=== PATIENT | male | born 1960 | race Caucasian/White ===

== ENCOUNTER → 2016-06-07 | Outpatient (CLI) | payer BC ==
--- NOTE | 2016-06-08 07:17 | XR ---
EXAMINATION TYPE: XR shoulder complete RT DATE OF EXAM: 06/07/2016 2:21 PM COMPARISON: NONE HISTORY: Pain The osseous structures are intact. There is no acute fracture or dislocation. The AC joint is mildl y narrowed with mild hypertrophic change. IMPRESSION: 1. Mild AC joint arthropathy.
--- NOTE | 2016-06-08 07:19 | XR ---
EXAMINATION TYPE: XR cervical spine limited DATE OF EXAM: 06/07/2016 2:21 PM COMPARISON: NONE HISTORY: Pain Odontoid, frontal, lateral, and bilateral oblique views of the cervical spine are submitted. The odontoid is intact. There are no compression deformities. The prevertebral soft tissue structur es are within normal limits. Diffuse osteopenia noted. Suggestive of interstitial lung disease invol ving the lung apices. There is severe degenerative disc disease C5-6 and C6-C7. Facet arthropathy noted. IMPRESSION: 1. Severe degenerative disc disease C5-C6 and C6-C7 with facet arthropathy. Recommend follow-up MRI..
== END | disposition home or self-care (01) ==
LOC: RADXRYALE 14:02
PROVIDERS: ATTEND Family Medicine
DX: Z68.27 Body mass index [BMI] 27.0-27.9, adult (principal); M12.811 Other specific arthropathies, not elsewhere classified, right shoulder; M50.322 Other cervical disc degeneration at C5-C6 level; M50.323 Other cervical disc degeneration at C6-C7 level; M12.88 Other specific arthropathies, not elsewhere classified, other specified site
CPT/HCPCS: 72040

== ENCOUNTER 2022-03-01 20:10 | Inpatient (IN) | payer BC, OTHER ==
[2022-03-01] MEDS ORDERED: SODIUM CHLORIDE 0.9% 1,000 ML IV STA (20:33)
[2022-03-01] MEDS ORDERED: ASPIRIN 81 MG PO STA (20:33)
[2022-03-01] MEDS ORDERED: HEPARIN SODIUM 1,000 UN/ML (10ML VL) IV ONE (20:33)
[2022-03-01 20:48] LABS: HCT 46.4 % (39.0-53.0); HGB 14.7 gm/dL (13.0-17.5); Hypochromasia Moderate; MCH 27.9 pg (25.0-35.0); MCHC 31.6 g/dL (31.0-37.0); MCV 88.4 fL (80.0-100.0); Mean Platelet Volume 8.9; Platelet Count 470 k/uL (150-450); RBC 5.25 m/uL (4.30-5.90); RDW 13.1 % (11.5-15.5); WBC 36.7 k/uL (3.8-10.6)
[2022-03-01] MEDS: DILTIAZEM 125 MG in SODIUM CHLORIDE 0.9% 100 ML IV SCH (20:51)
[2022-03-01 20:59] LABS: ALT 18 U/L (4-49); AST 18 U/L (17-59); African American GFR (CKD) >90 (>60 ml/min/1.73 sqM); Albumin 3.5 g/dL (3.5-5.0); Alkaline Phosphatase 154 U/L (38-126); Anion Gap 32 mmol/L; Blood Urea Nitrogen 25 mg/dL (9-20); Calcium 8.9 mg/dL (8.4-10.2); Chloride 87 mmol/L (98-107); Magnesium 2.5 mg/dL (1.6-2.3); Non-African American GFR(CKD) >90 (>60 ml/min/1.73 sqM); Sodium 128 mmol/L (137-145); Total Bilirubin 0.8 mg/dL (0.2-1.3); Total Protein 6.9 g/dL (6.3-8.2)
[2022-03-01 21:00] LABS: Amphetamine Screen,Urine Not Detected (NotDetected); Barbiturate Screen,Urine Not Detected (NotDetected); Benzodiazepines Screen,Urine Not Detected (NotDetected); Cocaine Screen,Urine Not Detected (NotDetected); Methadone Screen, Urine Not Detected (NotDetected); Opiate Screen,Urine Not Detected (NotDetected); Oxycodone Screen, Urine Not Detected (NotDetected); Phencyclidine Screen,Urine Not Detected (NotDetected); Tricyclic Antidepressant,Urine Not Detected (NotDetected); Urn Cannabinoid Scrn Not Detected (NotDetected)
[2022-03-01 21:02] LABS: Appearance,Urine Clear (Clear); Bacteria,Urine Occasional /hpf; Bilirubin,Urine Negative (Negative); Blood,Urine Moderate (Negative); Color,Urine Colorless; Glucose,Urine (UA) 4+ (Negative); Hyaline Casts,Urine 7 /lpf (0-2); Leukocyte Esterase,Urine Moderate (Negative); Mucus,Urine Rare /hpf; Nitrite,Urine Negative (Negative); Protein,Urine Trace (Negative); RBC,Urine 15 /hpf (0-5); Specific Gravity,Urine 1.017 (1.001-1.035); Urobilinogen,Urine <2.0 mg/dL (<2.0); WBC,Urine 56 /hpf (0-5)
[2022-03-01 21:03] LABS: Ketones,Urine 4+ (Negative)
[2022-03-01 21:14] LABS: INR 1.1 (<1.2); Partial Thromboplastin Time 23.2 sec (22.0-30.0); Prothrombin Time 11.4 sec (9.0-12.0)
[2022-03-01 21:22] LABS: Band Neutrophils % 6 %; Lymphocytes # (M) 0.73 k/uL (1.0-4.8); Monocytes # (M) 0.73 k/uL (0-1.0); Myelocytes # (M) 0.37 k/uL (0); Myelocytes % 1 %; Neutrophils % (M) 89 %; Nucleated Red Blood Cells 0 /100 WBC (0-0); Total Cells Counted 100
[2022-03-01 21:25] LABS: Carbon Dioxide 9 mmol/L (22-30); Glucose 564 mg/dL (74-99); Potassium 2.7 mmol/L (3.5-5.1)
[2022-03-01] MEDS: HEPARIN SOD,PORK IN 0.45% NACL 25,000 UNIT in 0.45% NACL 1 250ML.BAG IV SCH (21:44)
[2022-03-01] MEDS ORDERED: ADENOSINE 3 MG/ML 2 ML VIAL IVP STA ×3 (21:49→21:50)
--- NOTE | 2022-03-01 22:01 | XR ---
EXAMINATION TYPE: XR chest 1V portable DATE OF EXAM: 03/01/2022 9:45 PM COMPARISON: None TECHNIQUE: XR chest 1V portable Frontal view of the chest. CLINICAL INDICATION:Male, 62 years old with history of dysrhythmia; FINDINGS: Lungs/Pleura: There is no evidence of pleural effusion, focal consolidation, or pneumothorax. Eventr ation of the right diaphragm. Pulmonary vascularity: Unremarkable. Heart/mediastinum: Cardiomediastinal silhouette is unremarkable. Musculoskeletal: No acute osseous pathology. IMPRESSION: No acute cardiopulmonary disease/process.
[2022-03-01] MEDS: POTASSIUM CHLORIDE 10 MEQ in WATER FOR INJECTION 1 100ML.BAG IVPB SCH (22:24)
[2022-03-01] MEDS ORDERED: TEMAZEPAM 7.5 MG CAP PO PRN (23:14)
[2022-03-01] MEDS ORDERED: NALOXONE 0.4 MG/ML 1 ML VIAL IV PRN (23:14)
[2022-03-01] MEDS ORDERED: ALPRAZolam 0.25 MG TAB PO PRN (23:14)
[2022-03-01] MEDS ORDERED: ONDANSETRON 4 MG/2 ML VIAL IVP PRN (23:14)
--- NOTE | 2022-03-01 23:14 | ED ---
Arrhythmia/Palpitations HPI - General Chief Complaint: Arrhythmia/Palpitations Stated Complaint: Afib/RVR Time Seen by Provider: 03/01/22 20:12 Source: EMS Mode of arrival: EMS Limitations: no limitations - History of Present Illness Initial Comments: Patient presents with palpitations or shortness of breath. His symptoms have been present for couple hours. Nothing makes it better or worse. He wasn't doing anything in this began. He denies any sick contacts. He has no pain or swelling the arms or legs. He has no nausea or vomiting. He has no diaphoresis. He has no focal weakness. He has no headache. He has no neck pain or stiffness. - Related Data Home Medications Medication Instructions Recorded Confirmed Dextroamphetamine/Amphetamine 30 mg PO BID 03/01/22 03/01/22 [Dextroamphetamine/Amphetamine 30 mg Tab] Allergies Allergy/AdvReac Type Severity Reaction Status Date / Time No Known Allergies Allergy Verified 03/01/22 22:26 Review of Systems ROS Statement: Those systems with pertinent positive or pertinent negative responses have been documented in the HPI. ROS Other: All systems not noted in ROS Statement are negative. Past Medical History Past Medical History: Diabetes Mellitus History of Any Multi-Drug Resistant Organisms: None Reported Past Surgical History: Orthopedic Surgery Past Psychological History: No Psychological Hx Reported Smoking Status: Current every day smoker Past Alcohol Use History: Rare Past Drug Use History: None Reported General Exam Limitations: no limitations General appearance: alert, in no apparent distress Head exam: Present: atraumatic, normocephalic, normal inspection Eye exam: Present: normal appearance, PERRL, EOMI. Absent: scleral icterus, conjunctival injection, periorbital swelling ENT exam: Present: normal exam, mucous membranes moist Neck exam: Present: normal inspection. Absent: tenderness, meningismus, lymphadenopathy Respiratory exam: Present: normal lung sounds bilaterally. Absent: respiratory distress, wheezes, rales, rhonchi, stridor Cardiovascular Exam: Present: tachycardia, irregular rhythm, normal heart so unds. Absent: systolic murmur, diastolic murmur, rubs, gallop, clicks GI/Abdominal exam: Present: soft, normal bowel sounds. Absent: distended, tenderness, guarding, rebound, rigid Extremities exam: Present: normal inspection, full ROM, normal capillary refill. Absent: tenderness, pedal edema, joint swelling, calf tenderness Back exam: Present: normal inspection Neurological exam: Present: alert, oriented X3, CN II-XII intact Psychiatric exam: Present: normal affect, normal mood Skin exam: Present: warm, dry, intact, normal color. Absent: rash Course Vital Signs 03/01/22 03/01/22 03/01/22 20:11 20:37 20:40 Temperature 97.9 F Pulse Rate 170 H 105 H Respiratory 18 24 22 Rate Blood Pressure 146/89 197/107 188/95 O2 Sat by Pulse 98 99 Oximetry 03/01/22 03/01/22 03/01/22 21:00 21:20 21:40 Temperature Pulse Rate 107 H 126 H 113 H Respiratory 22 24 Rate Blood Pressure 184/103 178/68 150/92 O2 Sat by Pulse 100 Oximetry 03/01/22 21:57 Temperature Pulse Rate 113 H Respiratory Rate Blood Pressure O2 Sat by Pulse Oximetry EKG Findings - EKG Comments: EKG Findings:: Twelve-lead EKG shows ventricular 171 bpm, no P waves, QRS comp venita are wide, no ST elevation or depression, interpreted by me as SVT. Medical Decision Making - Medical Decision Making Patient presents with SVT. He is given subsequent doses of IV adenosine. Patient ultimately converted to atrial fibrillation with rapid ventricular response. Subsequently I started the patient on IV heparin and IV Cardizem. Patient will be admitted to the hospital. - Lab Data Result diagrams: 03/01/22 20:15 03/01/22 20:15 Lab Results 03/01/22 03/01/22 03/01/22 Range/Units 20:15 20:15 20:15 WBC 36.7 H (3.8-10.6) k/uL RBC 5.25 (4.30-5.90) m/uL Hgb 14.7 (13.0-17.5) gm/dL Hct 46.4 (39.0-53.0) % MCV 88.4 (80.0-100.0) fL MCH 27.9 (25.0-35.0) pg MCHC 31.6 (31.0-37.0) g/dL RDW 13.1 (11.5-15.5) % Plt Count 470 H (150-450) k/uL MPV 8.9 Neutrophils % Not Reportable Neutrophils % (Manual) 89 % Band Neuts % (Manual) 6 % Lymphocytes % Not Reportable Lymphocytes % (Manual) 2 % Monocytes % Not Reportable Monocytes % (Manual) 2 % Eosinophils % Not Reportable Basophils % Not Reportable Myelocytes % 1 % Neutrophils # Not Reportable Neutrophils # (Manual) 34.80 H (1.3-7.7) k/uL Lymphocytes # Not Reportable Lymphocytes # (Manual) 0.73 L (1.0-4.8) k/uL Monocytes # Not Reportable Monocytes # (Manual) 0.73 (0-1.0) k/uL Eosinophils # Not Reportable Basophils # Not Reportable Myelocytes # (Manual) 0.37 H (0) k/uL Nucleated RBCs 0 (0-0) /100 WBC Manual Slide Review Performed Hypochromasia Moderate PT 11.4 (9.0-12.0) sec INR 1.1 (<1.2) APTT 23.2 (22.0-30.0) sec Sodium 128 L (137-145) mmol/L Potassium 2.7 L* (3.5-5.1) mmol/L Chloride 87 L (98-107) mmol/L Carbon Dioxide 9 L* (22-30) mmol/L Anion Gap 32 mmol/L BUN 25 H (9-20) mg/dL Creatinine 0.89 (0.66-1.25) mg/dL Est GFR (CKD-EPI)AfAm >90 (>60 ml/min/1.73 sqM) Est GFR (CKD-EPI)NonAf >90 (>60 ml/min/1.73 sqM) Glucose 564 H* (74-99) mg/dL Calcium 8.9 (8.4-10.2) mg/dL Magnesium 2.5 H (1.6-2.3) mg/dL Total Bilirubin 0.8 (0.2-1.3) mg/dL AST 18 (17-59) U/L ALT 18 (4-49) U/L Alkaline Phosphatase 154 H (38-126) U/L Troponin I (0.000-0.034) ng/mL Total Protein 6.9 (6.3-8.2) g/dL Albumin 3.5 (3.5-5.0) g/dL Urine Color Urine Appearance (Clear) Urine pH (5.0-8.0) Ur Specific Dyer (1.001-1.035) Urine Protein (Negative) Urine Glucose (UA) (Negative) Urine Ketones (Negative) Urine Blood (Negative) Urine Nitrite (Negative) Urine Bilirubin (Negative) Urine Urobilinogen (<2.0) mg/dL Ur Leukocyte Esterase (Negative) Urine RBC (0-5) /hpf Urine WBC (0-5) /hpf Urine Bacteria (None) /hpf Hyaline Casts (0-2) /lpf Urine Mucus (None) /hpf Urine Opiates Screen (NotDetected) Ur Oxycodone Screen (NotDetected) Urine Methadone Screen (NotDetected) Ur Propoxyphene Screen (NotDetected) Ur Barbiturates Screen (NotDetected) U Tricyclic Antidepress (NotDetected) Ur Phencyclidine Scrn (NotDetected) Ur Amphetamines Screen (NotDetected) U Methamphetamines Scrn (NotDetected) U Benzodiazepines Scrn (NotDetected) Urine Cocaine Screen (NotDetected) U Marijuana (THC) Screen (NotDetected) 03/01/22 03/01/22 Range/Units 20:15 20:37 WBC (3.8-10.6) k/uL RBC (4.30-5.90) m/uL Hgb (13.0-17.5) gm/dL Hct (39.0-53.0) % MCV (80.0-100.0) fL MCH (25.0-35.0) pg MCHC (31.0-37.0) g/dL RDW (11.5-15.5) % Plt Count (150-450) k/uL MPV Neutrophils % Neutrophils % (Manual) % Band Neuts % (Manual) % Lymphocytes % Lymphocytes % (Manual) % Monocytes % Monocytes % (Manual) % Eosinophils % Basophils % Myelocytes % % Neutrophils # Neutrophils # (Manual) (1.3-7.7) k/uL Lymphocytes # Lymphocytes # (Manual) (1.0-4.8) k/uL Monocytes # Monocytes # (Manual) (0-1.0) k/uL Eosinophils # Basophils # Myelocytes # (Manual) (0) k/uL Nucleated RBCs (0-0) /100 WBC Manual Slide Review Hypochromasia PT (9.0-12.0) sec INR (<1.2) APTT (22.0-30.0) sec Sodium (137-145) mmol/L Potassium (3.5-5.1) mmol/L Chloride (98-107) mmol/L Carbon Dioxide (22-30) mmol/L Anion Gap mmol/L BUN (9-20) mg/dL Creatinine (0.66-1.25) mg/dL Est GFR (CKD-EPI)AfAm (>60 ml/min/1.73 sqM) Est GFR (CKD-EPI)NonAf (>60 ml/min/1.73 sqM) Glucose (74-99) mg/dL Calcium (8.4-10.2) mg/dL Magnesium (1.6-2.3) mg/dL Total Bilirubin (0.2-1.3) mg/dL AST (17-59) U/L ALT (4-49) U/L Alkaline Phosphatase (38-126) U/L Troponin I 0.028 (0.000-0.034) ng/mL Total Protein (6.3-8.2) g/dL Albumin (3.5-5.0) g/dL Urine Color Colorless Urine Appearance Clear (Clear) Urine pH 5.0 (5.0-8.0) Ur Specific Dyer 1.017 (1.001-1.035) Urine Protein Trace H (Negative) Urine Glucose (UA) 4+ H (Negative) Urine Ketones 4+ H (Negative) Urine Blood Moderate H (Negative) Urine Nitrite Negative (Negative) Urine Bilirubin Negative (Negative) Urine Urobilinogen <2.0 (<2.0) mg/dL Ur Leukocyte Esterase Moderate H (Negative) Urine RBC 15 H (0-5) /hpf Urine WBC 56 H (0-5) /hpf Urine Bacteria Occasional H (None) /hpf Hyaline Casts 7 H (0-2) /lpf Urine Mucus Rare H (None) /hpf Urine Opiates Screen Not Detected (NotDetected) Ur Oxycodone Screen Not Detected (NotDetected) Urine Methadone Screen Not Detected (NotDetected) Ur Propoxyphene Screen Not Detected (NotDetected) Ur Barbiturates Screen Not Detected (NotDetected) U Tricyclic Antidepress Not Detected (NotDetected) Ur Phencyclidine Scrn Not Detected (NotDetected) Ur Amphetamines Screen Not Detected (NotDetected) U Methamphetamines Scrn Not Detected (NotDetected) U Benzodiazepines Scrn Not Detected (NotDetected) Urine Cocaine Screen Not Detected (NotDetected) U Marijuana (THC) Screen Not Detected (NotDetected) Critical Care Time Critical Care Time: Yes (Initiation of IV heparin and Cardizem) Total Critical Care Time: 35 Disposition Clinical Impression: Atrial fibrillation Disposition: ADMITTED IP TO THIS [facility] Condition: Serious Is patient prescribed a controlled substance at d/c from ED?: No Referrals: Benjamin Mendez MD [Primary Care Provider] - 1-2 days
[2022-03-01 23:38] LABS: Glucose,Whole Blood 516 mg/dL (70-110)
[2022-03-02] MEDS: POTASSIUM CHLORIDE 10 MEQ in WATER FOR INJECTION 1 100ML.BAG IVPB SCH ×9 (00:10→14:10)
[2022-03-02] MEDS: SODIUM CHLORIDE 0.9% 1,000 ML IV SCH ×9 (00:25→22:19)
[2022-03-02] MEDS ORDERED: SODIUM CHLORIDE 0.9% 1,000 ML IV STA (01:27)
[2022-03-02 01:47] LABS: VBG PH 7.21 (7.31-7.41)
[2022-03-02 01:57] LABS: ALT 16 U/L (4-49); AST 14 U/L (17-59); African American GFR (CKD) >90 (>60 ml/min/1.73 sqM); Albumin 2.7 g/dL (3.5-5.0); Alkaline Phosphatase 118 U/L (38-126); Anion Gap 25 mmol/L; Blood Urea Nitrogen 31 mg/dL (9-20); Calcium 8.2 mg/dL (8.4-10.2); Chloride 95 mmol/L (98-107); Glucose 490 mg/dL (74-99); Magnesium 2.3 mg/dL (1.6-2.3); Non-African American GFR(CKD) >90 (>60 ml/min/1.73 sqM); Phosphorus 2.9 mg/dL (2.5-4.5); Potassium 3.3 mmol/L (3.5-5.1); Sodium 129 mmol/L (137-145); Total Bilirubin 0.5 mg/dL (0.2-1.3); Total Protein 5.7 g/dL (6.3-8.2)
[2022-03-02 02:00] LABS: Carbon Dioxide 9 mmol/L (22-30)
[2022-03-02] MEDS: INSULIN REGULAR 100 UNIT in SODIUM CHLORIDE 0.9% 100 ML IV SCH ×2 (03:04→17:30)
[2022-03-02 04:02] LABS: Glucose,Whole Blood 399 mg/dL (70-110)
[2022-03-02 04:29] LABS: African American GFR (CKD) >90 (>60 ml/min/1.73 sqM); Anion Gap 24 mmol/L; Blood Urea Nitrogen 33 mg/dL (9-20); Chloride 99 mmol/L (98-107); Glucose 394 mg/dL (74-99); Non-African American GFR(CKD) >90 (>60 ml/min/1.73 sqM); Sodium 131 mmol/L (137-145)
[2022-03-02 04:43] LABS: Carbon Dioxide 8 mmol/L (22-30); Potassium 2.5 mmol/L (3.5-5.1)
[2022-03-02] MEDS ORDERED: Potassium Replacement Protocol 1 EACH MISC MISCELLANE PRN (05:17)
[2022-03-02 05:23] LABS: Glucose,Whole Blood 422 mg/dL (70-110)
[2022-03-02 06:39] LABS: Glucose,Whole Blood 374 mg/dL (70-110)
[2022-03-02 06:47] LABS: Basophils # (A) 0.2 k/uL (0-0.2); Basophils % (A) 1 %; Eosinophils % (A) 0 %; HCT 33.9 % (39.0-53.0); Hypochromasia Moderate; Lymphocytes # (A) 0.8 k/uL (1.0-4.8); Lymphocytes % (A) 2 %; MCH 28.4 pg (25.0-35.0); MCHC 32.5 g/dL (31.0-37.0); MCV 87.3 fL (80.0-100.0); Mean Platelet Volume 7.8; Monocytes # (A) 0.9 k/uL (0-1.0); Monocytes % (A) 3 %; Neutrophils # (A) 30.1 k/uL (1.3-7.7); Neutrophils % (A) 94 %; Platelet Count 383 k/uL (150-450); RBC 3.89 m/uL (4.30-5.90); RDW 13.2 % (11.5-15.5); WBC 32.1 k/uL (3.8-10.6)
[2022-03-02 07:05] LABS: Glucose,Whole Blood 499 mg/dL (70-110)
[2022-03-02] MEDS: POTASSIUM BICARBONATE/CIT AC 20 MEQ TABLET.EFF PO SCH ×3 (07:28→12:19)
--- NOTE | 2022-03-02 07:39 | XR ---
EXAMINATION TYPE: XR chest 1V portable DATE OF EXAM: 03/02/2022 7:29 AM COMPARISON: Chest radiographs from 03/01/2022. TECHNIQUE: XR chest 1V portable Frontal view of the chest. CLINICAL INDICATION:Male, 62 years old with history of NG tube placement; FINDINGS: Lungs/Pleura: There is no evidence of pleural effusion, focal consolidation, or pneumothorax. Eventr ation of the right diaphragm. Pulmonary vascularity: Unremarkable. Heart/mediastinum: Cardiomediastinal silhouette is unremarkable. Musculoskeletal: No acute osseous pathology. Other findings: None Lines/Tubes: Nasogastric tube with its distal tip and side-port projecting under the diaphragm in appropriate posi tion. IMPRESSION: 1. No acute cardiopulmonary disease/process. 2. NG tube in appropriate position.
[2022-03-02] MEDS: HEPARIN SODIUM 1,000 UN/ML (10ML VL) IV PRN ×3 (07:48→19:01)
[2022-03-02] MEDS: PANTOPRAZOLE 40 MG/10 ML VIAL IV SCH (07:48)
[2022-03-02 07:55] LABS: Rouleaux Present
[2022-03-02 08:07] LABS: Glucose,Whole Blood 400 mg/dL (70-110)
[2022-03-02 08:51] LABS: African American GFR (CKD) >90 (>60 ml/min/1.73 sqM); Anion Gap 22 mmol/L; Blood Urea Nitrogen 40 mg/dL (9-20); Chloride 105 mmol/L (98-107); Glucose 352 mg/dL (74-99); Non-African American GFR(CKD) >90 (>60 ml/min/1.73 sqM); Phosphorus 2.2 mg/dL (2.5-4.5); Potassium 3.4 mmol/L (3.5-5.1); Sodium 135 mmol/L (137-145)
[2022-03-02 08:54] LABS: Appearance,Urine Cloudy (Clear); Bacteria,Urine Rare /hpf; Bilirubin,Urine Negative (Negative); Blood,Urine Trace (Negative); Color,Urine Light Yellow; Glucose,Urine (UA) 4+ (Negative); Leukocyte Esterase,Urine Large (Negative); Mucus,Urine Rare /hpf; Nitrite,Urine Negative (Negative); PH, Urine 5.5 (5.0-8.0); Protein,Urine Trace (Negative); RBC,Urine 5 /hpf (0-5); Specific Gravity,Urine 1.017 (1.001-1.035); Squamous Epithelial Cell,Urine <1 /hpf (0-4); Urobilinogen,Urine <2.0 mg/dL (<2.0); WBC,Urine 98 /hpf (0-5)
[2022-03-02 08:54] LABS: Carbon Dioxide 8 mmol/L (22-30)
[2022-03-02 08:57] LABS: Ketones,Urine 4+ (Negative)
[2022-03-02 09:05] LABS: Glucose,Whole Blood 288 mg/dL (70-110)
[2022-03-02] MEDS: METOPROLOL TARTRATE 50 MG TAB PO SCH ×2 (09:31→20:05)
[2022-03-02 09:54] LABS: Glucose,Whole Blood 267 mg/dL (70-110)
[2022-03-02 11:05] LABS: Glucose,Whole Blood 163 mg/dL (70-110)
--- NOTE | 2022-03-02 11:30 | P.CNPUL ---
History of Present Illness Consult date: 03/02/22 Requesting physician: Jerardo Guillen Reason for consult: dyspnea, other (Critical care management) Chief complaint: Palpitations, shortness of breath History of present illness: This is 62-year-old male patient who follows with Dr. Mendez as his primary care provider. He has history of diabetes mellitus, chronic and ongoing tobacco dependence, ADHD. He presented here to the emergency room yesterday with a 2 hour history of palpitations and shortness of breath. No precipitating factors. No relieving factors. No nausea vomiting. No chest pain. No dizziness or lightheadedness. He was felt to be in SVT and was treated with a R[place] with subsequent conversion to atrial fibrillation with a rapid ventricular response. The patient was also noted to be in diabetic ketoacidosis with initial glucose of 564. Positive acetone. Drug screen negative. White count 32. Hemoglobin 11.0. He was 383. Sodium 135. Potassium 3.4. Chloride 105. Bicarbonate8. Anion gap 22. BUN 40. Creatinine 0.67. Troponin negative 2. ProBNP 1270. Urinalysis with 4+ ketones, large leukocyte esterase, few WBCs. Chest x-ray reveals no acute pulmonary process. Nasogastric tube in place. The patient is seen today in the ICU. He is resting fairly comfortably in bed. He is maintaining good O2 saturations in the 90s on room air. Arousable. He is continued on Cardizem drip at 5 mg per hour. Insulin drip at 8 units per hour. Heparin drip per weight base protocol. 0.9% normal saline at 200 mL per hour. Remains in the DKA protocol. Currently on ceftriaxone. Pro-calcitonin pending. Review of Systems REVIEW OF SYSTEMS: CONSTITUTIONAL: Denies any recent significant weight loss or weight gain. EYES: Denies change in vision. EARS, NOSE, MOUTH, THROAT: Denies headaches, denies sore throat. CARDIOVASCULAR: Positive for palpitations or syncopal episodes. RESPIRATORY: Positive for shortness of breath, no cough, congestion or hemoptysis. GASTROINTESTINAL: Denies change in appetite, denies abdominal pain GENITOURINARY: Denies hematuria, denies infections. MUSKULOSKELETAL: Denies pain, denies swelling. INTEGUMENTARY: Denies rash, denies eczema. NEUROLOGICAL: Denies recent memory loss, no recent seizure activity. PSYCHIATRIC: Denies anxiety, denies depression. HEMATOLOGIC/LYMPHATIC: Denies anemia, denies enlarged lymph nodes. Past Medical History Past Medical History: Diabetes Mellitus History of Any Multi-Drug Resistant Organisms: None Reported Past Surgical History: Orthopedic Surgery Additional Past Surgical History / Comment(s): back pain son states pt recently "slipped a disc" taking gabapentin. Past Psychological History: No Psychological Hx Reported Smoking Status: Current every day smoker Past Alcohol Use History: Rare Past Drug Use History: None Reported Medications and Allergies Home Medications Medication Instructions Recorded Confirmed Type Dextroamphetamine/Amphetamine 30 mg PO BID 03/01/22 03/01/22 History [Dextroamphetamine/Amphetamine 30 mg Tab] sitaGLIPtin [Januvia] 100 mg PO DAILY 03/02/22 03/02/22 History Allergies Allergy/AdvReac Type Severity Reaction Status Date / Time No Known Allergies Allergy Verified 03/01/22 22:26 Physical Exam Vitals: Vital Signs Temp Pulse Resp BP Pulse Ox 03/02/22 11:00 101 H 45 H 108/72 98 03/02/22 10:40 105 H 46 H 112/69 98 03/02/22 10:20 102 H 43 H 118/71 98 03/02/22 10:00 101 H 45 H 119/71 98 03/02/22 09:40 116 H 34 H 130/71 98 03/02/22 09:20 108 H 47 H 118/72 97 03/02/22 09:00 113 H 45 H 122/62 98 03/02/22 08:40 112 H 41 H 112/73 98 03/02/22 08:20 113 H 45 H 130/86 98 03/02/22 08:00 97.8 F 114 H 44 H 140/79 97 03/02/22 07:40 112 H 45 H 116/79 97 03/02/22 07:20 114 H 42 H 124/71 98 03/02/22 07:13 97.9 F 112 H 42 H 110/91 98 03/02/22 06:40 143/74 03/02/22 06:00 113 H 46 H 153/72 03/02/22 05:40 106 H 45 H 152/81 03/02/22 05:20 106 H 40 H 146/72 100 03/02/22 05:00 105 H 44 H 154/74 100 03/02/22 04:40 105 H 43 H 149/78 03/02/22 04:20 98.3 F 104 H 46 H 148/83 03/02/22 04:00 105 H 45 H 158/81 03/02/22 03:40 105 H 44 H 172/87 03/02/22 03:20 109 H 43 H 138/85 03/02/22 03:00 106 H 45 H 173/80 03/02/22 02:40 112 H 36 H 158/84 99 03/02/22 02:20 110 H 40 H 152/81 100 03/02/22 02:00 105 H 43 H 160/85 98 03/02/22 01:40 106 H 42 H 158/88 99 03/02/22 01:20 112 H 36 H 99 03/02/22 01:00 108 H 36 H 134/90 98 03/02/22 00:40 112 H 40 H 158/83 99 03/02/22 00:20 108 H 40 H 130/76 99 03/02/22 00:00 110 H 32 H 153/109 03/01/22 23:40 113 H 26 H 174/82 03/01/22 23:20 110 H 26 H 164/106 03/01/22 23:00 107 H 24 157/100 03/01/22 22:40 109 H 22 147/91 03/01/22 22:20 113 H 24 145/90 03/01/22 22:00 109 H 24 144/93 03/01/22 21:57 113 H 03/01/22 21:40 113 H 150/92 03/01/22 21:20 126 H 24 178/68 03/01/22 21:00 107 H 22 184/103 100 03/01/22 20:40 105 H 22 188/95 99 03/01/22 20:37 24 197/107 03/01/22 20:11 97.9 F 170 H 18 146/89 98 Intake and Output 03/01/22 03/02/22 03/02/22 22:59 06:59 14:59 Intake Total 12.348 1101.750 Output Total 1560 Balance 12.348 -458.250 Intake: IV 1000 Sodium Chloride 0.9% 1, 1000 000 ml @ 200 mls/hr IV . Q5H [facility] Rx#:[id number] Intake, IV Titration 12.348 101.750 Amount Heparin Sod,Pork in 0.45% 83.893 NaCl 25,000 unit In 0.45 % NaCl 1 250ml.bag @ 12 UNITS/KG/HR 8.546 mls/hr IV .Q24H [facility] Rx#: [id number] Insulin Regular 100 unit 12.348 17.857 In Sodium Chloride 0.9% 100 ml @ 0.1 UNITS/KG/HR 7.193 mls/hr IV .Q14H3M [facility] Rx#:[id number] Output: Urine 1560 Other: Voiding Method Indwelling Catheter Weight 71.214 kg 71.214 kg GENERAL EXAM: Alert, disheveled, thin 62-year-old male, on room air, fairly comfortable in no apparent distress. HEAD: Normocephalic. EYES: Normal reaction of pupils, equal size. NOSE: Clear with pink turbinates. THROAT: No erythema or exudates. NECK: No masses, no JVD. CHEST: No chest wall deformity. LUNGS: Equal air entry with no crackles, wheeze, rhonchi or dullness. CVS: S1 and S2 normal with no audible murmur, irregular rhythm. ABDOMEN: No hepatosplenomegaly, normal bowel sounds, no guarding or rigidity. SPINE: No scoliosis or deformity SKIN: No rashes CENTRAL NERVOUS SYSTEM: No focal deficits, tone is normal in all 4 extremities. EXTREMITIES: There is no peripheral edema. No clubbing, no cyanosis. Peripheral pulses are intact. Results - Laboratory Findings CBC and BMP: 03/02/22 06:40 03/02/22 07:54 PT/INR, D-dimer PT 11.4 sec (9.0-12.0) 03/01/22 20:15 INR 1.1 (<1.2) 03/01/22 20:15 Abnormal lab findings: Abnormal Labs 03/01/22 03/01/22 03/01/22 20:15 20:15 20:37 WBC 36.7 H RBC Hgb Hct Plt Count 470 H Neutrophils # Neutrophils # (Manual) 34.80 H Lymphocytes # Lymphocytes # (Manual) 0.73 L Myelocytes # (Manual) 0.37 H VBG pH VBG pCO2 VBG HCO3 Sodium 128 L Potassium 2.7 L* Chloride 87 L Carbon Dioxide 9 L* BUN 25 H Glucose 564 H* POC Glucose (mg/dL) Calcium Phosphorus Magnesium 2.5 H AST Alkaline Phosphatase 154 H Total Protein Albumin Urine Protein Trace H Urine Glucose (UA) 4+ H Urine Ketones 4+ H Urine Blood Moderate H Ur Leukocyte Esterase Moderate H Urine RBC 15 H Urine WBC 56 H Urine WBC Clumps Urine Bacteria Occasional H Hyaline Casts 7 H Urine Mucus Rare H 03/01/22 03/02/22 03/02/22 23:36 01:18 01:24 WBC RBC Hgb Hct Plt Count Neutrophils # Neutrophils # (Manual) Lymphocytes # Lymphocytes # (Manual) Myelocytes # (Manual) VBG pH 7.21 L VBG pCO2 21 L VBG HCO3 8 L* Sodium 129 L Potassium 3.3 L Chloride 95 L Carbon Dioxide 9 L* BUN 31 H Glucose 490 H POC Glucose (mg/dL) 516 H Calcium 8.2 L Phosphorus Magnesium AST 14 L Alkaline Phosphatase Total Protein 5.7 L Albumin 2.7 L Urine Protein Urine Glucose (UA) Urine Ketones Urine Blood Ur Leukocyte Esterase Urine RBC Urine WBC Urine WBC Clumps Urine Bacteria Hyaline Casts Urine Mucus 03/02/22 03/02/22 03/02/22 03:59 03:59 04:01 WBC RBC Hgb Hct Plt Count Neutrophils # Neutrophils # (Manual) Lymphocytes # Lymphocytes # (Manual) Myelocytes # (Manual) VBG pH VBG pCO2 VBG HCO3 Sodium 131 L Potassium 2.5 L* Chloride Carbon Dioxide 8 L* BUN 33 H Glucose 394 H POC Glucose (mg/dL) 399 H Calcium Phosphorus 2.3 L Magnesium AST Alkaline Phosphatase Total Protein Albumin Urine Protein Urine Glucose (UA) Urine Ketones Urine Blood Ur Leukocyte Esterase Urine RBC Urine WBC Urine WBC Clumps Urine Bacteria Hyaline Casts Urine Mucus 03/02/22 03/02/22 03/02/22 05:22 06:37 06:40 WBC 32.1 H RBC 3.89 L Hgb 11.0 L D Hct 33.9 L Plt Count Neutrophils # 30.1 H Neutrophils # (Manual) Lymphocytes # 0.8 L Lymphocytes # (Manual) Myelocytes # (Manual) VBG pH VBG pCO2 VBG HCO3 Sodium Potassium Chloride Carbon Dioxide BUN Glucose POC Glucose (mg/dL) 422 H 374 H Calcium Phosphorus Magnesium AST Alkaline Phosphatase Total Protein Albumin Urine Protein Urine Glucose (UA) Urine Ketones Urine Blood Ur Leukocyte Esterase Urine RBC Urine WBC Urine WBC Clumps Urine Bacteria Hyaline Casts Urine Mucus 03/02/22 03/02/22 03/02/22 07:03 07:54 08:06 WBC RBC Hgb Hct Plt Count Neutrophils # Neutrophils # (Manual) Lymphocytes # Lymphocytes # (Manual) Myelocytes # (Manual) VBG pH VBG pCO2 VBG HCO3 Sodium 135 L Potassium 3.4 L Chloride Carbon Dioxide 8 L* BUN 40 H Glucose 352 H POC Glucose (mg/dL) 499 H 400 H Calcium Phosphorus 2.2 L Magnesium AST Alkaline Phosphatase Total Protein Albumin Urine Protein Urine Glucose (UA) Urine Ketones Urine Blood Ur Leukocyte Esterase Urine RBC Urine WBC Urine WBC Clumps Urine Bacteria Hyaline Casts Urine Mucus 03/02/22 03/02/22 03/02/22 08:12 09:05 09:52 WBC RBC Hgb Hct Plt Count Neutrophils # Neutrophils # (Manual) Lymphocytes # Lymphocytes # (Manual) Myelocytes # (Manual) VBG pH VBG pCO2 VBG HCO3 Sodium Potassium Chloride Carbon Dioxide BUN Glucose POC Glucose (mg/dL) 288 H 267 H Calcium Phosphorus Magnesium AST Alkaline Phosphatase Total Protein Albumin Urine Protein Trace H Urine Glucose (UA) 4+ H Urine Ketones 4+ H Urine Blood Trace H Ur Leukocyte Esterase Large H Urine RBC Urine WBC 98 H Urine WBC Clumps Few H Urine Bacteria Rare H Hyaline Casts Urine Mucus Rare H 03/02/22 11:04 WBC RBC Hgb Hct Plt Count Neutrophils # Neutrophils # (Manual) Lymphocytes # Lymphocytes # (Manual) Myelocytes # (Manual) VBG pH VBG pCO2 VBG HCO3 Sodium Potassium Chloride Carbon Dioxide BUN Glucose POC Glucose (mg/dL) 163 H Calcium Phosphorus Magnesium AST Alkaline Phosphatase Total Protein Albumin Urine Protein Urine Glucose (UA) Urine Ketones Urine Blood Ur Leukocyte Esterase Urine RBC Urine WBC Urine WBC Clumps Urine Bacteria Hyaline Casts Urine Mucus - Diagnostic Findings Chest x-ray: image reviewed Assessment and Plan Assessment: Acute diabetic ketoacidosis Leukocytosis Hypokalemia Anion gap metabolic acidosis secondary to above New onset atrial fibrillation with rapid ventricular response Urinary tract infection History of diabetes mellitus Chronic and ongoing tobacco dependence History of ADHD Plan: The patient was seen and evaluated Chest x-ray, EKG, labs and medications reviewed Stable from the pulmonary standpoint, on room air Continue Cardizem drip, heparin drip Continue insulin drip, DKA protocol Continue ceftriaxone, urine culture pending Pro calcitonin pending Replace electrolytes Continue to monitor here in the ICU We will continue to follow and make further recommendations based on his clinical status I have personally seen and examined the patient, performed the documentation and the assessment and plan as written. Number of minutes spent on the visit: 20.
[2022-03-02] MEDS: D5-0.45% NACL WITH KCL 20MEQ/L 1,000 ML IV SCH ×2 (11:49→18:37)
[2022-03-02 12:05] LABS: Glucose,Whole Blood 130 mg/dL (70-110)
--- NOTE | 2022-03-02 12:20 | CA ---
Transthoracic Echo Report Name: Misael Langley Age: 62 Gender: M : 1960 Exam Date: 03/02/2022 11:00 Exam Location: [facility] Echo Ht (in): 69 Wt (lb): 157 Ordering Physician: Shahid Maldonado MD ([id number]) Attending/Referring Phys: [employer] Product Manager Riya Oneil RDCS Procedure CPT: Indications: assess lv fuction dka, a flutter Cardiac Hx: Views obtained subcostal Technical Quality: Fair Contrast 1: Total Dose (mL): Contrast 2: Total Dose (mL): MEASUREMENTS (Male / Female) Normal Values 2D ECHO LV Diastolic Diameter PLAX 4.2 cm 4.2 - 5.9 / 3.9 - 5.3 cm LV Systolic Diameter PLAX 3.4 cm IVS Diastolic Thickness 1.4 cm 0.6 - 1.0 / 0.6 - 0.9 cm LVPW Diastolic Thickness 1.2 cm 0.6 - 1.0 / 0.6 - 0.9 cm LV Relative Wall Thickness 0.6 LA Systolic Diameter LX 4.4 cm 3.0 - 4.0 / 2.7 - 3.8 cm FINDINGS Left Ventricle Left ventricular ejection fraction is estimated at 55-60%. Right Ventricle Normal right ventricular size and function. Right Atrium Normal right atrial size. Left Atrium Left atrial size at the upper limits of normal. Mitral Valve Structurally normal mitral valve. Mild mitral regurgitation. Aortic Valve Trileaflet aortic valve. Tricuspid Valve Structurally normal tricuspid valve. Pulmonic Valve Pulmonic valve not well visualized. Pericardium Normal pericardium. Aorta Normal size aortic root and proximal ascending aorta. CONCLUSIONS Technically limited study. Normal left ventricle size and systolic function Previewed by: Dr. Bryon Taylor MD (Electronically Signed) Final Date: 02 March 2022 12:19
[2022-03-02 13:16] LABS: Glucose,Whole Blood 115 mg/dL (70-110)
[2022-03-02 13:57] LABS: Glucose,Whole Blood 148 mg/dL (70-110)
[2022-03-02] MEDS ORDERED: Phosphorus Replacement Protoco 1 EACH MISC MISCELLANE PRN (14:00)
[2022-03-02] MEDS: SODIUM PHOSPHATE 10 MMOL in SODIUM CHLORIDE 0.9% 250 ML IVPB SCH ×3 (14:59→17:29)
--- NOTE | 2022-03-02 15:06 | P.HPIM ---
History of Present Illness H&P Date: 03/02/22 Chief Complaint: Decreased responsiveness This is a 62-year-old patient, follows with Dr. Mendez. Chronic stable medical conditions include ADHD, herniated disc lower back, smoker. Patient's son at the bedside. Patient yesterday took his medication was going to the bathroom and the son noticed that he was feeling looking weak. He became less responsive. Never passed out. Shaky. No fever or chills reported. EMS was called out. Patient is found to be in atrial fibrillation with rapid ventricular rate. In the ER started on IV heparin, given adenosine, later put on IV Cardizem. Also found to be in DKA. Put on insulin drip. Potassium was very low NG tube had to be pacemaker placement. Tired. Most of the history of pain medicine at the bedside. Patient rather tired and lethargic. Review of systems cannot be done patient rather lethargic Past medical history to include: Diabetes, possible ADHD, chronic low back pain, herniated disc, Social history: Son lives with the patient. Worked at a [employer]. Smokes about a pack a day. Alcohol occasionally. Physical examination: VITAL SIGNS: 97.9, 170, 18, 146 and 89, 98% GENERAL: BMI 23.2, laying in bed tired and lethargic. EYES: Pupils equal. Conjunctiva normal. HEENT: External appearance of nose and ears normal, oral cavity dry mucous membranes, NG tube. NECK: JVD not raised; masses not palpable. HEART: Heart sounds irregular; no edema. LUNGS: Respiratory rate normal; decreased breath sounds. ABDOMEN: Soft, nontender, liver spleen not palpable, no masses palpable. PSYCH: Lethargic, tired. MUSCULOSKELETAL:No Clubbing/cyanosis;muscles-grossly intact NEUROLOGICAL: Cranial nerves grossly intact; no facial asymmetry, power and sensation grossly intact. LYMPHATICS: No lymph nodes palpable in the axilla and neck INVESTIGATIONS, reviewed in the clinical context: WBC 36.7 hemoglobin 14.7 platelets 470 potassium 2.7 sodium 128 bicarb 9 BUN 25 crit 0.89 blood glucose 564 UA positive for ketone 4+, leukoesterase negative for nitrite Urine drug screen: Negative Serum acetone positive EKG tracing personally reviewed by me-heart rate 171, ST segment depression Chest x-ray film personally reviewed by me-prominent pulmonary artery. Elevated right diaphragm. 2-D echocardiogram: EF 55-60%. Assessment and plan: -New onset of atrial fibrillation with a rapid ventricular rate IV Cardizem drip, IV heparin drip. Cardiology consulted -IV heparin drip monitoring Follow PTT -Diabetic ketoacidosis IV heparin per protocol -Acute metabolic encephalopathy, multifactorial -Severe hypokalemia Aggressive replacement of potassium. Follow-up magnesia. -COPD in a current smoker Bronchodilators as needed -Chronic nicotine dependence, cigarette smoker Nicotine patch ICU. Insulin drip. IV Cardizem drip. IV heparin drip. NG tube. Replace electrolytes. Bronchodilators. Consult cook room supervisor, and cardiology. Discussed with the son at the bedside. Past Medical History Past Medical History: Diabetes Mellitus History of Any Multi-Drug Resistant Organisms: None Reported Past Surgical History: Orthopedic Surgery Past Psychological History: No Psychological Hx Reported Smoking Status: Current every day smoker Past Alcohol Use History: Rare Past Drug Use History: None Reported Medications and Allergies Home Medications Medication Instructions Recorded Confirmed Type Dextroamphetamine/Amphetamine 30 mg PO BID 03/01/22 03/01/22 History [Dextroamphetamine/Amphetamine 30 mg Tab] sitaGLIPtin [Januvia] 100 mg PO DAILY 03/02/22 03/02/22 History Allergies Allergy/AdvReac Type Severity Reaction Status Date / Time No Known Allergies Allergy Verified 03/01/22 22:26 Physical Exam Vitals: Vital Signs Temp Pulse Resp BP Pulse Ox 03/02/22 09:00 113 H 45 H 122/62 98 03/02/22 08:40 112 H 41 H 112/73 98 03/02/22 08:20 113 H 45 H 130/86 98 03/02/22 08:00 97.8 F 114 H 44 H 140/79 97 03/02/22 07:40 112 H 45 H 116/79 97 03/02/22 07:20 114 H 42 H 124/71 98 03/02/22 07:13 97.9 F 112 H 42 H 110/91 98 03/02/22 06:40 143/74 03/02/22 06:00 113 H 46 H 153/72 03/02/22 05:40 106 H 45 H 152/81 03/02/22 05:20 106 H 40 H 146/72 100 03/02/22 05:00 105 H 44 H 154/74 100 03/02/22 04:40 105 H 43 H 149/78 03/02/22 04:20 98.3 F 104 H 46 H 148/83 03/02/22 04:00 105 H 45 H 158/81 03/02/22 03:40 105 H 44 H 172/87 03/02/22 03:20 109 H 43 H 138/85 03/02/22 03:00 106 H 45 H 173/80 03/02/22 02:40 112 H 36 H 158/84 99 03/02/22 02:20 110 H 40 H 152/81 100 03/02/22 02:00 105 H 43 H 160/85 98 03/02/22 01:40 106 H 42 H 158/88 99 03/02/22 01:20 112 H 36 H 99 03/02/22 01:00 108 H 36 H 134/90 98 03/02/22 00:40 112 H 40 H 158/83 99 03/02/22 00:20 108 H 40 H 130/76 99 03/02/22 00:00 110 H 32 H 153/109 03/01/22 23:40 113 H 26 H 174/82 03/01/22 23:20 110 H 26 H 164/106 03/01/22 23:00 107 H 24 157/100 03/01/22 22:40 109 H 22 147/91 03/01/22 22:20 113 H 24 145/90 03/01/22 22:00 109 H 24 144/93 03/01/22 21:57 113 H 03/01/22 21:40 113 H 150/92 03/01/22 21:20 126 H 24 178/68 03/01/22 21:00 107 H 22 184/103 100 03/01/22 20:40 105 H 22 188/95 99 03/01/22 20:37 24 197/107 03/01/22 20:11 97.9 F 170 H 18 146/89 98 Intake and Output 03/01/22 03/02/22 03/02/22 22:59 06:59 14:59 Intake Total 12.348 701.750 Output Total 1275 Balance 12.348 -573.250 Intake: IV 600 Sodium Chloride 0.9% 1, 600 000 ml @ 200 mls/hr IV . Q5H [facility] Rx#:[id number] Intake, IV Titration 12.348 101.750 Amount Heparin Sod,Pork in 0.45% 83.893 NaCl 25,000 unit In 0.45 % NaCl 1 250ml.bag @ 12 UNITS/KG/HR 8.546 mls/hr IV .Q24H [facility] Rx#: [id number] Insulin Regular 100 unit 12.348 17.857 In Sodium Chloride 0.9% 100 ml @ 0.1 UNITS/KG/HR 7.193 mls/hr IV .Q14H3M [facility] Rx#:[id number] Output: Urine 1275 Other: Weight 71.214 kg Results CBC & Chem 7: 03/02/22 06:40 03/02/22 07:54 Labs: Abnormal Lab Results - Last 24 Hours (Table) 03/01/22 03/01/22 03/01/22 Range/Units 20:15 20:15 20:37 WBC 36.7 H (3.8-10.6) k/uL RBC (4.30-5.90) m/uL Hgb (13.0-17.5) gm/dL Hct (39.0-53.0) % Plt Count 470 H (150-450) k/uL Neutrophils # (1.3-7.7) k/uL Neutrophils # (Manual) 34.80 H (1.3-7.7) k/uL Lymphocytes # (1.0-4.8) k/uL Lymphocytes # (Manual) 0.73 L (1.0-4.8) k/uL Myelocytes # (Manual) 0.37 H (0) k/uL VBG pH (7.31-7.41) VBG pCO2 (37-51) mmHg VBG HCO3 (24-28) mmol/L Sodium 128 L (137-145) mmol/L Potassium 2.7 L* (3.5-5.1) mmol/L Chloride 87 L (98-107) mmol/L Carbon Dioxide 9 L* (22-30) mmol/L BUN 25 H (9-20) mg/dL Glucose 564 H* (74-99) mg/dL POC Glucose (mg/dL) (70-110) mg/dL Calcium (8.4-10.2) mg/dL Phosphorus (2.5-4.5) mg/dL Magnesium 2.5 H (1.6-2.3) mg/dL AST (17-59) U/L Alkaline Phosphatase 154 H (38-126) U/L Total Protein (6.3-8.2) g/dL Albumin (3.5-5.0) g/dL Urine Protein Trace H (Negative) Urine Glucose (UA) 4+ H (Negative) Urine Ketones 4+ H (Negative) Urine Blood Moderate H (Negative) Ur Leukocyte Esterase Moderate H (Negative) Urine RBC 15 H (0-5) /hpf Urine WBC 56 H (0-5) /hpf Urine WBC Clumps (None) /hpf Urine Bacteria Occasional H (None) /hpf Hyaline Casts 7 H (0-2) /lpf Urine Mucus Rare H (None) /hpf 03/01/22 03/02/22 03/02/22 Range/Units 23:36 01:18 01:24 WBC (3.8-10.6) k/uL RBC (4.30-5.90) m/uL Hgb (13.0-17.5) gm/dL Hct (39.0-53.0) % Plt Count (150-450) k/uL Neutrophils # (1.3-7.7) k/uL Neutrophils # (Manual) (1.3-7.7) k/uL Lymphocytes # (1.0-4.8) k/uL Lymphocytes # (Manual) (1.0-4.8) k/uL Myelocytes # (Manual) (0) k/uL VBG pH 7.21 L (7.31-7.41) VBG pCO2 21 L (37-51) mmHg VBG HCO3 8 L* (24-28) mmol/L Sodium 129 L (137-145) mmol/L Potassium 3.3 L (3.5-5.1) mmol/L Chloride 95 L (98-107) mmol/L Carbon Dioxide 9 L* (22-30) mmol/L BUN 31 H (9-20) mg/dL Glucose 490 H (74-99) mg/dL POC Glucose (mg/dL) 516 H (70-110) mg/dL Calcium 8.2 L (8.4-10.2) mg/dL Phosphorus (2.5-4.5) mg/dL Magnesium (1.6-2.3) mg/dL AST 14 L (17-59) U/L Alkaline Phosphatase (38-126) U/L Total Protein 5.7 L (6.3-8.2) g/dL Albumin 2.7 L (3.5-5.0) g/dL Urine Protein (Negative) Urine Glucose (UA) (Negative) Urine Ketones (Negative) Urine Blood (Negative) Ur Leukocyte Esterase (Negative) Urine RBC (0-5) /hpf Urine WBC (0-5) /hpf Urine WBC Clumps (None) /hpf Urine Bacteria (None) /hpf Hyaline Casts (0-2) /lpf Urine Mucus (None) /hpf 03/02/22 03/02/22 03/02/22 Range/Units 03:59 03:59 04:01 WBC (3.8-10.6) k/uL RBC (4.30-5.90) m/uL Hgb (13.0-17.5) gm/dL Hct (39.0-53.0) % Plt Count (150-450) k/uL Neutrophils # (1.3-7.7) k/uL Neutrophils # (Manual) (1.3-7.7) k/uL Lymphocytes # (1.0-4.8) k/uL Lymphocytes # (Manual) (1.0-4.8) k/uL Myelocytes # (Manual) (0) k/uL VBG pH (7.31-7.41) VBG pCO2 (37-51) mmHg VBG HCO3 (24-28) mmol/L Sodium 131 L (137-145) mmol/L Potassium 2.5 L* (3.5-5.1) mmol/L Chloride (98-107) mmol/L Carbon Dioxide 8 L* (22-30) mmol/L BUN 33 H (9-20) mg/dL Glucose 394 H (74-99) mg/dL POC Glucose (mg/dL) 399 H (70-110) mg/dL Calcium (8.4-10.2) mg/dL Phosphorus 2.3 L (2.5-4.5) mg/dL Magnesium (1.6-2.3) mg/dL AST (17-59) U/L Alkaline Phosphatase (38-126) U/L Total Protein (6.3-8.2) g/dL Albumin (3.5-5.0) g/dL Urine Protein (Negative) Urine Glucose (UA) (Negative) Urine Ketones (Negative) Urine Blood (Negative) Ur Leukocyte Esterase (Negative) Urine RBC (0-5) /hpf Urine WBC (0-5) /hpf Urine WBC Clumps (None) /hpf Urine Bacteria (None) /hpf Hyaline Casts (0-2) /lpf Urine Mucus (None) /hpf 03/02/22 03/02/22 03/02/22 Range/Units 05:22 06:37 06:40 WBC 32.1 H (3.8-10.6) k/uL RBC 3.89 L (4.30-5.90) m/uL Hgb 11.0 L D (13.0-17.5) gm/dL Hct 33.9 L (39.0-53.0) % Plt Count (150-450) k/uL Neutrophils # 30.1 H (1.3-7.7) k/uL Neutrophils # (Manual) (1.3-7.7) k/uL Lymphocytes # 0.8 L (1.0-4.8) k/uL Lymphocytes # (Manual) (1.0-4.8) k/uL Myelocytes # (Manual) (0) k/uL VBG pH (7.31-7.41) VBG pCO2 (37-51) mmHg VBG HCO3 (24-28) mmol/L Sodium (137-145) mmol/L Potassium (3.5-5.1) mmol/L Chloride (98-107) mmol/L Carbon Dioxide (22-30) mmol/L BUN (9-20) mg/dL Glucose (74-99) mg/dL POC Glucose (mg/dL) 422 H 374 H (70-110) mg/dL Calcium (8.4-10.2) mg/dL Phosphorus (2.5-4.5) mg/dL Magnesium (1.6-2.3) mg/dL AST (17-59) U/L Alkaline Phosphatase (38-126) U/L Total Protein (6.3-8.2) g/dL Albumin (3.5-5.0) g/dL Urine Protein (Negative) Urine Glucose (UA) (Negative) Urine Ketones (Negative) Urine Blood (Negative) Ur Leukocyte Esterase (Negative) Urine RBC (0-5) /hpf Urine WBC (0-5) /hpf Urine WBC Clumps (None) /hpf Urine Bacteria (None) /hpf Hyaline Casts (0-2) /lpf Urine Mucus (None) /hpf 03/02/22 03/02/22 03/02/22 Range/Units 07:03 07:54 08:06 WBC (3.8-10.6) k/uL RBC (4.30-5.90) m/uL Hgb (13.0-17.5) gm/dL Hct (39.0-53.0) % Plt Count (150-450) k/uL Neutrophils # (1.3-7.7) k/uL Neutrophils # (Manual) (1.3-7.7) k/uL Lymphocytes # (1.0-4.8) k/uL Lymphocytes # (Manual) (1.0-4.8) k/uL Myelocytes # (Manual) (0) k/uL VBG pH (7.31-7.41) VBG pCO2 (37-51) mmHg VBG HCO3 (24-28) mmol/L Sodium 135 L (137-145) mmol/L Potassium 3.4 L (3.5-5.1) mmol/L Chloride (98-107) mmol/L Carbon Dioxide 8 L* (22-30) mmol/L BUN 40 H (9-20) mg/dL Glucose 352 H (74-99) mg/dL POC Glucose (mg/dL) 499 H 400 H (70-110) mg/dL Calcium (8.4-10.2) mg/dL Phosphorus 2.2 L (2.5-4.5) mg/dL Magnesium (1.6-2.3) mg/dL AST (17-59) U/L Alkaline Phosphatase (38-126) U/L Total Protein (6.3-8.2) g/dL Albumin (3.5-5.0) g/dL Urine Protein (Negative) Urine Glucose (UA) (Negative) Urine Ketones (Negative) Urine Blood (Negative) Ur Leukocyte Esterase (Negative) Urine RBC (0-5) /hpf Urine WBC (0-5) /hpf Urine WBC Clumps (None) /hpf Urine Bacteria (None) /hpf Hyaline Casts (0-2) /lpf Urine Mucus (None) /hpf 03/02/22 03/02/22 Range/Units 08:12 09:05 WBC (3.8-10.6) k/uL RBC (4.30-5.90) m/uL Hgb (13.0-17.5) gm/dL Hct (39.0-53.0) % Plt Count (150-450) k/uL Neutrophils # (1.3-7.7) k/uL Neutrophils # (Manual) (1.3-7.7) k/uL Lymphocytes # (1.0-4.8) k/uL Lymphocytes # (Manual) (1.0-4.8) k/uL Myelocytes # (Manual) (0) k/uL VBG pH (7.31-7.41) VBG pCO2 (37-51) mmHg VBG HCO3 (24-28) mmol/L Sodium (137-145) mmol/L Potassium (3.5-5.1) mmol/L Chloride (98-107) mmol/L Carbon Dioxide (22-30) mmol/L BUN (9-20) mg/dL Glucose (74-99) mg/dL POC Glucose (mg/dL) 288 H (70-110) mg/dL Calcium (8.4-10.2) mg/dL Phosphorus (2.5-4.5) mg/dL Magnesium (1.6-2.3) mg/dL AST (17-59) U/L Alkaline Phosphatase (38-126) U/L Total Protein (6.3-8.2) g/dL Albumin (3.5-5.0) g/dL Urine Protein Trace H (Negative) Urine Glucose (UA) 4+ H (Negative) Urine Ketones 4+ H (Negative) Urine Blood Trace H (Negative) Ur Leukocyte Esterase Large H (Negative) Urine RBC (0-5) /hpf Urine WBC 98 H (0-5) /hpf Urine WBC Clumps Few H (None) /hpf Urine Bacteria Rare H (None) /hpf Hyaline Casts (0-2) /lpf Urine Mucus Rare H (None) /hpf
[2022-03-02 15:14] LABS: Glucose,Whole Blood 158 mg/dL (70-110)
[2022-03-02 16:19] LABS: Glucose,Whole Blood 180 mg/dL (70-110)
[2022-03-02] MEDS: NICOTINE 21MG/24HR PATCH TRANSDERM SCH (16:28)
[2022-03-02 17:33] LABS: Glucose,Whole Blood 225 mg/dL (70-110)
[2022-03-02 18:01] LABS: Glucose,Whole Blood 207 mg/dL (70-110)
[2022-03-02] MEDS: DILTIAZEM 125 MG in SODIUM CHLORIDE 0.9% 100 ML IV SCH (18:04)
[2022-03-02] MEDS: HEPARIN SOD,PORK IN 0.45% NACL 25,000 UNIT in 0.45% NACL 1 250ML.BAG IV SCH (18:39)
[2022-03-02 18:49] LABS: African American GFR (CKD) >90 (>60 ml/min/1.73 sqM); Anion Gap 12 mmol/L; Blood Urea Nitrogen 36 mg/dL (9-20); Carbon Dioxide 16 mmol/L (22-30); Chloride 108 mmol/L (98-107); Glucose 214 mg/dL (74-99); Non-African American GFR(CKD) >90 (>60 ml/min/1.73 sqM); Potassium 3.7 mmol/L (3.5-5.1); Sodium 136 mmol/L (137-145)
[2022-03-02 19:01] LABS: Glucose,Whole Blood 286 mg/dL (70-110)
[2022-03-02] MEDS: ACETAMINOPHEN TAB 325 MG TAB PO PRN (19:49)
[2022-03-02 19:56] LABS: Glucose,Whole Blood 289 mg/dL (70-110)
[2022-03-02] MEDS ORDERED: POTASSIUM BICARBONATE/CIT AC 20 MEQ TABLET.EFF NG-TUBE SCH (20:00)
[2022-03-02 20:56] LABS: Glucose,Whole Blood 290 mg/dL (70-110)
[2022-03-02 21:52] LABS: Glucose,Whole Blood 201 mg/dL (70-110)
--- NOTE | 2022-03-02 23:03 | CONS ---
CONSULTATION HISTORY OF PRESENT ILLNESS: This is a 62-year-old gentleman with a known history of type 2 diabetes mellitus, who has been admitted to the hospital through the emergency room with diabetic ketoacidosis and also went into atrial flutter. He received some adenosine and subsequently demonstrated atrial fib and then has been placed on a Cardizem drip. He is lethargic, still has an NG tube in place. He comes in to the hospital basically through the ER last night complaining of palpitations and shortness of breath. He was found to be in DKA, is on an insulin drip. His blood sugars are coming down, but the CO2 content is still low. He is a smoker, has diabetes. No other significant history is available and I cannot communicate with the patient. EKG reveals a sinus tachycardia at about 104 beats per minute earlier. Earlier EKGs reveal what seems to be more like an atrial flutter rather than an SVT. He is hemodynamically stable at this time. PAST MEDICAL HISTORY: Diabetes, smoking, history of some orthopedic surgery. No documented evidence of CAD. PHYSICAL EXAMINATION: VITAL SIGNS: Blood pressure is 118/70, pulse rate is 104 per minute regular. HEENT: Unremarkable. Fundus was not examined by me. NECK: Supple. No JVD. No carotid bruit. HEART: Reveals S1, S2 with tachycardia. No significant murmurs. LUNGS: Reveal bilateral air entry, diminished. ABDOMEN: Soft, nontender. EXTREMITIES: Lower extremities reveal diminished pulses. CENTRAL NERVOUS SYSTEM: Assessment was not performed. EKG on arrival revealed what seems to be possible atrial flutter with a rapid ventricular rate, nonspecific ST changes and LVH by voltage criteria. LABORATORY DATA: Suggest unremarkable troponins. His renal function is normal. IMPRESSION: 1. Acute diabetic ketoacidosis. 2. Lethargy, probably secondary to ketoacidosis. 3. Rule out sepsis. 4. Paroxysmal atrial flutter, converted to sinus rhythm. RECOMMENDATIONS: I am recommending metoprolol tartrate 50 mg b.i.d. and we will obtain an echocardiogram and based on these findings, we will make further recommendations. Prognosis remains guarded. MMODL / IJN: [id number] /
[2022-03-02 23:11] LABS: Glucose,Whole Blood 268 mg/dL (70-110)
[2022-03-02] MEDS: HYDROcodone/APAP 5-325MG 1 EACH TAB PO PRN (23:20)
[2022-03-02 23:59] LABS: Glucose,Whole Blood 190 mg/dL (70-110)
[2022-03-03 00:58] LABS: Glucose,Whole Blood 196 mg/dL (70-110)
[2022-03-03] MEDS: D5-0.45% NACL WITH KCL 20MEQ/L 1,000 ML IV SCH ×3 (01:49→17:50)
[2022-03-03] MEDS: SODIUM CHLORIDE 0.9% 1,000 ML IV SCH ×4 (01:51→08:35)
[2022-03-03 01:57] LABS: Glucose,Whole Blood 116 mg/dL (70-110)
[2022-03-03 02:53] LABS: Glucose,Whole Blood 142 mg/dL (70-110)
[2022-03-03 03:52] LABS: Glucose,Whole Blood 158 mg/dL (70-110)
[2022-03-03 05:12] LABS: Glucose,Whole Blood 143 mg/dL (70-110)
[2022-03-03] MEDS: INSULIN REGULAR 100 UNIT in SODIUM CHLORIDE 0.9% 100 ML IV SCH (05:26)
[2022-03-03 05:44] LABS: Glucose,Whole Blood 195 mg/dL (70-110)
[2022-03-03 06:57] LABS: Glucose,Whole Blood 208 mg/dL (70-110)
[2022-03-03 07:28] LABS: Basophils % (A) 0 %; Eosinophils % (A) 0 %; HCT 33.5 % (39.0-53.0); HGB 10.8 gm/dL (13.0-17.5); Hypochromasia Slight; Lymphocytes # (A) 0.6 k/uL (1.0-4.8); Lymphocytes % (A) 3 %; MCH 27.2 pg (25.0-35.0); MCHC 32.3 g/dL (31.0-37.0); MCV 84.3 fL (80.0-100.0); Mean Platelet Volume 7.5; Monocytes # (A) 0.6 k/uL (0-1.0); Monocytes % (A) 3 %; Neutrophils # (A) 21.6 k/uL (1.3-7.7); Neutrophils % (A) 94 %; Platelet Count 332 k/uL (150-450); RBC 3.98 m/uL (4.30-5.90); RDW 13.4 % (11.5-15.5)
[2022-03-03 07:58] LABS: African American GFR (CKD) >90 (>60 ml/min/1.73 sqM); Anion Gap 8 mmol/L; Blood Urea Nitrogen 23 mg/dL (9-20); Calcium 7.6 mg/dL (8.4-10.2); Carbon Dioxide 22 mmol/L (22-30); Chloride 107 mmol/L (98-107); Glucose 213 mg/dL (74-99); Non-African American GFR(CKD) >90 (>60 ml/min/1.73 sqM); Phosphorus 1.3 mg/dL (2.5-4.5); Sodium 137 mmol/L (137-145)
[2022-03-03 08:04] LABS: Glucose,Whole Blood 263 mg/dL (70-110)
[2022-03-03] MEDS: PANTOPRAZOLE 40 MG/10 ML VIAL IV SCH (08:31)
[2022-03-03] MEDS: NICOTINE 21MG/24HR PATCH TRANSDERM SCH (08:31)
[2022-03-03] MEDS: HEPARIN SODIUM 1,000 UN/ML (10ML VL) IV PRN (08:31)
--- NOTE | 2022-03-03 08:57 | XR ---
EXAMINATION TYPE: XR chest 1V confirm line [facility] DATE OF EXAM: 03/03/2022 COMPARISON: NONE HISTORY: NG tube placement TECHNIQUE: Single frontal view of the chest is obtained. FINDINGS: There is no focal air space opacity, pleural effusion, or pneumothorax seen. The cardiac silhouette size is within normal limits. The osseous structures are intact. NG tube seen with tip a t the GE junction. Hyperinflation suggests COPD. IMPRESSION: NG tube seen with the tip at the GE junction and could be advanced a few centimeters.
[2022-03-03 08:58] LABS: Glucose,Whole Blood 292 mg/dL (70-110)
[2022-03-03] MEDS: POTASSIUM BICARBONATE/CIT AC 20 MEQ TABLET.EFF NG-TUBE SCH ×3 (09:04→11:05)
[2022-03-03] MEDS: METOPROLOL TARTRATE 50 MG TAB PO SCH ×2 (09:05→20:39)
[2022-03-03] MEDS: HYDROcodone/APAP 5-325MG 1 EACH TAB PO PRN (09:05)
[2022-03-03] MEDS ORDERED: DEXTROSE 5% IN WATER 100 ML with AMIODARONE 150 MG IV ONE (09:24)
[2022-03-03] MEDS ORDERED: AMIODARONE 360 MG in DEXTROSE 5% IN WATER 200 ML IV ONE ×2 (09:24)
[2022-03-03 10:24] LABS: Glucose,Whole Blood 321 mg/dL (70-110)
[2022-03-03 10:51] LABS: ALT 15 U/L (4-49); AST 15 U/L (17-59); African American GFR (CKD) >90 (>60 ml/min/1.73 sqM); Albumin 2.2 g/dL (3.5-5.0); Alkaline Phosphatase 93 U/L (38-126); Anion Gap 10 mmol/L; Blood Urea Nitrogen 22 mg/dL (9-20); Calcium 7.5 mg/dL (8.4-10.2); Carbon Dioxide 19 mmol/L (22-30); Chloride 107 mmol/L (98-107); Glucose 282 mg/dL (74-99); Non-African American GFR(CKD) >90 (>60 ml/min/1.73 sqM); Sodium 136 mmol/L (137-145); Total Bilirubin 0.4 mg/dL (0.2-1.3)
[2022-03-03 11:09] LABS: Glucose,Whole Blood 320 mg/dL (70-110)
[2022-03-03] MEDS: POTASSIUM PHOSPHATE 10 MMOL in SODIUM CHLORIDE 0.9% 250 ML IV SCH ×3 (11:29→17:49)
--- NOTE | 2022-03-03 11:41 | P.PN ---
Subjective Progress Note Date: 03/03/22 This is 62-year-old male patient who follows with Dr. Mendez as his primary care provider. He has history of diabetes mellitus, chronic and ongoing tobacco dependence, ADHD. He presented here to the emergency room yesterday with a 2 hour history of palpitations and shortness of breath. No precipitating factors. No relieving factors. No nausea vomiting. No chest pain. No dizziness or lightheadedness. He was felt to be in SVT and was treated with a Ashlie with subsequent conversion to atrial fibrillation with a rapid ventricular response. The patient was also noted to be in diabetic ketoacidosis with initial glucose of 564. Positive acetone. Drug screen negative. White count 32. Hemoglobin 11.0. He was 383. Sodium 135. Potassium 3.4. Chloride 105. Bicarbonate8. Anion gap 22. BUN 40. Creatinine 0.67. Troponin negative 2. ProBNP 1270. Urinalysis with 4+ ketones, large leukocyte esterase, few WBCs. Chest x-ray reveals no acute pulmonary process. Nasogastric tube in place. The patient is seen today in the ICU. He is resting fairly comfortably in bed. He is maintaining good O2 saturations in the 90s on room air. Arousable. He is continued on Cardizem drip at 5 mg per hour. Insulin drip at 8 units per hour. Heparin drip per weight base protocol. 0.9% normal saline at 200 mL per hour. Remains in the DKA protocol. Currently on ceftriaxone. Pro-calcitonin pending. The patient is seen today 03/03/2022 in follow-up in the intensive care unit. He is a bit more awake and alert. Still somewhat lethargic. He is maintaining O2 saturations in the 90s on room air. He is still febrile. Tachycardic. Currently on D5.45 with 20 of KCl at 150 ML's per hour. Insulin drip is on hold. He remains on Cardizem drip at 10 mg per hour. Heparin drain drip per we ight base protocol. He had an episode of A. fib with RVR this morning and the plan is for additional amiodarone drip. Urine culture pending. White count 23. Hemoglobin 10.8. Sodium 136. Potassium 3.0. Bicarb 19. BUN 22. Creatinine 0.50. Glucose 282. Urine culture pending. Pro-calcitonin 1.03. He is on antibiotics in the form of ceftriaxone. Nasogastric tube remains in place for electrolyte replacement. Objective - Vital Signs Vital signs: Vital Signs Temp 100.2 F H 03/03/22 08:00 Pulse 100 03/03/22 10:00 Resp 31 H 03/03/22 10:00 BP 118/84 03/03/22 10:00 Pulse Ox 96 03/03/22 10:00 FiO2 Intake & Output 03/02/22 03/03/22 03/03/22 18:59 06:59 18:59 Intake Total 2925.779 2154.899 689.261 Output Total 2560 1425 500 Balance 365.779 729.899 189.261 Weight 71.214 kg 72.3 kg Intake: IV 1000 1800 450 D5-0.45% NaCl with KCl 1800 450 20Meq/l 1,000 ml @ 150 mls/hr IV .Q6H40M [facility] Rx# :[id number] Sodium Chloride 0.9% 1, 1000 000 ml @ 200 mls/hr IV . Q5H [facility] Rx#:[id number] Intake, IV Titration 1925.779 184.899 239.261 Amount D5-0.45% NaCl with KCl 1050 150 20Meq/l 1,000 ml @ 150 mls/hr IV .Q6H40M [facility] Rx# :[id number] Diltiazem 125 mg In 106.083 Sodium Chloride 0.9% 100 ml @ 5 MG/HR 5 mls/hr IV .Q24H [facility] Rx#:[id number] Heparin Sod,Pork in 0.45% 216.174 187.533 NaCl 25,000 unit In 0.45 % NaCl 1 250ml.bag @ 12 UNITS/KG/HR 8.546 mls/hr IV .Q24H [facility] Rx#: [id number] Insulin Regular 100 unit 53.522 34.899 1.728 In Sodium Chloride 0.9% 100 ml @ 0.1 UNITS/KG/HR 7.193 mls/hr IV .Q14H3M [facility] Rx#:[id number] Potassium Chloride 10 meq 300 In Water For Injection 1 100ml.bag @ 100 mls/hr IVPB Q1HR [facility] Rx#: [id number] Sodium Phosphate 10 mmol 200 In Sodium Chloride 0.9% 250 ml @ 125 mls/hr IVPB Q2H [facility] Rx#:[id number] cefTRIAXone 1 gm In 50 Sodium Chloride 0.9% 50 ml @ 100 mls/hr IVPB Q12HR [facility] Rx#:[id number] Other 170 Output: Urine 2560 1425 500 Other: Voiding Method Indwelling Catheter Indwelling Catheter Indwelling Catheter - Exam GENERAL EXAM: Arousable, lethargic, thin 62-year-old male, on room air, fairly comfortable in no apparent distress. HEAD: Normocephalic. EYES: Normal reaction of pupils, equal size. NOSE: Nasogastric tube secured in place. Clear with pink turbinates. THROAT: No erythema or exudates. NECK: No masses, no JVD. CHEST: No chest wall deformity. LUNGS: Equal air entry with no crackles, wheeze, rhonchi or dullness. CVS: S1 and S2 normal with no audible murmur, irregular rhythm. ABDOMEN: No hepatosplenomegaly, normal bowel sounds, no guarding or rigidity. SPINE: No scoliosis or deformity SKIN: No rashes CENTRAL NERVOUS SYSTEM: No focal deficits, tone is normal in all 4 extremities. EXTREMITIES: There is no peripheral edema. No clubbing, no cyanosis. Peripheral pulses are intact. - Labs CBC & Chem 7: 03/03/22 06:51 03/03/22 09:56 Labs: Abnormal Lab Results - Last 24 Hours (Table) 03/02/22 03/02/22 03/02/22 Range/Units 11:46 11:46 12:03 WBC (3.8-10.6) k/uL RBC (4.30-5.90) m/uL Hgb (13.0-17.5) gm/dL Hct (39.0-53.0) % Neutrophils # (1.3-7.7) k/uL Lymphocytes # (1.0-4.8) k/uL APTT (22.0-30.0) sec Sodium (137-145) mmol/L Potassium (3.5-5.1) mmol/L Chloride (98-107) mmol/L Carbon Dioxide (22-30) mmol/L BUN (9-20) mg/dL Creatinine (0.66-1.25) mg/dL Glucose (74-99) mg/dL POC Glucose (mg/dL) 130 H (70-110) mg/dL Calcium (8.4-10.2) mg/dL Phosphorus 1.2 L (2.5-4.5) mg/dL AST (17-59) U/L Total Protein (6.3-8.2) g/dL Albumin (3.5-5.0) g/dL Procalcitonin 1.03 H (0.02-0.09) ng/mL 03/02/22 03/02/22 03/02/22 Range/Units 13:14 13:56 15:13 WBC (3.8-10.6) k/uL RBC (4.30-5.90) m/uL Hgb (13.0-17.5) gm/dL Hct (39.0-53.0) % Neutrophils # (1.3-7.7) k/uL Lymphocytes # (1.0-4.8) k/uL APTT (22.0-30.0) sec Sodium (137-145) mmol/L Potassium (3.5-5.1) mmol/L Chloride (98-107) mmol/L Carbon Dioxide (22-30) mmol/L BUN (9-20) mg/dL Creatinine (0.66-1.25) mg/dL Glucose (74-99) mg/dL POC Glucose (mg/dL) 115 H 148 H 158 H (70-110) mg/dL Calcium (8.4-10.2) mg/dL Phosphorus (2.5-4.5) mg/dL AST (17-59) U/L Total Protein (6.3-8.2) g/dL Albumin (3.5-5.0) g/dL Procalcitonin (0.02-0.09) ng/mL 03/02/22 03/02/22 03/02/22 Range/Units 16:18 17:33 17:59 WBC (3.8-10.6) k/uL RBC (4.30-5.90) m/uL Hgb (13.0-17.5) gm/dL Hct (39.0-53.0) % Neutrophils # (1.3-7.7) k/uL Lymphocytes # (1.0-4.8) k/uL APTT (22.0-30.0) sec Sodium (137-145) mmol/L Potassium (3.5-5.1) mmol/L Chloride (98-107) mmol/L Carbon Dioxide (22-30) mmol/L BUN (9-20) mg/dL Creatinine (0.66-1.25) mg/dL Glucose (74-99) mg/dL POC Glucose (mg/dL) 180 H 225 H 207 H (70-110) mg/dL Calcium (8.4-10.2) mg/dL Phosphorus (2.5-4.5) mg/dL AST (17-59) U/L Total Protein (6.3-8.2) g/dL Albumin (3.5-5.0) g/dL Procalcitonin (0.02-0.09) ng/mL 03/02/22 03/02/22 03/02/22 Range/Units 18:14 18:14 18:14 WBC (3.8-10.6) k/uL RBC (4.30-5.90) m/uL Hgb (13.0-17.5) gm/dL Hct (39.0-53.0) % Neutrophils # (1.3-7.7) k/uL Lymphocytes # (1.0-4.8) k/uL APTT 43.2 H (22.0-30.0) sec Sodium 136 L (137-145) mmol/L Potassium (3.5-5.1) mmol/L Chloride 108 H (98-107) mmol/L Carbon Dioxide 16 L (22-30) mmol/L BUN 36 H (9-20) mg/dL Creatinine 0.55 L (0.66-1.25) mg/dL Glucose 214 H (74-99) mg/dL POC Glucose (mg/dL) (70-110) mg/dL Calcium 8.0 L (8.4-10.2) mg/dL Phosphorus 1.4 L (2.5-4.5) mg/dL AST (17-59) U/L Total Protein (6.3-8.2) g/dL Albumin (3.5-5.0) g/dL Procalcitonin (0.02-0.09) ng/mL 03/02/22 03/02/22 03/02/22 Range/Units 18:59 19:55 20:54 WBC (3.8-10.6) k/uL RBC (4.30-5.90) m/uL Hgb (13.0-17.5) gm/dL Hct (39.0-53.0) % Neutrophils # (1.3-7.7) k/uL Lymphocytes # (1.0-4.8) k/uL APTT (22.0-30.0) sec Sodium (137-145) mmol/L Potassium (3.5-5.1) mmol/L Chloride (98-107) mmol/L Carbon Dioxide (22-30) mmol/L BUN (9-20) mg/dL Creatinine (0.66-1.25) mg/dL Glucose (74-99) mg/dL POC Glucose (mg/dL) 286 H 289 H 290 H (70-110) mg/dL Calcium (8.4-10.2) mg/dL Phosphorus (2.5-4.5) mg/dL AST (17-59) U/L Total Protein (6.3-8.2) g/dL Albumin (3.5-5.0) g/dL Procalcitonin (0.02-0.09) ng/mL 03/02/22 03/02/22 03/02/22 Range/Units 21:48 23:10 23:58 WBC (3.8-10.6) k/uL RBC (4.30-5.90) m/uL Hgb (13.0-17.5) gm/dL Hct (39.0-53.0) % Neutrophils # (1.3-7.7) k/uL Lymphocytes # (1.0-4.8) k/uL APTT (22.0-30.0) sec Sodium (137-145) mmol/L Potassium (3.5-5.1) mmol/L Chloride (98-107) mmol/L Carbon Dioxide (22-30) mmol/L BUN (9-20) mg/dL Creatinine (0.66-1.25) mg/dL Glucose (74-99) mg/dL POC Glucose (mg/dL) 201 H 268 H 190 H (70-110) mg/dL Calcium (8.4-10.2) mg/dL Phosphorus (2.5-4.5) mg/dL AST (17-59) U/L Total Protein (6.3-8.2) g/dL Albumin (3.5-5.0) g/dL Procalcitonin (0.02-0.09) ng/mL 03/03/22 03/03/22 03/03/22 Range/Units 00:33 00:56 01:55 WBC (3.8-10.6) k/uL RBC (4.30-5.90) m/uL Hgb (13.0-17.5) gm/dL Hct (39.0-53.0) % Neutrophils # (1.3-7.7) k/uL Lymphocytes # (1.0-4.8) k/uL APTT 56.1 H (22.0-30.0) sec Sodium (137-145) mmol/L Potassium (3.5-5.1) mmol/L Chloride (98-107) mmol/L Carbon Dioxide (22-30) mmol/L BUN (9-20) mg/dL Creatinine (0.66-1.25) mg/dL Glucose (74-99) mg/dL POC Glucose (mg/dL) 196 H 116 H (70-110) mg/dL Calcium (8.4-10.2) mg/dL Phosphorus (2.5-4.5) mg/dL AST (17-59) U/L Total Protein (6.3-8.2) g/dL Albumin (3.5-5.0) g/dL Procalcitonin (0.02-0.09) ng/mL 03/03/22 03/03/22 03/03/22 Range/Units 02:52 03:51 05:10 WBC (3.8-10.6) k/uL RBC (4.30-5.90) m/uL Hgb (13.0-17.5) gm/dL Hct (39.0-53.0) % Neutrophils # (1.3-7.7) k/uL Lymphocytes # (1.0-4.8) k/uL APTT (22.0-30.0) sec Sodium (137-145) mmol/L Potassium (3.5-5.1) mmol/L Chloride (98-107) mmol/L Carbon Dioxide (22-30) mmol/L BUN (9-20) mg/dL Creatinine (0.66-1.25) mg/dL Glucose (74-99) mg/dL POC Glucose (mg/dL) 142 H 158 H 143 H (70-110) mg/dL Calcium (8.4-10.2) mg/dL Phosphorus (2.5-4.5) mg/dL AST (17-59) U/L Total Protein (6.3-8.2) g/dL Albumin (3.5-5.0) g/dL Procalcitonin (0.02-0.09) ng/mL 03/03/22 03/03/22 03/03/22 Range/Units 05:43 06:51 06:51 WBC 23.0 H (3.8-10.6) k/uL RBC 3.98 L (4.30-5.90) m/uL Hgb 10.8 L (13.0-17.5) gm/dL Hct 33.5 L (39.0-53.0) % Neutrophils # 21.6 H (1.3-7.7) k/uL Lymphocytes # 0.6 L (1.0-4.8) k/uL APTT (22.0-30.0) sec Sodium (137-145) mmol/L Potassium 3.0 L (3.5-5.1) mmol/L Chloride (98-107) mmol/L Carbon Dioxide (22-30) mmol/L BUN 23 H (9-20) mg/dL Creatinine 0.50 L (0.66-1.25) mg/dL Glucose 213 H (74-99) mg/dL POC Glucose (mg/dL) 195 H (70-110) mg/dL Calcium 7.6 L (8.4-10.2) mg/dL Phosphorus 1.3 L (2.5-4.5) mg/dL AST (17-59) U/L Total Protein (6.3-8.2) g/dL Albumin (3.5-5.0) g/dL Procalcitonin (0.02-0.09) ng/mL 03/03/22 03/03/22 03/03/22 Range/Units 06:51 06:55 08:02 WBC (3.8-10.6) k/uL RBC (4.30-5.90) m/uL Hgb (13.0-17.5) gm/dL Hct (39.0-53.0) % Neutrophils # (1.3-7.7) k/uL Lymphocytes # (1.0-4.8) k/uL APTT 43.1 H (22.0-30.0) sec Sodium (137-145) mmol/L Potassium (3.5-5.1) mmol/L Chloride (98-107) mmol/L Carbon Dioxide (22-30) mmol/L BUN (9-20) mg/dL Creatinine (0.66-1.25) mg/dL Glucose (74-99) mg/dL POC Glucose (mg/dL) 208 H 263 H (70-110) mg/dL Calcium (8.4-10.2) mg/dL Phosphorus (2.5-4.5) mg/dL AST (17-59) U/L Total Protein (6.3-8.2) g/dL Albumin (3.5-5.0) g/dL Procalcitonin (0.02-0.09) ng/mL 03/03/22 03/03/22 03/03/22 Range/Units 08:57 09:56 10:12 WBC (3.8-10.6) k/uL RBC (4.30-5.90) m/uL Hgb (13.0-17.5) gm/dL Hct (39.0-53.0) % Neutrophils # (1.3-7.7) k/uL Lymphocytes # (1.0-4.8) k/uL APTT (22.0-30.0) sec Sodium 136 L (137-145) mmol/L Potassium 3.0 L (3.5-5.1) mmol/L Chloride (98-107) mmol/L Carbon Dioxide 19 L (22-30) mmol/L BUN 22 H (9-20) mg/dL Creatinine 0.50 L (0.66-1.25) mg/dL Glucose 282 H (74-99) mg/dL POC Glucose (mg/dL) 292 H 321 H (70-110) mg/dL Calcium 7.5 L (8.4-10.2) mg/dL Phosphorus (2.5-4.5) mg/dL AST 15 L (17-59) U/L Total Protein 5.0 L (6.3-8.2) g/dL Albumin 2.2 L (3.5-5.0) g/dL Procalcitonin (0.02-0.09) ng/mL 03/03/22 Range/Units 11:07 WBC (3.8-10.6) k/uL RBC (4.30-5.90) m/uL Hgb (13.0-17.5) gm/dL Hct (39.0-53.0) % Neutrophils # (1.3-7.7) k/uL Lymphocytes # (1.0-4.8) k/uL APTT (22.0-30.0) sec Sodium (137-145) mmol/L Potassium (3.5-5.1) mmol/L Chloride (98-107) mmol/L Carbon Dioxide (22-30) mmol/L BUN (9-20) mg/dL Creatinine (0.66-1.25) mg/dL Glucose (74-99) mg/dL POC Glucose (mg/dL) 320 H (70-110) mg/dL Calcium (8.4-10.2) mg/dL Phosphorus (2.5-4.5) mg/dL AST (17-59) U/L Total Protein (6.3-8.2) g/dL Albumin (3.5-5.0) g/dL Procalcitonin (0.02-0.09) ng/mL Microbiology - Last 24 Hours (Table) 03/02/22 08:12 Urine Culture - Preliminary Urine,Voided Assessment and Plan Assessment: Acute diabetic ketoacidosis Leukocytosis Hypokalemia Anion gap metabolic acidosis secondary to above New onset atrial fibrillation with rapid ventricular response Urinary tract infection, culture pending History of diabetes mellitus Chronic and ongoing tobacco dependence History of ADHD Plan: The patient was seen and evaluated Chest x-ray, labs and medications reviewed Continue amiodarone drip, Cardizem drip, heparin drip Continue DKA protocol Continue ceftriaxone, urine culture pending Replace electrolytes Continue to monitor here in the ICU We will continue to follow I have personally seen and examined the patient, performed the documentation and the assessment and plan as written. Number of minutes spent on the visit: 10.
[2022-03-03] MEDS ORDERED: ENOXAPARIN 30 MG/0.3 ML SYRINGE SQ SCH (12:00)
[2022-03-03 12:27] LABS: Glucose,Whole Blood 351 mg/dL (70-110)
[2022-03-03] MEDS: INSULIN DETEMIR (LEVEMIR) 100 UNIT/ML SYR SQ SCH (12:28)
[2022-03-03] MEDS ORDERED: DEXTROSE 50% SYRINGE 50 ML IVP PRN ×2 (12:29)
[2022-03-03] MEDS: INSULIN ASPART (NovoLOG) 100 UNIT/ML VIAL SQ SCH ×2 (12:30→17:04)
[2022-03-03] MEDS ORDERED: POTASSIUM BICARBONATE/CIT AC 20 MEQ TABLET.EFF PO ONE ×2 (13:15→14:00)
[2022-03-03] MEDS: ENOXAPARIN 80 MG/0.8 ML SYRINGE SQ SCH ×2 (13:20→20:38)
--- NOTE | 2022-03-03 13:54 | P.PN ---
Progress Note - Text Progress Note Date: 03/03/22 Chief Complaint: Decreased responsiveness This is a 62-year-old patient, follows with Dr. Mendez. Chronic stable medical conditions include ADHD, herniated disc lower back, smoker. Patient's son at the bedside. Patient yesterday took his medication was going to the bathroom and the son noticed that he was feeling looking weak. He became less responsive. Never passed out. Shaky. No fever or chills reported. EMS was called out. Patient is found to be in atrial fibrillation with rapid ventricular rate. In the ER started on IV heparin, given adenosine, later put on IV Cardizem. Also found to be in DKA. Put on insulin drip. Potassium was very low NG tube had to be pacemaker placement. Tired. Most of the history of pain medicine at the bedside. Patient rather tired and lethargic. Admitted with new onset of atrial fibrillation uncontrolled, diabetic k etoacidosis, acute metabolic encephalopathy, severe hypokalemia. Started on Cardizem drip, IV heparin, insulin drip. NG tube was placed for potassium replacement. March 03: ICU: Patient went back into sinus rhythm. Did have 3-4 minutes burst of A. fib with rapid ventricular rate and rhythm back in sinus rhythm. IV heparin is being changed over to subcu Lovenox 70 mg every 12. Insulin drip is discontinued. Put on Levemir 10 units. NG tube in place. Potassium being replaced. Still patient is rather lethargic. We'll get a computed tomography scan of the brain. And EEG. Active Medications Acetaminophen (Acetaminophen Tab 325 Mg Tab) 650 mg PO Q6HR PRN PRN Reason: Mild Pain or Fever > 100.5 Last Admin: 03/02/22 19:49 Dose: 650 mg Hydrocodone Bitart/Acetaminophen (Hydrocodone/Apap 5-325mg 1 Each Tab) 1 each PO Q4HR PRN PRN Reason: Moderate Pain (Scale 4 to 6) Last Admin: 03/03/22 09:05 Dose: 1 each Al Hydroxide/Mg Hydroxide (Mag Hydrox/Al Hydrox/Simeth 30 Ml Cup) 15 ml PO Q6HR PRN PRN Reason: Indigestion Alprazolam (Alprazolam 0.25 Mg Tab) 0.25 mg PO Q6HR PRN PRN Reason: Anxiety Dextrose/Water (Dextrose 50% Syringe 50 Ml) 25 ml IVP PER PROTOCOL PRN; Protocol PRN Reason: Hypoglycemia Dextrose/Water (Dextrose 50% Syringe 50 Ml) 50 ml IVP PER PROTOCOL PRN; Protocol PRN Reason: Hypoglycemia Enoxaparin Sodium (Enoxaparin 80 Mg/0.8 Ml Syringe) 70 mg SQ Q12HR [facility] Last Admin: 03/03/22 13:20 Dose: 70 mg Diltiazem HCl 125 mg/ Sodium (Chloride) 125 mls @ 5 mls/hr IV .Q24H [facility] Last Admin: 03/02/22 18:04 Dose: 5 mg/hr, 5 mls/hr Potassium Chloride/Dextrose/Sod Cl (D5%-1/2ns-Kcl 20 Meq/L Iv Solution) 1,000 mls @ 150 mls/hr IV .Q6H40M [facility] Last Admin: 03/03/22 08:32 Dose: 150 mls/hr Amiodarone HCl 360 mg/ (Dextrose/Water) 200 mls @ 33.333 mls/hr IV .Q6H [facility]; Protocol Stop: 03/03/22 15:23 Amiodarone HCl 450 mg/ (Dextrose/Water) 250 mls @ 16.667 mls/hr IV .Q15H [facility]; Protocol Stop: 03/04/22 09:29 Ceftriaxone Sodium 1 gm/ (Sodium Chloride) 50 mls @ 100 mls/hr IVPB Q12HR [facility]; Protocol Last Admin: 03/03/22 10:16 Dose: 100 mls/hr Potassium Phosphate 10 mmol/ (Sodium Chloride) 253.3333 mls @ 125 mls/hr IV Q2H [facility] Stop: 03/03/22 17:14 Last Admin: 03/03/22 11:29 Dose: 125 mls/hr Insulin Aspart (Insulin Aspart (Novolog) 100 Unit/Ml Vial) 0 unit SQ Q6HR [facility]; Protocol Last Admin: 03/03/22 12:30 Dose: 10 unit Insulin Detemir (Insulin Detemir (Levemir) 100 Unit/Ml Syr) 10 unit SQ DAILY@0700 [facility] Last Admin: 03/03/22 12:28 Dose: 10 unit Metoprolol Tartrate (Metoprolol Tartrate 50 Mg Tab) 50 mg PO BID [facility] Last Admin: 03/03/22 09:05 Dose: 50 mg Miscellaneous Information (Potassium Replacement Protocol 1 Each Misc) 1 each MISCELLANE DAILY PRN; Protocol PRN Reason: Per Protocol Miscellaneous Information (Phosphorus Replacement Protoco 1 Each Misc) 1 each MISCELLANE DAILY PRN; Protocol PRN Reason: Per Protocol Naloxone HCl (Naloxone 0.4 Mg/Ml 1 Ml Vial) 0.2 mg IV Q2M PRN PRN Reason: Opioid Reversal Nicotine (Nicotine 21mg/24hr Patch) 1 patch TRANSDERM DAILY [facility] Last Admin: 03/03/22 08:31 Dose: 1 patch Ondansetron HCl (Ondansetron 4 Mg/2 Ml Vial) 4 mg IVP Q8HR PRN PRN Reason: Nausea And Vomiting Pantoprazole Sodium (Pantoprazole 40 Mg/10 Ml Vial) 40 mg IV DAILY [facility] Last Admin: 03/03/22 08:31 Dose: 40 mg Potassium Bicarbonate (Potassium Bicarbonate/Cit Ac 20 Meq Tablet.Eff) 20 meq PO ONCE ONE Stop: 03/03/22 14:01 Sodium Bicarbonate (Sodium Bicarbonate Tab 650 Mg Tab) 650 mg PO TID [facility] Temazepam (Temazepam 7.5 Mg Cap) 15 mg PO HS PRN PRN Reason: Insomnia Past medical history to include: Diabetes, possible ADHD, chronic low back pain, herniated disc, Social history: Son lives with the patient. 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 Smokes about a pack a day. Alcohol occasionally. Physical examination: VITAL SIGNS: 101, 32, 1 24 x 70, 96% on room air GENERAL: BMI 23.2, laying in bed tired and lethargic. While breathing EYES: Pupils equal. Conjunctiva normal. HEENT: External appearance of nose and ears normal, oral cavity dry mucous membranes with poor hygiene, NG tube. NECK: JVD not raised; masses not palpable. HEART: Heart sounds normal; no edema. LUNGS: Respiratory rate increased; decreased breath sounds. ABDOMEN: Soft, nontender, liver spleen not palpable, no masses palpable. PSYCH: Lethargic, unable to assess MUSCULOSKELETAL:No Clubbing/cyanosis;muscles-grossly intact NEUROLOGICAL: Cranial nerves grossly intact; no facial asymmetry, INVESTIGATIONS, reviewed in the clinical context: March 03: Sodium 136 potassium 3 BUN 22 creatinine 0.50 albumin 2.2 WBC 36.7 hemoglobin 14.7 platelets 470 potassium 2.7 sodium 128 bicarb 9 BUN 25 crit 0.89 blood glucose 564 UA positive for ketone 4+, leukoesterase negative for nitrite Urine drug screen: Negative Serum acetone positive EKG tracing personally reviewed by me-heart rate 171, ST segment depression Chest x-ray film personally reviewed by me-prominent pulmonary artery. Elevated right diaphragm. 2-D echocardiogram: EF 55-60%. Assessment and plan: -Paroxysmal atrial fibrillation with a rapid ventricular rate, back in sinus rhythm IV Cardizem drip, IV heparin drip-changed to Lovenox. Cardiology consulted. Lopressor 50 mg twice a day -IV heparin drip monitoring-discontinued Follow PTT -Diabetic ketoacidosis: Better IV insulin per protocol, discontinue. Levemir 10 units daily. Accu-Cheks every 6 -Acute metabolic encephalopathy, multifactorial, not improving Computed tomography scan of brain without contrast. EEG. -Severe hypokalemia Aggressive replacement of potassium. Follow-up magnesia. -COPD in a current smoker Bronchodilators as needed -Chronic nicotine dependence, cigarette smoker Nicotine patch ICU. Stop insulin drip. On IV Cardizem drip. Stop IV heparin. Levemir 10 units daily. Subcu Lovenox 70 mg every 12. Computed tomography scan and EEG. Change IV fluids to D5 0.45. Follow labs closely.
[2022-03-03] MEDS: ACETAMINOPHEN TAB 325 MG TAB PO PRN ×2 (14:54→20:29)
[2022-03-03] MEDS: SODIUM BICARBONATE TAB 650 MG TAB PO SCH ×2 (14:56→21:31)
--- NOTE | 2022-03-03 15:04 | CT ---
EXAMINATION TYPE: CT brain wo con DATE OF EXAM: 03/03/2022 COMPARISON: None INDICATION: Lethargic, not improving DLP: 2005.3 mGycm, Automated exposure control for dose reduction was used. CONTRAST: None CT of the brain is performed utilizing 3 mm thick sections through the posterior fossa and 3 mm thick sections through the remaining calvarium. Study is not performed within 24 hours of arrival to the hospital. No abnormal hyperdensity is present to suggest an acute intracranial hemorrhage. No mass lesion is evident. No acute infarcts are evident. Ventricles and sulci are appropriate for the patient age. Some minimal fluid is within the posterior mastoid air cells greater on the right. Small air-fluid le vels within the sphenoid sinus. IMPRESSIONS: 1. No acute intracranial process radiographically evident. Follow-up MRI can be performed as clinic ally indicated. 2. Air-fluid levels within the sphenoid and mastoid air cells. Correlate for acute sinusitis. Finding s can however be related to intubation.
[2022-03-03 17:02] LABS: Glucose,Whole Blood 331 mg/dL (70-110)
[2022-03-03] MEDS: DEXTROSE 5%-0.45% NACL 1,000 ML IV SCH (17:53)
[2022-03-03] MEDS: AMIODARONE 450 MG in DEXTROSE 5% IN WATER 250 ML IV SCH ×2 (20:49)
[2022-03-03] MEDS: DILTIAZEM 125 MG in SODIUM CHLORIDE 0.9% 100 ML IV SCH (20:50)
[2022-03-03 23:01] LABS: Glucose,Whole Blood 105 mg/dL (70-110)
[2022-03-04] MEDS: INSULIN ASPART (NovoLOG) 100 UNIT/ML VIAL SQ SCH ×4 (00:22→17:58)
[2022-03-04] MEDS: HYDROcodone/APAP 5-325MG 1 EACH TAB PO PRN (01:17)
[2022-03-04] MEDS: DEXTROSE 5%-0.45% NACL 1,000 ML IV SCH ×2 (01:24→05:50)
[2022-03-04] MEDS: cloNIDine HCL 0.1 MG TAB PO SCH ×2 (04:24→08:32)
[2022-03-04] MEDS: ACETAMINOPHEN TAB 325 MG TAB PO PRN (05:03)
[2022-03-04 05:13] LABS: Glucose,Whole Blood 182 mg/dL (70-110)
[2022-03-04] MEDS: INSULIN DETEMIR (LEVEMIR) 100 UNIT/ML SYR SQ SCH (06:00)
[2022-03-04 06:32] LABS: Basophils % (A) 0 %; Eosinophils % (A) 0 %; HCT 29.6 % (39.0-53.0); HGB 9.8 gm/dL (13.0-17.5); Lymphocytes # (A) 0.8 k/uL (1.0-4.8); Lymphocytes % (A) 5 %; MCH 27.6 pg (25.0-35.0); MCHC 33.2 g/dL (31.0-37.0); MCV 82.9 fL (80.0-100.0); Mean Platelet Volume 7.5; Monocytes # (A) 0.4 k/uL (0-1.0); Monocytes % (A) 2 %; Neutrophils # (A) 15.3 k/uL (1.3-7.7); Neutrophils % (A) 92 %; Platelet Count 263 k/uL (150-450); RBC 3.57 m/uL (4.30-5.90); RDW 13.4 % (11.5-15.5); WBC 16.6 k/uL (3.8-10.6)
[2022-03-04 06:53] LABS: African American GFR (CKD) >90 (>60 ml/min/1.73 sqM); Anion Gap 6 mmol/L; Blood Urea Nitrogen 12 mg/dL (9-20); Carbon Dioxide 26 mmol/L (22-30); Chloride 104 mmol/L (98-107); Glucose 174 mg/dL (74-99); Non-African American GFR(CKD) >90 (>60 ml/min/1.73 sqM); Phosphorus 1.6 mg/dL (2.5-4.5); Sodium 136 mmol/L (137-145)
[2022-03-04 07:08] LABS: Potassium 2.7 mmol/L (3.5-5.1)
[2022-03-04] MEDS: POTASSIUM CHLORIDE ER 20 MEQ TAB.ER PO SCH ×3 (07:17→10:43)
[2022-03-04] MEDS: ENOXAPARIN 80 MG/0.8 ML SYRINGE SQ SCH ×2 (08:29→22:11)
[2022-03-04] MEDS: SODIUM BICARBONATE TAB 650 MG TAB PO SCH ×3 (08:29→21:56)
[2022-03-04] MEDS: AMIODARONE 200 MG TAB PO SCH ×2 (08:29→21:56)
[2022-03-04] MEDS: PANTOPRAZOLE 40 MG/10 ML VIAL IV SCH (08:29)
[2022-03-04] MEDS: METOPROLOL TARTRATE 50 MG TAB PO SCH ×2 (08:30→21:56)
[2022-03-04] MEDS: NICOTINE 21MG/24HR PATCH TRANSDERM SCH (08:30)
--- NOTE | 2022-03-04 08:30 | PN ---
PROGRESS NOTE SUBJECTIVE: This gentleman has diabetic ketoacidosis and this has resolved. He is doing well. He went into atrial fibrillation this morning with a very rapid rate. I recommended amiodarone, but converted to sinus rhythm. I am suggesting we will give IV amiodarone bolus and drip and then switch him to oral. Hemodynamically, he is more stable. His Levophed dose is reduced. OBJECTIVE: HEART: S1, S2 heard normally. Short systolic murmur noted. LUNGS: Revealing an improved air entry. ABDOMEN: Exam unchanged. LOWER EXTREMITIES: Exam unchanged. PLAN: The patient still has an NG tube in and his DKA has improved. Prognosis remains guarded. MMODL / IJN: [id number] /
--- NOTE | 2022-03-04 10:38 | P.PN ---
Subjective Progress Note Date: 03/04/22 This is 62-year-old male patient who follows with Dr. Mendez as his primary care provider. He has history of diabetes mellitus, chronic and ongoing tobacco dependence, ADHD. He presented here to the emergency room yesterday with a 2 hour history of palpitations and shortness of breath. No precipitating factors. No relieving factors. No nausea vomiting. No chest pain. No dizziness or lightheadedness. He was felt to be in SVT and was treated with a Ashlie with subsequent conversion to atrial fibrillation with a rapid ventricular response. The patient was also noted to be in diabetic ketoacidosis with initial glucose of 564. Positive acetone. Drug screen negative. White count 32. Hemoglobin 11.0. He was 383. Sodium 135. Potassium 3.4. Chloride 105. Bicarbonate8. Anion gap 22. BUN 40. Creatinine 0.67. Troponin negative 2. ProBNP 1270. Urinalysis with 4+ ketones, large leukocyte esterase, few WBCs. Chest x-ray reveals no acute pulmonary process. Nasogastric tube in place. The patient is seen today in the ICU. He is resting fairly comfortably in bed. He is maintaining good O2 saturations in the 90s on room air. Arousable. He is continued on Cardizem drip at 5 mg per hour. Insulin drip at 8 units per hour. Heparin drip per weight base protocol. 0.9% normal saline at 200 mL per hour. Remains in the DKA protocol. Currently on ceftriaxone. Pro-calcitonin pending. The patient is seen today 03/03/2022 in follow-up in the intensive care unit. He is a bit more awake and alert. Still somewhat lethargic. He is maintaining O2 saturations in the 90s on room air. He is still febrile. Tachycardic. Currently on D5.45 with 20 of KCl at 150 ML's per hour. Insulin drip is on hold. He remains on Cardizem drip at 10 mg per hour. Heparin drain drip per we ight base protocol. He had an episode of A. fib with RVR this morning and the plan is for additional amiodarone drip. Urine culture pending. White count 23. Hemoglobin 10.8. Sodium 136. Potassium 3.0. Bicarb 19. BUN 22. Creatinine 0.50. Glucose 282. Urine culture pending. Pro-calcitonin 1.03. He is on antibiotics in the form of ceftriaxone. Nasogastric tube remains in place for electrolyte replacement. The patient is seen today 03/04/2022 in follow-up in the intensive care unit. Lamont balderas remains somewhat lethargic. Arousable. Nasogastric tube remains in place. He is maintaining O2 saturations in the 90s on room air. IV is D5.45 at 50 MLS per hour. Remains on antibiotics in the form of ceftriaxone. Currently on amiodarone and metoprolol for rate control. Anticoagulated with Lovenox. NicoDerm patch in place. White count 16.6. Hemoglobin 9.8. Sodium 136. Potassium 2.7. Bicarb 26. BUN 12. Creatinine 0.42. Glucose 174. Objective - Vital Signs Vital signs: Vital Signs Temp 98.2 F 03/04/22 08:00 Pulse 96 03/04/22 09:00 Resp 23 03/04/22 09:00 BP 167/73 03/04/22 09:00 Pulse Ox 97 03/04/22 09:00 FiO2 21 03/04/22 07:22 Intake & Output 03/03/22 03/04/22 03/04/22 18:59 06:59 18:59 Intake Total 2197.455 1950 300 Output Total 1500 1400 300 Balance 697.455 550 0 Weight 76.3 kg Intake: IV 1650 1950 300 D5-0.45% NaCl with KCl 1500 20Meq/l 1,000 ml @ 150 mls/hr IV .Q6H40M [facility] Rx# :[id number] Dextrose 5%-0.45% NaCl 1, 150 1950 300 000 ml @ 150 mls/hr IV . Q6H40M [facility] Rx#:[id number] Intake, IV Titration 547.455 Amount Heparin Sod,Pork in 0.45% 245.727 NaCl 25,000 unit In 0.45 % NaCl 1 250ml.bag @ 12 UNITS/KG/HR 8.546 mls/hr IV .Q24H [facility] Rx#: [id number] Insulin Regular 100 unit 1.728 In Sodium Chloride 0.9% 100 ml @ 0.1 UNITS/KG/HR 7.193 mls/hr IV .Q14H3M [facility] Rx#:[id number] Potassium Phosphate 10 250 mmol In Sodium Chloride 0 .9% 250 ml @ 125 mls/hr IV Q2H [facility] Rx#:[id number] cefTRIAXone 1 gm In 50 Sodium Chloride 0.9% 50 ml @ 100 mls/hr IVPB Q12HR [facility] Rx#:[id number] Output: Urine 1500 1400 300 Other: Voiding Method Indwelling Catheter Indwelling Catheter Indwelling Catheter - Exam GENERAL EXAM: Arousable, lethargic, thin 62-year-old male, on room air, fairly comfortable in no apparent distress. HEAD: Normocephalic. EYES: Normal reaction of pupils, equal size. NOSE: Nasogastric tube secured in place. Clear with pink turbinates. THROAT: No erythema or exudates. NECK: No masses, no JVD. CHEST: No chest wall deformity. LUNGS: Equal air entry with no crackles, wheeze, rhonchi or dullness. CVS: S1 and S2 normal with no audible murmur, irregular rhythm. ABDOMEN: No hepatosplenomegaly, normal bowel sounds, no guarding or rigidity. SPINE: No scoliosis or deformity SKIN: No rashes CENTRAL NERVOUS SYSTEM: No focal deficits, tone is normal in all 4 extremities. EXTREMITIES: There is no peripheral edema. No clubbing, no cyanosis. Peripheral pulses are intact. - Labs CBC & Chem 7: 03/04/22 05:36 03/04/22 05:36 Labs: Abnormal Lab Results - Last 24 Hours (Table) 03/03/22 03/03/22 03/03/22 Range/Units 09:56 11:07 12:26 WBC (3.8-10.6) k/uL RBC (4.30-5.90) m/uL Hgb (13.0-17.5) gm/dL Hct (39.0-53.0) % Neutrophils # (1.3-7.7) k/uL Lymphocytes # (1.0-4.8) k/uL Sodium 136 L (137-145) mmol/L Potassium 3.0 L (3.5-5.1) mmol/L Carbon Dioxide 19 L (22-30) mmol/L BUN 22 H (9-20) mg/dL Creatinine 0.50 L (0.66-1.25) mg/dL Glucose 282 H (74-99) mg/dL POC Glucose (mg/dL) 320 H 351 H (70-110) mg/dL Calcium 7.5 L (8.4-10.2) mg/dL Phosphorus (2.5-4.5) mg/dL AST 15 L (17-59) U/L Total Protein 5.0 L (6.3-8.2) g/dL Albumin 2.2 L (3.5-5.0) g/dL 03/03/22 03/04/22 03/04/22 Range/Units 17:00 05:11 05:36 WBC 16.6 H (3.8-10.6) k/uL RBC 3.57 L (4.30-5.90) m/uL Hgb 9.8 L (13.0-17.5) gm/dL Hct 29.6 L (39.0-53.0) % Neutrophils # 15.3 H (1.3-7.7) k/uL Lymphocytes # 0.8 L (1.0-4.8) k/uL Sodium (137-145) mmol/L Potassium (3.5-5.1) mmol/L Carbon Dioxide (22-30) mmol/L BUN (9-20) mg/dL Creatinine (0.66-1.25) mg/dL Glucose (74-99) mg/dL POC Glucose (mg/dL) 331 H 182 H (70-110) mg/dL Calcium (8.4-10.2) mg/dL Phosphorus (2.5-4.5) mg/dL AST (17-59) U/L Total Protein (6.3-8.2) g/dL Albumin (3.5-5.0) g/dL 03/04/22 Range/Units 05:36 WBC (3.8-10.6) k/uL RBC (4.30-5.90) m/uL Hgb (13.0-17.5) gm/dL Hct (39.0-53.0) % Neutrophils # (1.3-7.7) k/uL Lymphocytes # (1.0-4.8) k/uL Sodium 136 L (137-145) mmol/L Potassium 2.7 L* (3.5-5.1) mmol/L Carbon Dioxide (22-30) mmol/L BUN (9-20) mg/dL Creatinine 0.42 L (0.66-1.25) mg/dL Glucose 174 H (74-99) mg/dL POC Glucose (mg/dL) (70-110) mg/dL Calcium 7.0 L (8.4-10.2) mg/dL Phosphorus 1.6 L (2.5-4.5) mg/dL AST (17-59) U/L Total Protein (6.3-8.2) g/dL Albumin (3.5-5.0) g/dL Microbiology - Last 24 Hours (Table) 03/02/22 08:12 Urine Culture - Preliminary Urine,Voided Gram Neg Bacilli Assessment and Plan Assessment: Acute diabetic ketoacidosis Altered mental status Leukocytosis Hypokalemia Anion gap metabolic acidosis secondary to above New onset atrial fibrillation with rapid ventricular response Urinary tract infection, culture pending History of diabetes mellitus Chronic and ongoing tobacco dependence History of ADHD Plan: The patient was seen and evaluated Labs and medications reviewed Continue amiodarone, metoprolol, Lovenox Continue DKA protocol Continue ceftriaxone, urine culture with gram-negative bacilli Replace electrolytes Transfer to the regular medical floor with telemetry We will continue to follow I have personally seen and examined the patient, performed the documentation and the assessment and plan as written. Number of minutes spent on the visit: 10.
--- NOTE | 2022-03-04 11:20 | P.PN ---
Progress Note - Text Progress Note Date: 03/04/22 Chief Complaint: Decreased responsiveness This is a 62-year-old patient, follows with Dr. Mendez. Chronic stable medical conditions include ADHD, herniated disc lower back, smoker. Patient's son at the bedside. Patient yesterday took his medication was going to the bathroom and the son noticed that he was feeling looking weak. He became less responsive. Never passed out. Shaky. No fever or chills reported. EMS was called out. Patient is found to be in atrial fibrillation with rapid ventricular rate. In the ER started on IV heparin, given adenosine, later put on IV Cardizem. Also found to be in DKA. Put on insulin drip. Potassium was very low NG tube had to be pacemaker placement. Tired. Most of the history of pain medicine at the bedside. Patient rather tired and lethargic. Admitted with new onset of atrial fibrillation uncontrolled, diabetic k etoacidosis, acute metabolic encephalopathy, severe hypokalemia. Started on Cardizem drip, IV heparin, insulin drip. NG tube was placed for potassium replacement. March 03: ICU: Patient went back into sinus rhythm. Did have 3-4 minutes burst of A. fib with rapid ventricular rate and rhythm back in sinus rhythm. IV heparin is being changed over to subcu Lovenox 70 mg every 12. Insulin drip is discontinued. Put on Levemir 10 units. NG tube in place. Potassium being replaced. Still patient is rather lethargic. We'll get a computed tomography scan of the brain. And EEG. March 04: ICU: Remains in sinus rhythm. Has been off Cardizem drip. Slightly more awake but still lethargic. Attempted to answer questions. Potassium down to 2.7. Potassium being replaced. At magnesium. By mouth amiodarone. On IV ceftriaxone for possible UTI. Sinus rhythm. Stop Catapres increase Lopressor to 100 mg twice a day. Check ammonia level. Phosphorus being replaced. Consult neurology. CT brain negative for stroke. EEG results pending. Active Medications Acetaminophen (Acetaminophen Tab 325 Mg Tab) 650 mg PO Q6HR PRN PRN Reason: Mild Pain or Fever > 100.5 Last Admin: 03/04/22 05:03 Dose: 650 mg Al Hydroxide/Mg Hydroxide (Mag Hydrox/Al Hydrox/Simeth 30 Ml Cup) 15 ml PO Q6HR PRN PRN Reason: Indigestion Amiodarone HCl (Amiodarone 200 Mg Tab) 200 mg PO BID [facility] Last Admin: 03/04/22 08:29 Dose: 200 mg Dextrose/Water (Dextrose 50% Syringe 50 Ml) 25 ml IVP PER PROTOCOL PRN; Protocol PRN Reason: Hypoglycemia Dextrose/Water (Dextrose 50% Syringe 50 Ml) 50 ml IVP PER PROTOCOL PRN; Protocol PRN Reason: Hypoglycemia Enoxaparin Sodium (Enoxaparin 80 Mg/0.8 Ml Syringe) 70 mg SQ Q12HR [facility] Last Admin: 03/04/22 08:29 Dose: 70 mg Ceftriaxone Sodium 1 gm/ (Sodium Chloride) 50 mls @ 100 mls/hr IVPB Q12HR [facility]; Protocol Last Admin: 03/04/22 08:29 Dose: 100 mls/hr Lactated Ringer's (Lactated Ringers) 1,000 mls @ 125 mls/hr IV .Q8H [facility] Insulin Aspart (Insulin Aspart (Novolog) 100 Unit/Ml Vial) 0 unit SQ Q6HR [facility]; Protocol Last Admin: 03/04/22 05:14 Dose: 2 unit Insulin Detemir (Insulin Detemir (Levemir) 100 Unit/Ml Syr) 10 unit SQ DAILY@0700 [facility] Last Admin: 03/04/22 06:00 Dose: 10 unit Magnesium Oxide (Magnesium Oxide 400 Mg Tab) 400 mg PO TID [facility] Metoprolol Tartrate (Metoprolol Tartrate 50 Mg Tab) 100 mg PO BID [facility] Miscellaneous Information (Potassium Replacement Protocol 1 Each Misc) 1 each MISCELLANE DAILY PRN; Protocol PRN Reason: Per Protocol Miscellaneous Information (Phosphorus Replacement Protoco 1 Each Misc) 1 each MISCELLANE DAILY PRN; Protocol PRN Reason: Per Protocol Naloxone HCl (Naloxone 0.4 Mg/Ml 1 Ml Vial) 0.2 mg IV Q2M PRN PRN Reason: Opioid Reversal Nicotine (Nicotine 21mg/24hr Patch) 1 patch TRANSDERM DAILY [facility] Last Admin: 03/04/22 08:30 Dose: 1 patch Ondansetron HCl (Ondansetron 4 Mg/2 Ml Vial) 4 mg IVP Q8HR PRN PRN Reason: Nausea And Vomiting Pantoprazole Sodium (Pantoprazole 40 Mg Tablet) 40 mg PO AC-BID [facility] Sodium Bicarbonate (Sodium Bicarbonate Tab 650 Mg Tab) 650 mg PO TID [facility] Last Admin: 03/04/22 08:29 Dose: 650 mg Tramadol HCl (Tramadol 50 Mg Tab) 50 mg PO QID PRN PRN Reason: Pain Past medical history to include: Diabetes, possible ADHD, chronic low back pain, herniated disc, Social history: Son lives with the patient. 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 Smokes about a pack a day. Alcohol occasionally. Physical examination: VITAL SIGNS: 98.2, 96, 24, 167 with 73, 97% room air GENERAL: Tired, laying in bed lethargic but slightly more awake. EYES: Pupils equal. Conjunctiva normal. HEENT: External appearance of nose and ears normal, oral cavity dry mucous membranes with poor hygiene, NG tube. NECK: JVD not raised; masses not palpable. HEART: Heart sounds normal; no edema. LUNGS: Respiratory rate increased; decreased breath sounds. ABDOMEN: Soft, nontender, liver spleen not palpable, no masses palpable. PSYCH: Attempted to answer questions. MUSCULOSKELETAL:No Clubbing/cyanosis;muscles-grossly intact NEUROLOGICAL: Cranial nerves grossly intact; no facial asymmetry, INVESTIGATIONS, reviewed in the clinical context: Computed tomography scan brain: No acute processes reported March 04: WBC 16.6 hemoglobin 9.8 potassium 2.7 creatinine 0.42 phosphorus 1.6 March 03: Sodium 136 potassium 3 BUN 22 creatinine 0.50 albumin 2.2 WBC 36.7 hemoglobin 14.7 platelets 470 potassium 2.7 sodium 128 bicarb 9 BUN 25 crit 0.89 blood glucose 564 UA positive for ketone 4+, leukoesterase negative for nitrite Urine drug screen: Negative Serum acetone positive EKG tracing personally reviewed by me-heart rate 171, ST segment depression Chest x-ray film personally reviewed by me-prominent pulmonary artery. Elevated right diaphragm. 2-D echocardiogram: EF 55-60%. Assessment and plan: -Paroxysmal atrial fibrillation with a rapid ventricular rate, back in sinus rhythm IV Cardizem drip-discontinued, IV heparin drip-changed to Lovenox. Cardiology consulted. Lopressor 50 mg twice a day. Oral amiodarone -IV heparin drip monitoring-discontinued Follow PTT -Diabetic ketoacidosis: Better IV insulin per protocol, discontinue. Levemir 10 units daily. Accu-Cheks every 6 -Acute metabolic encephalopathy, multifactorial, slow to respond Computed tomography scan of brain unremarkable.. Pending EEG. Neurology consulted. Change Catapres to Lopressor. For his central affect. -Severe hypokalemia: Slow to improve Aggressive replacement of potassium. Follow-up magnesia. -Hypophosphatemia: Uncontrolled Replace phosphorus -COPD in a current smoker Bronchodilators as needed -Chronic nicotine dependence, cigarette smoker Nicotine patch ICU. Patient is off Cardizem drip. Change clonidine to increased dose of Lopressor 100 mg twice a day. Replace potassium phosphorus. Add magnesium. Check ammonia level. Pending EEG results. Consult neurology. Do. expect patient to wake up more.
[2022-03-04 11:30] LABS: ALT 14 U/L (4-49); AST 17 U/L (17-59); African American GFR (CKD) >90 (>60 ml/min/1.73 sqM); Albumin 2.1 g/dL (3.5-5.0); Alkaline Phosphatase 75 U/L (38-126); Anion Gap 5 mmol/L; Blood Urea Nitrogen 10 mg/dL (9-20); Calcium 7.2 mg/dL (8.4-10.2); Carbon Dioxide 30 mmol/L (22-30); Chloride 101 mmol/L (98-107); Glucose 141 mg/dL (74-99); Non-African American GFR(CKD) >90 (>60 ml/min/1.73 sqM); Potassium 3.3 mmol/L (3.5-5.1); Sodium 136 mmol/L (137-145); Total Bilirubin 0.2 mg/dL (0.2-1.3)
[2022-03-04] MEDS: MAGNESIUM OXIDE 400 MG TAB PO SCH ×3 (12:16→22:01)
[2022-03-04] MEDS: LACTATED RINGERS 1,000 ML IV SCH ×2 (12:23→21:55)
[2022-03-04 12:37] LABS: Glucose,Whole Blood 161 mg/dL (70-110)
[2022-03-04] MEDS: AMIODARONE 450 MG in DEXTROSE 5% IN WATER 250 ML IV SCH ×2 (13:15)
[2022-03-04] MEDS: PANTOPRAZOLE 40 MG TABLET PO SCH (17:51)
[2022-03-04] MEDS: traMADol 50 MG TAB PO PRN (22:10)
--- NOTE | 2022-03-04 22:47 | P.CNNES ---
History of Present Illness Consult date: 03/04/22 Requesting physician: Jerardo Guillen Reason for Consult: Altered sensorium History of Present Illness: Patient is a 62-year-old male with history of diabetes, chronic tobacco use, ADHD came to the hospital by ambulance on 03/01/2022 at 8:10 PM for arrhythmia, palpitations and shortness of breath of 2 hours duration. He was also getting generalized weak and was about to fall, with his son caught him and lower to the ground. Patient was found to have atrial fibrillation. Patient started on IV heparin and Cardizem drip. Patient was also noted to be in diabetic ketoacidosis with initial glucose of 564 and positive acetone. Urine drug screen was negative. Patient was admitted to ICU. He was quite encephalopath ic. Patient was started on insulin drip. Patient was also diagnosed with UTI with gram-negative bacilli. Patient started on ceftriaxone. Patient was noted to be very lethargic, not responding fully, which prompted neurology consultation. CT scan of head and EEG were initiated. Patient's most recent blood test shows WBC 16.6 hemoglobin 9.8, platelets 263. Sodium 136 potassium 2.7, which improved to 3.3. Renal functions are normal. Rajesh panel is normal. Blood sugars is now 161. Patient's initial blood sugar was 564, sodium 128 and potassium 2.7. Acetone positive. UA showed moderate leukocyte esterase. Patient's urine cultures had grown Enterobacter clocae. 2-D echo revealed normal left ventricular size and systolic function with EF 55- 60%. Left atrial size appears at the upper limits of normal. CT head showed no acute intracranial process. He is referred levels within the sphenoid and mastoid air cells. Correlate for acute sinusitis. Findings can however be related to intubation. Chest x-ray revealed NG tube seen the tip and GE junction. Hyperinflation suggest COPD. Patient at present has much improved since around 4 PM. According to the nursing report, earlier this morning he was very lethargic, but now has perked up since 4 PM. He is following commands. He wants ice chips. Patient's [place] has been discontinued, and started on tramadol. Patient states that he has history of diabetes for "long time". He is following commands as per examination below. Review of Systems Constitutional: Denies chills, Denies fever Eyes: denies blurred vision, denies pain Ears, nose, mouth and throat: Reports dysphagia, Reports hoarseness, Reports nasal congestion, Reports sore throat Cardiovascular: Reports dyspnea on exertion, Reports edema, Reports irregular heart beat, Reports leg edema, Reports palpitations Respiratory: Reports wheezing Gastrointestinal: Denies abdominal pain, Denies diarrhea, Denies nausea, Denies vomiting Musculoskeletal: Reports low back pain Integumentary: Denies pruritus, Denies rash Neurological: Reports as per HPI Psychiatric: Denies anxiety, Denies depression Endocrine: Reports fatigue, Reports weight change Past Medical History Past Medical History: Diabetes Mellitus History of Any Multi-Drug Resistant Organisms: None Reported Past Surgical History: Orthopedic Surgery Additional Past Surgical History / Comment(s): back pain son states pt recently "slipped a disc" taking gabapentin. Past Psychological History: No Psychological Hx Reported Smoking Status: Current every day smoker Past Alcohol Use History: Rare Past Drug Use History: None Reported Medications and Allergies Home Medications Medication Instructions Recorded Confirmed Type Dextroamphetamine/Amphetamine 30 mg PO BID 03/01/22 03/01/22 History [Dextroamphetamine/Amphetamine 30 mg Tab] sitaGLIPtin [Januvia] 100 mg PO DAILY 03/02/22 03/02/22 History Allergies Allergy/AdvReac Type Severity Reaction Status Date / Time No Known Allergies Allergy Verified 03/01/22 22:26 Physical Examination - Vital Signs Vital Signs: Vital Signs Temp Pulse Pulse Resp BP BP Pulse Ox 03/04/22 14:00 99.2 F 99 20 153/85 03/04/22 09:00 96 23 167/73 97 03/04/22 08:00 98.2 F 96 24 132/80 95 03/04/22 07:22 99 03/04/22 07:00 90 23 132/80 98 03/04/22 06:00 106 H 19 107/85 90 L 03/04/22 05:00 104 H 18 166/85 97 03/04/22 04:00 98.5 F 96 21 163/94 97 03/04/22 03:10 89 19 163/94 97 03/04/22 02:00 93 19 150/73 96 03/04/22 01:00 100 20 170/93 96 03/04/22 00:00 99.1 F 96 17 160/91 96 03/03/22 23:00 89 20 157/101 96 03/03/22 22:00 75 15 154/80 96 03/03/22 21:00 90 18 143/87 97 03/03/22 20:00 100.1 F H 114 H 19 137/117 03/03/22 19:00 105 H 24 143/87 98 03/03/22 18:00 104 H 21 139/73 98 FiO2 03/04/22 14:00 03/04/22 09:00 03/04/22 08:00 03/04/22 07:22 21 03/04/22 07:00 03/04/22 06:00 03/04/22 05:00 03/04/22 04:00 03/04/22 03:10 03/04/22 02:00 03/04/22 01:00 03/04/22 00:00 03/03/22 23:00 03/03/22 22:00 03/03/22 21:00 03/03/22 20:00 03/03/22 19:00 03/03/22 18:00 Intake and Output 03/04/22 03/04/22 03/04/22 06:59 14:59 22:59 Intake Total 1350 300 Output Total 1000 300 Balance 350 0 Intake: IV 1350 300 Dextrose 5%-0.45% NaCl 1, 1350 300 000 ml @ 150 mls/hr IV . Q6H40M [facility] Rx#:[id number] Output: Urine 1000 300 Other: Voiding Method Indwelling Catheter Indwelling Catheter Weight 76.3 kg Patient is a late middle aged male, in no acute distress. Patient is slightly somnolent, but did wake up and was fairly well alert and awake. Patient knows it is February 2022 and that he is in [facility] in [place]. He could not tell name of the current president. Speech and language functions are normal. Patient can name and repeat very well. No aphasia or dysarthria. Attention, concentration and fund of knowledge is slightly limited. Patient is asking for ice chips. He has an NG tube in place. On cranial nerve examination, pupils are equal, round and reacting to light, visual aponte are full on confrontation, with no neglect on double simultaneous stimulation. Extraocular muscles are intact with no nystagmus. Face is symmetric, tongue protrudes to the midline. patient has white spots on the tong ue, which appears possible thrush. Palatal elevation and sensation normal, hearing and shoulder shrug normal, facial sensation normal. On muscle strength testing, the strength is diffusely 5- all over in the arms bilaterally. In the lower extremities, patient can only wiggle his feet and move slightly his hips with hip adduction. He is very weak in the lower limbs. Deep tendon reflexes are absent and plantars are flat. Sensory to touch is equal with no neglect on double simultaneous stimulation. Cerebellar function showed no ataxia for [id number] testing. Cannot perform in the lower limbs. Gait deferred.. On general examination, there is no carotid bruit or murmur, S1-S2 audible. Chest is clear on consultation. Abdomen is soft nontender. No organomegaly, bowel sounds present. Patient has moderate, 2+ pitting peripheral edema. Results - Laboratory Findings CBC and BMP: 03/04/22 05:36 03/04/22 10:56 Abnormal Lab Findings: Abnormal Labs 03/01/22 03/01/22 03/01/22 20:15 20:15 20:37 WBC 36.7 H RBC Hgb Hct Plt Count 470 H Neutrophils # Neutrophils # (Manual) 34.80 H Lymphocytes # Lymphocytes # (Manual) 0.73 L Myelocytes # (Manual) 0.37 H APTT VBG pH VBG pCO2 VBG HCO3 Sodium 128 L Potassium 2.7 L* Chloride 87 L Carbon Dioxide 9 L* BUN 25 H Creatinine Glucose 564 H* POC Glucose (mg/dL) Calcium Phosphorus Magnesium 2.5 H AST Alkaline Phosphatase 154 H Total Protein Albumin Procalcitonin Urine Protein Trace H Urine Glucose (UA) 4+ H Urine Ketones 4+ H Urine Blood Moderate H Ur Leukocyte Esterase Moderate H Urine RBC 15 H Urine WBC 56 H Urine WBC Clumps Urine Bacteria Occasional H Hyaline Casts 7 H Urine Mucus Rare H 03/01/22 03/02/22 03/02/22 23:36 01:18 01:24 WBC RBC Hgb Hct Plt Count Neutrophils # Neutrophils # (Manual) Lymphocytes # Lymphocytes # (Manual) Myelocytes # (Manual) APTT VBG pH 7.21 L VBG pCO2 21 L VBG HCO3 8 L* Sodium 129 L Potassium 3.3 L Chloride 95 L Carbon Dioxide 9 L* BUN 31 H Creatinine Glucose 490 H POC Glucose (mg/dL) 516 H Calcium 8.2 L Phosphorus Magnesium AST 14 L Alkaline Phosphatase Total Protein 5.7 L Albumin 2.7 L Procalcitonin Urine Protein Urine Glucose (UA) Urine Ketones Urine Blood Ur Leukocyte Esterase Urine RBC Urine WBC Urine WBC Clumps Urine Bacteria Hyaline Casts Urine Mucus 03/02/22 03/02/22 03/02/22 03:59 03:59 04:01 WBC RBC Hgb Hct Plt Count Neutrophils # Neutrophils # (Manual) Lymphocytes # Lymphocytes # (Manual) Myelocytes # (Manual) APTT VBG pH VBG pCO2 VBG HCO3 Sodium 131 L Potassium 2.5 L* Chloride Carbon Dioxide 8 L* BUN 33 H Creatinine Glucose 394 H POC Glucose (mg/dL) 399 H Calcium Phosphorus 2.3 L Magnesium AST Alkaline Phosphatase Total Protein Albumin Procalcitonin Urine Protein Urine Glucose (UA) Urine Ketones Urine Blood Ur Leukocyte Esterase Urine RBC Urine WBC Urine WBC Clumps Urine Bacteria Hyaline Casts Urine Mucus 03/02/22 03/02/22 03/02/22 05:22 06:37 06:40 WBC 32.1 H RBC 3.89 L Hgb 11.0 L D Hct 33.9 L Plt Count Neutrophils # 30.1 H Neutrophils # (Manual) Lymphocytes # 0.8 L Lymphocytes # (Manual) Myelocytes # (Manual) APTT VBG pH VBG pCO2 VBG HCO3 Sodium Potassium Chloride Carbon Dioxide BUN Creatinine Glucose POC Glucose (mg/dL) 422 H 374 H Calcium Phosphorus Magnesium AST Alkaline Phosphatase Total Protein Albumin Procalcitonin Urine Protein Urine Glucose (UA) Urine Ketones Urine Blood Ur Leukocyte Esterase Urine RBC Urine WBC Urine WBC Clumps Urine Bacteria Hyaline Casts Urine Mucus 03/02/22 03/02/22 03/02/22 07:03 07:54 08:06 WBC RBC Hgb Hct Plt Count Neutrophils # Neutrophils # (Manual) Lymphocytes # Lymphocytes # (Manual) Myelocytes # (Manual) APTT VBG pH VBG pCO2 VBG HCO3 Sodium 135 L Potassium 3.4 L Chloride Carbon Dioxide 8 L* BUN 40 H Creatinine Glucose 352 H POC Glucose (mg/dL) 499 H 400 H Calcium Phosphorus 2.2 L Magnesium AST Alkaline Phosphatase Total Protein Albumin Procalcitonin Urine Protein Urine Glucose (UA) Urine Ketones Urine Blood Ur Leukocyte Esterase Urine RBC Urine WBC Urine WBC Clumps Urine Bacteria Hyaline Casts Urine Mucus 03/02/22 03/02/22 03/02/22 08:12 09:05 09:52 WBC RBC Hgb Hct Plt Count Neutrophils # Neutrophils # (Manual) Lymphocytes # Lymphocytes # (Manual) Myelocytes # (Manual) APTT VBG pH VBG pCO2 VBG HCO3 Sodium Potassium Chloride Carbon Dioxide BUN Creatinine Glucose POC Glucose (mg/dL) 288 H 267 H Calcium Phosphorus Magnesium AST Alkaline Phosphatase Total Protein Albumin Procalcitonin Urine Protein Trace H Urine Glucose (UA) 4+ H Urine Ketones 4+ H Urine Blood Trace H Ur Leukocyte Esterase Large H Urine RBC Urine WBC 98 H Urine WBC Clumps Few H Urine Bacteria Rare H Hyaline Casts Urine Mucus Rare H 03/02/22 03/02/22 03/02/22 11:04 11:46 11:46 WBC RBC Hgb Hct Plt Count Neutrophils # Neutrophils # (Manual) Lymphocytes # Lymphocytes # (Manual) Myelocytes # (Manual) APTT VBG pH VBG pCO2 VBG HCO3 Sodium Potassium Chloride Carbon Dioxide BUN Creatinine Glucose POC Glucose (mg/dL) 163 H Calcium Phosphorus 1.2 L Magnesium AST Alkaline Phosphatase Total Protein Albumin Procalcitonin 1.03 H Urine Protein Urine Glucose (UA) Urine Ketones Urine Blood Ur Leukocyte Esterase Urine RBC Urine WBC Urine WBC Clumps Urine Bacteria Hyaline Casts Urine Mucus 03/02/22 03/02/22 03/02/22 12:03 13:14 13:56 WBC RBC Hgb Hct Plt Count Neutrophils # Neutrophils # (Manual) Lymphocytes # Lymphocytes # (Manual) Myelocytes # (Manual) APTT VBG pH VBG pCO2 VBG HCO3 Sodium Potassium Chloride Carbon Dioxide BUN Creatinine Glucose POC Glucose (mg/dL) 130 H 115 H 148 H Calcium Phosphorus Magnesium AST Alkaline Phosphatase Total Protein Albumin Procalcitonin Urine Protein Urine Glucose (UA) Urine Ketones Urine Blood Ur Leukocyte Esterase Urine RBC Urine WBC Urine WBC Clumps Urine Bacteria Hyaline Casts Urine Mucus 03/02/22 03/02/22 03/02/22 15:13 16:18 17:33 WBC RBC Hgb Hct Plt Count Neutrophils # Neutrophils # (Manual) Lymphocytes # Lymphocytes # (Manual) Myelocytes # (Manual) APTT VBG pH VBG pCO2 VBG HCO3 Sodium Potassium Chloride Carbon Dioxide BUN Creatinine Glucose POC Glucose (mg/dL) 158 H 180 H 225 H Calcium Phosphorus Magnesium AST Alkaline Phosphatase Total Protein Albumin Procalcitonin Urine Protein Urine Glucose (UA) Urine Ketones Urine Blood Ur Leukocyte Esterase Urine RBC Urine WBC Urine WBC Clumps Urine Bacteria Hyaline Casts Urine Mucus 03/02/22 03/02/22 03/02/22 17:59 18:14 18:14 WBC RBC Hgb Hct Plt Count Neutrophils # Neutrophils # (Manual) Lymphocytes # Lymphocytes # (Manual) Myelocytes # (Manual) APTT 43.2 H VBG pH VBG pCO2 VBG HCO3 Sodium Potassium Chloride Carbon Dioxide BUN Creatinine Glucose POC Glucose (mg/dL) 207 H Calcium Phosphorus 1.4 L Magnesium AST Alkaline Phosphatase Total Protein Albumin Procalcitonin Urine Protein Urine Glucose (UA) Urine Ketones Urine Blood Ur Leukocyte Esterase Urine RBC Urine WBC Urine WBC Clumps Urine Bacteria Hyaline Casts Urine Mucus 03/02/22 03/02/22 03/02/22 18:14 18:59 19:55 WBC RBC Hgb Hct Plt Count Neutrophils # Neutrophils # (Manual) Lymphocytes # Lymphocytes # (Manual) Myelocytes # (Manual) APTT VBG pH VBG pCO2 VBG HCO3 Sodium 136 L Potassium Chloride 108 H Carbon Dioxide 16 L BUN 36 H Creatinine 0.55 L Glucose 214 H POC Glucose (mg/dL) 286 H 289 H Calcium 8.0 L Phosphorus Magnesium AST Alkaline Phosphatase Total Protein Albumin Procalcitonin Urine Protein Urine Glucose (UA) Urine Ketones Urine Blood Ur Leukocyte Esterase Urine RBC Urine WBC Urine WBC Clumps Urine Bacteria Hyaline Casts Urine Mucus 03/02/22 03/02/22 03/02/22 20:54 21:48 23:10 WBC RBC Hgb Hct Plt Count Neutrophils # Neutrophils # (Manual) Lymphocytes # Lymphocytes # (Manual) Myelocytes # (Manual) APTT VBG pH VBG pCO2 VBG HCO3 Sodium Potassium Chloride Carbon Dioxide BUN Creatinine Glucose POC Glucose (mg/dL) 290 H 201 H 268 H Calcium Phosphorus Magnesium AST Alkaline Phosphatase Total Protein Albumin Procalcitonin Urine Protein Urine Glucose (UA) Urine Ketones Urine Blood Ur Leukocyte Esterase Urine RBC Urine WBC Urine WBC Clumps Urine Bacteria Hyaline Casts Urine Mucus 03/02/22 03/03/22 03/03/22 23:58 00:33 00:56 WBC RBC Hgb Hct Plt Count Neutrophils # Neutrophils # (Manual) Lymphocytes # Lymphocytes # (Manual) Myelocytes # (Manual) APTT 56.1 H VBG pH VBG pCO2 VBG HCO3 Sodium Potassium Chloride Carbon Dioxide BUN Creatinine Glucose POC Glucose (mg/dL) 190 H 196 H Calcium Phosphorus Magnesium AST Alkaline Phosphatase Total Protein Albumin Procalcitonin Urine Protein Urine Glucose (UA) Urine Ketones Urine Blood Ur Leukocyte Esterase Urine RBC Urine WBC Urine WBC Clumps Urine Bacteria Hyaline Casts Urine Mucus 03/03/22 03/03/22 03/03/22 01:55 02:52 03:51 WBC RBC Hgb Hct Plt Count Neutrophils # Neutrophils # (Manual) Lymphocytes # Lymphocytes # (Manual) Myelocytes # (Manual) APTT VBG pH VBG pCO2 VBG HCO3 Sodium Potassium Chloride Carbon Dioxide BUN Creatinine Glucose POC Glucose (mg/dL) 116 H 142 H 158 H Calcium Phosphorus Magnesium AST Alkaline Phosphatase Total Protein Albumin Procalcitonin Urine Protein Urine Glucose (UA) Urine Ketones Urine Blood Ur Leukocyte Esterase Urine RBC Urine WBC Urine WBC Clumps Urine Bacteria Hyaline Casts Urine Mucus 03/03/22 03/03/22 03/03/22 05:10 05:43 06:51 WBC 23.0 H RBC 3.98 L Hgb 10.8 L Hct 33.5 L Plt Count Neutrophils # 21.6 H Neutrophils # (Manual) Lymphocytes # 0.6 L Lymphocytes # (Manual) Myelocytes # (Manual) APTT VBG pH VBG pCO2 VBG HCO3 Sodium Potassium Chloride Carbon Dioxide BUN Creatinine Glucose POC Glucose (mg/dL) 143 H 195 H Calcium Phosphorus Magnesium AST Alkaline Phosphatase Total Protein Albumin Procalcitonin Urine Protein Urine Glucose (UA) Urine Ketones Urine Blood Ur Leukocyte Esterase Urine RBC Urine WBC Urine WBC Clumps Urine Bacteria Hyaline Casts Urine Mucus 03/03/22 03/03/22 03/03/22 06:51 06:51 06:55 WBC RBC Hgb Hct Plt Count Neutrophils # Neutrophils # (Manual) Lymphocytes # Lymphocytes # (Manual) Myelocytes # (Manual) APTT 43.1 H VBG pH VBG pCO2 VBG HCO3 Sodium Potassium 3.0 L Chloride Carbon Dioxide BUN 23 H Creatinine 0.50 L Glucose 213 H POC Glucose (mg/dL) 208 H Calcium 7.6 L Phosphorus 1.3 L Magnesium AST Alkaline Phosphatase Total Protein Albumin Procalcitonin Urine Protein Urine Glucose (UA) Urine Ketones Urine Blood Ur Leukocyte Esterase Urine RBC Urine WBC Urine WBC Clumps Urine Bacteria Hyaline Casts Urine Mucus 03/03/22 03/03/22 03/03/22 08:02 08:57 09:56 WBC RBC Hgb Hct Plt Count Neutrophils # Neutrophils # (Manual) Lymphocytes # Lymphocytes # (Manual) Myelocytes # (Manual) APTT VBG pH VBG pCO2 VBG HCO3 Sodium 136 L Potassium 3.0 L Chloride Carbon Dioxide 19 L BUN 22 H Creatinine 0.50 L Glucose 282 H POC Glucose (mg/dL) 263 H 292 H Calcium 7.5 L Phosphorus Magnesium AST 15 L Alkaline Phosphatase Total Protein 5.0 L Albumin 2.2 L Procalcitonin Urine Protein Urine Glucose (UA) Urine Ketones Urine Blood Ur Leukocyte Esterase Urine RBC Urine WBC Urine WBC Clumps Urine Bacteria Hyaline Casts Urine Mucus 03/03/22 03/03/22 03/03/22 10:12 11:07 12:26 WBC RBC Hgb Hct Plt Count Neutrophils # Neutrophils # (Manual) Lymphocytes # Lymphocytes # (Manual) Myelocytes # (Manual) APTT VBG pH VBG pCO2 VBG HCO3 Sodium Potassium Chloride Carbon Dioxide BUN Creatinine Glucose POC Glucose (mg/dL) 321 H 320 H 351 H Calcium Phosphorus Magnesium AST Alkaline Phosphatase Total Protein Albumin Procalcitonin Urine Protein Urine Glucose (UA) Urine Ketones Urine Blood Ur Leukocyte Esterase Urine RBC Urine WBC Urine WBC Clumps Urine Bacteria Hyaline Casts Urine Mucus 03/03/22 03/04/22 03/04/22 17:00 05:11 05:36 WBC 16.6 H RBC 3.57 L Hgb 9.8 L Hct 29.6 L Plt Count Neutrophils # 15.3 H Neutrophils # (Manual) Lymphocytes # 0.8 L Lymphocytes # (Manual) Myelocytes # (Manual) APTT VBG pH VBG pCO2 VBG HCO3 Sodium Potassium Chloride Carbon Dioxide BUN Creatinine Glucose POC Glucose (mg/dL) 331 H 182 H Calcium Phosphorus Magnesium AST Alkaline Phosphatase Total Protein Albumin Procalcitonin Urine Protein Urine Glucose (UA) Urine Ketones Urine Blood Ur Leukocyte Esterase Urine RBC Urine WBC Urine WBC Clumps Urine Bacteria Hyaline Casts Urine Mucus 03/04/22 03/04/22 03/04/22 05:36 10:56 12:35 WBC RBC Hgb Hct Plt Count Neutrophils # Neutrophils # (Manual) Lymphocytes # Lymphocytes # (Manual) Myelocytes # (Manual) APTT VBG pH VBG pCO2 VBG HCO3 Sodium 136 L 136 L Potassium 2.7 L* 3.3 L Chloride Carbon Dioxide BUN Creatinine 0.42 L 0.47 L Glucose 174 H 141 H POC Glucose (mg/dL) 161 H Calcium 7.0 L 7.2 L Phosphorus 1.6 L Magnesium AST Alkaline Phosphatase Total Protein 5.0 L Albumin 2.1 L Procalcitonin Urine Protein Urine Glucose (UA) Urine Ketones Urine Blood Ur Leukocyte Esterase Urine RBC Urine WBC Urine WBC Clumps Urine Bacteria Hyaline Casts Urine Mucus Assessment and Plan Assessment: * Altered mental status, likely due to toxic metabolic encephalopathy. * Acute diabetic ketoacidosis * Poorly controlled diabetes * Metabolic acidosis * New onset atrial fibrillation * Urinary tract infection with Enterobacter Clocae, on ceftriaxone. * Tobacco use * History of ADHD. Plan: * Patient's mentation has much improved. He is fairly well oriented. Examination is nonfocal. Patient does have weakness of the lower extremities, related to his diabetic peripheral neuropathy. * We will check B12, folate, TSH. Patient's last hemoglobin A1c on 06/07/2016 was 12.7. We will check A1c. Ammonia is normal. * Optimize control of diabetes. * Recommended tobacco cessation. * EEG was performed today. Preliminary report revealed background slowing of moderate degree, consistent with encephalopathy. No epileptiform activity was seen. * Patient has new onset atrial fibrillation. Currently on full dose anticoagulation with Lovenox. * Medical management as per IM, critical care and other specialties. * Recommend PT OT. * Neurology will follow. Thank you for the consult.
--- NOTE | 2022-03-05 00:12 | EEG ---
ELECTROENCEPHALOGRAM REPORT PREAMBLE: This is a 62-year-old male with altered mental status. This study is performed to evaluate for any epileptiform activity. EEG FINDINGS: This is a 21-channel digital EEG recording with video competent, utilizing 10/20 international system with referential and bipolar montages. Background consists of well developed, moderately well regulated, mixed frequencies of 5 to 6 Hz theta, intermixed with some delta activity and some occasional periods of suppression, lasting for 1 second. Background does not seem to be reactive to eye opening or closing. Different stages of sleep were not clearly seen. No clear-cut epileptiform activity was seen. IMPRESSION: This is an abnormal EEG due to background slowing of moderate degree. This is suggestive of generalized cerebral dysfunction as can be seen with toxic metabolic encephalopathy or due to diffuse structural brain abnormality. Clinical correlation is recommended. No definitive epileptiform activity was seen. MMODL / IJN: [id number] /
[2022-03-05] MEDS: INSULIN ASPART (NovoLOG) 100 UNIT/ML VIAL SQ SCH ×5 (00:54→23:26)
[2022-03-05 00:55] LABS: Glucose,Whole Blood 132 mg/dL (70-110)
--- NOTE | 2022-03-05 05:44 | PN ---
PROGRESS NOTE SUBJECTIVE: Mr. Langley is in sinus rhythm today. He is in DKA, but his mentation is worse. He is not able to take oral medications. He still has an NG tube in. However, prognosis remains guarded. OBJECTIVE: VITAL SIGNS: Stable. HEART: S1, S2 heard normally. Short systolic murmur. LUNGS: Reveal diminished air entry. ABDOMEN: Soft. LOWER EXTREMITIES: Reveal diminished pulses. CENTRAL NERVOUS SYSTEM: Assessment was not performed. Prognosis remains guarded. MMODL / IJN: [id number] /
[2022-03-05 06:18] LABS: Glucose,Whole Blood 193 mg/dL (70-110)
[2022-03-05] MEDS: LACTATED RINGERS 1,000 ML IV SCH ×3 (06:21→18:53)
[2022-03-05] MEDS: INSULIN DETEMIR (LEVEMIR) 100 UNIT/ML SYR SQ SCH (06:22)
[2022-03-05] MEDS: NICOTINE 21MG/24HR PATCH TRANSDERM SCH (09:39)
[2022-03-05] MEDS: SODIUM BICARBONATE TAB 650 MG TAB PO SCH ×3 (09:39→21:05)
[2022-03-05] MEDS: MAGNESIUM OXIDE 400 MG TAB PO SCH ×3 (09:39→21:04)
[2022-03-05] MEDS: METOPROLOL TARTRATE 50 MG TAB PO SCH ×2 (09:39→21:04)
[2022-03-05] MEDS: AMIODARONE 200 MG TAB PO SCH ×2 (09:39→21:04)
[2022-03-05] MEDS: PANTOPRAZOLE 40 MG TABLET PO SCH ×2 (09:39→16:41)
[2022-03-05] MEDS: ENOXAPARIN 80 MG/0.8 ML SYRINGE SQ SCH ×2 (09:39→21:05)
[2022-03-05] MEDS: traMADol 50 MG TAB PO PRN ×2 (09:39→16:41)
--- NOTE | 2022-03-05 11:13 | P.PN ---
Subjective Progress Note Date: 03/05/22 This is 62-year-old male patient who follows with Dr. Mendez as his primary care provider. He has history of diabetes mellitus, chronic and ongoing tobacco dependence, ADHD. He presented here to the emergency room yesterday with a 2 hour history of palpitations and shortness of breath. No precipitating factors. No relieving factors. No nausea vomiting. No chest pain. No dizziness or lightheadedness. He was felt to be in SVT and was treated with a Ashlie with subsequent conversion to atrial fibrillation with a rapid ventricular response. The patient was also noted to be in diabetic ketoacidosis with initial glucose of 564. Positive acetone. Drug screen negative. White count 32. Hemoglobin 11.0. He was 383. Sodium 135. Potassium 3.4. Chloride 105. Bicarbonate8. Anion gap 22. BUN 40. Creatinine 0.67. Troponin negative 2. ProBNP 1270. Urinalysis with 4+ ketones, large leukocyte esterase, few WBCs. Chest x-ray reveals no acute pulmonary process. Nasogastric tube in place. The patient is seen today in the ICU. He is resting fairly comfortably in bed. He is maintaining good O2 saturations in the 90s on room air. Arousable. He is continued on Cardizem drip at 5 mg per hour. Insulin drip at 8 units per hour. Heparin drip per weight base protocol. 0.9% normal saline at 200 mL per hour. Remains in the DKA protocol. Currently on ceftriaxone. Pro-calcitonin pending. The patient is seen today 03/03/2022 in follow-up in the intensive care unit. He is a bit more awake and alert. Still somewhat lethargic. He is maintaining O2 saturations in the 90s on room air. He is still febrile. Tachycardic. Currently on D5.45 with 20 of KCl at 150 ML's per hour. Insulin drip is on hold. He remains on Cardizem drip at 10 mg per hour. Heparin drain drip per we ight base protocol. He had an episode of A. fib with RVR this morning and the plan is for additional amiodarone drip. Urine culture pending. White count 23. Hemoglobin 10.8. Sodium 136. Potassium 3.0. Bicarb 19. BUN 22. Creatinine 0.50. Glucose 282. Urine culture pending. Pro-calcitonin 1.03. He is on antibiotics in the form of ceftriaxone. Nasogastric tube remains in place for electrolyte replacement. The patient is seen today 03/04/2022 in follow-up in the intensive care unit. H e remains somewhat lethargic. Arousable. Nasogastric tube remains in place. He is maintaining O2 saturations in the 90s on room air. IV is D5.45 at 50 MLS per hour. Remains on antibiotics in the form of ceftriaxone. Currently on amiodarone and metoprolol for rate control. Anticoagulated with Lovenox. NicoDerm patch in place. White count 16.6. Hemoglobin 9.8. Sodium 136. Potassium 2.7. Bicarb 26. BUN 12. Creatinine 0.42. Glucose 174. The patient is seen today 03/05/2022 in follow-up in the intensive care unit. He is a bit more awake and alert today. Answering questions appropriately. Asking for pain medications. He is maintaining O2 saturations in the 90s on room air. Nasogastric tube remains in place. He is lactated Ringer's at 150 MLS per hour. He is continued on Levemir and NovoLog. NicoDerm patch in place. Urine culture was positive for Enterobacter cloacae. He remains on ceftriaxone. Blood glucose 193. Objective - Vital Signs Vital signs: Vital Signs Temp 98.4 F 03/05/22 02:00 Pulse 85 03/05/22 02:00 Resp 22 03/05/22 02:00 BP 133/66 03/05/22 02:00 Pulse Ox 97 03/05/22 02:00 FiO2 21 03/04/22 07:22 Intake & Output 03/04/22 03/05/22 03/05/22 18:59 06:59 18:59 Intake Total 300 Output Total 1900 900 Balance -1600 -900 Intake: IV 300 Dextrose 5%-0.45% NaCl 1, 300 000 ml @ 150 mls/hr IV . Q6H40M [facility] Rx#:[id number] Output: Urine 1900 900 Other: Voiding Method Indwelling Catheter Indwelling Catheter - Exam GENERAL EXAM: Awake, alert, thin 62-year-old male, on room air, fairly comfortable in no apparent distress. HEAD: Normocephalic. EYES: Normal reaction of pupils, equal size. NOSE: Nasogastric tube secured in place. Clear with pink turbinates. THROAT: No erythema or exudates. NECK: No masses, no JVD. CHEST: No chest wall deformity. LUNGS: Equal air entry with no crackles, wheeze, rhonchi or dullness. CVS: S1 and S2 normal with no audible murmur, irregular rhythm. ABDOMEN: No hepatosplenomegaly, normal bowel sounds, no guarding or rigidity. SPINE: No scoliosis or deformity SKIN: No rashes CENTRAL NERVOUS SYSTEM: No focal deficits, tone is normal in all 4 extremities. EXTREMITIES: There is no peripheral edema. No clubbing, no cyanosis. P eripheral pulses are intact. - Labs CBC & Chem 7: 03/04/22 05:36 03/04/22 10:56 Labs: Abnormal Lab Results - Last 24 Hours (Table) 03/04/22 03/04/22 03/05/22 Range/Units 10:56 12:35 00:53 Sodium 136 L (137-145) mmol/L Potassium 3.3 L (3.5-5.1) mmol/L Creatinine 0.47 L (0.66-1.25) mg/dL Glucose 141 H (74-99) mg/dL POC Glucose (mg/dL) 161 H 132 H (70-110) mg/dL Hemoglobin A1c (0.0-6.0) % Calcium 7.2 L (8.4-10.2) mg/dL Total Protein 5.0 L (6.3-8.2) g/dL Albumin 2.1 L (3.5-5.0) g/dL 03/05/22 03/05/22 Range/Units 05:32 06:17 Sodium (137-145) mmol/L Potassium (3.5-5.1) mmol/L Creatinine (0.66-1.25) mg/dL Glucose (74-99) mg/dL POC Glucose (mg/dL) 193 H (70-110) mg/dL Hemoglobin A1c 12.9 H (0.0-6.0) % Calcium (8.4-10.2) mg/dL Total Protein (6.3-8.2) g/dL Albumin (3.5-5.0) g/dL Microbiology - Last 24 Hours (Table) 03/02/22 08:12 Urine Culture - Final Urine,Voided Enterobacter cloacae Assessment and Plan Assessment: Acute diabetic ketoacidosis number recovered Altered mental status improved Leukocytosis, improved Hypokalemia, improved Anion gap metabolic acidosis secondary to above New onset atrial fibrillation with rapid ventricular response and improvement Urinary tract infection secondary to Enterobacter cloacae History of diabetes mellitus Chronic and ongoing tobacco dependence History of ADHD Plan: The patient was seen and evaluated Labs and medications reviewed Remove nasogastric tube We will continue to follow I have personally seen and examined the patient, performed the documentation and the assessment and plan as written. Number of minutes spent on the visit: 10.
[2022-03-05 11:50] LABS: Glucose,Whole Blood 264 mg/dL (70-110)
--- NOTE | 2022-03-05 12:47 | P.PN ---
Progress Note - Text Progress Note Date: 03/05/22 Chief Complaint: Decreased responsiveness This is a 62-year-old patient, follows with Dr. Mendez. Chronic stable medical conditions include ADHD, herniated disc lower back, smoker. Patient's son at the bedside. Patient yesterday took his medication was going to the bathroom and the son noticed that he was feeling looking weak. He became less responsive. Never passed out. Shaky. No fever or chills reported. EMS was called out. Patient is found to be in atrial fibrillation with rapid ventricular rate. In the ER started on IV heparin, given adenosine, later put on IV Cardizem. Also found to be in DKA. Put on insulin drip. Potassium was very low NG tube had to be pacemaker placement. Tired. Most of the history of pain medicine at the bedside. Patient rather tired and lethargic. Admitted with new onset of atrial fibrillation uncontrolled, diabetic k etoacidosis, acute metabolic encephalopathy, severe hypokalemia. Started on Cardizem drip, IV heparin, insulin drip. NG tube was placed for potassium replacement. March 03: ICU: Patient went back into sinus rhythm. Did have 3-4 minutes burst of A. fib with rapid ventricular rate and rhythm back in sinus rhythm. IV heparin is being changed over to subcu Lovenox 70 mg every 12. Insulin drip is discontinued. Put on Levemir 10 units. NG tube in place. Potassium being replaced. Still patient is rather lethargic. We'll get a computed tomography scan of the brain. And EEG. March 04: ICU: Remains in sinus rhythm. Has been off Cardizem drip. Slightly more awake but still lethargic. Attempted to answer questions. Potassium down to 2.7. Potassium being replaced. At magnesium. By mouth amiodarone. On IV ceftriaxone for possible UTI. Sinus rhythm. Stop Catapres increase Lopressor to 100 mg twice a day. Check ammonia level. Phosphorus being replaced. Consult neurology. CT brain negative for stroke. EEG results pending. March 05: ICU. Laying in bed. Weak. EEG showed encephalopathy. Weakness in all the limbs. Just ordered able to lift his arms. Manor to be from electrolyte abnormalities. Able to answer questions slowly. Did tolerate some ice chips. Nurse will try to feed the patient. Lethargic but more awake. PTOT consulted. Unstageable bluish decolorization of the sacrum and heels. NG tube discontinued. IV fluids. Active Medications Acetaminophen (Acetaminophen Tab 325 Mg Tab) 650 mg PO Q6HR PRN PRN Reason: Mild Pain or Fever > 100.5 Last Admin: 03/04/22 05:03 Dose: 650 mg Al Hydroxide/Mg Hydroxide (Mag Hydrox/Al Hydrox/Simeth 30 Ml Cup) 15 ml PO Q6HR PRN PRN Reason: Indigestion Amiodarone HCl (Amiodarone 200 Mg Tab) 200 mg PO BID [facility] Last Admin: 03/05/22 09:39 Dose: 200 mg Dextrose/Water (Dextrose 50% Syringe 50 Ml) 25 ml IVP PER PROTOCOL PRN; Protocol PRN Reason: Hypoglycemia Dextrose/Water (Dextrose 50% Syringe 50 Ml) 50 ml IVP PER PROTOCOL PRN; Protocol PRN Reason: Hypoglycemia Enoxaparin Sodium (Enoxaparin 80 Mg/0.8 Ml Syringe) 70 mg SQ Q12HR [facility] Last Admin: 03/05/22 09:39 Dose: 70 mg Ceftriaxone Sodium 1 gm/ (Sodium Chloride) 50 mls @ 100 mls/hr IVPB Q12HR [facility]; Protocol Last Admin: 03/05/22 09:40 Dose: 100 mls/hr Lactated Ringer's (Lactated Ringers) 1,000 mls @ 125 mls/hr IV .Q8H [facility] Last Admin: 03/05/22 09:42 Dose: 125 mls/hr Insulin Aspart (Insulin Aspart (Novolog) 100 Unit/Ml Vial) 0 unit SQ Q6HR [facility]; Protocol Last Admin: 03/05/22 12:20 Dose: 6 unit Insulin Detemir (Insulin Detemir (Levemir) 100 Unit/Ml Syr) 10 unit SQ DAILY@0700 [facility] Last Admin: 03/05/22 06:22 Dose: 10 unit Magnesium Oxide (Magnesium Oxide 400 Mg Tab) 400 mg PO TID [facility] Last Admin: 03/05/22 09:39 Dose: 400 mg Metoprolol Tartrate (Metoprolol Tartrate 50 Mg Tab) 100 mg PO BID [facility] Last Admin: 03/05/22 09:39 Dose: 100 mg Miscellaneous Information (Potassium Replacement Protocol 1 Each Misc) 1 each MISCELLANE DAILY PRN; Protocol PRN Reason: Per Protocol Miscellaneous Information (Phosphorus Replacement Protoco 1 Each Misc) 1 each MISCELLANE DAILY PRN; Protocol PRN Reason: Per Protocol Naloxone HCl (Naloxone 0.4 Mg/Ml 1 Ml Vial) 0.2 mg IV Q2M PRN PRN Reason: Opioid Reversal Nicotine (Nicotine 21mg/24hr Patch) 1 patch TRANSDERM DAILY [facility] Last Admin: 03/05/22 09:39 Dose: 1 patch Ondansetron HCl (Ondansetron 4 Mg/2 Ml Vial) 4 mg IVP Q8HR PRN PRN Reason: Nausea And Vomiting Pantoprazole Sodium (Pantoprazole 40 Mg Tablet) 40 mg PO AC-BID [facility] Last Admin: 03/05/22 09:39 Dose: 40 mg Sodium Bicarbonate (Sodium Bicarbonate Tab 650 Mg Tab) 650 mg PO TID [facility] Last Admin: 03/05/22 09:39 Dose: 650 mg Tramadol HCl (Tramadol 50 Mg Tab) 50 mg PO QID PRN PRN Reason: Pain Last Admin: 03/05/22 09:39 Dose: 50 mg Past medical history to include: Diabetes, possible ADHD, chronic low back pain, herniated disc, Social history: Son lives with the patient. 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 Smokes about a pack a day. Alcohol occasionally. Physical examination: VITAL SIGNS: 97.6, 84, 24, 1:30/70, 98% on 2 L GENERAL: Lethargic but more awake. Answering questions monosyllables EYES: Pupils equal. Conjunctiva normal. HEENT: External appearance of nose and ears normal, oral cavity mucous membranes moist NECK: JVD not raised; masses not palpable. HEART: Heart sounds normal; no edema. LUNGS: Respiratory rate increased; decreased breath sounds. ABDOMEN: Soft, nontender, liver spleen not palpable, no masses palpable. PSYCH: Answering questions monosyllables MUSCULOSKELETAL:No Clubbing/cyanosis;muscles-grossly intact NEUROLOGICAL: Cranial nerves grossly intact; no facial asymmetry, INVESTIGATIONS, reviewed in the clinical context: HbA1c: 12.9 Computed tomography scan brain: No acute processes reported March 04: WBC 16.6 hemoglobin 9.8 potassium 2.7 creatinine 0.42 phosphorus 1.6 March 03: Sodium 136 potassium 3 BUN 22 creatinine 0.50 albumin 2.2 WBC 36.7 hemoglobin 14.7 platelets 470 potassium 2.7 sodium 128 bicarb 9 BUN 25 crit 0.89 blood glucose 564 UA positive for ketone 4+, leukoesterase negative for nitrite Urine drug screen: Negative Serum acetone positive EKG tracing personally reviewed by me-heart rate 171, ST segment depression Chest x-ray film personally reviewed by me-prominent pulmonary artery. Elevated right diaphragm. 2-D echocardiogram: EF 55-60%. Assessment and plan: -Paroxysmal atrial fibrillation with a rapid ventricular rate, back in sinus rhythm IV Cardizem drip-discontinued, IV heparin drip-changed to Lovenox. Cardiology consulted. Lopressor 100 mg twice a day. Oral amiodarone -IV heparin -discontinued Follow PTT -Diabetic ketoacidosis: Resolved IV insulin per protocol, discontinue. -Diabetes mellitus type 2, uncontrolled with hyperglycemia Levemir 14 units subcu daily. Follow Accu-Cheks -Acute metabolic encephalopathy, multifactorial, slow improvement Computed tomography scan of brain unremarkable.. EEG-encephalopathy. No seizure.. Follow with Neurology consulted. -Severe hypokalemia: Better Aggressive replacement of potassium. Follow-up magnesia. -Hypophosphatemia: Better Replace phosphorus -COPD in a current smoker Bronchodilators as needed -Chronic nicotine dependence, cigarette smoker Nicotine patch ICU. Discussed with nurse. Encourage oral intake. PTOT. Labs pending from today. Increase Levemir to 14 units.
[2022-03-05 12:54] LABS: African American GFR (CKD) >90 (>60 ml/min/1.73 sqM); Anion Gap 3 mmol/L; Blood Urea Nitrogen 14 mg/dL (9-20); Calcium 6.9 mg/dL (8.4-10.2); Carbon Dioxide 33 mmol/L (22-30); Chloride 96 mmol/L (98-107); Glucose 258 mg/dL (74-99); Non-African American GFR(CKD) >90 (>60 ml/min/1.73 sqM); Potassium 3.6 mmol/L (3.5-5.1); Sodium 132 mmol/L (137-145)
[2022-03-05 15:31] VITALS: BMI 24.8
[2022-03-05 17:05] LABS: Glucose,Whole Blood 302 mg/dL (70-110)
[2022-03-05] MEDS: ACETAMINOPHEN TAB 325 MG TAB PO PRN (19:44)
[2022-03-05 23:21] LABS: Glucose,Whole Blood 84 mg/dL (70-110)
[2022-03-06] MEDS: traMADol 50 MG TAB PO PRN ×4 (03:05→23:08)
[2022-03-06] MEDS: LACTATED RINGERS 1,000 ML IV SCH ×2 (03:39→12:29)
--- NOTE | 2022-03-06 04:27 | PN ---
PROGRESS NOTE This gentleman has history of DKA, which has resolved. He is much more alert, responding to questions. Has an NG tube. From a cardiac standpoint, he is stable. He is maintaining sinus rhythm. He does not have any atrial flutter or fibrillation. He is anticoagulated and we will continue the beta sandee for him. He is also on amiodarone 200 mg b.i.d. and enoxaparin 70 mg q.12 hours. He is also on metoprolol. We can switch him to Eliquis 5 mg b.i.d. when he is more awake and he is able to take oral medications. His renal function is good. MMODL / IJN: [id number] /
[2022-03-06 06:01] LABS: Glucose,Whole Blood 177 mg/dL (70-110)
[2022-03-06] MEDS: INSULIN ASPART (NovoLOG) 100 UNIT/ML VIAL SQ SCH ×3 (06:08→18:04)
[2022-03-06 06:28] LABS: Basophils % (A) 0 %; Eosinophils # (A) 0.2 k/uL (0-0.7); Eosinophils % (A) 1 %; HCT 28.1 % (39.0-53.0); HGB 9.3 gm/dL (13.0-17.5); Lymphocytes # (A) 1.4 k/uL (1.0-4.8); Lymphocytes % (A) 9 %; MCH 27.9 pg (25.0-35.0); MCHC 33.2 g/dL (31.0-37.0); MCV 83.8 fL (80.0-100.0); Mean Platelet Volume 9.1; Monocytes # (A) 0.7 k/uL (0-1.0); Monocytes % (A) 5 %; Neutrophils # (A) 12.5 k/uL (1.3-7.7); Neutrophils % (A) 84 %; Platelet Count 237 k/uL (150-450); RBC 3.35 m/uL (4.30-5.90); RDW 13.3 % (11.5-15.5); WBC 14.9 k/uL (3.8-10.6)
[2022-03-06] MEDS: INSULIN DETEMIR (LEVEMIR) 100 UNIT/ML SYR SQ SCH (06:31)
[2022-03-06] MEDS: PANTOPRAZOLE 40 MG TABLET PO SCH ×2 (06:31→17:21)
[2022-03-06 08:23] LABS: ALT 13 U/L (4-49); AST 18 U/L (17-59); African American GFR (CKD) >90 (>60 ml/min/1.73 sqM); Albumin 1.9 g/dL (3.5-5.0); Alkaline Phosphatase 58 U/L (38-126); Anion Gap 2 mmol/L; Blood Urea Nitrogen 13 mg/dL (9-20); Carbon Dioxide 31 mmol/L (22-30); Chloride 98 mmol/L (98-107); Glucose 127 mg/dL (74-99); Non-African American GFR(CKD) >90 (>60 ml/min/1.73 sqM); Potassium 3.4 mmol/L (3.5-5.1); Sodium 131 mmol/L (137-145); Total Bilirubin 0.4 mg/dL (0.2-1.3); Total Protein 4.6 g/dL (6.3-8.2)
--- NOTE | 2022-03-06 08:23 | P.PN ---
Subjective Progress Note Date: 03/06/22 Principal diagnosis: Paroxysmal atrial fibrillation The patient is a 62-year-old gentleman with diabetes who was admitted to the hospital with change in mental status and he was diagnosed with diabetes ketoacidosis. We involved in the care of the patient because he went into SVT and subsequently atrial fibrillation was converted to sinus mechanism on amiodarone. He underwent an echo which revealed normal left ventricle systolic function with no significant valvular abnormalities. The patient was seen this morning. He remains stable hemodynamically and he remains asymptomatic. He has been maintaining normal sinus mechanism. Currently is on amiodarone by mouth which need to be tapered down down the line and also he is on beta sandee. He is on anticoagulation was Lovenox which need to be switched to oral anticoagulation as well as. From the cardiac standpoint of view, the patient can be transferred to the selective floor Objective - Vital Signs Vital signs: Vital Signs Temp 99.7 F H 03/06/22 02:00 Pulse 80 03/06/22 02:00 Resp 20 03/06/22 02:00 BP 118/66 03/06/22 02:00 Pulse Ox 96 03/06/22 07:59 FiO2 21 03/04/22 07:22 Intake & Output 03/05/22 03/06/22 03/06/22 18:59 06:59 18:59 Intake Total 1650 1650 Output Total 900 1100 Balance 750 550 Weight 76.3 kg Intake: IV 1250 Lactated Ringers 1,000 ml 1250 @ 125 mls/hr IV .Q8H [facility] Rx#:[id number] Intake, IV Titration 1050 Amount Lactated Ringers 1,000 ml 1000 @ 125 mls/hr IV .Q8H [facility] Rx#:[id number] cefTRIAXone 1 gm In 50 Sodium Chloride 0.9% 50 ml @ 100 mls/hr IVPB Q12HR [facility] Rx#:[id number] Oral 600 400 Output: Urine 900 1100 Other: Voiding Method Indwelling Catheter Indwelling Catheter - Constitutional General appearance: Present: no acute distress - Respiratory Respiratory: bilateral: diminished - Cardiovascular Rhythm: regular - Labs CBC & Chem 7: 03/06/22 05:39 03/05/22 12:10 Labs: Abnormal Lab Results - Last 24 Hours (Table) 03/05/22 03/05/22 03/05/22 Range/Units 05:32 11:48 12:10 WBC (3.8-10.6) k/uL RBC (4.30-5.90) m/uL Hgb (13.0-17.5) gm/dL Hct (39.0-53.0) % Neutrophils # (1.3-7.7) k/uL Sodium 132 L (137-145) mmol/L Chloride 96 L (98-107) mmol/L Carbon Dioxide 33 H (22-30) mmol/L Creatinine 0.57 L (0.66-1.25) mg/dL Glucose 258 H (74-99) mg/dL POC Glucose (mg/dL) 264 H (70-110) mg/dL Hemoglobin A1c 12.9 H (0.0-6.0) % Calcium 6.9 L (8.4-10.2) mg/dL 03/05/22 03/06/22 03/06/22 Range/Units 17:04 05:39 06:00 WBC 14.9 H (3.8-10.6) k/uL RBC 3.35 L (4.30-5.90) m/uL Hgb 9.3 L (13.0-17.5) gm/dL Hct 28.1 L (39.0-53.0) % Neutrophils # 12.5 H (1.3-7.7) k/uL Sodium (137-145) mmol/L Chloride (98-107) mmol/L Carbon Dioxide (22-30) mmol/L Creatinine (0.66-1.25) mg/dL Glucose (74-99) mg/dL POC Glucose (mg/dL) 302 H 177 H (70-110) mg/dL Hemoglobin A1c (0.0-6.0) % Calcium (8.4-10.2) mg/dL Assessment and Plan Assessment: Assessment Change in mental status which has improved Diabetes ketoacidosis Paroxysmal atrial fibrillation SVT Plan Continue the current medical regimen Tapered down the dose of amiodarone Consider oral anticoagulation and stop Lovenox The patient can be transferred out of the intensive care
--- NOTE | 2022-03-06 08:33 | P.PN ---
Subjective Progress Note Date: 03/05/22 Patient was seen for a follow-up. Patient is laying comfortably in the bed. Sitter was also present. Patient continues to be weak particularly in the legs. Lower extremities are very painful. He cannot move his lower extremities. Patient claims that this lower exudative weakness started since the fall prior to arrival. Objective - Vital Signs Vital signs: Vital Signs Temp 99.7 F H 03/06/22 02:00 Pulse 80 03/06/22 02:00 Resp 20 03/06/22 02:00 BP 118/66 03/06/22 02:00 Pulse Ox 96 03/06/22 07:59 FiO2 21 03/04/22 07:22 Intake & Output 03/05/22 03/06/22 03/06/22 18:59 06:59 18:59 Intake Total 1650 1650 Output Total 900 1100 Balance 750 550 Weight 76.3 kg Intake: IV 1250 Lactated Ringers 1,000 ml 1250 @ 125 mls/hr IV .Q8H [facility] Rx#:[id number] Intake, IV Titration 1050 Amount Lactated Ringers 1,000 ml 1000 @ 125 mls/hr IV .Q8H [facility] Rx#:[id number] cefTRIAXone 1 gm In 50 Sodium Chloride 0.9% 50 ml @ 100 mls/hr IVPB Q12HR [facility] Rx#:[id number] Oral 600 400 Output: Urine 900 1100 Other: Voiding Method Indwelling Catheter Indwelling Catheter - Exam Patient appears slightly encephalopathic. But fairly well oriented. Speech and language functions are normal. Muscle strength is normal in both upper extremities distally and proximally. He has no movement in the lower extremities. Patient has significant peripheral edema. - Labs CBC & Chem 7: 03/06/22 05:39 03/06/22 07:22 Labs: Abnormal Lab Results - Last 24 Hours (Table) 03/05/22 03/05/22 03/05/22 Range/Units 05:32 11:48 12:10 WBC (3.8-10.6) k/uL RBC (4.30-5.90) m/uL Hgb (13.0-17.5) gm/dL Hct (39.0-53.0) % Neutrophils # (1.3-7.7) k/uL Sodium 132 L (137-145) mmol/L Potassium (3.5-5.1) mmol/L Chloride 96 L (98-107) mmol/L Carbon Dioxide 33 H (22-30) mmol/L Creatinine 0.57 L (0.66-1.25) mg/dL Glucose 258 H (74-99) mg/dL POC Glucose (mg/dL) 264 H (70-110) mg/dL Hemoglobin A1c 12.9 H (0.0-6.0) % Calcium 6.9 L (8.4-10.2) mg/dL Total Protein (6.3-8.2) g/dL Albumin (3.5-5.0) g/dL 03/05/22 03/06/22 03/06/22 Range/Units 17:04 05:39 06:00 WBC 14.9 H (3.8-10.6) k/uL RBC 3.35 L (4.30-5.90) m/uL Hgb 9.3 L (13.0-17.5) gm/dL Hct 28.1 L (39.0-53.0) % Neutrophils # 12.5 H (1.3-7.7) k/uL Sodium (137-145) mmol/L Potassium (3.5-5.1) mmol/L Chloride (98-107) mmol/L Carbon Dioxide (22-30) mmol/L Creatinine (0.66-1.25) mg/dL Glucose (74-99) mg/dL POC Glucose (mg/dL) 302 H 177 H (70-110) mg/dL Hemoglobin A1c (0.0-6.0) % Calcium (8.4-10.2) mg/dL Total Protein (6.3-8.2) g/dL Albumin (3.5-5.0) g/dL 03/06/22 Range/Units 07:22 WBC (3.8-10.6) k/uL RBC (4.30-5.90) m/uL Hgb (13.0-17.5) gm/dL Hct (39.0-53.0) % Neutrophils # (1.3-7.7) k/uL Sodium 131 L (137-145) mmol/L Potassium 3.4 L (3.5-5.1) mmol/L Chloride (98-107) mmol/L Carbon Dioxide 31 H (22-30) mmol/L Creatinine 0.41 L (0.66-1.25) mg/dL Glucose 127 H (74-99) mg/dL POC Glucose (mg/dL) (70-110) mg/dL Hemoglobin A1c (0.0-6.0) % Calcium 7.0 L (8.4-10.2) mg/dL Total Protein 4.6 L (6.3-8.2) g/dL Albumin 1.9 L (3.5-5.0) g/dL Assessment and Plan Assessment: * Altered mental status, likely due to toxic metabolic encephalopathy, improved. * Bilateral lower extremity weakness, unclear etiology. Rule out critical illness myopathy, rule out central cause. * Acute diabetic ketoacidosis * Poorly controlled diabetes * Metabolic acidosis * New onset atrial fibrillation * Urinary tract infection with Enterobacter Clocae, on ceftriaxone. * Tobacco use * History of ADHD. Plan: * Patient's mentation has much improved. He is fairly well oriented. Examination is nonfocal. Patient does have weakness of the lower extremities, related to his diabetic peripheral neuropathy. * B12 727, folate 7.6, TSH 1.7. Patient's last hemoglobin A1c on 06/07/2016 was 12.7. Repeat hemoglobin A1c 12.9 on 03/05/2022. Ammonia is normal. * MRI of thoracic and lumbar spine to rule out spinal stenosis. * EMG nerve conductions of lower extremity as an outpatient. * Optimize control of diabetes. * Recommended tobacco cessation. * EEG 03/04/2022 was abnormal due to background slowing of moderate degree. This is suggestive of generalized cerebral dysfunction as can be seen with toxic metabolic encephalopathy or due to diffuse structural brain abnormality. Clinical correlation recommended. No epileptiform activity was seen. * Patient has new onset atrial fibrillation. Currently on full dose anticoagulation with Lovenox. * Medical management as per IM, critical care and other specialties. * Recommend PT OT.
[2022-03-06] MEDS: NICOTINE 21MG/24HR PATCH TRANSDERM SCH (09:10)
[2022-03-06] MEDS: ENOXAPARIN 80 MG/0.8 ML SYRINGE SQ SCH (09:10)
[2022-03-06] MEDS: POTASSIUM BICARBONATE/CIT AC 20 MEQ TABLET.EFF NG-TUBE SCH ×2 (09:11→12:29)
[2022-03-06] MEDS: METOPROLOL TARTRATE 50 MG TAB PO SCH ×2 (09:11→23:07)
[2022-03-06] MEDS: MAGNESIUM OXIDE 400 MG TAB PO SCH ×3 (09:11→23:08)
[2022-03-06] MEDS: SODIUM BICARBONATE TAB 650 MG TAB PO SCH ×3 (09:11→23:11)
[2022-03-06] MEDS: AMIODARONE 200 MG TAB PO SCH ×2 (09:12→23:07)
--- NOTE | 2022-03-06 10:39 | P.PN ---
Subjective Progress Note Date: 03/06/22 This is 62-year-old male patient who follows with Dr. Mendez as his primary care provider. He has history of diabetes mellitus, chronic and ongoing tobacco dependence, ADHD. He presented here to the emergency room yesterday with a 2 hour history of palpitations and shortness of breath. No precipitating factors. No relieving factors. No nausea vomiting. No chest pain. No dizziness or lightheadedness. He was felt to be in SVT and was treated with a Ashlie with subsequent conversion to atrial fibrillation with a rapid ventricular response. The patient was also noted to be in diabetic ketoacidosis with initial glucose of 564. Positive acetone. Drug screen negative. White count 32. Hemoglobin 11.0. He was 383. Sodium 135. Potassium 3.4. Chloride 105. Bicarbonate8. Anion gap 22. BUN 40. Creatinine 0.67. Troponin negative 2. ProBNP 1270. Urinalysis with 4+ ketones, large leukocyte esterase, few WBCs. Chest x-ray reveals no acute pulmonary process. Nasogastric tube in place. The patient is seen today in the ICU. He is resting fairly comfortably in bed. He is maintaining good O2 saturations in the 90s on room air. Arousable. He is continued on Cardizem drip at 5 mg per hour. Insulin drip at 8 units per hour. Heparin drip per weight base protocol. 0.9% normal saline at 200 mL per hour. Remains in the DKA protocol. Currently on ceftriaxone. Pro-calcitonin pending. The patient is seen today 03/03/2022 in follow-up in the intensive care unit. He is a bit more awake and alert. Still somewhat lethargic. He is maintaining O2 saturations in the 90s on room air. He is still febrile. Tachycardic. Currently on D5.45 with 20 of KCl at 150 ML's per hour. Insulin drip is on hold. He remains on Cardizem drip at 10 mg per hour. Heparin drain drip per we ight base protocol. He had an episode of A. fib with RVR this morning and the plan is for additional amiodarone drip. Urine culture pending. White count 23. Hemoglobin 10.8. Sodium 136. Potassium 3.0. Bicarb 19. BUN 22. Creatinine 0.50. Glucose 282. Urine culture pending. Pro-calcitonin 1.03. He is on antibiotics in the form of ceftriaxone. Nasogastric tube remains in place for electrolyte replacement. The patient is seen today 03/04/2022 in follow-up in the intensive care unit. H e remains somewhat lethargic. Arousable. Nasogastric tube remains in place. He is maintaining O2 saturations in the 90s on room air. IV is D5.45 at 50 MLS per hour. Remains on antibiotics in the form of ceftriaxone. Currently on amiodarone and metoprolol for rate control. Anticoagulated with Lovenox. NicoDerm patch in place. White count 16.6. Hemoglobin 9.8. Sodium 136. Potassium 2.7. Bicarb 26. BUN 12. Creatinine 0.42. Glucose 174. The patient is seen today 03/05/2022 in follow-up in the intensive care unit. He is a bit more awake and alert today. Answering questions appropriately. Asking for pain medications. He is maintaining O2 saturations in the 90s on room air. Nasogastric tube remains in place. He is lactated Ringer's at 150 MLS per hour. He is continued on Levemir and NovoLog. NicoDerm patch in place. Urine culture was positive for Enterobacter cloacae. He remains on ceftriaxone. Blood glucose 193. The patient is seen today 03/06/2022 in follow-up in the intensive care unit. He is awake and alert in no acute distress. His nasogastric tube has been removed. He is maintaining good O2 saturations in the 90s on room air. He is lactated Ringer's at 125 an hour. Urine culture was positive for Enterobacter cloacae. White count 14.9. Hemoglobin 9.3. Sodium 131. Potassium 3.4. BUN 13. Creatinine 0.41. Glucose 127. He is continued on ceftriaxone. Lovenox for DVT prophylaxis. Remains on amiodarone. Continue Levemir and NovoLog. NicoDerm patch in place. Objective - Vital Signs Vital signs: Vital Signs Temp 97.5 F L 03/06/22 08:00 Pulse 79 03/06/22 08:00 Resp 14 03/06/22 08:00 BP 118/69 03/06/22 08:00 Pulse Ox 98 03/06/22 08:00 FiO2 21 03/04/22 07:22 Intake & Output 03/05/22 03/06/22 03/06/22 18:59 06:59 18:59 Intake Total 1650 1650 Output Total 900 1100 Balance 750 550 Weight 76.3 kg Intake: IV 1250 Lactated Ringers 1,000 ml 1250 @ 125 mls/hr IV .Q8H [facility] Rx#:[id number] Intake, IV Titration 1050 Amount Lactated Ringers 1,000 ml 1000 @ 125 mls/hr IV .Q8H [facility] Rx#:[id number] cefTRIAXone 1 gm In 50 Sodium Chloride 0.9% 50 ml @ 100 mls/hr IVPB Q12HR [facility] Rx#:[id number] Oral 600 400 Output: Urine 900 1100 Other: Voiding Method Indwelling Catheter Indwelling Catheter - Exam GENERAL EXAM: Awake, alert, thin 62-year-old male, on room air, fairly comfortable in no apparent distress. HEAD: Normocephalic. EYES: Normal reaction of pupils, equal size. NOSE: Nasogastric tube secured in place. Clear with pink turbinates. THROAT: No erythema or exudates. NECK: No masses, no JVD. CHEST: No chest wall deformity. LUNGS: Equal air entry with no crackles, wheeze, rhonchi or dullness. CVS: S1 and S2 normal with no audible murmur, irregular rhythm. ABDOMEN: No hepatosplenomegaly, normal bowel sounds, no guarding or rigidity. SPINE: No scoliosis or deformity SKIN: No rashes CENTRAL NERVOUS SYSTEM: No focal deficits, tone is normal in all 4 extremities. EXTREMITIES: There is no peripheral edema. No clubbing, no cyanosis. Peripheral pulses are intact. - Labs CBC & Chem 7: 03/06/22 05:39 03/06/22 07:22 Labs: Abnormal Lab Results - Last 24 Hours (Table) 03/05/22 03/05/22 03/05/22 Range/Units 11:48 12:10 17:04 WBC (3.8-10.6) k/uL RBC (4.30-5.90) m/uL Hgb (13.0-17.5) gm/dL Hct (39.0-53.0) % Neutrophils # (1.3-7.7) k/uL Sodium 132 L (137-145) mmol/L Potassium (3.5-5.1) mmol/L Chloride 96 L (98-107) mmol/L Carbon Dioxide 33 H (22-30) mmol/L Creatinine 0.57 L (0.66-1.25) mg/dL Glucose 258 H (74-99) mg/dL POC Glucose (mg/dL) 264 H 302 H (70-110) mg/dL Calcium 6.9 L (8.4-10.2) mg/dL Total Protein (6.3-8.2) g/dL Albumin (3.5-5.0) g/dL 03/06/22 03/06/22 03/06/22 Range/Units 05:39 06:00 07:22 WBC 14.9 H (3.8-10.6) k/uL RBC 3.35 L (4.30-5.90) m/uL Hgb 9.3 L (13.0-17.5) gm/dL Hct 28.1 L (39.0-53.0) % Neutrophils # 12.5 H (1.3-7.7) k/uL Sodium 131 L (137-145) mmol/L Potassium 3.4 L (3.5-5.1) mmol/L Chloride (98-107) mmol/L Carbon Dioxide 31 H (22-30) mmol/L Creatinine 0.41 L (0.66-1.25) mg/dL Glucose 127 H (74-99) mg/dL POC Glucose (mg/dL) 177 H (70-110) mg/dL Calcium 7.0 L (8.4-10.2) mg/dL Total Protein 4.6 L (6.3-8.2) g/dL Albumin 1.9 L (3.5-5.0) g/dL Assessment and Plan Assessment: Acute diabetic ketoacidosis, recovered Altered mental status, improved Leukocytosis, improved Hypokalemia, improved Anion gap metabolic acidosis secondary to above, closed New onset atrial fibrillation with rapid ventricular response On amiodarone, Lovenox Urinary tract infection secondary to Enterobacter cloacae, remains on ceftriaxone History of diabetes mellitus Chronic and ongoing tobacco dependence History of ADHD Plan: The patient was seen and evaluated Labs and medications reviewed Blood glucose numbers improved Stable and on room air Heart rate better controlled Transfer out to the regular medical floor We will continue to follow I have personally seen and examined the patient, performed the documentation and the assessment and plan as written. Number of minutes spent on the visit: 10.
[2022-03-06 12:24] LABS: Glucose,Whole Blood 179 mg/dL (70-110)
--- NOTE | 2022-03-06 14:11 | MR ---
EXAMINATION TYPE: MR jorge/lssteven wo con DATE OF EXAM: 03/06/2022 COMPARISON: None HISTORY: Weakness both legs since fall Multiplanar multiecho imaging of the thoracic and lumbar spine performed with no contrast. The thoracic vertebrae have normal alignment. No significant disc space narrowing. No compression fra cture. Thoracic spinal cord has normal signal pattern. No edema. No thoracic spinal stenosis. There a re some degenerative disc hypertrophic changes in the lower cervical spine at levels from C4 to C7 wi th posterior disc bulging and spur formation. Spinal canal measures 6 mm at C6-7 which is the [address] point. There is no thoracic paraspinal mass. No evidence of focal bone destruction. The thoracic vertebra have normal alignment. No significant disc space narrowing. There is 10% wedgin g of L1 and L2 vertebra. There is posterior disc bulging and spur formation from L2 to L5 with some e ncroachment on the spinal canal. The sacroiliac joints are intact. There is mild multilevel spinal st enosis from L2 to L5. No lumbar focal bone destruction. IMPRESSION: Multilevel lumbar spurring and disc bulging with multilevel mild spinal stenosis. Mild wedging of L1 and L2 appears old. No acute abnormality of the thoracic spine. No compression fracture. No thoracic spinal stenosis.
[2022-03-06 17:05] LABS: Glucose,Whole Blood 60 mg/dL (70-110)
[2022-03-06 17:32] LABS: Glucose,Whole Blood 110 mg/dL (70-110)
--- NOTE | 2022-03-06 19:49 | P.PN ---
Subjective This is a 62-year-old patient, follows with Dr. Mendez. Chronic stable medical conditions include ADHD, herniated disc lower back, smoker. Patient's son at the bedside. Patient yesterday took his medication was going to the bathroom and the son noticed that he was feeling looking weak. He became less responsive. Never passed out. Shaky. No fever or chills reported. EMS was called out. Patient is found to be in atrial fibrillation with rapid ventricular rate. In the ER started on IV heparin, given adenosine, later put on IV Cardizem. Also found to be in DKA. Put on insulin drip. Potassium was very low NG tube had to be pacemaker placement. Tired. Most of the history of pain medicine at the bedside. Patient rather tired and lethargic. Admitted with new onset of atrial fibrillation uncontrolled, diabetic ketoacidosis, acute metabolic encephalopathy, severe hypokalemia. Started on Cardizem drip, IV heparin, insulin drip. NG tube was placed for potassium replacement. March 03: ICU: Patient went back into sinus rhythm. Did have 3-4 minutes burst of A. fib with rapid ventricular rate and rhythm back in sinus rhythm. IV heparin is being changed over to subcu Lovenox 70 mg every 12. Insulin drip is discontinued. Put on Levemir 10 units. NG tube in place. Potassium being replaced. Still patient is rather lethargic. We'll get a computed tomography scan of the brain. And EEG. March 04: ICU: Remains in sinus rhythm. Has been off Cardizem drip. Slightly more awake but still lethargic. Attempted to answer questions. Potassium down to 2.7. Potassium being replaced. At magnesium. By mouth amiodarone. On IV ceftriaxone for possible UTI. Sinus rhythm. Stop Catapres increase Lopressor to 100 mg twice a day. Check ammonia level. Phosphorus being replaced. Consult neurology. CT brain negative for stroke. EEG results pending. March 05: ICU. Laying in bed. Weak. EEG showed encephalopathy. Weakness in all the limbs. Just ordered able to lift his arms. [place] to be from electrolyte abnormalities. Able to answer questions slowly. Did tolerate some ice chips. Nurse will try to feed the patient. Lethargic but more awake. PTOT consulted. Unstageable bluish decolorization of the sacrum and heels. NG tube discontinued. IV fluids. INVESTIGATIONS, reviewed in the clinical context: HbA1c: 12.9 Computed tomography scan brain: No acute processes reported March 04: WBC 16.6 hemoglobin 9.8 potassium 2.7 creatinine 0.42 phosphorus 1.6 March 03: Sodium 136 potassium 3 BUN 22 creatinine 0.50 albumin 2.2 WBC 36.7 hemoglobin 14.7 platelets 470 potassium 2.7 sodium 128 bicarb 9 BUN 25 crit 0.89 blood glucose 564 UA positive for ketone 4+, leukoesterase negative for nitrite Urine drug screen: Negative Serum acetone positive EKG tracing personally reviewed by me-heart rate 171, ST segment depression Chest x-ray film personally reviewed by me-prominent pulmonary artery. Elevated right diaphragm. 2-D echocardiogram: EF 55-60%. 03/06/2020: Patient remains in the ICU improving slowly and gradually. Still had fever yesterday of 100.7, no more fever today. Other vitals are stable. Patient remains on ceftriaxone and he is been treated for UTI with Enterobacter. He still has fever as of yesterday therefore we will check renal ultrasound. Corcalcitonin 1.03, His altered mentation most likely is secondary to metabolic/toxic encephalopathy and UTI, neurologist on the case and he ordered MRI of the thoracolumbar spine to rule out spinal stenosis, results showing multilevel lumbar spinal stenosis but is mild and there is no spinal stenosis of the thoracic spine. Cardiology the case for new-onset A. fib, currently on Lovenox and amiodarone and rate controlled. Distal on IV fluids under lactate 125 Ulcers on Protonix 40 mg oral twice a day and Lovenox 70 mg twice daily. Glucose controlled on Levemir 14 units. His hemoglobin A1c is 12.9% and his DKA on admission resolved Objective - Vital Signs Vital signs: Vital Signs Temp 97.5 F L 03/06/22 08:00 Pulse 79 03/06/22 08:00 Resp 14 03/06/22 08:00 BP 118/69 03/06/22 08:00 Pulse Ox 98 03/06/22 08:00 FiO2 21 03/04/22 07:22 Intake & Output 03/05/22 03/06/22 03/06/22 18:59 06:59 18:59 Intake Total 1650 1650 Output Total 900 1100 Balance 750 550 Weight 76.3 kg Intake: IV 1250 Lactated Ringers 1,000 ml 1250 @ 125 mls/hr IV .Q8H [facility] Rx#:[id number] Intake, IV Titration 1050 Amount Lactated Ringers 1,000 ml 1000 @ 125 mls/hr IV .Q8H [facility] Rx#:[id number] cefTRIAXone 1 gm In 50 Sodium Chloride 0.9% 50 ml @ 100 mls/hr IVPB Q12HR [facility] Rx#:[id number] Oral 600 400 Output: Urine 900 1100 Other: Voiding Method Indwelling Catheter Indwelling Catheter - Exam -GENERAL: The patient is alert and oriented x3, not in any acute distress. Well developed, well nourished. Generally weak HEENT: Pupils are round and equally reacting to light. EOMI. No scleral icterus. No conjunctival pallor. Normocephalic, atraumatic. No pharyngeal erythema. No thyromegaly. CARDIOVASCULAR: S1 and S2 present. No murmurs, rubs, or gallops. PULMONARY: Chest is clear to auscultation, no wheezing or crackles. ABDOMEN: Soft, nontender, nondistended, normoactive bowel sounds. No palpable organomegaly. MUSCULOSKELETAL: No joint swelling or deformity. EXTREMITIES: No cyanosis, clubbing, or pedal edema. NEUROLOGICAL: Gross neurological examination did not reveal any focal deficits. SKIN: No rashes. no petechiae. - Labs CBC & Chem 7: 03/06/22 05:39 03/06/22 07:22 Labs: Abnormal Lab Results - Last 24 Hours (Table) 03/05/22 03/05/22 03/05/22 Range/Units 11:48 12:10 17:04 WBC (3.8-10.6) k/uL RBC (4.30-5.90) m/uL Hgb (13.0-17.5) gm/dL Hct (39.0-53.0) % Neutrophils # (1.3-7.7) k/uL Sodium 132 L (137-145) mmol/L Potassium (3.5-5.1) mmol/L Chloride 96 L (98-107) mmol/L Carbon Dioxide 33 H (22-30) mmol/L Creatinine 0.57 L (0.66-1.25) mg/dL Glucose 258 H (74-99) mg/dL POC Glucose (mg/dL) 264 H 302 H (70-110) mg/dL Calcium 6.9 L (8.4-10.2) mg/dL Total Protein (6.3-8.2) g/dL Albumin (3.5-5.0) g/dL 03/06/22 03/06/22 03/06/22 Range/Units 05:39 06:00 07:22 WBC 14.9 H (3.8-10.6) k/uL RBC 3.35 L (4.30-5.90) m/uL Hgb 9.3 L (13.0-17.5) gm/dL Hct 28.1 L (39.0-53.0) % Neutrophils # 12.5 H (1.3-7.7) k/uL Sodium 131 L (137-145) mmol/L Potassium 3.4 L (3.5-5.1) mmol/L Chloride (98-107) mmol/L Carbon Dioxide 31 H (22-30) mmol/L Creatinine 0.41 L (0.66-1.25) mg/dL Glucose 127 H (74-99) mg/dL POC Glucose (mg/dL) 177 H (70-110) mg/dL Calcium 7.0 L (8.4-10.2) mg/dL Total Protein 4.6 L (6.3-8.2) g/dL Albumin 1.9 L (3.5-5.0) g/dL Assessment and Plan Assessment: Diabetic ketoacidosis present on admission resolved diabetes mellitus and hyperglycemia, Acute urinary tract infection secondary to Enterobacter Metabolic encephalopathy, improving New-onset A. fib with RVR on Lovenox Dehydration and hypovolemia improving Generalized weakness, lumbar spine showing only mild spinal stenosis Plan: Continue with Ringer lactate active hydration Continue with ceftriaxone and Check renal ultrasound Continue with oral Protonix Continue with therapeutic dose of Lovenox Continue with amiodarone Continue monitoring insulin with Levemir 14 units Pulmonary, cardiology and neurology service on the case Labs and medication were reviewed.. Continue same treatment. Continue with symptomatic treatment. Resume home medication. Monitor lytes and vitals. DVT and GI prophylaxis. Further recommendations as per clinical course of the patient DVT prophylaxis: Subcutaneous heparin GI Prophylaxis: Ppi PT/OT: Pending Prognosis is guarded
--- NOTE | 2022-03-06 22:22 | P.PN ---
Subjective Progress Note Date: 03/06/22 03/06/2022: Patient was seen for a follow-up. Patient was asleep. On waking up, patient was groggy, offers no complaints. 03/05/2022: Patient was seen for a follow-up. Patient is laying comfortably in the bed. Sitter was also present. Patient continues to be weak particularly in the legs. Lower extremities are very painful. He cannot move his lower extremities. Patient claims that this lower exudative weakness started since the fall prior to arrival. Objective - Vital Signs Vital signs: Vital Signs Temp 97.5 F L 03/06/22 08:00 Pulse 79 03/06/22 08:00 Resp 14 03/06/22 08:00 BP 118/69 03/06/22 08:00 Pulse Ox 98 03/06/22 08:00 FiO2 21 03/04/22 07:22 Intake & Output 03/05/22 03/06/22 03/06/22 18:59 06:59 18:59 Intake Total 1650 1650 1125 Output Total 900 1100 500 Balance 750 550 625 Weight 76.3 kg Intake: IV 1250 625 Lactated Ringers 1,000 ml 1250 625 @ 125 mls/hr IV .Q8H [facility] Rx#:[id number] Intake, IV Titration 1050 Amount Lactated Ringers 1,000 ml 1000 @ 125 mls/hr IV .Q8H [facility] Rx#:[id number] cefTRIAXone 1 gm In 50 Sodium Chloride 0.9% 50 ml @ 100 mls/hr IVPB Q12HR [facility] Rx#:[id number] Oral 600 400 500 Output: Urine 900 1100 500 Other: Voiding Method Indwelling Catheter Indwelling Catheter Indwelling Catheter - Exam Patient was somnolent. Detail examination deferred. Patient continues to have significant swelling of his extremities. - Labs CBC & Chem 7: 03/06/22 05:39 03/06/22 07:22 Labs: Abnormal Lab Results - Last 24 Hours (Table) 03/05/22 03/06/22 03/06/22 Range/Units 17:04 05:39 06:00 WBC 14.9 H (3.8-10.6) k/uL RBC 3.35 L (4.30-5.90) m/uL Hgb 9.3 L (13.0-17.5) gm/dL Hct 28.1 L (39.0-53.0) % Neutrophils # 12.5 H (1.3-7.7) k/uL Sodium (137-145) mmol/L Potassium (3.5-5.1) mmol/L Carbon Dioxide (22-30) mmol/L Creatinine (0.66-1.25) mg/dL Glucose (74-99) mg/dL POC Glucose (mg/dL) 302 H 177 H (70-110) mg/dL Calcium (8.4-10.2) mg/dL Total Protein (6.3-8.2) g/dL Albumin (3.5-5.0) g/dL 03/06/22 03/06/22 Range/Units 07:22 12:23 WBC (3.8-10.6) k/uL RBC (4.30-5.90) m/uL Hgb (13.0-17.5) gm/dL Hct (39.0-53.0) % Neutrophils # (1.3-7.7) k/uL Sodium 131 L (137-145) mmol/L Potassium 3.4 L (3.5-5.1) mmol/L Carbon Dioxide 31 H (22-30) mmol/L Creatinine 0.41 L (0.66-1.25) mg/dL Glucose 127 H (74-99) mg/dL POC Glucose (mg/dL) 179 H (70-110) mg/dL Calcium 7.0 L (8.4-10.2) mg/dL Total Protein 4.6 L (6.3-8.2) g/dL Albumin 1.9 L (3.5-5.0) g/dL Assessment and Plan Assessment: * Altered mental status, likely due to toxic metabolic encephalopathy, improved. * Bilateral lower extremity weakness, unclear etiology. MRI revealed multilevel spinal stenosis, at least moderate in degree. Rule out critical illness myopathy. * Acute diabetic ketoacidosis * Poorly controlled diabetes * Metabolic acidosis * New onset atrial fibrillation * Urinary tract infection with Enterobacter Clocae, on ceftriaxone. * Tobacco use * History of ADHD. Plan: * MRI of the lumbar and thoracic spine reported as multilevel lumbar spurring and disc bulging with multilevel mild spinal stenosis. Mild wedging of L1 and L2 appears old. No acute abnormality of the thoracic spine. No compression fracture. No thoracic spinal stenosis. I personally reviewed MRI of the lumbar and thoracic spine myself. There is multilevel spinal stenosis at L3- L4, L4-L5, and lesser degree at L2-L3 and L5-S1 levels. The most significant is at L4-L5 level, which appears moderate to severe on my review. We will consult orthopedics spine. * B12 727, folate 7.6, TSH 1.7. Patient's last hemoglobin A1c on 06/07/2016 was 12.7. Repeat hemoglobin A1c 12.9 on 03/05/2022. Ammonia is normal. * EMG nerve conductions of lower extremity as an outpatient. * Optimize control of diabetes. * Recommended tobacco cessation. * EEG 03/04/2022 was abnormal due to background slowing of moderate degree. This is suggestive of generalized cerebral dysfunction as can be seen with toxic metabolic encephalopathy or due to diffuse structural brain abnormality. Clinical correlation recommended. No epileptiform activity was seen. * Patient has new onset atrial fibrillation. Currently on full dose anticoagulation with Lovenox. * Medical management as per IM, critical care and other specialties. * Recommend PT OT.
[2022-03-07] MEDS: ENOXAPARIN 100 MG/ML SYRINGE SQ SCH ×2 (00:13→07:39)
[2022-03-07 01:37] LABS: Glucose,Whole Blood 196 mg/dL (70-110)
[2022-03-07] MEDS: INSULIN ASPART (NovoLOG) 100 UNIT/ML VIAL SQ SCH ×4 (01:47→19:07)
[2022-03-07] MEDS: LACTATED RINGERS 1,000 ML IV SCH ×3 (01:47→12:04)
[2022-03-07 05:32] LABS: Glucose,Whole Blood 170 mg/dL (70-110)
[2022-03-07] MEDS: traMADol 50 MG TAB PO PRN ×3 (05:34→17:43)
[2022-03-07] MEDS: METOPROLOL TARTRATE 50 MG TAB PO SCH ×2 (07:38→22:04)
[2022-03-07] MEDS: INSULIN DETEMIR (LEVEMIR) 100 UNIT/ML SYR SQ SCH (07:38)
[2022-03-07] MEDS: AMIODARONE 200 MG TAB PO SCH ×2 (07:38→22:04)
[2022-03-07] MEDS: FOLIC ACID 1 MG TAB PO SCH (07:38)
[2022-03-07] MEDS: NICOTINE 21MG/24HR PATCH TRANSDERM SCH (07:39)
[2022-03-07] MEDS: MAGNESIUM OXIDE 400 MG TAB PO SCH ×3 (07:39→22:04)
[2022-03-07] MEDS: SODIUM BICARBONATE TAB 650 MG TAB PO SCH ×3 (07:39→22:04)
[2022-03-07] MEDS: PANTOPRAZOLE 40 MG TABLET PO SCH ×2 (07:39→17:43)
[2022-03-07 07:53] LABS: Basophils % (A) 0 %; Eosinophils # (A) 0.2 k/uL (0-0.7); Eosinophils % (A) 2 %; HCT 25.6 % (39.0-53.0); HGB 8.3 gm/dL (13.0-17.5); Hypochromasia Slight; Lymphocytes # (A) 1.5 k/uL (1.0-4.8); Lymphocytes % (A) 14 %; MCH 27.9 pg (25.0-35.0); MCHC 32.4 g/dL (31.0-37.0); MCV 86.2 fL (80.0-100.0); Mean Platelet Volume 8.1; Monocytes # (A) 0.5 k/uL (0-1.0); Monocytes % (A) 5 %; Neutrophils # (A) 8.8 k/uL (1.3-7.7); Neutrophils % (A) 79 %; Platelet Count 341 k/uL (150-450); RBC 2.97 m/uL (4.30-5.90); RDW 13.6 % (11.5-15.5); WBC 11.3 k/uL (3.8-10.6)
[2022-03-07 08:19] LABS: African American GFR (CKD) >90 (>60 ml/min/1.73 sqM); Anion Gap 3 mmol/L; Blood Urea Nitrogen 10 mg/dL (9-20); Carbon Dioxide 32 mmol/L (22-30); Chloride 94 mmol/L (98-107); Glucose 174 mg/dL (74-99); Non-African American GFR(CKD) >90 (>60 ml/min/1.73 sqM); Potassium 3.6 mmol/L (3.5-5.1); Sodium 129 mmol/L (137-145)
--- NOTE | 2022-03-07 09:45 | P.PN ---
Subjective Progress Note Date: 03/07/22 Principal diagnosis: Paroxysmal atrial fibrillation The patient is a 62-year-old gentleman with diabetes who was admitted to the hospital with change in mental status and he was diagnosed with diabetes ketoacidosis. We involved in the care of the patient because he went into SVT and subsequently atrial fibrillation was converted to sinus mechanism on amiodarone. He underwent an echo which revealed normal left ventricle systolic function with no significant valvular abnormalities. The patient was seen this morning. He remains stable hemodynamically and he remains asymptomatic. He has been maintaining normal sinus mechanism. Currently is on amiodarone by mouth which need to be tapered down down the line and also he is on beta sandee. He is on anticoagulation was Lovenox which need to be switched to oral anticoagulation as well as. From the cardiac standpoint of view, the patient can be transferred to the selective floor 03/07/2022 The patient was seen and evaluated today. He has been maintaining sinus rhythm. He is asymptomatic and he is also hemodynamically stable. Currently he is on amiodarone by mouth. He is on Lovenox. His hemoglobin continues to be marginal. From a cardiac vascular standpoint of view, would continue the current medical regimen. Consider switch the patient to oral anticoagulation down the line. Objective - Vital Signs Vital signs: Vital Signs Temp 98.9 F 03/07/22 07:35 Pulse 85 03/07/22 07:38 Resp 17 03/07/22 07:38 BP 121/71 03/07/22 07:35 Pulse Ox 98 03/07/22 02:00 FiO2 21 03/04/22 07:22 Intake & Output 03/06/22 03/07/22 03/07/22 18:59 06:59 18:59 Intake Total 2750 750 Output Total 1300 1000 Balance 1450 -250 Intake: IV 1500 Lactated Ringers 1,000 ml 1500 @ 125 mls/hr IV .Q8H [facility] Rx#:[id number] Oral 500 750 Blood Product 750 Output: Urine 1300 1000 Other: Voiding Method Indwelling Catheter Indwelling Catheter - Constitutional General appearance: Present: no acute distress - Respiratory Respiratory: bilateral: CTA - Cardiovascular Rhythm: regular - Labs CBC & Chem 7: 03/07/22 07:07 03/07/22 07:07 Labs: Abnormal Lab Results - Last 24 Hours (Table) 03/06/22 03/06/2222 Range/Units 12:23 17:03 01:35 WBC (3.8-10.6) k/uL RBC (4.30-5.90) m/uL Hgb (13.0-17.5) gm/dL Hct (39.0-53.0) % Neutrophils # (1.3-7.7) k/uL Sodium (137-145) mmol/L Chloride (98-107) mmol/L Carbon Dioxide (22-30) mmol/L Creatinine (0.66-1.25) mg/dL Glucose (74-99) mg/dL POC Glucose (mg/dL) 179 H 60 L 196 H (70-110) mg/dL Calcium (8.4-10.2) mg/dL 03/07/22 03/07/22 03/07/22 Range/Units 05:29 07:07 07:07 WBC 11.3 H (3.8-10.6) k/uL RBC 2.97 L (4.30-5.90) m/uL Hgb 8.3 L (13.0-17.5) gm/dL Hct 25.6 L (39.0-53.0) % Neutrophils # 8.8 H (1.3-7.7) k/uL Sodium 129 L (137-145) mmol/L Chloride 94 L (98-107) mmol/L Carbon Dioxide 32 H (22-30) mmol/L Creatinine 0.49 L (0.66-1.25) mg/dL Glucose 174 H (74-99) mg/dL POC Glucose (mg/dL) 170 H (70-110) mg/dL Calcium 7.0 L (8.4-10.2) mg/dL Assessment and Plan Assessment: Assessment Change in mental status which has improved Diabetes ketoacidosis Paroxysmal atrial fibrillation SVT Plan Continue the current medical regimen Tapered down the dose of amiodarone Consider oral anticoagulation and stop Lovenox down the line
[2022-03-07 11:46] LABS: Glucose,Whole Blood 227 mg/dL (70-110)
--- NOTE | 2022-03-07 14:05 | P.PN ---
Subjective Progress Note Date: 03/07/22 Principal diagnosis: Diabetic ketoacidosis, mental status changes. The patient is seen today 03/04/2022 in follow-up in the intensive care unit. He remains somewhat lethargic. Arousable. Nasogastric tube remains in place. He is maintaining O2 saturations in the 90s on room air. IV is D5.45 at 50 MLS per hour. Remains on antibiotics in the form of ceftriaxone. Currently on amiodarone and metoprolol for rate control. Anticoagulated with Lovenox. NicoDerm patch in place. White count 16.6. Hemoglobin 9.8. Sodium 136. Potassium 2.7. Bicarb 26. BUN 12. Creatinine 0.42. Glucose 174. The patient is seen today 03/05/2022 in follow-up in the intensive care unit. H e is a bit more awake and alert today. Answering questions appropriately. Asking for pain medications. He is maintaining O2 saturations in the 90s on room air. Nasogastric tube remains in place. He is lactated Ringer's at 150 MLS per hour. He is continued on Levemir and NovoLog. NicoDerm patch in place. Urine culture was positive for Enterobacter cloacae. He remains on ceftriaxone. Blood glucose 193. The patient is seen today 03/06/2022 in follow-up in the intensive care unit. He is awake and alert in no acute distress. His nasogastric tube has been removed. He is maintaining good O2 saturations in the 90s on room air. He is lactated Ringer's at 125 an hour. Urine culture was positive for Enterobacter cloacae. White count 14.9. Hemoglobin 9.3. Sodium 131. Potassium 3.4. BUN 13. Creatinine 0.41. Glucose 127. He is continued on ceftriaxone. Lovenox for DVT prophylaxis. Remains on amiodarone. Continue Levemir and NovoLog. NicoDerm patch in place. Progress note dated 03/07/2022. The patient is seen today in room 479. Yesterday, he was in the intensive care unit. He is awake and alert, with improved mental status. His NG tube has been removed. Currently, he's on room air, with excellent saturations. He continues on lactated Ringer's. He has no specific complaints today. Laboratory data today includes a white count 11.8, hemoglobin 8.3, hematocrit 25.6, and a platelet count of 341,000. Sodium 129, potassium 3.6, chlorides 94, CO2 32, BUN 10, and creatinine 0.49. Pro-calcitonin level 0.15. Urine sampling from March 02 shows evidence of Enterobacter cloacae. He is currently on Rocephin. Objective - Vital Signs Vital signs: Vital Signs Temp 98.9 F 03/07/22 07:35 Pulse 85 03/07/22 07:38 Resp 17 03/07/22 07:38 BP 121/71 03/07/22 07:35 Pulse Ox 98 03/07/22 02:00 FiO2 21 03/04/22 07:22 Intake & Output 03/06/22 03/07/22 03/07/22 18:59 06:59 18:59 Intake Total 2750 750 Output Total 1300 1000 Balance 1450 -250 Intake: IV 1500 Lactated Ringers 1,000 ml 1500 @ 125 mls/hr IV .Q8H [facility] Rx#:[id number] Oral 500 750 Blood Product 750 Output: Urine 1300 1000 Other: Voiding Method Indwelling Catheter Indwelling Catheter - Exam No acute distress, oriented 3. Currently on room air. Mental status is much improved. HEENT examination is grossly unremarkable. Neck supple. Full range of motion. No adenopathy thyromegaly or neck vein distention. Cardiovascular examination reveals regular rhythm rate. S1-S2 normal. No S3 or S4. No discernible murmur noted. Heart rate 85 bpm. Heart sounds are distant. Lungs reveal mostly clear breath sounds. Minimal scattered rhonchi. No wheezes or crackles. Room air saturation is 98%. Breath sounds are equal bilaterally. Abdomen soft bowel sounds are heard. No masses or tenderness. Extremities are intact. No cyanosis clubbing or edema. Skin is without rash or lesion. Neurologic examination is brief but nonfocal. - Labs CBC & Chem 7: 03/07/22 07:07 03/07/22 07:07 Labs: Abnormal Lab Results - Last 24 Hours (Table) 03/06/22 03/07/22 03/07/22 Range/Units 17:03 01:35 05:29 WBC (3.8-10.6) k/uL RBC (4.30-5.90) m/uL Hgb (13.0-17.5) gm/dL Hct (39.0-53.0) % Neutrophils # (1.3-7.7) k/uL Sodium (137-145) mmol/L Chloride (98-107) mmol/L Carbon Dioxide (22-30) mmol/L Creatinine (0.66-1.25) mg/dL Glucose (74-99) mg/dL POC Glucose (mg/dL) 60 L 196 H 170 H (70-110) mg/dL Calcium (8.4-10.2) mg/dL Procalcitonin (0.02-0.09) ng/mL 03/07/22 03/07/22 03/07/22 Range/Units 07:07 07:07 07:07 WBC 11.3 H (3.8-10.6) k/uL RBC 2.97 L (4.30-5.90) m/uL Hgb 8.3 L (13.0-17.5) gm/dL Hct 25.6 L (39.0-53.0) % Neutrophils # 8.8 H (1.3-7.7) k/uL Sodium 129 L (137-145) mmol/L Chloride 94 L (98-107) mmol/L Carbon Dioxide 32 H (22-30) mmol/L Creatinine 0.49 L (0.66-1.25) mg/dL Glucose 174 H (74-99) mg/dL POC Glucose (mg/dL) (70-110) mg/dL Calcium 7.0 L (8.4-10.2) mg/dL Procalcitonin 0.15 H (0.02-0.09) ng/mL 03/07/22 Range/Units 11:44 WBC (3.8-10.6) k/uL RBC (4.30-5.90) m/uL Hgb (13.0-17.5) gm/dL Hct (39.0-53.0) % Neutrophils # (1.3-7.7) k/uL Sodium (137-145) mmol/L Chloride (98-107) mmol/L Carbon Dioxide (22-30) mmol/L Creatinine (0.66-1.25) mg/dL Glucose (74-99) mg/dL POC Glucose (mg/dL) 227 H (70-110) mg/dL Calcium (8.4-10.2) mg/dL Procalcitonin (0.02-0.09) ng/mL Assessment and Plan Assessment: Acute diabetic ketoacidosis, recovered. Altered mental status, improved. Enterobacter cloacae urinary tract infection. Leukocytosis, improved. Hypokalemia, improved. Anion gap metabolic acidosis secondary to above. New onset atrial fibrillation with rapid ventricular response. History of diabetes mellitus. Chronic and ongoing tobacco dependence. History of ADHD. Plan: Plan dated 03/07/2022. The enterobacter in the urine is resistant to ceftriaxone. The patient will be switched to oral Levaquin. Labs, x-rays, and medications are all reviewed. The patient was transferred out of the intensive care unit yesterday. He is greatly improved. The NG tube was removed. We will continue to follow the patient and make recommendations along the way. Time with Patient: Less than 30
[2022-03-07] MEDS ORDERED: LEVOFLOXACIN 500 MG TAB PO SCH (14:15)
--- NOTE | 2022-03-07 14:44 | P.PN ---
Subjective This is a 62-year-old patient, follows with Dr. Mendez. Chronic stable medical conditions include ADHD, herniated disc lower back, smoker. Patient's son at the bedside. Patient yesterday took his medication was going to the bathroom and the son noticed that he was feeling looking weak. He became less responsive. Never passed out. Shaky. No fever or chills reported. EMS was called out. Patient is found to be in atrial fibrillation with rapid ventricular rate. In the ER started on IV heparin, given adenosine, later put on IV Cardizem. Also found to be in DKA. Put on insulin drip. Potassium was very low NG tube had to be pacemaker placement. Tired. Most of the history of pain medicine at the bedside. Patient rather tired and lethargic. Admitted with new onset of atrial fibrillation uncontrolled, diabetic ketoacidosis, acute metabolic encephalopathy, severe hypokalemia. Started on Cardizem drip, IV heparin, insulin drip. NG tube was placed for potassium replacement. March 03: ICU: Patient went back into sinus rhythm. Did have 3-4 minutes burst of A. fib with rapid ventricular rate and rhythm back in sinus rhythm. IV heparin is being changed over to subcu Lovenox 70 mg every 12. Insulin drip is discontinued. Put on Levemir 10 units. NG tube in place. Potassium being replaced. Still patient is rather lethargic. We'll get a computed tomography scan of the brain. And EEG. March 04: ICU: Remains in sinus rhythm. Has been off Cardizem drip. Slightly more awake but still lethargic. Attempted to answer questions. Potassium down to 2.7. Potassium being replaced. At magnesium. By mouth amiodarone. On IV ceftriaxone for possible UTI. Sinus rhythm. Stop Catapres increase Lopressor to 100 mg twice a day. Check ammonia level. Phosphorus being replaced. Consult neurology. CT brain negative for stroke. EEG results pending. March 05: ICU. Laying in bed. Weak. EEG showed encephalopathy. Weakness in all the limbs. Just ordered able to lift his arms. [place] to be from electrolyte abnormalities. Able to answer questions slowly. Did tolerate some ice chips. Nurse will try to feed the patient. Lethargic but more awake. PTOT consulted. Unstageable bluish decolorization of the sacrum and heels. NG tube discontinued. IV fluids. INVESTIGATIONS, reviewed in the clinical context: HbA1c: 12.9 Computed tomography scan brain: No acute processes reported March 04: WBC 16.6 hemoglobin 9.8 potassium 2.7 creatinine 0.42 phosphorus 1.6 March 03: Sodium 136 potassium 3 BUN 22 creatinine 0.50 albumin 2.2 WBC 36.7 hemoglobin 14.7 platelets 470 potassium 2.7 sodium 128 bicarb 9 BUN 25 crit 0.89 blood glucose 564 UA positive for ketone 4+, leukoesterase negative for nitrite Urine drug screen: Negative Serum acetone positive EKG tracing personally reviewed by me-heart rate 171, ST segment depression Chest x-ray film personally reviewed by me-prominent pulmonary artery. Elevated right diaphragm. 2-D echocardiogram: EF 55-60%. 03/06/2020: Patient remains in the ICU improving slowly and gradually. Still had fever yesterday of 100.7, no more fever today. Other vitals are stable. Patient remains on ceftriaxone and he is been treated for UTI with Enterobacter. He still has fever as of yesterday therefore we will check renal ultrasound. Corcalcitonin 1.03, His altered mentation most likely is secondary to metabolic/toxic encephalopathy and UTI, neurologist on the case and he ordered MRI of the thoracolumbar spine to rule out spinal stenosis, results showing multilevel lumbar spinal stenosis but is mild and there is no spinal stenosis of the thoracic spine. Cardiology the case for new-onset A. fib, currently on Lovenox and amiodarone and rate controlled. Distal on IV fluids under lactate 125 Ulcers on Protonix 40 mg oral twice a day and Lovenox 70 mg twice daily. Glucose controlled on Levemir 14 units. His hemoglobin A1c is 12.9% and his DKA on admission resolved 03/07/2022 Patient still feels generally weak and lethargic. However he has good appetite. He denies chest pain or abdominal pain. No dyspnea. He looks comfortable in bed. He had 1 small bowel movement, no diarrhea. Zee catheter in place with yellow urine. Patient procalcitonin significantly improved down to 0.15, however his culture showed Enterobacter resistant to ceftriaxone. Patient currently on oral Levaquin. We going to consult infectious disease team. WBC is 11.3. Sodium 129. Patient fever on admission has subsided since then. Neurologist on the case and recommended EMG and nerve conduction study as an outpatient. Patient currently on Lovenox 70 mg twice a day, Levemir insulin 14 units and amiodarone. Also he is on oral Protonix twice daily and IV fluids under lactate at 125 Patient tolerates some diet, lower rate elected down to 75 mL/h renal ultrasound order, follow-up results Objective - Vital Signs Vital signs: Vital Signs Temp 98.9 F 03/07/22 07:35 Pulse 85 03/07/22 07:38 Resp 17 03/07/22 07:38 BP 121/71 03/07/22 07:35 Pulse Ox 98 03/07/22 02:00 FiO2 21 03/04/22 07:22 Intake & Output 03/06/22 03/07/22 03/07/22 18:59 06:59 18:59 Intake Total 2750 750 Output Total 1300 1000 Balance 1450 -250 Intake: IV 1500 Lactated Ringers 1,000 ml 1500 @ 125 mls/hr IV .Q8H [facility] Rx#:[id number] Oral 500 750 Blood Product 750 Output: Urine 1300 1000 Other: Voiding Method Indwelling Catheter Indwelling Catheter - Exam -GENERAL: The patient is alert and oriented x3, not in any acute distress. Well developed, well nourished. Generally weak HEENT: Pupils are round and equally reacting to light. EOMI. No scleral icterus. No conjunctival pallor. Normocephalic, atraumatic. No pharyngeal erythema. No thyromegaly. CARDIOVASCULAR: S1 and S2 present. No murmurs, rubs, or gallops. PULMONARY: Chest is clear to auscultation, no wheezing or crackles. ABDOMEN: Soft, nontender, nondistended, normoactive bowel sounds. No palpable organomegaly. MUSCULOSKELETAL: No joint swelling or deformity. EXTREMITIES: No cyanosis, clubbing, or pedal edema. NEUROLOGICAL: Gross neurological examination did not reveal any focal deficits. SKIN: No rashes. no petechiae. - Labs CBC & Chem 7: 03/07/22 07:07 03/07/22 07:07 Labs: Abnormal Lab Results - Last 24 Hours (Table) 03/06/22 03/07/22 03/07/22 Range/Units 17:03 01:35 05:29 WBC (3.8-10.6) k/uL RBC (4.30-5.90) m/uL Hgb (13.0-17.5) gm/dL Hct (39.0-53.0) % Neutrophils # (1.3-7.7) k/uL Sodium (137-145) mmol/L Chloride (98-107) mmol/L Carbon Dioxide (22-30) mmol/L Creatinine (0.66-1.25) mg/dL Glucose (74-99) mg/dL POC Glucose (mg/dL) 60 L 196 H 170 H (70-110) mg/dL Calcium (8.4-10.2) mg/dL Procalcitonin (0.02-0.09) ng/mL 03/07/22 03/07/22 03/07/22 Range/Units 07:07 07:07 07:07 WBC 11.3 H (3.8-10.6) k/uL RBC 2.97 L (4.30-5.90) m/uL Hgb 8.3 L (13.0-17.5) gm/dL Hct 25.6 L (39.0-53.0) % Neutrophils # 8.8 H (1.3-7.7) k/uL Sodium 129 L (137-145) mmol/L Chloride 94 L (98-107) mmol/L Carbon Dioxide 32 H (22-30) mmol/L Creatinine 0.49 L (0.66-1.25) mg/dL Glucose 174 H (74-99) mg/dL POC Glucose (mg/dL) (70-110) mg/dL Calcium 7.0 L (8.4-10.2) mg/dL Procalcitonin 0.15 H (0.02-0.09) ng/mL 03/07/22 Range/Units 11:44 WBC (3.8-10.6) k/uL RBC (4.30-5.90) m/uL Hgb (13.0-17.5) gm/dL Hct (39.0-53.0) % Neutrophils # (1.3-7.7) k/uL Sodium (137-145) mmol/L Chloride (98-107) mmol/L Carbon Dioxide (22-30) mmol/L Creatinine (0.66-1.25) mg/dL Glucose (74-99) mg/dL POC Glucose (mg/dL) 227 H (70-110) mg/dL Calcium (8.4-10.2) mg/dL Procalcitonin (0.02-0.09) ng/mL Assessment and Plan Assessment: Diabetic ketoacidosis present on admission resolved diabetes mellitus and hyperglycemia, Acute urinary tract infection secondary to Enterobacter Metabolic encephalopathy, improving New-onset A. fib with RVR on Lovenox Dehydration and hypovolemia improving Generalized weakness, lumbar spine showing only mild spinal stenosis Plan: Continue with Ringer lactate active hydration Patient currently on Levaquin, but patient also on amiodarone. Therefore we'll consult infectious disease team for further recommendation. Check renal ultrasound Continue with oral Protonix Continue with therapeutic dose of Lovenox Continue with amiodarone per Tank Driver Continue monitoring insulin with Levemir 14 units Pulmonary, cardiology and neurology service on the case Labs and medication were reviewed.. Continue same treatment. Continue with symptomatic treatment. Resume home medication. Monitor lytes and vitals. DVT and GI prophylaxis. Further recommendations as per clinical course of the p atient DVT prophylaxis: Subcutaneous heparin GI Prophylaxis: Ppi PT/OT: Pending, ordered Prognosis is guarded
--- NOTE | 2022-03-07 15:22 | US ---
EXAMINATION TYPE: US renals and bladder DATE OF EXAM: 03/07/2022 COMPARISON: NONE CLINICAL HISTORY: uti. EXAM MEASUREMENTS: Right Kidney: 10.9 x 5.8 x 5.6 cm Left Kidney: 11.1 x 6.2 x 4.9 cm Patient unable to move from supine position. Limited visualization of kidneys is not diagnostic. Right Kidney: minimal views due to patient position and cooperation Left Kidney: minimal views due to patient position and cooperation Bladder: Zee Incidental finding of sludge in gallbladder with pericholecystic fluid surrounding gallbladder. Incidental finding of hypoechoic mass measuring 2.5 x 2.9 x 2.3cm, it is difficult to ascertain whether this mass is in the liver or superior to kidney. IMPRESSION: There is echogenic bile. There is some pericholecystic fluid but no gallbladder wall thickening. No renal mass or obstruction. Urinary bladder was empty during the exam. There is a 3 x 2.5 cm hypoechoic area above the upper pole of the right kidney. This could be an adre nal mass.
[2022-03-07] MEDS: CEFEPIME 2 GM in SODIUM CHLORIDE 0.9% 100 ML IVPB SCH (15:24)
[2022-03-07 16:51] LABS: Appearance,Urine Turbid (Clear); Bacteria,Urine Rare /hpf; Bilirubin,Urine Negative (Negative); Blood,Urine Trace (Negative); Budding Yeast,Urine Many /hpf; Color,Urine Light Yellow; Glucose,Urine (UA) 4+ (Negative); Hyphae Yeast, Urine Few /hpf; Ketones,Urine Negative (Negative); Leukocyte Esterase,Urine Large (Negative); Mucus,Urine Rare /hpf; Nitrite,Urine Negative (Negative); Protein,Urine Negative (Negative); RBC,Urine 57 /hpf (0-5); Specific Gravity,Urine 1.012 (1.001-1.035); Squamous Epithelial Cell,Urine 1 /hpf (0-4); Urobilinogen,Urine <2.0 mg/dL (<2.0); WBC,Urine >182 /hpf (0-5)
--- NOTE | 2022-03-07 18:06 | P.CNOR ---
History of Present Illness - [facility] Consult date: 03/07/22 Requesting physician: Sixto Victoria Consult reason: other (BL LE weakness, lumbar spinal stenosis) History of present illness: Patient is a 60-year-old male with a past medical history of diabetes mellitus; ADHD who presented to the emergency department [facility] on 03/01/2022 with chief complaint of palpitations/shortness of breath. Orthopedics has been consult for bilateral lower extremity weakness. Patient was seen at bedside this afternoon lying in semirecumbent position with Ryder boots on and SCDs. Patient says he has had low back pain for many years, however, patient says when he fell about 4 weeks ago the back pain has increased. Patient says he normally ambulates independently or use a walker sometimes. However, patient says his legs have seemed to been getting progressively weaker over the past couple months. Patient does say he has a herniated disc in his lower back. Patient states some radiation of pain down the bilateral lower extremities. When patient fell a month ago patient denies losing consciousness/hitting his head. Patient denies any previous orthopedic surgical history. Patient denies chest pain, fever, shortness breath, nausea, vomiting, change in vision, loss of bowel/bladder control. Past Medical History Past Medical History: Diabetes Mellitus History of Any Multi-Drug Resistant Organisms: None Reported Past Surgical History: Orthopedic Surgery Additional Past Surgical History / Comment(s): back pain son states pt recently "slipped a disc" taking gabapentin. Past Psychological History: No Psychological Hx Reported Smoking Status: Current every day smoker Past Alcohol Use History: Rare Past Drug Use History: None Reported Medications and Allergies Home Medications Medication Instructions Recorded Confirmed Type Dextroamphetamine/Amphetamine 30 mg PO BID 03/01/22 03/01/22 History [Dextroamphetamine/Amphetamine 30 mg Tab] sitaGLIPtin [Januvia] 100 mg PO DAILY 03/02/22 03/02/22 History Allergies Allergy/AdvReac Type Severity Reaction Status Date / Time No Known Allergies Allergy Verified 03/01/22 22:26 Physical Examination Patient is somewhat lethargic during exam. Patient is alert and oriented 3 Inspection: Negative for any open fractures, significant ecchymosis/er ythema/ulcers. Right upper extremity and bilateral lower extremities are somewhat edematous Sensation: Sensation is equal, symmetric, bilaterally intact throughout the upper and lower extremities on exam Palpation: Patient does have some tenderness to palpation along the paraspinal region in the lumbar spine and in midline. NTTP throughout rest exam. Range of motion: Patient has full range of motion bilateral upper extremities on exam. Patient is unable to flex/extend hips, knees bilaterally on exam. Patient is able to wiggle toes and left lower extremity. Patient is unable to plantar/dorsiflex either ankle. Patient does have good range passive range of motion on exam and knee flexion/extension and hip flexion/extension. 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 4+/5 in resisted shoulder elevation, external/internal rotation, elbow flexion/extension and wrist flexion/extension. 2/5 in resisted plantar/dorsiflexion bilaterally. Patient unable to perform motor exam in bilateral knees and hips Neurovascular status: Radial pulse intact, 2+ bilaterally. Cap refill under 3 seconds in digits upper extremities. Special tests: Negative Pb's bilaterally. Negative clonus bilaterally. Negative Homans bilaterally. Results - Labs Labs: Abnormal Lab Results - Last 24 Hours (Table) 03/06/22 03/07/22 03/07/22 Range/Units 17:03 01:35 05:29 WBC (3.8-10.6) k/uL RBC (4.30-5.90) m/uL Hgb (13.0-17.5) gm/dL Hct (39.0-53.0) % Neutrophils # (1.3-7.7) k/uL Sodium (137-145) mmol/L Chloride (98-107) mmol/L Carbon Dioxide (22-30) mmol/L Creatinine (0.66-1.25) mg/dL Glucose (74-99) mg/dL POC Glucose (mg/dL) 60 L 196 H 170 H (70-110) mg/dL Calcium (8.4-10.2) mg/dL Procalcitonin (0.02-0.09) ng/mL 03/07/22 03/07/22 03/07/22 Range/Units 07:07 07:07 07:07 WBC 11.3 H (3.8-10.6) k/uL RBC 2.97 L (4.30-5.90) m/uL Hgb 8.3 L (13.0-17.5) gm/dL Hct 25.6 L (39.0-53.0) % Neutrophils # 8.8 H (1.3-7.7) k/uL Sodium 129 L (137-145) mmol/L Chloride 94 L (98-107) mmol/L Carbon Dioxide 32 H (22-30) mmol/L Creatinine 0.49 L (0.66-1.25) mg/dL Glucose 174 H (74-99) mg/dL POC Glucose (mg/dL) (70-110) mg/dL Calcium 7.0 L (8.4-10.2) mg/dL Procalcitonin 0.15 H (0.02-0.09) ng/mL 03/07/22 Range/Units 11:44 WBC (3.8-10.6) k/uL RBC (4.30-5.90) m/uL Hgb (13.0-17.5) gm/dL Hct (39.0-53.0) % Neutrophils # (1.3-7.7) k/uL Sodium (137-145) mmol/L Chloride (98-107) mmol/L Carbon Dioxide (22-30) mmol/L Creatinine (0.66-1.25) mg/dL Glucose (74-99) mg/dL POC Glucose (mg/dL) 227 H (70-110) mg/dL Calcium (8.4-10.2) mg/dL Procalcitonin (0.02-0.09) ng/mL H & H 03/01/22 03/02/22 03/03/22 Range/Units 20:15 06:40 06:51 Hgb 14.7 11.0 L D 10.8 L (13.0-17.5) gm/dL Hct 46.4 33.9 L 33.5 L (39.0-53.0) % 03/04/22 03/06/22 03/07/22 Range/Units 05:36 05:39 07:07 Hgb 9.8 L 9.3 L 8.3 L (13.0-17.5) gm/dL Hct 29.6 L 28.1 L 25.6 L (39.0-53.0) % Coagulation 03/01/22 Range/Units 20:15 INR 1.1 (<1.2) Result Diagrams: 03/07/22 07:07 10/09/22 07:07 Assessment and Plan Assessment: 1. 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 Bilateral lower extremity weakness Plan: 1. Degenerative disc disease; central spinal cord stenosis at L2-L5; Bilateral lower extremity weakness - patient seen at bedside this afternoon. MRI of thoracic is lumbar spine have been reviewed. There is degenerative disc disease throughout the spine as well as some moderate-severe spinal canal stenosis from L2 through L5 and degenerativ echanges in cervical spine. At this time we are not recommending any emergent orthopedic surgical intervention. Patient may benefit from decompression and fusion of lumbar spine. We'll continue to follow patient during his stay in hospital and discuss treatment options. 2. Appreciate medical, pulmonology, cardiology/vascular management 3. Pain management - Tylenol; tramadol 4. DVT prophylaxis - Lovenox 5. GI prophylaxis - Maalox; protonix 6. PT/OT - weightbearing as tolerated with walker 7. Appreciate consult Time with Patient: Less than 30
[2022-03-07 18:29] LABS: Glucose,Whole Blood 338 mg/dL (70-110)
--- NOTE | 2022-03-07 19:41 | CT ---
EXAMINATION TYPE: CT lumbar spine wo con DATE OF EXAM: 03/07/2022 COMPARISON: MR scan yesterday HISTORY: Back pain CT DLP: mGycm Automated exposure control for dose reduction was used. Images obtained from the level of T12-S1 vertebra without contrast. The lumbar vertebrae have normal alignment. There is some mild disc space narrowing and spur formatio n at L2-3 and L3-4. No significant compression fracture. There is Schmorl node at the L2-3 level. Th ere is no lumbar paraspinal mass. There is ligament thickening and posterior disc bulging at L4-5 wit h some mild spinal stenosis. There is a posterior concentric L4-5 disc bulging. There is moderately s saul stenosis at L2-3 due to posterior disc bulging and facet arthropathy and ligament thickening. T here is developmentally small spinal canal. IMPRESSION: Multilevel spinal stenosis and disc bulging. Multilevel mild facet arthropathy. No acute bony abnorma lity. No change compared to yesterday.
--- NOTE | 2022-03-07 22:02 | P.PN ---
Subjective Progress Note Date: 03/07/22 03/17/2022: Patient was seen for a follow-up. Patient is laying comfortably in the bed. Patient appears somewhat groggy. Continues to have weakness of the lower extremities. 03/06/2022: Patient was seen for a follow-up. Patient was asleep. On waking up, patient was groggy, offers no complaints. 03/05/2022: Patient was seen for a follow-up. Patient is laying comfortably in the bed. Sitter was also present. Patient continues to be weak particularly in the legs. Lower extremities are very painful. He cannot move his lower extremities. Patient claims that this lower exudative weakness started since the fall prior to arrival. Objective - Vital Signs Vital signs: Vital Signs Temp 98.9 F 03/07/22 07:35 Pulse 85 03/07/22 07:38 Resp 17 03/07/22 07:38 BP 121/71 03/07/22 07:35 Pulse Ox 98 03/07/22 02:00 FiO2 21 03/04/22 07:22 Intake & Output 03/06/22 03/07/22 03/07/22 18:59 06:59 18:59 Intake Total 2750 750 Output Total 1300 1000 Balance 1450 -250 Intake: IV 1500 Lactated Ringers 1,000 ml 1500 @ 125 mls/hr IV .Q8H [facility] Rx#:[id number] Oral 500 750 Blood Product 750 Output: Urine 1300 1000 Other: Voiding Method Indwelling Catheter Indwelling Catheter - Exam Patient was somnolent. Detail examination deferred. Patient continues to have significant swelling of his extremities. Lower extremities are severely weak, only able to internally rotate hip slightly and wiggle his ankles slightly. - Labs CBC & Chem 7: 03/07/22 07:07 03/07/22 07:07 Labs: Abnormal Lab Results - Last 24 Hours (Table) 03/06/22 03/07/22 03/07/22 Range/Units 17:03 01:35 05:29 WBC (3.8-10.6) k/uL RBC (4.30-5.90) m/uL Hgb (13.0-17.5) gm/dL Hct (39.0-53.0) % Neutrophils # (1.3-7.7) k/uL Sodium (137-145) mmol/L Chloride (98-107) mmol/L Carbon Dioxide (22-30) mmol/L Creatinine (0.66-1.25) mg/dL Glucose (74-99) mg/dL POC Glucose (mg/dL) 60 L 196 H 170 H (70-110) mg/dL Calcium (8.4-10.2) mg/dL Procalcitonin (0.02-0.09) ng/mL 03/07/22 03/07/22 03/07/22 Range/Units 07:07 07:07 07:07 WBC 11.3 H (3.8-10.6) k/uL RBC 2.97 L (4.30-5.90) m/uL Hgb 8.3 L (13.0-17.5) gm/dL Hct 25.6 L (39.0-53.0) % Neutrophils # 8.8 H (1.3-7.7) k/uL Sodium 129 L (137-145) mmol/L Chloride 94 L (98-107) mmol/L Carbon Dioxide 32 H (22-30) mmol/L Creatinine 0.49 L (0.66-1.25) mg/dL Glucose 174 H (74-99) mg/dL POC Glucose (mg/dL) (70-110) mg/dL Calcium 7.0 L (8.4-10.2) mg/dL Procalcitonin 0.15 H (0.02-0.09) ng/mL 03/07/22 Range/Units 11:44 WBC (3.8-10.6) k/uL RBC (4.30-5.90) m/uL Hgb (13.0-17.5) gm/dL Hct (39.0-53.0) % Neutrophils # (1.3-7.7) k/uL Sodium (137-145) mmol/L Chloride (98-107) mmol/L Carbon Dioxide (22-30) mmol/L Creatinine (0.66-1.25) mg/dL Glucose (74-99) mg/dL POC Glucose (mg/dL) 227 H (70-110) mg/dL Calcium (8.4-10.2) mg/dL Procalcitonin (0.02-0.09) ng/mL Assessment and Plan Assessment: * Altered mental status, likely due to toxic metabolic encephalopathy, improved. * Bilateral lower extremity weakness, unclear etiology. MRI revealed multilevel spinal stenosis, at least moderate to severe in degree. Rule out superimposed critical illness myopathy. * Acute diabetic ketoacidosis * Poorly controlled diabetes * Metabolic acidosis * New onset atrial fibrillation * Urinary tract infection with Enterobacter Clocae, on ceftriaxone. * Tobacco use * History of ADHD. Plan: * MRI of the lumbar and thoracic spine reported as multilevel lumbar spurring and disc bulging with multilevel mild spinal stenosis. Mild wedging of L1 and L2 appears old. No acute abnormality of the thoracic spine. No compression fracture. No thoracic spinal stenosis. I personally reviewed MRI of the lumbar and thoracic spine myself. There is multilevel spinal stenosis at L3- L4, L4-L5, and lesser degree at L2-L3 and L5-S1 levels. The most significant is at L4-L5 level, which appears moderate to severe on my review. * Orthopedic spine surgery input appreciated. No surgery planned in the near future. * B12 727, folate 7.6, TSH 1.7. Patient's last hemoglobin A1c on 06/07/2016 was 12.7. Repeat hemoglobin A1c 12.9 on 03/05/2022. Ammonia is normal. * EMG nerve conductions of lower extremity as an outpatient. * Optimize control of diabetes. * Recommended tobacco cessation. * EEG 03/04/2022 was abnormal due to background slowing of moderate degree. This is suggestive of generalized cerebral dysfunction as can be seen with toxic metabolic encephalopathy or due to diffuse structural brain abnormality. Clinical correlation recommended. No epileptiform activity was seen. * Patient has new onset atrial fibrillation. Currently on full dose anticoagu lation with Lovenox. * Medical management as per IM, critical care and other specialties. * Recommend PT OT. * Dr. Freddie Sheehan will assume neurology service in the morning.
[2022-03-08 00:30] LABS: Glucose,Whole Blood 272 mg/dL (70-110)
[2022-03-08] MEDS: CEFEPIME 2 GM in SODIUM CHLORIDE 0.9% 100 ML IVPB SCH ×3 (00:49→16:23)
[2022-03-08] MEDS: ENOXAPARIN 100 MG/ML SYRINGE SQ SCH ×2 (00:50→08:11)
[2022-03-08] MEDS: INSULIN ASPART (NovoLOG) 100 UNIT/ML VIAL SQ SCH ×4 (00:50→17:54)
[2022-03-08] MEDS: traMADol 50 MG TAB PO PRN ×3 (00:51→17:54)
[2022-03-08] MEDS: LACTATED RINGERS 1,000 ML IV SCH ×2 (01:03→17:55)
[2022-03-08 06:10] LABS: Glucose,Whole Blood 108 mg/dL (70-110)
[2022-03-08 06:18] LABS: Basophils # (A) 0.1 k/uL (0-0.2); Basophils % (A) 0 %; Eosinophils # (A) 0.2 k/uL (0-0.7); Eosinophils % (A) 2 %; HCT 28.5 % (39.0-53.0); HGB 9.7 gm/dL (13.0-17.5); Lymphocytes # (A) 1.5 k/uL (1.0-4.8); Lymphocytes % (A) 11 %; MCH 28.3 pg (25.0-35.0); MCHC 33.9 g/dL (31.0-37.0); MCV 83.5 fL (80.0-100.0); Mean Platelet Volume 8.7; Monocytes # (A) 0.7 k/uL (0-1.0); Monocytes % (A) 5 %; Neutrophils # (A) 11.6 k/uL (1.3-7.7); Neutrophils % (A) 82 %; Platelet Count 400 k/uL (150-450); RBC 3.41 m/uL (4.30-5.90); RDW 13.6 % (11.5-15.5); WBC 14.2 k/uL (3.8-10.6)
[2022-03-08 06:24] LABS: African American GFR (CKD) >90 (>60 ml/min/1.73 sqM); Anion Gap 5 mmol/L; Blood Urea Nitrogen 7 mg/dL (9-20); Calcium 7.1 mg/dL (8.4-10.2); Carbon Dioxide 30 mmol/L (22-30); Chloride 94 mmol/L (98-107); Glucose 94 mg/dL (74-99); Non-African American GFR(CKD) >90 (>60 ml/min/1.73 sqM); Potassium 3.7 mmol/L (3.5-5.1); Sodium 129 mmol/L (137-145)
[2022-03-08 06:47] LABS: Glucose,Whole Blood 134 mg/dL (70-110)
--- NOTE | 2022-03-08 07:15 | P.CONS ---
History of Present Illness - Reason for Consult Consult date: 03/07/22 UTI with resistant Enterobacter Requesting physician: Kayode E Sheet - Chief Complaint Shortness of breath x few days - History of Present Illness Patient is a 62-year-old male initially presenting to the hospital about a week ago on 03/01/2022 for evaluation of palpitations and shortness of breath symptom has been going on for few hours before presentation to the hospital no nausea no vomiting or any focal weakness patient on presentation to the hospital was afebrile subsequently he did spike a low-grade fever of 100.2 on 03/03/2022 and 100.7 on 03/05/2022 patient did have white count 32,000 admission that has came down to 11.3 as of this morning patient did have a normal creatinine during this admission patient did have a positive UA and did have some irritation requiring Zee catheter that has to be replaced last evening per the nursing staff urine testing was negative patient did have a chest x-ray no focal airspace opacity, did have MRI of the thoracolumbar spine multilevel lumbar spurring and disc bulging multilevels spinal stenosis mild wedging of L1 and L2 appears old the patient urine has been finalized with Enterobacter with resistant to ceftriaxone and the patient was on antibiotic was switched to oral Levaquin infectious disease was consulted for further management of antibiotic therapy, patient currently denies having any headache or URI symptoms no chest pain or shortness of breath or cough currently the patient is on room air patient denies having any nausea vomiting abdominal pain or diarrhea Review of Systems Positive point has been mentioned in the HPI rest of the systems are negative Past Medical History Past Medical History: Diabetes Mellitus History of Any Multi-Drug Resistant Organisms: None Reported Past Surgical History: Orthopedic Surgery Additional Past Surgical History / Comment(s): back pain son states pt recently "slipped a disc" taking gabapentin. Past Psychological History: No Psychological Hx Reported Smoking Status: Current every day smoker Past Alcohol Use History: Rare Past Drug Use History: None Reported Medications and Allergies Home Medications Medication Instructions Recorded Confirmed Type Dextroamphetamine/Amphetamine 30 mg PO BID 03/01/22 03/01/22 History [Dextroamphetamine/Amphetamine 30 mg Tab] sitaGLIPtin [Januvia] 100 mg PO DAILY 03/02/22 03/02/22 History Allergies Allergy/AdvReac Type Severity Reaction Status Date / Time No Known Allergies Allergy Verified 03/01/22 22:26 Physical Exam Vitals: Vital Signs Temp Pulse Pulse Resp BP Pulse Ox 03/07/22 07:38 85 81 17 03/07/22 07:35 98.9 F 81 17 121/71 03/07/22 02:00 99.8 F H 80 18 135/64 98 03/06/22 20:00 98.3 F 85 18 121/70 Intake and Output 03/07/22 03/07/22 03/07/22 06:59 14:59 22:59 Intake Total 750 Output Total 1000 Balance -250 Intake: Oral 750 Output: Urine 1000 Other: Voiding Method Indwelling Catheter GENERAL DESCRIPTION: Middle-aged male lying in bed, no distress. No tachypnea or accessory muscle of respiration use. HEENT: Shows Pallor , no scleral icterus. Oral mucous membrane is dry. No pharyngeal erythema or thrush NECK: Trachea central, no thyromegaly. LUNGS: Unlabored breathing. Coarse breath sounds bilaterally. HEART: S1, S2, regular rate and rhythm. No loud murmur ABDOMEN: Soft, no tenderness , guarding or rigidity, no organomegaly EXTREMITIES: No edema of feet. SKIN: No rash, no masses palpable. NEUROLOGICAL: The patient is awake, alert, oriented x3, mood and affect normal. Results CBC & Chem 7: 03/19/22 07:56 03/18/22 06:50 Labs: Abnormal Lab Results - Last 24 Hours (Table) 03/06/22 03/07/22 03/07/22 Range/Units 17:03 01:35 05:29 WBC (3.8-10.6) k/uL RBC (4.30-5.90) m/uL Hgb (13.0-17.5) gm/dL Hct (39.0-53.0) % Neutrophils # (1.3-7.7) k/uL Sodium (137-145) mmol/L Chloride (98-107) mmol/L Carbon Dioxide (22-30) mmol/L Creatinine (0.66-1.25) mg/dL Glucose (74-99) mg/dL POC Glucose (mg/dL) 60 L 196 H 170 H (70-110) mg/dL Calcium (8.4-10.2) mg/dL Procalcitonin (0.02-0.09) ng/mL 03/07/22 03/07/22 03/07/22 Range/Units 07:07 07:07 07:07 WBC 11.3 H (3.8-10.6) k/uL RBC 2.97 L (4.30-5.90) m/uL Hgb 8.3 L (13.0-17.5) gm/dL Hct 25.6 L (39.0-53.0) % Neutrophils # 8.8 H (1.3-7.7) k/uL Sodium 129 L (137-145) mmol/L Chloride 94 L (98-107) mmol/L Carbon Dioxide 32 H (22-30) mmol/L Creatinine 0.49 L (0.66-1.25) mg/dL Glucose 174 H (74-99) mg/dL POC Glucose (mg/dL) (70-110) mg/dL Calcium 7.0 L (8.4-10.2) mg/dL Procalcitonin 0.15 H (0.02-0.09) ng/mL 03/07/22 Range/Units 11:44 WBC (3.8-10.6) k/uL RBC (4.30-5.90) m/uL Hgb (13.0-17.5) gm/dL Hct (39.0-53.0) % Neutrophils # (1.3-7.7) k/uL Sodium (137-145) mmol/L Chloride (98-107) mmol/L Carbon Dioxide (22-30) mmol/L Creatinine (0.66-1.25) mg/dL Glucose (74-99) mg/dL POC Glucose (mg/dL) 227 H (70-110) mg/dL Calcium (8.4-10.2) mg/dL Procalcitonin (0.02-0.09) ng/mL Assessment and Plan (1) Catheter-associated urinary tract infection Current Visit: Yes Status: Acute Code(s): T83.511A - I/I REACT D/T INDWELLING URETHRAL CATHETER, INIT; N39.0 - URINARY TRACT INFECTION, SITE NOT SPECIFIED SNOMED Code(s): 095367092 Plan: 1patient with a low-grade fever positive UA and urinary symptoms retention requiring Zee catheter placement concerning for a symptomatic UTI urine has been finalized with Enterobacter and this patient is currently on amiodarone using quinolones can lead to QT prolongation hence we will discontinue Levaquin 2repeat a UA and a culture 3start the patient cefepime 2 g every 8 hours while waiting for repeat culture to finalize We will follow on clinical condition and cultures to further adjust medication if needed Thank you for this consultation will follow this patient along with you Time with Patient: Greater than 30
[2022-03-08] MEDS: NICOTINE 21MG/24HR PATCH TRANSDERM SCH (08:11)
[2022-03-08] MEDS: PANTOPRAZOLE 40 MG TABLET PO SCH (08:11)
[2022-03-08] MEDS: INSULIN DETEMIR (LEVEMIR) 100 UNIT/ML SYR SQ SCH (08:11)
[2022-03-08] MEDS: FOLIC ACID 1 MG TAB PO SCH (08:11)
[2022-03-08] MEDS: METOPROLOL TARTRATE 50 MG TAB PO SCH ×2 (08:12→22:03)
[2022-03-08] MEDS: SODIUM BICARBONATE TAB 650 MG TAB PO SCH ×3 (08:12→22:03)
[2022-03-08] MEDS: AMIODARONE 200 MG TAB PO SCH ×2 (08:12→22:03)
[2022-03-08] MEDS: MAGNESIUM OXIDE 400 MG TAB PO SCH ×3 (08:12→22:03)
--- NOTE | 2022-03-08 08:59 | P.PN ---
Subjective Progress Note Date: 03/08/22 Principal diagnosis: Bilateral lower extremity weakness Patient seen and examined at bedside. Patient is resting semi-recumbent in hospital bed with PRAFO boots present on bilateral feet. Patient has slight movement of bilateral lower extremities and reports numbness to left lower extremity. Patient states that his pain is managed on current regimen. Discussed surgical options with patient and he states he would like to proceed. Surgical intervention scheduled for Tuesday pending medical clearance. Encouraged use of incentive spirometer. Patient currently denies any fever/chills, shortness of breath, or chest pain. Objective - Vital Signs Vital signs: Vital Signs Temp 101.2 F H 03/08/22 01:29 Pulse 74 03/08/22 01:29 Resp 16 03/08/22 01:29 BP 146/79 03/08/22 01:29 Pulse Ox 98 03/08/22 01:29 FiO2 21 03/04/22 07:22 Intake & Output 03/07/22 03/08/22 03/08/22 18:59 06:59 18:59 Intake Total 100 650 Output Total 925 2300 Balance -825 -1650 Intake: Intake, IV Titration 100 Amount Cefepime 2 gm In Sodium 100 Chloride 0.9% 100 ml @ 25 mls/hr IVPB Q8HR [facility] Rx# :[id number] Oral 650 Output: Urine 925 2300 Other: Voiding Method Indwelling Catheter Indwelling Catheter - Exam Physical Examination General: The patient is awake and alert, in no acute distress Skin: Skin is warm and dry with no obvious rashes or lesions. Hairy patches absent, no dorsal skin dimples, no cafe au lait spots, and no surgical incisions. Eye: Pupils are equal, round and reactive to light, extra-ocular movements are intact; there is normal conjunctiva bilaterally. Neck: The neck is supple, there is no tenderness and ROM intact. Cardiovascular: There is a regular rate and rhythm. No murmur, rub or gallop is appreciated. Respiratory: Lungs are clear to auscultation, respirations are non-labored, breath sounds are equal. Gastrointestinal: Soft, non-distended, non-tender abdomen . Back: There is slight tenderness to palpation in the paralumbar region. There is no obvious deformity . Musculoskeletal: ROM limited secondary to pain. Shoulder abduction 5/5, elbow flexors 5/5, wrist dorsiflexors 5/5. 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 Neurological: CN 2-12 intact. There are no obvious motor or sensory deficits. Movement and coordination equal and intact. Sensory exam to light touch intact C5-T1 and intact from L2-S1. Reflexes 2/4 in bilateral upper and lower extremities. Negative Hoffmans, babinski, and clonus signs. Psychiatric: Cooperative, appropriate mood & affect, normal judgment. - Labs CBC & Chem 7: 03/08/22 05:31 03/08/22 05:31 Labs: Abnormal Lab Results - Last 24 Hours (Table) 03/07/22 03/07/22 03/07/22 Range/Units 07:07 07:07 07:07 WBC 11.3 H (3.8-10.6) k/uL RBC 2.97 L (4.30-5.90) m/uL Hgb 8.3 L (13.0-17.5) gm/dL Hct 25.6 L (39.0-53.0) % Neutrophils # 8.8 H (1.3-7.7) k/uL Sodium 129 L (137-145) mmol/L Chloride 94 L (98-107) mmol/L Carbon Dioxide 32 H (22-30) mmol/L BUN (9-20) mg/dL Creatinine 0.49 L (0.66-1.25) mg/dL Glucose 174 H (74-99) mg/dL POC Glucose (mg/dL) (70-110) mg/dL Calcium 7.0 L (8.4-10.2) mg/dL Procalcitonin 0.15 H (0.02-0.09) ng/mL Urine Glucose (UA) (Negative) Urine Blood (Negative) Ur Leukocyte Esterase (Negative) Urine RBC (0-5) /hpf Urine WBC (0-5) /hpf Urine Bacteria (None) /hpf Urine Mucus (None) /hpf Urine Yeast (Budding) (None) /hpf 03/07/22 03/07/22 03/07/22 Range/Units 11:44 16:30 18:28 WBC (3.8-10.6) k/uL RBC (4.30-5.90) m/uL Hgb (13.0-17.5) gm/dL Hct (39.0-53.0) % Neutrophils # (1.3-7.7) k/uL Sodium (137-145) mmol/L Chloride (98-107) mmol/L Carbon Dioxide (22-30) mmol/L BUN (9-20) mg/dL Creatinine (0.66-1.25) mg/dL Glucose (74-99) mg/dL POC Glucose (mg/dL) 227 H 338 H (70-110) mg/dL Calcium (8.4-10.2) mg/dL Procalcitonin (0.02-0.09) ng/mL Urine Glucose (UA) 4+ H (Negative) Urine Blood Trace H (Negative) Ur Leukocyte Esterase Large H (Negative) Urine RBC 57 H (0-5) /hpf Urine WBC >182 H (0-5) /hpf Urine Bacteria Rare H (None) /hpf Urine Mucus Rare H (None) /hpf Urine Yeast (Budding) Many H (None) /hpf 03/08/22 03/08/22 03/08/22 Range/Units 00:29 05:31 05:31 WBC 14.2 H (3.8-10.6) k/uL RBC 3.41 L (4.30-5.90) m/uL Hgb 9.7 L (13.0-17.5) gm/dL Hct 28.5 L (39.0-53.0) % Neutrophils # 11.6 H (1.3-7.7) k/uL Sodium 129 L (137-145) mmol/L Chloride 94 L (98-107) mmol/L Carbon Dioxide (22-30) mmol/L BUN 7 L (9-20) mg/dL Creatinine 0.42 L (0.66-1.25) mg/dL Glucose (74-99) mg/dL POC Glucose (mg/dL) 272 H (70-110) mg/dL Calcium 7.1 L (8.4-10.2) mg/dL Procalcitonin (0.02-0.09) ng/mL Urine Glucose (UA) (Negative) Urine Blood (Negative) Ur Leukocyte Esterase (Negative) Urine RBC (0-5) /hpf Urine WBC (0-5) /hpf Urine Bacteria (None) /hpf Urine Mucus (None) /hpf Urine Yeast (Budding) (None) /hpf 03/08/22 Range/Units 06:46 WBC (3.8-10.6) k/uL RBC (4.30-5.90) m/uL Hgb (13.0-17.5) gm/dL Hct (39.0-53.0) % Neutrophils # (1.3-7.7) k/uL Sodium (137-145) mmol/L Chloride (98-107) mmol/L Carbon Dioxide (22-30) mmol/L BUN (9-20) mg/dL Creatinine (0.66-1.25) mg/dL Glucose (74-99) mg/dL POC Glucose (mg/dL) 134 H (70-110) mg/dL Calcium (8.4-10.2) mg/dL Procalcitonin (0.02-0.09) ng/mL Urine Glucose (UA) (Negative) Urine Blood (Negative) Ur Leukocyte Esterase (Negative) Urine RBC (0-5) /hpf Urine WBC (0-5) /hpf Urine Bacteria (None) /hpf Urine Mucus (None) /hpf Urine Yeast (Budding) (None) /hpf Microbiology - Last 24 Hours (Table) 03/07/22 16:30 Urine Culture - Preliminary Urine,Voided Assessment and Plan Assessment: Degenerative disc disease Central spinal cord stenosis at L2-L5 Bilateral lower extremity weakness Plan: Plan: 1. Plan for surgical intervention on Tuesday03/10/22 for L2-S1 laminectomy with decompression and possible fusion 2. Appreciate medical, pulmonology, cardiology/vascular management 3. Pain management - Tylenol; tramadol 4. DVT prophylaxis - Lovenox 5. GI prophylaxis - Maalox; protonix 6. PT/OT - weightbearing as tolerated with walker, maintain PRAFO boots when in bed. 7. Appreciate consult *I reviewed and discussed this case with my attending Dr. Newton, whom has reviewed this chart and films and is in agreement with assessment and plan of care as outlined above. I have personally seen and examined the patient, performed the documentation and the assessment and plan as written. Number of minutes spent on the visit: 20m.
--- NOTE | 2022-03-08 10:20 | P.PN ---
Subjective Progress Note Date: 03/08/22 HISTORY OF PRESENT ILLNESS: The patient is a 62-year-old gentleman with diabetes who was admitted to the hospital with change in mental status and he was diagnosed with diabetes ket oacidosis. We involved in the care of the patient because he went into SVT and subsequently atrial fibrillation was converted to sinus mechanism on amiodarone. He underwent an echo which revealed normal left ventricle systolic function with no significant valvular abnormalities. The patient was seen this morning. He remains stable hemodynamically and he remains asymptomatic. He has been maintaining normal sinus mechanism. Currently is on amiodarone by mouth which need to be tapered down down the line and also he is on beta sandee. He is on anticoagulation was Lovenox which need to be switched to oral anticoagulation as well as. From the cardiac standpoint of view, the patient can be transferred to the selective floor 03/07/2022 The patient was seen and evaluated today. He has been maintaining sinus rhythm. He is asymptomatic and he is also hemodynamically stable. Currently he is on amiodarone by mouth. He is on Lovenox. His hemoglobin continues to be marginal. From a cardiac vascular standpoint of view, would continue the current medical regimen. Consider switch the patient to oral anticoagulation down the line. 03/08/2022 Patient examined this morning at the bedside. Patient denies chest pain or pressure. Denies SOB. He is currently not on telemetry but sounds regular upon auscultation. Vital signs are stable. He remains on lovenox. Echo reveals EF 55- 60%. PHYSICAL EXAM: VITAL SIGNS: Reviewed. GENERAL: Well-developed in no acute distress. NECK: Supple. No JVD or thyromegaly LUNGS: Respirations even and unlabored. Lungs essentially clear to auscultation bilaterally. HEART: Regular rate and rhythm. S1 and S2 heard. EXTREMITIES: Normal range of motion. No clubbing or cyanosis. Peripheral pulses intact. No lower extremity edema ASSESSMENT: Bilateral lower extremity weakness Degenerative disc disease Central spinal cord stenosis at L2-L5 Altered mental status New-onset paroxysmal atrial fibrillation SVT Diabetes PLAN: Continue current dose of Lovenox. Hold per orthopedics pending surgery date. Postoperatively, recommend Eliquis 5mg BID when okay with orthopedics Continue amio 200mg BID for 1 week, then decrease to 200mg daily Continue metoprolol No absolute contraindications from a cardiac standpoint to undergo surgery We will sign off. Please reconsult if needed. Nurse practitioner note has been reviewed by physician. Signing provider agrees with the documented findings, assessment, and plan of care. Objective - Vital Signs Vital signs: Vital Signs Temp 99.5 F 03/08/22 07:35 Pulse 88 03/08/22 07:35 Resp 17 03/08/22 07:35 BP 146/78 03/08/22 07:35 Pulse Ox 97 03/08/22 07:35 FiO2 21 03/04/22 07:22 Intake & Output 03/07/22 03/08/22 03/08/22 18:59 06:59 18:59 Intake Total 100 650 Output Total 925 2300 Balance -825 -1650 Intake: Intake, IV Titration 100 Amount Cefepime 2 gm In Sodium 100 Chloride 0.9% 100 ml @ 25 mls/hr IVPB Q8HR [facility] Rx# :[id number] Oral 650 Output: Urine 925 2300 Other: Voiding Method Indwelling Catheter Indwelling Catheter Indwelling Catheter # Bowel Movements 1 - Labs CBC & Chem 7: 03/08/22 05:31 03/08/22 05:31 Labs: Abnormal Lab Results - Last 24 Hours (Table) 03/07/22 03/07/22 03/07/22 Range/Units 07:07 11:44 16:30 WBC (3.8-10.6) k/uL RBC (4.30-5.90) m/uL Hgb (13.0-17.5) gm/dL Hct (39.0-53.0) % Neutrophils # (1.3-7.7) k/uL Sodium (137-145) mmol/L Chloride (98-107) mmol/L BUN (9-20) mg/dL Creatinine (0.66-1.25) mg/dL POC Glucose (mg/dL) 227 H (70-110) mg/dL Calcium (8.4-10.2) mg/dL Procalcitonin 0.15 H (0.02-0.09) ng/mL Urine Glucose (UA) 4+ H (Negative) Urine Blood Trace H (Negative) Ur Leukocyte Esterase Large H (Negative) Urine RBC 57 H (0-5) /hpf Urine WBC >182 H (0-5) /hpf Urine Bacteria Rare H (None) /hpf Urine Mucus Rare H (None) /hpf Urine Yeast (Budding) Many H (None) /hpf 03/07/22 03/08/22 03/08/22 Range/Units 18:28 00:29 05:31 WBC 14.2 H (3.8-10.6) k/uL RBC 3.41 L (4.30-5.90) m/uL Hgb 9.7 L (13.0-17.5) gm/dL Hct 28.5 L (39.0-53.0) % Neutrophils # 11.6 H (1.3-7.7) k/uL Sodium (137-145) mmol/L Chloride (98-107) mmol/L BUN (9-20) mg/dL Creatinine (0.66-1.25) mg/dL POC Glucose (mg/dL) 338 H 272 H (70-110) mg/dL Calcium (8.4-10.2) mg/dL Procalcitonin (0.02-0.09) ng/mL Urine Glucose (UA) (Negative) Urine Blood (Negative) Ur Leukocyte Esterase (Negative) Urine RBC (0-5) /hpf Urine WBC (0-5) /hpf Urine Bacteria (None) /hpf Urine Mucus (None) /hpf Urine Yeast (Budding) (None) /hpf 03/08/22 03/08/22 Range/Units 05:31 06:46 WBC (3.8-10.6) k/uL RBC (4.30-5.90) m/uL Hgb (13.0-17.5) gm/dL Hct (39.0-53.0) % Neutrophils # (1.3-7.7) k/uL Sodium 129 L (137-145) mmol/L Chloride 94 L (98-107) mmol/L BUN 7 L (9-20) mg/dL Creatinine 0.42 L (0.66-1.25) mg/dL POC Glucose (mg/dL) 134 H (70-110) mg/dL Calcium 7.1 L (8.4-10.2) mg/dL Procalcitonin (0.02-0.09) ng/mL Urine Glucose (UA) (Negative) Urine Blood (Negative) Ur Leukocyte Esterase (Negative) Urine RBC (0-5) /hpf Urine WBC (0-5) /hpf Urine Bacteria (None) /hpf Urine Mucus (None) /hpf Urine Yeast (Budding) (None) /hpf Microbiology - Last 24 Hours (Table) 03/07/22 16:30 Urine Culture - Preliminary Urine,Voided
[2022-03-08 11:41] LABS: Glucose,Whole Blood 331 mg/dL (70-110)
--- NOTE | 2022-03-08 13:09 | P.PN ---
Subjective Progress Note Date: 03/08/22 On today's evaluation of times in 2021, I'm seeing the patient for a follow-up. There is a case of nausea that fibrillation, DKA, in addition to a gram-negative UTI. The patient came initially to the intensive care unit because of palpitation and shortness of breath. The patient was found to be in DKA. Chest x-ray showed no acute process. The patient otherwise is being so they seen for a follow-up. This morning, was told that he had black bloody stools 2. He has not any further episodes of bleeding since. Hemoglobin currently is at 9.7 which is very much comparable to yesterday. His sodium levels of 129 with a chloride of 94 and MB of 7 and a creatinine of 0.4. His UA is still abnormal. The patient had Enterobacter cultured in his urine and the patient's is currently receiving IV cefepime. In terms of his DKA, he is on 14 units of Levemir insulin in addition to NovoLog sliding scale coverage. His most recent gap is down to 5 and the serum bicarb is up to 30. His cardiac rhythms sinus. He was placed on a monitor. He remains on amiodarone 200 mg by mouth twice a day. He is also on Lovenox for this continued to cause of the suspected GI bleeding. The patient also had an echocardiogram during this current admission indicating normal LV function without any significant structural or valvular abnormalities. He is currently on room air oxygen. The patient is incontinent so urine and stool. The patient has stage II was on his coccyx and he also had deep tissue injury on his heels and on his feet. Objective - Vital Signs Vital signs: Vital Signs Temp 99.5 F 03/08/22 07:35 Pulse 88 03/08/22 07:35 Resp 17 03/08/22 07:35 BP 146/78 03/08/22 07:35 Pulse Ox 97 03/08/22 07:35 FiO2 21 03/04/22 07:22 Intake & Output 03/07/22 03/08/22 03/08/22 18:59 06:59 18:59 Intake Total 100 650 Output Total 925 2300 Balance -825 1650 Intake: Intake, IV Titration 100 Amount Cefepime 2 gm In Sodium 100 Chloride 0.9% 100 ml @ 25 mls/hr IVPB Q8HR [facility] Rx# :[id number] Oral 650 Output: Urine 925 2300 Other: Voiding Method Indwelling Catheter Indwelling Catheter Indwelling Catheter # Bowel Movements 1 - Exam No acute distress, oriented 3. Currently on room air. Mental status is lethargic HEENT examination is grossly unremarkable. Neck supple. Full range of motion. No adenopathy thyromegaly or neck vein distention. Cardiovascular examination reveals regular rhythm rate. S1-S2 normal. No S3 or S4. No discernible murmur noted. Heart rate 85 bpm. Heart sounds are distant. Lungs reveal mostly clear breath sounds. Minimal scattered rhonchi. No wheezes or crackles. Room air saturation is 98%. Breath sounds are equal bilaterally. Abdomen soft bowel sounds are heard. No masses or tenderness. Extremities are intact. No cyanosis clubbing or edema. DTI to the heel on the right Skin is without rash or lesion. stage 2 wound on the coccyx Neurologic examination is brief but nonfocal. Profoundly weak - Labs CBC & Chem 7: 03/08/22 05:31 03/08/22 05:31 Labs: Abnormal Lab Results - Last 24 Hours (Table) 03/07/22 03/07/22 03/08/22 Range/Units 16:30 18:28 00:29 WBC (3.8-10.6) k/uL RBC (4.30-5.90) m/uL Hgb (13.0-17.5) gm/dL Hct (39.0-53.0) % Neutrophils # (1.3-7.7) k/uL Sodium (137-145) mmol/L Chloride (98-107) mmol/L BUN (9-20) mg/dL Creatinine (0.66-1.25) mg/dL POC Glucose (mg/dL) 338 H 272 H (70-110) mg/dL Calcium (8.4-10.2) mg/dL Urine Glucose (UA) 4+ H (Negative) Urine Blood Trace H (Negative) Ur Leukocyte Esterase Large H (Negative) Urine RBC 57 H (0-5) /hpf Urine WBC >182 H (0-5) /hpf Urine Bacteria Rare H (None) /hpf Urine Mucus Rare H (None) /hpf Urine Yeast (Budding) Many H (None) /hpf 03/08/22 03/08/22 03/08/22 Range/Units 05:31 05:31 06:46 WBC 14.2 H (3.8-10.6) k/uL RBC 3.41 L (4.30-5.90) m/uL Hgb 9.7 L (13.0-17.5) gm/dL Hct 28.5 L (39.0-53.0) % Neutrophils # 11.6 H (1.3-7.7) k/uL Sodium 129 L (137-145) mmol/L Chloride 94 L (98-107) mmol/L BUN 7 L (9-20) mg/dL Creatinine 0.42 L (0.66-1.25) mg/dL POC Glucose (mg/dL) 134 H (70-110) mg/dL Calcium 7.1 L (8.4-10.2) mg/dL Urine Glucose (UA) (Negative) Urine Blood (Negative) Ur Leukocyte Esterase (Negative) Urine RBC (0-5) /hpf Urine WBC (0-5) /hpf Urine Bacteria (None) /hpf Urine Mucus (None) /hpf Urine Yeast (Budding) (None) /hpf 03/08/22 Range/Units 11:39 WBC (3.8-10.6) k/uL RBC (4.30-5.90) m/uL Hgb (13.0-17.5) gm/dL Hct (39.0-53.0) % Neutrophils # (1.3-7.7) k/uL Sodium (137-145) mmol/L Chloride (98-107) mmol/L BUN (9-20) mg/dL Creatinine (0.66-1.25) mg/dL POC Glucose (mg/dL) 331 H (70-110) mg/dL Calcium (8.4-10.2) mg/dL Urine Glucose (UA) (Negative) Urine Blood (Negative) Ur Leukocyte Esterase (Negative) Urine RBC (0-5) /hpf Urine WBC (0-5) /hpf Urine Bacteria (None) /hpf Urine Mucus (None) /hpf Urine Yeast (Budding) (None) /hpf Microbiology - Last 24 Hours (Table) 03/07/22 16:30 Urine Culture - Preliminary Urine,Voided Assessment and Plan Plan: Acute diabetic ketoacidosis, recovered. Altered mental status, improved. Enterobacter cloacae urinary tract infection, on IV cefepime Leukocytosis, improved. Hypokalemia, improved. Anion gap metabolic acidosis secondary to above. New onset atrial fibrillation with rapid ventricular response, currently in s inus Poosible UGI , currently off anticoagulation History of diabetes mellitusl, on levemir Chronic and ongoing tobacco dependence. History of ADHD. Plan: This patient is extremely debilitated, lethargic and weak. He has developed stage II one on his coccyx for which a Opteform was applied The patient also has many boots to protect his heels as the patient has developed deep tissue injury to his feet bilaterally The patient is currently taking minimal amounts of oral intake Patient is on long-acting insulin DKA has a cupboards There is a concern for a GI bleed. The patient will be kept nothing by mouth for now and we will place on IV Protonix consult gastroenterology for possibilit y of upper GI bleed Monitor hemoglobin No anticoagulants for now Cardiac rhythm is sinus Continue IV cefepime We'll continue to follow
[2022-03-08] MEDS: ACETAMINOPHEN TAB 325 MG TAB PO PRN (14:52)
--- NOTE | 2022-03-08 15:31 | P.PN ---
Subjective Progress Note Date: 03/08/22 I am seeing the patient for the first time during this hospital visit. Patient is not great historian but he stated he was walking with a can about 3 months ago but now he cannot move his legs during this hospital visit. He states he had chronic lower back pain but nothing new. Denies any new numbness or tingling. Denies weakness in uppers, difficulty swallowing. Dr. Victoria evaluated the patient during this visit and he felt weakness was possibly related to multilevel spinal stenosis in lumbar region and rule out critical illness myopathy. Objective - Vital Signs Vital signs: Vital Signs Temp 100.4 F H 03/08/22 14:00 Pulse 75 03/08/22 14:00 Resp 16 03/08/22 14:00 BP 120/77 03/08/22 14:00 Pulse Ox 99 03/08/22 14:00 FiO2 21 03/04/22 07:22 Intake & Output 03/07/22 03/08/22 03/08/22 18:59 06:59 18:59 Intake Total 100 650 Output Total 925 2300 710 Balance -825 -2014 -518 Intake: Intake, IV Titration 100 Amount Cefepime 2 gm In Sodium 100 Chloride 0.9% 100 ml @ 25 mls/hr IVPB Q8HR [facility] Rx# :[id number] Oral 650 Output: Urine 925 2300 710 Uretheral (Zee) 710 Other: Voiding Method Indwelling Catheter Indwelling Catheter Indwelling Catheter # Bowel Movements 1 - Exam GENERAL: The patient is lying in bed and is not in acute distress. NEUROLOGICAL: Higher mental function: The patient is awake, alert, oriented to self, place and time. Mildly slow in responding. Patient is following simple commands. No aphasia and no neglect. Cranial nerves: The pupils are round, equal and reactive to light . Visual aponte are full to confrontation throughout. Extraocular movement is intact no nystagmus is noted. Facial sensation is normal to touch throughout. The facial strength is normal throughout. Tongue is midline and moved [id number] without any difficulty. No dysarthria is noted. Shoulder shrug is normal bilaterally. Motor: Gait is deferred because of weakness in lowers. The strength is 5 over 5 throughout uppers while lowers he was able to internally/externally rotate of left hip and wiggle his toes on the left. Has minimal movement of right lower proximally 1. Normal bulk. Slight decrease tone in lowers. Cerebellum: Normal finger to nose bilaterally. Sensation: Sensation is normal to touch throughout. Reflexes (right/left): 0 in lowers while uppers are 1+ SOME OF THE WORK-UP DURING THIS HOSPITAL VISIT CONSISTED OF: * B12 727, folate 7.6, TSH 1.7. Patient's last hemoglobin A1c on 06/07/2016 was 12.7. Repeat hemoglobin A1c 12.9 on 03/05/2022. Ammonia is normal. * EEG 03/04/2022 was abnormal due to background slowing of moderate degree. This is suggestive of generalized cerebral dysfunction as can be seen with toxic metabolic encephalopathy or due to diffuse structural brain abnormality. Clinical correlation recommended. No epileptiform activity was seen. - Labs CBC & Chem 7: 03/08/22 05:31 03/08/22 05:31 Labs: Abnormal Lab Results - Last 24 Hours (Table) 03/07/22 03/07/22 03/08/22 Range/Units 16:30 18:28 00:29 WBC (3.8-10.6) k/uL RBC (4.30-5.90) m/uL Hgb (13.0-17.5) gm/dL Hct (39.0-53.0) % Neutrophils # (1.3-7.7) k/uL Sodium (137-145) mmol/L Chloride (98-107) mmol/L BUN (9-20) mg/dL Creatinine (0.66-1.25) mg/dL POC Glucose (mg/dL) 338 H 272 H (70-110) mg/dL Calcium (8.4-10.2) mg/dL Urine Glucose (UA) 4+ H (Negative) Urine Blood Trace H (Negative) Ur Leukocyte Esterase Large H (Negative) Urine RBC 57 H (0-5) /hpf Urine WBC >182 H (0-5) /hpf Urine Bacteria Rare H (None) /hpf Urine Mucus Rare H (None) /hpf Urine Yeast (Budding) Many H (None) /hpf 03/08/22 03/08/22 03/08/22 Range/Units 05:31 05:31 06:46 WBC 14.2 H (3.8-10.6) k/uL RBC 3.41 L (4.30-5.90) m/uL Hgb 9.7 L (13.0-17.5) gm/dL Hct 28.5 L (39.0-53.0) % Neutrophils # 11.6 H (1.3-7.7) k/uL Sodium 129 L (137-145) mmol/L Chloride 94 L (98-107) mmol/L BUN 7 L (9-20) mg/dL Creatinine 0.42 L (0.66-1.25) mg/dL POC Glucose (mg/dL) 134 H (70-110) mg/dL Calcium 7.1 L (8.4-10.2) mg/dL Urine Glucose (UA) (Negative) Urine Blood (Negative) Ur Leukocyte Esterase (Negative) Urine RBC (0-5) /hpf Urine WBC (0-5) /hpf Urine Bacteria (None) /hpf Urine Mucus (None) /hpf Urine Yeast (Budding) (None) /hpf 03/08/22 Range/Units 11:39 WBC (3.8-10.6) k/uL RBC (4.30-5.90) m/uL Hgb (13.0-17.5) gm/dL Hct (39.0-53.0) % Neutrophils # (1.3-7.7) k/uL Sodium (137-145) mmol/L Chloride (98-107) mmol/L BUN (9-20) mg/dL Creatinine (0.66-1.25) mg/dL POC Glucose (mg/dL) 331 H (70-110) mg/dL Calcium (8.4-10.2) mg/dL Urine Glucose (UA) (Negative) Urine Blood (Negative) Ur Leukocyte Esterase (Negative) Urine RBC (0-5) /hpf Urine WBC (0-5) /hpf Urine Bacteria (None) /hpf Urine Mucus (None) /hpf Urine Yeast (Budding) (None) /hpf Microbiology - Last 24 Hours (Table) 03/07/22 16:30 Urine Culture - Preliminary Urine,Voided Assessment and Plan Assessment: * Altered mental status, likely due to toxic metabolic encephalopathy, improved. * Bilateral lower extremity weakness, unclear etiology. MRI revealed multilevel spinal stenosis, at least moderate to severe in degree. Rule out superimposed critical illness myopathy vs polyradiculopathy from his uncontrolled diabetes. * Acute diabetic ketoacidosis * Poorly controlled diabetes * Metabolic acidosis * New onset atrial fibrillation * Urinary tract infection with Enterobacter Clocae, on ceftriaxone. * Tobacco use * History of ADHD Plan: * MRI of the lumbar and thoracic spine reported as multilevel lumbar spurring and disc bulging with multilevel mild spinal stenosis. Mild wedging of L1 and L2 appears old. No acute abnormality of the thoracic spine. No compression fracture. No thoracic spinal stenosis. I personally reviewed MRI of the lumbar and thoracic spine myself. There is multilevel spinal stenosis at L3- L4, L4-L5, and lesser degree at L2-L3 and L5-S1 levels. The most significant is at L4-L5 level, which appears moderate to severe on my review. * Orthopedic spine surgery input appreciated. No surgery planned in the near future. * Ordered CK level and is normal (70). TSH is normal. * Recommend EMG nerve conductions of lower extremity as an outpatient. * Optimize control of diabetes. * Recommended tobacco cessation. * Will defer the rest of medical management to the primary team. * PT and OT are consulted. The plan is discussed with patient and his nurse. Will follow-up with patient sporadically. Time with Patient: Less than 30
[2022-03-08 16:51] LABS: Glucose,Whole Blood 231 mg/dL (70-110)
--- NOTE | 2022-03-08 17:07 | P.PN ---
Subjective Progress Note Date: 03/08/22 This is a 62-year-old patient, follows with Dr. Mendez. Chronic stable medical conditions include ADHD, herniated disc lower back, smoker. Patient's son at the bedside. Patient yesterday took his medication was going to the bathroom and the son noticed that he was feeling looking weak. He became less responsive. Never passed out. Shaky. No fever or chills reported. EMS was called out. Patient is found to be in atrial fibrillation with rapid ventricular rate. In the ER started on IV heparin, given adenosine, later put on IV Cardizem. Also found to be in DKA. Put on insulin drip. Potassium was very low NG tube had to be pacemaker placement. Tired. Most of the history of pain medicine at the bedside. Patient rather tired and lethargic. Admitted with new onset of atrial fibrillation uncontrolled, diabetic ketoacidosis, acute metabolic encephalopathy, severe hypokalemia. Started on Cardizem drip, IV heparin, insulin drip. NG tube was placed for potassium replacement. March 03: ICU: Patient went back into sinus rhythm. Did have 3-4 minutes burst of A. fib with rapid ventricular rate and rhythm back in sinus rhythm. IV heparin is being changed over to subcu Lovenox 70 mg every 12. Insulin drip is discontinued. Put on Levemir 10 units. NG tube in place. Potassium being replaced. Still patient is rather lethargic. We'll get a computed tomography scan of the brain. And EEG. March 04: ICU: Remains in sinus rhythm. Has been off Cardizem drip. Slightly more awake but still lethargic. Attempted to answer questions. Potassium down to 2.7. Potassium being replaced. At magnesium. By mouth amiodarone. On IV ceftriaxone for possible UTI. Sinus rhythm. Stop Catapres increase Lopressor to 100 mg twice a day. Check ammonia level. Phosphorus being replaced. Consult neurology. CT brain negative for stroke. EEG results pending. March 05: ICU. Laying in bed. Weak. EEG showed encephalopathy. Weakness in all the limbs. Just ordered able to lift his arms. [place] to be from electrolyte abnormalities. Able to answer questions slowly. Did tolerate some ice chips. Nurse will try to feed the patient. Lethargic but more awake. PTOT consulted. Unstageable bluish decolorization of the sacrum and heels. NG tube discontinued. IV fluids. INVESTIGATIONS, reviewed in the clinical context: HbA1c: 12.9 Computed tomography scan brain: No acute processes reported March 04: WBC 16.6 hemoglobin 9.8 potassium 2.7 creatinine 0.42 phosphorus 1.6 March 03: Sodium 136 potassium 3 BUN 22 creatinine 0.50 albumin 2.2 WBC 36.7 hemoglobin 14.7 platelets 470 potassium 2.7 sodium 128 bicarb 9 BUN 25 crit 0.89 blood glucose 564 UA positive for ketone 4+, leukoesterase negative for nitrite Urine drug screen: Negative Serum acetone positive EKG tracing personally reviewed by me-heart rate 171, ST segment depression Chest x-ray film personally reviewed by me-prominent pulmonary artery. Elevated right diaphragm. 2-D echocardiogram: EF 55-60%. 03/06/2020: Patient remains in the ICU improving slowly and gradually. Still had fever yesterday of 100.7, no more fever today. Other vitals are stable. Patient remains on ceftriaxone and he is been treated for UTI with Enterobacter. He still has fever as of yesterday therefore we will check renal ultrasound. Corcalcitonin 1.03, His altered mentation most likely is secondary to metabolic/toxic encephalopathy and UTI, neurologist on the case and he ordered MRI of the thoracolumbar spine to rule out spinal stenosis, results showing multilevel lumbar spinal stenosis but is mild and there is no spinal stenosis of the thoracic spine. Cardiology the case for new-onset A. fib, currently on Lovenox and amiodarone and rate controlled. Distal on IV fluids under lactate 125 Ulcers on Protonix 40 mg oral twice a day and Lovenox 70 mg twice daily. Glucose controlled on Levemir 14 units. His hemoglobin A1c is 12.9% and his DKA on admission resolved 03/07/2022 Patient still feels generally weak and lethargic. However he has good appetite. He denies chest pain or abdominal pain. No dyspnea. He looks comfortable in bed. He had 1 small bowel movement, no diarrhea. Zee catheter in place with yellow urine. Patient procalcitonin significantly improved down to 0.15, however his culture showed Enterobacter resistant to ceftriaxone. Patient currently on oral Levaquin. We going to consult infectious disease team. WBC is 11.3. Sodium 129. Patient fever on admission has subsided since then. Neurologist on the case and recommended EMG and nerve conduction study as an outpatient. Patient currently on Lovenox 70 mg twice a day, Levemir insulin 14 units and amiodarone. Also he is on oral Protonix twice daily and IV fluids under lactate at 125 Patient tolerates some diet, lower rate elected down to 75 mL/h renal ultrasound order, follow-up results 03/08/2022 Patient is seen and evaluated in follow-up this morning with multiple medical consultations including neurology, pulmonary, infectious disease, orthopedics following. Plan is for possible lumbar decompression sometime this week. Have consulted general surgery as per nursing report patient had a large dark tarry stool this morning. Hemoglobin is stable at 9.7. Patient's sodium is 129 with a potassium of 3.7 current creatinine is stable at 0.42. Blood sugars have been elevated and will continue current regimen. WBC remains elevated and patient is maintained on cefepime and will continue. Oral intake continues to be fair to poor and patient continues to report back pain. Patient has been febrile. Patient denies chest pain or shortness of breath. Patient is extremely lethargic with generalized edema noted throughout. Will consult nephrology for hyponatremia Physical exam: GENERAL: The patient is alert and oriented x2-3, lethargic although arousable. Well developed, well nourished. Generally weak HEENT: Pupils are round and equally reacting to light. EOMI. No scleral icterus. No conjunctival pallor. Normocephalic, atraumatic. No pharyngeal erythema. No thyromegaly. CARDIOVASCULAR: S1 and S2 present. No murmurs, rubs, or gallops. PULMONARY: Chest is clear to auscultation, no wheezing or crackles. ABDOMEN: Soft, nontender, nondistended, normoactive bowel sounds. No palpable organomegaly. MUSCULOSKELETAL: No joint swelling or deformity. EXTREMITIES: No cyanosis, clubbing, or pedal edema. NEUROLOGICAL: Gross neurological examination did not reveal any focal deficits. SKIN: No rashes. no petechiae. Assessment: Diabetic ketoacidosis present on admission resolved diabetes mellitus uncontrolled with hyperglycemia Hyponatremia secondary to poor oral intake Acute urinary tract infection secondary to Enterobacter Metabolic encephalopathy, improving New-onset A. fib with RVR Dehydration and hypovolemia improving Generalized weakness, lumbar spine showing only mild spinal stenosis GI prophylaxis DVT prophylaxis Full code Plan: Continue with Ringer lactate gentle hydration Patient currently on Levaquin, and infectious disease has been consulted Per nursing staff large dark tarry stool noted in will change Protonix to IV and twice daily, Gen. surgery consulted Lovenox has been placed on questionable lumbar decompression surgery with orthopedics following Continue with amiodarone per Vegetable Sorter Recommend continue monitoring Accu-Cheks before meals and at bedtime and treat accordingly with current regimen Pulmonary, orthopedics, infectious disease, cardiology and neurology service on the case Due to multiple convex medical issues, prognosis is guarded. Recommend repeat labs in a.m. and will await nephrology consultation The impression and plan of care has been dictated by Kaykay Polk, nurse practitioner as directed. Dr. Gila MD I have performed a history and examination and MDM of this patient, discussed the same with the dictator, and agree with the dictator's assessment and plan as written ,documented as a scribe. Based on total visit time, I have performed more than 50% of the visit. Any additional findings or plans will be noted. Objective - Vital Signs Vital signs: Vital Signs Temp 99.5 F 03/08/22 07:35 Pulse 88 03/08/22 07:35 Resp 17 03/08/22 07:35 BP 146/78 03/08/22 07:35 Pulse Ox 97 03/08/22 07:35 FiO2 21 03/04/22 07:22 Intake & Output 03/07/22 03/08/22 03/08/22 18:59 06:59 18:59 Intake Total 100 650 Output Total 925 2300 Balance -825 1650 Intake: Intake, IV Titration 100 Amount Cefepime 2 gm In Sodium 100 Chloride 0.9% 100 ml @ 25 mls/hr IVPB Q8HR [facility] Rx# :[id number] Oral 650 Output: Urine 925 2300 Other: Voiding Method Indwelling Catheter Indwelling Catheter Indwelling Catheter # Bowel Movements 1 - Labs CBC & Chem 7: 03/08/22 05:31 03/08/22 05:31 Labs: Abnormal Lab Results - Last 24 Hours (Table) 03/07/22 03/07/22 03/07/22 Range/Units 07:07 11:44 16:30 WBC (3.8-10.6) k/uL RBC (4.30-5.90) m/uL Hgb (13.0-17.5) gm/dL Hct (39.0-53.0) % Neutrophils # (1.3-7.7) k/uL Sodium (137-145) mmol/L Chloride (98-107) mmol/L BUN (9-20) mg/dL Creatinine (0.66-1.25) mg/dL POC Glucose (mg/dL) 227 H (70-110) mg/dL Calcium (8.4-10.2) mg/dL Procalcitonin 0.15 H (0.02-0.09) ng/mL Urine Glucose (UA) 4+ H (Negative) Urine Blood Trace H (Negative) Ur Leukocyte Esterase Large H (Negative) Urine RBC 57 H (0-5) /hpf Urine WBC >182 H (0-5) /hpf Urine Bacteria Rare H (None) /hpf Urine Mucus Rare H (None) /hpf Urine Yeast (Budding) Many H (None) /hpf 03/07/22 03/08/22 03/08/22 Range/Units 18:28 00:29 05:31 WBC 14.2 H (3.8-10.6) k/uL RBC 3.41 L (4.30-5.90) m/uL Hgb 9.7 L (13.0-17.5) gm/dL Hct 28.5 L (39.0-53.0) % Neutrophils # 11.6 H (1.3-7.7) k/uL Sodium (137-145) mmol/L Chloride (98-107) mmol/L BUN (9-20) mg/dL Creatinine (0.66-1.25) mg/dL POC Glucose (mg/dL) 338 H 272 H (70-110) mg/dL Calcium (8.4-10.2) mg/dL Procalcitonin (0.02-0.09) ng/mL Urine Glucose (UA) (Negative) Urine Blood (Negative) Ur Leukocyte Esterase (Negative) Urine RBC (0-5) /hpf Urine WBC (0-5) /hpf Urine Bacteria (None) /hpf Urine Mucus (None) /hpf Urine Yeast (Budding) (None) /hpf 03/08/22 03/08/22 Range/Units 05:31 06:46 WBC (3.8-10.6) k/uL RBC (4.30-5.90) m/uL Hgb (13.0-17.5) gm/dL Hct (39.0-53.0) % Neutrophils # (1.3-7.7) k/uL Sodium 129 L (137-145) mmol/L Chloride 94 L (98-107) mmol/L BUN 7 L (9-20) mg/dL Creatinine 0.42 L (0.66-1.25) mg/dL POC Glucose (mg/dL) 134 H (70-110) mg/dL Calcium 7.1 L (8.4-10.2) mg/dL Procalcitonin (0.02-0.09) ng/mL Urine Glucose (UA) (Negative) Urine Blood (Negative) Ur Leukocyte Esterase (Negative) Urine RBC (0-5) /hpf Urine WBC (0-5) /hpf Urine Bacteria (None) /hpf Urine Mucus (None) /hpf Urine Yeast (Budding) (None) /hpf Microbiology - Last 24 Hours (Table) 03/07/22 16:30 Urine Culture - Preliminary Urine,Voided
[2022-03-08] MEDS: PANTOPRAZOLE 40 MG/10 ML VIAL IVP SCH (22:32)
[2022-03-08 23:59] LABS: Glucose,Whole Blood 203 mg/dL (70-110)
[2022-03-09] MEDS: INSULIN ASPART (NovoLOG) 100 UNIT/ML VIAL SQ SCH ×5 (00:12→21:48)
[2022-03-09] MEDS: CEFEPIME 2 GM in SODIUM CHLORIDE 0.9% 100 ML IVPB SCH ×4 (00:12→23:48)
[2022-03-09] MEDS: traMADol 50 MG TAB PO PRN ×3 (01:25→21:57)
[2022-03-09 06:03] LABS: Glucose,Whole Blood 199 mg/dL (70-110)
[2022-03-09 06:10] LABS: African American GFR (CKD) >90 (>60 ml/min/1.73 sqM); Anion Gap 3 mmol/L; Blood Urea Nitrogen 10 mg/dL (9-20); Calcium 7.1 mg/dL (8.4-10.2); Carbon Dioxide 33 mmol/L (22-30); Chloride 93 mmol/L (98-107); Glucose 113 mg/dL (74-99); Non-African American GFR(CKD) >90 (>60 ml/min/1.73 sqM); Potassium 4.3 mmol/L (3.5-5.1); Sodium 129 mmol/L (137-145)
[2022-03-09] MEDS: INSULIN DETEMIR (LEVEMIR) 100 UNIT/ML SYR SQ SCH (06:21)
[2022-03-09] MEDS: LACTATED RINGERS 1,000 ML IV SCH (06:22)
--- NOTE | 2022-03-09 07:03 | P.PN ---
Progress Note - Text Progress Note Date: 03/09/22 Decompression planned for tomorrow 03/10/22. Severe stenosis L2-S1 worst at L3- 4 and L4-5. Will attempt just decompression and not fusion but if needed will fuse. NPO@MA Hold lovenox for OR tomorrow afternoon case around 2pm Cont with medical management and optimization Discuss risks with pt Cont abx
--- NOTE | 2022-03-09 08:31 | P.PN ---
Subjective Progress Note Date: 03/09/22 Principal diagnosis: Bilateral lower extremity weakness Patient seen and examined at bedside. Patient is resting semi-recumbent in hospital bed with PRAFO boots present on bilateral feet. Patient denies any changes to his bilateral lower extremities. Patient is currently NPO d/t possible GI bleed. Patient reports nausea at this time, denies vomiting. Patient states that his pain is managed on current regimen. Surgical intervention scheduled for Tuesday pending medical clearance. Encouraged use of incentive spirometer. Araujo Catheter present and patent. Patient currently denies any fever/chills, shortness of breath, or chest pain. Objective - Vital Signs Vital signs: Vital Signs Temp 98.2 F 03/09/22 01:01 Pulse 75 03/09/22 01:01 Resp 18 03/09/22 01:01 BP 134/79 03/09/22 01:01 Pulse Ox 99 03/09/22 01:01 FiO2 21 03/04/22 07:22 Intake & Output 03/08/22 03/09/22 03/09/22 18:59 06:59 18:59 Intake Total 900 Output Total 710 2640 Balance 190 -2640 Intake: IV 900 Lactated Ringers 1,000 ml 900 @ 75 mls/hr IV .[id number] [facility] Rx#:[id number] Output: Urine 710 2640 Uretheral (Araujo) 710 Other: Voiding Method Indwelling Catheter Indwelling Catheter # Bowel Movements 1 - Exam Physical Examination General: The patient is awake and alert, in no acute distress Skin: Skin is warm and dry with no obvious rashes or lesions. Hairy patches absent, no dorsal skin dimples, no cafe au lait spots, and no surgical incis ions. Prafo boots present bilaterally. Eye: Pupils are equal, round and reactive to light, extra-ocular movements are intact; there is normal conjunctiva bilaterally. Neck: The neck is supple, there is no tenderness and ROM intact. Cardiovascular: There is a regular rate and rhythm. No murmur, rub or gallop is appreciated. Respiratory: Lungs are clear to auscultation, respirations are non-labored, breath sounds are equal. Gastrointestinal: Soft, non-distended, non-tender abdomen . Back: There is slight tenderness to palpation in the paralumbar region. There is no obvious deformity . Musculoskeletal: ROM limited secondary to pain. Shoulder abduction 5/5, elbow flexors 5/5, wrist dorsiflexors 5/5. finger abductor 5/5, hospice rn 5/5, hip flexor 2/5, knee flexor 2/5, ankle dorsiflexor 2/5, ankle plantarflexion 2/5 and extensor hallucis 2/5. Neurological: CN 2-12 intact. There are no obvious motor or sensory deficits. Movement and coordination equal and intact. Sensory exam to light touch intact C5-T1 and intact from L2-S1. Reflexes 2/4 in bilateral upper and lower extremities. Negative Hoffmans, babinski, and clonus signs. Psychiatric: Cooperative, appropriate mood & affect, normal judgment. - Labs CBC & Chem 7: 03/08/22 05:31 03/09/22 05:45 Labs: Abnormal Lab Results - Last 24 Hours (Table) 03/08/22 03/08/22 03/08/22 Range/Units 11:39 16:50 23:58 Sodium (137-145) mmol/L Chloride (98-107) mmol/L Carbon Dioxide (22-30) mmol/L Creatinine (0.66-1.25) mg/dL Glucose (74-99) mg/dL POC Glucose (mg/dL) 331 H 231 H 203 H (70-110) mg/dL Calcium (8.4-10.2) mg/dL 03/09/22 03/09/22 Range/Units 05:45 06:01 Sodium 129 L (137-145) mmol/L Chloride 93 L (98-107) mmol/L Carbon Dioxide 33 H (22-30) mmol/L Creatinine 0.52 L (0.66-1.25) mg/dL Glucose 113 H (74-99) mg/dL POC Glucose (mg/dL) 199 H (70-110) mg/dL Calcium 7.1 L (8.4-10.2) mg/dL Microbiology - Last 24 Hours (Table) 03/07/22 16:30 Urine Culture - Final Urine,Voided Betty albicans Assessment and Plan Assessment: Degenerative disc disease Central spinal cord stenosis at L2-L5 Bilateral lower extremity weakness Plan: Plan: Keep patient NPO per GI. Plan for surgical intervention on Tuesday03/10/22 for L2-S1 laminectomy with decompression and possible fusion pending medical clearance. Appreciate medical, pulmonology, cardiology/vascular management Pain management - Tylenol; tramadol GI prophylaxis - Maalox; protonix - Maintain araujo catheter PT/OT - weightbearing as tolerated with walker, maintain PRAFO boots when in bed. *I reviewed and discussed this case with my attending Dr. Newton, whom has reviewed this chart and films and is in agreement with assessment and plan of care as outlined above. I have personally seen and examined the patient, performed the documentation and the assessment and plan as written. Number of minutes spent on the visit: 20m.
[2022-03-09] MEDS: AMIODARONE 200 MG TAB PO SCH ×2 (08:43→21:48)
[2022-03-09] MEDS: MAGNESIUM OXIDE 400 MG TAB PO SCH ×3 (08:43→21:48)
[2022-03-09] MEDS: FOLIC ACID 1 MG TAB PO SCH (08:43)
[2022-03-09] MEDS: SODIUM BICARBONATE TAB 650 MG TAB PO SCH (08:43)
[2022-03-09] MEDS: NICOTINE 21MG/24HR PATCH TRANSDERM SCH (08:44)
[2022-03-09] MEDS: PANTOPRAZOLE 40 MG/10 ML VIAL IVP SCH ×2 (08:44→22:32)
[2022-03-09] MEDS: METOPROLOL TARTRATE 50 MG TAB PO SCH ×2 (08:44→21:48)
[2022-03-09 08:51] LABS: HCT 29.4 % (39.0-53.0); HGB 9.3 gm/dL (13.0-17.5); Hypochromasia Slight; MCH 27.6 pg (25.0-35.0); MCHC 31.8 g/dL (31.0-37.0); MCV 86.9 fL (80.0-100.0); Mean Platelet Volume 8.9; Platelet Count 453 k/uL (150-450); RBC 3.38 m/uL (4.30-5.90); WBC 12.8 k/uL (3.8-10.6)
--- NOTE | 2022-03-09 10:17 | P.GSCN ---
History of Present Illness Consult date: 03/09/22 History of present illness: CHIEF COMPLAINT: Bilateral leg weakness Reason for consult: Large dark tarry stool HISTORY OF PRESENT ILLNESS: This is a 62-year-old male who presented with bilateral leg weakness and evidence of degenerative disc disease and central cord stenosis at L2 to L5. He scheduled for laminectomy with decompression and possible fusion with spinal surgery service tomorrow. Patient also had A. fib RVR, DKA, UTI and metabolic encephalopathy during his admission. Yesterday patient developed a large black tarry stool. His anticoagulation was di scontinued. Patient denies any vomiting. Denies any prior history of peptic ulcer disease. He does not remember having a black stool. On this as reported per nursing staff. He did have a hemoglobin of 8.3 yesterday was up to 9.7. He's never had EGD or colonoscopy in the past. He doesn't to some nausea and pain in the umbilicus area. Patient has been having intermittent fevers. PAST MEDICAL HISTORY: Diabetes mellitus PAST SURGICAL HISTORY: See list. MEDICATIONS: See list. ALLERGIES: See list. SOCIAL HISTORY: No illicit drug use. Nicotine dependence REVIEW OF SYSTEMS: CONSTITUTIONAL: Denies fever or chills. HEENT: Denies blurred vision, vision changes, or eye pain. Denies hemoptysis CARDIOVASCULAR: Denies chest pain or pressure. RESPIRATORY: No shortness of breath. GASTROINTESTINAL: See HPI for pertinent findings HEMATOLOGIC: Denies bleeding disorders. GENITOURINARY: Denies any blood in urine or increased urinary frequency. SKIN: Denies pruitis. Denies rash. PHYSICAL EXAM: VITAL SIGNS: Reviewed GENERAL: Well-developed in no acute distress. HEENT: No sclera icterus. Extraocular movements grossly intact. Moist buccal mucosa. Head is atraumatic, normocephalic. No nasal drainage. ABDOMEN: Soft. Nondistended. Tenderness to palpation of the umbilicus and lower abdomen NEUROLOGIC: Patient is awake. Slightly confused. He is able to answer some questions. LABORATORY DATA: WBC is 12.8 hemoglobin 8.3 up to 9.7. Today 9.3 platelets 453 Sodium 129 potassium is 4.3 BUN 10 creatinine 0.52 Glucose 113 Magnesium 2.2 IMAGING: ASSESSMENT: 1. Anemia with black tarry stool 2. Possible upper GI bleed PLAN: -Patient scheduled for EGD today with Dr. al -Keep patient nothing by mouth -Continue IV Protonix -Continue to hold anticoagulation -Continue monitor hemoglobin -Continue monitor for any signs or symptoms of bleeding -Continue supportive care Physician Building Mover note has been reviewed by physician. Signing provider agrees with the documented findings, assessment, and plan of care. Past Medical History Past Medical History: Diabetes Mellitus History of Any Multi-Drug Resistant Organisms: None Reported Past Surgical History: Orthopedic Surgery Additional Past Surgical History / Comment(s): back pain son states pt recently "slipped a disc" taking gabapentin. Past Psychological History: No Psychological Hx Reported Smoking Status: Current every day smoker Past Alcohol Use History: Rare Past Drug Use History: None Reported Medications and Allergies Home Medications Medication Instructions Recorded Confirmed Type Dextroamphetamine/Amphetamine 30 mg PO BID 03/01/22 03/01/22 History [Dextroamphetamine/Amphetamine 30 mg Tab] sitaGLIPtin [Januvia] 100 mg PO DAILY 03/02/22 03/02/22 History Allergies Allergy/AdvReac Type Severity Reaction Status Date / Time No Known Allergies Allergy Verified 03/01/22 22:26 Surgical - Exam Vital Signs Temp Pulse Resp BP Pulse Ox 97.9 F 170 H 18 146/89 98 03/01/22 20:11 03/01/22 20:11 03/01/22 20:11 03/01/22 20:11 03/01/22 20:11 Results - Labs 03/09/22 05:45 03/09/22 05:45 Abnormal Lab Results - Last 24 Hours (Table) 03/08/22 03/08/22 03/08/22 Range/Units 11:39 16:50 23:58 WBC (3.8-10.6) k/uL RBC (4.30-5.90) m/uL Hgb (13.0-17.5) gm/dL Hct (39.0-53.0) % Plt Count (150-450) k/uL Sodium (137-145) mmol/L Chloride (98-107) mmol/L Carbon Dioxide (22-30) mmol/L Creatinine (0.66-1.25) mg/dL Glucose (74-99) mg/dL POC Glucose (mg/dL) 331 H 231 H 203 H (70-110) mg/dL Calcium (8.4-10.2) mg/dL 03/09/22 03/09/2203/09/22 Range/Units 05:45 05:45 06:01 WBC 12.8 H (3.8-10.6) k/uL RBC 3.38 L (4.30-5.90) m/uL Hgb 9.3 L (13.0-17.5) gm/dL Hct 29.4 L (39.0-53.0) % Plt Count 453 H (150-450) k/uL Sodium 129 L (137-145) mmol/L Chloride 93 L (98-107) mmol/L Carbon Dioxide 33 H (22-30) mmol/L Creatinine 0.52 L (0.66-1.25) mg/dL Glucose 113 H (74-99) mg/dL POC Glucose (mg/dL) 199 H (70-110) mg/dL Calcium 7.1 L (8.4-10.2) mg/dL Microbiology - Last 24 Hours (Table) 03/07/22 16:30 Urine Culture - Final Urine,Voided Betty albicans Diabetes panel 03/09/22 Range/Units 05:45 Sodium 129 L (137-145) mmol/L Potassium 4.3 (3.5-5.1) mmol/L Chloride 93 L (98-107) mmol/L Carbon Dioxide 33 H (22-30) mmol/L BUN 10 (9-20) mg/dL Creatinine 0.52 L (0.66-1.25) mg/dL Glucose 113 H (74-99) mg/dL Calcium 7.1 L (8.4-10.2) mg/dL Calcium panel 03/09/22 Range/Units 05:45 Calcium 7.1 L (8.4-10.2) mg/dL Pituitary panel 03/09/22 Range/Units 05:45 Sodium 129 L (137-145) mmol/L Potassium 4.3 (3.5-5.1) mmol/L Chloride 93 L (98-107) mmol/L Carbon Dioxide 33 H (22-30) mmol/L BUN 10 (9-20) mg/dL Creatinine 0.52 L (0.66-1.25) mg/dL Glucose 113 H (74-99) mg/dL Calcium 7.1 L (8.4-10.2) mg/dL Adrenal panel 03/09/22 Range/Units 05:45 Sodium 129 L (137-145) mmol/L Potassium 4.3 (3.5-5.1) mmol/L Chloride 93 L (98-107) mmol/L Carbon Dioxide 33 H (22-30) mmol/L BUN 10 (9-20) mg/dL Creatinine 0.52 L (0.66-1.25) mg/dL Glucose 113 H (74-99) mg/dL Calcium 7.1 L (8.4-10.2) mg/dL
--- NOTE | 2022-03-09 10:30 | P.PN ---
Subjective Progress Note Date: 03/08/22 Principal diagnosis: Enterobacter catheter associated UTI Patient is a 62 year old male with initial presentation hospital 10 07/30/2003 palpitation and shortness of breath patient did have a low-grade fever and a positive urine culture with Enterobacter. On today's evaluation that is 03/08/2022, the beta spike a fever of 101.2F after midnight, the patient is afebrile since then the patient is breathing comfortably at home. Denies having any chest pain or shortness of breath or cough no abdominal pain no diarrhea Objective - Vital Signs Vital signs: Vital Signs Temp 99.5 F 03/08/22 07:35 Pulse 88 03/08/22 07:35 Resp 17 03/08/22 07:35 BP 146/78 03/08/22 07:35 Pulse Ox 97 03/08/22 07:35 FiO2 21 03/04/22 07:22 Intake & Output 03/07/22 03/08/22 03/08/22 18:59 06:59 18:59 Intake Total 100 650 Output Total 925 2300 Balance -825 1650 Intake: Intake, IV Titration 100 Amount Cefepime 2 gm In Sodium 100 Chloride 0.9% 100 ml @ 25 mls/hr IVPB Q8HR [facility] Rx# :[id number] Oral 650 Output: Urine 925 2300 Other: Voiding Method Indwelling Catheter Indwelling Catheter Indwelling Catheter # Bowel Movements 1 - Exam GENERAL DESCRIPTION: A middle-aged male lying in bed in no distress RESPIRATORY SYSTEM: Unlabored breathing , decreased breath sounds at bases HEART: S1 S2 regular rate and rhythm , ABDOMEN: Soft , no tenderness EXTREMITIES: No edema feet - Labs CBC & Chem 7: 03/09/22 05:45 03/09/22 05:45 Labs: Abnormal Lab Results - Last 24 Hours (Table) 03/07/22 03/07/22 03/08/22 Range/Units 16:30 18:28 00:29 WBC (3.8-10.6) k/uL RBC (4.30-5.90) m/uL Hgb (13.0-17.5) gm/dL Hct (39.0-53.0) % Neutrophils # (1.3-7.7) k/uL Sodium (137-145) mmol/L Chloride (98-107) mmol/L BUN (9-20) mg/dL Creatinine (0.66-1.25) mg/dL POC Glucose (mg/dL) 338 H 272 H (70-110) mg/dL Calcium (8.4-10.2) mg/dL Urine Glucose (UA) 4+ H (Negative) Urine Blood Trace H (Negative) Ur Leukocyte Esterase Large H (Negative) Urine RBC 57 H (0-5) /hpf Urine WBC >182 H (0-5) /hpf Urine Bacteria Rare H (None) /hpf Urine Mucus Rare H (None) /hpf Urine Yeast (Budding) Many H (None) /hpf 03/08/22 03/08/22 03/08/22 Range/Units 05:31 05:31 06:46 WBC 14.2 H (3.8-10.6) k/uL RBC 3.41 L (4.30-5.90) m/uL Hgb 9.7 L (13.0-17.5) gm/dL Hct 28.5 L (39.0-53.0) % Neutrophils # 11.6 H (1.3-7.7) k/uL Sodium 129 L (137-145) mmol/L Chloride 94 L (98-107) mmol/L BUN 7 L (9-20) mg/dL Creatinine 0.42 L (0.66-1.25) mg/dL POC Glucose (mg/dL) 134 H (70-110) mg/dL Calcium 7.1 L (8.4-10.2) mg/dL Urine Glucose (UA) (Negative) Urine Blood (Negative) Ur Leukocyte Esterase (Negative) Urine RBC (0-5) /hpf Urine WBC (0-5) /hpf Urine Bacteria (None) /hpf Urine Mucus (None) /hpf Urine Yeast (Budding) (None) /hpf 03/08/22 Range/Units 11:39 WBC (3.8-10.6) k/uL RBC (4.30-5.90) m/uL Hgb (13.0-17.5) gm/dL Hct (39.0-53.0) % Neutrophils # (1.3-7.7) k/uL Sodium (137-145) mmol/L Chloride (98-107) mmol/L BUN (9-20) mg/dL Creatinine (0.66-1.25) mg/dL POC Glucose (mg/dL) 331 H (70-110) mg/dL Calcium (8.4-10.2) mg/dL Urine Glucose (UA) (Negative) Urine Blood (Negative) Ur Leukocyte Esterase (Negative) Urine RBC (0-5) /hpf Urine WBC (0-5) /hpf Urine Bacteria (None) /hpf Urine Mucus (None) /hpf Urine Yeast (Budding) (None) /hpf Microbiology - Last 24 Hours (Table) 03/07/22 16:30 Urine Culture - Preliminary Urine,Voided Assessment and Plan (1) Catheter-associated urinary tract infection Current Visit: Yes Status: Acute Code(s): T83.511A - I/I REACT D/T INDWELLING URETHRAL CATHETER, INIT; N39.0 - URINARY TRACT INFECTION, SITE NOT SPECIFIED SNOMED Code(s): 402067929 Plan: 1patient with a low-grade fever positive UA and urinary symptoms retention requiring Zee catheter placement concerning for a symptomatic UTI urine has been finalized with Enterobacter and this patient is currently on amiodarone using quinolones can lead to QT prolongation 2patient to continue with cefepime 2 g every 8 hours while waiting for repeat culture to finalize Time with Patient: Less than 30
--- NOTE | 2022-03-09 11:09 | P.NPCON ---
History of Present Illness - Reason for Consult hyponatremia - History of Present Illness Reason for consultation: Hyponatremia History of present illness: Patient is a 62-year-old male seen in renal consultation for hyponatremia. Patient's sodium level on admission on 03/01/2022 was 128 and subsequently improved to 137 on 03/03/2022. It has been gradually decreasing in the last 3 days it has been stable at 129. Patient presented to the hospital on 03/01/2022 with shortness of breath and palpitations. He was noted to be in DKA. He went into SVT and subsequently A. fib and was converted to sinus rhythm on amiodarone. Echocardiogram showed preserved ejection fraction. He is being followed by cardiology. Patient is noted to have central spinal cord stenosis at L2 to L5 and is scheduled for surgery tomorrow. Patient had episode of black bowel movement yesterday and is scheduled for endoscopy today. Hemoglobin 9.3 today. Patient denies history of malignancy. He is not any thiazide diuretics. He has been receiving IV fluids and is currently on LR at 75 mL an hour. Patient is quite edematous. He has a Zee catheter and is nonoliguric. Renal ultrasound showed normal-sized kidneys without any hydronephrosis. There was a 3 x 2.5 cm hypoechoic area suggestive of possible adrenal mass. Patient denies history of hypertension. He does have history of diabetes. Patient states his father had stroke at an older age. Denies chest pain or shortness of breath. Vital signs are stable. General: Awake. No acute distress. HEENT: Head exam is unremarkable. LUNGS: Breath sounds decreased. HEART: Rate and Rhythm are regular. ABDOMEN: Soft, no distention. EXTREMITITES: 2+ edema. Past Medical History Past Medical History: Diabetes Mellitus History of Any Multi-Drug Resistant Organisms: None Reported Past Surgical History: Orthopedic Surgery Additional Past Surgical History / Comment(s): back pain son states pt recently "slipped a disc" taking gabapentin. Past Psychological History: No Psychological Hx Reported Smoking Status: Current every day smoker Past Alcohol Use History: Rare Past Drug Use History: None Reported Medications and Allergies Home Medications Medication Instructions Recorded Confirmed Type Dextroamphetamine/Amphetamine 30 mg PO BID 03/01/22 03/01/22 History [Dextroamphetamine/Amphetamine 30 mg Tab] sitaGLIPtin [Januvia] 100 mg PO DAILY 03/02/22 03/02/22 History Allergies Allergy/AdvReac Type Severity Reaction Status Date / Time No Known Allergies Allergy Verified 03/01/22 22:26 Physical Exam Vitals: Vital Signs Temp Pulse Resp BP Pulse Ox 03/09/22 10:31 99.0 F 81 16 134/78 97 03/09/22 08:00 99.0 F 81 16 134/78 97 03/09/22 01:01 98.2 F 75 18 134/79 99 03/08/22 20:00 99.2 F 75 16 134/76 99 03/08/22 17:02 98.4 F 03/08/22 14:00 100.4 F H 75 16 120/77 99 Intake and Output 03/08/22 03/09/22 03/09/22 22:59 06:59 14:59 Intake Total 900 Output Total 710 2640 Balance 190 -2640 Intake: IV 900 Lactated Ringers 1,000 ml 900 @ 75 mls/hr IV .[id number] [facility] Rx#:[id number] Output: Urine 710 2640 Uretheral (Zee) 710 Other: Voiding Method Indwelling Catheter Results - Lab Results Most recent lab results Calcium 7.1 mg/dL (8.4-10.2) L 03/09/22 05:45 Phosphorus 1.6 mg/dL (2.5-4.5) L 03/04/22 05:36 Magnesium 2.2 mg/dL (1.5-2.4) 03/09/22 05:45 03/09/22 05:45 03/09/22 05:45 Assessment and Plan Plan: Assessment: 1. Hyponatremia. Hypervolemic. 2. Possible adrenal mass. Doubt hyperaldosteronism state as patient has no history of hypertension and blood pressure is fairly stable this admission. P atient is not on any antihypertensives. 3. Metabolic alkalosis secondary to bicarb supplementation. 4. Central spinal cord stenosis. Scheduled for surgery tomorrow. 5. Anemia. Concern for GI bleed. Endoscopy today. Hemoglobin 9.3 today. 6. Diabetes mellitus. Plan: Hep-Lock IV fluids. Add IV Lasix 40 mg twice daily. 1200 mL fluid restriction. Check iron studies. Blood sugar control. Check CT of the abdomen and pelvis to further characterize the adrenal mass. Consult oncology. Check renin and aldosterone levels, plasma metanephrines and cortisol level. Thank you for the consultation. I will continue to follow the patient with you during his hospital stay.
[2022-03-09] MEDS: FUROSEMIDE 10 MG/ML 4 ML VIAL IV SCH ×2 (11:36→22:32)
[2022-03-09 11:37] LABS: Glucose,Whole Blood 72 mg/dL (70-110)
[2022-03-09] MEDS ORDERED: LIDOCAINE 2% INJ 20 MG/ML (2 ML VIAL) ONE (11:47)
[2022-03-09] MEDS ORDERED: IV FLUID CONTINUATION 900 ML IV ONE (11:47)
[2022-03-09] MEDS ORDERED: PROPOFOL 10 MG/ML 20 ML VIAL IV ONE (11:47)
--- NOTE | 2022-03-09 12:10 | P.OP ---
Date of Procedure: 03/09/22 Preoperative Diagnosis: GI bleed Postoperative Diagnosis: Mild antral gastritis Mild esophagitis No evidence of any upper GI bleed Procedure(s) Performed: EGD Anesthesia: MAC Surgeon: Neal Pabon Pathology: other Condition: stable Description of Procedure: Patient's placed on the endoscopy table in the lateral position. He received IV sedation. The gastroscope placed oropharynx passed in the esophagus into the. Scope was placed through the pylorus. The first and second portion duodenum appeared normal. There is no evidence of any blood in the duodenum. Scope was then brought back the antrum this. Mildly inflamed. A biopsies performed. Scope was then retroflexed and the remainder stomach appeared normal. The GE junction was at 47 is. The distal esophagus appeared minimally inflamed and another biopsy was performed. The proximal esophagus appeared normal. Scope withdrawn for patient. There is no evidence of any upper GI bleed to account for the patient's recent melanotic stool.
[2022-03-09] MEDS: IOPAMIDOL CONTRAST (ORAL USE) VIAL PO PRN ×2 (13:11→14:02)
--- NOTE | 2022-03-09 13:54 | P.PN ---
Subjective Progress Note Date: 03/09/22 On 03/09/2022, There is a case of new onset atrial fibrillation, DKA, in addition to a gram-negative UTI. The patient came initially to the intensive care unit because of palpitation and shortness of breath patient was stabilized. Furthermore, he was sent to the medical floor. He did have an episode of upper GI bleed and for that reason he was kept nothing by mouth overnight and the patient's was supposed to do today. In fact , the patient completed an EGD and he was found to have mild gastritis. Hemoglobin is stable and there is no other episode of GI bleeding. Hemoglobin is currently at 9.3. The patient has a that, 4.8 with a platelet count of 453. Sodium was at 129, bicarbonate of 33 with a BUN of 10 and a creatinine of 0.5. The patient has Enterobacter cultured in the urine and the patient is still receiving IV cefepime. His cardiac rhythm is sinus. He remains on amiodarone 200 mg orally and is on Lovenox was placed on hold suspecting GI bleeding. As such, the patient is not taking any form of anticoagulation for now. He does have preserved LV function and his ech ocardiogram showed no significant structural or valvular heart abnormalities. He remains on room air oxygen. He is tolerating his diet. No other significant events overnight. Still incontinent to urine and stool and the patient has a stage II coccyx ulcer and areas of deep tissue injury on his heels especially on the right foot. Objective - Vital Signs Vital signs: Vital Signs Temp 97.5 F L 03/09/22 12:30 Pulse 68 03/09/22 13:30 Resp 20 03/09/22 13:30 BP 97/60 03/09/22 12:30 Pulse Ox 97 03/09/22 12:30 FiO2 21 03/04/22 07:22 Intake & Output 03/08/22 03/09/22 03/09/22 18:59 06:59 18:59 Intake Total 900 Output Total 710 2640 1000 Balance 190 -2640 -1000 Intake: IV 900 Lactated Ringers 1,000 ml 900 @ 75 mls/hr IV .[id number] [facility] Rx#:[id number] Output: Urine 710 2640 1000 Uretheral (Zee) 710 Other: Voiding Method Indwelling Catheter Indwelling Catheter Indwelling Catheter # Bowel Movements 1 - Exam No acute distress, oriented 3. Currently on room air. Mental status is lethargic HEENT examination is grossly unremarkable. Neck supple. Full range of motion. No adenopathy thyromegaly or neck vein distention. Cardiovascular examination reveals regular rhythm rate. S1-S2 normal. No S3 or S4. No discernible murmur noted. Heart rate 85 bpm. Heart sounds are distant. Lungs reveal mostly clear breath sounds. Minimal scattered rhonchi. No wheezes or crackles. Room air saturation is 98%. Breath sounds are equal bilaterally. Abdomen soft bowel sounds are heard. No masses or tenderness. Extremities are intact. No cyanosis clubbing or edema. DTI to the heel on the right Skin is without rash or lesion. stage 2 wound on the coccyx Neurologic examination is brief but nonfocal. Profoundly weak - Labs CBC & Chem 7: 03/09/22 05:45 03/09/22 05:45 Labs: Abnormal Lab Results - Last 24 Hours (Table) 03/08/22 03/08/22 03/09/22 Range/Units 16:50 23:58 05:45 WBC (3.8-10.6) k/uL RBC (4.30-5.90) m/uL Hgb (13.0-17.5) gm/dL Hct (39.0-53.0) % Plt Count (150-450) k/uL Sodium 129 L (137-145) mmol/L Chloride 93 L (98-107) mmol/L Carbon Dioxide 33 H (22-30) mmol/L Creatinine 0.52 L (0.66-1.25) mg/dL Glucose 113 H (74-99) mg/dL POC Glucose (mg/dL) 231 H 203 H (70-110) mg/dL Calcium 7.1 L (8.4-10.2) mg/dL 03/09/22 03/09/22 Range/Units 05:45 06:01 WBC 12.8 H (3.8-10.6) k/uL RBC 3.38 L (4.30-5.90) m/uL Hgb 9.3 L (13.0-17.5) gm/dL Hct 29.4 L (39.0-53.0) % Plt Count 453 H (150-450) k/uL Sodium (137-145) mmol/L Chloride (98-107) mmol/L Carbon Dioxide (22-30) mmol/L Creatinine (0.66-1.25) mg/dL Glucose (74-99) mg/dL POC Glucose (mg/dL) 199 H (70-110) mg/dL Calcium (8.4-10.2) mg/dL Microbiology - Last 24 Hours (Table) 03/07/22 16:30 Urine Culture - Final Urine,Voided Betty albicans Assessment and Plan Plan: Acute diabetic ketoacidosis, recovered. Altered mental status, improved. Enterobacter cloacae urinary tract infection, on IV cefepime Leukocytosis, improved. Hypokalemia, improved. Anion gap metabolic acidosis secondary to above. New onset atrial fibrillation with rapid ventricular response, currently in sinus Poosible UGI , currently off anticoagulation, the patient was found to have some mild antral gastritis and esophagitis without evidence of any acute bleeding and EGD was completed today and hemoglobin remained stable. The patient will be restarted back on his diet. History of diabetes mellitus, on levemir Chronic and ongoing tobacco dependence. History of ADHD. Plan: This patient is extremely debilitated, lethargic and weak. He has developed stage II one on his coccyx for which a Opteform was applied The patient also has many boots to protect his heels as the patient has developed deep tissue injury to his feet bilaterally IV Lasix per nephrology Monitor hemoglobin No anticoagulants for now Cardiac rhythm is sinus Continue IV cefepime We'll continue to follow
[2022-03-09 14:52] LABS: % Iron Saturation 10.01 (15.00-50.00)
[2022-03-09 16:58] LABS: Glucose,Whole Blood 299 mg/dL (70-110)
--- NOTE | 2022-03-09 17:04 | CT ---
EXAMINATION TYPE: CT abdomen pelvis wo/w con DATE OF EXAM: 03/09/2022 COMPARISON: Lumbar spine CT 03/07/2022 HISTORY: 62-year-old male assess for adrenal mass. TECHNIQUE: Contiguous axial scanning of the abdomen and pelvis before and after administration of 100 ml Omnipaque 300 IV contrast. 1 minute postcontrast and 15 minute postcontrast scans are obtained f or characterization of adrenal lesions. Coronal and sagittal reconstructions performed. CT DLP: 1465.6 mGycm Automated exposure control for dose reduction was used. FINDINGS: Heart normal size without pericardial effusion. Tiny hiatal hernia. Some retained contrast within the distal esophagus. Small left and trace right effusions with some dependent atelectasis noted. Some underlying mild cent rilobular emphysema in the visualized lower lungs. Liver shows focal fat along the anterior falciform ligament. Portal venous system is patent. No bili edison ductal dilatation. There is trace perihepatic ascites. Mild ascites tracks down the paracolic gutters with moderate asci sarah collecting within the pelvis and presacral region. The gallbladder is hydropic and 5.5 cm wide. The underlying dependent gallstones, axial image 29. Left adrenal gland, left kidney, and pancreas show no gross abnormality. Few scattered calcified granulomas within the spleen. There is patchy hypoenhancement medial upper pole of the right kidney and anterior mid pole of the ri ght kidney, refer to series 301 image 33 and 38. Right adrenal mass measures 3.3 cm. Noncontrast attenuation of 12 HU. Portal venous enhancement of 6 0 Hounsfield units. Delayed enhancement of 19 Hounsfield units. Absolute washout 85%. Relative washout 68%. Generalized anasarca change. No dilated small bowel or free air. Oral contrast progressed to the hepatic flexure of the colon. Sca ttered mild to moderate stool. Prominent solid stool distends the rectum up to 6.7 cm wide. A Zee catheter is present. Bladder is incompletely collapsed. Moderate circumferential wall thicken ing is present. Generalized anasarca change greater in the lower abdomen and pelvis. No pelvic lympha denopathy seen. Bones: Scattered mild degenerative disc disease. Scattered facet arthropathy mid to lower lumbar spin e. IMPRESSION: 1. A 3.3 CM RIGHT ADRENAL MASS WITH WASHOUT CHARACTERISTICS COMPATIBLE WITH A BENIGN ADRENAL ADENOMA. 2. CORRELATE FOR FLUID OVERLOAD STATE. THERE IS A SMALL LEFT AND TRACE RIGHT EFFUSIONS, GENERALIZED A NASARCA CHANGE, AND [id number] ABDOMINOPELVIC ASCITES. 3. PATCHY HYPOENHANCEMENT UPPER AND MID POLE OF THE RIGHT KIDNEY. CORRELATE FOR POSSIBLE PYELONEPHRIT IS. 4. HYDROPIC GALLBLADDER WITH CHOLELITHIASIS. THE GALLBLADDER DISTENTION MAY RELATE TO FASTING STATE. IF CONCERN FOR EARLY ACUTE CHOLECYSTITIS, HIDA SCAN CAN BE CONSIDERED. 5. MODERATE CIRCUMFERENTIAL WALL THICKENING OF THE BLADDER. CORRELATE TO EXCLUDE CYSTITIS.
[2022-03-09 21:40] LABS: Glucose,Whole Blood 320 mg/dL (70-110)
[2022-03-10 07:09] LABS: Glucose,Whole Blood 230 mg/dL (70-110)
[2022-03-10] MEDS: CEFEPIME 2 GM in SODIUM CHLORIDE 0.9% 100 ML IVPB SCH ×3 (08:06→23:54)
[2022-03-10] MEDS: INSULIN DETEMIR (LEVEMIR) 100 UNIT/ML SYR SQ SCH (08:07)
[2022-03-10] MEDS: INSULIN ASPART (NovoLOG) 100 UNIT/ML VIAL SQ SCH ×4 (08:07→21:15)
[2022-03-10] MEDS: traMADol 50 MG TAB PO PRN ×2 (08:09→15:47)
--- NOTE | 2022-03-10 08:18 | P.PN ---
Subjective Progress Note Date: 03/10/22 Principal diagnosis: Bilateral lower extremity weakness Patient seen and examined at bedside. Patient is resting semi-recumbent in hospital bed with PRAFO boots present on bilateral feet. Patient was able to move his left lower extremity up in the bed, unable to move RLE. Patient is currently NPO for colonoscopy today. Patient states that his pain is managed on current regimen. Encouraged use of incentive spirometer. Araujo Catheter present and patent. Patient currently denies any fever/chills, shortness of breath, or chest pain. Objective - Vital Signs Vital signs: Vital Signs Temp 100.7 F H 03/10/22 01:19 Pulse 74 03/10/22 01:19 Resp 16 03/10/22 01:19 BP 100/60 03/10/22 01:19 Pulse Ox 98 03/10/22 01:19 FiO2 21 03/04/22 07:22 Intake & Output 03/09/22 03/10/22 03/10/22 18:59 06:59 18:59 Intake Total 1440 Output Total 2200 1700 Balance -760 -1700 Intake: IV 600 Lactated Ringers 1,000 ml 600 @ 75 mls/hr IV .[id number] [facility] Rx#:[id number] Oral 840 Output: Urine 2200 1700 Other: Voiding Method Indwelling Catheter Indwelling Catheter - Exam Physical Examination General: The patient is awake and alert, in no acute distress Skin: Skin is warm and dry with no obvious rashes or lesions. Hairy patches absent, no dorsal skin dimples, no cafe au lait spots, and no surgical incisions. Prafo boots present bilaterally. Eye: Pupils are equal, round and reactive to light, extra-ocular movements are intact; there is normal conjunctiva bilaterally. Neck: The neck is supple, there is no tenderness and ROM intact. Cardiovascular: There is a regular rate and rhythm. No murmur, rub or gallop is appreciated. Respiratory: Lungs are clear to auscultation, respirations are non-labored, breath sounds are equal. Gastrointestinal: Soft, non-distended, non-tender abdomen . Back: There is slight tenderness to palpation in the paralumbar region. There is no obvious deformity . Musculoskeletal: ROM limited secondary to pain. Shoulder abduction 5/5, elbow flexors 5/5, wrist dorsiflexors 5/5. finger abductor 5/5, certified meeting professional 5/5, hip flexor 2/5, knee flexor 2/5, ankle dorsiflexor 2/5, ankle plantarflexion 2/5 and extens or hallucis 2/5. Neurological: CN 2-12 intact. There are no obvious motor or sensory deficits. Movement and coordination equal and intact. Sensory exam to light touch intact C5-T1 and intact from L2-S1. Reflexes 2/4 in bilateral upper and lower extremities. Negative Hoffmans, babinski, and clonus signs. Psychiatric: Cooperative, appropriate mood & affect, normal judgment. - Labs CBC & Chem 7: 03/09/22 05:45 03/09/22 05:45 Labs: Abnormal Lab Results - Last 24 Hours (Table) 03/09/22 03/09/22 03/09/22 Range/Units 05:45 11:09 16:57 WBC 12.8 H (3.8-10.6) k/uL RBC 3.38 L (4.30-5.90) m/uL Hgb 9.3 L (13.0-17.5) gm/dL Hct 29.4 L (39.0-53.0) % Plt Count 453 H (150-450) k/uL POC Glucose (mg/dL) 299 H (70-110) mg/dL Iron 14 L (65-175) ug/dL TIBC 143 L (228-460) ug/dL % Saturation 10.01 L (15.00-50.00) Transferrin 102.0 L (204.0-354.0) mg/dL Ferritin 892.0 H (22.0-322.0) ng/mL 03/09/22 03/10/22 Range/Units 21:39 07:08 WBC (3.8-10.6) k/uL RBC (4.30-5.90) m/uL Hgb (13.0-17.5) gm/dL Hct (39.0-53.0) % Plt Count (150-450) k/uL POC Glucose (mg/dL) 320 H 230 H (70-110) mg/dL Iron (65-175) ug/dL TIBC (228-460) ug/dL % Saturation (15.00-50.00) Transferrin (204.0-354.0) mg/dL Ferritin (22.0-322.0) ng/mL Assessment and Plan Assessment: Degenerative disc disease Central spinal cord stenosis at L2-L5 Bilateral lower extremity weakness Plan: Plan: Keep patient NPO per GI. Plan for surgical intervention for L2-S1 laminectomy with decompression and possible fusion pending. Appreciate medical, pulmonology, cardiology/vascular management Pain management - Tylenol; tramadol GI prophylaxis - Maalox; protonix - Maintain araujo catheter PT/OT - weightbearing as tolerated with walker, maintain PRAFO boots when in bed. *I reviewed and discussed this case with my attending Dr. Newton, whom has reviewed this chart and films and is in agreement with assessment and plan of care as outlined above. I have personally seen and examined the patient, performed the documentation and the assessment and plan as written. Number of minutes spent on the visit: 20m.
[2022-03-10 08:23] LABS: African American GFR (CKD) >90 (>60 ml/min/1.73 sqM); Anion Gap 4 mmol/L; Blood Urea Nitrogen 6 mg/dL (9-20); Calcium 6.8 mg/dL (8.4-10.2); Carbon Dioxide 32 mmol/L (22-30); Chloride 91 mmol/L (98-107); Glucose 188 mg/dL (74-99); Non-African American GFR(CKD) >90 (>60 ml/min/1.73 sqM); Potassium 3.9 mmol/L (3.5-5.1); Sodium 127 mmol/L (137-145)
[2022-03-10 08:37] LABS: Magnesium 2.2 mg/dL (1.6-2.3)
[2022-03-10] MEDS ORDERED: PEG 3350 (236 GM/BTL) + LYTES 4,000 ML BOTTLE PO ONE (09:00)
[2022-03-10 09:01] LABS: Basophils % (A) 0 %; Eosinophils # (A) 0.2 k/uL (0-0.7); Eosinophils % (A) 1 %; HCT 28.3 % (39.0-53.0); HGB 9.1 gm/dL (13.0-17.5); Lymphocytes # (A) 1.5 k/uL (1.0-4.8); Lymphocytes % (A) 13 %; MCH 27.3 pg (25.0-35.0); MCHC 32.3 g/dL (31.0-37.0); MCV 84.5 fL (80.0-100.0); Mean Platelet Volume 7.6; Monocytes # (A) 0.5 k/uL (0-1.0); Monocytes % (A) 4 %; Neutrophils # (A) 9.4 k/uL (1.3-7.7); Neutrophils % (A) 80 %; Platelet Count 519 k/uL (150-450); RBC 3.35 m/uL (4.30-5.90); WBC 11.7 k/uL (3.8-10.6)
--- NOTE | 2022-03-10 09:53 | P.PN ---
Subjective Progress Note Date: 03/09/22 This is a 62-year-old patient, follows with Dr. Mendez. Chronic stable medical conditions include ADHD, herniated disc lower back, smoker. Patient's son at the bedside. Patient yesterday took his medication was going to the bathroom and the son noticed that he was feeling looking weak. He became less responsive. Never passed out. Shaky. No fever or chills reported. EMS was called out. Patient is found to be in atrial fibrillation with rapid ventricular rate. In the ER started on IV heparin, given adenosine, later put on IV Cardizem. Also found to be in DKA. Put on insulin drip. Potassium was very low NG tube had to be pacemaker placement. Tired. Most of the history of pain medicine at the bedside. Patient rather tired and lethargic. Admitted with new onset of atrial fibrillation uncontrolled, diabetic ketoacidosis, acute metabolic encephalopathy, severe hypokalemia. Started on Cardizem drip, IV heparin, insulin drip. NG tube was placed for potassium replacement. March 03: ICU: Patient went back into sinus rhythm. Did have 3-4 minutes burst of A. fib with rapid ventricular rate and rhythm back in sinus rhythm. IV heparin is being changed over to subcu Lovenox 70 mg every 12. Insulin drip is discontinued. Put on Levemir 10 units. NG tube in place. Potassium being replaced. Still patient is rather lethargic. We'll get a computed tomography scan of the brain. And EEG. March 04: ICU: Remains in sinus rhythm. Has been off Cardizem drip. Slightly more awake but still lethargic. Attempted to answer questions. Potassium down to 2.7. Potassium being replaced. At magnesium. By mouth amiodarone. On IV ceftriaxone for possible UTI. Sinus rhythm. Stop Catapres increase Lopressor to 100 mg twice a day. Check ammonia level. Phosphorus being replaced. Consult neurology. CT brain negative for stroke. EEG results pending. March 05: ICU. Laying in bed. Weak. EEG showed encephalopathy. Weakness in all the limbs. Just ordered able to lift his arms. [place] to be from electrolyte abnormalities. Able to answer questions slowly. Did tolerate some ice chips. Nurse will try to feed the patient. Lethargic but more awake. PTOT consulted. Unstageable bluish decolorization of the sacrum and heels. NG tube discontinued. IV fluids. INVESTIGATIONS, reviewed in the clinical context: HbA1c: 12.9 Computed tomography scan brain: No acute processes reported March 04: WBC 16.6 hemoglobin 9.8 potassium 2.7 creatinine 0.42 phosphorus 1.6 March 03: Sodium 136 potassium 3 BUN 22 creatinine 0.50 albumin 2.2 WBC 36.7 hemoglobin 14.7 platelets 470 potassium 2.7 sodium 128 bicarb 9 BUN 25 crit 0.89 blood glucose 564 UA positive for ketone 4+, leukoesterase negative for nitrite Urine drug screen: Negative Serum acetone positive EKG tracing personally reviewed by me-heart rate 171, ST segment depression Chest x-ray film personally reviewed by me-prominent pulmonary artery. Elevated right diaphragm. 2-D echocardiogram: EF 55-60%. 03/06/2020: Patient remains in the ICU improving slowly and gradually. Still had fever yesterday of 100.7, no more fever today. Other vitals are stable. Patient remains on ceftriaxone and he is been treated for UTI with Enterobacter. He still has fever as of yesterday therefore we will check renal ultrasound. Corcalcitonin 1.03, His altered mentation most likely is secondary to metabolic/toxic encephalopathy and UTI, neurologist on the case and he ordered MRI of the thoracolumbar spine to rule out spinal stenosis, results showing multilevel lumbar spinal stenosis but is mild and there is no spinal stenosis of the thoracic spine. Cardiology the case for new-onset A. fib, currently on Lovenox and amiodarone and rate controlled. Distal on IV fluids under lactate 125 Ulcers on Protonix 40 mg oral twice a day and Lovenox 70 mg twice daily. Glucose controlled on Levemir 14 units. His hemoglobin A1c is 12.9% and his DKA on admission resolved 03/07/2022 Patient still feels generally weak and lethargic. However he has good appetite. He denies chest pain or abdominal pain. No dyspnea. He looks comfortable in bed. He had 1 small bowel movement, no diarrhea. Zee catheter in place with yellow urine. Patient procalcitonin significantly improved down to 0.15, however his culture showed Enterobacter resistant to ceftriaxone. Patient currently on oral Levaquin. We going to consult infectious disease team. WBC is 11.3. Sodium 129. Patient fever on admission has subsided since then. Neurologist on the case and recommended EMG and nerve conduction study as an outpatient. Patient currently on Lovenox 70 mg twice a day, Levemir insulin 14 units and amiodarone. Also he is on oral Protonix twice daily and IV fluids under lactate at 125 Patient tolerates some diet, lower rate elected down to 75 mL/h renal ultrasound order, follow-up results 03/08/2022 Patient is seen and evaluated in follow-up this morning with multiple medical consultations including neurology, pulmonary, infectious disease, orthopedics following. Plan is for possible lumbar decompression sometime this week. Have consulted general surgery as per nursing report patient had a large dark tarry stool this morning. Hemoglobin is stable at 9.7. Patient's sodium is 129 with a potassium of 3.7 current creatinine is stable at 0.42. Blood sugars have been elevated and will continue current regimen. WBC remains elevated and patient is maintained on cefepime and will continue. Oral intake continues to be fair to poor and patient continues to report back pain. Patient has been febrile. Patient denies chest pain or shortness of breath. Patient is extremely lethargic with generalized edema noted throughout. Will consult nephrology for hyponatremia 03/09/2022 Patient is seen and evaluated in follow-up this morning. Multiple medical consultations following including orthopedics, general surgery, nephrology, pulmonary, and infectious disease. Plan was for tentative decompression surgery with orthopedics although sodium continues to be low and nursing reported dark tarry stools and is being evaluated with EGD/colonoscopy that is to be done on . Patient will start bowel prep tomorrow and will monitor closely of labs. Abdomen ultrasound was ordered as well and patient is continue with i ndwelling Zee catheter. Patient currently maintained on antibiotics and will continue. Patient is maintained on clear liquids and tolerating appears more awake and alert than yesterday. Patient continues to be weak and denies chest pain or shortness of breath. Patient labs currently pending and nephrology is following for hyponatremia and was started on Lasix. Review of systems: Constitutional: No reports of fatigue, fever, or chills Cardiovascular: No reports of chest pain or palpitations Respiratory: No reports of shortness of breath or cough GI: No reports of nausea, vomiting, or diarrhea : No reports of dysuria or retention Neurovascular: No reports of weakness or numbness All medications have been reviewed Active Medications Acetaminophen (Acetaminophen Tab 325 Mg Tab) 650 mg PO Q6HR PRN PRN Reason: Mild Pain or Fever > 100.5 Last Admin: 03/08/22 14:52 Dose: 650 mg Al Hydroxide/Mg Hydroxide (Mag Hydrox/Al Hydrox/Simeth 30 Ml Cup) 15 ml PO Q6HR PRN PRN Reason: Indigestion Amiodarone HCl (Amiodarone 200 Mg Tab) 200 mg PO BID [facility] Last Admin: 03/09/22 08:43 Dose: 200 mg Dextrose/Water (Dextrose 50% Syringe 50 Ml) 25 ml IVP PER PROTOCOL PRN; Protocol PRN Reason: Hypoglycemia Dextrose/Water (Dextrose 50% Syringe 50 Ml) 50 ml IVP PER PROTOCOL PRN; Protocol PRN Reason: Hypoglycemia Folic Acid (Folic Acid 1 Mg Tab) 1 mg PO DAILY [facility] Last Admin: 03/09/22 08:43 Dose: 1 mg Furosemide (Furosemide 10 Mg/Ml 4 Ml Vial) 40 mg IV Q12HR [facility] Last Admin: 03/09/22 11:36 Dose: 40 mg Cefepime HCl 2 gm/ Sodium (Chloride) 100 mls @ 25 mls/hr IVPB Q8HR [facility]; Protocol Last Admin: 03/09/22 15:25 Dose: 25 mls/hr Insulin Aspart (Insulin Aspart (Novolog) 100 Unit/Ml Vial) 0 unit SQ Q6HR [facility]; Protocol Last Admin: 03/09/22 11:41 Dose: Not Given Insulin Detemir (Insulin Detemir (Levemir) 100 Unit/Ml Syr) 14 unit SQ DAILY@0700 [facility] Last Admin: 03/09/22 06:21 Dose: 14 unit Magnesium Oxide (Magnesium Oxide 400 Mg Tab) 400 mg PO TID [facility] Last Admin: 03/09/22 15:31 Dose: 400 mg Metoprolol Tartrate (Metoprolol Tartrate 50 Mg Tab) 100 mg PO BID [facility] Last Admin: 03/09/22 08:44 Dose: 100 mg Miscellaneous Information (Potassium Replacement Protocol 1 Each Misc) 1 each MISCELLANE DAILY PRN; Protocol PRN Reason: Per Protocol Miscellaneous Information (Phosphorus Replacement Protoco 1 Each Misc) 1 each MISCELLANE DAILY PRN; Protocol PRN Reason: Per Protocol Naloxone HCl (Naloxone 0.4 Mg/Ml 1 Ml Vial) 0.2 mg IV Q2M PRN PRN Reason: Opioid Reversal Nicotine (Nicotine 21mg/24hr Patch) 1 patch TRANSDERM DAILY [facility] Last Admin: 03/09/22 08:44 Dose: 1 patch Ondansetron HCl (Ondansetron 4 Mg/2 Ml Vial) 4 mg IVP Q8HR PRN PRN Reason: Nausea And Vomiting Pantoprazole Sodium (Pantoprazole 40 Mg/10 Ml Vial) 40 mg IVP BID [facility] Last Admin: 03/09/22 08:44 Dose: 40 mg Polyethylene Glycol/Electrolytes (Peg 3350 (236 Gm/Btl) + Lytes 4,000 Ml Bottle) 4,000 ml PO ONCE ONE Stop: 03/10/22 09:01 Tramadol HCl (Tramadol 50 Mg Tab) 50 mg PO QID PRN PRN Reason: Pain Last Admin: 03/09/22 08:50 Dose: 50 mg Physical exam: GENERAL: The patient is alert and oriented x2-3, more awake today . Well developed, well nourished. Generally weak HEENT: Pupils are round and equally reacting to light. EOMI. No scleral icterus. No conjunctival pallor. Normocephalic, atraumatic. No pharyngeal erythema. No thyromegaly. CARDIOVASCULAR: S1 and S2 present. No murmurs, rubs, or gallops. PULMONARY: Chest is clear to auscultation, no wheezing or crackles. ABDOMEN: Soft, nontender, nondistended, normoactive bowel sounds. No palpable organomegaly. MUSCULOSKELETAL: No joint swelling or deformity. EXTREMITIES: No cyanosis, clubbing, or pedal edema. NEUROLOGICAL: Gross neurological examination did not reveal any focal deficits. SKIN: No rashes. no petechiae. Assessment: Diabetic ketoacidosis present on admission resolved diabetes mellitus uncontrolled with hyperglycemia Hyponatremia secondary to poor oral intake Acute urinary tract infection secondary to Enterobacter Metabolic encephalopathy, improving New-onset A. fib with RVR Dehydration and hypovolemia improving Generalized weakness, lumbar spine showing only mild spinal stenosis GI prophylaxis DVT prophylaxis Full code Plan: Nephrology consulted for hyponatremia along with general surgery for possible GI bleed patient did have large dark tarry stool and will undergo EGD and tentatively being scheduled for colonoscopy this coming with surgery Patient is being started on Lasix by nephrology and fluids have been discontinued. Patient currently on antibiotics with infectious disease following Orthopedics following discussing possible decompression surgery although not quite medically stable at this time with multiple other concerns including possible GI bleed recommend holding on decompression surgery until cleared by ge neral surgery from colonoscopy Lovenox has been placed on questionable lumbar decompression surgery with orthopedics following Continue with amiodarone per Sewing Machines Salesperson Recommend continue monitoring Accu-Cheks before meals and at bedtime and treat accordingly with current regimen Pulmonary, orthopedics, infectious disease, cardiology and neurology service on the case Due to multiple complex medical issues, prognosis is guarded. Recommend repeat labs in a.m. Continue with clear liquids per general surgery and initiate bowel prep for colonoscopy The impression and plan of care has been dictated by Kaykay Polk, nurse practitioner as directed. Dr. Gila MD I have performed a history and examination and MDM of this patient, discussed the same with the dictator, and agree with the dictator's assessment and plan as written ,documented as a scribe. Based on total visit time, I have performed more than 50% of the visit. Any additional findings or plans will be noted. Objective - Vital Signs Vital signs: Vital Signs Temp 97.5 F L 03/09/22 12:30 Pulse 68 03/09/22 13:30 Resp 20 03/09/22 13:30 BP 97/60 03/09/22 12:30 Pulse Ox 97 03/09/22 12:30 FiO2 21 03/04/22 07:22 Intake & Output 03/08/22 03/09/22 03/09/22 18:59 06:59 18:59 Intake Total 900 840 Output Total 710 2640 1000 Balance 190 -2640 -160 Intake: IV 900 Lactated Ringers 1,000 ml 900 @ 75 mls/hr IV .[id number] [facility] Rx#:[id number] Oral 840 Output: Urine 710 2640 1000 Uretheral (Eze) 710 Other: Voiding Method Indwelling Catheter Indwelling Catheter Indwelling Catheter # Bowel Movements 1 - Labs CBC & Chem 7: 03/10/22 07:14 03/10/22 07:14 Labs: Abnormal Lab Results - Last 24 Hours (Table) 03/08/22 03/08/22 03/09/22 Range/Units 16:50 23:58 05:45 WBC (3.8-10.6) k/uL RBC (4.30-5.90) m/uL Hgb (13.0-17.5) gm/dL Hct (39.0-53.0) % Plt Count (150-450) k/uL Sodium 129 L (137-145) mmol/L Chloride 93 L (98-107) mmol/L Carbon Dioxide 33 H (22-30) mmol/L Creatinine 0.52 L (0.66-1.25) mg/dL Glucose 113 H (74-99) mg/dL POC Glucose (mg/dL) 231 H 203 H (70-110) mg/dL Calcium 7.1 L (8.4-10.2) mg/dL Iron (65-175) ug/dL TIBC (228-460) ug/dL % Saturation (15.00-50.00) Transferrin (204.0-354.0) mg/dL Ferritin (22.0-322.0) ng/mL 03/09/22 03/09/22 03/09/22 Range/Units 05:45 06:01 11:09 WBC 12.8 H (3.8-10.6) k/uL RBC 3.38 L (4.30-5.90) m/uL Hgb 9.3 L (13.0-17.5) gm/dL Hct 29.4 L (39.0-53.0) % Plt Count 453 H (150-450) k/uL Sodium (137-145) mmol/L Chloride (98-107) mmol/L Carbon Dioxide (22-30) mmol/L Creatinine (0.66-1.25) mg/dL Glucose (74-99) mg/dL POC Glucose (mg/dL) 199 H (70-110) mg/dL Calcium (8.4-10.2) mg/dL Iron 14 L (65-175) ug/dL TIBC 143 L (228-460) ug/dL % Saturation 10.01 L (15.00-50.00) Transferrin 102.0 L (204.0-354.0) mg/dL Ferritin 892.0 H (22.0-322.0) ng/mL Microbiology - Last 24 Hours (Table) 03/07/22 16:30 Urine Culture - Final Urine,Voided Betty albicans
--- NOTE | 2022-03-10 10:55 | P.PN ---
Subjective Patient is seen in follow-up for hyponatremia. Sodium level 127 today. Receiving IV Lasix. Nonoliguric. Has a Zee catheter. Oral intake is poor. Blood pressure stable. Vital signs are stable. General: Awake. No acute distress. HEENT: Head exam is unremarkable. LUNGS: Breath sounds decreased. HEART: Rate and Rhythm are regular. ABDOMEN: Soft, no distention. EXTREMITITES: 1+ edema. Objective - Vital Signs Vital signs: Vital Signs Temp 98.4 F 03/10/22 07:46 Pulse 78 03/10/22 09:02 Resp 16 03/10/22 09:02 BP 115/68 03/10/22 07:46 Pulse Ox 96 03/10/22 07:46 FiO2 21 03/04/22 07:22 Intake & Output 03/09/22 03/10/22 03/10/22 18:59 06:59 18:59 Intake Total 1440 358 Output Total 2200 1700 400 Balance -760 -1700 -42 Intake: IV 600 Lactated Ringers 1,000 ml 600 @ 75 mls/hr IV .[id number] [facility] Rx#:[id number] Oral 840 358 Output: Urine 2200 1700 400 Other: Voiding Method Indwelling Catheter Indwelling Catheter Indwelling Catheter - Labs CBC & Chem 7: 03/10/22 07:14 03/10/22 07:14 Labs: Abnormal Lab Results - Last 24 Hours (Table) 03/09/22 03/09/22 03/09/22 Range/Units 11:09 16:57 21:39 WBC (3.8-10.6) k/uL RBC (4.30-5.90) m/uL Hgb (13.0-17.5) gm/dL Hct (39.0-53.0) % Plt Count (150-450) k/uL Neutrophils # (1.3-7.7) k/uL Sodium (137-145) mmol/L Chloride (98-107) mmol/L Carbon Dioxide (22-30) mmol/L BUN (9-20) mg/dL Creatinine (0.66-1.25) mg/dL Glucose (74-99) mg/dL POC Glucose (mg/dL) 299 H 320 H (70-110) mg/dL Calcium (8.4-10.2) mg/dL Iron 14 L (65-175) ug/dL TIBC 143 L (228-460) ug/dL % Saturation 10.01 L (15.00-50.00) Transferrin 102.0 L (204.0-354.0) mg/dL Ferritin 892.0 H (22.0-322.0) ng/mL 03/10/22 03/10/22 03/10/22 Range/Units 07:08 07:14 07:14 WBC 11.7 H (3.8-10.6) k/uL RBC 3.35 L (4.30-5.90) m/uL Hgb 9.1 L (13.0-17.5) gm/dL Hct 28.3 L (39.0-53.0) % Plt Count 519 H (150-450) k/uL Neutrophils # 9.4 H (1.3-7.7) k/uL Sodium 127 L (137-145) mmol/L Chloride 91 L (98-107) mmol/L Carbon Dioxide 32 H (22-30) mmol/L BUN 6 L (9-20) mg/dL Creatinine 0.51 L (0.66-1.25) mg/dL Glucose 188 H (74-99) mg/dL POC Glucose (mg/dL) 230 H (70-110) mg/dL Calcium 6.8 L (8.4-10.2) mg/dL Iron (65-175) ug/dL TIBC (228-460) ug/dL % Saturation (15.00-50.00) Transferrin (204.0-354.0) mg/dL Ferritin (22.0-322.0) ng/mL Assessment and Plan Plan: Assessment: 1. Hyponatremia. Hypervolemic. Sodium level 127 today. 2. Right adrenal mass suggestive of benign adrenal adenoma on CAT scan done 03/09/2022. Doubt hyperaldosteronism state as patient has no history of h ypertension and blood pressure is fairly well controlled without any antihypertensive meds. Cortisol level normal. 3. Metabolic alkalosis secondary to bicarb supplementation. Bicarb supplementation stopped 03/09/2022. 4. Central spinal cord stenosis. Surgery pending. 5. Anemia. Concern for GI bleed. EGD showed mild gastritis without any acute bleed. Colonoscopy tomorrow. Hemoglobin 9.1 today. Iron deficiency noted. 6. Diabetes mellitus. 7. Fluid overload. Plan: Maintain IV Lasix. 1200 mL fluid restriction. Add IV iron. Blood sugar control. Follow-up renin and aldosterone levels, plasma metanephrines. Check TSH. Samsca 15 mg once today. Check serum and urine osmolality and urine sodium level
[2022-03-10] MEDS ORDERED: TOLVAPTAN 15 MG 1/2 TABLET PO ONE (11:00)
[2022-03-10 11:06] LABS: Glucose,Whole Blood 343 mg/dL (70-110)
[2022-03-10] MEDS: METOPROLOL TARTRATE 50 MG TAB PO SCH ×2 (11:29→21:20)
[2022-03-10] MEDS: FOLIC ACID 1 MG TAB PO SCH (11:29)
[2022-03-10] MEDS: FUROSEMIDE 10 MG/ML 4 ML VIAL IV SCH ×2 (11:29→21:21)
[2022-03-10] MEDS: AMIODARONE 200 MG TAB PO SCH ×2 (11:29→21:20)
[2022-03-10] MEDS: PANTOPRAZOLE 40 MG/10 ML VIAL IVP SCH ×2 (11:30→21:21)
[2022-03-10] MEDS: NICOTINE 21MG/24HR PATCH TRANSDERM SCH (11:30)
[2022-03-10] MEDS: MAGNESIUM OXIDE 400 MG TAB PO SCH (11:57)
[2022-03-10] MEDS: SODIUM FERRIC GLUCONAT-SUCROSE 125 MG in SODIUM CHLORIDE 0.9% 100 ML IVPB SCH (12:25)
--- NOTE | 2022-03-10 12:37 | P.PN ---
Subjective Progress Note Date: 03/10/22 CHIEF COMPLAINT: Anemia and black stool HISTORY OF PRESENT ILLNESS: Patient had EGD completed yesterday showing mild antral gastritis, mild esophagitis and no evidence of any upper GI bleed. Patient reports she's had brown bowel movements. No further black stool. He complains of some diffuse abdominal pain. Patient is more awake and alert today. Tolerating clear liquids. Did have a low-grade temp of 100.7 early this morning. Computed tomography scan abdomen and pelvis ordered by nephrology ser vice showed a 3.3 centimeter right adrenal mass likely a benign adrenal adenoma. Correlate for fluid overload state there is a small left and trace right pleural effusion. Generalized anasarca change. Mild to moderate abdominal pelvic ascites. Hydropic gallbladder with cholelithiasis. Gallbladder distention may relate to fasting state. If concerns for cholecystitis HIDA scan be tender considered. Moderate circumferential wall thickening of the bladder. WBC is 11.7 hemoglobin is 9.1 platelets 519 sodium low at 127 creatinine 0.51 glucose 343 nephrology does have patient on IV Lasix. Patient seen and examined with Dr. al PHYSICAL EXAM: VITAL SIGNS: Reviewed. GENERAL: Well-developed in no acute distress. HEENT: No sclera icterus. Extraocular movements grossly intact. Moist buccal mucosa. Head is atraumatic, normocephalic. ABDOMEN: Soft. Nondistended. Diffuse tenderness NEUROLOGIC: Alert and oriented. Cranial nerves II through XII grossly intact. ASSESSMENT: 1. Anemia with black tarry stool 2. Incidental finding of hydropic gallbladder with cholelithiasis PLAN: -Patient scheduled for colonoscopy tomorrow 03/11/[address] al -Start GoLYTELY prep -Clear liquid diet today -Nothing by mouth after midnight -Continue to monitor hemoglobin -Continue to monitor for any signs or symptoms of bleeding -Hyponatremia management per nephrology -Orthopedic service is holding off on the laminectomy in ordered for patient to proceed with colonoscopy Physician Grid Casting Machine Operator Helper note has been reviewed by physician. Signing provider agrees with the documented findings, assessment, and plan of care. Objective - Vital Signs Vital signs: Vital Signs Temp 98.4 F 03/10/22 07:46 Pulse 76 03/10/22 11:07 Resp 16 03/10/22 09:02 BP 98/69 03/10/22 11:07 Pulse Ox 99 03/10/22 11:07 FiO2 21 03/04/22 07:22 Intake & Output 03/09/22 03/10/22 03/10/22 18:59 06:59 18:59 Intake Total 1440 358 Output Total 2200 1700 400 Balance -760 -1700 -42 Intake: IV 600 Lactated Ringers 1,000 ml 600 @ 75 mls/hr IV .[id number] [facility] Rx#:[id number] Oral 840 358 Output: Urine 2200 1700 400 Other: Voiding Method Indwelling Catheter Indwelling Catheter Indwelling Catheter # Bowel Movements 1 - Labs CBC & Chem 7: 03/10/22 07:14 03/10/22 07:14 Labs: Abnormal Lab Results - Last 24 Hours (Table) 03/09/22 03/09/22 03/09/22 Range/Units 11:09 16:57 21:39 WBC (3.8-10.6) k/uL RBC (4.30-5.90) m/uL Hgb (13.0-17.5) gm/dL Hct (39.0-53.0) % Plt Count (150-450) k/uL Neutrophils # (1.3-7.7) k/uL Sodium (137-145) mmol/L Chloride (98-107) mmol/L Carbon Dioxide (22-30) mmol/L BUN (9-20) mg/dL Creatinine (0.66-1.25) mg/dL Glucose (74-99) mg/dL POC Glucose (mg/dL) 299 H 320 H (70-110) mg/dL Osmolality (280-301) mosm/kg Calcium (8.4-10.2) mg/dL Iron 14 L (65-175) ug/dL TIBC 143 L (228-460) ug/dL % Saturation 10.01 L (15.00-50.00) Transferrin 102.0 L (204.0-354.0) mg/dL Ferritin 892.0 H (22.0-322.0) ng/mL 03/10/22 03/10/22 03/10/22 Range/Units 07:08 07:14 07:14 WBC 11.7 H (3.8-10.6) k/uL RBC 3.35 L (4.30-5.90) m/uL Hgb 9.1 L (13.0-17.5) gm/dL Hct 28.3 L (39.0-53.0) % Plt Count 519 H (150-450) k/uL Neutrophils # 9.4 H (1.3-7.7) k/uL Sodium 127 L (137-145) mmol/L Chloride 91 L (98-107) mmol/L Carbon Dioxide 32 H (22-30) mmol/L BUN 6 L (9-20) mg/dL Creatinine 0.51 L (0.66-1.25) mg/dL Glucose 188 H (74-99) mg/dL POC Glucose (mg/dL) 230 H (70-110) mg/dL Osmolality (280-301) mosm/kg Calcium 6.8 L (8.4-10.2) mg/dL Iron (65-175) ug/dL TIBC (228-460) ug/dL % Saturation (15.00-50.00) Transferrin (204.0-354.0) mg/dL Ferritin (22.0-322.0) ng/mL 03/10/22 03/10/22 Range/Units 07:14 11:05 WBC (3.8-10.6) k/uL RBC (4.30-5.90) m/uL Hgb (13.0-17.5) gm/dL Hct (39.0-53.0) % Plt Count (150-450) k/uL Neutrophils # (1.3-7.7) k/uL Sodium (137-145) mmol/L Chloride (98-107) mmol/L Carbon Dioxide (22-30) mmol/L BUN (9-20) mg/dL Creatinine (0.66-1.25) mg/dL Glucose (74-99) mg/dL POC Glucose (mg/dL) 343 H (70-110) mg/dL Osmolality 271 L (280-301) mosm/kg Calcium (8.4-10.2) mg/dL Iron (65-175) ug/dL TIBC (228-460) ug/dL % Saturation (15.00-50.00) Transferrin (204.0-354.0) mg/dL Ferritin (22.0-322.0) ng/mL
--- NOTE | 2022-03-10 13:02 | P.CONS ---
History of Present Illness - Reason for Consult Consult date: 03/10/22 Adrenal mass - Chief Complaint Back pain - History of Present Illness Mr. Langley is a 62-year-old gentleman with a past medical history significant for diabetes mellitus type 2 who initially presented on 03/01/2022 with DKA along with SVT, which transitioned into atrial fibrillation. He has since had improved blood sugar control along with rate control with amiodarone. His hospitalization has been complicated by GI bleeding, with EGD revealing no evidence for acute bleeding, but did note inflammation in the distal esophagus and antrum, which were biopsied. He's also had Enterobacter UTI for which he is currently being treated for. Renal ultrasound on 03/07/2022 noted incidental hypoechoic mass measuring 2.5 x 2.9 x 2.3 cm above the upper pole of the right kidney. CT of abdomen and pelvis on 03/09/2022 noted right adrenal adenoma with noncontrast attenuation measuring 12 Hounsfield units with portal vein enhancement of 60 Hounsfield units. Delayed enhancement was 19 Hounsfield units. This lesion measured 3.3 cm in size. Nephrology was consulted and ordered cortisol, renal, metanephrine, and aldosterone. Oncology was recommended for additional recommendations. Currently, he notes having significant back pain due to spinal stenosis. Prior to admission, he denied any significant weight loss, dyspnea, hemoptysis, anorexia, nausea, constipation, melena, hematochezia, or prior blood per rectum. Review of Systems 14 point review of systems was conducted with pertinent positives and negatives as noted per HPI Past Medical History Past Medical History: Diabetes Mellitus History of Any Multi-Drug Resistant Organisms: None Reported Past Surgical History: Orthopedic Surgery Additional Past Surgical History / Comment(s): back pain son states pt recently "slipped a disc" taking gabapentin. Past Psychological History: No Psychological Hx Reported Smoking Status: Current every day smoker Past Alcohol Use History: Rare Past Drug Use History: None Reported Medications and Allergies Home Medications Medication Instructions Recorded Confirmed Type Dextroamphetamine/Amphetamine 30 mg PO BID 03/01/22 03/01/22 History [Dextroamphetamine/Amphetamine 30 mg Tab] sitaGLIPtin [Januvia] 100 mg PO DAILY 03/02/22 03/02/22 History Allergies Allergy/AdvReac Type Severity Reaction Status Date / Time No Known Allergies Allergy Verified 03/01/22 22:26 Physical Exam Vitals: Vital Signs Temp Pulse Pulse Pulse Resp BP Pulse Ox 03/10/22 11:07 73 76 98/69 99 03/10/22 09:02 78 16 03/10/22 07:46 98.4 F 78 16 115/68 96 03/10/22 07:41 98.4 F 76 16 118/67 97 03/10/22 01:19 100.7 F H 74 16 100/60 98 03/09/22 20:30 87 17 03/09/22 19:19 99.7 F H 87 17 108/71 100 03/09/22 14:00 97.8 F 65 17 116/72 100 03/09/22 13:30 68 20 Intake and Output 03/09/22 03/10/22 03/10/22 22:59 06:59 14:59 Intake Total 600 358 Output Total 1200 1700 400 Balance -600 -1700 -42 Intake: IV 600 Lactated Ringers 1,000 ml 600 @ 75 mls/hr IV .[id number] [facility] Rx#:[id number] Oral 358 Output: Urine 1200 1700 400 Other: Voiding Method Indwelling Catheter Indwelling Catheter # Bowel Movements 1 - Constitutional Fatigued appearing General appearance: cooperative, no acute distress - EENT Eyes: EOMI - Respiratory Respiratory: bilateral: CTA - Cardiovascular Rhythm: regular ankle Peripheral Edema: right: 2+, left: Trace - Gastrointestinal General gastrointestinal: no distended, normal bowel sounds Localized gastrointestinal: tender: diffuse (No rebound or guarding noted) - Integumentary Venous stasis of lower extremity bilaterally - Neurologic Neurologic: CNII-XII intact Results CBC & Chem 7: 03/10/22 07:14 03/10/22 07:14 Labs: Abnormal Lab Results - Last 24 Hours (Table) 03/09/22 03/09/22 03/09/22 Range/Units 11:09 16:57 21:39 WBC (3.8-10.6) k/uL RBC (4.30-5.90) m/uL Hgb (13.0-17.5) gm/dL Hct (39.0-53.0) % Plt Count (150-450) k/uL Neutrophils # (1.3-7.7) k/uL Sodium (137-145) mmol/L Chloride (98-107) mmol/L Carbon Dioxide (22-30) mmol/L BUN (9-20) mg/dL Creatinine (0.66-1.25) mg/dL Glucose (74-99) mg/dL POC Glucose (mg/dL) 299 H 320 H (70-110) mg/dL Osmolality (280-301) mosm/kg Calcium (8.4-10.2) mg/dL Iron 14 L (65-175) ug/dL TIBC 143 L (228-460) ug/dL % Saturation 10.01 L (15.00-50.00) Transferrin 102.0 L (204.0-354.0) mg/dL Ferritin 892.0 H (22.0-322.0) ng/mL 03/10/22 03/10/22 03/10/22 Range/Units 07:08 07:14 07:14 WBC 11.7 H (3.8-10.6) k/uL RBC 3.35 L (4.30-5.90) m/uL Hgb 9.1 L (13.0-17.5) gm/dL Hct 28.3 L (39.0-53.0) % Plt Count 519 H (150-450) k/uL Neutrophils # 9.4 H (1.3-7.7) k/uL Sodium 127 L (137-145) mmol/L Chloride 91 L (98-107) mmol/L Carbon Dioxide 32 H (22-30) mmol/L BUN 6 L (9-20) mg/dL Creatinine 0.51 L (0.66-1.25) mg/dL Glucose 188 H (74-99) mg/dL POC Glucose (mg/dL) 230 H (70-110) mg/dL Osmolality (280-301) mosm/kg Calcium 6.8 L (8.4-10.2) mg/dL Iron (65-175) ug/dL TIBC (228-460) ug/dL % Saturation (15.00-50.00) Transferrin (204.0-354.0) mg/dL Ferritin (22.0-322.0) ng/mL 03/10/22 03/10/22 Range/Units 07:14 11:05 WBC (3.8-10.6) k/uL RBC (4.30-5.90) m/uL Hgb (13.0-17.5) gm/dL Hct (39.0-53.0) % Plt Count (150-450) k/uL Neutrophils # (1.3-7.7) k/uL Sodium (137-145) mmol/L Chloride (98-107) mmol/L Carbon Dioxide (22-30) mmol/L BUN (9-20) mg/dL Creatinine (0.66-1.25) mg/dL Glucose (74-99) mg/dL POC Glucose (mg/dL) 343 H (70-110) mg/dL Osmolality 271 L (280-301) mosm/kg Calcium (8.4-10.2) mg/dL Iron (65-175) ug/dL TIBC (228-460) ug/dL % Saturation (15.00-50.00) Transferrin (204.0-354.0) mg/dL Ferritin (22.0-322.0) ng/mL CT scan - abdomen: report reviewed US - abdomen: report reviewed Assessment and Plan Assessment: Mr. Langley is a 62-year-old gentleman with a past medical history significant for diabetes mellitus type 2 was initially hospitalized for DKA along with SVT/atrial fibrillation we had a prolonged hospitalization with multiple complications including Enterobacter UTI. Abdominal imaging noted incidental finding of right adrenal adenoma for which oncology has been consulted for additional management recommendations. (1) Adrenal cortical adenoma of right adrenal gland Current Visit: Yes Status: Acute Code(s): D35.01 - BENIGN NEOPLASM OF RIGHT ADRENAL GLAND SNOMED Code(s): 499225424 Plan: #Adrenal adenoma -Followed incidentally on imaging of the abdomen for workup of potential pyelonephritis -Is currently measuring 3.3 cm in size -CT abdomen and pelvis revealed noncontrast characteristics with washout that is more consistent with a adrenal adenoma versus adrenal carcinoma -He does not have any signs or symptoms or other radiographic findings consistent with malignancy. This lesion is not appear to be a metastatic lesion, as those 10 to have higher noncontrast Hounsfeld units (>20), and her usually bilateral and have irregular contours -Workup to see if this lesion is functional has been ordered by nephrology -I am concerned that it would be difficult to interpret these results in the setting of multiple medical issues for which Mr. Langley is currently hospitalized for -Given the size of the lesion, he should have follow-up imaging with CT abdomen and pelvis with contrast in about 6 months -In addition, he should have outpatient workup to see if this lesion is functional are not repeated with endocrinology in the outpatient setting -He should have follow-up with endocrinology arranged prior to discharge -Should the lesion grow to 4 cm or greater, he should be considered for surgical excision to rule out adrenal carcinoma
--- NOTE | 2022-03-10 13:32 | P.PN ---
Subjective Progress Note Date: 03/10/22 On 03/09/2022, There is a case of new onset atrial fibrillation, DKA, in addition to a gram-negative UTI. The patient came initially to the intensive care unit because of palpitation and shortness of breath patient was stabilized. Furthermore, he was sent to the medical floor. He did have an episode of upper GI bleed and for that reason he was kept nothing by mouth overnight and the patient's was supposed to do today. In fact , the patient completed an EGD and he was found to have mild gastritis. Hemoglobin is stable and there is no other episode of GI bleeding. Hemoglobin is currently at 9.3. The patient has a that, 4.8 with a platelet count of 453. Sodium was at 129, bicarbonate of 33 with a BUN of 10 and a creatinine of 0.5. The patient has Enterobacter cultured in the urine and the patient is still receiving IV cefepime. His cardiac rhythm is sinus. He remains on amiodarone 200 mg orally and is on Lovenox was placed on hold suspecting GI bleeding. As such, the patient is not taking any form of anticoagulation for now. He does have preserved LV function and his ech ocardiogram showed no significant structural or valvular heart abnormalities. He remains on room air oxygen. He is tolerating his diet. No other significant events overnight. Still incontinent to urine and stool and the patient has a stage II coccyx ulcer and areas of deep tissue injury on his heels especially on the right foot. 03/10/2022, the patient is resting comfortably in bed and he is currently on room air oxygen. 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 He has a gram-negative urinary tract infection with Enterobacter in his being treated accordingly with IV cefepime. He does have also a stage II coccyx ulcers and DTI to his heels. The patient has no other new complaints otherwise for now. The white cell count is 11.7 with a hemoglobin of 9.1. BUN is at 6 with a creatinine of 0.5 and a sodium level of 127. Noted that hemoglobin earlier was 9.3 and dropped down to 9.1. No evidence of an acute GI bleeding at this point in time. Sodium level is also running low at 127 earlier level was 129. The patient remains on Levemir insulin 14 units along with her that he is receiving sliding scale coverage. The patient continues to be on IV Lasix to optimize his volume status. He is in negative fluid balance of at least 2.4 is over the past 24 hours. This was initiated by nephrology. The patient is also getting ready for a colonoscopy and is undergoing a bowel prep. Objective - Vital Signs Vital signs: Vital Signs Temp 98.4 F 03/10/22 07:46 Pulse 76 03/10/22 11:07 Resp 16 03/10/22 09:02 BP 98/69 03/10/22 11:07 Pulse Ox 99 03/10/22 11:07 FiO2 21 03/04/22 07:22 Intake & Output 03/09/22 03/10/22 03/10/22 18:59 06:59 18:59 Intake Total 1440 358 Output Total 2200 1700 400 Balance -760 -1700 -42 Intake: IV 600 Lactated Ringers 1,000 ml 600 @ 75 mls/hr IV .[id number] [facility] Rx#:[id number] Oral 840 358 Output: Urine 2200 1700 400 Other: Voiding Method Indwelling Catheter Indwelling Catheter Indwelling Catheter # Bowel Movements 1 - Exam No acute distress, oriented 3. Currently on room air. Mental status is lethargic HEENT examination is grossly unremarkable. Neck supple. Full range of motion. No adenopathy thyromegaly or neck vein distention. Cardiovascular examination reveals regular rhythm rate. S1-S2 normal. No S3 or S4. No discernible murmur noted. Heart sounds are distant. Lungs reveal mostly clear breath sounds. Minimal scattered rhonchi. No wheezes or crackles. Room air saturation is 98%. Breath sounds are equal bilaterally. Abdomen soft bowel sounds are heard. No masses or tenderness. Extremities are intact. No cyanosis clubbing or edema. DTI to the heel on the right Skin is without rash or lesion. stage 2 wound on the coccyx Neurologic examination is brief but nonfocal. Profoundly weak - Labs CBC & Chem 7: 03/10/22 07:14 03/10/22 07:14 Labs: Abnormal Lab Results - Last 24 Hours (Table) 03/09/22 03/09/22 03/09/22 Range/Units 11:09 16:57 21:39 WBC (3.8-10.6) k/uL RBC (4.30-5.90) m/uL Hgb (13.0-17.5) gm/dL Hct (39.0-53.0) % Plt Count (150-450) k/uL Neutrophils # (1.3-7.7) k/uL Sodium (137-145) mmol/L Chloride (98-107) mmol/L Carbon Dioxide (22-30) mmol/L BUN (9-20) mg/dL Creatinine (0.66-1.25) mg/dL Glucose (74-99) mg/dL POC Glucose (mg/dL) 299 H 320 H (70-110) mg/dL Osmolality (280-301) mosm/kg Calcium (8.4-10.2) mg/dL Iron 14 L (65-175) ug/dL TIBC 143 L (228-460) ug/dL % Saturation 10.01 L (15.00-50.00) Transferrin 102.0 L (204.0-354.0) mg/dL Ferritin 892.0 H (22.0-322.0) ng/mL 03/10/22 03/10/22 03/10/22 Range/Units 07:08 07:14 07:14 WBC 11.7 H (3.8-10.6) k/uL RBC 3.35 L (4.30-5.90) m/uL Hgb 9.1 L (13.0-17.5) gm/dL Hct 28.3 L (39.0-53.0) % Plt Count 519 H (150-450) k/uL Neutrophils # 9.4 H (1.3-7.7) k/uL Sodium 127 L (137-145) mmol/L Chloride 91 L (98-107) mmol/L Carbon Dioxide 32 H (22-30) mmol/L BUN 6 L (9-20) mg/dL Creatinine 0.51 L (0.66-1.25) mg/dL Glucose 188 H (74-99) mg/dL POC Glucose (mg/dL) 230 H (70-110) mg/dL Osmolality (280-301) mosm/kg Calcium 6.8 L (8.4-10.2) mg/dL Iron (65-175) ug/dL TIBC (228-460) ug/dL % Saturation (15.00-50.00) Transferrin (204.0-354.0) mg/dL Ferritin (22.0-322.0) ng/mL 03/10/22 03/10/22 Range/Units 07:14 11:05 WBC (3.8-10.6) k/uL RBC (4.30-5.90) m/uL Hgb (13.0-17.5) gm/dL Hct (39.0-53.0) % Plt Count (150-450) k/uL Neutrophils # (1.3-7.7) k/uL Sodium (137-145) mmol/L Chloride (98-107) mmol/L Carbon Dioxide (22-30) mmol/L BUN (9-20) mg/dL Creatinine (0.66-1.25) mg/dL Glucose (74-99) mg/dL POC Glucose (mg/dL) 343 H (70-110) mg/dL Osmolality 271 L (280-301) mosm/kg Calcium (8.4-10.2) mg/dL Iron (65-175) ug/dL TIBC (228-460) ug/dL % Saturation (15.00-50.00) Transferrin (204.0-354.0) mg/dL Ferritin (22.0-322.0) ng/mL Assessment and Plan Plan: Acute diabetic ketoacidosis, recovered. Currently, the patient is on Levemir insulin and sliding scale coverage. The patient is stable. Altered mental status, improved. Enterobacter cloacae urinary tract infection, on IV cefepime Leukocytosis, improved. Hypokalemia, improved. Anion gap metabolic acidosis secondary to above. New onset atrial fibrillation with rapid ventricular response, currently in sinus Poosible UGI , currently off anticoagulation, the patient was found to have some mild antral gastritis and esophagitis without evidence of any acute bleeding and EGD was completed today and hemoglobin remained stable. The patient will be restarted back on his diet. History of diabetes mellitus, on levemir Chronic and ongoing tobacco dependence. History of ADHD. Plan: This patient is extremely debilitated, lethargic and weak. He has developed stage II one on his coccyx for which a Opteform was applied The patient also has many boots to protect his heels as the patient has developed deep tissue injury to his feet bilaterally The patient is being arranged for colonoscopy and for that reason the patient is going to receive GoLYTELY. Monitor hemoglobin No anticoagulants for now Continue IV Lasix to improve his volume status Cardiac rhythm is sinus Continue IV cefepime We'll continue to follow
[2022-03-10 16:42] LABS: Glucose,Whole Blood 77 mg/dL (70-110)
--- NOTE | 2022-03-10 17:38 | P.PN ---
Progress Note - Text Progress Note Date: 03/10/22 Chief Complaint: Decreased responsiveness This is a 62-year-old patient, follows with Dr. Mendez. Chronic stable medical conditions include ADHD, herniated disc lower back, smoker. Patient's son at the bedside. Patient yesterday took his medication was going to the bathroom and the son noticed that he was feeling looking weak. He became less responsive. Never passed out. Shaky. No fever or chills reported. EMS was called out. Patient is found to be in atrial fibrillation with rapid ventricular rate. In the ER started on IV heparin, given adenosine, later put on IV Cardizem. Also found to be in DKA. Put on insulin drip. Potassium was very low NG tube had to be pacemaker placement. Tired. Most of the history of pain medicine at the bedside. Patient rather tired and lethargic. Admitted with new onset of atrial fibrillation uncontrolled, diabetic k etoacidosis, acute metabolic encephalopathy, severe hypokalemia. Started on Cardizem drip, IV heparin, insulin drip. NG tube was placed for potassium replacement. March 03: ICU: Patient went back into sinus rhythm. Did have 3-4 minutes burst of A. fib with rapid ventricular rate and rhythm back in sinus rhythm. IV heparin is being changed over to subcu Lovenox 70 mg every 12. Insulin drip is discontinued. Put on Levemir 10 units. NG tube in place. Potassium being replaced. Still patient is rather lethargic. We'll get a computed tomography scan of the brain. And EEG. March 04: ICU: Remains in sinus rhythm. Has been off Cardizem drip. Slightly more awake but still lethargic. Attempted to answer questions. Potassium down to 2.7. Potassium being replaced. At magnesium. By mouth amiodarone. On IV ceftriaxone for possible UTI. Sinus rhythm. Stop Catapres increase Lopressor to 100 mg twice a day. Check ammonia level. Phosphorus being replaced. Consult neurology. CT brain negative for stroke. EEG results pending. March 05: ICU. Laying in bed. Weak. EEG showed encephalopathy. Weakness in all the limbs. Just ordered able to lift his arms. Tatum to be from electrolyte abnormalities. Able to answer questions slowly. Did tolerate some ice chips. Nurse will try to feed the patient. Lethargic but more awake. PTOT consulted. Unstageable bluish decolorization of the sacrum and heels. NG tube discontinued. IV fluids. 03/06/2020: Patient remains in the ICU improving slowly and gradually. Still had fever yesterday of 100.7, no more fever today. Other vitals are stable. Patient remains on ceftriaxone and he is been treated for UTI with Enterobacter. He still has fever as of yesterday therefore we will check renal ultrasound. Corcalcitonin 1.03, His altered mentation most likely is secondary to metabolic/toxic encephalopathy and UTI, neurologist on the case and he ordered MRI of the thoracolumbar spine to rule out spinal stenosis, results showing multilevel lumbar spinal stenosis but is mild and there is no spinal stenosis of the thoracic spine. Cardiology the case for new-onset A. fib, currently on Lovenox and amiodarone and rate controlled. Distal on IV fluids under lactate 125 Ulcers on Protonix 40 mg oral twice a day and Lovenox 70 mg twice daily. Glucose controlled on Levemir 14 units. His hemoglobin A1c is 12.9% and his DKA on admission resolved 03/07/2022 Patient still feels generally weak and lethargic. However he has good appetite. He denies chest pain or abdominal pain. No dyspnea. He looks comfortable in bed. He had 1 small bowel movement, no diarrhea. Zee catheter in place with yellow urine. Patient procalcitonin significantly improved down to 0.15, however his culture showed Enterobacter resistant to ceftriaxone. Patient currently on oral Levaquin. We going to consult infectious disease team. WBC is 11.3. Sodium 129. Patient fever on admission has subsided since then. Neurologist on the case and recommended EMG and nerve conduction study as an outpatient. Patient currently on Lovenox 70 mg twice a day, Levemir insulin 14 units and amiodarone. Also he is on oral Protonix twice daily and IV fluids under lactate at 125 Patient tolerates some diet, lower rate elected down to 75 mL/h renal ultrasound order, follow-up results 03/08/2022 Patient is seen and evaluated in follow-up this morning with multiple medical consultations including neurology, pulmonary, infectious disease, orthopedics following. Plan is for possible lumbar decompression sometime this week. Have consulted general surgery as per nursing report patient had a large dark tarry stool this morning. Hemoglobin is stable at 9.7. Patient's sodium is 129 with a potassium of 3.7 current creatinine is stable at 0.42. Blood sugars have been elevated and will continue current regimen. WBC remains elevated and patient is maintained on cefepime and will continue. Oral intake continues to be fair to poor and patient continues to report back pain. Patient has been febrile. Patient denies chest pain or shortness of breath. Patient is extremely lethargic with generalized edema noted throughout. Will consult nephrology for hyponatremia 03/09/2022 Patient is seen and evaluated in follow-up this morning. Multiple medical consultations following including orthopedics, general surgery, nephrology, pulmonary, and infectious disease. Plan was for tentative decompression surgery with orthopedics although sodium continues to be low and nursing reported dark tarry stools and is being evaluated with EGD/colonoscopy that is to be done on . Patient will start bowel prep tomorrow and will monitor closely of labs. Abdomen ultrasound was ordered as well and patient is continue with indwelling Zee catheter. Patient currently maintained on antibiotics and will continue. Patient is maintained on clear liquids and tolerating appears more awake and alert than yesterday. Patient continues to be weak and denies chest pain or shortness of breath. Patient labs currently pending and nephrology is following for hyponatremia and was started on Lasix. 03/10/2022: I resumed care of the patient today Tolerating clear liquids. Tired. Pending surgery-Dr. Newton . Back pain controlled. Patient's had black starry stools. For colonoscopy per Dr. Pabon. Active Medications Acetaminophen (Acetaminophen Tab 325 Mg Tab) 650 mg PO Q6HR PRN PRN Reason: Mild Pain or Fever > 100.5 Last Admin: 03/08/22 14:52 Dose: 650 mg Al Hydroxide/Mg Hydroxide (Mag Hydrox/Al Hydrox/Simeth 30 Ml Cup) 15 ml PO Q6HR PRN PRN Reason: Indigestion Amiodarone HCl (Amiodarone 200 Mg Tab) 200 mg PO BID [facility] Last Admin: 03/10/22 11:29 Dose: 200 mg Dextrose/Water (Dextrose 50% Syringe 50 Ml) 25 ml IVP PER PROTOCOL PRN; Protocol PRN Reason: Hypoglycemia Dextrose/Water (Dextrose 50% Syringe 50 Ml) 50 ml IVP PER PROTOCOL PRN; Protocol PRN Reason: Hypoglycemia Folic Acid (Folic Acid 1 Mg Tab) 1 mg PO DAILY [facility] Last Admin: 03/10/22 11:29 Dose: 1 mg Furosemide (Furosemide 10 Mg/Ml 4 Ml Vial) 40 mg IV Q12HR [facility] Last Admin: 03/10/22 11:29 Dose: 40 mg Cefepime HCl 2 gm/ Sodium (Chloride) 100 mls @ 25 mls/hr IVPB Q8HR [facility]; Protocol Last Admin: 03/10/22 15:37 Dose: 25 mls/hr Ferric Sodium Gluconate 125 mg (/ Sodium Chloride) 110 mls @ 100 mls/hr IVPB DAILY [facility] Stop: 03/13/22 12:01 Last Admin: 03/10/22 12:25 Dose: 100 mls/hr Insulin Aspart (Insulin Aspart (Novolog) 100 Unit/Ml Vial) 0 unit SQ ACHS [facility]; Protocol Last Admin: 03/10/22 17:11 Dose: Not Given Insulin Detemir (Insulin Detemir (Levemir) 100 Unit/Ml Syr) 14 unit SQ DAILY@0700 [facility] Last Admin: 03/10/22 08:07 Dose: 14 unit Metoprolol Tartrate (Metoprolol Tartrate 50 Mg Tab) 100 mg PO BID [facility] Last Admin: 03/10/22 11:29 Dose: 100 mg Miscellaneous Information (Potassium Replacement Protocol 1 Each Misc) 1 each MISCELLANE DAILY PRN; Protocol PRN Reason: Per Protocol Miscellaneous Information (Phosphorus Replacement Protoco 1 Each Misc) 1 each MISCELLANE DAILY PRN; Protocol PRN Reason: Per Protocol Naloxone HCl (Naloxone 0.4 Mg/Ml 1 Ml Vial) 0.2 mg IV Q2M PRN PRN Reason: Opioid Reversal Nicotine (Nicotine 21mg/24hr Patch) 1 patch TRANSDERM DAILY [facility] Last Admin: 03/10/22 11:30 Dose: 1 patch Ondansetron HCl (Ondansetron 4 Mg/2 Ml Vial) 4 mg IVP Q8HR PRN PRN Reason: Nausea And Vomiting Pantoprazole Sodium (Pantoprazole 40 Mg/10 Ml Vial) 40 mg IVP BID [facility] Last Admin: 03/10/22 11:30 Dose: 40 mg Tramadol HCl (Tramadol 50 Mg Tab) 50 mg PO QID PRN PRN Reason: Pain Last Admin: 03/10/22 15:47 Dose: 50 mg Past medical history to include: Diabetes, possible ADHD, chronic low back pain, herniated disc, Social history: Son lives with the patient. 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 Smokes about a pack a day. Alcohol occasionally. Physical examination: VITAL SIGNS: 97.9, 62, 14, 10 6 x 64, 98% room air GENERAL: Tired, answering questions EYES: Pupils equal. Conjunctiva normal. HEENT: External appearance of nose and ears normal, oral cavity mucous membranes moist NECK: JVD not raised; masses not palpable. HEART: Heart sounds normal; no edema. LUNGS: Respiratory rate increased; decreased breath sounds. ABDOMEN: Soft, nontender, liver spleen not palpable, no masses palpable. PSYCH: Answering questions appropriately INVESTIGATIONS, reviewed in the clinical context: March 10: WBC 11.7 hemoglobin 9.1 platelets 519 sodium 127 potassium 3.9 BUN 6 creatinine 0.51 serum osmolality 271 HbA1c: 12.9 Computed tomography scan brain: No acute processes reported March 04: WBC 16.6 hemoglobin 9.8 potassium 2.7 creatinine 0.42 phosphorus 1.6 March 03: Sodium 136 potassium 3 BUN 22 creatinine 0.50 albumin 2.2 WBC 36.7 hemoglobin 14.7 platelets 470 potassium 2.7 sodium 128 bicarb 9 BUN 25 crit 0.89 blood glucose 564 UA positive for ketone 4+, leukoesterase negative for nitrite Urine drug screen: Negative Serum acetone positive EKG tracing personally reviewed by me-heart rate 171, ST segment depression Chest x-ray film personally reviewed by me-prominent pulmonary artery. Elevated right diaphragm. 2-D echocardiogram: EF 55-60%. Assessment and plan: -Paroxysmal atrial fibrillation with a rapid ventricular rate, back in sinus rhythm Lopressor 100 mg twice a day. Oral amiodarone -IV heparin -discontinued Follow PTT -Diabetic ketoacidosis: Resolved IV insulin per protocol, discontinue. -Black starry stools. EGD showed mild gastritis and esophagitis. Pending colonoscopy per Dr. Pabon tomorrow. -Diabetes mellitus type 2, uncontrolled with hyperglycemia Levemir 14 units subcu daily. Follow Accu-Cheks -Acute metabolic encephalopathy, multifactorial, better Computed tomography scan of brain unremarkable.. EEG-encephalopathy. No seizure.. Follow with Neurology -Severe hypokalemia: Better Aggressive replacement of potassium. Follow-up magnesia. -Hypophosphatemia: Better Replace phosphorus -COPD in a current smoker Bronchodilators as needed -Chronic nicotine dependence, cigarette smoker Nicotine patch -Hypoosmolar, hyponatremia: New diagnosis Hold of free fluid intake. Add salt tablet -L2 S1 laminectomy and decompression, with lower extremity weakness for central spinal cord stenosis. Per Dr. Newton Restrict free fluids. Add sodium chloride tablets. Other medications to continue. [address] Newton . Pending colonoscopy tomorrow.
[2022-03-10] MEDS: SODIUM CHLORIDE TAB 1 GM TAB PO SCH ×2 (18:40→21:20)
[2022-03-10 20:51] LABS: Glucose,Whole Blood 107 mg/dL (70-110)
--- NOTE | 2022-03-10 23:40 | P.PN ---
Subjective Progress Note Date: 03/09/22 Principal diagnosis: Enterobacter catheter associated UTI Patient is a 62 year old male with initial presentation hospital 10 07/30/2003 palpitation and shortness of breath patient did have a low-grade fever and a positive urine culture with Enterobacter. On today's evaluation that is 03/09/2022, the Pt did have a low grade fever of 100.7, the patient is is breathing comfortably at home. Denies having any chest pain or shortness of breath or cough no abdominal pain no diarrhea Objective - Vital Signs Vital signs: Vital Signs Temp 98.2 F 03/09/22 01:01 Pulse 75 03/09/22 01:01 Resp 18 03/09/22 01:01 BP 134/79 03/09/22 01:01 Pulse Ox 99 03/09/22 01:01 FiO2 21 03/04/22 07:22 Intake & Output 03/08/22 03/09/22 03/09/22 18:59 06:59 18:59 Intake Total 900 Output Total 710 2640 Balance 190 -2640 Intake: IV 900 Lactated Ringers 1,000 ml 900 @ 75 mls/hr IV .[id number] [facility] Rx#:[id number] Output: Urine 710 2640 Uretheral (Zee) 710 Other: Voiding Method Indwelling Catheter Indwelling Catheter # Bowel Movements 1 - Exam GENERAL DESCRIPTION: A middle-aged male lying in bed in no distress RESPIRATORY SYSTEM: Unlabored breathing , decreased breath sounds at bases HEART: S1 S2 regular rate and rhythm , ABDOMEN: Soft , no tenderness EXTREMITIES: No edema feet - Labs CBC & Chem 7: 03/10/22 07:14 03/10/22 07:14 Labs: Abnormal Lab Results - Last 24 Hours (Table) 03/08/22 03/08/22 03/08/22 Range/Units 11:39 16:50 23:58 WBC (3.8-10.6) k/uL RBC (4.30-5.90) m/uL Hgb (13.0-17.5) gm/dL Hct (39.0-53.0) % Plt Count (150-450) k/uL Sodium (137-145) mmol/L Chloride (98-107) mmol/L Carbon Dioxide (22-30) mmol/L Creatinine (0.66-1.25) mg/dL Glucose (74-99) mg/dL POC Glucose (mg/dL) 331 H 231 H 203 H (70-110) mg/dL Calcium (8.4-10.2) mg/dL 03/09/22 03/09/22 03/09/22 Range/Units 05:45 05:45 06:01 WBC 12.8 H (3.8-10.6) k/uL RBC 3.38 L (4.30-5.90) m/uL Hgb 9.3 L (13.0-17.5) gm/dL Hct 29.4 L (39.0-53.0) % Plt Count 453 H (150-450) k/uL Sodium 129 L (137-145) mmol/L Chloride 93 L (98-107) mmol/L Carbon Dioxide 33 H (22-30) mmol/L Creatinine 0.52 L (0.66-1.25) mg/dL Glucose 113 H (74-99) mg/dL POC Glucose (mg/dL) 199 H (70-110) mg/dL Calcium 7.1 L (8.4-10.2) mg/dL Microbiology - Last 24 Hours (Table) 03/07/22 16:30 Urine Culture - Final Urine,Voided Betty albicans Assessment and Plan (1) Catheter-associated urinary tract infection Current Visit: Yes Status: Acute Code(s): T83.511A - I/I REACT D/T INDWELLING URETHRAL CATHETER, INIT; N39.0 - URINARY TRACT INFECTION, SITE NOT SPECIFIED SNOMED Code(s): 000484294 Plan: 1patient with a low-grade fever positive UA and urinary symptoms retention requiring Zee catheter placement concerning for a symptomatic UTI urine has been finalized with Enterobacter and this patient is currently on amiodarone using quinolones can lead to QT prolongation 2patient to continue with cefepime 2 g every 8 hours while waiting for repeat culture to finalize and monitor clinical course closely
--- NOTE | 2022-03-10 23:43 | P.PN ---
Subjective Progress Note Date: 03/10/22 Principal diagnosis: Enterobacter catheter associated UTI Patient is a 62 year old male with initial presentation hospital 10 07/30/2003 palpitation and shortness of breath patient did have a low-grade fever and a positive urine culture with Enterobacter. On today's evaluation that is 03/10/2022, the Pt did have a low grade fever but denies and rigors or chills, the patient is breathing comfortably at home. Denies having any chest pain or shortness of breath or cough no abdominal pain no diarrhea Objective - Vital Signs Vital signs: Vital Signs Temp 98.4 F 03/10/22 07:46 Pulse 76 03/10/22 11:07 Resp 16 03/10/22 09:02 BP 98/69 03/10/22 11:07 Pulse Ox 99 03/10/22 11:07 FiO2 21 03/04/22 07:22 Intake & Output 03/09/22 03/10/22 03/10/22 18:59 06:59 18:59 Intake Total 1440 358 Output Total 2200 1700 400 Balance -760 -1700 -42 Intake: IV 600 Lactated Ringers 1,000 ml 600 @ 75 mls/hr IV .[id number] [facility] Rx#:[id number] Oral 840 358 Output: Urine 2200 1700 400 Other: Voiding Method Indwelling Catheter Indwelling Catheter Indwelling Catheter # Bowel Movements 1 - Exam GENERAL DESCRIPTION: A middle-aged male lying in bed in no distress RESPIRATORY SYSTEM: Unlabored breathing , decreased breath sounds at bases HEART: S1 S2 regular rate and rhythm , ABDOMEN: Soft , no tenderness EXTREMITIES: No edema feet - Labs CBC & Chem 7: 03/10/22 07:14 03/10/22 07:14 Labs: Abnormal Lab Results - Last 24 Hours (Table) 03/09/22 03/09/22 03/09/22 Range/Units 11:09 16:57 21:39 WBC (3.8-10.6) k/uL RBC (4.30-5.90) m/uL Hgb (13.0-17.5) gm/dL Hct (39.0-53.0) % Plt Count (150-450) k/uL Neutrophils # (1.3-7.7) k/uL Sodium (137-145) mmol/L Chloride (98-107) mmol/L Carbon Dioxide (22-30) mmol/L BUN (9-20) mg/dL Creatinine (0.66-1.25) mg/dL Glucose (74-99) mg/dL POC Glucose (mg/dL) 299 H 320 H (70-110) mg/dL Osmolality (280-301) mosm/kg Calcium (8.4-10.2) mg/dL Iron 14 L (65-175) ug/dL TIBC 143 L (228-460) ug/dL % Saturation 10.01 L (15.00-50.00) Transferrin 102.0 L (204.0-354.0) mg/dL Ferritin 892.0 H (22.0-322.0) ng/mL 03/10/22 03/10/22 03/10/22 Range/Units 07:08 07:14 07:14 WBC 11.7 H (3.8-10.6) k/uL RBC 3.35 L (4.30-5.90) m/uL Hgb 9.1 L (13.0-17.5) gm/dL Hct 28.3 L (39.0-53.0) % Plt Count 519 H (150-450) k/uL Neutrophils # 9.4 H (1.3-7.7) k/uL Sodium 127 L (137-145) mmol/L Chloride 91 L (98-107) mmol/L Carbon Dioxide 32 H (22-30) mmol/L BUN 6 L (9-20) mg/dL Creatinine 0.51 L (0.66-1.25) mg/dL Glucose 188 H (74-99) mg/dL POC Glucose (mg/dL) 230 H (70-110) mg/dL Osmolality (280-301) mosm/kg Calcium 6.8 L (8.4-10.2) mg/dL Iron (65-175) ug/dL TIBC (228-460) ug/dL % Saturation (15.00-50.00) Transferrin (204.0-354.0) mg/dL Ferritin (22.0-322.0) ng/mL 03/10/22 03/10/22 Range/Units 07:14 11:05 WBC (3.8-10.6) k/uL RBC (4.30-5.90) m/uL Hgb (13.0-17.5) gm/dL Hct (39.0-53.0) % Plt Count (150-450) k/uL Neutrophils # (1.3-7.7) k/uL Sodium (137-145) mmol/L Chloride (98-107) mmol/L Carbon Dioxide (22-30) mmol/L BUN (9-20) mg/dL Creatinine (0.66-1.25) mg/dL Glucose (74-99) mg/dL POC Glucose (mg/dL) 343 H (70-110) mg/dL Osmolality 271 L (280-301) mosm/kg Calcium (8.4-10.2) mg/dL Iron (65-175) ug/dL TIBC (228-460) ug/dL % Saturation (15.00-50.00) Transferrin (204.0-354.0) mg/dL Ferritin (22.0-322.0) ng/mL Assessment and Plan (1) Catheter-associated urinary tract infection Current Visit: Yes Status: Acute Code(s): T83.511A - I/I REACT D/T INDWELLING URETHRAL CATHETER, INIT; N39.0 - URINARY TRACT INFECTION, SITE NOT SPECIFIED SNOMED Code(s): 395550496 Plan: 1patient with a low-grade fever positive UA and urinary symptoms retention requiring Zee catheter placement concerning for a symptomatic UTI urine has been finalized with Enterobacter and this patient is currently on amiodarone using quinolones can lead to QT prolongation 2patient to continue with cefepime 2 g every 8 hours , repeat culture with vashti and diflucan cannot be added because of amiodarone , will repeat his UA after change of catheter and check CRP and CBC with am labs Time with Patient: Less than 30
[2022-03-11 01:41] LABS: Appearance,Urine Cloudy (Clear); Bilirubin,Urine Negative (Negative); Blood,Urine Negative (Negative); Budding Yeast,Urine Many /hpf; Color,Urine Colorless; Glucose,Urine (UA) Negative (Negative); Hyphae Yeast, Urine Many /hpf; Ketones,Urine Negative (Negative); Leukocyte Esterase,Urine Large (Negative); Nitrite,Urine Negative (Negative); PH, Urine 7.5 (5.0-8.0); Protein,Urine Negative (Negative); Specific Gravity,Urine 1.005 (1.001-1.035); Squamous Epithelial Cell,Urine 1 /hpf (0-4); Urobilinogen,Urine <2.0 mg/dL (<2.0); WBC,Urine 36 /hpf (0-5)
[2022-03-11 07:13] LABS: Glucose,Whole Blood 160 mg/dL (70-110)
[2022-03-11] MEDS: CEFEPIME 2 GM in SODIUM CHLORIDE 0.9% 100 ML IVPB SCH ×3 (07:55→22:46)
[2022-03-11] MEDS: AMIODARONE 200 MG TAB PO SCH ×2 (07:57→19:45)
[2022-03-11] MEDS: METOPROLOL TARTRATE 50 MG TAB PO SCH ×2 (07:58→19:44)
[2022-03-11] MEDS: FOLIC ACID 1 MG TAB PO SCH (08:01)
[2022-03-11] MEDS: INSULIN ASPART (NovoLOG) 100 UNIT/ML VIAL SQ SCH ×4 (08:01→19:45)
[2022-03-11] MEDS: SODIUM CHLORIDE TAB 1 GM TAB PO SCH (08:02)
[2022-03-11] MEDS: PANTOPRAZOLE 40 MG/10 ML VIAL IVP SCH ×2 (08:02→19:45)
[2022-03-11] MEDS: FUROSEMIDE 10 MG/ML 4 ML VIAL IV SCH ×2 (08:02→19:44)
[2022-03-11] MEDS: NICOTINE 21MG/24HR PATCH TRANSDERM SCH (08:02)
[2022-03-11 08:47] LABS: Basophils % (A) 0 %; Eosinophils # (A) 0.1 k/uL (0-0.7); Eosinophils % (A) 1 %; HCT 28.7 % (39.0-53.0); HGB 9.4 gm/dL (13.0-17.5); Hypochromasia Slight; Lymphocytes # (A) 1.3 k/uL (1.0-4.8); Lymphocytes % (A) 16 %; MCH 27.8 pg (25.0-35.0); MCHC 32.7 g/dL (31.0-37.0); MCV 85.2 fL (80.0-100.0); Monocytes # (A) 0.4 k/uL (0-1.0); Monocytes % (A) 5 %; Neutrophils # (A) 6.5 k/uL (1.3-7.7); Neutrophils % (A) 77 %; Platelet Count 544 k/uL (150-450); RBC 3.37 m/uL (4.30-5.90); RDW 13.9 % (11.5-15.5); WBC 8.4 k/uL (3.8-10.6)
[2022-03-11] MEDS: INSULIN DETEMIR (LEVEMIR) 100 UNIT/ML SYR SQ SCH (09:52)
[2022-03-11 11:16] LABS: Glucose,Whole Blood 211 mg/dL (70-110)
[2022-03-11 11:18] LABS: ALT 9 U/L (10-49); AST 9 U/L (14-35); African American GFR (CKD) 133.1 (60.0-200.0); Albumin/Globulin Ratio 0.62 (1.60-3.17); Alkaline Phosphatase 44 U/L (41-126); BUN/Creat Ratio 11.19 Ratio (12.00-20.00); Blood Urea Nitrogen 5.8 mg/dL (9.0-27.0); Calcium 7.5 mg/dL (8.7-10.3); Carbon Dioxide 32.6 mmol/L (20.0-27.5); Chloride 103 mmol/L (96-109); Globulin 3.2 g/dL (1.6-3.3); Glucose 169 mg/dL (70-110); Magnesium 2.5 mg/dL (1.5-2.4); Non-African American GFR(CKD) 114.8 (60.0-200.0); Potassium 3.9 mmol/L (3.5-5.5); Sodium 143 mmol/L (135-145); Total Bilirubin <0.15 mg/dL (0.30-1.20); Total Protein 5.2 g/dL (6.2-8.2)
[2022-03-11] MEDS: SODIUM FERRIC GLUCONAT-SUCROSE 125 MG in SODIUM CHLORIDE 0.9% 100 ML IVPB SCH (12:15)
--- NOTE | 2022-03-11 13:09 | P.PN ---
Subjective Patient is seen for follow-up for hyponatremia., Hypervolemic and currently being diuresed. Serum sodium has increased to 144 today from 127 yesterday. Patient is maintained on sodium chloride tabs as well which will be discontinued. No significant complaints today Objective - Vital Signs Vital signs: Vital Signs Temp 98.4 F 03/11/22 12:30 Pulse 74 03/11/22 12:30 Resp 20 03/11/22 12:30 BP 110/66 03/11/22 12:30 Pulse Ox 99 03/11/22 12:30 FiO2 21 03/04/22 07:22 Intake & Output 03/10/22 03/11/22 03/11/22 18:59 06:59 18:59 Intake Total 558 Output Total 2550 6100 Balance -1991 Weight 76.3 kg Intake: Intake, IV Titration 200 Amount Cefepime 2 gm In Sodium 100 Chloride 0.9% 100 ml @ 25 mls/hr IVPB Q8HR [facility] Rx# :[id number] Sodium Ferric Gluconat- 100 Sucrose 125 mg In Sodium Chloride 0.9% 100 ml @ 100 mls/hr IVPB DAILY [facility] Rx#:[id number] Oral 358 Output: Urine 2550 6100 Other: Voiding Method Indwelling Catheter Indwelling Catheter Indwelling Catheter # Bowel Movements 1 2 - Exam Awake, comfortable, not in any acute distress Examination of the heart S1 and S2 Examination lungs bilateral breath sounds are heard Abdomen is soft nontender Examination of lower extremity shows edema 1+ bilaterally EYEGLASS LENS GRINDER exam grossly intact - Labs CBC & Chem 7: 03/11/22 08:25 03/11/22 08:25 Labs: Abnormal Lab Results - Last 24 Hours (Table) 03/09/22 03/10/22 03/11/22 Range/Units 11:09 18:28 00:43 RBC (4.30-5.90) m/uL Hgb (13.0-17.5) gm/dL Hct (39.0-53.0) % Plt Count (150-450) k/uL Carbon Dioxide (20.0-27.5) mmol/L Anion Gap (10.00-18.00) mmol/L BUN (9.0-27.0) mg/dL Creatinine (0.6-1.5) mg/dL BUN/Creatinine Ratio (12.00-20.00) Ratio Glucose (70-110) mg/dL POC Glucose (mg/dL) (70-110) mg/dL Calcium (8.7-10.3) mg/dL Magnesium (1.5-2.4) mg/dL Total Bilirubin (0.30-1.20) mg/dL AST (14-35) U/L ALT (10-49) U/L C-Reactive Protein (0.00-0.80) mg/dL Total Protein (6.2-8.2) g/dL Albumin (3.8-4.9) g/dL Albumin/Globulin Ratio (1.60-3.17) g/dL Renin Direct <2.1 L (3.1 - 57.1) pg/mL Ur Leukocyte Esterase Large H (Negative) Urine WBC 36 H (0-5) /hpf Urine Yeast (Budding) Many H (None) /hpf Ur Random Sodium 24 L (40-220) mmol/L 03/11/22 03/11/22 03/11/22 Range/Units 07:11 08:25 08:25 RBC 3.37 L (4.30-5.90) m/uL Hgb 9.4 L (13.0-17.5) gm/dL Hct 28.7 L (39.0-53.0) % Plt Count 544 H (150-450) k/uL Carbon Dioxide 32.6 H (20.0-27.5) mmol/L Anion Gap 7.60 L (10.00-18.00) mmol/L BUN 5.8 L (9.0-27.0) mg/dL Creatinine 0.5 L (0.6-1.5) mg/dL BUN/Creatinine Ratio 11.19 L (12.00-20.00) Ratio Glucose 169 H (70-110) mg/dL POC Glucose (mg/dL) 160 H (70-110) mg/dL Calcium 7.5 L (8.7-10.3) mg/dL Magnesium 2.5 H (1.5-2.4) mg/dL Total Bilirubin <0.15 L (0.30-1.20) mg/dL AST 9 L (14-35) U/L ALT 9 L (10-49) U/L C-Reactive Protein 5.60 H (0.00-0.80) mg/dL Total Protein 5.2 L (6.2-8.2) g/dL Albumin 2.0 L (3.8-4.9) g/dL Albumin/Globulin Ratio 0.62 L (1.60-3.17) g/dL Renin Direct (3.1 - 57.1) pg/mL Ur Leukocyte Esterase (Negative) Urine WBC (0-5) /hpf Urine Yeast (Budding) (None) /hpf Ur Random Sodium (40-220) mmol/L 03/11/22 Range/Units 11:14 RBC (4.30-5.90) m/uL Hgb (13.0-17.5) gm/dL Hct (39.0-53.0) % Plt Count (150-450) k/uL Carbon Dioxide (20.0-27.5) mmol/L Anion Gap (10.00-18.00) mmol/L BUN (9.0-27.0) mg/dL Creatinine (0.6-1.5) mg/dL BUN/Creatinine Ratio (12.00-20.00) Ratio Glucose (70-110) mg/dL POC Glucose (mg/dL) 211 H (70-110) mg/dL Calcium (8.7-10.3) mg/dL Magnesium (1.5-2.4) mg/dL Total Bilirubin (0.30-1.20) mg/dL AST (14-35) U/L ALT (10-49) U/L C-Reactive Protein (0.00-0.80) mg/dL Total Protein (6.2-8.2) g/dL Albumin (3.8-4.9) g/dL Albumin/Globulin Ratio (1.60-3.17) g/dL Renin Direct (3.1 - 57.1) pg/mL Ur Leukocyte Esterase (Negative) Urine WBC (0-5) /hpf Urine Yeast (Budding) (None) /hpf Ur Random Sodium (40-220) mmol/L Microbiology - Last 24 Hours (Table) 03/11/22 00:43 Urine Culture - Preliminary Urine,Voided Assessment and Plan Assessment: 1. Hyponatremia. Hypervolemic, maintained on diuretics. [place] [facility] [place] Sodium increased to 144 today from 127 yesterday. DC sodium chloride tabs. Repeat sodium this evening patient will need D5W if serum sodium continues to rise 2. Right adrenal mass suggestive of benign adrenal adenoma on CAT scan done 03/09/2022. Doubt hyperaldosteronism state as patient has no history of hypertension and blood pressure is fairly well controlled without any antihypertensive meds. Cortisol level normal. 3. Metabolic alkalosis secondary to bicarb supplementation. Bicarb supplementation stopped 03/09/2022. 4. Central spinal cord stenosis. Surgery pending. 5. Anemia. Concern for GI bleed. EGD showed mild gastritis without any acute bleed. Colonoscopy tomorrow. Hemoglobin 9.1 today. Iron deficiency noted. 6. Diabetes mellitus. 7. Fluid overload. Plan: DC sodium chloride tabs Repeat sodium this evening Add D5W if serum sodium continues to increase May continue with the Lasix
--- NOTE | 2022-03-11 13:23 | P.PN ---
Progress Note - Text Progress Note Date: 03/11/22 Chief Complaint: Decreased responsiveness This is a 62-year-old patient, follows with Dr. Mendez. Chronic stable medical conditions include ADHD, herniated disc lower back, smoker. Patient's son at the bedside. Patient yesterday took his medication was going to the bathroom and the son noticed that he was feeling looking weak. He became less responsive. Never passed out. Shaky. No fever or chills reported. EMS was called out. Patient is found to be in atrial fibrillation with rapid ventricular rate. In the ER started on IV heparin, given adenosine, later put on IV Cardizem. Also found to be in DKA. Put on insulin drip. Potassium was very low NG tube had to be pacemaker placement. Tired. Most of the history of pain medicine at the bedside. Patient rather tired and lethargic. Admitted with new onset of atrial fibrillation uncontrolled, diabetic k etoacidosis, acute metabolic encephalopathy, severe hypokalemia. Started on Cardizem drip, IV heparin, insulin drip. NG tube was placed for potassium replacement. March 03: ICU: Patient went back into sinus rhythm. Did have 3-4 minutes burst of A. fib with rapid ventricular rate and rhythm back in sinus rhythm. IV heparin is being changed over to subcu Lovenox 70 mg every 12. Insulin drip is discontinued. Put on Levemir 10 units. NG tube in place. Potassium being replaced. Still patient is rather lethargic. We'll get a computed tomography scan of the brain. And EEG. March 04: ICU: Remains in sinus rhythm. Has been off Cardizem drip. Slightly more awake but still lethargic. Attempted to answer questions. Potassium down to 2.7. Potassium being replaced. At magnesium. By mouth amiodarone. On IV ceftriaxone for possible UTI. Sinus rhythm. Stop Catapres increase Lopressor to 100 mg twice a day. Check ammonia level. Phosphorus being replaced. Consult neurology. CT brain negative for stroke. EEG results pending. March 05: ICU. Laying in bed. Weak. EEG showed encephalopathy. Weakness in all the limbs. Just ordered able to lift his arms. [place] to be from electrolyte abnormalities. Able to answer questions slowly. Did tolerate some ice chips. Nurse will try to feed the patient. Lethargic but more awake. PTOT consulted. Unstageable bluish decolorization of the sacrum and heels. NG tube discontinued. IV fluids. 03/06/2020: Patient remains in the ICU improving slowly and gradually. Still had fever yesterday of 100.7, no more fever today. Other vitals are stable. Patient remains on ceftriaxone and he is been treated for UTI with Enterobacter. He still has fever as of yesterday therefore we will check renal ultrasound. Corcalcitonin 1.03, His altered mentation most likely is secondary to metabolic/toxic encephalopathy and UTI, neurologist on the case and he ordered MRI of the thoracolumbar spine to rule out spinal stenosis, results showing multilevel lumbar spinal stenosis but is mild and there is no spinal stenosis of the thoracic spine. Cardiology the case for new-onset A. fib, currently on Lovenox and amiodarone and rate controlled. Distal on IV fluids under lactate 125 Ulcers on Protonix 40 mg oral twice a day and Lovenox 70 mg twice daily. Glucose controlled on Levemir 14 units. His hemoglobin A1c is 12.9% and his DKA on admission resolved 03/07/2022 Patient still feels generally weak and lethargic. However he has good appetite. He denies chest pain or abdominal pain. No dyspnea. He looks comfortable in bed. He had 1 small bowel movement, no diarrhea. Zee catheter in place with yellow urine. Patient procalcitonin significantly improved down to 0.15, however his culture showed Enterobacter resistant to ceftriaxone. Patient currently on oral Levaquin. We going to consult infectious disease team. WBC is 11.3. Sodium 129. Patient fever on admission has subsided since then. Neurologist on the case and recommended EMG and nerve conduction study as an outpatient. Patient currently on Lovenox 70 mg twice a day, Levemir insulin 14 units and amiodarone. Also he is on oral Protonix twice daily and IV fluids under lactate at 125 Patient tolerates some diet, lower rate elected down to 75 mL/h renal ultrasound order, follow-up results 03/08/2022 Patient is seen and evaluated in follow-up this morning with multiple medical consultations including neurology, pulmonary, infectious disease, orthopedics following. Plan is for possible lumbar decompression sometime this week. Have consulted general surgery as per nursing report patient had a large dark tarry stool this morning. Hemoglobin is stable at 9.7. Patient's sodium is 129 with a potassium of 3.7 current creatinine is stable at 0.42. Blood sugars have been elevated and will continue current regimen. WBC remains elevated and patient is maintained on cefepime and will continue. Oral intake continues to be fair to poor and patient continues to report back pain. Patient has been febrile. Patient denies chest pain or shortness of breath. Patient is extremely lethargic with generalized edema noted throughout. Will consult nephrology for hyponatremia 03/09/2022 Patient is seen and evaluated in follow-up this morning. Multiple medical consultations following including orthopedics, general surgery, nephrology, pulmonary, and infectious disease. Plan was for tentative decompression surgery with orthopedics although sodium continues to be low and nursing reported dark tarry stools and is being evaluated with EGD/colonoscopy that is to be done on . Patient will start bowel prep tomorrow and will monitor closely of labs. Abdomen ultrasound was ordered as well and patient is continue with indwelling Zee catheter. Patient currently maintained on antibiotics and will continue. Patient is maintained on clear liquids and tolerating appears more awake and alert than yesterday. Patient continues to be weak and denies chest pain or shortness of breath. Patient labs currently pending and nephrology is following for hyponatremia and was started on Lasix. 03/10/2022: I resumed care of the patient today Tolerating clear liquids. Tired. Pending surgery-Dr. Newton . Back pain controlled. Patient's had black starry stools. For colonoscopy per Dr. Pabon. 03/11/2022: Patient had soft brown stool today. Some abdominal discomfort. Pending colonoscopy today. Received bowel preparation. Patient received 1 dose of Samsca yesterday. Also IV Ferrlecit. Active Medications Acetaminophen (Acetaminophen Tab 325 Mg Tab) 650 mg PO Q6HR PRN PRN Reason: Mild Pain or Fever > 100.5 Last Admin: 03/08/22 14:52 Dose: 650 mg Al Hydroxide/Mg Hydroxide (Mag Hydrox/Al Hydrox/Simeth 30 Ml Cup) 15 ml PO Q6HR PRN PRN Reason: Indigestion Amiodarone HCl (Amiodarone 200 Mg Tab) 200 mg PO BID [facility] Last Admin: 03/11/22 07:57 Dose: 200 mg Dextrose/Water (Dextrose 50% Syringe 50 Ml) 25 ml IVP PER PROTOCOL PRN; Protocol PRN Reason: Hypoglycemia Dextrose/Water (Dextrose 50% Syringe 50 Ml) 50 ml IVP PER PROTOCOL PRN; Protocol PRN Reason: Hypoglycemia Folic Acid (Folic Acid 1 Mg Tab) 1 mg PO DAILY [facility] Last Admin: 03/11/22 08:01 Dose: Not Given Furosemide (Furosemide 10 Mg/Ml 4 Ml Vial) 40 mg IV Q12HR [facility] Last Admin: 03/11/22 08:02 Dose: 40 mg Cefepime HCl 2 gm/ Sodium (Chloride) 100 mls @ 25 mls/hr IVPB Q8HR [facility]; Protocol Last Admin: 03/11/22 07:55 Dose: 25 mls/hr Ferric Sodium Gluconate 125 mg (/ Sodium Chloride) 110 mls @ 100 mls/hr IVPB DAILY [facility] Stop: 03/13/22 12:01 Last Admin: 03/11/22 12:15 Dose: 100 mls/hr Insulin Aspart (Insulin Aspart (Novolog) 100 Unit/Ml Vial) 0 unit SQ ACHS [facility]; Protocol Last Admin: 03/11/22 12:15 Dose: 4 unit Insulin Detemir (Insulin Detemir (Levemir) 100 Unit/Ml Syr) 14 unit SQ DAILY@0700 [facility] Last Admin: 03/11/22 09:52 Dose: 14 unit Metoprolol Tartrate (Metoprolol Tartrate 50 Mg Tab) 100 mg PO BID [facility] Last Admin: 03/11/22 07:58 Dose: 100 mg Miscellaneous Information (Potassium Replacement Protocol 1 Each Misc) 1 each MISCELLANE DAILY PRN; Protocol PRN Reason: Per Protocol Miscellaneous Information (Phosphorus Replacement Protoco 1 Each Misc) 1 each MISCELLANE DAILY PRN; Protocol PRN Reason: Per Protocol Naloxone HCl (Naloxone 0.4 Mg/Ml 1 Ml Vial) 0.2 mg IV Q2M PRN PRN Reason: Opioid Reversal Nicotine (Nicotine 21mg/24hr Patch) 1 patch TRANSDERM DAILY [facility] Last Admin: 03/11/22 08:02 Dose: 1 patch Ondansetron HCl (Ondansetron 4 Mg/2 Ml Vial) 4 mg IVP Q8HR PRN PRN Reason: Nausea And Vomiting Pantoprazole Sodium (Pantoprazole 40 Mg/10 Ml Vial) 40 mg IVP BID [facility] Last Admin: 03/11/22 08:02 Dose: 40 mg Tramadol HCl (Tramadol 50 Mg Tab) 50 mg PO QID PRN PRN Reason: Pain Last Admin: 03/10/22 15:47 Dose: 50 mg Past medical history to include: Diabetes, possible ADHD, chronic low back pain, herniated disc, Social history: Son lives with the patient. 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 Smokes about a pack a day. Alcohol occasionally. Physical examination: VITAL SIGNS: 98.4, 74, 20, 110/66, 99% room air GENERAL: Tired, laying in bed EYES: Pupils equal. Conjunctiva normal. HEENT: External appearance of nose and ears normal, oral cavity mucous membranes moist NECK: JVD not raised; masses not palpable. HEART: Heart sounds normal; no edema. LUNGS: Respiratory rate increased; decreased breath sounds. ABDOMEN: Soft, nontender, liver spleen not palpable, no masses palpable. PSYCH: Answering questions appropriately INVESTIGATIONS, reviewed in the clinical context: March 11: WBC 8.4 hemoglobin 9.4 platelets 544 potassium 3.9 creatinine 0.5 March 10: WBC 11.7 hemoglobin 9.1 platelets 519 sodium 127 potassium 3.9 BUN 6 creatinine 0.51 serum osmolality 271 HbA1c: 12.9 Computed tomography scan brain: No acute processes reported March 04: WBC 16.6 hemoglobin 9.8 potassium 2.7 creatinine 0.42 phosphorus 1.6 March 03: Sodium 136 potassium 3 BUN 22 creatinine 0.50 albumin 2.2 WBC 36.7 hemoglobin 14.7 platelets 470 potassium 2.7 sodium 128 bicarb 9 BUN 25 crit 0.89 blood glucose 564 UA positive for ketone 4+, leukoesterase negative for nitrite Urine drug screen: Negative Serum acetone positive EKG tracing personally reviewed by me-heart rate 171, ST segment depression Chest x-ray film personally reviewed by me-prominent pulmonary artery. Elevated right diaphragm. 2-D echocardiogram: EF 55-60%. Assessment and plan: -Paroxysmal atrial fibrillation with a rapid ventricular rate, back in sinus rhythm Lopressor 100 mg twice a day. Oral amiodarone -IV heparin -discontinued Follow PTT -Diabetic ketoacidosis: Resolved -Black starry stools/acute GI bleed.. EGD showed mild gastritis and esophagitis. Pending colonoscopy per Dr. Pabon -Diabetes mellitus type 2, uncontrolled with hyperglycemia Levemir 14 units subcu daily. Follow Accu-Cheks -Acute metabolic encephalopathy, multifactorial, better Computed tomography scan of brain unremarkable.. EEG-encephalopathy. No seizure.. Follow with Neurology -Severe hypokalemia: Better Aggressive replacement of potassium. Follow-up magnesia. -Hypophosphatemia: Better Replace phosphorus -COPD in a current smoker Bronchodilators as needed -Chronic nicotine dependence, cigarette smoker Nicotine patch -Hypoosmolar, hyponatremia: Better Hold of free fluid intake. Received IV Samsca. -L2 S1 laminectomy and decompression, with lower extremity weakness for central spinal cord stenosis. Per Dr. Newton Sodium improved. Nothing by mouth for colonoscopy today. Other medications to continue.
--- NOTE | 2022-03-11 13:31 | P.PN ---
Subjective Progress Note Date: 03/11/22 Principal diagnosis: 1. 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 Bilateral lower extremity weakness Patient was seen at bedside this morning lying semirecumbent position. Patient appears somewhat groggy/fatigued during counter. Patient says he is awaiting colonoscopy later today. Patient mentions he is still unable to move his lower extremities on under his own power. Patient denies saddle anesthesia. Patient denies loss of bowel/bladder control. Patient denies chest pain, fever, shortness breath, nausea, vomiting, change in vision. Objective - Vital Signs Vital signs: Vital Signs Temp 98.4 F 03/11/22 12:30 Pulse 74 03/11/22 12:30 Resp 20 03/11/22 12:30 BP 110/66 03/11/22 12:30 Pulse Ox 99 03/11/22 12:30 FiO2 21 03/04/22 07:22 Intake & Output 03/10/22 03/11/22 03/11/22 18:59 06:59 18:59 Intake Total 558 Output Total 2550 6100 Balance -1991 Weight 76.3 kg Intake: Intake, IV Titration 200 Amount Cefepime 2 gm In Sodium 100 Chloride 0.9% 100 ml @ 25 mls/hr IVPB Q8HR [facility] Rx# :[id number] Sodium Ferric Gluconat- 100 Sucrose 125 mg In Sodium Chloride 0.9% 100 ml @ 100 mls/hr IVPB DAILY [facility] Rx#:[id number] Oral 358 Output: Urine 2550 6100 Other: Voiding Method Indwelling Catheter Indwelling Catheter Indwelling Catheter # Bowel Movements 1 2 - Exam Patient is somewhat lethargic during exam. Patient is alert and oriented 3 Inspection: Negative for any open fractures, significant ecchymosis/erythema/ulcers. Right upper extremity and bilateral lower extr emities are somewhat edematous Sensation: Sensation is equal, symmetric, bilaterally intact throughout the upper and lower extremities on exam Palpation: Patient does have some tenderness to palpation along the paraspinal region in the lumbar spine and in midline. NTTP throughout rest exam. Range of motion: Patient has full range of motion bilateral upper extremities on exam. Patient is unable to flex/extend hips, knees bilaterally on exam. Patient is able to wiggle toes and left lower extremity. Patient is unable to plantar/dorsiflex either ankle. Patient does have good range passive range of motion on exam and knee flexion/extension and hip flexion/extension. Motor: Bilateral upper extremities 4-/5 in curatorial specialist strength bilaterally. 4+/5 in resisted shoulder elevation, external/internal rotation, elbow flexion/extension and wrist flexion/extension. 2/5 in resisted plantar/dorsiflexion bilaterally. Patient unable to perform motor exam in bilateral knees and hips Neurovascular status: Radial pulse intact, 2+ bilaterally. Cap refill under 3 seconds in digits upper extremities. Special tests: Negative Pb's bilaterally. Negative clonus bilaterally. Negative Homans bilaterally. - Labs CBC & Chem 7: 03/11/22 08:25 03/11/22 08:25 Labs: Abnormal Lab Results - Last 24 Hours (Table) 03/09/22 03/10/22 03/11/22 Range/Units 11:09 18:28 00:43 RBC (4.30-5.90) m/uL Hgb (13.0-17.5) gm/dL Hct (39.0-53.0) % Plt Count (150-450) k/uL Carbon Dioxide (20.0-27.5) mmol/L Anion Gap (10.00-18.00) mmol/L BUN (9.0-27.0) mg/dL Creatinine (0.6-1.5) mg/dL BUN/Creatinine Ratio (12.00-20.00) Ratio Glucose (70-110) mg/dL POC Glucose (mg/dL) (70-110) mg/dL Calcium (8.7-10.3) mg/dL Magnesium (1.5-2.4) mg/dL Total Bilirubin (0.30-1.20) mg/dL AST (14-35) U/L ALT (10-49) U/L C-Reactive Protein (0.00-0.80) mg/dL Total Protein (6.2-8.2) g/dL Albumin (3.8-4.9) g/dL Albumin/Globulin Ratio (1.60-3.17) g/dL Renin Direct <2.1 L (3.1 - 57.1) pg/mL Ur Leukocyte Esterase Large H (Negative) Urine WBC 36 H (0-5) /hpf Urine Yeast (Budding) Many H (None) /hpf Ur Random Sodium 24 L (40-220) mmol/L 03/11/22 03/11/22 03/11/22 Range/Units 07:11 08:25 08:25 RBC 3.37 L (4.30-5.90) m/uL Hgb 9.4 L (13.0-17.5) gm/dL Hct 28.7 L (39.0-53.0) % Plt Count 544 H (150-450) k/uL Carbon Dioxide 32.6 H (20.0-27.5) mmol/L Anion Gap 7.60 L (10.00-18.00) mmol/L BUN 5.8 L (9.0-27.0) mg/dL Creatinine 0.5 L (0.6-1.5) mg/dL BUN/Creatinine Ratio 11.19 L (12.00-20.00) Ratio Glucose 169 H (70-110) mg/dL POC Glucose (mg/dL) 160 H (70-110) mg/dL Calcium 7.5 L (8.7-10.3) mg/dL Magnesium 2.5 H (1.5-2.4) mg/dL Total Bilirubin <0.15 L (0.30-1.20) mg/dL AST 9 L (14-35) U/L ALT 9 L (10-49) U/L C-Reactive Protein 5.60 H (0.00-0.80) mg/dL Total Protein 5.2 L (6.2-8.2) g/dL Albumin 2.0 L (3.8-4.9) g/dL Albumin/Globulin Ratio 0.62 L (1.60-3.17) g/dL Renin Direct (3.1 - 57.1) pg/mL Ur Leukocyte Esterase (Negative) Urine WBC (0-5) /hpf Urine Yeast (Budding) (None) /hpf Ur Random Sodium (40-220) mmol/L 03/11/22 Range/Units 11:14 RBC (4.30-5.90) m/uL Hgb (13.0-17.5) gm/dL Hct (39.0-53.0) % Plt Count (150-450) k/uL Carbon Dioxide (20.0-27.5) mmol/L Anion Gap (10.00-18.00) mmol/L BUN (9.0-27.0) mg/dL Creatinine (0.6-1.5) mg/dL BUN/Creatinine Ratio (12.00-20.00) Ratio Glucose (70-110) mg/dL POC Glucose (mg/dL) 211 H (70-110) mg/dL Calcium (8.7-10.3) mg/dL Magnesium (1.5-2.4) mg/dL Total Bilirubin (0.30-1.20) mg/dL AST (14-35) U/L ALT (10-49) U/L C-Reactive Protein (0.00-0.80) mg/dL Total Protein (6.2-8.2) g/dL Albumin (3.8-4.9) g/dL Albumin/Globulin Ratio (1.60-3.17) g/dL Renin Direct (3.1 - 57.1) pg/mL Ur Leukocyte Esterase (Negative) Urine WBC (0-5) /hpf Urine Yeast (Budding) (None) /hpf Ur Random Sodium (40-220) mmol/L Microbiology - Last 24 Hours (Table) 03/11/22 00:43 Urine Culture - Preliminary Urine,Voided Assessment and Plan Assessment: 1. 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 Bilateral lower extremity weakness Plan: 1. Degenerative disc disease; central spinal cord stenosis at L2-L5; Bilateral lower extremity weakness - patient seen at bedside this afternoon. MRI of thoracic is lumbar spine have been reviewed. There is degenerative disc disease throughout the spine as well as some moderate-severe spinal canal stenosis from L2 through L5 and degenerativ echanges in cervical spine. Patient going for colonoscopy today. We will continue to follow patient with plan for potential spine surgery in the near future - L2-pelvis decompression and fusion. We will continue to follow patient during his stay. 2. Appreciate medical, pulmonology, cardiology/vascular management, nephrology, gen surg management. 3. Pain management - Tylenol; tramadol 4. DVT prophylaxis - Lovenox 5. GI prophylaxis - Maalox; protonix 6. PT/OT - weightbearing as tolerated with walker 7. Appreciate consult Time with Patient: Less than 30
--- NOTE | 2022-03-11 14:56 | P.PN ---
Subjective Progress Note Date: 03/11/22 On 03/09/2022, There is a case of new onset atrial fibrillation, DKA, in addition to a gram-negative UTI. The patient came initially to the intensive care unit because of palpitation and shortness of breath patient was stabilized. Furthermore, he was sent to the medical floor. He did have an episode of upper GI bleed and for that reason he was kept nothing by mouth overnight and the patient's was supposed to do today. In fact , the patient completed an EGD and he was found to have mild gastritis. Hemoglobin is stable and there is no other episode of GI bleeding. Hemoglobin is currently at 9.3. The patient has a that, 4.8 with a platelet count of 453. Sodium was at 129, bicarbonate of 33 with a BUN of 10 and a creatinine of 0.5. The patient has Enterobacter cultured in the urine and the patient is still receiving IV cefepime. His cardiac rhythm is sinus. He remains on amiodarone 200 mg orally and is on Lovenox was placed on hold suspecting GI bleeding. As such, the patient is not taking any form of anticoagulation for now. He does have preserved LV function and his ech ocardiogram showed no significant structural or valvular heart abnormalities. He remains on room air oxygen. He is tolerating his diet. No other significant events overnight. Still incontinent to urine and stool and the patient has a stage II coccyx ulcer and areas of deep tissue injury on his heels especially on the right foot. 03/10/2022, the patient is resting comfortably in bed and he is currently on room air oxygen. 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 He has a gram-negative urinary tract infection with Enterobacter in his being treated accordingly with IV cefepime. He does have also a stage II coccyx ulcers and DTI to his heels. The patient has no other new complaints otherwise for now. The white cell count is 11.7 with a hemoglobin of 9.1. BUN is at 6 with a creatinine of 0.5 and a sodium level of 127. Noted that hemoglobin earlier was 9.3 and dropped down to 9.1. No evidence of an acute GI bleeding at this point in time. Sodium level is also running low at 127 earlier level was 129. The patient remains on Levemir insulin 14 units along with her that he is receiving sliding scale coverage. The patient continues to be on IV Lasix to optimize his volume status. He is in negative fluid balance of at least 2.4 is over the past 24 hours. This was initiated by nephrology. The patient is also getting ready for a colonoscopy and is undergoing a bowel prep. 03/11/2022, the patient is nothing by mouth and the patient is awaiting his colonoscopy. No new complaints. He is on room air oxygen. Lunesta or difficulties. No cough or sputum production or chest tightness or heaviness point in time. He remains on IV cefepime regarding Enterobacter urinary tract infection.He remains on diuretics. He is taking Lasix 40 mg IV every 12 hours. Rest of the medication remains unchanged. The white cell count of 8.4 with a hemoglobin of 9.4. Serum bicarbonate 32 with a BUN of 5.8 and a creatinine of 0.5. Potassium is at 3.5. Sodium is 143. Potassium levels at 3.9. Blood sugar is 211. Liver function tests are normal. Objective - Vital Signs Vital signs: Vital Signs Temp 98.1 F 03/11/22 14:00 Pulse 71 03/11/22 14:00 Resp 16 03/11/22 14:00 BP 103/64 03/11/22 14:00 Pulse Ox 98 03/11/22 14:00 FiO2 21 03/04/22 07:22 Intake & Output 03/10/22 03/11/22 03/11/22 18:59 06:59 18:59 Intake Total 558 Output Total 2550 6100 Balance -1991 Weight 76.3 kg Intake: Intake, IV Titration 200 Amount Cefepime 2 gm In Sodium 100 Chloride 0.9% 100 ml @ 25 mls/hr IVPB Q8HR [facility] Rx# :[id number] Sodium Ferric Gluconat- 100 Sucrose 125 mg In Sodium Chloride 0.9% 100 ml @ 100 mls/hr IVPB DAILY [facility] Rx#:[id number] Oral 358 Output: Urine 2550 6100 Other: Voiding Method Indwelling Catheter Indwelling Catheter Indwelling Catheter # Bowel Movements 1 2 - Exam No acute distress, oriented 3. Currently on room air. Mental status is lethargic HEENT examination is grossly unremarkable. Neck supple. Full range of motion. No adenopathy thyromegaly or neck vein distention. Cardiovascular examination reveals regular rhythm rate. S1-S2 normal. No S3 or S4. No discernible murmur noted. Heart sounds are distant. Lungs reveal mostly clear breath sounds. Minimal scattered rhonchi. No wheezes or crackles. Room air saturation is 98%. Breath sounds are equal bilaterally. Abdomen soft bowel sounds are heard. No masses or tenderness. Extremities are intact. No cyanosis clubbing or edema. DTI to the heel on the right Skin is without rash or lesion. stage 2 wound on the coccyx Neurologic examination is brief but nonfocal. Profoundly weak - Labs CBC & Chem 7: 03/11/22 08:25 03/11/22 08:25 Labs: Abnormal Lab Results - Last 24 Hours (Table) 03/09/22 03/10/22 03/11/22 Range/Units 11:09 18:28 00:43 RBC (4.30-5.90) m/uL Hgb (13.0-17.5) gm/dL Hct (39.0-53.0) % Plt Count (150-450) k/uL Carbon Dioxide (20.0-27.5) mmol/L Anion Gap (10.00-18.00) mmol/L BUN (9.0-27.0) mg/dL Creatinine (0.6-1.5) mg/dL BUN/Creatinine Ratio (12.00-20.00) Ratio Glucose (70-110) mg/dL POC Glucose (mg/dL) (70-110) mg/dL Calcium (8.7-10.3) mg/dL Magnesium (1.5-2.4) mg/dL Total Bilirubin (0.30-1.20) mg/dL AST (14-35) U/L ALT (10-49) U/L C-Reactive Protein (0.00-0.80) mg/dL Total Protein (6.2-8.2) g/dL Albumin (3.8-4.9) g/dL Albumin/Globulin Ratio (1.60-3.17) g/dL Renin Direct <2.1 L (3.1 - 57.1) pg/mL Ur Leukocyte Esterase Large H (Negative) Urine WBC 36 H (0-5) /hpf Urine Yeast (Budding) Many H (None) /hpf Ur Random Sodium 24 L (40-220) mmol/L 03/11/22 03/11/22 03/11/22 Range/Units 07:11 08:25 08:25 RBC 3.37 L (4.30-5.90) m/uL Hgb 9.4 L (13.0-17.5) gm/dL Hct 28.7 L (39.0-53.0) % Plt Count 544 H (150-450) k/uL Carbon Dioxide 32.6 H (20.0-27.5) mmol/L Anion Gap 7.60 L (10.00-18.00) mmol/L BUN 5.8 L (9.0-27.0) mg/dL Creatinine 0.5 L (0.6-1.5) mg/dL BUN/Creatinine Ratio 11.19 L (12.00-20.00) Ratio Glucose 169 H (70-110) mg/dL POC Glucose (mg/dL) 160 H (70-110) mg/dL Calcium 7.5 L (8.7-10.3) mg/dL Magnesium 2.5 H (1.5-2.4) mg/dL Total Bilirubin <0.15 L (0.30-1.20) mg/dL AST 9 L (14-35) U/L ALT 9 L (10-49) U/L C-Reactive Protein 5.60 H (0.00-0.80) mg/dL Total Protein 5.2 L (6.2-8.2) g/dL Albumin 2.0 L (3.8-4.9) g/dL Albumin/Globulin Ratio 0.62 L (1.60-3.17) g/dL Renin Direct (3.1 - 57.1) pg/mL Ur Leukocyte Esterase (Negative) Urine WBC (0-5) /hpf Urine Yeast (Budding) (None) /hpf Ur Random Sodium (40-220) mmol/L 03/11/22 Range/Units 11:14 RBC (4.30-5.90) m/uL Hgb (13.0-17.5) gm/dL Hct (39.0-53.0) % Plt Count (150-450) k/uL Carbon Dioxide (20.0-27.5) mmol/L Anion Gap (10.00-18.00) mmol/L BUN (9.0-27.0) mg/dL Creatinine (0.6-1.5) mg/dL BUN/Creatinine Ratio (12.00-20.00) Ratio Glucose (70-110) mg/dL POC Glucose (mg/dL) 211 H (70-110) mg/dL Calcium (8.7-10.3) mg/dL Magnesium (1.5-2.4) mg/dL Total Bilirubin (0.30-1.20) mg/dL AST (14-35) U/L ALT (10-49) U/L C-Reactive Protein (0.00-0.80) mg/dL Total Protein (6.2-8.2) g/dL Albumin (3.8-4.9) g/dL Albumin/Globulin Ratio (1.60-3.17) g/dL Renin Direct (3.1 - 57.1) pg/mL Ur Leukocyte Esterase (Negative) Urine WBC (0-5) /hpf Urine Yeast (Budding) (None) /hpf Ur Random Sodium (40-220) mmol/L Microbiology - Last 24 Hours (Table) 03/11/22 00:43 Urine Culture - Preliminary Urine,Voided Assessment and Plan Plan: Acute diabetic ketoacidosis, recovered. Currently, the patient is on Levemir insulin and sliding scale coverage. The patient is stable. Altered mental status, improved. Mental status is essentially within normal limits. Enterobacter cloacae urinary tract infection, on IV cefepime Leukocytosis, improved. Hypokalemia, improved. Anion gap metabolic acidosis secondary to above. New onset atrial fibrillation with rapid ventricular response, currently in sinus Poosible UGI , currently off anticoagulation, the patient was found to have some mild antral gastritis and esophagitis without evidence of any acute bleeding and EGD was completed today and hemoglobin remained stable. The patient will be restarted back on his diet. History of diabetes mellitus, on levemir Chronic and ongoing tobacco dependence. History of ADHD. Plan: No change in his overall condition This patient is extremely debilitated, lethargic and weak. He has developed stage II one on his coccyx for which a Opteform was applied The patient also has many boots to protect his heels as the patient has developed deep tissue injury to his feet bilaterally The patient is prepped for colonoscopy today and this will be completed Monitor hemoglobin No anticoagulants for now Continue IV Lasix to improve his volume status, switch the patient to Lasix until tomorrow Cardiac rhythm is sinus Continue IV cefepime We'll continue to follow
[2022-03-11 16:39] LABS: Glucose,Whole Blood 66 mg/dL (70-110)
[2022-03-11 17:47] LABS: Glucose,Whole Blood 90 mg/dL (70-110)
[2022-03-11] MEDS ORDERED: PROPOFOL 10 MG/ML 20 ML VIAL IV ONE (17:55)
[2022-03-11] MEDS ORDERED: IV FLUID CONTINUATION 200 ML IV ONE (17:56)
--- NOTE | 2022-03-11 18:09 | P.OP ---
Date of Procedure: 03/11/22 Preoperative Diagnosis: Anemia GI bleed Postoperative Diagnosis: Fecal impaction Procedure(s) Performed: Disimpaction Anesthesia: MAC Surgeon: Neal Pabon Pathology: none sent Condition: stable Disposition: PACU Description of Procedure: The patient was placed on the endoscopy table in the lateral position. He received IV sedation. The patient is developing a decubitus ulcer in his perianal area. Digital rectal exam was performed which revealed a large amount of melanotic dark stool in the rectum. It was obvious the patient did not have a bowel prep. A male disimpaction was performed some stool was removed. Patient was sent back to the floor. He will need to be reprepped in order to undergo colonoscopy.
[2022-03-11 19:41] LABS: Glucose,Whole Blood 186 mg/dL (70-110)
[2022-03-11 20:54] LABS: Glucose,Whole Blood 232 mg/dL (70-110)
[2022-03-12 07:42] LABS: Glucose,Whole Blood 155 mg/dL (70-110)
[2022-03-12 07:46] LABS: African American GFR (CKD) >90 (>60 ml/min/1.73 sqM); Anion Gap 4 mmol/L; Blood Urea Nitrogen 8 mg/dL (9-20); Calcium 7.3 mg/dL (8.4-10.2); Carbon Dioxide 33 mmol/L (22-30); Chloride 96 mmol/L (98-107); Glucose 141 mg/dL (74-99); Non-African American GFR(CKD) >90 (>60 ml/min/1.73 sqM); Potassium 3.6 mmol/L (3.5-5.1); Sodium 133 mmol/L (137-145)
[2022-03-12 07:57] LABS: Basophils % (A) 0 %; Eosinophils # (A) 0.2 k/uL (0-0.7); Eosinophils % (A) 2 %; HCT 26.9 % (39.0-53.0); HGB 8.8 gm/dL (13.0-17.5); Hypochromasia Slight; Lymphocytes # (A) 1.5 k/uL (1.0-4.8); Lymphocytes % (A) 14 %; MCH 28.1 pg (25.0-35.0); MCHC 32.6 g/dL (31.0-37.0); Mean Platelet Volume 7.3; Monocytes # (A) 0.4 k/uL (0-1.0); Monocytes % (A) 3 %; Neutrophils # (A) 8.7 k/uL (1.3-7.7); Neutrophils % (A) 80 %; Platelet Count 527 k/uL (150-450); RBC 3.12 m/uL (4.30-5.90); RDW 14.1 % (11.5-15.5); WBC 10.9 k/uL (3.8-10.6)
[2022-03-12] MEDS: CEFEPIME 2 GM in SODIUM CHLORIDE 0.9% 100 ML IVPB SCH ×2 (07:57→16:55)
[2022-03-12] MEDS: INSULIN ASPART (NovoLOG) 100 UNIT/ML VIAL SQ SCH ×4 (07:59→21:36)
[2022-03-12] MEDS: traMADol 50 MG TAB PO PRN (08:00)
[2022-03-12] MEDS: INSULIN DETEMIR (LEVEMIR) 100 UNIT/ML SYR SQ SCH (08:04)
--- NOTE | 2022-03-12 10:49 | P.PN ---
Subjective Progress Note Date: 03/12/22 Principal diagnosis: 1. 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 Bilateral lower extremity weakness Patient was seen at bedside this morning lying semirecumbent position. Patient appears somewhat fatigued during counter. Patient says he went for a colonoscopy yesterday, but said they were unable to do the procedure. Patient mentions he is still unable to move his RLE. Patient says he can move his left leg a bit. Patient denies saddle anesthesia. Patient denies loss of bowel/bladder control. Patient denies chest pain, fever, shortness breath, nausea, vomiting, change in vision. Objective - Vital Signs Vital signs: Vital Signs Temp 97.9 F 03/12/22 07:01 Pulse 74 03/12/22 07:01 Resp 24 03/12/22 07:01 BP 109/62 03/12/22 07:01 Pulse Ox 98 03/12/22 07:01 FiO2 21 03/04/22 07:22 Intake & Output 03/11/22 03/12/22 03/12/22 18:59 06:59 18:59 Intake Total 0 900 Output Total 1999 1651 300 Balance -1999 -751 -300 Intake: IV 0 Intake, IV Titration 100 Amount Cefepime 2 gm In Sodium 100 Chloride 0.9% 100 ml @ 25 mls/hr IVPB Q8HR [facility] Rx# :[id number] Oral 800 Output: Urine 1999 1650 300 Urine/Stool Mix 1 Other: Voiding Method Indwelling Catheter Indwelling Catheter Indwelling Catheter # Bowel Movements 2 - Exam Patient is somewhat lethargic during exam. Patient is alert and oriented 3 Inspection: Negative for any open fractures, significant ecchymosis/erythema/ulcers. Right upper extremity and bilateral lower extremities are somewhat edematous Sensation: Sensation is equal, symmetric, bilaterally intact throughout the upper and lower extremities on exam Palpation: Patient does have some tenderness to palpation along the paraspinal region in the lumbar spine and in midline. NTTP throughout rest exam. Range of motion: Patient has full range of motion bilateral upper extremities on exam. Patient is unable to flex/extend hips bilaterally on exam. Patient unable to flex/extend right knee. Patient is able to flex/extend left knee somewhat. Patient is able to wiggle toes in left lower extremity. Patient is unable to plantar/dorsiflex either ankle. Patient does have good range passive range of motion on exam and knee flexion/extension and hip flexion/extension. Motor: Bilateral upper extremities 4-/5 in tare worker strength bilaterally. 4+/5 in resisted shoulder elevation, external/internal rotation, elbow flexion/extension and wrist flexion/extension. Patient unable to perform motor exam in bilateral knees and hips and plantar/dorsiflexion bilaterally Neurovascular status: Radial pulse intact, 2+ bilaterally. Cap refill under 3 seconds in digits upper extremities. Special tests: Negative Pb's bilaterally. Negative clonus bilaterally. Negative Homans bilaterally. - Labs CBC & Chem 7: 03/12/22 07:09 03/12/22 07:09 Labs: Abnormal Lab Results - Last 24 Hours (Table) 03/11/22 03/11/22 03/11/22 Range/Units 08:25 11:14 16:37 WBC (3.8-10.6) k/uL RBC (4.30-5.90) m/uL Hgb (13.0-17.5) gm/dL Hct (39.0-53.0) % Plt Count (150-450) k/uL Neutrophils # (1.3-7.7) k/uL Sodium (137-145) mmol/L Chloride (98-107) mmol/L Carbon Dioxide 32.6 H (20.0-27.5) mmol/L Anion Gap 7.60 L (10.00-18.00) mmol/L BUN 5.8 L (9.0-27.0) mg/dL Creatinine 0.5 L (0.6-1.5) mg/dL BUN/Creatinine Ratio 11.19 L (12.00-20.00) Ratio Glucose 169 H (70-110) mg/dL POC Glucose (mg/dL) 211 H 66 L (70-110) mg/dL Calcium 7.5 L (8.7-10.3) mg/dL Magnesium 2.5 H (1.5-2.4) mg/dL Total Bilirubin <0.15 L (0.30-1.20) mg/dL AST 9 L (14-35) U/L ALT 9 L (10-49) U/L C-Reactive Protein 5.60 H (0.00-0.80) mg/dL Total Protein 5.2 L (6.2-8.2) g/dL Albumin 2.0 L (3.8-4.9) g/dL Albumin/Globulin Ratio 0.62 L (1.60-3.17) g/dL 03/11/22 03/11/22 03/12/22 Range/Units 19:39 20:53 07:09 WBC 10.9 H (3.8-10.6) k/uL RBC 3.12 L (4.30-5.90) m/uL Hgb 8.8 L (13.0-17.5) gm/dL Hct 26.9 L (39.0-53.0) % Plt Count 527 H (150-450) k/uL Neutrophils # 8.7 H (1.3-7.7) k/uL Sodium (137-145) mmol/L Chloride (98-107) mmol/L Carbon Dioxide (20.0-27.5) mmol/L Anion Gap (10.00-18.00) mmol/L BUN (9.0-27.0) mg/dL Creatinine (0.6-1.5) mg/dL BUN/Creatinine Ratio (12.00-20.00) Ratio Glucose (70-110) mg/dL POC Glucose (mg/dL) 186 H 232 H (70-110) mg/dL Calcium (8.7-10.3) mg/dL Magnesium (1.5-2.4) mg/dL Total Bilirubin (0.30-1.20) mg/dL AST (14-35) U/L ALT (10-49) U/L C-Reactive Protein (0.00-0.80) mg/dL Total Protein (6.2-8.2) g/dL Albumin (3.8-4.9) g/dL Albumin/Globulin Ratio (1.60-3.17) g/dL 03/12/22 03/12/22 Range/Units 07:09 07:40 WBC (3.8-10.6) k/uL RBC (4.30-5.90) m/uL Hgb (13.0-17.5) gm/dL Hct (39.0-53.0) % Plt Count (150-450) k/uL Neutrophils # (1.3-7.7) k/uL Sodium 133 L (137-145) mmol/L Chloride 96 L (98-107) mmol/L Carbon Dioxide 33 H (20.0-27.5) mmol/L Anion Gap (10.00-18.00) mmol/L BUN 8 L (9.0-27.0) mg/dL Creatinine 0.58 L (0.6-1.5) mg/dL BUN/Creatinine Ratio (12.00-20.00) Ratio Glucose 141 H (70-110) mg/dL POC Glucose (mg/dL) 155 H (70-110) mg/dL Calcium 7.3 L (8.7-10.3) mg/dL Magnesium (1.5-2.4) mg/dL Total Bilirubin (0.30-1.20) mg/dL AST (14-35) U/L ALT (10-49) U/L C-Reactive Protein (0.00-0.80) mg/dL Total Protein (6.2-8.2) g/dL Albumin (3.8-4.9) g/dL Albumin/Globulin Ratio (1.60-3.17) g/dL Microbiology - Last 24 Hours (Table) 03/11/22 08:25 Blood Culture - Preliminary Blood No Growth after 24 hours 03/11/22 00:43 Urine Culture - Preliminary Urine,Voided Yeast species Assessment and Plan Assessment: 1. 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 Bilateral lower extremity weakness Plan: 1. Degenerative disc disease; central spinal cord stenosis at L2-L5; Bilateral lower extremity weakness - patient seen at bedside this morning. MRI of thoracic is lumbar spine have been reviewed. There is degenerative disc disease throughout the spine as well as some moderate-severe spinal canal stenosis from L2 through L5 and degenerativ echanges in cervical spine. Colonoscopy was unable to be performed yesterday due to fecal impaction. We will await until gen surg is able to perform colonscopy before proceeding with any potential orthopedic intervention. We will continue to follow patient with plan for potential spine surgery in the near future - L2-pelvis decompression and fusion. We will continue to follow patient during his stay. 2. Appreciate medical, pulmonology, cardiology/vascular management, nephrology, gen surg management. 3. Pain management - Tylenol; tramadol 4. DVT prophylaxis - Lovenox 5. GI prophylaxis - Maalox; protonix 6. PT/OT - weightbearing as tolerated with walker Time with Patient: Less than 30
[2022-03-12] MEDS ORDERED: POTASSIUM CHLORIDE ER 20 MEQ TAB.ER PO STA (11:18)
--- NOTE | 2022-03-12 11:20 | P.PN ---
Subjective Patient is seen in follow-up for hyponatremia. Sodium level 133 today. Receiving IV Lasix. Nonoliguric. Has a Zee catheter. On full liquid diet. Blood pressure stable. Edema improved. Vital signs are stable. General: Awake. No acute distress. HEENT: Head exam is unremarkable. LUNGS: Breath sounds decreased. HEART: Rate and Rhythm are regular. ABDOMEN: Soft, no distention. EXTREMITITES: Trace edema. Objective - Vital Signs Vital signs: Vital Signs Temp 97.9 F 03/12/22 07:01 Pulse 74 03/12/22 07:01 Resp 24 03/12/22 07:01 BP 109/62 03/12/22 07:01 Pulse Ox 98 03/12/22 07:01 FiO2 21 03/04/22 07:22 Intake & Output 03/11/22 03/12/22 03/12/22 18:59 06:59 18:59 Intake Total 0 900 Output Total 2000 1651 300 Balance -1999 -751 -300 Intake: IV 0 Intake, IV Titration 100 Amount Cefepime 2 gm In Sodium 100 Chloride 0.9% 100 ml @ 25 mls/hr IVPB Q8HR [facility] Rx# :[id number] Oral 800 Output: Urine 1999 1650 300 Urine/Stool Mix 1 Other: Voiding Method Indwelling Catheter Indwelling Catheter Indwelling Catheter # Bowel Movements 2 - Labs CBC & Chem 7: 03/12/22 07:09 03/12/22 07:09 Labs: Abnormal Lab Results - Last 24 Hours (Table) 03/11/22 03/11/22 03/11/22 Range/Units 08:25 11:14 16:37 WBC (3.8-10.6) k/uL RBC (4.30-5.90) m/uL Hgb (13.0-17.5) gm/dL Hct (39.0-53.0) % Plt Count (150-450) k/uL Neutrophils # (1.3-7.7) k/uL Sodium (137-145) mmol/L Chloride (98-107) mmol/L Carbon Dioxide 32.6 H (20.0-27.5) mmol/L Anion Gap 7.60 L (10.00-18.00) mmol/L BUN 5.8 L (9.0-27.0) mg/dL Creatinine 0.5 L (0.6-1.5) mg/dL BUN/Creatinine Ratio 11.19 L (12.00-20.00) Ratio Glucose 169 H (70-110) mg/dL POC Glucose (mg/dL) 211 H 66 L (70-110) mg/dL Calcium 7.5 L (8.7-10.3) mg/dL Magnesium 2.5 H (1.5-2.4) mg/dL Total Bilirubin <0.15 L (0.30-1.20) mg/dL AST 9 L (14-35) U/L ALT 9 L (10-49) U/L C-Reactive Protein 5.60 H (0.00-0.80) mg/dL Total Protein 5.2 L (6.2-8.2) g/dL Albumin 2.0 L (3.8-4.9) g/dL Albumin/Globulin Ratio 0.62 L (1.60-3.17) g/dL 03/11/22 03/11/22 03/12/22 Range/Units 19:39 20:53 07:09 WBC 10.9 H (3.8-10.6) k/uL RBC 3.12 L (4.30-5.90) m/uL Hgb 8.8 L (13.0-17.5) gm/dL Hct 26.9 L (39.0-53.0) % Plt Count 527 H (150-450) k/uL Neutrophils # 8.7 H (1.3-7.7) k/uL Sodium (137-145) mmol/L Chloride (98-107) mmol/L Carbon Dioxide (20.0-27.5) mmol/L Anion Gap (10.00-18.00) mmol/L BUN (9.0-27.0) mg/dL Creatinine (0.6-1.5) mg/dL BUN/Creatinine Ratio (12.00-20.00) Ratio Glucose (70-110) mg/dL POC Glucose (mg/dL) 186 H 232 H (70-110) mg/dL Calcium (8.7-10.3) mg/dL Magnesium (1.5-2.4) mg/dL Total Bilirubin (0.30-1.20) mg/dL AST (14-35) U/L ALT (10-49) U/L C-Reactive Protein (0.00-0.80) mg/dL Total Protein (6.2-8.2) g/dL Albumin (3.8-4.9) g/dL Albumin/Globulin Ratio (1.60-3.17) g/dL 03/12/22 03/12/22 Range/Units 07:09 07:40 WBC (3.8-10.6) k/uL RBC (4.30-5.90) m/uL Hgb (13.0-17.5) gm/dL Hct (39.0-53.0) % Plt Count (150-450) k/uL Neutrophils # (1.3-7.7) k/uL Sodium 133 L (137-145) mmol/L Chloride 96 L (98-107) mmol/L Carbon Dioxide 33 H (20.0-27.5) mmol/L Anion Gap (10.00-18.00) mmol/L BUN 8 L (9.0-27.0) mg/dL Creatinine 0.58 L (0.6-1.5) mg/dL BUN/Creatinine Ratio (12.00-20.00) Ratio Glucose 141 H (70-110) mg/dL POC Glucose (mg/dL) 155 H (70-110) mg/dL Calcium 7.3 L (8.7-10.3) mg/dL Magnesium (1.5-2.4) mg/dL Total Bilirubin (0.30-1.20) mg/dL AST (14-35) U/L ALT (10-49) U/L C-Reactive Protein (0.00-0.80) mg/dL Total Protein (6.2-8.2) g/dL Albumin (3.8-4.9) g/dL Albumin/Globulin Ratio (1.60-3.17) g/dL Microbiology - Last 24 Hours (Table) 03/11/22 08:25 Blood Culture - Preliminary Blood No Growth after 24 hours 03/11/22 00:43 Urine Culture - Preliminary Urine,Voided Yeast species Assessment and Plan Plan: Assessment: 1. Hyponatremia. Hypervolemic. Sodium level 133 today. Also component of poor solute intake. Urine sodium low at 24 and urine osmolality low at 71. TSH normal. Cortisol level was not low. 2. Right adrenal mass suggestive of benign adrenal adenoma on CAT scan done 03/09/2022. Doubt hyperaldosteronism state as patient has no history of hypertension and blood pressure is fairly well controlled without any antihypertensive meds. Cortisol level normal. Serum aldosterone 5.1. Renin less than 2.1. 3. Metabolic alkalosis secondary to bicarb supplementation and diuresis. Bicarb supplementation stopped 03/09/2022. Stable. 4. Central spinal cord stenosis. Surgery pending. 5. Anemia. Concern for GI bleed. EGD showed mild gastritis without any acute bleed. Colonoscopy pending. Hemoglobin 8.8 today. Iron deficiency noted. receiving IV iron. 6. Diabetes mellitus. 7. Fluid overload. Improved with diuresis. 8. Hypokalemia from diuresis. 9. UTI. Urine culture positive for Enterobacter and Betty. On antibiotics. Plan: Maintain IV Lasix - decrease frequency to once daily. 1200 mL fluid restriction - change to 1500 mL per patient's request. Blood sugar control. Follow-up plasma metanephrines. Replace potassium. Diet advanced by surgery to full liquid.
[2022-03-12 11:36] LABS: Glucose,Whole Blood 121 mg/dL (70-110)
--- NOTE | 2022-03-12 11:50 | P.PN ---
Subjective Progress Note Date: 03/11/22 Principal diagnosis: Enterobacter catheter associated UTI Patient is a 62 year old male with initial presentation hospital 10 07/30/2003 palpitation and shortness of breath patient did have a low-grade fever and a positive urine culture with Enterobacter. On today's evaluation that is 03/11/2022, the patient is afebrile this morning the patient is breathing comfortably on room air, the patient denies chest pain or shortness of breath or cough no abdominal pain no diarrhea Objective - Vital Signs Vital signs: Vital Signs Temp 98.4 F 03/11/22 12:30 Pulse 74 03/11/22 12:30 Resp 20 03/11/22 12:30 BP 110/66 03/11/22 12:30 Pulse Ox 99 03/11/22 12:30 FiO2 21 03/04/22 07:22 Intake & Output 03/10/22 03/11/22 03/11/22 18:59 06:59 18:59 Intake Total 558 Output Total 2550 6100 Weight 76.3 kg Intake: Intake, IV Titration 200 Amount Cefepime 2 gm In Sodium 100 Chloride 0.9% 100 ml @ 25 mls/hr IVPB Q8HR [facility] Rx# :[id number] Sodium Ferric Gluconat- 100 Sucrose 125 mg In Sodium Chloride 0.9% 100 ml @ 100 mls/hr IVPB DAILY [facility] Rx#:[id number] Oral 358 Output: Urine 2550 6100 Other: Voiding Method Indwelling Catheter Indwelling Catheter Indwelling Catheter # Bowel Movements 1 2 - Exam GENERAL DESCRIPTION: A middle-aged male lying in bed in no distress RESPIRATORY SYSTEM: Unlabored breathing , decreased breath sounds at bases HEART: S1 S2 regular rate and rhythm , ABDOMEN: Soft , no tenderness EXTREMITIES: No edema feet - Labs CBC & Chem 7: 03/12/22 07:09 03/12/22 07:09 Labs: Abnormal Lab Results - Last 24 Hours (Table) 03/09/22 03/10/22 03/11/22 Range/Units 11:09 18:28 00:43 RBC (4.30-5.90) m/uL Hgb (13.0-17.5) gm/dL Hct (39.0-53.0) % Plt Count (150-450) k/uL Carbon Dioxide (20.0-27.5) mmol/L Anion Gap (10.00-18.00) mmol/L BUN (9.0-27.0) mg/dL Creatinine (0.6-1.5) mg/dL BUN/Creatinine Ratio (12.00-20.00) Ratio Glucose (70-110) mg/dL POC Glucose (mg/dL) (70-110) mg/dL Calcium (8.7-10.3) mg/dL Magnesium (1.5-2.4) mg/dL Total Bilirubin (0.30-1.20) mg/dL AST (14-35) U/L ALT (10-49) U/L C-Reactive Protein (0.00-0.80) mg/dL Total Protein (6.2-8.2) g/dL Albumin (3.8-4.9) g/dL Albumin/Globulin Ratio (1.60-3.17) g/dL Renin Direct <2.1 L (3.1 - 57.1) pg/mL Ur Leukocyte Esterase Large H (Negative) Urine WBC 36 H (0-5) /hpf Urine Yeast (Budding) Many H (None) /hpf Ur Random Sodium 24 L (40-220) mmol/L 03/11/22 03/11/22 03/11/22 Range/Units 07:11 08:25 08:25 RBC 3.37 L (4.30-5.90) m/uL Hgb 9.4 L (13.0-17.5) gm/dL Hct 28.7 L (39.0-53.0) % Plt Count 544 H (150-450) k/uL Carbon Dioxide 32.6 H (20.0-27.5) mmol/L Anion Gap 7.60 L (10.00-18.00) mmol/L BUN 5.8 L (9.0-27.0) mg/dL Creatinine 0.5 L (0.6-1.5) mg/dL BUN/Creatinine Ratio 11.19 L (12.00-20.00) Ratio Glucose 169 H (70-110) mg/dL POC Glucose (mg/dL) 160 H (70-110) mg/dL Calcium 7.5 L (8.7-10.3) mg/dL Magnesium 2.5 H (1.5-2.4) mg/dL Total Bilirubin <0.15 L (0.30-1.20) mg/dL AST 9 L (14-35) U/L ALT 9 L (10-49) U/L C-Reactive Protein 5.60 H (0.00-0.80) mg/dL Total Protein 5.2 L (6.2-8.2) g/dL Albumin 2.0 L (3.8-4.9) g/dL Albumin/Globulin Ratio 0.62 L (1.60-3.17) g/dL Renin Direct (3.1 - 57.1) pg/mL Ur Leukocyte Esterase (Negative) Urine WBC (0-5) /hpf Urine Yeast (Budding) (None) /hpf Ur Random Sodium (40-220) mmol/L 03/11/22 Range/Units 11:14 RBC (4.30-5.90) m/uL Hgb (13.0-17.5) gm/dL Hct (39.0-53.0) % Plt Count (150-450) k/uL Carbon Dioxide (20.0-27.5) mmol/L Anion Gap (10.00-18.00) mmol/L BUN (9.0-27.0) mg/dL Creatinine (0.6-1.5) mg/dL BUN/Creatinine Ratio (12.00-20.00) Ratio Glucose (70-110) mg/dL POC Glucose (mg/dL) 211 H (70-110) mg/dL Calcium (8.7-10.3) mg/dL Magnesium (1.5-2.4) mg/dL Total Bilirubin (0.30-1.20) mg/dL AST (14-35) U/L ALT (10-49) U/L C-Reactive Protein (0.00-0.80) mg/dL Total Protein (6.2-8.2) g/dL Albumin (3.8-4.9) g/dL Albumin/Globulin Ratio (1.60-3.17) g/dL Renin Direct (3.1 - 57.1) pg/mL Ur Leukocyte Esterase (Negative) Urine WBC (0-5) /hpf Urine Yeast (Budding) (None) /hpf Ur Random Sodium (40-220) mmol/L Microbiology - Last 24 Hours (Table) 03/11/22 00:43 Urine Culture - Preliminary Urine,Voided Assessment and Plan (1) Catheter-associated urinary tract infection Current Visit: Yes Status: Acute Code(s): T83.511A - I/I REACT D/T INDWEL LING URETHRAL CATHETER, INIT; N39.0 - URINARY TRACT INFECTION, SITE NOT SPECIFIED SNOMED Code(s): 004081546 Plan: 1patient with a low-grade fever positive UA and urinary symptoms retention requiring Zee catheter placement concerning for a symptomatic UTI urine has been finalized with Enterobacter and this patient is currently on amiodarone using quinolones can lead to QT prolongation 2patient to continue with cefepime 2 g every 8 hours , repeat culture with vashti and diflucan cannot be added because of amiodarone , the patient still have a positive UA however the patient is afebrile white count is normal we will monitor the patient closely Time with Patient: Less than 30
[2022-03-12] MEDS: PANTOPRAZOLE 40 MG/10 ML VIAL IVP SCH ×2 (13:17→21:35)
[2022-03-12] MEDS: NICOTINE 21MG/24HR PATCH TRANSDERM SCH (13:17)
[2022-03-12] MEDS: METOPROLOL TARTRATE 50 MG TAB PO SCH (13:17)
[2022-03-12] MEDS: AMIODARONE 200 MG TAB PO SCH ×2 (13:17→22:43)
[2022-03-12] MEDS: SODIUM FERRIC GLUCONAT-SUCROSE 125 MG in SODIUM CHLORIDE 0.9% 100 ML IVPB SCH (13:18)
[2022-03-12] MEDS: FOLIC ACID 1 MG TAB PO SCH (13:18)
--- NOTE | 2022-03-12 13:45 | P.PN ---
Subjective Progress Note Date: 03/12/22 CHIEF COMPLAINT: Anemia and black stool HISTORY OF PRESENT ILLNESS: Patient had EGD completed showing mild antral gastritis, mild esophagitis and no evidence of any upper GI bleed. Patient was scheduled to have colonoscopy yesterday. However he was found to have a fecal impaction. He underwent disimpaction by Dr. al with evidence of melanotic stools. Patient reports diffuse abdominal pain. Denies any nausea or vomiting. Currently on clear liquid diet. Afebrile. WBC 10.9 hemoglobin down from 9.4- 8.8 platelets 527 sodium was 133 creatinine 0.58 Patient seen and examined with Dr. al PHYSICAL EXAM: VITAL SIGNS: Reviewed. GENERAL: Well-developed in no acute distress. HEENT: No sclera icterus. Extraocular movements grossly intact. Moist buccal mucosa. Head is atraumatic, normocephalic. ABDOMEN: Soft. Nondistended. Diffuse tenderness NEUROLOGIC: Alert and oriented. Cranial nerves II through XII grossly intact. ASSESSMENT: 1. Anemia with black tarry stool 2. Fecal impaction status post disimpaction with evidence of melanotic stools 3. Incidental finding of hydropic gallbladder with cholelithiasis PLAN: -Patient will need repeat colonoscopy which will be scheduled for 03/15/2022 -Continue patient on a clear liquid diet in the meantime -Start GoLYTELY prep on Tuesday -Ensure clear added for protein drinks -Continue to monitor hemoglobin -Continue to monitor for any signs or symptoms of bleeding -Hyponatremia management per nephrology -Orthopedic service is holding off on the laminectomy in order for patient to proceed with colonoscopy Physician Hospital Technician note has been reviewed by physician. Signing provider agrees with the documented findings, assessment, and plan of care. Objective - Vital Signs Vital signs: Vital Signs Temp 98.4 F 03/12/22 13:31 Pulse 77 03/12/22 13:31 Resp 20 03/12/22 13:31 BP 100/62 03/12/22 13:31 Pulse Ox 99 03/12/22 13:31 FiO2 21 03/04/22 07:22 Intake & Output 03/11/22 03/12/22 03/12/22 18:59 06:59 18:59 Intake Total 0 900 Output Total 1999 9507 823 Balance -1999 -035 -844 Intake: IV 0 Intake, IV Titration 100 Amount Cefepime 2 gm In Sodium 100 Chloride 0.9% 100 ml @ 25 mls/hr IVPB Q8HR [facility] Rx# :[id number] Oral 800 Output: Urine 2000 1650 700 Urine/Stool Mix 1 Other: Voiding Method Indwelling Catheter Indwelling Catheter Indwelling Catheter # Bowel Movements 2 - Labs CBC & Chem 7: 03/12/22 07:09 03/12/22 07:09 Labs: Abnormal Lab Results - Last 24 Hours (Table) 03/11/22 03/11/22 03/11/22 Range/Units 16:37 19:39 20:53 WBC (3.8-10.6) k/uL RBC (4.30-5.90) m/uL Hgb (13.0-17.5) gm/dL Hct (39.0-53.0) % Plt Count (150-450) k/uL Neutrophils # (1.3-7.7) k/uL Sodium (137-145) mmol/L Chloride (98-107) mmol/L Carbon Dioxide (22-30) mmol/L BUN (9-20) mg/dL Creatinine (0.66-1.25) mg/dL Glucose (74-99) mg/dL POC Glucose (mg/dL) 66 L 186 H 232 H (70-110) mg/dL Calcium (8.4-10.2) mg/dL 03/12/22 03/12/22 03/12/22 Range/Units 07:09 07:09 07:40 WBC 10.9 H (3.8-10.6) k/uL RBC 3.12 L (4.30-5.90) m/uL Hgb 8.8 L (13.0-17.5) gm/dL Hct 26.9 L (39.0-53.0) % Plt Count 527 H (150-450) k/uL Neutrophils # 8.7 H (1.3-7.7) k/uL Sodium 133 L (137-145) mmol/L Chloride 96 L (98-107) mmol/L Carbon Dioxide 33 H (22-30) mmol/L BUN 8 L (9-20) mg/dL Creatinine 0.58 L (0.66-1.25) mg/dL Glucose 141 H (74-99) mg/dL POC Glucose (mg/dL) 155 H (70-110) mg/dL Calcium 7.3 L (8.4-10.2) mg/dL 03/12/22 Range/Units 11:35 WBC (3.8-10.6) k/uL RBC (4.30-5.90) m/uL Hgb (13.0-17.5) gm/dL Hct (39.0-53.0) % Plt Count (150-450) k/uL Neutrophils # (1.3-7.7) k/uL Sodium (137-145) mmol/L Chloride (98-107) mmol/L Carbon Dioxide (22-30) mmol/L BUN (9-20) mg/dL Creatinine (0.66-1.25) mg/dL Glucose (74-99) mg/dL POC Glucose (mg/dL) 121 H (70-110) mg/dL Calcium (8.4-10.2) mg/dL Microbiology - Last 24 Hours (Table) 03/11/22 00:43 Urine Culture - Final Urine,Voided Betty albicans 03/11/22 08:25 Blood Culture - Preliminary Blood No Growth after 24 hours
--- NOTE | 2022-03-12 14:16 | P.PN ---
Progress Note - Text Progress Note Date: 03/12/22 Chief Complaint: Decreased responsiveness This is a 62-year-old patient, follows with Dr. Mendez. Chronic stable medical conditions include ADHD, herniated disc lower back, smoker. Patient's son at the bedside. Patient yesterday took his medication was going to the bathroom and the son noticed that he was feeling looking weak. He became less responsive. Never passed out. Shaky. No fever or chills reported. EMS was called out. Patient is found to be in atrial fibrillation with rapid ventricular rate. In the ER started on IV heparin, given adenosine, later put on IV Cardizem. Also found to be in DKA. Put on insulin drip. Potassium was very low NG tube had to be pacemaker placement. Tired. Most of the history of pain medicine at the bedside. Patient rather tired and lethargic. Admitted with new onset of atrial fibrillation uncontrolled, diabetic k etoacidosis, acute metabolic encephalopathy, severe hypokalemia. Started on Cardizem drip, IV heparin, insulin drip. NG tube was placed for potassium replacement. March 03: ICU: Patient went back into sinus rhythm. Did have 3-4 minutes burst of A. fib with rapid ventricular rate and rhythm back in sinus rhythm. IV heparin is being changed over to subcu Lovenox 70 mg every 12. Insulin drip is discontinued. Put on Levemir 10 units. NG tube in place. Potassium being replaced. Still patient is rather lethargic. We'll get a computed tomography scan of the brain. And EEG. March 04: ICU: Remains in sinus rhythm. Has been off Cardizem drip. Slightly more awake but still lethargic. Attempted to answer questions. Potassium down to 2.7. Potassium being replaced. At magnesium. By mouth amiodarone. On IV ceftriaxone for possible UTI. Sinus rhythm. Stop Catapres increase Lopressor to 100 mg twice a day. Check ammonia level. Phosphorus being replaced. Consult neurology. CT brain negative for stroke. EEG results pending. March 05: ICU. Laying in bed. Weak. EEG showed encephalopathy. Weakness in all the limbs. Just ordered able to lift his arms. [place] to be from electrolyte abnormalities. Able to answer questions slowly. Did tolerate some ice chips. Nurse will try to feed the patient. Lethargic but more awake. PTOT consulted. Unstageable bluish decolorization of the sacrum and heels. NG tube discontinued. IV fluids. 03/06/2020: Patient remains in the ICU improving slowly and gradually. Still had fever yesterday of 100.7, no more fever today. Other vitals are stable. Patient remains on ceftriaxone and he is been treated for UTI with Enterobacter. He still has fever as of yesterday therefore we will check renal ultrasound. Corcalcitonin 1.03, His altered mentation most likely is secondary to metabolic/toxic encephalopathy and UTI, neurologist on the case and he ordered MRI of the thoracolumbar spine to rule out spinal stenosis, results showing multilevel lumbar spinal stenosis but is mild and there is no spinal stenosis of the thoracic spine. Cardiology the case for new-onset A. fib, currently on Lovenox and amiodarone and rate controlled. Distal on IV fluids under lactate 125 Ulcers on Protonix 40 mg oral twice a day and Lovenox 70 mg twice daily. Glucose controlled on Levemir 14 units. His hemoglobin A1c is 12.9% and his DKA on admission resolved 03/07/2022 Patient still feels generally weak and lethargic. However he has good appetite. He denies chest pain or abdominal pain. No dyspnea. He looks comfortable in bed. He had 1 small bowel movement, no diarrhea. Zee catheter in place with yellow urine. Patient procalcitonin significantly improved down to 0.15, however his culture showed Enterobacter resistant to ceftriaxone. Patient currently on oral Levaquin. We going to consult infectious disease team. WBC is 11.3. Sodium 129. Patient fever on admission has subsided since then. Neurologist on the case and recommended EMG and nerve conduction study as an outpatient. Patient currently on Lovenox 70 mg twice a day, Levemir insulin 14 units and amiodarone. Also he is on oral Protonix twice daily and IV fluids under lactate at 125 Patient tolerates some diet, lower rate elected down to 75 mL/h renal ultrasound order, follow-up results 03/08/2022 Patient is seen and evaluated in follow-up this morning with multiple medical consultations including neurology, pulmonary, infectious disease, orthopedics following. Plan is for possible lumbar decompression sometime this week. Have consulted general surgery as per nursing report patient had a large dark tarry stool this morning. Hemoglobin is stable at 9.7. Patient's sodium is 129 with a potassium of 3.7 current creatinine is stable at 0.42. Blood sugars have been elevated and will continue current regimen. WBC remains elevated and patient is maintained on cefepime and will continue. Oral intake continues to be fair to poor and patient continues to report back pain. Patient has been febrile. Patient denies chest pain or shortness of breath. Patient is extremely lethargic with generalized edema noted throughout. Will consult nephrology for hyponatremia 03/09/2022 Patient is seen and evaluated in follow-up this morning. Multiple medical consultations following including orthopedics, general surgery, nephrology, pulmonary, and infectious disease. Plan was for tentative decompression surgery with orthopedics although sodium continues to be low and nursing reported dark tarry stools and is being evaluated with EGD/colonoscopy that is to be done on . Patient will start bowel prep tomorrow and will monitor closely of labs. Abdomen ultrasound was ordered as well and patient is continue with indwelling Zee catheter. Patient currently maintained on antibiotics and will continue. Patient is maintained on clear liquids and tolerating appears more awake and alert than yesterday. Patient continues to be weak and denies chest pain or shortness of breath. Patient labs currently pending and nephrology is following for hyponatremia and was started on Lasix. 03/10/2022: I resumed care of the patient today Tolerating clear liquids. Tired. Pending surgery-Dr. Newton . Back pain controlled. Patient's had black starry stools. For colonoscopy per Dr. Pabon. 03/11/2022: Patient had soft brown stool today. Some abdominal discomfort. Pending colonoscopy today. Received bowel preparation. Patient received 1 dose of Samsca yesterday. Also IV Ferrlecit. 03/12/2022. Colonoscopic could not be done yesterday because of poor bowel preparation. Dark stool was encountered during start of colonoscopy. Patient back on clear liquids. Now rescheduled for Tuesday. Active Medications Acetaminophen (Acetaminophen Tab 325 Mg Tab) 650 mg PO Q6HR PRN PRN Reason: Mild Pain or Fever > 100.5 Last Admin: 03/08/22 14:52 Dose: 650 mg Al Hydroxide/Mg Hydroxide (Mag Hydrox/Al Hydrox/Simeth 30 Ml Cup) 15 ml PO Q6HR PRN PRN Reason: Indigestion Amiodarone HCl (Amiodarone 200 Mg Tab) 200 mg PO BID [facility] Last Admin: 03/12/22 13:17 Dose: 200 mg Dextrose/Water (Dextrose 50% Syringe 50 Ml) 25 ml IVP PER PROTOCOL PRN; Protocol PRN Reason: Hypoglycemia Last Admin: 03/11/22 16:43 Dose: 25 ml Dextrose/Water (Dextrose 50% Syringe 50 Ml) 50 ml IVP PER PROTOCOL PRN; Protoc ol PRN Reason: Hypoglycemia Folic Acid (Folic Acid 1 Mg Tab) 1 mg PO DAILY [facility] Last Admin: 03/12/22 13:18 Dose: 1 mg Furosemide (Furosemide 10 Mg/Ml 4 Ml Vial) 40 mg IV DAILY [facility] Cefepime HCl 2 gm/ Sodium (Chloride) 100 mls @ 25 mls/hr IVPB Q8HR [facility]; Protocol Last Admin: 03/12/22 07:57 Dose: 25 mls/hr Ferric Sodium Gluconate 125 mg (/ Sodium Chloride) 110 mls @ 100 mls/hr IVPB DAILY [facility] Stop: 03/13/22 12:01 Last Admin: 03/12/22 13:18 Dose: 100 mls/hr Insulin Aspart (Insulin Aspart (Novolog) 100 Unit/Ml Vial) 0 unit SQ ACHS [facility]; Protocol Last Admin: 03/12/22 11:50 Dose: Not Given Insulin Detemir (Insulin Detemir (Levemir) 100 Unit/Ml Syr) 14 unit SQ DAILY@0700 [facility] Last Admin: 03/12/22 08:04 Dose: 14 unit Metoprolol Tartrate (Metoprolol Tartrate 50 Mg Tab) 100 mg PO BID [facility] Last Admin: 03/12/22 13:17 Dose: 100 mg Miscellaneous Information (Potassium Replacement Protocol 1 Each Misc) 1 each MISCELLANE DAILY PRN; Protocol PRN Reason: Per Protocol Miscellaneous Information (Phosphorus Replacement Protoco 1 Each Misc) 1 each MISCELLANE DAILY PRN; Protocol PRN Reason: Per Protocol Naloxone HCl (Naloxone 0.4 Mg/Ml 1 Ml Vial) 0.2 mg IV Q2M PRN PRN Reason: Opioid Reversal Nicotine (Nicotine 21mg/24hr Patch) 1 patch TRANSDERM DAILY [facility] Last Admin: 03/12/22 13:17 Dose: 1 patch Ondansetron HCl (Ondansetron 4 Mg/2 Ml Vial) 4 mg IVP Q8HR PRN PRN Reason: Nausea And Vomiting Pantoprazole Sodium (Pantoprazole 40 Mg/10 Ml Vial) 40 mg IVP BID [facility] Last Admin: 03/12/22 13:17 Dose: 40 mg Polyethylene Glycol/Electrolytes (Peg 3350 (236 Gm/Btl) + Lytes 4,000 Ml Bottle) 4,000 ml PO ONCE ONE Stop: 03/14/22 09:01 Tramadol HCl (Tramadol 50 Mg Tab) 50 mg PO QID PRN PRN Reason: Pain Last Admin: 03/12/22 08:00 Dose: 50 mg Past medical history to include: Diabetes, possible ADHD, chronic low back pain, herniated disc, Social history: Son lives with the patient. 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 Smokes about a pack a day. Alcohol occasionally. Physical examination: VITAL SIGNS: 98.4, 77, 20, 100/62, 99% room air GENERAL: Tired, laying in bed EYES: Pupils equal. Conjunctiva normal. HEENT: External appearance of nose and ears normal, oral cavity mucous membranes moist NECK: JVD not raised; masses not palpable. HEART: Heart sounds normal; no edema. LUNGS: Respiratory rate normal; decreased breath sounds. ABDOMEN: Soft, nontender, liver spleen not palpable, no masses palpable. PSYCH: Answering questions appropriately INVESTIGATIONS, reviewed in the clinical context: March 12: WBC 10.9 hemoglobin 8.8 progression 3.6 BUN 8 creatinine 0.58 March 11: WBC 8.4 hemoglobin 9.4 platelets 544 potassium 3.9 creatinine 0.5 March 10: WBC 11.7 hemoglobin 9.1 platelets 519 sodium 127 potassium 3.9 BUN 6 creatinine 0.51 serum osmolality 271 HbA1c: 12.9 Computed tomography scan brain: No acute processes reported March 04: WBC 16.6 hemoglobin 9.8 potassium 2.7 creatinine 0.42 phosphorus 1.6 March 03: Sodium 136 potassium 3 BUN 22 creatinine 0.50 albumin 2.2 WBC 36.7 hemoglobin 14.7 platelets 470 potassium 2.7 sodium 128 bicarb 9 BUN 25 crit 0.89 blood glucose 564 UA positive for ketone 4+, leukoesterase negative for nitrite Urine drug screen: Negative Serum acetone positive EKG tracing personally reviewed by me-heart rate 171, ST segment depression Chest x-ray film personally reviewed by me-prominent pulmonary artery. Elevated right diaphragm. 2-D echocardiogram: EF 55-60%. Assessment and plan: -Paroxysmal atrial fibrillation with a rapid ventricular rate, back in sinus rhythm Lopressor 100 mg twice a day. Oral amiodarone -IV heparin -discontinued Follow PTT -Diabetic ketoacidosis: Resolved -Black starry stools/acute GI bleed.. EGD showed mild gastritis and esophagitis. Coloscopy rescheduled for Tuesday per Dr. Pabon -Diabetes mellitus type 2, uncontrolled with hyperglycemia Levemir 14 units subcu daily. Follow Accu-Cheks -Acute metabolic encephalopathy, multifactorial, better Computed tomography scan of brain unremarkable.. EEG-encephalopathy. No seizure.. Follow with Neurology -Severe hypokalemia: Better Aggressive replacement of potassium. Follow-up magnesia. -Hypophosphatemia: Better Replace phosphorus -COPD in a current smoker Bronchodilators as needed -Chronic nicotine dependence, cigarette smoker Nicotine patch -Hypoosmolar, hyponatremia: Better Hold of free fluid intake. Received IV Samsca. -L2 S1 laminectomy and decompression, with lower extremity weakness for central spinal cord stenosis. Per Dr. Newton Coloscopy rescheduled for Tuesday. Other medications to continue. K liquid diet.
--- NOTE | 2022-03-12 14:50 | P.PN ---
Subjective Progress Note Date: 03/12/22 On 03/09/2022, There is a case of new onset atrial fibrillation, DKA, in addition to a gram-negative UTI. The patient came initially to the intensive care unit because of palpitation and shortness of breath patient was stabilized. Furthermore, he was sent to the medical floor. He did have an episode of upper GI bleed and for that reason he was kept nothing by mouth overnight and the patient's was supposed to do today. In fact , the patient completed an EGD and he was found to have mild gastritis. Hemoglobin is stable and there is no other episode of GI bleeding. Hemoglobin is currently at 9.3. The patient has a that, 4.8 with a platelet count of 453. Sodium was at 129, bicarbonate of 33 with a BUN of 10 and a creatinine of 0.5. The patient has Enterobacter cultured in the urine and the patient is still receiving IV cefepime. His cardiac rhythm is sinus. He remains on amiodarone 200 mg orally and is on Lovenox was placed on hold suspecting GI bleeding. As such, the patient is not taking any form of anticoagulation for now. He does have preserved LV function and his ech ocardiogram showed no significant structural or valvular heart abnormalities. He remains on room air oxygen. He is tolerating his diet. No other significant events overnight. Still incontinent to urine and stool and the patient has a stage II coccyx ulcer and areas of deep tissue injury on his heels especially on the right foot. 03/10/2022, the patient is resting comfortably in bed and he is currently on room air oxygen. 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 He has a gram-negative urinary tract infection with Enterobacter in his being treated accordingly with IV cefepime. He does have also a stage II coccyx ulcers and DTI to his heels. The patient has no other new complaints otherwise for now. The white cell count is 11.7 with a hemoglobin of 9.1. BUN is at 6 with a creatinine of 0.5 and a sodium level of 127. Noted that hemoglobin earlier was 9.3 and dropped down to 9.1. No evidence of an acute GI bleeding at this point in time. Sodium level is also running low at 127 earlier level was 129. The patient remains on Levemir insulin 14 units along with her that he is receiving sliding scale coverage. The patient continues to be on IV Lasix to optimize his volume status. He is in negative fluid balance of at least 2.4 is over the past 24 hours. This was initiated by nephrology. The patient is also getting ready for a colonoscopy and is undergoing a bowel prep. 03/11/2022, the patient is nothing by mouth and the patient is awaiting his colonoscopy. No new complaints. He is on room air oxygen. Lunesta or difficulties. No cough or sputum production or chest tightness or heaviness point in time. He remains on IV cefepime regarding Enterobacter urinary tract infection.He remains on diuretics. He is taking Lasix 40 mg IV every 12 hours. Rest of the medication remains unchanged. The white cell count of 8.4 with a hemoglobin of 9.4. Serum bicarbonate 32 with a BUN of 5.8 and a creatinine of 0.5. Potassium is at 3.5. Sodium is 143. Potassium levels at 3.9. Blood sugar is 211. Liver function tests are normal. On today's evaluation, patient is resting comfortably in bed. The patient is being seen on follow-up on 03/12/2022. Colonoscopy was not done yesterday because of a poor bowel preparation. Dark stool was encountered during the colonoscopy. Patient is currently taking clear liquid diet. The procedure was scheduled for Tuesday. He is resting comfortably in bed. No respiratory insufficiency at this point in time. The white cell count is 10.9 with hemoglobin of 8.8. BUN is at 0.5. Objective - Vital Signs Vital signs: Vital Signs Temp 98.4 F 03/12/22 13:31 Pulse 77 03/12/22 13:31 Resp 20 03/12/22 13:31 BP 100/62 03/12/22 13:31 Pulse Ox 99 03/12/22 13:31 FiO2 21 03/04/22 07:22 Intake & Output 03/11/22 03/12/22 03/12/22 18:59 06:59 18:59 Intake Total 0 900 Output Total 1999 1651 700 Balance -19991 -700 Weight 76.3 kg Intake: IV 0 Intake, IV Titration 100 Amount Cefepime 2 gm In Sodium 100 Chloride 0.9% 100 ml @ 25 mls/hr IVPB Q8HR [facility] Rx# :[id number] Oral 800 Output: Urine 19990 700 Urine/Stool Mix 1 Other: Voiding Method Indwelling Catheter Indwelling Catheter Indwelling Catheter # Bowel Movements 2 - Exam No acute distress, oriented 3. Currently on room air. Mental status is lethargic HEENT examination is grossly unremarkable. Neck supple. Full range of motion. No adenopathy thyromegaly or neck vein distention. Cardiovascular examination reveals regular rhythm rate. S1-S2 normal. No S3 or S4. No discernible murmur noted. Heart sounds are distant. Lungs reveal mostly clear breath sounds. Minimal scattered rhonchi. No wheezes or crackles. Room air saturation is 98%. Breath sounds are equal bilaterally. Abdomen soft bowel sounds are heard. No masses or tenderness. Extremities are intact. No cyanosis clubbing or edema. DTI to the heel on the right Skin is without rash or lesion. stage 2 wound on the coccyx Neurologic examination is brief but nonfocal. Profoundly weak - Labs CBC & Chem 7: 03/12/22 07:09 03/12/22 07:09 Labs: Abnormal Lab Results - Last 24 Hours (Table) 03/11/22 03/11/22 03/11/22 Range/Units 16:37 19:39 20:53 WBC (3.8-10.6) k/uL RBC (4.30-5.90) m/uL Hgb (13.0-17.5) gm/dL Hct (39.0-53.0) % Plt Count (150-450) k/uL Neutrophils # (1.3-7.7) k/uL Sodium (137-145) mmol/L Chloride (98-107) mmol/L Carbon Dioxide (22-30) mmol/L BUN (9-20) mg/dL Creatinine (0.66-1.25) mg/dL Glucose (74-99) mg/dL POC Glucose (mg/dL) 66 L 186 H 232 H (70-110) mg/dL Calcium (8.4-10.2) mg/dL 03/12/22 03/12/22 03/12/22 Range/Units 07:09 07:09 07:40 WBC 10.9 H (3.8-10.6) k/uL RBC 3.12 L (4.30-5.90) m/uL Hgb 8.8 L (13.0-17.5) gm/dL Hct 26.9 L (39.0-53.0) % Plt Count 527 H (150-450) k/uL Neutrophils # 8.7 H (1.3-7.7) k/uL Sodium 133 L (137-145) mmol/L Chloride 96 L (98-107) mmol/L Carbon Dioxide 33 H (22-30) mmol/L BUN 8 L (9-20) mg/dL Creatinine 0.58 L (0.66-1.25) mg/dL Glucose 141 H (74-99) mg/dL POC Glucose (mg/dL) 155 H (70-110) mg/dL Calcium 7.3 L (8.4-10.2) mg/dL 03/12/22 Range/Units 11:35 WBC (3.8-10.6) k/uL RBC (4.30-5.90) m/uL Hgb (13.0-17.5) gm/dL Hct (39.0-53.0) % Plt Count (150-450) k/uL Neutrophils # (1.3-7.7) k/uL Sodium (137-145) mmol/L Chloride (98-107) mmol/L Carbon Dioxide (22-30) mmol/L BUN (9-20) mg/dL Creatinine (0.66-1.25) mg/dL Glucose (74-99) mg/dL POC Glucose (mg/dL) 121 H (70-110) mg/dL Calcium (8.4-10.2) mg/dL Microbiology - Last 24 Hours (Table) 03/11/22 00:43 Urine Culture - Final Urine,Voided Betty albicans 03/11/22 08:25 Blood Culture - Preliminary Blood No Growth after 24 hours Assessment and Plan Plan: Acute diabetic ketoacidosis, recovered. Currently, the patient is on Levemir insulin and sliding scale coverage. The patient is stable. Altered mental status, improved. Mental status is essentially within normal limits. Enterobacter cloacae urinary tract infection, on IV cefepime Leukocytosis, improved. Hypokalemia, improved. Anion gap metabolic acidosis secondary to above. New onset atrial fibrillation with rapid ventricular response, currently in sinus Poosible UGI , currently off anticoagulation, the patient was found to have some mild antral gastritis and esophagitis without evidence of any acute bleeding and EGD was completed today and hemoglobin remained stable. The patient will be restarted back on his diet. History of diabetes mellitus, on levemir Chronic and ongoing tobacco dependence. History of ADHD. Plan: Colonoscopy by Tuesday Stable hemoglobin No change in his overall condition This patient continues to be extremely debilitated, lethargic and weak. He has developed stage II one on his coccyx for which a Opteform was applied The patient also has many boots to protect his heels as the patient has developed deep tissue injury to his feet bilaterally The patient is prepped for colonoscopy today and this will be completed Monitor hemoglobin No anticoagulants for now Change Lasix to 40 mg once a day IV Cardiac rhythm is sinus Continue IV cefepime We'll continue to follow
[2022-03-12] MEDS: FUROSEMIDE 10 MG/ML 4 ML VIAL IV SCH (14:54)
--- NOTE | 2022-03-12 16:28 | P.PN ---
Subjective Progress Note Date: 03/12/22 Principal diagnosis: Enterobacter catheter associated UTI Patient is a 62 year old male with initial presentation hospital 10 07/30/2003 palpitation and shortness of breath patient did have a low-grade fever and a positive urine culture with Enterobacter. Patient has developed significant constipation and possible GI bleed status post disimpaction on 03/11/2022 On today's evaluation that is 03/12/2022, the patient remains to be afebrile , the patient is breathing comfortably on room air, the patient denies chest pain or shortness of breath or cough no abdominal pain no diarrhea Objective - Vital Signs Vital signs: Vital Signs Temp 97.9 F 03/12/22 07:01 Pulse 74 03/12/22 07:01 Resp 24 03/12/22 07:01 BP 109/62 03/12/22 07:01 Pulse Ox 98 03/12/22 07:01 FiO2 21 03/04/22 07:22 Intake & Output 03/11/22 03/12/22 03/12/22 18:59 06:59 18:59 Intake Total 0 900 Output Total 1999 1651 300 Balance -1999 -751 -300 Intake: IV 0 Intake, IV Titration 100 Amount Cefepime 2 gm In Sodium 100 Chloride 0.9% 100 ml @ 25 mls/hr IVPB Q8HR [facility] Rx# :[id number] Oral 800 Output: Urine 1999 1650 300 Urine/Stool Mix 1 Other: Voiding Method Indwelling Catheter Indwelling Catheter Indwelling Catheter # Bowel Movements 2 - Exam GENERAL DESCRIPTION: A middle-aged male lying in bed in no distress RESPIRATORY SYSTEM: Unlabored breathing , decreased breath sounds at bases HEART: S1 S2 regular rate and rhythm , ABDOMEN: Soft , no tenderness EXTREMITIES: No edema feet - Labs CBC & Chem 7: 03/12/22 07:09 03/12/22 07:09 Labs: Abnormal Lab Results - Last 24 Hours (Table) 03/11/22 03/11/22 03/11/22 Range/Units 16:37 19:39 20:53 WBC (3.8-10.6) k/uL RBC (4.30-5.90) m/uL Hgb (13.0-17.5) gm/dL Hct (39.0-53.0) % Plt Count (150-450) k/uL Neutrophils # (1.3-7.7) k/uL Sodium (137-145) mmol/L Chloride (98-107) mmol/L Carbon Dioxide (22-30) mmol/L BUN (9-20) mg/dL Creatinine (0.66-1.25) mg/dL Glucose (74-99) mg/dL POC Glucose (mg/dL) 66 L 186 H 232 H (70-110) mg/dL Calcium (8.4-10.2) mg/dL 03/12/22 03/12/22 03/12/22 Range/Units 07:09 07:09 07:40 WBC 10.9 H (3.8-10.6) k/uL RBC 3.12 L (4.30-5.90) m/uL Hgb 8.8 L (13.0-17.5) gm/dL Hct 26.9 L (39.0-53.0) % Plt Count 527 H (150-450) k/uL Neutrophils # 8.7 H (1.3-7.7) k/uL Sodium 133 L (137-145) mmol/L Chloride 96 L (98-107) mmol/L Carbon Dioxide 33 H (22-30) mmol/L BUN 8 L (9-20) mg/dL Creatinine 0.58 L (0.66-1.25) mg/dL Glucose 141 H (74-99) mg/dL POC Glucose (mg/dL) 155 H (70-110) mg/dL Calcium 7.3 L (8.4-10.2) mg/dL 03/12/22 Range/Units 11:35 WBC (3.8-10.6) k/uL RBC (4.30-5.90) m/uL Hgb (13.0-17.5) gm/dL Hct (39.0-53.0) % Plt Count (150-450) k/uL Neutrophils # (1.3-7.7) k/uL Sodium (137-145) mmol/L Chloride (98-107) mmol/L Carbon Dioxide (22-30) mmol/L BUN (9-20) mg/dL Creatinine (0.66-1.25) mg/dL Glucose (74-99) mg/dL POC Glucose (mg/dL) 121 H (70-110) mg/dL Calcium (8.4-10.2) mg/dL Microbiology - Last 24 Hours (Table) 03/11/22 08:25 Blood Culture - Preliminary Blood No Growth after 24 hours 03/11/22 00:43 Urine Culture - Preliminary Urine,Voided Yeast species Assessment and Plan (1) Catheter-associated urinary tract infection Current Visit: Yes Status: Acute Code(s): T83.511A - I/I REACT D/T INDWELLING URETHRAL CATHETER, INIT; N39.0 - URINARY TRACT INFECTION, SITE NOT SPECIFIED SNOMED Code(s): 749879593 Plan: 1patient with a low-grade fever positive UA and urinary symptoms retention requiring Zee catheter placement concerning for a symptomatic UTI urine has been finalized with Enterobacter and this patient is currently on amiodarone using quinolones can lead to QT prolongation patient to continue with cefepime 2 g every 8 hours 2 the patient repeat culture with betty and diflucan cannot be added because of amiodarone , the patient still have a positive UA however the patient is af ebrile white count is normal we will monitor the patient closely, will discuss with nursing staff in the Zee catheter can be discontinued that should be enough for this positive urine culture with Betty Time with Patient: Less than 30
[2022-03-12 16:35] LABS: Glucose,Whole Blood 205 mg/dL (70-110)
--- NOTE | 2022-03-12 16:43 | P.PN ---
Subjective Progress Note Date: 03/12/22 The patient is seen at bedside and feels about the same. He stated he continues to have lower extremity weakness. Orthopedic is considering lower back surgery. He had fecal impaction and could not have colonoscopy so was reschedule. Objective - Vital Signs Vital signs: Vital Signs Temp 97.7 F 03/12/22 15:28 Pulse 75 03/12/22 15:28 Resp 21 03/12/22 15:28 BP 99/56 03/12/22 15:28 Pulse Ox 100 03/12/22 15:28 FiO2 21 03/04/22 07:22 Intake & Output 03/11/22 03/12/22 03/12/22 18:59 06:59 18:59 Intake Total 0 900 Output Total 1999 1651 700 Balance -1999700 Weight 76.3 kg Intake: IV 0 Intake, IV Titration 100 Amount Cefepime 2 gm In Sodium 100 Chloride 0.9% 100 ml @ 25 mls/hr IVPB Q8HR [facility] Rx# :[id number] Oral 800 Output: Urine 1999 1649 700 Urine/Stool Mix 1 Other: Voiding Method Indwelling Catheter Indwelling Catheter Indwelling Catheter # Bowel Movements 2 - Exam GENERAL: The patient is lying in bed and is not in acute distress. NEUROLOGICAL: Higher mental function: The patient is awake, alert, oriented to self, place and time. Mildly slow in responding. Patient is following simple commands. No aphasia and no neglect. Cranial nerves: The pupils are round, equal and reactive to light . Visual aponte are full to confrontation throughout. Extraocular movement is intact no nystagmus is noted. Facial sensation is normal to touch throughout. The facial strength is normal throughout. Tongue is midline and moved [id number] without any difficulty. No dysarthria is noted. Shoulder shrug is normal bilaterally. Motor: Gait is deferred because of his significant weakness in lowers. The strength is 5 over 5 throughout uppers. While lowers he was able to internally/externally rotate of left hip and wiggle his toes on the left. No movement in the right lower. Normal bulk. Decrease tone in lowers. Cerebellum: Normal finger to nose bilaterally. Sensation: Sensation is normal to touch throughout. Reflexes (right/left): 0 in lowers while uppers are 1+ SOME OF THE WORK-UP DURING THIS HOSPITAL VISIT CONSISTED OF: * B12 727, folate 7.6, TSH 1.7. Patient's last hemoglobin A1c on 06/07/2016 was 12.7. Repeat hemoglobin A1c 12.9 on 03/05/2022. Ammonia is normal. * EEG 03/04/2022 was abnormal due to background slowing of moderate degree. This is suggestive of generalized cerebral dysfunction as can be seen with toxic metabolic encephalopathy or due to diffuse structural brain abnormality. Clinical correlation recommended. No epileptiform activity was seen. - Labs CBC & Chem 7: 03/12/22 07:09 03/12/22 07:09 Labs: Abnormal Lab Results - Last 24 Hours (Table) 03/11/22 03/11/22 03/11/22 Range/Units 16:37 19:39 20:53 WBC (3.8-10.6) k/uL RBC (4.30-5.90) m/uL Hgb (13.0-17.5) gm/dL Hct (39.0-53.0) % Plt Count (150-450) k/uL Neutrophils # (1.3-7.7) k/uL Sodium (137-145) mmol/L Chloride (98-107) mmol/L Carbon Dioxide (22-30) mmol/L BUN (9-20) mg/dL Creatinine (0.66-1.25) mg/dL Glucose (74-99) mg/dL POC Glucose (mg/dL) 66 L 186 H 232 H (70-110) mg/dL Calcium (8.4-10.2) mg/dL 03/12/22 03/12/22 03/12/22 Range/Units 07:09 07:09 07:40 WBC 10.9 H (3.8-10.6) k/uL RBC 3.12 L (4.30-5.90) m/uL Hgb 8.8 L (13.0-17.5) gm/dL Hct 26.9 L (39.0-53.0) % Plt Count 527 H (150-450) k/uL Neutrophils # 8.7 H (1.3-7.7) k/uL Sodium 133 L (137-145) mmol/L Chloride 96 L (98-107) mmol/L Carbon Dioxide 33 H (22-30) mmol/L BUN 8 L (9-20) mg/dL Creatinine 0.58 L (0.66-1.25) mg/dL Glucose 141 H (74-99) mg/dL POC Glucose (mg/dL) 155 H (70-110) mg/dL Calcium 7.3 L (8.4-10.2) mg/dL 03/12/22 03/12/22 Range/Units 11:35 16:34 WBC (3.8-10.6) k/uL RBC (4.30-5.90) m/uL Hgb (13.0-17.5) gm/dL Hct (39.0-53.0) % Plt Count (150-450) k/uL Neutrophils # (1.3-7.7) k/uL Sodium (137-145) mmol/L Chloride (98-107) mmol/L Carbon Dioxide (22-30) mmol/L BUN (9-20) mg/dL Creatinine (0.66-1.25) mg/dL Glucose (74-99) mg/dL POC Glucose (mg/dL) 121 H 205 H (70-110) mg/dL Calcium (8.4-10.2) mg/dL Microbiology - Last 24 Hours (Table) 03/11/22 00:43 Urine Culture - Final Urine,Voided Betty albicans 03/11/22 08:25 Blood Culture - Preliminary Blood No Growth after 24 hours Assessment and Plan Assessment: * Altered mental status, likely due to toxic metabolic encephalopathy, improved. * Bilateral lower extremity weakness, unclear etiology. MRI revealed multilevel spinal stenosis, at least moderate to severe in degree. Rule out superimposed critical illness myopathy vs polyradiculopathy from his uncontrolled diabetes. * Acute diabetic ketoacidosis * Poorly controlled diabetes * Metabolic acidosis * New onset atrial fibrillation * Urinary tract infection with Enterobacter Clocae, on ceftriaxone. * Tobacco use * History of ADHD Plan: * MRI of the lumbar and thoracic spine reported as multilevel lumbar spurring and disc bulging with multilevel mild spinal stenosis. Mild wedging of L1 and L2 appears old. No acute abnormality of the thoracic spine. No compression fracture. No thoracic spinal stenosis. I personally reviewed MRI of the lumbar and thoracic spine myself. There is multilevel spinal stenosis at L3- L4, L4-L5, and lesser degree at L2-L3 and L5-S1 levels. The most significant is at L4-L5 level, which appears moderate to severe on my review. * Orthopedic spine surgery input appreciated. They are considering L2-L5 decompression and fusion down the line but pending Colonoscopy by general surgery/clearance. * Ordered CK level and is normal (70). TSH is normal. * Recommend EMG nerve conductions of lower extremity as an outpatient. * Optimize control of diabetes. * Recommended tobacco cessation. * Will defer the rest of medical management to the primary team. * PT and OT are consulted. The plan is discussed with patient and his nurse. Will follow-up with patient sporadically. Dr. Farias is providing neurology coverage this then Dr. Victoria will start this Tuesday A.M. Time with Patient: Less than 30
[2022-03-12 20:44] LABS: Glucose,Whole Blood 169 mg/dL (70-110)
[2022-03-12] MEDS: ACETAMINOPHEN TAB 325 MG TAB PO PRN (23:11)
[2022-03-13] MEDS: METOPROLOL TARTRATE 50 MG TAB PO SCH ×3 (00:10→23:01)
[2022-03-13] MEDS: CEFEPIME 2 GM in SODIUM CHLORIDE 0.9% 100 ML IVPB SCH ×3 (00:11→17:10)
[2022-03-13] MEDS: traMADol 50 MG TAB PO PRN (01:15)
[2022-03-13 06:59] LABS: Glucose,Whole Blood 152 mg/dL (70-110)
[2022-03-13] MEDS: INSULIN ASPART (NovoLOG) 100 UNIT/ML VIAL SQ SCH ×4 (08:57→23:00)
[2022-03-13] MEDS: INSULIN DETEMIR (LEVEMIR) 100 UNIT/ML SYR SQ SCH (09:05)
[2022-03-13] MEDS: NICOTINE 21MG/24HR PATCH TRANSDERM SCH (09:07)
[2022-03-13] MEDS: FUROSEMIDE 10 MG/ML 4 ML VIAL IV SCH (09:08)
[2022-03-13] MEDS: PANTOPRAZOLE 40 MG/10 ML VIAL IVP SCH ×2 (09:08→23:01)
[2022-03-13] MEDS: FOLIC ACID 1 MG TAB PO SCH (09:08)
[2022-03-13] MEDS: AMIODARONE 200 MG TAB PO SCH ×2 (09:08→23:02)
--- NOTE | 2022-03-13 09:12 | P.PN ---
Subjective Progress Note Date: 03/13/22 Principal diagnosis: 1. 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 Bilateral lower extremity weakness Patient was seen at bedside this morning lying semirecumbent position. Patient appears somewhat fatigued during encounter. Patient says he went for a colonoscopy a couple days ago, but said they were unable to do the procedure. Patient mentions he is still unable to move his RLE. Patient says he can move his left leg a bit. Patient is complaining of low back pain that he says has been increasing over the past couple days. Patient is wondering if he can have some better medication to help control his pain. Patient denies saddle anesthesia. Patient denies loss of bowel/bladder control. Patient denies chest pain, fever, shortness breath, nausea, vomiting, change in vision. Objective - Vital Signs Vital signs: Vital Signs Temp 98.1 F 03/13/22 07:30 Pulse 71 03/13/22 07:30 Resp 20 03/13/22 07:30 BP 116/69 03/13/22 07:30 Pulse Ox 99 03/13/22 07:30 FiO2 21 03/04/22 07:22 Intake & Output 03/12/22 03/13/22 03/13/22 18:59 06:59 18:59 Output Total 700 300 Balance -700 -300 Weight 76.3 kg Output: Urine 700 300 Other: Voiding Method Indwelling Catheter - Exam Patient is somewhat lethargic during exam. Patient is alert and oriented 3 Inspection: Negative for any open fractures, significant ecchymosis/erythema/ulcers. Right upper extremity and bilateral lower extr emities are somewhat edematous Sensation: Sensation is equal, symmetric, bilaterally intact throughout the upper and lower extremities on exam Palpation: Patient does have some tenderness to palpation along the paraspinal region in the lumbar spine and in midline. NTTP throughout rest exam. Range of motion: Patient has full range of motion bilateral upper extremities on exam. Patient is unable to flex/extend hips bilaterally on exam. Patient unable to flex/extend right knee. Patient is able to flex/extend left knee somewhat. Patient is able to wiggle toes in left lower extremity. Patient is unable to plantar/dorsiflex either ankle. Patient does have good range passive range of motion on exam and knee flexion/extension and hip flexion/extension. Motor: Bilateral upper extremities 4-/5 in bias binding folder strength bilaterally. 4+/5 in resisted shoulder elevation, external/internal rotation, elbow flexion/extension and wrist flexion/extension. Patient unable to perform motor exam in bilateral knees and hips and plantar/dorsiflexion bilaterally Neurovascular status: Radial pulse intact, 2+ bilaterally. Cap refill under 3 seconds in digits upper extremities. Special tests: Negative Pb's bilaterally. Negative clonus bilaterally. Negative Homans bilaterally. - Labs CBC & Chem 7: 03/12/22 07:09 03/12/22 07:09 Labs: Abnormal Lab Results - Last 24 Hours (Table) 03/12/22 03/12/22 03/12/22 Range/Units 11:35 16:34 20:43 POC Glucose (mg/dL) 121 H 205 H 169 H (70-110) mg/dL 03/13/22 Range/Units 06:58 POC Glucose (mg/dL) 152 H (70-110) mg/dL Microbiology - Last 24 Hours (Table) 03/11/22 00:43 Urine Culture - Final Urine,Voided Betty albicans 03/11/22 08:25 Blood Culture - Preliminary Blood No Growth after 24 hours Assessment and Plan Assessment: 1. 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 Bilateral lower extremity weakness Plan: 1. Degenerative disc disease; central spinal cord stenosis at L2-L5; Bilateral lower extremity weakness - patient seen at bedside this morning. MRI of thoracic is lumbar spine have been reviewed. There is degenerative disc disease throughout the spine as well as some moderate-severe spinal canal stenosis from L2 through L5 and degenerativ echanges in cervical spine. Colonoscopy was unable to be performed due to fecal impaction. colonscopy rescheduled for 03/15/2022. We will await until gen surg is able to perform colonscopy before proceeding with any potential orthopedic intervention. We will continue to follow patient with plan for potential spine surgery in the near future - L2-pelvis decompression and fusion. We will continue to follow patient during his stay. 2. Appreciate medical, pulmonology, cardiology/vascular management, nephrology, gen surg management. 3. Pain management - Tylenol; tramadol; [place] 4. DVT prophylaxis - Lovenox 5. GI prophylaxis - Maalox; protonix 6. PT/OT - weightbearing as tolerated with walker Time with Patient: Less than 30
[2022-03-13] MEDS: SODIUM FERRIC GLUCONAT-SUCROSE 125 MG in SODIUM CHLORIDE 0.9% 100 ML IVPB SCH (09:17)
[2022-03-13] MEDS: HYDROcodone/APAP 7.5-325MG 1 EACH TAB PO PRN ×3 (09:28→23:02)
--- NOTE | 2022-03-13 09:32 | P.PN ---
Subjective Progress Note Date: 03/13/22 Principal diagnosis: This is a 60-year-old male seen in consultation because of hyponatremia, sodium was 128 on admission, improved to 137 on 03/03/2022 and and down again. Last s odium is currently 133 as of yesterday. The etiology of this He came into the hospital because of DKA shortness of breath SVT A. fib Additionally he has central spinal cord stenosis at L2 to 5 and is being 6 considered for surgery. Significant edema was noted He was diuresed and has responded very well with urine output of 3-8 L a day. No hydronephrosis was noted on ultrasound. There is some thickening of the bladder wall trace edema in the upper thighs. Urine cultures grew Betty on and previously Enterobacter cloacae on 03/02/2022 Objective - Vital Signs Vital signs: Vital Signs Temp 98.1 F 03/13/22 07:30 Pulse 71 03/13/22 07:30 Resp 20 03/13/22 07:30 BP 116/69 03/13/22 07:30 Pulse Ox 99 03/13/22 07:30 FiO2 21 03/04/22 07:22 Intake & Output 03/12/22 03/13/22 03/13/22 18:59 06:59 18:59 Output Total 700 300 Balance -700 -300 Weight 76.3 kg Output: Urine 700 300 Other: Voiding Method Indwelling Catheter On exam he is awake alert oriented comfortable Known JVP noted neck is supple no facial asymmetry Lungs clear to auscultation good air entry bilaterally Heart sounds unremarkable for any murmur rub gallop Abdomen soft nontender. Extremities examination reveals trace edema in the upper thighs Neurologically awake alert oriented - Labs CBC & Chem 7: 03/12/22 07:09 03/12/22 07:09 Labs: Abnormal Lab Results - Last 24 Hours (Table) 03/12/22 03/12/22 03/12/22 Range/Units 11:35 16:34 20:43 POC Glucose (mg/dL) 121 H 205 H 169 H (70-110) mg/dL 03/13/22 Range/Units 06:58 POC Glucose (mg/dL) 152 H (70-110) mg/dL Microbiology - Last 24 Hours (Table) 03/11/22 00:43 Urine Culture - Final Urine,Voided Betty albicans 03/11/22 08:25 Blood Culture - Preliminary Blood No Growth after 24 hours Assessment and Plan Assessment: Impression 1. Hyponatremia, associated with hypoalbuminemia and edema. No pulmonary edema noted on chest x-ray on admission. This is deemed to be from hypervolemic hyponatremia and responding to Lasix. Sodium is 133, creatinine 0.58 in BUN is 8 2. Polyuria secondary to diuretics and responding to examination of edema with low osmolarity appropriately. 3. Spinal cord stenosis possible surgeries contemplated 4. Mild degree of metabolic alkalosis bicarbs 33 secondary to diuretics 5. Iron deficiency saturation 10% on 03/09/2022 6. Anemia hemoglobin is 8.8 7. Diabetes mellitus Recommendation 1. Maintain Lasix 2. Continue to monitor electrolytes. 3. Discontinue phosphorus 4. Check phosphorus level
[2022-03-13 11:05] LABS: Magnesium 2.2 mg/dL (1.5-2.4)
[2022-03-13 11:07] LABS: African American GFR (CKD) 134.2 (60.0-200.0); Anion Gap 5.9 mmol/L (10.00-18.00); BUN/Creat Ratio 20.83 Ratio (12.00-20.00); Blood Urea Nitrogen 10.5 mg/dL (9.0-27.0); Calcium 7.5 mg/dL (8.7-10.3); Carbon Dioxide 27.8 mmol/L (20.0-27.5); Non-African American GFR(CKD) 115.8 (60.0-200.0); Potassium 4.4 mmol/L (3.5-5.5)
--- NOTE | 2022-03-13 11:17 | P.PN ---
Subjective Progress Note Date: 03/13/22 Principal diagnosis: Melanotic stools Patient doing well today. Complaining of mild abdominal discomfort. He says he had additional bowel movements. T-max 101.2. No rectal bleeding. Hemoglobin stable. Objective - Vital Signs Vital signs: Vital Signs Temp 98.1 F 03/13/22 07:30 Pulse 71 03/13/22 07:30 Resp 20 03/13/22 07:30 BP 116/69 03/13/22 07:30 Pulse Ox 99 03/13/22 07:30 FiO2 21 03/04/22 07:22 Intake & Output 03/12/22 03/13/22 03/13/22 18:59 06:59 18:59 Output Total 700 300 Balance -700 -300 Weight 76.3 kg Output: Urine 700 300 Other: Voiding Method Indwelling Catheter Indwelling Catheter - Exam Abdomen: Soft, nontender, nondistended - Labs CBC & Chem 7: 03/12/22 07:09 03/13/22 06:02 Labs: Abnormal Lab Results - Last 24 Hours (Table) 03/12/22 03/12/22 03/12/22 Range/Units 11:35 16:34 20:43 Sodium (135-145) mmol/L Carbon Dioxide (20.0-27.5) mmol/L Anion Gap (10.00-18.00) mmol/L Creatinine (0.6-1.5) mg/dL BUN/Creatinine Ratio (12.00-20.00) Ratio Glucose (70-110) mg/dL POC Glucose (mg/dL) 121 H 205 H 169 H (70-110) mg/dL Calcium (8.7-10.3) mg/dL 03/13/22 03/13/22 Range/Units 06:02 06:58 Sodium 134 L (135-145) mmol/L Carbon Dioxide 27.8 H (20.0-27.5) mmol/L Anion Gap 5.90 L (10.00-18.00) mmol/L Creatinine 0.5 L (0.6-1.5) mg/dL BUN/Creatinine Ratio 20.83 H (12.00-20.00) Ratio Glucose 150 H (70-110) mg/dL POC Glucose (mg/dL) 152 H (70-110) mg/dL Calcium 7.5 L (8.7-10.3) mg/dL Microbiology - Last 24 Hours (Table) 03/11/22 08:25 Blood Culture - Preliminary Blood No Growth after 48 hours 03/11/22 00:43 Urine Culture - Final Urine,Voided Betty albicans Assessment and Plan (1) Melanotic stools Narrative/Plan: 66-year-old male with GI bleed. Patient scheduled for colonoscopy on Tuesday. Continue liquid diet. Continue stool softeners. Current Visit: Yes Status: Acute Code(s): K92.1 - MELENA SNOMED Code(s): 4246422
[2022-03-13 11:58] LABS: Glucose,Whole Blood 350 mg/dL (70-110)
--- NOTE | 2022-03-13 13:18 | P.PN ---
Subjective Progress Note Date: 03/13/22 On 03/09/2022, There is a case of new onset atrial fibrillation, DKA, in addition to a gram-negative UTI. The patient came initially to the intensive care unit because of palpitation and shortness of breath patient was stabilized. Furthermore, he was sent to the medical floor. He did have an episode of upper GI bleed and for that reason he was kept nothing by mouth overnight and the patient's was supposed to do today. In fact , the patient completed an EGD and he was found to have mild gastritis. Hemoglobin is stable and there is no other episode of GI bleeding. Hemoglobin is currently at 9.3. The patient has a that, 4.8 with a platelet count of 453. Sodium was at 129, bicarbonate of 33 with a BUN of 10 and a creatinine of 0.5. The patient has Enterobacter cultured in the urine and the patient is still receiving IV cefepime. His cardiac rhythm is sinus. He remains on amiodarone 200 mg orally and is on Lovenox was placed on hold suspecting GI bleeding. As such, the patient is not taking any form of anticoagulation for now. He does have preserved LV function and his ech ocardiogram showed no significant structural or valvular heart abnormalities. He remains on room air oxygen. He is tolerating his diet. No other significant events overnight. Still incontinent to urine and stool and the patient has a stage II coccyx ulcer and areas of deep tissue injury on his heels especially on the right foot. 03/10/2022, the patient is resting comfortably in bed and he is currently on room air oxygen. 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 He has a gram-negative urinary tract infection with Enterobacter in his being treated accordingly with IV cefepime. He does have also a stage II coccyx ulcers and DTI to his heels. The patient has no other new complaints otherwise for now. The white cell count is 11.7 with a hemoglobin of 9.1. BUN is at 6 with a creatinine of 0.5 and a sodium level of 127. Noted that hemoglobin earlier was 9.3 and dropped down to 9.1. No evidence of an acute GI bleeding at this point in time. Sodium level is also running low at 127 earlier level was 129. The patient remains on Levemir insulin 14 units along with her that he is receiving sliding scale coverage. The patient continues to be on IV Lasix to optimize his volume status. He is in negative fluid balance of at least 2.4 is over the past 24 hours. This was initiated by nephrology. The patient is also getting ready for a colonoscopy and is undergoing a bowel prep. 03/11/2022, the patient is nothing by mouth and the patient is awaiting his colonoscopy. No new complaints. He is on room air oxygen. Lunesta or difficulties. No cough or sputum production or chest tightness or heaviness point in time. He remains on IV cefepime regarding Enterobacter urinary tract infection.He remains on diuretics. He is taking Lasix 40 mg IV every 12 hours. Rest of the medication remains unchanged. The white cell count of 8.4 with a hemoglobin of 9.4. Serum bicarbonate 32 with a BUN of 5.8 and a creatinine of 0.5. Potassium is at 3.5. Sodium is 143. Potassium levels at 3.9. Blood sugar is 211. Liver function tests are normal. On today's evaluation, patient is resting comfortably in bed. The patient is being seen on follow-up on 03/12/2022. Colonoscopy was not done yesterday because of a poor bowel preparation. Dark stool was encountered during the colonoscopy. Patient is currently taking clear liquid diet. The procedure was scheduled for Tuesday. He is resting comfortably in bed. No respiratory insufficiency at this point in time. The white cell count is 10.9 with hemoglobin of 8.8. BUN is at 0.5. 03/13/2022, clinically stable, no changes in his condition. He is on room air oxygen. Hemoglobin is stable. Remains on IV cefepime. Blood work shows a BUN of 5 and a creatinine of 0.5 and a sodium level 134 Objective - Vital Signs Vital signs: Vital Signs Temp 98.1 F 03/13/22 07:30 Pulse 71 03/13/22 07:30 Resp 20 03/13/22 07:30 BP 116/69 03/13/22 07:30 Pulse Ox 99 03/13/22 07:30 FiO2 21 03/04/22 07:22 Intake & Output 03/12/22 03/13/22 03/13/22 18:59 06:59 18:59 Output Total 700 300 Balance -700 -300 Weight 76.3 kg Output: Urine 700 300 Other: Voiding Method Indwelling Catheter Indwelling Catheter - Exam No acute distress, oriented 3. Currently on room air. Mental status is lethargic HEENT examination is grossly unremarkable. Neck supple. Full range of motion. No adenopathy thyromegaly or neck vein distention. Cardiovascular examination reveals regular rhythm rate. S1-S2 normal. No S3 or S4. No discernible murmur noted. Heart sounds are distant. Lungs reveal mostly clear breath sounds. Minimal scattered rhonchi. No wheezes or crackles. Room air saturation is 98%. Breath sounds are equal bilaterally. Abdomen soft bowel sounds are heard. No masses or tenderness. Extremities are intact. No cyanosis clubbing or edema. DTI to the heel on the right Skin is without rash or lesion. stage 2 wound on the coccyx Neurologic examination is brief but nonfocal. Profoundly weak - Labs CBC & Chem 7: 03/12/22 07:09 03/13/22 06:02 Labs: Abnormal Lab Results - Last 24 Hours (Table) 03/12/22 03/12/22 03/13/22 Range/Units 16:34 20:43 06:02 Sodium 134 L (135-145) mmol/L Carbon Dioxide 27.8 H (20.0-27.5) mmol/L Anion Gap 5.90 L (10.00-18.00) mmol/L Creatinine 0.5 L (0.6-1.5) mg/dL BUN/Creatinine Ratio 20.83 H (12.00-20.00) Ratio Glucose 150 H (70-110) mg/dL POC Glucose (mg/dL) 205 H 169 H (70-110) mg/dL Calcium 7.5 L (8.7-10.3) mg/dL 03/13/22 03/13/22 Range/Units 06:58 11:56 Sodium (135-145) mmol/L Carbon Dioxide (20.0-27.5) mmol/L Anion Gap (10.00-18.00) mmol/L Creatinine (0.6-1.5) mg/dL BUN/Creatinine Ratio (12.00-20.00) Ratio Glucose (70-110) mg/dL POC Glucose (mg/dL) 152 H 350 H (70-110) mg/dL Calcium (8.7-10.3) mg/dL Microbiology - Last 24 Hours (Table) 03/11/22 08:25 Blood Culture - Preliminary Blood No Growth after 48 hours 03/11/22 00:43 Urine Culture - Final Urine,Voided Ebtty albicans Assessment and Plan Plan: Acute diabetic ketoacidosis, recovered. Currently, the patient is on Levemir insulin and sliding scale coverage. The patient is stable. Altered mental status, improved. Mental status is essentially within normal limits. Enterobacter cloacae urinary tract infection, on IV cefepime Leukocytosis, improved. Hypokalemia, improved. Anion gap metabolic acidosis secondary to above. New onset atrial fibrillation with rapid ventricular response, currently in sinus Poosible UGI , currently off anticoagulation, the patient was found to have some mild antral gastritis and esophagitis without evidence of any acute bleeding and EGD was completed today and hemoglobin remained stable. The patient will be restarted back on his diet. History of diabetes mellitus, on levemir Chronic and ongoing tobacco dependence. History of ADHD. Plan: Clinically stable, no changes condition for now Normal oxygenation Colonoscopy by Tuesday Stable hemoglobin No change in his overall condition This patient continues to be extremely debilitated, lethargic and weak. He has developed stage II one on his coccyx for which a Opteform was applied The patient also has many boots to protect his heels as the patient has developed deep tissue injury to his feet bilaterally The patient is prepped for colonoscopy today and this will be completed Monitor hemoglobin No anticoagulants for now Lasix to 40 mg once a day IV Cardiac rhythm is sinus Continue IV cefepime We'll continue to follow
[2022-03-13 16:36] LABS: Glucose,Whole Blood 196 mg/dL (70-110)
--- NOTE | 2022-03-13 16:59 | P.PN ---
Progress Note - Text Progress Note Date: 03/13/22 Chief Complaint: Decreased responsiveness This is a 62-year-old patient, follows with Dr. Mendez. Chronic stable medical conditions include ADHD, herniated disc lower back, smoker. Patient's son at the bedside. Patient yesterday took his medication was going to the bathroom and the son noticed that he was feeling looking weak. He became less responsive. Never passed out. Shaky. No fever or chills reported. EMS was called out. Patient is found to be in atrial fibrillation with rapid ventricular rate. In the ER started on IV heparin, given adenosine, later put on IV Cardizem. Also found to be in DKA. Put on insulin drip. Potassium was very low NG tube had to be pacemaker placement. Tired. Most of the history of pain medicine at the bedside. Patient rather tired and lethargic. Admitted with new onset of atrial fibrillation uncontrolled, diabetic k etoacidosis, acute metabolic encephalopathy, severe hypokalemia. Started on Cardizem drip, IV heparin, insulin drip. NG tube was placed for potassium replacement. March 03: ICU: Patient went back into sinus rhythm. Did have 3-4 minutes burst of A. fib with rapid ventricular rate and rhythm back in sinus rhythm. IV heparin is being changed over to subcu Lovenox 70 mg every 12. Insulin drip is discontinued. Put on Levemir 10 units. NG tube in place. Potassium being replaced. Still patient is rather lethargic. We'll get a computed tomography scan of the brain. And EEG. March 04: ICU: Remains in sinus rhythm. Has been off Cardizem drip. Slightly more awake but still lethargic. Attempted to answer questions. Potassium down to 2.7. Potassium being replaced. At magnesium. By mouth amiodarone. On IV ceftriaxone for possible UTI. Sinus rhythm. Stop Catapres increase Lopressor to 100 mg twice a day. Check ammonia level. Phosphorus being replaced. Consult neurology. CT brain negative for stroke. EEG results pending. March 05: ICU. Laying in bed. Weak. EEG showed encephalopathy. Weakness in all the limbs. Just ordered able to lift his arms. [place] to be from electrolyte abnormalities. Able to answer questions slowly. Did tolerate some ice chips. Nurse will try to feed the patient. Lethargic but more awake. PTOT consulted. Unstageable bluish decolorization of the sacrum and heels. NG tube discontinued. IV fluids. 03/06/2020: Patient remains in the ICU improving slowly and gradually. Still had fever yesterday of 100.7, no more fever today. Other vitals are stable. Patient remains on ceftriaxone and he is been treated for UTI with Enterobacter. He still has fever as of yesterday therefore we will check renal ultrasound. Corcalcitonin 1.03, His altered mentation most likely is secondary to metabolic/toxic encephalopathy and UTI, neurologist on the case and he ordered MRI of the thoracolumbar spine to rule out spinal stenosis, results showing multilevel lumbar spinal stenosis but is mild and there is no spinal stenosis of the thoracic spine. Cardiology the case for new-onset A. fib, currently on Lovenox and amiodarone and rate controlled. Distal on IV fluids under lactate 125 Ulcers on Protonix 40 mg oral twice a day and Lovenox 70 mg twice daily. Glucose controlled on Levemir 14 units. His hemoglobin A1c is 12.9% and his DKA on admission resolved 03/07/2022 Patient still feels generally weak and lethargic. However he has good appetite. He denies chest pain or abdominal pain. No dyspnea. He looks comfortable in bed. He had 1 small bowel movement, no diarrhea. Zee catheter in place with yellow urine. Patient procalcitonin significantly improved down to 0.15, however his culture showed Enterobacter resistant to ceftriaxone. Patient currently on oral Levaquin. We going to consult infectious disease team. WBC is 11.3. Sodium 129. Patient fever on admission has subsided since then. Neurologist on the case and recommended EMG and nerve conduction study as an outpatient. Patient currently on Lovenox 70 mg twice a day, Levemir insulin 14 units and amiodarone. Also he is on oral Protonix twice daily and IV fluids under lactate at 125 Patient tolerates some diet, lower rate elected down to 75 mL/h renal ultrasound order, follow-up results 03/08/2022 Patient is seen and evaluated in follow-up this morning with multiple medical consultations including neurology, pulmonary, infectious disease, orthopedics following. Plan is for possible lumbar decompression sometime this week. Have consulted general surgery as per nursing report patient had a large dark tarry stool this morning. Hemoglobin is stable at 9.7. Patient's sodium is 129 with a potassium of 3.7 current creatinine is stable at 0.42. Blood sugars have been elevated and will continue current regimen. WBC remains elevated and patient is maintained on cefepime and will continue. Oral intake continues to be fair to poor and patient continues to report back pain. Patient has been febrile. Patient denies chest pain or shortness of breath. Patient is extremely lethargic with generalized edema noted throughout. Will consult nephrology for hyponatremia 03/09/2022 Patient is seen and evaluated in follow-up this morning. Multiple medical consultations following including orthopedics, general surgery, nephrology, pulmonary, and infectious disease. Plan was for tentative decompression surgery with orthopedics although sodium continues to be low and nursing reported dark tarry stools and is being evaluated with EGD/colonoscopy that is to be done on . Patient will start bowel prep tomorrow and will monitor closely of labs. Abdomen ultrasound was ordered as well and patient is continue with indwelling Zee catheter. Patient currently maintained on antibiotics and will continue. Patient is maintained on clear liquids and tolerating appears more awake and alert than yesterday. Patient continues to be weak and denies chest pain or shortness of breath. Patient labs currently pending and nephrology is following for hyponatremia and was started on Lasix. 03/10/2022: I resumed care of the patient today Tolerating clear liquids. Tired. Pending surgery-Dr. [place] . Back pain controlled. Patient's had black starry stools. For colonoscopy per Dr. Pabon. 03/11/2022: Patient had soft brown stool today. Some abdominal discomfort. Pending colonoscopy today. Received bowel preparation. Patient received 1 dose of Samsca yesterday. Also IV Ferrlecit. 03/12/2022. Colonoscopic could not be done yesterday because of poor bowel preparation. Dark stool was encountered during start of colonoscopy. Patient back on clear liquids. Now rescheduled for Tuesday. 03/13/2022: Patient had bowel preparation done tomorrow for colonoscopy Tuesday. Tolerating liquid diet. Active Medications Acetaminophen (Acetaminophen Tab 325 Mg Tab) 650 mg PO Q6HR PRN PRN Reason: Mild Pain or Fever > 100.5 Last Admin: 03/12/22 23:11 Dose: 650 mg Hydrocodone Bitart/Acetaminophen (Hydrocodone/Apap 7.5-325mg 1 Each Tab) 1 each PO Q6HR PRN PRN Reason: Pain Last Admin: 03/13/22 14:36 Dose: 1 each Al Hydroxide/Mg Hydroxide (Mag Hydrox/Al Hydrox/Simeth 30 Ml Cup) 15 ml PO Q6HR PRN PRN Reason: Indigestion Amiodarone HCl (Amiodarone 200 Mg Tab) 200 mg PO BID [facility] Last Admin: 03/13/22 09:08 Dose: 200 mg Dextrose/Water (Dextrose 50% Syringe 50 Ml) 25 ml IVP PER PROTOCOL PRN; Protocol PRN Reason: Hypoglycemia Last Admin: 03/11/22 16:43 Dose: 25 ml Dextrose/Water (Dextrose 50% Syringe 50 Ml) 50 ml IVP PER PROTOCOL PRN; Protocol PRN Reason: Hypoglycemia Folic Acid (Folic Acid 1 Mg Tab) 1 mg PO DAILY [facility] Last Admin: 03/13/22 09:08 Dose: 1 mg Furosemide (Furosemide 10 Mg/Ml 4 Ml Vial) 40 mg IV DAILY [facility] Last Admin: 03/13/22 09:08 Dose: 40 mg Cefepime HCl 2 gm/ Sodium (Chloride) 100 mls @ 25 mls/hr IVPB Q8HR [facility]; Protocol Last Admin: 03/13/22 10:39 Dose: 25 mls/hr Lactated Ringer's (Lactated Ringers) 1,000 mls @ 20 mls/hr IV .Q24H [facility] Insulin Aspart (Insulin Aspart (Novolog) 100 Unit/Ml Vial) 0 unit SQ ACHS [facility]; Protocol Last Admin: 03/13/22 13:08 Dose: 8 unit Insulin Detemir (Insulin Detemir (Levemir) 100 Unit/Ml Syr) 14 unit SQ DAILY@0700 [facility] Last Admin: 03/13/22 09:05 Dose: 14 unit Metoprolol Tartrate (Metoprolol Tartrate 50 Mg Tab) 100 mg PO BID [facility] Last Admin: 03/13/22 09:08 Dose: 100 mg Miscellaneous Information (Potassium Replacement Protocol 1 Each Misc) 1 each MISCELLANE DAILY PRN; Protocol PRN Reason: Per Protocol Naloxone HCl (Naloxone 0.4 Mg/Ml 1 Ml Vial) 0.2 mg IV Q2M PRN PRN Reason: Opioid Reversal Nicotine (Nicotine 21mg/24hr Patch) 1 patch TRANSDERM DAILY [facility] Last Admin: 03/13/22 09:07 Dose: 1 patch Ondansetron HCl (Ondansetron 4 Mg/2 Ml Vial) 4 mg IVP Q8HR PRN PRN Reason: Nausea And Vomiting Pantoprazole Sodium (Pantoprazole 40 Mg/10 Ml Vial) 40 mg IVP BID [facility] Last Admin: 03/13/22 09:08 Dose: 40 mg Polyethylene Glycol/Electrolytes (Peg 3350 (236 Gm/Btl) + Lytes 4,000 Ml Bottle) 4,000 ml PO ONCE ONE Stop: 03/14/22 09:01 Tramadol HCl (Tramadol 50 Mg Tab) 50 mg PO QID PRN PRN Reason: Pain Last Admin: 03/13/22 01:15 Dose: 50 mg Past medical history to include: Diabetes, possible ADHD, chronic low back pain, herniated disc, Social history: Son lives with the patient. 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 Smokes about a pack a day. Alcohol occasionally. Physical examination: VITAL SIGNS: 98.3, 65, 14, 99 x 64, 99% room air GENERAL: Tired, laying in bed EYES: Pupils equal. Conjunctiva normal. HEENT: External appearance of nose and ears normal, oral cavity mucous membranes moist NECK: JVD not raised; masses not palpable. HEART: Heart sounds normal; no edema. LUNGS: Respiratory rate normal; decreased breath sounds. ABDOMEN: Soft, nontender, liver spleen not palpable, no masses palpable. PSYCH: Answering questions appropriately INVESTIGATIONS, reviewed in the clinical context: March 13: Sodium 134 potassium 4.4 creatinine 0.5 March 12: WBC 10.9 hemoglobin 8.8 progression 3.6 BUN 8 creatinine 0.58 March 11: WBC 8.4 hemoglobin 9.4 platelets 544 potassium 3.9 creatinine 0.5 March 10: WBC 11.7 hemoglobin 9.1 platelets 519 sodium 127 potassium 3.9 BUN 6 creatinine 0.51 serum osmolality 271 HbA1c: 12.9 Computed tomography scan brain: No acute processes reported March 04: WBC 16.6 hemoglobin 9.8 potassium 2.7 creatinine 0.42 phosphorus 1.6 March 03: Sodium 136 potassium 3 BUN 22 creatinine 0.50 albumin 2.2 WBC 36.7 hemoglobin 14.7 platelets 470 potassium 2.7 sodium 128 bicarb 9 BUN 25 crit 0.89 blood glucose 564 UA positive for ketone 4+, leukoesterase negative for nitrite Urine drug screen: Negative Serum acetone positive EKG tracing personally reviewed by me-heart rate 171, ST segment depression Chest x-ray film personally reviewed by me-prominent pulmonary artery. Elevated right diaphragm. 2-D echocardiogram: EF 55-60%. Assessment and plan: -Paroxysmal atrial fibrillation with a rapid ventricular rate, back in sinus rhythm Lopressor 100 mg twice a day. Oral amiodarone -IV heparin -discontinued Follow PTT -Diabetic ketoacidosis: Resolved -Black starry stools/acute GI bleed.. EGD showed mild gastritis and esophagitis. Coloscopy rescheduled for Tuesday per Dr. Pabon -Diabetes mellitus type 2, uncontrolled with hyperglycemia Levemir 14 units subcu daily. Follow Accu-Cheks -Acute metabolic encephalopathy, multifactorial, better Computed tomography scan of brain unremarkable.. EEG-encephalopathy. No seiz ure.. Follow with Neurology -Severe hypokalemia: Better Aggressive replacement of potassium. Follow-up magnesia. -Hypophosphatemia: Better Replace phosphorus -COPD in a current smoker Bronchodilators as needed -Chronic nicotine dependence, cigarette smoker Nicotine patch -Hypoosmolar, hyponatremia: Better Hold of free fluid intake. Received IV Samsca. -L2 S1 laminectomy and decompression, with lower extremity weakness for central spinal cord stenosis. Per Dr. [place] Coloscopy rescheduled for Tuesday. Liquid diet. Bowel purplish tomorrow. Discussed with patient.
[2022-03-13] MEDS: LACTATED RINGERS 1,000 ML IV SCH (17:25)
[2022-03-13 19:51] LABS: Glucose,Whole Blood 195 mg/dL (70-110)
--- NOTE | 2022-03-13 22:01 | P.PN ---
Subjective Progress Note Date: 03/13/22 Principal diagnosis: Enterobacter catheter associated UTI Patient is a 62 year old male with initial presentation hospital 10 07/30/2003 palpitation and shortness of breath patient did have a low-grade fever and a positive urine culture with Enterobacter. Patient has developed significant constipation and possible GI bleed status post disimpaction on 03/11/2022 On today's evaluation that is 03/13/2022, the patient is afebrile , the patient is breathing comfortably on room air, the patient denies chest pain shortness of breath or cough no abdominal pain no diarrhea, no new symptoms Objective - Vital Signs Vital signs: Vital Signs Temp 98.3 F 03/13/22 14:00 Pulse 65 03/13/22 14:00 Resp 14 03/13/22 14:00 BP 99/64 03/13/22 14:00 Pulse Ox 99 03/13/22 14:00 FiO2 21 03/04/22 07:22 Intake & Output 03/12/22 03/13/22 03/13/22 18:59 06:59 18:59 Output Total 700 300 Balance -700 -300 Weight 76.3 kg Output: Urine 700 300 Other: Voiding Method Indwelling Catheter Indwelling Catheter - Exam GENERAL DESCRIPTION: A middle-aged male lying in bed in no distress RESPIRATORY SYSTEM: Unlabored breathing , decreased breath sounds at bases HEART: S1 S2 regular rate and rhythm , ABDOMEN: Soft , no tenderness EXTREMITIES: No edema feet - Labs CBC & Chem 7: 03/12/22 07:09 03/13/22 06:02 Labs: Abnormal Lab Results - Last 24 Hours (Table) 03/12/22 03/12/22 03/13/22 Range/Units 16:34 20:43 06:02 Sodium 134 L (135-145) mmol/L Carbon Dioxide 27.8 H (20.0-27.5) mmol/L Anion Gap 5.90 L (10.00-18.00) mmol/L Creatinine 0.5 L (0.6-1.5) mg/dL BUN/Creatinine Ratio 20.83 H (12.00-20.00) Ratio Glucose 150 H (70-110) mg/dL POC Glucose (mg/dL) 205 H 169 H (70-110) mg/dL Calcium 7.5 L (8.7-10.3) mg/dL 03/13/22 03/13/22 Range/Units 06:58 11:56 Sodium (135-145) mmol/L Carbon Dioxide (20.0-27.5) mmol/L Anion Gap (10.00-18.00) mmol/L Creatinine (0.6-1.5) mg/dL BUN/Creatinine Ratio (12.00-20.00) Ratio Glucose (70-110) mg/dL POC Glucose (mg/dL) 152 H 350 H (70-110) mg/dL Calcium (8.7-10.3) mg/dL Microbiology - Last 24 Hours (Table) 03/11/22 08:25 Blood Culture - Preliminary Blood No Growth after 48 hours 03/11/22 00:43 Urine Culture - Final Urine,Voided Betty albicans Assessment and Plan (1) Catheter-associated urinary tract infection Current Visit: Yes Status: Acute Code(s): T83.511A - I/I REACT D/T INDWELLING URETHRAL CATHETER, INIT; N39.0 - URINARY TRACT INFECTION, SITE NOT SPECIFIED SNOMED Code(s): 471268866 Plan: 1patient with a low-grade fever positive UA and urinary symptoms retention requiring Zee catheter placement concerning for a symptomatic UTI urine has been finalized with Enterobacter and this patient is currently on amiodarone using quinolones can lead to QT prolongation patient received adequate cefepime and can be discontinued 2 the patient repeat culture with betty and diflucan cannot be added because of amiodarone , the patient still have a positive UA however the patient is afebrile white count is normal we will monitor the patient closely
[2022-03-14 07:04] LABS: Glucose,Whole Blood 172 mg/dL (70-110)
--- NOTE | 2022-03-14 08:54 | P.PN ---
Subjective Progress Note Date: 03/14/22 Principal diagnosis: This is a 60-year-old male seen in consultation because of hyponatremia, sodium was 128 on admission, improved to 137 on 03/03/2022 and and down again. Last s odium is currently 133 as of yesterday. The etiology of this was deemed to be from prerenal from volume depletion initially but then subsequently has been diuresed. He is making 3 L to 8 L of urine a day. Last 24 hours he had 3.4 L out. No hydronephrosis noted on ultrasound or thickening of the bladder wall. Had edema. He is diuresing very well. He remains somewhat weak and tired but slowly improving appetite is fair. He is on room air He came into the hospital because of DKA shortness of breath SVT A. fib Additionally he has central spinal cord stenosis at L2 to 5 and is being 6 consi dered for surgery. He was diuresed and has responded very well with urine output of 3-8 L a day. No hydronephrosis was noted on ultrasound. There is some thickening of the bladder wall trace edema in the upper thighs. Urine cultures grew Betty on 03/07/2022 and previously Enterobacter cloacae on 03/02/2022 Objective - Vital Signs Vital signs: Vital Signs Temp 98.8 F 03/14/22 07:08 Pulse 68 03/14/22 07:08 Resp 16 03/14/22 07:08 BP 100/62 03/14/22 07:09 Pulse Ox 97 03/14/22 07:08 FiO2 21 03/04/22 07:22 Intake & Output 03/13/22 03/14/22 03/14/22 18:59 06:59 18:59 Intake Total 2160 Output Total 2300 1100 Balance -140 -1100 Intake: Oral 2160 Output: Urine 2300 1100 Other: Voiding Method Indwelling Catheter Indwelling Catheter On examination somewhat cachectic HEENT exam no JVP neck is supple no facial asymmetry Lungs are clear to auscultation fair air entry bilaterally Heart sounds unremarkable Abdomen soft nontender nondistended Extremity exam trace edema Neurologically awake alert oriented but generalized weakness - Labs CBC & Chem 7: 03/12/22 07:09 03/13/22 06:02 Labs: Abnormal Lab Results - Last 24 Hours (Table) 03/13/22 03/13/22 03/13/22 Range/Units 06:02 11:56 16:34 Sodium 134 L (135-145) mmol/L Carbon Dioxide 27.8 H (20.0-27.5) mmol/L Anion Gap 5.90 L (10.00-18.00) mmol/L Creatinine 0.5 L (0.6-1.5) mg/dL BUN/Creatinine Ratio 20.83 H (12.00-20.00) Ratio Glucose 150 H (70-110) mg/dL POC Glucose (mg/dL) 350 H 196 H (70-110) mg/dL Calcium 7.5 L (8.7-10.3) mg/dL 03/13/22 03/14/22 Range/Units 19:50 07:03 Sodium (135-145) mmol/L Carbon Dioxide (20.0-27.5) mmol/L Anion Gap (10.00-18.00) mmol/L Creatinine (0.6-1.5) mg/dL BUN/Creatinine Ratio (12.00-20.00) Ratio Glucose (70-110) mg/dL POC Glucose (mg/dL) 195 H 172 H (70-110) mg/dL Calcium (8.7-10.3) mg/dL Microbiology - Last 24 Hours (Table) 03/11/22 08:25 Blood Culture - Preliminary Blood No Growth after 48 hours Assessment and Plan Assessment: Impression 1. Hyponatremia, associated with hypoalbuminemia and edema. No pulmonary edema noted on chest x-ray on admission. This is deemed to be from hypervolemic hyponatremia and responding to Lasix. Sodium has improved to 134 creatinine is 0.5 and BUN is 10 2. Polyuria secondary to diuretics and responding to any immunizations of edema with low osmolarity appropriately. 3. Spinal cord stenosis possible surgeries contemplated 4. Mild degree of metabolic alkalosis bicarbs 33, improved to 27 yesterday, secondary to diuretics 5. Iron deficiency saturation 10% on 03/09/2022 6. Anemia hemoglobin is 8.8 7. Diabetes mellitus. 8. Hyperphosphatemia secondary to low intake, off of phosphorus supplements, pending phosphorus ordered. 9. Paroxysmal atrial fibrillation on medications controlled Recommendation 1. Maintain Lasix 40 mg daily 2. Continue to monitor electrolytes. 3. Discontinued phosphorus yesterday and pending labs 4. Check phosphorus level
[2022-03-14] MEDS ORDERED: PEG 3350 (236 GM/BTL) + LYTES 4,000 ML BOTTLE PO ONE (09:00)
[2022-03-14] MEDS: HYDROcodone/APAP 7.5-325MG 1 EACH TAB PO PRN ×3 (09:02→22:18)
[2022-03-14] MEDS: PANTOPRAZOLE 40 MG/10 ML VIAL IVP SCH ×2 (09:03→20:35)
--- NOTE | 2022-03-14 10:09 | P.PN ---
Subjective Progress Note Date: 03/14/22 Principal diagnosis: Melanotic stools Patient is doing about the same. No bowel function since yesterday he says. He is going to be starting his GoLYTELY in the near future. Denies pain. Objective - Vital Signs Vital signs: Vital Signs Temp 98.8 F 03/14/22 07:08 Pulse 68 03/14/22 07:08 Resp 16 03/14/22 07:08 BP 100/62 03/14/22 07:09 Pulse Ox 97 03/14/22 07:08 FiO2 21 03/04/22 07:22 Intake & Output 03/13/22 03/14/22 03/14/22 18:59 06:59 18:59 Intake Total 2160 Output Total 2300 1100 Balance -140 -1100 Intake: Oral 2160 Output: Urine 2300 1100 Other: Voiding Method Indwelling Catheter Indwelling Catheter - Exam Abdomen: Soft, nontender, nondistended - Labs CBC & Chem 7: 03/12/22 07:09 03/13/22 06:02 Labs: Abnormal Lab Results - Last 24 Hours (Table) 03/13/22 03/13/22 03/13/22 Range/Units 06:02 11:56 16:34 Sodium 134 L (135-145) mmol/L Carbon Dioxide 27.8 H (20.0-27.5) mmol/L Anion Gap 5.90 L (10.00-18.00) mmol/L Creatinine 0.5 L (0.6-1.5) mg/dL BUN/Creatinine Ratio 20.83 H (12.00-20.00) Ratio Glucose 150 H (70-110) mg/dL POC Glucose (mg/dL) 350 H 196 H (70-110) mg/dL Calcium 7.5 L (8.7-10.3) mg/dL 03/13/22 03/14/22 Range/Units 19:50 07:03 Sodium (135-145) mmol/L Carbon Dioxide (20.0-27.5) mmol/L Anion Gap (10.00-18.00) mmol/L Creatinine (0.6-1.5) mg/dL BUN/Creatinine Ratio (12.00-20.00) Ratio Glucose (70-110) mg/dL POC Glucose (mg/dL) 195 H 172 H (70-110) mg/dL Calcium (8.7-10.3) mg/dL Microbiology - Last 24 Hours (Table) 03/11/22 08:25 Blood Culture - Preliminary Blood No Growth after 48 hours Assessment and Plan (1) Melanotic stools Narrative/Plan: Patient doing well at this time. Continue plans for bowel prep today and colonoscopy tomorrow. Nothing by mouth after midnight. Current Visit: Yes Status: Acute Code(s): K92.1 - MELENA SNOMED Code(s): 3346897
[2022-03-14] MEDS: METOPROLOL TARTRATE 50 MG TAB PO SCH ×2 (10:30→20:57)
[2022-03-14] MEDS: NICOTINE 21MG/24HR PATCH TRANSDERM SCH (10:30)
[2022-03-14] MEDS: INSULIN DETEMIR (LEVEMIR) 100 UNIT/ML SYR SQ SCH (10:30)
[2022-03-14] MEDS: INSULIN ASPART (NovoLOG) 100 UNIT/ML VIAL SQ SCH ×4 (10:30→20:35)
[2022-03-14] MEDS: FOLIC ACID 1 MG TAB PO SCH (10:31)
[2022-03-14] MEDS: AMIODARONE 200 MG TAB PO SCH (10:31)
[2022-03-14] MEDS: FUROSEMIDE 10 MG/ML 4 ML VIAL IV SCH (10:57)
[2022-03-14 11:30] LABS: Glucose,Whole Blood 361 mg/dL (70-110)
--- NOTE | 2022-03-14 12:15 | P.PN ---
Subjective Progress Note Date: 03/14/22 On 03/09/2022, There is a case of new onset atrial fibrillation, DKA, in addition to a gram-negative UTI. The patient came initially to the intensive care unit because of palpitation and shortness of breath patient was stabilized. Furthermore, he was sent to the medical floor. He did have an episode of upper GI bleed and for that reason he was kept nothing by mouth overnight and the patient's was supposed to do today. In fact , the patient completed an EGD and he was found to have mild gastritis. Hemoglobin is stable and there is no other episode of GI bleeding. Hemoglobin is currently at 9.3. The patient has a that, 4.8 with a platelet count of 453. Sodium was at 129, bicarbonate of 33 with a BUN of 10 and a creatinine of 0.5. The patient has Enterobacter cultured in the urine and the patient is still receiving IV cefepime. His cardiac rhythm is sinus. He remains on amiodarone 200 mg orally and is on Lovenox was placed on hold suspecting GI bleeding. As such, the patient is not taking any form of anticoagulation for now. He does have preserved LV function and his ech ocardiogram showed no significant structural or valvular heart abnormalities. He remains on room air oxygen. He is tolerating his diet. No other significant events overnight. Still incontinent to urine and stool and the patient has a stage II coccyx ulcer and areas of deep tissue injury on his heels especially on the right foot. 03/10/2022, the patient is resting comfortably in bed and he is currently on room air oxygen. 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 He has a gram-negative urinary tract infection with Enterobacter in his being treated accordingly with IV cefepime. He does have also a stage II coccyx ulcers and DTI to his heels. The patient has no other new complaints otherwise for now. The white cell count is 11.7 with a hemoglobin of 9.1. BUN is at 6 with a creatinine of 0.5 and a sodium level of 127. Noted that hemoglobin earlier was 9.3 and dropped down to 9.1. No evidence of an acute GI bleeding at this point in time. Sodium level is also running low at 127 earlier level was 129. The patient remains on Levemir insulin 14 units along with her that he is receiving sliding scale coverage. The patient continues to be on IV Lasix to optimize his volume status. He is in negative fluid balance of at least 2.4 is over the past 24 hours. This was initiated by nephrology. The patient is also getting ready for a colonoscopy and is undergoing a bowel prep. 03/11/2022, the patient is nothing by mouth and the patient is awaiting his colonoscopy. No new complaints. He is on room air oxygen. Lunesta or difficulties. No cough or sputum production or chest tightness or heaviness point in time. He remains on IV cefepime regarding Enterobacter urinary tract infection.He remains on diuretics. He is taking Lasix 40 mg IV every 12 hours. Rest of the medication remains unchanged. The white cell count of 8.4 with a hemoglobin of 9.4. Serum bicarbonate 32 with a BUN of 5.8 and a creatinine of 0.5. Potassium is at 3.5. Sodium is 143. Potassium levels at 3.9. Blood sugar is 211. Liver function tests are normal. On today's evaluation, patient is resting comfortably in bed. The patient is being seen on follow-up on 03/12/2022. Colonoscopy was not done yesterday because of a poor bowel preparation. Dark stool was encountered during the colonoscopy. Patient is currently taking clear liquid diet. The procedure was scheduled for Tuesday. He is resting comfortably in bed. No respiratory insufficiency at this point in time. The white cell count is 10.9 with hemoglobin of 8.8. BUN is at 0.5. 03/13/2022, clinically stable, no changes in his condition. He is on room air oxygen. Hemoglobin is stable. Remains on IV cefepime. Blood work shows a BUN of 5 and a creatinine of 0.5 and a sodium level 134 03/14/2002, no new complaints and the patient is resting comfortable in bed. No signs of any GI bleeding. He was taking clear liquid diet. Colonoscopy on Tuesday. Objective - Vital Signs Vital signs: Vital Signs Temp 98.8 F 03/14/22 07:08 Pulse 64 03/14/22 10:56 Resp 16 03/14/22 07:08 BP 110/65 03/14/22 10:56 Pulse Ox 97 03/14/22 07:08 FiO2 21 03/04/22 07:22 Intake & Output 03/13/22 03/14/22 03/14/22 18:59 06:59 18:59 Intake Total 2160 Output Total 2300 1100 Balance -140 -1100 Intake: Oral 2160 Output: Urine 2300 1100 Other: Voiding Method Indwelling Catheter Indwelling Catheter Indwelling Catheter - Exam No acute distress, oriented 3. Currently on room air. Mental status is lethargic HEENT examination is grossly unremarkable. Neck supple. Full range of motion. No adenopathy thyromegaly or neck vein distention. Cardiovascular examination reveals regular rhythm rate. S1-S2 normal. No S3 or S4. No discernible murmur noted. Heart sounds are distant. Lungs reveal mostly clear breath sounds. Minimal scattered rhonchi. No wheezes or crackles. Room air saturation is 98%. Breath sounds are equal bilaterally. Abdomen soft bowel sounds are heard. No masses or tenderness. Extremities are intact. No cyanosis clubbing or edema. DTI to the heel on the right Skin is without rash or lesion. stage 2 wound on the coccyx Neurologic examination is brief but nonfocal. Profoundly weak - Labs CBC & Chem 7: 03/12/22 07:09 03/13/22 06:02 Labs: Abnormal Lab Results - Last 24 Hours (Table) 03/13/22 03/13/22 03/14/22 Range/Units 16:34 19:50 07:03 POC Glucose (mg/dL) 196 H 195 H 172 H (70-110) mg/dL 03/14/22 Range/Units 11:28 POC Glucose (mg/dL) 361 H (70-110) mg/dL Microbiology - Last 24 Hours (Table) 03/11/22 08:25 Blood Culture - Preliminary Blood No Growth after 72 hours Assessment and Plan Plan: Acute diabetic ketoacidosis, recovered. Currently, the patient is on Levemir insulin and sliding scale coverage. The patient is stable. Altered mental status, improved. Mental status is essentially within normal limits. Enterobacter cloacae urinary tract infection, on IV cefepime Leukocytosis, improved. Hypokalemia, improved. Anion gap metabolic acidosis secondary to above. New onset atrial fibrillation with rapid ventricular response, currently in sinus Poosible UGI , currently off anticoagulation, the patient was found to have some mild antral gastritis and esophagitis without evidence of any acute bleeding and EGD was completed today and hemoglobin remained stable. The patient will be restarted back on his diet. History of diabetes mellitus, on levemir Chronic and ongoing tobacco dependence. History of ADHD. Plan: No change in condition Clear liquid diet Clinically stable, no changes condition for now Normal oxygenation Colonoscopy by Tuesday Stable hemoglobin No change in his overall condition This patient continues to be extremely debilitated, lethargic and weak. He has developed stage II one on his coccyx for which a Opteform was applied The patient also has many boots to protect his heels as the patient has developed deep tissue injury to his feet bilaterally The patient is prepped for colonoscopy today and this will be completed Monitor hemoglobin No anticoagulants for now Cardiac rhythm is sinus Continue IV cefepime We'll sign off the case and leave the rest of the management to medicine
[2022-03-14] MEDS: LACTATED RINGERS 1,000 ML IV SCH (16:07)
[2022-03-14 17:09] LABS: Glucose,Whole Blood 138 mg/dL (70-110)
--- NOTE | 2022-03-14 17:55 | P.PN ---
Progress Note - Text Progress Note Date: 03/14/22 Chief Complaint: Decreased responsiveness This is a 62-year-old patient, follows with Dr. Mendez. Chronic stable medical conditions include ADHD, herniated disc lower back, smoker. Patient's son at the bedside. Patient yesterday took his medication was going to the bathroom and the son noticed that he was feeling looking weak. He became less responsive. Never passed out. Shaky. No fever or chills reported. EMS was called out. Patient is found to be in atrial fibrillation with rapid ventricular rate. In the ER started on IV heparin, given adenosine, later put on IV Cardizem. Also found to be in DKA. Put on insulin drip. Potassium was very low NG tube had to be pacemaker placement. Tired. Most of the history of pain medicine at the bedside. Patient rather tired and lethargic. Admitted with new onset of atrial fibrillation uncontrolled, diabetic k etoacidosis, acute metabolic encephalopathy, severe hypokalemia. Started on Cardizem drip, IV heparin, insulin drip. NG tube was placed for potassium replacement. March 03: ICU: Patient went back into sinus rhythm. Did have 3-4 minutes burst of A. fib with rapid ventricular rate and rhythm back in sinus rhythm. IV heparin is being changed over to subcu Lovenox 70 mg every 12. Insulin drip is discontinued. Put on Levemir 10 units. NG tube in place. Potassium being replaced. Still patient is rather lethargic. We'll get a computed tomography scan of the brain. And EEG. March 04: ICU: Remains in sinus rhythm. Has been off Cardizem drip. Slightly more awake but still lethargic. Attempted to answer questions. Potassium down to 2.7. Potassium being replaced. At magnesium. By mouth amiodarone. On IV ceftriaxone for possible UTI. Sinus rhythm. Stop Catapres increase Lopressor to 100 mg twice a day. Check ammonia level. Phosphorus being replaced. Consult neurology. CT brain negative for stroke. EEG results pending. March 05: ICU. Laying in bed. Weak. EEG showed encephalopathy. Weakness in all the limbs. Just ordered able to lift his arms. Gilbert to be from electrolyte abnormalities. Able to answer questions slowly. Did tolerate some ice chips. Nurse will try to feed the patient. Lethargic but more awake. PTOT consulted. Unstageable bluish decolorization of the sacrum and heels. NG tube discontinued. IV fluids. 03/06/2020: Patient remains in the ICU improving slowly and gradually. Still had fever yesterday of 100.7, no more fever today. Other vitals are stable. Patient remains on ceftriaxone and he is been treated for UTI with Enterobacter. He still has fever as of yesterday therefore we will check renal ultrasound. Corcalcitonin 1.03, His altered mentation most likely is secondary to metabolic/toxic encephalopathy and UTI, neurologist on the case and he ordered MRI of the thoracolumbar spine to rule out spinal stenosis, results showing multilevel lumbar spinal stenosis but is mild and there is no spinal stenosis of the thoracic spine. Cardiology the case for new-onset A. fib, currently on Lovenox and amiodarone and rate controlled. Distal on IV fluids under lactate 125 Ulcers on Protonix 40 mg oral twice a day and Lovenox 70 mg twice daily. Glucose controlled on Levemir 14 units. His hemoglobin A1c is 12.9% and his DKA on admission resolved 03/07/2022 Patient still feels generally weak and lethargic. However he has good appetite. He denies chest pain or abdominal pain. No dyspnea. He looks comfortable in bed. He had 1 small bowel movement, no diarrhea. Zee catheter in place with yellow urine. Patient procalcitonin significantly improved down to 0.15, however his culture showed Enterobacter resistant to ceftriaxone. Patient currently on oral Levaquin. We going to consult infectious disease team. WBC is 11.3. Sodium 129. Patient fever on admission has subsided since then. Neurologist on the case and recommended EMG and nerve conduction study as an outpatient. Patient currently on Lovenox 70 mg twice a day, Levemir insulin 14 units and amiodarone. Also he is on oral Protonix twice daily and IV fluids under lactate at 125 Patient tolerates some diet, lower rate elected down to 75 mL/h renal ultrasound order, follow-up results 03/08/2022 Patient is seen and evaluated in follow-up this morning with multiple medical consultations including neurology, pulmonary, infectious disease, orthopedics following. Plan is for possible lumbar decompression sometime this week. Have consulted general surgery as per nursing report patient had a large dark tarry stool this morning. Hemoglobin is stable at 9.7. Patient's sodium is 129 with a potassium of 3.7 current creatinine is stable at 0.42. Blood sugars have been elevated and will continue current regimen. WBC remains elevated and patient is maintained on cefepime and will continue. Oral intake continues to be fair to poor and patient continues to report back pain. Patient has been febrile. Patient denies chest pain or shortness of breath. Patient is extremely lethargic with generalized edema noted throughout. Will consult nephrology for hyponatremia 03/09/2022 Patient is seen and evaluated in follow-up this morning. Multiple medical consultations following including orthopedics, general surgery, nephrology, pulmonary, and infectious disease. Plan was for tentative decompression surgery with orthopedics although sodium continues to be low and nursing reported dark tarry stools and is being evaluated with EGD/colonoscopy that is to be done on . Patient will start bowel prep tomorrow and will monitor closely of labs. Abdomen ultrasound was ordered as well and patient is continue with indwelling Zee catheter. Patient currently maintained on antibiotics and will continue. Patient is maintained on clear liquids and tolerating appears more awake and alert than yesterday. Patient continues to be weak and denies chest pain or shortness of breath. Patient labs currently pending and nephrology is following for hyponatremia and was started on Lasix. 03/10/2022: I resumed care of the patient today Tolerating clear liquids. Tired. Pending surgery-Dr. Newton . Back pain controlled. Patient's had black starry stools. For colonoscopy per Dr. Pabon. 03/11/2022: Patient had soft brown stool today. Some abdominal discomfort. Pending colonoscopy today. Received bowel preparation. Patient received 1 dose of Samsca yesterday. Also IV Ferrlecit. 03/12/2022. Colonoscopic could not be done yesterday because of poor bowel preparation. Dark stool was encountered during start of colonoscopy. Patient back on clear liquids. Now rescheduled for Tuesday. 03/13/2022: Patient had bowel preparation done tomorrow for colonoscopy Tuesday. Tolerating liquid diet. 03/14/2022: On liquid diet. Getting bowel preparation for tomorrow. Otherwise stable. Discussed with patient. Active Medications Acetaminophen (Acetaminophen Tab 325 Mg Tab) 650 mg PO Q6HR PRN PRN Reason: Mild Pain or Fever > 100.5 Last Admin: 03/12/22 23:11 Dose: 650 mg Hydrocodone Bitart/Acetaminophen (Hydrocodone/Apap 7.5-325mg 1 Each Tab) 1 each PO Q6HR PRN PRN Reason: Pain Last Admin: 03/14/22 16:06 Dose: 1 each Al Hydroxide/Mg Hydroxide (Mag Hydrox/Al Hydrox/Simeth 30 Ml Cup) 15 ml PO Q6HR PRN PRN Reason: Indigestion Amiodarone HCl (Amiodarone 200 Mg Tab) 200 mg PO BID [facility] Last Admin: 03/14/22 10:31 Dose: 200 mg Dextrose/Water (Dextrose 50% Syringe 50 Ml) 25 ml IVP PER PROTOCOL PRN; Protocol PRN Reason: Hypoglycemia Last Admin: 03/11/22 16:43 Dose: 25 ml Dextrose/Water (Dextrose 50% Syringe 50 Ml) 50 ml IVP PER PROTOCOL PRN; Protocol PRN Reason: Hypoglycemia Folic Acid (Folic Acid 1 Mg Tab) 1 mg PO DAILY [facility] Last Admin: 03/14/22 10:31 Dose: 1 mg Furosemide (Furosemide 10 Mg/Ml 4 Ml Vial) 40 mg IV DAILY [facility] Last Admin: 03/14/22 10:57 Dose: 40 mg Lactated Ringer's (Lactated Ringers) 1,000 mls @ 20 mls/hr IV .Q24H [facility] Last Admin: 03/14/22 16:07 Dose: Not Given Insulin Aspart (Insulin Aspart (Novolog) 100 Unit/Ml Vial) 0 unit SQ ACHS [facility]; Protocol Last Admin: 03/14/22 17:13 Dose: Not Given Insulin Detemir (Insulin Detemir (Levemir) 100 Unit/Ml Syr) 14 unit SQ DAILY@0700 [facility] Last Admin: 03/14/22 10:30 Dose: 14 unit Metoprolol Tartrate (Metoprolol Tartrate 50 Mg Tab) 100 mg PO BID [facility] Last Admin: 03/14/22 10:30 Dose: 100 mg Miscellaneous Information (Potassium Replacement Protocol 1 Each Misc) 1 each MISCELLANE DAILY PRN; Protocol PRN Reason: Per Protocol Naloxone HCl (Naloxone 0.4 Mg/Ml 1 Ml Vial) 0.2 mg IV Q2M PRN PRN Reason: Opioid Reversal Nicotine (Nicotine 21mg/24hr Patch) 1 patch TRANSDERM DAILY [facility] Last Admin: 03/14/22 10:30 Dose: 1 patch Ondansetron HCl (Ondansetron 4 Mg/2 Ml Vial) 4 mg IVP Q8HR PRN PRN Reason: Nausea And Vomiting Pantoprazole Sodium (Pantoprazole 40 Mg/10 Ml Vial) 40 mg IVP BID [facility] Last Admin: 03/14/22 09:03 Dose: 40 mg Tramadol HCl (Tramadol 50 Mg Tab) 50 mg PO QID PRN PRN Reason: Pain Last Admin: 03/13/22 01:15 Dose: 50 mg Past medical history to include: Diabetes, possible ADHD, chronic low back pain, herniated disc, Social history: Son lives with the patient. 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 Smokes about a pack a day. Alcohol occasionally. Physical examination: VITAL SIGNS: 98.5, 76, 18, 100/62, 99% GENERAL: Tired, laying in bed EYES: Pupils equal. Conjunctiva normal. HEENT: External appearance of nose and ears normal, oral cavity mucous membranes moist NECK: JVD not raised; masses not palpable. HEART: Heart sounds normal; no edema. LUNGS: Respiratory rate normal; decreased breath sounds. ABDOMEN: Soft, nontender, liver spleen not palpable, no masses palpable. PSYCH: Answering questions appropriately INVESTIGATIONS, reviewed in the clinical context: March 13: Sodium 134 potassium 4.4 creatinine 0.5 March 12: WBC 10.9 hemoglobin 8.8 progression 3.6 BUN 8 creatinine 0.58 March 11: WBC 8.4 hemoglobin 9.4 platelets 544 potassium 3.9 creatinine 0.5 March 10: WBC 11.7 hemoglobin 9.1 platelets 519 sodium 127 potassium 3.9 BUN 6 creatinine 0.51 serum osmolality 271 HbA1c: 12.9 Computed tomography scan brain: No acute processes reported March 04: WBC 16.6 hemoglobin 9.8 potassium 2.7 creatinine 0.42 phosphorus 1.6 March 03: Sodium 136 potassium 3 BUN 22 creatinine 0.50 albumin 2.2 WBC 36.7 hemoglobin 14.7 platelets 470 potassium 2.7 sodium 128 bicarb 9 BUN 25 crit 0.89 blood glucose 564 UA positive for ketone 4+, leukoesterase negative for nitrite Urine drug screen: Negative Serum acetone positive EKG tracing personally reviewed by me-heart rate 171, ST segment depression Chest x-ray film personally reviewed by me-prominent pulmonary artery. Elevated right diaphragm. 2-D echocardiogram: EF 55-60%. Assessment and plan: -Paroxysmal atrial fibrillation with a rapid ventricular rate, back in sinus rhythm Lopressor 100 mg twice a day. Oral amiodarone -IV heparin -discontinued Follow PTT -Diabetic ketoacidosis: Resolved -Black starry stools/acute GI bleed.. EGD showed mild gastritis and esophagitis. Coloscopy rescheduled for Tuesday per Dr. Pabon -Diabetes mellitus type 2, uncontrolled with hyperglycemia Levemir 14 units subcu daily. Follow Accu-Cheks -Acute metabolic encephalopathy, multifactorial, better Computed tomography scan of brain unremarkable.. EEG-encephalopathy. No seizure.. Follow with Neurology -Severe hypokalemia: Better Aggressive replacement of potassium. Follow-up magnesia. -Hypophosphatemia: Better Replace phosphorus -COPD in a current smoker Bronchodilators as needed -Chronic nicotine dependence, cigarette smoker Nicotine patch -Hypoosmolar, hyponatremia: Better Hold of free fluid intake. Received IV Samsca. -L2 S1 laminectomy and decompression, with lower extremity weakness for central spinal cord stenosis. Per Dr. Newton Coloscopy rescheduled for Tuesday. Bowel prep today. Cutback amiodarone 200 mg daily. Discussed with patient.
[2022-03-14 20:25] LABS: Glucose,Whole Blood 181 mg/dL (70-110)
[2022-03-15] MEDS: HYDROmorphone 1 MG/ML 1 ML SYRINGE IVP PRN ×4 (01:22→20:14)
[2022-03-15] MEDS: HYDROcodone/APAP 7.5-325MG 1 EACH TAB PO PRN (05:57)
[2022-03-15 07:15] LABS: Glucose,Whole Blood 115 mg/dL (70-110)
[2022-03-15] MEDS: INSULIN ASPART (NovoLOG) 100 UNIT/ML VIAL SQ SCH ×4 (07:18→20:13)
[2022-03-15] MEDS: PANTOPRAZOLE 40 MG/10 ML VIAL IVP SCH ×2 (08:14→20:14)
[2022-03-15] MEDS: AMIODARONE 200 MG TAB PO SCH (08:14)
[2022-03-15] MEDS: FOLIC ACID 1 MG TAB PO SCH (08:14)
[2022-03-15] MEDS: FUROSEMIDE 10 MG/ML 4 ML VIAL IV SCH (08:15)
[2022-03-15] MEDS: METOPROLOL TARTRATE 50 MG TAB PO SCH ×2 (08:15→20:14)
[2022-03-15] MEDS: NICOTINE 21MG/24HR PATCH TRANSDERM SCH (08:15)
[2022-03-15] MEDS: INSULIN DETEMIR (LEVEMIR) 100 UNIT/ML SYR SQ SCH (08:16)
[2022-03-15 08:22] LABS: Basophils % (A) 0 %; Eosinophils # (A) 0.2 k/uL (0-0.7); Eosinophils % (A) 2 %; HCT 25.8 % (39.0-53.0); HGB 8.6 gm/dL (13.0-17.5); Hypochromasia Slight; Lymphocytes # (A) 1.3 k/uL (1.0-4.8); Lymphocytes % (A) 13 %; MCH 28.5 pg (25.0-35.0); MCHC 33.3 g/dL (31.0-37.0); MCV 85.6 fL (80.0-100.0); Monocytes # (A) 0.3 k/uL (0-1.0); Monocytes % (A) 3 %; Neutrophils # (A) 8.1 k/uL (1.3-7.7); Neutrophils % (A) 81 %; Platelet Count 391 k/uL (150-450); RBC 3.01 m/uL (4.30-5.90); RDW 14.2 % (11.5-15.5)
[2022-03-15 08:42] LABS: African American GFR (CKD) >90 (>60 ml/min/1.73 sqM); Anion Gap 4 mmol/L; Blood Urea Nitrogen 10 mg/dL (9-20); Calcium 7.4 mg/dL (8.4-10.2); Carbon Dioxide 31 mmol/L (22-30); Chloride 94 mmol/L (98-107); Glucose 109 mg/dL (74-99); Non-African American GFR(CKD) >90 (>60 ml/min/1.73 sqM); Potassium 4.2 mmol/L (3.5-5.1); Sodium 129 mmol/L (137-145)
--- NOTE | 2022-03-15 10:34 | P.PN ---
Progress Note - Text Progress Note Date: 03/15/22 Chief Complaint: Low back pain This is a 62-year-old patient, follows with Dr. Mendez. Chronic stable medical conditions include ADHD, herniated disc lower back, smoker. Patient's son at the bedside. Patient yesterday took his medication was going to the bathroom and the son noticed that he was feeling looking weak. He became less responsive. Never passed out. Shaky. No fever or chills reported. EMS was called out. Patient is found to be in atrial fibrillation with rapid ventricular rate. In the ER started on IV heparin, given adenosine, later put on IV Cardizem. Also found to be in DKA. Put on insulin drip. Potassium was very low NG tube had to be pacemaker placement. Tired. Most of the history of pain medicine at the bedside. Patient rather tired and lethargic. Admitted with new onset of atrial fibrillation uncontrolled, diabetic ketoacidosis, acute metabolic encephalopathy, severe hypokalemia. Started on Cardizem drip, IV heparin, insulin drip. NG tube was placed for potassium replacement. March 03: ICU: Patient went back into sinus rhythm. Did have 3-4 minutes burst of A. fib with rapid ventricular rate and rhythm back in sinus rhythm. IV heparin is being changed over to subcu Lovenox 70 mg every 12. Insulin drip is discontinued. Put on Levemir 10 units. NG tube in place. Potassium being replaced. Still patient is rather lethargic. We'll get a computed tomography scan of the brain. And EEG. March 04: ICU: Remains in sinus rhythm. Has been off Cardizem drip. Slightly more awake but still lethargic. Attempted to answer questions. Potassium down to 2.7. Potassium being replaced. At magnesium. By mouth amiodarone. On IV ceftriaxone for possible UTI. Sinus rhythm. Stop Catapres increase Lopressor to 100 mg twice a day. Check ammonia level. Phosphorus being replaced. Consult neurology. CT brain negative for stroke. EEG results pending. March 05: ICU. Laying in bed. Weak. EEG showed encephalopathy. Weakness in all the limbs. Just ordered able to lift his arms. [place] to be from electrolyte abnormalities. Able to answer questions slowly. Did tolerate some ice chips. Nurse will try to feed the patient. Lethargic but more awake. PTOT consulted. Unstageable bluish decolorization of the sacrum and heels. NG tube discontinued. IV fluids. 03/06/2020: Patient remains in the ICU improving slowly and gradually. Still had fever yesterday of 100.7, no more fever today. Other vitals are stable. Patient remains on ceftriaxone and he is been treated for UTI with Enterobacter. He still has fever as of yesterday therefore we will check renal ultrasound. Corcalcitonin 1.03, His altered mentation most likely is secondary to metabolic/toxic encephalopathy and UTI, neurologist on the case and he ordered MRI of the thoracolumbar spine to rule out spinal stenosis, results showing multilevel lumbar spinal stenosis but is mild and there is no spinal stenosis of the thoracic spine. Cardiology the case for new-onset A. fib, currently on Lovenox and amiodarone and rate controlled. Distal on IV fluids under lactate 125 Ulcers on Protonix 40 mg oral twice a day and Lovenox 70 mg twice daily. Glucose controlled on Levemir 14 units. His hemoglobin A1c is 12.9% and his DKA on admission resolved 03/07/2022 Patient still feels generally weak and lethargic. However he has good appetite. He denies chest pain or abdominal pain. No dyspnea. He looks comfortable in bed. He had 1 small bowel movement, no diarrhea. Zee catheter in place with yellow urine. Patient procalcitonin significantly improved down to 0.15, however his culture showed Enterobacter resistant to ceftriaxone. Patient currently on oral Levaquin. We going to consult infectious disease team. WBC is 11.3. Sodium 129. Patient fever on admission has subsided since then. Neurologist on the case and recommended EMG and nerve conduction study as an outpatient. Patient currently on Lovenox 70 mg twice a day, Levemir insulin 14 units and amiodarone. Also he is on oral Protonix twice daily and IV fluids under lactate at 125 Patient tolerates some diet, lower rate elected down to 75 mL/h renal ultrasound order, follow-up results 03/08/2022 Patient is seen and evaluated in follow-up this morning with multiple medical consultations including neurology, pulmonary, infectious disease, orthopedics following. Plan is for possible lumbar decompression sometime this week. Have consulted general surgery as per nursing report patient had a large dark tarry stool this morning. Hemoglobin is stable at 9.7. Patient's sodium is 129 with a potassium of 3.7 current creatinine is stable at 0.42. Blood sugars have been elevated and will continue current regimen. WBC remains elevated and patient is maintained on cefepime and will continue. Oral intake continues to be fair to poor and patient continues to report back pain. Patient has been febrile. Patient denies chest pain or shortness of breath. Patient is extremely lethargic with generalized edema noted throughout. Will consult nephrology for hyponatremia 03/09/2022 Patient is seen and evaluated in follow-up this morning. Multiple medical consultations following including orthopedics, general surgery, nephrology, pulmonary, and infectious disease. Plan was for tentative decompression surgery with orthopedics although sodium continues to be low and nursing reported dark tarry stools and is being evaluated with EGD/colonoscopy that is to be done on . Patient will start bowel prep tomorrow and will monitor closely of labs. Abdomen ultrasound was ordered as well and patient is continue with indwelling Zee catheter. Patient currently maintained on antibiotics and will continue. Patient is maintained on clear liquids and tolerating appears more awake and alert than yesterday. Patient continues to be weak and denies chest pain or shortness of breath. Patient labs currently pending and nephrology is following for hyponatremia and was started on Lasix. 03/10/2022: I resumed care of the patient today Tolerating clear liquids. Tired. Pending surgery-Dr. Newton . Back pain controlled. Patient's had black starry stools. For colonoscopy per Dr. Pabon. 03/11/2022: Patient had soft brown stool today. Some abdominal discomfort. Pending colonoscopy today. Received bowel preparation. Patient received 1 dose of Samsca yesterday. Also IV Ferrlecit. 03/12/2022. Colonoscopic could not be done yesterday because of poor bowel preparation. Dark stool was encountered during start of colonoscopy. Patient back on clear liquids. Now rescheduled for Tuesday. 03/13/2022: Patient had bowel preparation done tomorrow for colonoscopy Tuesday. Tolerating liquid diet. 03/14/2022: On liquid diet. Getting bowel preparation for tomorrow. Otherwise stable. Discussed with patient. 03/15/2022: Complaining of mid back pain. Received bowel prep yesterday. Had 2- 3 bowel movements. Possible endoscopy today. Awaiting decision from Dr. Newton for lumbar surgery either this admission nor following some rehab Active Medications Acetaminophen (Acetaminophen Tab 325 Mg Tab) 650 mg PO Q6HR PRN PRN Reason: Mild Pain or Fever > 100.5 Last Admin: 03/12/22 23:11 Dose: 650 mg Hydrocodone Bitart/Acetaminophen (Hydrocodone/Apap 7.5-325mg 1 Each Tab) 1 each PO Q6HR PRN PRN Reason: Pain Last Admin: 03/15/22 05:57 Dose: 1 each Al Hydroxide/Mg Hydroxide (Mag Hydrox/Al Hydrox/Simeth 30 Ml Cup) 15 ml PO Q6HR PRN PRN Reason: Indigestion Amiodarone HCl (Amiodarone 200 Mg Tab) 200 mg PO DAILY [facility] Last Admin: 03/15/22 08:14 Dose: 200 mg Dextrose/Water (Dextrose 50% Syringe 50 Ml) 25 ml IVP PER PROTOCOL PRN; Protocol PRN Reason: Hypoglycemia Last Admin: 03/11/22 16:43 Dose: 25 ml Dextrose/Water (Dextrose 50% Syringe 50 Ml) 50 ml IVP PER PROTOCOL PRN; Protocol PRN Reason: Hypoglycemia Folic Acid (Folic Acid 1 Mg Tab) 1 mg PO DAILY [facility] Last Admin: 03/15/22 08:14 Dose: 1 mg Furosemide (Furosemide 10 Mg/Ml 4 Ml Vial) 40 mg IV DAILY [facility] Last Admin: 03/15/22 08:15 Dose: 40 mg Hydromorphone HCl (Hydromorphone 1 Mg/Ml 1 Ml Syringe) 1 mg IVP Q3HR PRN PRN Reason: Pain Last Admin: 03/15/22 08:39 Dose: 1 mg Lactated Ringer's (Lactated Ringers) 1,000 mls @ 20 mls/hr IV .Q24H [facility] Last Admin: 03/14/22 16:07 Dose: Not Given Insulin Aspart (Insulin Aspart (Novolog) 100 Unit/Ml Vial) 0 unit SQ ACHS [facility]; Protocol Last Admin: 03/15/22 07:18 Dose: Not Given Insulin Detemir (Insulin Detemir (Levemir) 100 Unit/Ml Syr) 14 unit SQ DAILY@0700 [facility] Last Admin: 03/15/22 08:16 Dose: Not Given Metoprolol Tartrate (Metoprolol Tartrate 50 Mg Tab) 100 mg PO BID [facility] Last Admin: 03/15/22 08:15 Dose: 100 mg Miscellaneous Information (Potassium Replacement Protocol 1 Each Misc) 1 each MISCELLANE DAILY PRN; Protocol PRN Reason: Per Protocol Naloxone HCl (Naloxone 0.4 Mg/Ml 1 Ml Vial) 0.2 mg IV Q2M PRN PRN Reason: Opioid Reversal Nicotine (Nicotine 21mg/24hr Patch) 1 patch TRANSDERM DAILY [facility] Last Admin: 03/15/22 08:15 Dose: 1 patch Ondansetron HCl (Ondansetron 4 Mg/2 Ml Vial) 4 mg IVP Q8HR PRN PRN Reason: Nausea And Vomiting Pantoprazole Sodium (Pantoprazole 40 Mg/10 Ml Vial) 40 mg IVP BID [facility] Last Admin: 03/15/22 08:14 Dose: 40 mg Tramadol HCl (Tramadol 50 Mg Tab) 50 mg PO QID PRN PRN Reason: Pain Last Admin: 03/13/22 01:15 Dose: 50 mg Past medical history to include: Diabetes, possible ADHD, chronic low back pain, herniated disc, Social history: Son lives with the patient. Worked at a [employer]. Smokes about a pack a day. Alcohol occasionally. Physical examination: VITAL SIGNS: 98.2, 67, 16, 99/56, 96% room air GENERAL: Awake, laying in bed EYES: Pupils equal. Conjunctiva normal. HEENT: External appearance of nose and ears normal, oral cavity mucous membranes moist NECK: JVD not raised; masses not palpable. HEART: Heart sounds normal; no edema. LUNGS: Respiratory rate normal; decreased breath sounds. ABDOMEN: Soft, nontender, liver spleen not palpable, no masses palpable. PSYCH: Answering questions appropriately INVESTIGATIONS, reviewed in the clinical context: March 15: WBC 10 hemoglobin 8.6 sodium 129 potassium 4.2 creatinine 0.55 March 10: WBC 11.7 hemoglobin 9.1 platelets 519 sodium 127 potassium 3.9 BUN 6 creatinine 0.51 serum osmolality 271 HbA1c: 12.9 Computed tomography scan brain: No acute processes reported March 03: Sodium 136 potassium 3 BUN 22 creatinine 0.50 albumin 2.2 WBC 36.7 hemoglobin 14.7 platelets 470 potassium 2.7 sodium 128 bicarb 9 BUN 25 crit 0.89 blood glucose 564 UA positive for ketone 4+, leukoesterase negative for nitrite Urine drug screen: Negative Serum acetone positive EKG tracing personally reviewed by me-heart rate 171, ST segment depression Chest x-ray film personally reviewed by me-prominent pulmonary artery. Elevated right diaphragm. 2-D echocardiogram: EF 55-60%. Assessment and plan: -Paroxysmal atrial fibrillation with a rapid ventricular rate, back in sinus rhythm Lopressor 100 mg twice a day. Oral amiodarone -IV heparin -discontinued Follow PTT -Diabetic ketoacidosis: Resolved -Black starry stools/acute GI bleed.. EGD showed mild gastritis and esophagitis. Coloscopy pending a free today, per Dr. Pabon -Diabetes mellitus type 2, uncontrolled with hyperglycemia Levemir 14 units subcu daily. Follow Accu-Cheks -Acute metabolic encephalopathy, multifactorial, better Computed tomography scan of brain unremarkable.. EEG-encephalopathy. No seizure.. Follow with Neurology -Severe hypokalemia: Better Aggressive replacement of potassium. Follow-up magnesia. -Hypophosphatemia: Better Replace phosphorus -COPD in a current smoker Bronchodilators as needed -Chronic nicotine dependence, cigarette smoker Nicotine patch -Hypoosmolar, hyponatremia: Better Hold of free fluid intake. Received IV Samsca. -L2 S1 laminectomy and decompression, with lower extremity weakness for central spinal cord stenosis. Per Dr. Newton Possible coloscopy today. Medications to continue. Lumbar surgery per Dr. Newton will await his decision.
[2022-03-15 11:55] LABS: Glucose,Whole Blood 119 mg/dL (70-110)
--- NOTE | 2022-03-15 12:08 | P.PN ---
Subjective Progress Note Date: 03/15/22 Principal diagnosis: 1. 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 Bilateral lower extremity weakness Patient was seen at bedside this morning lying semirecumbent position. Patient appears somewhat fatigued during encounter. Patient says he is awaiting to go for colonoscopy procedure later today. Patient mentions he is still unable to move his RLE. Patient says he can move his left leg a bit. Patient is complaining of low back pain that he says has been increasing over the past couple days. Patient denies saddle anesthesia. Patient denies loss of bowel/bladder control. Patient denies chest pain, fever, shortness breath, nausea, vomiting, change in vision. Objective - Vital Signs Vital signs: Vital Signs Temp 98.2 F 03/15/22 08:00 Pulse 67 03/15/22 08:00 Resp 16 03/15/22 08:00 BP 99/56 03/15/22 08:00 Pulse Ox 96 03/15/22 08:00 FiO2 21 03/04/22 07:22 Intake & Output 03/14/22 03/15/22 03/15/22 18:59 06:59 18:59 Intake Total 240 Output Total 1400 2620 Balance -1160 -2620 Intake: IV 240 Lactated Ringers 1,000 ml 240 @ 20 mls/hr IV .Q24H [facility] Rx#:[id number] Output: Urine 1400 2620 Uretheral (Zee) 1400 1010 Other: Voiding Method Indwelling Catheter Indwelling Catheter # Bowel Movements 1 - Exam Patient is somewhat lethargic during exam. Patient is alert and oriented 3 Inspection: Negative for any open fractures, significant ecchymosis/erythema/ulcers. Right upper extremity and bilateral lower extremities are somewhat edematous Sensation: Sensation is equal, symmetric, bilaterally intact throughout the upp er and lower extremities on exam Palpation: Patient does have some tenderness to palpation along the paraspinal region in the lumbar spine and in midline. NTTP throughout rest exam. Range of motion: Patient has full range of motion bilateral upper extremities on exam. Patient is unable to flex/extend hips bilaterally on exam. Patient unable to flex/extend right knee. Patient is able to flex/extend left knee somewhat. Patient is able to wiggle toes in left lower extremity. Patient is unable to plantar/dorsiflex either ankle. Patient does have good range passive range of motion on exam and knee flexion/extension and hip flexion/extension. 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 4+/5 in resisted shoulder elevation, external/internal rotation, elbow flexion/extension and wrist flexion/extension. Patient unable to perform motor exam in bilateral knees and hips and plantar/dorsiflexion bilaterally Neurovascular status: Radial pulse intact, 2+ bilaterally. Cap refill under 3 seconds in digits upper extremities. Special tests: Negative Pb's bilaterally. Negative clonus bilaterally. Negative Homans bilaterally. - Labs CBC & Chem 7: 03/15/22 08:06 03/15/22 08:06 Labs: Abnormal Lab Results - Last 24 Hours (Table) 03/14/22 03/14/22 03/14/22 Range/Units 11:28 17:08 20:24 RBC (4.30-5.90) m/uL Hgb (13.0-17.5) gm/dL Hct (39.0-53.0) % Neutrophils # (1.3-7.7) k/uL Sodium (137-145) mmol/L Chloride (98-107) mmol/L Carbon Dioxide (22-30) mmol/L Creatinine (0.66-1.25) mg/dL Glucose (74-99) mg/dL POC Glucose (mg/dL) 361 H 138 H 181 H (70-110) mg/dL Calcium (8.4-10.2) mg/dL 03/15/22 03/15/22 03/15/22 Range/Units 07:14 08:06 08:06 RBC 3.01 L (4.30-5.90) m/uL Hgb 8.6 L (13.0-17.5) gm/dL Hct 25.8 L (39.0-53.0) % Neutrophils # 8.1 H (1.3-7.7) k/uL Sodium 129 L (137-145) mmol/L Chloride 94 L (98-107) mmol/L Carbon Dioxide 31 H (22-30) mmol/L Creatinine 0.55 L (0.66-1.25) mg/dL Glucose 109 H (74-99) mg/dL POC Glucose (mg/dL) 115 H (70-110) mg/dL Calcium 7.4 L (8.4-10.2) mg/dL Microbiology - Last 24 Hours (Table) 03/11/22 08:25 Blood Culture - Preliminary Blood No Growth after 72 hours Assessment and Plan Assessment: 1. 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 Bilateral lower extremity weakness Plan: 1. Degenerative disc disease; central spinal cord stenosis at L2-L5; Bilateral lower extremity weakness - patient seen at bedside this morning. MRI of thoracic is lumbar spine have been reviewed. There is degenerative disc disease throughout the spine as well as some moderate-severe spinal canal stenosis from L2 through L5 and degenerativ echanges in cervical spine. Patient awaiting colonscopy scheduled for later today, 03/15/2022. We will await until gen surg is able to perform colonscopy before proceeding with any potential orthopedic intervention. We will continue to follow patient with plan for potential spine surgery in the near future - L2-pelvis decompression and fusion. We will continue to follow patient during his stay. 2. Appreciate medical, pulmonology, cardiology/vascular management, nephrology, gen surg management. 3. Pain management - Tylenol; tramadol; [place] 4. DVT prophylaxis - Lovenox 5. GI prophylaxis - Maalox; protonix 6. PT/OT - weightbearing as tolerated with walker Time with Patient: Less than 30
[2022-03-15] MEDS: LACTATED RINGERS 1,000 ML IV SCH (12:16)
[2022-03-15] MEDS ORDERED: IV FLUID CONTINUATION 1,000 ML IV ONE ×2 (12:49)
[2022-03-15] MEDS ORDERED: PROPOFOL 10 MG/ML 20 ML VIAL IV ONE (12:59)
--- NOTE | 2022-03-15 13:07 | P.OP ---
Date of Procedure: 03/15/22 Preoperative Diagnosis: GI bleed Postoperative Diagnosis: Inadequate bowel prep Procedure(s) Performed: Attempted colonoscopy Anesthesia: MAC Surgeon: Neal Pabon Pathology: none sent Condition: stable Disposition: PACU Description of Procedure: Patient's placed on the endoscopy table in the lateral position. He received IV sedation. Digital rectal exam was performed revealed a large amount of solid stool the rectum. This point the patient's colonoscopy was canceled.
--- NOTE | 2022-03-15 13:20 | P.PN ---
Subjective Patient is seen for follow-up for hyponatremia., Hypervolemic and currently being diuresed. Serum sodium had improved to about 134 yesterday. Today it is at 129. No complaints today Maintained on Lasix 40 mg IV daily Objective - Vital Signs Vital signs: Vital Signs Temp 98.2 F 03/15/22 08:00 Pulse 67 03/15/22 08:00 Resp 16 03/15/22 08:00 BP 99/56 03/15/22 08:00 Pulse Ox 96 03/15/22 08:00 FiO2 21 03/04/22 07:22 Intake & Output 03/14/22 03/15/22 03/15/22 18:59 06:59 18:59 Intake Total 240 50 Output Total 1400 2620 1100 Balance -1160 -2620 -1050 Intake: IV 240 50 Lactated Ringers 1,000 ml 240 @ 20 mls/hr IV .Q24H [facility] Rx#:[id number] Output: Urine 1400 2620 1100 Uretheral (Zee) 1400 1010 Other: Voiding Method Indwelling Catheter Indwelling Catheter # Bowel Movements 1 1 - Exam Awake, comfortable, not in any acute distress Examination of the heart S1 and S2 Examination lungs bilateral breath sounds are heard Abdomen is soft nontender Examination of lower extremity shows edema 1+ bilaterally 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 exam grossly intact - Labs CBC & Chem 7: 03/15/22 08:06 03/15/22 08:06 Labs: Abnormal Lab Results - Last 24 Hours (Table) 03/14/22 03/14/22 03/15/22 Range/Units 17:08 20:24 07:14 RBC (4.30-5.90) m/uL Hgb (13.0-17.5) gm/dL Hct (39.0-53.0) % Neutrophils # (1.3-7.7) k/uL Sodium (137-145) mmol/L Chloride (98-107) mmol/L Carbon Dioxide (22-30) mmol/L Creatinine (0.66-1.25) mg/dL Glucose (74-99) mg/dL POC Glucose (mg/dL) 138 H 181 H 115 H (70-110) mg/dL Calcium (8.4-10.2) mg/dL 03/15/22 03/15/22 03/15/22 Range/Units 08:06 08:06 11:54 RBC 3.01 L (4.30-5.90) m/uL Hgb 8.6 L (13.0-17.5) gm/dL Hct 25.8 L (39.0-53.0) % Neutrophils # 8.1 H (1.3-7.7) k/uL Sodium 129 L (137-145) mmol/L Chloride 94 L (98-107) mmol/L Carbon Dioxide 31 H (22-30) mmol/L Creatinine 0.55 L (0.66-1.25) mg/dL Glucose 109 H (74-99) mg/dL POC Glucose (mg/dL) 119 H (70-110) mg/dL Calcium 7.4 L (8.4-10.2) mg/dL Microbiology - Last 24 Hours (Table) 03/11/22 08:25 Blood Culture - Preliminary Blood No Growth after 96 hours Assessment and Plan Assessment: 1. Hyponatremia. Hypervolemic, maintained on diuretics. 2. Right adrenal mass suggestive of benign adrenal adenoma on CAT scan done 03/09/2022. Doubt hyperaldosteronism state as patient has no history of hypertension and blood pressure is fairly well controlled without any antihypertensive meds. Cortisol level normal. 3. Metabolic alkalosis secondary to bicarb supplementation. Bicarb supplementation stopped 03/09/2022. 4. Central spinal cord stenosis. Surgery pending. 5. Anemia. Concern for GI bleed. EGD showed mild gastritis without any acute bleed. Colonoscopy tomorrow. Hemoglobin 9.1 today. Iron deficiency noted. 6. Diabetes mellitus. 7. Fluid overload improved, 8. UTI with urine culture growing enterococcus cloacae and Betty Plan: Continue with current dose of Lasix Repeat Samsca today. Repeat labs in a.m.
[2022-03-15 16:18] LABS: Glucose,Whole Blood 137 mg/dL (70-110)
[2022-03-15 20:06] LABS: Glucose,Whole Blood 271 mg/dL (70-110)
[2022-03-16] MEDS: HYDROmorphone 1 MG/ML 1 ML SYRINGE IVP PRN ×3 (00:22→09:52)
[2022-03-16 07:21] LABS: Glucose,Whole Blood 160 mg/dL (70-110)
[2022-03-16] MEDS: HYDROcodone/APAP 7.5-325MG 1 EACH TAB PO PRN ×2 (07:39→16:07)
[2022-03-16] MEDS: INSULIN DETEMIR (LEVEMIR) 100 UNIT/ML SYR SQ SCH (07:43)
[2022-03-16] MEDS: INSULIN ASPART (NovoLOG) 100 UNIT/ML VIAL SQ SCH ×4 (07:44→21:47)
[2022-03-16] MEDS: METOPROLOL TARTRATE 50 MG TAB PO SCH ×2 (09:46→21:15)
[2022-03-16] MEDS: FOLIC ACID 1 MG TAB PO SCH (09:47)
[2022-03-16] MEDS: AMIODARONE 200 MG TAB PO SCH (09:47)
[2022-03-16] MEDS: PANTOPRAZOLE 40 MG/10 ML VIAL IVP SCH ×2 (09:49→21:15)
[2022-03-16] MEDS: NICOTINE 21MG/24HR PATCH TRANSDERM SCH (09:52)
[2022-03-16] MEDS: FUROSEMIDE 10 MG/ML 4 ML VIAL IV SCH (09:52)
[2022-03-16] MEDS ORDERED: TOLVAPTAN 15 MG 1/2 TABLET PO ONE (10:00)
[2022-03-16 11:14] LABS: African American GFR (CKD) >90 (>60 ml/min/1.73 sqM); Anion Gap 6 mmol/L; Blood Urea Nitrogen 9 mg/dL (9-20); Calcium 7.3 mg/dL (8.4-10.2); Carbon Dioxide 27 mmol/L (22-30); Chloride 93 mmol/L (98-107); Glucose 211 mg/dL (74-99); Non-African American GFR(CKD) >90 (>60 ml/min/1.73 sqM); Potassium 4.2 mmol/L (3.5-5.1); Sodium 126 mmol/L (137-145)
[2022-03-16 11:26] LABS: Glucose,Whole Blood 293 mg/dL (70-110)
[2022-03-16] MEDS: LACTATED RINGERS 1,000 ML IV SCH (11:36)
--- NOTE | 2022-03-16 12:07 | P.PN ---
Progress Note - Text Progress Note Date: 03/16/22 Chief Complaint: Low back pain This is a 62-year-old patient, follows with Dr. Mendez. Chronic stable medical conditions include ADHD, herniated disc lower back, smoker. Patient's son at the bedside. Patient yesterday took his medication was going to the bathroom and the son noticed that he was feeling looking weak. He became less responsive. Never passed out. Shaky. No fever or chills reported. EMS was called out. Patient is found to be in atrial fibrillation with rapid ventricular rate. In the ER started on IV heparin, given adenosine, later put on IV Cardizem. Also found to be in DKA. Put on insulin drip. Potassium was very low NG tube had to be pacemaker placement. Tired. Most of the history of pain medicine at the bedside. Patient rather tired and lethargic. Admitted with new onset of atrial fibrillation uncontrolled, diabetic ketoacidosis, acute metabolic encephalopathy, severe hypokalemia. Started on Cardizem drip, IV heparin, insulin drip. NG tube was placed for potassium replacement. March 03: ICU: Patient went back into sinus rhythm. Did have 3-4 minutes burst of A. fib with rapid ventricular rate and rhythm back in sinus rhythm. IV heparin is being changed over to subcu Lovenox 70 mg every 12. Insulin drip is discontinued. Put on Levemir 10 units. NG tube in place. Potassium being replaced. Still patient is rather lethargic. We'll get a computed tomography scan of the brain. And EEG. March 04: ICU: Remains in sinus rhythm. Has been off Cardizem drip. Slightly more awake but still lethargic. Attempted to answer questions. Potassium down to 2.7. Potassium being replaced. At magnesium. By mouth amiodarone. On IV ceftriaxone for possible UTI. Sinus rhythm. Stop Catapres increase Lopressor to 100 mg twice a day. Check ammonia level. Phosphorus being replaced. Consult neurology. CT brain negative for stroke. EEG results pending. March 05: ICU. Laying in bed. Weak. EEG showed encephalopathy. Weakness in all the limbs. Just ordered able to lift his arms. Parrott to be from electrolyte abnormalities. Able to answer questions slowly. Did tolerate some ice chips. Nurse will try to feed the patient. Lethargic but more awake. PTOT consulted. Unstageable bluish decolorization of the sacrum and heels. NG tube discontinued. IV fluids. 03/06/2020: Patient remains in the ICU improving slowly and gradually. Still had fever yesterday of 100.7, no more fever today. Other vitals are stable. Patient remains on ceftriaxone and he is been treated for UTI with Enterobacter. He still has fever as of yesterday therefore we will check renal ultrasound. Corcalcitonin 1.03, His altered mentation most likely is secondary to metabolic/toxic encephalopathy and UTI, neurologist on the case and he ordered MRI of the thoracolumbar spine to rule out spinal stenosis, results showing multilevel lumbar spinal stenosis but is mild and there is no spinal stenosis of the thoracic spine. Cardiology the case for new-onset A. fib, currently on Lovenox and amiodarone and rate controlled. Distal on IV fluids under lactate 125 Ulcers on Protonix 40 mg oral twice a day and Lovenox 70 mg twice daily. Glucose controlled on Levemir 14 units. His hemoglobin A1c is 12.9% and his DKA on admission resolved 03/07/2022 Patient still feels generally weak and lethargic. However he has good appetite. He denies chest pain or abdominal pain. No dyspnea. He looks comfortable in bed. He had 1 small bowel movement, no diarrhea. Zee catheter in place with yellow urine. Patient procalcitonin significantly improved down to 0.15, however his culture showed Enterobacter resistant to ceftriaxone. Patient currently on oral Levaquin. We going to consult infectious disease team. WBC is 11.3. Sodium 129. Patient fever on admission has subsided since then. Neurologist on the case and recommended EMG and nerve conduction study as an outpatient. Patient currently on Lovenox 70 mg twice a day, Levemir insulin 14 units and amiodarone. Also he is on oral Protonix twice daily and IV fluids under lactate at 125 Patient tolerates some diet, lower rate elected down to 75 mL/h renal ultrasound order, follow-up results 03/08/2022 Patient is seen and evaluated in follow-up this morning with multiple medical consultations including neurology, pulmonary, infectious disease, orthopedics following. Plan is for possible lumbar decompression sometime this week. Have consulted general surgery as per nursing report patient had a large dark tarry stool this morning. Hemoglobin is stable at 9.7. Patient's sodium is 129 with a potassium of 3.7 current creatinine is stable at 0.42. Blood sugars have been elevated and will continue current regimen. WBC remains elevated and patient is maintained on cefepime and will continue. Oral intake continues to be fair to poor and patient continues to report back pain. Patient has been febrile. Patient denies chest pain or shortness of breath. Patient is extremely lethargic with generalized edema noted throughout. Will consult nephrology for hyponatremia 03/09/2022 Patient is seen and evaluated in follow-up this morning. Multiple medical consultations following including orthopedics, general surgery, nephrology, pulmonary, and infectious disease. Plan was for tentative decompression surgery with orthopedics although sodium continues to be low and nursing reported dark tarry stools and is being evaluated with EGD/colonoscopy that is to be done on . Patient will start bowel prep tomorrow and will monitor closely of labs. Abdomen ultrasound was ordered as well and patient is continue with indwelling Zee catheter. Patient currently maintained on antibiotics and will continue. Patient is maintained on clear liquids and tolerating appears more awake and alert than yesterday. Patient continues to be weak and denies chest pain or shortness of breath. Patient labs currently pending and nephrology is following for hyponatremia and was started on Lasix. 03/10/2022: I resumed care of the patient today Tolerating clear liquids. Tired. Pending surgery-Dr. Newton . Back pain controlled. Patient's had black starry stools. For colonoscopy per Dr. Pabon. 03/11/2022: Patient had soft brown stool today. Some abdominal discomfort. Pending colonoscopy today. Received bowel preparation. Patient received 1 dose of Samsca yesterday. Also IV Ferrlecit. 03/12/2022. Colonoscopic could not be done yesterday because of poor bowel preparation. Dark stool was encountered during start of colonoscopy. Patient back on clear liquids. Now rescheduled for Tuesday. 03/13/2022: Patient had bowel preparation done tomorrow for colonoscopy Tuesday. Tolerating liquid diet. 03/14/2022: On liquid diet. Getting bowel preparation for tomorrow. Otherwise stable. Discussed with patient. 03/15/2022: Complaining of mid back pain. Received bowel prep yesterday. Had 2- 3 bowel movements. Possible endoscopy today. Awaiting decision from Dr. Newton for lumbar surgery either this admission nor following some rehab 03/16/2022: wentdown for colonoscopy. Yesterday. Found to have large brown stool in the vault. Procedure canceled. Being rescheduled for . Active Medications Acetaminophen (Acetaminophen Tab 325 Mg Tab) 650 mg PO Q6HR PRN PRN Reason: Mild Pain or Fever > 100.5 Last Admin: 03/12/22 23:11 Dose: 650 mg Hydrocodone Bitart/Acetaminophen (Hydrocodone/Apap 7.5-325mg 1 Each Tab) 1 each PO Q6HR PRN PRN Reason: Pain Last Admin: 03/16/22 07:39 Dose: 1 each Al Hydroxide/Mg Hydroxide (Mag Hydrox/Al Hydrox/Simeth 30 Ml Cup) 15 ml PO Q6HR PRN PRN Reason: Indigestion Amiodarone HCl (Amiodarone 200 Mg Tab) 200 mg PO DAILY [facility] Last Admin: 03/16/22 09:47 Dose: 200 mg Dextrose/Water (Dextrose 50% Syringe 50 Ml) 25 ml IVP PER PROTOCOL PRN; Protocol PRN Reason: Hypoglycemia Last Admin: 03/11/22 16:43 Dose: 25 ml Dextrose/Water (Dextrose 50% Syringe 50 Ml) 50 ml IVP PER PROTOCOL PRN; Protocol PRN Reason: Hypoglycemia Folic Acid (Folic Acid 1 Mg Tab) 1 mg PO DAILY [facility] Last Admin: 03/16/22 09:47 Dose: 1 mg Furosemide (Furosemide 10 Mg/Ml 4 Ml Vial) 40 mg IV DAILY [facility] Last Admin: 03/16/22 09:52 Dose: 40 mg Lactated Ringer's (Lactated Ringers) 1,000 mls @ 20 mls/hr IV .Q24H [facility] Last Admin: 03/16/22 11:36 Dose: Not Given Insulin Aspart (Insulin Aspart (Novolog) 100 Unit/Ml Vial) 0 unit SQ ACHS [facility]; Protocol Last Admin: 03/16/22 11:40 Dose: 6 unit Insulin Detemir (Insulin Detemir (Levemir) 100 Unit/Ml Syr) 14 unit SQ DAILY@0700 [facility] Last Admin: 03/16/22 07:43 Dose: 14 unit Metoprolol Tartrate (Metoprolol Tartrate 50 Mg Tab) 100 mg PO BID [facility] Last Admin: 03/16/22 09:46 Dose: 100 mg Miscellaneous Information (Potassium Replacement Protocol 1 Each Misc) 1 each MISCELLANE DAILY PRN; Protocol PRN Reason: Per Protocol Naloxone HCl (Naloxone 0.4 Mg/Ml 1 Ml Vial) 0.2 mg IV Q2M PRN PRN Reason: Opioid Reversal Nicotine (Nicotine 21mg/24hr Patch) 1 patch TRANSDERM DAILY [facility] Last Admin: 03/16/22 09:52 Dose: 1 patch Ondansetron HCl (Ondansetron 4 Mg/2 Ml Vial) 4 mg IVP Q8HR PRN PRN Reason: Nausea And Vomiting Pantoprazole Sodium (Pantoprazole 40 Mg/10 Ml Vial) 40 mg IVP BID [facility] Last Admin: 03/16/22 09:49 Dose: 40 mg Tramadol HCl (Tramadol 50 Mg Tab) 50 mg PO QID PRN PRN Reason: Pain Last Admin: 03/13/22 01:15 Dose: 50 mg Past medical history to include: Diabetes, possible ADHD, chronic low back pain, herniated disc, Social history: Son lives with the patient. 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 Smokes about a pack a day. Alcohol occasionally. Physical examination: VITAL SIGNS: 98.9, 18, 16, 105/63, 98% room air GENERAL: Awake, laying in bed EYES: Pupils equal. Conjunctiva normal. HEENT: External appearance of nose and ears normal, oral cavity mucous membranes moist NECK: JVD not raised; masses not palpable. HEART: Heart sounds normal; no edema. LUNGS: Respiratory rate normal; decreased breath sounds. ABDOMEN: Soft, nontender, liver spleen not palpable, no masses palpable. PSYCH: Answering questions appropriately INVESTIGATIONS, reviewed in the clinical context: March 16: Sodium 126 creatinine 0.44 March 15: WBC 10 hemoglobin 8.6 sodium 129 potassium 4.2 creatinine 0.55 March 10: WBC 11.7 hemoglobin 9.1 platelets 519 sodium 127 potassium 3.9 BUN 6 creatinine 0.51 serum osmolality 271 HbA1c: 12.9 Computed tomography scan brain: No acute processes reported March 03: Sodium 136 potassium 3 BUN 22 creatinine 0.50 albumin 2.2 WBC 36.7 hemoglobin 14.7 platelets 470 potassium 2.7 sodium 128 bicarb 9 BUN 25 crit 0.89 blood glucose 564 UA positive for ketone 4+, leukoesterase negative for nitrite Urine drug screen: Negative Serum acetone positive EKG tracing personally reviewed by me-heart rate 171, ST segment depression Chest x-ray film personally reviewed by me-prominent pulmonary artery. Elevated right diaphragm. 2-D echocardiogram: EF 55-60%. Assessment and plan: -Paroxysmal atrial fibrillation with a rapid ventricular rate, back in sinus rhythm Lopressor 100 mg twice a day. Oral amiodarone -IV heparin -discontinued Follow PTT -Diabetic ketoacidosis: Resolved -Black starry stools/acute GI bleed.. EGD showed mild gastritis and esophagitis. Coloscopy rescheduled for because of poor bowel preparation per Dr. Pabon -Diabetes mellitus type 2, uncontrolled with hyperglycemia Levemir 14 units subcu daily. Follow Accu-Cheks -Acute metabolic encephalopathy, multifactorial, better Computed tomography scan of brain unremarkable.. EEG-encephalopathy. No seizure.. Follow with Neurology -Severe hypokalemia: Better -Hypophosphatemia: Better Replace phosphorus -COPD in a current smoker Bronchodilators as needed -Chronic nicotine dependence, cigarette smoker Nicotine patch -Hypoosmolar, hyponatremia: Worsening Hold of free fluid intake. Received IV Samsca. -L2 S1 laminectomy and decompression, with lower extremity weakness for central spinal cord stenosis. Surgery Per Dr. Newton Fluid being adjusted in view of low-sodium. Bowel preparation. Being rescheduled for coloscopy on . Possibly lumbar surgery following that. Patient did have brown stool yesterday at attempted colonoscopy.
[2022-03-16] MEDS ORDERED: LACTULOSE 20 GM/30 ML CUP PO ONE (12:11)
--- NOTE | 2022-03-16 12:50 | P.PN ---
Subjective Patient is seen for follow-up for hyponatremia., Hypervolemic and currently being diuresed. Serum sodium had improved to about 134 and was 129 yesterday. No complaints today Patient needs repeat colonoscopy and will have increased intake of fluid for prep. Objective - Vital Signs Vital signs: Vital Signs Temp 98.9 F 03/16/22 12:12 Pulse 84 03/16/22 12:13 Resp 16 03/16/22 12:13 BP 122/68 03/16/22 12:12 Pulse Ox 98 03/16/22 02:29 FiO2 21 03/04/22 07:22 Intake & Output 03/15/22 03/16/22 03/16/22 18:59 06:59 18:59 Intake Total 50 10 Output Total 1400 1950 Balance -1350 -1940 Weight 76.3 kg Intake: IV 50 10 Invasive Line 6 10 Output: Urine 1400 1950 Other: Voiding Method Indwelling Catheter Indwelling Catheter # Bowel Movements 1 1 - Exam Awake, comfortable, not in any acute distress Examination of the heart S1 and S2 Examination lungs bilateral breath sounds are heard Abdomen is soft nontender Examination of lower extremity shows edema 1+ bilaterally [employer] exam grossly intact - Labs CBC & Chem 7: 03/15/22 08:06 03/16/22 10:33 Labs: Abnormal Lab Results - Last 24 Hours (Table) 03/15/22 03/15/22 03/16/22 Range/Units 16:16 20:05 07:20 Sodium (137-145) mmol/L Chloride (98-107) mmol/L Creatinine (0.66-1.25) mg/dL Glucose (74-99) mg/dL POC Glucose (mg/dL) 137 H 271 H 160 H (70-110) mg/dL Calcium (8.4-10.2) mg/dL 03/16/22 03/16/22 Range/Units 10:33 11:20 Sodium 126 L (137-145) mmol/L Chloride 93 L (98-107) mmol/L Creatinine 0.44 L (0.66-1.25) mg/dL Glucose 211 H (74-99) mg/dL POC Glucose (mg/dL) 293 H (70-110) mg/dL Calcium 7.3 L (8.4-10.2) mg/dL Microbiology - Last 24 Hours (Table) 10/13/22 08:25 Blood Culture - Preliminary Blood No Growth after 120 hours Assessment and Plan Assessment: 1. Hyponatremia. Hypervolemic, maintained on diuretics. Underlying SIADH also a possibility. Status post [facility] 2. Right adrenal mass suggestive of benign adrenal adenoma on CAT scan done 03/09/2022. Doubt hyperaldosteronism state as patient has no history of hypertension and blood pressure is fairly well controlled without any antihypertensive meds. Cortisol level normal. 3. Metabolic alkalosis secondary to bicarb supplementation. Bicarb supplementation stopped 03/09/2022. 4. Central spinal cord stenosis. Surgery pending. 5. Anemia. Concern for GI bleed. EGD showed mild gastritis without any acute bleed. Colonoscopy tomorrow. Hemoglobin 9.1 today. Iron deficiency noted. 6. Diabetes mellitus. 7. Fluid overload improved, 8. UTI with urine culture growing enterococcus cloacae and Betty Plan: [facility] today. Patient did not get a dose yesterday Repeat sodium this evening
--- NOTE | 2022-03-16 12:59 | P.PN ---
Subjective Progress Note Date: 03/14/22 Principal diagnosis: Enterobacter catheter associated UTI Patient is a 62 year old male with initial presentation hospital 10 07/30/2003 palpitation and shortness of breath patient did have a low-grade fever and a positive urine culture with Enterobacter. Patient has developed significant constipation and possible GI bleed status post disimpaction on 03/11/2022 On today's evaluation that is 03/14/2022, the patient remains to be afebrile , the patient is breathing comfortably on room air, the patient denies chest pain shortness of breath or cough no abdominal pain no diarrhea, Objective - Vital Signs Vital signs: Vital Signs Temp 98.8 F 03/14/22 07:08 Pulse 68 03/14/22 07:08 Resp 16 03/14/22 07:08 BP 100/62 03/14/22 07:09 Pulse Ox 97 03/14/22 07:08 FiO2 21 03/04/22 07:22 Intake & Output 03/13/22 03/14/22 03/14/22 18:59 06:59 18:59 Intake Total 2160 Output Total 2300 1100 Balance -140 -1100 Intake: Oral 2160 Output: Urine 2300 1100 Other: Voiding Method Indwelling Catheter Indwelling Catheter - Exam GENERAL DESCRIPTION: A middle-aged male lying in bed in no distress RESPIRATORY SYSTEM: Unlabored breathing , decreased breath sounds at bases HEART: S1 S2 regular rate and rhythm , ABDOMEN: Soft , no tenderness EXTREMITIES: No edema feet - Labs CBC & Chem 7: 03/15/22 08:06 03/16/22 10:33 Labs: Abnormal Lab Results - Last 24 Hours (Table) 03/13/22 03/13/22 03/13/22 Range/Units 06:02 11:56 16:34 Sodium 134 L (135-145) mmol/L Carbon Dioxide 27.8 H (20.0-27.5) mmol/L Anion Gap 5.90 L (10.00-18.00) mmol/L Creatinine 0.5 L (0.6-1.5) mg/dL BUN/Creatinine Ratio 20.83 H (12.00-20.00) Ratio Glucose 150 H (70-110) mg/dL POC Glucose (mg/dL) 350 H 196 H (70-110) mg/dL Calcium 7.5 L (8.7-10.3) mg/dL 03/13/22 03/14/22 Range/Units 19:50 07:03 Sodium (135-145) mmol/L Carbon Dioxide (20.0-27.5) mmol/L Anion Gap (10.00-18.00) mmol/L Creatinine (0.6-1.5) mg/dL BUN/Creatinine Ratio (12.00-20.00) Ratio Glucose (70-110) mg/dL POC Glucose (mg/dL) 195 H 172 H (70-110) mg/dL Calcium (8.7-10.3) mg/dL Microbiology - Last 24 Hours (Table) 03/11/22 08:25 Blood Culture - Preliminary Blood No Growth after 48 hours Assessment and Plan (1) Catheter-associated urinary tract infection Current Visit: Yes Status: Acute Code(s): T83.511A - I/I REACT D/T INDWELLING URETHRAL CATHETER, INIT; N39.0 - URINARY TRACT INFECTION, SITE NOT SPECIFIED SNOMED Code(s): 446074260 Plan: 1patient with a low-grade fever positive UA and urinary symptoms retention requiring Zee catheter placement concerning for a symptomatic UTI urine has been finalized with Enterobacter and this patient is currently on amiodarone using quinolones can lead to QT prolongation patient received adequate antibiotic therapy will monitor the patient closely off antibiotics 2 the patient repeat culture with vashti and diflucan cannot be added because of amiodarone , the patient still have a positive UA however the patient is afebrile white count is normal we will monitor the patient closely without any antifungal treatment Time with Patient: Less than 30
--- NOTE | 2022-03-16 13:02 | P.PN ---
Subjective Progress Note Date: 03/15/22 Principal diagnosis: Enterobacter catheter associated UTI Patient is a 62 year old male with initial presentation hospital 10 07/30/2003 palpitation and shortness of breath patient did have a low-grade fever and a positive urine culture with Enterobacter. Patient has developed significant constipation and possible GI bleed status post disimpaction on 03/11/2022, patient has developed unstageable pressure ulcer to the sacral area apparently started last week as a deep tissue injury on 03/11/2022 per the nursing staff On today's evaluation that is 03/15/2022, the patient continues to be afebrile , the patient is breathing comfortably on room air, the patient denies chest pain shortness of breath or cough no abdominal pain no diarrhea, Patient has been complaining of some dull aching pain into the sacral wound area 3-4 out of 10 and no radiation Objective - Vital Signs Vital signs: Vital Signs Temp 98.2 F 03/15/22 14:00 Pulse 71 03/15/22 14:00 Resp 16 03/15/22 14:00 BP 105/66 03/15/22 14:00 Pulse Ox 100 03/15/22 14:00 FiO2 21 03/04/22 07:22 Intake & Output 03/14/22 03/15/22 03/15/22 18:59 06:59 18:59 Intake Total 240 50 Output Total 1400 2620 1100 Balance -1160 -2620 -1050 Weight 76.3 kg Intake: IV 240 50 Lactated Ringers 1,000 ml 240 @ 20 mls/hr IV .Q24H [facility] Rx#:[id number] Output: Urine 1400 2620 1100 Uretheral (Zee) 1400 1010 Other: Voiding Method Indwelling Catheter Indwelling Catheter # Bowel Movements 1 1 - Exam GENERAL DESCRIPTION: A middle-aged male lying in bed in no distress RESPIRATORY SYSTEM: Unlabored breathing , decreased breath sounds at bases HEART: S1 S2 regular rate and rhythm , ABDOMEN: Soft , no tenderness Patient with unstageable sacral pressure ulcer with necrotic tissue no surrounding redness or drainage EXTREMITIES: No edema feet - Labs CBC & Chem 7: 03/15/22 08:06 03/16/22 10:33 Labs: Abnormal Lab Results - Last 24 Hours (Table) 03/14/22 03/14/22 03/15/22 Range/Units 17:08 20:24 07:14 RBC (4.30-5.90) m/uL Hgb (13.0-17.5) gm/dL Hct (39.0-53.0) % Neutrophils # (1.3-7.7) k/uL Sodium (137-145) mmol/L Chloride (98-107) mmol/L Carbon Dioxide (22-30) mmol/L Creatinine (0.66-1.25) mg/dL Glucose (74-99) mg/dL POC Glucose (mg/dL) 138 H 181 H 115 H (70-110) mg/dL Calcium (8.4-10.2) mg/dL 03/15/22 03/15/22 03/15/22 Range/Units 08:06 08:06 11:54 RBC 3.01 L (4.30-5.90) m/uL Hgb 8.6 L (13.0-17.5) gm/dL Hct 25.8 L (39.0-53.0) % Neutrophils # 8.1 H (1.3-7.7) k/uL Sodium 129 L (137-145) mmol/L Chloride 94 L (98-107) mmol/L Carbon Dioxide 31 H (22-30) mmol/L Creatinine 0.55 L (0.66-1.25) mg/dL Glucose 109 H (74-99) mg/dL POC Glucose (mg/dL) 119 H (70-110) mg/dL Calcium 7.4 L (8.4-10.2) mg/dL 03/15/22 Range/Units 16:16 RBC (4.30-5.90) m/uL Hgb (13.0-17.5) gm/dL Hct (39.0-53.0) % Neutrophils # (1.3-7.7) k/uL Sodium (137-145) mmol/L Chloride (98-107) mmol/L Carbon Dioxide (22-30) mmol/L Creatinine (0.66-1.25) mg/dL Glucose (74-99) mg/dL POC Glucose (mg/dL) 137 H (70-110) mg/dL Calcium (8.4-10.2) mg/dL Microbiology - Last 24 Hours (Table) 03/11/22 08:25 Blood Culture - Preliminary Blood No Growth after 96 hours Assessment and Plan (1) Catheter-associated urinary tract infection Current Visit: Yes Status: Acute Code(s): T83.511A - I/I REACT D/T INDWELLING URETHRAL CATHETER, INIT; N39.0 - URINARY TRACT INFECTION, SITE NOT SPECIFIED SNOMED Code(s): 203007577 (2) Unstageable pressure ulcer of sacral region Current Visit: Yes Status: Acute Code(s): L89.150 - PRESSURE ULCER OF SACRAL REGION, UNSTAGEABLE SNOMED Code(s): 18238352684699897 Plan: 1patient with a low-grade fever positive UA and urinary symptoms retention requiring Zee catheter placement concerning for a symptomatic UTI urine has been finalized with Enterobacter and this patient is currently on amiodarone using quinolones can lead to QT prolongation patient received adequate antibiotic therapy will monitor the patient closely off antibiotics 2 the patient repeat culture with vashti and diflucan cannot be added because of amiodarone , the patient still have a positive UA however the patient is afebrile white count is normal we will monitor the patient closely without any antifungal treatment 3-Pt with unstageable sacral pressure ulcer will apply medihoney followed by moist dressing daily, keep the area off the pressure will benefit from surgical debridement RN to check with the surgical team Time with Patient: Less than 30
--- NOTE | 2022-03-16 13:03 | P.PN ---
Subjective Progress Note Date: 03/16/22 Principal diagnosis: Enterobacter catheter associated UTI Patient is a 62 year old male with initial presentation hospital 10 07/30/2003 palpitation and shortness of breath patient did have a low-grade fever and a positive urine culture with Enterobacter. Patient has developed significant constipation and possible GI bleed status post disimpaction on 03/11/2022, patient has developed unstageable pressure ulcer to the sacral area apparently started last week as a deep tissue injury on 03/11/2022 per the nursing staff, the patient colonoscopy was canceled yesterday because of poor bowel prep On today's evaluation that is 03/16/2022, the patient denies any fever or any chills , the patient is breathing comfortably on room air, the patient denies chest pain shortness of breath or cough no abdominal pain no diarrhea, , the patient denies any worsening pain to the sacral wound area Objective - Vital Signs Vital signs: Vital Signs Temp 98.9 F 03/16/22 12:12 Pulse 84 03/16/22 12:13 Resp 16 03/16/22 12:13 BP 122/68 03/16/22 12:12 Pulse Ox 98 03/16/22 02:29 FiO2 21 03/04/22 07:22 Intake & Output 03/15/22 03/16/22 03/16/22 18:59 06:59 18:59 Intake Total 50 10 Output Total 1400 1950 Balance -1350 -1940 Weight 76.3 kg Intake: IV 50 10 Invasive Line 6 10 Output: Urine 1400 1950 Other: Voiding Method Indwelling Catheter Indwelling Catheter # Bowel Movements 1 1 - Exam GENERAL DESCRIPTION: A middle-aged male lying in bed in no distress RESPIRATORY SYSTEM: Unlabored breathing , decreased breath sounds at bases HEART: S1 S2 regular rate and rhythm , ABDOMEN: Soft , no tenderness Patient with unstageable sacral pressure ulcer with necrotic tissue no surrounding redness or drainage EXTREMITIES: No edema feet - Labs CBC & Chem 7: 03/15/22 08:06 03/16/22 10:33 Labs: Abnormal Lab Results - Last 24 Hours (Table) 03/15/22 03/15/22 03/16/22 Range/Units 16:16 20:05 07:20 Sodium (137-145) mmol/L Chloride (98-107) mmol/L Creatinine (0.66-1.25) mg/dL Glucose (74-99) mg/dL POC Glucose (mg/dL) 137 H 271 H 160 H (70-110) mg/dL Calcium (8.4-10.2) mg/dL 03/16/22 03/16/22 Range/Units 10:33 11:20 Sodium 126 L (137-145) mmol/L Chloride 93 L (98-107) mmol/L Creatinine 0.44 L (0.66-1.25) mg/dL Glucose 211 H (74-99) mg/dL POC Glucose (mg/dL) 293 H (70-110) mg/dL Calcium 7.3 L (8.4-10.2) mg/dL Microbiology - Last 24 Hours (Table) 03/11/22 08:25 Blood Culture - Preliminary Blood No Growth after 120 hours Assessment and Plan (1) Catheter-associated urinary tract infection Current Visit: Yes Status: Acute Code(s): T83.511A - I/I REACT D/T INDWELLING URETHRAL CATHETER, INIT; N39.0 - URINARY TRACT INFECTION, SITE NOT SPECIFIED SNOMED Code(s): 417934843 Plan: 1patient with a low-grade fever positive UA and urinary symptoms retention requiring Zee catheter placement concerning for a symptomatic UTI urine has been finalized with Enterobacter and this patient is currently on amiodarone using quinolones can lead to QT prolongation patient received adequate antibiotic therapy will monitor the patient closely off antibiotics, so far doing well 2 the patient repeat culture with vashti and diflucan cannot be added because of amiodarone , the patient still have a positive UA however the patient is afebrile white count is normal we will monitor the patient closely without any antifungal treatment 3-Pt with unstageable sacral pressure ulcer, will benefit from surgical debridement for now continue with Positive point has been mentioned in the HPI rest of the systems are negative, keep the area off the pressure Time with Patient: Less than 30
--- NOTE | 2022-03-16 14:42 | P.PN ---
Subjective Progress Note Date: 03/16/22 CHIEF COMPLAINT: Anemia and black stool HISTORY OF PRESENT ILLNESS: Patient had second attempt at colonoscopy yesterday but there was still large amount of melanotic stool present and colonoscopy could not be performed. Patient had EGD completed showing mild antral gastritis, mild esophagitis and no evidence of any upper GI bleed. Afebrile. Sodium 126 potassium is 4.2 creatinine 0.44 Patient seen and examined with Dr. al PHYSICAL EXAM: VITAL SIGNS: Reviewed. GENERAL: Well-developed in no acute distress. HEENT: No sclera icterus. Extraocular movements grossly intact. Moist buccal mucosa. Head is atraumatic, normocephalic. ABDOMEN: Soft. Nondistended. NEUROLOGIC: Alert and oriented. Cranial nerves II through XII grossly intact. ASSESSMENT: 1. Anemia with black tarry stool 2. Fecal impaction status post disimpaction with evidence of melanotic stools 3. Incidental finding of hydropic gallbladder with cholelithiasis PLAN: -Patient will have repeat colonoscopy on , 03/18/2022 -Continue clear liquid diet. Did discuss with nephrology about fluid restriction. At this time it is okay to increase patient's fluid intake. They have added sodium tablets to help with the hyponatremia. -Discussed with nursing staff and patient to increase his water intake -Patient will be given soapsuds enemas and lactulose to help further clean him out for the colonoscopy -Plan to start GoLYTELY prep tomorrow -Continue to monitor hemoglobin -Continue to monitor for any signs or symptoms of bleeding -Hyponatremia management per nephrology -Orthopedic service is holding off on the laminectomy in order for patient to proceed with colonoscopy Physician [employer] Supervisor note has been reviewed by physician. Signing provider agrees with the documented findings, assessment, and plan of care. Objective - Vital Signs Vital signs: Vital Signs Temp 98.9 F 03/16/22 12:12 Pulse 84 03/16/22 12:13 Resp 16 03/16/22 12:13 BP 122/68 03/16/22 12:12 Pulse Ox 98 03/16/22 02:29 FiO2 21 03/04/22 07:22 Intake & Output 03/15/22 03/16/22 03/16/22 18:59 06:59 18:59 Intake Total 50 10 Output Total 1400 1950 2099 Balance -135 -2099 Weight 76.3 kg Intake: IV 50 10 Invasive Line 6 10 Output: Urine 1399 1949 2099 Other: Voiding Method Indwelling Catheter Indwelling Catheter # Bowel Movements 1 1 - Labs CBC & Chem 7: 03/15/22 08:06 03/16/22 10:33 Labs: Abnormal Lab Results - Last 24 Hours (Table) 03/15/22 03/15/22 03/16/22 Range/Units 16:16 20:05 07:20 Sodium (137-145) mmol/L Chloride (98-107) mmol/L Creatinine (0.66-1.25) mg/dL Glucose (74-99) mg/dL POC Glucose (mg/dL) 137 H 271 H 160 H (70-110) mg/dL Calcium (8.4-10.2) mg/dL 03/16/22 03/16/22 Range/Units 10:33 11:20 Sodium 126 L (137-145) mmol/L Chloride 93 L (98-107) mmol/L Creatinine 0.44 L (0.66-1.25) mg/dL Glucose 211 H (74-99) mg/dL POC Glucose (mg/dL) 293 H (70-110) mg/dL Calcium 7.3 L (8.4-10.2) mg/dL Microbiology - Last 24 Hours (Table) 03/11/22 08:25 Blood Culture - Preliminary Blood No Growth after 120 hours
[2022-03-16 16:26] LABS: Glucose,Whole Blood 141 mg/dL (70-110)
[2022-03-16 19:37] LABS: Metanephrine, Free <25 pg/mL (< OR = 57); Normetanephrine, Free 41 pg/mL (< OR = 148); Total, Free (MN + NMN) 41 pg/mL (< OR = 205)
[2022-03-16] MEDS: ACETAMINOPHEN TAB 325 MG TAB PO PRN (21:15)
[2022-03-16 21:19] LABS: Glucose,Whole Blood 304 mg/dL (70-110)
[2022-03-17] MEDS: HYDROcodone/APAP 7.5-325MG 1 EACH TAB PO PRN ×3 (01:23→20:06)
[2022-03-17] MEDS: LACTATED RINGERS 1,000 ML IV SCH ×2 (06:32→17:15)
[2022-03-17 07:07] LABS: Glucose,Whole Blood 166 mg/dL (70-110)
[2022-03-17] MEDS ORDERED: PEG 3350 (420 GM/BTL) + LYTES 4,000 ML BOTTLE PO ONE (08:00)
[2022-03-17 08:25] LABS: HCT 28.2 % (39.0-53.0); HGB 8.9 gm/dL (13.0-17.5); Hypochromasia Marked; MCH 28.1 pg (25.0-35.0); MCHC 31.8 g/dL (31.0-37.0); MCV 88.4 fL (80.0-100.0); Platelet Count 382 k/uL (150-450); RBC 3.18 m/uL (4.30-5.90); RDW 14.7 % (11.5-15.5); WBC 8.4 k/uL (3.8-10.6)
[2022-03-17] MEDS: FUROSEMIDE 10 MG/ML 4 ML VIAL IV SCH (08:33)
[2022-03-17] MEDS: METOPROLOL TARTRATE 50 MG TAB PO SCH ×2 (08:34→20:03)
[2022-03-17] MEDS: AMIODARONE 200 MG TAB PO SCH (08:34)
[2022-03-17] MEDS: FOLIC ACID 1 MG TAB PO SCH (08:34)
[2022-03-17] MEDS: INSULIN DETEMIR (LEVEMIR) 100 UNIT/ML SYR SQ SCH (08:34)
[2022-03-17] MEDS: INSULIN ASPART (NovoLOG) 100 UNIT/ML VIAL SQ SCH ×4 (08:35→20:03)
[2022-03-17] MEDS: NICOTINE 21MG/24HR PATCH TRANSDERM SCH (08:36)
[2022-03-17] MEDS: PANTOPRAZOLE 40 MG/10 ML VIAL IVP SCH ×2 (08:36→20:03)
[2022-03-17 08:40] LABS: African American GFR (CKD) >90 (>60 ml/min/1.73 sqM); Anion Gap 7 mmol/L; Blood Urea Nitrogen 3 mg/dL (9-20); Calcium 7.7 mg/dL (8.4-10.2); Carbon Dioxide 31 mmol/L (22-30); Chloride 97 mmol/L (98-107); Glucose 176 mg/dL (74-99); Non-African American GFR(CKD) >90 (>60 ml/min/1.73 sqM); Potassium 4.6 mmol/L (3.5-5.1); Sodium 135 mmol/L (137-145)
--- NOTE | 2022-03-17 09:07 | P.PN ---
Subjective Progress Note Date: 03/17/22 Principal diagnosis: Bilateral lower extremity weakness Patient seen and examined at bedside. Patient is resting semi-recumbent in hospital bed with PRAFO boots present on bilateral feet. Patient was able to move his left lower extremity up in the bed and wiggle his toes, unable to move RLE. Patient is currently on clear liquid diet and NPO at VT for attempt for colonoscopy on 03/18/22. Patient states that his pain is managed on current regimen. Encouraged use of incentive spirometer. Araujo Catheter present and patent. Patient currently denies any fever/chills, shortness of breath, or chest pain. Objective - Vital Signs Vital signs: Vital Signs Temp 98.3 F 03/17/22 08:00 Pulse 67 03/17/22 08:00 Resp 16 03/17/22 08:00 BP 115/75 03/17/22 08:00 Pulse Ox 100 03/17/22 08:00 FiO2 21 03/04/22 07:22 Intake & Output 03/16/22 03/17/22 03/17/22 18:59 06:59 18:59 Output Total 3000 3900 Balance -3000 -3900 Output: Urine 3000 3900 Other: Voiding Method Indwelling Catheter Indwelling Catheter # Voids 1 # Bowel Movements 2 1 - Exam Physical Examination General: The patient is awake and alert, in no acute distress Skin: Skin is warm and dry with no obvious rashes or lesions. Hairy patches absent, no dorsal skin dimples, no cafe au lait spots, and no surgical incisions. Prafo boots present bilaterally. Eye: Pupils are equal, round and reactive to light, extra-ocular movements are intact; there is normal conjunctiva bilaterally. Neck: The neck is supple, there is no tenderness and ROM intact. Cardiovascular: There is a regular rate and rhythm. No murmur, rub or gallop is appreciated. Respiratory: Lungs are clear to auscultation, respirations are non-labored, breath sounds are equal. Gastrointestinal: Soft, non-distended, non-tender abdomen . Back: There is slight tenderness to palpation in the paralumbar region. There is no obvious deformity . Musculoskeletal: ROM limited secondary to pain. Muscle strength is 5/5 in all major muscle groups in BUE, 3/5 in LLE, and absent in RLE Neurological: CN 2-12 intact. There are no obvious motor or sensory deficits. Movement and coordination equal and intact. Sensory exam to light touch intact C5-T1 and intact from L2-S1. Reflexes 2/4 in bilateral upper and lower extremi ties. Negative Hoffmans, babinski, and clonus signs. Psychiatric: Cooperative, appropriate mood & affect, normal judgment. - Labs CBC & Chem 7: 03/17/22 08:05 03/17/22 08:05 Labs: Abnormal Lab Results - Last 24 Hours (Table) 03/16/22 03/16/22 03/16/22 Range/Units 10:33 11:20 16:21 RBC (4.30-5.90) m/uL Hgb (13.0-17.5) gm/dL Hct (39.0-53.0) % Sodium 126 L (137-145) mmol/L Chloride 93 L (98-107) mmol/L Creatinine 0.44 L (0.66-1.25) mg/dL Glucose 211 H (74-99) mg/dL POC Glucose (mg/dL) 293 H 141 H (70-110) mg/dL Calcium 7.3 L (8.4-10.2) mg/dL 03/16/22 03/17/22 03/17/22 Range/Units 21:18 07:05 08:05 RBC 3.18 L (4.30-5.90) m/uL Hgb 8.9 L (13.0-17.5) gm/dL Hct 28.2 L (39.0-53.0) % Sodium (137-145) mmol/L Chloride (98-107) mmol/L Creatinine (0.66-1.25) mg/dL Glucose (74-99) mg/dL POC Glucose (mg/dL) 304 H 166 H (70-110) mg/dL Calcium (8.4-10.2) mg/dL Microbiology - Last 24 Hours (Table) 03/11/22 08:25 Blood Culture - Preliminary Blood No Growth after 120 hours Assessment and Plan Assessment: Degenerative disc disease Central spinal cord stenosis at L2-L5 Bilateral lower extremity weakness Plan: Plan: Plan for surgical intervention for L2-S1 laminectomy with decompression and possible fusion pending. Appreciate medical, pulmonology, cardiology/vascular management Pain management - Tylenol; tramadol GI prophylaxis - Maalox; protonix - Maintain araujo catheter PT/OT - weightbearing as tolerated with walker, maintain PRAFO boots when in bed. *I reviewed and discussed this case with my attending Dr. Newton, whom has reviewed this chart and films and is in agreement with assessment and plan of care as outlined above. I have personally seen and examined the patient, performed the documentation and the assessment and plan as written. Number of minutes spent on the visit: 20m.
[2022-03-17] MEDS ORDERED: LIDOCAINE 1% (10MG/ML) FOR IV START INTRADERMA PRN (11:08)
[2022-03-17 11:49] LABS: Glucose,Whole Blood 304 mg/dL (70-110)
--- NOTE | 2022-03-17 12:18 | P.PN ---
Progress Note - Text Progress Note Date: 03/17/22 Chief Complaint: Low back pain This is a 62-year-old patient, follows with Dr. Mendez. Chronic stable medical conditions include ADHD, herniated disc lower back, smoker. Patient's son at the bedside. Patient yesterday took his medication was going to the bathroom and the son noticed that he was feeling looking weak. He became less responsive. Never passed out. Shaky. No fever or chills reported. EMS was called out. Patient is found to be in atrial fibrillation with rapid ventricular rate. In the ER started on IV heparin, given adenosine, later put on IV Cardizem. Also found to be in DKA. Put on insulin drip. Potassium was very low NG tube had to be pacemaker placement. Tired. Most of the history of pain medicine at the bedside. Patient rather tired and lethargic. Admitted with new onset of atrial fibrillation uncontrolled, diabetic ketoacidosis, acute metabolic encephalopathy, severe hypokalemia. Started on Cardizem drip, IV heparin, insulin drip. NG tube was placed for potassium replacement. March 03: ICU: Patient went back into sinus rhythm. Did have 3-4 minutes burst of A. fib with rapid ventricular rate and rhythm back in sinus rhythm. IV heparin is being changed over to subcu Lovenox 70 mg every 12. Insulin drip is discontinued. Put on Levemir 10 units. NG tube in place. Potassium being replaced. Still patient is rather lethargic. We'll get a computed tomography scan of the brain. And EEG. March 04: ICU: Remains in sinus rhythm. Has been off Cardizem drip. Slightly more awake but still lethargic. Attempted to answer questions. Potassium down to 2.7. Potassium being replaced. At magnesium. By mouth amiodarone. On IV ceftriaxone for possible UTI. Sinus rhythm. Stop Catapres increase Lopressor to 100 mg twice a day. Check ammonia level. Phosphorus being replaced. Consult neurology. CT brain negative for stroke. EEG results pending. March 05: ICU. Laying in bed. Weak. EEG showed encephalopathy. Weakness in all the limbs. Just ordered able to lift his arms. Etlan to be from electrolyte abnormalities. Able to answer questions slowly. Did tolerate some ice chips. Nurse will try to feed the patient. Lethargic but more awake. PTOT consulted. Unstageable bluish decolorization of the sacrum and heels. NG tube discontinued. IV fluids. 03/06/2020: Patient remains in the ICU improving slowly and gradually. Still had fever yesterday of 100.7, no more fever today. Other vitals are stable. Patient remains on ceftriaxone and he is been treated for UTI with Enterobacter. He still has fever as of yesterday therefore we will check renal ultrasound. Corcalcitonin 1.03, His altered mentation most likely is secondary to metabolic/toxic encephalopathy and UTI, neurologist on the case and he ordered MRI of the thoracolumbar spine to rule out spinal stenosis, results showing multilevel lumbar spinal stenosis but is mild and there is no spinal stenosis of the thoracic spine. Cardiology the case for new-onset A. fib, currently on Lovenox and amiodarone and rate controlled. Distal on IV fluids under lactate 125 Ulcers on Protonix 40 mg oral twice a day and Lovenox 70 mg twice daily. Glucose controlled on Levemir 14 units. His hemoglobin A1c is 12.9% and his DKA on admission resolved 03/07/2022 Patient still feels generally weak and lethargic. However he has good appetite. He denies chest pain or abdominal pain. No dyspnea. He looks comfortable in bed. He had 1 small bowel movement, no diarrhea. Zee catheter in place with yellow urine. Patient procalcitonin significantly improved down to 0.15, however his culture showed Enterobacter resistant to ceftriaxone. Patient currently on oral Levaquin. We going to consult infectious disease team. WBC is 11.3. Sodium 129. Patient fever on admission has subsided since then. Neurologist on the case and recommended EMG and nerve conduction study as an outpatient. Patient currently on Lovenox 70 mg twice a day, Levemir insulin 14 units and amiodarone. Also he is on oral Protonix twice daily and IV fluids under lactate at 125 Patient tolerates some diet, lower rate elected down to 75 mL/h renal ultrasound order, follow-up results 03/08/2022 Patient is seen and evaluated in follow-up this morning with multiple medical consultations including neurology, pulmonary, infectious disease, orthopedics following. Plan is for possible lumbar decompression sometime this week. Have consulted general surgery as per nursing report patient had a large dark tarry stool this morning. Hemoglobin is stable at 9.7. Patient's sodium is 129 with a potassium of 3.7 current creatinine is stable at 0.42. Blood sugars have been elevated and will continue current regimen. WBC remains elevated and patient is maintained on cefepime and will continue. Oral intake continues to be fair to poor and patient continues to report back pain. Patient has been febrile. Patient denies chest pain or shortness of breath. Patient is extremely lethargic with generalized edema noted throughout. Will consult nephrology for hyponatremia 03/09/2022 Patient is seen and evaluated in follow-up this morning. Multiple medical consultations following including orthopedics, general surgery, nephrology, pulmonary, and infectious disease. Plan was for tentative decompression surgery with orthopedics although sodium continues to be low and nursing reported dark tarry stools and is being evaluated with EGD/colonoscopy that is to be done on . Patient will start bowel prep tomorrow and will monitor closely of labs. Abdomen ultrasound was ordered as well and patient is continue with indwelling Zee catheter. Patient currently maintained on antibiotics and will continue. Patient is maintained on clear liquids and tolerating appears more awake and alert than yesterday. Patient continues to be weak and denies chest pain or shortness of breath. Patient labs currently pending and nephrology is following for hyponatremia and was started on Lasix. 03/10/2022: I resumed care of the patient today Tolerating clear liquids. Tired. Pending surgery-Dr. Newton . Back pain controlled. Patient's had black starry stools. For colonoscopy per Dr. Pabon. 03/11/2022: Patient had soft brown stool today. Some abdominal discomfort. Pending colonoscopy today. Received bowel preparation. Patient received 1 dose of Samsca yesterday. Also IV Ferrlecit. 03/12/2022. Colonoscopic could not be done yesterday because of poor bowel preparation. Dark stool was encountered during start of colonoscopy. Patient back on clear liquids. Now rescheduled for Tuesday. 03/13/2022: Patient had bowel preparation done tomorrow for colonoscopy Tuesday. Tolerating liquid diet. 03/14/2022: On liquid diet. Getting bowel preparation for tomorrow. Otherwise stable. Discussed with patient. 03/15/2022: Complaining of mid back pain. Received bowel prep yesterday. Had 2- 3 bowel movements. Possible endoscopy today. Awaiting decision from Dr. Newton for lumbar surgery either this admission nor following some rehab 03/16/2022: wentdown for colonoscopy. Yesterday. Found to have large brown stool in the vault. Procedure canceled. Being rescheduled for . 03/17/2022: Liquid diet. Scheduled for colonoscopic . Intermittent back pain. Bowel prep for surgery. Active Medications Acetaminophen (Acetaminophen Tab 325 Mg Tab) 650 mg PO Q6HR PRN PRN Reason: Mild Pain or Fever > 100.5 Last Admin: 03/16/22 21:15 Dose: 650 mg Hydrocodone Bitart/Acetaminophen (Hydrocodone/Apap 7.5-325mg 1 Each Tab) 1 each PO Q6HR PRN PRN Reason: Pain Last Admin: 03/17/22 01:23 Dose: 1 each Al Hydroxide/Mg Hydroxide (Mag Hydrox/Al Hydrox/Simeth 30 Ml Cup) 15 ml PO Q6HR PRN PRN Reason: Indigestion Amiodarone HCl (Amiodarone 200 Mg Tab) 200 mg PO DAILY [facility] Last Admin: 03/17/22 08:34 Dose: 200 mg Dextrose/Water (Dextrose 50% Syringe 50 Ml) 25 ml IVP PER PROTOCOL PRN; Protocol PRN Reason: Hypoglycemia Last Admin: 03/11/22 16:43 Dose: 25 ml Dextrose/Water (Dextrose 50% Syringe 50 Ml) 50 ml IVP PER PROTOCOL PRN; Protocol PRN Reason: Hypoglycemia Folic Acid (Folic Acid 1 Mg Tab) 1 mg PO DAILY [facility] Last Admin: 03/17/22 08:34 Dose: 1 mg Furosemide (Furosemide 10 Mg/Ml 4 Ml Vial) 40 mg IV DAILY [facility] Last Admin: 03/17/22 08:33 Dose: 40 mg Lactated Ringer's (Lactated Ringers) 1,000 mls @ 20 mls/hr IV .Q24H [facility] Last Admin: 03/17/22 06:32 Dose: 20 mls/hr Lactated Ringer's (Lactated Ringers) 1,000 mls @ 20 mls/hr IV .Q24H [facility] Insulin Aspart (Insulin Aspart (Novolog) 100 Unit/Ml Vial) 0 unit SQ ACHS [facility]; Protocol Last Admin: 03/17/22 12:09 Dose: 8 unit Insulin Detemir (Insulin Detemir (Levemir) 100 Unit/Ml Syr) 14 unit SQ DAILY@0700 [facility] Last Admin: 03/17/22 08:34 Dose: 14 unit Lidocaine HCl (Lidocaine 1% (10mg/Ml) For Iv Start) 0.1 ml INTRADERMA PER PROTOCOL PRN PRN Reason: IV Start Metoprolol Tartrate (Metoprolol Tartrate 50 Mg Tab) 100 mg PO BID [facility] Last Admin: 03/17/22 08:34 Dose: 100 mg Miscellaneous Information (Potassium Replacement Protocol 1 Each Misc) 1 each MISCELLANE DAILY PRN; Protocol PRN Reason: Per Protocol Naloxone HCl (Naloxone 0.4 Mg/Ml 1 Ml Vial) 0.2 mg IV Q2M PRN PRN Reason: Opioid Reversal Nicotine (Nicotine 21mg/24hr Patch) 1 patch TRANSDERM DAILY [facility] Last Admin: 03/17/22 08:36 Dose: 1 patch Ondansetron HCl (Ondansetron 4 Mg/2 Ml Vial) 4 mg IVP Q8HR PRN PRN Reason: Nausea And Vomiting Pantoprazole Sodium (Pantoprazole 40 Mg/10 Ml Vial) 40 mg IVP BID [facility] Last Admin: 03/17/22 08:36 Dose: 40 mg Tramadol HCl (Tramadol 50 Mg Tab) 50 mg PO QID PRN PRN Reason: Pain Last Admin: 03/13/22 01:15 Dose: 50 mg Past medical history to include: Diabetes, possible ADHD, chronic low back pain, herniated disc, Social history: Son lives with the patient. 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 Smokes about a pack a day. Alcohol occasionally. Physical examination: VITAL SIGNS: 98.3, 67, 16, 150/75, 100% room air GENERAL: Awake, laying in bed EYES: Pupils equal. Conjunctiva normal. HEENT: External appearance of nose and ears normal, oral cavity mucous membranes moist NECK: JVD not raised; masses not palpable. HEART: Heart sounds normal; no edema. LUNGS: Respiratory rate normal; decreased breath sounds. ABDOMEN: Soft, nontender, liver spleen not palpable, no masses palpable. PSYCH: Answering questions appropriately INVESTIGATIONS, reviewed in the clinical context: March 17: CBC 8.4 hemoglobin 8.9 sodium 135 potassium 4.6 BUN 3 creatinine 0.5 March 10: WBC 11.7 hemoglobin 9.1 platelets 519 sodium 127 potassium 3.9 BUN 6 creatinine 0.51 serum osmolality 271 HbA1c: 12.9 Computed tomography scan brain: No acute processes reported March 03: Sodium 136 potassium 3 BUN 22 creatinine 0.50 albumin 2.2 WBC 36.7 hemoglobin 14.7 platelets 470 potassium 2.7 sodium 128 bicarb 9 BUN 25 crit 0.89 blood glucose 564 UA positive for ketone 4+, leukoesterase negative for nitrite Urine drug screen: Negative Serum acetone positive EKG tracing personally reviewed by me-heart rate 171, ST segment depression Chest x-ray film personally reviewed by me-prominent pulmonary artery. Elevated right diaphragm. 2-D echocardiogram: EF 55-60%. Assessment and plan: -Paroxysmal atrial fibrillation with a rapid ventricular rate, back in sinus rhythm Lopressor 100 mg twice a day. Oral amiodarone -IV heparin -discontinued Follow PTT -Diabetic ketoacidosis: Resolved -Black starry stools/acute GI bleed.. EGD showed mild gastritis and esophagitis. Coloscopy rescheduled for because of poor bowel preparation per Dr. Pabon -Diabetes mellitus type 2, uncontrolled with hyperglycemia Levemir 14 units subcu daily. Follow Accu-Cheks -Acute metabolic encephalopathy, multifactorial, better Computed tomography scan of brain unremarkable.. EEG-encephalopathy. No seizure.. Follow with Neurology -Severe hypokalemia: Better -Hypophosphatemia: Better Replace phosphorus -COPD in a current smoker Bronchodilators as needed -Chronic nicotine dependence, cigarette smoker Nicotine patch -Hypoosmolar, hyponatremia: Worsening Hold of free fluid intake. Received IV Samsca. -L2 S1 laminectomy and decompression, with lower extremity weakness for central spinal cord stenosis. Surgery Per Dr. Newton Continue current meds. Liquid diet. Bowel prep. For colonoscopy tomorrow. We will discuss with Dr. Newton about possible lumbar surgery on Tuesday.
--- NOTE | 2022-03-17 13:42 | P.PN ---
Subjective Progress Note Date: 03/17/22 CHIEF COMPLAINT: Anemia and black stool HISTORY OF PRESENT ILLNESS: Today patient is starting the bowel prep for his third attempt of a colonoscopy for tomorrow. Patient did have multiple bowel movements with soapsuds enema and lactulose yesterday. Patient denies any nausea or vomiting. He does report some abdominal discomfort. He is tolerating clear liquids. His sodium restrictions have been listed for today. Patient had EGD completed showing mild antral gastritis, mild esophagitis and no evidence of any upper GI bleed. Afebrile. WBC is 8.4 hemoglobin is 8.9 platelets 382 sodium is 135 potassium is 4.6 creatinine 0.54 glucose 304 Patient seen and examined with Dr. al PHYSICAL EXAM: VITAL SIGNS: Reviewed. GENERAL: Well-developed in no acute distress. HEENT: No sclera icterus. Extraocular movements grossly intact. Moist buccal mucosa. Head is atraumatic, normocephalic. ABDOMEN: Soft. Nondistended. NEUROLOGIC: Alert and oriented. Cranial nerves II through XII grossly intact. ASSESSMENT: 1. Anemia with black tarry stool 2. Fecal impaction status post disimpaction with evidence of melanotic stools 3. Incidental finding of hydropic gallbladder with cholelithiasis PLAN: -Patient will have repeat colonoscopy on , 03/18/2022 -Continue clear liquid diet today -Start bowel prep this morning -Nothing by mouth after midnight Physician Carpet Mechanic note has been reviewed by physician. Signing provider agrees with the documented findings, assessment, and plan of care. Objective - Vital Signs Vital signs: Vital Signs Temp 98.3 F 03/17/22 08:00 Pulse 67 03/17/22 08:00 Resp 16 03/17/22 08:00 BP 115/75 03/17/22 08:00 Pulse Ox 100 03/17/22 08:00 FiO2 21 03/04/22 07:22 Intake & Output 03/16/22 03/17/22 03/17/22 18:59 06:59 18:59 Output Total 3000 3900 2350 Balance -3000 -3900 -2350 Output: Urine 3000 3900 2350 Other: Voiding Method Indwelling Catheter Indwelling Catheter Indwelling Catheter # Voids 1 # Bowel Movements 2 1 - Labs CBC & Chem 7: 03/17/22 08:05 03/17/22 08:05 Labs: Abnormal Lab Results - Last 24 Hours (Table) 03/16/22 03/16/22 03/17/22 Range/Units 16:21 21:18 07:05 RBC (4.30-5.90) m/uL Hgb (13.0-17.5) gm/dL Hct (39.0-53.0) % Sodium (137-145) mmol/L Chloride (98-107) mmol/L Carbon Dioxide (22-30) mmol/L BUN (9-20) mg/dL Creatinine (0.66-1.25) mg/dL Glucose (74-99) mg/dL POC Glucose (mg/dL) 141 H 304 H 166 H (70-110) mg/dL Calcium (8.4-10.2) mg/dL 03/17/22 03/17/22 03/17/22 Range/Units 08:05 08:05 11:46 RBC 3.18 L (4.30-5.90) m/uL Hgb 8.9 L (13.0-17.5) gm/dL Hct 28.2 L (39.0-53.0) % Sodium 135 L (137-145) mmol/L Chloride 97 L (98-107) mmol/L Carbon Dioxide 31 H (22-30) mmol/L BUN 3 L (9-20) mg/dL Creatinine 0.54 L (0.66-1.25) mg/dL Glucose 176 H (74-99) mg/dL POC Glucose (mg/dL) 304 H (70-110) mg/dL Calcium 7.7 L (8.4-10.2) mg/dL Microbiology - Last 24 Hours (Table) 03/11/22 08:25 Blood Culture - Final Blood No Growth after 144 hours
[2022-03-17] MEDS ORDERED: bisacodyL 10 MG SUPP RECTAL STA (14:46)
--- NOTE | 2022-03-17 16:48 | P.PN ---
Subjective Patient is seen for follow-up for hyponatremia., Hypervolemic and currently being diuresed. Serum sodium had improved to about 134 and decreased to 126 yesterday. Patient received Samsca and sodium is improved to 135 again today. Patient did have increased fluid intake with prep for colonoscopy. Objective - Vital Signs Vital signs: Vital Signs Temp 98.4 F 03/17/22 14:00 Pulse 71 03/17/22 14:00 Resp 16 03/17/22 14:00 BP 93/62 03/17/22 14:00 Pulse Ox 100 03/17/22 14:00 FiO2 21 03/04/22 07:22 Intake & Output 03/16/22 03/17/22 03/17/22 18:59 06:59 18:59 Output Total 3000 3900 2350 Balance -3000 -3900 -2350 Weight 76.3 kg Output: Urine 3000 3900 2350 Other: Voiding Method Indwelling Catheter Indwelling Catheter Indwelling Catheter # Voids 1 # Bowel Movements 2 1 - Exam Awake, comfortable, not in any acute distress Examination of the heart S1 and S2 Examination lungs bilateral breath sounds are heard Abdomen is soft nontender Examination of lower extremity shows edema 1+ bilaterally WATCH CASER exam grossly intact - Labs CBC & Chem 7: 03/17/22 08:05 03/17/22 08:05 Labs: Abnormal Lab Results - Last 24 Hours (Table) 03/16/22 03/17/22 03/17/22 Range/Units 21:18 07:05 08:05 RBC 3.18 L (4.30-5.90) m/uL Hgb 8.9 L (13.0-17.5) gm/dL Hct 28.2 L (39.0-53.0) % Sodium (137-145) mmol/L Chloride (98-107) mmol/L Carbon Dioxide (22-30) mmol/L BUN (9-20) mg/dL Creatinine (0.66-1.25) mg/dL Glucose (74-99) mg/dL POC Glucose (mg/dL) 304 H 166 H (70-110) mg/dL Calcium (8.4-10.2) mg/dL 03/17/22 03/17/22 Range/Units 08:05 11:46 RBC (4.30-5.90) m/uL Hgb (13.0-17.5) gm/dL Hct (39.0-53.0) % Sodium 135 L (137-145) mmol/L Chloride 97 L (98-107) mmol/L Carbon Dioxide 31 H (22-30) mmol/L BUN 3 L (9-20) mg/dL Creatinine 0.54 L (0.66-1.25) mg/dL Glucose 176 H (74-99) mg/dL POC Glucose (mg/dL) 304 H (70-110) mg/dL Calcium 7.7 L (8.4-10.2) mg/dL Microbiology - Last 24 Hours (Table) 03/11/22 08:25 Blood Culture - Final Blood No Growth after 144 hours Assessment and Plan Assessment: 1. Hyponatremia. Hypervolemic, maintained on diuretics. Underlying SIADH also a possibility. Status post Samsca and improved. 2. Right adrenal mass suggestive of benign adrenal adenoma on CAT scan done 03/09/2022. Doubt hyperaldosteronism state as patient has no history of hypertension and blood pressure is fairly well controlled without any antihypertensive meds. Cortisol level normal. 3. Metabolic alkalosis secondary to bicarb supplementation. Bicarb supplementation stopped 03/09/2022. 4. Central spinal cord stenosis. Surgery pending. 5. Anemia. Concern for GI bleed. EGD showed mild gastritis without any acute bleed. Colonoscopy tomorrow. Hemoglobin 9.1 today. Iron deficiency noted. 6. Diabetes mellitus. 7. Fluid overload improved, 8. UTI with urine culture growing enterococcus cloacae and Betty Plan: Continue to monitor serum sodium Maintain fluid restriction Samsca as needed
[2022-03-17 17:01] LABS: Glucose,Whole Blood 286 mg/dL (70-110)
[2022-03-17 19:32] LABS: Glucose,Whole Blood 294 mg/dL (70-110)
[2022-03-18] MEDS: HYDROcodone/APAP 7.5-325MG 1 EACH TAB PO PRN ×3 (01:53→22:03)
[2022-03-18 07:03] LABS: Glucose,Whole Blood 138 mg/dL (70-110)
[2022-03-18] MEDS: INSULIN ASPART (NovoLOG) 100 UNIT/ML VIAL SQ SCH ×4 (08:09→22:03)
--- NOTE | 2022-03-18 08:35 | P.PN ---
Subjective Progress Note Date: 03/18/22 Principal diagnosis: Bilateral lower extremity weakness Patient seen and examined at bedside. Patient is resting semi-recumbent in hospital bed with PRAFO boots present on bilateral feet. Patient is currently NPO for colonoscopy today. Patient states that his pain is managed on current regimen. Encouraged use of incentive spirometer. Araujo Catheter present and patent. Patient currently denies any fever/chills, shortness of breath, or chest pain. Objective - Vital Signs Vital signs: Vital Signs Temp 98.0 F 03/18/22 08:00 Pulse 63 03/18/22 08:00 Resp 17 03/18/22 08:00 BP 95/60 03/18/22 08:00 Pulse Ox 100 03/18/22 08:00 FiO2 21 03/04/22 07:22 Intake & Output 03/17/22 03/18/22 03/18/22 18:59 06:59 18:59 Intake Total 600 Output Total 2350 650 Balance -1750 -650 Weight 76.3 kg Intake: Intake, IV Titration 600 Amount Lactated Ringers 1,000 ml 600 @ 20 mls/hr IV .Q24H [facility] Rx#:[id number] Output: Urine 2350 650 Other: Voiding Method Indwelling Catheter Indwelling Catheter Indwelling Catheter - Exam Physical Examination General: The patient is awake and alert, in no acute distress Skin: Skin is warm and dry with no obvious rashes or lesions. Hairy patches absent, no dorsal skin dimples, no cafe au lait spots, and no surgical incisions. Prafo boots present bilaterally. Eye: Pupils are equal, round and reactive to light, extra-ocular movements are intact; there is normal conjunctiva bilaterally. Neck: The neck is supple, there is no tenderness and ROM intact. Cardiovascular: There is a regular rate and rhythm. No murmur, rub or gallop is appreciated. Respiratory: Lungs are clear to auscultation, respirations are non-labored, breath sounds are equal. Gastrointestinal: Soft, non-distended, non-tender abdomen . Back: There is slight tenderness to palpation in the paralumbar region. There is no obvious deformity . Musculoskeletal: ROM limited secondary to pain. Muscle strength is 5/5 in all major muscle groups in BUE, 3/5 in LLE, and absent in RLE Neurological: CN 2-12 intact. There are no obvious motor or sensory deficits. Movement and coordination equal and intact. Sensory exam to light touch intact C5-T1 and intact from L2-S1. Reflexes 2/4 in bilateral upper and lower extremiti es. Negative Hoffmans, babinski, and clonus signs. Psychiatric: Cooperative, appropriate mood & affect, normal judgment. - Labs CBC & Chem 7: 03/17/22 08:05 03/17/22 08:05 Labs: Abnormal Lab Results - Last 24 Hours (Table) 03/17/22 03/17/22 03/17/22 Range/Units 08:05 08:05 11:46 RBC 3.18 L (4.30-5.90) m/uL Hgb 8.9 L (13.0-17.5) gm/dL Hct 28.2 L (39.0-53.0) % Sodium 135 L (137-145) mmol/L Chloride 97 L (98-107) mmol/L Carbon Dioxide 31 H (22-30) mmol/L BUN 3 L (9-20) mg/dL Creatinine 0.54 L (0.66-1.25) mg/dL Glucose 176 H (74-99) mg/dL POC Glucose (mg/dL) 304 H (70-110) mg/dL Calcium 7.7 L (8.4-10.2) mg/dL 03/17/22 03/17/22 03/18/22 Range/Units 17:00 19:30 07:02 RBC (4.30-5.90) m/uL Hgb (13.0-17.5) gm/dL Hct (39.0-53.0) % Sodium (137-145) mmol/L Chloride (98-107) mmol/L Carbon Dioxide (22-30) mmol/L BUN (9-20) mg/dL Creatinine (0.66-1.25) mg/dL Glucose (74-99) mg/dL POC Glucose (mg/dL) 286 H 294 H 138 H (70-110) mg/dL Calcium (8.4-10.2) mg/dL Microbiology - Last 24 Hours (Table) 03/11/22 08:25 Blood Culture - Final Blood No Growth after 144 hours Assessment and Plan Assessment: Degenerative disc disease Central spinal cord stenosis at L2-L5 Bilateral lower extremity weakness Plan: Plan: Plan for surgical intervention for L2-S1 laminectomy with decompression and possible fusion pending. Appreciate medical, pulmonology, cardiology/vascular management Pain management - Tylenol; tramadol GI prophylaxis - Maalox; protonix - Maintain araujo catheter PT/OT - weightbearing as tolerated with walker, maintain PRAFO boots when in bed. *I reviewed and discussed this case with my attending Dr. Newton, whom has reviewed this chart and films and is in agreement with assessment and plan of care as outlined above. I have personally seen and examined the patient, performed the documentation and the assessment and plan as written. Number of minutes spent on the visit: 20m.
[2022-03-18] MEDS: FUROSEMIDE 10 MG/ML 4 ML VIAL IV SCH (08:36)
[2022-03-18] MEDS: METOPROLOL TARTRATE 50 MG TAB PO SCH ×2 (08:36→22:04)
[2022-03-18] MEDS: FOLIC ACID 1 MG TAB PO SCH (08:41)
[2022-03-18] MEDS: NICOTINE 21MG/24HR PATCH TRANSDERM SCH (08:42)
[2022-03-18] MEDS: AMIODARONE 200 MG TAB PO SCH (08:42)
--- NOTE | 2022-03-18 08:48 | P.PN ---
Subjective Progress Note Date: 03/17/22 Principal diagnosis: Enterobacter catheter associated UTI Patient is a 62 year old male with initial presentation hospital 10 07/30/2003 palpitation and shortness of breath patient did have a low-grade fever and a positive urine culture with Enterobacter. Patient has developed significant constipation and possible GI bleed status post disimpaction on 03/11/2022, patient has developed unstageable pressure ulcer to the sacral area apparently started last week as a deep tissue injury on 03/11/2022 per the nursing staff, the patient colonoscopy was canceled because of poor bowel prep On today's evaluation that is 03/17/2022, the patient remains to be afebrile , t he patient is breathing comfortably on room air, the patient denies chest pain shortness of breath or cough no abdominal pain no diarrhea, no new symptoms Objective - Vital Signs Vital signs: Vital Signs Temp 98.3 F 03/17/22 08:00 Pulse 67 03/17/22 08:00 Resp 16 03/17/22 08:00 BP 115/75 03/17/22 08:00 Pulse Ox 100 03/17/22 08:00 FiO2 21 03/04/22 07:22 Intake & Output 03/16/22 03/17/22 03/17/22 18:59 06:59 18:59 Output Total 3000 3900 2350 Balance -3000 -3900 -2350 Output: Urine 3000 3900 2350 Other: Voiding Method Indwelling Catheter Indwelling Catheter Indwelling Catheter # Voids 1 # Bowel Movements 2 1 - Exam GENERAL DESCRIPTION: A middle-aged male lying in bed in no distress RESPIRATORY SYSTEM: Unlabored breathing , decreased breath sounds at bases HEART: S1 S2 regular rate and rhythm , ABDOMEN: Soft , no tenderness Patient with unstageable sacral pressure ulcer with necrotic tissue no surrounding redness or drainage EXTREMITIES: No edema feet - Labs CBC & Chem 7: 03/17/22 08:05 03/17/22 08:05 Labs: Abnormal Lab Results - Last 24 Hours (Table) 03/16/22 03/16/22 03/17/22 Range/Units 16:21 21:18 07:05 RBC (4.30-5.90) m/uL Hgb (13.0-17.5) gm/dL Hct (39.0-53.0) % Sodium (137-145) mmol/L Chloride (98-107) mmol/L Carbon Dioxide (22-30) mmol/L BUN (9-20) mg/dL Creatinine (0.66-1.25) mg/dL Glucose (74-99) mg/dL POC Glucose (mg/dL) 141 H 304 H 166 H (70-110) mg/dL Calcium (8.4-10.2) mg/dL 03/17/22 03/17/22 03/17/22 Range/Units 08:05 08:05 11:46 RBC 3.18 L (4.30-5.90) m/uL Hgb 8.9 L (13.0-17.5) gm/dL Hct 28.2 L (39.0-53.0) % Sodium 135 L (137-145) mmol/L Chloride 97 L (98-107) mmol/L Carbon Dioxide 31 H (22-30) mmol/L BUN 3 L (9-20) mg/dL Creatinine 0.54 L (0.66-1.25) mg/dL Glucose 176 H (74-99) mg/dL POC Glucose (mg/dL) 304 H (70-110) mg/dL Calcium 7.7 L (8.4-10.2) mg/dL Microbiology - Last 24 Hours (Table) 03/11/22 08:25 Blood Culture - Final Blood No Growth after 144 hours Assessment and Plan (1) Catheter-associated urinary tract infection Current Visit: Yes Status: Acute Code(s): T83.511A - I/I REACT D/T INDWELLING URETHRAL CATHETER, INIT; N39.0 - URINARY TRACT INFECTION, SITE NOT SPECIFIED SNOMED Code(s): 937166253 Plan: 1patient with a low-grade fever positive UA and urinary symptoms retention requiring Zee catheter placement concerning for a symptomatic UTI urine has been finalized with Enterobacter and this patient is currently on amiodarone using quinolones can lead to QT prolongation patient received adequate antibiotic therapy will monitor the patient closely off antibiotics, so far doing well 2 the patient repeat culture with vashti and diflucan cannot be added because of amiodarone , the patient still have a positive UA however the patient is afebrile white count is normal we will monitor the patient closely without any antifungal treatment 3-Pt with unstageable sacral pressure ulcer, the patient will benefit from surgical debridement for now local wound care with medihoney and keep the area off the pressure Time with Patient: Less than 30
[2022-03-18] MEDS: PANTOPRAZOLE 40 MG/10 ML VIAL IVP SCH ×2 (09:05→22:03)
[2022-03-18 10:11] LABS: HCT 23.5 % (39.6-50.0); HGB 7.7 g/dL (13.0-17.0); MCH 28.2 pg (27.0-32.0); MCHC 32.8 g/dL (32.0-37.0); MCV 86.1 fL (80.0-97.0); Mean Platelet Volume 8.5 fL (9.5-12.2); NRBC Per 100 WBC 0 /100 WBCS (0.0-0.0); Platelet Count 304 X 10*3/uL (140-440); RBC 2.73 X 10*6/uL (4.40-5.60); RDW 14.7 % (11.5-14.5)
[2022-03-18 10:24] LABS: African American GFR (CKD) 147.5 (60.0-200.0); BUN/Creat Ratio 7.25 Ratio (12.00-20.00); Blood Urea Nitrogen 2.9 mg/dL (9.0-27.0); Calcium 7.7 mg/dL (8.7-10.3); Non-African American GFR(CKD) 127.3 (60.0-200.0); Potassium 4.1 mmol/L (3.5-5.5)
[2022-03-18] MEDS ORDERED: PROPOFOL 10 MG/ML 20 ML VIAL IV ONE (10:42)
[2022-03-18] MEDS ORDERED: IV FLUID CONTINUATION 500 ML IV ONE (10:43)
--- NOTE | 2022-03-18 11:10 | P.OP ---
Date of Procedure: 03/18/22 Preoperative Diagnosis: GI bleed Postoperative Diagnosis: Mild diverticulosis Fecal impaction Procedure(s) Performed: Colonoscopy Digital disimpaction Anesthesia: MAC Surgeon: Neal Pabon Pathology: none sent Condition: stable Disposition: PACU Description of Procedure: The patient's placed on the endoscopy table in the lateral position. He received IV sedation. Digital rectal exam was performed which revealed fecal stool ball the rectum. This was disimpacted. The flexible colonoscope was then placed patient anus passed rotator entire colon. Ileocecal valve was visualized. The cecum, ascending and transverse colon appeared normal. The descending and sigmoid colon had mild diverticular changes. Scope was then brought back the rectum and this appeared normal. Scope withdrawn for patient.
[2022-03-18] MEDS: LACTATED RINGERS 1,000 ML IV SCH ×2 (11:27→12:32)
[2022-03-18 11:39] LABS: Glucose,Whole Blood 116 mg/dL (70-110)
[2022-03-18] MEDS: INSULIN DETEMIR (LEVEMIR) 100 UNIT/ML SYR SQ SCH (12:31)
--- NOTE | 2022-03-18 14:14 | P.PN ---
Progress Note - Text Progress Note Date: 03/18/22 Chief Complaint: Low back pain This is a 62-year-old patient, follows with Dr. Mendez. Chronic stable medical conditions include ADHD, herniated disc lower back, smoker. Patient's son at the bedside. Patient yesterday took his medication was going to the bathroom and the son noticed that he was feeling looking weak. He became less responsive. Never passed out. Shaky. No fever or chills reported. EMS was called out. Patient is found to be in atrial fibrillation with rapid ventricular rate. In the ER started on IV heparin, given adenosine, later put on IV Cardizem. Also found to be in DKA. Put on insulin drip. Potassium was very low NG tube had to be pacemaker placement. Tired. Most of the history of pain medicine at the bedside. Patient rather tired and lethargic. Admitted with new onset of atrial fibrillation uncontrolled, diabetic ketoacidosis, acute metabolic encephalopathy, severe hypokalemia. Started on Cardizem drip, IV heparin, insulin drip. NG tube was placed for potassium replacement. March 03: ICU: Patient went back into sinus rhythm. Did have 3-4 minutes burst of A. fib with rapid ventricular rate and rhythm back in sinus rhythm. IV heparin is being changed over to subcu Lovenox 70 mg every 12. Insulin drip is discontinued. Put on Levemir 10 units. NG tube in place. Potassium being replaced. Still patient is rather lethargic. We'll get a computed tomography scan of the brain. And EEG. March 04: ICU: Remains in sinus rhythm. Has been off Cardizem drip. Slightly more awake but still lethargic. Attempted to answer questions. Potassium down to 2.7. Potassium being replaced. At magnesium. By mouth amiodarone. On IV ceftriaxone for possible UTI. Sinus rhythm. Stop Catapres increase Lopressor to 100 mg twice a day. Check ammonia level. Phosphorus being replaced. Consult neurology. CT brain negative for stroke. EEG results pending. March 05: ICU. Laying in bed. Weak. EEG showed encephalopathy. Weakness in all the limbs. Just ordered able to lift his arms. [place] to be from electrolyte abnormalities. Able to answer questions slowly. Did tolerate some ice chips. Nurse will try to feed the patient. Lethargic but more awake. PTOT consulted. Unstageable bluish decolorization of the sacrum and heels. NG tube discontinued. IV fluids. 03/06/2020: Patient remains in the ICU improving slowly and gradually. Still had fever yesterday of 100.7, no more fever today. Other vitals are stable. Patient remains on ceftriaxone and he is been treated for UTI with Enterobacter. He still has fever as of yesterday therefore we will check renal ultrasound. Corcalcitonin 1.03, His altered mentation most likely is secondary to metabolic/toxic encephalopathy and UTI, neurologist on the case and he ordered MRI of the thoracolumbar spine to rule out spinal stenosis, results showing multilevel lumbar spinal stenosis but is mild and there is no spinal stenosis of the thoracic spine. Cardiology the case for new-onset A. fib, currently on Lovenox and amiodarone and rate controlled. Distal on IV fluids under lactate 125 Ulcers on Protonix 40 mg oral twice a day and Lovenox 70 mg twice daily. Glucose controlled on Levemir 14 units. His hemoglobin A1c is 12.9% and his DKA on admission resolved 03/07/2022 Patient still feels generally weak and lethargic. However he has good appetite. He denies chest pain or abdominal pain. No dyspnea. He looks comfortable in bed. He had 1 small bowel movement, no diarrhea. Zee catheter in place with yellow urine. Patient procalcitonin significantly improved down to 0.15, however his culture showed Enterobacter resistant to ceftriaxone. Patient currently on oral Levaquin. We going to consult infectious disease team. WBC is 11.3. Sodium 129. Patient fever on admission has subsided since then. Neurologist on the case and recommended EMG and nerve conduction study as an outpatient. Patient currently on Lovenox 70 mg twice a day, Levemir insulin 14 units and amiodarone. Also he is on oral Protonix twice daily and IV fluids under lactate at 125 Patient tolerates some diet, lower rate elected down to 75 mL/h renal ultrasound order, follow-up results 03/08/2022 Patient is seen and evaluated in follow-up this morning with multiple medical consultations including neurology, pulmonary, infectious disease, orthopedics following. Plan is for possible lumbar decompression sometime this week. Have consulted general surgery as per nursing report patient had a large dark tarry stool this morning. Hemoglobin is stable at 9.7. Patient's sodium is 129 with a potassium of 3.7 current creatinine is stable at 0.42. Blood sugars have been elevated and will continue current regimen. WBC remains elevated and patient is maintained on cefepime and will continue. Oral intake continues to be fair to poor and patient continues to report back pain. Patient has been febrile. Patient denies chest pain or shortness of breath. Patient is extremely lethargic with generalized edema noted throughout. Will consult nephrology for hyponatremia 03/09/2022 Patient is seen and evaluated in follow-up this morning. Multiple medical consultations following including orthopedics, general surgery, nephrology, pulmonary, and infectious disease. Plan was for tentative decompression surgery with orthopedics although sodium continues to be low and nursing reported dark tarry stools and is being evaluated with EGD/colonoscopy that is to be done on . Patient will start bowel prep tomorrow and will monitor closely of labs. Abdomen ultrasound was ordered as well and patient is continue with indwelling Zee catheter. Patient currently maintained on antibiotics and will continue. Patient is maintained on clear liquids and tolerating appears more awake and alert than yesterday. Patient continues to be weak and denies chest pain or shortness of breath. Patient labs currently pending and nephrology is following for hyponatremia and was started on Lasix. 03/10/2022: I resumed care of the patient today Tolerating clear liquids. Tired. Pending surgery-Dr. Newton . Back pain controlled. Patient's had black starry stools. For colonoscopy per Dr. Pabon. 03/11/2022: Patient had soft brown stool today. Some abdominal discomfort. Pending colonoscopy today. Received bowel preparation. Patient received 1 dose of Samsca yesterday. Also IV Ferrlecit. 03/12/2022. Colonoscopic could not be done yesterday because of poor bowel preparation. Dark stool was encountered during start of colonoscopy. Patient back on clear liquids. Now rescheduled for Tuesday. 03/13/2022: Patient had bowel preparation done tomorrow for colonoscopy Tuesday. Tolerating liquid diet. 03/14/2022: On liquid diet. Getting bowel preparation for tomorrow. Otherwise stable. Discussed with patient. 03/15/2022: Complaining of mid back pain. Received bowel prep yesterday. Had 2- 3 bowel movements. Possible endoscopy today. Awaiting decision from Dr. Newton for lumbar surgery either this admission nor following some rehab 03/16/2022: wentdown for colonoscopy. Yesterday. Found to have large brown stool in the vault. Procedure canceled. Being rescheduled for . 03/17/2022: Liquid diet. Scheduled for colonoscopic . Intermittent back pain. Bowel prep for surgery. 03/18/2022: Underwent colonoscopy today. Unremarkable. Discussed with Dr. Santana from ID. Has a sacral wound. Like Dr. Pabon to debrided the same. Given that not a good idea to patient have lumbar surgery at this point. This should be postponed for later. Active Medications Acetaminophen (Acetaminophen Tab 325 Mg Tab) 650 mg PO Q6HR PRN PRN Reason: Mild Pain or Fever > 100.5 Last Admin: 03/16/22 21:15 Dose: 650 mg Hydrocodone Bitart/Acetaminophen (Hydrocodone/Apap 7.5-325mg 1 Each Tab) 1 each PO Q6HR PRN PRN Reason: Pain Last Admin: 03/18/22 09:05 Dose: 1 each Al Hydroxide/Mg Hydroxide (Mag Hydrox/Al Hydrox/Simeth 30 Ml Cup) 15 ml PO Q6HR PRN PRN Reason: Indigestion Amiodarone HCl (Amiodarone 200 Mg Tab) 200 mg PO DAILY [facility] Last Admin: 03/18/22 08:42 Dose: 200 mg Dextrose/Water (Dextrose 50% Syringe 50 Ml) 25 ml IVP PER PROTOCOL PRN; Protocol PRN Reason: Hypoglycemia Last Admin: 03/11/22 16:43 Dose: 25 ml Dextrose/Water (Dextrose 50% Syringe 50 Ml) 50 ml IVP PER PROTOCOL PRN; Protocol PRN Reason: Hypoglycemia Folic Acid (Folic Acid 1 Mg Tab) 1 mg PO DAILY [facility] Last Admin: 03/18/22 08:41 Dose: 1 mg Furosemide (Furosemide 10 Mg/Ml 4 Ml Vial) 40 mg IV DAILY [facility] Last Admin: 03/18/22 08:36 Dose: Not Given Lactated Ringer's (Lactated Ringers) 1,000 mls @ 20 mls/hr IV .Q24H [facility] Last Admin: 03/18/22 12:32 Dose: Not Given Lactated Ringer's (Lactated Ringers) 1,000 mls @ 20 mls/hr IV .Q24H [facility] Last Admin: 03/18/22 11:27 Dose: Not Given Insulin Aspart (Insulin Aspart (Novolog) 100 Unit/Ml Vial) 0 unit SQ ACHS [facility]; Protocol Last Admin: 03/18/22 11:38 Dose: Not Given Insulin Detemir (Insulin Detemir (Levemir) 100 Unit/Ml Syr) 14 unit SQ DAILY@0700 [facility] Last Admin: 03/18/22 12:31 Dose: Not Given Lidocaine HCl (Lidocaine 1% (10mg/Ml) For Iv Start) 0.1 ml INTRADERMA PER PROTOCOL PRN PRN Reason: IV Start Metoprolol Tartrate (Metoprolol Tartrate 50 Mg Tab) 100 mg PO BID [facility] Last Admin: 03/18/22 08:36 Dose: Not Given Miscellaneous Information (Potassium Replacement Protocol 1 Each Misc) 1 each MISCELLANE DAILY PRN; Protocol PRN Reason: Per Protocol Naloxone HCl (Naloxone 0.4 Mg/Ml 1 Ml Vial) 0.2 mg IV Q2M PRN PRN Reason: Opioid Reversal Nicotine (Nicotine 21mg/24hr Patch) 1 patch TRANSDERM DAILY [facility] Last Admin: 03/18/22 08:42 Dose: 1 patch Ondansetron HCl (Ondansetron 4 Mg/2 Ml Vial) 4 mg IVP Q8HR PRN PRN Reason: Nausea And Vomiting Pantoprazole Sodium (Pantoprazole 40 Mg/10 Ml Vial) 40 mg IVP BID [facility] Last Admin: 03/18/22 09:05 Dose: 40 mg Tramadol HCl (Tramadol 50 Mg Tab) 50 mg PO QID PRN PRN Reason: Pain Last Admin: 03/13/22 01:15 Dose: 50 mg Past medical history to include: Diabetes, possible ADHD, chronic low back pain, herniated disc, Social history: Son lives with the patient. 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 Smokes about a pack a day. Alcohol occasionally. Physical examination: VITAL SIGNS: 98.2, 70, 18, 96/60, 100% room air GENERAL: Awake, laying in bed EYES: Pupils equal. Conjunctiva normal. HEENT: External appearance of nose and ears normal, oral cavity mucous membranes moist NECK: JVD not raised; masses not palpable. HEART: Heart sounds normal; no edema. LUNGS: Respiratory rate normal; decreased breath sounds. ABDOMEN: Soft, nontender, liver spleen not palpable, no masses palpable. Unstageble Sacral pressure ulcer, PSYCH: Answering questions appropriately INVESTIGATIONS, reviewed in the clinical context: March 18: WBC 7.9 hemoglobin 7.7 platelets 304 potassium 4.1 creatinine 0.4 Colonoscopy: Unremarkable March 17: CBC 8.4 hemoglobin 8.9 sodium 135 potassium 4.6 BUN 3 creatinine 0.5 March 10: WBC 11.7 hemoglobin 9.1 platelets 519 sodium 127 potassium 3.9 BUN 6 creatinine 0.51 serum osmolality 271 HbA1c: 12.9 Computed tomography scan brain: No acute processes reported March 03: Sodium 136 potassium 3 BUN 22 creatinine 0.50 albumin 2.2 WBC 36.7 hemoglobin 14.7 platelets 470 potassium 2.7 sodium 128 bicarb 9 BUN 25 crit 0.89 blood glucose 564 UA positive for ketone 4+, leukoesterase negative for nitrite Urine drug screen: Negative Serum acetone positive EKG tracing personally reviewed by me-heart rate 171, ST segment depression Chest x-ray film personally reviewed by me-prominent pulmonary artery. Elevated right diaphragm. 2-D echocardiogram: EF 55-60%. Assessment and plan: -Paroxysmal atrial fibrillation with a rapid ventricular rate, back in sinus rhythm Lopressor 100 mg twice a day. Oral amiodarone -IV heparin -discontinued Follow PTT -Diabetic ketoacidosis: Resolved -Black starry stools/acute GI bleed..: Resolved EGD showed mild gastritis and esophagitis. Coloscopy -unremarkable -Unstageable sacral, pressure ulcer, POA [address] Pabon -Diabetes mellitus type 2, uncontrolled with hyperglycemia Levemir 14 units subcu daily. Follow Accu-Cheks -Acute metabolic encephalopathy, multifactorial, better Computed tomography scan of brain unremarkable.. EEG-encephalopathy. No seizure.. Follow with Neurology -Severe hypokalemia: Better -Hypophosphatemia: Better Replace phosphorus -COPD in a current smoker Bronchodilators as needed -Chronic nicotine dependence, cigarette smoker Nicotine patch -Possibly SIADH . Received IV Samsca. -L2 S1 laminectomy and decompression, with lower extremity weakness for central spinal cord stenosis. Surgery Per Dr. Newton: To be postponed, likely outpatient given the sacral ulcer that has to be debrided. Discussed with ID. Dr. Pabon to debride sacral ulcer. Currently not unstageable. to postpone the lumbar surgery for outpatient.
--- NOTE | 2022-03-18 14:18 | P.PN ---
Subjective Patient is seen for follow-up for hyponatremia., Hypervolemic and currently being diuresed. Serum sodium had improved to about 134 and decreased to 126 yesterday. Patient received Samsca and sodium is improved to 135 again No complaints today Objective - Vital Signs Vital signs: Vital Signs Temp 98.2 F 03/18/22 11:13 Pulse 68 03/18/22 12:06 Resp 18 03/18/22 11:13 BP 96/60 03/18/22 12:06 Pulse Ox 100 03/18/22 12:06 FiO2 21 03/04/22 07:22 Intake & Output 03/17/22 03/18/22 03/18/22 18:59 06:59 18:59 Intake Total 600 100 Output Total 2350 650 Balance -1750 -650 100 Weight 76.3 kg Intake: IV 100 Intake, IV Titration 600 Amount Lactated Ringers 1,000 ml 600 @ 20 mls/hr IV .Q24H [facility] Rx#:[id number] Output: Urine 2350 650 Other: Voiding Method Indwelling Catheter Indwelling Catheter Indwelling Catheter - Exam Awake, comfortable, not in any acute distress Examination of the heart S1 and S2 Examination lungs bilateral breath sounds are heard Abdomen is soft nontender Examination of lower extremity shows edema 1+ bilaterally [employer] DEVELOPER exam grossly intact - Labs CBC & Chem 7: 03/18/22 06:50 03/18/22 06:50 Labs: Abnormal Lab Results - Last 24 Hours (Table) 03/17/22 03/17/22 03/18/22 Range/Units 17:00 19:30 06:50 RBC 2.73 L (4.40-5.60) X 10*6/uL Hgb 7.7 L (13.0-17.0) g/dL Hct 23.5 L (39.6-50.0) % RDW 14.7 H (11.5-14.5) % MPV 8.5 L (9.5-12.2) fL Carbon Dioxide (20.0-27.5) mmol/L Anion Gap (10.00-18.00) mmol/L BUN (9.0-27.0) mg/dL Creatinine (0.6-1.5) mg/dL BUN/Creatinine Ratio (12.00-20.00) Ratio POC Glucose (mg/dL) 286 H 294 H (70-110) mg/dL Calcium (8.7-10.3) mg/dL 03/18/22 03/18/22 03/18/22 Range/Units 06:50 07:02 11:38 RBC (4.40-5.60) X 10*6/uL Hgb (13.0-17.0) g/dL Hct (39.6-50.0) % RDW (11.5-14.5) % MPV (9.5-12.2) fL Carbon Dioxide 28.0 H (20.0-27.5) mmol/L Anion Gap 7.00 L (10.00-18.00) mmol/L BUN 2.9 L (9.0-27.0) mg/dL Creatinine 0.4 L (0.6-1.5) mg/dL BUN/Creatinine Ratio 7.25 L (12.00-20.00) Ratio POC Glucose (mg/dL) 138 H 116 H (70-110) mg/dL Calcium 7.7 L (8.7-10.3) mg/dL Microbiology - Last 24 Hours (Table) 03/11/22 08:25 Blood Culture - Final Blood No Growth after 144 hours Assessment and Plan Assessment: 1. Hyponatremia. Hypervolemic, maintained on diuretics. Underlying SIADH also a possibility. Status post Samsca and improved. 2. Right adrenal mass suggestive of benign adrenal adenoma on CAT scan done 03/09/2022. Doubt hyperaldosteronism state as patient has no history of hypertension and blood pressure is fairly well controlled without any antihyp ertensive meds. Cortisol level normal. 3. Metabolic alkalosis secondary to bicarb supplementation. Bicarb supplementation stopped 03/09/2022. 4. Central spinal cord stenosis. Surgery pending. 5. Anemia. Concern for GI bleed. EGD showed mild gastritis without any acute bleed. Colonoscopy tomorrow. Hemoglobin 9.1 today. Iron deficiency noted. 6. Diabetes mellitus. 7. Fluid overload improved, 8. UTI with urine culture growing enterococcus cloacae and Betty Plan: Continue to monitor serum sodium Maintain fluid restriction Samsca as needed
[2022-03-18 16:51] LABS: Glucose,Whole Blood 237 mg/dL (70-110)
[2022-03-18] MEDS: MAG HYDROX/AL HYDROX/SIMETH 30 ML CUP PO PRN (19:30)
[2022-03-18 20:44] LABS: Glucose,Whole Blood 254 mg/dL (70-110)
[2022-03-19] MEDS: HYDROcodone/APAP 7.5-325MG 1 EACH TAB PO PRN ×3 (06:04→22:02)
[2022-03-19 07:01] LABS: Glucose,Whole Blood 254 mg/dL (70-110)
[2022-03-19] MEDS: PANTOPRAZOLE 40 MG/10 ML VIAL IVP SCH ×2 (08:17→21:02)
[2022-03-19] MEDS: FUROSEMIDE 10 MG/ML 4 ML VIAL IV SCH ×2 (08:18→08:21)
[2022-03-19] MEDS: INSULIN ASPART (NovoLOG) 100 UNIT/ML VIAL SQ SCH ×4 (08:18→21:03)
[2022-03-19] MEDS: INSULIN DETEMIR (LEVEMIR) 100 UNIT/ML SYR SQ SCH (08:18)
[2022-03-19] MEDS: FOLIC ACID 1 MG TAB PO SCH (08:20)
[2022-03-19] MEDS: AMIODARONE 200 MG TAB PO SCH (08:20)
[2022-03-19] MEDS: METOPROLOL TARTRATE 50 MG TAB PO SCH ×2 (08:20→21:02)
[2022-03-19] MEDS: NICOTINE 21MG/24HR PATCH TRANSDERM SCH (08:20)
[2022-03-19 09:08] LABS: HCT 25.4 % (39.0-53.0); Hypochromasia Moderate; MCH 27.2 pg (25.0-35.0); MCHC 31.3 g/dL (31.0-37.0); MCV 86.8 fL (80.0-100.0); Mean Platelet Volume 7.4; Platelet Count 355 k/uL (150-450); RBC 2.93 m/uL (4.30-5.90); WBC 8.3 k/uL (3.8-10.6)
--- NOTE | 2022-03-19 10:26 | P.PN ---
Subjective Progress Note Date: 03/19/22 Principal diagnosis: Bilateral lower extremity weakness Patient seen and examined at bedside. Patient is resting semi-recumbent in hospital bed with PRAFO boots present on bilateral feet. Patient continues to demonstrate ankle and dorsal flexion and extension of LLE. Patient remains unable to move RLE. Dressing intact to Sacral Wound. Patient states that his pain is managed on current regimen. Encouraged use of incentive spirometer. Araujo Catheter present and patent. Patient currently denies any fever/chills, shortness of breath, or chest pain. Objective - Vital Signs Vital signs: Vital Signs Temp 98.1 F 03/19/22 07:34 Pulse 87 03/19/22 07:34 Resp 17 03/19/22 07:34 BP 104/65 03/19/22 07:34 Pulse Ox 100 03/19/22 07:34 FiO2 21 03/04/22 07:22 Intake & Output 03/18/22 03/19/22 03/19/22 18:59 06:59 18:59 Intake Total 100 450 Output Total 800 Balance -700 450 Intake: IV 100 Oral 450 Output: Urine 800 Other: Voiding Method Indwelling Catheter Indwelling Catheter Indwelling Catheter - Exam Physical Examination General: The patient is awake and alert, in no acute distress Skin: Skin is warm and dry with a sacral pressure wound. Hairy patches absent, no dorsal skin dimples, no cafe au lait spots, and no surgical incisions. Prafo boots present bilaterally. Eye: Pupils are equal, round and reactive to light, extra-ocular movements are intact; there is normal conjunctiva bilaterally. Neck: The neck is supple, there is no tenderness and ROM intact. Cardiovascular: There is a regular rate and rhythm. No murmur, rub or gallop is appreciated. Respiratory: Lungs are clear to auscultation, respirations are non-labored, breath sounds are equal. Gastrointestinal: Soft, non-distended, non-tender abdomen . Back: There is slight tenderness to palpation in the paralumbar region. There is no obvious deformity . Musculoskeletal: ROM limited secondary to pain. Muscle strength is 5/5 in all major muscle groups in BUE, 3/5 in LLE, and absent in RLE Neurological: CN 2-12 intact. There are no obvious motor or sensory deficits. Movement and coordination equal and intact. Sensory exam to light touch intact C5-T1 and intact from L2-S1. Reflexes 2/4 in bilateral upper and lower extremities. Negative Hoffmans, babinski, and clonus signs. Psychiatric: Cooperative, appropriate mood & affect, normal judgment. - Labs CBC & Chem 7: 03/19/22 07:56 03/18/22 06:50 Labs: Abnormal Lab Results - Last 24 Hours (Table) 03/18/22 03/18/22 03/18/22 Range/Units 06:50 06:50 11:38 RBC 2.73 L (4.40-5.60) X 10*6/uL Hgb 7.7 L (13.0-17.0) g/dL Hct 23.5 L (39.6-50.0) % RDW 14.7 H (11.5-14.5) % MPV 8.5 L (9.5-12.2) fL Carbon Dioxide 28.0 H (20.0-27.5) mmol/L Anion Gap 7.00 L (10.00-18.00) mmol/L BUN 2.9 L (9.0-27.0) mg/dL Creatinine 0.4 L (0.6-1.5) mg/dL BUN/Creatinine Ratio 7.25 L (12.00-20.00) Ratio POC Glucose (mg/dL) 116 H (70-110) mg/dL Calcium 7.7 L (8.7-10.3) mg/dL 03/18/22 03/18/22 03/19/22 Range/Units 16:49 20:42 06:59 RBC (4.40-5.60) X 10*6/uL Hgb (13.0-17.0) g/dL Hct (39.6-50.0) % RDW (11.5-14.5) % MPV (9.5-12.2) fL Carbon Dioxide (20.0-27.5) mmol/L Anion Gap (10.00-18.00) mmol/L BUN (9.0-27.0) mg/dL Creatinine (0.6-1.5) mg/dL BUN/Creatinine Ratio (12.00-20.00) Ratio POC Glucose (mg/dL) 237 H 254 H 254 H (70-110) mg/dL Calcium (8.7-10.3) mg/dL 03/19/22 Range/Units 07:56 RBC 2.93 L (4.40-5.60) X 10*6/uL Hgb 8.0 L (13.0-17.0) g/dL Hct 25.4 L (39.6-50.0) % RDW (11.5-14.5) % MPV (9.5-12.2) fL Carbon Dioxide (20.0-27.5) mmol/L Anion Gap (10.00-18.00) mmol/L BUN (9.0-27.0) mg/dL Creatinine (0.6-1.5) mg/dL BUN/Creatinine Ratio (12.00-20.00) Ratio POC Glucose (mg/dL) (70-110) mg/dL Calcium (8.7-10.3) mg/dL Assessment and Plan Assessment: Degenerative disc disease Central spinal cord stenosis at L2-L5 Bilateral lower extremity weakness Plan: Plan: Plan for surgical intervention for L2-S1 laminectomy with decompression and possible fusion pending. Appreciate medical, pulmonology, cardiology/vascular management Pain management - Tylenol; tramadol GI prophylaxis - Maalox; protonix - Maintain araujo catheter PT/OT - weightbearing as tolerated with walker, maintain PRAFO boots when in bed. *I reviewed and discussed this case with my attending Dr. Newton, whom has reviewed this chart and films and is in agreement with assessment and plan of care as outlined above. I have personally seen and examined the patient, performed the documentation and the assessment and plan as written. Number of minutes spent on the visit: 20m.
[2022-03-19 10:47] LABS: Glucose,Whole Blood 144 mg/dL (70-110)
--- NOTE | 2022-03-19 12:03 | P.PN ---
Subjective Patient is seen for follow-up for hyponatremia., Hypervolemic and currently being diuresed. Serum sodium staying at about 1:30 to 135. Patient received Samsca and sodium is improved to 135 again No complaints today. Working with physical therapy. Objective - Vital Signs Vital signs: Vital Signs Temp 98.1 F 03/19/22 07:34 Pulse 87 03/19/22 07:34 Resp 17 03/19/22 07:34 BP 104/65 03/19/22 07:34 Pulse Ox 100 03/19/22 07:34 FiO2 21 03/04/22 07:22 Intake & Output 03/18/22 03/19/22 03/19/22 18:59 06:59 18:59 Intake Total 100 450 Output Total 800 1250 Balance -700 450 -1250 Intake: IV 100 Oral 450 Output: Urine 800 1250 Other: Voiding Method Indwelling Catheter Indwelling Catheter Indwelling Catheter - Exam Awake, comfortable, not in any acute distress Examination of the heart S1 and S2 Examination lungs bilateral breath sounds are heard Abdomen is soft nontender Examination of lower extremity shows edema 1+ bilaterally [employer] exam grossly intact - Labs CBC & Chem 7: 03/19/22 07:56 03/18/22 06:50 Labs: Abnormal Lab Results - Last 24 Hours (Table) 03/18/22 03/18/22 03/19/22 Range/Units 16:49 20:42 06:59 RBC (4.30-5.90) m/uL Hgb (13.0-17.5) gm/dL Hct (39.0-53.0) % POC Glucose (mg/dL) 237 H 254 H 254 H (70-110) mg/dL 03/19/22 03/19/22 Range/Units 07:56 10:45 RBC 2.93 L (4.30-5.90) m/uL Hgb 8.0 L (13.0-17.5) gm/dL Hct 25.4 L (39.0-53.0) % POC Glucose (mg/dL) 144 H (70-110) mg/dL Assessment and Plan Assessment: 1. Hyponatremia. Hypervolemic, maintained on diuretics. Underlying SIADH also a possibility. Status post Samsca and improved. 2. Right adrenal mass suggestive of benign adrenal adenoma on CAT scan done 03/09/2022. Doubt hyperaldosteronism state as patient has no history of hypertension and blood pressure is fairly well controlled without any antihy pertensive meds. Cortisol level normal. 3. Metabolic alkalosis secondary to bicarb supplementation. Bicarb supplementation stopped 03/09/2022. 4. Central spinal cord stenosis. Surgery pending. 5. Anemia. Concern for GI bleed. EGD showed mild gastritis without any acute bleed. Colonoscopy tomorrow. Hemoglobin 9.1 today. Iron deficiency noted. 6. Diabetes mellitus. 7. Fluid overload improved, 8. UTI with urine culture growing enterococcus cloacae and Betty Plan: Continue to monitor serum sodium Maintain fluid restriction Samsca as needed Check labs in a.m.
[2022-03-19] MEDS: LACTATED RINGERS 1,000 ML IV SCH ×2 (12:46)
--- NOTE | 2022-03-19 14:42 | P.PN ---
Subjective Progress Note Date: 03/19/22 CHIEF COMPLAINT: Anemia and black stool HISTORY OF PRESENT ILLNESS: Patient status post colonoscopy with digital disimpaction. Results showed mild diverticulosis and fecal impaction. Sigmoid colon did reveal mild diverticular changes. Patient had EGD completed on 03/09/22 showing mild antral gastritis, mild esophagitis and no evidence of any upper GI bleed. Patient has no new complaints. He is tolerating diet. Patient does not ambulate. Afebrile. WBC is 8.3 hemoglobin stable 8.0 platelets 355 Patient seen and examined with Dr. al PHYSICAL EXAM: VITAL SIGNS: Reviewed. GENERAL: Well-developed in no acute distress. HEENT: No sclera icterus. Extraocular movements grossly intact. Moist buccal mucosa. Head is atraumatic, normocephalic. ABDOMEN: Soft. Nondistended. NEUROLOGIC: Alert and oriented. Cranial nerves II through XII grossly intact. ASSESSMENT: 1. Anemia with black tarry stool 2. Fecal impaction status post disimpaction with evidence of melanotic stools 3. Incidental finding of hydropic gallbladder with cholelithiasis 4. Central spinal cord stenosis at L4 to L5 with bilateral lower extremity weakness 5. Sacral decubitus ulcer PLAN: -Patient is stable for discharge from surgical standpoint when medically cleared -No plans for debridement for sacral decubitus ulcer -Continue offloading -Continue protective dressing to sacral decubitus ulcer -Antibiotics per infectious disease Physician Office Manager Receptionist note has been reviewed by physician. Signing provider agrees with the documented findings, assessment, and plan of care. Objective - Vital Signs Vital signs: Vital Signs Temp 99.2 F 03/19/22 13:35 Pulse 79 03/19/22 13:35 Resp 18 03/19/22 13:35 BP 127/90 03/19/22 13:35 Pulse Ox 100 03/19/22 13:35 FiO2 21 03/04/22 07:22 Intake & Output 03/18/22 03/19/22 03/19/22 18:59 06:59 18:59 Intake Total 100 450 Output Total 800 1900 Balance -700 450 -1900 Weight 76.3 kg Intake: IV 100 Oral 450 Output: Urine 800 1900 Other: Voiding Method Indwelling Catheter Indwelling Catheter Indwelling Catheter - Labs CBC & Chem 7: 03/19/22 07:56 03/18/22 06:50 Labs: Abnormal Lab Results - Last 24 Hours (Table) 03/18/22 03/18/22 03/19/22 Range/Units 16:49 20:42 06:59 RBC (4.30-5.90) m/uL Hgb (13.0-17.5) gm/dL Hct (39.0-53.0) % POC Glucose (mg/dL) 237 H 254 H 254 H (70-110) mg/dL 03/19/22 03/19/22 Range/Units 07:56 10:45 RBC 2.93 L (4.30-5.90) m/uL Hgb 8.0 L (13.0-17.5) gm/dL Hct 25.4 L (39.0-53.0) % POC Glucose (mg/dL) 144 H (70-110) mg/dL
--- NOTE | 2022-03-19 15:56 | P.PN ---
Subjective Progress Note Date: 03/18/22 Principal diagnosis: Enterobacter catheter associated UTI Patient is a 62 year old male with initial presentation hospital 10 07/30/2003 palpitation and shortness of breath patient did have a low-grade fever and a positive urine culture with Enterobacter. Patient has developed significant constipation and possible GI bleed status post disimpaction on 03/11/2022, patient has developed unstageable pressure ulcer to the sacral area apparently started last week as a deep tissue injury on 03/11/2022 per the nursing staff, the patient colonoscopy was canceled because of poor bowel prep, the patient did have a colonoscopy completed today on 03/18/2022 with evidence of mild aortic necrosis and fecal impaction On today's evaluation that is 03/18/2022, the patient continues to be afebrile , the patient is breathing comfortably on room air, the patient denies chest pain shortness of breath or cough, the patient denies nausea no vomiting, no abdominal pain no diarrhea, Objective - Vital Signs Vital signs: Vital Signs Temp 98.8 F 03/19/22 02:00 Pulse 75 03/19/22 02:00 Resp 16 03/19/22 02:00 BP 119/68 03/19/22 02:00 Pulse Ox 99 03/19/22 02:00 FiO2 21 03/04/22 07:22 Intake & Output 03/18/22 03/19/22 03/19/22 18:59 06:59 18:59 Intake Total 100 450 Output Total 800 Balance -700 450 Intake: IV 100 Oral 450 Output: Urine 800 Other: Voiding Method Indwelling Catheter Indwelling Catheter - Exam GENERAL DESCRIPTION: A middle-aged male lying in bed in no distress RESPIRATORY SYSTEM: Unlabored breathing , decreased breath sounds at bases HEART: S1 S2 regular rate and rhythm , ABDOMEN: Soft , no tenderness Patient with unstageable sacral pressure ulcer with necrotic tissue no surrounding redness or drainage EXTREMITIES: No edema feet - Labs CBC & Chem 7: 03/19/22 07:56 03/18/22 06:50 Labs: Abnormal Lab Results - Last 24 Hours (Table) 03/18/22 03/18/22 03/18/22 Range/Units 06:50 06:50 11:38 RBC 2.73 L (4.40-5.60) X 10*6/uL Hgb 7.7 L (13.0-17.0) g/dL Hct 23.5 L (39.6-50.0) % RDW 14.7 H (11.5-14.5) % MPV 8.5 L (9.5-12.2) fL Carbon Dioxide 28.0 H (20.0-27.5) mmol/L Anion Gap 7.00 L (10.00-18.00) mmol/L BUN 2.9 L (9.0-27.0) mg/dL Creatinine 0.4 L (0.6-1.5) mg/dL BUN/Creatinine Ratio 7.25 L (12.00-20.00) Ratio POC Glucose (mg/dL) 116 H (70-110) mg/dL Calcium 7.7 L (8.7-10.3) mg/dL 03/18/22 03/18/22 03/19/22 Range/Units 16:49 20:42 06:59 RBC (4.40-5.60) X 10*6/uL Hgb (13.0-17.0) g/dL Hct (39.6-50.0) % RDW (11.5-14.5) % MPV (9.5-12.2) fL Carbon Dioxide (20.0-27.5) mmol/L Anion Gap (10.00-18.00) mmol/L BUN (9.0-27.0) mg/dL Creatinine (0.6-1.5) mg/dL BUN/Creatinine Ratio (12.00-20.00) Ratio POC Glucose (mg/dL) 237 H 254 H 254 H (70-110) mg/dL Calcium (8.7-10.3) mg/dL Assessment and Plan (1) Catheter-associated urinary tract infection Current Visit: Yes Status: Acute Code(s): T83.511A - I/I REACT D/T INDWELLING URETHRAL CATHETER, INIT; N39.0 - URINARY TRACT INFECTION, SITE NOT SPECIFIED SNOMED Code(s): 524900769 Plan: 1patient with a low-grade fever positive UA and urinary symptoms retention requiring Zee catheter placement concerning for a symptomatic UTI urine has been finalized with Enterobacter and this patient is currently on amiodarone using quinolones can lead to QT prolongation patient received adequate antibiotic therapy will monitor the patient closely off antibiotics, so far doing well 2 the patient repeat culture with vashti and diflucan cannot be added because of amiodarone , the patient still have a positive UA however the patient is afebrile white count is normal we will monitor the patient closely without any antifungal treatment 3-Pt with unstageable sacral pressure ulcer, patient is currently being treated with medihoney and keep the area off the pressure, will benefit from surgical debridement Time with Patient: Less than 30
--- NOTE | 2022-03-19 15:58 | P.PN ---
Subjective Progress Note Date: 03/19/22 Principal diagnosis: Enterobacter catheter associated UTI Patient is a 62 year old male with initial presentation hospital 10 07/30/2003 palpitation and shortness of breath patient did have a low-grade fever and a positive urine culture with Enterobacter. Patient has developed significant constipation and possible GI bleed status post disimpaction on 03/11/2022, patient has developed unstageable pressure ulcer to the sacral area apparently started last week as a deep tissue injury on 03/11/2022 per the nursing staff, the patient colonoscopy was canceled because of poor bowel prep, the patient did have a colonoscopy completed today on 03/18/2022 with evidence of mild aortic necrosis and fecal impaction On today's evaluation that is 03/19/2022, the patient remains to be afebrile , the patient is breathing comfortably on room air, the patient denies chest pain shortness of breath or cough, the patient denies nausea no vomiting, no abdominal pain, no new symptoms Objective - Vital Signs Vital signs: Vital Signs Temp 98.1 F 03/19/22 07:34 Pulse 86 03/19/22 12:26 Resp 17 03/19/22 07:34 BP 104/65 03/19/22 07:34 Pulse Ox 100 03/19/22 07:34 FiO2 21 03/04/22 07:22 Intake & Output 03/18/22 03/19/22 03/19/22 18:59 06:59 18:59 Intake Total 100 450 Output Total 800 1900 Balance -700 450 -1900 Weight 76.3 kg Intake: IV 100 Oral 450 Output: Urine 800 1900 Other: Voiding Method Indwelling Catheter Indwelling Catheter Indwelling Catheter - Exam GENERAL DESCRIPTION: A middle-aged male lying in bed in no distress RESPIRATORY SYSTEM: Unlabored breathing , decreased breath sounds at bases HEART: S1 S2 regular rate and rhythm , ABDOMEN: Soft , no tenderness Patient with unstageable sacral pressure ulcer with necrotic tissue, with no significant surrounding redness or drainage EXTREMITIES: No edema feet - Labs CBC & Chem 7: 03/19/22 07:56 03/18/22 06:50 Labs: Abnormal Lab Results - Last 24 Hours (Table) 03/18/22 03/18/22 03/19/22 Range/Units 16:49 20:42 06:59 RBC (4.30-5.90) m/uL Hgb (13.0-17.5) gm/dL Hct (39.0-53.0) % POC Glucose (mg/dL) 237 H 254 H 254 H (70-110) mg/dL 03/19/22 03/19/22 Range/Units 07:56 10:45 RBC 2.93 L (4.30-5.90) m/uL Hgb 8.0 L (13.0-17.5) gm/dL Hct 25.4 L (39.0-53.0) % POC Glucose (mg/dL) 144 H (70-110) mg/dL Assessment and Plan (1) Catheter-associated urinary tract infection Current Visit: Yes Status: Acute Code(s): T83.511A - I/I REACT D/T INDWELLING URETHRAL CATHETER, INIT; N39.0 - URINARY TRACT INFECTION, SITE NOT SPECIFIED SNOMED Code(s): 420000488 Plan: 1patient with a low-grade fever positive UA and urinary symptoms retention requiring Zee catheter placement concerning for a symptomatic UTI urine has been finalized with Enterobacter and this patient is currently on amiodarone using quinolones can lead to QT prolongation patient received adequate antibiotic therapy will monitor the patient closely off antibiotics, so far doing well 2 the patient repeat culture with vashti and diflucan cannot be added because of amiodarone , the patient still have a positive UA however the patient is afebrile white count is normal we will monitor the patient closely without any antifungal treatment 3-Pt with unstageable sacral pressure ulcer, patient is currently being treated with medihoney, which associated with the surgeon for possible surgical debridement recommended to keep the wound dry and off the pressure and no debridement at this point Time with Patient: Less than 30
[2022-03-19 16:46] LABS: Glucose,Whole Blood 159 mg/dL (70-110)
--- NOTE | 2022-03-19 17:15 | P.PN ---
Progress Note - Text Progress Note Date: 03/19/22 Chief Complaint: Low back pain This is a 62-year-old patient, follows with Dr. Mendez. Chronic stable medical conditions include ADHD, herniated disc lower back, smoker. Patient's son at the bedside. Patient yesterday took his medication was going to the bathroom and the son noticed that he was feeling looking weak. He became less responsive. Never passed out. Shaky. No fever or chills reported. EMS was called out. Patient is found to be in atrial fibrillation with rapid ventricular rate. In the ER started on IV heparin, given adenosine, later put on IV Cardizem. Also found to be in DKA. Put on insulin drip. Potassium was very low NG tube had to be pacemaker placement. Tired. Most of the history of pain medicine at the bedside. Patient rather tired and lethargic. Admitted with new onset of atrial fibrillation uncontrolled, diabetic ketoacidosis, acute metabolic encephalopathy, severe hypokalemia. Started on Cardizem drip, IV heparin, insulin drip. NG tube was placed for potassium replacement. March 03: ICU: Patient went back into sinus rhythm. Did have 3-4 minutes burst of A. fib with rapid ventricular rate and rhythm back in sinus rhythm. IV heparin is being changed over to subcu Lovenox 70 mg every 12. Insulin drip is discontinued. Put on Levemir 10 units. NG tube in place. Potassium being replaced. Still patient is rather lethargic. We'll get a computed tomography scan of the brain. And EEG. March 04: ICU: Remains in sinus rhythm. Has been off Cardizem drip. Slightly more awake but still lethargic. Attempted to answer questions. Potassium down to 2.7. Potassium being replaced. At magnesium. By mouth amiodarone. On IV ceftriaxone for possible UTI. Sinus rhythm. Stop Catapres increase Lopressor to 100 mg twice a day. Check ammonia level. Phosphorus being replaced. Consult neurology. CT brain negative for stroke. EEG results pending. March 05: ICU. Laying in bed. Weak. EEG showed encephalopathy. Weakness in all the limbs. Just ordered able to lift his arms. [place] to be from electrolyte abnormalities. Able to answer questions slowly. Did tolerate some ice chips. Nurse will try to feed the patient. Lethargic but more awake. PTOT consulted. Unstageable bluish decolorization of the sacrum and heels. NG tube discontinued. IV fluids. 03/06/2020: Patient remains in the ICU improving slowly and gradually. Still had fever yesterday of 100.7, no more fever today. Other vitals are stable. Patient remains on ceftriaxone and he is been treated for UTI with Enterobacter. He still has fever as of yesterday therefore we will check renal ultrasound. Corcalcitonin 1.03, His altered mentation most likely is secondary to metabolic/toxic encephalopathy and UTI, neurologist on the case and he ordered MRI of the thoracolumbar spine to rule out spinal stenosis, results showing multilevel lumbar spinal stenosis but is mild and there is no spinal stenosis of the thoracic spine. Cardiology the case for new-onset A. fib, currently on Lovenox and amiodarone and rate controlled. Distal on IV fluids under lactate 125 Ulcers on Protonix 40 mg oral twice a day and Lovenox 70 mg twice daily. Glucose controlled on Levemir 14 units. His hemoglobin A1c is 12.9% and his DKA on admission resolved 03/07/2022 Patient still feels generally weak and lethargic. However he has good appetite. He denies chest pain or abdominal pain. No dyspnea. He looks comfortable in bed. He had 1 small bowel movement, no diarrhea. Zee catheter in place with yellow urine. Patient procalcitonin significantly improved down to 0.15, however his culture showed Enterobacter resistant to ceftriaxone. Patient currently on oral Levaquin. We going to consult infectious disease team. WBC is 11.3. Sodium 129. Patient fever on admission has subsided since then. Neurologist on the case and recommended EMG and nerve conduction study as an outpatient. Patient currently on Lovenox 70 mg twice a day, Levemir insulin 14 units and amiodarone. Also he is on oral Protonix twice daily and IV fluids under lactate at 125 Patient tolerates some diet, lower rate elected down to 75 mL/h renal ultrasound order, follow-up results 03/08/2022 Patient is seen and evaluated in follow-up this morning with multiple medical consultations including neurology, pulmonary, infectious disease, orthopedics following. Plan is for possible lumbar decompression sometime this week. Have consulted general surgery as per nursing report patient had a large dark tarry stool this morning. Hemoglobin is stable at 9.7. Patient's sodium is 129 with a potassium of 3.7 current creatinine is stable at 0.42. Blood sugars have been elevated and will continue current regimen. WBC remains elevated and patient is maintained on cefepime and will continue. Oral intake continues to be fair to poor and patient continues to report back pain. Patient has been febrile. Patient denies chest pain or shortness of breath. Patient is extremely lethargic with generalized edema noted throughout. Will consult nephrology for hyponatremia 03/09/2022 Patient is seen and evaluated in follow-up this morning. Multiple medical consultations following including orthopedics, general surgery, nephrology, pulmonary, and infectious disease. Plan was for tentative decompression surgery with orthopedics although sodium continues to be low and nursing reported dark tarry stools and is being evaluated with EGD/colonoscopy that is to be done on . Patient will start bowel prep tomorrow and will monitor closely of labs. Abdomen ultrasound was ordered as well and patient is continue with indwelling Zee catheter. Patient currently maintained on antibiotics and will continue. Patient is maintained on clear liquids and tolerating appears more awake and alert than yesterday. Patient continues to be weak and denies chest pain or shortness of breath. Patient labs currently pending and nephrology is following for hyponatremia and was started on Lasix. 03/10/2022: I resumed care of the patient today Tolerating clear liquids. Tired. Pending surgery-Dr. Newton . Back pain controlled. Patient's had black starry stools. For colonoscopy per Dr. Pabon. 03/11/2022: Patient had soft brown stool today. Some abdominal discomfort. Pending colonoscopy today. Received bowel preparation. Patient received 1 dose of Samsca yesterday. Also IV Ferrlecit. 03/12/2022. Colonoscopic could not be done yesterday because of poor bowel preparation. Dark stool was encountered during start of colonoscopy. Patient back on clear liquids. Now rescheduled for Tuesday. 03/13/2022: Patient had bowel preparation done tomorrow for colonoscopy Tuesday. Tolerating liquid diet. 03/14/2022: On liquid diet. Getting bowel preparation for tomorrow. Otherwise stable. Discussed with patient. 03/15/2022: Complaining of mid back pain. Received bowel prep yesterday. Had 2- 3 bowel movements. Possible endoscopy today. Awaiting decision from Dr. Newton for lumbar surgery either this admission nor following some rehab 03/16/2022: wentdown for colonoscopy. Yesterday. Found to have large brown stool in the vault. Procedure canceled. Being rescheduled for . 03/17/2022: Liquid diet. Scheduled for colonoscopic . Intermittent back pain. Bowel prep for surgery. 03/18/2022: Underwent colonoscopy today. Unremarkable. Discussed with Dr. Santana from ID. Has a sacral wound. Like Dr. Pabon to debrided the same. Given that not a good idea to patient have lumbar surgery at this point. This should be postponed for later. 03/19/2022: Oral intake fair. Discussed with ID. Feels patient needs debridement. Discussed with Dr. Pabon. He feels that this point would not help. ID and Dr. Pabon will further discuss. Discussed with Dr. Newton after discussing with ID that present time not a good idea to reduce lumbar surgery this would be postponed. Told patient Active Medications Acetaminophen (Acetaminophen Tab 325 Mg Tab) 650 mg PO Q6HR PRN PRN Reason: Mild Pain or Fever > 100.5 Last Admin: 03/16/22 21:15 Dose: 650 mg Hydrocodone Bitart/Acetaminophen (Hydrocodone/Apap 7.5-325mg 1 Each Tab) 1 each PO Q6HR PRN PRN Reason: Pain Last Admin: 03/19/22 15:21 Dose: 1 each Al Hydroxide/Mg Hydroxide (Mag Hydrox/Al Hydrox/Simeth 30 Ml Cup) 15 ml PO Q6HR PRN PRN Reason: Indigestion Last Admin: 03/18/22 19:30 Dose: 15 ml Amiodarone HCl (Amiodarone 200 Mg Tab) 200 mg PO DAILY [facility] Last Admin: 03/19/22 08:20 Dose: 200 mg Dextrose/Water (Dextrose 50% Syringe 50 Ml) 25 ml IVP PER PROTOCOL PRN; Protocol PRN Reason: Hypoglycemia Last Admin: 03/11/22 16:43 Dose: 25 ml Dextrose/Water (Dextrose 50% Syringe 50 Ml) 50 ml IVP PER PROTOCOL PRN; Protocol PRN Reason: Hypoglycemia Folic Acid (Folic Acid 1 Mg Tab) 1 mg PO DAILY [facility] Last Admin: 03/19/22 08:20 Dose: 1 mg Furosemide (Furosemide 10 Mg/Ml 4 Ml Vial) 40 mg IV DAILY [facility] Last Admin: 03/19/22 08:21 Dose: 40 mg Lactated Ringer's (Lactated Ringers) 1,000 mls @ 20 mls/hr IV .Q24H [facility] Last Admin: 03/19/22 12:46 Dose: Not Given Lactated Ringer's (Lactated Ringers) 1,000 mls @ 20 mls/hr IV .Q24H [facility] Last Admin: 03/19/22 12:46 Dose: Not Given Insulin Aspart (Insulin Aspart (Novolog) 100 Unit/Ml Vial) 0 unit SQ ACHS [facility]; Protocol Last Admin: 03/19/22 16:50 Dose: 2 unit Insulin Detemir (Insulin Detemir (Levemir) 100 Unit/Ml Syr) 14 unit SQ DAILY@ 0700 [facility] Last Admin: 03/19/22 08:18 Dose: 14 unit Lidocaine HCl (Lidocaine 1% (10mg/Ml) For Iv Start) 0.1 ml INTRADERMA PER PROTOCOL PRN PRN Reason: IV Start Metoprolol Tartrate (Metoprolol Tartrate 50 Mg Tab) 100 mg PO BID [facility] Last Admin: 03/19/22 08:20 Dose: 100 mg Miscellaneous Information (Potassium Replacement Protocol 1 Each Misc) 1 each MISCELLANE DAILY PRN; Protocol PRN Reason: Per Protocol Naloxone HCl (Naloxone 0.4 Mg/Ml 1 Ml Vial) 0.2 mg IV Q2M PRN PRN Reason: Opioid Reversal Nicotine (Nicotine 21mg/24hr Patch) 1 patch TRANSDERM DAILY [facility] Last Admin: 03/19/22 08:20 Dose: 1 patch Ondansetron HCl (Ondansetron 4 Mg/2 Ml Vial) 4 mg IVP Q8HR PRN PRN Reason: Nausea And Vomiting Pantoprazole Sodium (Pantoprazole 40 Mg/10 Ml Vial) 40 mg IVP BID [facility] Last Admin: 03/19/22 08:17 Dose: 40 mg Tramadol HCl (Tramadol 50 Mg Tab) 50 mg PO QID PRN PRN Reason: Pain Last Admin: 03/13/22 01:15 Dose: 50 mg Past medical history to include: Diabetes, possible ADHD, chronic low back pain, herniated disc, Social history: Son lives with the patient. 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 Smokes about a pack a day. Alcohol occasionally. Physical examination: VITAL SIGNS: 99.2, 79, 18, 127.90, 100% room air GENERAL: Awake, laying in bed EYES: Pupils equal. Conjunctiva normal. HEENT: External appearance of nose and ears normal, oral cavity mucous membranes moist NECK: JVD not raised; masses not palpable. HEART: Heart sounds normal; no edema. LUNGS: Respiratory rate normal; decreased breath sounds. ABDOMEN: Soft, nontender, liver spleen not palpable, no masses palpable. Unstageble Sacral pressure ulcer, PSYCH: Answering questions appropriately INVESTIGATIONS, reviewed in the clinical context: March 19: Hemoglobin 8 March 18: WBC 7.9 hemoglobin 7.7 platelets 304 potassium 4.1 creatinine 0.4 Colonoscopy: Unremarkable March 17: CBC 8.4 hemoglobin 8.9 sodium 135 potassium 4.6 BUN 3 creatinine 0.5 March 10: WBC 11.7 hemoglobin 9.1 platelets 519 sodium 127 potassium 3.9 BUN 6 creatinine 0.51 serum osmolality 271 HbA1c: 12.9 Computed tomography scan brain: No acute processes reported March 03: Sodium 136 potassium 3 BUN 22 creatinine 0.50 albumin 2.2 WBC 36.7 hemoglobin 14.7 platelets 470 potassium 2.7 sodium 128 bicarb 9 BUN 25 crit 0.89 blood glucose 564 UA positive for ketone 4+, leukoesterase negative for nitrite Urine drug screen: Negative Serum acetone positive EKG tracing personally reviewed by me-heart rate 171, ST segment depression Chest x-ray film personally reviewed by me-prominent pulmonary artery. Elevated right diaphragm. 2-D echocardiogram: EF 55-60%. Assessment and plan: -Paroxysmal atrial fibrillation with a rapid ventricular rate, back in sinus rhythm Lopressor 100 mg twice a day. Oral amiodarone -IV heparin -discontinued Follow PTT -Diabetic ketoacidosis: Resolved -Black starry stools/acute GI bleed..: Resolved EGD showed mild gastritis and esophagitis. Coloscopy -unremarkable -Unstageable sacral, pressure ulcer, POA [address] Pabon -Diabetes mellitus type 2, uncontrolled with hyperglycemia Levemir 14 units subcu daily. Follow Accu-Cheks -Acute metabolic encephalopathy, multifactorial, better Computed tomography scan of brain unremarkable.. EEG-encephalopathy. No seizure.. Follow with Neurology -Severe hypokalemia: Better -Hypophosphatemia: Better Replace phosphorus -COPD in a current smoker Bronchodilators as needed -Chronic nicotine dependence, cigarette smoker Nicotine patch -Possibly SIADH . Received IV Samsca. -L2 S1 laminectomy and decompression, with lower extremity weakness for central spinal cord stenosis. Surgery Per Dr. Newton: To be postponed, outpatient given the sacral ulcer that may be debrided. ID Dr. Gomez will decide whether sacral decubitus to be debrided. Lumbar surgery to be done as an outpatient. Other medications to continue. Total time spent today about 40 minutes including about 25 minutes of discussion.
[2022-03-19 20:42] LABS: Glucose,Whole Blood 215 mg/dL (70-110)
[2022-03-20] MEDS: HYDROcodone/APAP 7.5-325MG 1 EACH TAB PO PRN ×3 (03:35→16:33)
[2022-03-20 07:11] LABS: Glucose,Whole Blood 150 mg/dL (70-110)
[2022-03-20] MEDS: INSULIN ASPART (NovoLOG) 100 UNIT/ML VIAL SQ SCH ×4 (08:11→21:08)
[2022-03-20] MEDS: LACTATED RINGERS 1,000 ML IV SCH ×2 (08:11→08:29)
[2022-03-20] MEDS: METOPROLOL TARTRATE 50 MG TAB PO SCH ×2 (08:30→21:08)
[2022-03-20] MEDS: FOLIC ACID 1 MG TAB PO SCH (08:30)
[2022-03-20] MEDS: AMIODARONE 200 MG TAB PO SCH (08:30)
[2022-03-20] MEDS: PANTOPRAZOLE 40 MG/10 ML VIAL IVP SCH ×2 (08:30→21:08)
[2022-03-20] MEDS: NICOTINE 21MG/24HR PATCH TRANSDERM SCH (08:30)
[2022-03-20] MEDS: INSULIN DETEMIR (LEVEMIR) 100 UNIT/ML SYR SQ SCH (08:42)
[2022-03-20] MEDS: MAG HYDROX/AL HYDROX/SIMETH 30 ML CUP PO PRN (08:44)
[2022-03-20] MEDS: FUROSEMIDE 10 MG/ML 4 ML VIAL IV SCH (08:45)
--- NOTE | 2022-03-20 08:51 | P.PN ---
Subjective Progress Note Date: 03/20/22 Principal diagnosis: Degenerative disc disease Central spinal cord stenosis at L2-L5 Bilateral lower extremity weakness Patient evaluated today at bedside, he is resting in his hospital bed. Patient continues to have essentially no motion of the right lower extremity, he is able to activate his hip flexor slightly today at bedside. There is been discussion with the sacral wound with infectious disease and general surgery. Due to the area of concern with the wound, and his other medical comorbidities we have held off on orthopedic spine surgery at this time. Objective - Vital Signs Vital signs: Vital Signs Temp 99.5 F 03/20/22 08:00 Pulse 81 03/20/22 08:00 Resp 16 03/20/22 08:00 BP 109/65 03/20/22 08:00 Pulse Ox 100 03/20/22 08:00 FiO2 21 03/04/22 07:22 Intake & Output 03/19/22 03/20/22 03/20/22 18:59 06:59 18:59 Intake Total 480 Output Total 2450 1969 Balance -2450 -1490 Weight 76.3 kg Intake: Oral 480 Output: Urine 2450 1969 Uretheral (Zee) 1969 Other: Voiding Method Indwelling Catheter - Exam Gen: AOx3, NAD VSS stable at this time Integument: Bandages present over the sacral wound ROM: Full range of motion in all major muscle groups of bilateral upper extremities, range of motion is intact of the left lower extremity, absent range of motion in the right lower extremity Sensory Exam: Senory exam to light touch is intact C5-T1 Senosry exam to light touch is intact L2-S1 Motor: 55 strength appreciated in the bilateral upper extremities with shoulder josette vation, shoulder abduction, elbow extension, elbow flexion, wrist extension, wrist flexion 3+-5 strength appreciated in the left lower extremity with hip flexion, knee extension, knee flexion, plantar flexion, dorsiflexion, EHL, FHL Motor not appreciated in the right lower extremity Reflexes: 2/4 in all UE and LE Negative Pb's, Babinski, clonus bilaterally - Labs CBC & Chem 7: 03/19/22 07:56 03/18/22 06:50 Labs: Abnormal Lab Results - Last 24 Hours (Table) 03/19/22 03/19/22 03/19/22 Range/Units 07:56 10:45 16:45 RBC 2.93 L (4.30-5.90) m/uL Hgb 8.0 L (13.0-17.5) gm/dL Hct 25.4 L (39.0-53.0) % POC Glucose (mg/dL) 144 H 159 H (70-110) mg/dL 03/19/22 03/20/22 Range/Units 20:35 07:10 RBC (4.30-5.90) m/uL Hgb (13.0-17.5) gm/dL Hct (39.0-53.0) % POC Glucose (mg/dL) 215 H 150 H (70-110) mg/dL Assessment and Plan Assessment: Degenerative disc disease Central spinal cord stenosis at L2-L5 Bilateral lower extremity weakness Sacral wound Plan: Orthopedic spine intervention has been placed on hold due to patient's other medical comorbidities. Dr. Newton and has been in contact with the other providers regarding this We will continue to evaluate patient and monitor Contact our service with any questions Time with Patient: Less than 30
--- NOTE | 2022-03-20 10:11 | P.PN ---
Subjective Patient is seen in follow-up for hyponatremia. Sodium level 135 as of 03/18/2022. Receiving IV Lasix. Has also received Samsca this admission. N onoliguric. Has a Zee catheter. No active complaints. Vital signs are stable. General: Awake. No acute distress. HEENT: Head exam is unremarkable. LUNGS: Breath sounds decreased. HEART: Rate and Rhythm are regular. ABDOMEN: Soft, no distention. EXTREMITITES: Trace edema. Objective - Vital Signs Vital signs: Vital Signs Temp 99.5 F 03/20/22 08:00 Pulse 81 03/20/22 08:00 Resp 16 03/20/22 08:00 BP 109/65 03/20/22 08:00 Pulse Ox 100 03/20/22 08:00 FiO2 21 03/04/22 07:22 Intake & Output 03/19/22 03/20/22 03/20/22 18:59 06:59 18:59 Intake Total 480 Output Total 2450 1969 Balance -2450 -1490 Weight 76.3 kg Intake: Oral 480 Output: Urine 2450 1969 Uretheral (Zee) 1969 Other: Voiding Method Indwelling Catheter - Labs CBC & Chem 7: 03/19/22 07:56 03/18/22 06:50 Labs: Abnormal Lab Results - Last 24 Hours (Table) 03/19/22 03/19/22 03/19/22 Range/Units 10:45 16:45 20:35 POC Glucose (mg/dL) 144 H 159 H 215 H (70-110) mg/dL 03/20/22 Range/Units 07:10 POC Glucose (mg/dL) 150 H (70-110) mg/dL Assessment and Plan Plan: Assessment: 1. Hyponatremia. Hypervolemic. Sodium level 135 dated 03/18/2022. Also component of poor solute intake. Urine sodium low at 24 and urine osmolality low at 71. TSH normal. Cortisol level was not low. Currently on IV Lasix. Has also received Samsca this admission. 2. Right adrenal mass suggestive of benign adrenal adenoma on CAT scan done 03/2022. Doubt hyperaldosteronism state as patient has no history of hypertension and blood pressure is fairly well controlled without any antihypertensive meds. Cortisol level normal. Serum aldosterone 5.1. Renin less than 2.1. Plasma metanephrines negative. 3. Metabolic alkalosis secondary to bicarb supplementation and diuresis. Bicarb supplementation stopped 03/09/2022. Stable. 4. Central spinal cord stenosis. Surgery to be done outpatient. 5. Anemia. Concern for GI bleed. EGD showed mild gastritis without any acute bleed. Colonoscopy showed moderate diverticulosis. Hemoglobin 8.0 yesterday. Iron deficiency noted. Status post IV iron. 6. Diabetes mellitus. 7. Fluid overload. Improved with diuresis. 8. Hypokalemia from diuresis. Replace. Better. 9. UTI. Urine culture positive for Enterobacter and Betty. s/p antibiotics. Plan: Maintain IV Lasix. Blood sugar control. Will use Samsca as needed. Repeat labs in the morning.
[2022-03-20 11:49] LABS: Glucose,Whole Blood 398 mg/dL (70-110)
[2022-03-20] MEDS: DOCUSATE 100 MG CAP PO SCH ×2 (12:17→21:08)
--- NOTE | 2022-03-20 16:12 | P.PN ---
Subjective Progress Note Date: 03/20/22 CHIEF COMPLAINT: GI bleed HISTORY OF PRESENT ILLNESS: The patient is a 62-year-old male being followed due to GI bleed and anemia. He has fecal impaction with recent disimpaction. He is resting comfortably. No reports of moderate GI bleed. ROS: No reports of nausea and vomiting. No fevers or chills. No new chest pain. PHYSICAL EXAM: VITAL SIGNS: Reviewed CONSTITUTIONAL: Well developed and in no acute distress. EYES: Conjuctivae without sclera icterus. Extraocular movements grossly intact. HEAD, EARS, NOSE, THROAT: Moist buccal mucosa. Head is atraumatic, normocephalic. Hears conversational speech. No nasal drainage. RESPIRATORY: Non-labored respirations and equal bilateral excursions. CARDIOVASCULAR: Palpable 2+ radial pulses. ABDOMEN: No peritonitis MUSCULOSKELETAL: No gross deformity of the lower extremities noted. No clubbing. No cyanosis. SKIN: Good skin turgor. Well perfused. NEUROLOGIC: Cranial nerves II through XII grossly intact. No focal or lateralizing signs. PSYCH: Appropriate affect. Alert and oriented to person, place and time. CLINICAL LABS: Reviewed. Blood sugar glucose elevated 215 to 398. Hemoglobin 7.7-8.0. ASSESSMENT: 1. GI bleed 2. Anemia 3. Hyperglycemia with poorly controlled diabetes PLAN: 1. Monitor hemoglobin 2. Pending transfer to rehab facility Objective - Vital Signs Vital signs: Vital Signs Temp 99.5 F 03/20/22 08:00 Pulse 81 03/20/22 08:00 Resp 16 03/20/22 08:00 BP 109/65 03/20/22 08:00 Pulse Ox 100 03/20/22 08:00 FiO2 21 03/04/22 07:22 Intake & Output 03/19/22 03/20/22 03/20/22 18:59 06:59 18:59 Intake Total 480 Output Total 2450 1969 Balance -2450 -1490 Weight 76.3 kg Intake: Oral 480 Output: Urine 2450 1969 Uretheral (Zee) 1969 Other: Voiding Method Indwelling Catheter - Labs CBC & Chem 7: 03/19/22 07:56 03/18/22 06:50 Labs: Abnormal Lab Results - Last 24 Hours (Table) 03/19/22 03/19/22 03/20/22 Range/Units 16:45 20:35 07:10 POC Glucose (mg/dL) 159 H 215 H 150 H (70-110) mg/dL 03/20/22 Range/Units 11:47 POC Glucose (mg/dL) 398 H (70-110) mg/dL
[2022-03-20 16:40] LABS: Glucose,Whole Blood 251 mg/dL (70-110)
--- NOTE | 2022-03-20 17:55 | XR ---
EXAMINATION TYPE: XR chest 1V portable DATE OF EXAM: 03/20/2022 COMPARISON: 03/03/2022 HISTORY: Pneumonia TECHNIQUE: FINDINGS: Heart and mediastinum are normal. Lungs are clear. Diaphragm is normal. There are small abbey cified granuloma in the right mid lung. IMPRESSION: No active cardiopulmonary disease. Normal heart. No change..
[2022-03-20 19:24] LABS: Appearance,Urine Turbid (Clear); Bilirubin,Urine Negative (Negative); Blood,Urine Small (Negative); Budding Yeast,Urine Many /hpf; Color,Urine Yellow; Glucose,Urine (UA) 2+ (Negative); Ketones,Urine Negative (Negative); Leukocyte Esterase,Urine Large (Negative); Mucus,Urine Moderate /hpf; Nitrite,Urine Negative (Negative); PH, Urine 7.5 (5.0-8.0); Protein,Urine 2+ (Negative); RBC,Urine >182 /hpf (0-5); Specific Gravity,Urine 1.019 (1.001-1.035); Urobilinogen,Urine <2.0 mg/dL (<2.0); WBC,Urine >182 /hpf (0-5)
[2022-03-20 21:02] LABS: Glucose,Whole Blood 272 mg/dL (70-110)
[2022-03-20 21:23] LABS: Glucose,Whole Blood 280 mg/dL (70-110)
[2022-03-21] MEDS: HYDROcodone/APAP 7.5-325MG 1 EACH TAB PO PRN ×4 (00:07→22:19)
[2022-03-21 06:55] LABS: Glucose,Whole Blood 202 mg/dL (70-110)
[2022-03-21] MEDS: INSULIN DETEMIR (LEVEMIR) 100 UNIT/ML SYR SQ SCH (07:01)
[2022-03-21] MEDS: INSULIN ASPART (NovoLOG) 100 UNIT/ML VIAL SQ SCH ×4 (08:42→22:18)
[2022-03-21] MEDS: NICOTINE 21MG/24HR PATCH TRANSDERM SCH (08:44)
[2022-03-21] MEDS: SENNOSIDES 8.6 MG TAB PO SCH (08:45)
[2022-03-21] MEDS: AMIODARONE 200 MG TAB PO SCH (08:45)
[2022-03-21] MEDS: DOCUSATE 100 MG CAP PO SCH ×2 (08:45→22:18)
[2022-03-21] MEDS: FOLIC ACID 1 MG TAB PO SCH (08:45)
[2022-03-21] MEDS: PANTOPRAZOLE 40 MG/10 ML VIAL IVP SCH ×2 (08:46→22:18)
[2022-03-21] MEDS: METOPROLOL TARTRATE 50 MG TAB PO SCH ×2 (08:46→22:18)
[2022-03-21] MEDS: LACTATED RINGERS 1,000 ML IV SCH ×2 (08:46)
[2022-03-21] MEDS: FUROSEMIDE 40 MG TAB PO SCH (08:50)
--- NOTE | 2022-03-21 10:34 | P.PN ---
Subjective Patient is seen in follow-up for hyponatremia. Sodium level 135 as of 03/18/2022. Receiving IV Lasix. Has also received Samsca this admission. N onoliguric. Has a Zee catheter. No active complaints. Blood pressure in the lower side. Vital signs are stable. General: Awake. No acute distress. HEENT: Head exam is unremarkable. LUNGS: Breath sounds decreased. HEART: Rate and Rhythm are regular. ABDOMEN: Soft, no distention. EXTREMITITES: Trace edema. Objective - Vital Signs Vital signs: Vital Signs Temp 98.3 F 03/21/22 07:47 Pulse 71 03/21/22 07:47 Resp 20 03/21/22 07:47 BP 90/57 03/21/22 07:47 Pulse Ox 100 03/21/22 07:47 FiO2 21 03/04/22 07:22 Intake & Output 03/20/22 03/21/22 03/21/22 18:59 06:59 18:59 Intake Total 1230 300 Output Total 2200 1500 Balance -970 -1200 Intake: Oral 1230 300 Output: Urine 2200 1500 Uretheral (Zee) 2200 Other: Voiding Method Indwelling Catheter Indwelling Catheter # Bowel Movements 0 - Labs CBC & Chem 7: 03/19/22 07:56 03/18/22 06:50 Labs: Abnormal Lab Results - Last 24 Hours (Table) 03/20/22 03/20/22 03/20/22 Range/Units 11:47 16:38 17:30 POC Glucose (mg/dL) 398 H 251 H (70-110) mg/dL Urine Protein 2+ H (Negative) Urine Glucose (UA) 2+ H (Negative) Urine Blood Small H (Negative) Ur Leukocyte Esterase Large H (Negative) Urine RBC >182 H (0-5) /hpf Urine WBC >182 H (0-5) /hpf Urine WBC Clumps Many H (None) /hpf Urine Mucus Moderate H (None) /hpf Urine Yeast (Budding) Many H (None) /hpf 03/20/22 03/20/22 03/21/22 Range/Units 21:01 21:22 06:54 POC Glucose (mg/dL) 272 H 280 H 202 H (70-110) mg/dL Urine Protein (Negative) Urine Glucose (UA) (Negative) Urine Blood (Negative) Ur Leukocyte Esterase (Negative) Urine RBC (0-5) /hpf Urine WBC (0-5) /hpf Urine WBC Clumps (None) /hpf Urine Mucus (None) /hpf Urine Yeast (Budding) (None) /hpf Assessment and Plan Plan: Assessment: 1. Hyponatremia. Hypervolemic. Sodium level 135 dated 03/18/2022. Also component of poor solute intake. Urine sodium low at 24 and urine osmolality low at 71. TSH normal. Cortisol level was not low. Currently on IV Lasix. Has also received Samsca this admission. 2. Right adrenal mass suggestive of benign adrenal adenoma on CAT scan done 03/09/2022. Doubt hyperaldosteronism state as patient has no history of hypertension and blood pressure is fairly well controlled without any antihypertensive meds. Cortisol level normal. Serum aldosterone 5.1. Renin less than 2.1. Plasma metanephrines negative. 3. Metabolic alkalosis secondary to bicarb supplementation and diuresis. Bicarb supplementation stopped 03/09/2022. Stable. 4. Central spinal cord stenosis. Surgery to be done outpatient. 5. Anemia. Concern for GI bleed. EGD showed mild gastritis without any acute bleed. Colonoscopy showed moderate diverticulosis. Hemoglobin 8.0 yesterday. Iron deficiency noted. Status post IV iron. 6. Diabetes mellitus. 7. Fluid overload. Improved with diuresis. 8. Hypokalemia from diuresis. Replaced. Better. 9. UTI. Urine culture positive for Enterobacter and Betty. s/p antibiotics. Plan: Change Lasix to oral. DC Zee catheter and monitor bladder scans to make sure no retention. Blood sugar control. Will use Samsca as needed. Morning labs pending.
[2022-03-21 11:28] LABS: Basophils # (A) 0.08 X 10*3/uL (0.00-0.10); Basophils % (A) 0.8 %; Eosinophils # (A) 0.16 X 10*3/uL (0.04-0.35); Eosinophils % (A) 1.6 %; HCT 25.8 % (39.6-50.0); HGB 7.9 g/dL (13.0-17.0); Immature Grans, Automated 0.5 %; Lymphocytes # (A) 1.56 X 10*3/uL (0.90-5.00); Lymphocytes % (A) 15.4 %; MCHC 30.6 g/dL (32.0-37.0); MCV 88.1 fL (80.0-97.0); Mean Platelet Volume 8.8 fL (9.5-12.2); Monocytes # (A) 0.85 X 10*3/uL (0.20-1.00); Monocytes % (A) 8.4 %; NRBC Per 100 WBC 0 /100 WBCS (0.0-0.0); Neutrophils # (A) 7.42 X 10*3/uL (1.80-7.70); Neutrophils % (A) 73.3 %; Platelet Count 379 X 10*3/uL (140-440); RBC 2.93 X 10*6/uL (4.40-5.60); RDW 14.4 % (11.5-14.5); WBC 10.12 X 10*3/uL (4.50-10.00)
[2022-03-21 11:36] LABS: Glucose,Whole Blood 200 mg/dL (70-110)
[2022-03-21 11:54] LABS: Magnesium 1.9 mg/dL (1.5-2.4)
[2022-03-21 12:55] LABS: Albumin 2.3 g/dL (3.8-4.9); Albumin/Globulin Ratio 0.66 (1.60-3.17); Anion Gap 4.8 mmol/L (10.00-18.00); BUN/Creat Ratio 22.33 Ratio (12.00-20.00); Blood Urea Nitrogen 11.7 mg/dL (9.0-27.0); Calcium 7.9 mg/dL (8.7-10.3); Carbon Dioxide 31.7 mmol/L (20.0-27.5); Globulin 3.5 g/dL (1.6-3.3); Non-African American GFR(CKD) 113.9 (60.0-200.0); Potassium 4.6 mmol/L (3.5-5.5); Total Bilirubin 0.2 mg/dL (0.30-1.20); Total Protein 5.8 g/dL (6.2-8.2)
--- NOTE | 2022-03-21 13:28 | P.PN ---
Subjective Progress Note Date: 03/21/22 Principal diagnosis: Degenerative disc disease Central spinal cord stenosis at L2-L5 Bilateral lower extremity weakness Patient evaluated today at bedside, he is resting in his hospital bed. Patient continues to have essentially no motion of the right lower extremity. Dr. Dany rodríguez was available to talk to internal medicine regarding this case. Objective - Vital Signs Vital signs: Vital Signs Temp 98.3 F 03/21/22 07:47 Pulse 71 03/21/22 07:47 Resp 20 03/21/22 08:30 BP 90/57 03/21/22 07:47 Pulse Ox 100 03/21/22 07:47 FiO2 21 03/04/22 07:22 Intake & Output 03/20/22 03/21/22 03/21/22 18:59 06:59 18:59 Intake Total 1230 300 Output Total 2200 1800 Balance -970 -1500 Intake: Oral 1230 300 Output: Urine 2200 1800 Uretheral (Zee) 2200 Other: Voiding Method Indwelling Catheter Indwelling Catheter Indwelling Catheter # Bowel Movements 0 0 - Exam Gen: AOx3, NAD VSS stable at this time Integument: Bandages present over the sacral wound ROM: Full range of motion in all major muscle groups of bilateral upper extremities, range of motion is intact of the left lower extremity, absent range of motion in the right lower extremity Sensory Exam: Senory exam to light touch is intact C5-T1 Senosry exam to light touch is intact L2-S1 Motor: 55 strength appreciated in the bilateral upper extremities with shoulder elevation, shoulder abduction, elbow extension, elbow flexion, wrist extension, wrist flexion 3+-5 strength appreciated in the left lower extremity with hip flexion, knee extension, knee flexion, plantar flexion, dorsiflexion, EHL, FHL Motor not appreciated in the right lower extremity Reflexes: 2/4 in all UE and LE Negative Pb's, Babinski, clonus bilaterally - Labs CBC & Chem 7: 03/21/22 07:24 03/21/22 07:24 Labs: Abnormal Lab Results - Last 24 Hours (Table) 03/20/22 03/20/22 03/20/22 Range/Units 16:38 17:30 21:01 WBC (4.50-10.00) X 10*3/uL RBC (4.40-5.60) X 10*6/uL Hgb (13.0-17.0) g/dL Hct (39.6-50.0) % MCHC (32.0-37.0) g/dL MPV (9.5-12.2) fL Immature Gran # (0.00-0.04) X 10*3/uL Sodium (135-145) mmol/L Chloride (96-109) mmol/L Carbon Dioxide (20.0-27.5) mmol/L Anion Gap (10.00-18.00) mmol/L Creatinine (0.6-1.5) mg/dL BUN/Creatinine Ratio (12.00-20.00) Ratio Glucose (70-110) mg/dL POC Glucose (mg/dL) 251 H 272 H (70-110) mg/dL Calcium (8.7-10.3) mg/dL Total Bilirubin (0.30-1.20) mg/dL AST (14-35) U/L ALT (10-49) U/L Total Protein (6.2-8.2) g/dL Albumin (3.8-4.9) g/dL Globulin (1.6-3.3) g/dL Albumin/Globulin Ratio (1.60-3.17) g/dL Urine Protein 2+ H (Negative) Urine Glucose (UA) 2+ H (Negative) Urine Blood Small H (Negative) Ur Leukocyte Esterase Large H (Negative) Urine RBC >182 H (0-5) /hpf Urine WBC >182 H (0-5) /hpf Urine WBC Clumps Many H (None) /hpf Urine Mucus Moderate H (None) /hpf Urine Yeast (Budding) Many H (None) /hpf 03/20/22 03/21/22 03/21/22 Range/Units 21:22 06:54 07:24 WBC (4.50-10.00) X 10*3/uL RBC (4.40-5.60) X 10*6/uL Hgb (13.0-17.0) g/dL Hct (39.6-50.0) % MCHC (32.0-37.0) g/dL MPV (9.5-12.2) fL Immature Gran # (0.00-0.04) X 10*3/uL Sodium 131 L (135-145) mmol/L Chloride 94 L (96-109) mmol/L Carbon Dioxide 31.7 H (20.0-27.5) mmol/L Anion Gap 4.80 L (10.00-18.00) mmol/L Creatinine 0.5 L (0.6-1.5) mg/dL BUN/Creatinine Ratio 22.33 H (12.00-20.00) Ratio Glucose 178 H (70-110) mg/dL POC Glucose (mg/dL) 280 H 202 H (70-110) mg/dL Calcium 7.9 L (8.7-10.3) mg/dL Total Bilirubin 0.20 L (0.30-1.20) mg/dL AST 12 L (14-35) U/L ALT 9 L (10-49) U/L Total Protein 5.8 L (6.2-8.2) g/dL Albumin 2.3 L (3.8-4.9) g/dL Globulin 3.5 H (1.6-3.3) g/dL Albumin/Globulin Ratio 0.66 L (1.60-3.17) g/dL Urine Protein (Negative) Urine Glucose (UA) (Negative) Urine Blood (Negative) Ur Leukocyte Esterase (Negative) Urine RBC (0-5) /hpf Urine WBC (0-5) /hpf Urine WBC Clumps (None) /hpf Urine Mucus (None) /hpf Urine Yeast (Budding) (None) /hpf 03/21/22 03/21/22 Range/Units 07:24 11:35 WBC 10.12 H (4.50-10.00) X 10*3/uL RBC 2.93 L (4.40-5.60) X 10*6/uL Hgb 7.9 L (13.0-17.0) g/dL Hct 25.8 L (39.6-50.0) % MCHC 30.6 L (32.0-37.0) g/dL MPV 8.8 L (9.5-12.2) fL Immature Gran # 0.05 H (0.00-0.04) X 10*3/uL Sodium (135-145) mmol/L Chloride (96-109) mmol/L Carbon Dioxide (20.0-27.5) mmol/L Anion Gap (10.00-18.00) mmol/L Creatinine (0.6-1.5) mg/dL BUN/Creatinine Ratio (12.00-20.00) Ratio Glucose (70-110) mg/dL POC Glucose (mg/dL) 200 H (70-110) mg/dL Calcium (8.7-10.3) mg/dL Total Bilirubin (0.30-1.20) mg/dL AST (14-35) U/L ALT (10-49) U/L Total Protein (6.2-8.2) g/dL Albumin (3.8-4.9) g/dL Globulin (1.6-3.3) g/dL Albumin/Globulin Ratio (1.60-3.17) g/dL Urine Protein (Negative) Urine Glucose (UA) (Negative) Urine Blood (Negative) Ur Leukocyte Esterase (Negative) Urine RBC (0-5) /hpf Urine WBC (0-5) /hpf Urine WBC Clumps (None) /hpf Urine Mucus (None) /hpf Urine Yeast (Budding) (None) /hpf Assessment and Plan Assessment: Degenerative disc disease Central spinal cord stenosis at L2-L5 Bilateral lower extremity weakness Sacral wound Plan: Nor orthopedic spine surgical intervention is recommended at this time Follow-up information will be placed in chart for evaluation in the outpatient setting patient's overall medical status improves Please contact our service with any questions Time with Patient: Less than 30
--- NOTE | 2022-03-21 14:45 | P.PN ---
Subjective Progress Note Date: 03/21/22 CHIEF COMPLAINT: GI bleed HISTORY OF PRESENT ILLNESS: The patient is a 62-year-old male being followed due to GI bleed and anemia. Patient has history of fecal disimpaction. He is resting comfortably. No new complaints. ROS: No reports of nausea and vomiting. No fevers or chills. No new chest pain. PHYSICAL EXAM: VITAL SIGNS: Reviewed CONSTITUTIONAL: Well developed and in no acute distress. EYES: Conjuctivae without sclera icterus. Extraocular movements grossly intact. HEAD, EARS, NOSE, THROAT: Moist buccal mucosa. Head is atraumatic, normocephalic. Hears conversational speech. No nasal drainage. RESPIRATORY: Non-labored respirations and equal bilateral excursions. CARDIOVASCULAR: Palpable 2+ radial pulses. ABDOMEN: No peritonitis MUSCULOSKELETAL: No gross deformity of the lower extremities noted. No clubbing. No cyanosis. SKIN: Good skin turgor. Well perfused. NEUROLOGIC: Cranial nerves II through XII grossly intact. No focal or lateralizing signs. PSYCH: Appropriate affect. Alert and oriented to person, place and time. CLINICAL LABS: Reviewed. Hemoglobin stable 8.0-7.9. White blood cell count of 8.2-10.1. ASSESSMENT: 1. GI bleed 2. Anemia 3. Hyperglycemia with poorly controlled diabetes PLAN: 1. Hemoglobin stable at this time. May benefit from colonoscopy when adequately prepped Objective - Vital Signs Vital signs: Vital Signs Temp 98.3 F 03/21/22 07:47 Pulse 71 03/21/22 07:47 Resp 20 03/21/22 08:30 BP 90/57 03/21/22 07:47 Pulse Ox 100 03/21/22 07:47 FiO2 21 03/04/22 07:22 Intake & Output 03/20/22 03/21/22 03/21/22 18:59 06:59 18:59 Intake Total 1230 550 Output Total 2200 1800 Balance -970 -1250 Intake: Oral 1230 550 Output: Urine 2200 1800 Uretheral (Zee) 2200 Other: Voiding Method Indwelling Catheter Indwelling Catheter Indwelling Catheter # Bowel Movements 0 0 - Labs CBC & Chem 7: 03/21/22 07:24 03/21/22 07:24 Labs: Abnormal Lab Results - Last 24 Hours (Table) 03/20/22 03/20/2203/20/22 Range/Units 16:38 17:30 21:01 WBC (4.50-10.00) X 10*3/uL RBC (4.40-5.60) X 10*6/uL Hgb (13.0-17.0) g/dL Hct (39.6-50.0) % MCHC (32.0-37.0) g/dL MPV (9.5-12.2) fL Immature Gran # (0.00-0.04) X 10*3/uL Sodium (135-145) mmol/L Chloride (96-109) mmol/L Carbon Dioxide (20.0-27.5) mmol/L Anion Gap (10.00-18.00) mmol/L Creatinine (0.6-1.5) mg/dL BUN/Creatinine Ratio (12.00-20.00) Ratio Glucose (70-110) mg/dL POC Glucose (mg/dL) 251 H 272 H (70-110) mg/dL Calcium (8.7-10.3) mg/dL Total Bilirubin (0.30-1.20) mg/dL AST (14-35) U/L ALT (10-49) U/L Total Protein (6.2-8.2) g/dL Albumin (3.8-4.9) g/dL Globulin (1.6-3.3) g/dL Albumin/Globulin Ratio (1.60-3.17) g/dL Urine Protein 2+ H (Negative) Urine Glucose (UA) 2+ H (Negative) Urine Blood Small H (Negative) Ur Leukocyte Esterase Large H (Negative) Urine RBC >182 H (0-5) /hpf Urine WBC >182 H (0-5) /hpf Urine WBC Clumps Many H (None) /hpf Urine Mucus Moderate H (None) /hpf Urine Yeast (Budding) Many H (None) /hpf 03/20/22 03/21/22 03/21/22 Range/Units 21:22 06:54 07:24 WBC (4.50-10.00) X 10*3/uL RBC (4.40-5.60) X 10*6/uL Hgb (13.0-17.0) g/dL Hct (39.6-50.0) % MCHC (32.0-37.0) g/dL MPV (9.5-12.2) fL Immature Gran # (0.00-0.04) X 10*3/uL Sodium 131 L (135-145) mmol/L Chloride 94 L (96-109) mmol/L Carbon Dioxide 31.7 H (20.0-27.5) mmol/L Anion Gap 4.80 L (10.00-18.00) mmol/L Creatinine 0.5 L (0.6-1.5) mg/dL BUN/Creatinine Ratio 22.33 H (12.00-20.00) Ratio Glucose 178 H (70-110) mg/dL POC Glucose (mg/dL) 280 H 202 H (70-110) mg/dL Calcium 7.9 L (8.7-10.3) mg/dL Total Bilirubin 0.20 L (0.30-1.20) mg/dL AST 12 L (14-35) U/L ALT 9 L (10-49) U/L Total Protein 5.8 L (6.2-8.2) g/dL Albumin 2.3 L (3.8-4.9) g/dL Globulin 3.5 H (1.6-3.3) g/dL Albumin/Globulin Ratio 0.66 L (1.60-3.17) g/dL Urine Protein (Negative) Urine Glucose (UA) (Negative) Urine Blood (Negative) Ur Leukocyte Esterase (Negative) Urine RBC (0-5) /hpf Urine WBC (0-5) /hpf Urine WBC Clumps (None) /hpf Urine Mucus (None) /hpf Urine Yeast (Budding) (None) /hpf 03/21/22 03/21/22 Range/Units 07:24 11:35 WBC 10.12 H (4.50-10.00) X 10*3/uL RBC 2.93 L (4.40-5.60) X 10*6/uL Hgb 7.9 L (13.0-17.0) g/dL Hct 25.8 L (39.6-50.0) % MCHC 30.6 L (32.0-37.0) g/dL MPV 8.8 L (9.5-12.2) fL Immature Gran # 0.05 H (0.00-0.04) X 10*3/uL Sodium (135-145) mmol/L Chloride (96-109) mmol/L Carbon Dioxide (20.0-27.5) mmol/L Anion Gap (10.00-18.00) mmol/L Creatinine (0.6-1.5) mg/dL BUN/Creatinine Ratio (12.00-20.00) Ratio Glucose (70-110) mg/dL POC Glucose (mg/dL) 200 H (70-110) mg/dL Calcium (8.7-10.3) mg/dL Total Bilirubin (0.30-1.20) mg/dL AST (14-35) U/L ALT (10-49) U/L Total Protein (6.2-8.2) g/dL Albumin (3.8-4.9) g/dL Globulin (1.6-3.3) g/dL Albumin/Globulin Ratio (1.60-3.17) g/dL Urine Protein (Negative) Urine Glucose (UA) (Negative) Urine Blood (Negative) Ur Leukocyte Esterase (Negative) Urine RBC (0-5) /hpf Urine WBC (0-5) /hpf Urine WBC Clumps (None) /hpf Urine Mucus (None) /hpf Urine Yeast (Budding) (None) /hpf
[2022-03-21] MEDS: ACETAMINOPHEN TAB 325 MG TAB PO PRN (15:05)
[2022-03-21 16:42] LABS: Glucose,Whole Blood 232 mg/dL (70-110)
[2022-03-21 17:16] LABS: Appearance,Urine Cloudy (Clear); Bilirubin,Urine Negative (Negative); Blood,Urine Small (Negative); Color,Urine Light Yellow; Glucose,Urine (UA) Negative (Negative); Ketones,Urine Negative (Negative); Leukocyte Esterase,Urine Large (Negative); Mucus,Urine Rare /hpf; Nitrite,Urine Negative (Negative); Protein,Urine Negative (Negative); RBC,Urine 19 /hpf (0-5); Squamous Epithelial Cell,Urine <1 /hpf (0-4); Urobilinogen,Urine <2.0 mg/dL (<2.0); WBC,Urine 176 /hpf (0-5)
[2022-03-21 21:52] LABS: Glucose,Whole Blood 287 mg/dL (70-110)
--- NOTE | 2022-03-21 23:32 | P.PN ---
Subjective Progress Note Date: 03/20/22 Principal diagnosis: Enterobacter catheter associated UTI Patient is a 62 year old male with initial presentation hospital 10 07/30/2003 palpitation and shortness of breath patient did have a low-grade fever and a positive urine culture with Enterobacter. Patient has developed significant constipation and possible GI bleed status post disimpaction on 03/11/2022, patient has developed unstageable pressure ulcer to the sacral area apparently started last week as a deep tissue injury on 03/11/2022 per the nursing staff, the patient colonoscopy was canceled because of poor bowel prep, the patient did have a colonoscopy completed today on 03/18/2022 with evidence of mild aortic necrosis and fecal impaction On today's evaluation that is 03/20/2022, the patient denies any fever and chills , the patient is breathing comfortably on room air, the patient denies chest pain shortness of breath or cough, the patient denies nausea no vomiting and denies any abdominal pain no diarrhea Objective - Vital Signs Vital signs: Vital Signs Temp 100.6 F H 03/20/22 14:00 Pulse 71 03/20/22 14:00 Resp 15 03/20/22 14:00 BP 95/56 03/20/22 14:00 Pulse Ox 97 03/20/22 14:00 FiO2 21 03/04/22 07:22 Intake & Output 03/19/22 03/20/22 03/20/22 18:59 06:59 18:59 Intake Total 480 600 Output Total 2450 1969 Balance -2450 -1490 600 Weight 76.3 kg Intake: Oral 480 600 Output: Urine 2450 1969 Uretheral (Zee) 1969 Other: Voiding Method Indwelling Catheter Indwelling Catheter - Exam GENERAL DESCRIPTION: A middle-aged male lying in bed in no distress RESPIRATORY SYSTEM: Unlabored breathing , decreased breath sounds at bases HEART: S1 S2 regular rate and rhythm , ABDOMEN: Soft , no tenderness Patient with unstageable sacral pressure ulcer with necrotic tissue, with no significant surrounding redness or drainage EXTREMITIES: No edema feet - Labs CBC & Chem 7: 03/21/22 07:24 03/21/22 07:24 Labs: Abnormal Lab Results - Last 24 Hours (Table) 03/19/22 03/19/22 03/20/22 Range/Units 16:45 20:35 07:10 POC Glucose (mg/dL) 159 H 215 H 150 H (70-110) mg/dL 03/20/22 Range/Units 11:47 POC Glucose (mg/dL) 398 H (70-110) mg/dL Assessment and Plan (1) Catheter-associated urinary tract infection Current Visit: Yes Status: Acute Code(s): T83.511A - I/I REACT D/T INDWELLING URETHRAL CATHETER, INIT; N39.0 - URINARY TRACT INFECTION, SITE NOT SPECIFIED SNOMED Code(s): 728144085 Plan: 1patient with a low-grade fever positive UA and urinary symptoms retention requiring Zee catheter placement concerning for a symptomatic UTI urine has been finalized with Enterobacter and this patient is currently on amiodarone using quinolones can lead to QT prolongation patient received adequate antibiotic therapy will monitor the patient closely off antibiotics, so far doing well 2 the patient repeat culture with vashti and diflucan cannot be added because of amiodarone , the patient still have a positive UA however the patient is afebrile white count is normal we will monitor the patient closely without any antifungal treatment 3-Pt with unstageable sacral pressure ulcer, patient is currently being treated with medihoney, surgery recommended no surgical debridement, to keep the wound dry and off the pressure Time with Patient: Less than 30
--- NOTE | 2022-03-21 23:34 | P.PN ---
Subjective Progress Note Date: 03/21/22 Principal diagnosis: Enterobacter catheter associated UTI Patient is a 62 year old male with initial presentation hospital with palpitation and shortness of breath patient did have a low-grade fever and a positive urine culture with Enterobacter. Patient has developed significant constipation and possible GI bleed status post disimpaction on 03/11/2022, patient has developed unstageable pressure ulcer to the sacral area apparently started last week as a deep tissue injury on 03/11/2022 per the nursing staff, the patient colonoscopy was canceled because of poor bowel prep, the patient did have a colonoscopy completed today on 03/18/2022 with evidence of mild a ortic necrosis and fecal impaction On today's evaluation that is 03/21/2022, the patient did spike a fever of 101F, the patient is breathing comfortably on room he denies any chest pain shortness of cough no abdominal pain or diarrhea, the patient Zee catheter has been discontinued Objective - Vital Signs Vital signs: Vital Signs Temp 98.3 F 03/21/22 07:47 Pulse 71 03/21/22 07:47 Resp 20 03/21/22 08:30 BP 90/57 03/21/22 07:47 Pulse Ox 100 03/21/22 07:47 FiO2 21 03/04/22 07:22 Intake & Output 03/20/22 03/21/22 03/21/22 18:59 06:59 18:59 Intake Total 1230 550 Output Total 2200 1800 Balance -970 -1250 Intake: Oral 1230 550 Output: Urine 2200 1800 Uretheral (Zee) 2200 Other: Voiding Method Indwelling Catheter Indwelling Catheter Indwelling Catheter # Bowel Movements 0 0 - Exam GENERAL DESCRIPTION: A middle-aged male lying in bed in no distress RESPIRATORY SYSTEM: Unlabored breathing , decreased breath sounds at bases HEART: S1 S2 regular rate and rhythm , ABDOMEN: Soft , no tenderness Patient with unstageable sacral pressure ulcer with necrotic tissue, with no significant surrounding redness or drainage EXTREMITIES: No edema feet - Labs CBC & Chem 7: 03/21/22 07:24 03/21/22 07:24 Labs: Abnormal Lab Results - Last 24 Hours (Table) 03/20/22 03/20/22 03/20/22 Range/Units 16:38 17:30 21:01 WBC (4.50-10.00) X 10*3/uL RBC (4.40-5.60) X 10*6/uL Hgb (13.0-17.0) g/dL Hct (39.6-50.0) % MCHC (32.0-37.0) g/dL MPV (9.5-12.2) fL Immature Gran # (0.00-0.04) X 10*3/uL Sodium (135-145) mmol/L Chloride (96-109) mmol/L Carbon Dioxide (20.0-27.5) mmol/L Anion Gap (10.00-18.00) mmol/L Creatinine (0.6-1.5) mg/dL BUN/Creatinine Ratio (12.00-20.00) Ratio Glucose (70-110) mg/dL POC Glucose (mg/dL) 251 H 272 H (70-110) mg/dL Calcium (8.7-10.3) mg/dL Total Bilirubin (0.30-1.20) mg/dL AST (14-35) U/L ALT (10-49) U/L Total Protein (6.2-8.2) g/dL Albumin (3.8-4.9) g/dL Globulin (1.6-3.3) g/dL Albumin/Globulin Ratio (1.60-3.17) g/dL Urine Protein 2+ H (Negative) Urine Glucose (UA) 2+ H (Negative) Urine Blood Small H (Negative) Ur Leukocyte Esterase Large H (Negative) Urine RBC >182 H (0-5) /hpf Urine WBC >182 H (0-5) /hpf Urine WBC Clumps Many H (None) /hpf Urine Mucus Moderate H (None) /hpf Urine Yeast (Budding) Many H (None) /hpf 03/20/22 03/21/22 03/21/22 Range/Units 21:22 06:54 07:24 WBC (4.50-10.00) X 10*3/uL RBC (4.40-5.60) X 10*6/uL Hgb (13.0-17.0) g/dL Hct (39.6-50.0) % MCHC (32.0-37.0) g/dL MPV (9.5-12.2) fL Immature Gran # (0.00-0.04) X 10*3/uL Sodium 131 L (135-145) mmol/L Chloride 94 L (96-109) mmol/L Carbon Dioxide 31.7 H (20.0-27.5) mmol/L Anion Gap 4.80 L (10.00-18.00) mmol/L Creatinine 0.5 L (0.6-1.5) mg/dL BUN/Creatinine Ratio 22.33 H (12.00-20.00) Ratio Glucose 178 H (70-110) mg/dL POC Glucose (mg/dL) 280 H 202 H (70-110) mg/dL Calcium 7.9 L (8.7-10.3) mg/dL Total Bilirubin 0.20 L (0.30-1.20) mg/dL AST 12 L (14-35) U/L ALT 9 L (10-49) U/L Total Protein 5.8 L (6.2-8.2) g/dL Albumin 2.3 L (3.8-4.9) g/dL Globulin 3.5 H (1.6-3.3) g/dL Albumin/Globulin Ratio 0.66 L (1.60-3.17) g/dL Urine Protein (Negative) Urine Glucose (UA) (Negative) Urine Blood (Negative) Ur Leukocyte Esterase (Negative) Urine RBC (0-5) /hpf Urine WBC (0-5) /hpf Urine WBC Clumps (None) /hpf Urine Mucus (None) /hpf Urine Yeast (Budding) (None) /hpf 03/21/22 03/21/22 Range/Units 07:24 11:35 WBC 10.12 H (4.50-10.00) X 10*3/uL RBC 2.93 L (4.40-5.60) X 10*6/uL Hgb 7.9 L (13.0-17.0) g/dL Hct 25.8 L (39.6-50.0) % MCHC 30.6 L (32.0-37.0) g/dL MPV 8.8 L (9.5-12.2) fL Immature Gran # 0.05 H (0.00-0.04) X 10*3/uL Sodium (135-145) mmol/L Chloride (96-109) mmol/L Carbon Dioxide (20.0-27.5) mmol/L Anion Gap (10.00-18.00) mmol/L Creatinine (0.6-1.5) mg/dL BUN/Creatinine Ratio (12.00-20.00) Ratio Glucose (70-110) mg/dL POC Glucose (mg/dL) 200 H (70-110) mg/dL Calcium (8.7-10.3) mg/dL Total Bilirubin (0.30-1.20) mg/dL AST (14-35) U/L ALT (10-49) U/L Total Protein (6.2-8.2) g/dL Albumin (3.8-4.9) g/dL Globulin (1.6-3.3) g/dL Albumin/Globulin Ratio (1.60-3.17) g/dL Urine Protein (Negative) Urine Glucose (UA) (Negative) Urine Blood (Negative) Ur Leukocyte Esterase (Negative) Urine RBC (0-5) /hpf Urine WBC (0-5) /hpf Urine WBC Clumps (None) /hpf Urine Mucus (None) /hpf Urine Yeast (Budding) (None) /hpf Assessment and Plan (1) Catheter-associated urinary tract infection Current Visit: Yes Status: Acute Code(s): T83.511A - I/I REACT D/T INDWELLING URETHRAL CATHETER, INIT; N39.0 - URINARY TRACT INFECTION, SITE NOT SPECIFIED SNOMED Code(s): 956439364 Plan: 1 -Pt with unstageable sacral pressure ulcer, patient is currently being treated with medihoney, surgery recommended no surgical debridement, to keep the wound dry and off the pressure 2patient with a new fever on Tuesday for possible UTI, blood culture has been obtained we will obtain a UA and culture and empirically add cefepime while waiting for cultures to finalize Time with Patient: Less than 30
--- NOTE | 2022-03-21 23:55 | PN ---
PROGRESS NOTE DATE OF SERVICE: 03/20/2022 SUBJECTIVE: This 62-year-old gentleman, admitted with severe back pain, also had paroxysmal atrial fibrillation, and the patient will be closely monitored. No chest pain. No palpitations. No fever. OBJECTIVE: VITAL SIGNS: Pulse is 71, blood pressure 90/56, respirations 17. The patient is mildly febrile. HEENT: Conjunctivae normal. NECK: No JVD. CARDIOVASCULAR: S1, S2. RESPIRATION: Clear to auscultation. ABDOMEN: Soft, nontender. LEGS: No edema. NERVOUS SYSTEM: No focal deficits. MEDICATIONS: Reviewed and include Cordarone. REVIEW OF SYSTEMS: A 14-point review of systems is negative except as mentioned earlier. LABORATORY DATA: Glucose 251. Rest of the labs are noted. ASSESSMENT: 1. Paroxysmal atrial fibrillation. 2. Fever. 3. Acute diabetic ketoacidosis. 4. Black tarry stools. 5. Multiple medical issues. RECOMMENDATIONS: I recommend to continue current medications and symptomatic treatment. As far as fever is concerned, I would recommend a chest x-ray and also UA with micro, and blood cultures. Continue to monitor. Prognosis guarded because of multiple complex medical issues. Further recommendations to follow. MMODL / IJN: [id number] /
[2022-03-22] MEDS: CEFEPIME 2 GM in SODIUM CHLORIDE 0.9% 100 ML IVPB SCH ×3 (01:00→15:18)
--- NOTE | 2022-03-22 03:16 | P.PN ---
Subjective Progress Note Date: 03/16/22 03/16/2022: Patient was seen for a follow-up. Patient is laying comfortably in the bed. Patient is much more alert and awake. Patient continues to have lower extremity weakness. Patient's telemetry monitoring showing sinus rhythm, with some PVCs and PACs. 03/07/2022: Patient was seen for a follow-up. Patient is laying comfortably in the bed. Patient appears somewhat groggy. Continues to have weakness of the lower extremities. 03/06/2022: Patient was seen for a follow-up. Patient was asleep. On waking up, patient was groggy, offers no complaints. 03/05/2022: Patient was seen for a follow-up. Patient is laying comfortably in the bed. Sitter was also present. Patient continues to be weak particularly in the legs. Lower extremities are very painful. He cannot move his lower extremities. Patient claims that this lower exudative weakness started since the fall prior to arrival. Objective - Vital Signs Vital signs: Vital Signs Temp 98.9 F 03/16/22 12:12 Pulse 84 03/16/22 12:13 Resp 16 03/16/22 12:13 BP 122/68 03/16/22 12:12 Pulse Ox 98 03/16/22 02:29 FiO2 21 03/04/22 07:22 Intake & Output 03/15/22 03/16/22 03/16/22 18:59 06:59 18:59 Intake Total 50 10 Output Total 1400 1950 2100 Balance -1350 -1940 -2100 Weight 76.3 kg Intake: IV 50 10 Invasive Line 6 10 Output: Urine 1400 1949 2099 Other: Voiding Method Indwelling Catheter Indwelling Catheter # Bowel Movements 1 1 - Exam Patient was somnolent. Detail examination deferred. Patient continues to have significant swelling of his extremities. Patient's muscle strength is(right/left) upper extremities 5/5, distally and proximally. In the lower limbs hip flexion is 1/2+3-, patient can wiggle his leg, left > right. No movement of the feet or toes. Deep tendon reflexes are 1+ at the biceps, but absent at the wrist, triceps, knees and ankles. Plantars are flat. Sensations are equal. - Labs CBC & Chem 7: 03/21/22 07:24 03/21/22 07:24 Labs: Abnormal Lab Results - Last 24 Hours (Table) 03/15/22 03/16/22 03/16/22 Range/Units 20:05 07:20 10:33 Sodium 126 L (137-145) mmol/L Chloride 93 L (98-107) mmol/L Creatinine 0.44 L (0.66-1.25) mg/dL Glucose 211 H (74-99) mg/dL POC Glucose (mg/dL) 271 H 160 H (70-110) mg/dL Calcium 7.3 L (8.4-10.2) mg/dL 03/16/22 03/16/22 Range/Units 11:20 16:21 Sodium (137-145) mmol/L Chloride (98-107) mmol/L Creatinine (0.66-1.25) mg/dL Glucose (74-99) mg/dL POC Glucose (mg/dL) 293 H 141 H (70-110) mg/dL Calcium (8.4-10.2) mg/dL Microbiology - Last 24 Hours (Table) 03/11/22 08:25 Blood Culture - Preliminary Blood No Growth after 120 hours Assessment and Plan Assessment: * Altered mental status, likely due to toxic metabolic encephalopathy, improved. * Bilateral lower extremity weakness, unclear etiology. MRI revealed multilevel spinal stenosis, at least moderate to severe in degree. Rule out superimposed critical illness myopathy versus polyradiculopathy or polyneuropathy related to poorly controlled diabetes. * Acute diabetic ketoacidosis * Poorly controlled diabetes * Metabolic acidosis * New onset atrial fibrillation * Urinary tract infection with Enterobacter Clocae, on ceftriaxone. * Tobacco use * History of ADHD. Plan: * MRI of the lumbar and thoracic spine reported as multilevel lumbar spurring and disc bulging with multilevel mild spinal stenosis. Mild wedging of L1 and L2 appears old. No acute abnormality of the thoracic spine. No compression fracture. No thoracic spinal stenosis. I personally reviewed MRI of the lumbar and thoracic spine myself. There is multilevel spinal stenosis at L3- L4, L4-L5, and lesser degree at L2-L3 and L5-S1 levels. The most significant is at L4-L5 level, which appears moderate to severe on my review. * Orthopedic spine surgery input appreciated. No surgery planned in the near future. * B12 727, folate 7.6, TSH 1.7. Patient's last hemoglobin A1c on 06/07/2016 was 12.7. Repeat hemoglobin A1c 12.9 on 03/05/2022. Ammonia is normal. * EMG nerve conductions of lower extremity as an outpatient. * Optimize control of diabetes. * Recommended tobacco cessation. * EEG 03/04/2022 was abnormal due to background slowing of moderate degree. This is suggestive of generalized cerebral dysfunction as can be seen with toxic metabolic encephalopathy or due to diffuse structural brain abnormality. Clinical correlation recommended. No epileptiform activity was seen. * Patient has new onset atrial fibrillation. Patient was on full dose anticoagulation with Lovenox, currently on hold because of GI bleed. * Patient had GI bleed. Patient had EGD, which showed mild antral gastritis, mild esophagitis. Patient underwent coloscopy yesterday, but the preparation was poor. Patient to undergo colonoscopy on 03/18/2022. Suggest resuming anticoagulation, if and whenever cleared by IM/GI/surgery. * Medical management as per IM, critical care and other specialties. * Recommend PT OT. * Neurologically no other workup indicated. Patient needs rehab. Please reconsult neurology if any other concerns.
--- NOTE | 2022-03-22 03:58 | P.PN ---
Subjective Progress Note Date: 03/22/22 This is a 62-year-old patient, follows with Dr. Mendez. Chronic stable medical conditions include ADHD, herniated disc lower back, smoker. Patient's son at the bedside. Patient yesterday took his medication was going to the bathroom and the son noticed that he was feeling looking weak. He became less r esponsive. Never passed out. Shaky. No fever or chills reported. EMS was called out. Patient is found to be in atrial fibrillation with rapid ventricular rate. In the ER started on IV heparin, given adenosine, later put on IV Cardizem. Also found to be in DKA. Put on insulin drip. Potassium was very low NG tube had to be pacemaker placement. Tired. Most of the history of pain medicine at the bedside. Patient rather tired and lethargic. Admitted with new onset of atrial fibrillation uncontrolled, diabetic ketoacidosis, acute metabolic encephalopathy, severe hypokalemia. Started on Cardizem drip, IV heparin, insulin drip. NG tube was placed for potassium replacement. March 03: ICU: Patient went back into sinus rhythm. Did have 3-4 minutes burst of A. fib with rapid ventricular rate and rhythm back in sinus rhythm. IV heparin is being changed over to subcu Lovenox 70 mg every 12. Insulin drip is discontinued. Put on Levemir 10 units. NG tube in place. Potassium being replaced. Still patient is rather lethargic. We'll get a computed tomography scan of the brain. And EEG. March 04: ICU: Remains in sinus rhythm. Has been off Cardizem drip. Slightly more awake but still lethargic. Attempted to answer questions. Potassium down to 2.7. Potassium being replaced. At magnesium. By mouth amiodarone. On IV ceftriaxone for possible UTI. Sinus rhythm. Stop Catapres increase Lopressor to 100 mg twice a day. Check ammonia level. Phosphorus being replaced. Consult neurology. CT brain negative for stroke. EEG results pending. March 05: ICU. Laying in bed. Weak. EEG showed encephalopathy. Weakness in all the limbs. Just ordered able to lift his arms. [place] to be from electrolyte abnormalities. Able to answer questions slowly. Did tolerate some ice chips. Nurse will try to feed the patient. Lethargic but more awake. PTOT consulted. Unstageable bluish decolorization of the sacrum and heels. NG tube discontinued. IV fluids. 03/06/2020: Patient remains in the ICU improving slowly and gradually. Still had fever yesterday of 100.7, no more fever today. Other vitals are stable. Patient remains on ceftriaxone and he is been treated for UTI with Enterobacter. He still has fever as of yesterday therefore we will check renal ultrasound. Corcalcitonin 1.03, His altered mentation most likely is secondary to metabolic/toxic encephalopathy and UTI, neurologist on the case and he ordered MRI of the thoracolumbar spine to rule out spinal stenosis, results showing multilevel lumbar spinal stenosis but is mild and there is no spinal stenosis of the thoracic spine. Cardiology the case for new-onset A. fib, currently on Lovenox and amiodarone and rate controlled. Distal on IV fluids under lactate 125 Ulcers on Protonix 40 mg oral twice a day and Lovenox 70 mg twice daily. Glucose controlled on Levemir 14 units. His hemoglobin A1c is 12.9% and his DKA on admission resolved 03/07/2022 Patient still feels generally weak and lethargic. However he has good appetite. He denies chest pain or abdominal pain. No dyspnea. He looks comfortable in bed. He had 1 small bowel movement, no diarrhea. Zee catheter in place with yellow urine. Patient procalcitonin significantly improved down to 0.15, however his culture showed Enterobacter resistant to ceftriaxone. Patient currently on oral Levaquin. We going to consult infectious disease team. WBC is 11.3. Sodium 129. Patient fever on admission has subsided since then. Neurologist on the case and recommended EMG and nerve conduction study as an outpatient. Patient currently on Lovenox 70 mg twice a day, Levemir insulin 14 units and amiodarone. Also he is on oral Protonix twice daily and IV fluids under lactate at 125 Patient tolerates some diet, lower rate elected down to 75 mL/h renal ultrasound order, follow-up results 03/08/2022 Patient is seen and evaluated in follow-up this morning with multiple medical consultations including neurology, pulmonary, infectious disease, orthopedics following. Plan is for possible lumbar decompression sometime this week. Have consulted general surgery as per nursing report patient had a large dark tarry stool this morning. Hemoglobin is stable at 9.7. Patient's sodium is 129 with a potassium of 3.7 current creatinine is stable at 0.42. Blood sugars have been elevated and will continue current regimen. WBC remains elevated and patient is maintained on cefepime and will continue. Oral intake continues to be fair to poor and patient continues to report back pain. Patient has been febrile. Patient denies chest pain or shortness of breath. Patient is extremely lethargic with generalized edema noted throughout. Will consult nephrology for hyponatremia 03/09/2022 Patient is seen and evaluated in follow-up this morning. Multiple medical consultations following including orthopedics, general surgery, nephrology, pulmonary, and infectious disease. Plan was for tentative decompression surgery with orthopedics although sodium continues to be low and nursing reported dark tarry stools and is being evaluated with EGD/colonoscopy that is to be done on . Patient will start bowel prep tomorrow and will monitor closely of labs. Abdomen ultrasound was ordered as well and patient is continue with i ndwelling Zee catheter. Patient currently maintained on antibiotics and will continue. Patient is maintained on clear liquids and tolerating appears more awake and alert than yesterday. Patient continues to be weak and denies chest pain or shortness of breath. Patient labs currently pending and nephrology is following for hyponatremia and was started on Lasix. 03/10/2022: I resumed care of the patient today Tolerating clear liquids. Tired. Pending surgery-Dr. Newton . Back pain controlled. Patient's had black starry stools. For colonoscopy per Dr. Pabon. 03/11/2022: Patient had soft brown stool today. Some abdominal discomfort. Pending colonoscopy today. Received bowel preparation. Patient received 1 dose of Samsca yesterday. Also IV Ferrlecit. 03/12/2022. Colonoscopic could not be done yesterday because of poor bowel preparation. Dark stool was encountered during start of colonoscopy. Patient back on clear liquids. Now rescheduled for Tuesday. 03/13/2022: Patient had bowel preparation done tomorrow for colonoscopy Tuesday. Tolerating liquid diet. 03/14/2022: On liquid diet. Getting bowel preparation for tomorrow. Otherwise stable. Discussed with patient. 03/15/2022: Complaining of mid back pain. Received bowel prep yesterday. Had 2- 3 bowel movements. Possible endoscopy today. Awaiting decision from Dr. Newton for lumbar surgery either this admission nor following some rehab 03/16/2022: wentdown for colonoscopy. Yesterday. Found to have large brown stool in the vault. Procedure canceled. Being rescheduled for . 03/17/2022: Liquid diet. Scheduled for colonoscopic . Intermittent back pain. Bowel prep for surgery. 03/18/2022: Underwent colonoscopy today. Unremarkable. Discussed with Dr. Santana from ID. Has a sacral wound. Like Dr. Pabon to debrided the same. Given that not a good idea to patient have lumbar surgery at this point. This should be postponed for later. 03/19/2022: Oral intake fair. Discussed with ID. Feels patient needs debridement. Discussed with Dr. Pabon. He feels that this point would not help. ID and Dr. Pabon will further discuss. Discussed with Dr. Newton after discussing with ID that present time not a good idea to reduce lumbar surgery this would be postponed. Told patient 03/21/2022 Patient is seen today with multiple medical consultations following. Continued on local wound care with general surgery following. Also continues on IV cefepime with ID following closely. Follow up on labs and continue to monitor closely. Will need to discuss with consultations about treatment plan moving forward. Afebrile. Continue with current medications and encourage oral intake. PT/OT to follow. Active Medications Acetaminophen (Acetaminophen Tab 325 Mg Tab) 650 mg PO Q6HR PRN PRN Reason: Mild Pain or Fever > 100.5 Last Admin: 03/21/22 15:05 Dose: 650 mg Hydrocodone Bitart/Acetaminophen (Hydrocodone/Apap 7.5-325mg 1 Each Tab) 1 each PO Q6HR PRN PRN Reason: Pain Last Admin: 03/21/22 22:19 Dose: 1 each Al Hydroxide/Mg Hydroxide (Mag Hydrox/Al Hydrox/Simeth 30 Ml Cup) 15 ml PO Q6HR PRN PRN Reason: Indigestion Last Admin: 03/20/22 08:44 Dose: 15 ml Amiodarone HCl (Amiodarone 200 Mg Tab) 200 mg PO DAILY [facility] Last Admin: 03/21/22 08:45 Dose: 200 mg Dextrose/Water (Dextrose 50% Syringe 50 Ml) 25 ml IVP PER PROTOCOL PRN; Protocol PRN Reason: Hypoglycemia Last Admin: 03/11/22 16:43 Dose: 25 ml Dextrose/Water (Dextrose 50% Syringe 50 Ml) 50 ml IVP PER PROTOCOL PRN; Protocol PRN Reason: Hypoglycemia Docusate Sodium (Docusate 100 Mg Cap) 100 mg PO BID [facility] Last Admin: 03/21/22 22:18 Dose: 100 mg Folic Acid (Folic Acid 1 Mg Tab) 1 mg PO DAILY [facility] Last Admin: 03/21/22 08:45 Dose: 1 mg Furosemide (Furosemide 40 Mg Tab) 40 mg PO DAILY [facility] Last Admin: 03/21/22 08:50 Dose: 40 mg Lactated Ringer's (Lactated Ringers) 1,000 mls @ 20 mls/hr IV .Q24H [facility] Last Admin: 03/21/22 08:46 Dose: Not Given Lactated Ringer's (Lactated Ringers) 1,000 mls @ 20 mls/hr IV .Q24H [facility] Last Admin: 03/21/22 08:46 Dose: Not Given Cefepime HCl 2 gm/ Sodium (Chloride) 100 mls @ 25 mls/hr IVPB Q8HR [facility]; Protocol Last Admin: 03/22/22 01:00 Dose: 25 mls/hr Insulin Aspart (Insulin Aspart (Novolog) 100 Unit/Ml Vial) 0 unit SQ ACHS [facility]; Protocol Last Admin: 03/21/22 22:18 Dose: 6 unit Insulin Detemir (Insulin Detemir (Levemir) 100 Unit/Ml Syr) 14 unit SQ DAILY@0700 [facility] Last Admin: 03/21/22 07:01 Dose: 14 unit Lidocaine HCl (Lidocaine 1% (10mg/Ml) For Iv Start) 0.1 ml INTRADERMA PER PROTOCOL PRN PRN Reason: IV Start Metoprolol Tartrate (Metoprolol Tartrate 50 Mg Tab) 50 mg PO BID [facility] Last Admin: 03/21/22 22:18 Dose: 50 mg Miscellaneous Information (Potassium Replacement Protocol 1 Each Misc) 1 each MISCELLANE DAILY PRN; Protocol PRN Reason: Per Protocol Naloxone HCl (Naloxone 0.4 Mg/Ml 1 Ml Vial) 0.2 mg IV Q2M PRN PRN Reason: Opioid Reversal Nicotine (Nicotine 21mg/24hr Patch) 1 patch TRANSDERM DAILY [facility] Last Admin: 03/21/22 08:44 Dose: 1 patch Ondansetron HCl (Ondansetron 4 Mg/2 Ml Vial) 4 mg IVP Q8HR PRN PRN Reason: Nausea And Vomiting Pantoprazole Sodium (Pantoprazole 40 Mg/10 Ml Vial) 40 mg IVP BID [facility] Last Admin: 03/21/22 22:18 Dose: 40 mg Senna (Sennosides 8.6 Mg Tab) 8.6 mg PO DAILY [facility] Last Admin: 03/21/22 08:45 Dose: 8.6 mg Physical examination: GENERAL: Awake, laying in bed EYES: Pupils equal. Conjunctiva normal. HEENT: External appearance of nose and ears normal, oral cavity mucous membranes moist NECK: JVD not raised; masses not palpable. HEART: Heart sounds normal; no edema. LUNGS: Respiratory rate normal; decreased breath sounds. ABDOMEN: Soft, nontender, liver spleen not palpable, no masses palpable. Unstageble Sacral pressure ulcer, PSYCH: Answering questions appropriately Assessment and plan: -Paroxysmal atrial fibrillation with a rapid ventricular rate, back in sinus rhythm -Diabetic ketoacidosis: Resolved -Black starry stools/acute GI bleed..: Resolved -Unstageable sacral, pressure ulcer, POA -Diabetes mellitus type 2, uncontrolled with hyperglycemia -Acute metabolic encephalopathy, multifactorial, better Computed tomography scan of brain unremarkable.. EEG-encephalopathy. No s eizure.. Follow with Neurology -Severe hypokalemia: Better -Hypophosphatemia: Better -COPD in a current smoker -Chronic nicotine dependence, cigarette smoker -Possibly SIADH -L2 S1 laminectomy and decompression, with lower extremity weakness for central spinal cord stenosis. Surgery Per Dr. Newton: To be postponed, outpatient given the sacral ulcer that may be debrided. Plan: Multiple medical consultations following Continue local wound care ID following and continued on abx. Need to discuss further with other consultations about treatment plan moving forward Continue to monitor accuchecks achs and continue current regimen. PT/OT to evaluate for possible ECF Due to multiple complex medical issues, prognosis is guarded The impression and plan of care has been dictated as a scribe by Kaykay Polk, nurse practitioner as directed. Dr. Carlitos MD I have performed a history and examination and MDM of this patient, discussed the same with the dictator, and has been documented as a scribe. Based on total visit time, I have performed more than 50% of the visit. Any additional findings or plans will be noted. Objective - Vital Signs Vital signs: Vital Signs Temp 98.3 F 03/21/22 07:47 Pulse 71 03/21/22 07:47 Resp 20 03/21/22 08:30 BP 90/57 03/21/22 07:47 Pulse Ox 100 03/21/22 07:47 FiO2 21 03/04/22 07:22 Intake & Output 03/20/22 03/21/22 03/21/22 18:59 06:59 18:59 Intake Total 1230 300 Output Total 2200 1800 Balance -970 -1500 Intake: Oral 1230 300 Output: Urine 2200 1800 Uretheral (Zee) 2200 Other: Voiding Method Indwelling Catheter Indwelling Catheter Indwelling Catheter # Bowel Movements 0 0 - Labs CBC & Chem 7: 03/21/22 07:24 03/21/22 07:24 Labs: Abnormal Lab Results - Last 24 Hours (Table) 03/20/22 03/20/22 03/20/22 Range/Units 16:38 17:30 21:01 WBC (4.50-10.00) X 10*3/uL RBC (4.40-5.60) X 10*6/uL Hgb (13.0-17.0) g/dL Hct (39.6-50.0) % MCHC (32.0-37.0) g/dL MPV (9.5-12.2) fL Immature Gran # (0.00-0.04) X 10*3/uL Sodium (135-145) mmol/L Chloride (96-109) mmol/L Carbon Dioxide (20.0-27.5) mmol/L Anion Gap (10.00-18.00) mmol/L Creatinine (0.6-1.5) mg/dL BUN/Creatinine Ratio (12.00-20.00) Ratio Glucose (70-110) mg/dL POC Glucose (mg/dL) 251 H 272 H (70-110) mg/dL Calcium (8.7-10.3) mg/dL Total Bilirubin (0.30-1.20) mg/dL AST (14-35) U/L ALT (10-49) U/L Total Protein (6.2-8.2) g/dL Albumin (3.8-4.9) g/dL Globulin (1.6-3.3) g/dL Albumin/Globulin Ratio (1.60-3.17) g/dL Urine Protein 2+ H (Negative) Urine Glucose (UA) 2+ H (Negative) Urine Blood Small H (Negative) Ur Leukocyte Esterase Large H (Negative) Urine RBC >182 H (0-5) /hpf Urine WBC >182 H (0-5) /hpf Urine WBC Clumps Many H (None) /hpf Urine Mucus Moderate H (None) /hpf Urine Yeast (Budding) Many H (None) /hpf 03/20/22 03/21/22 03/21/22 Range/Units 21:22 06:54 07:24 WBC (4.50-10.00) X 10*3/uL RBC (4.40-5.60) X 10*6/uL Hgb (13.0-17.0) g/dL Hct (39.6-50.0) % MCHC (32.0-37.0) g/dL MPV (9.5-12.2) fL Immature Gran # (0.00-0.04) X 10*3/uL Sodium 131 L (135-145) mmol/L Chloride 94 L (96-109) mmol/L Carbon Dioxide 31.7 H (20.0-27.5) mmol/L Anion Gap 4.80 L (10.00-18.00) mmol/L Creatinine 0.5 L (0.6-1.5) mg/dL BUN/Creatinine Ratio 22.33 H (12.00-20.00) Ratio Glucose 178 H (70-110) mg/dL POC Glucose (mg/dL) 280 H 202 H (70-110) mg/dL Calcium 7.9 L (8.7-10.3) mg/dL Total Bilirubin 0.20 L (0.30-1.20) mg/dL AST 12 L (14-35) U/L ALT 9 L (10-49) U/L Total Protein 5.8 L (6.2-8.2) g/dL Albumin 2.3 L (3.8-4.9) g/dL Globulin 3.5 H (1.6-3.3) g/dL Albumin/Globulin Ratio 0.66 L (1.60-3.17) g/dL Urine Protein (Negative) Urine Glucose (UA) (Negative) Urine Blood (Negative) Ur Leukocyte Esterase (Negative) Urine RBC (0-5) /hpf Urine WBC (0-5) /hpf Urine WBC Clumps (None) /hpf Urine Mucus (None) /hpf Urine Yeast (Budding) (None) /hpf 03/21/22 03/21/22 Range/Units 07:24 11:35 WBC 10.12 H (4.50-10.00) X 10*3/uL RBC 2.93 L (4.40-5.60) X 10*6/uL Hgb 7.9 L (13.0-17.0) g/dL Hct 25.8 L (39.6-50.0) % MCHC 30.6 L (32.0-37.0) g/dL MPV 8.8 L (9.5-12.2) fL Immature Gran # 0.05 H (0.00-0.04) X 10*3/uL Sodium (135-145) mmol/L Chloride (96-109) mmol/L Carbon Dioxide (20.0-27.5) mmol/L Anion Gap (10.00-18.00) mmol/L Creatinine (0.6-1.5) mg/dL BUN/Creatinine Ratio (12.00-20.00) Ratio Glucose (70-110) mg/dL POC Glucose (mg/dL) 200 H (70-110) mg/dL Calcium (8.7-10.3) mg/dL Total Bilirubin (0.30-1.20) mg/dL AST (14-35) U/L ALT (10-49) U/L Total Protein (6.2-8.2) g/dL Albumin (3.8-4.9) g/dL Globulin (1.6-3.3) g/dL Albumin/Globulin Ratio (1.60-3.17) g/dL Urine Protein (Negative) Urine Glucose (UA) (Negative) Urine Blood (Negative) Ur Leukocyte Esterase (Negative) Urine RBC (0-5) /hpf Urine WBC (0-5) /hpf Urine WBC Clumps (None) /hpf Urine Mucus (None) /hpf Urine Yeast (Budding) (None) /hpf
[2022-03-22] MEDS: HYDROcodone/APAP 7.5-325MG 1 EACH TAB PO PRN ×2 (04:18→10:49)
[2022-03-22 06:38] LABS: Glucose,Whole Blood 193 mg/dL (70-110)
[2022-03-22] MEDS: INSULIN ASPART (NovoLOG) 100 UNIT/ML VIAL SQ SCH ×4 (06:46→21:19)
[2022-03-22] MEDS: FUROSEMIDE 40 MG TAB PO SCH (07:32)
[2022-03-22] MEDS: NICOTINE 21MG/24HR PATCH TRANSDERM SCH (07:32)
[2022-03-22] MEDS: SENNOSIDES 8.6 MG TAB PO SCH (07:32)
[2022-03-22] MEDS: INSULIN DETEMIR (LEVEMIR) 100 UNIT/ML SYR SQ SCH (07:32)
[2022-03-22] MEDS: DOCUSATE 100 MG CAP PO SCH ×2 (07:33→19:56)
[2022-03-22] MEDS: FOLIC ACID 1 MG TAB PO SCH (07:33)
[2022-03-22] MEDS: AMIODARONE 200 MG TAB PO SCH (07:33)
[2022-03-22] MEDS: METOPROLOL TARTRATE 50 MG TAB PO SCH ×3 (07:33→19:56)
--- NOTE | 2022-03-22 10:05 | P.PN ---
Subjective Patient is seen in follow-up for hyponatremia. Sodium level 131 yesterday with blood glucose of 287. On oral Lasix. Has also received Samsca this admission. Nonoliguric. Has a Zee catheter. No active complaints. Blood pressure stable at 107/67. Vital signs are stable. General: Awake. No acute distress. HEENT: Head exam is unremarkable. LUNGS: Breath sounds decreased. HEART: Rate and Rhythm are regular. ABDOMEN: Soft, no distention. EXTREMITITES: Trace edema. Objective - Vital Signs Vital signs: Vital Signs Temp 99.5 F 03/22/22 02:58 Pulse 78 03/22/22 07:25 Resp 16 03/22/22 07:25 BP 107/67 03/22/22 07:25 Pulse Ox 100 03/22/22 07:25 FiO2 21 03/04/22 07:22 Intake & Output 03/21/22 03/22/22 03/22/22 18:59 06:59 18:59 Intake Total 1200 700 Output Total 1800 Balance -600 700 Intake: Oral 1200 700 Output: Urine 1800 Other: Voiding Method Indwelling Catheter # Voids 450 # Bowel Movements 0 - Labs CBC & Chem 7: 03/21/22 07:24 03/21/22 07:24 Labs: Abnormal Lab Results - Last 24 Hours (Table) 03/21/22 03/21/22 03/21/22 Range/Units 07:24 07:24 11:35 WBC 10.12 H (4.50-10.00) X 10*3/uL RBC 2.93 L (4.40-5.60) X 10*6/uL Hgb 7.9 L (13.0-17.0) g/dL Hct 25.8 L (39.6-50.0) % MCHC 30.6 L (32.0-37.0) g/dL MPV 8.8 L (9.5-12.2) fL Immature Gran # 0.05 H (0.00-0.04) X 10*3/uL Sodium 131 L (135-145) mmol/L Chloride 94 L (96-109) mmol/L Carbon Dioxide 31.7 H (20.0-27.5) mmol/L Anion Gap 4.80 L (10.00-18.00) mmol/L Creatinine 0.5 L (0.6-1.5) mg/dL BUN/Creatinine Ratio 22.33 H (12.00-20.00) Ratio Glucose 178 H (70-110) mg/dL POC Glucose (mg/dL) 200 H (70-110) mg/dL Calcium 7.9 L (8.7-10.3) mg/dL Total Bilirubin 0.20 L (0.30-1.20) mg/dL AST 12 L (14-35) U/L ALT 9 L (10-49) U/L Total Protein 5.8 L (6.2-8.2) g/dL Albumin 2.3 L (3.8-4.9) g/dL Globulin 3.5 H (1.6-3.3) g/dL Albumin/Globulin Ratio 0.66 L (1.60-3.17) g/dL Urine Blood (Negative) Ur Leukocyte Esterase (Negative) Urine RBC (0-5) /hpf Urine WBC (0-5) /hpf Urine WBC Clumps (None) /hpf Urine Mucus (None) /hpf 03/21/22 03/21/22 03/21/22 Range/Units 15:00 16:41 21:49 WBC (4.50-10.00) X 10*3/uL RBC (4.40-5.60) X 10*6/uL Hgb (13.0-17.0) g/dL Hct (39.6-50.0) % MCHC (32.0-37.0) g/dL MPV (9.5-12.2) fL Immature Gran # (0.00-0.04) X 10*3/uL Sodium (135-145) mmol/L Chloride (96-109) mmol/L Carbon Dioxide (20.0-27.5) mmol/L Anion Gap (10.00-18.00) mmol/L Creatinine (0.6-1.5) mg/dL BUN/Creatinine Ratio (12.00-20.00) Ratio Glucose (70-110) mg/dL POC Glucose (mg/dL) 232 H 287 H (70-110) mg/dL Calcium (8.7-10.3) mg/dL Total Bilirubin (0.30-1.20) mg/dL AST (14-35) U/L ALT (10-49) U/L Total Protein (6.2-8.2) g/dL Albumin (3.8-4.9) g/dL Globulin (1.6-3.3) g/dL Albumin/Globulin Ratio (1.60-3.17) g/dL Urine Blood Small H (Negative) Ur Leukocyte Esterase Large H (Negative) Urine RBC 19 H (0-5) /hpf Urine WBC 176 H (0-5) /hpf Urine WBC Clumps Few H (None) /hpf Urine Mucus Rare H (None) /hpf 03/22/22 Range/Units 06:37 WBC (4.50-10.00) X 10*3/uL RBC (4.40-5.60) X 10*6/uL Hgb (13.0-17.0) g/dL Hct (39.6-50.0) % MCHC (32.0-37.0) g/dL MPV (9.5-12.2) fL Immature Gran # (0.00-0.04) X 10*3/uL Sodium (135-145) mmol/L Chloride (96-109) mmol/L Carbon Dioxide (20.0-27.5) mmol/L Anion Gap (10.00-18.00) mmol/L Creatinine (0.6-1.5) mg/dL BUN/Creatinine Ratio (12.00-20.00) Ratio Glucose (70-110) mg/dL POC Glucose (mg/dL) 193 H (70-110) mg/dL Calcium (8.7-10.3) mg/dL Total Bilirubin (0.30-1.20) mg/dL AST (14-35) U/L ALT (10-49) U/L Total Protein (6.2-8.2) g/dL Albumin (3.8-4.9) g/dL Globulin (1.6-3.3) g/dL Albumin/Globulin Ratio (1.60-3.17) g/dL Urine Blood (Negative) Ur Leukocyte Esterase (Negative) Urine RBC (0-5) /hpf Urine WBC (0-5) /hpf Urine WBC Clumps (None) /hpf Urine Mucus (None) /hpf Microbiology - Last 24 Hours (Table) 03/20/22 17:38 Blood Culture - Preliminary Blood No Growth after 24 hours Assessment and Plan Plan: Assessment: 1. Hyponatremia. Hypervolemic. Sodium level 131 yesterday. Also component of poor solute intake. Urine sodium low at 24 and urine osmolality low at 71. TSH normal. Cortisol level was not low. On oral Lasix. Has also received Samsca this admission. 2. Right adrenal mass suggestive of benign adrenal adenoma on CAT scan done 03/09/2022. Doubt hyperaldosteronism state as patient has no history of hypertension and blood pressure is fairly well controlled without any antihypertensive meds. Cortisol level normal. Serum aldosterone 5.1. Renin less than 2.1. Plasma metanephrines negative. 3. Metabolic alkalosis secondary to bicarb supplementation and diuresis. Bicarb supplementation stopped 03/09/2022. Stable. 4. Central spinal cord stenosis. Surgery to be done outpatient. 5. Anemia. Concern for GI bleed. EGD showed mild gastritis without any acute bleed. Colonoscopy showed moderate diverticulosis. Hemoglobin 8.0 yesterday. Iron deficiency noted. Status post IV iron. 6. Diabetes mellitus. 7. Fluid overload. Improved with diuresis. 8. Hypokalemia from diuresis. Replaced. Better. 9. UTI. Urine culture positive for Enterobacter and Betty. s/p antibiotics. Plan: Maintain oral Lasix. Okay to DC Zee catheter from nephrology standpoint. Blood sugar control. Will use Samsca as needed. Morning labs pending. Sodium level not improved, will give Samsca.
[2022-03-22] MEDS: PANTOPRAZOLE 40 MG/10 ML VIAL IVP SCH ×2 (10:39→19:57)
[2022-03-22] MEDS: polyethylene glycoL 3350 17 GM POWD.PACK PO SCH (10:39)
[2022-03-22 11:27] LABS: Basophils # (A) 0.06 X 10*3/uL (0.00-0.10); Basophils % (A) 0.6 %; Eosinophils # (A) 0.12 X 10*3/uL (0.04-0.35); Eosinophils % (A) 1.2 %; HCT 25.7 % (39.6-50.0); HGB 8.1 g/dL (13.0-17.0); Immature Grans, Automated 0.4 %; Lymphocytes # (A) 1.35 X 10*3/uL (0.90-5.00); Lymphocytes % (A) 13.3 %; MCH 27.1 pg (27.0-32.0); MCHC 31.5 g/dL (32.0-37.0); Mean Platelet Volume 8.7 fL (9.5-12.2); Monocytes # (A) 0.72 X 10*3/uL (0.20-1.00); Monocytes % (A) 7.1 %; NRBC Per 100 WBC 0 /100 WBCS (0.0-0.0); Neutrophils # (A) 7.83 X 10*3/uL (1.80-7.70); Neutrophils % (A) 77.4 %; Platelet Count 460 X 10*3/uL (140-440); RBC 2.99 X 10*6/uL (4.40-5.60); RDW 14.6 % (11.5-14.5); WBC 10.12 X 10*3/uL (4.50-10.00)
--- NOTE | 2022-03-22 11:31 | P.PN ---
Subjective Progress Note Date: 03/22/22 CHIEF COMPLAINT: Anemia and black stool HISTORY OF PRESENT ILLNESS: Patient status post colonoscopy with digital disimpaction. Results showed mild diverticulosis and fecal impaction. Sigmoid colon did reveal mild diverticular changes. Patient had EGD completed on 03/09/22 showing mild antral gastritis, mild esophagitis and no evidence of any upper GI bleed. Patient has no new complaints. He is tolerating diet. Patient does not ambulate. Patient reports no bowel movement since colonoscopy. Denies any abdominal pain. Denies any nausea or vomiting. He is having flatus. Afebrile. WBC 10.12 hemoglobin 8.1 and stable platelets 460 Patient seen and examined with Dr. al PHYSICAL EXAM: VITAL SIGNS: Reviewed. GENERAL: Well-developed in no acute distress. HEENT: No sclera icterus. Extraocular movements grossly intact. Moist buccal mucosa. Head is atraumatic, normocephalic. ABDOMEN: Soft. Nondistended. NEUROLOGIC: Alert and oriented. Cranial nerves II through XII grossly intact. ASSESSMENT: 1. Anemia with black tarry stool 2. Fecal impaction status post disimpaction 3. Incidental finding of hydropic gallbladder with cholelithiasis 4. Central spinal cord stenosis at L4 to L5 with bilateral lower extremity weakness 5. Sacral decubitus ulcer PLAN: -Patient is stable for discharge from surgical standpoint when medically cleared -No plans for debridement for sacral decubitus ulcer -Continue offloading -Continue protective dressing to sacral decubitus ulcer -Antibiotics per infectious disease -Continue stool softeners. MiraLAX added for constipation. Physician Radio Producer note has been reviewed by physician. Signing provider agrees with the documented findings, assessment, and plan of care. Objective - Vital Signs Vital signs: Vital Signs Temp 99.5 F 03/22/22 02:58 Pulse 78 03/22/22 07:25 Resp 16 03/22/22 07:25 BP 107/67 03/22/22 07:25 Pulse Ox 100 03/22/22 07:25 FiO2 21 03/04/22 07:22 Intake & Output 03/21/22 03/22/22 03/22/22 18:59 06:59 18:59 Intake Total 1200 700 Output Total 1800 Balance -600 700 Intake: Oral 1200 700 Output: Urine 1800 Other: Voiding Method Indwelling Catheter External Catheter # Voids 450 # Bowel Movements 0 - Labs CBC & Chem 7: 03/22/22 07:07 03/21/22 07:24 Labs: Abnormal Lab Results - Last 24 Hours (Table) 03/21/22 03/21/22 03/21/22 Range/Units 07:24 11:35 15:00 WBC (4.50-10.00) X 10*3/uL RBC (4.40-5.60) X 10*6/uL Hgb (13.0-17.0) g/dL Hct (39.6-50.0) % MCHC (32.0-37.0) g/dL RDW (11.5-14.5) % Plt Count (140-440) X 10*3/uL MPV (9.5-12.2) fL Neutrophils # (1.80-7.70) X 10*3/uL Sodium 131 L (135-145) mmol/L Chloride 94 L (96-109) mmol/L Carbon Dioxide 31.7 H (20.0-27.5) mmol/L Anion Gap 4.80 L (10.00-18.00) mmol/L Creatinine 0.5 L (0.6-1.5) mg/dL BUN/Creatinine Ratio 22.33 H (12.00-20.00) Ratio Glucose 178 H (70-110) mg/dL POC Glucose (mg/dL) 200 H (70-110) mg/dL Calcium 7.9 L (8.7-10.3) mg/dL Total Bilirubin 0.20 L (0.30-1.20) mg/dL AST 12 L (14-35) U/L ALT 9 L (10-49) U/L Total Protein 5.8 L (6.2-8.2) g/dL Albumin 2.3 L (3.8-4.9) g/dL Globulin 3.5 H (1.6-3.3) g/dL Albumin/Globulin Ratio 0.66 L (1.60-3.17) g/dL Urine Blood Small H (Negative) Ur Leukocyte Esterase Large H (Negative) Urine RBC 19 H (0-5) /hpf Urine WBC 176 H (0-5) /hpf Urine WBC Clumps Few H (None) /hpf Urine Mucus Rare H (None) /hpf 03/21/22 03/21/2203/22/22 Range/Units 16:41 21:49 06:37 WBC (4.50-10.00) X 10*3/uL RBC (4.40-5.60) X 10*6/uL Hgb (13.0-17.0) g/dL Hct (39.6-50.0) % MCHC (32.0-37.0) g/dL RDW (11.5-14.5) % Plt Count (140-440) X 10*3/uL MPV (9.5-12.2) fL Neutrophils # (1.80-7.70) X 10*3/uL Sodium (135-145) mmol/L Chloride (96-109) mmol/L Carbon Dioxide (20.0-27.5) mmol/L Anion Gap (10.00-18.00) mmol/L Creatinine (0.6-1.5) mg/dL BUN/Creatinine Ratio (12.00-20.00) Ratio Glucose (70-110) mg/dL POC Glucose (mg/dL) 232 H 287 H 193 H (70-110) mg/dL Calcium (8.7-10.3) mg/dL Total Bilirubin (0.30-1.20) mg/dL AST (14-35) U/L ALT (10-49) U/L Total Protein (6.2-8.2) g/dL Albumin (3.8-4.9) g/dL Globulin (1.6-3.3) g/dL Albumin/Globulin Ratio (1.60-3.17) g/dL Urine Blood (Negative) Ur Leukocyte Esterase (Negative) Urine RBC (0-5) /hpf Urine WBC (0-5) /hpf Urine WBC Clumps (None) /hpf Urine Mucus (None) /hpf 03/22/22 Range/Units 07:07 WBC 10.12 H (4.50-10.00) X 10*3/uL RBC 2.99 L (4.40-5.60) X 10*6/uL Hgb 8.1 L (13.0-17.0) g/dL Hct 25.7 L (39.6-50.0) % MCHC 31.5 L (32.0-37.0) g/dL RDW 14.6 H (11.5-14.5) % Plt Count 460 H (140-440) X 10*3/uL MPV 8.7 L (9.5-12.2) fL Neutrophils # 7.83 H (1.80-7.70) X 10*3/uL Sodium (135-145) mmol/L Chloride (96-109) mmol/L Carbon Dioxide (20.0-27.5) mmol/L Anion Gap (10.00-18.00) mmol/L Creatinine (0.6-1.5) mg/dL BUN/Creatinine Ratio (12.00-20.00) Ratio Glucose (70-110) mg/dL POC Glucose (mg/dL) (70-110) mg/dL Calcium (8.7-10.3) mg/dL Total Bilirubin (0.30-1.20) mg/dL AST (14-35) U/L ALT (10-49) U/L Total Protein (6.2-8.2) g/dL Albumin (3.8-4.9) g/dL Globulin (1.6-3.3) g/dL Albumin/Globulin Ratio (1.60-3.17) g/dL Urine Blood (Negative) Ur Leukocyte Esterase (Negative) Urine RBC (0-5) /hpf Urine WBC (0-5) /hpf Urine WBC Clumps (None) /hpf Urine Mucus (None) /hpf Microbiology - Last 24 Hours (Table) 03/21/22 15:00 Urine Culture - Preliminary Urine,Voided 03/20/22 17:38 Blood Culture - Preliminary Blood No Growth after 24 hours
[2022-03-22 11:42] LABS: African American GFR (CKD) 136.3 (60.0-200.0); Anion Gap 6.5 mmol/L (10.00-18.00); BUN/Creat Ratio 21.65 Ratio (12.00-20.00); Blood Urea Nitrogen 10.5 mg/dL (9.0-27.0); Carbon Dioxide 30.8 mmol/L (20.0-27.5); Non-African American GFR(CKD) 117.6 (60.0-200.0); Potassium 4.5 mmol/L (3.5-5.5)
[2022-03-22 11:43] LABS: Glucose,Whole Blood 281 mg/dL (70-110)
[2022-03-22] MEDS: LACTATED RINGERS 1,000 ML IV SCH ×2 (11:48)
[2022-03-22] MEDS ORDERED: TOLVAPTAN 15 MG 1/2 TABLET PO ONE (14:17)
[2022-03-22 16:43] LABS: Glucose,Whole Blood 219 mg/dL (70-110)
[2022-03-22] MEDS: ACETAMINOPHEN TAB 325 MG TAB PO PRN (19:56)
[2022-03-22 20:57] LABS: Glucose,Whole Blood 166 mg/dL (70-110)
[2022-03-23] MEDS: CEFEPIME 2 GM in SODIUM CHLORIDE 0.9% 100 ML IVPB SCH ×3 (00:47→15:57)
[2022-03-23 06:13] LABS: Glucose,Whole Blood 231 mg/dL (70-110)
--- NOTE | 2022-03-23 06:21 | P.PN ---
Subjective Progress Note Date: 03/22/22 This is a 62-year-old patient, follows with Dr. Mendez. Chronic stable medical conditions include ADHD, herniated disc lower back, smoker. Patient's son at the bedside. Patient yesterday took his medication was going to the bathroom and the son noticed that he was feeling looking weak. He became less r esponsive. Never passed out. Shaky. No fever or chills reported. EMS was called out. Patient is found to be in atrial fibrillation with rapid ventricular rate. In the ER started on IV heparin, given adenosine, later put on IV Cardizem. Also found to be in DKA. Put on insulin drip. Potassium was very low NG tube had to be pacemaker placement. Tired. Most of the history of pain medicine at the bedside. Patient rather tired and lethargic. Admitted with new onset of atrial fibrillation uncontrolled, diabetic ketoacidosis, acute metabolic encephalopathy, severe hypokalemia. Started on Cardizem drip, IV heparin, insulin drip. NG tube was placed for potassium replacement. March 03: ICU: Patient went back into sinus rhythm. Did have 3-4 minutes burst of A. fib with rapid ventricular rate and rhythm back in sinus rhythm. IV heparin is being changed over to subcu Lovenox 70 mg every 12. Insulin drip is discontinued. Put on Levemir 10 units. NG tube in place. Potassium being replaced. Still patient is rather lethargic. We'll get a computed tomography scan of the brain. And EEG. March 04: ICU: Remains in sinus rhythm. Has been off Cardizem drip. Slightly more awake but still lethargic. Attempted to answer questions. Potassium down to 2.7. Potassium being replaced. At magnesium. By mouth amiodarone. On IV ceftriaxone for possible UTI. Sinus rhythm. Stop Catapres increase Lopressor to 100 mg twice a day. Check ammonia level. Phosphorus being replaced. Consult neurology. CT brain negative for stroke. EEG results pending. March 05: ICU. Laying in bed. Weak. EEG showed encephalopathy. Weakness in all the limbs. Just ordered able to lift his arms. [place] to be from electrolyte abnormalities. Able to answer questions slowly. Did tolerate some ice chips. Nurse will try to feed the patient. Lethargic but more awake. PTOT consulted. Unstageable bluish decolorization of the sacrum and heels. NG tube discontinued. IV fluids. 03/06/2020: Patient remains in the ICU improving slowly and gradually. Still had fever yesterday of 100.7, no more fever today. Other vitals are stable. Patient remains on ceftriaxone and he is been treated for UTI with Enterobacter. He still has fever as of yesterday therefore we will check renal ultrasound. Corcalcitonin 1.03, His altered mentation most likely is secondary to metabolic/toxic encephalopathy and UTI, neurologist on the case and he ordered MRI of the thoracolumbar spine to rule out spinal stenosis, results showing multilevel lumbar spinal stenosis but is mild and there is no spinal stenosis of the thoracic spine. Cardiology the case for new-onset A. fib, currently on Lovenox and amiodarone and rate controlled. Distal on IV fluids under lactate 125 Ulcers on Protonix 40 mg oral twice a day and Lovenox 70 mg twice daily. Glucose controlled on Levemir 14 units. His hemoglobin A1c is 12.9% and his DKA on admission resolved 03/07/2022 Patient still feels generally weak and lethargic. However he has good appetite. He denies chest pain or abdominal pain. No dyspnea. He looks comfortable in bed. He had 1 small bowel movement, no diarrhea. Zee catheter in place with yellow urine. Patient procalcitonin significantly improved down to 0.15, however his culture showed Enterobacter resistant to ceftriaxone. Patient currently on oral Levaquin. We going to consult infectious disease team. WBC is 11.3. Sodium 129. Patient fever on admission has subsided since then. Neurologist on the case and recommended EMG and nerve conduction study as an outpatient. Patient currently on Lovenox 70 mg twice a day, Levemir insulin 14 units and amiodarone. Also he is on oral Protonix twice daily and IV fluids under lactate at 125 Patient tolerates some diet, lower rate elected down to 75 mL/h renal ultrasound order, follow-up results 03/08/2022 Patient is seen and evaluated in follow-up this morning with multiple medical consultations including neurology, pulmonary, infectious disease, orthopedics following. Plan is for possible lumbar decompression sometime this week. Have consulted general surgery as per nursing report patient had a large dark tarry stool this morning. Hemoglobin is stable at 9.7. Patient's sodium is 129 with a potassium of 3.7 current creatinine is stable at 0.42. Blood sugars have been elevated and will continue current regimen. WBC remains elevated and patient is maintained on cefepime and will continue. Oral intake continues to be fair to poor and patient continues to report back pain. Patient has been febrile. Patient denies chest pain or shortness of breath. Patient is extremely lethargic with generalized edema noted throughout. Will consult nephrology for hyponatremia 03/09/2022 Patient is seen and evaluated in follow-up this morning. Multiple medical consultations following including orthopedics, general surgery, nephrology, pulmonary, and infectious disease. Plan was for tentative decompression surgery with orthopedics although sodium continues to be low and nursing reported dark tarry stools and is being evaluated with EGD/colonoscopy that is to be done on . Patient will start bowel prep tomorrow and will monitor closely of labs. Abdomen ultrasound was ordered as well and patient is continue with i ndwelling Zee catheter. Patient currently maintained on antibiotics and will continue. Patient is maintained on clear liquids and tolerating appears more awake and alert than yesterday. Patient continues to be weak and denies chest pain or shortness of breath. Patient labs currently pending and nephrology is following for hyponatremia and was started on Lasix. 03/10/2022: I resumed care of the patient today Tolerating clear liquids. Tired. Pending surgery-Dr. Newton . Back pain controlled. Patient's had black starry stools. For colonoscopy per Dr. Pabon. 03/11/2022: Patient had soft brown stool today. Some abdominal discomfort. Pending colonoscopy today. Received bowel preparation. Patient received 1 dose of Samsca yesterday. Also IV Ferrlecit. 03/12/2022. Colonoscopic could not be done yesterday because of poor bowel preparation. Dark stool was encountered during start of colonoscopy. Patient back on clear liquids. Now rescheduled for Tuesday. 03/13/2022: Patient had bowel preparation done tomorrow for colonoscopy Tuesday. Tolerating liquid diet. 03/14/2022: On liquid diet. Getting bowel preparation for tomorrow. Otherwise stable. Discussed with patient. 03/15/2022: Complaining of mid back pain. Received bowel prep yesterday. Had 2- 3 bowel movements. Possible endoscopy today. Awaiting decision from Dr. Newton for lumbar surgery either this admission nor following some rehab 03/16/2022: wentdown for colonoscopy. Yesterday. Found to have large brown stool in the vault. Procedure canceled. Being rescheduled for . 03/17/2022: Liquid diet. Scheduled for colonoscopic . Intermittent back pain. Bowel prep for surgery. 03/18/2022: Underwent colonoscopy today. Unremarkable. Discussed with Dr. Santana from ID. Has a sacral wound. Like Dr. Pabon to debrided the same. Given that not a good idea to patient have lumbar surgery at this point. This should be postponed for later. 03/19/2022: Oral intake fair. Discussed with ID. Feels patient needs debridement. Discussed with Dr. Pabon. He feels that this point would not help. ID and Dr. Pabon will further discuss. Discussed with Dr. Newton after discussing with ID that present time not a good idea to reduce lumbar surgery this would be postponed. Told patient 03/21/2022 Patient is seen today with multiple medical consultations following. Continued on local wound care with general surgery following. Also continues on IV cefepime with ID following closely. Follow up on labs and continue to monitor closely. Will need to discuss with consultations about treatment plan moving forward. Afebrile. Continue with current medications and encourage oral intake. PT/OT to follow. 03/22/2022 Patient is seen in follow up this morning and continued on IV cefepime and awaiting urine culture. ID, nephrology, ortho, and general surgery following and continues with low grade temps. No plans for orthopedic surgical intervention at this time. Surgery reports no debridement of the wound. Continue with local wound care. Patient oral intake is fair and will continue to follow. Active Medications Acetaminophen (Acetaminophen Tab 325 Mg Tab) 650 mg PO Q6HR PRN PRN Reason: Mild Pain or Fever > 100.5 Last Admin: 03/22/22 19:56 Dose: 650 mg Hydrocodone Bitart/Acetaminophen (Hydrocodone/Apap 7.5-325mg 1 Each Tab) 1 each PO Q6HR PRN PRN Reason: Pain Last Admin: 03/22/22 10:49 Dose: 1 each Al Hydroxide/Mg Hydroxide (Mag Hydrox/Al Hydrox/Simeth 30 Ml Cup) 15 ml PO Q6HR PRN PRN Reason: Indigestion Last Admin: 03/20/22 08:44 Dose: 15 ml Amiodarone HCl (Amiodarone 200 Mg Tab) 200 mg PO DAILY [facility] Last Admin: 03/22/22 07:33 Dose: 200 mg Dextrose/Water (Dextrose 50% Syringe 50 Ml) 25 ml IVP PER PROTOCOL PRN; Protocol PRN Reason: Hypoglycemia Last Admin: 03/11/22 16:43 Dose: 25 ml Dextrose/Water (Dextrose 50% Syringe 50 Ml) 50 ml IVP PER PROTOCOL PRN; Protocol PRN Reason: Hypoglycemia Docusate Sodium (Docusate 100 Mg Cap) 100 mg PO BID [facility] Last Admin: 03/22/22 19:56 Dose: 100 mg Folic Acid (Folic Acid 1 Mg Tab) 1 mg PO DAILY [facility] Last Admin: 03/22/22 07:33 Dose: 1 mg Furosemide (Furosemide 40 Mg Tab) 40 mg PO DAILY [facility] Last Admin: 03/22/22 07:32 Dose: 40 mg Lactated Ringer's (Lactated Ringers) 1,000 mls @ 20 mls/hr IV .Q24H [facility] Last Admin: 03/22/22 11:48 Dose: Not Given Lactated Ringer's (Lactated Ringers) 1,000 mls @ 20 mls/hr IV .Q24H [facility] Last Admin: 03/22/22 11:48 Dose: Not Given Cefepime HCl 2 gm/ Sodium (Chloride) 100 mls @ 25 mls/hr IVPB Q8HR [facility]; Protocol Last Admin: 03/23/22 00:47 Dose: 25 mls/hr Insulin Aspart (Insulin Aspart (Novolog) 100 Unit/Ml Vial) 0 unit SQ ACHS [facility]; Protocol Last Admin: 03/22/22 21:19 Dose: 2 unit Insulin Detemir (Insulin Detemir (Levemir) 100 Unit/Ml Syr) 14 unit SQ DAILY@0700 [facility] Last Admin: 03/22/22 07:32 Dose: 14 unit Lidocaine HCl (Lidocaine 1% (10mg/Ml) For Iv Start) 0.1 ml INTRADERMA PER NV OTOCOL PRN PRN Reason: IV Start Metoprolol Tartrate (Metoprolol Tartrate 50 Mg Tab) 50 mg PO BID [facility] Last Admin: 03/22/22 19:56 Dose: 50 mg Miscellaneous Information (Potassium Replacement Protocol 1 Each Misc) 1 each MISCELLANE DAILY PRN; Protocol PRN Reason: Per Protocol Naloxone HCl (Naloxone 0.4 Mg/Ml 1 Ml Vial) 0.2 mg IV Q2M PRN PRN Reason: Opioid Reversal Nicotine (Nicotine 21mg/24hr Patch) 1 patch TRANSDERM DAILY [facility] Last Admin: 03/22/22 07:32 Dose: 1 patch Ondansetron HCl (Ondansetron 4 Mg/2 Ml Vial) 4 mg IVP Q8HR PRN PRN Reason: Nausea And Vomiting Pantoprazole Sodium (Pantoprazole 40 Mg/10 Ml Vial) 40 mg IVP BID [facility] Last Admin: 03/22/22 19:57 Dose: 40 mg Polyethylene Glycol (Polyethylene Glycol 3350 17 Gm Powd.Pack) 17 gm PO DAILY [facility] Last Admin: 03/22/22 10:39 Dose: 17 gm Senna (Sennosides 8.6 Mg Tab) 8.6 mg PO DAILY [facility] Last Admin: 03/22/22 07:32 Dose: 8.6 mg Physical examination: GENERAL: Awake, laying in bed, wrapped up in layers of blankets EYES: Pupils equal. Conjunctiva normal. HEENT: External appearance of nose and ears normal, oral cavity mucous membranes moist NECK: JVD not raised; masses not palpable. HEART: Heart sounds normal; no edema. LUNGS: Respiratory rate normal; decreased breath sounds. ABDOMEN: Soft, nontender, liver spleen not palpable, no masses palpable. Unstageble Sacral pressure ulcer PSYCH: Answering questions appropriately Assessment and plan: -Paroxysmal atrial fibrillation with a rapid ventricular rate, back in sinus rhythm -Diabetic ketoacidosis: Resolved -Black starry stools/acute GI bleed..: Resolved -Unstageable sacral, pressure ulcer, POA -Diabetes mellitus type 2, uncontrolled with hyperglycemia -Acute metabolic encephalopathy, multifactorial, better Computed tomography scan of brain unremarkable.. EEG-encephalopathy. No seizure.. Follow with Neurology -Severe hypokalemia: Better -Hypophosphatemia: Better -COPD in a current smoker -Chronic nicotine dependence, cigarette smoker -Possibly SIADH -L2 S1 laminectomy and decompression, with lower extremity weakness for central spinal cord stenosis. Surgery Per Dr. Newton: To be postponed, outpatient Plan: Multiple medical consultations following Continue local wound care ID following and continued on abx. Awaiting urine culture and patient continues with low grade temps. Need to discuss further with other consultations about treatment plan moving forward Continue to monitor accuchecks achs and continue current regimen. PT/OT to evaluate and planning on ECF Due to multiple complex medical issues, prognosis is guarded The impression and plan of care has been dictated as a scribe by Kaykay Polk, nurse practitioner as directed. Dr. Carlitos MD I have performed a history and examination and MDM of this patient, discussed the same with the dictator, and has been documented as a scribe. Based on total visit time, I have performed more than 50% of the visit. Any additional f indings or plans will be noted. Objective - Vital Signs Vital signs: Vital Signs Temp 99.5 F 03/22/22 02:58 Pulse 78 03/22/22 07:25 Resp 16 03/22/22 07:25 BP 107/67 03/22/22 07:25 Pulse Ox 100 03/22/22 07:25 FiO2 21 03/04/22 07:22 Intake & Output 03/21/22 03/22/22 03/22/22 18:59 06:59 18:59 Intake Total 1200 700 Output Total 1800 Balance -600 700 Intake: Oral 1200 700 Output: Urine 1800 Other: Voiding Method Indwelling Catheter # Voids 450 # Bowel Movements 0 - Labs CBC & Chem 7: 03/22/22 07:07 03/22/22 07:07 Labs: Abnormal Lab Results - Last 24 Hours (Table) 03/21/22 03/21/22 03/21/22 Range/Units 07:24 07:24 11:35 WBC 10.12 H (4.50-10.00) X 10*3/uL RBC 2.93 L (4.40-5.60) X 10*6/uL Hgb 7.9 L (13.0-17.0) g/dL Hct 25.8 L (39.6-50.0) % MCHC 30.6 L (32.0-37.0) g/dL MPV 8.8 L (9.5-12.2) fL Immature Gran # 0.05 H (0.00-0.04) X 10*3/uL Sodium 131 L (135-145) mmol/L Chloride 94 L (96-109) mmol/L Carbon Dioxide 31.7 H (20.0-27.5) mmol/L Anion Gap 4.80 L (10.00-18.00) mmol/L Creatinine 0.5 L (0.6-1.5) mg/dL BUN/Creatinine Ratio 22.33 H (12.00-20.00) Ratio Glucose 178 H (70-110) mg/dL POC Glucose (mg/dL) 200 H (70-110) mg/dL Calcium 7.9 L (8.7-10.3) mg/dL Total Bilirubin 0.20 L (0.30-1.20) mg/dL AST 12 L (14-35) U/L ALT 9 L (10-49) U/L Total Protein 5.8 L (6.2-8.2) g/dL Albumin 2.3 L (3.8-4.9) g/dL Globulin 3.5 H (1.6-3.3) g/dL Albumin/Globulin Ratio 0.66 L (1.60-3.17) g/dL Urine Blood (Negative) Ur Leukocyte Esterase (Negative) Urine RBC (0-5) /hpf Urine WBC (0-5) /hpf Urine WBC Clumps (None) /hpf Urine Mucus (None) /hpf 03/21/22 03/21/22 03/21/22 Range/Units 15:00 16:41 21:49 WBC (4.50-10.00) X 10*3/uL RBC (4.40-5.60) X 10*6/uL Hgb (13.0-17.0) g/dL Hct (39.6-50.0) % MCHC (32.0-37.0) g/dL MPV (9.5-12.2) fL Immature Gran # (0.00-0.04) X 10*3/uL Sodium (135-145) mmol/L Chloride (96-109) mmol/L Carbon Dioxide (20.0-27.5) mmol/L Anion Gap (10.00-18.00) mmol/L Creatinine (0.6-1.5) mg/dL BUN/Creatinine Ratio (12.00-20.00) Ratio Glucose (70-110) mg/dL POC Glucose (mg/dL) 232 H 287 H (70-110) mg/dL Calcium (8.7-10.3) mg/dL Total Bilirubin (0.30-1.20) mg/dL AST (14-35) U/L ALT (10-49) U/L Total Protein (6.2-8.2) g/dL Albumin (3.8-4.9) g/dL Globulin (1.6-3.3) g/dL Albumin/Globulin Ratio (1.60-3.17) g/dL Urine Blood Small H (Negative) Ur Leukocyte Esterase Large H (Negative) Urine RBC 19 H (0-5) /hpf Urine WBC 176 H (0-5) /hpf Urine WBC Clumps Few H (None) /hpf Urine Mucus Rare H (None) /hpf 03/22/22 Range/Units 06:37 WBC (4.50-10.00) X 10*3/uL RBC (4.40-5.60) X 10*6/uL Hgb (13.0-17.0) g/dL Hct (39.6-50.0) % MCHC (32.0-37.0) g/dL MPV (9.5-12.2) fL Immature Gran # (0.00-0.04) X 10*3/uL Sodium (135-145) mmol/L Chloride (96-109) mmol/L Carbon Dioxide (20.0-27.5) mmol/L Anion Gap (10.00-18.00) mmol/L Creatinine (0.6-1.5) mg/dL BUN/Creatinine Ratio (12.00-20.00) Ratio Glucose (70-110) mg/dL POC Glucose (mg/dL) 193 H (70-110) mg/dL Calcium (8.7-10.3) mg/dL Total Bilirubin (0.30-1.20) mg/dL AST (14-35) U/L ALT (10-49) U/L Total Protein (6.2-8.2) g/dL Albumin (3.8-4.9) g/dL Globulin (1.6-3.3) g/dL Albumin/Globulin Ratio (1.60-3.17) g/dL Urine Blood (Negative) Ur Leukocyte Esterase (Negative) Urine RBC (0-5) /hpf Urine WBC (0-5) /hpf Urine WBC Clumps (None) /hpf Urine Mucus (None) /hpf Microbiology - Last 24 Hours (Table) 03/21/22 15:00 Urine Culture - Preliminary Urine,Voided 03/20/22 17:38 Blood Culture - Preliminary Blood No Growth after 24 hours
[2022-03-23] MEDS: INSULIN ASPART (NovoLOG) 100 UNIT/ML VIAL SQ SCH ×4 (06:47→22:14)
[2022-03-23] MEDS: INSULIN DETEMIR (LEVEMIR) 100 UNIT/ML SYR SQ SCH (06:47)
[2022-03-23] MEDS: HYDROcodone/APAP 7.5-325MG 1 EACH TAB PO PRN ×3 (06:51→22:12)
[2022-03-23 07:41] LABS: Basophils # (A) 0.1 k/uL (0-0.2); Basophils % (A) 1 %; Eosinophils # (A) 0.2 k/uL (0-0.7); Eosinophils % (A) 2 %; HGB 8.7 gm/dL (13.0-17.5); Hypochromasia Moderate; Lymphocytes % (A) 10 %; MCHC 31.1 g/dL (31.0-37.0); MCV 86.8 fL (80.0-100.0); Mean Platelet Volume 7.3; Monocytes # (A) 0.5 k/uL (0-1.0); Monocytes % (A) 6 %; Neutrophils # (A) 7.5 k/uL (1.3-7.7); Neutrophils % (A) 80 %; Platelet Count 525 k/uL (150-450); RBC 3.22 m/uL (4.30-5.90); RDW 15.2 % (11.5-15.5); WBC 9.4 k/uL (3.8-10.6)
[2022-03-23] MEDS: FOLIC ACID 1 MG TAB PO SCH (07:47)
[2022-03-23] MEDS: DOCUSATE 100 MG CAP PO SCH ×2 (07:47→22:12)
[2022-03-23] MEDS: METOPROLOL TARTRATE 50 MG TAB PO SCH ×2 (07:47→22:12)
[2022-03-23] MEDS: FUROSEMIDE 40 MG TAB PO SCH (07:47)
[2022-03-23] MEDS: SENNOSIDES 8.6 MG TAB PO SCH (07:47)
[2022-03-23] MEDS: polyethylene glycoL 3350 17 GM POWD.PACK PO SCH (07:47)
[2022-03-23] MEDS: AMIODARONE 200 MG TAB PO SCH (07:47)
[2022-03-23] MEDS: NICOTINE 21MG/24HR PATCH TRANSDERM SCH (07:48)
[2022-03-23] MEDS: PANTOPRAZOLE 40 MG/10 ML VIAL IVP SCH ×2 (07:58→22:14)
[2022-03-23] MEDS: LACTATED RINGERS 1,000 ML IV SCH ×2 (10:25)
[2022-03-23 11:06] LABS: Glucose,Whole Blood 299 mg/dL (70-110)
[2022-03-23 11:32] LABS: African American GFR (CKD) 134.6 (60.0-200.0); Anion Gap 4.5 mmol/L (10.00-18.00); BUN/Creat Ratio 14.6 Ratio (12.00-20.00); Blood Urea Nitrogen 7.3 mg/dL (9.0-27.0); Calcium 8.2 mg/dL (8.7-10.3); Carbon Dioxide 30.5 mmol/L (20.0-27.5); Magnesium 2.1 mg/dL (1.5-2.4); Non-African American GFR(CKD) 116.1 (60.0-200.0); Potassium 4.5 mmol/L (3.5-5.5)
--- NOTE | 2022-03-23 12:03 | P.PN ---
Subjective Patient is seen in follow-up for hyponatremia. Sodium level 131 today. On oral Lasix. Receive Samsca yesterday. Nonoliguric. Has a Zee catheter. No active complaints. Blood pressure stable at 107/67. Vital signs are stable. General: Awake. No acute distress. HEENT: Head exam is unremarkable. LUNGS: Breath sounds decreased. HEART: Rate and Rhythm are regular. ABDOMEN: Soft, no distention. EXTREMITITES: Trace edema. Objective - Vital Signs Vital signs: Vital Signs Temp 98.6 F 03/23/22 08:00 Pulse 80 03/23/22 08:00 Resp 18 03/23/22 08:00 BP 136/75 03/23/22 08:00 Pulse Ox 99 03/23/22 08:00 FiO2 21 03/04/22 07:22 Intake & Output 03/22/22 03/23/22 03/23/22 18:59 06:59 18:59 Intake Total 1080 450 Output Total 1100 2800 1000 Balance -0 -1000 Weight 76.3 kg Intake: Oral 1080 450 Output: Urine 1100 2800 1000 Other: Voiding Method External Catheter External Catheter External Catheter # Bowel Movements 1 1 - Labs CBC & Chem 7: 03/23/22 07:11 03/23/22 07:11 Labs: Abnormal Lab Results - Last 24 Hours (Table) 03/22/22 03/22/22 03/23/22 Range/Units 16:41 20:56 06:11 RBC (4.30-5.90) m/uL Hgb (13.0-17.5) gm/dL Hct (39.0-53.0) % Plt Count (150-450) k/uL Sodium (135-145) mmol/L Carbon Dioxide (20.0-27.5) mmol/L Anion Gap (10.00-18.00) mmol/L BUN (9.0-27.0) mg/dL Creatinine (0.6-1.5) mg/dL Glucose (70-110) mg/dL POC Glucose (mg/dL) 219 H 166 H 231 H (70-110) mg/dL Calcium (8.7-10.3) mg/dL 03/23/22 03/23/22 03/23/22 Range/Units 07:11 07:11 11:04 RBC 3.22 L (4.30-5.90) m/uL Hgb 8.7 L (13.0-17.5) gm/dL Hct 28.0 L (39.0-53.0) % Plt Count 525 H (150-450) k/uL Sodium 131 L (135-145) mmol/L Carbon Dioxide 30.5 H (20.0-27.5) mmol/L Anion Gap 4.50 L (10.00-18.00) mmol/L BUN 7.3 L (9.0-27.0) mg/dL Creatinine 0.5 L (0.6-1.5) mg/dL Glucose 201 H (70-110) mg/dL POC Glucose (mg/dL) 299 H (70-110) mg/dL Calcium 8.2 L (8.7-10.3) mg/dL Microbiology - Last 24 Hours (Table) 03/21/22 15:00 Urine Culture - Final Urine,Voided 03/22/22 07:07 Blood Culture - Preliminary Blood No Growth after 24 hours 03/20/22 17:38 Blood Culture - Preliminary Blood No Growth after 48 hours Assessment and Plan Plan: Assessment: 1. Hyponatremia. Hypervolemic. Sodium level 131. Also component of poor solute intake. Urine sodium low at 24 and urine osmolality low at 71. TSH normal. Cortisol level was not low. On oral Lasix. Has also received Samsca this admission. 2. Right adrenal mass suggestive of benign adrenal adenoma on CAT scan done 03/09/2022. Doubt hyperaldosteronism state as patient has no history of hypertension and blood pressure is fairly well controlled without any antihypertensive meds. Cortisol level normal. Serum aldosterone 5.1. Renin less than 2.1. Plasma metanephrines negative. 3. Metabolic alkalosis secondary to bicarb supplementation and diuresis. Bicarb supplementation stopped 03/09/2022. Stable. 4. Central spinal cord stenosis. Surgery to be done outpatient. 5. Anemia. Concern for GI bleed. EGD showed mild gastritis without any acute bleed. Colonoscopy showed moderate diverticulosis. Hemoglobin 8.0 yesterday. Iron deficiency noted. Status post IV iron. 6. Diabetes mellitus. 7. Fluid overload. Improved with diuresis. 8. Hypokalemia from diuresis. Replaced. Stable. 9. UTI. Urine culture positive for Enterobacter and Betty. s/p antibiotics. Plan: Maintain oral Lasix. Zee catheter removed. Now has external catheter. Blood sugar control. Will use Samsca as needed. Add 1500 mL fluid restriction.
--- NOTE | 2022-03-23 13:30 | XR ---
EXAMINATION TYPE: XR chest 1V DATE OF EXAM: 03/23/2022 COMPARISON: Chest x-ray 03/20/2022 HISTORY: Fever TECHNIQUE: Single frontal view of the chest is obtained. FINDINGS: There is no focal air space opacity, pleural effusion, or pneumothorax seen. The cardiac silhouette size is within normal limits. There are overlying leads. Patient is rotated. The osseous structures are intact. IMPRESSION: No acute process.
--- NOTE | 2022-03-23 14:47 | P.PN ---
Subjective Progress Note Date: 03/23/22 CHIEF COMPLAINT: Anemia and black stool HISTORY OF PRESENT ILLNESS: Patient status post colonoscopy with digital disimpaction. Results showed mild diverticulosis and fecal impaction. Sigmoid colon did reveal mild diverticular changes. Patient had EGD completed on 03/09/22 showing mild antral gastritis, mild esophagitis and no evidence of any upper GI bleed. Patient has no new complaints. He is tolerating diet. Patient does not ambulate. Patient reports having bowel movements. He did have a temp of 101.5. Infectious disease is following they've ordered blood cultures. Chest x-ray shows no acute process. WBC 9.4 Patient seen and examined with Dr. al PHYSICAL EXAM: VITAL SIGNS: Reviewed. GENERAL: Well-developed in no acute distress. HEENT: No sclera icterus. Extraocular movements grossly intact. Moist buccal mucosa. Head is atraumatic, normocephalic. ABDOMEN: Soft. Nondistended. NEUROLOGIC: Alert and oriented. Cranial nerves II through XII grossly intact. Skin: Patient has a sacral decubitus ulcer with necrotic tissue. no drainage ASSESSMENT: 1. Anemia with black tarry stool 2. Fecal impaction status post disimpaction 3. Incidental finding of hydropic gallbladder with cholelithiasis 4. Central spinal cord stenosis at L4 to L5 with bilateral lower extremity weakness 5. Sacral decubitus ulcer 6. Constipation improved PLAN: -No plans for debridement for sacral decubitus ulcer -Continue offloading -Continue protective dressing to sacral decubitus ulcer -Antibiotics per infectious disease -Continue stool softeners and miralax Physician Room Service Attendant note has been reviewed by physician. Signing provider agrees with the documented findings, assessment, and plan of care. Objective - Vital Signs Vital signs: Vital Signs Temp 98.6 F 03/23/22 08:00 Pulse 80 03/23/22 08:00 Resp 18 03/23/22 08:00 BP 136/75 03/23/22 08:00 Pulse Ox 99 03/23/22 08:00 FiO2 21 03/04/22 07:22 Intake & Output 03/22/22 03/23/22 03/23/22 18:59 06:59 18:59 Intake Total 1080 450 Output Total 1100 2800 1000 Balance -2478 -1000 Weight 76.3 kg Intake: Oral 1080 450 Output: Urine 1100 2800 1000 Other: Voiding Method External Catheter External Catheter External Catheter # Bowel Movements 1 1 1 - Labs CBC & Chem 7: 03/23/22 07:11 03/23/22 07:11 Labs: Abnormal Lab Results - Last 24 Hours (Table) 03/22/22 03/22/22 03/23/22 Range/Units 16:41 20:56 06:11 RBC (4.30-5.90) m/uL Hgb (13.0-17.5) gm/dL Hct (39.0-53.0) % Plt Count (150-450) k/uL Sodium (135-145) mmol/L Carbon Dioxide (20.0-27.5) mmol/L Anion Gap (10.00-18.00) mmol/L BUN (9.0-27.0) mg/dL Creatinine (0.6-1.5) mg/dL Glucose (70-110) mg/dL POC Glucose (mg/dL) 219 H 166 H 231 H (70-110) mg/dL Calcium (8.7-10.3) mg/dL 03/23/22 03/23/22 03/23/22 Range/Units 07:11 07:11 11:04 RBC 3.22 L (4.30-5.90) m/uL Hgb 8.7 L (13.0-17.5) gm/dL Hct 28.0 L (39.0-53.0) % Plt Count 525 H (150-450) k/uL Sodium 131 L (135-145) mmol/L Carbon Dioxide 30.5 H (20.0-27.5) mmol/L Anion Gap 4.50 L (10.00-18.00) mmol/L BUN 7.3 L (9.0-27.0) mg/dL Creatinine 0.5 L (0.6-1.5) mg/dL Glucose 201 H (70-110) mg/dL POC Glucose (mg/dL) 299 H (70-110) mg/dL Calcium 8.2 L (8.7-10.3) mg/dL Microbiology - Last 24 Hours (Table) 03/21/22 15:00 Urine Culture - Final Urine,Voided 03/22/22 07:07 Blood Culture - Preliminary Blood No Growth after 24 hours 03/20/22 17:38 Blood Culture - Preliminary Blood No Growth after 48 hours
[2022-03-23 16:50] LABS: Glucose,Whole Blood 157 mg/dL (70-110)
[2022-03-23 21:55] LABS: Glucose,Whole Blood 290 mg/dL (70-110)
[2022-03-24] MEDS: CEFEPIME 2 GM in SODIUM CHLORIDE 0.9% 100 ML IVPB SCH ×4 (00:14→23:59)
--- NOTE | 2022-03-24 05:34 | P.PN ---
Subjective Progress Note Date: 03/23/22 This is a 62-year-old patient, follows with Dr. Mendez. Chronic stable medical conditions include ADHD, herniated disc lower back, smoker. Patient's son at the bedside. Patient yesterday took his medication was going to the bathroom and the son noticed that he was feeling looking weak. He became less r esponsive. Never passed out. Shaky. No fever or chills reported. EMS was called out. Patient is found to be in atrial fibrillation with rapid ventricular rate. In the ER started on IV heparin, given adenosine, later put on IV Cardizem. Also found to be in DKA. Put on insulin drip. Potassium was very low NG tube had to be pacemaker placement. Tired. Most of the history of pain medicine at the bedside. Patient rather tired and lethargic. Admitted with new onset of atrial fibrillation uncontrolled, diabetic ketoacidosis, acute metabolic encephalopathy, severe hypokalemia. Started on Cardizem drip, IV heparin, insulin drip. NG tube was placed for potassium replacement. March 03: ICU: Patient went back into sinus rhythm. Did have 3-4 minutes burst of A. fib with rapid ventricular rate and rhythm back in sinus rhythm. IV heparin is being changed over to subcu Lovenox 70 mg every 12. Insulin drip is discontinued. Put on Levemir 10 units. NG tube in place. Potassium being replaced. Still patient is rather lethargic. We'll get a computed tomography scan of the brain. And EEG. March 04: ICU: Remains in sinus rhythm. Has been off Cardizem drip. Slightly more awake but still lethargic. Attempted to answer questions. Potassium down to 2.7. Potassium being replaced. At magnesium. By mouth amiodarone. On IV ceftriaxone for possible UTI. Sinus rhythm. Stop Catapres increase Lopressor to 100 mg twice a day. Check ammonia level. Phosphorus being replaced. Consult neurology. CT brain negative for stroke. EEG results pending. March 05: ICU. Laying in bed. Weak. EEG showed encephalopathy. Weakness in all the limbs. Just ordered able to lift his arms. [place] to be from electrolyte abnormalities. Able to answer questions slowly. Did tolerate some ice chips. Nurse will try to feed the patient. Lethargic but more awake. PTOT consulted. Unstageable bluish decolorization of the sacrum and heels. NG tube discontinued. IV fluids. 03/06/2020: Patient remains in the ICU improving slowly and gradually. Still had fever yesterday of 100.7, no more fever today. Other vitals are stable. Patient remains on ceftriaxone and he is been treated for UTI with Enterobacter. He still has fever as of yesterday therefore we will check renal ultrasound. Corcalcitonin 1.03, His altered mentation most likely is secondary to metabolic/toxic encephalopathy and UTI, neurologist on the case and he ordered MRI of the thoracolumbar spine to rule out spinal stenosis, results showing multilevel lumbar spinal stenosis but is mild and there is no spinal stenosis of the thoracic spine. Cardiology the case for new-onset A. fib, currently on Lovenox and amiodarone and rate controlled. Distal on IV fluids under lactate 125 Ulcers on Protonix 40 mg oral twice a day and Lovenox 70 mg twice daily. Glucose controlled on Levemir 14 units. His hemoglobin A1c is 12.9% and his DKA on admission resolved 03/07/2022 Patient still feels generally weak and lethargic. However he has good appetite. He denies chest pain or abdominal pain. No dyspnea. He looks comfortable in bed. He had 1 small bowel movement, no diarrhea. Araujo catheter in place with yellow urine. Patient procalcitonin significantly improved down to 0.15, however his culture showed Enterobacter resistant to ceftriaxone. Patient currently on oral Levaquin. We going to consult infectious disease team. WBC is 11.3. Sodium 129. Patient fever on admission has subsided since then. Neurologist on the case and recommended EMG and nerve conduction study as an outpatient. Patient currently on Lovenox 70 mg twice a day, Levemir insulin 14 units and amiodarone. Also he is on oral Protonix twice daily and IV fluids under lactate at 125 Patient tolerates some diet, lower rate elected down to 75 mL/h renal ultrasound order, follow-up results 03/08/2022 Patient is seen and evaluated in follow-up this morning with multiple medical consultations including neurology, pulmonary, infectious disease, orthopedics following. Plan is for possible lumbar decompression sometime this week. Have consulted general surgery as per nursing report patient had a large dark tarry stool this morning. Hemoglobin is stable at 9.7. Patient's sodium is 129 with a potassium of 3.7 current creatinine is stable at 0.42. Blood sugars have been elevated and will continue current regimen. WBC remains elevated and patient is maintained on cefepime and will continue. Oral intake continues to be fair to poor and patient continues to report back pain. Patient has been febrile. Patient denies chest pain or shortness of breath. Patient is extremely lethargic with generalized edema noted throughout. Will consult nephrology for hyponatremia 03/09/2022 Patient is seen and evaluated in follow-up this morning. Multiple medical consultations following including orthopedics, general surgery, nephrology, pulmonary, and infectious disease. Plan was for tentative decompression surgery with orthopedics although sodium continues to be low and nursing reported dark tarry stools and is being evaluated with EGD/colonoscopy that is to be done on . Patient will start bowel prep tomorrow and will monitor closely of labs. Abdomen ultrasound was ordered as well and patient is continue with i ndwelling Araujo catheter. Patient currently maintained on antibiotics and will continue. Patient is maintained on clear liquids and tolerating appears more awake and alert than yesterday. Patient continues to be weak and denies chest pain or shortness of breath. Patient labs currently pending and nephrology is following for hyponatremia and was started on Lasix. 03/10/2022: I resumed care of the patient today Tolerating clear liquids. Tired. Pending surgery-Dr. Newton . Back pain controlled. Patient's had black starry stools. For colonoscopy per Dr. Pabon. 03/11/2022: Patient had soft brown stool today. Some abdominal discomfort. Pending colonoscopy today. Received bowel preparation. Patient received 1 dose of Samsca yesterday. Also IV Ferrlecit. 03/12/2022. Colonoscopic could not be done yesterday because of poor bowel preparation. Dark stool was encountered during start of colonoscopy. Patient back on clear liquids. Now rescheduled for Tuesday. 03/13/2022: Patient had bowel preparation done tomorrow for colonoscopy Tuesday. Tolerating liquid diet. 03/14/2022: On liquid diet. Getting bowel preparation for tomorrow. Otherwise stable. Discussed with patient. 03/15/2022: Complaining of mid back pain. Received bowel prep yesterday. Had 2- 3 bowel movements. Possible endoscopy today. Awaiting decision from Dr. Newton for lumbar surgery either this admission nor following some rehab 03/16/2022: wentdown for colonoscopy. Yesterday. Found to have large brown stool in the vault. Procedure canceled. Being rescheduled for . 03/17/2022: Liquid diet. Scheduled for colonoscopic . Intermittent back pain. Bowel prep for surgery. 03/18/2022: Underwent colonoscopy today. Unremarkable. Discussed with Dr. Santana from ID. Has a sacral wound. Like Dr. Pabon to debrided the same. Given that not a good idea to patient have lumbar surgery at this point. This should be postponed for later. 03/19/2022: Oral intake fair. Discussed with ID. Feels patient needs debridement. Discussed with Dr. Pabon. He feels that this point would not help. ID and Dr. Pabon will further discuss. Discussed with Dr. Newton after discussing with ID that present time not a good idea to reduce lumbar surgery this would be postponed. Told patient 03/21/2022 Patient is seen today with multiple medical consultations following. Continued on local wound care with general surgery following. Also continues on IV cefepime with ID following closely. Follow up on labs and continue to monitor closely. Will need to discuss with consultations about treatment plan moving forward. Afebrile. Continue with current medications and encourage oral intake. PT/OT to follow. 03/22/2022 Patient is seen in follow up this morning and continued on IV cefepime and awaiting urine culture. ID, nephrology, ortho, and general surgery following and continues with low grade temps. No plans for orthopedic surgical intervention at this time. Surgery reports no debridement of the wound. Continue with local wound care. Patient oral intake is fair and will continue to follow. 03/23/2022 Patient this morning is sleeping but arousable. Appears lethargic and not eating very much. Patient continues to have intermittent low grade temps and chest xray is ordered. Patient is significantly weak and will need ecf. Case management following. No plans for surgical intervention of the wounds and to continue local wound care. Ortho to see patient outpatient for possible surgical intervention once more stable. Awaiting am labs. Active Medications Acetaminophen (Acetaminophen Tab 325 Mg Tab) 650 mg PO Q6HR PRN PRN Reason: Mild Pain or Fever > 100.5 Last Admin: 03/22/22 19:56 Dose: 650 mg Hydrocodone Bitart/Acetaminophen (Hydrocodone/Apap 7.5-325mg 1 Each Tab) 1 each PO Q6HR PRN PRN Reason: Pain Last Admin: 03/23/22 22:12 Dose: 1 each Al Hydroxide/Mg Hydroxide (Mag Hydrox/Al Hydrox/Simeth 30 Ml Cup) 15 ml PO Q6HR PRN PRN Reason: Indigestion Last Admin: 03/20/22 08:44 Dose: 15 ml Amiodarone HCl (Amiodarone 200 Mg Tab) 200 mg PO DAILY [facility] Last Admin: 03/23/22 07:47 Dose: 200 mg Dextrose/Water (Dextrose 50% Syringe 50 Ml) 25 ml IVP PER PROTOCOL PRN; Protocol PRN Reason: Hypoglycemia Last Admin: 03/11/22 16:43 Dose: 25 ml Dextrose/Water (Dextrose 50% Syringe 50 Ml) 50 ml IVP PER PROTOCOL PRN; Protocol PRN Reason: Hypoglycemia Docusate Sodium (Docusate 100 Mg Cap) 100 mg PO BID [facility] Last Admin: 03/23/22 22:12 Dose: 100 mg Folic Acid (Folic Acid 1 Mg Tab) 1 mg PO DAILY [facility] Last Admin: 03/23/22 07:47 Dose: 1 mg Furosemide (Furosemide 40 Mg Tab) 40 mg PO DAILY [facility] Last Admin: 03/23/22 07:47 Dose: 40 mg Lactated Ringer's (Lactated Ringers) 1,000 mls @ 20 mls/hr IV .Q24H [facility] Last Admin: 03/23/22 10:25 Dose: Not Given Lactated Ringer's (Lactated Ringers) 1,000 mls @ 20 mls/hr IV .Q24H [facility] Last Admin: 03/23/22 10:25 Dose: Not Given Cefepime HCl 2 gm/ Sodium (Chloride) 100 mls @ 25 mls/hr IVPB Q8HR [facility]; Protocol Last Admin: 03/24/22 00:14 Dose: 25 mls/hr Insulin Aspart (Insulin Aspart (Novolog) 100 Unit/Ml Vial) 0 unit SQ ACHS [facility]; Protocol Last Admin: 03/23/22 22:14 Dose: 6 unit Insulin Detemir (Insulin Detemir (Levemir) 100 Unit/Ml Syr) 14 unit SQ DAILY@0700 [facility] Last Admin: 03/23/22 06:47 Dose: 14 unit Lidocaine HCl (Lidocaine 1% (10mg/Ml) For Iv Start) 0.1 ml INTRADERMA PER PROTOCOL PRN PRN Reason: IV Start Metoprolol Tartrate (Metoprolol Tartrate 50 Mg Tab) 50 mg PO BID [facility] Last Admin: 03/23/22 22:12 Dose: 50 mg Miscellaneous Information (Potassium Replacement Protocol 1 Each Misc) 1 each MISCELLANE DAILY PRN; Protocol PRN Reason: Per Protocol Naloxone HCl (Naloxone 0.4 Mg/Ml 1 Ml Vial) 0.2 mg IV Q2M PRN PRN Reason: Opioid Reversal Nicotine (Nicotine 21mg/24hr Patch) 1 patch TRANSDERM DAILY [facility] Last Admin: 03/23/22 07:48 Dose: 1 patch Ondansetron HCl (Ondansetron 4 Mg/2 Ml Vial) 4 mg IVP Q8HR PRN PRN Reason: Nausea And Vomiting Pantoprazole Sodium (Pantoprazole 40 Mg/10 Ml Vial) 40 mg IVP BID [facility] Last Admin: 03/23/22 22:14 Dose: 40 mg Polyethylene Glycol (Polyethylene Glycol 3350 17 Gm Powd.Pack) 17 gm PO DAILY [facility] Last Admin: 03/23/22 07:47 Dose: 17 gm Senna (Sennosides 8.6 Mg Tab) 8.6 mg PO DAILY [facility] Last Admin: 03/23/22 07:47 Dose: 8.6 mg Physical examination: GENERAL: Awake, laying in bed, sleeping but easily arousable EYES: Pupils equal. Conjunctiva normal. HEENT: External appearance of nose and ears normal, oral cavity mucous membranes moist NECK: JVD not raised; masses not palpable. HEART: Heart sounds normal; no edema. LUNGS: Respiratory rate normal; decreased breath sounds. ABDOMEN: Soft, nontender, liver spleen not palpable, no masses palpable. Unstageble Sacral pressure ulcer PSYCH: Answering questions appropriately Assessment and plan: -Paroxysmal atrial fibrillation with a rapid ventricular rate, back in sinus rhythm -possible acute urinary tract infection secondary to indwelling araujo catheter -Diabetic ketoacidosis: Resolved -Black starry stools/acute GI bleed..: Resolved -Unstageable sacral, pressure ulcer, POA, no plans for debridement per surgery -Diabetes mellitus type 2, uncontrolled with hyperglycemia -Acute metabolic encephalopathy, multifactorial, better Computed tomography scan of brain unremarkable.. EEG-encephalopathy. No seizure.. Follow with Neurology -Severe hypokalemia: Better -Hypophosphatemia: Better -COPD in a current smoker -Chronic nicotine dependence, cigarette smoker -Possibly SIADH -L2 S1 laminectomy and decompression, with lower extremity weakness for central spinal cord stenosis. Surgery Per Dr. Newton: To be postponed, outpatient Plan: Multiple medical consultations following Continue local wound care ID following and continued on abx. Awaiting urine culture and patient continues with low grade temps. chest xray ordered and pending Need to discuss further with other consultations about treatment plan moving forward Continue to monitor accuchecks achs and continue current regimen. PT/OT to evaluate and planning on ECF Due to multiple complex medical issues, prognosis is guarded The impression and plan of care has been dictated as a scribe by Kaykay Polk, nurse practitioner as directed. Dr. Gila MD I have performed a history and examination and MDM of this patient, discussed the same with the dictator, and has been documented as a scribe. Based on total visit time, I have performed more than 50% of the visit. Any additional f indings or plans will be noted. Objective - Vital Signs Vital signs: Vital Signs Temp 98.6 F 03/24/22 02:00 Pulse 66 03/24/22 02:00 Resp 17 03/24/22 02:00 BP 93/55 03/24/22 02:00 Pulse Ox 98 03/24/22 02:00 FiO2 21 03/04/22 07:22 Intake & Output 03/23/22 03/23/22 03/24/22 06:59 18:59 06:59 Intake Total 450 Output Total 2800 3100 650 Balance -2350 -3100 -650 Intake: Oral 450 Output: Urine 2800 3100 650 Other: Voiding Method External Catheter External Catheter External Catheter # Bowel Movements 1 1 - Labs CBC & Chem 7: 03/23/22 07:11 03/23/22 07:11 Labs: Abnormal Lab Results - Last 24 Hours (Table) 03/23/22 03/23/22 03/23/22 Range/Units 06:11 07:11 07:11 RBC 3.22 L (4.30-5.90) m/uL Hgb 8.7 L (13.0-17.5) gm/dL Hct 28.0 L (39.0-53.0) % Plt Count 525 H (150-450) k/uL Sodium 131 L (135-145) mmol/L Carbon Dioxide 30.5 H (20.0-27.5) mmol/L Anion Gap 4.50 L (10.00-18.00) mmol/L BUN 7.3 L (9.0-27.0) mg/dL Creatinine 0.5 L (0.6-1.5) mg/dL Glucose 201 H (70-110) mg/dL POC Glucose (mg/dL) 231 H (70-110) mg/dL Calcium 8.2 L (8.7-10.3) mg/dL 03/23/22 03/23/22 03/23/22 Range/Units 11:04 16:48 21:54 RBC (4.30-5.90) m/uL Hgb (13.0-17.5) gm/dL Hct (39.0-53.0) % Plt Count (150-450) k/uL Sodium (135-145) mmol/L Carbon Dioxide (20.0-27.5) mmol/L Anion Gap (10.00-18.00) mmol/L BUN (9.0-27.0) mg/dL Creatinine (0.6-1.5) mg/dL Glucose (70-110) mg/dL POC Glucose (mg/dL) 299 H 157 H 290 H (70-110) mg/dL Calcium (8.7-10.3) mg/dL Microbiology - Last 24 Hours (Table) 03/20/22 17:38 Blood Culture - Preliminary Blood No Growth after 72 hours 03/21/22 15:00 Urine Culture - Final Urine,Voided 03/22/22 07:07 Blood Culture - Preliminary Blood No Growth after 24 hours
[2022-03-24 06:48] LABS: Glucose,Whole Blood 194 mg/dL (70-110)
[2022-03-24] MEDS: INSULIN ASPART (NovoLOG) 100 UNIT/ML VIAL SQ SCH ×4 (06:53→21:08)
[2022-03-24] MEDS: INSULIN DETEMIR (LEVEMIR) 100 UNIT/ML SYR SQ SCH (06:58)
[2022-03-24 09:37] LABS: African American GFR (CKD) 135.5 (60.0-200.0); Anion Gap 7.6 mmol/L (10.00-18.00); BUN/Creat Ratio 29.47 Ratio (12.00-20.00); Blood Urea Nitrogen 14.5 mg/dL (9.0-27.0); Calcium 8.4 mg/dL (8.7-10.3); Carbon Dioxide 31.8 mmol/L (20.0-27.5); Non-African American GFR(CKD) 116.9 (60.0-200.0); Potassium 4.6 mmol/L (3.5-5.5)
[2022-03-24] MEDS: FOLIC ACID 1 MG TAB PO SCH (09:50)
[2022-03-24] MEDS: polyethylene glycoL 3350 17 GM POWD.PACK PO SCH (09:50)
[2022-03-24] MEDS: NICOTINE 21MG/24HR PATCH TRANSDERM SCH (09:50)
[2022-03-24] MEDS: PANTOPRAZOLE 40 MG/10 ML VIAL IVP SCH ×2 (09:50→21:08)
[2022-03-24] MEDS: SENNOSIDES 8.6 MG TAB PO SCH (09:51)
[2022-03-24] MEDS: FUROSEMIDE 40 MG TAB PO SCH (09:51)
[2022-03-24] MEDS: METOPROLOL TARTRATE 50 MG TAB PO SCH ×2 (09:51→21:08)
[2022-03-24] MEDS: HYDROcodone/APAP 7.5-325MG 1 EACH TAB PO PRN ×2 (09:51→21:08)
[2022-03-24] MEDS: AMIODARONE 200 MG TAB PO SCH (10:00)
[2022-03-24] MEDS: DOCUSATE 100 MG CAP PO SCH ×2 (10:01→21:08)
[2022-03-24 11:04] LABS: Glucose,Whole Blood 174 mg/dL (70-110)
--- NOTE | 2022-03-24 11:42 | P.PN ---
Subjective Patient is seen in follow-up for hyponatremia. Sodium level 133 today. On oral Lasix. Nonoliguric. Has external catheter. No active complaints. Blood pressure stable. Vital signs are stable. General: Awake. No acute distress. HEENT: Head exam is unremarkable. LUNGS: Breath sounds decreased. HEART: Rate and Rhythm are regular. ABDOMEN: Soft, no distention. EXTREMITITES: Trace edema. Objective - Vital Signs Vital signs: Vital Signs Temp 98.5 F 03/24/22 07:51 Pulse 79 03/24/22 09:24 Resp 18 03/24/22 09:24 BP 108/63 03/24/22 07:51 Pulse Ox 98 03/24/22 07:51 FiO2 21 03/04/22 07:22 Intake & Output 03/23/22 03/24/22 03/24/22 18:59 06:59 18:59 Output Total 3100 650 Balance -3100 -650 Output: Urine 3100 650 Other: Voiding Method External Catheter External Catheter External Catheter # Voids 1 # Bowel Movements 1 - Labs CBC & Chem 7: 03/23/22 07:11 03/24/22 05:49 Labs: Abnormal Lab Results - Last 24 Hours (Table) 03/23/22 03/23/22 03/24/22 Range/Units 16:48 21:54 05:49 Sodium 133 L (135-145) mmol/L Chloride 94 L (96-109) mmol/L Carbon Dioxide 31.8 H (20.0-27.5) mmol/L Anion Gap 7.60 L (10.00-18.00) mmol/L Creatinine 0.5 L (0.6-1.5) mg/dL BUN/Creatinine Ratio 29.47 H (12.00-20.00) Ratio Glucose 166 H (70-110) mg/dL POC Glucose (mg/dL) 157 H 290 H (70-110) mg/dL Calcium 8.4 L (8.7-10.3) mg/dL 03/24/22 03/24/22 Range/Units 06:46 11:02 Sodium (135-145) mmol/L Chloride (96-109) mmol/L Carbon Dioxide (20.0-27.5) mmol/L Anion Gap (10.00-18.00) mmol/L Creatinine (0.6-1.5) mg/dL BUN/Creatinine Ratio (12.00-20.00) Ratio Glucose (70-110) mg/dL POC Glucose (mg/dL) 194 H 174 H (70-110) mg/dL Calcium (8.7-10.3) mg/dL Microbiology - Last 24 Hours (Table) 03/22/22 07:07 Blood Culture - Preliminary Blood No Growth after 48 hours 03/20/22 17:38 Blood Culture - Preliminary Blood No Growth after 72 hours 03/21/22 15:00 Urine Culture - Final Urine,Voided Assessment and Plan Plan: Assessment: 1. Hyponatremia. Hypervolemic. Sodium level 133. Also component of poor solute intake. Urine sodium low at 24 and urine osmolality low at 71. TSH normal. Cortisol level was not low. On oral Lasix. Has also received Samsca this admission. 2. Right adrenal mass suggestive of benign adrenal adenoma on CAT scan done 03/09/2022. Doubt hyperaldosteronism state as patient has no history of h ypertension and blood pressure is fairly well controlled without any antihypertensive meds. Cortisol level normal. Serum aldosterone 5.1. Renin less than 2.1. Plasma metanephrines negative. 3. Metabolic alkalosis secondary to bicarb supplementation and diuresis. Bicarb supplementation stopped 03/09/2022. Stable. 4. Central spinal cord stenosis. Surgery to be done outpatient. 5. Anemia. Concern for GI bleed. EGD showed mild gastritis without any acute bleed. Colonoscopy showed moderate diverticulosis. Hemoglobin 8.0 yesterday. Iron deficiency noted. Status post IV iron. 6. Diabetes mellitus. 7. Fluid overload. Improved with diuresis. 8. Hypokalemia from diuresis. Replaced. Stable. 9. UTI. Urine culture positive for Enterobacter and Betty. on antibiotics. Plan: Maintain oral Lasix. Zee catheter removed. Now has external catheter. Blood sugar control. Will use Samsca as needed. Maintain 1500 mL fluid restriction. Repeat BMP and magnesium level 2-3 days postdischarge. Follow up outpatient in 1 week.
--- NOTE | 2022-03-24 13:33 | P.PN ---
Subjective Progress Note Date: 03/24/22 CHIEF COMPLAINT: Anemia and black stool HISTORY OF PRESENT ILLNESS: Patient status post colonoscopy with digital disimpaction. Results showed mild diverticulosis and fecal impaction. Sigmoid colon did reveal mild diverticular changes. Patient had EGD completed on 03/09/22 showing mild antral gastritis, mild esophagitis and no evidence of any upper GI bleed. Patient has no new complaints. He is tolerating diet. Patient does not ambulate. Patient reports having bowel movements. No further fevers. Blood culture remains negative. WBC 9.4 na 133 potassium 4.6 creatinine 0.5 Patient seen and examined with Dr. al PHYSICAL EXAM: VITAL SIGNS: Reviewed. GENERAL: Well-developed in no acute distress. HEENT: No sclera icterus. Extraocular movements grossly intact. Moist buccal mucosa. Head is atraumatic, normocephalic. ABDOMEN: Soft. Nondistended. Patient has tenderness in the right upper quadrant and epigastric area NEUROLOGIC: Alert and oriented. Cranial nerves II through XII grossly intact. Skin: Patient has a sacral decubitus ulcer with necrotic tissue. no drainage ASSESSMENT: 1. Anemia with black tarry stool status post EGD and colonoscopy 2. Fecal impaction status post disimpaction 3. Incidental finding of hydropic gallbladder with cholelithiasis 4. Central spinal cord stenosis at L4 to L5 with bilateral lower extremity weakness 5. Sacral decubitus ulcer 6. Constipation improved PLAN: -No plans for debridement for sacral decubitus ulcer -Continue offloading -Continue protective dressing to sacral decubitus ulcer -Antibiotics per infectious disease -Continue stool softeners and miralax Physician Survey Chief note has been reviewed by physician. Signing provider agrees with the documented findings, assessment, and plan of care. Objective - Vital Signs Vital signs: Vital Signs Temp 98.5 F 03/24/22 07:51 Pulse 79 03/24/22 09:24 Resp 18 03/24/22 09:24 BP 108/63 03/24/22 07:51 Pulse Ox 98 03/24/22 07:51 FiO2 21 03/04/22 07:22 Intake & Output 03/23/22 03/24/22 03/24/22 18:59 06:59 18:59 Output Total 3100 650 Balance -3100 -650 Output: Urine 3100 650 Other: Voiding Method External Catheter External Catheter External Catheter # Voids 1 # Bowel Movements 1 - Labs CBC & Chem 7: 03/23/22 07:11 03/24/22 05:49 Labs: Abnormal Lab Results - Last 24 Hours (Table) 03/23/22 03/23/22 03/24/22 Range/Units 16:48 21:54 05:49 Sodium 133 L (135-145) mmol/L Chloride 94 L (96-109) mmol/L Carbon Dioxide 31.8 H (20.0-27.5) mmol/L Anion Gap 7.60 L (10.00-18.00) mmol/L Creatinine 0.5 L (0.6-1.5) mg/dL BUN/Creatinine Ratio 29.47 H (12.00-20.00) Ratio Glucose 166 H (70-110) mg/dL POC Glucose (mg/dL) 157 H 290 H (70-110) mg/dL Calcium 8.4 L (8.7-10.3) mg/dL 03/24/22 03/24/22 Range/Units 06:46 11:02 Sodium (135-145) mmol/L Chloride (96-109) mmol/L Carbon Dioxide (20.0-27.5) mmol/L Anion Gap (10.00-18.00) mmol/L Creatinine (0.6-1.5) mg/dL BUN/Creatinine Ratio (12.00-20.00) Ratio Glucose (70-110) mg/dL POC Glucose (mg/dL) 194 H 174 H (70-110) mg/dL Calcium (8.7-10.3) mg/dL Microbiology - Last 24 Hours (Table) 03/22/22 07:07 Blood Culture - Preliminary Blood No Growth after 48 hours 03/20/22 17:38 Blood Culture - Preliminary Blood No Growth after 72 hours 03/21/22 15:00 Urine Culture - Final Urine,Voided
--- NOTE | 2022-03-24 14:42 | P.PN ---
Progress Note - Text Progress Note Date: 03/24/22 Chief Complaint: Low back pain This is a 62-year-old patient, follows with Dr. Mendez. Chronic stable medical conditions include ADHD, herniated disc lower back, smoker. Patient's son at the bedside. Patient yesterday took his medication was going to the bathroom and the son noticed that he was feeling looking weak. He became less responsive. Never passed out. Shaky. No fever or chills reported. EMS was called out. Patient is found to be in atrial fibrillation with rapid ventricular rate. In the ER started on IV heparin, given adenosine, later put on IV Cardizem. Also found to be in DKA. Put on insulin drip. Potassium was very low NG tube had to be pacemaker placement. Tired. Most of the history of pain medicine at the bedside. Patient rather tired and lethargic. Admitted with new onset of atrial fibrillation uncontrolled, diabetic ketoacidosis, acute metabolic encephalopathy, severe hypokalemia. Started on Cardizem drip, IV heparin, insulin drip. NG tube was placed for potassium replacement. March 03: ICU: Patient went back into sinus rhythm. Did have 3-4 minutes burst of A. fib with rapid ventricular rate and rhythm back in sinus rhythm. IV heparin is being changed over to subcu Lovenox 70 mg every 12. Insulin drip is discontinued. Put on Levemir 10 units. NG tube in place. Potassium being replaced. Still patient is rather lethargic. We'll get a computed tomography scan of the brain. And EEG. March 04: ICU: Remains in sinus rhythm. Has been off Cardizem drip. Slightly more awake but still lethargic. Attempted to answer questions. Potassium down to 2.7. Potassium being replaced. At magnesium. By mouth amiodarone. On IV ceftriaxone for possible UTI. Sinus rhythm. Stop Catapres increase Lopressor to 100 mg twice a day. Check ammonia level. Phosphorus being replaced. Consult neurology. CT brain negative for stroke. EEG results pending. March 05: ICU. Laying in bed. Weak. EEG showed encephalopathy. Weakness in all the limbs. Just ordered able to lift his arms. [place] to be from electrolyte abnormalities. Able to answer questions slowly. Did tolerate some ice chips. Nurse will try to feed the patient. Lethargic but more awake. PTOT consulted. Unstageable bluish decolorization of the sacrum and heels. NG tube discontinued. IV fluids. 03/06/2020: Patient remains in the ICU improving slowly and gradually. Still had fever yesterday of 100.7, no more fever today. Other vitals are stable. Patient remains on ceftriaxone and he is been treated for UTI with Enterobacter. He still has fever as of yesterday therefore we will check renal ultrasound. Corcalcitonin 1.03, His altered mentation most likely is secondary to metabolic/toxic encephalopathy and UTI, neurologist on the case and he ordered MRI of the thoracolumbar spine to rule out spinal stenosis, results showing multilevel lumbar spinal stenosis but is mild and there is no spinal stenosis of the thoracic spine. Cardiology the case for new-onset A. fib, currently on Lovenox and amiodarone and rate controlled. Distal on IV fluids under lactate 125 Ulcers on Protonix 40 mg oral twice a day and Lovenox 70 mg twice daily. Glucose controlled on Levemir 14 units. His hemoglobin A1c is 12.9% and his DKA on admission resolved 03/07/2022 Patient still feels generally weak and lethargic. However he has good appetite. He denies chest pain or abdominal pain. No dyspnea. He looks comfortable in bed. He had 1 small bowel movement, no diarrhea. Zee catheter in place with yellow urine. Patient procalcitonin significantly improved down to 0.15, however his culture showed Enterobacter resistant to ceftriaxone. Patient currently on oral Levaquin. We going to consult infectious disease team. WBC is 11.3. Sodium 129. Patient fever on admission has subsided since then. Neurologist on the case and recommended EMG and nerve conduction study as an outpatient. Patient currently on Lovenox 70 mg twice a day, Levemir insulin 14 units and amiodarone. Also he is on oral Protonix twice daily and IV fluids under lactate at 125 Patient tolerates some diet, lower rate elected down to 75 mL/h renal ultrasound order, follow-up results 03/08/2022 Patient is seen and evaluated in follow-up this morning with multiple medical consultations including neurology, pulmonary, infectious disease, orthopedics following. Plan is for possible lumbar decompression sometime this week. Have consulted general surgery as per nursing report patient had a large dark tarry stool this morning. Hemoglobin is stable at 9.7. Patient's sodium is 129 with a potassium of 3.7 current creatinine is stable at 0.42. Blood sugars have been elevated and will continue current regimen. WBC remains elevated and patient is maintained on cefepime and will continue. Oral intake continues to be fair to poor and patient continues to report back pain. Patient has been febrile. Patient denies chest pain or shortness of breath. Patient is extremely lethargic with generalized edema noted throughout. Will consult nephrology for hyponatremia 03/09/2022 Patient is seen and evaluated in follow-up this morning. Multiple medical consultations following including orthopedics, general surgery, nephrology, pulmonary, and infectious disease. Plan was for tentative decompression surgery with orthopedics although sodium continues to be low and nursing reported dark tarry stools and is being evaluated with EGD/colonoscopy that is to be done on . Patient will start bowel prep tomorrow and will monitor closely of labs. Abdomen ultrasound was ordered as well and patient is continue with indwelling Zee catheter. Patient currently maintained on antibiotics and will continue. Patient is maintained on clear liquids and tolerating appears more awake and alert than yesterday. Patient continues to be weak and denies chest pain or shortness of breath. Patient labs currently pending and nephrology is following for hyponatremia and was started on Lasix. 03/10/2022: I resumed care of the patient today Tolerating clear liquids. Tired. Pending surgery-Dr. Newton . Back pain controlled. Patient's had black starry stools. For colonoscopy per Dr. Pabon. 03/11/2022: Patient had soft brown stool today. Some abdominal discomfort. Pending colonoscopy today. Received bowel preparation. Patient received 1 dose of Samsca yesterday. Also IV Ferrlecit. 03/12/2022. Colonoscopic could not be done yesterday because of poor bowel preparation. Dark stool was encountered during start of colonoscopy. Patient back on clear liquids. Now rescheduled for Tuesday. 03/13/2022: Patient had bowel preparation done tomorrow for colonoscopy Tuesday. Tolerating liquid diet. 03/14/2022: On liquid diet. Getting bowel preparation for tomorrow. Otherwise stable. Discussed with patient. 03/15/2022: Complaining of mid back pain. Received bowel prep yesterday. Had 2- 3 bowel movements. Possible endoscopy today. Awaiting decision from Dr. Newton for lumbar surgery either this admission nor following some rehab 03/16/2022: wentdown for colonoscopy. Yesterday. Found to have large brown stool in the vault. Procedure canceled. Being rescheduled for . 03/17/2022: Liquid diet. Scheduled for colonoscopic . Intermittent back pain. Bowel prep for surgery. 03/18/2022: Underwent colonoscopy today. Unremarkable. Discussed with Dr. Santana from ID. Has a sacral wound. Like Dr. Pabon to debrided the same. Given that not a good idea to patient have lumbar surgery at this point. This should be postponed for later. 03/19/2022: Oral intake fair. Discussed with ID. Feels patient needs debridement. Discussed with Dr. Pabon. He feels that this point would not help. ID and Dr. Pabon will further discuss. Discussed with Dr. Newton after discussing with ID that present time not a good idea to reduce lumbar surgery this would be postponed. Told patient 03/21/2022 Patient is seen today with multiple medical consultations following. Continued on local wound care with general surgery following. Also continues on IV cefepime with ID following closely. Follow up on labs and continue to monitor closely. Will need to discuss with consultations about treatment plan moving forward. Afebrile. Continue with current medications and encourage oral intake. PT/OT to follow. 03/22/2022 Patient is seen in follow up this morning and continued on IV cefepime and awaiting urine culture. ID, nephrology, ortho, and general surgery following and continues with low grade temps. No plans for orthopedic surgical intervention at this time. Surgery reports no debridement of the wound. Continue with local wound care. Patient oral intake is fair and will continue to follow. 03/23/2022 Patient this morning is sleeping but arousable. Appears lethargic and not eating very much. Patient continues to have intermittent low grade temps and chest xray is ordered. Patient is significantly weak and will need ecf. Case management following. No plans for surgical intervention of the wounds and to continue local wound care. Ortho to see patient outpatient for possible surgical intervention once more stable. Awaiting am labs. 03/24/2022: Patient was being covered by [facility] from March 20 through March 23. I resumed care of the patient today. reclining in bed. Oral intake good. Not for any surgical debridement by Dr. Pabon. Or the weak and patient picked up a fever. Put on IV cefepime. Discussed with ID Dr. Santana today. He will review the cultures and antibiotics and taken decision. Pain control. Active Medications Acetaminophen (Acetaminophen Tab 325 Mg Tab) 650 mg PO Q6HR PRN PRN Reason: Mild Pain or Fever > 100.5 Last Admin: 03/22/22 19:56 Dose: 650 mg Hydrocodone Bitart/Acetaminophen (Hydrocodone/Apap 7.5-325mg 1 Each Tab) 1 each PO Q6HR PRN PRN Reason: Pain Last Admin: 03/24/22 09:51 Dose: 1 each Al Hydroxide/Mg Hydroxide (Mag Hydrox/Al Hydrox/Simeth 30 Ml Cup) 15 ml PO Q6HR PRN PRN Reason: Indigestion Last Admin: 03/20/22 08:44 Dose: 15 ml Amiodarone HCl (Amiodarone 200 Mg Tab) 200 mg PO DAILY [facility] Last Admin: 03/24/22 10:00 Dose: 200 mg Dextrose/Water (Dextrose 50% Syringe 50 Ml) 25 ml IVP PER PROTOCOL PRN; Protocol PRN Reason: Hypoglycemia Last Admin: 03/11/22 16:43 Dose: 25 ml Dextrose/Water (Dextrose 50% Syringe 50 Ml) 50 ml IVP PER PROTOCOL PRN; Protocol PRN Reason: Hypoglycemia Docusate Sodium (Docusate 100 Mg Cap) 100 mg PO BID [facility] Last Admin: 03/24/22 10:01 Dose: 100 mg Folic Acid (Folic Acid 1 Mg Tab) 1 mg PO DAILY [facility] Last Admin: 03/24/22 09:50 Dose: 1 mg Furosemide (Furosemide 40 Mg Tab) 40 mg PO DAILY [facility] Last Admin: 03/24/22 09:51 Dose: 40 mg Lactated Ringer's (Lactated Ringers) 1,000 mls @ 20 mls/hr IV .Q24H [facility] Last Admin: 03/23/22 10:25 Dose: Not Given Lactated Ringer's (Lactated Ringers) 1,000 mls @ 20 mls/hr IV .Q24H [facility] Last Admin: 03/23/22 10:25 Dose: Not Given Cefepime HCl 2 gm/ Sodium (Chloride) 100 mls @ 25 mls/hr IVPB Q8HR [facility]; Protocol Last Admin: 03/24/22 09:48 Dose: 25 mls/hr Insulin Aspart (Insulin Aspart (Novolog) 100 Unit/Ml Vial) 0 unit SQ ACHS [facility]; Protocol Last Admin: 03/24/22 11:51 Dose: 2 unit Insulin Detemir (Insulin Detemir (Levemir) 100 Unit/Ml Syr) 18 unit SQ DAILY@0700 [facility] Last Admin: 03/24/22 06:58 Dose: 18 unit Lidocaine HCl (Lidocaine 1% (10mg/Ml) For Iv Start) 0.1 ml INTRADERMA PER PROTOCOL PRN PRN Reason: IV Start Metoprolol Tartrate (Metoprolol Tartrate 50 Mg Tab) 50 mg PO BID [facility] Last Admin: 03/24/22 09:51 Dose: 50 mg Miscellaneous Information (Potassium Replacement Protocol 1 Each Misc) 1 each MISCELLANE DAILY PRN; Protocol PRN Reason: Per Protocol Naloxone HCl (Naloxone 0.4 Mg/Ml 1 Ml Vial) 0.2 mg IV Q2M PRN PRN Reason: Opioid Reversal Nicotine (Nicotine 21mg/24hr Patch) 1 patch TRANSDERM DAILY [facility] Last Admin: 03/24/22 09:50 Dose: 1 patch Ondansetron HCl (Ondansetron 4 Mg/2 Ml Vial) 4 mg IVP Q8HR PRN PRN Reason: Nausea And Vomiting Pantoprazole Sodium (Pantoprazole 40 Mg/10 Ml Vial) 40 mg IVP BID [facility] Last Admin: 03/24/22 09:50 Dose: 40 mg Polyethylene Glycol (Polyethylene Glycol 3350 17 Gm Powd.Pack) 17 gm PO DAILY [facility] Last Admin: 03/24/22 09:50 Dose: 17 gm Senna (Sennosides 8.6 Mg Tab) 8.6 mg PO DAILY [facility] Last Admin: 03/24/22 09:51 Dose: 8.6 mg Past medical history to include: Diabetes, possible ADHD, chronic low back pain, herniated disc, Social history: Son lives with the patient. 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 Smokes about a pack a day. Alcohol occasionally. Physical examination: VITAL SIGNS: 98.5, 79, 18, 10 8 x 63, 98% room air GENERAL: Awake, comfortable reclining in bed EYES: Pupils equal. Conjunctiva normal. HEENT: External appearance of nose and ears normal, oral cavity mucous membranes moist NECK: JVD not raised; masses not palpable. HEART: Heart sounds normal; no edema. LUNGS: Respiratory rate normal; decreased breath sounds. ABDOMEN: Soft, nontender, liver spleen not palpable, no masses palpable. Unstageble Sacral pressure ulcer, PSYCH: Answering questions appropriately INVESTIGATIONS, reviewed in the clinical context: 03/24/2022: Sodium 133 potassium 4.6 BUN 14.5 creatinine 0.5 Colonoscopy: Unremarkable March 10: WBC 11.7 hemoglobin 9.1 platelets 519 sodium 127 potassium 3.9 BUN 6 creatinine 0.51 serum osmolality 271 HbA1c: 12.9 Computed tomography scan brain: No acute processes reported March 03: Sodium 136 potassium 3 BUN 22 creatinine 0.50 albumin 2.2 WBC 36.7 hemoglobin 14.7 platelets 470 potassium 2.7 sodium 128 bicarb 9 BUN 25 crit 0.89 blood glucose 564 UA positive for ketone 4+, leukoesterase negative for nitrite Urine drug screen: Negative Serum acetone positive EKG tracing personally reviewed by me-heart rate 171, ST segment depression Chest x-ray film personally reviewed by me-prominent pulmonary artery. Elevated right diaphragm. 2-D echocardiogram: EF 55-60%. Assessment and plan: -Paroxysmal atrial fibrillation with a rapid ventricular rate, back in sinus rhythm Lopressor 100 mg twice a day. Oral amiodarone -IV heparin -discontinued Follow PTT -Diabetic ketoacidosis: Resolved -Black starry stools/acute GI bleed..: Resolved EGD showed mild gastritis and esophagitis. Coloscopy -unremarkable -Unstageable sacral, pressure ulcer, POA Seen by Dr. Pabon-not for debridement -Diabetes mellitus type 2, uncontrolled with hyperglycemia Levemir 18 units subcu daily. Follow Accu-Cheks. Starttrajenta, formulary replacement for Januvia -Acute metabolic encephalopathy, multifactorial, better Computed tomography scan of brain unremarkable.. EEG-encephalopathy. No seizure.. Follow with Neurology -Severe hypokalemia: Better -Hypophosphatemia: Better Replace phosphorus -COPD in a current smoker Bronchodilators as needed -Chronic nicotine dependence, cigarette smoker Nicotine patch -Possibly SIADH . Received IV Samsca. -L2 S1 laminectomy and decompression, with lower extremity weakness for central spinal cord stenosis. Surgery Per Dr. Newton: To be postponed, outpatient given the sacral ulcer that may be debrided. Patient over patient had a fever. Put back on IV cefepime. Discussed with ID. Will review. Discharge planning accordingly. Start trajenta
[2022-03-24 17:04] LABS: Glucose,Whole Blood 132 mg/dL (70-110)
[2022-03-24] MEDS: LINAGLIPTIN 5 MG TABLET PO SCH (17:13)
[2022-03-24] MEDS: LACTATED RINGERS 1,000 ML IV SCH ×2 (18:41)
[2022-03-24 20:48] LABS: Glucose,Whole Blood 249 mg/dL (70-110)
[2022-03-25] MEDS: MAG HYDROX/AL HYDROX/SIMETH 30 ML CUP PO PRN ×2 (00:06→06:04)
[2022-03-25 06:59] LABS: Glucose,Whole Blood 236 mg/dL (70-110)
[2022-03-25] MEDS: INSULIN DETEMIR (LEVEMIR) 100 UNIT/ML SYR SQ SCH (07:14)
[2022-03-25] MEDS: INSULIN ASPART (NovoLOG) 100 UNIT/ML VIAL SQ SCH ×2 (07:14→12:44)
--- NOTE | 2022-03-25 09:09 | P.PN ---
Subjective Progress Note Date: 03/22/22 Principal diagnosis: Enterobacter catheter associated UTI Patient is a 62 year old male with initial presentation hospital with palpitation and shortness of breath patient did have a low-grade fever and a positive urine culture with Enterobacter. Patient has developed significant constipation and possible GI bleed status post disimpaction on 03/11/2022, patient has developed unstageable pressure ulcer to the sacral area apparently started last week as a deep tissue injury on 03/11/2022 per the nursing staff, the patient colonoscopy was canceled because of poor bowel prep, the patient did have a colonoscopy completed today on 03/18/2022 with evidence of mild a ortic necrosis and fecal impaction On today's evaluation that is 03/22/2022 the patient is afebrile at this morning, the patient is breathing comfortably on room air the patient denies having any chest pain or shortness of breath occasional cough denies any abdominal pain no diarrhea and denies having any urinary symptoms at this point Objective - Vital Signs Vital signs: Vital Signs Temp 101.5 F H 03/22/22 20:00 Pulse 86 03/22/22 20:03 Resp 16 03/22/22 20:03 BP 119/72 03/22/22 20:00 Pulse Ox 100 03/22/22 20:00 FiO2 21 03/04/22 07:22 Intake & Output 03/22/22 03/22/22 03/23/22 06:59 18:59 06:59 Intake Total 700 1080 Output Total 1100 1000 Balance Weight 76.3 kg Intake: Oral 700 1080 Output: Urine 1100 1000 Other: Voiding Method External Catheter External Catheter # Bowel Movements 1 1 - Exam GENERAL DESCRIPTION: A middle-aged male lying in bed in no distress RESPIRATORY SYSTEM: Unlabored breathing , decreased breath sounds at bases HEART: S1 S2 regular rate and rhythm , ABDOMEN: Soft , no tenderness Patient with unstageable sacral pressure ulcer with necrotic tissue, with no significant surrounding redness or drainage EXTREMITIES: No edema feet - Labs CBC & Chem 7: 03/23/22 07:11 03/24/22 05:49 Labs: Abnormal Lab Results - Last 24 Hours (Table) 03/22/22 03/22/22 03/22/22 Range/Units 06:37 07:07 07:07 WBC 10.12 H (4.50-10.00) X 10*3/uL RBC 2.99 L (4.40-5.60) X 10*6/uL Hgb 8.1 L (13.0-17.0) g/dL Hct 25.7 L (39.6-50.0) % MCHC 31.5 L (32.0-37.0) g/dL RDW 14.6 H (11.5-14.5) % Plt Count 460 H (140-440) X 10*3/uL MPV 8.7 L (9.5-12.2) fL Neutrophils # 7.83 H (1.80-7.70) X 10*3/uL Sodium 129 L (135-145) mmol/L Chloride 92 L (96-109) mmol/L Carbon Dioxide 30.8 H (20.0-27.5) mmol/L Anion Gap 6.50 L (10.00-18.00) mmol/L Creatinine 0.5 L (0.6-1.5) mg/dL BUN/Creatinine Ratio 21.65 H (12.00-20.00) Ratio Glucose 177 H (70-110) mg/dL POC Glucose (mg/dL) 193 H (70-110) mg/dL Calcium 8.0 L (8.7-10.3) mg/dL 03/22/22 03/22/22 03/22/22 Range/Units 11:42 16:41 20:56 WBC (4.50-10.00) X 10*3/uL RBC (4.40-5.60) X 10*6/uL Hgb (13.0-17.0) g/dL Hct (39.6-50.0) % MCHC (32.0-37.0) g/dL RDW (11.5-14.5) % Plt Count (140-440) X 10*3/uL MPV (9.5-12.2) fL Neutrophils # (1.80-7.70) X 10*3/uL Sodium (135-145) mmol/L Chloride (96-109) mmol/L Carbon Dioxide (20.0-27.5) mmol/L Anion Gap (10.00-18.00) mmol/L Creatinine (0.6-1.5) mg/dL BUN/Creatinine Ratio (12.00-20.00) Ratio Glucose (70-110) mg/dL POC Glucose (mg/dL) 281 H 219 H 166 H (70-110) mg/dL Calcium (8.7-10.3) mg/dL Microbiology - Last 24 Hours (Table) 03/20/22 17:38 Blood Culture - Preliminary Blood No Growth after 48 hours 03/21/22 15:00 Urine Culture - Preliminary Urine,Voided Assessment and Plan (1) Catheter-associated urinary tract infection Current Visit: Yes Status: Acute Code(s): T83.511A - I/I REACT D/T INDWELLING URETHRAL CATHETER, INIT; N39.0 - URINARY TRACT INFECTION, SITE NOT SPECIFIED SNOMED Code(s): 753656370 Plan: 1 -Pt with unstageable sacral pressure ulcer, patient is currently being treated with medihoney, surgery recommended no surgical debridement, to keep the wound dry and off the pressure 2patient with a new fever concern for possible UTI, blood and urine culture has been obtained , continue with empiric cefepime while waiting for cultures to finalize Time with Patient: Less than 30
--- NOTE | 2022-03-25 09:11 | P.PN ---
Subjective Progress Note Date: 03/23/22 Principal diagnosis: Enterobacter catheter associated UTI Patient is a 62 year old male with initial presentation hospital with palpitation and shortness of breath patient did have a low-grade fever and a positive urine culture with Enterobacter. Patient has developed significant constipation and possible GI bleed status post disimpaction on 03/11/2022, patient has developed unstageable pressure ulcer to the sacral area apparently started last week as a deep tissue injury on 03/11/2022 per the nursing staff, the patient colonoscopy was canceled because of poor bowel prep, the patient did have a colonoscopy completed today on 03/18/2022 with evidence of mild a ortic necrosis and fecal impaction On today's evaluation that is 03/23/2022 the patient did spike a fever last night of 101.5 followed by a low-grade fever of 99.9 however the patient is afebrile this morning patient is breathing comfortably on room air patient denies having any chest pain shortness of breath or cough no abdominal pain and no diarrhea Objective - Vital Signs Vital signs: Vital Signs Temp 99.2 F 03/23/22 14:00 Pulse 82 03/23/22 14:00 Resp 16 03/23/22 14:00 BP 116/77 03/23/22 14:00 Pulse Ox 96 03/23/22 14:00 FiO2 21 03/04/22 07:22 Intake & Output 03/22/22 03/23/22 03/23/22 18:59 06:59 18:59 Intake Total 1080 450 Output Total 1100 2800 3100 Balance -20 -6870 -3101 Weight 76.3 kg Intake: Oral 1080 450 Output: Urine 1100 2800 3100 Other: Voiding Method External Catheter External Catheter External Catheter # Bowel Movements 1 1 1 - Exam GENERAL DESCRIPTION: A middle-aged male lying in bed in no distress RESPIRATORY SYSTEM: Unlabored breathing , decreased breath sounds at bases HEART: S1 S2 regular rate and rhythm , ABDOMEN: Soft , no tenderness Patient with unstageable sacral pressure ulcer with necrotic tissue, with no significant surrounding redness or drainage EXTREMITIES: No edema feet - Labs CBC & Chem 7: 03/23/22 07:11 03/24/22 05:49 Labs: Abnormal Lab Results - Last 24 Hours (Table) 03/22/22 03/23/22 03/23/22 Range/Units 20:56 06:11 07:11 RBC (4.30-5.90) m/uL Hgb (13.0-17.5) gm/dL Hct (39.0-53.0) % Plt Count (150-450) k/uL Sodium 131 L (135-145) mmol/L Carbon Dioxide 30.5 H (20.0-27.5) mmol/L Anion Gap 4.50 L (10.00-18.00) mmol/L BUN 7.3 L (9.0-27.0) mg/dL Creatinine 0.5 L (0.6-1.5) mg/dL Glucose 201 H (70-110) mg/dL POC Glucose (mg/dL) 166 H 231 H (70-110) mg/dL Calcium 8.2 L (8.7-10.3) mg/dL 03/23/22 03/23/22 03/23/22 Range/Units 07:11 11:04 16:48 RBC 3.22 L (4.30-5.90) m/uL Hgb 8.7 L (13.0-17.5) gm/dL Hct 28.0 L (39.0-53.0) % Plt Count 525 H (150-450) k/uL Sodium (135-145) mmol/L Carbon Dioxide (20.0-27.5) mmol/L Anion Gap (10.00-18.00) mmol/L BUN (9.0-27.0) mg/dL Creatinine (0.6-1.5) mg/dL Glucose (70-110) mg/dL POC Glucose (mg/dL) 299 H 157 H (70-110) mg/dL Calcium (8.7-10.3) mg/dL Microbiology - Last 24 Hours (Table) 03/21/22 15:00 Urine Culture - Final Urine,Voided 03/22/22 07:07 Blood Culture - Preliminary Blood No Growth after 24 hours 03/20/22 17:38 Blood Culture - Preliminary Blood No Growth after 48 hours Assessment and Plan (1) Catheter-associated urinary tract infection Current Visit: Yes Status: Acute Code(s): T83.511A - I/I REACT D/T INDWELLING URETHRAL CATHETER, INIT; N39.0 - URINARY TRACT INFECTION, SITE NOT SPECIFIED SNOMED Code(s): 267539339 Plan: 1 -Pt with unstageable sacral pressure ulcer, patient is currently being treated with medihoney, surgery recommended no surgical debridement, to keep the wound dry and off the pressure 2patient with a new fever concern for possible UTI, blood and urine culture has been obtained , , Which are negative so far patient white count has normalized we will continue patient on cefepime while waiting for the culture to finalize Time with Patient: Less than 30
--- NOTE | 2022-03-25 09:13 | P.PN ---
Subjective Progress Note Date: 03/24/22 Principal diagnosis: Enterobacter catheter associated UTI Patient is a 62 year old male with initial presentation hospital with palpitation and shortness of breath patient did have a low-grade fever and a positive urine culture with Enterobacter. Patient has developed significant constipation and possible GI bleed status post disimpaction on 03/11/2022, patient has developed unstageable pressure ulcer to the sacral area apparently started last week as a deep tissue injury on 03/11/2022 per the nursing staff, the patient colonoscopy was canceled because of poor bowel prep, the patient did have a colonoscopy completed today on 03/18/2022 with evidence of mild a ortic necrosis and fecal impaction On today's evaluation that is 03/24/2022 the patient is afebrile patient is breathing comfortably on room air currently satting 100% patient denies having any chest pain or shortness with occasional cough no nausea no vomiting no abdominal pain and no diarrhea Objective - Vital Signs Vital signs: Vital Signs Temp 99.3 F 03/24/22 20:00 Pulse 83 03/24/22 20:00 Resp 17 03/24/22 20:00 BP 119/66 03/24/22 20:00 Pulse Ox 99 03/24/22 20:00 FiO2 21 03/04/22 07:22 Intake & Output 03/24/22 03/24/22 03/25/22 06:59 18:59 06:59 Intake Total 100 Output Total 650 Balance -650 100 Intake: Intake, IV Titration 100 Amount Cefepime 2 gm In Sodium 100 Chloride 0.9% 100 ml @ 25 mls/hr IVPB Q8HR [facility] Rx# :[id number] Output: Urine 650 Other: Voiding Method External Catheter External Catheter External Catheter # Voids 1 - Exam GENERAL DESCRIPTION: A middle-aged male lying in bed in no distress RESPIRATORY SYSTEM: Unlabored breathing , decreased breath sounds at bases HEART: S1 S2 regular rate and rhythm , ABDOMEN: Soft , no tenderness Patient with unstageable sacral pressure ulcer with necrotic tissue, with no significant surrounding redness or drainage EXTREMITIES: No edema feet - Labs CBC & Chem 7: 03/23/22 07:11 03/24/22 05:49 Labs: Abnormal Lab Results - Last 24 Hours (Table) 03/24/22 03/24/22 03/24/22 Range/Units 05:49 06:46 11:02 Sodium 133 L (135-145) mmol/L Chloride 94 L (96-109) mmol/L Carbon Dioxide 31.8 H (20.0-27.5) mmol/L Anion Gap 7.60 L (10.00-18.00) mmol/L Creatinine 0.5 L (0.6-1.5) mg/dL BUN/Creatinine Ratio 29.47 H (12.00-20.00) Ratio Glucose 166 H (70-110) mg/dL POC Glucose (mg/dL) 194 H 174 H (70-110) mg/dL Calcium 8.4 L (8.7-10.3) mg/dL 03/24/22 03/24/22 Range/Units 17:02 20:46 Sodium (135-145) mmol/L Chloride (96-109) mmol/L Carbon Dioxide (20.0-27.5) mmol/L Anion Gap (10.00-18.00) mmol/L Creatinine (0.6-1.5) mg/dL BUN/Creatinine Ratio (12.00-20.00) Ratio Glucose (70-110) mg/dL POC Glucose (mg/dL) 132 H 249 H (70-110) mg/dL Calcium (8.7-10.3) mg/dL Microbiology - Last 24 Hours (Table) 03/20/22 17:38 Blood Culture - Preliminary Blood No Growth after 96 hours 03/22/22 07:07 Blood Culture - Preliminary Blood No Growth after 48 hours Assessment and Plan (1) Catheter-associated urinary tract infection Current Visit: Yes Status: Acute Code(s): T83.511A - I/I REACT D/T INDWELLING URETHRAL CATHETER, INIT; N39.0 - URINARY TRACT INFECTION, SITE NOT SPECIFIED SNOMED Code(s): 360628329 Plan: 1 -Pt with unstageable sacral pressure ulcer, patient is currently being treated with medihoney, surgery recommended no surgical debridement, to keep the wound dry and off the pressure 2patient with a new fever concern for possible UTI, , The patient blood and urine culture has been negative so far and the patient white count normalized as of yesterday, we will repeat his white count and a CRP with a.m. lab if remains to be normal and the patient remains to be afebrile may consider short course of oral Ceftin on discharge Time with Patient: Less than 30
[2022-03-25 10:06] LABS: Basophils # (A) 0.1 k/uL (0-0.2); Basophils % (A) 1 %; Eosinophils # (A) 0.4 k/uL (0-0.7); Eosinophils % (A) 3 %; HCT 28.8 % (39.0-53.0); HGB 8.9 gm/dL (13.0-17.5); Hypochromasia Moderate; Lymphocytes # (A) 0.9 k/uL (1.0-4.8); Lymphocytes % (A) 8 %; MCH 26.5 pg (25.0-35.0); MCHC 30.9 g/dL (31.0-37.0); Mean Platelet Volume 7.7; Monocytes # (A) 0.6 k/uL (0-1.0); Monocytes % (A) 6 %; Neutrophils # (A) 9.3 k/uL (1.3-7.7); Neutrophils % (A) 82 %; Platelet Count 640 k/uL (150-450); RBC 3.35 m/uL (4.30-5.90); WBC 11.3 k/uL (3.8-10.6)
--- NOTE | 2022-03-25 10:12 | P.PN ---
Subjective Progress Note Date: 03/25/22 CHIEF COMPLAINT: Anemia and black stool HISTORY OF PRESENT ILLNESS: Patient status post colonoscopy with digital disimpaction. Results showed mild diverticulosis and fecal impaction. Sigmoid colon did reveal mild diverticular changes. Patient had EGD completed on 03/09/22 showing mild antral gastritis, mild esophagitis and no evidence of any upper GI bleed. Patient complaining of gas pains into his chest. He reports improvement of pain with Maalox. He's also complaining of back pain and pain in the area of his sacral ulcer. He denies any abdominal pain. Denies any nausea or vomiting. He is having flatus. No bowel movement yesterday. Tolerating diet. Afebrile. WBC 11.3 Hgb 8.9 platelets 640 Patient seen and examined with Dr. al PHYSICAL EXAM: VITAL SIGNS: Reviewed. GENERAL: Well-developed in no acute distress. HEENT: No sclera icterus. Extraocular movements grossly intact. Moist buccal mucosa. Head is atraumatic, normocephalic. ABDOMEN: Soft. Nondistended. Patient has tenderness in the right upper quadrant and epigastric area NEUROLOGIC: Alert and oriented. Cranial nerves II through XII grossly intact. Skin: Patient has a sacral decubitus ulcer with necrotic tissue. no drainage ASSESSMENT: 1. Anemia with black tarry stool status post EGD and colonoscopy 2. Fecal impaction status post disimpaction 3. Incidental finding of hydropic gallbladder with cholelithiasis 4. Central spinal cord stenosis at L4 to L5 with bilateral lower extremity weakness 5. Sacral decubitus ulcer 6. Constipation improved PLAN: -No plans for debridement for sacral decubitus ulcer -Continue offloading -Continue protective dressing to sacral decubitus ulcer -Antibiotics per infectious disease -Continue stool softeners and miralax Physician Hand Engraver note has been reviewed by physician. Signing provider agrees with the documented findings, assessment, and plan of care. Objective - Vital Signs Vital signs: Vital Signs Temp 99.3 F 03/25/22 07:29 Pulse 71 03/25/22 08:41 Resp 17 03/25/22 08:41 BP 121/71 03/25/22 07:29 Pulse Ox 100 03/25/22 07:29 FiO2 21 03/04/22 07:22 Intake & Output 03/24/22 03/25/22 03/25/22 18:59 06:59 18:59 Intake Total 100 Output Total 1000 Balance 100 -1000 Intake: Intake, IV Titration 100 Amount Cefepime 2 gm In Sodium 100 Chloride 0.9% 100 ml @ 25 mls/hr IVPB Q8HR [facility] Rx# :[id number] Output: Urine 1000 Other: Voiding Method External Catheter External Catheter External Catheter - Labs CBC & Chem 7: 03/25/22 09:54 03/24/22 05:49 Labs: Abnormal Lab Results - Last 24 Hours (Table) 03/24/22 03/24/22 03/24/22 Range/Units 11:02 17:02 20:46 WBC (3.8-10.6) k/uL RBC (4.30-5.90) m/uL Hgb (13.0-17.5) gm/dL Hct (39.0-53.0) % MCHC (31.0-37.0) g/dL Plt Count (150-450) k/uL Neutrophils # (1.3-7.7) k/uL Lymphocytes # (1.0-4.8) k/uL POC Glucose (mg/dL) 174 H 132 H 249 H (70-110) mg/dL 03/25/22 03/25/22 Range/Units 06:58 09:54 WBC 11.3 H (3.8-10.6) k/uL RBC 3.35 L (4.30-5.90) m/uL Hgb 8.9 L (13.0-17.5) gm/dL Hct 28.8 L (39.0-53.0) % MCHC 30.9 L (31.0-37.0) g/dL Plt Count 640 H (150-450) k/uL Neutrophils # 9.3 H (1.3-7.7) k/uL Lymphocytes # 0.9 L (1.0-4.8) k/uL POC Glucose (mg/dL) 236 H (70-110) mg/dL Microbiology - Last 24 Hours (Table) 03/22/22 07:07 Blood Culture - Preliminary Blood No Growth after 72 hours 03/20/22 17:38 Blood Culture - Preliminary Blood No Growth after 96 hours
[2022-03-25] MEDS: HYDROcodone/APAP 7.5-325MG 1 EACH TAB PO PRN (10:19)
[2022-03-25] MEDS: FUROSEMIDE 40 MG TAB PO SCH (10:22)
[2022-03-25] MEDS: SENNOSIDES 8.6 MG TAB PO SCH (10:22)
[2022-03-25] MEDS: LINAGLIPTIN 5 MG TABLET PO SCH (10:22)
[2022-03-25] MEDS: METOPROLOL TARTRATE 50 MG TAB PO SCH (10:22)
[2022-03-25] MEDS: AMIODARONE 200 MG TAB PO SCH (10:23)
[2022-03-25] MEDS: DOCUSATE 100 MG CAP PO SCH (10:24)
[2022-03-25] MEDS: FOLIC ACID 1 MG TAB PO SCH (10:24)
[2022-03-25] MEDS: NICOTINE 21MG/24HR PATCH TRANSDERM SCH (10:25)
[2022-03-25] MEDS: polyethylene glycoL 3350 17 GM POWD.PACK PO SCH (10:26)
[2022-03-25] MEDS: CEFEPIME 2 GM in SODIUM CHLORIDE 0.9% 100 ML IVPB SCH (10:26)
[2022-03-25] MEDS: PANTOPRAZOLE 40 MG/10 ML VIAL IVP SCH (10:26)
--- NOTE | 2022-03-25 10:32 | P.PN ---
Subjective Patient is seen in follow-up for hyponatremia. Sodium level 133 yesterday. On oral Lasix. Nonoliguric. Has external catheter. No active complaints. Blood pressure stable. On room air. Vital signs are stable. General: Awake. No acute distress. HEENT: Head exam is unremarkable. LUNGS: Breath sounds decreased. HEART: Rate and Rhythm are regular. ABDOMEN: Soft, no distention. EXTREMITITES: Trace edema. Objective - Vital Signs Vital signs: Vital Signs Temp 99.3 F 03/25/22 07:29 Pulse 71 03/25/22 08:41 Resp 17 03/25/22 08:41 BP 121/71 03/25/22 07:29 Pulse Ox 100 03/25/22 07:29 FiO2 21 03/04/22 07:22 Intake & Output 03/24/22 03/25/22 03/25/22 18:59 06:59 18:59 Intake Total 100 Output Total 1000 Balance 100 -1000 Intake: Intake, IV Titration 100 Amount Cefepime 2 gm In Sodium 100 Chloride 0.9% 100 ml @ 25 mls/hr IVPB Q8HR [facility] Rx# :[id number] Output: Urine 1000 Other: Voiding Method External Catheter External Catheter External Catheter - Labs CBC & Chem 7: 03/25/22 09:54 03/24/22 05:49 Labs: Abnormal Lab Results - Last 24 Hours (Table) 03/24/22 03/24/22 03/24/22 Range/Units 11:02 17:02 20:46 WBC (3.8-10.6) k/uL RBC (4.30-5.90) m/uL Hgb (13.0-17.5) gm/dL Hct (39.0-53.0) % MCHC (31.0-37.0) g/dL Plt Count (150-450) k/uL Neutrophils # (1.3-7.7) k/uL Lymphocytes # (1.0-4.8) k/uL POC Glucose (mg/dL) 174 H 132 H 249 H (70-110) mg/dL 03/25/22 03/25/22 Range/Units 06:58 09:54 WBC 11.3 H (3.8-10.6) k/uL RBC 3.35 L (4.30-5.90) m/uL Hgb 8.9 L (13.0-17.5) gm/dL Hct 28.8 L (39.0-53.0) % MCHC 30.9 L (31.0-37.0) g/dL Plt Count 640 H (150-450) k/uL Neutrophils # 9.3 H (1.3-7.7) k/uL Lymphocytes # 0.9 L (1.0-4.8) k/uL POC Glucose (mg/dL) 236 H (70-110) mg/dL Microbiology - Last 24 Hours (Table) 03/22/22 07:07 Blood Culture - Preliminary Blood No Growth after 72 hours 03/20/22 17:38 Blood Culture - Preliminary Blood No Growth after 96 hours Assessment and Plan Plan: Assessment: 1. Hyponatremia. Hypervolemic. Sodium level 133 yesterday. Also component of poor solute intake. Urine sodium low at 24 and urine osmolality low at 71. TSH normal. Cortisol level was not low. On oral Lasix. Has also received Samsca this admission. 2. Right adrenal mass suggestive of benign adrenal adenoma on CAT scan done 03/09/2022. Doubt hyperaldosteronism state as patient has no history of hypertension and blood pressure is fairly well controlled without any antihypertensive meds. Cortisol level normal. Serum aldosterone 5.1. Renin less than 2.1. Plasma metanephrines negative. 3. Metabolic alkalosis secondary to bicarb supplementation and diuresis. Bicarb supplementation stopped 03/09/2022. Stable. 4. Central spinal cord stenosis. Surgery to be done outpatient. 5. Anemia. Concern for GI bleed. EGD showed mild gastritis without any acute bleed. Colonoscopy showed moderate diverticulosis. Hemoglobin 8.9. Iron deficiency noted - status post IV iron. 6. Diabetes mellitus. 7. Fluid overload. Improved with diuresis. 8. Hypokalemia from diuresis. Replaced. Stable. 9. UTI. Urine culture positive for Enterobacter and Betty. on antibiotics. Plan: Maintain oral Lasix. Blood sugar control. Will use Samsca as needed. Maintain 1500 mL fluid restriction. Repeat BMP and magnesium level 2-3 days postdischarge. Follow up outpatient in 1 week.
[2022-03-25 11:08] LABS: ALT 17 U/L (4-49); AST 16 U/L (17-59); African American GFR (CKD) >90 (>60 ml/min/1.73 sqM); Albumin 2.6 g/dL (3.5-5.0); Albumin/Globulin Ratio 0.7; Alkaline Phosphatase 80 U/L (38-126); Anion Gap 6 mmol/L; Blood Urea Nitrogen 16 mg/dL (9-20); Carbon Dioxide 33 mmol/L (22-30); Chloride 91 mmol/L (98-107); Globulin 3.6 g/dL; Glucose 202 mg/dL (74-99); Non-African American GFR(CKD) >90 (>60 ml/min/1.73 sqM); Potassium 4.5 mmol/L (3.5-5.1); Sodium 130 mmol/L (137-145); Total Bilirubin 0.2 mg/dL (0.2-1.3); Total Protein 6.2 g/dL (6.3-8.2)
[2022-03-25] MEDS ORDERED: SODIUM CHLORIDE TAB 1 GM TAB PO SCH (12:00)
[2022-03-25 12:15] LABS: Glucose,Whole Blood 245 mg/dL (70-110)
--- NOTE | 2022-03-25 13:53 | P.DS ---
Providers Date of admission: 03/01/22 23:17 Expected date of discharge: 03/25/22 Attending physician: Jerardo Guillen Consults: 03/02/22 06:05 Consult Physician Stat Consulting Provider: Ej Sheehan Consult Reason/Comments: ICU, Excellence Manager Do you want consulting provider notified?: Already Contacted 03/04/22 10:51 Consult Physician Routine Consulting Provider: Sixto Victoria Consult Reason/Comments: altered semsorium Do you want consulting provider notified?: Yes 03/06/22 15:01 Consult Physician Routine Consulting Provider: Mark Newton Consult Reason/Comments: BL LE weakness, lumbar spinal stenosis Do you want consulting provider notified?: Yes 03/07/22 14:38 Consult Physician Urgent Consulting Provider: Jim Eugene Consult Reason/Comments: UTI with resistant Enterobacter Do you want consulting provider notified?: Yes 03/08/22 15:24 Consult Physician Urgent Consulting Provider: Neal Pabon Consult Reason/Comments: large dark tarry stool Do you want consulting provider notified?: Yes 03/08/22 17:05 Consult Physician Urgent Consulting Provider: Zeus Comer Consult Reason/Comments: Hyponatremia, ? adrenal mass on ultrasound Do you want consulting provider notified?: Yes 03/09/22 11:06 Consult Physician Routine Consulting Provider: You Escobedo Consult Reason/Comments: ?adrenal mass Do you want consulting provider notified?: Yes Primary care physician: [facility] Course: Chief Complaint: Low back pain This is a 62-year-old patient, follows with Dr. Mendez. Chronic stable medical conditions include ADHD, herniated disc lower back, smoker. Patient's son at the bedside. Patient yesterday took his medication was going to the bathroom and the son noticed that he was feeling looking weak. He became less responsive. Never passed out. Shaky. No fever or chills reported. EMS was called out. Patient is found to be in atrial fibrillation with rapid ventricular rate. In the ER started on IV heparin, given adenosine, later put on IV Cardizem. Also found to be in DKA. Put on insulin drip. Potassium was very low NG tube had to be pacemaker placement. Tired. Most of the history of pain medicine at the bedside. Patient rather tired and lethargic. Admitted with new onset of atrial fibrillation uncontrolled, diabetic ketoacidosis, acute metabolic encephalopathy, severe hypokalemia. Started on Cardizem drip, IV heparin, insulin drip. NG tube was placed for potassium replacement. March 03: ICU: Patient went back into sinus rhythm. Did have 3-4 minutes burst of A. fib with rapid ventricular rate and rhythm back in sinus rhythm. IV heparin is being changed over to subcu Lovenox 70 mg every 12. Insulin drip is discontinued. Put on Levemir 10 units. NG tube in place. Potassium being replaced. Still patient is rather lethargic. We'll get a computed tomography scan of the brain. And EEG. March 04: ICU: Remains in sinus rhythm. Has been off Cardizem drip. Slightly more awake but still lethargic. Attempted to answer questions. Potassium down to 2.7. Potassium being replaced. At magnesium. By mouth amiodarone. On IV ceftriaxone for possible UTI. Sinus rhythm. Stop Catapres increase Lopressor to 100 mg twice a day. Check ammonia level. Phosphorus being replaced. Consult neurology. CT brain negative for stroke. EEG results pending. March 05: ICU. Laying in bed. Weak. EEG showed encephalopathy. Weakness in all the limbs. Just ordered able to lift his arms. [place] to be from electrolyte abnormalities. Able to answer questions slowly. Did tolerate some ice chips. Nurse will try to feed the patient. Lethargic but more awake. PTOT consulted. Unstageable bluish decolorization of the sacrum and heels. NG tube discontinued. IV fluids. 03/06/2020: Patient remains in the ICU improving slowly and gradually. Still had fever yesterday of 100.7, no more fever today. Other vitals are stable. Patient remains on ceftriaxone and he is been treated for UTI with Enterobacter. He still has fever as of yesterday therefore we will check renal ultrasound. Corcalcitonin 1.03, His altered mentation most likely is secondary to metabolic/toxic encephalopathy and UTI, neurologist on the case and he ordered MRI of the thoracolumbar spine to rule out spinal stenosis, results showing multilevel lumbar spinal stenosis but is mild and there is no spinal stenosis of the thoracic spine. Cardiology the case for new-onset A. fib, currently on Lovenox and amiodarone and rate controlled. Distal on IV fluids under lactate 125 Ulcers on Protonix 40 mg oral twice a day and Lovenox 70 mg twice daily. Glucose controlled on Levemir 14 units. His hemoglobin A1c is 12.9% and his DKA on admission resolved 03/07/2022 Patient still feels generally weak and lethargic. However he has good appetite. He denies chest pain or abdominal pain. No dyspnea. He looks comfortable in bed. He had 1 small bowel movement, no diarrhea. Zee catheter in place with yellow urine. Patient procalcitonin significantly improved down to 0.15, however his culture showed Enterobacter resistant to ceftriaxone. Patient currently on oral Levaquin. We going to consult infectious disease team. WBC is 11.3. Sodium 129. Patient fever on admission has subsided since then. Neurologist on the case and recommended EMG and nerve conduction study as an outpatient. Patient currently on Lovenox 70 mg twice a day, Levemir insulin 14 units and amiodarone. Also he is on oral Protonix twice daily and IV fluids under lactate at 125 Patient tolerates some diet, lower rate elected down to 75 mL/h renal ultrasound order, follow-up results 03/08/2022 Patient is seen and evaluated in follow-up this morning with multiple medical consultations including neurology, pulmonary, infectious disease, orthopedics following. Plan is for possible lumbar decompression sometime this week. Have consulted general surgery as per nursing report patient had a large dark tarry stool this morning. Hemoglobin is stable at 9.7. Patient's sodium is 129 with a potassium of 3.7 current creatinine is stable at 0.42. Blood sugars have been elevated and will continue current regimen. WBC remains elevated and patient is maintained on cefepime and will continue. Oral intake continues to be fair to poor and patient continues to report back pain. Patient has been febrile. Pat ient denies chest pain or shortness of breath. Patient is extremely lethargic with generalized edema noted throughout. Will consult nephrology for hyponatremia 03/09/2022 Patient is seen and evaluated in follow-up this morning. Multiple medical consultations following including orthopedics, general surgery, nephrology, pulmonary, and infectious disease. Plan was for tentative decompression surgery with orthopedics although sodium continues to be low and nursing reported dark tarry stools and is being evaluated with EGD/colonoscopy that is to be done on . Patient will start bowel prep tomorrow and will monitor closely of labs. Abdomen ultrasound was ordered as well and patient is continue with indwelling Zee catheter. Patient currently maintained on antibiotics and will continue. Patient is maintained on clear liquids and tolerating appears more awake and alert than yesterday. Patient continues to be weak and denies chest pain or shortness of breath. Patient labs currently pending and nephrology is following for hyponatremia and was started on Lasix. 03/10/2022: I resumed care of the patient today Tolerating clear liquids. Tired. Pending surgery-Dr. Newton . Back pain controlled. Patient's had black starry stools. For colonoscopy per Dr. Pabon. 03/11/2022: Patient had soft brown stool today. Some abdominal discomfort. Pending colonoscopy today. Received bowel preparation. Patient received 1 dose of Samsca yesterday. Also IV Ferrlecit. 03/12/2022. Colonoscopic could not be done yesterday because of poor bowel preparation. Dark stool was encountered during start of colonoscopy. Patient back on clear liquids. Now rescheduled for Tuesday. 03/13/2022: Patient had bowel preparation done tomorrow for colonoscopy Tuesday. Tolerating liquid diet. 03/14/2022: On liquid diet. Getting bowel preparation for tomorrow. Otherwise stable. Discussed with patient. 03/15/2022: Complaining of mid back pain. Received bowel prep yesterday. Had 2- 3 bowel movements. Possible endoscopy today. Awaiting decision from Dr. Newton for lumbar surgery either this admission nor following some rehab 03/16/2022: wentdown for colonoscopy. Yesterday. Found to have large brown stool in the vault. Procedure canceled. Being rescheduled for . 03/17/2022: Liquid diet. Scheduled for colonoscopic . Intermittent back pain. Bowel prep for surgery. 03/18/2022: Underwent colonoscopy today. Unremarkable. Discussed with Dr. Santana from ID. Has a sacral wound. Like Dr. Pabon to debrided the same. Given that not a good idea to patient have lumbar surgery at this point. This should be postponed for later. 03/19/2022: Oral intake fair. Discussed with ID. Feels patient needs debridement. Discussed with Dr. Pabon. He feels that this point would not help. ID and Dr. Pabon will further discuss. Discussed with Dr. Newton after discussing with ID that present time not a good idea to reduce lumbar surgery this would be postponed. Told patient 03/21/2022 Patient is seen today with multiple medical consultations following. Continued on local wound care with general surgery following. Also continues on IV cefepime with ID following closely. Follow up on labs and continue to monitor closely. Will need to discuss with consultations about treatment plan moving forward. Afebrile. Continue with current medications and encourage oral intake. PT/OT to follow. 03/22/2022 Patient is seen in follow up this morning and continued on IV cefepime and awaiting urine culture. ID, nephrology, ortho, and general surgery following and continues with low grade temps. No plans for orthopedic surgical intervention at this time. Surgery reports no debridement of the wound. Continue with local wound care. Patient oral intake is fair and will continue to follow. 03/23/2022 Patient this morning is sleeping but arousable. Appears lethargic and not eating very much. Patient continues to have intermittent low grade temps and chest xray is ordered. Patient is significantly weak and will need ecf. Case management following. No plans for surgical intervention of the wounds and to continue local wound care. Ortho to see patient outpatient for possible surgical intervention once more stable. Awaiting am labs. 03/24/2022: Patient was being covered by [facility] hospitalist from March 20 through March 23. I resumed care of the patient today. reclining in bed. Oral intake good. Not for any surgical debridement by Dr. Pabon. Or the weak and patient picked up a fever. Put on IV cefepime. Disc ussed with ID Dr. Santana today. He will review the cultures and antibiotics and taken decision. Pain control. 03/25/2022: Comfortable. No new issues. Going to rehab today. Discussed with ID. 7 days of Ceftin. We will discharge her [place]. Let's talk form filled out and side effects discussed with the patient. Questions answered. Continue 1500 mL a day fluid restriction. Discussion and discharge planning more than 35 minutes Past medical history to include: Diabetes, possible ADHD, chronic low back pain, herniated disc, Social history: Son lives with the patient. 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 Smokes about a pack a day. Alcohol occasionally. Physical examination: VITAL SIGNS: 99.3, 71, 17, 120/71, 100% room air GENERAL: Awake, comfortable reclining in bed EYES: Pupils equal. Conjunctiva normal. HEENT: External appearance of nose and ears normal, oral cavity mucous membranes moist NECK: JVD not raised; masses not palpable. HEART: Heart sounds normal; no edema. LUNGS: Respiratory rate normal; decreased breath sounds. ABDOMEN: Soft, nontender, liver spleen not palpable, no masses palpable. Unstageble Sacral pressure ulcer, PSYCH: Answering questions appropriately INVESTIGATIONS, reviewed in the clinical context: 03/25/2022: WBC 11.3 hemoglobin 8.9 platelets 640 potassium 4.5 sodium 1:30 creatinine 0.51 Colonoscopy: Unremarkable March 10: WBC 11.7 hemoglobin 9.1 platelets 519 sodium 127 potassium 3.9 BUN 6 creatinine 0.51 serum osmolality 271 HbA1c: 12.9 Computed tomography scan brain: No acute processes reported March 03: Sodium 136 potassium 3 BUN 22 creatinine 0.50 albumin 2.2 WBC 36.7 hemoglobin 14.7 platelets 470 potassium 2.7 sodium 128 bicarb 9 BUN 25 crit 0.89 blood glucose 564 UA positive for ketone 4+, leukoesterase negative for nitrite Urine drug screen: Negative Serum acetone positive EKG tracing personally reviewed by me-heart rate 171, ST segment depression Chest x-ray film personally reviewed by me-prominent pulmonary artery. Elevated right diaphragm. 2-D echocardiogram: EF 55-60%. Assessment and plan: -Paroxysmal atrial fibrillation with a rapid ventricular rate, back in sinus rhythm Lopressor 100 mg twice a day. Oral amiodarone -IV heparin -discontinued Follow PTT -Diabetic ketoacidosis: Resolved -Black starry stools/acute GI bleed..: Resolved EGD showed mild gastritis and esophagitis. Coloscopy -unremarkable -Unstageable sacral, pressure ulcer, POA Seen by Dr. Pabon-not for debridement. Complete 7 more days of Ceftin -Diabetes mellitus type 2, Follow Accu-Cheks. Januvia -Acute metabolic encephalopathy, multifactorial, improved Computed tomography scan of brain unremarkable.. EEG-encephalopathy. No seizure.. Follow with Neurology -Severe hypokalemia: Better -Hypophosphatemia: Better Replace phosphorus -COPD in a current smoker Bronchodilators as needed -Chronic nicotine dependence, cigarette smoker Nicotine patch -Possibly SIADH . Received IV Samsca. 1500 mL a day fluid restriction -L2 S1 laminectomy and decompression, with lower extremity weakness for central spinal cord stenosis. Surgery Per Dr. Newton: To be postponed, outpatient given the sacral ulcer that may be debrided. Disposition: [facility] Patient Condition at Discharge: Serious Plan - Discharge Summary New Discharge Prescriptions: New Folic Acid 1 mg PO DAILY tab Metoprolol Tartrate [Lopressor] 50 mg PO BID tab Psyllium Husk 100% [Metamucil Packet] 6 gm PO DAILY #30 packet Sennosides [Senokot] 8.6 mg PO DAILY tab Acetaminophen Tab [Tylenol] 650 mg PO Q6HR PRN tab PRN Reason: Mild Pain Or Fever > 100.5 cefUROXime axetiL [Ceftin] 500 mg PO BID #14 tab Amiodarone [Cordarone] 200 mg PO DAILY tab Nicotine 21Mg/24Hr Patch [Habitrol] 1 patch TRANSDERM DAILY patch Furosemide [Lasix] 40 mg PO DAILY tab HYDROcodone/APAP 7.5-325MG [[place] 7.5-325] 1 each PO Q6HR PRN #12 tab PRN Reason: Pain INSULIN ASPART (NovoLOG) [NovoLOG (formulary)] 0 unit SQ ACHS each Continue sitaGLIPtin [Januvia] 100 mg PO DAILY Discontinued Dextroamphetamine/Amphetamine [Dextroamphetamine/Amphetamine 30 mg Tab] 30 mg PO BID Discharge Medication List sitaGLIPtin [Januvia] 100 mg PO DAILY 03/02/22 [History] Acetaminophen Tab [Tylenol] 650 mg PO Q6HR PRN tab 03/25/22 [Rx] Amiodarone [Cordarone] 200 mg PO DAILY tab 03/25/22 [Rx] Folic Acid 1 mg PO DAILY tab 03/25/22 [Rx] Furosemide [Lasix] 40 mg PO DAILY tab 03/25/22 [Rx] HYDROcodone/APAP 7.5-325MG [[place] 7.5-325] 1 each PO Q6HR PRN #12 tab 03/25/22 [Rx] INSULIN ASPART (NovoLOG) [NovoLOG (formulary)] 0 unit SQ ACHS each 03/25/22 [Rx] Metoprolol Tartrate [Lopressor] 50 mg PO BID tab 03/25/22 [Rx] Nicotine 21Mg/24Hr Patch [Habitrol] 1 patch TRANSDERM DAILY patch 03/25/22 [Rx] Psyllium Husk 100% [Metamucil Packet] 6 gm PO DAILY #30 packet 03/25/22 [Rx] Sennosides [Senokot] 8.6 mg PO DAILY tab 03/25/22 [Rx] cefUROXime axetiL [Ceftin] 500 mg PO BID #14 tab 03/25/22 [Rx] Follow up Appointment(s)/Referral(s): Rosalina Berry MD [STAFF PHYSICIAN] - As Needed Benjamin Mendez MD [Primary Care Provider] - 1-2 days [facility] [place] [place], [NON-STAFF] - As Needed Mark Newton DO [Doctor of Osteopathic Medicine] - As Needed Jim Eugene MD [STAFF PHYSICIAN] - 2 Weeks Activity/Diet/Wound Care/Special Instructions: Hem/Onc recommends 4-[address] f/u of adrenal mass Fluid restriction 1500 mL a day
[2022-03-25 15:32] VITALS: BP 94/59; PULSE 73; RESP 16; TEMP 100.5
--- NOTE | 2022-03-29 22:12 | CDI ---
Documentation Clarification Form Date: 03/29/2022 08:58:54 PM From: Luli Toney RN CCDS Admit Date: 03/01/2022 11:17:00 PM Patient Name: Misael Langley Visit Number: [id number] Discharge Date: 03/25/2022 04:24:00 PM ATTENTION: The Clinical Documentation Specialists (CDI) and [facility] Coding Staff appreciate your assistance in clarifying documentation. Please respond to the clarification below the line at the bottom and electronically sign. The CDI & [facility] Coding staff will review the response and follow-up if needed. Please note: Queries are made part of the Legal Health Record. If you have any questions, please contact the author of this message via ITS. Dr. Jerardo Guillen Unstageable heels documented 03/05, Medicine note. For each diagnosis, documentation must be clear to determine if the condition was present at the time of the patients inpatient admission or developed during the hospital stay. Additional clarification regarding the unstageable heels is requested. History/Risk Factors: 62-year-ols male presents to the ED for feeling weak and becoming less responsive. Medical History: DM, SIADH and chronic nicotine dependence. 03/02, H&P Clinical Indicators: Admitting Diagnosis: New onset atrial fibrillation with a rapid ventricular rate; Diabetic ketoacidosis and Acute metabolic encephalopathy. 03/02, H&P. 03/05, Nursing physical assessment: Bilateral heels pressure sore 03/05, Medicine note: Unstageable bluish decolorization of the sacrum and heels. 03/09, Stock Mixer: Areas of deep tissue injury on his heels especially on the right foot. Treatment: Turn 2QHR; Float Heels with pillows; Absorbent under pad, Prevalon boot Definition of Present on Admission (POA): A diagnosis present at the time the order for admission to inpatient status was written. Please clarify if the Bilateral heel unstageable heel ulcers was POA [ ] Y = Yes, the condition was present at the time of the order for inpatient admission. [ ] N = No, the condition was not present at the time of the order for inpatient admission. [ ] W = Clinically undetermined if the condition was present at the time of the order for inpatient admission. (Template Last Revised: July 2020) Bilateral heel unstageable heel ulcers, POA MTDD
--- NOTE | 2022-03-29 22:13 | CDI ---
Documentation Clarification Form Date: 03/29/2022 08:15:19 PM From: Luli Toney RN CCDS Admit Date: 03/01/2022 11:17:00 PM Patient Name: Misael Langley Visit Number: [id number] Discharge Date: 03/25/2022 04:24:00 PM ATTENTION: The Clinical Documentation Specialists (CDI) and [facility] Coding Staff appreciate your assistance in clarifying documentation. Please respond to the clarification below the line at the bottom and electronically sign. The CDI & [facility] Coding staff will review the response and follow-up if needed. Please note: Queries are made part of the Legal Health Record. If you have any questions, please contact the author of this message via ITS. Dr. Jerardo Guillen Conflicting documentation has been found in the medical record. As attending physician, please provide clarification. Stage 2 pressure ulcer, coccyx, 03/08, Director Financial Planning note. Unstageable, 03/10, Wound assessment in Nursing notes. History/Risk Factors: 62-year-ols male presents to the ED for feeling weak and becoming less responsive. Medical History: DM, SIADH and chronic nicotine dependence. 03/02, H&P Clinical Indicators: Admitting Diagnosis: New onset atrial fibrillation with a rapid ventricular rate; Diabetic ketoacidosis and Acute metabolic encephalopathy. 03/02, H&P. 03/08, Director Financial Planning note: The patient has developed stage II one on his coccyx for which a Opti form was applied. 03/10, Nursing assessment: Pressure injury POA deep tissue Treatment: 03/08 Opti foam with boarder; Offloading; absorbent under pad; Honey sheet applied to cleaned wound base, then placed gauze and sacral pressure dressing Please clarify which diagnosis is most appropriate: [ ] Type 2 pressure ulcer coccyx developed to unstageable Y = Yes, the condition was present at the time of the order for inpatient admission. [ ] Type 2 pressure ulcer coccyx Y = Yes, the condition was present at the time of the order for inpatient admission. [ ] Type 2 pressure ulcer coccyx N = No, the condition was not present at the time of the order for inpatient admission. [ ] Type 2 pressure ulcer coccyx developed to unstageable N = No, the condition was not present at the time of the order for inpatient admission. [ ] Type 2 pressure ulcer coccyx W = Clinically undetermined if the condition was present at the time of the order for inpatient admission. [ ] Type 2 pressure ulcer coccyx developed to deep tissue injury W = Clinically undetermined if the condition was present at the time of the order for inpatient admission. [ ] Other (please specify) [ ] Unable to determine (Template Last Revised: July 2020)_ Unstageable ulcer sacral/coccygeal, POA MTDD
--- NOTE | 2022-03-29 22:16 | CDI ---
Documentation Clarification Form Date: 03/29/2022 07:27:53 PM From: Luli Toney RN CCDS Admit Date: 03/01/2022 11:17:00 PM Patient Name: Misael Langley Visit Number: [id number] Discharge Date: 03/25/2022 04:24:00 PM ATTENTION: The Clinical Documentation Specialists (CDI) and [facility] Coding Staff appreciate your assistance in clarifying documentation. Please respond to the clarification below the line at the bottom and electronically sign. The CDI & [facility] Coding staff will review the response and follow-up if needed. Please note: Queries are made part of the Legal Health Record. If you have any questions, please contact the author of this message via ITS. Dr. Jerardo Guillen Sacrum pressure ulcer is documented 03/05, . For each diagnosis, documentation must be clear to determine if the condition was present at the time of the patients inpatient admission or developed during the hospital stay. Additional clarification regarding the sacrum pressure ulcer is requested. History/Risk Factors: 62-year-ols male presents to the ED for feeling weak and becoming less responsive. Medical History: DM, SIADH and chronic nicotine dependence. 03/02, H&P Clinical Indicators: Admitting Diagnosis: New onset atrial fibrillation with a rapid ventricular rate; Diabetic ketoacidosis and Acute metabolic encephalopathy. 03/02, H&P. 03/05 Medicine note: Unstageable bluish decolorization of the sacrum 03/25, Discharge summary: Unstageable sacral pressure ulcer, POA Treatment: 03/05 Opti foam; 03/15 Medi honey, moist dressing; Offloading; absorbent under pad. Definition of Present on Admission (POA): A diagnosis present at the time the order for admission to inpatient status was written. Please clarify if the Sacrum pressure ulcer was POA [ ] Y = Yes, the condition was present at the time of the order for inpatient admission. [ ] N = No, the condition was not present at the time of the order for inpatient admission. [ ] W = Clinically undetermined if the condition was present at the time of the order for inpatient admission. (Template Last Revised: July 2020) Unstageable sacral pressure ulcer, POA MTDD
--- NOTE | 2022-03-29 22:17 | CDI ---
Documentation Clarification Form Date: 03/29/2022 09:44:40 PM From: Luli Toney RN CCDS Admit Date: 03/01/2022 11:17:00 PM Patient Name: Misael Langley Visit Number: [id number] Discharge Date: 03/25/2022 04:24:00 PM ATTENTION: The Clinical Documentation Specialists (CDI) and [facility] Coding Staff appreciate your assistance in clarifying documentation. Please respond to the clarification below the line at the bottom and electronically sign. The CDI & [facility] Coding staff will review the response and follow-up if needed. Please note: Queries are made part of the Legal Health Record. If you have any questions, please contact the author of this message via ITS. Dr. Jerardo Guillen Bilateral feet deep tissue ulcers is documented 03/08, Copy Writer note. For each diagnosis, documentation must be clear to determine if the condition was present at the time of the patients inpatient admission or developed during the hospital stay. Additional clarification regarding the Bilateral feet ulcer is requested. History/Risk Factors: 62-year-ols male presents to the ED for feeling weak and becoming less responsive. Medical History: DM, SIADH and chronic nicotine dependence. 03/02, H&P Clinical Indicators: Admitting Diagnosis: New onset atrial fibrillation with a rapid ventricular rate; Diabetic ketoacidosis and Acute metabolic encephalopathy. 03/02, H&P. 03/08, Copy Writer note: The patient also has many boots to protect his heels as the patient has developed deep tissue injury to his feet bilaterally. 03/05, Nursing assessment: Left ball foot Purple non blanchable area 03/08, Nursing Pressure assessment: Right foot POA Deep tissue injury. Treatment: Prevalon boot turn 2QHR: Optifoam gentle liquitrap bordered Definition of Present on Admission (POA): A diagnosis present at the time the order for admission to inpatient status was written. Please clarify if the Bilateral Feet ulcers was POA [ ] Y = Yes, the condition was present at the time of the order for inpatient admission. [ ] N = No, the condition was not present at the time of the order for inpatient admission. [ ] W = Clinically undetermined if the condition was present at the time of the order for inpatient admission. (Template Last Revised: July 2020) Unable to determine MTDD
== END 2022-03-25 16:24 | disposition home or self-care (01) | DRG 308 ==
LOC: EC 20:10 → 3SCARD 23:17 → 2SICU 03-02 00:35 → 4SSUR 03-06 22:48
PROVIDERS: ADMIT Hospitalist; ATTEND Hospitalist
PROC: 0D9670Z Drainage of Stomach with Drainage Device, Via Natural or Artificial Opening (ICD-10-PCS; 2022-03-02)
PROC: 0DB78ZZ Excision of Stomach, Pylorus, Via Natural or Artificial Opening Endoscopic (ICD-10-PCS; 2022-03-09)
PROC: 0DB38ZZ Excision of Lower Esophagus, Via Natural or Artificial Opening Endoscopic (ICD-10-PCS; principal; 2022-03-09 07:30)
PROC: 0DJDXZZ Inspection of Lower Intestinal Tract, External Approach (ICD-10-PCS; 2022-03-11)
PROC: 0DJDXZZ Inspection of Lower Intestinal Tract, External Approach (ICD-10-PCS; 2022-03-15)
PROC: 0DJD8ZZ Inspection of Lower Intestinal Tract, Via Natural or Artificial Opening Endoscopic (ICD-10-PCS; 2022-03-18)
DX: I48.0 Paroxysmal atrial fibrillation (principal); E11.10 Type 2 diabetes mellitus with ketoacidosis without coma; G92.8 Other toxic encephalopathy; K22.11 Ulcer of esophagus with bleeding; K29.51 Unspecified chronic gastritis with bleeding; E22.2 Syndrome of inappropriate secretion of antidiuretic hormone; K82.1 Hydrops of gallbladder; R18.8 Other ascites; E87.3 Alkalosis; B37.49 Other urogenital candidiasis; T83.518A Infection and inflammatory reaction due to other urinary catheter, initial encounter; K92.1 Melena; Z16.19 Resistance to other specified beta lactam antibiotics; I47.1 Supraventricular tachycardia; I48.92 Unspecified atrial flutter; D50.0 Iron deficiency anemia secondary to blood loss (chronic); J44.9 Chronic obstructive pulmonary disease, unspecified; I34.0 Nonrheumatic mitral (valve) insufficiency; L89.150 Pressure ulcer of sacral region, unstageable; E83.39 Other disorders of phosphorus metabolism; E88.09 Other disorders of plasma-protein metabolism, not elsewhere classified; L89.620 Pressure ulcer of left heel, unstageable; L89.610 Pressure ulcer of right heel, unstageable; K80.20 Calculus of gallbladder without cholecystitis without obstruction; F17.210 Nicotine dependence, cigarettes, uncomplicated; K56.41 Fecal impaction; Z53.8 Procedure and treatment not carried out for other reasons; K57.30 Diverticulosis of large intestine without perforation or abscess without bleeding; F90.9 Attention-deficit hyperactivity disorder, unspecified type; E87.6 Hypokalemia; M51.36 Other intervertebral disc degeneration, lumbar region; M51.26 Other intervertebral disc displacement, lumbar region; M48.061 Spinal stenosis, lumbar region without neurogenic claudication; R32 Unspecified urinary incontinence; R15.9 Full incontinence of feces; B95.2 Enterococcus as the cause of diseases classified elsewhere; E87.70 Fluid overload, unspecified; D35.01 Benign neoplasm of right adrenal gland; E86.0 Dehydration; E86.1 Hypovolemia; T50.2X5A Adverse effect of carbonic-anhydrase inhibitors, benzothiadiazides and other diuretics, initial encounter; G89.29 Other chronic pain; I49.3 Ventricular premature depolarization; I49.1 Atrial premature depolarization; Y84.6 Urinary catheterization as the cause of abnormal reaction of the patient, or of later complication, without mention of misadventure at the time of the procedure; Z28.310 Unvaccinated for COVID-19; Z89.519 Acquired absence of unspecified leg below knee; Z79.84 Long term (current) use of oral hypoglycemic drugs; Z79.899 Other long term (current) drug therapy; Z95.0 Presence of cardiac pacemaker; Z91.81 History of falling
CPT/HCPCS: 36410; 36415; 43239; 45330; 45378; 70450; 71045; 72131; 72146; 72148; 74178; 76770; 76937; 80048; 80051; 80053; 80306; 81001; 82009; 82088; 82140; 82533; 82550; 82565; 82607; 82728; 82746; 82803; 82947; 83036; 83540; 83550; 83735; 83835; 83880; 83930; 83935; 84100; 84132; 84145; 84244; 84295; 84300; 84443; 84484; 84520; 85025; 85027; 85610; 85730; 86140; 87040; 87077; 87086; 87186; 88305; 88312; 93005; 93306; 95816; 96361; 96365; 96366; 96375; 99291

== ENCOUNTER 2022-09-10 20:43 | Inpatient (IN) | payer OTHER ==
[2022-09-10] MEDS ORDERED: SODIUM CHLORIDE 0.9% 500 ML 500 ML IV STA (21:24)
[2022-09-10] MEDS ORDERED: SODIUM CHLORIDE 0.9% 1,000 ML IV ONE (21:25)
[2022-09-10 22:01] LABS: Basophils % (A) 0 %; Eosinophils % (A) 0 %; HCT 38.3 % (39.0-53.0); HGB 12.7 gm/dL (13.0-17.5); Lymphocytes # (A) 0.4 k/uL (1.0-4.8); Lymphocytes % (A) 3 %; MCH 27.5 pg (25.0-35.0); MCHC 33.1 g/dL (31.0-37.0); MCV 83.1 fL (80.0-100.0); Mean Platelet Volume 7.1; Monocytes # (A) 0.4 k/uL (0-1.0); Monocytes % (A) 3 %; Neutrophils % (A) 93 %; Platelet Count 252 k/uL (150-450); RBC 4.61 m/uL (4.30-5.90)
[2022-09-10] MEDS ORDERED: IBUPROFEN 600 MG TAB PO STA (22:01)
--- NOTE | 2022-09-10 22:03 | XR ---
EXAMINATION TYPE: XR chest 2V DATE OF EXAM: 09/10/2022 9:58 PM COMPARISON: Chest radiographs from 03/23/2022 TECHNIQUE: XR chest 2V Frontal and lateral views of the chest. CLINICAL INDICATION:Male, 62 years old with history of fever; FINDINGS: Lungs/Pleura: There is no evidence of pleural effusion, focal consolidation, or pneumothorax. Pulmonary vascularity: Unremarkable. Heart/mediastinum: Cardiomediastinal silhouette is unremarkable. Musculoskeletal: No acute osseous pathology. IMPRESSION: No acute cardiopulmonary disease/process. No significant change from prior.
--- NOTE | 2022-09-10 22:06 | CT ---
EXAMINATION TYPE: CT brain wo con CT DLP: 1094.4 mGycm, Automated exposure control for dose reduction was used. DATE OF EXAM: 09/10/2022 9:59 PM COMPARISON: 03/03/2022. CLINICAL INDICATION:Male, 62 years old with history of Altered mental status, AMS TECHNIQUE: Brain: Axial CT images of the brain were obtained with coronal and sagittal reformats created and rev iewed. Contrast used: None. Oral contrast used: None. FINDINGS: Brain: Extra-axial spaces: No abnormal extra-axial fluid collections. Ventricular system: Within normal limits Cerebral parenchyma: No acute intraparenchymal hemorrhage or mass effect. The talley-white junction is well differentiated. Cerebellum: Unremarkable. Mass effect: No evidence of midline shift. Intracranial vasculature: unremarkable Soft tissues: Normal. Calvarium/osseous structures: No depressed skull fracture. Paranasal sinuses and mastoid air cells: Mild scattered paranasal sinus disease. Bilateral mastoid ai r cell effusions. Visualized orbits: Orbital contents are intact. IMPRESSION: 1. No acute intracranial process. 2. Bilateral mastoid air cell effusions.
[2022-09-10 22:12] LABS: Partial Thromboplastin Time 26.6 sec (22.0-30.0); Prothrombin Time 10.7 sec (9.0-12.0)
[2022-09-10 22:24] LABS: ALT 15 U/L (4-49); AST 20 U/L (17-59); African American GFR (CKD) >90 (>60 ml/min/1.73 sqM); Albumin 3.7 g/dL (3.5-5.0); Alcohol <10 mg/dL; Alkaline Phosphatase 54 U/L (38-126); Anion Gap 10 mmol/L; Blood Urea Nitrogen 17 mg/dL (9-20); Calcium 8.7 mg/dL (8.4-10.2); Carbon Dioxide 24 mmol/L (22-30); Chloride 99 mmol/L (98-107); Glucose 112 mg/dL (74-99); Non-African American GFR(CKD) >90 (>60 ml/min/1.73 sqM); Potassium 4.4 mmol/L (3.5-5.1); Sodium 133 mmol/L (137-145); Total Bilirubin 0.4 mg/dL (0.2-1.3); Total Protein 7.5 g/dL (6.3-8.2)
--- NOTE | 2022-09-10 22:43 | ED ---
Fever HPI - General Chief Complaint: Fever Stated Complaint: AMS Time Seen by Provider: 09/10/22 20:51 Source: patient Mode of arrival: EMS - History of Present Illness Initial Comments: 62-year-old male presents to the emergency department from [facility]. Patient went to dinner with his family around 4 PM. It was reported that he smoked marijuana. Around 6:00 they stated that he became altered and felt warm. His temperature was 102.7. He was given Tylenol at 750 pm. Family states that smoking marijuana is not new for the patient. Patient arrives and is able to answer questions appropriately. Admits that he feels sweaty however he has no other complaints. No earache or sore throat. No headache or visual changes. No trauma. No neck or back pain. He denies shortness of breath or chest pain. No abdominal pain. No changes in his bowel or bladder habits. Denies any sick contacts. No other alleviating, precipitating or modifying factors - Related Data Home Medications Medication Instructions Recorded Confirmed sitaGLIPtin [Januvia] 100 mg PO HS@199903/02/22 09/11/22 Acetaminophen [Tylenol Arthritis] 650 mg PO Q6H PRN 09/11/22 09/11/22 Calcium Carbonate [Tums] 1,000 mg PO TID PRN 09/11/22 09/11/22 INSULIN ASPART (NovoLOG) [N[facility]LOG 5 unit [facility] 09/11/[facility] 09/11/22 (formulary)] INSULIN ASPART (NovoLOG) [NovoLOG See Protocol SQ [facility] 09/11/22 09/11/22 (formulary)] Insulin Detemir (Levemir) [Levemir] 10 unit SQ HS@199909/11/22 09/11/22 Loperamide [Imodium] 2 mg PO BID PRN 09/11/22 09/11/22 Melatonin 5 mg PO HS@199909/11/22 09/11/22 Metoprolol Tartrate [Lopressor] 25 mg PO BID 09/11/22 09/11/22 Multivitamins, Thera [Multivitamin 1 tab PO DAILY 09/11/22 09/11/22 (formulary)] polyethylene glycoL 3350 [Miralax] 17 gm PO DAILY 09/11/22 09/11/22 Previous Rx's Medication Instructions Recorded Amiodarone [Cordarone] 200 mg PO DAILY tab 03/25/22 Folic Acid 1 mg PO DAILY tab 03/25/22 Furosemide [Lasix] 40 mg PO DAILY tab 03/25/22 Sennosides [Senokot] 8.6 mg PO DAILY tab 03/25/22 Amoxic-Pot Clav 875-125Mg 1 tab PO Q12HR 10 Days #20 tab 09/15/22 [Augmentin 875-125] HYDROcodone/APAP 7.5-325MG [[place] 1 tab PO Q6HR PRN #4 tab 09/15/22 7.5-325] Tamsulosin [Flomax] 0.4 mg PO PC-BRKFST cap 09/15/22 Allergies Allergy/AdvReac Type Severity Reaction Status Date / Time No Known Allergies Allergy Verified 09/11/22 13:18 Review of Systems ROS Statement: Those systems with pertinent positive or pertinent negative responses have been documented in the HPI. ROS Other: All systems not noted in ROS Statement are negative. Past Medical History Past Medical History: Diabetes Mellitus History of Any Multi-Drug Resistant Organisms: None Reported Past Surgical History: Orthopedic Surgery Additional Past Surgical History / Comment(s): back pain son states pt recently "slipped a disc" taking gabapentin. Past Psychological History: No Psychological Hx Reported Smoking Status: Current every day smoker Past Alcohol Use History: Rare Past Drug Use History: None Reported General Exam General appearance: alert, in no apparent distress Head exam: Present: atraumatic, normocephalic, normal inspection Eye exam: Present: normal appearance, PERRL, EOMI. Absent: scleral icterus, conjunctival injection, periorbital swelling ENT exam: Present: normal exam, mucous membranes moist Neck exam: Present: normal inspection. Absent: tenderness, meningismus, lymphadenopathy Respiratory exam: Present: normal lung sounds bilaterally. Absent: respiratory distress, wheezes, rales, rhonchi, stridor Cardiovascular Exam: Present: regular rate, normal rhythm, normal heart sounds. Absent: systolic murmur, diastolic murmur, rubs, gallop, clicks GI/Abdominal exam: Present: soft, normal bowel sounds. Absent: distended, tenderness, guarding, rebound, rigid Extremities exam: Present: normal inspection, full ROM, normal capillary refill. Absent: tenderness, pedal edema, joint swelling, calf tenderness Back exam: Present: normal inspection Neurological exam: Present: alert, oriented X3, CN II-XII intact Psychiatric exam: Present: normal mood, flat affect Skin exam: Present: warm, dry, intact, normal color. Absent: rash Course Vital Signs 09/10/22 09/10/22 09/10/22 20:44 22:00 23:00 Temperature 103 F H 103.0 F H 102.9 F H Pulse Rate 93 92 90 Respiratory 18 18 16 Rate Blood Pressure 130/74 148/80 113/68 O2 Sat by Pulse 98 Oximetry Medical Decision Making - Medical Decision Making Was pt. sent in by a medical professional or institution (, SAMIR, ROAD ENGINEER, urgent care, hospital, or prison...) When possible be specific @ -ECF Did you speak to anyone other than the patient for history (EMS, parent, family, police, friend...)? What history was obtained from this source @ -EMS Did you review nursing and triage notes (agree or disagree)? Why? @ -I reviewed and agree with nursing and triage notes Were old charts reviewed (outside hosp., previous admission, EMS record, old EKG, old radiological studies, urgent care reports/EKG's, prison records)? Report findings @ -old charts were reviewed Differential Diagnosis (chest pain, altered mental status, abdominal pain women, abdominal pain men, vaginal bleeding, weakness, fever, dyspnea, syncope, headache, dizziness, GI bleed, back pain, seizure, CVA, palpatations, mental health, musculoskeletal)? @ -aecopd, aechf, pneumonia, pleural effusion, pe, uti EKG interpreted by me (3pts min.). @ -yes X-rays interpreted by me (1pt min.). @ -yes CT interpreted by me (1pt min.). @ -yes U/S interpreted by me (1pt. min.). @ -None done What testing was considered but not performed or refused? (CT, X-rays, U/S, labs)? Why? @ -None What meds were considered but not given or refused? Why? @ -None Did you discuss the management of the patient with other professionals (professionals i.e. SAMIR Lucero, ROAD ENGINEER, lab, RT, psych nurse, social science research assistant, manager student services, teacher, public service officer, guest experience manager)? Give summary @ -Dr. newsome who will admit the patient Was smoking cessation discussed for >3mins.? @ -No Was critical care preformed (if so, how long)? @ -No Were there social determinants of health that impacted care today? How? (Homelessness, low income, unemployed, alcoholism, drug addiction, transportation, low edu. Level, literacy, decrease access to med. care, [facility], rehab)? @ -No Was there de-escalation of care discussed even if they declined (Discuss DNR or withdrawal of care, Hospice)? DNR status @ -No What co-morbidities impacted this encounter? (DM, HTN, Smoking, COPD, CAD, Cancer, CVA, ARF, Chemo, Hep., AIDS, mental health diagnosis, sleep apnea, morbi d obesity)? @ -none Was patient admitted / discharged? Hospital course, mention meds given and route, prescriptions, significant lab abnormalities, going to OR and other pertinent info. @ -Upon arrival patient was placed into room 6. A thorough history and physical exam is performed. Patient does answer all questions appropriately. Denies any neck stiffness. He is agreeable to laboratory testing which is remarkable for white count of 14. Viral swabs are negative. Chest x-ray demonstrates no acute process. CT brain demonstrates bilateral mastoid air cell effusions. The patient has no clinical concern for mastoiditis. UA is pending at this time. Blood cultures obtained. Patient will be admitted for fever. Spoke with Dr. newsome who is agreeable to admit the patient Undiagnosed new problem with uncertain prognosis? @ -yes Drug Therapy requiring intensive monitoring for toxicity (Heparin, Nitro, Insulin, Cardizem)? @ -No Were any procedures done? @ -No Diagnosis/symptom? @ -acute pyrexia Acute, or Chronic, or Acute on Chronic? @ -acute on chronic Uncomplicated (without systemic symptoms) or Complicated (systemic symptoms)? @ -complicated Side effects of treatment? @ -No Exacerbation, Progression, or Severe Exacerbation? @ no Poses a threat to life or bodily function? How? (Chest pain, [place], [place], pneumonia, PE, COPD, DKA, ARF, appy, cholecystitis, CVA, Diverticulitis, Homicidal, Suicidal, threat to staff... and all critical care pts) @ -yes - Lab Data Result diagrams: 09/14/22 06:47 09/14/22 06:47 Lab Results 09/10/22 09/10/22 09/10/22 Range/Units 01:45 01:45 20:50 WBC 14.0 H (3.8-10.6) k/uL RBC 4.61 (4.30-5.90) m/uL Hgb 12.7 L (13.0-17.5) gm/dL Hct 38.3 L (39.0-53.0) % MCV 83.1 (80.0-100.0) fL MCH 27.5 (25.0-35.0) pg MCHC 33.1 (31.0-37.0) g/dL RDW 14.0 (11.5-15.5) % Plt Count 252 (150-450) k/uL MPV 7.1 Neutrophils % 93 % Lymphocytes % 3 % Monocytes % 3 % Eosinophils % 0 % Basophils % 0 % Neutrophils # 13.0 H (1.3-7.7) k/uL Lymphocytes # 0.4 L (1.0-4.8) k/uL Monocytes # 0.4 (0-1.0) k/uL Eosinophils # 0.0 (0-0.7) k/uL Basophils # 0.0 (0-0.2) k/uL PT (9.0-12.0) sec INR (<1.2) APTT (22.0-30.0) sec Sodium (137-145) mmol/L Potassium (3.5-5.1) mmol/L Chloride (98-107) mmol/L Carbon Dioxide (22-30) mmol/L Anion Gap mmol/L BUN (9-20) mg/dL Creatinine (0.66-1.25) mg/dL Est GFR (CKD-EPI)AfAm (>60 ml/min/1.73 sqM) Est GFR (CKD-EPI)NonAf (>60 ml/min/1.73 sqM) Glucose (74-99) mg/dL Plasma Lactic Acid Jermain (0.7-2.0) mmol/L Calcium (8.4-10.2) mg/dL Total Bilirubin (0.2-1.3) mg/dL AST (17-59) U/L ALT (4-49) U/L Alkaline Phosphatase (38-126) U/L Troponin I (0.000-0.034) ng/mL Total Protein (6.3-8.2) g/dL Albumin (3.5-5.0) g/dL Urine Color Yellow Urine Appearance Clear (Clear) Urine pH 5.5 (5.0-8.0) Ur Specific [place] 1.021 (1.001-1.035) Urine Protein Trace H (Negative) Urine Glucose (UA) Negative (Negative) Urine Ketones Trace H (Negative) Urine Blood Small H (Negative) Urine Nitrite Negative (Negative) Urine Bilirubin Negative (Negative) Urine Urobilinogen <2.0 (<2.0) mg/dL Ur Leukocyte Esterase Large H (Negative) Urine RBC 27 H (0-5) /hpf Urine WBC 31 H (0-5) /hpf Urine Bacteria Rare H (None) /hpf Urine Mucus Rare H (None) /hpf Ur Yeast w Hyphae Rare (None) /hpf Urine Yeast (Budding) Rare H (None) /hpf Urine Opiates Screen Detected H (NotDetected) Ur Oxycodone Screen Not Detected (NotDetected) Urine Methadone Screen Not Detected (NotDetected) Ur Propoxyphene Screen Not Detected (NotDetected) Ur Barbiturates Screen Not Detected (NotDetected) U Tricyclic Antidepress Not Detected (NotDetected) Ur Phencyclidine Scrn Not Detected (NotDetected) Ur Amphetamines Screen Detected H (NotDetected) U Methamphetamines Scrn Detected H (NotDetected) U Benzodiazepines Scrn Not Detected (NotDetected) Urine Cocaine Screen Not Detected (NotDetected) U Marijuana (THC) Screen Detected H (NotDetected) Serum Alcohol mg/dL Influenza Type A (PCR) (Not Detectd) Influenza Type B (PCR) (Not Detectd) RSV (PCR) (Not Detectd) SARS-CoV-2 (PCR) (Not Detectd) 09/10/22 09/10/22 09/10/22 Range/Units 20:50 20:50 20:50 WBC (3.8-10.6) k/uL RBC (4.30-5.90) m/uL Hgb (13.0-17.5) gm/dL Hct (39.0-53.0) % MCV (80.0-100.0) fL MCH (25.0-35.0) pg MCHC (31.0-37.0) g/dL RDW (11.5-15.5) % Plt Count (150-450) k/uL MPV Neutrophils % % Lymphocytes % % Monocytes % % Eosinophils % % Basophils % % Neutrophils # (1.3-7.7) k/uL Lymphocytes # (1.0-4.8) k/uL Monocytes # (0-1.0) k/uL Eosinophils # (0-0.7) k/uL Basophils # (0-0.2) k/uL PT 10.7 (9.0-12.0) sec INR 1.0 (<1.2) APTT 26.6 (22.0-30.0) sec Sodium 133 L (137-145) mmol/L Potassium 4.4 (3.5-5.1) mmol/L Chloride 99 (98-107) mmol/L Carbon Dioxide 24 (22-30) mmol/L Anion Gap 10 mmol/L BUN 17 (9-20) mg/dL Creatinine 0.65 L (0.66-1.25) mg/dL Est GFR (CKD-EPI)AfAm >90 (>60 ml/min/1.73 sqM) Est GFR (CKD-EPI)NonAf >90 (>60 ml/min/1.73 sqM) Glucose 112 H (74-99) mg/dL Plasma Lactic Acid Jermain 1.3 (0.7-2.0) mmol/L Calcium 8.7 (8.4-10.2) mg/dL Total Bilirubin 0.4 (0.2-1.3) mg/dL AST 20 (17-59) U/L ALT 15 (4-49) U/L Alkaline Phosphatase 54 (38-126) U/L Troponin I (0.000-0.034) ng/mL Total Protein 7.5 (6.3-8.2) g/dL Albumin 3.7 (3.5-5.0) g/dL Urine Color Urine Appearance (Clear) Urine pH (5.0-8.0) Ur Specific [place] (1.001-1.035) Urine Protein (Negative) Urine Glucose (UA) (Negative) Urine Ketones (Negative) Urine Blood (Negative) Urine Nitrite (Negative) Urine Bilirubin (Negative) Urine Urobilinogen (<2.0) mg/dL Ur Leukocyte Esterase (Negative) Urine RBC (0-5) /hpf Urine WBC (0-5) /hpf Urine Bacteria (None) /hpf Urine Mucus (None) /hpf Ur Yeast w Hyphae (None) /hpf Urine Yeast (Budding) (None) /hpf Urine Opiates Screen (NotDetected) Ur Oxycodone Screen (NotDetected) Urine Methadone Screen (NotDetected) Ur Propoxyphene Screen (NotDetected) Ur Barbiturates Screen (NotDetected) U Tricyclic Antidepress (NotDetected) Ur Phencyclidine Scrn (NotDetected) Ur Amphetamines Screen (NotDetected) U Methamphetamines Scrn (NotDetected) U Benzodiazepines Scrn (NotDetected) Urine Cocaine Screen (NotDetected) U Marijuana (THC) Screen (NotDetected) Serum Alcohol <10 mg/dL Influenza Type A (PCR) (Not Detectd) Influenza Type B (PCR) (Not Detectd) RSV (PCR) (Not Detectd) SARS-CoV-2 (PCR) (Not Detectd) 09/10/22 09/10/22 Range/Units 20:50 21:35 WBC (3.8-10.6) k/uL RBC (4.30-5.90) m/uL Hgb (13.0-17.5) gm/dL Hct (39.0-53.0) % MCV (80.0-100.0) fL MCH (25.0-35.0) pg MCHC (31.0-37.0) g/dL RDW (11.5-15.5) % Plt Count (150-450) k/uL MPV Neutrophils % % Lymphocytes % % Monocytes % % Eosinophils % % Basophils % % Neutrophils # (1.3-7.7) k/uL Lymphocytes # (1.0-4.8) k/uL Monocytes # (0-1.0) k/uL Eosinophils # (0-0.7) k/uL Basophils # (0-0.2) k/uL PT (9.0-12.0) sec INR (<1.2) APTT (22.0-30.0) sec Sodium (137-145) mmol/L Potassium (3.5-5.1) mmol/L Chloride (98-107) mmol/L Carbon Dioxide (22-30) mmol/L Anion Gap mmol/L BUN (9-20) mg/dL Creatinine (0.66-1.25) mg/dL Est GFR (CKD-EPI)AfAm (>60 ml/min/1.73 sqM) Est GFR (CKD-EPI)NonAf (>60 ml/min/1.73 sqM) Glucose (74-99) mg/dL Plasma Lactic Acid Jermain (0.7-2.0) mmol/L Calcium (8.4-10.2) mg/dL Total Bilirubin (0.2-1.3) mg/dL AST (17-59) U/L ALT (4-49) U/L Alkaline Phosphatase (38-126) U/L Troponin I <0.012 (0.000-0.034) ng/mL Total Protein (6.3-8.2) g/dL Albumin (3.5-5.0) g/dL Urine Color Urine Appearance (Clear) Urine pH (5.0-8.0) Ur Specific [place] (1.001-1.035) Urine Protein (Negative) Urine Glucose (UA) (Negative) Urine Ketones (Negative) Urine Blood (Negative) Urine Nitrite (Negative) Urine Bilirubin (Negative) Urine Urobilinogen (<2.0) mg/dL Ur Leukocyte Esterase (Negative) Urine RBC (0-5) /hpf Urine WBC (0-5) /hpf Urine Bacteria (None) /hpf Urine Mucus (None) /hpf Ur Yeast w Hyphae (None) /hpf Urine Yeast (Budding) (None) /hpf Urine Opiates Screen (NotDetected) Ur Oxycodone Screen (NotDetected) Urine Methadone Screen (NotDetected) Ur Propoxyphene Screen (NotDetected) Ur Barbiturates Screen (NotDetected) U Tricyclic Antidepress (NotDetected) Ur Phencyclidine Scrn (NotDetected) Ur Amphetamines Screen (NotDetected) U Methamphetamines Scrn (NotDetected) U Benzodiazepines Scrn (NotDetected) Urine Cocaine Screen (NotDetected) U Marijuana (THC) Screen (NotDetected) Serum Alcohol mg/dL Influenza Type A (PCR) Not Detected (Not Detectd) Influenza Type B (PCR) Not Detected (Not Detectd) RSV (PCR) Not Detected (Not Detectd) SARS-CoV-2 (PCR) Not Detected (Not Detectd) - EKG Data EKG Comments: EKG demonstrates sinus rhythm with a rate of 94. WA interval 145. QRS 105. QTC of 407. No acute ST segment elevations or depressions Disposition Clinical Impression: Fever Disposition: ADMITTED IP TO THIS HOSP Condition: Stable Is patient prescribed a controlled substance at d/c from ED?: No Time of Disposition: 00:00 Decision to Admit Reason: Admit from EC Decision Date: 09/11/22 Decision Time: 00:00
[2022-09-11] MEDS ORDERED: NALOXONE 0.4 MG/ML 1 ML VIAL IV PRN
[2022-09-11] MEDS: SODIUM CHLORIDE 0.9% 1,000 ML IV SCH ×4 (00:04→18:21)
[2022-09-11] MEDS: PIPERACILLIN-TAZOBACTAM 3.375 GM in SODIUM CHLORIDE 0.9% 100 ML IVPB SCH ×3 (02:02→18:21)
[2022-09-11 02:11] LABS: Appearance,Urine Clear (Clear); Bacteria,Urine Rare /hpf; Bilirubin,Urine Negative (Negative); Blood,Urine Small (Negative); Budding Yeast,Urine Rare /hpf; Color,Urine Yellow; Glucose,Urine (UA) Negative (Negative); Hyphae Yeast, Urine Rare /hpf; Ketones,Urine Trace (Negative); Leukocyte Esterase,Urine Large (Negative); Mucus,Urine Rare /hpf; Nitrite,Urine Negative (Negative); PH, Urine 5.5 (5.0-8.0); Protein,Urine Trace (Negative); RBC,Urine 27 /hpf (0-5); Specific Gravity,Urine 1.021 (1.001-1.035); Urobilinogen,Urine <2.0 mg/dL (<2.0); WBC,Urine 31 /hpf (0-5)
[2022-09-11 02:32] LABS: Amphetamine Screen,Urine Detected (NotDetected); Cocaine Screen,Urine Not Detected (NotDetected); Opiate Screen,Urine Detected (NotDetected); Phencyclidine Screen,Urine Not Detected (NotDetected)
[2022-09-11 02:33] LABS: Barbiturate Screen,Urine Not Detected (NotDetected); Benzodiazepines Screen,Urine Not Detected (NotDetected); Methadone Screen, Urine Not Detected (NotDetected); Oxycodone Screen, Urine Not Detected (NotDetected); Tricyclic Antidepressant,Urine Not Detected (NotDetected); Urn Cannabinoid Scrn Detected (NotDetected)
[2022-09-11] MEDS: ACETAMINOPHEN TAB 325 MG TAB PO PRN ×2 (09:01→18:30)
[2022-09-11] MEDS: IBUPROFEN 400 MG TAB PO PRN ×2 (09:01→18:30)
[2022-09-11] MEDS ORDERED: DEXTROSE 50% SYRINGE 50 ML IVP PRN ×2 (10:23)
[2022-09-11 12:16] LABS: Basophils % (A) 0 %; Eosinophils % (A) 0 %; HCT 36.7 % (39.0-53.0); HGB 11.9 gm/dL (13.0-17.5); Lymphocytes # (A) 0.6 k/uL (1.0-4.8); Lymphocytes % (A) 4 %; MCH 27.4 pg (25.0-35.0); MCHC 32.4 g/dL (31.0-37.0); MCV 84.5 fL (80.0-100.0); Mean Platelet Volume 7.3; Monocytes # (A) 0.4 k/uL (0-1.0); Monocytes % (A) 3 %; Neutrophils # (A) 13.5 k/uL (1.3-7.7); Neutrophils % (A) 92 %; Platelet Count 213 k/uL (150-450); RBC 4.34 m/uL (4.30-5.90); RDW 14.1 % (11.5-15.5); WBC 14.7 k/uL (3.8-10.6)
[2022-09-11 12:56] LABS: Glucose,Whole Blood 151 mg/dL (70-110)
[2022-09-11] MEDS: INSULIN ASPART (NovoLOG) 100 UNIT/ML VIAL SQ SCH ×2 (13:13→18:27)
[2022-09-11 16:25] VITALS: BMI 23.4
[2022-09-11 17:46] LABS: Glucose,Whole Blood 196 mg/dL (70-110)
[2022-09-11] MEDS ORDERED: VANCOMYCIN 1,250 MG in SODIUM CHLORIDE 0.9% 250 ML IVPB SCH (19:00)
[2022-09-11] MEDS ORDERED: CALCIUM CARBONATE 500 MG CHEWABLE PO PRN (19:35)
[2022-09-11] MEDS ORDERED: HYDROcodone/APAP 7.5-325MG 1 EACH TAB PO PRN (19:35)
[2022-09-11] MEDS ORDERED: LOPERAMIDE 2 MG CAP PO PRN (19:35)
[2022-09-11] MEDS ORDERED: ONDANSETRON 4 MG/2 ML VIAL IVP PRN (19:42)
[2022-09-11] MEDS ORDERED: VANCOMYCIN IV PER PHARMACY 1 EACH MISC MISCELLANE PRN (20:26)
[2022-09-11] MEDS: ACETAMINOPHEN TAB 500 MG TAB PO PRN (20:34)
--- NOTE | 2022-09-11 21:51 | P.CONS ---
History of Present Illness - Reason for Consult Consult date: 09/11/22 - History of Present Illness Patient is a 62-year-old male with a past medical history significant for diabetes mellitus patient is currently a resident of [facility] for the last few months patient has been sent to the ER for evaluation of mental status changes and this patient apparently did went out to the family and have a dinner and apparently smoked marijuana patient on presentation the hospital have a fever of 103 F patient was tachycardic and did have a white of 14,000 with a left shift kidney function has been normal liver enzymes are normal influenza RSV and COVID testing was negative patient did have a positive UA patient was started on Zosyn infectious disease was consulted for further management of antibiotic therapy patient did have a chest x-ray no acute cardiopulmonary disease patient also noticed to have a sacral pressure ulcer however the patient unable to tell me for how long he has this pressure ulcer or any symptoms associated with it most information has been obtained from review the chart talking with nursing staff the patient's not a very good historian Past Medical History Past Medical History: Diabetes Mellitus Additional Past Medical History / Comment(s): pressure ulcers[Buttock,simone heals ,rt lateral foot] History of Any Multi-Drug Resistant Organisms: None Reported Past Surgical History: Orthopedic Surgery Additional Past Surgical History / Comment(s): back pain son states pt recently "slipped a disc" taking gabapentin. Past Psychological History: No Psychological Hx Reported Smoking Status: Current every day smoker Past Alcohol Use History: Rare Past Drug Use History: None Reported Medications and Allergies Home Medications Medication Instructions Recorded Confirmed Type sitaGLIPtin [Januvia] 100 mg PO HS@199903/02/22 09/11/22 History Amiodarone [Cordarone] 200 mg PO DAILY tab 03/25/22 09/11/22 Rx Folic Acid 1 mg PO DAILY tab 03/25/22 09/11/22 Rx Furosemide [Lasix] 40 mg PO DAILY tab 03/25/22 09/11/22 Rx Sennosides [Senokot] 8.6 mg PO DAILY tab 03/25/22 09/11/22 Rx Acetaminophen [Tylenol Arthritis] 650 mg PO Q6H PRN 09/11/22 09/11/22 History Calcium Carbonate [Tums] 1,000 mg PO TID PRN 09/11/22 09/11/22 History HYDROcodone/APAP 7.5-325MG [[place] 1 tab PO Q6HR PRN 09/11/22 09/11/22 History 7.5-325] INSULIN ASPART (NovoLOG) [NovoLOG 5 unit SQ ACHS 09/11/22 09/11/22 History (formulary)] INSULIN ASPART (NovoLOG) [NovoLOG See Protocol SQ [facility] 09/11/22 09/11/22 History (formulary)] Insulin Detemir (Levemir) [Levemir] 10 unit SQ HS@199909/11/22 09/11/22 History Loperamide [Imodium] 2 mg PO BID PRN 09/11/22 09/11/22 History Melatonin 5 mg PO HS@199909/11/22 09/11/22 History Metoprolol Tartrate [Lopressor] 25 mg PO BID 09/11/22 09/11/22 History Multivitamins, Thera [Multivitamin 1 tab PO DAILY 09/11/22 09/11/22 History (formulary)] polyethylene glycoL 3350 [Miralax] 17 gm PO DAILY 09/11/22 09/11/22 History Allergies Allergy/AdvReac Type Severity Reaction Status Date / Time No Known Allergies Allergy Verified 09/11/22 13:18 Physical Exam Vitals: Vital Signs Temp Pulse Pulse Resp BP BP Pulse Ox 09/11/22 10:15 102 F H 09/11/22 07:36 103.0 F H 103 H 18 138/68 94 L 09/11/22 01:15 98.6 F 76 16 95/61 97 09/10/22 23:00 102.9 F H 90 16 113/68 09/10/22 22:00 103.0 F H 92 18 148/80 09/10/22 20:44 103 F H 93 18 130/74 98 Intake and Output 09/10/22 09/11/22 09/11/22 22:59 06:59 14:59 Intake Total 100 Balance 100 Intake: Intake, IV Titration 100 Amount Piperacillin-Tazobactam 3 100 .375 gm In Sodium Chloride 0.9% 100 ml @ 25 mls/hr IVPB Q8HR [facility] Rx# :[id number] Other: Weight 69.853 kg 69.853 kg Results CBC & Chem 7: 09/12/22 07:54 09/12/22 07:54 Labs: Abnormal Lab Results - Last 24 Hours (Table) 09/10/22 09/10/22 09/10/22 Range/Units 01:45 01:45 20:50 WBC 14.0 H (3.8-10.6) k/uL Hgb 12.7 L (13.0-17.5) gm/dL Hct 38.3 L (39.0-53.0) % Neutrophils # 13.0 H (1.3-7.7) k/uL Lymphocytes # 0.4 L (1.0-4.8) k/uL Sodium (137-145) mmol/L Creatinine (0.66-1.25) mg/dL Glucose (74-99) mg/dL Urine Protein Trace H (Negative) Urine Ketones Trace H (Negative) Urine Blood Small H (Negative) Ur Leukocyte Esterase Large H (Negative) Urine RBC 27 H (0-5) /hpf Urine WBC 31 H (0-5) /hpf Urine Bacteria Rare H (None) /hpf Urine Mucus Rare H (None) /hpf Urine Yeast (Budding) Rare H (None) /hpf Urine Opiates Screen Detected H (NotDetected) Ur Amphetamines Screen Detected H (NotDetected) U Methamphetamines Scrn Detected H (NotDetected) U Marijuana (THC) Screen Detected H (NotDetected) 09/10/22 09/11/22 Range/Units 20:50 11:39 WBC 14.7 H (3.8-10.6) k/uL Hgb 11.9 L (13.0-17.5) gm/dL Hct 36.7 L (39.0-53.0) % Neutrophils # 13.5 H (1.3-7.7) k/uL Lymphocytes # 0.6 L (1.0-4.8) k/uL Sodium 133 L (137-145) mmol/L Creatinine 0.65 L (0.66-1.25) mg/dL Glucose 112 H (74-99) mg/dL Urine Protein (Negative) Urine Ketones (Negative) Urine Blood (Negative) Ur Leukocyte Esterase (Negative) Urine RBC (0-5) /hpf Urine WBC (0-5) /hpf Urine Bacteria (None) /hpf Urine Mucus (None) /hpf Urine Yeast (Budding) (None) /hpf Urine Opiates Screen (NotDetected) Ur Amphetamines Screen (NotDetected) U Methamphetamines Scrn (NotDetected) U Marijuana (THC) Screen (NotDetected) Assessment and Plan Plan: 1patient presented to the hospital with sepsis in this patient who did have a fever elevated white count elevated lactic acid source is possible urinary has abated her positive UA patient chest x-ray was negative no significant abdominal tenderness was noticed patient did have a sacral wound overall wound base looks clean with no evidence of any cellulitis 2-patient to continue with the Zosyn while waiting for the culture to finalize 3-local wound care to the sacral wound with the Medihoney followed by moist dressing change daily discussed with the nursing staff We will follow on clinical condition and cultures to further adjust medication if needed Thank you for this consultation we will follow the patient along with you Time with Patient: Greater than 30
--- NOTE | 2022-09-11 22:22 | P.HPIM ---
History of Present Illness H&P Date: 09/11/22 Chief Complaint: Fever Patient is a 60-year-old male with a known history of diabetes type 2 insulin- dependent, currently bedbound and paralysis who is currently staying at [facility] sent to ER due to fever. Patient went to dinner with his family around 4 PM. It was reported that he smoked marijuana. At around 6 patient became altered and felt warm. Temperature was 102.7 and patient was given Tylenol at 7:50 PM. According to the family smoking marijuana is not new for the patient. When he came to ER he was unable to answer questions appropriately. Patient felt sweaty and no other complaints. No complaints of abdominal pain. No headache or dizziness. Denies any dysuria or hematuria. No abdominal pain. No bladder or bowel incontinence. No sick contacts. On admission patient was febrile with Tmax 103.0 pulse ox 98% on room air. Hemodynamically blood pressure was 130/74 and heart rate 93 and respiration 18. Chest x-ray showed no acute cardiopulmonary process. No significant change from prior. CT head showed no acute intracranial process. Bilateral mastoid air cell effusions. EKG showed sinus rhythm Laboratory pressure WBC 14.0 hemoglobin 12.7 platelets 252 Sodium 133 potassium 4.4 chloride 109 bicarb is 24 BUN 17 and creatinine 0.65 blood sugar is 112 [place] is not elevated. Bilirubin level is 0.4 troponin x1 negative and serum marker levels less than 10 influenza A B RSV and SARS COVID PCR not detected. Urinalysis showed a low with trace ketones and large leukocyte esterase with elevated RBCs and WBCs and UDS is positive for opiates, methamphetamines, benzodiazepines and marijuana. Review of Systems Constitutional: Patient does have fever. No chills. Patient does have generalized weakness. Abdomen: Patient denied any nausea or vomiting or abd. pain Cardiovascular: Patient denies any chest pain or short of breath no palpitations. Respiratory: patient denied any cough . no sputum production. No shortness of breath Neurologic: Patient denied any numbness or tingling headache. Musculoskeletal: Patient denies any complaints of joint swelling or deformity. Skin: Negative Psychiatric: Negative Endocrine: No heat or cold intolerance. No recent weight gain. Genitourinary: No dysuria or hematuria. All other 14 point ROS negative except the above Past Medical History Past Medical History: Diabetes Mellitus Additional Past Medical History / Comment(s): pressure ulcers[Buttock,simone heals ,rt lateral foot] History of Any Multi-Drug Resistant Organisms: None Reported Past Surgical History: Orthopedic Surgery Additional Past Surgical History / Comment(s): back pain son states pt recently "slipped a disc" taking gabapentin. Past Psychological History: No Psychological Hx Reported Smoking Status: Current every day smoker Past Alcohol Use History: Rare Past Drug Use History: None Reported Medications and Allergies Home Medications Medication Instructions Recorded Confirmed Type sitaGLIPtin [Januvia] 100 mg PO HS@199903/02/22 09/11/22 History Amiodarone [Cordarone] 200 mg PO DAILY tab 03/25/22 09/11/22 Rx Folic Acid 1 mg PO DAILY tab 03/25/22 09/11/22 Rx Furosemide [Lasix] 40 mg PO DAILY tab 03/25/22 09/11/22 Rx Sennosides [Senokot] 8.6 mg PO DAILY tab 03/25/22 09/11/22 Rx Acetaminophen [Tylenol Arthritis] 650 mg PO Q6H PRN 09/11/22 09/11/22 History Calcium Carbonate [Tums] 1,000 mg PO TID PRN 09/11/22 09/11/22 History HYDROcodone/APAP 7.5-325MG [[place] 1 tab PO Q6HR PRN 09/11/22 09/11/22 History 7.5-325] INSULIN ASPART (NovoLOG) [NovoLOG 5 unit SQ [facility] 09/11/22 09/11/22 History (formulary)] INSULIN ASPART (NovoLOG) [NovoLOG See Protocol SQ [facility] 09/11/22 09/11/22 History (formulary)] Insulin Detemir (Levemir) [Levemir] 10 unit SQ HS@199909/11/22 09/11/22 History Loperamide [Imodium] 2 mg PO BID PRN 09/11/22 09/11/22 History Melatonin 5 mg PO HS@199909/11/22 09/11/22 History Metoprolol Tartrate [Lopressor] 25 mg PO BID 09/11/22 09/11/22 History Multivitamins, Thera [Multivitamin 1 tab PO DAILY 09/11/22 09/11/22 History (formulary)] polyethylene glycoL 3350 [Miralax] 17 gm PO DAILY 09/11/22 09/11/22 History Allergies Allergy/AdvReac Type Severity Reaction Status Date / Time No Known Allergies Allergy Verified 09/11/22 13:18 Physical Exam Vitals: Vital Signs Temp Pulse Pulse Resp BP BP Pulse Ox 09/11/22 07:36 103.0 F H 103 H 18 138/68 94 L 09/11/22 01:15 98.6 F 76 16 95/61 97 09/10/22 23:00 102.9 F H 90 16 113/68 09/10/22 22:00 103.0 F H 92 18 148/80 09/10/22 20:44 103 F H 93 18 130/74 98 Intake and Output 09/10/22 09/11/22 09/11/22 22:59 06:59 14:59 Intake Total 100 Balance 100 Intake: Intake, IV Titration 100 Amount Piperacillin-Tazobactam 3 100 .375 gm In Sodium Chloride 0.9% 100 ml @ 25 mls/hr IVPB Q8HR [facility] Rx# :[id number] Other: Weight 69.853 kg 69.853 kg PHYSICAL EXAMINATION: Patient is lying in the bed comfortably, no acute distress, awake alert and orie nted.. HEENT: Normocephalic. Neck is supple. Pupils reactive. Nostrils clear. Oral cavity is moist. Neck reveals no JVD, carotid bruits, or thyromegaly. CHEST EXAMINATION: Trachea is central. Symmetrical expansion. Lung aponte clear to auscultation and percussion. CARDIAC: Normal S1, S2 with no gallops. No murmurs ABDOMEN: Soft. Bowel sounds present. Nontender. No organomegaly. No abdominal bruits. Extremities: reveal no edema. No clubbing or cyanosis Neurologically awake, alert, oriented x3. Bilateral lower extremity weakness. muscle strength 3 out of 5. Skin: No rash or skin lesions. Sacral ulcers. Psychiatric: Coperative. Nonsuicidal, Musculoskeletal: No joint swelling or deformity Results CBC & Chem 7: 09/11/22 11:39 09/10/22 20:50 Labs: Abnormal Lab Results - Last 24 Hours (Table) 09/10/22 09/10/22 09/10/22 Range/Units 01:45 01:45 20:50 WBC 14.0 H (3.8-10.6) k/uL Hgb 12.7 L (13.0-17.5) gm/dL Hct 38.3 L (39.0-53.0) % Neutrophils # 13.0 H (1.3-7.7) k/uL Lymphocytes # 0.4 L (1.0-4.8) k/uL Sodium (137-145) mmol/L Creatinine (0.66-1.25) mg/dL Glucose (74-99) mg/dL Urine Protein Trace H (Negative) Urine Ketones Trace H (Negative) Urine Blood Small H (Negative) Ur Leukocyte Esterase Large H (Negative) Urine RBC 27 H (0-5) /hpf Urine WBC 31 H (0-5) /hpf Urine Bacteria Rare H (None) /hpf Urine Mucus Rare H (None) /hpf Urine Yeast (Budding) Rare H (None) /hpf Urine Opiates Screen Detected H (NotDetected) Ur Amphetamines Screen Detected H (NotDetected) U Methamphetamines Scrn Detected H (NotDetected) U Marijuana (THC) Screen Detected H (NotDetected) 09/10/22 Range/Units 20:50 WBC (3.8-10.6) k/uL Hgb (13.0-17.5) gm/dL Hct (39.0-53.0) % Neutrophils # (1.3-7.7) k/uL Lymphocytes # (1.0-4.8) k/uL Sodium 133 L (137-145) mmol/L Creatinine 0.65 L (0.66-1.25) mg/dL Glucose 112 H (74-99) mg/dL Urine Protein (Negative) Urine Ketones (Negative) Urine Blood (Negative) Ur Leukocyte Esterase (Negative) Urine RBC (0-5) /hpf Urine WBC (0-5) /hpf Urine Bacteria (None) /hpf Urine Mucus (None) /hpf Urine Yeast (Budding) (None) /hpf Urine Opiates Screen (NotDetected) Ur Amphetamines Screen (NotDetected) U Methamphetamines Scrn (NotDetected) U Marijuana (THC) Screen (NotDetected) Thrombosis Risk Factor Assmnt - DVT/VTE Prophylaxis DVT/VTE Prophylaxis: Pharmacologic Prophylaxis ordered - Choose All That Apply Each Factor Represents 1 point: Abnormal pulmonary function (COPD) Each Risk Factor Represents 2 Points: Age 61-74 years Thrombosis Risk Factor Assessment Total Risk Factor Score: 3 Thrombosis Risk Factor Assessment Level: Moderate Risk Assessment and Plan Assessment: Acute febrile illness possible urinary tract infection is in the differential. Influenza A B RSV and COVID-19 not detected. Sepsis secondary to above Lactic acidosis on admission Diabetes type 2 insulin-dependent Paroxysmal atrial fibrillation currently Lopressor and amiodarone. Sacral pressure ulcers unstageable UDS positive for opiates, methamphetamines, benzodiazepines and marijuana. COPD not in exacerbation Currently everyday smoker History of L2 S1 laminectomy and decompression with lower extremity weakness and central spinal cord stenosis. DVT prophylaxis Plan: Patient will be continued on IV hydration with normal saline. Continue broad- spectrum antibiotics with Zosyn. Follow-up culture reports. Follow-up urine culture reports. Tylenol for fever and currently management and insulin regimen . Continue with insulin sliding scale. ID was consulted for evaluation. Follow-up closely. Prognosis is guarded at this time. Time with Patient: Greater than 30
[2022-09-11 23:45] LABS: Glucose,Whole Blood 210 mg/dL (70-110)
[2022-09-12] MEDS: HEPARIN SODIUM,PORCINE/PF 5,000 UNIT/0.5 ML SYRINGE SQ SCH ×3 (00:39→16:06)
[2022-09-12] MEDS: MELATONIN 5 MG TABLET PO SCH ×2 (00:39→20:22)
[2022-09-12] MEDS: INSULIN ASPART (NovoLOG) 100 UNIT/ML VIAL SQ SCH ×10 (00:41→20:31)
[2022-09-12] MEDS: SODIUM CHLORIDE 0.9% 1,000 ML IV SCH ×4 (00:43→20:32)
[2022-09-12] MEDS: METOPROLOL TARTRATE 25 MG TAB PO SCH ×3 (00:43→20:22)
[2022-09-12] MEDS: LINAGLIPTIN 5 MG TABLET PO SCH ×2 (00:44→20:22)
[2022-09-12] MEDS: INSULIN DETEMIR (LEVEMIR) 100 UNIT/ML SYR SQ SCH ×2 (03:04→20:24)
[2022-09-12] MEDS: PIPERACILLIN-TAZOBACTAM 3.375 GM in SODIUM CHLORIDE 0.9% 100 ML IVPB SCH ×3 (03:08→16:06)
[2022-09-12] MEDS: IBUPROFEN 400 MG TAB PO PRN ×2 (07:26→20:29)
[2022-09-12 07:59] LABS: Glucose,Whole Blood 167 mg/dL (70-110)
[2022-09-12] MEDS: MULTIVITAMINS, THERA 1 EACH TAB PO SCH (08:47)
[2022-09-12] MEDS: AMIODARONE 200 MG TAB PO SCH (08:47)
[2022-09-12] MEDS: FOLIC ACID 1 MG TAB PO SCH (08:47)
[2022-09-12] MEDS: SENNOSIDES 8.6 MG TAB PO SCH (08:47)
[2022-09-12] MEDS: polyethylene glycoL 3350 17 GM POWD.PACK PO SCH (08:47)
[2022-09-12 08:53] LABS: Basophils % (A) 0 %; Eosinophils % (A) 0 %; HCT 35.6 % (39.0-53.0); HGB 11.2 gm/dL (13.0-17.5); Lymphocytes # (A) 0.4 k/uL (1.0-4.8); Lymphocytes % (A) 4 %; MCH 27.2 pg (25.0-35.0); MCHC 31.6 g/dL (31.0-37.0); MCV 86.1 fL (80.0-100.0); Mean Platelet Volume 7.5; Monocytes # (A) 0.3 k/uL (0-1.0); Monocytes % (A) 4 %; Neutrophils # (A) 7.9 k/uL (1.3-7.7); Neutrophils % (A) 90 %; Platelet Count 189 k/uL (150-450); RBC 4.13 m/uL (4.30-5.90); RDW 14.3 % (11.5-15.5); WBC 8.8 k/uL (3.8-10.6)
[2022-09-12 09:03] LABS: African American GFR (CKD) >90 (>60 ml/min/1.73 sqM); Anion Gap 5 mmol/L; Blood Urea Nitrogen 15 mg/dL (9-20); Calcium 8.4 mg/dL (8.4-10.2); Carbon Dioxide 24 mmol/L (22-30); Chloride 108 mmol/L (98-107); Glucose 155 mg/dL (74-99); Non-African American GFR(CKD) >90 (>60 ml/min/1.73 sqM); Potassium 3.6 mmol/L (3.5-5.1); Sodium 137 mmol/L (137-145)
[2022-09-12] MEDS ORDERED: VANCOMYCIN 1,250 MG in SODIUM CHLORIDE 0.9% 250 ML IVPB SCH ×2 (10:00→19:00)
[2022-09-12] MEDS ORDERED: POTASSIUM CHLORIDE ER 20 MEQ TAB.ER PO STA (11:03)
[2022-09-12 11:56] LABS: Glucose,Whole Blood 207 mg/dL (70-110)
[2022-09-12] MEDS: ACETAMINOPHEN TAB 500 MG TAB PO PRN (16:06)
--- NOTE | 2022-09-12 17:07 | P.PN ---
Subjective Progress Note Date: 09/12/22 Principal diagnosis: Fever possible UTI Patient is a 62-year-old male with a past medical history significant for diabetes mellitus patient is currently a resident of [facility] for the last few months patient has been sent to the ER for evaluation of mental status changes, patient was noticed to be febrile did have a positive UA concerning for possible UTI. On today's evaluation that is 09/12/2022 patient fever pattern has improved he still have a low-grade fever 100.6F patient is any more awake alert no chest pain shortness of breath or cough has been complaining of some abdominal discomfort no vomiting or diarrhea has been reported Objective - Vital Signs Vital signs: Vital Signs Temp 99.4 F 09/12/22 07:55 Pulse 89 09/12/22 07:55 Resp 18 09/12/22 07:55 BP 138/71 09/12/22 07:55 Pulse Ox 98 09/12/22 07:55 FiO2 Intake & Output 09/11/22 09/12/22 09/12/22 18:59 06:59 18:59 Output Total 700 1300 Balance -700 -1300 Weight 69.853 kg Output: Urine 700 1300 Uretheral (Zee) 800 Other: Voiding Method Diaper Diaper Diaper Indwelling Catheter Indwelling Catheter External Catheter - Exam GENERAL DESCRIPTION: A middle-aged male lying in bed in no distress RESPIRATORY SYSTEM: Unlabored breathing , decreased breath sounds at bases HEART: S1 S2 regular rate and rhythm , ABDOMEN: Soft , mild tenderness EXTREMITIES: No edema feet - Labs CBC & Chem 7: 09/12/22 07:54 09/12/22 07:54 Labs: Abnormal Lab Results - Last 24 Hours (Table) 09/11/22 09/11/22 09/12/22 Range/Units 17:45 23:43 07:54 RBC 4.13 L (4.30-5.90) m/uL Hgb 11.2 L (13.0-17.5) gm/dL Hct 35.6 L (39.0-53.0) % Neutrophils # 7.9 H (1.3-7.7) k/uL Lymphocytes # 0.4 L (1.0-4.8) k/uL Chloride (98-107) mmol/L Creatinine (0.66-1.25) mg/dL Glucose (74-99) mg/dL POC Glucose (mg/dL) 196 H 210 H (70-110) mg/dL 09/12/22 09/12/22 09/12/22 Range/Units 07:54 07:58 11:54 RBC (4.30-5.90) m/uL Hgb (13.0-17.5) gm/dL Hct (39.0-53.0) % Neutrophils # (1.3-7.7) k/uL Lymphocytes # (1.0-4.8) k/uL Chloride 108 H (98-107) mmol/L Creatinine 0.64 L (0.66-1.25) mg/dL Glucose 155 H (74-99) mg/dL POC Glucose (mg/dL) 167 H 207 H (70-110) mg/dL Microbiology - Last 24 Hours (Table) 09/10/22 01:45 Urine Culture - Final Urine,Voided 09/10/22 21:35 Blood Culture - Preliminary Blood No Growth after 24 hours 09/10/22 20:50 Blood Culture - Preliminary Blood No Growth after 24 hours Assessment and Plan (1) UTI (urinary tract infection) Current Visit: Yes Status: Acute Code(s): N39.0 - URINARY TRACT INFECTION, SITE NOT SPECIFIED SNOMED Code(s): 25117088 (2) Stage III pressure ulcer of sacral region Current Visit: Yes Status: Acute Code(s): L89.153 - PRESSURE ULCER OF SACRAL REGION, STAGE 3 SNOMED Code(s): 73496997198569 (3) Fever Current Visit: Yes Status: Acute Code(s): R50.9 - FEVER, UNSPECIFIED SNOMED Code(s): 590432558 Plan: 1patient presented to the hospital with sepsis in this patient who did have a fever elevated white count elevated lactic acid source is possible urinary has abated her positive UA patient chest x-ray was negative no significant abdominal tenderness was noticed patient did have a sacral wound overall wound base looks clean with no evidence of any cellulitis 2--local wound care to the sacral wound with the Medihoney followed by moist dressing change daily discussed with the nursing staff 3-Patient was noticed to have abdominal tenderness on clinical examination we will obtain CT of abdominal pelvis continue with the idalia and monitor clinical course closely
[2022-09-12 17:13] LABS: Glucose,Whole Blood 198 mg/dL (70-110)
[2022-09-12] MEDS: IOPAMIDOL CONTRAST (ORAL USE) VIAL PO PRN ×2 (17:28→17:56)
--- NOTE | 2022-09-12 19:11 | CT ---
EXAMINATION TYPE: CT abdomen pelvis w con CT DLP: 937.50 mGycm, Automated exposure control for dose reduction was used. DATE OF EXAM: 09/12/2022 6:54 PM COMPARISON: CT abdomen pelvis most recent from 08/10/2022 CLINICAL INDICATION:Male, 62 years old with history of fever , abd tenderness; Abdominal tenderness a nd fever TECHNIQUE: Axial CT of the abdomen and pelvis. Sagittal and coronal reformats were created on a [employer] workstation. Contrast used:100 mL of Isovue 300 with IV Contrast, Oral contrast used: with Oral Contrast FINDINGS: LOWER CHEST: Right middle lobe calcified granuloma with partially calcified lymph nodes in the medias tinum. ABDOMEN LIVER: Unremarkable GALLBLADDER AND BILE DUCTS: Layering increased densities within the lumen consistent with gallstones are present. PANCREAS: Unremarkable. SPLEEN: Small splenule is present. ADRENAL GLANDS: Stable right adrenal adenoma measuring 3.1 cm. KIDNEYS AND URETERS: Right 5 mm nonobstructing calculus. No left renal calculus. No obstructive uropa thy. PELVIS BLADDER: Nondistended with Zee catheter in place. High density urine is seen within the bladder lum en. REPRODUCTIVE: Unremarkable. ABDOMEN & PELVIS STOMACH AND BOWEL: No evidence of bowel obstruction. Sequential wall thickening of the rectum measuri ng up to 9 mm. There is a redundant sigmoid colon. There is a short segment of decompressed colon briana suring 3.9 cm in length with gaston up to 6 8 mm. Not definitely seen on prior could be due to underdi stention. PERITONEUM/RETROPERITONEUM: No evidence of pneumoperitoneum or free fluid. VASCULATURE: No evidence of aortic aneurysm. Mild atherosclerosis of the arterial vasculature. MUSCULOSKELETAL: No acute osseous abnormalities, left gluteus more intramuscular lipoma. Multileve l Schmorl's nodes present throughout the spine worse at L4-L5. Similar appearance to the endplates of the lumbar spine with comparing to one month prior however it appears more progressed from 2. LYMPH NODES: No gross evidence for lymphadenopathy. SOFT TISSUE/ABDOMINAL WALL: Left fat-containing inguinal hernia. IMPRESSION: 1. High density bladder lumen with Zee catheter in place. Findings suggestive of traumatic Zee c atheter insertion with blood products in the urinary bladder. Correlate with urinalysis. 2. Circumferential wall thickening of the rectum correlate for proctitis. Additionally there is a s hort segment of decompression with circumferential wall thickening in the sigmoid colon new from diamondo r. If not recently performed recommend colonoscopy evaluation of the anus/rectum. 3. L4-L5 adjoining endplate degeneration changes which have progressed from 03/09/2022 however they appear grossly similar to immediate prior on 08/10/2022. If there is concern for osteomyelitis disciti s further evaluation with MRI may be warranted. 4. Right obstructing renal calculus measuring 5 mm. 5. Cholelithiasis. 6. Sequela of granulomatous disease. 7. Stable right adrenal adenoma. Left adrenal gland is unremarkable.
[2022-09-12 20:15] LABS: Glucose,Whole Blood 185 mg/dL (70-110)
[2022-09-13] MEDS: PIPERACILLIN-TAZOBACTAM 3.375 GM in SODIUM CHLORIDE 0.9% 100 ML IVPB SCH ×3 (00:19→15:51)
[2022-09-13] MEDS: HEPARIN SODIUM,PORCINE/PF 5,000 UNIT/0.5 ML SYRINGE SQ SCH ×3 (00:19→15:51)
--- NOTE | 2022-09-13 00:25 | P.PN ---
Subjective Progress Note Date: 09/12/22 Patient is a 60-year-old male with a known history of diabetes type 2 insulin- dependent, currently bedbound and paralysis who is currently staying at [facility] sent to ER due to fever. Patient went to dinner with his family around 4 PM. It was reported that he smoked marijuana. At around 6 patient became altered and felt warm. Temperature was 102.7 and patient was given Tylenol at 7:50 PM. According to the family smoking marijuana is not new for the patient. When he came to ER he was unable to answer questions appropriately. Patient felt sweaty and no other complaints. No complaints of a bdominal pain. No headache or dizziness. Denies any dysuria or hematuria. No abdominal pain. No bladder or bowel incontinence. No sick contacts. On admission patient was febrile with Tmax 103.0 pulse ox 98% on room air. Hemodynamically blood pressure was 130/74 and heart rate 93 and respiration 18. Chest x-ray showed no acute cardiopulmonary process. No significant change from prior. CT head showed no acute intracranial process. Bilateral mastoid air cell effusions. EKG showed sinus rhythm Laboratory pressure WBC 14.0 hemoglobin 12.7 platelets 252 Sodium 133 potassium 4.4 chloride 109 bicarb is 24 BUN 17 and creatinine 0.65 blood sugar is 112 [place] is not elevated. Bilirubin level is 0.4 troponin x1 negative and serum marker levels less than 10 influenza A B RSV and SARS COVID PCR not detected. Urinalysis showed a low with trace ketones and large leukocyte esterase with elevated RBCs and WBCs and UDS is positive for opiates, methamphetamines, benzodiazepines and marijuana. 09/12/2022 Patient is currently resting in bed. Feels better. No complaints of chest pain or shortness of breath. Was complaining of abdominal pain mainly in the left lower quadrant and tenderness noted on physical exam. Patient was febrile Tmax 100.6 overnight. Vancomycin was added. Patient is currently on vancomycin and Zosyn. Urine culture showed normal ceferino. ID is on board. CT of the abdomen pelvis was ordered. Laboratory showed WBC 8.8 hemoglobin 11.1 platelets 489 Sodium 137 potassium 3.6 chloride 108 bicarb is 24 BUN 59 creatinine 0.64 and blood sugar is 155. Current medications reviewed. Objective - Vital Signs Vital signs: Vital Signs Temp 99.4 F 09/12/22 07:55 Pulse 89 09/12/22 07:55 Resp 18 09/12/22 07:55 BP 138/71 09/12/22 07:55 Pulse Ox 98 09/12/22 07:55 FiO2 Intake & Output 09/11/22 09/12/22 09/12/22 18:59 06:59 18:59 Output Total 700 1300 Balance -700 -1300 Weight 69.853 kg Output: Urine 700 1300 Uretheral (Zee) 800 Other: Voiding Method Diaper Diaper Diaper Indwelling Catheter Indwelling Catheter External Catheter - Exam PHYSICAL EXAMINATION: Patient is lying in the bed comfortably, no acute distress, awake alert and oriented.. HEENT: Normocephalic. Neck is supple. Pupils reactive. Nostrils clear. Oral cavity is moist. Neck reveals no JVD, carotid bruits, or thyromegaly. CHEST EXAMINATION: Trachea is central. Symmetrical expansion. Lung aponte clear to auscultation and percussion. CARDIAC: Normal S1, S2 with no gallops. No murmurs ABDOMEN: Soft. Bowel sounds present. Left lower quadrant abdominal tenderness. No guarding.. No organomegaly. No abdominal bruits. Extremities: reveal no edema. No clubbing or cyanosis Neurologically awake, alert, oriented x3. Bilateral lower extremity weakness. muscle strength 3 out of 5. Skin: No rash or skin lesions. Sacral ulcers. Psychiatric: Coperative. Nonsuicidal, Musculoskeletal: No joint swelling or deformity - Labs CBC & Chem 7: 09/12/22 07:54 09/12/22 07:54 Labs: Abnormal Lab Results - Last 24 Hours (Table) 09/11/22 09/11/22 09/12/22 Range/Units 17:45 23:43 07:54 RBC 4.13 L (4.30-5.90) m/uL Hgb 11.2 L (13.0-17.5) gm/dL Hct 35.6 L (39.0-53.0) % Neutrophils # 7.9 H (1.3-7.7) k/uL Lymphocytes # 0.4 L (1.0-4.8) k/uL Chloride (98-107) mmol/L Creatinine (0.66-1.25) mg/dL Glucose (74-99) mg/dL POC Glucose (mg/dL) 196 H 210 H (70-110) mg/dL 09/12/22 09/12/22 09/12/22 Range/Units 07:54 07:58 11:54 RBC (4.30-5.90) m/uL Hgb (13.0-17.5) gm/dL Hct (39.0-53.0) % Neutrophils # (1.3-7.7) k/uL Lymphocytes # (1.0-4.8) k/uL Chloride 108 H (98-107) mmol/L Creatinine 0.64 L (0.66-1.25) mg/dL Glucose 155 H (74-99) mg/dL POC Glucose (mg/dL) 167 H 207 H (70-110) mg/dL Microbiology - Last 24 Hours (Table) 09/10/22 01:45 Urine Culture - Final Urine,Voided 09/10/22 21:35 Blood Culture - Preliminary Blood No Growth after 24 hours 09/10/22 20:50 Blood Culture - Preliminary Blood No Growth after 24 hours Assessment and Plan Assessment: Acute febrile illness possible urinary tract infection vs abdominbal etiology. Influenza A B RSV and COVID-19 not detected. Sepsis secondary to above Lactic acidosis on admission Diabetes type 2 insulin-dependent Paroxysmal atrial fibrillation currently Lopressor and amiodarone. Sacral pressure ulcers unstageable UDS positive for opiates, methamphetamines, benzodiazepines and marijuana. COPD not in exacerbation Currently everyday smoker History of L2 S1 laminectomy and decompression with lower extremity weakness and central spinal cord stenosis.Patient is wheelchair-bound. DVT prophylaxis Plan: Patient will be continued on IV hydration with normal saline. Continue broad- spectrum antibiotics with Zosyn. Urine culture showed normal ceferino. CT of the abdomen pelvis was ordered for further evaluation. Continue with broad-spectrum antibiotics. Tylenol for fever and currently management and insulin regimen. Continue with insulin sliding scale. ID was consulted for evaluation. Follow-up closely. Prognosis is guarded at this time. Time with Patient: Greater than 30
[2022-09-13 07:27] LABS: Glucose,Whole Blood 83 mg/dL (70-110)
[2022-09-13] MEDS: SODIUM CHLORIDE 0.9% 1,000 ML IV SCH ×2 (09:31→15:51)
[2022-09-13] MEDS: FOLIC ACID 1 MG TAB PO SCH (09:32)
[2022-09-13] MEDS: AMIODARONE 200 MG TAB PO SCH (09:32)
[2022-09-13] MEDS: MULTIVITAMINS, THERA 1 EACH TAB PO SCH (09:32)
[2022-09-13] MEDS: INSULIN ASPART (NovoLOG) 100 UNIT/ML VIAL SQ SCH ×8 (09:33→22:48)
[2022-09-13] MEDS: METOPROLOL TARTRATE 25 MG TAB PO SCH ×2 (09:33→22:50)
[2022-09-13] MEDS: polyethylene glycoL 3350 17 GM POWD.PACK PO SCH (09:37)
[2022-09-13] MEDS: SENNOSIDES 8.6 MG TAB PO SCH (09:37)
[2022-09-13] MEDS ORDERED: VANCOMYCIN TROUGH DUE 1 EACH MISC MISCELLANE ONE (10:00)
[2022-09-13 11:03] LABS: Basophils % (A) 0 %; Eosinophils % (A) 0 %; HCT 32.9 % (39.0-53.0); HGB 9.9 gm/dL (13.0-17.5); Lymphocytes # (A) 0.7 k/uL (1.0-4.8); Lymphocytes % (A) 9 %; MCH 25.5 pg (25.0-35.0); MCHC 30.1 g/dL (31.0-37.0); MCV 84.6 fL (80.0-100.0); Mean Platelet Volume 7.7; Monocytes # (A) 0.4 k/uL (0-1.0); Monocytes % (A) 5 %; Neutrophils # (A) 6.3 k/uL (1.3-7.7); Neutrophils % (A) 83 %; Platelet Count 192 k/uL (150-450); RBC 3.89 m/uL (4.30-5.90); RDW 14.6 % (11.5-15.5); WBC 7.6 k/uL (3.8-10.6)
[2022-09-13 11:24] LABS: African American GFR (CKD) >90 (>60 ml/min/1.73 sqM); Anion Gap 8 mmol/L; Blood Urea Nitrogen 12 mg/dL (9-20); Calcium 7.9 mg/dL (8.4-10.2); Carbon Dioxide 22 mmol/L (22-30); Chloride 107 mmol/L (98-107); Glucose 133 mg/dL (74-99); Non-African American GFR(CKD) >90 (>60 ml/min/1.73 sqM); Potassium 3.4 mmol/L (3.5-5.1); Sodium 137 mmol/L (137-145)
[2022-09-13 11:27] LABS: Glucose,Whole Blood 156 mg/dL (70-110)
--- NOTE | 2022-09-13 11:47 | P.GSCN ---
History of Present Illness Consult date: 09/13/22 Reason for Consult: Obstructing renal calculi Requesting physician: Tulio Uriostegui History of present illness: The patient is a 62-year-old male with a past medical history of diabetes mellitus. He presented to the emergency department on 09/10/22 for concerns of altered mental status and fever of 102.7F. He is currently a resident at [facility]. Chest x-ray showed no acute cardiopulmonary process. No sign ificant change from prior. CT head showed no acute intracranial process. WBC 14.0, hemoglobin 12.7. Urinalysis showed a low with trace ketones and large leukocyte esterase with elevated RBCs and WBCs and UDS is positive for opiates, methamphetamines, benzodiazepines and marijuana. He was started on Zosyn infectious disease was consulted. Urine culture showed normal ceferino. Patient was complaining of abdominal pain mainly in the left lower quadrant. CT of the abdomen pelvis was ordered and showed and there was concerns of an obstructing calculus and we were consulted for this reason. Review of Systems - Constitutional Reports chills, Reports fever - Cardiovascular Denies chest pain - Gastrointestinal Denies abdominal pain, Denies nausea, Denies vomiting - Genitourinary Reports incontinence, Denies dysuria, Denies hematuria, Denies urinary frequency Past Medical History Past Medical History: Diabetes Mellitus Additional Past Medical History / Comment(s): pressure ulcers[Buttock,simone heals ,rt lateral foot] History of Any Multi-Drug Resistant Organisms: None Reported Past Surgical History: Orthopedic Surgery Additional Past Surgical History / Comment(s): back pain son states pt recently "slipped a disc" taking gabapentin. Past Psychological History: No Psychological Hx Reported Smoking Status: Current every day smoker Past Alcohol Use History: Rare Past Drug Use History: None Reported Medications and Allergies Home Medications Medication Instructions Recorded Confirmed Type sitaGLIPtin [Januvia] 100 mg PO HS@199903/02/22 09/11/22 History Amiodarone [Cordarone] 200 mg PO DAILY tab 03/25/22 09/11/22 Rx Folic Acid 1 mg PO DAILY tab 03/25/22 09/11/22 Rx Furosemide [Lasix] 40 mg PO DAILY tab 03/25/22 09/11/22 Rx Sennosides [Senokot] 8.6 mg PO DAILY tab 03/25/22 09/11/22 Rx Acetaminophen [Tylenol Arthritis] 650 mg PO Q6H PRN 09/11/22 09/11/22 History Calcium Carbonate [Tums] 1,000 mg PO TID PRN 09/11/22 09/11/22 History HYDROcodone/APAP 7.5-325MG [[place] 1 tab PO Q6HR PRN 09/11/22 09/11/22 History 7.5-325] INSULIN ASPART (NovoLOG) [NovoLOG 5 unit SQ ACHS 09/11/22 09/11/22 History (formulary)] INSULIN ASPART (NovoLOG) [NovoLOG See Protocol SQ ACHS 09/11/22 09/11/22 History (formulary)] Insulin Detemir (Levemir) [Levemir] 10 unit SQ HS@199909/11/22 09/11/22 History Loperamide [Imodium] 2 mg PO BID PRN 09/11/22 09/11/22 History Melatonin 5 mg PO HS@199909/11/22 09/11/22 History Metoprolol Tartrate [Lopressor] 25 mg PO BID 09/11/22 09/11/22 History Multivitamins, Thera [Multivitamin 1 tab PO DAILY 09/11/22 09/11/22 History (formulary)] polyethylene glycoL 3350 [Miralax] 17 gm PO DAILY 09/11/22 09/11/22 History Allergies Allergy/AdvReac Type Severity Reaction Status Date / Time No Known Allergies Allergy Verified 09/11/22 13:18 Surgical - Exam Vital Signs Temp Pulse Resp BP Pulse Ox 103 F H 93 18 130/74 98 09/10/22 20:44 09/10/22 20:44 09/10/22 20:44 09/10/22 20:44 09/10/22 20:44 General: Well developed, well nourished. No acute distress. HEENT: Head is atraumatic, normocephalic. Lungs: Respirations even and nonlabored. On RA Abdomen/GI: Soft, non-distended. LLQ abdominal tenderness. : Zee catheter in place draining clear yellow urine Skin: Warm and dry Neurologic: Alert and oriented 3, CN II-XII grossly intact. No focal deficits. Psychiatric: Appropriate mood and affect. Results - Labs 09/13/22 10:20 09/13/22 10:20 Abnormal Lab Results - Last 24 Hours (Table) 09/12/22 09/12/22 09/12/22 Range/Units 11:54 17:11 20:14 RBC (4.30-5.90) m/uL Hgb (13.0-17.5) gm/dL Hct (39.0-53.0) % MCHC (31.0-37.0) g/dL Lymphocytes # (1.0-4.8) k/uL POC Glucose (mg/dL) 207 H 198 H 185 H (70-110) mg/dL 09/13/22 Range/Units 10:20 RBC 3.89 L (4.30-5.90) m/uL Hgb 9.9 L (13.0-17.5) gm/dL Hct 32.9 L (39.0-53.0) % MCHC 30.1 L (31.0-37.0) g/dL Lymphocytes # 0.7 L (1.0-4.8) k/uL POC Glucose (mg/dL) (70-110) mg/dL Microbiology - Last 24 Hours (Table) 09/10/22 21:35 Blood Culture - Preliminary Blood No Growth after 48 hours 09/10/22 20:50 Blood Culture - Preliminary Blood No Growth after 48 hours 09/11/22 20:57 Blood Culture - Preliminary Blood No Growth after 24 hours 09/10/22 01:45 Urine Culture - Final Urine,Voided - Imaging CT scan - abdomen: report reviewed CT scan - pelvis: report reviewed Assessment and Plan Assessment: The patient reports a remote history of kidney stones. No recurrent UTI's. No dysuria or hematuria. He also reports struggling with incontinence for approximately six monthe. He is unable to ambulate and can not feel the urge to urinate. There is a stage [address] ulcer present. Dr. Yan reviewed the abadomen/pelvis CT. The right 5mm calculus is non-obstructing. No obstructive uropathy present. The patient will start Flomax. Maintain his Zee catheter for 5-7 days, or until pressure ulcer improves. Then a voiding trial may be attempted. (1) Renal calculus, right Current Visit: Yes Status: Acute Code(s): N20.0 - CALCULUS OF KIDNEY SNOMED Code(s): 40976996 Plan: - Start Flomax - Maintain Zee catheter for 5-7 days, the may attempt voiding trial Thank you for this consultation Impression and plan of care have been directed as dictated by the signing physician. Yudy Cotton nurse practitioner acting as scribe for signing physician. Yudy Cotton [facility] Palliative Care/Urology Spectralink [phone] Email: [email or web address] I have examined and interviewed the patient. I concur with the above note. vasiliy yan MD
[2022-09-13] MEDS: TAMSULOSIN 0.4 MG CAP.ER.24H PO SCH (13:32)
--- NOTE | 2022-09-13 14:20 | P.GSCN ---
History of Present Illness Consult date: 09/13/22 History of present illness: CHIEF COMPLAINT: Fever and altered mental status HISTORY OF PRESENT ILLNESS: This is a 62-year-old male who is currently at [facility]. He presented to the hospital due to fever of 102.7 and evidence of altered mental status. Patient is currently being treated for UTI. Computed tomography scan of the abdomen and pelvis was completed showing wall thickening of the rectum and thickening of the sigmoid colon. There is concerns of proctitis. Patient did have elevated white count of 14 which has normalized down to 8. Patient reports having had a colonoscopy in February 2022. He reports at that time he had 3 colonoscopies during the hospitalization in February due to poor bowel prep. Patient is not interested in having any colonoscopy at this time. He denies any rectal pain. He does have suprapubic and left lower quadrant abdominal pain. Patient reports this pain has been chronic for about 7 months. Patient is alert and orientated at this time. Patient had been constipated. Patient reports he was given medication and did have diarrhea through the night. No blood in his stools. PAST MEDICAL HISTORY: See below PAST SURGICAL HISTORY: See below MEDICATIONS: See below ALLERGIES: See below SOCIAL HISTORY: No illicit drug use. REVIEW OF SYSTEMS: CONSTITUTIONAL: Denies fever or chills. HEENT: Denies blurred vision, vision changes, or eye pain. Denies hemoptysis CARDIOVASCULAR: Denies chest pain or pressure. RESPIRATORY: No shortness of breath. GASTROINTESTINAL: See HPI for pertinent findings HEMATOLOGIC: Denies bleeding disorders. GENITOURINARY: Denies any blood in urine or increased urinary frequency. SKIN: Denies pruitis. Denies rash. PHYSICAL EXAM: VITAL SIGNS: Reviewed GENERAL: Well-developed in no acute distress. HEENT: No sclera icterus. Extraocular movements grossly intact. Moist buccal mucosa. Head is atraumatic, normocephalic. No nasal drainage. ABDOMEN: Soft. Nondistended. Tenderness with palpation of the suprapubic area and left lower quadrant. NEUROLOGIC: Alert and oriented. Cranial nerves II through XII grossly intact. LABORATORY DATA: WBC 14.7 on 7.6 HCT be 9.9 platelets 192 Sodium is 137 potassium 3.4 creatinine 0.50 IMAGING: Computed tomography scan abdomen and pelvis high density bladder lumen with Zee catheter in place findings suggestive traumatic Zee catheter insertion with blood products and the urinary bladder. Circumferential wall thickening of the rectum correlate for proctitis. Additionally there is a short segment of decompression with circumferential wall thickening of the sigmoid colon new from prior. If not recently performed recommend colonoscopy evaluation of the anus and rectum. L4 to L5 adjoining endplate degeneration changes have progressed from 03/09/2022 however progresses similar to 08/10/2022. Right obstructing renal calculus measuring 5 mm. Cholelithiasis. Sequelae of granulomatous disease. Stable right adrenal adenoma. Left adrenal gland is unremarkable. ASSESSMENT: 1. 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 Wall thickening of the sigmoid colon noted on CT 3. Cholelithiasis, incidental finding on CT 4. Right obstructing renal calculus followed by urology 5. History of constipation requiring fecal disimpaction PLAN: -Continue medical management of proctitis -Recommend colonoscopy. At this time patient refusing colonoscopy -Continue supportive care -Continue regular diet -Antibiotics per infectious disease Thank you for this consultation Physician Recreation Instructor note has been reviewed by physician. Signing provider agrees with the documented findings, assessment, and plan of care. Past Medical History Past Medical History: Diabetes Mellitus Additional Past Medical History / Comment(s): pressure ulcers[Buttock,simone heals ,rt lateral foot] History of Any Multi-Drug Resistant Organisms: None Reported Past Surgical History: Orthopedic Surgery Additional Past Surgical History / Comment(s): back pain son states pt recently "slipped a disc" taking gabapentin. Past Psychological History: No Psychological Hx Reported Smoking Status: Current every day smoker Past Alcohol Use History: Rare Past Drug Use History: None Reported Medications and Allergies Home Medications Medication Instructions Recorded Confirmed Type sitaGLIPtin [Januvia] 100 mg PO HS@199903/02/22 09/11/22 History Amiodarone [Cordarone] 200 mg PO DAILY tab 03/25/22 09/11/22 Rx Folic Acid 1 mg PO DAILY tab 03/25/22 09/11/22 Rx Furosemide [Lasix] 40 mg PO DAILY tab 03/25/22 09/11/22 Rx Sennosides [Senokot] 8.6 mg PO DAILY tab 03/25/22 09/11/22 Rx Acetaminophen [Tylenol Arthritis] 650 mg PO Q6H PRN 09/11/22 09/11/22 History Calcium Carbonate [Tums] 1,000 mg PO TID PRN 09/11/22 09/11/22 History HYDROcodone/APAP 7.5-325MG [[place] 1 tab PO Q6HR PRN 09/11/22 09/11/22 History 7.5-325] INSULIN ASPART (NovoLOG) [NovoLOG 5 unit SQ [facility] 09/11/22 09/11/22 History (formulary)] INSULIN ASPART (NovoLOG) [NovoLOG See Protocol SQ [facility] 09/11/22 09/11/22 History (formulary)] Insulin Detemir (Levemir) [Levemir] 10 unit SQ HS@199909/11/22 09/11/22 History Loperamide [Imodium] 2 mg PO BID PRN 09/11/22 09/11/22 History Melatonin 5 mg PO HS@199909/11/22 09/11/22 History Metoprolol Tartrate [Lopressor] 25 mg PO BID 09/11/22 09/11/22 History Multivitamins, Thera [Multivitamin 1 tab PO DAILY 09/11/22 09/11/22 History (formulary)] polyethylene glycoL 3350 [Miralax] 17 gm PO DAILY 09/11/22 09/11/22 History Allergies Allergy/AdvReac Type Severity Reaction Status Date / Time No Known Allergies Allergy Verified 09/11/22 13:18 Surgical - Exam Vital Signs Temp Pulse Resp BP Pulse Ox 103 F H 93 18 130/74 98 09/10/22 20:44 09/10/22 20:44 09/10/22 20:44 09/10/22 20:44 09/10/22 20:44 Results - Labs 09/13/22 10:20 09/13/22 10:20 Abnormal Lab Results - Last 24 Hours (Table) 09/12/22 09/12/22 09/12/22 Range/Units 11:54 17:11 20:14 POC Glucose (mg/dL) 207 H 198 H 185 H (70-110) mg/dL Microbiology - Last 24 Hours (Table) 09/10/22 21:35 Blood Culture - Preliminary Blood No Growth after 48 hours 09/10/22 20:50 Blood Culture - Preliminary Blood No Growth after 48 hours 09/11/22 20:57 Blood Culture - Preliminary Blood No Growth after 24 hours 09/10/22 01:45 Urine Culture - Final Urine,Voided
[2022-09-13] MEDS: ACETAMINOPHEN TAB 500 MG TAB PO PRN (15:51)
[2022-09-13 17:24] LABS: Glucose,Whole Blood 143 mg/dL (70-110)
[2022-09-13 21:05] LABS: Glucose,Whole Blood 162 mg/dL (70-110)
[2022-09-13] MEDS: LINAGLIPTIN 5 MG TABLET PO SCH (22:47)
[2022-09-13] MEDS: MELATONIN 5 MG TABLET PO SCH (22:47)
[2022-09-13] MEDS: INSULIN DETEMIR (LEVEMIR) 100 UNIT/ML SYR SQ SCH (22:48)
[2022-09-14] MEDS: HEPARIN SODIUM,PORCINE/PF 5,000 UNIT/0.5 ML SYRINGE SQ SCH ×4 (01:28→23:47)
[2022-09-14] MEDS: PIPERACILLIN-TAZOBACTAM 3.375 GM in SODIUM CHLORIDE 0.9% 100 ML IVPB SCH ×4 (01:28→23:46)
--- NOTE | 2022-09-14 06:52 | P.PN ---
Subjective Progress Note Date: 09/13/22 Patient is a 60-year-old male with a known history of diabetes type 2 insulin- dependent, currently bedbound and paralysis who is currently staying at [facility] sent to ER due to fever. Patient went to dinner with his family around 4 PM. It was reported that he smoked marijuana. At around 6 patient became altered and felt warm. Temperature was 102.7 and patient was given Tylenol at 7:50 PM. According to the family smoking marijuana is not new for the patient. When he came to ER he was unable to answer questions appropriately. Patient felt sweaty and no other complaints. No complaints of abdominal pain. No headache or dizziness. Denies any dysuria or hematuria. No abdominal pain. No bladder or bowel incontinence. No sick contacts. On admission patient was febrile with Tmax 103.0 pulse ox 98% on room air. Hemodynamically blood pressure was 130/74 and heart rate 93 and respiration 18. Chest x-ray showed no acute cardiopulmonary process. No significant change from prior. CT head showed no acute intracranial process. Bilateral mastoid air cell effusions. EKG showed sinus rhythm Laboratory pressure WBC 14.0 hemoglobin 12.7 platelets 252 Sodium 133 potassium 4.4 chloride 109 bicarb is 24 BUN 17 and creatinine 0.65 blood sugar is 112 [place] is not elevated. Bilirubin level is 0.4 troponin x1 negative and serum marker levels less than 10 influenza A B RSV and SARS COVID PCR not detected. Urinalysis showed a low with trace ketones and large leukocyte esterase with josette vated RBCs and WBCs and UDS is positive for opiates, methamphetamines, benzodiazepines and marijuana. 09/12/2022 Patient is currently resting in bed. Feels better. No complaints of chest pain or shortness of breath. Was complaining of abdominal pain mainly in the left lower quadrant and tenderness noted on physical exam. Patient was febrile Tmax 100.6 overnight. Vancomycin was added. Patient is currently on vancomycin and Zosyn. Urine culture showed normal ceferino. ID is on board. CT of the abdomen pelvis was ordered. Laboratory showed WBC 8.8 hemoglobin 11.1 platelets 489 Sodium 137 potassium 3.6 chloride 108 bicarb is 24 BUN 59 creatinine 0.64 and blood sugar is 155. 09/13/2022 Patient is seen and evaluated in follow-up today continuing to have fevers maintained on IV antibiotics with anxiety following. Urology consulted as there is a right side 5 mm stone general surgery consulted as well if there is some abnormal CT findings recommending colonoscopy. Patient is maintained on gentle IV hydration and will follow-up with repeat labs. Patient is a resident at [facility] and will be returning there once stabilized and discharged. Patient denies chest pain or shortness of breath. No reported nausea or vomiting. Patient tolerating diet. Not much of an appetite needs encouragement. Review of systems: Constitutional: reports of fatigue, with fever, no chills Cardiovascular: No reports of chest pain or palpitations Respiratory: No reports of shortness of breath or cough GI: No reports of nausea, vomiting, or diarrhea : No reports of dysuria or retention Neurovascular: reports of generalized weakness All medications have been reviewed Active Medications Acetaminophen (Acetaminophen Tab 500 Mg Tab) 1,000 mg PO Q6HR PRN PRN Reason: Fever and/ or Pain Last Admin: 09/12/22 16:06 Dose: 1,000 mg Hydrocodone Bitart/Acetaminophen (Hydrocodone/Apap 7.5-325mg 1 Each Tab) 1 each PO Q6HR PRN PRN Reason: Pain Amiodarone HCl (Amiodarone 200 Mg Tab) 200 mg PO DAILY [facility] Last Admin: 09/13/22 09:32 Dose: 200 mg Calcium Carbonate/Glycine (Calcium Carbonate 500 Mg Chewable) 1,000 mg PO TID PRN PRN Reason: Indigestion Dextrose/Water (Dextrose 50% Syringe 50 Ml) 25 ml IVP PER PROTOCOL PRN; Protocol PRN Reason: Hypoglycemia Dextrose/Water (Dextrose 50% Syringe 50 Ml) 50 ml IVP PER PROTOCOL PRN; Protocol PRN Reason: Hypoglycemia Folic Acid (Folic Acid 1 Mg Tab) 1 mg PO DAILY [facility] Last Admin: 09/13/22 09:32 Dose: 1 mg Heparin Sodium (Porcine) (Heparin Sodium,Porcine/Pf 5,000 Unit/0.5 Ml Syringe) 5,000 unit SQ Q8HR [facility] Last Admin: 09/13/22 09:31 Dose: 5,000 unit Sodium Chloride (Saline 0.9%) 1,000 mls @ 130 mls/hr IV .Q7H42M [facility] Last Admin: 09/13/22 09:31 Dose: 130 mls/hr Piperacillin Sod/Tazobactam (Sod 3.375 gm/ Sodium Chloride) 100 mls @ 25 mls/hr IVPB Q8HR [facility]; Protocol Last Admin: 09/13/22 09:32 Dose: 25 mls/hr Ibuprofen (Ibuprofen 400 Mg Tab) 400 mg PO Q6HR PRN PRN Reason: Mild Pain or Fever > 100.5 Last Admin: 09/12/22 20:29 Dose: 400 mg Insulin Aspart (Insulin Aspart (Novolog) 100 Unit/Ml Vial) 0 unit SQ [facility]; Protocol Last Admin: 09/13/22 09:33 Dose: Not Given Insulin Aspart (Insulin Aspart (Novolog) 100 Unit/Ml Vial) 5 unit SQ [facility] Last Admin: 09/13/22 09:33 Dose: Not Given Insulin Detemir (Insulin Detemir (Levemir) 100 Unit/Ml Syr) 10 unit SQ HS@1999 [facility] Last Admin: 09/12/22 20:24 Dose: 10 unit Linagliptin (Linagliptin 5 Mg Tablet) 5 mg PO HS@1999 [facility] Last Admin: 09/12/22 20:22 Dose: 5 mg Loperamide HCl (Loperamide 2 Mg Cap) 2 mg PO BID PRN PRN Reason: Diarrhea Melatonin (Melatonin 5 Mg Tablet) 5 mg PO HS@1999 [facility] Last Admin: 09/12/22 20:22 Dose: 5 mg Metoprolol Tartrate (Metoprolol Tartrate 25 Mg Tab) 25 mg PO BID [facility] Last Admin: 09/13/22 09:33 Dose: 25 mg Multivitamins (Multivitamins, Thera 1 Each Tab) 1 each PO DAILY [facility] Last Admin: 09/13/22 09:32 Dose: 1 each Naloxone HCl (Naloxone 0.4 Mg/Ml 1 Ml Vial) 0.2 mg IV Q2M PRN PRN Reason: Opioid Reversal Ondansetron HCl (Ondansetron 4 Mg/2 Ml Vial) 4 mg IVP Q6HR PRN PRN Reason: Nausea And Vomiting Polyethylene Glycol (Polyethylene Glycol 3350 17 Gm Powd.Pack) 17 gm PO DAILY [facility] Last Admin: 09/13/22 09:37 Dose: Not Given Senna (Sennosides 8.6 Mg Tab) 8.6 mg PO DAILY [facility] Last Admin: 09/13/22 09:37 Dose: Not Given Tamsulosin HCl (Tamsulosin 0.4 Mg Cap.Er.24h) 0.4 mg PO -BRKFST [facility] Physical exam: Patient is lying in the bed asleep but arousable, febrile, alert and oriented.. HEENT: Normocephalic. Neck is supple. Pupils reactive. Nostrils clear. Oral cavity is moist. Neck reveals no JVD, carotid bruits, or thyromegaly. CHEST EXAMINATION: Trachea is central. Symmetrical expansion. Lung aponte clear to auscultation and percussion. CARDIAC: Normal S1, S2 with no gallops. No murmurs ABDOMEN: Soft. Bowel sounds present. Left lower quadrant abdominal tenderness. No guarding.. No organomegaly. No abdominal bruits. Extremities: reveal no edema. No clubbing or cyanosis Neurologically awake, alert, oriented x3. Bilateral lower extremity weakness. muscle strength 3 out of 5. Skin: No rash or skin lesions. Sacral ulcers noted, present on admission. Psychiatric: Cooperative. Non-suicidal Musculoskeletal: No joint swelling or deformity Assessment: Acute febrile illness possible urinary tract infection vs abdominal etiology. Influenza A B RSV and COVID-19 not detected. Sepsis secondary to above 5 mm right side obstructing calculus with cholelithiasis noted on CT Lactic acidosis on admission Diabetes type 2 insulin-dependent Paroxysmal atrial fibrillation currently Lopressor and amiodarone. Sacral pressure ulcers unstageable, present on admission UDS positive for opiates, methamphetamines, benzodiazepines and marijuana. COPD not in exacerbation Currently everyday smoker History of L2 S1 laminectomy and decompression with lower extremity weakness and central spinal cord stenosis. Patient is wheelchair-bound. DVT prophylaxis Full code Plan: Patient will be continued on IV hydration with normal saline. Continue broad- spectrum antibiotics with Zosyn. ID is following Urine culture showed normal ceferino. CT of the abdomen pelvis was ordered showing high density bladder lumen with Zee catheter in place findings suggestive traumatic Zee catheter insertion with blood products and the urinary bladder. Circumferential wall thickening of the rectum correlate for proctitis. Additionally there is a short segment of decompression with circumferential wall thickening of the sigmoid colon new from prior. If not recently performed recommend colonoscopy evaluation of the anus and rectum. L4 to L5 adjoining endplate degeneration changes have progressed from 03/09/2022 however progresses similar to 08/10/2022. Right obstructing renal calculus measuring 5 mm. Cholelithiasis. Sequelae of granulomatous disease. Stable right adrenal adenoma. Left adrenal gland is unremarkable. Gen. surgery recommending possible colonoscopy although patient is refusing Continue with broad-spectrum antibiotics. Recommend monitoring blood sugars before meals and at bedtime and will continue with sliding scale Awaiting urology evaluation and appreciate input recommendations The impression and plan of care has been dictated by Kaykay Polk, Nurse Practitioner as directed. Dr. Evelyn MD I have performed a history and examination and MDM of this patient, discussed the same with the dictator, and agree with the dictator's assessment and plan as written ,documented as a scribe. Based on total visit time, I have performed more than 50% of the visit. Objective - Vital Signs Vital signs: Vital Signs Temp 99.4 F 09/13/22 07:28 Pulse 80 09/13/22 07:28 Resp 16 09/13/22 07:28 BP 118/65 09/13/22 07:28 Pulse Ox 96 09/13/22 07:28 FiO2 Intake & Output 09/12/22 09/13/22 09/13/22 18:59 06:59 18:59 Output Total 1000 Balance -1000 Output: Urine 1000 Other: Voiding Method Diaper Diaper Indwelling Catheter Indwelling Catheter # Bowel Movements 5 3 1 - Labs CBC & Chem 7: 09/13/22 10:20 09/13/22 10:20 Labs: Abnormal Lab Results - Last 24 Hours (Table) 09/12/22 09/12/22 09/12/22 Range/Units 11:54 17:11 20:14 POC Glucose (mg/dL) 207 H 198 H 185 H (70-110) mg/dL Microbiology - Last 24 Hours (Table) 09/10/22 21:35 Blood Culture - Preliminary Blood No Growth after 48 hours 09/10/22 20:50 Blood Culture - Preliminary Blood No Growth after 48 hours 09/11/22 20:57 Blood Culture - Preliminary Blood No Growth after 24 hours 09/10/22 01:45 Urine Culture - Final Urine,Voided
[2022-09-14 07:12] LABS: Basophils % (A) 0 %; Eosinophils # (A) 0.1 k/uL (0-0.7); Eosinophils % (A) 1 %; HGB 9.4 gm/dL (13.0-17.5); Lymphocytes % (A) 13 %; MCH 27.3 pg (25.0-35.0); MCHC 32.4 g/dL (31.0-37.0); MCV 84.3 fL (80.0-100.0); Mean Platelet Volume 7.4; Monocytes # (A) 0.4 k/uL (0-1.0); Monocytes % (A) 5 %; Neutrophils # (A) 6.3 k/uL (1.3-7.7); Neutrophils % (A) 80 %; Platelet Count 210 k/uL (150-450); RBC 3.44 m/uL (4.30-5.90); RDW 14.3 % (11.5-15.5); WBC 7.9 k/uL (3.8-10.6)
[2022-09-14 07:29] LABS: Glucose,Whole Blood 90 mg/dL (70-110)
[2022-09-14] MEDS: INSULIN ASPART (NovoLOG) 100 UNIT/ML VIAL SQ SCH ×8 (07:34→20:36)
[2022-09-14] MEDS: polyethylene glycoL 3350 17 GM POWD.PACK PO SCH (07:35)
[2022-09-14 07:42] LABS: African American GFR (CKD) >90 (>60 ml/min/1.73 sqM); Anion Gap 4 mmol/L; Blood Urea Nitrogen 9 mg/dL (9-20); Calcium 7.9 mg/dL (8.4-10.2); Carbon Dioxide 26 mmol/L (22-30); Chloride 109 mmol/L (98-107); Glucose 75 mg/dL (74-99); Non-African American GFR(CKD) >90 (>60 ml/min/1.73 sqM); Potassium 3.2 mmol/L (3.5-5.1); Sodium 139 mmol/L (137-145)
[2022-09-14] MEDS: SENNOSIDES 8.6 MG TAB PO SCH (08:11)
[2022-09-14] MEDS: MULTIVITAMINS, THERA 1 EACH TAB PO SCH (08:11)
[2022-09-14] MEDS: AMIODARONE 200 MG TAB PO SCH (08:11)
[2022-09-14] MEDS: METOPROLOL TARTRATE 25 MG TAB PO SCH ×2 (08:11→20:43)
[2022-09-14] MEDS: TAMSULOSIN 0.4 MG CAP.ER.24H PO SCH (08:11)
[2022-09-14] MEDS: FOLIC ACID 1 MG TAB PO SCH (08:11)
[2022-09-14] MEDS ORDERED: Potassium Replacement Protocol 1 EACH MISC MISCELLANE PRN (09:45)
[2022-09-14] MEDS: POTASSIUM CHLORIDE ER 20 MEQ TAB.ER PO SCH ×2 (11:16→12:13)
[2022-09-14 11:31] LABS: Glucose,Whole Blood 89 mg/dL (70-110)
--- NOTE | 2022-09-14 13:49 | P.PN ---
Subjective Progress Note Date: 09/14/22 CHIEF COMPLAINT: Fever and altered mental status HISTORY OF PRESENT ILLNESS: Patient with evidence of fever and altered mental status and UTI on admission. Computed tomography scan of the abdomen and pelvis was completed showing wall thickening of the rectum and thickening of the sigmoid colon. There is concerns of proctitis. Patient continues to report his chronic abdominal pain in the suprapubic and left lower quadrant area. Denies any rectal pain. Pain has not worsened. He is afebrile. WBC 7.9. Patient seen and examined with Dr. al PHYSICAL EXAM: VITAL SIGNS: Reviewed. GENERAL: Well-developed in no acute distress. HEENT: No sclera icterus. Extraocular movements grossly intact. Moist buccal mucosa. Head is atraumatic, normocephalic. ABDOMEN: Soft. Nondistended. NEUROLOGIC: Alert and oriented. Cranial nerves II through XII grossly intact. ASSESSMENT: 1. 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 Wall thickening of the sigmoid colon noted on CT 3. Cholelithiasis, incidental finding on CT 4. Right obstructing renal calculus followed by urology 5. History of constipation requiring fecal disimpaction PLAN: -Colonoscopy is recommended. Patient refusing colonoscopy -Repeat computed tomography scan abdomen and pelvis with oral and IV contrast tomorrow for further follow-up on the thickening noted in the rectum and sigmoid colon -Continue antibiotics -Continue conservative management Physician Pulverizing And Sifting Operator note has been reviewed by physician. Signing provider agrees with the documented findings, assessment, and plan of care. Objective - Vital Signs Vital signs: Vital Signs Temp 99.5 F 09/14/22 13:29 Pulse 73 09/14/22 13:29 Resp 16 09/14/22 13:29 BP 127/69 09/14/22 13:29 Pulse Ox 98 09/14/22 13:29 FiO2 Intake & Output 09/13/22 09/14/22 09/14/22 18:59 06:59 18:59 Output Total 700 1300 Balance -700 -1300 Output: Urine 700 1300 Other: Voiding Method Diaper Diaper Indwelling Catheter Indwelling Catheter Indwelling Catheter # Bowel Movements 1 0 1 - Labs CBC & Chem 7: 09/14/22 06:47 09/14/22 06:47 Labs: Abnormal Lab Results - Last 24 Hours (Table) 09/13/22 09/13/22 09/14/22 Range/Units 17:23 21:03 06:47 RBC 3.44 L (4.30-5.90) m/uL Hgb 9.4 L (13.0-17.5) gm/dL Hct 29.0 L (39.0-53.0) % Potassium (3.5-5.1) mmol/L Chloride (98-107) mmol/L Creatinine (0.66-1.25) mg/dL POC Glucose (mg/dL) 143 H 162 H (70-110) mg/dL Calcium (8.4-10.2) mg/dL 09/14/22 Range/Units 06:47 RBC (4.30-5.90) m/uL Hgb (13.0-17.5) gm/dL Hct (39.0-53.0) % Potassium 3.2 L (3.5-5.1) mmol/L Chloride 109 H (98-107) mmol/L Creatinine 0.51 L (0.66-1.25) mg/dL POC Glucose (mg/dL) (70-110) mg/dL Calcium 7.9 L (8.4-10.2) mg/dL Microbiology - Last 24 Hours (Table) 09/10/22 21:35 Blood Culture - Preliminary Blood No Growth after 72 hours 09/10/22 20:50 Blood Culture - Preliminary Blood No Growth after 72 hours 09/11/22 20:57 Blood Culture - Preliminary Blood No Growth after 48 hours
[2022-09-14 15:49] LABS: Appearance,Urine Cloudy (Clear); Bacteria,Urine Occasional /hpf; Bilirubin,Urine Negative (Negative); Blood,Urine Small (Negative); Budding Yeast,Urine Moderate /hpf; Calcium Oxalate Crystals,Urine Occasional /hpf; Color,Urine Yellow; Glucose,Urine (UA) Negative (Negative); Ketones,Urine Negative (Negative); Leukocyte Esterase,Urine Large (Negative); Mucus,Urine Occasional /hpf; Nitrite,Urine Negative (Negative); PH, Urine 6.5 (5.0-8.0); Protein,Urine 1+ (Negative); RBC,Urine 43 /hpf (0-5); Specific Gravity,Urine 1.024 (1.001-1.035); Urobilinogen,Urine <2.0 mg/dL (<2.0); WBC,Urine >182 /hpf (0-5)
[2022-09-14 17:20] LABS: Glucose,Whole Blood 247 mg/dL (70-110)
--- NOTE | 2022-09-14 19:12 | P.PN ---
Subjective Progress Note Date: 09/13/22 Principal diagnosis: Fever possible UTI Patient is a 62-year-old male with a past medical history significant for diabetes mellitus patient is currently a resident of [facility] for the last few months patient has been sent to the ER for evaluation of mental status changes, patient was noticed to be febrile did have a positive UA concerning for possible UTI. On today's evaluation that is 09/13/2022 patient is afebrile today, patient is slightly more awake alert, the patient denies chest pain shortness of breath or cough has been complaining of some abdominal discomfort no vomiting or diarrhea has been reported Objective - Vital Signs Vital signs: Vital Signs Temp 99.4 F 09/13/22 07:28 Pulse 80 09/13/22 07:28 Resp 16 09/13/22 07:28 BP 118/65 09/13/22 07:28 Pulse Ox 96 09/13/22 07:28 FiO2 Intake & Output 09/12/22 09/13/22 09/13/22 18:59 06:59 18:59 Output Total 1000 400 Balance -1000 -400 Output: Urine 1000 400 Other: Voiding Method Diaper Diaper Diaper Indwelling Catheter Indwelling Catheter Indwelling Catheter # Bowel Movements 5 3 1 - Exam GENERAL DESCRIPTION: A middle-aged male lying in bed in no distress RESPIRATORY SYSTEM: Unlabored breathing , decreased breath sounds at bases HEART: S1 S2 regular rate and rhythm , ABDOMEN: Soft , mild tenderness EXTREMITIES: No edema feet - Labs CBC & Chem 7: 09/14/22 06:47 09/14/22 06:47 Labs: Abnormal Lab Results - Last 24 Hours (Table) 09/12/22 09/12/22 09/13/22 Range/Units 17:11 20:14 10:20 RBC 3.89 L (4.30-5.90) m/uL Hgb 9.9 L (13.0-17.5) gm/dL Hct 32.9 L (39.0-53.0) % MCHC 30.1 L (31.0-37.0) g/dL Lymphocytes # 0.7 L (1.0-4.8) k/uL Potassium (3.5-5.1) mmol/L Creatinine (0.66-1.25) mg/dL Glucose (74-99) mg/dL POC Glucose (mg/dL) 198 H 185 H (70-110) mg/dL Calcium (8.4-10.2) mg/dL 09/13/22 09/13/22 Range/Units 10:20 11:27 RBC (4.30-5.90) m/uL Hgb (13.0-17.5) gm/dL Hct (39.0-53.0) % MCHC (31.0-37.0) g/dL Lymphocytes # (1.0-4.8) k/uL Potassium 3.4 L (3.5-5.1) mmol/L Creatinine 0.50 L (0.66-1.25) mg/dL Glucose 133 H (74-99) mg/dL POC Glucose (mg/dL) 156 H (70-110) mg/dL Calcium 7.9 L (8.4-10.2) mg/dL Microbiology - Last 24 Hours (Table) 09/10/22 21:35 Blood Culture - Preliminary Blood No Growth after 48 hours 09/10/22 20:50 Blood Culture - Preliminary Blood No Growth after 48 hours 09/11/22 20:57 Blood Culture - Preliminary Blood No Growth after 24 hours 09/10/22 01:45 Urine Culture - Final Urine,Voided Assessment and Plan (1) UTI (urinary tract infection) Current Visit: Yes Status: Acute Code(s): N39.0 - URINARY TRACT INFECTION, SITE NOT SPECIFIED SNOMED Code(s): 14548542 (2) Stage III pressure ulcer of sacral region Current Visit: Yes Status: Acute Code(s): L89.153 - PRESSURE ULCER OF SACRAL REGION, STAGE 3 SNOMED Code(s): 29462714006895 (3) Fever Current Visit: Yes Status: Acute Code(s): R50.9 - FEVER, UNSPECIFIED SNOMED Code(s): 809293635 Plan: 1patient presented to the hospital with sepsis in this patient who did have a fever elevated white count elevated lactic acid source is possible urinary has abated her positive UA patient chest x-ray was negative no significant abdominal tenderness was noticed patient did have a sacral wound overall wound base looks clean with no evidence of any cellulitis 2--local wound care to the sacral wound with the Medihoney followed by moist dressing change daily discussed with the nursing staff 3-Patient did have CT of abdominal pelvis with concern for possible traumatic insertion of the Zee and evidence of cystitis also with evidence of proctitis patient has been evaluated by general surgery patient refusing colonoscopy as recommended by general surgery 4patient seemed to have Some Clinical Improvement to Continue with the Zosyn While Waiting for the Culture Finalized
--- NOTE | 2022-09-14 19:13 | P.PN ---
Subjective Progress Note Date: 09/14/22 Principal diagnosis: Fever possible UTI Patient is a 62-year-old male with a past medical history significant for diabetes mellitus patient is currently a resident of [facility] for the last few months patient has been sent to the ER for evaluation of mental status changes, patient was noticed to be febrile did have a positive UA concerning for possible UTI. On today's evaluation that is 09/14/2022 patient remains to be afebrile, the patient denies chest pain shortness of breath or cough , the patient denies having any nausea no vomiting abdominal pain has improved no diarrhea or problem with the catheter Objective - Vital Signs Vital signs: Vital Signs Temp 99.5 F 09/14/22 13:29 Pulse 73 09/14/22 13:29 Resp 16 09/14/22 13:29 BP 127/69 09/14/22 13:29 Pulse Ox 98 09/14/22 13:29 FiO2 Intake & Output 09/13/22 09/14/22 09/14/22 18:59 06:59 18:59 Output Total 700 1300 Balance -700 -1300 Output: Urine 700 1300 Other: Voiding Method Diaper Diaper Indwelling Catheter Indwelling Catheter Indwelling Catheter # Bowel Movements 1 0 1 - Exam GENERAL DESCRIPTION: A middle-aged male lying in bed in no distress RESPIRATORY SYSTEM: Unlabored breathing , decreased breath sounds at bases HEART: S1 S2 regular rate and rhythm , ABDOMEN: Soft , mild tenderness EXTREMITIES: No edema feet - Labs CBC & Chem 7: 09/14/22 06:47 09/14/22 06:47 Labs: Abnormal Lab Results - Last 24 Hours (Table) 09/13/22 09/13/22 09/14/22 Range/Units : 21:03 06:47 RBC 3.44 L (4.30-5.90) m/uL Hgb 9.4 L (13.0-17.5) gm/dL Hct 29.0 L (39.0-53.0) % Potassium (3.5-5.1) mmol/L Chloride (98-107) mmol/L Creatinine (0.66-1.25) mg/dL POC Glucose (mg/dL) 143 H 162 H (70-110) mg/dL Calcium (8.4-10.2) mg/dL 09/14/22 Range/Units 06:47 RBC (4.30-5.90) m/uL Hgb (13.0-17.5) gm/dL Hct (39.0-53.0) % Potassium 3.2 L (3.5-5.1) mmol/L Chloride 109 H (98-107) mmol/L Creatinine 0.51 L (0.66-1.25) mg/dL POC Glucose (mg/dL) (70-110) mg/dL Calcium 7.9 L (8.4-10.2) mg/dL Microbiology - Last 24 Hours (Table) 09/10/22 21:35 Blood Culture - Preliminary Blood No Growth after 72 hours 09/10/22 20:50 Blood Culture - Preliminary Blood No Growth after 72 hours 09/11/22 20:57 Blood Culture - Preliminary Blood No Growth after 48 hours Assessment and Plan (1) UTI (urinary tract infection) Current Visit: Yes Status: Acute Code(s): N39.0 - URINARY TRACT INFECTION, SITE NOT SPECIFIED SNOMED Code(s): 52282754 (2) Stage III pressure ulcer of sacral region Current Visit: Yes Status: Acute Code(s): L89.153 - PRESSURE ULCER OF SACRAL REGION, STAGE 3 SNOMED Code(s): 14385205616814 (3) Fever Current Visit: Yes Status: Acute Code(s): R50.9 - FEVER, UNSPECIFIED SNOMED Code(s): 704837449 Plan: 1patient presented to the hospital with sepsis in this patient who did have a fever elevated white count elevated lactic acid source is possible urinary has abated her positive UA patient chest x-ray was negative no significant abdominal tenderness was noticed patient did have a sacral wound overall wound base looks clean with no evidence of any cellulitis 2--local wound care to the sacral wound with the Medihoney followed by moist dressing change daily discussed with the nursing staff 3-Patient did have CT of abdominal pelvis with concern for possible traumatic insertion of the Zee and evidence of cystitis also with evidence of proctitis patient has been evaluated by general surgery patient refusing colonoscopy as recommended by general surgery 4patient seemed to have Some Clinical Improvement, However Cultures so Far Negative We Will Repeat His UA Continue with the Zosyn Possible Oral Augmentin on Discharge Discussed with the Admitting Team Time with Patient: Less than 30
[2022-09-14 20:01] LABS: Glucose,Whole Blood 137 mg/dL (70-110)
[2022-09-14] MEDS: LINAGLIPTIN 5 MG TABLET PO SCH (20:43)
[2022-09-14] MEDS: INSULIN DETEMIR (LEVEMIR) 100 UNIT/ML SYR SQ SCH (20:43)
[2022-09-14] MEDS: MELATONIN 5 MG TABLET PO SCH (20:43)
--- NOTE | 2022-09-15 06:53 | P.PN ---
Subjective Progress Note Date: 09/14/22 Patient is a 60-year-old male with a known history of diabetes type 2 insulin- dependent, currently bedbound and paralysis who is currently staying at [facility] sent to ER due to fever. Patient went to dinner with his family around 4 PM. It was reported that he smoked marijuana. At around 6 patient became altered and felt warm. Temperature was 102.7 and patient was given Tylenol at 7:50 PM. According to the family smoking marijuana is not new for the patient. When he came to ER he was unable to answer questions appropriately. Patient felt sweaty and no other complaints. No complaints of abdominal pain. No headache or dizziness. Denies any dysuria or hematuria. No abdominal pain. No bladder or bowel incontinence. No sick contacts. On admission patient was febrile with Tmax 103.0 pulse ox 98% on room air. Hemodynamically blood pressure was 130/74 and heart rate 93 and respiration 18. Chest x-ray showed no acute cardiopulmonary process. No significant change from prior. CT head showed no acute intracranial process. Bilateral mastoid air cell effusions. EKG showed sinus rhythm Laboratory pressure WBC 14.0 hemoglobin 12.7 platelets 252 Sodium 133 potassium 4.4 chloride 109 bicarb is 24 BUN 17 and creatinine 0.65 blood sugar is 112 Whitt is not elevated. Bilirubin level is 0.4 troponin x1 negative and serum marker levels less than 10 influenza A B RSV and SARS COVID PCR not detected. Urinalysis showed a low with trace ketones and large leukocyte esterase with josette vated RBCs and WBCs and UDS is positive for opiates, methamphetamines, benzodiazepines and marijuana. 09/12/2022 Patient is currently resting in bed. Feels better. No complaints of chest pain or shortness of breath. Was complaining of abdominal pain mainly in the left lower quadrant and tenderness noted on physical exam. Patient was febrile Tmax 100.6 overnight. Vancomycin was added. Patient is currently on vancomycin and Zosyn. Urine culture showed normal ceferino. ID is on board. CT of the abdomen pelvis was ordered. Laboratory showed WBC 8.8 hemoglobin 11.1 platelets 489 Sodium 137 potassium 3.6 chloride 108 bicarb is 24 BUN 59 creatinine 0.64 and blood sugar is 155. 09/13/2022 Patient is seen and evaluated in follow-up today continuing to have fevers maintained on IV antibiotics with anxiety following. Urology consulted as there is a right side 5 mm stone general surgery consulted as well if there is some abnormal CT findings recommending colonoscopy. Patient is maintained on gentle IV hydration and will follow-up with repeat labs. Patient is a resident at [facility] and will be returning there once stabilized and discharged. Patient denies chest pain or shortness of breath. No reported nausea or vomiting. Patient tolerating diet. Not much of an appetite needs encouragement. 09/14/2022 Patient is seen and evaluated in follow-up maintained on IV antibiotics in the form of Zosyn with anxiety following. Urology has been consulted as a 5 mm obstructing stone was found on the right. Has received a indwelling Zee catheter and will continue with outpatient follow-up. Cultures have been negative and infectious disease following recommending repeat urinalysis prior to discharge. General surgery following as well and patient continues to refuse colonoscopy and repeat CT abdomen is ordered and pending. Patient is currently afebrile with no reports of chest pain or shortness of breath. Patient denies any further abdominal pain and requesting to return to the [facility]. Patient is tolerating diet with no reports of nausea or vomiting noted. Review of systems: Constitutional: no reports of fatigue, no fever, no chills Cardiovascular: No reports of chest pain or palpitations Respiratory: No reports of shortness of breath or cough GI: No reports of nausea, vomiting, or diarrhea : No reports of dysuria or retention Neurovascular: reports of generalized weakness All medications have been reviewed Active Medications Acetaminophen (Acetaminophen Tab 500 Mg Tab) 1,000 mg PO Q6HR PRN PRN Reason: Fever and/ or Pain Last Admin: 09/13/22 15:51 Dose: 1,000 mg Hydrocodone Bitart/Acetaminophen (Hydrocodone/Apap 7.5-325mg 1 Each Tab) 1 each PO Q6HR PRN PRN Reason: Pain Amiodarone HCl (Amiodarone 200 Mg Tab) 200 mg PO DAILY [place] Last Admin: 09/14/22 08:11 Dose: 200 mg Calcium Carbonate/Glycine (Calcium Carbonate 500 Mg Chewable) 1,000 mg PO TID PRN PRN Reason: Indigestion Dextrose/Water (Dextrose 50% Syringe 50 Ml) 25 ml IVP PER PROTOCOL PRN; Protocol PRN Reason: Hypoglycemia Dextrose/Water (Dextrose 50% Syringe 50 Ml) 50 ml IVP PER PROTOCOL PRN; Protocol PRN Reason: Hypoglycemia Folic Acid (Folic Acid 1 Mg Tab) 1 mg PO DAILY [facility] Last Admin: 09/14/22 08:11 Dose: 1 mg Heparin Sodium (Porcine) (Heparin Sodium,Porcine/Pf 5,000 Unit/0.5 Ml Syringe) 5,000 unit SQ Q8HR [facility] Last Admin: 09/14/22 08:11 Dose: 5,000 unit Piperacillin Sod/Tazobactam (Sod 3.375 gm/ Sodium Chloride) 100 mls @ 25 mls/hr IVPB Q8HR [facility]; Protocol Last Admin: 09/14/22 08:10 Dose: 25 mls/hr Ibuprofen (Ibuprofen 400 Mg Tab) 400 mg PO Q6HR PRN PRN Reason: Mild Pain or Fever > 100.5 Last Admin: 09/12/22 20:29 Dose: 400 mg Insulin Aspart (Insulin Aspart (Novolog) 100 Unit/Ml Vial) 0 unit SQ [facility]; Protocol Last Admin: 09/14/22 07:34 Dose: Not Given Insulin Aspart (Insulin Aspart (Novolog) 100 Unit/Ml Vial) 5 unit SQ [facility] Last Admin: 09/14/22 08:10 Dose: 5 unit Insulin Detemir (Insulin Detemir (Levemir) 100 Unit/Ml Syr) 10 unit SQ HS@1999 [facility] Last Admin: 09/13/22 22:48 Dose: 10 unit Linagliptin (Linagliptin 5 Mg Tablet) 5 mg PO HS@1999 [facility] Last Admin: 09/13/22 22:47 Dose: 5 mg Loperamide HCl (Loperamide 2 Mg Cap) 2 mg PO BID PRN PRN Reason: Diarrhea Melatonin (Melatonin 5 Mg Tablet) 5 mg PO HS@1999 [facility] Last Admin: 09/13/22 22:47 Dose: 5 mg Metoprolol Tartrate (Metoprolol Tartrate 25 Mg Tab) 25 mg PO BID [facility] Last Admin: 09/14/22 08:11 Dose: 25 mg Miscellaneous Information (Potassium Replacement Protocol 1 Each Misc) 1 each MISCELLANE DAILY PRN; Protocol PRN Reason: Per Protocol Multivitamins (Multivitamins, Thera 1 Each Tab) 1 each PO DAILY [facility] Last Admin: 09/14/22 08:11 Dose: 1 each Naloxone HCl (Naloxone 0.4 Mg/Ml 1 Ml Vial) 0.2 mg IV Q2M PRN PRN Reason: Opioid Reversal Ondansetron HCl (Ondansetron 4 Mg/2 Ml Vial) 4 mg IVP Q6HR PRN PRN Reason: Nausea And Vomiting Polyethylene Glycol (Polyethylene Glycol 3350 17 Gm Powd.Pack) 17 gm PO DAILY [facility] Last Admin: 09/14/22 07:35 Dose: Not Given Potassium Chloride (Potassium Chloride Er 20 Meq Tab.Er) 20 meq PO Q1HR [facility]; Protocol Stop: 09/14/22 11:01 Senna (Sennosides 8.6 Mg Tab) 8.6 mg PO DAILY [facility] Last Admin: 09/14/22 08:11 Dose: 8.6 mg Tamsulosin HCl (Tamsulosin 0.4 Mg Cap.Er.24h) 0.4 mg PO PC-BRKFST [facility] Last Admin: 09/14/22 08:11 Dose: 0.4 mg Physical exam: Patient is lying in the bed awake, alert and oriented.. HEENT: Normocephalic. Neck is supple. Pupils reactive. Nostrils clear. Oral cavity is moist. Neck reveals no JVD, carotid bruits, or thyromegaly. CHEST EXAMINATION: Trachea is central. Symmetrical expansion. Lung aponte clear to auscultation and percussion. CARDIAC: Normal S1, S2 with no gallops. No murmurs ABDOMEN: Soft. Bowel sounds present. No tenderness noted. No guarding.. No organomegaly. No abdominal bruits. Extremities: reveal no edema. No clubbing or cyanosis Neurologically awake, alert, oriented x3. Bilateral lower extremity weakness. muscle strength 3 out of 5. Skin: No rash or skin lesions. Sacral ulcers noted, present on admission. Psychiatric: Cooperative. Non-suicidal Musculoskeletal: No joint swelling or deformity Assessment: Acute febrile illness possible urinary tract infection vs abdominal etiology. Influenza A B RSV and COVID-19 not detected. Sepsis secondary to above 5 mm right side obstructing calculus with cholelithiasis noted on CT, status post indwelling Zee catheter Lactic acidosis on admission, improved Diabetes type 2 insulin-dependent Paroxysmal atrial fibrillation currently Lopressor and amiodarone. Sacral pressure ulcers unstageable, present on admission UDS positive for opiates, methamphetamines, benzodiazepines and marijuana. COPD not in exacerbation Currently everyday smoker History of L2 S1 laminectomy and decompression with lower extremity weakness and central spinal cord stenosis. Patient is wheelchair-bound. DVT prophylaxis Full code Plan: Patient will be continued on IV hydration with normal saline. Continue broad- spectrum antibiotics with Zosyn. ID is following recommending repeat urinalysis with possible transition to oral antibiotics on discharge Urology following recommending continuing with indwelling Zee catheter and follow-up outpatient General surgery following an patient has refused colonoscopy and repeat CT abdomen is ordered and pending Recommend monitoring blood sugars before meals and at bedtime and will continue with sliding scale Will discuss further with ID about discharge planning and awaiting repeat urinalysis along with CT abdomen from surgery Patient is returning to [employer] work following once stabilized and cleared by consultations. Possible discharge in 24-48 hours The impression and plan of care has been dictated by Kaykay Polk, Nurse Practitioner as directed. Dr. Evelyn MD I have performed a history and examination and MDM of this patient, discussed the same with the dictator, and agree with the dictator's assessment and plan as written ,documented as a scribe. Based on total visit time, I have performed more than 50% of the visit. Objective - Vital Signs Vital signs: Vital Signs Temp 98.9 F 09/14/22 07:30 Pulse 75 09/14/22 07:30 Resp 16 09/14/22 07:30 BP 142/70 09/14/22 07:30 Pulse Ox 98 09/14/22 07:30 FiO2 Intake & Output 09/13/22 09/14/22 09/14/22 18:59 06:59 18:59 Output Total 700 1300 Balance -700 -1300 Output: Urine 700 1300 Other: Voiding Method Diaper Diaper Indwelling Catheter Indwelling Catheter # Bowel Movements 1 0 - Labs CBC & Chem 7: 09/14/22 06:47 09/14/22 06:47 Labs: Abnormal Lab Results - Last 24 Hours (Table) 09/13/22 09/13/22 09/13/22 Range/Units 10:20 10:20 11:27 RBC 3.89 L (4.30-5.90) m/uL Hgb 9.9 L (13.0-17.5) gm/dL Hct 32.9 L (39.0-53.0) % MCHC 30.1 L (31.0-37.0) g/dL Lymphocytes # 0.7 L (1.0-4.8) k/uL Potassium 3.4 L (3.5-5.1) mmol/L Chloride (98-107) mmol/L Creatinine 0.50 L (0.66-1.25) mg/dL Glucose 133 H (74-99) mg/dL POC Glucose (mg/dL) 156 H (70-110) mg/dL Calcium 7.9 L (8.4-10.2) mg/dL 09/13/22 09/13/22 09/14/22 Range/Units : 21:03 06:47 RBC 3.44 L (4.30-5.90) m/uL Hgb 9.4 L (13.0-17.5) gm/dL Hct 29.0 L (39.0-53.0) % MCHC (31.0-37.0) g/dL Lymphocytes # (1.0-4.8) k/uL Potassium (3.5-5.1) mmol/L Chloride (98-107) mmol/L Creatinine (0.66-1.25) mg/dL Glucose (74-99) mg/dL POC Glucose (mg/dL) 143 H 162 H (70-110) mg/dL Calcium (8.4-10.2) mg/dL 09/14/22 Range/Units 06:47 RBC (4.30-5.90) m/uL Hgb (13.0-17.5) gm/dL Hct (39.0-53.0) % MCHC (31.0-37.0) g/dL Lymphocytes # (1.0-4.8) k/uL Potassium 3.2 L (3.5-5.1) mmol/L Chloride 109 H (98-107) mmol/L Creatinine 0.51 L (0.66-1.25) mg/dL Glucose (74-99) mg/dL POC Glucose (mg/dL) (70-110) mg/dL Calcium 7.9 L (8.4-10.2) mg/dL Microbiology - Last 24 Hours (Table) 09/10/22 21:35 Blood Culture - Preliminary Blood No Growth after 72 hours 09/10/22 20:50 Blood Culture - Preliminary Blood No Growth after 72 hours 09/11/22 20:57 Blood Culture - Preliminary Blood No Growth after 48 hours
[2022-09-15 07:06] LABS: Glucose,Whole Blood 107 mg/dL (70-110)
[2022-09-15] MEDS: INSULIN ASPART (NovoLOG) 100 UNIT/ML VIAL SQ SCH ×4 (08:22→12:58)
[2022-09-15] MEDS: IOPAMIDOL CONTRAST (ORAL USE) VIAL PO PRN ×2 (08:23→09:33)
[2022-09-15] MEDS: HEPARIN SODIUM,PORCINE/PF 5,000 UNIT/0.5 ML SYRINGE SQ SCH ×2 (10:12→15:12)
[2022-09-15] MEDS: polyethylene glycoL 3350 17 GM POWD.PACK PO SCH (10:14)
[2022-09-15] MEDS: PIPERACILLIN-TAZOBACTAM 3.375 GM in SODIUM CHLORIDE 0.9% 100 ML IVPB SCH ×2 (10:14→15:12)
[2022-09-15] MEDS: FOLIC ACID 1 MG TAB PO SCH (10:15)
[2022-09-15] MEDS: METOPROLOL TARTRATE 25 MG TAB PO SCH (10:15)
[2022-09-15] MEDS: TAMSULOSIN 0.4 MG CAP.ER.24H PO SCH (10:15)
[2022-09-15] MEDS: SENNOSIDES 8.6 MG TAB PO SCH (10:15)
[2022-09-15] MEDS: AMIODARONE 200 MG TAB PO SCH (10:16)
[2022-09-15] MEDS: MULTIVITAMINS, THERA 1 EACH TAB PO SCH (10:16)
--- NOTE | 2022-09-15 10:32 | CT ---
EXAMINATION TYPE: CT abdomen pelvis w con CT DLP: 1721 mGycm, Automated exposure control for dose reduction was used. DATE OF EXAM: 09/15/2022 10:17 AM COMPARISON: CT abdomen pelvis most recent from 09/12/2022 . CLINICAL INDICATION:Male, 62 years old with history of Follow up on proctitis and thickening of sig c olon; TECHNIQUE: Standard CT of the abdomen and pelvis following the administration of 100 cc of Isovue 3 00 IV contrast material and oral contrast. Coronal and sagittal reformats were performed. FINDINGS: LOWER CHEST: Trace bilateral pleural effusions associated atelectasis. ABDOMEN LIVER: Focal fatty infiltration adjacent to the fossa ligament. Periportal edema identified. Few calc ified granulomas. GALLBLADDER AND BILE DUCTS: Mildly distended gallbladder with gallstones and pericholecystic fluid. PANCREAS: Unremarkable. SPLEEN: Scattered calcified granulomas. ADRENAL GLANDS: Stable right adrenal adenoma measuring up to 3.0 cm. The left adrenal gland is unrema rkable. KIDNEYS AND URETERS: No evidence of hydronephrosis. Stable right renal nonobstructive 6 mm calculus. The kidneys enhance symmetrically. Contrast is demonstrated within both collecting systems on the del ayed phase. PELVIS BLADDER: Nondistended with Zee catheter in place. There is circumferential wall thickening of the d ecompressed urinary bladder. There is trace high-density material again demonstrated within the urina ry bladder. REPRODUCTIVE: Unremarkable. ABDOMEN & PELVIS STOMACH AND BOWEL: Stomach and duodenum are unremarkable. Enteric contrast reaches the rectum. Simila r circumferential wall thickening of the rectum. Presacral edema identified. Improved wall thickening of the sigmoid colon. No evidence of bowel obstruction. PERITONEUM: No evidence of pneumoperitoneum or free fluid. VASCULATURE: Mild atherosclerotic calcifications are present throughout the abdominal aorta and its b ranches. No evidence of aortic aneurysm. MUSCULOSKELETAL: No acute osseous abnormalities. Multilevel Schmorl's nodes. Left gluteus more int ramuscular lipoma redemonstrated. LYMPH NODES: No gross evidence for lymphadenopathy. SOFT TISSUE/ABDOMINAL WALL: Left fat-containing inguinal hernia redemonstrated. IMPRESSION: 1. Similar cervical ventral wall thickening of the rectum with improved wall thickening of the sigmo id colon. Findings are concerning for proctitis. 2. Decompressed urinary bladder with Zee catheter in place. There is circumferential wall thickenin g with trace high density material within the urinary bladder. Findings may relate to cystitis with b lood products. Correlation with urinalysis is recommended. 3. Cholelithiasis with pericolic fluid and periportal edema. Findings may relate to aggressive hydrat ion however acute cholecystitis is not totally excluded. Clinical correlation and consideration for r ight upper quadrant ultrasound recommended. 4. Stable right adrenal adenoma. 5. Sequelae of granulomatous disease.
[2022-09-15 11:22] LABS: Glucose,Whole Blood 136 mg/dL (70-110)
--- NOTE | 2022-09-15 13:03 | P.PN ---
Subjective Progress Note Date: 09/15/22 CHIEF COMPLAINT: Fever and altered mental status HISTORY OF PRESENT ILLNESS: Patient with evidence of fever and altered mental status and UTI on admission. Patient had repeat computed tomography scan abdo men and pelvis with oral contrast showing similar cervical ventral wall thickening of the rectum with improvement wall thickening of the sigmoid colon. Findings are concerning for proctitis. Decompressed urinary bladder with Zee catheter in place. There is circumferential wall thickening with trace high density material within the year bladder. Findings may relate to cystitis with blood. Cholelithiasis with the pericolic fluid and periportal edema. Findings may relate to aggressive hydration however acute cholecystitis is not excluded. Stable right adrenal adenoma. Sequelae of granulomatous disease. Patient denies any right upper quadrant pain. He continues to have lower abdominal pain but abdomen is soft on exam. Patient seen and examined with Dr. al PHYSICAL EXAM: VITAL SIGNS: Reviewed. GENERAL: Well-developed in no acute distress. HEENT: No sclera icterus. Extraocular movements grossly intact. Moist buccal mucosa. Head is atraumatic, normocephalic. ABDOMEN: Soft. Nondistended. Nontender NEUROLOGIC: Alert and oriented. Cranial nerves II through XII grossly intact. ASSESSMENT: 1. 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 Wall thickening of the sigmoid colon improved on repeat CAT scan 3. Cholelithiasis PLAN: -Patient can be discharged from surgical standpoint with outpatient follow-up -Colonoscopy is recommended. Patient refusing colonoscopy -Antibiotics per ID service -Continue conservative management Physician Medical Massage Therapist note has been reviewed by physician. Signing provider agrees with the documented findings, assessment, and plan of care. Objective - Vital Signs Vital signs: Vital Signs Temp 98.9 F 09/15/22 07:07 Pulse 70 09/15/22 08:50 Resp 16 09/15/22 08:50 BP 124/69 09/15/22 07:07 Pulse Ox 96 09/15/22 07:07 FiO2 Intake & Output 09/14/22 09/15/22 09/15/22 18:59 06:59 18:59 Output Total 475 400 Balance -475 -400 Output: Urine 475 400 Other: Voiding Method Indwelling Catheter Indwelling Catheter Indwelling Catheter # Bowel Movements 1 1 - Labs CBC & Chem 7: 09/14/22 06:47 09/14/22 06:47 Labs: Abnormal Lab Results - Last 24 Hours (Table) 09/14/22 09/14/22 09/14/22 Range/Units 15:06 17:19 20:00 POC Glucose (mg/dL) 247 H 137 H (70-110) mg/dL Urine Protein 1+ H (Negative) Urine Blood Small H (Negative) Ur Leukocyte Esterase Large H (Negative) Urine RBC 43 H (0-5) /hpf Urine WBC >182 H (0-5) /hpf Urine WBC Clumps Few H (None) /hpf Calcium Oxalate Crystal Occasional H (None) /hpf Urine Bacteria Occasional H (None) /hpf Urine Mucus Occasional H (None) /hpf Urine Yeast (Budding) Moderate H (None) /hpf 09/15/22 Range/Units 11:20 POC Glucose (mg/dL) 136 H (70-110) mg/dL Urine Protein (Negative) Urine Blood (Negative) Ur Leukocyte Esterase (Negative) Urine RBC (0-5) /hpf Urine WBC (0-5) /hpf Urine WBC Clumps (None) /hpf Calcium Oxalate Crystal (None) /hpf Urine Bacteria (None) /hpf Urine Mucus (None) /hpf Urine Yeast (Budding) (None) /hpf Microbiology - Last 24 Hours (Table) 09/14/22 15:06 Urine Culture - Preliminary Urine,Voided 09/10/22 21:35 Blood Culture - Preliminary Blood No Growth after 96 hours 09/10/22 20:50 Blood Culture - Preliminary Blood No Growth after 96 hours 09/11/22 20:57 Blood Culture - Preliminary Blood No Growth after 72 hours
[2022-09-15 13:32] VITALS: BP 117/75; PULSE 63; RESP 18; TEMP 99.1
--- NOTE | 2022-09-15 14:02 | P.DS ---
Providers Date of admission: 09/11/22 00:02 Expected date of discharge: 09/15/22 Attending physician: Kayode Stewart MD Consults: 09/11/22 00:24 Consult Physician Urgent Consulting Provider: Jim Eugene Consult Reason/Comments: fever Do you want consulting provider notified?: Yes 09/13/22 00:19 Consult Physician Routine Consulting Provider: Lauro Zavala Consult Reason/Comments: obstructing renal calculi Do you want consulting provider notified?: Yes, Notify in am 09/13/22 00:20 Consult Physician Routine Consulting Provider: Neal Pabon Consult Reason/Comments: proctitis Do you want consulting provider notified?: Yes, Notify in am Primary care physician: Jacinda Tillman DO Hospital Course: Final diagnosis Acute febrile illness possible urinary tract infection vs abdominal etiology. Influenza A B RSV and COVID-19 not detected. Sepsis secondary to above 5 mm right side obstructing calculus with cholelithiasis noted on CT, status post indwelling Zee catheter Lactic acidosis on admission, improved Diabetes type 2 insulin-dependent Paroxysmal atrial fibrillation, currently rate controlled Sacral pressure ulcers unstageable, present on admission UDS positive for opiates, methamphetamines, benzodiazepines and marijuana. COPD not in exacerbation Currently everyday smoker History of L2 S1 laminectomy and decompression with lower extremity weakness and central spinal cord stenosis. Patient is wheelchair-bound. DVT prophylaxis Full code Discharge disposition Patient is being discharged in a stable condition with guarded prognosis to [facility]. Patient will follow-up with Dr. Tillman in the outpatient setting upon discharge. Patient is to continue with oral Augmentin twice daily for the next 10 days and follow-up with urology and Gen. surgery outpatient. Patient is to continue with indwelling Zee catheter for 5-7 days and trial void outpatient and if retaining then will need urology outpatient follow-up. Patient to continue with local wound care per ID recommendations. Total time taken is greater than 35 minutes. Hospital course This is a 62-year-old male who was recently admitted with fevers with concerns for possible UTI and there was a 5 mm right obstructing calculus noted on imaging and neurology evaluated the patient recommending Zee catheter in addition to aiding wound healing decubitus ulcers and may trial void in the outpatient setting per urology recommendations. Patient's most recent urine cultures have been negative and will continue with indwelling Zee catheter along with oral Augmentin for 10 days to complete the course. Patient was also seen by general surgery recommending colonoscopy for the thickening of the gaston of the colon and patient is refusing. Patient is to follow-up with general surgery outpatient 1-2 weeks. Patient has been cleared by consultations for discharge and will be going back to [facility] today. Patient reports to feeling well and extremely anxious about wanting to get back. Please refer to consultation notes for further HPI. Currently no reports of chest pain, shortness of breath, or palpitations. Patient is afebrile. No reports of nausea or vomiting and patient is tolerating diet. Patient will be going to [place] today. Physical exam: Gen: This is a 62-year-old male who is awake, alert and oriented 3, thin built, well-nourished HEENT: Head is atraumatic, normocephalic. Pupils equal, round. Sclerae is anicteric. NECK: Supple. No JVD. No lymphadenopathy. No thyromegaly. LUNGS: Clear to auscultation. No wheezes or rhonchi. No intercostal retractions. HEART: Regular rate and rhythm. No murmur. ABDOMEN: Soft. Bowel sounds are present. No masses. No tenderness. EXTREMITIES: No pedal edema. No calf tenderness. NEUROLOGICAL: Patient is awake, alert and oriented x3. Cranial nerves 2 through 12 are grossly intact. Please refer to medication reconciliation sheet for a list of medications. The impression and plan of care has been dictated by Kaykay Polk, Nurse Practitioner as directed. Dr. Evelyn MD I have performed a history and examination and MDM of this patient, discussed the same with the dictator, and agree with the dictator's assessment and plan as written ,documented as a scribe. Based on total visit time, I have performed more than 50% of the visit. Patient Condition at Discharge: Stable Plan - Discharge Summary Discharge Rx Participant: No New Discharge Prescriptions: New Amoxic-Pot Clav 875-125Mg [Augmentin 875-125] 1 tab PO Q12HR 10 Days #20 tab Tamsulosin [Flomax] 0.4 mg PO PC-BRKFST cap Continue Folic Acid 1 mg PO DAILY tab Sennosides [Senokot] 8.6 mg PO DAILY tab Loperamide [Imodium] 2 mg PO BID PRN PRN Reason: Diarrhea INSULIN ASPART (NovoLOG) [NovoLOG (formulary)] See Protocol SQ ACHS Melatonin 5 mg PO HS@1999 Acetaminophen [Tylenol Arthritis] 650 mg PO Q6H PRN PRN Reason: Pain sitaGLIPtin [Januvia] 100 mg PO HS@1999 Amiodarone [Cordarone] 200 mg PO DAILY tab Furosemide [Lasix] 40 mg PO DAILY tab Calcium Carbonate [Tums] 1,000 mg PO TID PRN PRN Reason: Indigestion INSULIN ASPART (NovoLOG) [NovoLOG (formulary)] 5 unit SQ ACHS polyethylene glycoL 3350 [Miralax] 17 gm PO DAILY Multivitamins, Thera [Multivitamin (formulary)] 1 tab PO DAILY Insulin Detemir (Levemir) [Levemir] 10 unit SQ HS@1999 Metoprolol Tartrate [Lopressor] 25 mg PO BID Changed HYDROcodone/APAP 7.5-325MG [[place] 7.5-325] 1 tab PO Q6HR PRN #4 tab PRN Reason: Pain Discharge Medication List sitaGLIPtin [Januvia] 100 mg PO HS@199903/02/22 [History] Amiodarone [Cordarone] 200 mg PO DAILY tab 03/25/22 [Rx] Folic Acid 1 mg PO DAILY tab 03/25/22 [Rx] Furosemide [Lasix] 40 mg PO DAILY tab 03/25/22 [Rx] Sennosides [Senokot] 8.6 mg PO DAILY tab 03/25/22 [Rx] Acetaminophen [Tylenol Arthritis] 650 mg PO Q6H PRN 09/11/22 [History] Calcium Carbonate [Tums] 1,000 mg PO TID PRN 09/11/22 [History] INSULIN ASPART (NovoLOG) [NovoLOG (formulary)] 5 unit SQ ACHS 09/11/22 [History] INSULIN ASPART (NovoLOG) [NovoLOG (formulary)] See Protocol SQ ACHS 09/11/22 [History] Insulin Detemir (Levemir) [Levemir] 10 unit SQ HS@199909/11/22 [History] Loperamide [Imodium] 2 mg PO BID PRN 09/11/22 [History] Melatonin 5 mg PO HS@199909/11/22 [History] Metoprolol Tartrate [Lopressor] 25 mg PO BID 09/11/22 [History] Multivitamins, Thera [Multivitamin (formulary)] 1 tab PO DAILY 09/11/22 [History] polyethylene glycoL 3350 [Miralax] 17 gm PO DAILY 09/11/22 [History] Amoxic-Pot Clav 875-125Mg [Augmentin 875-125] 1 tab PO Q12HR 10 Days #20 tab 09/15/22 [Rx] HYDROcodone/APAP 7.5-325MG [[place] 7.5-325] 1 tab PO Q6HR PRN #4 tab 09/15/22 [Rx] Tamsulosin [Flomax] 0.4 mg PO PC-BRKFST cap 09/15/22 [Rx] Follow up Appointment(s)/Referral(s): Jacinda Tillman DO [Primary Care Provider] - 1-2 days Neal Pabon MD [STAFF PHYSICIAN] - 1 Week Patient Instructions/Handouts: Fever in Adults (GEN) Discharge Disposition: TRANSFER TO SNF/ECF
== END 2022-09-15 17:17 | DRG 720 ==
LOC: EC 20:43 → 5NMEDONC 09-11 00:02
PROVIDERS: ADMIT Internal Medicine; ATTEND Internal Medicine
DX: A41.9 Sepsis, unspecified organism (principal); D35.01 Benign neoplasm of right adrenal gland; D71 Functional disorders of polymorphonuclear neutrophils; E11.9 Type 2 diabetes mellitus without complications; Z79.4 Long term (current) use of insulin; F17.210 Nicotine dependence, cigarettes, uncomplicated; F41.9 Anxiety disorder, unspecified; E87.20 Acidosis, unspecified; K59.00 Constipation, unspecified; K80.20 Calculus of gallbladder without cholecystitis without obstruction; R32 Unspecified urinary incontinence; G83.9 Paralytic syndrome, unspecified; Z74.01 Bed confinement status; G89.29 Other chronic pain; I48.0 Paroxysmal atrial fibrillation; L89.153 Pressure ulcer of sacral region, stage 3; N20.0 Calculus of kidney; N30.91 Cystitis, unspecified with hematuria; Z79.84 Long term (current) use of oral hypoglycemic drugs; Z79.899 Other long term (current) drug therapy; Z87.442 Personal history of urinary calculi; Z99.3 Dependence on wheelchair; Z20.822 Contact with and (suspected) exposure to COVID-19
CPT/HCPCS: 36415; 70450; 71046; 74177; 80048; 80053; 80306; 80320; 81001; 83605; 83735; 84484; 85025; 85610; 85730; 87040; 87086; 87636; 93005; 96360; 96361; 99285

== ENCOUNTER 2022-12-08 15:20 | Inpatient (IN) | payer OTHER ==
[2022-12-08] MEDS ORDERED: MORPHINE SULFATE 4 MG/ML SYRINGE IVP STA (19:20)
[2022-12-08] MEDS ORDERED: SODIUM CHLORIDE 0.9% 1,000 ML IV STA (19:20)
--- NOTE | 2022-12-08 19:22 | ED ---
General Adult HPI - General Chief complaint: Recheck/Abnormal Lab/Rx Stated complaint: right foot sores-sent by home health nurse Time Seen by Provider: 12/08/22 19:07 Source: patient Mode of arrival: ambulatory Limitations: no limitations - History of Present Illness Initial comments: Patient is a 62-year-old male presenting to the emergency room with his son at the direction of his home care nurse with concerns of worsening bilateral heel ulcers left worse than right with foul odor and purulent drainage. According to the patient and son the patient has had the heel ulcers for quite some time. The patient has been wheelchair bound since a hospitalization in February 2022 and which he had severe metabolic encephalopathy, atrial fibrillation and DKA. He reports generalized weakness but states that his right side is weaker than his left. He has no documented history of stroke. In addition to his bilateral heel ulcers he also has an ulcer to his sacrum. His son reports that his blood sugars at home have been overall well controlled with readings typically in the 120s. Patient and and son deny any other complaints or concerns including any chest pain, shortness of breath, abdominal pain, nausea, vomiting, altered mental status, fevers or chills. In addition to his neurological and diabetic history as stated above his past medical of ADHD. - Related Data Home Medications Medication Instructions Recorded Confirmed sitaGLIPtin [Januvia] 100 mg PO HS@199903/02/22 12/08/22 Acetaminophen [Tylenol Arthritis] 650 mg PO Q6H PRN 09/11/22 12/08/22 Calcium Carbonate [Tums] 1,000 mg PO TID PRN 09/11/22 12/08/22 INSULIN ASPART (NovoLOG) [NovoLOG 5 unit SQ [facility] 09/11/22 12/08/22 (formulary)] INSULIN ASPART (NovoLOG) [NovoLOG See Protocol SQ [facility] 09/11/22 12/08/22 (formulary)] Insulin Detemir (Levemir) [Levemir] 10 unit SQ HS@199909/11/22 12/08/22 Loperamide [Imodium] 2 mg PO BID PRN 09/11/22 12/08/22 Melatonin 5 mg PO HS@199909/11/22 12/08/22 Multivitamins, Thera [Multivitamin 1 tab PO DAILY 09/11/22 12/08/22 (formulary)] polyethylene glycoL 3350 [Miralax] 17 gm PO DAILY 09/11/22 12/08/22 Previous Rx's Medication Instructions Recorded Amiodarone [Cordarone] 200 mg PO DAILY tab 03/25/22 Folic Acid 1 mg PO DAILY tab 03/25/22 Furosemide [Lasix] 40 mg PO DAILY tab 03/25/22 Sennosides [Senokot] 8.6 mg PO DAILY tab 03/25/22 Amoxic-Pot Clav 875-125Mg 1 tab PO Q12HR 10 Days #20 tab 12/17/22 [Augmentin 875-125] Gabapentin [Neurontin] 300 mg PO TID #6 cap 12/17/22 HYDROcodone/APAP 5-325MG [Toyah 1 tab PO Q4HR PRN 3 Days #6 tab 12/17/22 5-325] Metoprolol Tartrate [Lopressor] 12.5 mg PO BID #30 tab 12/17/22 Allergies Allergy/AdvReac Type Severity Reaction Status Date / Time No Known Allergies Allergy Verified 12/09/22 16:33 Review of Systems ROS Statement: Those systems with pertinent positive or pertinent negative responses have been documented in the HPI. ROS Other: All systems not noted in ROS Statement are negative. Past Medical History Past Medical History: Diabetes Mellitus Additional Past Medical History / Comment(s): pressure ulcers[Buttock,simone heals ,rt lateral foot] History of Any Multi-Drug Resistant Organisms: None Reported Past Surgical History: Orthopedic Surgery Additional Past Surgical History / Comment(s): back pain son states pt recently "slipped a disc" taking gabapentin. Past Psychological History: No Psychological Hx Reported Smoking Status: Current every day smoker Past Alcohol Use History: Rare Past Drug Use History: None Reported General Exam Limitations: physical limitation (wheelchair bound) General appearance: alert, in no apparent distress, cachectic Head exam: Present: atraumatic, normocephalic, normal inspection Eye exam: Present: normal appearance, PERRL. Absent: scleral icterus, conjunc tival injection, periorbital swelling, periorbital tenderness ENT exam: Present: mucous membranes dry Neck exam: Present: normal inspection, full ROM Respiratory exam: Present: normal lung sounds bilaterally. Absent: respiratory distress, wheezes, rales, rhonchi, stridor Cardiovascular Exam: Present: normal rhythm, tachycardia, normal heart sounds. Absent: systolic murmur, diastolic murmur, rubs, gallop, clicks GI/Abdominal exam: Present: soft, normal bowel sounds. Absent: distended, tenderness, guarding, rebound, rigid Extremities exam: Present: pedal edema (bilateral L > R), other (bilateral heel wounds as below ). Absent: full ROM Back exam: Present: other (Sacral decubitus with dressing intact wound not asse ssed; left foot drop ). Absent: muscle spasm, paraspinal tenderness, vertebral tenderness Neurological exam: Present: alert, oriented X3, abnormal gait (wheelchair bound gait not assessed) Psychiatric exam: Present: flat affect Skin exam: Present: warm, other (Bilateral heel pressure ulcer unstagable due to eschar foul odor with purlent drainage. Left foot with apparent achiles and calcaneus erosion) Course Vital Signs 12/08/22 12/08/22 15:52 20:11 Temperature 98.7 F Pulse Rate 111 H 108 H Respiratory 20 18 Rate Blood Pressure 101/64 137/67 O2 Sat by Pulse 100 100 Oximetry Procedures - Sepsis Sepsis Focused Exam #1 Time Sepsis Criteria Met: 19:29 (Leukocytosis and elevated lactic) Sepsis Focused Exam Date: 12/08/22 Sepsis Focused Exam Time: 19:09 Sepsis Focused Exam Complete: Yes Vital Signs & RN Notes Reviewed: Yes Capillary Refill: > 2 Seconds: Toes (Nailbed severely discovered unable to identify good capillary refill) Peripheral Pulses: Normal: Radial (R) Skin Color: Flushed Respiratory Exam: normal lung sounds Cardiovascular Exam: tachycardia Medical Decision Making - Medical Decision Making Was pt. sent in by a medical professional or institution (, PA, PIG BREEDER, urgent care, hospital, or long-term...) When possible be specific @ -Yes. Visiting home health care nurse sent to hospital Did you speak to anyone other than the patient for history (EMS, parent, family, police, friend...)? What history was obtained from this source @ -Yes, son at bedside discussed presenting symptoms along with a past medical history with son.. Did you review nursing and triage notes (agree or disagree)? Why? @ -Yes, I agree with triage nurse and nursing assessment Were old charts reviewed (outside hosp., previous admission, EMS record, old EKG, old radiological studies, urgent care reports/EKG's, long-term records)? Report findings @ -No old charts were reviewed Differential Diagnosis (chest pain, altered mental status, abdominal pain women, abdominal pain men, vaginal bleeding, weakness, fever, dyspnea, syncope, headache, dizziness, GI bleed, back pain, seizure, CVA, palpatations, mental health, musculoskeletal)? @ -Differential heel wound with foul drainage Cellulitis osteomyelitis, cellulitis, diabetic ulcer with delayed healing, pressure ulcer with delayed healing/infection.... This is not meant to be in all inclusive list EKG interpreted by me (3pts min.). @ -None done X-rays interpreted by me (1pt min.). @ -X-ray bilateral feet: Subcutaneous gas throughout the left foot, diffuse soft tissue swelling, poor visualization of osseous structure especially of the heel concerning for underlying osteomyelitis. No fracture. Right foot with hardware intact to the distal tibia mild soft tissue swelling at the aspect of the heel, no osseous erosion or fracture. CT interpreted by me (1pt min.). @ -None done U/S interpreted by me (1pt. min.). @ -None done What testing was considered but not performed or refused? (CT, X-rays, U/S, labs)? Why? @ -None What meds were considered but not given or refused? Why? @ -None Did you discuss the management of the patient with other professionals (professionals i.e. , PA, PIG BREEDER, lab, RT, psych nurse, health care social worker, four corner former machine operator, teacher, special service officer, returned case inspector)? Give summary @ -Yes, I spoke with Dr. Guillen regarding patient presentation and workup advising recommendation of admission for treatment of bilateral heel ulcers and concerning of osteomyelitis to left heel; he is accepting of admission and recommends contacting infectious disease doctor regarding antibiotic therapy and to consult vascular. I spoke with Dr. Eugene regarding patient's presentation and workup and primary care teams recommendation of contacting him for antibiotic therapy; he advised to start Unasyn 3 g every 6 hours along with vancomycin 1 g now and pharmacy to dose; blood cultures and wound cultures pending. Was smoking cessation discussed for >3mins.? @ -No Was critical care preformed (if so, how long)? @ -No Were there social determinants of health that impacted care today? How? (Homeles sness, low income, unemployed, alcoholism, drug addiction, transportation, low edu. Level, literacy, decrease access to med. care, snf, rehab)? @ -No Was there de-escalation of care discussed even if they declined (Discuss DNR or withdrawal of care, Hospice)? DNR status @ -No What co-morbidities impacted this encounter? (DM, HTN, Smoking, COPD, CAD, Cancer, CVA, ARF, Chemo, Hep., AIDS, mental health diagnosis, sleep apnea, morbid obesity)? @ -Diabetes, previous stroke causing immobility and bilateral pressure ulcers Was patient admitted / discharged? Hospital course, mention meds given and route, prescriptions, significant lab abnormalities, going to OR and other pertinent info. @ -62-year-old male presenting to the emergency room with the son at the direction of his home health care provider with concerns of worsening ulcers to his bilateral heels left worse than right. He also sensitivities ulcer to his coccyx. His son reports he has been in multiple since his stroke approximately 10 months. High concern for osteomyelitis to left heel. Foul odor and purulent drainage noted to all pressure ulcers. Currently afebrile. Mild tachycardia no kay will start IV fluid boluses per sepsis protocol will initiate 1 L now with a plan of total of 3 L IV fluids. Will give morphine for pain. Will defer antibiotics at this time. Will obtain x-rays of bilateral along with laboratory studies of CBC, CMP, blood cultures, lactic acid, and wound culture of left heel. X-ray of bilateral feet demonstrate bilaterally soft tissue swelling poorly visualized osseous structure to left heel concerning for osteomyelitis. Laboratory studies reveal anemia with hemoglobin 9.8 leukocytosis WBC 28.4 and thrombocytosis with platelet count of 736. Neutrophil count elevated 24.99. Coags normal electrolytes demonstrate elevated random glucose of 349 sodium level CXXVIII, chloride low at 94 creatinine low 0.48 liver enzymes normal. Lactic acid elevated at 3.0 and will be refluxed per sepsis protocol. Patient incontinent of bowel and bladder with sacral decubitus ulcer containing sloughed tissue. Will place Zee catheter to dedicate contamination of sacral decubitus ulcer. Above findings discussed with patient and son at bedside advising recommendation of admission for osteomyelitis with sepsis; patient and son are agreeable to this plan. Dr. Guillen contacted regarding recommendation of admission detailed discussion of this conversation along with conversation of infectious disease as above. Will place admission orders vascular. Will initiate IV antibiotic therapy along with maintenance fluids continued pain control and ACHS blood sugars with glucose control. Will admit patient to medical surgical unit in stable condition under Dr. Guillen with consults to infectious disease and vascular for further evaluation and treatment of osteomyelitis and sepsis. Undiagnosed new problem with uncertain prognosis? @ -No Drug Therapy requiring intensive monitoring for toxicity (Heparin, Nitro, In sulin, Cardizem)? @ -No Were any procedures done? @ -No Diagnosis/symptom? @ -Osteomyelitis left foot Acute, or Chronic, or Acute on Chronic? @ -Acute Uncomplicated (without systemic symptoms) or Complicated (systemic symptoms)? @ -Complicated Side effects of treatment? @ -No Exacerbation, Progression, or Severe Exacerbation? @ -No Poses a threat to life or bodily function? How? (Chest pain, [place], [place], pneumonia, PE, COPD, DKA, ARF, appy, cholecystitis, CVA, Diverticulitis, Homicidal, Suicidal, threat to staff... and all critical care pts) @ -Yes, at risk for worsening infection and tissue necrosis Diagnosis/symptom? @ -Decubitus ulcer bilateral heels and buttocks Acute, or Chronic, or Acute on Chronic? @ -Chronic Uncomplicated (without systemic symptoms) or Complicated (systemic symptoms)? @ -Complicated Side effects of treatment? @ -none Exacerbation, Progression, or Severe Exacerbation] @ -no Poses a threat to life or bodily function? @ -Yes, left heel with osteomyelitis at risk for worsening infection and necrosis. Diagnosis/symptom? @ -Sepsis Acute, or Chronic, or Acute on Chronic? @ -Acute Uncomplicated (without systemic symptoms) or Complicated (systemic symptoms)? @ -Complicated Side effects of treatment? @ -none Exacerbation, Progression, or Severe Exacerbation] @ -no Poses a threat to life or bodily function? @ -Yes, at risk for worsening sepsis and septic shock Case discussed with Dr. Adams. - Lab Data Result diagrams: 12/16/22 06:12 12/16/22 06:12 Lab Results 12/08/22 12/08/22 12/08/22 Range/Units 19:27 19:27 19:27 WBC 28.4 H (3.8-10.6) k/uL RBC 3.88 L (4.30-5.90) m/uL Hgb 9.8 L (13.0-17.5) gm/dL Hct 31.7 L (39.0-53.0) % MCV 81.7 (80.0-100.0) fL MCH 25.3 (25.0-35.0) pg MCHC 30.9 L (31.0-37.0) g/dL RDW 14.6 (11.5-15.5) % Plt Count 736 H (150-450) k/uL MPV 6.9 Neutrophils % (Manual) 88 % Lymphocytes % (Manual) 8 % Monocytes % (Manual) 3 % Metamyelocytes % 1 % Myelocytes % 1 % Neutrophils # (Manual) 24.99 H (1.3-7.7) k/uL Lymphocytes # (Manual) 2.27 (1.0-4.8) k/uL Monocytes # (Manual) 0.85 (0-1.0) k/uL Metamyelocytes # (Man) 0.28 H (0) k/uL Myelocytes # (Manual) 0.28 H (0) k/uL Nucleated RBCs 0 (0-0) /100 WBC Manual Slide Review Performed Toxic Granulation Present Large Platelets Present Polychromasia Present Hypochromasia Marked PT (9.0-12.0) sec INR (<1.2) Sodium 128 L (137-145) mmol/L Potassium 4.5 (3.5-5.1) mmol/L Chloride 94 L (98-107) mmol/L Carbon Dioxide 26 (22-30) mmol/L Anion Gap 8 mmol/L BUN 14 (9-20) mg/dL Creatinine 0.48 L (0.66-1.25) mg/dL Est GFR (CKD-EPI)AfAm >90 (>60 ml/min/1.73 sqM) Est GFR (CKD-EPI)NonAf >90 (>60 ml/min/1.73 sqM) Glucose 349 H (74-99) mg/dL POC Glucose (mg/dL) (70-110) mg/dL POC Glu [employer] Worker ID Estimated Ave Glu mg/dL mg/dL Hemoglobin A1c (<=6.0) % Lactic Ac Sepsis Rflx Plasma Lactic Acid Jermain 3.0 H* (0.7-2.0) mmol/L Calcium 8.5 (8.4-10.2) mg/dL Total Bilirubin 0.5 (0.2-1.3) mg/dL AST 18 (17-59) U/L ALT 19 (4-49) U/L Alkaline Phosphatase 101 (38-126) U/L Total Protein 7.6 (6.3-8.2) g/dL Albumin 2.8 L (3.5-5.0) g/dL 12/08/22 12/08/22 12/08/22 Range/Units 19:27 20:13 22:53 WBC (3.8-10.6) k/uL RBC (4.30-5.90) m/uL Hgb (13.0-17.5) gm/dL Hct (39.0-53.0) % MCV (80.0-100.0) fL MCH (25.0-35.0) pg MCHC (31.0-37.0) g/dL RDW (11.5-15.5) % Plt Count (150-450) k/uL MPV Neutrophils % (Manual) % Lymphocytes % (Manual) % Monocytes % (Manual) % Metamyelocytes % % Myelocytes % % Neutrophils # (Manual) (1.3-7.7) k/uL Lymphocytes # (Manual) (1.0-4.8) k/uL Monocytes # (Manual) (0-1.0) k/uL Metamyelocytes # (Man) (0) k/uL Myelocytes # (Manual) (0) k/uL Nucleated RBCs (0-0) /100 WBC Manual Slide Review Toxic Granulation Large Platelets Polychromasia Hypochromasia PT 11.3 (9.0-12.0) sec INR 1.1 (<1.2) Sodium (137-145) mmol/L Potassium (3.5-5.1) mmol/L Chloride (98-107) mmol/L Carbon Dioxide (22-30) mmol/L Anion Gap mmol/L BUN (9-20) mg/dL Creatinine (0.66-1.25) mg/dL Est GFR (CKD-EPI)AfAm (>60 ml/min/1.73 sqM) Est GFR (CKD-EPI)NonAf (>60 ml/min/1.73 sqM) Glucose (74-99) mg/dL POC Glucose (mg/dL) (70-110) mg/dL POC Glu [employer] Worker ID Estimated [address] Glu mg/dL mg/dL Hemoglobin A1c (<=6.0) % Lactic Ac Sepsis Rflx Y Plasma Lactic Acid Jermain 2.1 H* (0.7-2.0) mmol/L Calcium (8.4-10.2) mg/dL Total Bilirubin (0.2-1.3) mg/dL AST (17-59) U/L ALT (4-49) U/L Alkaline Phosphatase (38-126) U/L Total Protein (6.3-8.2) g/dL Albumin (3.5-5.0) g/dL 12/08/22 12/08/22 12/09/22 Range/Units 23:40 23:42 04:20 WBC (3.8-10.6) k/uL RBC (4.30-5.90) m/uL Hgb (13.0-17.5) gm/dL Hct (39.0-53.0) % MCV (80.0-100.0) fL MCH (25.0-35.0) pg MCHC (31.0-37.0) g/dL RDW (11.5-15.5) % Plt Count (150-450) k/uL MPV Neutrophils % (Manual) % Lymphocytes % (Manual) % Monocytes % (Manual) % Metamyelocytes % % Myelocytes % % Neutrophils # (Manual) (1.3-7.7) k/uL Lymphocytes # (Manual) (1.0-4.8) k/uL Monocytes # (Manual) (0-1.0) k/uL Metamyelocytes # (Man) (0) k/uL Myelocytes # (Manual) (0) k/uL Nucleated RBCs (0-0) /100 WBC Manual Slide Review Toxic Granulation Large Platelets Polychromasia Hypochromasia PT (9.0-12.0) sec INR (<1.2) Sodium (137-145) mmol/L Potassium (3.5-5.1) mmol/L Chloride (98-107) mmol/L Carbon Dioxide (22-30) mmol/L Anion Gap mmol/L BUN (9-20) mg/dL Creatinine (0.66-1.25) mg/dL Est GFR (CKD-EPI)AfAm (>60 ml/min/1.73 sqM) Est GFR (CKD-EPI)NonAf (>60 ml/min/1.73 sqM) Glucose (74-99) mg/dL POC Glucose (mg/dL) 239 H (70-110) mg/dL POC Glu [employer] Worker ID Anthony Solis [address] Glu mg/dL 214 mg/dL Hemoglobin A1c 9.1 H (<=6.0) % Lactic Ac Sepsis Rflx Y Plasma Lactic Acid Jermain (0.7-2.0) mmol/L Calcium (8.4-10.2) mg/dL Total Bilirubin (0.2-1.3) mg/dL AST (17-59) U/L ALT (4-49) U/L Alkaline Phosphatase (38-126) U/L Total Protein (6.3-8.2) g/dL Albumin (3.5-5.0) g/dL 12/09/22 12/09/22 Range/Units 04:20 05:34 WBC (3.8-10.6) k/uL RBC (4.30-5.90) m/uL Hgb (13.0-17.5) gm/dL Hct (39.0-53.0) % MCV (80.0-100.0) fL MCH (25.0-35.0) pg MCHC (31.0-37.0) g/dL RDW (11.5-15.5) % Plt Count (150-450) k/uL MPV Neutrophils % (Manual) % Lymphocytes % (Manual) % Monocytes % (Manual) % Metamyelocytes % % Myelocytes % % Neutrophils # (Manual) (1.3-7.7) k/uL Lymphocytes # (Manual) (1.0-4.8) k/uL Monocytes # (Manual) (0-1.0) k/uL Metamyelocytes # (Man) (0) k/uL Myelocytes # (Manual) (0) k/uL Nucleated RBCs (0-0) /100 WBC Manual Slide Review Toxic Granulation Large Platelets Polychromasia Hypochromasia PT (9.0-12.0) sec INR (<1.2) Sodium (137-145) mmol/L Potassium (3.5-5.1) mmol/L Chloride (98-107) mmol/L Carbon Dioxide (22-30) mmol/L Anion Gap mmol/L BUN (9-20) mg/dL Creatinine (0.66-1.25) mg/dL Est GFR (CKD-EPI)AfAm (>60 ml/min/1.73 sqM) Est GFR (CKD-EPI)NonAf (>60 ml/min/1.73 sqM) Glucose (74-99) mg/dL POC Glucose (mg/dL) 250 H (70-110) mg/dL POC Glu [employer] Worker ID Anthony Solis [address] Glu mg/dL mg/dL Hemoglobin A1c (<=6.0) % Lactic Ac Sepsis Rflx Plasma Lactic Acid Jermain 1.2 (0.7-2.0) mmol/L Calcium (8.4-10.2) mg/dL Total Bilirubin (0.2-1.3) mg/dL AST (17-59) U/L ALT (4-49) U/L Alkaline Phosphatase (38-126) U/L Total Protein (6.3-8.2) g/dL Albumin (3.5-5.0) g/dL Disposition Clinical Impression: Acute osteomyelitis of ankle or foot Disposition: ADMITTED IP TO THIS [facility] Condition: Stable Time of Disposition: 20:48
[2022-12-08 19:51] LABS: HCT 31.7 % (39.0-53.0); HGB 9.8 gm/dL (13.0-17.5); Hypochromasia Marked; MCH 25.3 pg (25.0-35.0); MCHC 30.9 g/dL (31.0-37.0); MCV 81.7 fL (80.0-100.0); Mean Platelet Volume 6.9; Platelet Count 736 k/uL (150-450); RBC 3.88 m/uL (4.30-5.90); RDW 14.6 % (11.5-15.5)
[2022-12-08 20:03] LABS: INR 1.1 (<1.2); Prothrombin Time 11.3 sec (9.0-12.0)
[2022-12-08 20:04] LABS: WBC 28.4 k/uL (3.8-10.6)
[2022-12-08 20:06] LABS: ALT 19 U/L (4-49); AST 18 U/L (17-59); African American GFR (CKD) >90 (>60 ml/min/1.73 sqM); Albumin 2.8 g/dL (3.5-5.0); Alkaline Phosphatase 101 U/L (38-126); Anion Gap 8 mmol/L; Blood Urea Nitrogen 14 mg/dL (9-20); Calcium 8.5 mg/dL (8.4-10.2); Carbon Dioxide 26 mmol/L (22-30); Chloride 94 mmol/L (98-107); Glucose 349 mg/dL (74-99); Non-African American GFR(CKD) >90 (>60 ml/min/1.73 sqM); Potassium 4.5 mmol/L (3.5-5.1); Sodium 128 mmol/L (137-145); Total Bilirubin 0.5 mg/dL (0.2-1.3); Total Protein 7.6 g/dL (6.3-8.2)
[2022-12-08] MEDS ORDERED: SODIUM CHLORIDE 0.9% 2,000 ML IV STA (20:23)
--- NOTE | 2022-12-08 20:45 | XR ---
EXAMINATION TYPE: XR foot limited bilateral DATE OF EXAM: 12/08/2022 8:20 PM INDICATION: Patient age:Male; 62 years old; Reason for study: heel wounds; COMPARISON: Left TECHNIQUE: The left foot was evaluated in frontal and oblique in the right foot was evaluated in fron shea and lateral. FINDINGS/IMPRESSION: Left: There is subcutaneous gas throughout the left foot particularly the midfoot and hindfoot. There is swelling throughout the foot. Osseous structures are somewhat poorly evaluated given dressing out side the patient. Suspected underlying osteomyelitis is likely present. No definitive acute fracture visualized. Right: Post fixation changes to the distal right tibia, hardware appears intact. There is atheroscler osis of the arterial vasculature. No evidence of osseous erosion or acute fracture. Mild soft tissue swelling involving the heel.
[2022-12-08 20:57] LABS: Lymphocytes # (M) 2.27 k/uL (1.0-4.8); Metamyelocytes # (M) 0.28 k/uL (0); Metamyelocytes % 1 %; Monocytes # (M) 0.85 k/uL (0-1.0); Myelocytes # (M) 0.28 k/uL (0); Myelocytes % 1 %; Neutrophils # (M) 24.99 k/uL (1.3-7.7); Neutrophils % (M) 88 %; Nucleated Red Blood Cells 0 /100 WBC (0-0); Total Cells Counted 200; Toxic Granulation Present
[2022-12-08 20:58] LABS: Large Platelets Present; Polychromasia Present
[2022-12-08] MEDS ORDERED: VANCOMYCIN IV PER PHARMACY 1 EACH MISC MISCELLANE PRN (21:30)
[2022-12-08] MEDS ORDERED: ACETAMINOPHEN TAB 325 MG TAB PO PRN (21:31)
[2022-12-08] MEDS ORDERED: NALOXONE 0.4 MG/ML 1 ML VIAL IV PRN (21:31)
[2022-12-08] MEDS ORDERED: DEXTROSE 50% SYRINGE 50 ML IVP PRN ×2 (21:34)
[2022-12-08] MEDS ORDERED: VANCOMYCIN 1,250 MG in SODIUM CHLORIDE 0.9% 250 ML IVPB ONE (22:00)
[2022-12-08] MEDS: AMPICILLIN-SULBACTAM 3 GM in SODIUM CHLORIDE 0.9% 100 ML IVPB SCH (22:56)
[2022-12-08 23:42] LABS: Glucose,Whole Blood 239 mg/dL (70-110)
[2022-12-09] MEDS: INSULIN ASPART (NovoLOG) 100 UNIT/ML VIAL SQ SCH ×5 (00:13→20:34)
[2022-12-09] MEDS: MORPHINE SULFATE 4 MG/ML SYRINGE IV PRN (00:14)
[2022-12-09] MEDS: SODIUM CHLORIDE 0.9% 1,000 ML IV SCH ×2 (00:15→20:43)
--- NOTE | 2022-12-09 01:48 | XR ---
EXAM: XR Sacrum and Coccyx, 2 or more Views CLINICAL HISTORY: XR Reason: Decubitus ulcer TECHNIQUE: Frontal and lateral views of the sacrum and coccyx. COMPARISON: No relevant prior studies available. FINDINGS: Sacrum/coccyx: The sacral arcuate lines appear smooth. No sacral wing fracture is identified. Vertebrae: Visualized lumbar vertebrae are unremarkable. Soft tissues: There are appears to be a sacral decubitus ulcer measuring roughly 3 cm in diameter and 1 cm in depth extending down to the sacrococcygeal junction. Appears to be focal osteolysis at the sacrococcygeal junction suggesting osteomyelitis which could be either acute or chronic. Gastrointestinal tract: There is a large amount of stool in the rectum measuring 7.3 cm suggesting mild constipation. IMPRESSION: There are appears to be a sacral decubitus ulcer measuring roughly 3 cm in diameter and 1 cm in depth extending down to the sacrococcygeal junction. There appears to be focal osteolysis at the sacrococcygeal junction suggesting osteomyelitis which could be either acute or chronic.
[2022-12-09] MEDS: AMPICILLIN-SULBACTAM 3 GM in SODIUM CHLORIDE 0.9% 100 ML IVPB SCH ×4 (05:19→22:50)
[2022-12-09 05:35] LABS: Glucose,Whole Blood 250 mg/dL (70-110)
[2022-12-09] MEDS ORDERED: NON FORMULARY DRUG (Acetaminophen [Tylenol Arthritis] 650 MG Tablet) PO PRN (10:56)
[2022-12-09] MEDS ORDERED: CALCIUM CARBONATE 500 MG CHEWABLE PO PRN (10:56)
[2022-12-09] MEDS ORDERED: DEXTROSE 50% SYRINGE 50 ML IVP PRN ×2 (10:58)
[2022-12-09 11:28] LABS: Glucose,Whole Blood 377 mg/dL (70-110)
[2022-12-09] MEDS: polyethylene glycoL 3350 17 GM POWD.PACK PO SCH (11:34)
[2022-12-09] MEDS: MULTIVITAMINS, THERA 1 EACH TAB PO SCH (11:34)
[2022-12-09] MEDS: FOLIC ACID 1 MG TAB PO SCH (11:34)
[2022-12-09] MEDS: GABAPENTIN 300 MG CAP PO SCH ×3 (11:42→20:36)
[2022-12-09] MEDS: METOPROLOL TARTRATE 12.5 MG TAB PO SCH ×2 (11:42→20:42)
[2022-12-09] MEDS: AMIODARONE 200 MG TAB PO SCH (11:42)
[2022-12-09] MEDS: VANCOMYCIN 1,250 MG in SODIUM CHLORIDE 0.9% 250 ML IVPB SCH (11:43)
--- NOTE | 2022-12-09 11:45 | P.GSCN ---
History of Present Illness Consult date: 12/09/22 History of present illness: Patient is a 62-year-old male with a past medical history including diabetes, previous stroke, immobility, multiple pressure ulcerations, tobacco abuse who presents to the ER for evaluation of multiple wounds after being consented by home health care nursing. Patient states his nose worsening smell to his wounds has been discoloration of the wounds. The patient does not walk and has not done so for about the past year. He does stand transfer reportedly. He is seen in the room with his son Past Medical History Past Medical History: Diabetes Mellitus Additional Past Medical History / Comment(s): pressure ulcers[Buttock,simone heals ,rt lateral foot] History of Any Multi-Drug Resistant Organisms: None Reported Past Surgical History: Orthopedic Surgery Additional Past Surgical History / Comment(s): back pain son states pt recently "slipped a disc" taking gabapentin. Past Psychological History: No Psychological Hx Reported Smoking Status: Current every day smoker Past Alcohol Use History: Rare Past Drug Use History: None Reported Medications and Allergies Home Medications Medication Instructions Recorded Confirmed Type sitaGLIPtin [Januvia] 100 mg PO HS@199903/02/22 12/08/22 History Amiodarone [Cordarone] 200 mg PO DAILY tab 03/25/22 12/08/22 Rx Folic Acid 1 mg PO DAILY tab 03/25/22 12/08/22 Rx Furosemide [Lasix] 40 mg PO DAILY tab 03/25/22 12/08/22 Rx Sennosides [Senokot] 8.6 mg PO DAILY tab 03/25/22 12/08/22 Rx Acetaminophen [Tylenol Arthritis] 650 mg PO Q6H PRN 09/11/22 12/08/22 History Calcium Carbonate [Tums] 1,000 mg PO TID PRN 09/11/22 12/08/22 History INSULIN ASPART (NovoLOG) [NovoLOG 5 unit SQ ACHS 09/11/22 12/08/22 History (formulary)] INSULIN ASPART (NovoLOG) [NovoLOG See Protocol SQ [facility] 09/11/22 12/08/22 History (formulary)] Insulin Detemir (Levemir) [Levemir] 10 unit SQ HS@199909/11/22 12/08/22 History Loperamide [Imodium] 2 mg PO BID PRN 09/11/22 12/08/22 History Melatonin 5 mg PO HS@199909/11/22 12/08/22 History Metoprolol Tartrate [Lopressor] 25 mg PO BID 09/11/22 12/08/22 History Multivitamins, Thera [Multivitamin 1 tab PO DAILY 09/11/22 12/08/22 History (formulary)] polyethylene glycoL 3350 [Miralax] 17 gm PO DAILY 09/11/22 12/08/22 History Gabapentin 300 mg PO TID 12/08/22 12/08/22 History Allergies Allergy/AdvReac Type Severity Reaction Status Date / Time No Known Allergies Allergy Verified 12/08/22 22:00 Surgical - Exam Vital Signs Temp Pulse Resp BP Pulse Ox 98.7 F 111 H 20 101/64 100 12/08/22 15:52 12/08/22 15:52 12/08/22 15:52 12/08/22 15:52 12/08/22 15:52 Gen is a pleasant cooperative male, appearing older than stated age. Chronically ill-appearing. Muscle wasting. Tobacco stained fingers and viewed. Heart appears regular, tachycardic. Lungs are diminished but clear. Abdomen is scaphoid, soft. Extremity show no clubbing. There is a healed necrotic base on the right heel. There is a significant wound to the left heel and lateral foot with significant necrotic tissue,. Drainage, bogginess and crepitus of the bottom of the foot. Results Labs reviewed, elevated WBC. Mildly elevated lactic acid on admission, now improved. X-rays are reviewed. Significant edema and gas through the left foot. Evidence of osteomyelitis. - Labs 12/08/22 19:27 12/08/22 19:27 Abnormal Lab Results - Last 24 Hours (Table) 12/08/22 12/08/22 12/08/22 Range/Units 19:27 19:27 19:27 WBC 28.4 H (3.8-10.6) k/uL RBC 3.88 L (4.30-5.90) m/uL Hgb 9.8 L (13.0-17.5) gm/dL Hct 31.7 L (39.0-53.0) % MCHC 30.9 L (31.0-37.0) g/dL Plt Count 736 H (150-450) k/uL Neutrophils # (Manual) 24.99 H (1.3-7.7) k/uL Metamyelocytes # (Man) 0.28 H (0) k/uL Myelocytes # (Manual) 0.28 H (0) k/uL Sodium 128 L (137-145) mmol/L Chloride 94 L (98-107) mmol/L Creatinine 0.48 L (0.66-1.25) mg/dL Glucose 349 H (74-99) mg/dL POC Glucose (mg/dL) (70-110) mg/dL Hemoglobin A1c (<=6.0) % Plasma Lactic Acid Jermain 3.0 H* (0.7-2.0) mmol/L Albumin 2.8 L (3.5-5.0) g/dL 12/08/22 12/08/22 12/09/22 Range/Units 22:53 23:40 04:20 WBC (3.8-10.6) k/uL RBC (4.30-5.90) m/uL Hgb (13.0-17.5) gm/dL Hct (39.0-53.0) % MCHC (31.0-37.0) g/dL Plt Count (150-450) k/uL Neutrophils # (Manual) (1.3-7.7) k/uL Metamyelocytes # (Man) (0) k/uL Myelocytes # (Manual) (0) k/uL Sodium (137-145) mmol/L Chloride (98-107) mmol/L Creatinine (0.66-1.25) mg/dL Glucose (74-99) mg/dL POC Glucose (mg/dL) 239 H (70-110) mg/dL Hemoglobin A1c 9.1 H (<=6.0) % Plasma Lactic Acid Jermain 2.1 H* (0.7-2.0) mmol/L Albumin (3.5-5.0) g/dL 12/09/22 12/09/22 Range/Units 05:34 11:27 WBC (3.8-10.6) k/uL RBC (4.30-5.90) m/uL Hgb (13.0-17.5) gm/dL Hct (39.0-53.0) % MCHC (31.0-37.0) g/dL Plt Count (150-450) k/uL Neutrophils # (Manual) (1.3-7.7) k/uL Metamyelocytes # (Man) (0) k/uL Myelocytes # (Manual) (0) k/uL Sodium (137-145) mmol/L Chloride (98-107) mmol/L Creatinine (0.66-1.25) mg/dL Glucose (74-99) mg/dL POC Glucose (mg/dL) 250 H 377 H (70-110) mg/dL Hemoglobin A1c (<=6.0) % Plasma Lactic Acid Jermain (0.7-2.0) mmol/L Albumin (3.5-5.0) g/dL Microbiology - Last 24 Hours (Table) 12/08/22 19:27 Gram Stain - Preliminary Foot - Left Diabetes panel 12/08/22 12/09/22 Range/Units 19:27 04:20 Sodium 128 L (137-145) mmol/L Potassium 4.5 (3.5-5.1) mmol/L Chloride 94 L (98-107) mmol/L Carbon Dioxide 26 (22-30) mmol/L BUN 14 (9-20) mg/dL Creatinine 0.48 L (0.66-1.25) mg/dL Glucose 349 H (74-99) mg/dL Hemoglobin A1c 9.1 H (<=6.0) % Calcium 8.5 (8.4-10.2) mg/dL AST 18 (17-59) U/L ALT 19 (4-49) U/L Alkaline Phosphatase 101 (38-126) U/L Total Protein 7.6 (6.3-8.2) g/dL Albumin 2.8 L (3.5-5.0) g/dL Calcium panel 12/08/22 Range/Units 19:27 Calcium 8.5 (8.4-10.2) mg/dL Albumin 2.8 L (3.5-5.0) g/dL Pituitary panel 12/08/22 Range/Units 19:27 Sodium 128 L (137-145) mmol/L Potassium 4.5 (3.5-5.1) mmol/L Chloride 94 L (98-107) mmol/L Carbon Dioxide 26 (22-30) mmol/L BUN 14 (9-20) mg/dL Creatinine 0.48 L (0.66-1.25) mg/dL Glucose 349 H (74-99) mg/dL Calcium 8.5 (8.4-10.2) mg/dL Adrenal panel 12/08/22 Range/Units 19:27 Sodium 128 L (137-145) mmol/L Potassium 4.5 (3.5-5.1) mmol/L Chloride 94 L (98-107) mmol/L Carbon Dioxide 26 (22-30) mmol/L BUN 14 (9-20) mg/dL Creatinine 0.48 L (0.66-1.25) mg/dL Glucose 349 H (74-99) mg/dL Calcium 8.5 (8.4-10.2) mg/dL Total Bilirubin 0.5 (0.2-1.3) mg/dL AST 18 (17-59) U/L ALT 19 (4-49) U/L Alkaline Phosphatase 101 (38-126) U/L Total Protein 7.6 (6.3-8.2) g/dL Albumin 2.8 L (3.5-5.0) g/dL Assessment and Plan Assessment: Multiple pressure wounds, bilateral heel and sacral. Wet gangrene of left heel with gas found on imaging Bedbound History of stroke Tobacco abuse Diabetes Plan: Long discussion was had with the patient and his son. Given the severity of the infection, the amount of tissue that was debrided as well as the bone infect ion, first recommendation is for guillotine amputation at this time in order to control the source of infection. We discussed going forward he would need further completion amputation either below or above-knee pending his vascular workup as well as decisions regarding his possible mobilization in the future. We discussed with the patient is bedbound he likely would be best served with a above-knee amputation. He does bring up The question of possibly ambulating and we discussed it would be significantly difficult but not impossible, but is more dependent overall deconditioning. We also discussed other options including no intervention and palliative care. They are not interested in that route at this time and like to continue all chances for improvement. We discussed we will plan to go forward with this cutaneous amputation once cleared by anesthesia as the patient did eat breakfast as he was not made nothing by mouth nor was a consult called out. Would recommend general surgery evaluation for sacral wound and there discussion regarding possible operative debridement. There is some concern of stool contamination to the sacral wound but not reportedly routinely. Would defer to their expertise in this regard.
[2022-12-09] MEDS ORDERED: LACTULOSE 20 GM/30 ML CUP PO PRN (12:11)
[2022-12-09] MEDS ORDERED: ONDANSETRON 4 MG/2 ML VIAL IVP PRN (12:11)
[2022-12-09] MEDS ORDERED: TEMAZEPAM 15 MG CAP PO PRN (12:11)
[2022-12-09] MEDS ORDERED: LORazepam 0.5 MG TAB PO PRN (12:11)
[2022-12-09] MEDS: NICOTINE 7MG/24HR PATCH TRANSDERM SCH (14:06)
[2022-12-09 14:24] VITALS: BMI 19.8
[2022-12-09] MEDS ORDERED: LACTATED RINGERS 1,000 ML IV ONE ×2 (16:45→18:32)
[2022-12-09 16:52] LABS: Glucose,Whole Blood 194 mg/dL (70-110)
[2022-12-09] MEDS ORDERED: ONDANSETRON 4 MG/2 ML VIAL IVP ONE (16:54)
[2022-12-09] MEDS ORDERED: MIDAZOLAM 2 MG/2 ML VIAL ONE (17:08)
[2022-12-09] MEDS ORDERED: fentaNYL (PF) 50 MCG/ML 2 ML AMP ONE (17:08)
[2022-12-09] MEDS ORDERED: KETAMINE 10 MG/ML 20 ML VIAL ONE (17:08)
--- NOTE | 2022-12-09 18:01 | P.OP ---
Date of Procedure: 12/09/22 Description of Procedure: Preoperative diagnosis: Osteomyelitis with gas gangrene of left foot and heel wound Right heel wound Postoperative diagnosis: Same Procedure: Guillotine below knee amputation left lower extremity Sharp Excisional debridement right heel 7 x 6 x 0.2 cm to subcutaneous tissue Surgeon: Barbara Zee D.O. EBL: 10 mL IV fluids: See records Urine output: See records Drains: None Complications: None immediately apparent Condition: Stable Operative indication and findings: Patient is a 62-year-old male who is essentially bedbound bilateral heel wounds who has gas gangrene of his left heel osteomyelitis. Due to the severity of his infection discussion was had and recommendations for guillotine amputation as well as debridement of his right heel were discussed. They seemingly understood and went to proceed. Procedure in detail: Patient was taken the operative suite and placed in supine position. Spinal anesthesia was performed along with monitored sedation. The bilateral lower extremity prepped and draped in usual sterile fashion. Procedure timeout was performed, all parties were in agreement. A scalpel was utilized and the eschar of the right heel was debrided. It was excised down to the level of the subcutaneous tissue with measurements as above. There was some degree of poor appearing subcutaneous fat which was debrided. No purulent drainage. Attention was then turned towards the left lower extremity, circular incision was made at the level of the ankle through the skin and soft tissue. A Gigli saw was then utilized for guillotine amputation and the foot was removed. Hemostasis was controlled with electrocautery. The areas were irrigated. Dres sings including Adaptic, gauze and Kerlix rolls were placed. The patient was allowed awaken from anesthesia and transferred to recovery having tolerated procedure well
[2022-12-09 18:05] LABS: Glucose,Whole Blood 191 mg/dL (70-110)
[2022-12-09] MEDS ORDERED: IPRATROPIUM-ALBUTEROL 3 ML NEB INHALATION PRN (19:58)
--- NOTE | 2022-12-09 20:13 | P.HPIM ---
History of Present Illness H&P Date: 12/09/22 Chief Complaint: Multiple wounds This is a 62-year-old patient, follows with Dr. Mendez. Chronic stable medical conditions include ADHD, herniated disc lower back, smoker. Patient presents with worsening wound in the sacrum, both the heels. Some pain is present. Having fevers at home. Decreased appetite. Bowels are okay. Does smoke a few cigarettes a day. Has a home care nurse comes on every 3 days. Because of worsening wound patient is brought to the ER. Son at the bedside. Patient non-ambulatory. Review of systems: GEN.: Tired, decreased appetite EYES: None HEENT: None NECK: None RESPIRATORY: None CARDIOVASCULAR: None GASTROINTESTINAL: None GENITOURINARY: None MUSCULOSKELETAL: As above LYMPHATICS: None HEMATOLOGICAL: None PSYCHIATRY: None NEUROLOGICAL: Weakness of lower extremity. Past medical history to include: Diabetes, possible ADHD, chronic low back pain, herniated disc, atrial fibrillation. COPD. Social history: Son lives with the patient. 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 Smokes about a pack a day, now down to a few cigarettes a day. Alcohol occasionally. Physical examination: VITAL SIGNS: 100.3, 111, 20, 101/64, 100% room air GENERAL: BMI 19.8, laying in bed tired. Loss of muscle mass. She also subcutaneous fat. Prominent bones.. EYES: Pupils equal. Conjunctiva normal. HEENT: External appearance of nose and ears normal, oral cavity grossly normal. NECK: JVD not raised; masses not palpable. HEART: First and second heart sounds are normal; no edema. LUNGS: Respiratory rate normal; decreased breath sounds. ABDOMEN: Soft, nontender, liver spleen not palpable, no masses palpable. PSYCH: [Alert and oriented x3; mood and affect tired l. MUSCULOSKELETAL: Muscle muscle mass. Prominent bones. Wounds at both the heels and sacrum. NEUROLOGICAL: Cranial nerves grossly intact; no facial asymmetry, weakness lower extremity. With bilateral foot drop. LYMPHATICS: No lymph nodes palpable in the axilla and neck INVESTIGATIONS, reviewed in the clinical context: White count 28.4 hemoglobin 9.8 platelets 736 sodium 128 potassium 4.5 BUN 14 creatinine 0.48 Lactic acid 3 albumin 2.8 Sacral and coccyx x-ray: Significant degree was ulcer 3 cm x 1 cm in depth. Focal ostial lyses at the sacrococcygeal junction. Suggestive of osteomyelitis. Assessment and plan: -Extensive decubitus ulcers including the right heel, left heel, sacrum/coccyx. At possible acute osteomyelitis. Surrounding cellulitis. Vascular surgery and ID consulted -Gangrene of the left foot with acute osteomyelitis Vascular surgeon ID consulted. -Acute osteomyelitis left heel. IV Unasyn. IV vancomycin. -Paroxysmal atrial fibrillation: sinus rhythm Amiodarone. Lopressor. -Diabetes mellitus type 2, chronically on insulin Follow Accu-Cheks. Januvia -COPD in a current smoker Bronchodilators as needed -Chronic nicotine dependence, cigarette smoker Nicotine patch -Chronic medical debility. Non-ambulatory -Severe protein calorie malnutrition. At supplements -Full code Past Medical History Past Medical History: Diabetes Mellitus Additional Past Medical History / Comment(s): pressure ulcers[Buttock,simone heals ,rt lateral foot] History of Any Multi-Drug Resistant Organisms: None Reported Past Surgical History: Orthopedic Surgery Additional Past Surgical History / Comment(s): back pain son states pt recently "slipped a disc" taking gabapentin. Past Psychological History: No Psychological Hx Reported Smoking Status: Current every day smoker Past Alcohol Use History: Rare Past Drug Use History: None Reported Medications and Allergies Home Medications Medication Instructions Recorded Confirmed Type sitaGLIPtin [Januvia] 100 mg PO HS@199903/02/22 12/08/22 History Amiodarone [Cordarone] 200 mg PO DAILY tab 03/25/22 12/08/22 Rx Folic Acid 1 mg PO DAILY tab 03/25/22 12/08/22 Rx Furosemide [Lasix] 40 mg PO DAILY tab 03/25/22 12/08/22 Rx Sennosides [Senokot] 8.6 mg PO DAILY tab 03/25/22 12/08/22 Rx Acetaminophen [Tylenol Arthritis] 650 mg PO Q6H PRN 09/11/22 12/08/22 History Calcium Carbonate [Tums] 1,000 mg PO TID PRN 09/11/22 12/08/22 History INSULIN ASPART (NovoLOG) [NovoLOG 5 unit SQ ACHS 09/11/22 12/08/22 History (formulary)] INSULIN ASPART (NovoLOG) [NovoLOG See Protocol SQ ACHS 09/11/22 12/08/22 History (formulary)] Insulin Detemir (Levemir) [Levemir] 10 unit SQ HS@199909/11/22 12/08/22 History Loperamide [Imodium] 2 mg PO BID PRN 09/11/22 12/08/22 History Melatonin 5 mg PO HS@199909/11/22 12/08/22 History Metoprolol Tartrate [Lopressor] 25 mg PO BID 09/11/22 12/08/22 History Multivitamins, Thera [Multivitamin 1 tab PO DAILY 09/11/22 12/08/22 History (formulary)] polyethylene glycoL 3350 [Miralax] 17 gm PO DAILY 09/11/22 12/08/22 History Gabapentin 300 mg PO TID 12/08/22 12/08/22 History Allergies Allergy/AdvReac Type Severity Reaction Status Date / Time No Known Allergies Allergy Verified 12/09/22 16:33 Physical Exam Vitals: Vital Signs Temp Pulse Pulse Resp BP BP Pulse Ox 12/09/22 07:32 100.3 F H 97 17 98/60 98 12/08/22 23:51 99.3 F 99 20 114/71 100 12/08/22 20:11 108 H 18 137/67 100 12/08/22 15:52 98.7 F 111 H 20 101/64 100 Intake and Output 12/08/22 12/09/22 12/09/22 22:59 06:59 14:59 Output Total 500 Balance -500 Output: Urine 500 Uretheral (Zee) 100 Other: Weight 60.781 kg 60.781 kg Results CBC & Chem 7: 12/08/22 19:27 12/08/22 19:27 Labs: Abnormal Lab Results - Last 24 Hours (Table) 12/08/22 12/08/22 12/08/22 Range/Units 19:27 19:27 19:27 WBC 28.4 H (3.8-10.6) k/uL RBC 3.88 L (4.30-5.90) m/uL Hgb 9.8 L (13.0-17.5) gm/dL Hct 31.7 L (39.0-53.0) % MCHC 30.9 L (31.0-37.0) g/dL Plt Count 736 H (150-450) k/uL Neutrophils # (Manual) 24.99 H (1.3-7.7) k/uL Metamyelocytes # (Man) 0.28 H (0) k/uL Myelocytes # (Manual) 0.28 H (0) k/uL Sodium 128 L (137-145) mmol/L Chloride 94 L (98-107) mmol/L Creatinine 0.48 L (0.66-1.25) mg/dL Glucose 349 H (74-99) mg/dL POC Glucose (mg/dL) (70-110) mg/dL Hemoglobin A1c (<=6.0) % Plasma Lactic Acid Jermain 3.0 H* (0.7-2.0) mmol/L Albumin 2.8 L (3.5-5.0) g/dL 12/08/22 12/08/22 12/09/22 Range/Units 22:53 23:40 04:20 WBC (3.8-10.6) k/uL RBC (4.30-5.90) m/uL Hgb (13.0-17.5) gm/dL Hct (39.0-53.0) % MCHC (31.0-37.0) g/dL Plt Count (150-450) k/uL Neutrophils # (Manual) (1.3-7.7) k/uL Metamyelocytes # (Man) (0) k/uL Myelocytes # (Manual) (0) k/uL Sodium (137-145) mmol/L Chloride (98-107) mmol/L Creatinine (0.66-1.25) mg/dL Glucose (74-99) mg/dL POC Glucose (mg/dL) 239 H (70-110) mg/dL Hemoglobin A1c 9.1 H (<=6.0) % Plasma Lactic Acid Jermain 2.1 H* (0.7-2.0) mmol/L Albumin (3.5-5.0) g/dL 12/09/22 Range/Units 05:34 WBC (3.8-10.6) k/uL RBC (4.30-5.90) m/uL Hgb (13.0-17.5) gm/dL Hct (39.0-53.0) % MCHC (31.0-37.0) g/dL Plt Count (150-450) k/uL Neutrophils # (Manual) (1.3-7.7) k/uL Metamyelocytes # (Man) (0) k/uL Myelocytes # (Manual) (0) k/uL Sodium (137-145) mmol/L Chloride (98-107) mmol/L Creatinine (0.66-1.25) mg/dL Glucose (74-99) mg/dL POC Glucose (mg/dL) 250 H (70-110) mg/dL Hemoglobin A1c (<=6.0) % Plasma Lactic Acid Jermain (0.7-2.0) mmol/L Albumin (3.5-5.0) g/dL Microbiology - Last 24 Hours (Table) 12/08/22 19:27 Gram Stain - Preliminary Foot - Left Thrombosis Risk Factor Assmnt - Choose All That Apply Any of the Below Risk Factors Present?: Yes Each Factor Represents 1 point: Abnormal pulmonary function (COPD) Each Risk Factor Represents 2 Points: Age 61-74 years Other congenital or acquired thrombophilia - If yes, enter type in comment: No Thrombosis Risk Factor Assessment Total Risk Factor Score: 3 Thrombosis Risk Factor Assessment Level: Moderate Risk
[2022-12-09 20:18] LABS: Glucose,Whole Blood 244 mg/dL (70-110)
[2022-12-09] MEDS: MELATONIN 5 MG TABLET PO SCH (20:36)
[2022-12-09] MEDS: LINAGLIPTIN 5 MG TABLET PO SCH (20:37)
--- NOTE | 2022-12-09 21:53 | XR ---
EXAMINATION: XR chest 1V portable DATE AND TIME: 12/09/2022 9:15 PM CLINICAL INDICATION: PHH; Post OP TECHNIQUE: Portable AP upright COMPARISON: 09/10/2022 FINDINGS: The lungs are clear. The pleural spaces are negative. The cardiac silhouette is not enlarged. The remainder of the mediastinal silhouette is unremarkable. The skeletal structures and soft tissues are negative for acute findings. IMPRESSION: NO ACUTE PROCESS.
--- NOTE | 2022-12-09 22:46 | P.CONS ---
History of Present Illness - Reason for Consult Consult date: 12/09/22 Diabetic foot ulcer and ostial myelitis Requesting physician: Gema Reyna - Chief Complaint Worsening and foul-smelling wound to the left foot x days - History of Present Illness Patient is a 62-year-old male with a past medical history sniffing and for diabetes mellitus hypertension hyperlipidemia patient did have a bilateral heel pressure ulcer that has been taken care in the outpatient setting by the home care nurse and the patient's son patient was noticed to have any worsening of the wound especially to the left heel area with the patient's admission has been getting worse over the last few days becoming more discolored and did have foul-smelling drainage no clear history of any fever or chills at home patient himself is not a very good historian so most information has been obtained from review of the chart and talking to the son at the bedside patient on presentation to the hospital did have low-grade fever of 99.3 he did spike a fever 100.3 F this morning patient was mildly hypertensive and tachycardic not hypoxic no need for supplemental oxygen patient did have white count 28.4 with a left shift did have elevated lactic acid creatinine was normal given symptoms abnormal local cultures obtained which are currently pending patient did have a x-ray of the foot mild soft tissue swelling involving the heel x-ray of the sacral area shows a sacral ulcer measuring roughly 3 cm in diameter focal osteolysis at the sacrococcygeal extremity suggest osteomyelitis patient was started on vancomycin and Unasyn empirically infectious disease was consulted for further management of antibiotic therapy patient scheduled for possible debridement versus amputation this afternoon per the vascular surgeon Review of Systems Positive point and negatives has been mentioned in the HPI, complete review of systems was performed and all other systems are negative Past Medical History Past Medical History: Diabetes Mellitus Additional Past Medical History / Comment(s): pressure ulcers[Buttock,simone heals ,rt lateral foot] History of Any Multi-Drug Resistant Organisms: None Reported Past Surgical History: Orthopedic Surgery Additional Past Surgical History / Comment(s): back pain son states pt recently "slipped a disc" taking gabapentin. Past Psychological History: No Psychological Hx Reported Smoking Status: Current every day smoker Past Alcohol Use History: Rare Past Drug Use History: None Reported Medications and Allergies Home Medications Medication Instructions Recorded Confirmed Type sitaGLIPtin [Januvia] 100 mg PO HS@199903/02/22 12/08/22 History Amiodarone [Cordarone] 200 mg PO DAILY tab 03/25/22 12/08/22 Rx Folic Acid 1 mg PO DAILY tab 03/25/22 12/08/22 Rx Furosemide [Lasix] 40 mg PO DAILY tab 03/25/22 12/08/22 Rx Sennosides [Senokot] 8.6 mg PO DAILY tab 03/25/22 12/08/22 Rx Acetaminophen [Tylenol Arthritis] 650 mg PO Q6H PRN 09/11/22 12/08/22 History Calcium Carbonate [Tums] 1,000 mg PO TID PRN 09/11/22 12/08/22 History INSULIN ASPART (NovoLOG) [NovoLOG 5 unit SQ [facility] 09/11/22 12/08/22 History (formulary)] INSULIN ASPART (NovoLOG) [NovoLOG See Protocol SQ [facility] 09/11/22 12/08/22 History (formulary)] Insulin Detemir (Levemir) [Levemir] 10 unit SQ HS@199909/11/22 12/08/22 History Loperamide [Imodium] 2 mg PO BID PRN 09/11/22 12/08/22 History Melatonin 5 mg PO HS@199909/11/22 12/08/22 History Multivitamins, Thera [Multivitamin 1 tab PO DAILY 09/11/22 12/08/22 History (formulary)] polyethylene glycoL 3350 [Miralax] 17 gm PO DAILY 09/11/22 12/08/22 History Amoxic-Pot Clav 875-125Mg 1 tab PO Q12HR 10 Days #20 tab 12/17/22 Rx [Augmentin 875-125] Gabapentin [Neurontin] 300 mg PO TID #6 cap 12/17/22 Rx HYDROcodone/APAP 5-325MG [[place] 1 tab PO Q4HR PRN 3 Days #6 tab 12/17/22 Rx 5-325] Metoprolol Tartrate [Lopressor] 12.5 mg PO BID #30 tab 12/17/22 Rx Allergies Allergy/AdvReac Type Severity Reaction Status Date / Time No Known Allergies Allergy Verified 12/09/22 16:33 Physical Exam Vitals: Vital Signs Temp Pulse Pulse Resp BP BP Pulse Ox 12/09/22 07:32 100.3 F H 97 17 98/60 98 12/08/22 23:51 99.3 F 99 20 114/71 100 12/08/22 20:11 108 H 18 137/67 100 12/08/22 15:52 98.7 F 111 H 20 101/64 100 Intake and Output 12/08/22 12/09/22 12/09/22 22:59 06:59 14:59 Output Total 500 Balance -500 Output: Urine 500 Uretheral (Zee) 100 Other: Voiding Method Indwelling Catheter Weight 60.781 kg 60.781 kg GENERAL DESCRIPTION: Middle-aged male lying in bed, no distress. No tachypnea or accessory muscle of respiration use. HEENT: Shows Pallor , no scleral icterus. Oral mucous membrane is dry. No pharyngeal erythema or thrush NECK: Trachea central, no thyromegaly. LUNGS: Unlabored breathing. Clear to auscultation anteriorly. No wheeze or crackle. HEART: S1, S2, regular rate and rhythm. No loud murmur ABDOMEN: Soft, no tenderness , guarding or rigidity, no organomegaly EXTREMITIES: Left foot with foul-smelling necrotic wound right heel did have a necrotic wound SKIN: No rash, no masses palpable. Stage III sacral pressure ulcer with some slough tissue no surrounding redness NEUROLOGICAL: The patient is awake, alert, oriented x3, mood and affect normal. Results CBC & Chem 7: 12/16/22 06:12 12/16/22 06:12 Labs: Abnormal Lab Results - Last 24 Hours (Table) 12/08/22 12/08/22 12/08/22 Range/Units 19:27 19:27 19:27 WBC 28.4 H (3.8-10.6) k/uL RBC 3.88 L (4.30-5.90) m/uL Hgb 9.8 L (13.0-17.5) gm/dL Hct 31.7 L (39.0-53.0) % MCHC 30.9 L (31.0-37.0) g/dL Plt Count 736 H (150-450) k/uL Neutrophils # (Manual) 24.99 H (1.3-7.7) k/uL Metamyelocytes # (Man) 0.28 H (0) k/uL Myelocytes # (Manual) 0.28 H (0) k/uL Sodium 128 L (137-145) mmol/L Chloride 94 L (98-107) mmol/L Creatinine 0.48 L (0.66-1.25) mg/dL Glucose 349 H (74-99) mg/dL POC Glucose (mg/dL) (70-110) mg/dL Hemoglobin A1c (<=6.0) % Plasma Lactic Acid Jermain 3.0 H* (0.7-2.0) mmol/L Albumin 2.8 L (3.5-5.0) g/dL 12/08/22 12/08/22 12/09/22 Range/Units 22:53 23:40 04:20 WBC (3.8-10.6) k/uL RBC (4.30-5.90) m/uL Hgb (13.0-17.5) gm/dL Hct (39.0-53.0) % MCHC (31.0-37.0) g/dL Plt Count (150-450) k/uL Neutrophils # (Manual) (1.3-7.7) k/uL Metamyelocytes # (Man) (0) k/uL Myelocytes # (Manual) (0) k/uL Sodium (137-145) mmol/L Chloride (98-107) mmol/L Creatinine (0.66-1.25) mg/dL Glucose (74-99) mg/dL POC Glucose (mg/dL) 239 H (70-110) mg/dL Hemoglobin A1c 9.1 H (<=6.0) % Plasma Lactic Acid Jermain 2.1 H* (0.7-2.0) mmol/L Albumin (3.5-5.0) g/dL 12/09/22 12/09/22 Range/Units 05:34 11:27 WBC (3.8-10.6) k/uL RBC (4.30-5.90) m/uL Hgb (13.0-17.5) gm/dL Hct (39.0-53.0) % MCHC (31.0-37.0) g/dL Plt Count (150-450) k/uL Neutrophils # (Manual) (1.3-7.7) k/uL Metamyelocytes # (Man) (0) k/uL Myelocytes # (Manual) (0) k/uL Sodium (137-145) mmol/L Chloride (98-107) mmol/L Creatinine (0.66-1.25) mg/dL Glucose (74-99) mg/dL POC Glucose (mg/dL) 250 H 377 H (70-110) mg/dL Hemoglobin A1c (<=6.0) % Plasma Lactic Acid Jermain (0.7-2.0) mmol/L Albumin (3.5-5.0) g/dL Microbiology - Last 24 Hours (Table) 12/08/22 19:27 Gram Stain - Preliminary Foot - Left Assessment and Plan (1) Acute osteomyelitis of ankle or foot Current Visit: Yes Status: Acute Code(s): M86.179 - OTHER ACUTE OSTEOMYELITIS, UNSPECIFIED ANKLE AND FOOT SNOMED Code(s): 841195204 (2) Diabetic foot infection Current Visit: Yes Status: Acute Code(s): E11.628 - TYPE 2 DIABETES MELLITUS WITH OTHER SKIN COMPLICATIONS; L08.9 - LOCAL INFECTION OF THE SKIN AND SUBCUTANEOUS TISSUE, UNSP SNOMED Code(s): 769234690 (3) Gangrene of left foot Current Visit: Yes Status: Acute Code(s): I96 - GANGRENE, NOT ELSEWHERE CLASSIFIED SNOMED Code(s): 49766601513553371 (4) Stage III pressure ulcer of sacral region Current Visit: No Status: Acute Code(s): L89.153 - PRESSURE ULCER OF SACRAL REGION, STAGE 3 SNOMED Code(s): 59803751009682 Plan: 1patient [facility] hospital with sepsis in this patient who did have fever tachycardia elevated white count elevated lactic acidosis left diabetic foot infection in this patient with the unstageable pressure ulcer with significant wet gangrene and will need to cover for the polymicrobial ceferino usually associated with diabetic foot infection 2-sacral pressure ulcer but no cellulitis 3-await surgical debridement versus amputation and deep culture 4-we will continue with empiric vancomycin and Unasyn while waiting for the cultures to be completed We will follow on clinical condition and cultures to further adjust medication if needed Thank you for this consultation we will follow the patient along with you Time with Patient: Greater than 30
[2022-12-09] MEDS: HYDROcodone/APAP 5-325MG 1 EACH TAB PO PRN (22:50)
[2022-12-10] MEDS: VANCOMYCIN 1,250 MG in SODIUM CHLORIDE 0.9% 250 ML IVPB SCH ×3 (01:09→23:34)
[2022-12-10] MEDS: MORPHINE SULFATE 4 MG/ML SYRINGE IV PRN ×5 (01:49→20:05)
[2022-12-10] MEDS: HYDROcodone/APAP 5-325MG 1 EACH TAB PO PRN ×3 (04:51→23:05)
[2022-12-10] MEDS: AMPICILLIN-SULBACTAM 3 GM in SODIUM CHLORIDE 0.9% 100 ML IVPB SCH ×4 (05:19→22:25)
[2022-12-10] MEDS: SODIUM CHLORIDE 0.9% 1,000 ML IV SCH ×3 (05:29→22:26)
[2022-12-10 05:52] LABS: Glucose,Whole Blood 233 mg/dL (70-110)
[2022-12-10] MEDS: INSULIN ASPART (NovoLOG) 100 UNIT/ML VIAL SQ SCH ×4 (06:13→22:25)
[2022-12-10 06:26] LABS: African American GFR (CKD) >90 (>60 ml/min/1.73 sqM); Anion Gap 5 mmol/L; Blood Urea Nitrogen 7 mg/dL (9-20); Calcium 7.5 mg/dL (8.4-10.2); Carbon Dioxide 27 mmol/L (22-30); Chloride 104 mmol/L (98-107); Glucose 207 mg/dL (74-99); Non-African American GFR(CKD) >90 (>60 ml/min/1.73 sqM); Potassium 3.8 mmol/L (3.5-5.1); Sodium 136 mmol/L (137-145)
[2022-12-10 06:30] LABS: Basophils % (A) 0 %; Eosinophils # (A) 0.1 k/uL (0-0.7); Eosinophils % (A) 1 %; HGB 8.6 gm/dL (13.0-17.5); Hypochromasia Marked; Lymphocytes # (A) 1.7 k/uL (1.0-4.8); Lymphocytes % (A) 21 %; MCH 24.9 pg (25.0-35.0); MCHC 30.5 g/dL (31.0-37.0); MCV 81.6 fL (80.0-100.0); Mean Platelet Volume 7.3; Monocytes # (A) 0.3 k/uL (0-1.0); Monocytes % (A) 4 %; Neutrophils # (A) 5.6 k/uL (1.3-7.7); Neutrophils % (A) 71 %; Platelet Count 530 k/uL (150-450); RBC 3.44 m/uL (4.30-5.90); RDW 14.4 % (11.5-15.5); WBC 7.8 k/uL (3.8-10.6)
[2022-12-10] MEDS: FOLIC ACID 1 MG TAB PO SCH (09:04)
[2022-12-10] MEDS: MULTIVITAMINS, THERA 1 EACH TAB PO SCH (09:04)
[2022-12-10] MEDS: polyethylene glycoL 3350 17 GM POWD.PACK PO SCH (09:04)
[2022-12-10] MEDS: NICOTINE 7MG/24HR PATCH TRANSDERM SCH (09:04)
[2022-12-10] MEDS: METOPROLOL TARTRATE 12.5 MG TAB PO SCH ×2 (09:04→20:05)
[2022-12-10] MEDS: SENNOSIDES 8.6 MG TAB PO SCH (09:04)
[2022-12-10] MEDS: GABAPENTIN 300 MG CAP PO SCH ×3 (09:04→22:26)
[2022-12-10] MEDS: AMIODARONE 200 MG TAB PO SCH (09:05)
[2022-12-10] MEDS ORDERED: VANCOMYCIN TROUGH DUE 1 EACH MISC MISCELLANE ONE (11:00)
[2022-12-10 11:10] LABS: Glucose,Whole Blood 189 mg/dL (70-110)
--- NOTE | 2022-12-10 11:37 | P.PN ---
Subjective Progress Note Date: 12/10/22 Patient seen and examined. No complaints. Resting comfortably Objective - Vital Signs Vital signs: Vital Signs Temp 98.1 F 12/10/22 06:57 Pulse 73 12/10/22 06:57 Resp 16 12/10/22 06:57 BP 104/67 12/10/22 06:57 Pulse Ox 99 12/10/22 06:57 FiO2 Intake & Output 12/09/22 12/10/22 12/10/22 18:59 06:59 18:59 Intake Total 1200 905 Output Total 10 625 Balance 1190 280 Weight 60.781 kg Intake: IV 1200 Intake, IV Titration 425 Amount Ampicillin-Sulbactam 3 gm 100 In Sodium Chloride 0.9% 100 ml @ 200 mls/hr IVPB Q6H [facility] Rx#:[id number] Sodium Chloride 0.9% 1, 75 000 ml @ 75 mls/hr IV . [id number] [facility] Rx#:[id number] Vancomycin 1,250 mg In 250 Sodium Chloride 0.9% 250 ml @ 125 mls/hr IVPB Q12H [facility] Rx#:[id number] Oral 480 Output: Urine 625 Estimated Blood Loss 10 Other: Voiding Method Indwelling Catheter Indwelling Catheter Indwelling Catheter # Bowel Movements 1 - Exam Gen a pleasant cooperative elderly male appearing older than stated age. Tobacco staining on appeared and fingers. Left below-knee mutation guillotine site clean and dry. Right heel dressing in place, heel resting upon the bed - Labs CBC & Chem 7: 12/10/22 05:42 12/10/22 05:42 Labs: Abnormal Lab Results - Last 24 Hours (Table) 12/09/22 12/09/22 12/09/22 Range/Units 16:51 18:03 20:16 RBC (4.30-5.90) m/uL Hgb (13.0-17.5) gm/dL Hct (39.0-53.0) % MCH (25.0-35.0) pg MCHC (31.0-37.0) g/dL Plt Count (150-450) k/uL Sodium (137-145) mmol/L BUN (9-20) mg/dL Creatinine (0.66-1.25) mg/dL Glucose (74-99) mg/dL POC Glucose (mg/dL) 194 H 191 H 244 H (70-110) mg/dL Calcium (8.4-10.2) mg/dL 12/10/22 12/10/22 12/10/22 Range/Units 05:42 05:42 05:46 RBC 3.44 L (4.30-5.90) m/uL Hgb 8.6 L (13.0-17.5) gm/dL Hct 28.0 L (39.0-53.0) % MCH 24.9 L (25.0-35.0) pg MCHC 30.5 L (31.0-37.0) g/dL Plt Count 530 H (150-450) k/uL Sodium 136 L (137-145) mmol/L BUN 7 L (9-20) mg/dL Creatinine 0.29 L (0.66-1.25) mg/dL Glucose 207 H (74-99) mg/dL POC Glucose (mg/dL) 233 H (70-110) mg/dL Calcium 7.5 L (8.4-10.2) mg/dL 12/10/22 Range/Units 11:09 RBC (4.30-5.90) m/uL Hgb (13.0-17.5) gm/dL Hct (39.0-53.0) % MCH (25.0-35.0) pg MCHC (31.0-37.0) g/dL Plt Count (150-450) k/uL Sodium (137-145) mmol/L BUN (9-20) mg/dL Creatinine (0.66-1.25) mg/dL Glucose (74-99) mg/dL POC Glucose (mg/dL) 189 H (70-110) mg/dL Calcium (8.4-10.2) mg/dL Microbiology - Last 24 Hours (Table) 12/08/22 20:30 Blood Culture - Preliminary Blood 12/08/22 20:45 Blood Culture - Preliminary Blood Assessment and Plan Assessment: Postoperative day #1 from [facility] left below-knee amputation Multiple pressure wounds, bilateral heel and sacral. Wet gangrene of left heel with gas found on imaging Bedbound History of stroke Tobacco abuse Diabetes Plan: Had discussion with patient today that there is importance of offloading. We will order a metabolic for right heel. Continue supportive care, general surgery to see for sacral wound. Will need completion amputation once more medically optimized. Had a long discussion again with the patient, likely would be above-knee amputation due to nonambulatory status.
--- NOTE | 2022-12-10 13:52 | P.GSCN ---
History of Present Illness Consult date: 12/10/22 History of present illness: CHIEF COMPLAINT: Left foot sores HISTORY OF PRESENT ILLNESS: This is a 62-year-old male who presented to the hospital with evidence of osteomyelitis and gas gangrene of the left foot and right heel. He is status post below-knee amputation of left lower extremity and debridement of the right heel by vascular surgical service. Gen. surgery has been consulted in regards to patient's sacral wound and possible debridement. Patient reports that he has had the sacral wound since January 2022. Patient is a poor historian but appears that he has been receiving wound care at [facility]. He does report some soreness in the area. Denies any drainage. He is a diabetic. He did have a low-grade temp of 100.3 yesterday. His white count has normalized. PAST MEDICAL HISTORY: See below PAST SURGICAL HISTORY: See below MEDICATIONS: See below ALLERGIES: See below SOCIAL HISTORY: No illicit drug use. REVIEW OF SYSTEMS: CONSTITUTIONAL: Denies fever or chills. HEENT: Denies blurred vision, vision changes, or eye pain. Denies hemoptysis CARDIOVASCULAR: Denies chest pain or pressure. RESPIRATORY: No shortness of breath. GASTROINTESTINAL: See HPI for pertinent findings HEMATOLOGIC: Denies bleeding disorders. GENITOURINARY: Denies any blood in urine or increased urinary frequency. SKIN: Denies pruitis. Denies rash. PHYSICAL EXAM: VITAL SIGNS: Reviewed GENERAL: Well-developed in no acute distress. ABDOMEN: Soft. Nondistended. Nontender NEUROLOGIC: Alert and oriented. Cranial nerves II through XII grossly intact. SKIN: Sacral decubitus ulcer with with slough and pink bedding. small darkened area on the right side of the ulcer LABORATORY DATA: WBC 28.4 to 7.8 HGB 8.6 platelets 5:30 Sodium 136 potassium 3.8 creatinine 0.29 Lactic acid 2.1 to 1.2 IMAGING: x-ray of the sacrum and coccyx there appears to be a sacral decubitus ulcer measuring roughly 3 cm in diameter 1 cm in depth extending down to the sacrococcygeal junction. There appears to be focal ostial lysis at the sacrococcygeal junction suggesting osteomyelitis which could be either acute or chronic ASSESSMENT: 1. Sacral decubitus ulcer 2. Diabetes mellitus PLAN: -Patient is tentatively scheduled for debridement of sacral decubitus ulcer on Tuesday with Dr. al -Continue supportive care -Continue offloading Physician Professor [employer] note has been reviewed by physician. Signing provider agrees with the documented findings, assessment, and plan of care. Past Medical History Past Medical History: Diabetes Mellitus Additional Past Medical History / Comment(s): pressure ulcers[Buttock,simone heals ,rt lateral foot] History of Any Multi-Drug Resistant Organisms: None Reported Past Surgical History: Orthopedic Surgery Additional Past Surgical History / Comment(s): back pain son states pt recently "slipped a disc" taking gabapentin. Past Psychological History: No Psychological Hx Reported Smoking Status: Current every day smoker Past Alcohol Use History: Rare Past Drug Use History: None Reported Medications and Allergies Home Medications Medication Instructions Recorded Confirmed Type sitaGLIPtin [Januvia] 100 mg PO HS@199903/02/22 12/08/22 History Amiodarone [Cordarone] 200 mg PO DAILY tab 03/25/22 12/08/22 Rx Folic Acid 1 mg PO DAILY tab 03/25/22 12/08/22 Rx Furosemide [Lasix] 40 mg PO DAILY tab 03/25/22 12/08/22 Rx Sennosides [Senokot] 8.6 mg PO DAILY tab 03/25/22 12/08/22 Rx Acetaminophen [Tylenol Arthritis] 650 mg PO Q6H PRN 09/11/22 12/08/22 History Calcium Carbonate [Tums] 1,000 mg PO TID PRN 09/11/22 12/08/22 History INSULIN ASPART (NovoLOG) [NovoLOG 5 unit SQ [facility] 09/11/22 12/08/22 History (formulary)] INSULIN ASPART (NovoLOG) [NovoLOG See Protocol SQ [facility] 09/11/22 12/08/22 History (formulary)] Insulin Detemir (Levemir) [Levemir] 10 unit SQ HS@199909/11/22 12/08/22 History Loperamide [Imodium] 2 mg PO BID PRN 09/11/22 12/08/22 History Melatonin 5 mg PO HS@199909/11/22 12/08/22 History Metoprolol Tartrate [Lopressor] 25 mg PO BID 09/11/22 12/08/22 History Multivitamins, Thera [Multivitamin 1 tab PO DAILY 09/11/22 12/08/22 History (formulary)] polyethylene glycoL 3350 [Miralax] 17 gm PO DAILY 09/11/22 12/08/22 History Gabapentin 300 mg PO TID 12/08/22 12/08/22 History Allergies Allergy/AdvReac Type Severity Reaction Status Date / Time No Known Allergies Allergy Verified 12/09/22 16:33 Surgical - Exam Vital Signs Temp Pulse Resp BP Pulse Ox 98.7 F 111 H 20 101/64 100 12/08/22 15:52 12/08/22 15:52 12/08/22 15:52 12/08/22 15:52 12/08/22 15:52 Results - Labs 12/10/22 05:42 12/10/22 05:42 Abnormal Lab Results - Last 24 Hours (Table) 12/09/22 12/09/22 12/09/22 Range/Units 11:27 16:51 18:03 RBC (4.30-5.90) m/uL Hgb (13.0-17.5) gm/dL Hct (39.0-53.0) % MCH (25.0-35.0) pg MCHC (31.0-37.0) g/dL Plt Count (150-450) k/uL Sodium (137-145) mmol/L BUN (9-20) mg/dL Creatinine (0.66-1.25) mg/dL Glucose (74-99) mg/dL POC Glucose (mg/dL) 377 H 194 H 191 H (70-110) mg/dL Calcium (8.4-10.2) mg/dL 12/09/22 12/10/22 12/10/22 Range/Units 20:16 05:42 05:42 RBC 3.44 L (4.30-5.90) m/uL Hgb 8.6 L (13.0-17.5) gm/dL Hct 28.0 L (39.0-53.0) % MCH 24.9 L (25.0-35.0) pg MCHC 30.5 L (31.0-37.0) g/dL Plt Count 530 H (150-450) k/uL Sodium 136 L (137-145) mmol/L BUN 7 L (9-20) mg/dL Creatinine 0.29 L (0.66-1.25) mg/dL Glucose 207 H (74-99) mg/dL POC Glucose (mg/dL) 244 H (70-110) mg/dL Calcium 7.5 L (8.4-10.2) mg/dL 12/10/22 Range/Units 05:46 RBC (4.30-5.90) m/uL Hgb (13.0-17.5) gm/dL Hct (39.0-53.0) % MCH (25.0-35.0) pg MCHC (31.0-37.0) g/dL Plt Count (150-450) k/uL Sodium (137-145) mmol/L BUN (9-20) mg/dL Creatinine (0.66-1.25) mg/dL Glucose (74-99) mg/dL POC Glucose (mg/dL) 233 H (70-110) mg/dL Calcium (8.4-10.2) mg/dL Microbiology - Last 24 Hours (Table) 12/08/22 20:30 Blood Culture - Preliminary Blood 12/08/22 20:45 Blood Culture - Preliminary Blood 12/08/22 19:27 Gram Stain - Preliminary Foot - Left Diabetes panel 12/10/22 Range/Units 05:42 Sodium 136 L (137-145) mmol/L Potassium 3.8 (3.5-5.1) mmol/L Chloride 104 (98-107) mmol/L Carbon Dioxide 27 (22-30) mmol/L BUN 7 L (9-20) mg/dL Creatinine 0.29 L (0.66-1.25) mg/dL Glucose 207 H (74-99) mg/dL Calcium 7.5 L (8.4-10.2) mg/dL Calcium panel 12/10/22 Range/Units 05:42 Calcium 7.5 L (8.4-10.2) mg/dL Pituitary panel 12/10/22 Range/Units 05:42 Sodium 136 L (137-145) mmol/L Potassium 3.8 (3.5-5.1) mmol/L Chloride 104 (98-107) mmol/L Carbon Dioxide 27 (22-30) mmol/L BUN 7 L (9-20) mg/dL Creatinine 0.29 L (0.66-1.25) mg/dL Glucose 207 H (74-99) mg/dL Calcium 7.5 L (8.4-10.2) mg/dL Adrenal panel 12/10/22 Range/Units 05:42 Sodium 136 L (137-145) mmol/L Potassium 3.8 (3.5-5.1) mmol/L Chloride 104 (98-107) mmol/L Carbon Dioxide 27 (22-30) mmol/L BUN 7 L (9-20) mg/dL Creatinine 0.29 L (0.66-1.25) mg/dL Glucose 207 H (74-99) mg/dL Calcium 7.5 L (8.4-10.2) mg/dL
--- NOTE | 2022-12-10 15:27 | P.PN ---
Subjective Progress Note Date: 12/10/22 Principal diagnosis: Diabetic foot infection Patient is a 62-year-old male with a past medical history sniffing and for diabetes mellitus hypertension hyperlipidemia patient did have a bilateral heel pressure ulcer, patient has been diagnosed with a wet gangrene to the left foot in this patient who is status post left [id number] amputation completed on 12/09/2022 by vascular surgery On today's evaluation that is 12/10/2022, the patient denies having any fever or any chills is more awake and he is breathing comfortably no chest pain shortness of breath or cough no abdominal pain, the patient pain to the left BK stump is controlled Objective - Vital Signs Vital signs: Vital Signs Temp 98.1 F 12/10/22 06:57 Pulse 73 12/10/22 10:40 Resp 16 12/10/22 06:57 BP 104/67 12/10/22 06:57 Pulse Ox 99 12/10/22 06:57 FiO2 Intake & Output 12/09/22 12/10/22 12/10/22 18:59 06:59 18:59 Intake Total 1200 905 Output Total 10 625 Balance 1190 280 Weight 60.781 kg Intake: IV 1200 Intake, IV Titration 425 Amount Ampicillin-Sulbactam 3 gm 100 In Sodium Chloride 0.9% 100 ml @ 200 mls/hr IVPB Q6H [facility] Rx#:[id number] Sodium Chloride 0.9% 1, 75 000 ml @ 75 mls/hr IV . [id number] [facility] Rx#:[id number] Vancomycin 1,250 mg In 250 Sodium Chloride 0.9% 250 ml @ 125 mls/hr IVPB Q12H [facility] Rx#:[id number] Oral 480 Output: Urine 625 Estimated Blood Loss 10 Other: Voiding Method Indwelling Catheter Indwelling Catheter Indwelling Catheter # Bowel Movements 1 - Exam GENERAL DESCRIPTION: An elderly male lying in bed in no distress RESPIRATORY SYSTEM: Unlabored breathing , decreased breath sounds at bases HEART: S1 S2 regular rate and rhythm , ABDOMEN: Soft , no tenderness EXTREMITIES: Left BKA stump is currently dressed - Labs CBC & Chem 7: 12/10/22 05:42 12/10/22 05:42 Labs: Abnormal Lab Results - Last 24 Hours (Table) 12/09/22 12/09/22 12/09/22 Range/Units 16:51 18:03 20:16 RBC (4.30-5.90) m/uL Hgb (13.0-17.5) gm/dL Hct (39.0-53.0) % MCH (25.0-35.0) pg MCHC (31.0-37.0) g/dL Plt Count (150-450) k/uL Sodium (137-145) mmol/L BUN (9-20) mg/dL Creatinine (0.66-1.25) mg/dL Glucose (74-99) mg/dL POC Glucose (mg/dL) 194 H 191 H 244 H (70-110) mg/dL Calcium (8.4-10.2) mg/dL 12/10/22 12/10/22 12/10/22 Range/Units 05:42 05:42 05:46 RBC 3.44 L (4.30-5.90) m/uL Hgb 8.6 L (13.0-17.5) gm/dL Hct 28.0 L (39.0-53.0) % MCH 24.9 L (25.0-35.0) pg MCHC 30.5 L (31.0-37.0) g/dL Plt Count 530 H (150-450) k/uL Sodium 136 L (137-145) mmol/L BUN 7 L (9-20) mg/dL Creatinine 0.29 L (0.66-1.25) mg/dL Glucose 207 H (74-99) mg/dL POC Glucose (mg/dL) 233 H (70-110) mg/dL Calcium 7.5 L (8.4-10.2) mg/dL 12/10/22 Range/Units 11:09 RBC (4.30-5.90) m/uL Hgb (13.0-17.5) gm/dL Hct (39.0-53.0) % MCH (25.0-35.0) pg MCHC (31.0-37.0) g/dL Plt Count (150-450) k/uL Sodium (137-145) mmol/L BUN (9-20) mg/dL Creatinine (0.66-1.25) mg/dL Glucose (74-99) mg/dL POC Glucose (mg/dL) 189 H (70-110) mg/dL Calcium (8.4-10.2) mg/dL Microbiology - Last 24 Hours (Table) 12/08/22 19:27 Gram Stain - Preliminary Foot - Left Wound Culture - Preliminary Gram Neg Bacilli Gram Neg Bacilli#2 12/08/22 20:30 Blood Culture - Preliminary Blood 12/08/22 20:45 Blood Culture - Preliminary Blood Assessment and Plan (1) Gangrene of left foot Current Visit: Yes Status: Acute Code(s): I96 - GANGRENE, NOT ELSEWHERE CLASSIFIED SNOMED Code(s): 06118192666339614 (2) Diabetic foot infection Current Visit: Yes Status: Acute Code(s): E11.628 - TYPE 2 DIABETES MELLITUS WITH OTHER SKIN COMPLICATIONS; L08.9 - LOCAL INFECTION OF THE SKIN AND SUBCUTANEOUS TISSUE, UNSP SNOMED Code(s): 300085454 (3) Acute osteomyelitis of ankle or foot Current Visit: Yes Status: Acute Code(s): M86.179 - OTHER ACUTE OSTEOMYELITIS, UNSPECIFIED ANKLE AND FOOT SNOMED Code(s): 257573595 Plan: 1patient presented hospital with sepsis in this patient who did have fever tachycardia elevated white count elevated lactic acidosis left diabetic foot infection in this patient with the unstageable pressure ulcer with significant wet gangrene and will need to cover for the polymicrobial ceferino usually associated with diabetic foot infection 2-sacral pressure ulcer but no cellulitis 3Patient is status post left [id number] amputation completed by vascular s mandy 4-we will continue with empiric vancomycin and Unasyn while waiting for the cultures to be finalize and monitor clinical course closely Time with Patient: Less than 30
--- NOTE | 2022-12-10 16:07 | CDI ---
Documentation Clarification Form Date: 12/10/2022 03:23:11 PM From: Brionna Cabello RN, CCDS Admit Date: 12/09/2022 09:41:00 AM Patient Name: Misael Langley Visit Number: [id number] Discharge Date: ATTENTION: The Clinical Documentation Specialists (CDI) and [facility] Coding Staff appreciate your assistance in clarifying documentation. Please respond to the clarification below the line at the bottom and electronically sign. The CDI & [facility] Coding staff will review the response and follow-up if needed. Please note: Queries are made part of the Legal Health Record. If you have any questions, please contact the author of this message via ITS. Dr. Jerardo Guillen The patient has sepsis documentation in the ID consult on12/09/22. Based on this information and the findings below, is there an additional diagnosis that is clinically appropriate for this patient? 12/09 ID consult: Patient presented hospital with sepsis in this patient who did have fever tachycardia elevated white count elevated lactic acidosis left diabetic foot infection in this patient with the unstageable press ulcer with significant wet gangrene. History/Risk Factors: Diabetes Mellitus, Paroxysmal atrial fibrillation, COPD, Current smoker Clinical Indicators: 62-year-old male present with worsening of bilateral heel pressure ulcers. Left heel discolored, foul-smelling drainage. He has low-grade fever of 99.3 and did spike a fever 100.3. 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 [ + ] Sepsis, present on admission [ ] Sepsis ruled out [ ] Other, please specify [ ] Unable to determine SIRS Criteria: 2 or more of the following may indicate SIRS Temperature < 96.8F (36C) or > 101.0F (38.3C) Heart Rate > 90 bpm Respiratory Rate > 20 breaths/min or PaCO2 < 32 mmHg White Blood Cell Count > 12,000 or < 4,000 cells/mm3 or > 10% bands (Template Last Reviewed: May 2022) [facility]
[2022-12-10 16:22] LABS: Glucose,Whole Blood 207 mg/dL (70-110)
[2022-12-10] MEDS: MELATONIN 5 MG TABLET PO SCH (20:05)
[2022-12-10] MEDS: LINAGLIPTIN 5 MG TABLET PO SCH (20:05)
--- NOTE | 2022-12-10 20:09 | P.PN ---
Progress Note - Text Progress Note Date: 12/10/22 Chief Complaint: Multiple wounds This is a 62-year-old patient, follows with Dr. Mendez. Chronic stable medical conditions include ADHD, herniated disc lower back, smoker. Patient presents with worsening wound in the sacrum, both the heels. Some pain is present. Having fevers at home. Decreased appetite. Bowels are okay. Does smoke a few cigarettes a day. Has a home care nurse comes on every 3 days. Because of worsening wound patient is brought to the ER. Son at the bedside. Patient non-ambulatory. December 10: Patient underwent left foot amputation by Dr. Zee yesterday. She wanted surgery to at the sacral wound. Pain control. IV Unasyn. IV vancomycin . Active Medications Acetaminophen (Acetaminophen Tab 325 Mg Tab) 650 mg PO Q6HR PRN PRN Reason: Mild Pain or Fever > 100.5 Hydrocodone Bitart/Acetaminophen (Hydrocodone/Apap 5-325mg 1 Each Tab) 1 each PO Q4HR PRN PRN Reason: Moderate Pain (Scale 4 to 6) Last Admin: 12/10/22 14:15 Dose: 1 each Albuterol/Ipratropium (Ipratropium-Albuterol 3 Ml Neb) 3 ml INHALATION RT-QID PRN PRN Reason: Shortness Of Breath Or Wheezing Amiodarone HCl (Amiodarone 200 Mg Tab) 200 mg PO DAILY [facility] Last Admin: 12/10/22 09:05 Dose: 200 mg Calcium Carbonate/Glycine (Calcium Carbonate 500 Mg Chewable) 1,000 mg PO TID PRN PRN Reason: Indigestion Dextrose/Water (Dextrose 50% Syringe 50 Ml) 25 ml IVP PER PROTOCOL PRN; Protocol PRN Reason: Hypoglycemia Dextrose/Water (Dextrose 50% Syringe 50 Ml) 50 ml IVP PER PROTOCOL PRN; Protocol PRN Reason: Hypoglycemia Folic Acid (Folic Acid 1 Mg Tab) 1 mg PO DAILY [facility] Last Admin: 12/10/22 09:04 Dose: 1 mg Gabapentin (Gabapentin 300 Mg Cap) 300 mg PO TID [facility] Last Admin: 12/10/22 15:34 Dose: 300 mg Ampicillin Sodium/Sulbactam (Sodium 3 gm/ Sodium Chloride) 100 mls @ 200 mls/hr IVPB Q6H [facility]; Protocol Last Admin: 12/10/22 15:34 Dose: 200 mls/hr Sodium Chloride (Saline 0.9%) 1,000 mls @ 75 mls/hr IV .[id number] [facility] Last Admin: 12/10/22 17:02 Dose: 75 mls/hr Vancomycin HCl 1,250 mg/ (Sodium Chloride) 250 mls @ 125 mls/hr IVPB Q8H [facility]; Protocol Insulin Aspart (Insulin Aspart (Novolog) 100 Unit/Ml Vial) 0 unit SQ ACHS [facility]; Protocol Last Admin: 12/10/22 17:00 Dose: 6 unit Lactulose (Lactulose 20 Gm/30 Ml Cup) 20 gm PO DAILY PRN PRN Reason: Constipation Linagliptin (Linagliptin 5 Mg Tablet) 5 mg PO HS@1999 [facility] Last Admin: 12/09/22 20:37 Dose: 5 mg Lorazepam (Lorazepam 0.5 Mg Tab) 0.5 mg PO Q6HR PRN PRN Reason: Anxiety Melatonin (Melatonin 5 Mg Tablet) 5 mg PO HS@1999 [facility] Last Admin: 12/09/22 20:36 Dose: 5 mg Metoprolol Tartrate (Metoprolol Tartrate 12.5 Mg Tab) 12.5 mg PO BID [facility] Last Admin: 12/10/22 09:04 Dose: 12.5 mg Morphine Sulfate (Morphine Sulfate 4 Mg/Ml Syringe) 4 mg IV Q4HR PRN PRN Reason: Severe Pain (Scale 7 to 10) Last Admin: 12/10/22 15:34 Dose: 4 mg Multivitamins (Multivitamins, Thera 1 Each Tab) 1 each PO DAILY [facility] Last Admin: 12/10/22 09:04 Dose: 1 each Naloxone HCl (Naloxone 0.4 Mg/Ml 1 Ml Vial) 0.2 mg IV Q2M PRN PRN Reason: Opioid Reversal Nicotine (Nicotine 7mg/24hr Patch) 1 patch TRANSDERM DAILY [facility] Last Admin: 12/10/22 09:04 Dose: 1 patch Ondansetron HCl (Ondansetron 4 Mg/2 Ml Vial) 4 mg IVP Q8HR PRN PRN Reason: Nausea And Vomiting Polyethylene Glycol (Polyethylene Glycol 3350 17 Gm Powd.Pack) 17 gm PO DAILY [facility] Last Admin: 12/10/22 09:04 Dose: Not Given Senna (Sennosides 8.6 Mg Tab) 8.6 mg PO DAILY [facility] Last Admin: 12/10/22 09:04 Dose: 8.6 mg Temazepam (Temazepam 15 Mg Cap) 15 mg PO HS PRN PRN Reason: Insomnia Past medical history to include: Diabetes, possible ADHD, chronic low back pain, herniated disc, atrial fibrillation. COPD. Social history: Son lives with the patient. 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 Smokes about a pack a day, now down to a few cigarettes a day. Alcohol occasionally. Physical examination: VITAL SIGNS: 97.7, 69, 16, 93/58, 100% room air GENERAL: BMI 19.8, laying in bed tired. Loss of muscle mass. Loss of subcutaneous fat. Prominent bones.. EYES: Pupils equal. Conjunctiva normal. HEENT: External appearance of nose and ears normal, oral cavity grossly normal. NECK: JVD not raised; masses not palpable. HEART: First and second heart sounds are normal; no edema. LUNGS: Respiratory rate normal; decreased breath sounds. ABDOMEN: Soft, nontender, liver spleen not palpable, no masses palpable. PSYCH: [Alert and oriented x3; mood and affect tired l. MUSCULOSKELETAL: Reduced muscle mass. Prominent bones. Left foot amputation. NEUROLOGICAL: weakness lower extremity. With bilateral foot drop. Dermatological: Sacral decub INVESTIGATIONS, reviewed in the clinical context: December 10: White count 7.8 hemoglobin 8.6 platelets 5:30 sodium 136 potassium 3.8 BUN 7 creatinine 0.29 White count 28.4 hemoglobin 9.8 platelets 736 sodium 128 potassium 4.5 BUN 14 c reatinine 0.48 Lactic acid 3 albumin 2.8 Sacral and coccyx x-ray: Significant degree was ulcer 3 cm x 1 cm in depth. Focal ostial lyses at the sacrococcygeal junction. Suggestive of osteomyelitis. Assessment and plan: -Extensive decubitus ulcers including the right heel, left heel, sacrum/coccyx. At possible acute osteomyelitis. Surrounding cellulitis. Vascular surgery and ID consulted -Gangrene of the left foot with acute osteomyelitis: Left foot amputation on December [address] Zee Wound care. IV antibiotics -Sepsis from above, POA -Acute osteomyelitis left heel. IV Unasyn. IV vancomycin. -Paroxysmal atrial fibrillation: sinus rhythm Amiodarone. Lopressor. -Severe protein calorie malnutrition Supplementation added. -Diabetes mellitus type 2, chronically on insulin Follow Accu-Cheks. Januvia -COPD in a current smoker Bronchodilators as needed -Chronic nicotine dependence, cigarette smoker Nicotine patch -Chronic medical debility. Non-ambulatory -Severe protein calorie malnutrition. At supplements -Full code Continue IV Unasyn. Vancomycin. Was sacral wound Dr. Pabon consulted. Discussed. Follow
[2022-12-10 21:41] LABS: Glucose,Whole Blood 152 mg/dL (70-110)
[2022-12-11] MEDS: AMPICILLIN-SULBACTAM 3 GM in SODIUM CHLORIDE 0.9% 100 ML IVPB SCH ×2 (04:14→11:45)
[2022-12-11] MEDS: VANCOMYCIN 1,250 MG in SODIUM CHLORIDE 0.9% 250 ML IVPB SCH (05:57)
[2022-12-11 06:19] LABS: Glucose,Whole Blood 173 mg/dL (70-110)
[2022-12-11] MEDS: INSULIN ASPART (NovoLOG) 100 UNIT/ML VIAL SQ SCH ×4 (06:45→21:55)
[2022-12-11] MEDS: HYDROcodone/APAP 5-325MG 1 EACH TAB PO PRN ×3 (07:14→21:54)
[2022-12-11] MEDS: NICOTINE 7MG/24HR PATCH TRANSDERM SCH (09:16)
[2022-12-11] MEDS: METOPROLOL TARTRATE 12.5 MG TAB PO SCH ×2 (09:16→21:55)
[2022-12-11] MEDS: MULTIVITAMINS, THERA 1 EACH TAB PO SCH (09:16)
[2022-12-11] MEDS: SENNOSIDES 8.6 MG TAB PO SCH (09:16)
[2022-12-11] MEDS: AMIODARONE 200 MG TAB PO SCH (09:17)
[2022-12-11] MEDS: GABAPENTIN 300 MG CAP PO SCH ×3 (09:17→21:55)
[2022-12-11] MEDS: FOLIC ACID 1 MG TAB PO SCH (09:17)
[2022-12-11] MEDS: polyethylene glycoL 3350 17 GM POWD.PACK PO SCH (09:17)
[2022-12-11] MEDS: MORPHINE SULFATE 4 MG/ML SYRINGE IV PRN ×3 (09:58→19:49)
[2022-12-11 11:38] LABS: Glucose,Whole Blood 214 mg/dL (70-110)
[2022-12-11] MEDS ORDERED: VANCOMYCIN TROUGH DUE 1 EACH MISC MISCELLANE ONE (13:00)
[2022-12-11 13:15] LABS: African American GFR (CKD) >90 (>60 ml/min/1.73 sqM); Non-African American GFR(CKD) >90 (>60 ml/min/1.73 sqM)
--- NOTE | 2022-12-11 14:19 | P.PN ---
Subjective Progress Note Date: 12/11/22 Principal diagnosis: Left foot gangrene Patient seen and examined. Doing well after guillotine amputation. Denies any fevers, chills, chest pain or shortness of breath. Curious on plan for possible below-knee versus above-knee amputation. Objective - Vital Signs Vital signs: Vital Signs Temp 97.8 F 12/11/22 07:23 Pulse 74 12/11/22 07:23 Resp 18 12/11/22 09:17 BP 116/77 12/11/22 07:23 Pulse Ox 100 12/11/22 07:23 FiO2 Intake & Output 12/10/22 12/11/22 12/11/22 18:59 06:59 18:59 Output Total 900 700 Balance -900 -700 Weight 60.781 kg Output: Urine 900 700 Other: Voiding Method Indwelling Catheter Indwelling Catheter Indwelling Catheter - Exam Left guillotine amputation site is clean, dry. Tissues appeared to have no evidence of infection or purulent drainage. Minimal tenderness to palpation. Right heel dressing in place. - Constitutional General appearance: Present: cooperative, disheveled - EENT Eyes: Present: PERRLA - Respiratory Respiratory: bilateral: CTA - Cardiovascular Rhythm: regular - Psychiatric Psychiatric: Present: A&O x's 3, appropriate affect, intact judgment & insight - Labs CBC & Chem 7: 12/10/22 05:42 12/11/22 12:28 Labs: Abnormal Lab Results - Last 24 Hours (Table) 12/10/22 12/10/22 12/11/22 Range/Units 16:21 21:40 06:18 Creatinine (0.66-1.25) mg/dL POC Glucose (mg/dL) 207 H 152 H 173 H (70-110) mg/dL 12/11/22 12/11/22 Range/Units 11:37 12:28 Creatinine 0.33 L (0.66-1.25) mg/dL POC Glucose (mg/dL) 214 H (70-110) mg/dL Microbiology - Last 24 Hours (Table) 12/08/22 20:30 Blood Culture - Preliminary Blood 12/08/22 20:45 Blood Culture - Preliminary Blood 12/08/22 19:27 Gram Stain - Preliminary Foot - Left Wound Culture - Preliminary Gram Neg Bacilli Gram Neg Bacilli#2 Assessment and Plan Assessment: Postoperative day #2 from guillotine left below-knee amputation Multiple pressure wounds, bilateral heel and sacral. Wet gangrene of left heel with gas found on imaging Bedbound History of stroke Tobacco abuse Diabetes Plan: Discussed with Dr. Zee for future plan which would likely be above-knee amputation due to nonambulatory status. He will likely need further debridement of his right heel as well which can be done at the same time as his amputation. Amputation likely to be scheduled early next week.
[2022-12-11 16:35] LABS: Glucose,Whole Blood 129 mg/dL (70-110)
--- NOTE | 2022-12-11 16:39 | P.PN ---
Subjective Progress Note Date: 12/11/22 CHIEF COMPLAINT: Sacral decub HISTORY OF PRESENT ILLNESS: The patient is a 62-year-old male with peripheral vascular occlusive disease and sacral ulcer. He is resting comfortably. No complaints overnight. REVIEW OF ORGAN SYSTEMS: CONSTITUTIONAL: No reports of fevers or chills. GI: Denies any blood in stools or constipation. PHYSICAL EXAM: VITAL SIGNS: Stable GENERAL: Well-developed pleasant and in no acute distress. HEENT: No scleral icterus. Extraocular movements grossly intact. Moist buccal mucosa. NECK: Supple without lymphadenopathy. CHEST: Unlabored respirations. Equal bilateral excursions. CARDIOVASCULAR: Regular rate and rhythm. Distal 2+ pulses. ABDOMEN: No peritonitis. MUSCULOSKELETAL: No clubbing edema. ASSESSMENT: 1. Sacral decubitis. PLAN: 1. Debridement of sacral decub 2. Recommend wound care center for chronic wound management. Objective - Vital Signs Vital signs: Vital Signs Temp 98.1 F 12/11/22 14:01 Pulse 69 12/11/22 14:01 Resp 18 12/11/22 14:01 BP 107/67 12/11/22 14:01 Pulse Ox 99 12/11/22 14:01 FiO2 Intake & Output 12/10/22 12/11/22 12/11/22 18:59 06:59 18:59 Output Total 900 700 Balance -900 -700 Weight 60.781 kg Output: Urine 900 700 Other: Voiding Method Indwelling Catheter Indwelling Catheter Indwelling Catheter - Labs CBC & Chem 7: 12/10/22 05:42 12/11/22 12:28 Labs: Abnormal Lab Results - Last 24 Hours (Table) 12/10/22 12/11/22 12/11/22 Range/Units 21:40 06:18 11:37 Creatinine (0.66-1.25) mg/dL POC Glucose (mg/dL) 152 H 173 H 214 H (70-110) mg/dL 12/11/22 12/11/22 Range/Units 12:28 16:34 Creatinine 0.33 L (0.66-1.25) mg/dL POC Glucose (mg/dL) 129 H (70-110) mg/dL Microbiology - Last 24 Hours (Table) 12/08/22 19:27 Gram Stain - Preliminary Foot - Left Wound Culture - Preliminary Proteus mirabilis Gram Neg Bacilli 12/08/22 20:30 Blood Culture - Preliminary Blood 12/08/22 20:45 Blood Culture - Preliminary Blood
[2022-12-11] MEDS: PIPERACILLIN-TAZOBACTAM 3.375 GM in SODIUM CHLORIDE 0.9% 100 ML IVPB SCH (17:30)
--- NOTE | 2022-12-11 20:01 | P.PN ---
Progress Note - Text Progress Note Date: 12/11/22 Chief Complaint: Multiple wounds This is a 62-year-old patient, follows with Dr. Mendez. Chronic stable medical conditions include ADHD, herniated disc lower back, smoker. Patient presents with worsening wound in the sacrum, both the heels. Some pain is present. Having fevers at home. Decreased appetite. Bowels are okay. Does smoke a few cigarettes a day. Has a home care nurse comes on every 3 days. Because of worsening wound patient is brought to the ER. Son at the bedside. Patient non-ambulatory. December 10: Patient underwent left foot amputation by Dr. Zee yesterday. She wanted surgery to at the sacral wound. Pain control. IV Unasyn. IV vancomycin . December 11: Laying in bed. Some pain at the operative site. Eating about 25-50%. Pending sacral decubitus debridement by surgery. Per Dr. Allen planning to proceed with above knee Amputation early next week. Including debridement of the right heel. Active Medications Acetaminophen (Acetaminophen Tab 325 Mg Tab) 650 mg PO Q6HR PRN PRN Reason: Mild Pain or Fever > 100.5 Hydrocodone Bitart/Acetaminophen (Hydrocodone/Apap 5-325mg 1 Each Tab) 1 each PO Q4HR PRN PRN Reason: Moderate Pain (Scale 4 to 6) Last Admin: 12/11/22 11:44 Dose: 1 each Albuterol/Ipratropium (Ipratropium-Albuterol 3 Ml Neb) 3 ml INHALATION RT-QID PRN PRN Reason: Shortness Of Breath Or Wheezing Amiodarone HCl (Amiodarone 200 Mg Tab) 200 mg PO DAILY [facility] Last Admin: 12/11/22 09:17 Dose: 200 mg Calcium Carbonate/Glycine (Calcium Carbonate 500 Mg Chewable) 1,000 mg PO TID PRN PRN Reason: Indigestion Dextrose/Water (Dextrose 50% Syringe 50 Ml) 25 ml IVP PER PROTOCOL PRN; Prot ocol PRN Reason: Hypoglycemia Dextrose/Water (Dextrose 50% Syringe 50 Ml) 50 ml IVP PER PROTOCOL PRN; Protocol PRN Reason: Hypoglycemia Folic Acid (Folic Acid 1 Mg Tab) 1 mg PO DAILY [facility] Last Admin: 12/11/22 09:17 Dose: 1 mg Gabapentin (Gabapentin 300 Mg Cap) 300 mg PO TID [facility] Last Admin: 12/11/22 17:30 Dose: 300 mg Sodium Chloride (Saline 0.9%) 1,000 mls @ 75 mls/hr IV .[id number] [facility] Last Admin: 12/10/22 22:26 Dose: 75 mls/hr Piperacillin Sod/Tazobactam (Sod 3.375 gm/ Sodium Chloride) 100 mls @ 25 mls/hr IVPB Q8HR [facility]; Protocol Last Admin: 12/11/22 17:30 Dose: 25 mls/hr Insulin Aspart (Insulin Aspart (Novolog) 100 Unit/Ml Vial) 0 unit SQ ACHS [facility]; Protocol Last Admin: 12/11/22 16:40 Dose: Not Given Lactulose (Lactulose 20 Gm/30 Ml Cup) 20 gm PO DAILY PRN PRN Reason: Constipation Linagliptin (Linagliptin 5 Mg Tablet) 5 mg PO HS@1999 [facility] Last Admin: 12/10/22 20:05 Dose: 5 mg Lorazepam (Lorazepam 0.5 Mg Tab) 0.5 mg PO Q6HR PRN PRN Reason: Anxiety Melatonin (Melatonin 5 Mg Tablet) 5 mg PO HS@1999 [facility] Last Admin: 12/10/22 20:05 Dose: 5 mg Metoprolol Tartrate (Metoprolol Tartrate 12.5 Mg Tab) 12.5 mg PO BID [facility] Last Admin: 12/11/22 09:16 Dose: 12.5 mg Morphine Sulfate (Morphine Sulfate 4 Mg/Ml Syringe) 4 mg IV Q4HR PRN PRN Reason: Severe Pain (Scale 7 to 10) Last Admin: 12/11/22 19:49 Dose: 4 mg Multivitamins (Multivitamins, Thera 1 Each Tab) 1 each PO DAILY [facility] Last Admin: 12/11/22 09:16 Dose: 1 each Naloxone HCl (Naloxone 0.4 Mg/Ml 1 Ml Vial) 0.2 mg IV Q2M PRN PRN Reason: Opioid Reversal Nicotine (Nicotine 7mg/24hr Patch) 1 patch TRANSDERM DAILY [facility] Last Admin: 12/11/22 09:16 Dose: 1 patch Ondansetron HCl (Ondansetron 4 Mg/2 Ml Vial) 4 mg IVP Q8HR PRN PRN Reason: Nausea And Vomiting Polyethylene Glycol (Polyethylene Glycol 3350 17 Gm Powd.Pack) 17 gm PO DAILY [facility] Last Admin: 12/11/22 09:17 Dose: Not Given Senna (Sennosides 8.6 Mg Tab) 8.6 mg PO DAILY [facility] Last Admin: 12/11/22 09:16 Dose: 8.6 mg Temazepam (Temazepam 15 Mg Cap) 15 mg PO HS PRN PRN Reason: Insomnia Past medical history to include: Diabetes, possible ADHD, chronic low back pain, herniated disc, atrial fibrillation. COPD. Social history: Son lives with the patient. 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 Smokes about a pack a day, now down to a few cigarettes a day. Alcohol occasionally. Physical examination: VITAL SIGNS: 97.8, 74, 18, 116/77, 100% room air GENERAL: laying in bed tired. Loss of muscle mass. Loss of subcutaneous fat. Prominent bones.. EYES: Pupils equal. Conjunctiva normal. HEENT: External appearance of nose and ears normal, oral cavity grossly normal. NECK: JVD not raised; masses not palpable. HEART: First and second heart sounds are normal; no edema. LUNGS: Respiratory rate normal; decreased breath sounds. ABDOMEN: Soft, nontender, liver spleen not palpable, no masses palpable. PSYCH: [Alert and oriented x3; mood and affect tired l. MUSCULOSKELETAL: Reduced muscle mass. Prominent bones. Left foot amputation with stump. NEUROLOGICAL: weakness lower extremity. Right foot drop. Dermatological: Sacral decub INVESTIGATIONS, reviewed in the clinical context: Wound culture: Proteus mirabilis. December 10: White count 7.8 hemoglobin 8.6 platelets 5:30 sodium 136 potassium 3.8 BUN 7 creatinine 0.29 White count 28.4 hemoglobin 9.8 platelets 736 sodium 128 potassium 4.5 BUN 14 creatinine 0.48 Lactic acid 3 albumin 2.8 Sacral and coccyx x-ray: Significant degree was ulcer 3 cm x 1 cm in depth. Focal ostial lyses at the sacrococcygeal junction. Suggestive of osteomyelitis. Assessment and plan: -Extensive decubitus ulcers including the right heel, left heel, sacrum/coccyx. acute osteomyelitis. Surrounding cellulitis. Vascular surgery and ID following -Gangrene of the left foot with acute osteomyelitis: Left foot amputation on December [address] Zee Wound care. IV Zosyn. Plan for extension to left above-knee amputation early next week. -Sepsis from above, POA -Acute osteomyelitis left heel: Status post amputation. IV Unasyn. IV vancomycin. -Paroxysmal atrial fibrillation: sinus rhythm Amiodarone. Lopressor. -Severe protein calorie malnutrition Supplementation added. -Diabetes mellitus type 2, chronically on insulin Follow Accu-Cheks. Januvia -COPD in a current smoker Bronchodilators as needed -Chronic nicotine dependence, cigarette smoker Nicotine patch -Chronic medical debility. Non-ambulatory -Severe protein calorie malnutrition. ensure supplement -Full code On IV Zosyn. Pending sacral wound debridement by Dr. Pabon. Also pending right heel debridement. Other medications to continue.
[2022-12-11 21:01] LABS: Glucose,Whole Blood 154 mg/dL (70-110)
[2022-12-11] MEDS: MELATONIN 5 MG TABLET PO SCH (21:55)
[2022-12-11] MEDS: LINAGLIPTIN 5 MG TABLET PO SCH (21:55)
[2022-12-11] MEDS: SODIUM CHLORIDE 0.9% 1,000 ML IV SCH (21:56)
[2022-12-12] MEDS: PIPERACILLIN-TAZOBACTAM 3.375 GM in SODIUM CHLORIDE 0.9% 100 ML IVPB SCH ×3 (01:14→18:42)
[2022-12-12] MEDS: MORPHINE SULFATE 4 MG/ML SYRINGE IV PRN ×5 (01:18→18:42)
[2022-12-12 06:18] LABS: Glucose,Whole Blood 128 mg/dL (70-110)
[2022-12-12] MEDS: INSULIN ASPART (NovoLOG) 100 UNIT/ML VIAL SQ SCH ×4 (06:53→21:06)
[2022-12-12] MEDS: SODIUM CHLORIDE 0.9% 1,000 ML IV SCH ×2 (06:53→21:07)
[2022-12-12] MEDS: GABAPENTIN 300 MG CAP PO SCH ×3 (08:42→22:21)
[2022-12-12] MEDS: NICOTINE 7MG/24HR PATCH TRANSDERM SCH (08:42)
[2022-12-12] MEDS: AMIODARONE 200 MG TAB PO SCH (08:42)
[2022-12-12] MEDS: METOPROLOL TARTRATE 12.5 MG TAB PO SCH ×2 (08:42→21:06)
[2022-12-12] MEDS: FOLIC ACID 1 MG TAB PO SCH (08:42)
[2022-12-12] MEDS: polyethylene glycoL 3350 17 GM POWD.PACK PO SCH (08:42)
[2022-12-12] MEDS: SENNOSIDES 8.6 MG TAB PO SCH (08:42)
[2022-12-12] MEDS: MULTIVITAMINS, THERA 1 EACH TAB PO SCH (08:42)
[2022-12-12 11:51] LABS: Glucose,Whole Blood 162 mg/dL (70-110)
[2022-12-12] MEDS: HYDROcodone/APAP 5-325MG 1 EACH TAB PO PRN ×3 (12:43→21:06)
--- NOTE | 2022-12-12 15:30 | P.PN ---
Subjective Progress Note Date: 12/12/22 CHIEF COMPLAINT: Sacral decub HISTORY OF PRESENT ILLNESS: The patient is a 62-year-old male with peripheral vascular occlusive disease and sacral ulcer. He is resting comfortably. No complaints overnight. REVIEW OF ORGAN SYSTEMS: CONSTITUTIONAL: No reports of fevers or chills. GI: Denies any blood in stools or constipation. PHYSICAL EXAM: VITAL SIGNS: Stable GENERAL: Well-developed pleasant and in no acute distress. HEENT: No scleral icterus. Extraocular movements grossly intact. Moist buccal mucosa. NECK: Supple without lymphadenopathy. CHEST: Unlabored respirations. Equal bilateral excursions. CARDIOVASCULAR: Regular rate and rhythm. Distal 2+ pulses. ABDOMEN: No peritonitis. MUSCULOSKELETAL: No clubbing edema. SKIN: Sacral decubitus ulcer. ASSESSMENT: 1. Sacral decubitis. PLAN: 1. Recommend antibiotics 2. Debridement of scral ulcer tomorrow. 3. NPO after midnight. Objective - Vital Signs Vital signs: Vital Signs Temp 98.5 F 12/12/22 14:28 Pulse 66 12/12/22 14:28 Resp 18 12/12/22 14:28 BP 105/68 12/12/22 14:28 Pulse Ox 96 12/12/22 14:28 FiO2 Intake & Output 12/11/22 12/12/22 12/12/22 18:59 06:59 18:59 Output Total 1000 1000 Balance -1000 -1000 Output: Urine 1000 1000 Other: Voiding Method Indwelling Catheter Indwelling Catheter Indwelling Catheter - Labs CBC & Chem 7: 12/10/22 05:42 12/11/22 12:28 Labs: Abnormal Lab Results - Last 24 Hours (Table) 12/11/22 12/11/22 12/12/22 Range/Units 16:34 20:59 06:17 POC Glucose (mg/dL) 129 H 154 H 128 H (70-110) mg/dL 12/12/22 Range/Units 11:49 POC Glucose (mg/dL) 162 H (70-110) mg/dL Microbiology - Last 24 Hours (Table) 12/08/22 20:30 Blood Culture - Preliminary Blood 12/08/22 20:45 Blood Culture - Preliminary Blood 12/08/22 19:27 Gram Stain - Preliminary Foot - Left Wound Culture - Preliminary Proteus mirabilis Gram Neg Bacilli
[2022-12-12 16:44] LABS: Glucose,Whole Blood 154 mg/dL (70-110)
--- NOTE | 2022-12-12 16:48 | P.PN ---
Progress Note - Text Progress Note Date: 12/12/22 Chief Complaint: Multiple wounds This is a 62-year-old patient, follows with Dr. Mendez. Chronic stable medical conditions include ADHD, herniated disc lower back, smoker. Patient presents with worsening wound in the sacrum, both the heels. Some pain is present. Having fevers at home. Decreased appetite. Bowels are okay. Does smoke a few cigarettes a day. Has a home care nurse comes on every 3 days. Because of worsening wound patient is brought to the ER. Son at the bedside. Patient non-ambulatory. December 10: Patient underwent left foot amputation by Dr. Zee yesterday. She wanted surgery to at the sacral wound. Pain control. IV Unasyn. IV vancomycin . December 11: Laying in bed. Some pain at the operative site. Eating about 25-50%. Pending sacral decubitus debridement by surgery. Per Dr. Allen planning to proceed with above knee Amputation early next week. Including debridement of the right heel. December 12: Pain control. Discussed with patient. Pending sacral decubitus debridement by surgery. Per Dr. Allen planning to proceed with above knee Amputation early next week. Including debridement of the right heel. Eating some. Active Medications Acetaminophen (Acetaminophen Tab 325 Mg Tab) 650 mg PO Q6HR PRN PRN Reason: Mild Pain or Fever > 100.5 Hydrocodone Bitart/Acetaminophen (Hydrocodone/Apap 5-325mg 1 Each Tab) 1 each PO Q4HR PRN PRN Reason: Moderate Pain (Scale 4 to 6) Last Admin: 12/12/22 12:43 Dose: 1 each Albuterol/Ipratropium (Ipratropium-Albuterol 3 Ml Neb) 3 ml INHALATION RT-QID PRN PRN Reason: Shortness Of Breath Or Wheezing Amiodarone HCl (Amiodarone 200 Mg Tab) 200 mg PO DAILY [facility] Last Admin: 12/12/22 08:42 Dose: 200 mg Calcium Carbonate/Glycine (Calcium Carbonate 500 Mg Chewable) 1,000 mg PO TID PRN PRN Reason: Indigestion Dextrose/Water (Dextrose 50% Syringe 50 Ml) 25 ml IVP PER PROTOCOL PRN; Protocol PRN Reason: Hypoglycemia Dextrose/Water (Dextrose 50% Syringe 50 Ml) 50 ml IVP PER PROTOCOL PRN; Protocol PRN Reason: Hypoglycemia Folic Acid (Folic Acid 1 Mg Tab) 1 mg PO DAILY [facility] Last Admin: 12/12/22 08:42 Dose: 1 mg Gabapentin (Gabapentin 300 Mg Cap) 300 mg PO TID [facility] Last Admin: 12/12/22 16:37 Dose: 300 mg Sodium Chloride (Saline 0.9%) 1,000 mls @ 75 mls/hr IV .[id number] [facility] Last Admin: 12/12/22 06:53 Dose: 75 mls/hr Piperacillin Sod/Tazobactam (Sod 3.375 gm/ Sodium Chloride) 100 mls @ 25 mls/hr IVPB Q8HR [facility]; Protocol Last Admin: 12/12/22 08:42 Dose: 25 mls/hr Insulin Aspart (Insulin Aspart (Novolog) 100 Unit/Ml Vial) 0 unit SQ ACHS [facility]; Protocol Last Admin: 12/12/22 12:44 Dose: 3 unit Lactulose (Lactulose 20 Gm/30 Ml Cup) 20 gm PO DAILY PRN PRN Reason: Constipation Linagliptin (Linagliptin 5 Mg Tablet) 5 mg PO HS@1999 [facility] Last Admin: 12/11/22 21:55 Dose: 5 mg Lorazepam (Lorazepam 0.5 Mg Tab) 0.5 mg PO Q6HR PRN PRN Reason: Anxiety Melatonin (Melatonin 5 Mg Tablet) 5 mg PO HS@1999 [facility] Last Admin: 12/11/22 21:55 Dose: 5 mg Metoprolol Tartrate (Metoprolol Tartrate 12.5 Mg Tab) 12.5 mg PO BID [facility] Last Admin: 12/12/22 08:42 Dose: 12.5 mg Morphine Sulfate (Morphine Sulfate 4 Mg/Ml Syringe) 4 mg IV Q4HR PRN PRN Reason: Severe Pain (Scale 7 to 10) Last Admin: 12/12/22 14:06 Dose: 4 mg Multivitamins (Multivitamins, Thera 1 Each Tab) 1 each PO DAILY [facility] Last Admin: 12/12/22 08:42 Dose: 1 each Naloxone HCl (Naloxone 0.4 Mg/Ml 1 Ml Vial) 0.2 mg IV Q2M PRN PRN Reason: Opioid Reversal Nicotine (Nicotine 7mg/24hr Patch) 1 patch TRANSDERM DAILY [facility] Last Admin: 12/12/22 08:42 Dose: 1 patch Ondansetron HCl (Ondansetron 4 Mg/2 Ml Vial) 4 mg IVP Q8HR PRN PRN Reason: Nausea And Vomiting Polyethylene Glycol (Polyethylene Glycol 3350 17 Gm Powd.Pack) 17 gm PO DAILY [facility] Last Admin: 12/12/22 08:42 Dose: Not Given Senna (Sennosides 8.6 Mg Tab) 8.6 mg PO DAILY [facility] Last Admin: 12/12/22 08:42 Dose: 8.6 mg Temazepam (Temazepam 15 Mg Cap) 15 mg PO HS PRN PRN Reason: Insomnia Past medical history to include: Diabetes, possible ADHD, chronic low back pain, herniated disc, atrial fibrillation. COPD. Social history: Son lives with the patient. 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 Smokes about a pack a day, now down to a few cigarettes a day. Alcohol occasionally. Physical examination: VITAL SIGNS: 98.3, 70, 16, 113 with 71, 98% room air GENERAL: laying in bed tired. Loss of muscle mass. Loss of subcutaneous fat. Prominent bones.. EYES: Pupils equal. Conjunctiva normal. HEENT: External appearance of nose and ears normal, oral cavity grossly normal. NECK: JVD not raised; masses not palpable. HEART: First and second heart sounds are normal; no edema. LUNGS: Respiratory rate normal; decreased breath sounds. ABDOMEN: Soft, nontender, liver spleen not palpable, no masses palpable. PSYCH: [Alert and oriented x3; mood and affect tired l. MUSCULOSKELETAL: Reduced muscle mass. Prominent bones. Left foot amputation with stump. NEUROLOGICAL: weakness lower extremity. Right foot drop. Dermatological: Sacral decub INVESTIGATIONS, reviewed in the clinical context: Wound culture: Proteus mirabilis. December 10: White count 7.8 hemoglobin 8.6 platelets 5:30 sodium 136 potassium 3.8 BUN 7 creatinine 0.29 White count 28.4 hemoglobin 9.8 platelets 736 sodium 128 potassium 4.5 BUN 14 creatinine 0.48 Lactic acid 3 albumin 2.8 Sacral and coccyx x-ray: Significant degree was ulcer 3 cm x 1 cm in depth. Focal ostial lyses at the sacrococcygeal junction. Suggestive of osteomyelitis. Assessment and plan: -Extensive decubitus ulcers including the right heel, left heel, sacrum/coccyx. acute osteomyelitis. Surrounding cellulitis. Vascular surgery and ID following -Gangrene of the left foot with acute osteomyelitis: Left foot amputation on December [address] Zee Wound care. IV Zosyn. Plan for extension to left above-knee amputation early next week. -Sepsis from above, POA -Acute osteomyelitis left heel: Status post amputation. IV Unasyn. IV vancomycin. -Paroxysmal atrial fibrillation: sinus rhythm Amiodarone. Lopressor. -Severe protein calorie malnutrition Supplementation added. -Diabetes mellitus type 2, chronically on insulin Follow Accu-Cheks. Januvia -COPD in a current smoker Bronchodilators as needed -Chronic nicotine dependence, cigarette smoker Nicotine patch -Chronic medical debility. Non-ambulatory -Severe protein calorie malnutrition. ensure supplement -Full code On IV Zosyn. Pending sacral wound debridement by Dr. Pabon. Also pending right heel debridement and extension to left below-knee amputation by vascular surgery. Discussed with patient.
--- NOTE | 2022-12-12 20:09 | P.PN ---
Subjective Progress Note Date: 12/11/22 Principal diagnosis: Diabetic foot infection Patient is a 62-year-old male with a past medical history sniffing and for diabetes mellitus hypertension hyperlipidemia patient did have a bilateral heel pressure ulcer, patient has been diagnosed with a wet gangrene to the left foot in this patient who is status post left [id number] amputation completed on 12/09/2022 by vascular surgery On today's evaluation that is 12/11/2022, the patient remains to be afebrile dian ent is breathing comfortably on room air no chest pain shortness of breath or cough no abdominal pain or any worsening pain to the left ankle disarticulation site Objective - Vital Signs Vital signs: Vital Signs Temp 97.8 F 12/11/22 07:23 Pulse 74 12/11/22 07:23 Resp 18 12/11/22 09:17 BP 116/77 12/11/22 07:23 Pulse Ox 100 12/11/22 07:23 FiO2 Intake & Output 12/10/22 12/11/22 12/11/22 18:59 06:59 18:59 Output Total 900 700 Balance -900 -700 Weight 60.781 kg Output: Urine 900 700 Other: Voiding Method Indwelling Catheter Indwelling Catheter Indwelling Catheter - Exam GENERAL DESCRIPTION: An elderly male lying in bed in no distress RESPIRATORY SYSTEM: Unlabored breathing , decreased breath sounds at bases HEART: S1 S2 regular rate and rhythm , ABDOMEN: Soft , no tenderness EXTREMITIES: Left BKA stump is currently dressed - Labs CBC & Chem 7: 12/10/22 05:42 12/11/22 12:28 Labs: Abnormal Lab Results - Last 24 Hours (Table) 12/10/22 12/10/22 12/11/22 Range/Units 16:21 21:40 06:18 Creatinine (0.66-1.25) mg/dL POC Glucose (mg/dL) 207 H 152 H 173 H (70-110) mg/dL 12/11/22 12/11/22 Range/Units 11:37 12:28 Creatinine 0.33 L (0.66-1.25) mg/dL POC Glucose (mg/dL) 214 H (70-110) mg/dL Microbiology - Last 24 Hours (Table) 12/08/22 20:30 Blood Culture - Preliminary Blood 12/08/22 20:45 Blood Culture - Preliminary Blood 12/08/22 19:27 Gram Stain - Preliminary Foot - Left Wound Culture - Preliminary Gram Neg Bacilli Gram Neg Bacilli#2 Assessment and Plan (1) Gangrene of left foot Current Visit: Yes Status: Acute Code(s): I96 - GANGRENE, NOT ELSEWHERE CLASSIFIED SNOMED Code(s): 21687699542794608 (2) Diabetic foot infection Current Visit: Yes Status: Acute Code(s): E11.628 - TYPE 2 DIABETES MELLITUS WITH OTHER SKIN COMPLICATIONS; L08.9 - LOCAL INFECTION OF THE SKIN AND SUBCUTANEOUS TISSUE, UNSP SNOMED Code(s): 627240845 (3) Acute osteomyelitis of ankle or foot Current Visit: Yes Status: Acute Code(s): M86.179 - OTHER ACUTE OSTEOMYELITIS, UNSPECIFIED ANKLE AND FOOT SNOMED Code(s): 705716238 Plan: 1patient presented hospital with sepsis in this patient who did have fever tachycardia elevated white count elevated lactic acidosis left diabetic foot infection in this patient with the unstageable pressure ulcer with significant wet gangrene and will need to cover for the polymicrobial ceferino usually associated with diabetic foot infection 2-sacral pressure ulcer but no cellulitis 3Patient is status post left Ankle disarticulation and plan for the left below the knee amputation. 4local cultures are currently growing gram-negative we will discontinue vancomycin and Unasyn start the patient on Zosyn while waiting for the culture to be finalized
--- NOTE | 2022-12-12 20:11 | P.PN ---
Subjective Progress Note Date: 12/12/22 Principal diagnosis: Diabetic foot infection Patient is a 62-year-old male with a past medical history sniffing and for diabetes mellitus hypertension hyperlipidemia patient did have a bilateral heel pressure ulcer, patient has been diagnosed with a wet gangrene to the left foot in this patient who is status post left [id number] amputation completed on 12/09/2022 by vascular surgery On today's evaluation that is 12/12/2022 the patient remains to be afebrile patie nt is breathing comfortably on room air. Denies any chest pain or shortness of breath or cough no abdominal pain and no diarrhea Objective - Vital Signs Vital signs: Vital Signs Temp 98.5 F 12/12/22 14:28 Pulse 66 12/12/22 14:28 Resp 18 12/12/22 14:28 BP 105/68 12/12/22 14:28 Pulse Ox 96 12/12/22 14:28 FiO2 Intake & Output 12/12/22 12/12/22 12/13/22 06:59 18:59 06:59 Output Total 1000 1420 Balance -1000 -1420 Output: Urine 1000 1420 Other: Voiding Method Indwelling Catheter Indwelling Catheter - Exam GENERAL DESCRIPTION: An elderly male lying in bed in no distress RESPIRATORY SYSTEM: Unlabored breathing , decreased breath sounds at bases HEART: S1 S2 regular rate and rhythm , ABDOMEN: Soft , no tenderness EXTREMITIES: Left ankle disarticulation site is dressed Patient did have a stage III sacral pressure ulcer with minimal slough tissue no surrounding redness - Labs CBC & Chem 7: 12/10/22 05:42 12/11/22 12:28 Labs: Abnormal Lab Results - Last 24 Hours (Table) 12/11/22 12/12/22 12/12/22 Range/Units 20:59 06:17 11:49 POC Glucose (mg/dL) 154 H 128 H 162 H (70-110) mg/dL 12/12/22 Range/Units 16:42 POC Glucose (mg/dL) 154 H (70-110) mg/dL Microbiology - Last 24 Hours (Table) 12/08/22 20:30 Blood Culture - Preliminary Blood 12/08/22 20:45 Blood Culture - Preliminary Blood Assessment and Plan (1) Gangrene of left foot Current Visit: Yes Status: Acute Code(s): I96 - GANGRENE, NOT ELSEWHERE CLASSIFIED SNOMED Code(s): 75804041292182424 (2) Diabetic foot infection Current Visit: Yes Status: Acute Code(s): E11.628 - TYPE 2 DIABETES MELLITUS WITH OTHER SKIN COMPLICATIONS; L08.9 - LOCAL INFECTION OF THE SKIN AND SUBCUTANEOUS TISSUE, UNSP SNOMED Code(s): 811790762 (3) Acute osteomyelitis of ankle or foot Current Visit: Yes Status: Acute Code(s): M86.179 - OTHER ACUTE OSTEOMYELITIS, UNSPECIFIED ANKLE AND FOOT SNOMED Code(s): 955282142 (4) Stage III pressure ulcer of sacral region Current Visit: No Status: Acute Code(s): L89.153 - PRESSURE ULCER OF SACRAL REGION, STAGE 3 SNOMED Code(s): 43808715642699 Plan: 1patient presented hospital with sepsis in this patient who did have fever tachycardia elevated white count elevated lactic acidosis left diabetic foot infection in this patient with the unstageable pressure ulcer with significant wet gangrene and will need to cover for the polymicrobial ceferino usually associated with diabetic foot infection 2-sacral pressure ulcer but no cellulitis 3Patient is status post left Ankle disarticulation and plan for the left below the knee amputation. 4Local cultures currently growing Proteus which is a sensitive pathogen there is also gram-negative with ID sensitivities pending we will continue patient on Zosyn. 5-Patient with a stage III sacral pressure ulcer with slough tissue local care has been switched over to Medihoney followed by moist dressing and keep the area of the pressure discussed with the RN Time with Patient: Less than 30
[2022-12-12 20:43] LABS: Glucose,Whole Blood 163 mg/dL (70-110)
[2022-12-12] MEDS: MELATONIN 5 MG TABLET PO SCH (21:05)
[2022-12-12] MEDS: LINAGLIPTIN 5 MG TABLET PO SCH (21:05)
[2022-12-13] MEDS: PIPERACILLIN-TAZOBACTAM 3.375 GM in SODIUM CHLORIDE 0.9% 100 ML IVPB SCH ×4 (00:41→23:42)
[2022-12-13] MEDS: MORPHINE SULFATE 4 MG/ML SYRINGE IV PRN ×5 (00:41→19:42)
[2022-12-13 05:10] LABS: HCT 27.9 % (39.0-53.0); HGB 8.7 gm/dL (13.0-17.5); Hypochromasia Moderate; MCH 24.7 pg (25.0-35.0); MCHC 31.1 g/dL (31.0-37.0); MCV 79.6 fL (80.0-100.0); Platelet Count 451 k/uL (150-450); RBC 3.51 m/uL (4.30-5.90); RDW 15.3 % (11.5-15.5)
[2022-12-13 05:15] LABS: ALT 19 U/L (4-49); AST 29 U/L (17-59); African American GFR (CKD) >90 (>60 ml/min/1.73 sqM); Albumin 1.9 g/dL (3.5-5.0); Albumin/Globulin Ratio 0.5; Alkaline Phosphatase 82 U/L (38-126); Anion Gap 4 mmol/L; Blood Urea Nitrogen 7 mg/dL (9-20); Calcium 7.4 mg/dL (8.4-10.2); Carbon Dioxide 24 mmol/L (22-30); Chloride 108 mmol/L (98-107); Globulin 3.7 g/dL; Glucose 119 mg/dL (74-99); Non-African American GFR(CKD) >90 (>60 ml/min/1.73 sqM); Potassium 4.7 mmol/L (3.5-5.1); Sodium 136 mmol/L (137-145); Total Bilirubin 0.3 mg/dL (0.2-1.3); Total Protein 5.6 g/dL (6.3-8.2)
[2022-12-13 05:48] LABS: Lymphocytes # (M) 1.77 k/uL (1.0-4.8); Monocytes # (M) 0.27 k/uL (0-1.0); Neutrophils # (M) 4.56 k/uL (1.3-7.7); Neutrophils % (M) 67 %; Nucleated Red Blood Cells 1 /100 WBC (0-0); Total Cells Counted 100; WBC 6.8 k/uL (3.8-10.6)
[2022-12-13 05:55] LABS: Glucose,Whole Blood 111 mg/dL (70-110)
[2022-12-13] MEDS: INSULIN ASPART (NovoLOG) 100 UNIT/ML VIAL SQ SCH ×4 (06:04→20:27)
[2022-12-13] MEDS: SODIUM CHLORIDE 0.9% 1,000 ML IV SCH ×2 (08:28→23:41)
[2022-12-13] MEDS: FOLIC ACID 1 MG TAB PO SCH (08:32)
[2022-12-13] MEDS: polyethylene glycoL 3350 17 GM POWD.PACK PO SCH (08:32)
[2022-12-13] MEDS: MULTIVITAMINS, THERA 1 EACH TAB PO SCH (08:32)
[2022-12-13] MEDS: SENNOSIDES 8.6 MG TAB PO SCH (08:32)
[2022-12-13] MEDS: METOPROLOL TARTRATE 12.5 MG TAB PO SCH ×2 (09:45→20:26)
[2022-12-13] MEDS: AMIODARONE 200 MG TAB PO SCH (09:45)
[2022-12-13] MEDS: GABAPENTIN 300 MG CAP PO SCH ×3 (09:45→20:27)
--- NOTE | 2022-12-13 10:16 | P.PN ---
Subjective Progress Note Date: 12/13/22 Status post guillotine amputation left lower extremity at the distal tibial level. Objective - Vital Signs Vital signs: Vital Signs Temp 98.3 F 12/13/22 07:04 Pulse 68 12/13/22 07:04 Resp 12 12/13/22 07:04 BP 125/75 12/13/22 07:04 Pulse Ox 99 12/13/22 00:37 FiO2 Intake & Output 12/12/22 12/13/22 12/13/22 18:59 06:59 18:59 Output Total 1420 600 Balance -1420 -600 Output: Urine 1420 600 Other: Voiding Method Indwelling Catheter Indwelling Catheter # Voids 1 - Exam Patient is awake, alert and in no apparent distress. The patient's calf is soft and nontender to palpation. I discussed with the patient the possibility of below the knee versus above the amputation. It is certainly more desirable to maintain integrity of the knee and I would anticipate below the knee amputation would heal given the fact that his calf is nontender at this time. Timing of surgery is most likely Tuesday of this week. Patient was informed of same. All questions were answered to patient's satisfaction. - Labs CBC & Chem 7: 12/13/22 04:14 12/13/22 04:14 Labs: Abnormal Lab Results - Last 24 Hours (Table) 12/12/22 12/12/22 12/12/22 Range/Units 11:49 16:42 20:42 RBC (4.30-5.90) m/uL Hgb (13.0-17.5) gm/dL Hct (39.0-53.0) % MCV (80.0-100.0) fL MCH (25.0-35.0) pg Plt Count (150-450) k/uL Nucleated RBCs (0-0) /100 WBC Sodium (137-145) mmol/L Chloride (98-107) mmol/L BUN (9-20) mg/dL Creatinine (0.66-1.25) mg/dL Glucose (74-99) mg/dL POC Glucose (mg/dL) 162 H 154 H 163 H (70-110) mg/dL Calcium (8.4-10.2) mg/dL Total Protein (6.3-8.2) g/dL Albumin (3.5-5.0) g/dL 12/13/22 12/13/22 12/13/22 Range/Units 04:14 04:14 05:53 RBC 3.51 L (4.30-5.90) m/uL Hgb 8.7 L (13.0-17.5) gm/dL Hct 27.9 L (39.0-53.0) % MCV 79.6 L (80.0-100.0) fL MCH 24.7 L (25.0-35.0) pg Plt Count 451 H (150-450) k/uL Nucleated RBCs 1 H (0-0) /100 WBC Sodium 136 L (137-145) mmol/L Chloride 108 H (98-107) mmol/L BUN 7 L (9-20) mg/dL Creatinine 0.38 L (0.66-1.25) mg/dL Glucose 119 H (74-99) mg/dL POC Glucose (mg/dL) 111 H (70-110) mg/dL Calcium 7.4 L (8.4-10.2) mg/dL Total Protein 5.6 L (6.3-8.2) g/dL Albumin 1.9 L (3.5-5.0) g/dL Assessment and Plan Assessment: Status post left below the knee amputation (guillotine type). Need for conversion to formal below the knee versus above the knee amputation. Plan: We'll tentatively schedule surgery for December 15. Time with Patient: Less than 30
[2022-12-13] MEDS: NICOTINE 7MG/24HR PATCH TRANSDERM SCH (10:17)
--- NOTE | 2022-12-13 10:33 | P.PN ---
Subjective Progress Note Date: 12/13/22 Patient seen and examined 840AM CHIEF COMPLAINT: Sacral decub HISTORY OF PRESENT ILLNESS: Patient scheduled for debridement of sacral decub today. Patient also followed by vascular surgery for possible low versus above left knee amputation on December 15. Afebrile. WBC 6.8 Hgb 8.7 platelets 451 potassium 4.7 creatinine 0.38 sodium 136 PHYSICAL EXAM: VITAL SIGNS: Reviewed. GENERAL: Well-developed in no acute distress. ABDOMEN: Soft. Nondistended. Nontender. NEUROLOGIC: Alert and oriented. Cranial nerves II through XII grossly intact. ASSESSMENT: 1. Sacral decubitus ulcer PLAN: -Patient scheduled for debridement of sacral ulcer today -Keep patient nothing by mouth Physician [employer] Associate note has been reviewed by physician. Signing provider agrees with the documented findings, assessment, and plan of care. Objective - Vital Signs Vital signs: Vital Signs Temp 98.3 F 12/13/22 07:04 Pulse 68 12/13/22 07:04 Resp 16 12/13/22 10:05 BP 125/75 12/13/22 07:04 Pulse Ox 99 12/13/22 00:37 FiO2 Intake & Output 12/12/22 12/13/22 12/13/22 18:59 06:59 18:59 Output Total 1420 600 Balance -1420 -600 Output: Urine 1420 600 Other: Voiding Method Indwelling Catheter Indwelling Catheter Indwelling Catheter # Voids 1 # Bowel Movements 1 - Labs CBC & Chem 7: 12/13/22 04:14 12/13/22 04:14 Labs: Abnormal Lab Results - Last 24 Hours (Table) 12/12/22 12/12/22 12/12/22 Range/Units 11:49 16:42 20:42 RBC (4.30-5.90) m/uL Hgb (13.0-17.5) gm/dL Hct (39.0-53.0) % MCV (80.0-100.0) fL MCH (25.0-35.0) pg Plt Count (150-450) k/uL Nucleated RBCs (0-0) /100 WBC Sodium (137-145) mmol/L Chloride (98-107) mmol/L BUN (9-20) mg/dL Creatinine (0.66-1.25) mg/dL Glucose (74-99) mg/dL POC Glucose (mg/dL) 162 H 154 H 163 H (70-110) mg/dL Calcium (8.4-10.2) mg/dL Total Protein (6.3-8.2) g/dL Albumin (3.5-5.0) g/dL 12/13/22 12/13/22 12/13/22 Range/Units 04:14 04:14 05:53 RBC 3.51 L (4.30-5.90) m/uL Hgb 8.7 L (13.0-17.5) gm/dL Hct 27.9 L (39.0-53.0) % MCV 79.6 L (80.0-100.0) fL MCH 24.7 L (25.0-35.0) pg Plt Count 451 H (150-450) k/uL Nucleated RBCs 1 H (0-0) /100 WBC Sodium 136 L (137-145) mmol/L Chloride 108 H (98-107) mmol/L BUN 7 L (9-20) mg/dL Creatinine 0.38 L (0.66-1.25) mg/dL Glucose 119 H (74-99) mg/dL POC Glucose (mg/dL) 111 H (70-110) mg/dL Calcium 7.4 L (8.4-10.2) mg/dL Total Protein 5.6 L (6.3-8.2) g/dL Albumin 1.9 L (3.5-5.0) g/dL
[2022-12-13 11:27] LABS: Glucose,Whole Blood 131 mg/dL (70-110)
--- NOTE | 2022-12-13 14:06 | P.PN ---
Subjective Progress Note Date: 12/13/22 This is a 62-year-old patient, follows with Dr. Mendez. Chronic stable medical conditions include ADHD, herniated disc lower back, smoker. Patient presents with worsening wound in the sacrum, both the heels. Some pain is present. Having fevers at home. Decreased appetite. Bowels are okay. Does smoke a few cigarettes a day. Has a home care nurse comes on every 3 days. Because of worsening wound patient is brought to the ER. Son at the bedside. Patient non-ambulatory. December 10: Patient underwent left foot amputation by Dr. Zee yesterday. She wanted surgery to at the sacral wound. Pain control. IV Unasyn. IV vancomycin. December 11: Laying in bed. Some pain at the operative site. Eating about 25-50%. Pending sacral decubitus debridement by surgery. Per Dr. Allen planning to proceed with above knee Amputation early next week. Including debridement of the right heel. December 12: Pain control. Discussed with patient. Pending sacral decubitus debridement by surgery. Per Dr. Allen planning to proceed with above knee Amputation early next week. Including debridement of the right heel. Eating some. 12/13. Patient seen and examined. No acute issues overnight REVIEW OF SYSTEMS: CONSTITUTIONAL: No fever, no malaise,. CARDIOVASCULAR: No chest pain, no palpitations, no syncope. PULMONARY: No shortness of breath, no cough, GASTROINTESTINAL: No diarrhea, no nausea, no vomiting, no abdominal pain. NEUROLOGICAL: No headaches, no weakness, PHYSICAL EXAMINATION: GENERAL: The patient is alert and oriented x3, not in any acute distress. Well developed, well nourished. HEENT: Pupils are round and equally reacting to light. EOMI. No scleral icterus. No conjunctival pallor. Normocephalic, atraumatic. No pharyngeal erythema. No thyromegaly. CARDIOVASCULAR: S1 and S2 present. No murmurs, rubs, or gallops. PULMONARY: Chest is clear to auscultation, no wheezing or crackles. ABDOMEN: Soft, nontender, nondistended, normoactive bowel sounds. No palpable organomegaly. MUSCULOSKELETAL: Left leg bandaged EXTREMITIES: No cyanosis, clubbing, or pedal edema. NEUROLOGICAL: Gross neurological examination did not reveal any focal deficits. SKIN: No rashes. Assessment and plan -Extensive decubitus ulcers including the right heel, left heel, sacrum/coccyx. acute osteomyelitis. Surrounding cellulitis. Vascular surgery and ID following Pending sacral wound debridement by Dr. Pabon pending right heel debridement and extension to left below-knee amputation by vascular surgery -Gangrene of the left foot with acute osteomyelitis: Left foot amputation on December [address] Zee Wound care. IV Zosyn. Plan for extension to left above-knee amputation early next week. -Sepsis from above, POA -Acute osteomyelitis left heel: Status post amputation. Continue IV Zosyn -Paroxysmal atrial fibrillation: sinus rhythm Amiodarone. Lopressor. -Severe protein calorie malnutrition Supplementation added. -Diabetes mellitus type 2, chronically on insulin Follow Accu-Cheks. Januvia -COPD in a current smoker Bronchodilators as needed -Chronic nicotine dependence, cigarette smoker Nicotine patch -Chronic medical debility. Non-ambulatory -Severe protein calorie malnutrition. ensure supplement Labs and medication were reviewed.. Continue same treatment. Continue with symptomatic treatment. Resume home medication. Monitor labs and vitals. DVT and GI prophylaxis. Further recommendations as per clinical course of the patient Objective - Vital Signs Vital signs: Vital Signs Temp 98.3 F 12/13/22 07:04 Pulse 68 12/13/22 07:04 Resp 12 12/13/22 10:31 BP 125/75 12/13/22 07:04 Pulse Ox 99 12/13/22 00:37 FiO2 Intake & Output 12/12/22 12/13/22 12/13/22 18:59 06:59 18:59 Output Total 1420 600 Balance -1420 -600 Output: Urine 1420 600 Other: Voiding Method Indwelling Catheter Indwelling Catheter Incontinent Indwelling Catheter # Voids 1 # Bowel Movements 1 - Labs CBC & Chem 7: 12/13/22 04:14 12/13/22 04:14 Labs: Abnormal Lab Results - Last 24 Hours (Table) 12/12/22 12/12/22 12/12/22 Range/Units 11:49 16:42 20:42 RBC (4.30-5.90) m/uL Hgb (13.0-17.5) gm/dL Hct (39.0-53.0) % MCV (80.0-100.0) fL MCH (25.0-35.0) pg Plt Count (150-450) k/uL Nucleated RBCs (0-0) /100 WBC Sodium (137-145) mmol/L Chloride (98-107) mmol/L BUN (9-20) mg/dL Creatinine (0.66-1.25) mg/dL Glucose (74-99) mg/dL POC Glucose (mg/dL) 162 H 154 H 163 H (70-110) mg/dL Calcium (8.4-10.2) mg/dL Total Protein (6.3-8.2) g/dL Albumin (3.5-5.0) g/dL 12/13/22 12/13/22 12/13/22 Range/Units 04:14 04:14 05:53 RBC 3.51 L (4.30-5.90) m/uL Hgb 8.7 L (13.0-17.5) gm/dL Hct 27.9 L (39.0-53.0) % MCV 79.6 L (80.0-100.0) fL MCH 24.7 L (25.0-35.0) pg Plt Count 451 H (150-450) k/uL Nucleated RBCs 1 H (0-0) /100 WBC Sodium 136 L (137-145) mmol/L Chloride 108 H (98-107) mmol/L BUN 7 L (9-20) mg/dL Creatinine 0.38 L (0.66-1.25) mg/dL Glucose 119 H (74-99) mg/dL POC Glucose (mg/dL) 111 H (70-110) mg/dL Calcium 7.4 L (8.4-10.2) mg/dL Total Protein 5.6 L (6.3-8.2) g/dL Albumin 1.9 L (3.5-5.0) g/dL
[2022-12-13 17:01] LABS: Glucose,Whole Blood 199 mg/dL (70-110)
[2022-12-13] MEDS: MELATONIN 5 MG TABLET PO SCH (19:24)
[2022-12-13] MEDS: LINAGLIPTIN 5 MG TABLET PO SCH (19:24)
[2022-12-13 20:26] LABS: Glucose,Whole Blood 206 mg/dL (70-110)
[2022-12-13] MEDS: HYDROcodone/APAP 5-325MG 1 EACH TAB PO PRN (22:08)
[2022-12-14] MEDS: MORPHINE SULFATE 4 MG/ML SYRINGE IV PRN ×6 (02:42→22:38)
[2022-12-14] MEDS: HYDROcodone/APAP 5-325MG 1 EACH TAB PO PRN ×5 (05:16→20:49)
[2022-12-14 05:37] LABS: HGB 8.6 gm/dL (13.0-17.5); Hypochromasia Marked; MCH 24.3 pg (25.0-35.0); MCHC 29.7 g/dL (31.0-37.0); MCV 81.9 fL (80.0-100.0); Mean Platelet Volume 9.2; Platelet Count 465 k/uL (150-450); RBC 3.54 m/uL (4.30-5.90); RDW 15.7 % (11.5-15.5); WBC 6.8 k/uL (3.8-10.6)
[2022-12-14 05:50] LABS: Eosinophils # (M) 0.27 k/uL (0-0.7); Lymphocytes # (M) 2.18 k/uL (1.0-4.8); Metamyelocytes # (M) 0.07 k/uL (0); Metamyelocytes % 1 %; Monocytes # (M) 0.14 k/uL (0-1.0); Myelocytes # (M) 0.07 k/uL (0); Myelocytes % 1 %; Neutrophils # (M) 4.08 k/uL (1.3-7.7); Neutrophils % (M) 60 %; Nucleated Red Blood Cells 0 /100 WBC (0-0); RBC Morphology Normal; Total Cells Counted 100
[2022-12-14 06:09] LABS: Glucose,Whole Blood 247 mg/dL (70-110)
[2022-12-14 06:20] LABS: African American GFR (CKD) >90 (>60 ml/min/1.73 sqM); Anion Gap 5 mmol/L; Blood Urea Nitrogen 7 mg/dL (9-20); Calcium 7.7 mg/dL (8.4-10.2); Carbon Dioxide 21 mmol/L (22-30); Chloride 114 mmol/L (98-107); Glucose 198 mg/dL (74-99); Non-African American GFR(CKD) >90 (>60 ml/min/1.73 sqM); Sodium 140 mmol/L (137-145)
[2022-12-14 06:32] LABS: Potassium 5.9 mmol/L (3.5-5.1)
[2022-12-14] MEDS: INSULIN ASPART (NovoLOG) 100 UNIT/ML VIAL SQ SCH ×4 (06:38→20:50)
[2022-12-14] MEDS: SENNOSIDES 8.6 MG TAB PO SCH (08:40)
[2022-12-14] MEDS: polyethylene glycoL 3350 17 GM POWD.PACK PO SCH (08:40)
[2022-12-14] MEDS: NICOTINE 7MG/24HR PATCH TRANSDERM SCH (08:40)
[2022-12-14] MEDS: FOLIC ACID 1 MG TAB PO SCH (08:40)
[2022-12-14] MEDS: AMIODARONE 200 MG TAB PO SCH (08:40)
[2022-12-14] MEDS: METOPROLOL TARTRATE 12.5 MG TAB PO SCH ×2 (08:40→20:49)
[2022-12-14] MEDS: MULTIVITAMINS, THERA 1 EACH TAB PO SCH (08:40)
[2022-12-14] MEDS: GABAPENTIN 300 MG CAP PO SCH ×3 (08:40→20:49)
[2022-12-14] MEDS: PIPERACILLIN-TAZOBACTAM 3.375 GM in SODIUM CHLORIDE 0.9% 100 ML IVPB SCH ×2 (09:59→16:05)
[2022-12-14] MEDS ORDERED: SODIUM ZIRCONIUM CYCLOSILICATE 10 GM PACKET PO ONE (10:24)
[2022-12-14] MEDS ORDERED: INSULIN REGULAR 100 UNIT/ML VIAL (IV) IV ONE (10:24)
[2022-12-14] MEDS ORDERED: DEXTROSE 50% SYRINGE 50 ML IVP ONE (10:24)
[2022-12-14] MEDS: LACTATED RINGERS 1,000 ML IV SCH (11:09)
[2022-12-14] MEDS: SODIUM CHLORIDE 0.9% 1,000 ML IV SCH (11:09)
[2022-12-14 11:24] LABS: Glucose,Whole Blood 132 mg/dL (70-110)
--- NOTE | 2022-12-14 13:16 | P.PN ---
Subjective Progress Note Date: 12/14/22 A shunt seen and examined today as a follow-up. He is without any acute changes. He is scheduled tomorrow for a left cnfti-gtv-qryb amputation. Patient states that he wants to be able to walk again 1 day. However patient has been bedridden for greater than 1 year. Physical therapy had seen patient initially on the and patient was a max to assist with transfer. Objective - Vital Signs Vital signs: Vital Signs Temp 98.3 F 12/14/22 06:55 Pulse 64 12/14/22 06:55 Resp 16 12/14/22 06:55 BP 129/74 12/14/22 06:55 Pulse Ox 99 12/14/22 06:55 FiO2 Intake & Output 12/13/22 12/14/22 12/14/22 18:59 06:59 18:59 Intake Total 630 Output Total 1900 2700 Balance -1270 -2700 Weight 60.781 kg Intake: Oral 630 Output: Urine 1900 2700 Other: Voiding Method Incontinent Indwelling Catheter # Bowel Movements 1 - Exam General appearance: The patient is alert, oriented, appears in no acute distress. HET: Head is normocephalic and atraumatic. Pupils are equal and reactive. Neck: Supple. Heart: Regular. Lungs: Equal expansion, normal respiratory effort. Abdomen: Soft, nondistended. Extremities: Left guillotine amputation with dressing clean dry and intact. Left heel ulcer without any purulent drainage, noted areas of eschar. Neurological: No focal deficits. Strength and sensation are grossly intact. - Labs CBC & Chem 7: 12/14/22 04:51 12/14/22 04:51 Labs: Abnormal Lab Results - Last 24 Hours (Table) 12/13/22 12/13/22 12/13/22 Range/Units 11:26 17:00 20:19 RBC (4.30-5.90) m/uL Hgb (13.0-17.5) gm/dL Hct (39.0-53.0) % MCH (25.0-35.0) pg MCHC (31.0-37.0) g/dL RDW (11.5-15.5) % Plt Count (150-450) k/uL Metamyelocytes # (Man) (0) k/uL Myelocytes # (Manual) (0) k/uL Potassium (3.5-5.1) mmol/L Chloride (98-107) mmol/L Carbon Dioxide (22-30) mmol/L BUN (9-20) mg/dL Creatinine (0.66-1.25) mg/dL Glucose (74-99) mg/dL POC Glucose (mg/dL) 131 H 199 H 206 H (70-110) mg/dL Calcium (8.4-10.2) mg/dL 12/14/22 12/14/22 12/14/22 Range/Units 04:51 04:51 06:07 RBC 3.54 L (4.30-5.90) m/uL Hgb 8.6 L (13.0-17.5) gm/dL Hct 29.0 L (39.0-53.0) % MCH 24.3 L (25.0-35.0) pg MCHC 29.7 L (31.0-37.0) g/dL RDW 15.7 H (11.5-15.5) % Plt Count 465 H (150-450) k/uL Metamyelocytes # (Man) 0.07 H (0) k/uL Myelocytes # (Manual) 0.07 H (0) k/uL Potassium 5.9 H (3.5-5.1) mmol/L Chloride 114 H (98-107) mmol/L Carbon Dioxide 21 L (22-30) mmol/L BUN 7 L (9-20) mg/dL Creatinine 0.42 L (0.66-1.25) mg/dL Glucose 198 H (74-99) mg/dL POC Glucose (mg/dL) 247 H (70-110) mg/dL Calcium 7.7 L (8.4-10.2) mg/dL Microbiology - Last 24 Hours (Table) 12/08/22 20:30 Blood Culture - Final Blood 12/08/22 20:45 Blood Culture - Final Blood Assessment and Plan Assessment: Postoperative day #5 from guillotine left below-knee amputation Multiple pressure wounds, bilateral heel and sacral. Wet gangrene of left heel with gas found on imaging Bedbound History of stroke Tobacco abuse Diabetes Plan: 1. Nothing by mouth after midnight 2. Discuss with physical therapy to reassess and evaluate patient to see if he is able to put any pressure have strength in that right lower extremity 3. Plan for fnyqb-fim-vjku amputation tomorrow. Again it was discussed between patient and Dr. Allen risk for infection of a below the knee amputation and it not healing compared to [id number] amputation, as patient is bedridden and has been present the last 1-2 years. Patient seemingly understands, and is willing to proceed with fksvc-sit-owmr amputation. Thank you for this consultation. The impression and plan of care has been dictated as directed. I performed a history and examination of this patient, discussed the same with the dictator. I agree with the dictator's note ,documented as a scribe. Any additional findings or plans will be noted.
--- NOTE | 2022-12-14 13:19 | P.PN ---
Subjective Progress Note Date: 12/14/22 This is a 62-year-old patient, follows with Dr. Mendez. Chronic stable medical conditions include ADHD, herniated disc lower back, smoker. Patient presents with worsening wound in the sacrum, both the heels. Some pain is present. Having fevers at home. Decreased appetite. Bowels are okay. Does smoke a few cigarettes a day. Has a home care nurse comes on every 3 days. Because of worsening wound patient is brought to the ER. Son at the bedside. Patient non-ambulatory. December 10: Patient underwent left foot amputation by Dr. Zee yesterday. She wanted surgery to at the sacral wound. Pain control. IV Unasyn. IV vancomycin. December 11: Laying in bed. Some pain at the operative site. Eating about 25-50%. Pending sacral decubitus debridement by surgery. Per Dr. Allen planning to proceed with above knee Amputation early next week. Including debridement of the right heel. December 12: Pain control. Discussed with patient. Pending sacral decubitus debridement by surgery. Per Dr. Allen planning to proceed with above knee Amputation early next week. Including debridement of the right heel. Eating some. 12/13. Patient seen and examined. No acute issues overnight 12/14. Patient seen and examined. Potassium level this morning is 5.9, hyperkalemia protocol initiated REVIEW OF SYSTEMS: CONSTITUTIONAL: No fever, no malaise,. CARDIOVASCULAR: No chest pain, no palpitations, no syncope. PULMONARY: No shortness of breath, no cough, GASTROINTESTINAL: No diarrhea, no nausea, no vomiting, no abdominal pain. NEUROLOGICAL: No headaches, no weakness, PHYSICAL EXAMINATION: GENERAL: The patient is alert and oriented x3, not in any acute distress. Well developed, well nourished. HEENT: Pupils are round and equally reacting to light. EOMI. No scleral icterus. No conjunctival pallor. Normocephalic, atraumatic. No pharyngeal erythema. No thyromegaly. CARDIOVASCULAR: S1 and S2 present. No murmurs, rubs, or gallops. PULMONARY: Chest is clear to auscultation, no wheezing or crackles. ABDOMEN: Soft, nontender, nondistended, normoactive bowel sounds. No palpable organomegaly. MUSCULOSKELETAL: Left leg bandaged EXTREMITIES: No cyanosis, clubbing, or pedal edema. NEUROLOGICAL: Gross neurological examination did not reveal any focal deficits. SKIN: No rashes. Assessment and plan -Extensive decubitus ulcers including the right heel, left heel, sacrum/coccyx. acute osteomyelitis. Surrounding cellulitis. Vascular surgery and ID following Continue sacral wound care pending right heel debridement and extension to left above-knee amputation by vascular surgery, scheduled for tomorrow -Gangrene of the left foot with acute osteomyelitis: Left foot amputation on December [address] Zee Wound care. IV Zosyn. Plan for extension to left above-knee amputation early next week. -Sepsis from above, POA -Acute osteomyelitis left heel: Status post amputation. Continue IV Zosyn -Paroxysmal atrial fibrillation: sinus rhythm Amiodarone. Lopressor. -Severe protein calorie malnutrition Supplementation added. -Diabetes mellitus type 2, chronically on insulin Follow Accu-Cheks. Januvia -COPD in a current smoker Bronchodilators as needed -Chronic nicotine dependence, cigarette smoker Nicotine patch -Chronic medical debility. Non-ambulatory -Severe protein calorie malnutrition. ensure supplement Hyperkalemia Hyperkalemia protocol initiated [facility] ordered Labs and medication were reviewed.. Continue same treatment. Continue with symptomatic treatment. Resume home medication. Monitor labs and vitals. DVT and GI prophylaxis. Further recommendations as per clinical course of the patient Objective - Vital Signs Vital signs: Vital Signs Temp 98.3 F 12/14/22 06:55 Pulse 64 12/14/22 09:41 Resp 16 12/14/22 06:55 BP 129/74 12/14/22 06:55 Pulse Ox 99 12/14/22 06:55 FiO2 Intake & Output 12/13/22 12/14/22 12/14/22 18:59 06:59 18:59 Intake Total 630 Output Total 1900 2700 Balance -1270 -2700 Weight 60.781 kg Intake: Oral 630 Output: Urine 1900 2700 Other: Voiding Method Incontinent Indwelling Catheter Indwelling Catheter # Bowel Movements 1 - Labs CBC & Chem 7: 12/14/22 04:51 12/14/22 04:51 Labs: Abnormal Lab Results - Last 24 Hours (Table) 12/13/22 12/13/22 12/13/22 Range/Units 11:26 17:00 20:19 RBC (4.30-5.90) m/uL Hgb (13.0-17.5) gm/dL Hct (39.0-53.0) % MCH (25.0-35.0) pg MCHC (31.0-37.0) g/dL RDW (11.5-15.5) % Plt Count (150-450) k/uL Metamyelocytes # (Man) (0) k/uL Myelocytes # (Manual) (0) k/uL Potassium (3.5-5.1) mmol/L Chloride (98-107) mmol/L Carbon Dioxide (22-30) mmol/L BUN (9-20) mg/dL Creatinine (0.66-1.25) mg/dL Glucose (74-99) mg/dL POC Glucose (mg/dL) 131 H 199 H 206 H (70-110) mg/dL Calcium (8.4-10.2) mg/dL 12/14/22 12/14/22 12/14/22 Range/Units 04:51 04:51 06:07 RBC 3.54 L (4.30-5.90) m/uL Hgb 8.6 L (13.0-17.5) gm/dL Hct 29.0 L (39.0-53.0) % MCH 24.3 L (25.0-35.0) pg MCHC 29.7 L (31.0-37.0) g/dL RDW 15.7 H (11.5-15.5) % Plt Count 465 H (150-450) k/uL Metamyelocytes # (Man) 0.07 H (0) k/uL Myelocytes # (Manual) 0.07 H (0) k/uL Potassium 5.9 H (3.5-5.1) mmol/L Chloride 114 H (98-107) mmol/L Carbon Dioxide 21 L (22-30) mmol/L BUN 7 L (9-20) mg/dL Creatinine 0.42 L (0.66-1.25) mg/dL Glucose 198 H (74-99) mg/dL POC Glucose (mg/dL) 247 H (70-110) mg/dL Calcium 7.7 L (8.4-10.2) mg/dL Microbiology - Last 24 Hours (Table) 12/08/22 20:30 Blood Culture - Final Blood 12/08/22 20:45 Blood Culture - Final Blood
--- NOTE | 2022-12-14 16:03 | P.PN ---
Subjective Progress Note Date: 12/13/22 Principal diagnosis: Diabetic foot infection Patient is a 62-year-old male with a past medical history sniffing and for diabetes mellitus hypertension hyperlipidemia patient did have a bilateral heel pressure ulcer, patient has been diagnosed with a wet gangrene to the left foot in this patient who is status post left [id number] amputation completed on 12/09/2022 by vascular surgery On today's evaluation that is 12/13/2022 the patient continues to be afebrile pat ient is breathing comfortably on room air. , The patient any chest pain or shortness of breath or cough no abdominal pain and no diarrhea, patient complaining of feeling hungry wants to eat Objective - Vital Signs Vital signs: Vital Signs Temp 98.3 F 12/13/22 07:04 Pulse 68 12/13/22 07:04 Resp 12 12/13/22 10:31 BP 125/75 12/13/22 07:04 Pulse Ox 99 12/13/22 00:37 FiO2 Intake & Output 12/12/22 12/13/22 12/13/22 18:59 06:59 18:59 Output Total 1420 600 Balance -1420 -600 Weight 60.781 kg Output: Urine 1420 600 Other: Voiding Method Indwelling Catheter Indwelling Catheter Incontinent Indwelling Catheter # Voids 1 # Bowel Movements 1 - Exam GENERAL DESCRIPTION: An elderly male lying in bed in no distress RESPIRATORY SYSTEM: Unlabored breathing , decreased breath sounds at bases HEART: S1 S2 regular rate and rhythm , ABDOMEN: Soft , no tenderness EXTREMITIES: Left ankle disarticulation site is dressed Patient did have a stage III sacral pressure ulcer with minimal slough tissue no surrounding redness - Labs CBC & Chem 7: 12/14/22 04:51 12/14/22 14:04 Labs: Abnormal Lab Results - Last 24 Hours (Table) 12/12/22 12/12/22 12/13/22 Range/Units 16:42 20:42 04:14 RBC 3.51 L (4.30-5.90) m/uL Hgb 8.7 L (13.0-17.5) gm/dL Hct 27.9 L (39.0-53.0) % MCV 79.6 L (80.0-100.0) fL MCH 24.7 L (25.0-35.0) pg Plt Count 451 H (150-450) k/uL Nucleated RBCs 1 H (0-0) /100 WBC Sodium (137-145) mmol/L Chloride (98-107) mmol/L BUN (9-20) mg/dL Creatinine (0.66-1.25) mg/dL Glucose (74-99) mg/dL POC Glucose (mg/dL) 154 H 163 H (70-110) mg/dL Calcium (8.4-10.2) mg/dL Total Protein (6.3-8.2) g/dL Albumin (3.5-5.0) g/dL 12/13/22 12/13/22 12/13/22 Range/Units 04:14 05:53 11:26 RBC (4.30-5.90) m/uL Hgb (13.0-17.5) gm/dL Hct (39.0-53.0) % MCV (80.0-100.0) fL MCH (25.0-35.0) pg Plt Count (150-450) k/uL Nucleated RBCs (0-0) /100 WBC Sodium 136 L (137-145) mmol/L Chloride 108 H (98-107) mmol/L BUN 7 L (9-20) mg/dL Creatinine 0.38 L (0.66-1.25) mg/dL Glucose 119 H (74-99) mg/dL POC Glucose (mg/dL) 111 H 131 H (70-110) mg/dL Calcium 7.4 L (8.4-10.2) mg/dL Total Protein 5.6 L (6.3-8.2) g/dL Albumin 1.9 L (3.5-5.0) g/dL Assessment and Plan (1) Gangrene of left foot Current Visit: Yes Status: Acute Code(s): I96 - GANGRENE, NOT ELSEWHERE CLASSIFIED SNOMED Code(s): 91335753129524935 (2) Diabetic foot infection Current Visit: Yes Status: Acute Code(s): E11.628 - TYPE 2 DIABETES MELLITUS WITH OTHER SKIN COMPLICATIONS; L08.9 - LOCAL INFECTION OF THE SKIN AND SUBCUTANEOUS TISSUE, UNSP SNOMED Code(s): 007900754 (3) Acute osteomyelitis of ankle or foot Current Visit: Yes Status: Acute Code(s): M86.179 - OTHER ACUTE OSTEOMYELITIS, UNSPECIFIED ANKLE AND FOOT SNOMED Code(s): 319537898 (4) Stage III pressure ulcer of sacral region Current Visit: No Status: Acute Code(s): L89.153 - PRESSURE ULCER OF SACRAL REGION, STAGE 3 SNOMED Code(s): 25782953349929 Plan: 1patient presented hospital with sepsis in this patient who did have fever tachycardia elevated white count elevated lactic acidosis left diabetic foot infection in this patient with the unstageable pressure ulcer with significant wet gangrene and will need to cover for the polymicrobial ceferino usually ass ociated with diabetic foot infection 2-sacral pressure ulcer but no cellulitis, local care to continue with the medahoney followed by moist dressing 3Patient is status post left Ankle disarticulation and plan for the left about the knee amputation. 4Local cultures currently growing Proteus which is a sensitive pathogen there is also gram-negative with ID sensitivities pending we will continue patient on Zosyn. Time with Patient: Less than 30
--- NOTE | 2022-12-14 16:05 | P.PN ---
Subjective Progress Note Date: 12/14/22 Principal diagnosis: Diabetic foot infection Patient is a 62-year-old male with a past medical history sniffing and for diabetes mellitus hypertension hyperlipidemia patient did have a bilateral heel pressure ulcer, patient has been diagnosed with a wet gangrene to the left foot in this patient who is status post left [id number] amputation completed on 12/09/2022 by vascular surgery On today's evaluation that is 12/14/2022 the patient denies any fever or any chil ls patient is breathing comfortably on room air, The patient denies any chest pain or shortness of breath or cough , the patient denies any nausea no vomiting no abdominal pain and no diarrhea, patient pain to the left ankle disarticulated site is controlled Objective - Vital Signs Vital signs: Vital Signs Temp 98.3 F 12/14/22 06:55 Pulse 64 12/14/22 09:41 Resp 16 12/14/22 06:55 BP 129/74 12/14/22 06:55 Pulse Ox 99 12/14/22 06:55 FiO2 Intake & Output 12/13/22 12/14/22 12/14/22 18:59 06:59 18:59 Intake Total 630 Output Total 1900 2700 Balance -1270 -2700 Weight 60.781 kg Intake: Oral 630 Output: Urine 1900 2700 Other: Voiding Method Incontinent Indwelling Catheter Indwelling Catheter # Bowel Movements 1 - Exam GENERAL DESCRIPTION: An elderly male lying in bed in no distress RESPIRATORY SYSTEM: Unlabored breathing , decreased breath sounds at bases HEART: S1 S2 regular rate and rhythm , ABDOMEN: Soft , no tenderness EXTREMITIES: Left ankle disarticulation site is dressed Patient did have a stage III sacral pressure ulcer with minimal slough tissue no surrounding redness - Labs CBC & Chem 7: 12/14/22 04:51 12/14/22 14:04 Labs: Abnormal Lab Results - Last 24 Hours (Table) 12/13/22 12/13/22 12/14/22 Range/Units 17:00 20:19 04:51 RBC 3.54 L (4.30-5.90) m/uL Hgb 8.6 L (13.0-17.5) gm/dL Hct 29.0 L (39.0-53.0) % MCH 24.3 L (25.0-35.0) pg MCHC 29.7 L (31.0-37.0) g/dL RDW 15.7 H (11.5-15.5) % Plt Count 465 H (150-450) k/uL Metamyelocytes # (Man) 0.07 H (0) k/uL Myelocytes # (Manual) 0.07 H (0) k/uL Potassium (3.5-5.1) mmol/L Chloride (98-107) mmol/L Carbon Dioxide (22-30) mmol/L BUN (9-20) mg/dL Creatinine (0.66-1.25) mg/dL Glucose (74-99) mg/dL POC Glucose (mg/dL) 199 H 206 H (70-110) mg/dL Calcium (8.4-10.2) mg/dL 12/14/22 12/14/22 12/14/22 Range/Units 04:51 06:07 11:23 RBC (4.30-5.90) m/uL Hgb (13.0-17.5) gm/dL Hct (39.0-53.0) % MCH (25.0-35.0) pg MCHC (31.0-37.0) g/dL RDW (11.5-15.5) % Plt Count (150-450) k/uL Metamyelocytes # (Man) (0) k/uL Myelocytes # (Manual) (0) k/uL Potassium 5.9 H (3.5-5.1) mmol/L Chloride 114 H (98-107) mmol/L Carbon Dioxide 21 L (22-30) mmol/L BUN 7 L (9-20) mg/dL Creatinine 0.42 L (0.66-1.25) mg/dL Glucose 198 H (74-99) mg/dL POC Glucose (mg/dL) 247 H 132 H (70-110) mg/dL Calcium 7.7 L (8.4-10.2) mg/dL Microbiology - Last 24 Hours (Table) 12/08/22 20:30 Blood Culture - Final Blood 12/08/22 20:45 Blood Culture - Final Blood Assessment and Plan (1) Gangrene of left foot Current Visit: Yes Status: Acute Code(s): I96 - GANGRENE, NOT ELSEWHERE CLASSIFIED SNOMED Code(s): 16373911936485060 (2) Diabetic foot infection Current Visit: Yes Status: Acute Code(s): E11.628 - TYPE 2 DIABETES MELLITUS WITH OTHER SKIN COMPLICATIONS; L08.9 - LOCAL INFECTION OF THE SKIN AND SUBCUTANEOUS TISSUE, UNSP SNOMED Code(s): 797689927 (3) Acute osteomyelitis of ankle or foot Current Visit: Yes Status: Acute Code(s): M86.179 - OTHER ACUTE OSTEOMYELITIS, UNSPECIFIED ANKLE AND FOOT SNOMED Code(s): 203581479 (4) Stage III pressure ulcer of sacral region Current Visit: No Status: Acute Code(s): L89.153 - PRESSURE ULCER OF SACRAL REGION, STAGE 3 SNOMED Code(s): 08604706792794 Plan: 1patient presented hospital with sepsis in this patient who did have fever tachycardia elevated white count elevated lactic acidosis left diabetic foot infection in this patient with the unstageable pressure ulcer with significant wet gangrene and will need to cover for the polymicrobial ceferino usually associated with diabetic foot infection 2-sacral pressure ulcer but no cellulitis, local care to continue with the medahoney followed by moist dressing 3Patient is status post left Ankle disarticulation and plan for the left about the knee amputation that has been scheduled for 12/15/2022 4Local cultures currently growing Proteus which is a sensitive pathogen there is also gram-negative with ID sensitivities still pending as of 12/14/2022, we will continue patient on Zosyn while waiting for sensitivities to finalize. Time with Patient: Less than 30
[2022-12-14 16:40] LABS: Glucose,Whole Blood 179 mg/dL (70-110)
[2022-12-14 20:37] LABS: Glucose,Whole Blood 202 mg/dL (70-110)
[2022-12-14] MEDS: LINAGLIPTIN 5 MG TABLET PO SCH (20:49)
[2022-12-14] MEDS: MELATONIN 5 MG TABLET PO SCH (20:49)
[2022-12-15] MEDS: PIPERACILLIN-TAZOBACTAM 3.375 GM in SODIUM CHLORIDE 0.9% 100 ML IVPB SCH ×2 (00:21→10:13)
[2022-12-15] MEDS: HYDROcodone/APAP 5-325MG 1 EACH TAB PO PRN ×4 (00:21→22:11)
[2022-12-15] MEDS: SODIUM CHLORIDE 0.9% 1,000 ML IV SCH ×2 (01:37→15:14)
[2022-12-15] MEDS: MORPHINE SULFATE 4 MG/ML SYRINGE IV PRN ×6 (03:19→23:06)
[2022-12-15 05:50] LABS: Glucose,Whole Blood 172 mg/dL (70-110)
[2022-12-15] MEDS: INSULIN ASPART (NovoLOG) 100 UNIT/ML VIAL SQ SCH ×4 (06:42→22:12)
[2022-12-15] MEDS ORDERED: HYDROmorphone 0.5 MG/0.5 ML SYRINGE IVP PRN (07:00)
[2022-12-15 07:07] LABS: ALT 14 U/L (4-49); AST 24 U/L (17-59); African American GFR (CKD) >90 (>60 ml/min/1.73 sqM); Albumin/Globulin Ratio 0.5; Alkaline Phosphatase 77 U/L (38-126); Anion Gap -1 mmol/L; Blood Urea Nitrogen 8 mg/dL (9-20); Calcium 7.5 mg/dL (8.4-10.2); Carbon Dioxide 27 mmol/L (22-30); Chloride 112 mmol/L (98-107); Globulin 3.7 g/dL; Glucose 164 mg/dL (74-99); Non-African American GFR(CKD) >90 (>60 ml/min/1.73 sqM); Sodium 138 mmol/L (137-145); Total Bilirubin 0.3 mg/dL (0.2-1.3); Total Protein 5.7 g/dL (6.3-8.2)
[2022-12-15 07:20] LABS: Anisocytosis Slight; HCT 29.2 % (39.0-53.0); HGB 8.7 gm/dL (13.0-17.5); Hypochromasia Marked; MCH 24.4 pg (25.0-35.0); MCHC 29.8 g/dL (31.0-37.0); MCV 81.7 fL (80.0-100.0); Mean Platelet Volume 8.2; Platelet Count 493 k/uL (150-450); RBC 3.57 m/uL (4.30-5.90); RDW 16.1 % (11.5-15.5); WBC 7.2 k/uL (3.8-10.6)
[2022-12-15] MEDS: GABAPENTIN 300 MG CAP PO SCH ×3 (09:39→22:11)
[2022-12-15] MEDS: MULTIVITAMINS, THERA 1 EACH TAB PO SCH (09:39)
[2022-12-15] MEDS: NICOTINE 7MG/24HR PATCH TRANSDERM SCH (09:39)
[2022-12-15] MEDS: METOPROLOL TARTRATE 12.5 MG TAB PO SCH ×2 (09:39→20:48)
[2022-12-15] MEDS: polyethylene glycoL 3350 17 GM POWD.PACK PO SCH (09:39)
[2022-12-15] MEDS: FOLIC ACID 1 MG TAB PO SCH (09:39)
[2022-12-15] MEDS: SENNOSIDES 8.6 MG TAB PO SCH (09:39)
[2022-12-15] MEDS: AMIODARONE 200 MG TAB PO SCH (09:39)
[2022-12-15] MEDS: LACTATED RINGERS 1,000 ML IV SCH (10:42)
[2022-12-15 11:39] LABS: Glucose,Whole Blood 135 mg/dL (70-110)
[2022-12-15] MEDS ORDERED: LACTATED RINGERS 1,000 ML IV ONE (13:06)
--- NOTE | 2022-12-15 13:14 | P.PN ---
Subjective This is a 62-year-old patient, follows with Dr. Mendez. Chronic stable medical conditions include ADHD, herniated disc lower back, smoker. Patient presents with worsening wound in the sacrum, both the heels. Some pain is present. Having fevers at home. Decreased appetite. Bowels are okay. Does smoke a few cigarettes a day. Has a home care nurse comes on every 3 days. Because of worsening wound patient is brought to the ER. Son at the bedside. Patient non-ambulatory. December 10: Patient underwent left foot amputation by Dr. Zee yesterday. She wanted surgery to at the sacral wound. Pain control. IV Unasyn. IV vancomycin. December 11: Laying in bed. Some pain at the operative site. Eating about 25-50%. Pending sacral decubitus debridement by surgery. Per Dr. Allen planning to proceed with above knee Amputation early next week. Including debridement of the right heel. December 12: Pain control. Discussed with patient. Pending sacral decubitus debridement by surgery. Per Dr. Allen planning to proceed with above knee Amputation early next week. Including debridement of the right heel. Eating some. 12/13. Patient seen and examined. No acute issues overnight 12/14. Patient seen and examined. Potassium level this morning is 5.9, hyperkalemia protocol initiated 12/15. Patient seen and examined . Patient scheduled for surgery today. REVIEW OF SYSTEMS: CONSTITUTIONAL: No fever, no malaise,. CARDIOVASCULAR: No chest pain, no palpitations, no syncope. PULMONARY: No shortness of breath, no cough, GASTROINTESTINAL: No diarrhea, no nausea, no vomiting, no abdominal pain. NEUROLOGICAL: No headaches, no weakness, PHYSICAL EXAMINATION: GENERAL: The patient is alert and oriented x3, not in any acute distress. Well developed, well nourished. HEENT: Pupils are round and equally reacting to light. EOMI. No scleral icterus. No conjunctival pallor. Normocephalic, atraumatic. No pharyngeal erythema. No thyromegaly. CARDIOVASCULAR: S1 and S2 present. No murmurs, rubs, or gallops. PULMONARY: Chest is clear to auscultation, no wheezing or crackles. ABDOMEN: Soft, nontender, nondistended, normoactive bowel sounds. No palpable organomegaly. MUSCULOSKELETAL: Left leg bandaged EXTREMITIES: No cyanosis, clubbing, or pedal edema. NEUROLOGICAL: Gross neurological examination did not reveal any focal deficits. SKIN: No rashes. Assessment and plan -Extensive decubitus ulcers including the right heel, left heel, sacrum/coccyx. acute osteomyelitis. Surrounding cellulitis. Vascular surgery and ID following Continue sacral wound care pending right heel debridement and extension to left above-knee amputation by vascular surgery, scheduled for today -Gangrene of the left foot with acute osteomyelitis: Left foot amputation on December [address] Zee Wound care. IV Zosyn. Plan for extension to left above-knee amputation early next week. -Sepsis from above, POA -Acute osteomyelitis left heel: Status post amputation. Continue IV Zosyn -Paroxysmal atrial fibrillation: sinus rhythm Amiodarone. Lopressor. -Severe protein calorie malnutrition Supplementation added. -Diabetes mellitus type 2, chronically on insulin Follow Accu-Cheks. Januvia -COPD in a current smoker Bronchodilators as needed -Chronic nicotine dependence, cigarette smoker Nicotine patch -Chronic medical debility. Non-ambulatory -Severe protein calorie malnutrition. ensure supplement Hyperkalemia Resolved Labs and medication were reviewed.. Continue same treatment. Continue with symptomatic treatment. Resume home medication. Monitor labs and vitals. DVT and GI prophylaxis. Further recommendations as per clinical course of the patient Objective - Vital Signs Vital signs: Vital Signs Temp 98.8 F 12/15/22 07:43 Pulse 66 12/15/22 07:43 Resp 18 12/15/22 07:43 BP 115/71 12/15/22 07:43 Pulse Ox 99 12/15/22 07:43 FiO2 Intake & Output 12/14/22 12/15/22 12/15/22 18:59 06:59 18:59 Intake Total 1960 Output Total 4410 324 8420 Balance 710 -500 -1600 Intake: Intake, IV Titration 1000 Amount Piperacillin-Tazobactam 3 100 .375 gm In Sodium Chloride 0.9% 100 ml @ 25 mls/hr IVPB Q8HR [facility] Rx# :[id number] Sodium Chloride 0.9% 1, 900 000 ml @ 75 mls/hr IV . [id number] [facility] Rx#:[id number] Oral 960 Output: Urine 1352 352 0647 Other: Voiding Method Indwelling Catheter - Labs CBC & Chem 7: 12/15/22 06:30 12/15/22 06:30 Labs: Abnormal Lab Results - Last 24 Hours (Table) 12/14/22 12/14/22 12/14/22 Range/Units 11:23 14:04 16:39 RBC (4.30-5.90) m/uL Hgb (13.0-17.5) gm/dL Hct (39.0-53.0) % MCH (25.0-35.0) pg MCHC (31.0-37.0) g/dL RDW (11.5-15.5) % Plt Count (150-450) k/uL Potassium 5.2 H (3.5-5.1) mmol/L Chloride (98-107) mmol/L BUN (9-20) mg/dL Creatinine (0.66-1.25) mg/dL Glucose (74-99) mg/dL POC Glucose (mg/dL) 132 H 179 H (70-110) mg/dL Calcium (8.4-10.2) mg/dL Total Protein (6.3-8.2) g/dL Albumin (3.5-5.0) g/dL 12/14/22 12/15/22 12/15/22 Range/Units 20:34 05:49 06:30 RBC 3.57 L (4.30-5.90) m/uL Hgb 8.7 L (13.0-17.5) gm/dL Hct 29.2 L (39.0-53.0) % MCH 24.4 L (25.0-35.0) pg MCHC 29.8 L (31.0-37.0) g/dL RDW 16.1 H (11.5-15.5) % Plt Count 493 H (150-450) k/uL Potassium (3.5-5.1) mmol/L Chloride (98-107) mmol/L BUN (9-20) mg/dL Creatinine (0.66-1.25) mg/dL Glucose (74-99) mg/dL POC Glucose (mg/dL) 202 H 172 H (70-110) mg/dL Calcium (8.4-10.2) mg/dL Total Protein (6.3-8.2) g/dL Albumin (3.5-5.0) g/dL 12/15/22 Range/Units 06:30 RBC (4.30-5.90) m/uL Hgb (13.0-17.5) gm/dL Hct (39.0-53.0) % MCH (25.0-35.0) pg MCHC (31.0-37.0) g/dL RDW (11.5-15.5) % Plt Count (150-450) k/uL Potassium (3.5-5.1) mmol/L Chloride 112 H (98-107) mmol/L BUN 8 L (9-20) mg/dL Creatinine 0.44 L (0.66-1.25) mg/dL Glucose 164 H (74-99) mg/dL POC Glucose (mg/dL) (70-110) mg/dL Calcium 7.5 L (8.4-10.2) mg/dL Total Protein 5.7 L (6.3-8.2) g/dL Albumin 2.0 L (3.5-5.0) g/dL Microbiology - Last 24 Hours (Table) 12/08/22 19:27 Gram Stain - Preliminary Foot - Left Wound Culture - Preliminary Proteus mirabilis Gram Neg Bacilli
[2022-12-15] MEDS ORDERED: ONDANSETRON 4 MG/2 ML VIAL IVP ONE (13:22)
[2022-12-15] MEDS ORDERED: DEXAMETHASONE SOD PHOSPHATE 4 MG/ML 1 ML VIAL IVP ONE (13:22)
[2022-12-15] MEDS ORDERED: PROPOFOL 10 MG/ML 20 ML VIAL IV ONE (13:31)
[2022-12-15] MEDS ORDERED: MIDAZOLAM 2 MG/2 ML VIAL ONE (13:31)
[2022-12-15] MEDS ORDERED: fentaNYL (PF) 50 MCG/ML 2 ML AMP ONE (13:31)
[2022-12-15] MEDS ORDERED: ePHEDrine 50 MG/ML 1 ML VIAL ONE (13:31)
[2022-12-15] MEDS ORDERED: ceFAZolin 2 GM in SODIUM CHLORIDE 0.9% 500 ML 500 ML IRRIGATION ONE (14:27)
--- NOTE | 2022-12-15 15:03 | P.OP ---
Date of Procedure: 12/15/22 Description of Procedure: Preoperative diagnosis: Left lower extremity ischemia, previous guillotine a mputation due to wet gangrene of the heel and ankle, bedbound Postoperative diagnosis: Same Procedure: Left Above-knee amputation Surgeon: Barbara Zee D.O. 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 He underwent a guillotine amputation for that and has been improving medically since. He is here today for a completion above knee amputation due to non ambulation. Risks and benefits were discussed. He seemingly understands and is willing to proceed. Procedure in detail: The patient was taken to the operative suite and placed in supine position. After adequate anesthesia, the left lower extremity was prepped and draped in usual sterile fashion. A preprocedure timeout was performed, all parties were in agreement. Skin marker was utilized and the incision was marked approximately 5 cm proximal to the knee joint. Skin incision was performed and deepened through the subcutaneous tissues to the muscular fascia. The saphenous vein was identified and ligated with 2-0 silk and divided. The muscle groups of the anterior and medial thigh were divided with electrocautery at the same level of the skin incision. The neurovascular bundle was identified on the medial aspect of the thigh. The artery and veins were isolated and suture ligated using 2-0 silk ligature. The sciatic nerve was pulled on stretch and ligated with 2-0 silk tie and divided. The femur was then cleared of its periosteal tissue is elevated roughly 5 cm proximally and was divided with the oscillating saw. The posterior thigh muscles were then divided with electrocautery. The proximal end of the transected femur was smoothed with a rasp. The amputation site was then copiously irrigated. Hemostasis was controlled with electrocautery. The periosteum was reapproximated using interrupted sutures of 2-0 Vicryl. The fascia was reapproximated with interrupted [id number]-[id number] sutures of 2-0 Vicryl. The skin was reapproximated with rosetta. A dressing with gauze, Kerlix and a bandage were placed. The patient tolerated the procedure well and was transported to PACU in stable condition
[2022-12-15 16:48] LABS: Glucose,Whole Blood 194 mg/dL (70-110)
[2022-12-15] MEDS: AMPICILLIN-SULBACTAM 3 GM in SODIUM CHLORIDE 0.9% 100 ML IVPB SCH ×2 (17:02→23:05)
[2022-12-15 20:34] LABS: Glucose,Whole Blood 267 mg/dL (70-110)
[2022-12-15] MEDS: LINAGLIPTIN 5 MG TABLET PO SCH (20:48)
[2022-12-15] MEDS: MELATONIN 5 MG TABLET PO SCH (20:48)
[2022-12-16] MEDS: MORPHINE SULFATE 4 MG/ML SYRINGE IV PRN ×9 (01:46→23:44)
[2022-12-16] MEDS: SODIUM CHLORIDE 0.9% 1,000 ML IV SCH (02:59)
[2022-12-16] MEDS: AMPICILLIN-SULBACTAM 3 GM in SODIUM CHLORIDE 0.9% 100 ML IVPB SCH ×4 (06:07→23:43)
[2022-12-16 06:17] LABS: Glucose,Whole Blood 292 mg/dL (70-110)
[2022-12-16] MEDS: INSULIN ASPART (NovoLOG) 100 UNIT/ML VIAL SQ SCH ×4 (06:37→21:19)
[2022-12-16] MEDS: LACTATED RINGERS 1,000 ML IV SCH (08:00)
[2022-12-16] MEDS: HYDROcodone/APAP 5-325MG 1 EACH TAB PO PRN ×4 (08:01→20:19)
[2022-12-16] MEDS: GABAPENTIN 300 MG CAP PO SCH ×3 (09:51→21:17)
[2022-12-16] MEDS: AMIODARONE 200 MG TAB PO SCH (09:51)
[2022-12-16] MEDS: MULTIVITAMINS, THERA 1 EACH TAB PO SCH (09:51)
[2022-12-16] MEDS: SENNOSIDES 8.6 MG TAB PO SCH (09:51)
[2022-12-16] MEDS: FOLIC ACID 1 MG TAB PO SCH (09:51)
[2022-12-16] MEDS: METOPROLOL TARTRATE 12.5 MG TAB PO SCH ×2 (09:51→21:18)
[2022-12-16] MEDS: NICOTINE 7MG/24HR PATCH TRANSDERM SCH (09:51)
[2022-12-16] MEDS: polyethylene glycoL 3350 17 GM POWD.PACK PO SCH (09:51)
[2022-12-16 11:16] LABS: Glucose,Whole Blood 281 mg/dL (70-110)
[2022-12-16 13:28] LABS: Basophils # (A) 0.04 X 10*3/uL (0.00-0.10); Basophils % (A) 0.4 %; Eosinophils # (A) 0.01 X 10*3/uL (0.04-0.35); Eosinophils % (A) 0.1 %; HCT 27.2 % (39.6-50.0); HGB 7.9 d/dL (12.0-15.0); Lymphocytes # (A) 1.21 X 10*3/uL (0.90-5.00); Lymphocytes % (A) 12.3 %; MCH 24.5 pg (27.0-32.0); MCV 84.5 FL (80.0-97.0); Mean Platelet Volume 8.5 FL (9.5-12.2); Monocytes # (A) 0.51 X 10*3/uL (0.20-1.00); Monocytes % (A) 5.2 %; NRBC Per 100 WBC 0 X 10*3/uL (0.00-0.01); Neutrophils # (A) 8.02 X 10*3/uL (1.80-7.70); Neutrophils % (A) 81.3 %; Platelet Count 485 X 10*3/uL (140-440); RBC 3.22 X 10*6/uL (4.40-5.60); RDW 16.1 % (11.5-14.5); WBC 9.86 X 10*3/uL (4.50-10.00)
[2022-12-16 13:37] LABS: ALT 32 U/L (10-49); AST 26 U/L (14-35); Albumin 2.1 d/dL (3.8-4.9); Albumin/Globulin Ratio 0.58 Ratio (1.60-3.17); Alkaline Phosphatase 180 U/L (41-126); BUN/Creat Ratio 16.25 Ratio (12.00-20.00); Blood Urea Nitrogen 6.5 mg/dL (9.0-27.0); Calcium 7.9 mg/dL (8.7-10.3); Carbon Dioxide 22.3 mmol/L (21.6-31.8); Chloride 107 mmol/L (96-109); Globulin 3.6 d/dL (1.6-3.3); Glucose 283 mg/dL (70-110); Potassium 4.7 mmol/L (3.5-5.5); Sodium 137 mmol/L (135-145); Total Bilirubin <0.2 mg/dL (0.3-1.2); Total Protein 5.7 d/dL (6.2-8.2)
--- NOTE | 2022-12-16 13:38 | P.PN ---
Subjective Progress Note Date: 12/16/22 Patient is seen and examined as a follow-up. He is postop day #1 for left icxew-hqy-pxdo amputation. Patient states pain is well controlled with pain medication. He is currently working with physical therapy and they are transferring him into the recliner. No acute changes through the night. Patient is afebrile. Objective - Vital Signs Vital signs: Vital Signs Temp 98.4 F 12/16/22 06:50 Pulse 72 12/16/22 06:50 Resp 18 12/16/22 06:50 BP 119/73 12/16/22 06:50 Pulse Ox 98 12/16/22 06:50 FiO2 Intake & Output 12/15/22 12/16/22 12/16/22 18:59 06:59 18:59 Intake Total 1891 Output Total 2400 2800 Balance -509 -2800 Weight 60.781 kg Intake: IV 851 Intake, IV Titration 400 Amount Ampicillin-Sulbactam 3 gm 100 In Sodium Chloride 0.9% 100 ml @ 200 mls/hr IVPB Q6HR [facility] Rx#:[id number] Sodium Chloride 0.9% 1, 300 000 ml @ 75 mls/hr IV . [id number] [facility] Rx#:[id number] Oral 640 Output: Urine 2350 2800 Estimated Blood Loss 50 Other: Voiding Method Indwelling Catheter Indwelling Catheter Indwelling Catheter # Bowel Movements 1 - Exam General appearance: The patient is alert, oriented, appears in no acute distress. HET: Head is normocephalic and atraumatic. Pupils are equal and reactive. Neck: Supple. Heart: Regular. Lungs: Equal expansion, normal respiratory effort. Abdomen: Soft, nondistended. Extremities: Left gaukw-oyo-fmad amputation with dressing clean dry and intact with John wrap. Right foot with dressing clean dry and intact. Neurological: No focal deficits. Strength and sensation are grossly intact. - Labs CBC & Chem 7: 12/16/22 06:12 12/15/22 06:30 Labs: Abnormal Lab Results - Last 24 Hours (Table) 12/15/22 12/15/22 12/15/22 Range/Units 11:37 16:46 20:33 POC Glucose (mg/dL) 135 H 194 H 267 H (70-110) mg/dL 12/16/22 Range/Units 06:16 POC Glucose (mg/dL) 292 H (70-110) mg/dL Microbiology - Last 24 Hours (Table) 12/08/22 19:27 Gram Stain - Final Foot - Left Wound Culture - Final Proteus mirabilis Gram Neg Shaan Non-Respiratory Care Assistant Assessment and Plan Assessment: Postoperative day #1 left cykix-oev-ctih amputation Multiple pressure wounds, bilateral heel and sacral. Wet gangrene of left heel with gas found on imaging Bedbound History of stroke Tobacco abuse Diabetes Plan: 1. Diet as tolerated 2. Continue with recommendations from infectious disease 3. Continue with physical therapy 4. Discontinue Zee catheter 5. Continue local wound care to right heel Thank you for this consultation. The impression and plan of care has been dictated as directed. Dr. Schulz I performed a history and examination of this patient, discussed the same with the dictator. I agree with the dictator's note ,documented as a scribe. Any additional findings or plans will be noted.
--- NOTE | 2022-12-16 14:04 | P.PN ---
Subjective Progress Note Date: 12/16/22 This is a 62-year-old patient, follows with Dr. Mendez. Chronic stable medical conditions include ADHD, herniated disc lower back, smoker. Patient presents with worsening wound in the sacrum, both the heels. Some pain is present. Having fevers at home. Decreased appetite. Bowels are okay. Does smoke a few cigarettes a day. Has a home care nurse comes on every 3 days. Because of worsening wound patient is brought to the ER. Son at the bedside. Patient non-ambulatory. December 10: Patient underwent left foot amputation by Dr. Zee yesterday. She wanted surgery to at the sacral wound. Pain control. IV Unasyn. IV vancomycin. December 11: Laying in bed. Some pain at the operative site. Eating about 25-50%. Pending sacral decubitus debridement by surgery. Per Dr. Allen planning to proceed with above knee Amputation early next week. Including debridement of the right heel. December 12: Pain control. Discussed with patient. Pending sacral decubitus debridement by surgery. Per Dr. Allen planning to proceed with above knee Amputation early next week. Including debridement of the right heel. Eating some. 12/13. Patient seen and examined. No acute issues overnight 12/14. Patient seen and examined. Potassium level this morning is 5.9, hyperkalemia protocol initiated 12/15. Patient seen and examined . Patient scheduled for surgery today. 12/16. Patient seen and examined. Patient underwent left tvfkc-kkv-ivag amputation yesterday REVIEW OF SYSTEMS: CONSTITUTIONAL: No fever, no malaise,. CARDIOVASCULAR: No chest pain, no palpitations, no syncope. PULMONARY: No shortness of breath, no cough, GASTROINTESTINAL: No diarrhea, no nausea, no vomiting, no abdominal pain. NEUROLOGICAL: No headaches, no weakness, PHYSICAL EXAMINATION: GENERAL: The patient is alert and oriented x3, not in any acute distress. Well developed, well nourished. HEENT: Pupils are round and equally reacting to light. EOMI. No scleral icterus. No conjunctival pallor. Normocephalic, atraumatic. No pharyngeal erythema. No thyromegaly. CARDIOVASCULAR: S1 and S2 present. No murmurs, rubs, or gallops. PULMONARY: Chest is clear to auscultation, no wheezing or crackles. ABDOMEN: Soft, nontender, nondistended, normoactive bowel sounds. No palpable organomegaly. MUSCULOSKELETAL: Left AKA EXTREMITIES: No cyanosis, clubbing, or pedal edema. NEUROLOGICAL: Gross neurological examination did not reveal any focal deficits. SKIN: No rashes. Assessment and plan -Extensive decubitus ulcers including the right heel, left heel, sacrum/coccyx. acute osteomyelitis. Surrounding cellulitis. Vascular surgery and ID following Continue sacral wound care Status post left AKA on 12/15 Continue wound care -Gangrene of the left foot with acute osteomyelitis: Left foot amputation on December [address] Zee Wound care. IV Unasyn. Patient underwent extension to left above-knee amputation on 12/15 -Sepsis from above, POA -Acute osteomyelitis left heel: Status post left AKA Continue IV Unasyn -Paroxysmal atrial fibrillation: sinus rhythm Amiodarone. Lopressor. -Severe protein calorie malnutrition Supplementation added. -Diabetes mellitus type 2, chronically on insulin Follow Accu-Cheks. Januvia -COPD in a current smoker Bronchodilators as needed -Chronic nicotine dependence, cigarette smoker Nicotine patch -Chronic medical debility. Non-ambulatory -Severe protein calorie malnutrition. ensure supplement Hyperkalemia Resolved Labs and medication were reviewed.. Continue same treatment. Continue with symptomatic treatment. Resume home medication. Monitor labs and vitals. DVT and GI prophylaxis. Further recommendations as per clinical course of the patient Objective - Vital Signs Vital signs: Vital Signs Temp 98.4 F 12/16/22 06:50 Pulse 72 12/16/22 06:50 Resp 18 12/16/22 06:50 BP 119/73 12/16/22 06:50 Pulse Ox 98 12/16/22 06:50 FiO2 Intake & Output 12/15/22 12/16/22 12/16/22 18:59 06:59 18:59 Intake Total 1891 Output Total 2400 2800 Balance -509 -2800 Weight 60.781 kg Intake: IV 851 Intake, IV Titration 400 Amount Ampicillin-Sulbactam 3 gm 100 In Sodium Chloride 0.9% 100 ml @ 200 mls/hr IVPB Q6HR [facility] Rx#:[id number] Sodium Chloride 0.9% 1, 300 000 ml @ 75 mls/hr IV . [id number] [facility] Rx#:[id number] Oral 640 Output: Urine 2350 2800 Estimated Blood Loss 50 Other: Voiding Method Indwelling Catheter Indwelling Catheter Indwelling Catheter # Bowel Movements 1 - Labs CBC & Chem 7: 12/16/22 06:12 12/16/22 06:12 Labs: Abnormal Lab Results - Last 24 Hours (Table) 12/15/22 12/15/22 12/15/22 Range/Units 11:37 16:46 20:33 POC Glucose (mg/dL) 135 H 194 H 267 H (70-110) mg/dL 12/16/22 Range/Units 06:16 POC Glucose (mg/dL) 292 H (70-110) mg/dL Microbiology - Last 24 Hours (Table) 12/08/22 19:27 Gram Stain - Final Foot - Left Wound Culture - Final Proteus mirabilis Gram Neg Shaan Non-Appliance Repair Technician
[2022-12-16 16:30] LABS: Glucose,Whole Blood 195 mg/dL (70-110)
--- NOTE | 2022-12-16 20:48 | P.PN ---
Subjective Progress Note Date: 12/15/22 Principal diagnosis: Diabetic foot infection Patient is a 62-year-old male with a past medical history sniffing and for diabetes mellitus hypertension hyperlipidemia patient did have a bilateral heel pressure ulcer, patient has been diagnosed with a wet gangrene to the left foot in this patient who is status post left zzglj-olb-agge amputation completed on 12/09/2022 by vascular surgery On today's evaluation that is 12/15/2022 the patient remains to be afebrile the p atient is breathing comfortably on room air patient denies having any chest pain shortness of breath or cough no abdominal pain patient complaining of being hungry and is waiting for left dpoix-ltp-meey amputation Objective - Vital Signs Vital signs: Vital Signs Temp 98.2 F 12/15/22 13:06 Pulse 64 12/15/22 13:06 Resp 16 12/15/22 13:06 BP 146/68 12/15/22 13:06 Pulse Ox 100 12/15/22 13:06 FiO2 Intake & Output 12/14/22 12/15/22 12/15/22 18:59 06:59 18:59 Intake Total 1960 Output Total 1550 710 9398 Balance 710 -500 -1600 Intake: Intake, IV Titration 1000 Amount Piperacillin-Tazobactam 3 100 .375 gm In Sodium Chloride 0.9% 100 ml @ 25 mls/hr IVPB Q8HR [facility] Rx# :[id number] Sodium Chloride 0.9% 1, 900 000 ml @ 75 mls/hr IV . [id number] [facility] Rx#:[id number] Oral 960 Output: Urine 2037 832 3417 Other: Voiding Method Indwelling Catheter Indwelling Catheter - Exam GENERAL DESCRIPTION: An elderly male lying in bed in no distress RESPIRATORY SYSTEM: Unlabored breathing , decreased breath sounds at bases HEART: S1 S2 regular rate and rhythm , ABDOMEN: Soft , no tenderness EXTREMITIES: Left ankle disarticulation site is dressed Patient did have a stage III sacral pressure ulcer with minimal slough tissue no surrounding redness - Labs CBC & Chem 7: 12/16/22 06:12 12/16/22 06:12 Labs: Abnormal Lab Results - Last 24 Hours (Table) 12/14/22 12/14/22 12/14/22 Range/Units 14:04 16:39 20:34 RBC (4.30-5.90) m/uL Hgb (13.0-17.5) gm/dL Hct (39.0-53.0) % MCH (25.0-35.0) pg MCHC (31.0-37.0) g/dL RDW (11.5-15.5) % Plt Count (150-450) k/uL Potassium 5.2 H (3.5-5.1) mmol/L Chloride (98-107) mmol/L BUN (9-20) mg/dL Creatinine (0.66-1.25) mg/dL Glucose (74-99) mg/dL POC Glucose (mg/dL) 179 H 202 H (70-110) mg/dL Calcium (8.4-10.2) mg/dL Total Protein (6.3-8.2) g/dL Albumin (3.5-5.0) g/dL 12/15/22 12/15/22 12/15/22 Range/Units 05:49 06:30 06:30 RBC 3.57 L (4.30-5.90) m/uL Hgb 8.7 L (13.0-17.5) gm/dL Hct 29.2 L (39.0-53.0) % MCH 24.4 L (25.0-35.0) pg MCHC 29.8 L (31.0-37.0) g/dL RDW 16.1 H (11.5-15.5) % Plt Count 493 H (150-450) k/uL Potassium (3.5-5.1) mmol/L Chloride 112 H (98-107) mmol/L BUN 8 L (9-20) mg/dL Creatinine 0.44 L (0.66-1.25) mg/dL Glucose 164 H (74-99) mg/dL POC Glucose (mg/dL) 172 H (70-110) mg/dL Calcium 7.5 L (8.4-10.2) mg/dL Total Protein 5.7 L (6.3-8.2) g/dL Albumin 2.0 L (3.5-5.0) g/dL 12/15/22 Range/Units 11:37 RBC (4.30-5.90) m/uL Hgb (13.0-17.5) gm/dL Hct (39.0-53.0) % MCH (25.0-35.0) pg MCHC (31.0-37.0) g/dL RDW (11.5-15.5) % Plt Count (150-450) k/uL Potassium (3.5-5.1) mmol/L Chloride (98-107) mmol/L BUN (9-20) mg/dL Creatinine (0.66-1.25) mg/dL Glucose (74-99) mg/dL POC Glucose (mg/dL) 135 H (70-110) mg/dL Calcium (8.4-10.2) mg/dL Total Protein (6.3-8.2) g/dL Albumin (3.5-5.0) g/dL Microbiology - Last 24 Hours (Table) 12/08/22 19:27 Gram Stain - Preliminary Foot - Left Wound Culture - Preliminary Proteus mirabilis Gram Neg Bacilli Assessment and Plan (1) Gangrene of left foot Current Visit: Yes Status: Acute Code(s): I96 - GANGRENE, NOT ELSEWHERE CLASSIFIED SNOMED Code(s): 45105399039368636 (2) Diabetic foot infection Current Visit: Yes Status: Acute Code(s): E11.628 - TYPE 2 DIABETES MELLITUS WITH OTHER SKIN COMPLICATIONS; L08.9 - LOCAL INFECTION OF THE SKIN AND SUBCUTANEOUS TISSUE, UNSP SNOMED Code(s): 937912633 (3) Acute osteomyelitis of ankle or foot Current Visit: Yes Status: Acute Code(s): M86.179 - OTHER ACUTE OSTEOMYELITIS, UNSPECIFIED ANKLE AND FOOT SNOMED Code(s): 783176763 (4) Stage III pressure ulcer of sacral region Current Visit: No Status: Acute Code(s): L89.153 - PRESSURE ULCER OF SACRAL REGION, STAGE 3 SNOMED Code(s): 75918396441909 Plan: 1patient presented hospital with sepsis in this patient who did have fever tachycardia elevated white count elevated lactic acidosis left diabetic foot infection in this patient with the unstageable pressure ulcer with significant wet gangrene and will need to cover for the polymicrobial ceferino usually associated with diabetic foot infection 2-sacral pressure ulcer but no cellulitis, local care to continue with the medahoney followed by moist dressing 3Patient is scheduled for left cyosa-nth-qipq amputation this afternoon. 4-Local culture has been finalized with Proteus mirabilis and gram-negative both of them are sensitive antibiotic will be switched over to Unasyn 3 g every 6 hours
--- NOTE | 2022-12-16 20:49 | P.PN ---
Subjective Progress Note Date: 12/16/22 Principal diagnosis: Diabetic foot infection Patient is a 62-year-old male with a past medical history sniffing and for diabetes mellitus hypertension hyperlipidemia patient did have a bilateral heel pressure ulcer, patient has been diagnosed with a wet gangrene to the left foot in this patient who is status post left iukze-geb-ysxe amputation completed on 12/09/2022 by vascular surgery, Patient is status post left rtnpg-kns-iqvt amputation completed on 12/15/2022. On today's evaluation that is 12/16/2022 patient denies having any fever or any chills he is breathing comfortably on room air no chest pain shortness of the cough no abdominal pain pain to the left AKA stump is currently controlled Objective - Vital Signs Vital signs: Vital Signs Temp 98.4 F 12/16/22 13:04 Pulse 67 12/16/22 13:04 Resp 18 12/16/22 13:04 BP 112/67 12/16/22 13:04 Pulse Ox 100 12/16/22 13:04 FiO2 Intake & Output 12/16/22 12/16/22 12/17/22 06:59 18:59 06:59 Intake Total 1940 Output Total 2800 600 Balance -2800 1340 Weight 60.781 kg Intake: Intake, IV Titration 1100 Amount Ampicillin-Sulbactam 3 gm 200 In Sodium Chloride 0.9% 100 ml @ 200 mls/hr IVPB Q6HR [facility] Rx#:[id number] Sodium Chloride 0.9% 1, 900 000 ml @ 75 mls/hr IV . [id number] [facility] Rx#:[id number] Oral 840 Output: Urine 2800 600 Uretheral (Zee) 600 Other: Voiding Method Indwelling Catheter Indwelling Catheter # Bowel Movements 1 - Exam GENERAL DESCRIPTION: An elderly male lying in bed in no distress RESPIRATORY SYSTEM: Unlabored breathing , decreased breath sounds at bases HEART: S1 S2 regular rate and rhythm , ABDOMEN: Soft , no tenderness EXTREMITIES: Left AKA site is dressed - Labs CBC & Chem 7: 12/16/22 06:12 12/16/22 06:12 Labs: Abnormal Lab Results - Last 24 Hours (Table) 12/15/22 12/16/22 12/16/22 Range/Units 20:33 06:12 06:12 RBC 3.22 L (4.40-5.60) X 10*6/uL Hgb 7.9 L (12.0-15.0) d/dL Hct 27.2 L (39.6-50.0) % MCH 24.5 L (27.0-32.0) pg MCHC 29.0 L (32.0-37.0) d/dL RDW 16.1 H (11.5-14.5) % Plt Count 485 H (140-440) X 10*3/uL MPV 8.5 L (9.5-12.2) FL Neutrophils # 8.02 H (1.80-7.70) X 10*3/uL Eosinophils # 0.01 L (0.04-0.35) X 10*3/uL BUN 6.5 L (9.0-27.0) mg/dL Creatinine 0.4 L (0.6-1.5) mg/dL Glucose 283 H (70-110) mg/dL POC Glucose (mg/dL) 267 H (70-110) mg/dL Calcium 7.9 L (8.7-10.3) mg/dL Total Bilirubin <0.2 L (0.3-1.2) mg/dL Alkaline Phosphatase 180 H (41-126) U/L Total Protein 5.7 L (6.2-8.2) d/dL Albumin 2.1 L (3.8-4.9) d/dL Globulin 3.6 H (1.6-3.3) d/dL Albumin/Globulin Ratio 0.58 L (1.60-3.17) Ratio 12/16/22 12/16/22 12/16/22 Range/Units 06:16 11:14 16:28 RBC (4.40-5.60) X 10*6/uL Hgb (12.0-15.0) d/dL Hct (39.6-50.0) % MCH (27.0-32.0) pg MCHC (32.0-37.0) d/dL RDW (11.5-14.5) % Plt Count (140-440) X 10*3/uL MPV (9.5-12.2) FL Neutrophils # (1.80-7.70) X 10*3/uL Eosinophils # (0.04-0.35) X 10*3/uL BUN (9.0-27.0) mg/dL Creatinine (0.6-1.5) mg/dL Glucose (70-110) mg/dL POC Glucose (mg/dL) 292 H 281 H 195 H (70-110) mg/dL Calcium (8.7-10.3) mg/dL Total Bilirubin (0.3-1.2) mg/dL Alkaline Phosphatase (41-126) U/L Total Protein (6.2-8.2) d/dL Albumin (3.8-4.9) d/dL Globulin (1.6-3.3) d/dL Albumin/Globulin Ratio (1.60-3.17) Ratio Microbiology - Last 24 Hours (Table) 12/08/22 19:27 Gram Stain - Final Foot - Left Wound Culture - Final Proteus mirabilis Gram Neg Shaan Non-Edge Molder Assessment and Plan (1) Gangrene of left foot Current Visit: Yes Status: Acute Code(s): I96 - GANGRENE, NOT ELSEWHERE CLASSIFIED SNOMED Code(s): 78687310127225445 (2) Diabetic foot infection Current Visit: Yes Status: Acute Code(s): E11.628 - TYPE 2 DIABETES MELLITUS WITH OTHER SKIN COMPLICATIONS; L08.9 - LOCAL INFECTION OF THE SKIN AND SUBCUTANEOUS TISSUE, UNSP SNOMED Code(s): 821308434 (3) Acute osteomyelitis of ankle or foot Current Visit: Yes Status: Acute Code(s): M86.179 - OTHER ACUTE OSTEOMYELITIS, UNSPECIFIED ANKLE AND FOOT SNOMED Code(s): 993577139 (4) Stage III pressure ulcer of sacral region Current Visit: No Status: Acute Code(s): L89.153 - PRESSURE ULCER OF SACRAL REGION, STAGE 3 SNOMED Code(s): 43197021212405 Plan: 1patient presented hospital with sepsis in this patient who did have fever tachycardia elevated white count elevated lactic acidosis left diabetic foot infection in this patient with the unstageable pressure ulcer with significant wet gangrene and will need to cover for the polymicrobial ceferino usually associated with diabetic foot infection 2-sacral pressure ulcer but no cellulitis, local care to continue with the medahoney followed by moist dressing 3Patient is status post left soqrz-yoq-mtfw amputation completed on 12/15/2022. 4local cultures were positive for Proteus and gram-negative both sensitive to Unasyn patient is covered with Unasyn however as infected port was removed and the patient was not bacteremic plan will be to give him a short course of oral Augmentin on discharge questions Answered Time with Patient: Less than 30
[2022-12-16 21:01] LABS: Glucose,Whole Blood 174 mg/dL (70-110)
[2022-12-16] MEDS: LINAGLIPTIN 5 MG TABLET PO SCH (21:17)
[2022-12-16] MEDS: MELATONIN 5 MG TABLET PO SCH (21:17)
[2022-12-17] MEDS: HYDROcodone/APAP 5-325MG 1 EACH TAB PO PRN ×3 (01:02→15:31)
[2022-12-17] MEDS: MORPHINE SULFATE 4 MG/ML SYRINGE IV PRN ×4 (02:22→11:09)
[2022-12-17 05:53] LABS: Glucose,Whole Blood 189 mg/dL (70-110)
[2022-12-17] MEDS: AMPICILLIN-SULBACTAM 3 GM in SODIUM CHLORIDE 0.9% 100 ML IVPB SCH ×2 (06:27→11:56)
[2022-12-17] MEDS: INSULIN ASPART (NovoLOG) 100 UNIT/ML VIAL SQ SCH ×2 (06:28→11:56)
[2022-12-17] MEDS: NICOTINE 7MG/24HR PATCH TRANSDERM SCH (08:06)
[2022-12-17] MEDS: GABAPENTIN 300 MG CAP PO SCH (08:06)
[2022-12-17] MEDS: MULTIVITAMINS, THERA 1 EACH TAB PO SCH (08:07)
[2022-12-17] MEDS: SENNOSIDES 8.6 MG TAB PO SCH (08:07)
[2022-12-17] MEDS: AMIODARONE 200 MG TAB PO SCH (08:07)
[2022-12-17] MEDS: FOLIC ACID 1 MG TAB PO SCH (08:07)
[2022-12-17] MEDS: polyethylene glycoL 3350 17 GM POWD.PACK PO SCH (08:07)
[2022-12-17] MEDS: METOPROLOL TARTRATE 12.5 MG TAB PO SCH (08:07)
[2022-12-17 09:05] VITALS: RESP 18
[2022-12-17 11:49] LABS: Glucose,Whole Blood 177 mg/dL (70-110)
--- NOTE | 2022-12-17 11:56 | P.PN ---
Subjective Progress Note Date: 12/17/22 Patient is seen and examined as a follow-up. He is postop day #2 for left huzay-vur-rvuh amputation. Patient states pain is well controlled with pain medication. Patient has been working with physical therapy. Plan is for discharge today to subacute rehab. Patient is a febrile. Infectious disease [facility] s been following, recommending outpatient treatment with oral Augmentin. Objective - Vital Signs Vital signs: Vital Signs Temp 98.5 F 12/17/22 07:32 Pulse 67 12/17/22 07:32 Resp 18 12/17/22 07:32 BP 117/76 12/17/22 07:32 Pulse Ox 98 12/17/22 07:32 FiO2 Intake & Output 12/16/22 12/17/22 12/17/22 18:59 06:59 18:59 Intake Total 1940 Output Total 600 420 Balance 1340 -420 Weight 60.781 kg Intake: Intake, IV Titration 1100 Amount Ampicillin-Sulbactam 3 gm 200 In Sodium Chloride 0.9% 100 ml @ 200 mls/hr IVPB Q6HR [facility] Rx#:[id number] Sodium Chloride 0.9% 1, 900 000 ml @ 75 mls/hr IV . [id number] [facility] Rx#:[id number] Oral 840 Output: Urine 600 420 Uretheral (Zee) 600 Other: Voiding Method Indwelling Catheter Urinal Diaper Incontinent # Voids 2 2 # Bowel Movements 1 - Exam General appearance: The patient is alert, oriented, appears in no acute distress. HET: Head is normocephalic and atraumatic. Pupils are equal and reactive. Neck: Supple. Abdomen: Soft, nondistended. Extremities: Left nortw-auj-evqe amputation stump well approximated with rosetta, no bleeding or drainage. No surrounding erythema, skin is pink, warm and dry. Right foot with dressing clean dry and intact. Neurological: No focal deficits. Strength and sensation are grossly intact. - Labs CBC & Chem 7: 12/16/22 06:12 12/16/22 06:12 Labs: Abnormal Lab Results - Last 24 Hours (Table) 12/16/22 12/16/22 12/16/22 Range/Units 06:12 06:12 16:28 RBC 3.22 L (4.40-5.60) X 10*6/uL Hgb 7.9 L (12.0-15.0) d/dL Hct 27.2 L (39.6-50.0) % MCH 24.5 L (27.0-32.0) pg MCHC 29.0 L (32.0-37.0) d/dL RDW 16.1 H (11.5-14.5) % Plt Count 485 H (140-440) X 10*3/uL MPV 8.5 L (9.5-12.2) FL Neutrophils # 8.02 H (1.80-7.70) X 10*3/uL Eosinophils # 0.01 L (0.04-0.35) X 10*3/uL BUN 6.5 L (9.0-27.0) mg/dL Creatinine 0.4 L (0.6-1.5) mg/dL Glucose 283 H (70-110) mg/dL POC Glucose (mg/dL) 195 H (70-110) mg/dL Calcium 7.9 L (8.7-10.3) mg/dL Total Bilirubin <0.2 L (0.3-1.2) mg/dL Alkaline Phosphatase 180 H (41-126) U/L Total Protein 5.7 L (6.2-8.2) d/dL Albumin 2.1 L (3.8-4.9) d/dL Globulin 3.6 H (1.6-3.3) d/dL Albumin/Globulin Ratio 0.58 L (1.60-3.17) Ratio 12/16/22 12/17/22 Range/Units 20:59 05:51 RBC (4.40-5.60) X 10*6/uL Hgb (12.0-15.0) d/dL Hct (39.6-50.0) % MCH (27.0-32.0) pg MCHC (32.0-37.0) d/dL RDW (11.5-14.5) % Plt Count (140-440) X 10*3/uL MPV (9.5-12.2) FL Neutrophils # (1.80-7.70) X 10*3/uL Eosinophils # (0.04-0.35) X 10*3/uL BUN (9.0-27.0) mg/dL Creatinine (0.6-1.5) mg/dL Glucose (70-110) mg/dL POC Glucose (mg/dL) 174 H 189 H (70-110) mg/dL Calcium (8.7-10.3) mg/dL Total Bilirubin (0.3-1.2) mg/dL Alkaline Phosphatase (41-126) U/L Total Protein (6.2-8.2) d/dL Albumin (3.8-4.9) d/dL Globulin (1.6-3.3) d/dL Albumin/Globulin Ratio (1.60-3.17) Ratio Microbiology - Last 24 Hours (Table) 12/08/22 19:27 Gram Stain - Final Foot - Left Wound Culture - Final Proteus mirabilis Gram Neg Shaan Non-Administrative Support Manager Assessment and Plan Assessment: Postoperative day #2 left sxmjj-dft-riyl amputation Multiple pressure wounds, right heel and sacral. Wet gangrene of left heel with gas found on imaging Bedbound History of stroke Tobacco abuse Diabetes Plan: 1. Diet as tolerated 2. Continue with recommendations from infectious disease 3. Continue with physical therapy 4. Consider consultation to urology for urinary incontinence 5. Continue local wound care to right heel 6. Order for stump pelletising extruder operator and rigid dressing given to case management for comfort prosthetics 7. Discontinue IV pain medication 8. Patient is cleared for discharge from vascular surgery Thank you for this consultation. We will sign off at this time. The impression and plan of care has been dictated as directed. Dr. Schulz I performed a history and examination of this patient, discussed the same with the dictator. I agree with the dictator's note ,documented as a scribe. Any additional findings or plans will be noted.
--- NOTE | 2022-12-17 12:08 | P.DS ---
Providers Date of admission: 12/09/22 09:41 Expected date of discharge: 12/17/22 Attending physician: Jerardo Guillen Consults: 12/08/22 21:31 Consult Physician Routine Consulting Provider: Jim Eugene Consult Reason/Comments: Osteomyelitis and infected decubitus ulcer Do you want consulting provider notified?: Already Contacted Consult Physician Urgent Consulting Provider: Mateo Allen Consult Reason/Comments: Osteomyelitis with infected bilateral heel decubitus ulcers Do you want consulting provider notified?: Yes Primary care physician: Benjamin [facility] Course: Discharge diagnoses; Extensive decubitus ulcers including the right heel, left heel, sacrum/coccyx. acute osteomyelitis. Surrounding cellulitis. Vascular surgery and ID following Continue sacral wound care Status post left AKA on 12/15 Continue wound care Being discharged on oral Augmentin for 10 days -Gangrene of the left foot with acute osteomyelitis: Left foot amputation on December [address] Zee Patient underwent extension to left above-knee amputation on 12/15 Being discharged on oral Augmentin for 10 days -Sepsis from above, POA -Acute osteomyelitis left heel: Status post left AKA Being discharged on oral Augmentin for 10 days -Paroxysmal atrial fibrillation: sinus rhythm Amiodarone. Lopressor. -Severe protein calorie malnutrition Supplementation added. -Diabetes mellitus type 2, chronically on insulin Continue home regimen -COPD in a current smoker Bronchodilators as needed -Chronic nicotine dependence, cigarette smoker -Chronic medical debility. Non-ambulatory -Severe protein calorie malnutrition. ensure supplement Hyperkalemia Resolved Hospital course; This is a 62-year-old patient, follows with Dr. Mendez. Chronic stable medical conditions include ADHD, herniated disc lower back, smoker. Patient presents with worsening wound in the sacrum, both the heels. Some pain is present. Having fevers at home. Decreased appetite. Bowels are okay. Does smoke a few cigarettes a day. Has a home care nurse comes on every 3 days. Because of worsening wound patient is brought to the ER. Son at the bedside. Patient non-ambulatory. December 10: Patient underwent left foot amputation by Dr. Zee yesterday. She wanted surgery to at the sacral wound. Pain control. IV Unasyn. IV vancomycin. December 11: Laying in bed. Some pain at the operative site. Eating about 25-50%. Pending sacral decubitus debridement by surgery. Per Dr. Allen planning to proceed with above knee Amputation early next week. Including debridement of the right heel. December 12: Pain control. Discussed with patient. Pending sacral decubitus debridement by surgery. Per Dr. Allen planning to proceed with above knee A mputation early next week. Including debridement of the right heel. Eating some. 12/13. Patient seen and examined. No acute issues overnight 12/14. Patient seen and examined. Potassium level this morning is 5.9, hyperkalemia protocol initiated 12/15. Patient seen and examined . Patient scheduled for surgery today. 12/16. Patient seen and examined. Patient underwent left uxbue-gfz-dpju am putation yesterday 12/17. Patient seen and examined. ID recommended discharging patient on oral Augmentin for 10 days. Surgery also cleared the patient for discharge. Being discharged to rehab in stable condition PHYSICAL EXAMINATION: GENERAL: The patient is alert and oriented x3, not in any acute distress. Well developed, well nourished. HEENT: Pupils are round and equally reacting to light. EOMI. No scleral icterus. No conjunctival pallor. Normocephalic, atraumatic. No pharyngeal erythema. No thyromegaly. CARDIOVASCULAR: S1 and S2 present. No murmurs, rubs, or gallops. PULMONARY: Chest is clear to auscultation, no wheezing or crackles. ABDOMEN: Soft, nontender, nondistended, normoactive bowel sounds. No palpable organomegaly. MUSCULOSKELETAL: Left AKA EXTREMITIES: No cyanosis, clubbing, or pedal edema. NEUROLOGICAL: Gross neurological examination did not reveal any focal deficits. SKIN: No rashes. Dictation was produced using [email or web address] dictation software. please excuse any grammatical, word or spelling errors. Patient Condition at Discharge: Stable Plan - Discharge Summary Discharge Rx Participant: Yes New Discharge Prescriptions: New Amoxic-Pot Clav 875-125Mg [Augmentin 875-125] 1 tab PO Q12HR 10 Days #20 tab HYDROcodone/APAP 5-325MG [Teaneck 5-325] 1 each PO Q4HR PRN 3 Days #18 tab PRN Reason: Moderate Pain (Scale 4 To 6) Metoprolol Tartrate [Lopressor] 12.5 mg PO BID #30 tab Continue Folic Acid 1 mg PO DAILY tab Sennosides [Senokot] 8.6 mg PO DAILY tab Loperamide [Imodium] 2 mg PO BID PRN PRN Reason: Diarrhea INSULIN ASPART (NovoLOG) [NovoLOG (formulary)] See Protocol SQ ACHS Melatonin 5 mg PO HS@1999 Acetaminophen [Tylenol Arthritis] 650 mg PO Q6H PRN PRN Reason: Pain Gabapentin 300 mg PO TID 3 Days #9 cap sitaGLIPtin [Januvia] 100 mg PO HS@1999 Amiodarone [Cordarone] 200 mg PO DAILY tab Furosemide [Lasix] 40 mg PO DAILY tab Calcium Carbonate [Tums] 1,000 mg PO TID PRN PRN Reason: Indigestion INSULIN ASPART (NovoLOG) [NovoLOG (formulary)] 5 unit SQ ACHS polyethylene glycoL 3350 [Miralax] 17 gm PO DAILY Multivitamins, Thera [Multivitamin (formulary)] 1 tab PO DAILY Insulin Detemir (Levemir) [Levemir] 10 unit SQ HS@1999 Discontinued Metoprolol Tartrate [Lopressor] 25 mg PO BID Discharge Medication List sitaGLIPtin [Januvia] 100 mg PO HS@199903/02/22 [History] Amiodarone [Cordarone] 200 mg PO DAILY tab 03/25/22 [Rx] Folic Acid 1 mg PO DAILY tab 03/25/22 [Rx] Furosemide [Lasix] 40 mg PO DAILY tab 03/25/22 [Rx] Sennosides [Senokot] 8.6 mg PO DAILY tab 03/25/22 [Rx] Acetaminophen [Tylenol Arthritis] 650 mg PO Q6H PRN 09/11/22 [History] Calcium Carbonate [Tums] 1,000 mg PO TID PRN 09/11/22 [History] INSULIN ASPART (NovoLOG) [NovoLOG (formulary)] 5 unit SQ ACHS 09/11/22 [History] INSULIN ASPART (NovoLOG) [NovoLOG (formulary)] See Protocol SQ ACHS 09/11/22 [History] Insulin Detemir (Levemir) [Levemir] 10 unit SQ HS@199909/11/22 [History] Loperamide [Imodium] 2 mg PO BID PRN 09/11/22 [History] Melatonin 5 mg PO HS@199909/11/22 [History] Multivitamins, Thera [Multivitamin (formulary)] 1 tab PO DAILY 09/11/22 [ History] polyethylene glycoL 3350 [Miralax] 17 gm PO DAILY 09/11/22 [History] Amoxic-Pot Clav 875-125Mg [Augmentin 875-125] 1 tab PO Q12HR 10 Days #20 tab 12/17/22 [Rx] Gabapentin 300 mg PO TID 3 Days #9 cap 12/17/22 [Rx] HYDROcodone/APAP 5-325MG [Teaneck 5-325] 1 each PO Q4HR PRN 3 Days #18 tab 12/17/22 [Rx] Metoprolol Tartrate [Lopressor] 12.5 mg PO BID #30 tab 12/17/22 [Rx] Follow up Appointment(s)/Referral(s): Benjamin Mendez MD [Primary Care Provider] - 1-2 days Barbara Zee DO [STAFF PHYSICIAN] - 2 Weeks Jim Eugene MD [STAFF PHYSICIAN] - 1 Week Patient Instructions/Handouts: Osteomyelitis (DC), Below the Knee Amputation (DC) Activity/Diet/Wound Care/Special Instructions: Left qrejx-tre-ubcu amputation apply stump distribution center associate and rigid dressing once received by comfort prosthetic Right heel and sacral wounds, apply santyl wet to dry daily Discharge Disposition: TRANSFER TO SNF/ECF
[2022-12-17 15:51] VITALS: BP 100/62; PULSE 71; TEMP 98.4
--- NOTE | 2022-12-17 15:55 | P.PN ---
Subjective Progress Note Date: 12/17/22 Principal diagnosis: Diabetic foot infection Patient is a 62-year-old male with a past medical history sniffing and for diabetes mellitus hypertension hyperlipidemia patient did have a bilateral heel pressure ulcer, patient has been diagnosed with a wet gangrene to the left foot in this patient who is status post left sljea-vqb-pjga amputation completed on 12/09/2022 by vascular surgery, Patient is status post left gxoyo-qmy-rset amputation completed on 12/15/2022. On today's evaluation that is 12/17/2022 patient remains to be afebrile, the patient is breathing comfortably on room air , the patient denies chest pain shortness of the cough no abdominal pain pain to the left AKA stump is currently controlled Objective - Vital Signs Vital signs: Vital Signs Temp 98.5 F 12/17/22 07:32 Pulse 67 12/17/22 07:32 Resp 18 12/17/22 07:32 BP 117/76 12/17/22 07:32 Pulse Ox 98 12/17/22 07:32 FiO2 Intake & Output 12/16/22 12/17/22 12/17/22 18:59 06:59 18:59 Intake Total 1940 Output Total 600 420 Balance 1340 -420 Weight 60.781 kg Intake: Intake, IV Titration 1100 Amount Ampicillin-Sulbactam 3 gm 200 In Sodium Chloride 0.9% 100 ml @ 200 mls/hr IVPB Q6HR [facility] Rx#:[id number] Sodium Chloride 0.9% 1, 900 000 ml @ 75 mls/hr IV . [id number] [facility] Rx#:[id number] Oral 840 Output: Urine 600 420 Uretheral (Zee) 600 Other: Voiding Method Indwelling Catheter Urinal Diaper Incontinent # Voids 2 2 # Bowel Movements 1 - Exam GENERAL DESCRIPTION: An elderly male lying in bed in no distress RESPIRATORY SYSTEM: Unlabored breathing , decreased breath sounds at bases HEART: S1 S2 regular rate and rhythm , ABDOMEN: Soft , no tenderness EXTREMITIES: Left AKA site is dressed - Labs CBC & Chem 7: 12/16/22 06:12 12/16/22 06:12 Labs: Abnormal Lab Results - Last 24 Hours (Table) 12/16/22 12/16/22 12/16/22 Range/Units 06:12 06:12 16:28 RBC 3.22 L (4.40-5.60) X 10*6/uL Hgb 7.9 L (12.0-15.0) d/dL Hct 27.2 L (39.6-50.0) % MCH 24.5 L (27.0-32.0) pg MCHC 29.0 L (32.0-37.0) d/dL RDW 16.1 H (11.5-14.5) % Plt Count 485 H (140-440) X 10*3/uL MPV 8.5 L (9.5-12.2) FL Neutrophils # 8.02 H (1.80-7.70) X 10*3/uL Eosinophils # 0.01 L (0.04-0.35) X 10*3/uL BUN 6.5 L (9.0-27.0) mg/dL Creatinine 0.4 L (0.6-1.5) mg/dL Glucose 283 H (70-110) mg/dL POC Glucose (mg/dL) 195 H (70-110) mg/dL Calcium 7.9 L (8.7-10.3) mg/dL Total Bilirubin <0.2 L (0.3-1.2) mg/dL Alkaline Phosphatase 180 H (41-126) U/L Total Protein 5.7 L (6.2-8.2) d/dL Albumin 2.1 L (3.8-4.9) d/dL Globulin 3.6 H (1.6-3.3) d/dL Albumin/Globulin Ratio 0.58 L (1.60-3.17) Ratio 12/16/22 12/17/22 12/17/22 Range/Units 20:59 05:51 11:48 RBC (4.40-5.60) X 10*6/uL Hgb (12.0-15.0) d/dL Hct (39.6-50.0) % MCH (27.0-32.0) pg MCHC (32.0-37.0) d/dL RDW (11.5-14.5) % Plt Count (140-440) X 10*3/uL MPV (9.5-12.2) FL Neutrophils # (1.80-7.70) X 10*3/uL Eosinophils # (0.04-0.35) X 10*3/uL BUN (9.0-27.0) mg/dL Creatinine (0.6-1.5) mg/dL Glucose (70-110) mg/dL POC Glucose (mg/dL) 174 H 189 H 177 H (70-110) mg/dL Calcium (8.7-10.3) mg/dL Total Bilirubin (0.3-1.2) mg/dL Alkaline Phosphatase (41-126) U/L Total Protein (6.2-8.2) d/dL Albumin (3.8-4.9) d/dL Globulin (1.6-3.3) d/dL Albumin/Globulin Ratio (1.60-3.17) Ratio Microbiology - Last 24 Hours (Table) 12/08/22 19:27 Gram Stain - Final Foot - Left Wound Culture - Final Proteus mirabilis Gram Neg Shaan Non-Graphics Manager Assessment and Plan (1) Gangrene of left foot Current Visit: Yes Status: Acute Code(s): I96 - GANGRENE, NOT ELSEWHERE CLASSIFIED SNOMED Code(s): 61208285500713092 (2) Diabetic foot infection Current Visit: Yes Status: Acute Code(s): E11.628 - TYPE 2 DIABETES MELLITUS WITH OTHER SKIN COMPLICATIONS; L08.9 - LOCAL INFECTION OF THE SKIN AND SUBCUTANEOUS TISSUE, UNSP SNOMED Code(s): 189293490 (3) Acute osteomyelitis of ankle or foot Current Visit: Yes Status: Acute Code(s): M86.179 - OTHER ACUTE OSTEOMYELI TIS, UNSPECIFIED ANKLE AND FOOT SNOMED Code(s): 701796370 (4) Stage III pressure ulcer of sacral region Current Visit: No Status: Acute Code(s): L89.153 - PRESSURE ULCER OF SACRAL REGION, STAGE 3 SNOMED Code(s): 19161835901864 Plan: 1patient presented hospital with sepsis in this patient who did have fever tachycardia elevated white count elevated lactic acidosis left diabetic foot infection in this patient with the unstageable pressure ulcer with significant wet gangrene and will need to cover for the polymicrobial ceferino usually associated with diabetic foot infection 2-sacral pressure ulcer but no cellulitis, local care to continue with the medahoney followed by moist dressing 3Patient is status post left gbyxi-qkk-otlp amputation completed on 12/15/2022. 4local cultures were positive for Proteus and gram-negative both sensitive to Unasyn 5-the plan is to finish therapy with oral Augmentin 10 days with close outpatient follow-up discussed with the admitting team working on discharge
[2022-12-18] MEDS ORDERED: COLLAGENASE 250 UNIT/GM OINTMENT 30 GM TUBE TOPICAL SCH (09:00)
== END 2022-12-17 16:11 | DRG 710 ==
LOC: EC 15:20 → 4SSUR 20:49 → OBSVTOIN 12-09 09:41
PROVIDERS: ADMIT Hospitalist; ATTEND Hospitalist
PROC: 0JBQ0ZZ Excision of Right Foot Subcutaneous Tissue and Fascia, Open Approach (ICD-10-PCS; principal; 2022-12-09 09:10)
PROC: 0Y6N0Z0 Detachment at Left Foot, Complete, Open Approach (ICD-10-PCS; principal; 2022-12-09 09:10)
PROC: 0Y6D0Z1 Detachment at Left Upper Leg, High, Open Approach (ICD-10-PCS; 2022-12-15)
DX: A41.9 Sepsis, unspecified organism (principal); A48.0 Gas gangrene; E43 Unspecified severe protein-calorie malnutrition; L89.153 Pressure ulcer of sacral region, stage 3; E11.52 Type 2 diabetes mellitus with diabetic peripheral angiopathy with gangrene; E11.649 Type 2 diabetes mellitus with hypoglycemia without coma; M86.172 Other acute osteomyelitis, left ankle and foot; E11.621 Type 2 diabetes mellitus with foot ulcer; D75.839 Thrombocytosis, unspecified; I48.0 Paroxysmal atrial fibrillation; E11.628 Type 2 diabetes mellitus with other skin complications; E11.69 Type 2 diabetes mellitus with other specified complication; Z68.1 Body mass index [BMI] 19.9 or less, adult; E87.5 Hyperkalemia; E78.5 Hyperlipidemia, unspecified; F17.210 Nicotine dependence, cigarettes, uncomplicated; G47.00 Insomnia, unspecified; L89.629 Pressure ulcer of left heel, unspecified stage; I10 Essential (primary) hypertension; K59.00 Constipation, unspecified; L03.116 Cellulitis of left lower limb; L03.115 Cellulitis of right lower limb; L03.312 Cellulitis of back [any part except buttock and flank]; R32 Unspecified urinary incontinence; L89.619 Pressure ulcer of right heel, unspecified stage; Z74.01 Bed confinement status; F90.9 Attention-deficit hyperactivity disorder, unspecified type; F41.9 Anxiety disorder, unspecified; Z28.311 Partially vaccinated for COVID-19; Z79.4 Long term (current) use of insulin; Z79.84 Long term (current) use of oral hypoglycemic drugs; Z79.899 Other long term (current) drug therapy; Z86.73 Personal history of transient ischemic attack (TIA), and cerebral infarction without residual deficits; R15.9 Full incontinence of feces
CPT/HCPCS: 36415; 71045; 72220; 80048; 80053; 80202; 82565; 83036; 83605; 84132; 85025; 85027; 85610; 86850; 86900; 86901; 87040; 87070; 87077; 87186; 87205; 96361; 96374; 99284

== ENCOUNTER 2023-05-23 15:16 | Inpatient (IN) | payer OTHER ==
[2023-05-23] MEDS ORDERED: SODIUM CHLORIDE 0.9% 1,000 ML IV STA (15:41)
--- NOTE | 2023-05-23 15:45 | ED ---
General Adult HPI - General Chief complaint: Weakness Stated complaint: Weakness Time Seen by Provider: 05/23/23 15:18 Source: patient, RN notes reviewed Mode of arrival: EMS Limitations: no limitations - History of Present Illness Initial comments: Patient is a pleasant 63-year-old male presenting to the emergency department with general weakness. Symptoms have progressively the past few days. Patient feels weak all over. Patient has not checked his blood sugar a few days and has not taken his insulin. Patient has polydipsia and polyuria. Patient does have known ulcers of his sacrum and heel. - Related Data Home Medications Medication Instructions Recorded Confirmed sitaGLIPtin [Januvia] 100 mg PO HS@199903/02/22 12/08/22 Acetaminophen [Tylenol Arthritis] 650 mg PO Q6H PRN 09/11/22 12/08/22 Calcium Carbonate [Tums] 1,000 mg PO TID PRN 09/11/22 12/08/22 INSULIN ASPART (NovoLOG) [NovoLOG 5 unit SQ [facility] 09/11/22 12/08/22 (formulary)] INSULIN ASPART (NovoLOG) [NovoLOG See Protocol SQ [facility] 09/11/22 12/08/22 (formulary)] Insulin Detemir (Levemir) [Levemir] 10 unit SQ HS@199909/11/22 12/08/22 Loperamide [Imodium] 2 mg PO BID PRN 09/11/22 12/08/22 Melatonin 5 mg PO HS@199909/11/22 12/08/22 Multivitamins, Thera [Multivitamin 1 tab PO DAILY 09/11/22 12/08/22 (formulary)] polyethylene glycoL 3350 [Miralax] 17 gm PO DAILY 09/11/22 12/08/22 Previous Rx's Medication Instructions Recorded Amiodarone [Cordarone] 200 mg PO DAILY tab 03/25/22 Folic Acid 1 mg PO DAILY tab 03/25/22 Furosemide [Lasix] 40 mg PO DAILY tab 03/25/22 Sennosides [Senokot] 8.6 mg PO DAILY tab 03/25/22 Amoxic-Pot Clav 875-125Mg 1 tab PO Q12HR 10 Days #20 tab 12/17/22 [Augmentin 875-125] Gabapentin [Neurontin] 300 mg PO TID #6 cap 12/17/22 HYDROcodone/APAP 5-325MG [[place] 1 tab PO Q4HR PRN 3 Days #6 tab 12/17/22 5-325] Metoprolol Tartrate [Lopressor] 12.5 mg PO BID #30 tab 12/17/22 Allergies Allergy/AdvReac Type Severity Reaction Status Date / Time No Known Allergies Allergy Verified 05/23/23 15:30 Review of Systems ROS Statement: Those systems with pertinent positive or pertinent negative responses have been documented in the HPI. ROS Other: All systems not noted in ROS Statement are negative. Constitutional: Denies: fever Eyes: Denies: eye pain ENT: Denies: ear pain Respiratory: Denies: dyspnea Cardiovascular: Denies: chest pain Endocrine: Reports: fatigue, polydipsia, polyuria Gastrointestinal: Denies: abdominal pain Past Medical History Past Medical History: Diabetes Mellitus Additional Past Medical History / Comment(s): pressure ulcers[Buttock,simone heals ,rt lateral foot] History of Any Multi-Drug Resistant Organisms: None Reported Past Surgical History: Orthopedic Surgery Additional Past Surgical History / Comment(s): back pain son states pt recently "slipped a disc" taking gabapentin. Left leg above the knee amputation, Past Psychological History: No Psychological Hx Reported Smoking Status: Current every day smoker Past Alcohol Use History: Rare Past Drug Use History: None Reported General Exam Limitations: no limitations General appearance: alert, in no apparent distress Head exam: Present: normocephalic Eye exam: Present: normal appearance Respiratory exam: Present: normal lung sounds bilaterally Cardiovascular Exam: Present: regular rate, normal rhythm GI/Abdominal exam: Present: soft. Absent: tenderness Extremities exam: Present: other (left aka) Neurological exam: Present: alert Psychiatric exam: Present: normal affect, normal mood Skin exam: Present: other (Right heel ulcer approximate 3 x 3 cm with eschar formation. Large sacral ulcer approximately 5 x 8 cm, stage IV. Both with foul older and mild drainage.) Course Vital Signs 05/23/23 05/23/23 15:25 16:30 Temperature 98.6 F Pulse Rate 101 H 102 H Respiratory 16 20 Rate Blood Pressure 143/71 134/75 O2 Sat by Pulse 100 98 Oximetry EKG Findings - EKG Results: EKG: interpreted by ERMD, sinus rhythm, normal axis, normal QRS, normal ST/T Medical Decision Making - Medical Decision Making Was pt. sent in by a medical professional or institution (, PA, THERAPEUTIC RECREATION LEADER, urgent care, hospital, or [facility]...) When possible be specific @ -No Did you speak to anyone other than the patient for history (EMS, parent, family, police, friend...)? What history was obtained from this source @ -No Did you review nursing and triage notes (agree or disagree)? Why? @ -I reviewed and agree with nursing and triage notes Were old charts reviewed (outside hosp., previous admission, EMS record, old EKG, old radiological studies, urgent care reports/EKG's, [facility] records)? Report findings @ -Previous admission reviewed Differential Diagnosis (chest pain, altered mental status, abdominal pain women, abdominal pain men, vaginal bleeding, weakness, fever, dyspnea, syncope, headache, dizziness, GI bleed, back pain, seizure, CVA, palpatations, mental health, musculoskeletal)? @ -Differential Weakness: Hypoglycemia, shock, sepsis, hyponatremia, anemia, infection, AL, ETOH, adverse medicine reaction, overdose, stroke, this is not meant to be an all-inclusive list. EKG interpreted by me (3pts min.). @ -As above X-rays interpreted by me (1pt min.). @ -Chest x-ray without obvious abnormality. X-ray of right foot and sacrum with soft tissue changes. CT interpreted by me (1pt min.). @ -None done U/S interpreted by me (1pt. min.). @ -None done What testing was considered but not performed or refused? (CT, X-rays, U/S, labs)? Why? @ -None What meds were considered but not given or refused? Why? @ -None Did you discuss the management of the patient with other professionals (professionals i.e. , PA, THERAPEUTIC RECREATION LEADER, lab, RT, psych nurse, social contact worker, substation electrician, teacher, community cultural development officer, custodial operations manager)? Give summary @ -Case was discussed with Dr. Guillen, who will AL covering Dr. Mendez. He does request consults with vascular and infectious disease. Was smoking cessation discussed for >3mins.? @ -No Was critical care preformed (if so, how long)? @ -32 minutes of critical care time provided Were there social determinants of health that impacted care today? How? (Homelessness, low income, unemployed, alcoholism, drug addiction, transportation, low edu. Level, literacy, decrease access to med. care, penitentiary, rehab)? @ -No Was there de-escalation of care discussed even if they declined (Discuss DNR or withdrawal of care, Hospice)? DNR status @ -No What co-morbidities impacted this encounter? (DM, HTN, Smoking, COPD, CAD, Cancer, CVA, ARF, Chemo, Hep., AIDS, mental health diagnosis, sleep apnea, morbid obesity)? @ -None Was patient admitted / discharged? Hospital course, mention meds given and route, prescriptions, significant lab abnormalities, going to OR and other pert inent info. @ -Patient presents with concerns for weakness and hyperglycemia. Patient has history of ulcers untreated. Patient does have evidence of infected ulcers. Patient meet sepsis criteria diagnosed at 1650. Blood culture and lactic acid and IV antibiotics have already been ordered. Patient will be admitted with consults. Admission orders written. Undiagnosed new problem with uncertain prognosis? @ -No Drug Therapy requiring intensive monitoring for toxicity (Heparin, Nitro, Insulin, Cardizem)? @ -No Were any procedures done? @ -No Diagnosis/symptom? @ -Hyperglycemia, diabetic foot ulcer, sacral ulcer Acute, or Chronic, or Acute on Chronic? @ -Acute, acute on chronic, acute on chronic Uncomplicated (without systemic symptoms) or Complicated (systemic symptoms)? @ -Complicated with sepsis Side effects of treatment? @ -No Exacerbation, Progression, or Severe Exacerbation? @ -No Poses a threat to life or bodily function? How? (Chest pain, USA, AL, pneumonia, PE, COPD, DKA, ARF, appy, cholecystitis, CVA, Diverticulitis, Homicidal, Meri cidal, threat to staff... and all critical care pts) @ -No - Lab Data Result diagrams: 05/23/23 15:41 05/23/23 15:41 Lab Results 05/23/23 05/23/23 05/23/23 Range/Units 15:41 15:41 15:41 WBC 12.3 H (3.8-10.6) k/uL RBC 4.25 L (4.30-5.90) m/uL Hgb 11.0 L (13.0-17.5) gm/dL Hct 34.1 L (39.0-53.0) % MCV 80.2 (80.0-100.0) fL MCH 25.8 (25.0-35.0) pg MCHC 32.2 (31.0-37.0) g/dL RDW 14.8 (11.5-15.5) % Plt Count 339 (150-450) k/uL MPV 7.0 Neutrophils % 79 % Lymphocytes % 12 % Monocytes % 6 % Eosinophils % 2 % Basophils % 0 % Neutrophils # 9.8 H (1.3-7.7) k/uL Lymphocytes # 1.4 (1.0-4.8) k/uL Monocytes # 0.7 (0-1.0) k/uL Eosinophils # 0.2 (0-0.7) k/uL Basophils # 0.1 (0-0.2) k/uL Hypochromasia Slight Sodium 129 L (137-145) mmol/L Potassium 4.7 (3.5-5.1) mmol/L Chloride 92 L (98-107) mmol/L Carbon Dioxide 29 (22-30) mmol/L Anion Gap 8 mmol/L BUN 14 (9-20) mg/dL Creatinine 0.44 L (0.66-1.25) mg/dL Est GFR (CKD-EPI)AfAm >90 (>60 ml/min/1.73 sqM) Est GFR (CKD-EPI)NonAf >90 (>60 ml/min/1.73 sqM) Glucose 373 H (74-99) mg/dL POC Glucose (mg/dL) (70-110) mg/dL POC Glu Insurance Professional ID Plasma Lactic Acid Jermain 1.3 (0.7-2.0) mmol/L Calcium 8.4 (8.4-10.2) mg/dL Total Bilirubin 0.4 (0.2-1.3) mg/dL AST 17 (17-59) U/L ALT 13 (4-49) U/L Alkaline Phosphatase 91 (38-126) U/L Total Protein 6.9 (6.3-8.2) g/dL Albumin 2.8 L (3.5-5.0) g/dL Urine Color Urine Appearance (Clear) Urine pH (5.0-8.0) Ur Specific [place] (1.001-1.035) Urine Protein (Negative) Urine Glucose (UA) (Negative) Urine Ketones (Negative) Urine Blood (Negative) Urine Nitrite (Negative) Urine Bilirubin (Negative) Urine Urobilinogen (<2.0) mg/dL Ur Leukocyte Esterase (Negative) Urine RBC (0-5) /hpf Urine WBC (0-5) /hpf Urine Yeast (Budding) (None) /hpf 05/23/23 05/23/23 Range/Units 15:54 15:56 WBC (3.8-10.6) k/uL RBC (4.30-5.90) m/uL Hgb (13.0-17.5) gm/dL Hct (39.0-53.0) % MCV (80.0-100.0) fL MCH (25.0-35.0) pg MCHC (31.0-37.0) g/dL RDW (11.5-15.5) % Plt Count (150-450) k/uL MPV Neutrophils % % Lymphocytes % % Monocytes % % Eosinophils % % Basophils % % Neutrophils # (1.3-7.7) k/uL Lymphocytes # (1.0-4.8) k/uL Monocytes # (0-1.0) k/uL Eosinophils # (0-0.7) k/uL Basophils # (0-0.2) k/uL Hypochromasia Sodium (137-145) mmol/L Potassium (3.5-5.1) mmol/L Chloride (98-107) mmol/L Carbon Dioxide (22-30) mmol/L Anion Gap mmol/L BUN (9-20) mg/dL Creatinine (0.66-1.25) mg/dL Est GFR (CKD-EPI)AfAm (>60 ml/min/1.73 sqM) Est GFR (CKD-EPI)NonAf (>60 ml/min/1.73 sqM) Glucose (74-99) mg/dL POC Glucose (mg/dL) 463 H (70-110) mg/dL POC Glu Insurance Professional ID Minor Lockhart Plasma Lactic Acid Jermain (0.7-2.0) mmol/L Calcium (8.4-10.2) mg/dL Total Bilirubin (0.2-1.3) mg/dL AST (17-59) U/L ALT (4-49) U/L Alkaline Phosphatase (38-126) U/L Total Protein (6.3-8.2) g/dL Albumin (3.5-5.0) g/dL Urine Color Yellow Urine Appearance Cloudy (Clear) Urine pH 6.0 (5.0-8.0) Ur Specific [place] 1.032 (1.001-1.035) Urine Protein Trace H (Negative) Urine Glucose (UA) 4+ H (Negative) Urine Ketones Negative (Negative) Urine Blood Moderate H (Negative) Urine Nitrite Negative (Negative) Urine Bilirubin Negative (Negative) Urine Urobilinogen <2.0 (<2.0) mg/dL Ur Leukocyte Esterase Large H (Negative) Urine RBC 15 H (0-5) /hpf Urine WBC 136 H (0-5) /hpf Urine Yeast (Budding) Occasional H (None) /hpf Critical Care Time Critical Care Time: Yes Total Critical Care Time: 32 Disposition Clinical Impression: Diabetic foot infection, Sepsis Disposition: ADMITTED IP TO THIS HOSP Condition: Serious Is patient prescribed a controlled substance at d/c from ED?: No Referrals: Benjamin Mendez MD [Primary Care Provider] - 1-2 days Time of Disposition: 16:54
[2023-05-23 15:58] LABS: Glucose,Whole Blood 463 mg/dL (70-110)
[2023-05-23 16:06] LABS: Basophils # (A) 0.1 k/uL (0-0.2); Basophils % (A) 0 %; Eosinophils # (A) 0.2 k/uL (0-0.7); Eosinophils % (A) 2 %; HCT 34.1 % (39.0-53.0); Hypochromasia Slight; Lymphocytes # (A) 1.4 k/uL (1.0-4.8); Lymphocytes % (A) 12 %; MCH 25.8 pg (25.0-35.0); MCHC 32.2 g/dL (31.0-37.0); MCV 80.2 fL (80.0-100.0); Monocytes # (A) 0.7 k/uL (0-1.0); Monocytes % (A) 6 %; Neutrophils # (A) 9.8 k/uL (1.3-7.7); Neutrophils % (A) 79 %; Platelet Count 339 k/uL (150-450); RBC 4.25 m/uL (4.30-5.90); RDW 14.8 % (11.5-15.5); WBC 12.3 k/uL (3.8-10.6)
[2023-05-23 16:08] LABS: Appearance,Urine Cloudy (Clear); Bilirubin,Urine Negative (Negative); Blood,Urine Moderate (Negative); Budding Yeast,Urine Occasional /hpf; Color,Urine Yellow; Glucose,Urine (UA) 4+ (Negative); Ketones,Urine Negative (Negative); Leukocyte Esterase,Urine Large (Negative); Nitrite,Urine Negative (Negative); Protein,Urine Trace (Negative); RBC,Urine 15 /hpf (0-5); Specific Gravity,Urine 1.032 (1.001-1.035); Urobilinogen,Urine <2.0 mg/dL (<2.0); WBC,Urine 136 /hpf (0-5)
[2023-05-23] MEDS ORDERED: INSULIN REGULAR 100 UNIT/ML VIAL (IV) IV ONE (16:24)
[2023-05-23 16:25] LABS: ALT 13 U/L (4-49); AST 17 U/L (17-59); African American GFR (CKD) >90 (>60 ml/min/1.73 sqM); Albumin 2.8 g/dL (3.5-5.0); Alkaline Phosphatase 91 U/L (38-126); Anion Gap 8 mmol/L; Blood Urea Nitrogen 14 mg/dL (9-20); Calcium 8.4 mg/dL (8.4-10.2); Carbon Dioxide 29 mmol/L (22-30); Chloride 92 mmol/L (98-107); Glucose 373 mg/dL (74-99); Non-African American GFR(CKD) >90 (>60 ml/min/1.73 sqM); Potassium 4.7 mmol/L (3.5-5.1); Sodium 129 mmol/L (137-145); Total Bilirubin 0.4 mg/dL (0.2-1.3); Total Protein 6.9 g/dL (6.3-8.2)
[2023-05-23] MEDS ORDERED: VANCOMYCIN IV PER PHARMACY 1 EACH MISC MISCELLANE PRN (16:50)
[2023-05-23] MEDS ORDERED: VANCOMYCIN 1,250 MG in SODIUM CHLORIDE 0.9% 250 ML IVPB STA (16:54)
[2023-05-23] MEDS ORDERED: NALOXONE 0.4 MG/ML 1 ML VIAL IV PRN (16:55)
[2023-05-23] MEDS ORDERED: DEXTROSE 50% SYRINGE 50 ML IVP PRN ×2 (17:00)
--- NOTE | 2023-05-23 17:15 | XR ---
EXAMINATION TYPE: XR chest 2V, XR sacrum coccyx 3 views, XR foot complete 3 views RT DATE OF EXAM: 05/23/2023 COMPARISON: Chest 04/11/2023, sacrum and coccyx 12/09/2022. Right flank 12/08/2022 HISTORY: 63-year-old male with weakness. Also optic and right heel. FINDINGS: CHEST: The cardiomediastinal silhouette, aorta, and pulmonary vasculature are within normal limits. Mild inc reased retrosternal clear space. Otherwise, lungs and pleural spaces are clear. Sacrum and coccyx: Limited by diffuse osteopenia. There is a deep ulcer at the coccyx. As compared to 12/09/2022. There h as been osseous destruction of the residual low distal coccygeal segments. Right foot: Limited by the degree of severe osteopenia. Medial plate and screw fixation distal fibula. There is a subtle articular surface lucency at the first proximal phalangeal head at the level of the IP joint seen on both AP and oblique views. Posterior and plantar heel ulcers. There is subtle poor definition of the underlying calcaneal cortex in both of these locations. Marked diffuse soft tissue swelling i s increased from prior. IMPRESSION: 1. Chest: Hyperinflation may reflect underlying emphysema. Clinically correlate. No acute cardiopulmo nary process. 2. Sacrum and coccyx: Deep decubitus ulcer with interval osseous destruction of the distal coccygeal segments. Findings compatible with a contiguous osteomyelitis. 3. Right foot: Limited by the degree of severe osteopenia. Possible subtle nondisplaced intra-articul ar fracture at the first proximal phalangeal head. In addition, ulcers at the posterior and plantar h eel with new subtle indistinctness of the underlying calcaneal cortex in both locations. Findings hig hly suspicious for early changes related to osteomyelitis.
[2023-05-23] MEDS: SODIUM CHLORIDE 0.9% 1,000 ML IV SCH (17:30)
[2023-05-23] MEDS: INSULIN ASPART (NovoLOG) 100 UNIT/ML VIAL SQ SCH ×2 (17:31→21:44)
[2023-05-23 17:52] LABS: Glucose,Whole Blood 292 mg/dL (70-110)
[2023-05-23 18:26] LABS: Partial Thromboplastin Time 24.6 sec (22.0-30.0); Prothrombin Time 11.2 sec (10.0-12.5)
[2023-05-23] MEDS: AMPICILLIN-SULBACTAM 3 GM in SODIUM CHLORIDE 0.9% 100 ML IVPB SCH (18:43)
[2023-05-23 21:27] LABS: Glucose,Whole Blood 416 mg/dL (70-110)
[2023-05-24 00:57] LABS: Glucose,Whole Blood 398 mg/dL (70-110)
[2023-05-24] MEDS: AMPICILLIN-SULBACTAM 3 GM in SODIUM CHLORIDE 0.9% 100 ML IVPB SCH ×4 (00:58→17:42)
[2023-05-24] MEDS: VANCOMYCIN 1,250 MG in SODIUM CHLORIDE 0.9% 250 ML IVPB SCH ×5 (03:41→22:05)
[2023-05-24] MEDS: SODIUM CHLORIDE 0.9% 1,000 ML IV SCH ×2 (06:48→22:06)
[2023-05-24 07:25] LABS: Glucose,Whole Blood 263 mg/dL (70-110)
[2023-05-24] MEDS: INSULIN ASPART (NovoLOG) 100 UNIT/ML VIAL SQ SCH ×4 (07:33→22:06)
--- NOTE | 2023-05-24 10:12 | US ---
EXAMINATION TYPE: US arterial LE multi level DATE OF EXAM: 05/24/2023 9:37 AM CLINICAL INDICATION: Male, 63 years old with history of RLE non-healing wound; Non-healing wound righ t heel/ left leg amputated below knee History of: Diabetic: Yes Vascular Ulcers: Yes Gangrene: Yes Doppler Waveforms: Right: Monophasic Left: Surgically absent. Right Brachial Pressure: Deferred due to IV site Left Brachial Pressure: 108 Ankle-Brachial Indices: Right: 0.8 Left: Amputated (Vessel hardening > 1.4; Normal 0.9 - 1.4, Moderate 0.7 - 0.9, Severe 0.5-0.7) Toe Brachial Indices: Right: 0.4 Left: Amputated IMPRESSION: Moderate right peripheral vascular disease by ankle brachial indices.
--- NOTE | 2023-05-24 10:13 | P.GSCN ---
History of Present Illness Consult date: 05/24/23 Reason for Consult: Infected right heel wound Requesting physician: Hudson Yu History of present illness: This is a pleasant 63-year-old male with past medical history including diabetes mellitus, diabetic neuropathy, chronic wounds, bedridden, current smoker and known to vascular surgery for history of previous left [id number]-txg-[id number] amputation who had presented to the emergency department for generalized weakness. Patient was noted to have a sacral as well as a significant right heel and Achilles wound with bowel odor. Patient states his right heel wound has not ever healed, he has not been getting wound care other than his sons dressing the wound as he has recently lost his insurance for the last couple months, and is still trying to get it sorted out. It was also reported that he had not been taking his insulin and he didn't come in with a blood sugar in the 400s. He denies any fevers or chills. He has not followed up with vascular surgery quite some time. He did undergo a left xeytu-[id number]-[id number] amputation in November [address] Zee as well as an excisional debridement of the right heel in November 2022. X-ray of the right foot report severe osteopenia, possible subtle nondisplaced intra-articula r fracture at the first proximal phalangeal head. In addition, ulcers at the posterior and plantar healed with new subtle indistinctness of the underlying calcaneal cortex in both locations. Findings highly suspicious for early changes related to osteomyelitis. Patient also states he does have hardware in his right lower extremity from previous injury. Preliminary wound culture growing gram-positive cocci, gram-positive bacilli and gram-negative bacilli. Patient is currently afebrile. He does have some pain in the right lower extremity but has no feeling in his right foot. States that has had a foul odor for some time now. Denies fevers or chills at home, denies any abdominal pain, nausea, vomiting, chest pain or shortness of breath. Review of Systems A 14 point review systems was completed all pertinent positives and negatives as stated in the HPI. Past Medical History Past Medical History: Diabetes Mellitus Additional Past Medical History / Comment(s): pressure ulcers[Buttock,simone heals ,rt lateral foot] History of Any Multi-Drug Resistant Organisms: None Reported Past Surgical History: Orthopedic Surgery Additional Past Surgical History / Comment(s): back pain son states pt recently "slipped a disc" taking gabapentin. Left leg above the knee amputation, Past Psychological History: No Psychological Hx Reported Smoking Status: Current every day smoker Past Alcohol Use History: Rare Past Drug Use History: None Reported Medications and Allergies Home Medications Medication Instructions Recorded Confirmed Type sitaGLIPtin [Januvia] 100 mg PO HS 03/02/22 05/23/23 History Amiodarone [Cordarone] 200 mg PO DAILY tab 03/25/22 05/23/23 Rx Folic Acid 1 mg PO DAILY tab 03/25/22 05/23/23 Rx Furosemide [Lasix] 40 mg PO DAILY tab 03/25/22 05/23/23 Rx INSULIN ASPART (NovoLOG) [NovoLOG See Protocol SQ AC-TID 09/11/22 05/23/23 History (formulary)] Melatonin 5 mg PO HS 09/11/22 05/23/23 History Gabapentin [Neurontin] 300 mg PO TID #6 cap 12/17/22 05/23/23 Rx Ascorbic Acid [Vitamin C] 1,000 mg PO DAILY 05/23/23 05/23/23 History Ergocalciferol (Vitamin D2) 1,250 mcg PO MO 05/23/23 05/23/23 History [Drisdol (50,000 Iu)] HYDROcodone/APAP 10-325MG [[place] 1 tab PO QID PRN 05/23/23 05/23/23 History 10-325] Insulin Detemir [Levemir Flexpen] 10 units SQ HS 05/23/23 05/23/23 History Metoprolol Tartrate [Lopressor] 12.5 mg PO BID 05/23/23 05/23/23 History methocarbamoL [Robaxin] 500 mg PO QID PRN 05/23/23 05/23/23 History Allergies Allergy/AdvReac Type Severity Reaction Status Date / Time No Known Allergies Allergy Verified 05/23/23 17:39 Surgical - Exam Vital Signs Temp Pulse Resp BP Pulse Ox 98.6 F 101 H 16 143/71 100 05/23/23 15:25 05/23/23 15:25 05/23/23 15:25 05/23/23 15:25 05/23/23 15:25 General appearance: The patient is alert, oriented, appears in no acute distress. HET: Head is normocephalic and atraumatic. Neck: Supple. Heart: Regular. Lungs: Equal expansion, normal respiratory effort. Abdomen: Soft, nontender, nondistended. Extremities: Bilateral palpable femoral pulses. Left xbyit-arf-[id number] amputation stump well healed. Right foot swelling, infected diabetic pressure wound to right heel and Achilles with eschar, malodorous. Neurological: Patient is alert and oriented 3. Results - Labs 05/23/23 15:41 05/23/23 15:41 Abnormal Lab Results - Last 24 Hours (Table) 05/23/23 05/23/23 05/23/23 Range/Units 15:41 15:41 15:54 WBC 12.3 H (3.8-10.6) k/uL RBC 4.25 L (4.30-5.90) m/uL Hgb 11.0 L (13.0-17.5) gm/dL Hct 34.1 L (39.0-53.0) % Neutrophils # 9.8 H (1.3-7.7) k/uL Sodium 129 L (137-145) mmol/L Chloride 92 L (98-107) mmol/L Creatinine 0.44 L (0.66-1.25) mg/dL Glucose 373 H (74-99) mg/dL POC Glucose (mg/dL) 463 H (70-110) mg/dL Albumin 2.8 L (3.5-5.0) g/dL Urine Protein (Negative) Urine Glucose (UA) (Negative) Urine Blood (Negative) Ur Leukocyte Esterase (Negative) Urine RBC (0-5) /hpf Urine WBC (0-5) /hpf Urine Yeast (Budding) (None) /hpf 05/23/23 05/23/23 05/23/23 Range/Units 15:56 17:50 21:26 WBC (3.8-10.6) k/uL RBC (4.30-5.90) m/uL Hgb (13.0-17.5) gm/dL Hct (39.0-53.0) % Neutrophils # (1.3-7.7) k/uL Sodium (137-145) mmol/L Chloride (98-107) mmol/L Creatinine (0.66-1.25) mg/dL Glucose (74-99) mg/dL POC Glucose (mg/dL) 292 H 416 H (70-110) mg/dL Albumin (3.5-5.0) g/dL Urine Protein Trace H (Negative) Urine Glucose (UA) 4+ H (Negative) Urine Blood Moderate H (Negative) Ur Leukocyte Esterase Large H (Negative) Urine RBC 15 H (0-5) /hpf Urine WBC 136 H (0-5) /hpf Urine Yeast (Budding) Occasional H (None) /hpf 05/24/23 05/24/23 Range/Units 00:55 07:24 WBC (3.8-10.6) k/uL RBC (4.30-5.90) m/uL Hgb (13.0-17.5) gm/dL Hct (39.0-53.0) % Neutrophils # (1.3-7.7) k/uL Sodium (137-145) mmol/L Chloride (98-107) mmol/L Creatinine (0.66-1.25) mg/dL Glucose (74-99) mg/dL POC Glucose (mg/dL) 398 H 263 H (70-110) mg/dL Albumin (3.5-5.0) g/dL Urine Protein (Negative) Urine Glucose (UA) (Negative) Urine Blood (Negative) Ur Leukocyte Esterase (Negative) Urine RBC (0-5) /hpf Urine WBC (0-5) /hpf Urine Yeast (Budding) (None) /hpf Microbiology - Last 24 Hours (Table) 05/23/23 15:42 Gram Stain - Preliminary Foot - Right 05/23/23 15:42 Gram Stain - Preliminary Buttock Diabetes panel 05/23/23 Range/Units 15:41 Sodium 129 L (137-145) mmol/L Potassium 4.7 (3.5-5.1) mmol/L Chloride 92 L (98-107) mmol/L Carbon Dioxide 29 (22-30) mmol/L BUN 14 (9-20) mg/dL Creatinine 0.44 L (0.66-1.25) mg/dL Glucose 373 H (74-99) mg/dL Calcium 8.4 (8.4-10.2) mg/dL AST 17 (17-59) U/L ALT 13 (4-49) U/L Alkaline Phosphatase 91 (38-126) U/L Total Protein 6.9 (6.3-8.2) g/dL Albumin 2.8 L (3.5-5.0) g/dL Calcium panel 05/23/23 Range/Units 15:41 Calcium 8.4 (8.4-10.2) mg/dL Albumin 2.8 L (3.5-5.0) g/dL Pituitary panel 05/23/23 Range/Units 15:41 Sodium 129 L (137-145) mmol/L Potassium 4.7 (3.5-5.1) mmol/L Chloride 92 L (98-107) mmol/L Carbon Dioxide 29 (22-30) mmol/L BUN 14 (9-20) mg/dL Creatinine 0.44 L (0.66-1.25) mg/dL Glucose 373 H (74-99) mg/dL Calcium 8.4 (8.4-10.2) mg/dL Adrenal panel 05/23/23 Range/Units 15:41 Sodium 129 L (137-145) mmol/L Potassium 4.7 (3.5-5.1) mmol/L Chloride 92 L (98-107) mmol/L Carbon Dioxide 29 (22-30) mmol/L BUN 14 (9-20) mg/dL Creatinine 0.44 L (0.66-1.25) mg/dL Glucose 373 H (74-99) mg/dL Calcium 8.4 (8.4-10.2) mg/dL Total Bilirubin 0.4 (0.2-1.3) mg/dL AST 17 (17-59) U/L ALT 13 (4-49) U/L Alkaline Phosphatase 91 (38-126) U/L Total Protein 6.9 (6.3-8.2) g/dL Albumin 2.8 L (3.5-5.0) g/dL - Imaging Comments: X-ray of the right foot report severe osteopenia, possible subtle nondisplaced intra-articular fracture at the first proximal phalangeal head. In addition, ulcers at the posterior and plantar healed with new subtle indistinctness of the underlying calcaneal cortex in both locations. Findings highly suspicious for early changes related to osteomyelitis. Chest x-ray reports hyperinflation may reflect underlying emphysema. Clinically correlate. No acute cardiopulmonary process. Sacrum and coccyx x-ray report date decubitus ulcer with interval osseous destruction of the distal coccygeal segments. Findings compatible with continuous osteomyelitis. Assessment and Plan Assessment: 1. Infected right diabetic heel and Achilles wound 2. Diabetes mellitus 3. Current tobacco use 4. Sacral wound 5. Bedridden, nonambulatory 6. History of left lower extremity diabetic wound status post left skcer-kki-cufz amputation Plan: 1. Right lower extremity arterial ultrasound ordered 2. Antibiotics per recommendations from infectious disease and primary medical team 3. X-ray of right lower extremity evaluate for hardware 4. Plan for right jtkgm-row-ixck amputation, tentatively scheduled for , 05/26/2023 5. Defer sacral wound to infectious disease recommendations and primary medical recommendations, consider possible general surgery evaluation if needed Thank you for this consultation, we will continue to follow. The impression and plan of care has been dictated as directed. Dr. Allen I performed a history and examination of this patient, discussed the same with the dictator. I agree with the dictator's note ,documented as a scribe. Any additional findings or plans will be noted.
[2023-05-24] MEDS ORDERED: DEXTROSE 50% SYRINGE 50 ML IVP PRN ×2 (10:26)
[2023-05-24 10:44] LABS: HCT 27.9 % (39.6-50.0); HGB 8.7 g/dL (13.0-17.0); MCH 24.7 pg (27.0-32.0); MCHC 31.2 g/dL (32.0-37.0); MCV 79.3 FL (80.0-97.0); NRBC Per 100 WBC 0 X 10*3/uL (0.00-0.01); Platelet Count 306 X 10*3/uL (140-440); RBC 3.52 X 10*6/uL (4.40-5.60); RDW 14.9 % (11.5-14.5)
[2023-05-24 10:45] LABS: Basophils # (A) 0.06 X 10*3/uL (0.00-0.10); Basophils % (A) 0.6 %; Eosinophils # (A) 0.24 X 10*3/uL (0.04-0.35); Eosinophils % (A) 2.3 %; Lymphocytes # (A) 2.03 X 10*3/uL (0.90-5.00); Lymphocytes % (A) 19.5 %; Monocytes # (A) 0.82 X 10*3/uL (0.20-1.00); Monocytes % (A) 7.9 %; Neutrophils % (A) 69.2 %
[2023-05-24 11:00] LABS: ALT 7 U/L (10-49); AST 9 U/L (14-35); Albumin 2.1 g/dL (3.8-4.9); Albumin/Globulin Ratio 0.64 Ratio (1.60-3.17); Alkaline Phosphatase 48 U/L (41-126); Blood Urea Nitrogen 5.6 mg/dL (9.0-27.0); Calcium 7.7 mg/dL (8.7-10.3); Carbon Dioxide 25.9 mmol/L (21.6-31.8); Chloride 102 mmol/L (96-109); Globulin 3.3 g/dL (1.6-3.3); Glucose 241 mg/dL (70-110); Potassium 3.4 mmol/L (3.5-5.5); Sodium 135 mmol/L (135-145); Total Bilirubin 0.3 mg/dL (0.3-1.2); Total Protein 5.4 g/dL (6.2-8.2)
[2023-05-24] MEDS: ENOXAPARIN 40 MG/0.4 ML SYRINGE SQ SCH (11:16)
[2023-05-24] MEDS: GABAPENTIN 300 MG CAP PO SCH ×3 (11:16→22:03)
[2023-05-24] MEDS: ASCORBIC ACID 500 MG TAB PO SCH (11:16)
[2023-05-24] MEDS: AMIODARONE 200 MG TAB PO SCH (11:16)
[2023-05-24] MEDS: FOLIC ACID 1 MG TAB PO SCH (11:16)
[2023-05-24] MEDS: METOPROLOL TARTRATE 12.5 MG TAB PO SCH ×2 (11:16→22:03)
[2023-05-24] MEDS ORDERED: ONDANSETRON 4 MG/2 ML VIAL IVP PRN (12:49)
[2023-05-24] MEDS ORDERED: ACETAMINOPHEN TAB 325 MG TAB PO PRN (12:49)
[2023-05-24] MEDS ORDERED: LACTULOSE 20 GM/30 ML CUP PO PRN (12:49)
[2023-05-24] MEDS ORDERED: CALCIUM CARBONATE 500 MG CHEWABLE PO PRN (12:49)
[2023-05-24 13:20] LABS: Glucose,Whole Blood 335 mg/dL (70-110)
--- NOTE | 2023-05-24 14:43 | P.GSCN ---
History of Present Illness Consult date: 05/24/23 Reason for Consult: Sacral and right heel decubitus Requesting physician: Jerardo Guillen History of present illness: This is a severely debilitated 63-year-old gentleman with history of left AKA about 5 months ago. For several months he has had a severe sacral decubitus and has had ulceration on the posterior right heel. He is a diabetic. Has a history of cigarette smoking. He has a known history of severe occlusive disease. Review of Systems - Constitutional Reports chronic pain, Reports lethargy, Reports weakness - Musculoskeletal Musculoskeleta Comment(s): Status post left AKA. - Integumentary Integumentary Comment(s): Sacral decubitus for several months. Past Medical History Past Medical History: Diabetes Mellitus Additional Past Medical History / Comment(s): pressure ulcers[Buttock,simone heals ,rt lateral foot] History of Any Multi-Drug Resistant Organisms: None Reported Past Surgical History: Orthopedic Surgery Additional Past Surgical History / Comment(s): back pain son states pt recently "slipped a disc" taking gabapentin. Left leg above the knee amputation, Past Psychological History: No Psychological Hx Reported Smoking Status: Current every day smoker Past Alcohol Use History: Rare Past Drug Use History: None Reported Medications and Allergies Home Medications Medication Instructions Recorded Confirmed Type sitaGLIPtin [Januvia] 100 mg PO HS 03/02/22 05/23/23 History Amiodarone [Cordarone] 200 mg PO DAILY tab 03/25/22 05/23/23 Rx Folic Acid 1 mg PO DAILY tab 03/25/22 05/23/23 Rx Furosemide [Lasix] 40 mg PO DAILY tab 03/25/22 05/23/23 Rx INSULIN ASPART (NovoLOG) [NovoLOG See Protocol SQ AC-TID 09/11/22 05/23/23 History (formulary)] Melatonin 5 mg PO HS 09/11/22 05/23/23 History Gabapentin [Neurontin] 300 mg PO TID #6 cap 12/17/22 05/23/23 Rx Ascorbic Acid [Vitamin C] 1,000 mg PO DAILY 05/23/23 05/23/23 History Ergocalciferol (Vitamin D2) 1,250 mcg PO MO 05/23/23 05/23/23 History [Drisdol (50,000 Iu)] HYDROcodone/APAP 10-325MG [[place] 1 tab PO QID PRN 05/23/23 05/23/23 History 10-325] Insulin Detemir [Levemir Flexpen] 10 units SQ HS 05/23/23 05/23/23 History Metoprolol Tartrate [Lopressor] 12.5 mg PO BID 05/23/23 05/23/23 History methocarbamoL [Robaxin] 500 mg PO QID PRN 05/23/23 05/23/23 History Allergies Allergy/AdvReac Type Severity Reaction Status Date / Time No Known Allergies Allergy Verified 05/23/23 17:39 Surgical - Exam Osteopathic Statement: *. No significant issues noted on an osteopathic structural exam other than those noted in the History and Physical/Consult. Vital Signs Temp Pulse Resp BP Pulse Ox 98.6 F 101 H 16 143/71 100 05/23/23 15:25 05/23/23 15:25 05/23/23 15:25 05/23/23 15:25 05/23/23 15:25 - General well developed, well nourished, no distress - Eyes normal ocular movement, no icteric - ENT no hearing loss, no congestion - Neck no masses, trachea midline - Respiratory normal respiratory effort, clear to auscultation - Abdomen Abdomen: soft, non tender, no guarding, no rigid, no rebound - Integumentary no rash, no abnormal pigmentation - Neurologic no disoriented, no combative - Musculoskeletal Status post left AKA. - Psychiatric oriented to time, oriented to person, oriented to place, speech is normal, memory intact Large sacral decubitus with surrounding eroded edges and some small areas of palpable sacrum. Results - Labs 05/24/23 08:16 05/24/23 08:16 Abnormal Lab Results - Last 24 Hours (Table) 05/23/23 05/23/23 05/23/23 Range/Units 15:41 15:41 15:54 WBC 12.3 H (3.8-10.6) k/uL RBC 4.25 L (4.30-5.90) m/uL Hgb 11.0 L (13.0-17.5) gm/dL Hct 34.1 L (39.0-53.0) % MCV (80.0-97.0) FL MCH (27.0-32.0) pg MCHC (32.0-37.0) g/dL RDW (11.5-14.5) % MPV (9.5-12.2) FL Immature Gran # (0.00-0.04) X 10*3/uL Neutrophils # 9.8 H (1.3-7.7) k/uL Sodium 129 L (137-145) mmol/L Potassium (3.5-5.5) mmol/L Chloride 92 L (98-107) mmol/L BUN (9.0-27.0) mg/dL Creatinine 0.44 L (0.66-1.25) mg/dL Glucose 373 H (74-99) mg/dL POC Glucose (mg/dL) 463 H (70-110) mg/dL Hemoglobin A1c (<=6.0) % Calcium (8.7-10.3) mg/dL AST (14-35) U/L ALT (10-49) U/L Total Protein (6.2-8.2) g/dL Albumin 2.8 L (3.5-5.0) g/dL Albumin/Globulin Ratio (1.60-3.17) Ratio Urine Protein (Negative) Urine Glucose (UA) (Negative) Urine Blood (Negative) Ur Leukocyte Esterase (Negative) Urine RBC (0-5) /hpf Urine WBC (0-5) /hpf Urine Yeast (Budding) (None) /hpf 05/23/23 05/23/23 05/23/23 Range/Units 15:56 17:50 21:26 WBC (3.8-10.6) k/uL RBC (4.30-5.90) m/uL Hgb (13.0-17.5) gm/dL Hct (39.0-53.0) % MCV (80.0-97.0) FL MCH (27.0-32.0) pg MCHC (32.0-37.0) g/dL RDW (11.5-14.5) % MPV (9.5-12.2) FL Immature Gran # (0.00-0.04) X 10*3/uL Neutrophils # (1.3-7.7) k/uL Sodium (137-145) mmol/L Potassium (3.5-5.5) mmol/L Chloride (98-107) mmol/L BUN (9.0-27.0) mg/dL Creatinine (0.66-1.25) mg/dL Glucose (74-99) mg/dL POC Glucose (mg/dL) 292 H 416 H (70-110) mg/dL Hemoglobin A1c (<=6.0) % Calcium (8.7-10.3) mg/dL AST (14-35) U/L ALT (10-49) U/L Total Protein (6.2-8.2) g/dL Albumin (3.5-5.0) g/dL Albumin/Globulin Ratio (1.60-3.17) Ratio Urine Protein Trace H (Negative) Urine Glucose (UA) 4+ H (Negative) Urine Blood Moderate H (Negative) Ur Leukocyte Esterase Large H (Negative) Urine RBC 15 H (0-5) /hpf Urine WBC 136 H (0-5) /hpf Urine Yeast (Budding) Occasional H (None) /hpf 05/24/23 05/24/23 05/24/23 Range/Units 00:55 07:24 08:16 WBC (3.8-10.6) k/uL RBC (4.30-5.90) m/uL Hgb (13.0-17.5) gm/dL Hct (39.0-53.0) % MCV (80.0-97.0) FL MCH (27.0-32.0) pg MCHC (32.0-37.0) g/dL RDW (11.5-14.5) % MPV (9.5-12.2) FL Immature Gran # (0.00-0.04) X 10*3/uL Neutrophils # (1.3-7.7) k/uL Sodium (137-145) mmol/L Potassium (3.5-5.5) mmol/L Chloride (98-107) mmol/L BUN (9.0-27.0) mg/dL Creatinine (0.66-1.25) mg/dL Glucose (74-99) mg/dL POC Glucose (mg/dL) 398 H 263 H (70-110) mg/dL Hemoglobin A1c 11.5 H (<=6.0) % Calcium (8.7-10.3) mg/dL AST (14-35) U/L ALT (10-49) U/L Total Protein (6.2-8.2) g/dL Albumin (3.5-5.0) g/dL Albumin/Globulin Ratio (1.60-3.17) Ratio Urine Protein (Negative) Urine Glucose (UA) (Negative) Urine Blood (Negative) Ur Leukocyte Esterase (Negative) Urine RBC (0-5) /hpf Urine WBC (0-5) /hpf Urine Yeast (Budding) (None) /hpf 05/24/23 05/24/23 05/24/23 Range/Units 08:16 08:16 13:18 WBC 10.40 H (3.8-10.6) k/uL RBC 3.52 L (4.30-5.90) m/uL Hgb 8.7 L (13.0-17.5) gm/dL Hct 27.9 L (39.0-53.0) % MCV 79.3 L (80.0-97.0) FL MCH 24.7 L (27.0-32.0) pg MCHC 31.2 L (32.0-37.0) g/dL RDW 14.9 H (11.5-14.5) % MPV 9.0 L (9.5-12.2) FL Immature Gran # 0.05 H (0.00-0.04) X 10*3/uL Neutrophils # (1.3-7.7) k/uL Sodium (137-145) mmol/L Potassium 3.4 L (3.5-5.5) mmol/L Chloride (98-107) mmol/L BUN 5.6 L (9.0-27.0) mg/dL Creatinine 0.4 L (0.66-1.25) mg/dL Glucose 241 H (74-99) mg/dL POC Glucose (mg/dL) 335 H (70-110) mg/dL Hemoglobin A1c (<=6.0) % Calcium 7.7 L (8.7-10.3) mg/dL AST 9 L (14-35) U/L ALT 7 L (10-49) U/L Total Protein 5.4 L (6.2-8.2) g/dL Albumin 2.1 L (3.5-5.0) g/dL Albumin/Globulin Ratio 0.64 L (1.60-3.17) Ratio Urine Protein (Negative) Urine Glucose (UA) (Negative) Urine Blood (Negative) Ur Leukocyte Esterase (Negative) Urine RBC (0-5) /hpf Urine WBC (0-5) /hpf Urine Yeast (Budding) (None) /hpf Microbiology - Last 24 Hours (Table) 05/23/23 15:42 Gram Stain - Preliminary Foot - Right 05/23/23 15:42 Gram Stain - Preliminary Buttock Diabetes panel 05/23/23 05/24/23 05/24/23 Range/Units 15:41 08:16 08:16 Sodium 129 L 135 (137-145) mmol/L Potassium 4.7 3.4 L (3.5-5.1) mmol/L Chloride 92 L 102 (98-107) mmol/L Carbon Dioxide 29 25.9 (22-30) mmol/L BUN 14 5.6 L (9-20) mg/dL Creatinine 0.44 L 0.4 L (0.66-1.25) mg/dL Glucose 373 H 241 H (74-99) mg/dL Hemoglobin A1c 11.5 H (<=6.0) % Calcium 8.4 7.7 L (8.4-10.2) mg/dL AST 17 9 L (17-59) U/L ALT 13 7 L (4-49) U/L Alkaline Phosphatase 91 48 (38-126) U/L Total Protein 6.9 5.4 L (6.3-8.2) g/dL Albumin 2.8 L 2.1 L (3.5-5.0) g/dL Calcium panel 05/23/23 05/24/23 Range/Units 15:41 08:16 Calcium 8.4 7.7 L (8.4-10.2) mg/dL Albumin 2.8 L 2.1 L (3.5-5.0) g/dL Pituitary panel 05/23/23 05/24/23 Range/Units 15:41 08:16 Sodium 129 L 135 (137-145) mmol/L Potassium 4.7 3.4 L (3.5-5.1) mmol/L Chloride 92 L 102 (98-107) mmol/L Carbon Dioxide 29 25.9 (22-30) mmol/L BUN 14 5.6 L (9-20) mg/dL Creatinine 0.44 L 0.4 L (0.66-1.25) mg/dL Glucose 373 H 241 H (74-99) mg/dL Calcium 8.4 7.7 L (8.4-10.2) mg/dL Adrenal panel 05/23/23 05/24/23 Range/Units 15:41 08:16 Sodium 129 L 135 (137-145) mmol/L Potassium 4.7 3.4 L (3.5-5.1) mmol/L Chloride 92 L 102 (98-107) mmol/L Carbon Dioxide 29 25.9 (22-30) mmol/L BUN 14 5.6 L (9-20) mg/dL Creatinine 0.44 L 0.4 L (0.66-1.25) mg/dL Glucose 373 H 241 H (74-99) mg/dL Calcium 8.4 7.7 L (8.4-10.2) mg/dL Total Bilirubin 0.4 0.3 (0.2-1.3) mg/dL AST 17 9 L (17-59) U/L ALT 13 7 L (4-49) U/L Alkaline Phosphatase 91 48 (38-126) U/L Total Protein 6.9 5.4 L (6.3-8.2) g/dL Albumin 2.8 L 2.1 L (3.5-5.0) g/dL Assessment and Plan (1) Diabetic ulcer of right foot associated with diabetes mellitus due to underlying condition, with necrosis of bone Current Visit: Yes Status: Acute Code(s): E08.621 - DIABETES MELLITUS DUE TO UNDERLYING CONDITION W FOOT ULCER; L97.514 - NON-PRS CHRONIC ULCER OTH PRT RIGHT FOOT W NECROSIS OF BONE SNOMED Code(s): 260444321 (2) Stage III pressure ulcer of sacral region Current Visit: No Status: Acute Code(s): L89.153 - PRESSURE ULCER OF SACRAL REGION, STAGE 3 SNOMED Code(s): 58155562238372 Plan: On the short-term I would simply cover both areas of decubiti with Aquasol silver. Vascular surgery has seen him in regards to the right heel ulcer. Concur that right AKA is the most logical course of action at this time. Consider utilizing either Santyl or simple peroxide half-strength with packing to clean up the sacral wound. We would then proceed with wound VAC. Patient would benefit from further follow-up in the wound care center. Prognosis is poor in regards to long-term outcome.
--- NOTE | 2023-05-24 16:34 | XR ---
EXAMINATION TYPE: XR femur RT, XR tibia fibula RT DATE OF EXAM: 05/24/2023 4:06 PM CLINICAL INDICATION:Male, 63 years old with history of needs AKA, has reported hardware in RLE; [facility] COMPARISON: None TECHNIQUE: XR femur RT, XR tibia fibula RT examined in Frontal and lateral projections. FINDINGS: No evidence of acute osseous pathology, joint dislocation, or soft tissue swelling Degeneration changes of the right hip with osteophyte formation and joint space tearing. Osteophyte f ormation of the tibial plateau and patella also present. Fixation hardware involving the distal tibia appears intact. Multifocal degeneration changes of the joints of the foot. IMPRESSION: 1. No evidence of fracture. 2. Rivp-fu-xywmmoth right hip osteoarthrosis. 3. Right tibia fixation hardware appears intact.
[2023-05-24 17:25] LABS: Glucose,Whole Blood 354 mg/dL (70-110)
--- NOTE | 2023-05-24 18:57 | P.HPIM ---
History of Present Illness H&P Date: 05/24/23 Chief Complaint: Worsening wounds This is a 62-year-old patient, follows with Dr. Mendez. Chronic stable medical conditions include ADHD, herniated disc lower back, smoker. Sacral wounds. Left AKA Patient has lost his insurance for about 4-6 weeks. Was unable to follow for wound care. Had been following with [facility]. He has a sacral decubitus. Also wart on the right foot healed. Patient does continue to vaping and occasional cigarettes. Has increasing pain in the lower back in the sacral area and the right heel. Appetite is fair. No fever no chills. Review of systems: GEN.: Tired, EYES: None HEENT: None NECK: None RESPIRATORY: None CARDIOVASCULAR: None GASTROINTESTINAL: None GENITOURINARY: None MUSCULOSKELETAL: As above LYMPHATICS: None HEMATOLOGICAL: None PSYCHIATRY: None NEUROLOGICAL: Weakness of lower extremity. Past medical history to include: Diabetes, possible ADHD, chronic low back pain, herniated disc, atrial fibrillation. COPD. left above-knee amputation Social history: Son lives with the patient. 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 Smokes about a pack a day, now down to a few cigarettes a day. Alcohol occasionally. Physical examination: VITAL SIGNS: 87.6, 99, 17, [address] 6, 99% room air GENERAL: BMI any 0.7, laying in bed EYES: Pupils equal. Conjunctiva normal. HEENT: External appearance of nose and ears normal, oral cavity grossly normal. NECK: JVD not raised; masses not palpable. HEART: First and second heart sounds are normal; no edema. LUNGS: Respiratory rate normal; decreased breath sounds. ABDOMEN: Soft, nontender, liver spleen not palpable, no masses palpable. PSYCH: [Alert and oriented x3; mood and affect tired l. MUSCULOSKELETAL: Left AKA. Right heel wound. Sacral wound. NEUROLOGICAL: Cranial nerves grossly intact; no facial asymmetry, right foot drop. LYMPHATICS: No lymph nodes palpable in the axilla and neck INVESTIGATIONS, reviewed in the clinical context: 05/24/2023: White count 10.4 hemoglobin 8.7 weight 07/02/2005 sodium 135 potassium 3.4 BUN 5.6 creatinine 0.4 HbA1c 11.5 Ultrasound arterial lower extremity moderate right PAD with ankle brachial indices Sacral and coccygeal x-ray: Deep decubitus ulcer with interval osseous destruction of the distal coccygeal segments. Right foot x-ray severe osteopenia. Chest x-ray film personally reviewed by me-hyperinflation EKG tracing personally reviewed by me-normal sinus rhythm Assessment and plan: -Extensive decubitus ulcers including the right heel, ll, sacrum/coccyx. Associated with possible acute on osteomyelitis. Surrounding cellulitis. Vascular surgery and ID consulted Gen. surgery and wound care team consulted for sacral wound IV Unasyn and IV vancomycin Tentative plan for right [id number] amputation for May 26 -Left AKA -Paroxysmal atrial fibrillation: sinus rhythm Amiodarone. Lopressor. -Diabetes mellitus type 2, chronically on insulin Follow Accu-Cheks. -COPD in a current smoker Bronchodilators as needed -Chronic nicotine dependence, cigarette smoker Nicotine patch -Chronic medical debility. Non-ambulatory -Full code Discussed with patient. Questions answered. Past Medical History Past Medical History: Diabetes Mellitus Additional Past Medical History / Comment(s): pressure ulcers[Buttock,simone heals ,rt lateral foot] History of Any Multi-Drug Resistant Organisms: None Reported Past Surgical History: Orthopedic Surgery Additional Past Surgical History / Comment(s): back pain son states pt recently "slipped a disc" taking gabapentin. Left leg above the knee amputation, Past Psychological History: No Psychological Hx Reported Smoking Status: Current every day smoker Past Alcohol Use History: Rare Past Drug Use History: None Reported Medications and Allergies Home Medications Medication Instructions Recorded Confirmed Type sitaGLIPtin [Januvia] 100 mg PO HS 03/02/22 05/23/23 History Amiodarone [Cordarone] 200 mg PO DAILY tab 03/25/22 05/23/23 Rx Folic Acid 1 mg PO DAILY tab 03/25/22 05/23/23 Rx Furosemide [Lasix] 40 mg PO DAILY tab 03/25/22 05/23/23 Rx INSULIN ASPART (NovoLOG) [NovoLOG See Protocol SQ AC-TID 09/11/22 05/23/23 History (formulary)] Melatonin 5 mg PO HS 09/11/22 05/23/23 History Gabapentin [Neurontin] 300 mg PO TID #6 cap 12/17/22 05/23/23 Rx Ascorbic Acid [Vitamin C] 1,000 mg PO DAILY 05/23/23 05/23/23 History Ergocalciferol (Vitamin D2) 1,250 mcg PO MO 05/23/23 05/23/23 History [Drisdol (50,000 Iu)] HYDROcodone/APAP 10-325MG [[place] 1 tab PO QID PRN 05/23/23 05/23/23 History 10-325] Insulin Detemir [Levemir Flexpen] 10 units SQ HS 05/23/23 05/23/23 History Metoprolol Tartrate [Lopressor] 12.5 mg PO BID 05/23/23 05/23/23 History methocarbamoL [Robaxin] 500 mg PO QID PRN 05/23/23 05/23/23 History Allergies Allergy/AdvReac Type Severity Reaction Status Date / Time No Known Allergies Allergy Verified 05/23/23 17:39 Physical Exam Vitals: Vital Signs Temp Pulse Resp BP Pulse Ox 05/24/23 06:50 97.6 F 89 17 122/66 99 05/24/23 04:30 80 17 115/69 100 05/24/23 00:30 98 17 116/52 99 05/23/23 22:30 89 18 128/76 100 05/23/23 20:31 100 17 106/62 100 05/23/23 17:00 85 20 130/85 98 05/23/23 16:30 102 H 20 134/75 98 05/23/23 15:25 98.6 F 101 H 16 143/71 100 Intake and Output 05/23/23 05/24/23 05/24/23 22:59 06:59 14:59 Other: Weight 63.503 kg Results CBC & Chem 7: 05/24/23 08:16 05/24/23 08:16 Labs: Abnormal Lab Results - Last 24 Hours (Table) 05/23/23 05/23/23 05/23/23 Range/Units 15:41 15:41 15:54 WBC 12.3 H (3.8-10.6) k/uL RBC 4.25 L (4.30-5.90) m/uL Hgb 11.0 L (13.0-17.5) gm/dL Hct 34.1 L (39.0-53.0) % Neutrophils # 9.8 H (1.3-7.7) k/uL Sodium 129 L (137-145) mmol/L Chloride 92 L (98-107) mmol/L Creatinine 0.44 L (0.66-1.25) mg/dL Glucose 373 H (74-99) mg/dL POC Glucose (mg/dL) 463 H (70-110) mg/dL Albumin 2.8 L (3.5-5.0) g/dL Urine Protein (Negative) Urine Glucose (UA) (Negative) Urine Blood (Negative) Ur Leukocyte Esterase (Negative) Urine RBC (0-5) /hpf Urine WBC (0-5) /hpf Urine Yeast (Budding) (None) /hpf 05/23/23 05/23/23 05/23/23 Range/Units 15:56 17:50 21:26 WBC (3.8-10.6) k/uL RBC (4.30-5.90) m/uL Hgb (13.0-17.5) gm/dL Hct (39.0-53.0) % Neutrophils # (1.3-7.7) k/uL Sodium (137-145) mmol/L Chloride (98-107) mmol/L Creatinine (0.66-1.25) mg/dL Glucose (74-99) mg/dL POC Glucose (mg/dL) 292 H 416 H (70-110) mg/dL Albumin (3.5-5.0) g/dL Urine Protein Trace H (Negative) Urine Glucose (UA) 4+ H (Negative) Urine Blood Moderate H (Negative) Ur Leukocyte Esterase Large H (Negative) Urine RBC 15 H (0-5) /hpf Urine WBC 136 H (0-5) /hpf Urine Yeast (Budding) Occasional H (None) /hpf 05/24/23 05/24/23 Range/Units 00:55 07:24 WBC (3.8-10.6) k/uL RBC (4.30-5.90) m/uL Hgb (13.0-17.5) gm/dL Hct (39.0-53.0) % Neutrophils # (1.3-7.7) k/uL Sodium (137-145) mmol/L Chloride (98-107) mmol/L Creatinine (0.66-1.25) mg/dL Glucose (74-99) mg/dL POC Glucose (mg/dL) 398 H 263 H (70-110) mg/dL Albumin (3.5-5.0) g/dL Urine Protein (Negative) Urine Glucose (UA) (Negative) Urine Blood (Negative) Ur Leukocyte Esterase (Negative) Urine RBC (0-5) /hpf Urine WBC (0-5) /hpf Urine Yeast (Budding) (None) /hpf Microbiology - Last 24 Hours (Table) 05/23/23 15:42 Gram Stain - Preliminary Foot - Right 05/23/23 15:42 Gram Stain - Preliminary Buttock
[2023-05-24 20:41] LABS: Glucose,Whole Blood 351 mg/dL (70-110)
[2023-05-24] MEDS: HYDROcodone/APAP 10-325MG 1 EACH TAB PO PRN (22:02)
[2023-05-24] MEDS: MELATONIN 5 MG TABLET PO SCH (22:03)
[2023-05-24] MEDS: INSULIN DETEMIR (LEVEMIR) 100 UNIT/ML SYR SQ SCH (22:06)
[2023-05-25] MEDS: AMPICILLIN-SULBACTAM 3 GM in SODIUM CHLORIDE 0.9% 100 ML IVPB SCH ×5 (00:05→23:57)
[2023-05-25] MEDS: TEMAZEPAM 15 MG CAP PO PRN (00:14)
[2023-05-25] MEDS ORDERED: VANCOMYCIN TROUGH DUE 1 EACH MISC MISCELLANE ONE (03:00)
[2023-05-25 03:23] LABS: African American GFR (CKD) >90 (>60 ml/min/1.73 sqM); Non-African American GFR(CKD) >90 (>60 ml/min/1.73 sqM)
[2023-05-25] MEDS: VANCOMYCIN 1,250 MG in SODIUM CHLORIDE 0.9% 250 ML IVPB SCH ×3 (04:37→20:28)
[2023-05-25] MEDS: SODIUM CHLORIDE 0.9% 1,000 ML IV SCH ×2 (04:37→23:57)
[2023-05-25] MEDS: HYDROcodone/APAP 10-325MG 1 EACH TAB PO PRN ×2 (06:09→15:59)
[2023-05-25 07:51] LABS: Glucose,Whole Blood 187 mg/dL (70-110)
[2023-05-25] MEDS: METOPROLOL TARTRATE 12.5 MG TAB PO SCH ×2 (08:19→20:29)
[2023-05-25] MEDS: FOLIC ACID 1 MG TAB PO SCH (08:19)
[2023-05-25] MEDS: ENOXAPARIN 40 MG/0.4 ML SYRINGE SQ SCH (08:19)
[2023-05-25] MEDS: INSULIN ASPART (NovoLOG) 100 UNIT/ML VIAL SQ SCH ×4 (08:19→20:39)
[2023-05-25] MEDS: AMIODARONE 200 MG TAB PO SCH (08:19)
[2023-05-25] MEDS: ASCORBIC ACID 500 MG TAB PO SCH (08:19)
[2023-05-25] MEDS: GABAPENTIN 300 MG CAP PO SCH ×3 (08:19→20:29)
[2023-05-25 10:15] LABS: Basophils % (A) 1 %; Eosinophils # (A) 0.2 k/uL (0-0.7); Eosinophils % (A) 3 %; HGB 9.8 gm/dL (13.0-17.5); Hypochromasia Slight; Lymphocytes # (A) 1.6 k/uL (1.0-4.8); Lymphocytes % (A) 19 %; MCH 25.8 pg (25.0-35.0); MCHC 32.7 g/dL (31.0-37.0); MCV 78.9 fL (80.0-100.0); Monocytes # (A) 0.3 k/uL (0-1.0); Monocytes % (A) 4 %; Neutrophils # (A) 6.3 k/uL (1.3-7.7); Neutrophils % (A) 73 %; RDW 14.8 % (11.5-15.5); WBC 8.6 k/uL (3.8-10.6)
[2023-05-25 10:30] LABS: African American GFR (CKD) >90 (>60 ml/min/1.73 sqM); Anion Gap 8 mmol/L; Blood Urea Nitrogen 7 mg/dL (9-20); Calcium 7.9 mg/dL (8.4-10.2); Carbon Dioxide 28 mmol/L (22-30); Chloride 100 mmol/L (98-107); Glucose 123 mg/dL (74-99); Non-African American GFR(CKD) >90 (>60 ml/min/1.73 sqM); Potassium 3.3 mmol/L (3.5-5.1); Sodium 136 mmol/L (137-145)
[2023-05-25 10:32] LABS: Platelet Count 250 k/uL (150-450)
[2023-05-25 10:34] LABS: Rouleaux Present
--- NOTE | 2023-05-25 11:12 | P.GSCN ---
History of Present Illness Consult date: 05/25/23 Reason for Consult: Sacral decubitus ulcer History of present illness: We were consulted regarding a sacral decubitus ulcer. Patient with history of previous left-sided amputation. Patient is mostly sedentary. History of diabetes and chronic wounds. He has a sacral decubitus ulcer that has some necrotic skin and slough. We were consulted for that reason. Review of Systems The patient denies any acute changes in vision or hearing, no dysphagia or odynophagia, no chest pain or shortness of breath, no dysuria or hematuria, no headache, no runny nose, no rectal bleeding or melena, no unexplained weight loss Past Medical History Past Medical History: Diabetes Mellitus, Hypertension Additional Past Medical History / Comment(s): pressure ulcers[Buttock,simone heals ,rt lateral foot] History of Any Multi-Drug Resistant Organisms: None Reported Past Surgical History: Orthopedic Surgery Additional Past Surgical History / Comment(s): back pain son states pt recently "slipped a disc" taking gabapentin. Left leg above the knee amputation, Past Anesthesia/Blood Transfusion Reactions: No Reported Reaction Past Psychological History: No Psychological Hx Reported Smoking Status: Current every day smoker Past Alcohol Use History: Rare Past Drug Use History: None Reported Medications and Allergies Home Medications Medication Instructions Recorded Confirmed Type sitaGLIPtin [Januvia] 100 mg PO HS 03/02/22 05/23/23 History Amiodarone [Cordarone] 200 mg PO DAILY tab 03/25/22 05/23/23 Rx Folic Acid 1 mg PO DAILY tab 03/25/22 05/23/23 Rx Furosemide [Lasix] 40 mg PO DAILY tab 03/25/22 05/23/23 Rx INSULIN ASPART (NovoLOG) [NovoLOG See Protocol SQ AC-TID 09/11/22 05/23/23 History (formulary)] Melatonin 5 mg PO HS 09/11/22 05/23/23 History Gabapentin [Neurontin] 300 mg PO TID #6 cap 12/17/22 05/23/23 Rx Ascorbic Acid [Vitamin C] 1,000 mg PO DAILY 05/23/23 05/23/23 History Ergocalciferol (Vitamin D2) 1,250 mcg PO MO 05/23/23 05/23/23 History [Drisdol (50,000 Iu)] HYDROcodone/APAP 10-325MG [[place] 1 tab PO QID PRN 05/23/23 05/23/23 History 10-325] Insulin Detemir [Levemir Flexpen] 10 units SQ HS 05/23/23 05/23/23 History Metoprolol Tartrate [Lopressor] 12.5 mg PO BID 05/23/23 05/23/23 History methocarbamoL [Robaxin] 500 mg PO QID PRN 05/23/23 05/23/23 History Allergies Allergy/AdvReac Type Severity Reaction Status Date / Time No Known Allergies Allergy Verified 05/23/23 17:39 Surgical - Exam Vital Signs Temp Pulse Resp BP Pulse Ox 98.6 F 101 H 16 143/71 100 05/23/23 15:25 05/23/23 15:25 05/23/23 15:25 05/23/23 15:25 05/23/23 15:25 Physical exam: General: Well-developed, well-nourished HEENT: Normocephalic, sclerae nonicteric Abdomen: Nontender, nondistended Extremities: Left above-knee amputation, right heel dressing in place, large sacral decubitus ulcer with ischemic skin and subcutaneous fat laterally to the left, some undermining, mild tenderness, mild erythema Neuro: Alert and oriented - ENT mucosal exudate Results - Labs 05/25/23 09:38 05/25/23 09:38 Abnormal Lab Results - Last 24 Hours (Table) 05/24/23 05/24/23 05/24/23 Range/Units 13:18 17:23 20:36 RBC (4.30-5.90) m/uL Hgb (13.0-17.5) gm/dL Hct (39.0-53.0) % MCV (80.0-100.0) fL Sodium (137-145) mmol/L Potassium (3.5-5.1) mmol/L BUN (9-20) mg/dL Creatinine (0.66-1.25) mg/dL Glucose (74-99) mg/dL POC Glucose (mg/dL) 335 H 354 H 351 H (70-110) mg/dL Calcium (8.4-10.2) mg/dL 05/25/23 05/25/23 05/25/23 Range/Units 02:59 07:25 09:38 RBC 3.80 L (4.30-5.90) m/uL Hgb 9.8 L (13.0-17.5) gm/dL Hct 30.0 L (39.0-53.0) % MCV 78.9 L (80.0-100.0) fL Sodium (137-145) mmol/L Potassium (3.5-5.1) mmol/L BUN (9-20) mg/dL Creatinine 0.42 L (0.66-1.25) mg/dL Glucose (74-99) mg/dL POC Glucose (mg/dL) 187 H (70-110) mg/dL Calcium (8.4-10.2) mg/dL 05/25/23 Range/Units 09:38 RBC (4.30-5.90) m/uL Hgb (13.0-17.5) gm/dL Hct (39.0-53.0) % MCV (80.0-100.0) fL Sodium 136 L (137-145) mmol/L Potassium 3.3 L (3.5-5.1) mmol/L BUN 7 L (9-20) mg/dL Creatinine 0.33 L (0.66-1.25) mg/dL Glucose 123 H (74-99) mg/dL POC Glucose (mg/dL) (70-110) mg/dL Calcium 7.9 L (8.4-10.2) mg/dL Microbiology - Last 24 Hours (Table) 05/23/23 15:41 Blood Culture Gram Stain - Preliminary Blood Blood Culture - Preliminary Coagulase Negative Staph 05/23/23 15:48 Blood Culture Gram Stain - Preliminary Blood Blood Culture - Preliminary Coagulase Negative Staph 05/23/23 15:42 Gram Stain - Preliminary Foot - Right 05/23/23 15:42 Gram Stain - Preliminary Buttock Diabetes panel 05/25/23 05/25/23 Range/Units 02:59 09:38 Sodium 136 L (137-145) mmol/L Potassium 3.3 L (3.5-5.1) mmol/L Chloride 100 (98-107) mmol/L Carbon Dioxide 28 (22-30) mmol/L BUN 7 L (9-20) mg/dL Creatinine 0.42 L 0.33 L (0.66-1.25) mg/dL Glucose 123 H (74-99) mg/dL Calcium 7.9 L (8.4-10.2) mg/dL Calcium panel 05/25/23 Range/Units 09:38 Calcium 7.9 L (8.4-10.2) mg/dL Pituitary panel 05/25/23 05/25/23 Range/Units 02:59 09:38 Sodium 136 L (137-145) mmol/L Potassium 3.3 L (3.5-5.1) mmol/L Chloride 100 (98-107) mmol/L Carbon Dioxide 28 (22-30) mmol/L BUN 7 L (9-20) mg/dL Creatinine 0.42 L 0.33 L (0.66-1.25) mg/dL Glucose 123 H (74-99) mg/dL Calcium 7.9 L (8.4-10.2) mg/dL Adrenal panel 05/25/23 05/25/23 Range/Units 02:59 09:38 Sodium 136 L (137-145) mmol/L Potassium 3.3 L (3.5-5.1) mmol/L Chloride 100 (98-107) mmol/L Carbon Dioxide 28 (22-30) mmol/L BUN 7 L (9-20) mg/dL Creatinine 0.42 L 0.33 L (0.66-1.25) mg/dL Glucose 123 H (74-99) mg/dL Calcium 7.9 L (8.4-10.2) mg/dL Assessment and Plan (1) Unstageable pressure ulcer of sacral region Narrative/Plan: 63-year-old male with large stage IV sacral decubitus ulcer with necrotic skin and subcutaneous fat. We'll proceed with debridement. We'll try to arrange to have this performed at the time of the surgery tomorrow. Current Visit: No Status: Acute Code(s): L89.150 - PRESSURE ULCER OF SACRAL REGION, UNSTAGEABLE SNOMED Code(s): [id number]
--- NOTE | 2023-05-25 11:39 | P.PN ---
Subjective Progress Note Date: 05/25/23 Principal diagnosis: Infected right lower extremity diabetic wound Patient seen and examined today as a follow-up for right lower extremity infected diabetic wound. No acute changes. Patient does have positive blood cultures with coagulase negative staph. He is afebrile. Plan is for right rdsbl-ezz-mxfr amputation tomorrow. He had x-ray of the right lower extremity that shows right tibia hardware. Arterial ultrasound with reported right ASA 0.8, bright TBI 0.4. Moderate right peripheral arterial disease by ASA indices. Objective - Vital Signs Vital signs: Vital Signs Temp 97.4 F L 05/25/23 08:00 Pulse 73 05/25/23 08:00 Resp 17 05/25/23 08:00 BP 93/55 05/25/23 08:18 Pulse Ox 100 05/25/23 08:00 FiO2 Intake & Output 05/24/23 05/25/23 05/25/23 18:59 06:59 18:59 Output Total 450 Balance -450 Weight 63.503 kg Output: Urine 450 Other: Voiding Method Incontinent External Catheter - Exam General appearance: The patient is alert, oriented, appears in no acute distress. HET: Head is normocephalic and atraumatic. Neck: Supple. Heart: Regular. Lungs: Equal expansion, normal respiratory effort. Abdomen: Soft, nondistended. Extremities: Previous Left ytnxw-voe-gmsr amputation. Right foot with dressing clean dry and intact, malodorous. Neurological: No focal deficits. - Labs CBC & Chem 7: 05/25/23 09:38 05/25/23 09:38 Labs: Abnormal Lab Results - Last 24 Hours (Table) 05/24/23 05/24/23 05/24/23 Range/Units 08:16 08:16 08:16 WBC 10.40 H (4.50-10.00) X 10*3/uL RBC 3.52 L (4.40-5.60) X 10*6/uL Hgb 8.7 L (13.0-17.0) g/dL Hct 27.9 L (39.6-50.0) % MCV 79.3 L (80.0-97.0) FL MCH 24.7 L (27.0-32.0) pg MCHC 31.2 L (32.0-37.0) g/dL RDW 14.9 H (11.5-14.5) % MPV 9.0 L (9.5-12.2) FL Immature Gran # 0.05 H (0.00-0.04) X 10*3/uL Potassium 3.4 L (3.5-5.5) mmol/L BUN 5.6 L (9.0-27.0) mg/dL Creatinine 0.4 L (0.6-1.5) mg/dL Glucose 241 H (70-110) mg/dL POC Glucose (mg/dL) (70-110) mg/dL Hemoglobin A1c 11.5 H (<=6.0) % Calcium 7.7 L (8.7-10.3) mg/dL AST 9 L (14-35) U/L ALT 7 L (10-49) U/L Total Protein 5.4 L (6.2-8.2) g/dL Albumin 2.1 L (3.8-4.9) g/dL Albumin/Globulin Ratio 0.64 L (1.60-3.17) Ratio 05/24/23 05/24/23 05/24/23 Range/Units 13:18 17:23 20:36 WBC (4.50-10.00) X 10*3/uL RBC (4.40-5.60) X 10*6/uL Hgb (13.0-17.0) g/dL Hct (39.6-50.0) % MCV (80.0-97.0) FL MCH (27.0-32.0) pg MCHC (32.0-37.0) g/dL RDW (11.5-14.5) % MPV (9.5-12.2) FL Immature Gran # (0.00-0.04) X 10*3/uL Potassium (3.5-5.5) mmol/L BUN (9.0-27.0) mg/dL Creatinine (0.6-1.5) mg/dL Glucose (70-110) mg/dL POC Glucose (mg/dL) 335 H 354 H 351 H (70-110) mg/dL Hemoglobin A1c (<=6.0) % Calcium (8.7-10.3) mg/dL AST (14-35) U/L ALT (10-49) U/L Total Protein (6.2-8.2) g/dL Albumin (3.8-4.9) g/dL Albumin/Globulin Ratio (1.60-3.17) Ratio 05/25/23 05/25/23 Range/Units 02:59 07:25 WBC (4.50-10.00) X 10*3/uL RBC (4.40-5.60) X 10*6/uL Hgb (13.0-17.0) g/dL Hct (39.6-50.0) % MCV (80.0-97.0) FL MCH (27.0-32.0) pg MCHC (32.0-37.0) g/dL RDW (11.5-14.5) % MPV (9.5-12.2) FL Immature Gran # (0.00-0.04) X 10*3/uL Potassium (3.5-5.5) mmol/L BUN (9.0-27.0) mg/dL Creatinine 0.42 L (0.6-1.5) mg/dL Glucose (70-110) mg/dL POC Glucose (mg/dL) 187 H (70-110) mg/dL Hemoglobin A1c (<=6.0) % Calcium (8.7-10.3) mg/dL AST (14-35) U/L ALT (10-49) U/L Total Protein (6.2-8.2) g/dL Albumin (3.8-4.9) g/dL Albumin/Globulin Ratio (1.60-3.17) Ratio Microbiology - Last 24 Hours (Table) 05/23/23 15:41 Blood Culture Gram Stain - Preliminary Blood 05/23/23 15:48 Blood Culture Gram Stain - Preliminary Blood 05/23/23 15:42 Gram Stain - Preliminary Foot - Right 05/23/23 15:42 Gram Stain - Preliminary Buttock Assessment and Plan Assessment: 1. Infected right diabetic heel and Achilles wound 2. Peripheral arterial disease 3. Diabetes mellitus 4. Current tobacco use 5. Sacral wound 6. Bedridden, nonambulatory 7. History of left lower extremity diabetic wound status post left jhzvr-qjm-pcto amputation Plan: 1. Right lower extremity arterial ultrasound ordered and reviewed 2. Antibiotics per recommendations from infectious disease and primary medical team 3. Nothing by mouth after midnight 4. Plan for right udthv-wdu-kxwl amputation,scheduled for , 05/26/2023 5. Hold Lovenox 05/26/2023 6. Defer sacral wound to infectious disease recommendations and primary medical recommendations, consider possible general surgery evaluation if needed Thank you for this consultation, we will continue to follow. The impression and plan of care has been dictated as directed. Dr. Zee I performed a history and examination of this patient, discussed the same with the dictator. I agree with the dictator's note ,documented as a scribe. Any a dditional findings or plans will be noted.
[2023-05-25 11:59] LABS: Glucose,Whole Blood 181 mg/dL (70-110)
[2023-05-25] MEDS: NICOTINE 21MG/24HR PATCH TRANSDERM SCH (13:00)
[2023-05-25] MEDS: COLLAGENASE 250 UNIT/GM OINTMENT 30 GM TUBE TOPICAL SCH (13:00)
[2023-05-25 13:05] VITALS: BMI 20.7
[2023-05-25 17:00] LABS: Glucose,Whole Blood 316 mg/dL (70-110)
--- NOTE | 2023-05-25 17:52 | P.CONS ---
History of Present Illness - Reason for Consult Consult date: 05/24/23 - History of Present Illness Patient is a 63-year-old male with a past medical history significant for diabetes mellitus current everyday smoker patient did have a previous history of left zkjes-nxz-hreu amputation presenting to the ER for evaluation generalized weakness patient noticed to have a extensive wound to the sacral area as well as to the right heel and Achilles wound with necrotic changes and foul-smelling order patient apparently mention his wound has been getting worse over the last few days to weeks patient denies high-grade fever or any chills and no fever was noticed on presentation to the hospital patient was not hypoxic tachycardic or hypotensive patient denies having any headache chest pain shortness of breath or cough no nausea vomiting abdominal pain or diarrhea has been complaining of pain to the sacral wound to be sharp moderate intensity with a foul-smelling drainage and also having extensive pain and foul-smelling drainage from the right heel and posterior leg wound area. On presentation to the hospital patient was afebrile and no fever has been recorded subsequently patient did have a white count of 12.3 with a left shift creatinine was normal liver enzymes are normal urine is positive patient did have a chest x-ray no acute cardiopulmonary process patient did have x-ray of the sacrum and coccyx area which shows interval bony destruction of the distal coccygeal segment findings compatible with contagious osteomyelitis right foot severe osteopenia and nondisplaced intra-articular fracture finding suggestive of early osteomyelitis patient was started on vancomycin and Unasyn infectious disease was consulted for further management further management of antibiotic therapy patient has been evaluated vascular surgery pending for right ayiqq-tot-apol amputation this admission Past Medical History Past Medical History: Diabetes Mellitus Additional Past Medical History / Comment(s): pressure ulcers[Buttock,simone heals ,rt lateral foot] History of Any Multi-Drug Resistant Organisms: None Reported Past Surgical History: Orthopedic Surgery Additional Past Surgical History / Comment(s): back pain son states pt recently "slipped a disc" taking gabapentin. Left leg above the knee amputation, Past Psychological History: No Psychological Hx Reported Smoking Status: Current every day smoker Past Alcohol Use History: Rare Past Drug Use History: None Reported Medications and Allergies Home Medications Medication Instructions Recorded Confirmed Type sitaGLIPtin [Januvia] 100 mg PO HS 03/02/22 05/23/23 History Amiodarone [Cordarone] 200 mg PO DAILY tab 03/25/22 05/23/23 Rx Folic Acid 1 mg PO DAILY tab 03/25/22 05/23/23 Rx Furosemide [Lasix] 40 mg PO DAILY tab 03/25/22 05/23/23 Rx INSULIN ASPART (NovoLOG) [NovoLOG See Protocol SQ AC-TID 09/11/22 05/23/23 Hist ory (formulary)] Melatonin 5 mg PO HS 09/11/22 05/23/23 History Gabapentin [Neurontin] 300 mg PO TID #6 cap 12/17/22 05/23/23 Rx Ascorbic Acid [Vitamin C] 1,000 mg PO DAILY 05/23/23 05/23/23 History Ergocalciferol (Vitamin D2) 1,250 mcg PO MO 05/23/23 05/23/23 History [Drisdol (50,000 Iu)] HYDROcodone/APAP 10-325MG [[place] 1 tab PO QID PRN 05/23/23 05/23/23 History 10-325] Insulin Detemir [Levemir Flexpen] 10 units SQ HS 05/23/23 05/23/23 History Metoprolol Tartrate [Lopressor] 12.5 mg PO BID 05/23/23 05/23/23 History methocarbamoL [Robaxin] 500 mg PO QID PRN 05/23/23 05/23/23 History Allergies Allergy/AdvReac Type Severity Reaction Status Date / Time No Known Allergies Allergy Verified 05/23/23 17:39 Physical Exam Vitals: Vital Signs Temp Pulse Resp BP Pulse Ox 05/24/23 06:50 97.6 F 89 17 122/66 99 05/24/23 04:30 80 17 115/69 100 05/24/23 00:30 98 17 116/52 99 05/23/23 22:30 89 18 128/76 100 05/23/23 20:31 100 17 106/62 100 05/23/23 17:00 85 20 130/85 98 05/23/23 16:30 102 H 20 134/75 98 05/23/23 15:25 98.6 F 101 H 16 143/71 100 Intake and Output 05/23/23 05/24/23 05/24/23 22:59 06:59 14:59 Other: Weight 63.503 kg Results CBC & Chem 7: 05/25/23 09:38 05/25/23 09:38 Labs: Abnormal Lab Results - Last 24 Hours (Table) 05/23/23 05/23/23 05/23/23 Range/Units 15:41 15:41 15:54 WBC 12.3 H (3.8-10.6) k/uL RBC 4.25 L (4.30-5.90) m/uL Hgb 11.0 L (13.0-17.5) gm/dL Hct 34.1 L (39.0-53.0) % Neutrophils # 9.8 H (1.3-7.7) k/uL Sodium 129 L (137-145) mmol/L Chloride 92 L (98-107) mmol/L Creatinine 0.44 L (0.66-1.25) mg/dL Glucose 373 H (74-99) mg/dL POC Glucose (mg/dL) 463 H (70-110) mg/dL Albumin 2.8 L (3.5-5.0) g/dL Urine Protein (Negative) Urine Glucose (UA) (Negative) Urine Blood (Negative) Ur Leukocyte Esterase (Negative) Urine RBC (0-5) /hpf Urine WBC (0-5) /hpf Urine Yeast (Budding) (None) /hpf 05/23/23 05/23/23 05/23/23 Range/Units 15:56 17:50 21:26 WBC (3.8-10.6) k/uL RBC (4.30-5.90) m/uL Hgb (13.0-17.5) gm/dL Hct (39.0-53.0) % Neutrophils # (1.3-7.7) k/uL Sodium (137-145) mmol/L Chloride (98-107) mmol/L Creatinine (0.66-1.25) mg/dL Glucose (74-99) mg/dL POC Glucose (mg/dL) 292 H 416 H (70-110) mg/dL Albumin (3.5-5.0) g/dL Urine Protein Trace H (Negative) Urine Glucose (UA) 4+ H (Negative) Urine Blood Moderate H (Negative) Ur Leukocyte Esterase Large H (Negative) Urine RBC 15 H (0-5) /hpf Urine WBC 136 H (0-5) /hpf Urine Yeast (Budding) Occasional H (None) /hpf 05/24/23 05/24/23 Range/Units 00:55 07:24 WBC (3.8-10.6) k/uL RBC (4.30-5.90) m/uL Hgb (13.0-17.5) gm/dL Hct (39.0-53.0) % Neutrophils # (1.3-7.7) k/uL Sodium (137-145) mmol/L Chloride (98-107) mmol/L Creatinine (0.66-1.25) mg/dL Glucose (74-99) mg/dL POC Glucose (mg/dL) 398 H 263 H (70-110) mg/dL Albumin (3.5-5.0) g/dL Urine Protein (Negative) Urine Glucose (UA) (Negative) Urine Blood (Negative) Ur Leukocyte Esterase (Negative) Urine RBC (0-5) /hpf Urine WBC (0-5) /hpf Urine Yeast (Budding) (None) /hpf Microbiology - Last 24 Hours (Table) 05/23/23 15:42 Gram Stain - Preliminary Foot - Right 05/23/23 15:42 Gram Stain - Preliminary Buttock Assessment and Plan Plan: 1patient presented to hospital with extensive right heel diabetic foot infection concern for underlying osteomyelitis and has significant foul-smelling drainage we will need to cover for the polymicrobial ceferino usually associated diabetic foot infection 2patient also evidence of stage IV sacral pressure ulcer concerning for underlying osteomyelitis on the basis of plain x-rays, await surgical evaluation debridement and deep culture 3patient to continue with Unasyn and vancomycin watching his kidney function closely while waiting for the culture to finalize 4check inflammatory markers We will follow on clinical condition and cultures to further adjust medication if needed Thank you for this consultation we will follow the patient along with you Dictation was produced using [employer] dictation software. please excuse any grammatical, word or spelling errors. Time with Patient: Greater than 30
--- NOTE | 2023-05-25 17:54 | P.PN ---
Subjective Progress Note Date: 05/25/23 Principal diagnosis: Reason for follow-up is infected sacral pressure ulcer right diabetic foot infection osteomyelitis and bacteremia Patient is a 63-year-old male with a past medical history significant for diabetes mellitus current everyday smoker patient did have a previous history of left ybqsj-fsd-jgqi amputation presenting to the ER for evaluation generalized weakness patient noticed to have a extensive wound to the sacral area as well as to the right heel and Achilles wound with necrotic changes and foul-smelling order, patient was admitted to hospital for further management. On today's evaluation that is 05/25/2023 patient denies having any fever or any chills, patient is currently breathing comfortably on room air denies any chest pain shortness without cough has been complaining of pain mostly to the sacral wound area no nausea vomiting or diarrhea has been reported. The patient white count of 8.6, creatinine 0.33 blood culture with coagulase-ne gative staph Objective - Vital Signs Vital signs: Vital Signs Temp 98.9 F 05/25/23 14:00 Pulse 105 H 05/25/23 14:00 Resp 19 05/25/23 14:00 BP 110/88 05/25/23 14:00 Pulse Ox 92 L 05/25/23 14:00 FiO2 Intake & Output 05/24/23 05/25/23 05/25/23 18:59 06:59 18:59 Output Total 450 Balance -450 Weight 63.503 kg 63.503 kg Output: Urine 450 Other: Voiding Method Incontinent Incontinent External Catheter External Catheter - Exam GENERAL DESCRIPTION: Middle-age male lying in bed in no distress RESPIRATORY SYSTEM: Unlabored breathing , decreased breath sounds at bases HEART: S1 S2 regular rate and rhythm , ABDOMEN: Soft , no tenderness EXTREMITIES: Right heel wounds are currently dressed with some foul-smelling drainage, patient did have a stage IV sacral pressure ulcer with slough tissue and foul-smelling drainage - Labs CBC & Chem 7: 05/25/23 09:38 05/25/23 09:38 Labs: Abnormal Lab Results - Last 24 Hours (Table) 05/24/23 05/24/23 05/25/23 Range/Units 17:23 20:36 02:59 RBC (4.30-5.90) m/uL Hgb (13.0-17.5) gm/dL Hct (39.0-53.0) % MCV (80.0-100.0) fL Sodium (137-145) mmol/L Potassium (3.5-5.1) mmol/L BUN (9-20) mg/dL Creatinine 0.42 L (0.66-1.25) mg/dL Glucose (74-99) mg/dL POC Glucose (mg/dL) 354 H 351 H (70-110) mg/dL Calcium (8.4-10.2) mg/dL 05/25/23 05/25/23 05/25/23 Range/Units 07:25 09:38 09:38 RBC 3.80 L (4.30-5.90) m/uL Hgb 9.8 L (13.0-17.5) gm/dL Hct 30.0 L (39.0-53.0) % MCV 78.9 L (80.0-100.0) fL Sodium 136 L (137-145) mmol/L Potassium 3.3 L (3.5-5.1) mmol/L BUN 7 L (9-20) mg/dL Creatinine 0.33 L (0.66-1.25) mg/dL Glucose 123 H (74-99) mg/dL POC Glucose (mg/dL) 187 H (70-110) mg/dL Calcium 7.9 L (8.4-10.2) mg/dL 05/25/23 05/25/23 Range/Units 11:57 16:58 RBC (4.30-5.90) m/uL Hgb (13.0-17.5) gm/dL Hct (39.0-53.0) % MCV (80.0-100.0) fL Sodium (137-145) mmol/L Potassium (3.5-5.1) mmol/L BUN (9-20) mg/dL Creatinine (0.66-1.25) mg/dL Glucose (74-99) mg/dL POC Glucose (mg/dL) 181 H 316 H (70-110) mg/dL Calcium (8.4-10.2) mg/dL Microbiology - Last 24 Hours (Table) 05/23/23 15:41 Blood Culture Gram Stain - Preliminary Blood Blood Culture - Preliminary Coagulase Negative Staph 05/23/23 15:48 Blood Culture Gram Stain - Preliminary Blood Blood Culture - Preliminary Coagulase Negative Staph Assessment and Plan (1) Ulcer of sacral region, stage 4 Current Visit: Yes Status: Acute Code(s): L98.429 - NON-PRESSURE CHRONIC ULCER OF BACK WITH UNSPECIFIED SEVERITY SNOMED Code(s): 63158064 (2) Sacral osteomyelitis Current Visit: Yes Status: Acute Code(s): M46.28 - OSTEOMYELITIS OF VERTEBRA, SACRAL AND SACROCOCCYGEAL REGION SNOMED Code(s): 838482128 (3) Bacteremia Current Visit: Yes Status: Acute Code(s): R78.81 - BACTEREMIA SNOMED Code(s): 9591557 (4) Diabetic foot infection Current Visit: Yes Status: Acute Code(s): E11.628 - TYPE 2 DIABETES MELLITUS WITH OTHER SKIN COMPLICATIONS; L08.9 - LOCAL INFECTION OF THE SKIN AND SUBCUTANEOUS TISSUE, UNSP SNOMED Code(s): 525866110 (5) Diabetic ulcer of right foot associated with diabetes mellitus due to underlying condition, with necrosis of bone Current Visit: Yes Status: Acute Code(s): E08.621 - DIABETES MELLITUS DUE TO UNDERLYING CONDITION W FOOT ULCER; L97.514 - NON-PRS CHRONIC ULCER OTH PRT RIGHT FOOT W NECROSIS OF BONE SNOMED Code(s): 798034617 Plan: 1patient presented to hospital with extensive right heel diabetic foot infection concern for underlying osteomyelitis and has significant foul-smelling drainage we will need to cover for the polymicrobial ceferino usually associated diabetic foot infection 2patient also evidence of stage IV sacral pressure ulcer concerning for underlying osteomyelitis on the basis of plain x-rays, Patient has been evaluated by vascular surgery planning for surgical debridement and deep culture. 3positive blood culture with coagulase-negative staph possible skin contam ination versus real pathogen we will repeat blood culture 4patient to continue the vancomycin pharmacy to dose and Unasyn while waiting for the workup to be completed Prognosis remains to be guarded Dictation was produced using [employer] dictation software. please excuse any grammatical, word or spelling errors. Time with Patient: Greater than 30
[2023-05-25] MEDS ORDERED: POTASSIUM CHLORIDE ER 20 MEQ TAB.ER PO STA (20:23)
--- NOTE | 2023-05-25 20:25 | P.PN ---
Progress Note - Text Progress Note Date: 05/25/23 Chief Complaint: Worsening wounds This is a 62-year-old patient, follows with Dr. Mendez. Chronic stable medical conditions include ADHD, herniated disc lower back, smoker. Sacral wounds. Left AKA Patient has lost his insurance for about 4-6 weeks. Was unable to follow for wound care. Had been following with [facility]. He has a sacral decubitus. Also wart on the right foot healed. Patient does continue to vaping and occasional cigarettes. Has increasing pain in the lower back in the sacral area and the right heel. Appetite is fair. No fever no chills. 05/25/2023: Laying in bed. Pain as before. Scheduled for surgery tomorrow. IV Unasyn and IV vancomycin. Active Medications Acetaminophen (Acetaminophen Tab 325 Mg Tab) 650 mg PO Q6HR PRN PRN Reason: Mild Pain or Fever > 100.5 Hydrocodone Bitart/Acetaminophen (Hydrocodone/Apap 10-325mg 1 Each Tab) 1 each PO QID PRN PRN Reason: Pain Last Admin: 05/25/23 15:59 Dose: 1 each Alprazolam (Alprazolam 0.25 Mg Tab) 0.25 mg PO Q6HR PRN PRN Reason: Anxiety Amiodarone HCl (Amiodarone 200 Mg Tab) 200 mg PO DAILY [facility] Last Admin: 05/25/23 08:19 Dose: 200 mg Ascorbic Acid (Ascorbic Acid 500 Mg Tab) 1,000 mg PO DAILY [facility] Last Admin: 05/25/23 08:19 Dose: 1,000 mg Calcium Carbonate/Glycine (Calcium Carbonate 500 Mg Chewable) 1,000 mg PO Q4HR PRN PRN Reason: Dyspepsia Collagenase (Collagenase 250 Unit/Gm Ointment 30 Gm Tube) 1 applic TOPICAL DAILY [facility]; Protocol Last Admin: 05/25/23 13:00 Dose: 1 applic Dextrose/Water (Dextrose 50% Syringe 50 Ml) 25 ml IVP PER PROTOCOL PRN; Protocol PRN Reason: Hypoglycemia Dextrose/Water (Dextrose 50% Syringe 50 Ml) 50 ml IVP PER PROTOCOL PRN; Protocol PRN Reason: Hypoglycemia Dextrose/Water (Dextrose 50% Syringe 50 Ml) 25 ml IVP PER PROTOCOL PRN; Protocol PRN Reason: Hypoglycemia Dextrose/Water (Dextrose 50% Syringe 50 Ml) 50 ml IVP PER PROTOCOL PRN; Protocol PRN Reason: Hypoglycemia Enoxaparin Sodium (Enoxaparin 40 Mg/0.4 Ml Syringe) 40 mg SQ DAILY [facility] Last Admin: 05/25/23 08:19 Dose: 40 mg Ergocalciferol (Ergocalciferol 1,250 Mcg (50,000 Iu) Capsule) 1,250 mcg PO MO [facility] Folic Acid (Folic Acid 1 Mg Tab) 1 mg PO DAILY [facility] Last Admin: 05/25/23 08:19 Dose: 1 mg Gabapentin (Gabapentin 300 Mg Cap) 300 mg PO TID [facility] Last Admin: 05/25/23 15:59 Dose: 300 mg Ampicillin Sodium/Sulbactam (Sodium 3 gm/ Sodium Chloride) 100 mls @ 200 mls/hr IVPB Q6HR [facility]; Protocol Last Admin: 05/25/23 17:51 Dose: 200 mls/hr Sodium Chloride (Saline 0.9%) 1,000 mls @ 75 mls/hr IV .[id number] [facility] Last Admin: 05/25/23 04:37 Dose: 75 mls/hr Vancomycin HCl 1,250 mg/ (Sodium Chloride) 250 mls @ 125 mls/hr IVPB Q8H [facility] Last Admin: 05/25/23 12:19 Dose: 125 mls/hr Insulin Aspart (Insulin Aspart (Novolog) 100 Unit/Ml Vial) 0 unit SQ ACHS [facility]; Protocol Last Admin: 05/25/23 17:51 Dose: 4 unit Insulin Detemir (Insulin Detemir (Levemir) 100 Unit/Ml Syr) 10 unit SQ HS [facility] Last Admin: 05/24/23 22:06 Dose: 10 unit Lactulose (Lactulose 20 Gm/30 Ml Cup) 20 gm PO DAILY PRN PRN Reason: Constipation Melatonin (Melatonin 5 Mg Tablet) 5 mg PO HS [facility] Last Admin: 05/24/23 22:03 Dose: 5 mg Methocarbamol (Methocarbamol 500 Mg Tab) 500 mg PO QID PRN PRN Reason: Pain Metoprolol Tartrate (Metoprolol Tartrate 12.5 Mg Tab) 12.5 mg PO BID [facility] Last Admin: 05/25/23 08:19 Dose: 12.5 mg Miscellaneous Information (Vancomycin Trough Due 1 Each Misc) 1 each MISCELLANE ONCE ONE Stop: 05/26/23 11:01 Naloxone HCl (Naloxone 0.4 Mg/Ml 1 Ml Vial) 0.2 mg IV Q2M PRN PRN Reason: Opioid Reversal Nicotine (Nicotine 21mg/24hr Patch) 1 patch TRANSDERM DAILY [facility] Last Admin: 05/25/23 13:00 Dose: 1 patch Ondansetron HCl (Ondansetron 4 Mg/2 Ml Vial) 4 mg IVP Q8HR PRN PRN Reason: Nausea And Vomiting Temazepam (Temazepam 15 Mg Cap) 15 mg PO HS PRN PRN Reason: Insomnia Last Admin: 05/25/23 00:14 Dose: 15 mg Past medical history to include: Diabetes, possible ADHD, chronic low back pain, herniated disc, atrial fibrillation. COPD. left above-knee amputation Social history: Son lives with the patient. 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 Smokes about a pack a day, now down to a few cigarettes a day. Alcohol occasionally. Physical examination: VITAL SIGNS: He 7.4, 73, 17, 110/88, 92% room air GENERAL: Laying in bed EYES: Pupils equal. Conjunctiva normal. HEENT: External appearance of nose and ears normal, oral cavity grossly normal. NECK: JVD not raised; masses not palpable. HEART: First and second heart sounds are normal; no edema. LUNGS: Respiratory rate normal; decreased breath sounds. ABDOMEN: Soft, nontender, liver spleen not palpable, no masses palpable. PSYCH: [Alert and oriented x3; mood and affect tired l. MUSCULOSKELETAL: Left AKA. Right heel wound. Sacral wound. INVESTIGATIONS, reviewed in the clinical context: 05/25/2023: White count 8.6 and Lopid 9.8 platelets 250 potassium 3.3 creatinine 0.33 05/24/2023: White count 10.4 hemoglobin 8.7 weight 07/02/2005 sodium 135 potassium 3.4 BUN 5.6 creatinine 0.4 HbA1c 11.5 Ultrasound arterial lower extremity moderate right PAD with ankle brachial indices Sacral and coccygeal x-ray: Deep decubitus ulcer with interval osseous destruction of the distal coccygeal segments. Right foot x-ray severe osteopenia. Chest x-ray film personally reviewed by me-hyperinflation EKG tracing personally reviewed by me-normal sinus rhythm Assessment and plan: -Extensive decubitus ulcers including the right heel, ll, sacrum/coccyx. Associated with possible acute on osteomyelitis. Surrounding cellulitis. Vascular surgery and ID consulted Gen. surgery and wound care team - sacral wound. IV Unasyn and IV vancomycin Tentative plan for right agibk-jhm-dzds amputation for May 26 -Left AKA -Paroxysmal atrial fibrillation: sinus rhythm Amiodarone. Lopressor. -Diabetes mellitus type 2, chronically on insulin Follow Accu-Cheks. -COPD in a current smoker Bronchodilators as needed -Chronic nicotine dependence, cigarette smoker Nicotine patch -Chronic medical debility. Non-ambulatory -Full code Pending Debridement and amputation surgery Past Medical History Past Medical History: Diabetes Mellitus Additional Past Medical History / Comment(s): pressure ulcers[Buttock,simone heals ,rt lateral foot] History of Any Multi-Drug Resistant Organisms: None Reported Past Surgical History: Orthopedic Surgery Additional Past Surgical History / Comment(s): back pain son states pt recently "slipped a disc" taking gabapentin. Left leg above the knee amputation, Past Psychological History: No Psychological Hx Reported Smoking Status: Current every day smoker Past Alcohol Use History: Rare Past Drug Use History: None Reported
[2023-05-25] MEDS: MELATONIN 5 MG TABLET PO SCH (20:29)
[2023-05-25] MEDS: INSULIN DETEMIR (LEVEMIR) 100 UNIT/ML SYR SQ SCH (20:29)
[2023-05-25 20:33] LABS: Glucose,Whole Blood 330 mg/dL (70-110)
[2023-05-26] MEDS: HYDROcodone/APAP 10-325MG 1 EACH TAB PO PRN ×2 (01:59→17:31)
[2023-05-26] MEDS: TEMAZEPAM 15 MG CAP PO PRN (02:01)
[2023-05-26] MEDS: VANCOMYCIN 1,250 MG in SODIUM CHLORIDE 0.9% 250 ML IVPB SCH ×3 (03:45→20:07)
[2023-05-26] MEDS: AMPICILLIN-SULBACTAM 3 GM in SODIUM CHLORIDE 0.9% 100 ML IVPB SCH ×4 (06:06→23:45)
[2023-05-26 07:04] LABS: Glucose,Whole Blood 201 mg/dL (70-110)
[2023-05-26] MEDS: ENOXAPARIN 40 MG/0.4 ML SYRINGE SQ SCH (07:13)
[2023-05-26] MEDS: ASCORBIC ACID 500 MG TAB PO SCH (07:58)
[2023-05-26] MEDS: FOLIC ACID 1 MG TAB PO SCH (07:58)
[2023-05-26] MEDS: GABAPENTIN 300 MG CAP PO SCH ×3 (07:58→21:20)
[2023-05-26] MEDS: COLLAGENASE 250 UNIT/GM OINTMENT 30 GM TUBE TOPICAL SCH (08:00)
[2023-05-26] MEDS: NICOTINE 21MG/24HR PATCH TRANSDERM SCH (08:05)
[2023-05-26] MEDS: INSULIN ASPART (NovoLOG) 100 UNIT/ML VIAL SQ SCH ×4 (08:05→21:16)
[2023-05-26] MEDS: AMIODARONE 200 MG TAB PO SCH (08:05)
[2023-05-26] MEDS: METOPROLOL TARTRATE 12.5 MG TAB PO SCH ×2 (08:05→21:18)
[2023-05-26 08:23] LABS: Basophils # (A) 0.1 k/uL (0-0.2); Basophils % (A) 1 %; Eosinophils # (A) 0.3 k/uL (0-0.7); Eosinophils % (A) 3 %; HCT 29.5 % (39.0-53.0); HGB 9.2 gm/dL (13.0-17.5); Hypochromasia Marked; Lymphocytes # (A) 1.7 k/uL (1.0-4.8); Lymphocytes % (A) 19 %; MCH 25.8 pg (25.0-35.0); MCV 83.1 fL (80.0-100.0); Mean Platelet Volume 9.8; Monocytes # (A) 0.4 k/uL (0-1.0); Monocytes % (A) 4 %; Neutrophils # (A) 6.5 k/uL (1.3-7.7); Neutrophils % (A) 72 %; Platelet Count 254 k/uL (150-450); RBC 3.55 m/uL (4.30-5.90); RDW 14.8 % (11.5-15.5); WBC 9.1 k/uL (3.8-10.6)
[2023-05-26 08:24] LABS: African American GFR (CKD) >90 (>60 ml/min/1.73 sqM); Anion Gap 4 mmol/L; Blood Urea Nitrogen 6 mg/dL (9-20); Calcium 7.7 mg/dL (8.4-10.2); Carbon Dioxide 26 mmol/L (22-30); Chloride 104 mmol/L (98-107); Glucose 167 mg/dL (74-99); Non-African American GFR(CKD) >90 (>60 ml/min/1.73 sqM); Sodium 134 mmol/L (137-145)
[2023-05-26] MEDS ORDERED: VANCOMYCIN TROUGH DUE 1 EACH MISC MISCELLANE ONE (11:00)
[2023-05-26] MEDS ORDERED: LIDOCAINE 1% (10MG/ML) FOR IV START INTRADERMA PRN (11:08)
[2023-05-26] MEDS ORDERED: ONDANSETRON 4 MG/2 ML VIAL IVP ONE (11:08)
[2023-05-26] MEDS ORDERED: MIDAZOLAM 2 MG/2 ML VIAL IV PRN (11:08)
[2023-05-26] MEDS ORDERED: DEXAMETHASONE SOD PHOSPHATE 4 MG/ML 1 ML VIAL IV ONE (11:08)
[2023-05-26] MEDS ORDERED: LACTATED RINGERS 1,000 ML IV SCH (11:08)
[2023-05-26 11:19] LABS: Glucose,Whole Blood 110 mg/dL (70-110)
[2023-05-26] MEDS ORDERED: IV FLUID CONTINUATION 1,000 ML IV ONE (11:29)
[2023-05-26] MEDS ORDERED: KETAMINE HCL IN 0.9 % NACL 50 MG/5 ML SYRINGE ONE (11:54)
[2023-05-26] MEDS ORDERED: NEOSTIGMINE 1 MG/ML 10 ML VIAL ONE (11:54)
[2023-05-26] MEDS ORDERED: PROPOFOL 10 MG/ML 20 ML VIAL IV ONE (11:54)
[2023-05-26] MEDS ORDERED: fentaNYL (PF) 50 MCG/ML 2 ML AMP ONE (11:54)
[2023-05-26] MEDS ORDERED: PHENYLEPHRINE-0.9% NACL SYG 1,000 MCG/10 ML SYRINGE ONE (11:54)
[2023-05-26] MEDS ORDERED: GLYCOPYRROLATE 0.2 MG/ML 2 ML VIAL ONE (11:54)
[2023-05-26] MEDS ORDERED: ePHEDrine 50 MG/ML 1 ML VIAL ONE (11:54)
[2023-05-26] MEDS ORDERED: LIDOCAINE 1% INJ 10MG/ML (20 ML MDV) ONE (11:54)
[2023-05-26] MEDS ORDERED: MIDAZOLAM 2 MG/2 ML VIAL ONE (11:54)
[2023-05-26] MEDS ORDERED: ROCURONIUM 10 MG/ML (5 ML VIAL) IV ONE (11:54)
[2023-05-26] MEDS ORDERED: WATER FOR INJECTION, STERILE 10 ML VIAL IV ONE (11:54)
[2023-05-26] MEDS ORDERED: ceFAZolin 2,000 MG in SODIUM CHLORIDE 0.9% 1,000 ML IRRIGATION ONE (12:30)
--- NOTE | 2023-05-26 13:26 | P.OP ---
Date of Procedure: 05/26/23 Description of Procedure: Preoperative diagnosis: Right lower extremity nonhealing wound, infection, sepsis, nonambulatory Postoperative diagnosis: Same Procedure: Right Above-knee amputation Surgeon: Barbara Zee D.O. Anesthesia: Gen. endotracheal EBL: 50 mL IV fluids: See records Urine output: See records, specimen sent for culture due to cloudy appearance Drains: None Complications: None immediately apparent Condition: Stable to recovery Operative indication and findings: Patient is a 63-year-old male in today for right above-knee amputation. He has a nonhealing wound that has continued to have issues and concerns and now patient is having issues with sepsis. He is nonambulatory and due to this along with the issue at hand is recommended he undergo an above-knee amputation. He understands the plan and is willing to proceed. Procedure in detail: The patient was taken to the operative suite and placed in supine position. After adequate anesthesia, the right lower extremity was prepped and draped in usual sterile fashion. A preprocedure timeout was performed, all parties were in agreement. Skin marker was utilized and the incision was marked approximately 5 cm proximal to the knee joint. Skin incision was performed and deepened through the subcutaneous tissues to the muscular fascia. The saphenous vein was identified and ligated with 2-0 silk and divided. The muscle groups of the anterior and medial thigh were divided with electrocautery at the same level of the skin incision. The neurovascular bundle was identified on the medial aspect of the thigh. The artery and veins were isolated and suture ligated using 2-0 silk ligature. The sciatic nerve was pulled on stretch and ligated with 2-0 silk tie and divided. The femur was then cleared of its periosteal tissue is elevated roughly 5 cm proximally and was divided with the oscillating saw. The posterior thigh muscles were then divided with electrocautery. The proximal end of the transected femur was smoothed with a rasp. The amputation site was then copiously irrigated. Hemostasis was controlled with electrocautery. The periosteum was reapproximated using interrupted sutures of 2-0 Vicryl. The fascia was reapproximated with interrupted [id number] sutures of 2-0 Vicryl. The skin was reapproximated with rosetta. A dressing with gauze, Kerlix and a bandage were placed. The patient tolerated the procedure well and was transported to PACU in stable condition
[2023-05-26] MEDS ORDERED: SODIUM CHLORIDE 0.9% 1,000 ML IV ONE (13:48)
[2023-05-26 14:11] LABS: Glucose,Whole Blood 145 mg/dL (70-110)
[2023-05-26] MEDS: HYDROmorphone 0.5 MG/0.5 ML SYRINGE IVP PRN ×4 (14:23→21:17)
--- NOTE | 2023-05-26 14:46 | P.OP ---
Date of Procedure: 05/26/23 Procedure(s) Performed: PREOPERATIVE DIAGNOSIS: Sacral decubitus ulcer POSTOPERATIVE DIAGNOSIS: Same PROCEDURE: Excisional debridement sacral decubitus ulcer SURGEON: Joanna EBL: 25 mL ANESTHESIA: Gen. COMPLICATIONS: None OPERATIVE PROCEDURE: Patient placed in the left decubitus position after his amputation was performed by vascular surgery. The sacral decubitus ulcer measured 12 x 8 cm. Excisional debridement took place using both curet and scalpel sharply. Necrotic tissue excised. Depth of debridement took place to the level of the muscle. There was some friable bone centrally consistent with probable chronic osteomyelitis. Small areas of bleeding were controlled using electrocautery. Wound was packed with Kerlix roll. DISPOSITION: Stable to recovery room
[2023-05-26] MEDS: SODIUM CHLORIDE 0.9% 1,000 ML IV SCH ×2 (15:16→23:46)
[2023-05-26 17:01] LABS: Glucose,Whole Blood 175 mg/dL (70-110)
--- NOTE | 2023-05-26 19:51 | P.PN ---
Progress Note - Text Progress Note Date: 05/26/23 Chief Complaint: Worsening wounds This is a 62-year-old patient, follows with Dr. Mnedez. Chronic stable medical conditions include ADHD, herniated disc lower back, smoker. Sacral wounds. Left AKA Patient has lost his insurance for about 4-6 weeks. Was unable to follow for wound care. Had been following with [facility]. He has a sacral decubitus. Also wart on the right foot healed. Patient does continue to vaping and occasional cigarettes. Has increasing pain in the lower back in the sacral area and the right heel. Appetite is fair. No fever no chills. 05/25/2023: Laying in bed. Pain as before. Scheduled for surgery tomorrow. IV Unasyn and IV vancomycin. 05/26/2023: Patient today underwent wound excision of the sacrum by Dr. Marshall and right above-knee amputation by Dr. Zee. Some pain is present. In bed. Active Medications Acetaminophen (Acetaminophen Tab 325 Mg Tab) 650 mg PO Q6HR PRN PRN Reason: Mild Pain or Fever > 100.5 Hydrocodone Bitart/Acetaminophen (Hydrocodone/Apap 10-325mg 1 Each Tab) 1 each PO QID PRN PRN Reason: Pain Last Admin: 05/26/23 17:31 Dose: 1 each Alprazolam (Alprazolam 0.25 Mg Tab) 0.25 mg PO Q6HR PRN PRN Reason: Anxiety Amiodarone HCl (Amiodarone 200 Mg Tab) 200 mg PO DAILY [facility] Last Admin: 05/26/23 08:05 Dose: 200 mg Ascorbic Acid (Ascorbic Acid 500 Mg Tab) 1,000 mg PO DAILY [facility] Last Admin: 05/26/23 07:58 Dose: Not Given Calcium Carbonate/Glycine (Calcium Carbonate 500 Mg Chewable) 1,000 mg PO Q4HR PRN PRN Reason: Dyspepsia Collagenase (Collagenase 250 Unit/Gm Ointment 30 Gm Tube) 1 applic TOPICAL DAILY [facility]; Protocol Last Admin: 05/26/23 08:00 Dose: Not Given Dextrose/Water (Dextrose 50% Syringe 50 Ml) 25 ml IVP PER PROTOCOL PRN; Protocol PRN Reason: Hypoglycemia Dextrose/Water (Dextrose 50% Syringe 50 Ml) 50 ml IVP PER PROTOCOL PRN; Protocol PRN Reason: Hypoglycemia Dextrose/Water (Dextrose 50% Syringe 50 Ml) 25 ml IVP PER PROTOCOL PRN; Protocol PRN Reason: Hypoglycemia Dextrose/Water (Dextrose 50% Syringe 50 Ml) 50 ml IVP PER PROTOCOL PRN; Protocol PRN Reason: Hypoglycemia Enoxaparin Sodium (Enoxaparin 40 Mg/0.4 Ml Syringe) 40 mg SQ DAILY [facility] Last Admin: 05/26/23 07:13 Dose: Not Given Ergocalciferol (Ergocalciferol 1,250 Mcg (50,000 Iu) Capsule) 1,250 mcg PO MO [facility] Folic Acid (Folic Acid 1 Mg Tab) 1 mg PO DAILY [facility] Last Admin: 05/26/23 07:58 Dose: Not Given Gabapentin (Gabapentin 300 Mg Cap) 300 mg PO TID [facility] Last Admin: 05/26/23 16:06 Dose: 300 mg Hydromorphone HCl (Hydromorphone 0.5 Mg/0.5 Ml Syringe) 0.5 mg IVP Q2HR PRN PRN Reason: Breakthrough Pain Last Admin: 05/26/23 18:31 Dose: 0.5 mg Ampicillin Sodium/Sulbactam (Sodium 3 gm/ Sodium Chloride) 100 mls @ 200 mls/hr IVPB Q6HR [facility]; Protocol Last Admin: 05/26/23 17:30 Dose: 200 mls/hr Sodium Chloride (Saline 0.9%) 1,000 mls @ 75 mls/hr IV .[id number] [facility] Last Admin: 05/26/23 15:16 Dose: 75 mls/hr Vancomycin HCl 1,250 mg/ (Sodium Chloride) 250 mls @ 125 mls/hr IVPB Q8H [facility] Last Admin: 05/26/23 12:33 Dose: 250 mls Insulin Aspart (Insulin Aspart (Novolog) 100 Unit/Ml Vial) 0 unit SQ [facility]; Protocol Last Admin: 05/26/23 17:30 Dose: 1 unit Insulin Detemir (Insulin Detemir (Levemir) 100 Unit/Ml Syr) 10 unit SQ [facility] Last Admin: 05/25/23 20:29 Dose: 10 unit Lactulose (Lactulose 20 Gm/30 Ml Cup) 20 gm PO DAILY PRN PRN Reason: Constipation Melatonin (Melatonin 5 Mg Tablet) 5 mg PO [facility] Last Admin: 05/25/23 20:29 Dose: 5 mg Methocarbamol (Methocarbamol 500 Mg Tab) 500 mg PO QID PRN PRN Reason: Pain Metoprolol Tartrate (Metoprolol Tartrate 12.5 Mg Tab) 12.5 mg PO BID [facility] Last Admin: 05/26/23 08:05 Dose: 12.5 mg Miscellaneous Information (Vancomycin Trough Due 1 Each Misc) 1 each MISCELLANE ONCE ONE Stop: 05/28/23 11:01 Naloxone HCl (Naloxone 0.4 Mg/Ml 1 Ml Vial) 0.2 mg IV Q2M PRN PRN Reason: Opioid Reversal Nicotine (Nicotine 21mg/24hr Patch) 1 patch TRANSDERM DAILY [facility] Last Admin: 05/26/23 08:05 Dose: 1 patch Ondansetron HCl (Ondansetron 4 Mg/2 Ml Vial) 4 mg IVP Q8HR PRN PRN Reason: Nausea And Vomiting Temazepam (Temazepam 15 Mg Cap) 15 mg PO HS PRN PRN Reason: Insomnia Last Admin: 05/26/23 02:01 Dose: 15 mg Past medical history to include: Diabetes, possible ADHD, chronic low back pain, herniated disc, atrial fibrillation. COPD. left above-knee amputation Social history: Son lives with the patient. 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 Smokes about a pack a day, now down to a few cigarettes a day. Alcohol occasionally. Physical examination: VITAL SIGNS: 98.6, 85, 17, 99/57 139% room air GENERAL: Laying in bed EYES: Pupils equal. Conjunctiva normal. HEENT: External appearance of nose and ears normal, oral cavity grossly normal. NECK: JVD not raised; masses not palpable. HEART: First and second heart sounds are normal; no edema. LUNGS: Respiratory rate normal; decreased breath sounds. ABDOMEN: Soft, nontender, liver spleen not palpable, no masses palpable. PSYCH: [Alert and oriented x3; mood and affect tired l. MUSCULOSKELETAL: Left AKA. Right above-knee amputation with a dressing in place. Sacral wound. INVESTIGATIONS, reviewed in the clinical context: 05/26/2023: White count 9.1 hemoglobin 9.2 potassium 4 creatinine 0.27 05/25/2023: White count 8.6 and Lopid 9.8 platelets 250 potassium 3.3 creatinine 0.33 05/24/2023: White count 10.4 hemoglobin 8.7 weight 07/02/2005 sodium 135 potassium 3.4 BUN 5.6 creatinine 0.4 HbA1c 11.5 Ultrasound arterial lower extremity moderate right PAD with ankle brachial indices Sacral and coccygeal x-ray: Deep decubitus ulcer with interval osseous destruction of the distal coccygeal segments. Right foot x-ray severe osteopenia. Chest x-ray film personally reviewed by me-hyperinflation EKG tracing personally reviewed by me-normal sinus rhythm Assessment and plan: -Extensive decubitus ulcers including the right heel, ll, sacrum/coccyx. Associated with possible acute on osteomyelitis. Surrounding cellulitis. Sacral wound debrided by Dr. Marshall on May 26 IV Unasyn and IV vancomycin Right above-knee amputation by Dr. Zee on May 26 -Left AKA -Paroxysmal atrial fibrillation: sinus rhythm Amiodarone. Lopressor. -Diabetes mellitus type 2, chronically on insulin Follow Accu-Cheks. -COPD in a current smoker Bronchodilators as needed -Chronic nicotine dependence, cigarette smoker Nicotine patch -Chronic medical debility. Non-ambulatory -Full code Disposition surgery today. Other medications including antibiotics to continue. Past Medical History Past Medical History: Diabetes Mellitus Additional Past Medical History / Comment(s): pressure ulcers[Buttock,simone heals ,rt lateral foot] History of Any Multi-Drug Resistant Organisms: None Reported Past Surgical History: Orthopedic Surgery Additional Past Surgical History / Comment(s): back pain son states pt recently "slipped a disc" taking gabapentin. Left leg above the knee amputation, Past Psychological History: No Psychological Hx Reported Smoking Status: Current every day smoker Past Alcohol Use History: Rare Past Drug Use History: None Reported
[2023-05-26 20:09] LABS: Glucose,Whole Blood 246 mg/dL (70-110)
[2023-05-26] MEDS: INSULIN DETEMIR (LEVEMIR) 100 UNIT/ML SYR SQ SCH (21:16)
[2023-05-26] MEDS: MELATONIN 5 MG TABLET PO SCH (21:20)
[2023-05-27] MEDS: HYDROcodone/APAP 10-325MG 1 EACH TAB PO PRN ×2 (01:50→13:14)
[2023-05-27] MEDS: VANCOMYCIN 1,250 MG in SODIUM CHLORIDE 0.9% 250 ML IVPB SCH ×3 (04:44→19:50)
[2023-05-27] MEDS: HYDROmorphone 0.5 MG/0.5 ML SYRINGE IVP PRN ×5 (05:10→19:41)
[2023-05-27] MEDS: AMPICILLIN-SULBACTAM 3 GM in SODIUM CHLORIDE 0.9% 100 ML IVPB SCH ×4 (06:47→23:13)
[2023-05-27 07:02] LABS: Glucose,Whole Blood 123 mg/dL (70-110)
[2023-05-27] MEDS: INSULIN ASPART (NovoLOG) 100 UNIT/ML VIAL SQ SCH ×4 (07:14→21:02)
[2023-05-27] MEDS: COLLAGENASE 250 UNIT/GM OINTMENT 30 GM TUBE TOPICAL SCH (08:07)
[2023-05-27] MEDS: NICOTINE 21MG/24HR PATCH TRANSDERM SCH (08:10)
[2023-05-27] MEDS: ENOXAPARIN 40 MG/0.4 ML SYRINGE SQ SCH (08:10)
[2023-05-27] MEDS: ASCORBIC ACID 500 MG TAB PO SCH (08:11)
[2023-05-27] MEDS: FOLIC ACID 1 MG TAB PO SCH (08:11)
[2023-05-27] MEDS: METOPROLOL TARTRATE 12.5 MG TAB PO SCH ×2 (08:11→21:02)
[2023-05-27] MEDS: GABAPENTIN 300 MG CAP PO SCH ×3 (08:11→21:02)
[2023-05-27] MEDS: AMIODARONE 200 MG TAB PO SCH (08:11)
[2023-05-27 12:02] LABS: Glucose,Whole Blood 179 mg/dL (70-110)
--- NOTE | 2023-05-27 12:41 | P.PN ---
Subjective Progress Note Date: 05/27/23 Principal diagnosis: Sacral decubitus ulcer Patient resting comfortably. Complaining of mild pain at the amputation site. No bleeding overnight from the sacral wound. He is afebrile. Objective - Vital Signs Vital signs: Vital Signs Temp 98.2 F 05/27/23 07:33 Pulse 82 05/27/23 07:33 Resp 16 05/27/23 07:33 BP 105/64 05/27/23 07:33 Pulse Ox 97 05/27/23 07:33 FiO2 Intake & Output 05/26/23 05/27/23 05/27/23 18:59 06:59 18:59 Intake Total 2201 Output Total 1275 950 600 Balance 926 -950 -600 Intake: IV 1151 Intake, IV Titration 1050 Amount Ampicillin-Sulbactam 3 gm 200 In Sodium Chloride 0.9% 100 ml @ 200 mls/hr IVPB Q6HR [facility] Rx#:[id number] Sodium Chloride 0.9% 1, 600 000 ml @ 75 mls/hr IV . [id number] [facility] Rx#:[id number] Vancomycin 1,250 mg In 250 Sodium Chloride 0.9% 250 ml @ 125 mls/hr IVPB Q8H [facility] Rx#:[id number] Output: Urine 1200 950 600 Estimated Blood Loss 75 Other: Voiding Method Incontinent Indwelling Catheter Indwelling Catheter External Catheter - Exam Sacral wound dressing with mild serosanguineous drainage, mild tenderness, no active bleeding - Labs CBC & Chem 7: 05/26/23 07:44 05/26/23 07:44 Labs: Abnormal Lab Results - Last 24 Hours (Table) 05/26/23 05/26/23 05/26/23 Range/Units 14:09 17:00 20:08 POC Glucose (mg/dL) 145 H 175 H 246 H (70-110) mg/dL 05/27/23 05/27/23 Range/Units 07:00 12:01 POC Glucose (mg/dL) 123 H 179 H (70-110) mg/dL Microbiology - Last 24 Hours (Table) 05/23/23 15:48 Blood Culture Gram Stain - Final Blood Blood Culture - Final Staphylococcus epidermidis 05/23/23 15:41 Blood Culture Gram Stain - Final Blood Blood Culture - Final Staphylococcus epidermidis 05/23/23 15:42 Gram Stain - Final Foot - Right Wound Culture - Final Escherichia coli Providencia stuartii Proteus mirabilis 05/25/23 06:40 Blood Culture - Preliminary Blood Assessment and Plan (1) Unstageable pressure ulcer of sacral region Narrative/Plan: 63-year-old male with sacral decubitus ulcer. Continue plans for wound care per wound care service. They ordered a wound VAC and I think that is reasonable at this point. Continue offloading and nutritional optimization. No further debridement needed at this time. We'll sign off. Please reconsult if needed. Current Visit: No Status: Acute Code(s): L89.150 - PRESSURE ULCER OF SACRAL REGION, UNSTAGEABLE SNOMED Code(s): [id number]
--- NOTE | 2023-05-27 13:05 | P.PN ---
Subjective Progress Note Date: 05/27/23 Patient seen and examined. No complaints or concerns. Pain is better controlled but still with pain Objective - Vital Signs Vital signs: Vital Signs Temp 98.2 F 05/27/23 07:33 Pulse 82 05/27/23 07:33 Resp 16 05/27/23 07:33 BP 105/64 05/27/23 07:33 Pulse Ox 97 05/27/23 07:33 FiO2 Intake & Output 05/26/23 05/27/23 05/27/23 18:59 06:59 18:59 Intake Total 2201 Output Total 1275 950 600 Balance 926 -950 -600 Intake: IV 1151 Intake, IV Titration 1050 Amount Ampicillin-Sulbactam 3 gm 200 In Sodium Chloride 0.9% 100 ml @ 200 mls/hr IVPB Q6HR [facility] Rx#:[id number] Sodium Chloride 0.9% 1, 600 000 ml @ 75 mls/hr IV . [id number] [facility] Rx#:[id number] Vancomycin 1,250 mg In 250 Sodium Chloride 0.9% 250 ml @ 125 mls/hr IVPB Q8H [facility] Rx#:[id number] Output: Urine 1200 950 600 Estimated Blood Loss 75 Other: Voiding Method Incontinent Indwelling Catheter Indwelling Catheter External Catheter - Exam No acute distress in bed. Dressing is clean and dry. - Labs CBC & Chem 7: 05/26/23 07:44 05/26/23 07:44 Labs: Abnormal Lab Results - Last 24 Hours (Table) 05/26/23 05/26/23 05/26/23 Range/Units 14:09 17:00 20:08 POC Glucose (mg/dL) 145 H 175 H 246 H (70-110) mg/dL 05/27/23 05/27/23 Range/Units 07:00 12:01 POC Glucose (mg/dL) 123 H 179 H (70-110) mg/dL Microbiology - Last 24 Hours (Table) 05/25/23 06:40 Blood Culture - Preliminary Blood 05/23/23 15:48 Blood Culture Gram Stain - Final Blood Blood Culture - Final Staphylococcus epidermidis 05/23/23 15:41 Blood Culture Gram Stain - Final Blood Blood Culture - Final Staphylococcus epidermidis 05/23/23 15:42 Gram Stain - Final Foot - Right Wound Culture - Final Escherichia coli Providencia stuartii Proteus mirabilis Assessment and Plan Assessment: Postoperative from right above-knee amputation for nonhealing wound and infection Plan: Plan to change dressing tomorrow. Contact comfort prosthetics for stump pattern puncher. Doing well from a surgical standpoint. Check a.m. CBC
[2023-05-27 17:16] LABS: Glucose,Whole Blood 185 mg/dL (70-110)
[2023-05-27] MEDS: SODIUM CHLORIDE 0.9% 1,000 ML IV SCH (17:32)
[2023-05-27] MEDS: ALPRAZolam 0.25 MG TAB PO PRN (19:42)
[2023-05-27 19:50] LABS: Glucose,Whole Blood 223 mg/dL (70-110)
[2023-05-27 19:55] LABS: Glucose,Whole Blood 233 mg/dL (70-110)
--- NOTE | 2023-05-27 20:32 | P.PN ---
Progress Note - Text Progress Note Date: 05/27/23 Chief Complaint: Worsening wounds This is a 62-year-old patient, follows with Dr. Mendez. Chronic stable medical conditions include ADHD, herniated disc lower back, smoker. Sacral wounds. Left AKA Patient has lost his insurance for about 4-6 weeks. Was unable to follow for wound care. Had been following with [facility]. He has a sacral decubitus. Also wart on the right foot healed. Patient does continue to vaping and occasional cigarettes. Has increasing pain in the lower back in the sacral area and the right heel. Appetite is fair. No fever no chills. 05/25/2023: Laying in bed. Pain as before. Scheduled for surgery tomorrow. IV Unasyn and IV vancomycin. 05/26/2023: Patient today underwent wound excision of the sacrum by Dr. Marshall and right above-knee amputation by Dr. Zee. Some pain is present. In bed. 05/27/2023: Overall feels a bit better. Some pain in the amputation stump. Tolerating diet. On IV Unasyn. IV vancomycin. Active Medications Acetaminophen (Acetaminophen Tab 325 Mg Tab) 650 mg PO Q6HR PRN PRN Reason: Mild Pain or Fever > 100.5 Hydrocodone Bitart/Acetaminophen (Hydrocodone/Apap 10-325mg 1 Each Tab) 1 each PO QID PRN PRN Reason: Pain Last Admin: 05/27/23 13:14 Dose: 1 each Alprazolam (Alprazolam 0.25 Mg Tab) 0.25 mg PO Q6HR PRN PRN Reason: Anxiety Last Admin: 05/27/23 19:42 Dose: 0.25 mg Amiodarone HCl (Amiodarone 200 Mg Tab) 200 mg PO DAILY [facility] Last Admin: 05/27/23 08:11 Dose: 200 mg Ascorbic Acid (Ascorbic Acid 500 Mg Tab) 1,000 mg PO DAILY [facility] Last Admin: 05/27/23 08:11 Dose: 1,000 mg Calcium Carbonate/Glycine (Calcium Carbonate 500 Mg Chewable) 1,000 mg PO Q4HR PRN PRN Reason: Dyspepsia Dextrose/Water (Dextrose 50% Syringe 50 Ml) 25 ml IVP PER PROTOCOL PRN; Protocol PRN Reason: Hypoglycemia Dextrose/Water (Dextrose 50% Syringe 50 Ml) 50 ml IVP PER PROTOCOL PRN; Protocol PRN Reason: Hypoglycemia Dextrose/Water (Dextrose 50% Syringe 50 Ml) 25 ml IVP PER PROTOCOL PRN; Protocol PRN Reason: Hypoglycemia Dextrose/Water (Dextrose 50% Syringe 50 Ml) 50 ml IVP PER PROTOCOL PRN; Protocol PRN Reason: Hypoglycemia Enoxaparin Sodium (Enoxaparin 40 Mg/0.4 Ml Syringe) 40 mg SQ DAILY [facility] Last Admin: 05/27/23 08:10 Dose: 40 mg Ergocalciferol (Ergocalciferol 1,250 Mcg (50,000 Iu) Capsule) 1,250 mcg PO MO [facility] Folic Acid (Folic Acid 1 Mg Tab) 1 mg PO DAILY [facility] Last Admin: 05/27/23 08:11 Dose: 1 mg Gabapentin (Gabapentin 300 Mg Cap) 300 mg PO TID [facility] Last Admin: 05/27/23 16:04 Dose: 300 mg Hydromorphone HCl (Hydromorphone 0.5 Mg/0.5 Ml Syringe) 0.5 mg IVP Q2HR PRN PRN Reason: Breakthrough Pain Last Admin: 05/27/23 19:41 Dose: 0.5 mg Ampicillin Sodium/Sulbactam (Sodium 3 gm/ Sodium Chloride) 100 mls @ 200 mls/hr IVPB Q6HR [facility]; Protocol Last Admin: 05/27/23 17:45 Dose: 200 mls/hr Sodium Chloride (Saline 0.9%) 1,000 mls @ 75 mls/hr IV .[id number] [facility] Last Admin: 05/27/23 17:32 Dose: Not Given Vancomycin HCl 1,250 mg/ (Sodium Chloride) 250 mls @ 125 mls/hr IVPB Q8H [facility] Last Admin: 05/27/23 19:50 Dose: 125 mls/hr Insulin Aspart (Insulin Aspart (Novolog) 100 Unit/Ml Vial) 0 unit SQ ACHS [facility]; Protocol Last Admin: 05/27/23 17:45 Dose: 1 unit Insulin Detemir (Insulin Detemir (Levemir) 100 Unit/Ml Syr) 10 unit SQ HS [facility] Last Admin: 05/26/23 21:16 Dose: 10 unit Lactulose (Lactulose 20 Gm/30 Ml Cup) 20 gm PO DAILY PRN PRN Reason: Constipation Melatonin (Melatonin 5 Mg Tablet) 5 mg PO HS [facility] Last Admin: 05/26/23 21:20 Dose: 5 mg Methocarbamol (Methocarbamol 500 Mg Tab) 500 mg PO QID PRN PRN Reason: Pain Metoprolol Tartrate (Metoprolol Tartrate 12.5 Mg Tab) 12.5 mg PO BID [facility] Last Admin: 05/27/23 08:11 Dose: 12.5 mg Miscellaneous Information (Vancomycin Trough Due 1 Each Misc) 1 each MISCELLANE ONCE ONE Stop: 05/28/23 11:01 Naloxone HCl (Naloxone 0.4 Mg/Ml 1 Ml Vial) 0.2 mg IV Q2M PRN PRN Reason: Opioid Reversal Nicotine (Nicotine 21mg/24hr Patch) 1 patch TRANSDERM DAILY [facility] Last Admin: 05/27/23 08:10 Dose: 1 patch Ondansetron HCl (Ondansetron 4 Mg/2 Ml Vial) 4 mg IVP Q8HR PRN PRN Reason: Nausea And Vomiting Temazepam (Temazepam 15 Mg Cap) 15 mg PO HS PRN PRN Reason: Insomnia Last Admin: 05/26/23 02:01 Dose: 15 mg Past medical history to include: Diabetes, possible ADHD, chronic low back pain, herniated disc, atrial fibrillation. COPD. left above-knee amputation Social history: Son lives with the patient. 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 Smokes about a pack a day, now down to a few cigarettes a day. Alcohol occasionally. Physical examination: VITAL SIGNS: 99.1, 95, 16, 112.76, 95% room air GENERAL: Laying in bed EYES: Pupils equal. Conjunctiva normal. HEENT: External appearance of nose and ears normal, oral cavity grossly normal. NECK: JVD not raised; masses not palpable. HEART: First and second heart sounds are normal; no edema. LUNGS: Respiratory rate normal; decreased breath sounds. ABDOMEN: Soft, nontender, liver spleen not palpable, no masses palpable. PSYCH: [Alert and oriented x3; mood and affect tired l. MUSCULOSKELETAL: Left AKA. Right above-knee amputation with a dressing in place. Sacral wound. INVESTIGATIONS, reviewed in the clinical context: 05/26/2023: White count 9.1 hemoglobin 9.2 potassium 4 creatinine 0.27 05/25/2023: White count 8.6 and Lopid 9.8 platelets 250 potassium 3.3 creatinine 0.33 05/24/2023: White count 10.4 hemoglobin 8.7 weight 07/02/2005 sodium 135 potassium 3.4 BUN 5.6 creatinine 0.4 HbA1c 11.5 Ultrasound arterial lower extremity moderate right PAD with ankle brachial indices Sacral and coccygeal x-ray: Deep decubitus ulcer with interval osseous destruction of the distal coccygeal segments. Right foot x-ray severe osteopenia. Chest x-ray film personally reviewed by me-hyperinflation EKG tracing personally reviewed by me-normal sinus rhythm Assessment and plan: -Extensive decubitus ulcers including the right heel, ll, sacrum/coccyx. Associated with possible acute on osteomyelitis. Surrounding cellulitis. Sacral wound debrided by Dr. Marshall on May 26 IV Unasyn and IV vancomycin Right above-knee amputation by Dr. Zee on May 26 -Left AKA -Paroxysmal atrial fibrillation: sinus rhythm Amiodarone. Lopressor. -Diabetes mellitus type 2, chronically on insulin Follow Accu-Cheks. -COPD in a current smoker Bronchodilators as needed -Chronic nicotine dependence, cigarette smoker Nicotine patch -Chronic medical debility. Non-ambulatory -Full code Continue current medication treatment plan including antibiotics. Wound care. Past Medical History Past Medical History: Diabetes Mellitus Additional Past Medical History / Comment(s): pressure ulcers[Buttock,simone heals ,rt lateral foot] History of Any Multi-Drug Resistant Organisms: None Reported Past Surgical History: Orthopedic Surgery Additional Past Surgical History / Comment(s): back pain son states pt recently "slipped a disc" taking gabapentin. Left leg above the knee amputation, Past Psychological History: No Psychological Hx Reported Smoking Status: Current every day smoker Past Alcohol Use History: Rare Past Drug Use History: None Reported
[2023-05-27] MEDS: TEMAZEPAM 15 MG CAP PO PRN (21:02)
[2023-05-27] MEDS: MELATONIN 5 MG TABLET PO SCH (21:02)
[2023-05-27] MEDS: INSULIN DETEMIR (LEVEMIR) 100 UNIT/ML SYR SQ SCH (21:02)
[2023-05-28] MEDS: HYDROmorphone 0.5 MG/0.5 ML SYRINGE IVP PRN ×7 (01:40→23:05)
[2023-05-28] MEDS: VANCOMYCIN 1,250 MG in SODIUM CHLORIDE 0.9% 250 ML IVPB SCH ×3 (03:56→21:18)
[2023-05-28] MEDS: ALPRAZolam 0.25 MG TAB PO PRN (04:06)
[2023-05-28 05:26] LABS: Basophils % (A) 0 %; Eosinophils # (A) 0.3 k/uL (0-0.7); Eosinophils % (A) 4 %; HCT 26.6 % (39.0-53.0); HGB 8.2 gm/dL (13.0-17.5); Hypochromasia Moderate; Lymphocytes # (A) 1.7 k/uL (1.0-4.8); Lymphocytes % (A) 19 %; MCH 25.1 pg (25.0-35.0); MCHC 30.6 g/dL (31.0-37.0); MCV 81.9 fL (80.0-100.0); Mean Platelet Volume 6.8; Monocytes # (A) 0.5 k/uL (0-1.0); Monocytes % (A) 5 %; Neutrophils # (A) 6.4 k/uL (1.3-7.7); Neutrophils % (A) 71 %; Platelet Count 375 k/uL (150-450); RBC 3.25 m/uL (4.30-5.90); RDW 15.4 % (11.5-15.5)
[2023-05-28 05:40] LABS: African American GFR (CKD) >90 (>60 ml/min/1.73 sqM); Anion Gap 5 mmol/L; Blood Urea Nitrogen 4 mg/dL (9-20); Calcium 7.4 mg/dL (8.4-10.2); Carbon Dioxide 29 mmol/L (22-30); Chloride 103 mmol/L (98-107); Glucose 85 mg/dL (74-99); Non-African American GFR(CKD) >90 (>60 ml/min/1.73 sqM); Potassium 3.5 mmol/L (3.5-5.1); Sodium 137 mmol/L (137-145)
[2023-05-28] MEDS: AMPICILLIN-SULBACTAM 3 GM in SODIUM CHLORIDE 0.9% 100 ML IVPB SCH ×4 (05:54→23:04)
[2023-05-28] MEDS: SODIUM CHLORIDE 0.9% 1,000 ML IV SCH ×2 (05:54→16:58)
[2023-05-28 07:32] LABS: Glucose,Whole Blood 68 mg/dL (70-110)
[2023-05-28 08:01] LABS: Glucose,Whole Blood 97 mg/dL (70-110)
[2023-05-28] MEDS: INSULIN ASPART (NovoLOG) 100 UNIT/ML VIAL SQ SCH ×4 (08:23→21:07)
[2023-05-28] MEDS: ASCORBIC ACID 500 MG TAB PO SCH (09:32)
[2023-05-28] MEDS: FOLIC ACID 1 MG TAB PO SCH (09:32)
[2023-05-28] MEDS: ENOXAPARIN 40 MG/0.4 ML SYRINGE SQ SCH (09:32)
[2023-05-28] MEDS: AMIODARONE 200 MG TAB PO SCH (09:32)
[2023-05-28] MEDS: GABAPENTIN 300 MG CAP PO SCH ×3 (09:32→21:07)
[2023-05-28] MEDS: HYDROcodone/APAP 10-325MG 1 EACH TAB PO PRN ×3 (09:32→23:11)
[2023-05-28] MEDS: NICOTINE 21MG/24HR PATCH TRANSDERM SCH (09:38)
[2023-05-28] MEDS: METOPROLOL TARTRATE 12.5 MG TAB PO SCH ×2 (09:38→21:07)
[2023-05-28] MEDS ORDERED: VANCOMYCIN TROUGH DUE 1 EACH MISC MISCELLANE ONE (11:00)
[2023-05-28 11:13] LABS: African American GFR (CKD) >90 (>60 ml/min/1.73 sqM); Non-African American GFR(CKD) >90 (>60 ml/min/1.73 sqM)
[2023-05-28 12:29] LABS: Glucose,Whole Blood 211 mg/dL (70-110)
--- NOTE | 2023-05-28 13:02 | P.PN ---
Subjective Progress Note Date: 05/26/23 Principal diagnosis: Reason for follow-up is infected sacral pressure ulcer right diabetic foot infection osteomyelitis and bacteremia Patient is a 63-year-old male with a past medical history significant for diabetes mellitus current everyday smoker patient did have a previous history of left cwtyi-grr-ohib amputation presenting to the ER for evaluation generalized weakness patient noticed to have a extensive wound to the sacral area as well as to the right heel and Achilles wound with necrotic changes and foul-smelling order, patient was admitted to hospital for further management.Patient is status post right jaczf-cpw-pxga amputation as well as excisional debridement of the sacral pressure ulcer down to the wound completed on 05/26/2023 unfortunately no cultures were done. On today's evaluation that is 05/26/2023 patient remains to be afebrile patient is breathing comfortably on 6 L nasal cannula oxygen denies any chest pain shortness of breath occasional cough no nausea no vomiting has been complaining of pain to the lower back area. Patient white count of 9.1 creatinine is 0.27 sed rate is 102 CRP is 8.0 Objective - Vital Signs Vital signs: Vital Signs Temp 98.5 F 05/26/23 07:28 Pulse 73 05/26/23 11:10 Resp 16 05/26/23 11:10 BP 117/63 05/26/23 11:10 Pulse Ox 100 05/26/23 11:10 FiO2 Intake & Output 05/25/23 05/26/23 05/26/23 18:59 06:59 18:59 Intake Total 1200 651 Output Total 150 600 Balance 1050 -600 651 Weight 63.503 kg Intake: IV 651 Intake, IV Titration 1200 Amount Ampicillin-Sulbactam 3 gm 200 In Sodium Chloride 0.9% 100 ml @ 200 mls/hr IVPB Q6HR [facility] Rx#:[id number] Sodium Chloride 0.9% 1, 750 000 ml @ 75 mls/hr IV . [id number] [facility] Rx#:[id number] Vancomycin 1,250 mg In 250 Sodium Chloride 0.9% 250 ml @ 125 mls/hr IVPB Q8H [facility] Rx#:[id number] Output: Urine 150 600 Other: Voiding Method Incontinent Incontinent Incontinent External Catheter External Catheter External Catheter - Exam GENERAL DESCRIPTION: Middle-age male lying in bed in no distress RESPIRATORY SYSTEM: Unlabored breathing , decreased breath sounds at bases HEART: S1 S2 regular rate and rhythm , ABDOMEN: Soft , no tenderness EXTREMITIES: Right AKA stump is currently covered in the OR dressing - Labs CBC & Chem 7: 05/28/23 04:52 05/28/23 10:47 Labs: Abnormal Lab Results - Last 24 Hours (Table) 05/25/23 05/25/23 05/26/23 Range/Units 16:58 20:30 07:02 RBC (4.30-5.90) m/uL Hgb (13.0-17.5) gm/dL Hct (39.0-53.0) % ESR (0-20) mm/Hr Sodium (137-145) mmol/L BUN (9-20) mg/dL Creatinine (0.66-1.25) mg/dL Glucose (74-99) mg/dL POC Glucose (mg/dL) 316 H 330 H 201 H (70-110) mg/dL Calcium (8.4-10.2) mg/dL C-Reactive Protein (<1.0) mg/dL 05/26/23 05/26/23 05/26/23 Range/Units 07:44 07:44 07:44 RBC 3.55 L (4.30-5.90) m/uL Hgb 9.2 L (13.0-17.5) gm/dL Hct 29.5 L (39.0-53.0) % ESR 102 H (0-20) mm/Hr Sodium (137-145) mmol/L BUN (9-20) mg/dL Creatinine (0.66-1.25) mg/dL Glucose (74-99) mg/dL POC Glucose (mg/dL) (70-110) mg/dL Calcium (8.4-10.2) mg/dL C-Reactive Protein 8.0 H (<1.0) mg/dL 05/26/23 Range/Units 07:44 RBC (4.30-5.90) m/uL Hgb (13.0-17.5) gm/dL Hct (39.0-53.0) % ESR (0-20) mm/Hr Sodium 134 L (137-145) mmol/L BUN 6 L (9-20) mg/dL Creatinine 0.27 L (0.66-1.25) mg/dL Glucose 167 H (74-99) mg/dL POC Glucose (mg/dL) (70-110) mg/dL Calcium 7.7 L (8.4-10.2) mg/dL C-Reactive Protein (<1.0) mg/dL Microbiology - Last 24 Hours (Table) 05/25/23 06:40 Blood Culture - Preliminary Blood 05/23/23 15:42 Gram Stain - Final Buttock Wound Culture - Final 05/23/23 15:42 Gram Stain - Preliminary Foot - Right Wound Culture - Preliminary Gram Neg Bacilli 05/23/23 15:41 Blood Culture Gram Stain - Preliminary Blood Blood Culture - Preliminary Coagulase Negative Staph 05/23/23 15:48 Blood Culture Gram Stain - Preliminary Blood Blood Culture - Preliminary Coagulase Negative Staph Assessment and Plan (1) Ulcer of sacral region, stage 4 Current Visit: Yes Status: Acute Code(s): L98.429 - NON-PRESSURE CHRONIC ULCER OF BACK WITH UNSPECIFIED SEVERITY SNOMED Code(s): 28190048 (2) Sacral osteomyelitis Current Visit: Yes Status: Acute Code(s): M46.28 - OSTEOMYELITIS OF VERTEB RA, SACRAL AND SACROCOCCYGEAL REGION SNOMED Code(s): 099855550 (3) Bacteremia Current Visit: Yes Status: Acute Code(s): R78.81 - BACTEREMIA SNOMED Code(s): 8894468 (4) Diabetic foot infection Current Visit: Yes Status: Acute Code(s): E11.628 - TYPE 2 DIABETES MELLITUS WITH OTHER SKIN COMPLICATIONS; L08.9 - LOCAL INFECTION OF THE SKIN AND SUBCUTANEOUS TISSUE, UNSP SNOMED Code(s): 947851789 (5) Diabetic ulcer of right foot associated with diabetes mellitus due to underlying condition, with necrosis of bone Current Visit: Yes Status: Acute Code(s): E08.621 - DIABETES MELLITUS DUE TO UNDERLYING CONDITION W FOOT ULCER; L97.514 - NON-PRS CHRONIC ULCER OTH PRT RIGHT FOOT W NECROSIS OF BONE SNOMED Code(s): 457417897 Plan: 1patient presented to hospital with extensive right heel diabetic foot infection concern for underlying osteomyelitis and has significant foul-smelling drainage we will need to cover for the polymicrobial ceferino usually associated diabetic foot infection 2patient also evidence of stage IV sacral pressure ulcer concerning for underlying osteomyelitis on the basis of plain x-rays, Patient has been evaluated by vascular surgery planning for surgical debridement and deep culture. 3positive blood culture with coagulase-negative staph possible skin contamination versus real pathogen we will repeat blood culture 4we will try to obtain deep sacral wound culture at the time of dressing changes tomorrow for now continue with Unasyn and vancomycin and monitor clinical course closely Dictation was produced using [employer] dictation software. please excuse any grammatical, word or spelling errors. Time with Patient: Less than 30
--- NOTE | 2023-05-28 13:04 | P.PN ---
Subjective Progress Note Date: 05/27/23 Principal diagnosis: Reason for follow-up is infected sacral pressure ulcer right diabetic foot infection osteomyelitis and bacteremia Patient is a 63-year-old male with a past medical history significant for diabetes mellitus current everyday smoker patient did have a previous history of left bibeg-tqc-cxej amputation presenting to the ER for evaluation generalized weakness patient noticed to have a extensive wound to the sacral area as well as to the right heel and Achilles wound with necrotic changes and foul-smelling order, patient was admitted to hospital for further management.Patient is status post right bsvik-mmb-gckj amputation as well as excisional debridement of the sacral pressure ulcer down to the wound completed on 05/26/2023 unfortunately no cultures were done. On today's evaluation that is 05/27/2023 patient did have a low-grade fever of 99.7 F this morning patient is breathing comfortably on room air no chest pain shortness of breath or cough no abdominal pain has been complaining of pain to the sacral wound area Patient white count of 9.1 creatinine is 0.27 as of 05/26/2023 sed rate is 102 CRP is 8.0 Objective - Vital Signs Vital signs: Vital Signs Temp 98.2 F 05/27/23 07:33 Pulse 82 05/27/23 07:33 Resp 16 05/27/23 07:33 BP 105/64 05/27/23 07:33 Pulse Ox 97 05/27/23 07:33 FiO2 Intake & Output 05/26/23 05/27/23 05/27/23 18:59 06:59 18:59 Intake Total 2201 Output Total 1275 950 600 Balance 926 -950 -600 Intake: IV 1151 Intake, IV Titration 1050 Amount Ampicillin-Sulbactam 3 gm 200 In Sodium Chloride 0.9% 100 ml @ 200 mls/hr IVPB Q6HR [facility] Rx#:[id number] Sodium Chloride 0.9% 1, 600 000 ml @ 75 mls/hr IV . [id number] [facility] Rx#:[id number] Vancomycin 1,250 mg In 250 Sodium Chloride 0.9% 250 ml @ 125 mls/hr IVPB Q8H [facility] Rx#:[id number] Output: Urine 1200 950 600 Estimated Blood Loss 75 Other: Voiding Method Incontinent Indwelling Catheter Indwelling Catheter External Catheter - Exam GENERAL DESCRIPTION: Middle-age male lying in bed in no distress RESPIRATORY SYSTEM: Unlabored breathing , decreased breath sounds at bases HEART: S1 S2 regular rate and rhythm , ABDOMEN: Soft , no tenderness EXTREMITIES: Right AKA stump is currently covered in the OR dressing Patient did have a stage IV sacral pressure ulcer with a wound palpable no foul-smelling drainage deep cultures were obtained - Labs CBC & Chem 7: 05/28/23 04:52 05/28/23 10:47 Labs: Abnormal Lab Results - Last 24 Hours (Table) 05/26/23 05/26/23 05/26/23 Range/Units 14:09 17:00 20:08 POC Glucose (mg/dL) 145 H 175 H 246 H (70-110) mg/dL 05/27/23 05/27/23 Range/Units 07:00 12:01 POC Glucose (mg/dL) 123 H 179 H (70-110) mg/dL Microbiology - Last 24 Hours (Table) 05/23/23 15:48 Blood Culture Gram Stain - Final Blood Blood Culture - Final Staphylococcus epidermidis 05/23/23 15:41 Blood Culture Gram Stain - Final Blood Blood Culture - Final Staphylococcus epidermidis 05/23/23 15:42 Gram Stain - Final Foot - Right Wound Culture - Final Escherichia coli Providencia stuartii Proteus mirabilis 05/25/23 06:40 Blood Culture - Preliminary Blood Assessment and Plan (1) Ulcer of sacral region, stage 4 Current Visit: Yes Status: Acute Code(s): L98.429 - NON-PRESSURE CHRONIC ULCER OF BACK WITH UNSPECIFIED SEVERITY SNOMED Code(s): 40728157 (2) Sacral osteomyelitis Current Visit: Yes Status: Acute Code(s): M46.28 - OSTEOMYELITIS OF VERTEBRA, SACRAL AND SACROCOCCYGEAL REGION SNOMED Code(s): 233559580 (3) Bacteremia Current Visit: Yes Status: Acute Code(s): R78.81 - BACTEREMIA SNOMED Code(s): 8347152 (4) Diabetic foot infection Current Visit: Yes Status: Acute Code(s): E11.628 - TYPE 2 DIABETES MELLITUS WITH OTHER SKIN COMPLICATIONS; L08.9 - LOCAL INFECTION OF THE SKIN AND SUBCUTANEOUS TISSUE, UNSP SNOMED Code(s): 372752151 (5) Diabetic ulcer of right foot associated with diabetes mellitus due to underlying condition, with necrosis of bone Current Visit: Yes Status: Acute Code(s): E08.621 - DIABETES MELLITUS DUE TO UNDERLYING CONDITION W FOOT ULCER; L97.514 - NON-PRS CHRONIC ULCER OTH PRT RIGHT FOOT W NECROSIS OF BONE SNOMED Code(s): 909137557 Plan: 1patient presented to hospital with extensive right heel diabetic foot infect ion concern for underlying osteomyelitis and has significant foul-smelling drainage we will need to cover for the polymicrobial ceferino usually associated diabetic foot infection 2patient also evidence of stage IV sacral pressure ulcer concerning for underlying osteomyelitis on the basis of plain x-rays, Patient has been evaluated by vascular surgery planning for surgical debridement and deep cultu re. 3positive blood culture with coagulase-negative staph possible skin contamination versus real pathogen we will repeat blood culture 4deep sacral wound culture has been obtained on 05/27/2023 with results will be followed continue with vancomycin and Unasyn with the discharge antibiotics on the basis of those culture y Dictation was produced using [employer] dictation software. please excuse any grammatical, word or spelling errors. Time with Patient: Less than 30
--- NOTE | 2023-05-28 13:07 | P.PN ---
Subjective Progress Note Date: 05/28/23 Principal diagnosis: Reason for follow-up is infected sacral pressure ulcer right diabetic foot infection osteomyelitis and bacteremia Patient is a 63-year-old male with a past medical history significant for diabetes mellitus current everyday smoker patient did have a previous history of left xavwq-uon-iijv amputation presenting to the ER for evaluation generalized weakness patient noticed to have a extensive wound to the sacral area as well as to the right heel and Achilles wound with necrotic changes and foul-smelling order, patient was admitted to hospital for further management.Patient is status post right yeqge-eto-zqwf amputation as well as excisional debridement of the sacral pressure ulcer down to the wound completed on 05/26/2023 unfortunately no cultures were done. On today's evaluation that is 05/28/2023 patient did have a low-grade fever of 99.8 F this morning patient is breathing comfortably on room air without need for supplemental oxygen, patient denies chest pain shortness of breath or cough no abdominal pain has been complaining of pain to the sacral wound area Patient white count of 9.0 creatinine is 0.37 as of 05/26/2023 sed rate is 102 CRP is 8.0, repeat blood culture on 05/25/2023 so far negative sacral wound cultures currently pending Objective - Vital Signs Vital signs: Vital Signs Temp 98.0 F 05/28/23 07:30 Pulse 76 05/28/23 07:30 Resp 16 05/28/23 07:30 BP 115/67 05/28/23 07:30 Pulse Ox 94 L 05/28/23 07:30 FiO2 Intake & Output 05/27/23 05/28/23 05/28/23 18:59 06:59 18:59 Intake Total 1200 Output Total 1600 1700 Balance -400 -1700 Intake: Intake, IV Titration 1200 Amount Ampicillin-Sulbactam 3 gm 200 In Sodium Chloride 0.9% 100 ml @ 200 mls/hr IVPB Q6HR [facility] Rx#:[id number] Sodium Chloride 0.9% 1, 750 000 ml @ 75 mls/hr IV . [id number] [facility] Rx#:[id number] Vancomycin 1,250 mg In 250 Sodium Chloride 0.9% 250 ml @ 125 mls/hr IVPB Q8H [facility] Rx#:[id number] Output: Urine 1600 1700 Other: Voiding Method Indwelling Catheter Indwelling Catheter Indwelling Catheter - Exam GENERAL DESCRIPTION: Middle-age male lying in bed in no distress RESPIRATORY SYSTEM: Unlabored breathing , decreased breath sounds at bases HEART: S1 S2 regular rate and rhythm , ABDOMEN: Soft , no tenderness EXTREMITIES: Patient right AKA stump is covered no drainage on the dressing - Labs CBC & Chem 7: 05/28/23 04:52 05/28/23 10:47 Labs: Abnormal Lab Results - Last 24 Hours (Table) 05/27/23 05/27/23 05/27/23 Range/Units 17:14 19:48 19:53 RBC (4.30-5.90) m/uL Hgb (13.0-17.5) gm/dL Hct (39.0-53.0) % MCHC (31.0-37.0) g/dL BUN (9-20) mg/dL Creatinine (0.66-1.25) mg/dL POC Glucose (mg/dL) 185 H 223 H 233 H (70-110) mg/dL Calcium (8.4-10.2) mg/dL 05/28/23 05/28/23 05/28/23 Range/Units 04:52 04:52 07:31 RBC 3.25 L (4.30-5.90) m/uL Hgb 8.2 L (13.0-17.5) gm/dL Hct 26.6 L (39.0-53.0) % MCHC 30.6 L (31.0-37.0) g/dL BUN 4 L (9-20) mg/dL Creatinine 0.36 L (0.66-1.25) mg/dL POC Glucose (mg/dL) 68 L (70-110) mg/dL Calcium 7.4 L (8.4-10.2) mg/dL 05/28/23 05/28/23 Range/Units 10:47 12:25 RBC (4.30-5.90) m/uL Hgb (13.0-17.5) gm/dL Hct (39.0-53.0) % MCHC (31.0-37.0) g/dL BUN (9-20) mg/dL Creatinine 0.37 L (0.66-1.25) mg/dL POC Glucose (mg/dL) 211 H (70-110) mg/dL Calcium (8.4-10.2) mg/dL Microbiology - Last 24 Hours (Table) 05/25/23 06:40 Blood Culture - Preliminary Blood 05/27/23 12:45 Gram Stain - Preliminary Other - Other Wound Culture - Preliminary 05/23/23 15:48 Blood Culture Gram Stain - Final Blood Blood Culture - Final Staphylococcus epidermidis 05/23/23 15:41 Blood Culture Gram Stain - Final Blood Blood Culture - Final Staphylococcus epidermidis Assessment and Plan (1) Ulcer of sacral region, stage 4 Current Visit: Yes Status: Acute Code(s): L98.429 - NON-PRESSURE CHRONIC ULCER OF BACK WITH UNSPECIFIED SEVERITY SNOMED Code(s): 36020529 (2) Sacral osteomyelitis Current Visit: Yes Status: Acute Code(s): M46.28 - OSTEOMYELITIS OF VERTEBRA, SACRAL AND SACROCOCCYGEAL REGION SNOMED Code(s): 156964220 (3) Bacteremia Current Visit: Yes Status: Acute Code(s): R78.81 - BACTEREMIA SNOMED Code(s): 6118644 (4) Diabetic foot infection Current Visit: Yes Status: Acute Code(s): E11.628 - TYPE 2 DIABETES MELLITUS WITH OTHER SKIN COMPLICATIONS; L08.9 - LOCAL INFECTION OF THE SKIN AND SUBCUTANEOUS TISSUE, UNSP SNOMED Code(s): 722030631 (5) Diabetic ulcer of right foot associated with diabetes mellitus due to underlying condition, with necrosis of bone Current Visit: Yes Status: Acute Code(s): E08.621 - DIABETES MELLITUS DUE TO UNDERLYING CONDITION W FOOT ULCER; L97.514 - NON-PRS CHRONIC ULCER OTH PRT RIGHT FOOT W NECROSIS OF BONE SNOMED Code(s): 461560016 Plan: 1patient presented to hospital with extensive right heel diabetic foot infection concern for underlying osteomyelitis and has significant foul-smelling drainage we will need to cover for the polymicrobial ceferino usually associated diabetic foot infection 2patient also evidence of stage IV sacral pressure ulcer concerning for underlying osteomyelitis on the basis of plain x-rays, Patient has been evaluated by vascular surgery planning for surgical debridement and deep culture. 3positive blood culture with coagulase-negative staph possible skin contamination versus real pathogen , Repeat blood culture on 05/25/2023 currently negative 4deep sacral wound culture has been obtained on 05/27/2023, cultures are currently pending patient to continue the vancomycin and Unasyn with a discharge antibiotic on the basis of final culture Dictation was produced using [employer] dictation software. please excuse any g rammatical, word or spelling errors. Time with Patient: Less than 30
[2023-05-28 17:03] LABS: Glucose,Whole Blood 287 mg/dL (70-110)
[2023-05-28 19:32] LABS: Glucose,Whole Blood 304 mg/dL (70-110)
[2023-05-28] MEDS: INSULIN DETEMIR (LEVEMIR) 100 UNIT/ML SYR SQ SCH (21:07)
[2023-05-28] MEDS: MELATONIN 5 MG TABLET PO SCH (21:07)
[2023-05-28] MEDS: TEMAZEPAM 15 MG CAP PO PRN (21:07)
--- NOTE | 2023-05-28 22:40 | P.PN ---
Progress Note - Text Progress Note Date: 05/28/23 Chief Complaint: Worsening wounds This is a 62-year-old patient, follows with Dr. Mendez. Chronic stable medical conditions include ADHD, herniated disc lower back, smoker. Sacral wounds. Left AKA Patient has lost his insurance for about 4-6 weeks. Was unable to follow for wound care. Had been following with [facility]. He has a sacral decubitus. Also wart on the right foot healed. Patient does continue to vaping and occasional cigarettes. Has increasing pain in the lower back in the sacral area and the right heel. Appetite is fair. No fever no chills. 05/25/2023: Laying in bed. Pain as before. Scheduled for surgery tomorrow. IV Unasyn and IV vancomycin. 05/26/2023: Patient today underwent wound excision of the sacrum by Dr. Marshall and right above-knee amputation by Dr. Zee. Some pain is present. In bed. 05/27/2023: Overall feels a bit better. Some pain in the amputation stump. Tolerating diet. On IV Unasyn. IV vancomycin. 05/28/2023: Fairly good. Some pain present. No new other symptoms. On IV antibiotics. Active Medications Acetaminophen (Acetaminophen Tab 325 Mg Tab) 650 mg PO Q6HR PRN PRN Reason: Mild Pain or Fever > 100.5 Hydrocodone Bitart/Acetaminophen (Hydrocodone/Apap 10-325mg 1 Each Tab) 1 each PO QID PRN PRN Reason: Pain Last Admin: 05/28/23 16:54 Dose: 1 each Alprazolam (Alprazolam 0.25 Mg Tab) 0.25 mg PO Q6HR PRN PRN Reason: Anxiety Last Admin: 05/28/23 04:06 Dose: 0.25 mg Amiodarone HCl (Amiodarone 200 Mg Tab) 200 mg PO DAILY [facility] Last Admin: 05/28/23 09:32 Dose: 200 mg Ascorbic Acid (Ascorbic Acid 500 Mg Tab) 1,000 mg PO DAILY [facility] Last Admin: 05/28/23 09:32 Dose: 1,000 mg Calcium Carbonate/Glycine (Calcium Carbonate 500 Mg Chewable) 1,000 mg PO Q4HR PRN PRN Reason: Dyspepsia Dextrose/Water (Dextrose 50% Syringe 50 Ml) 25 ml IVP PER PROTOCOL PRN; Protoco l PRN Reason: Hypoglycemia Dextrose/Water (Dextrose 50% Syringe 50 Ml) 50 ml IVP PER PROTOCOL PRN; Protocol PRN Reason: Hypoglycemia Dextrose/Water (Dextrose 50% Syringe 50 Ml) 25 ml IVP PER PROTOCOL PRN; Protocol PRN Reason: Hypoglycemia Dextrose/Water (Dextrose 50% Syringe 50 Ml) 50 ml IVP PER PROTOCOL PRN; Protocol PRN Reason: Hypoglycemia Enoxaparin Sodium (Enoxaparin 40 Mg/0.4 Ml Syringe) 40 mg SQ DAILY [facility] Last Admin: 05/28/23 09:32 Dose: 40 mg Ergocalciferol (Ergocalciferol 1,250 Mcg (50,000 Iu) Capsule) 1,250 mcg PO MO [facility] Folic Acid (Folic Acid 1 Mg Tab) 1 mg PO DAILY [facility] Last Admin: 05/28/23 09:32 Dose: 1 mg Gabapentin (Gabapentin 300 Mg Cap) 300 mg PO TID [facility] Last Admin: 05/28/23 21:07 Dose: 300 mg Hydromorphone HCl (Hydromorphone 0.5 Mg/0.5 Ml Syringe) 0.5 mg IVP Q2HR PRN PRN Reason: Breakthrough Pain Last Admin: 05/28/23 21:11 Dose: 0.5 mg Ampicillin Sodium/Sulbactam (Sodium 3 gm/ Sodium Chloride) 100 mls @ 200 mls/hr IVPB Q6HR [facility]; Protocol Last Admin: 05/28/23 18:05 Dose: 200 mls/hr Sodium Chloride (Saline 0.9%) 1,000 mls @ 75 mls/hr IV .[id number] [facility] Last Admin: 05/28/23 16:58 Dose: 75 mls/hr Vancomycin HCl 1,250 mg/ (Sodium Chloride) 250 mls @ 125 mls/hr IVPB Q8H [facility] Last Admin: 05/28/23 21:18 Dose: 125 mls/hr Insulin Aspart (Insulin Aspart (Novolog) 100 Unit/Ml Vial) 0 unit SQ ACHS [facility]; Protocol Last Admin: 05/28/23 21:07 Dose: 4 unit Insulin Detemir (Insulin Detemir (Levemir) 100 Unit/Ml Syr) 10 unit SQ HS [facility] Last Admin: 05/28/23 21:07 Dose: 10 unit Lactulose (Lactulose 20 Gm/30 Ml Cup) 20 gm PO DAILY PRN PRN Reason: Constipation Melatonin (Melatonin 5 Mg Tablet) 5 mg PO HS [facility] Last Admin: 05/28/23 21:07 Dose: 5 mg Methocarbamol (Methocarbamol 500 Mg Tab) 500 mg PO QID PRN PRN Reason: Pain Metoprolol Tartrate (Metoprolol Tartrate 12.5 Mg Tab) 12.5 mg PO BID [facility] Last Admin: 05/28/23 21:07 Dose: 12.5 mg Naloxone HCl (Naloxone 0.4 Mg/Ml 1 Ml Vial) 0.2 mg IV Q2M PRN PRN Reason: Opioid Reversal Nicotine (Nicotine 21mg/24hr Patch) 1 patch TRANSDERM DAILY [facility] Last Admin: 05/28/23 09:38 Dose: 1 patch Ondansetron HCl (Ondansetron 4 Mg/2 Ml Vial) 4 mg IVP Q8HR PRN PRN Reason: Nausea And Vomiting Temazepam (Temazepam 15 Mg Cap) 15 mg PO HS PRN PRN Reason: Insomnia Last Admin: 05/28/23 21:07 Dose: 15 mg Past medical history to include: Diabetes, possible ADHD, chronic low back pain, herniated disc, atrial fibrillation. COPD. left above-knee amputation Social history: Son lives with the patient. 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 Smokes about a pack a day, now down to a few cigarettes a day. Alcohol occasionally. Physical examination: VITAL SIGNS: 98.4, 68, 18, 108/69, 97% room air GENERAL: Laying in bed EYES: Pupils equal. Conjunctiva normal. HEENT: External appearance of nose and ears normal, oral cavity grossly normal. NECK: JVD not raised; masses not palpable. HEART: First and second heart sounds are normal; no edema. LUNGS: Respiratory rate normal; decreased breath sounds. ABDOMEN: Soft, nontender, liver spleen not palpable, no masses palpable. PSYCH: [Alert and oriented x3; mood and affect tired l. MUSCULOSKELETAL: Left AKA. Right above-knee amputation with a dressing in place. Sacral wound. INVESTIGATIONS, reviewed in the clinical context: 05/28/2023: White count 19 hemoglobin 8.2 potassium 3.5 05/26/2023: White count 9.1 hemoglobin 9.2 potassium 4 creatinine 0.27 05/25/2023: White count 8.6 and Lopid 9.8 platelets 250 potassium 3.3 creatinine 0.33 05/24/2023: White count 10.4 hemoglobin 8.7 weight 07/02/2005 sodium 135 po tassium 3.4 BUN 5.6 creatinine 0.4 HbA1c 11.5 Ultrasound arterial lower extremity moderate right PAD with ankle brachial indices Sacral and coccygeal x-ray: Deep decubitus ulcer with interval osseous destruction of the distal coccygeal segments. Right foot x-ray severe osteopenia. Chest x-ray film personally reviewed by me-hyperinflation EKG tracing personally reviewed by me-normal sinus rhythm Assessment and plan: -Extensive decubitus ulcers including the right heel, ll, sacrum/coccyx. Associated with possible acute on osteomyelitis. Surrounding cellulitis. Sacral wound debrided by Dr. Marshall on May 26 IV Unasyn and IV vancomycin Right above-knee amputation by Dr. Zee on May 26 -Left AKA -Paroxysmal atrial fibrillation: sinus rhythm Amiodarone. Lopressor. -Acute postprocedure blood loss anemia expected from surgery IV Ferrlecit-2 doses -Diabetes mellitus type 2, chronically on insulin Follow Accu-Cheks. -COPD in a current smoker Bronchodilators as needed -Chronic nicotine dependence, cigarette smoker Nicotine patch -Chronic medical debility. Non-ambulatory -Full code Continue current medication treatment plan including antibiotics. Wound care. Past Medical History Past Medical History: Diabetes Mellitus Additional Past Medical History / Comment(s): pressure ulcers[Buttock,simone heals ,rt lateral foot] History of Any Multi-Drug Resistant Organisms: None Reported Past Surgical History: Orthopedic Surgery Additional Past Surgical History / Comment(s): back pain son states pt recently "slipped a disc" taking gabapentin. Left leg above the knee amputation, Past Psychological History: No Psychological Hx Reported Smoking Status: Current every day smoker Past Alcohol Use History: Rare Past Drug Use History: None Reported
[2023-05-29] MEDS: HYDROmorphone 0.5 MG/0.5 ML SYRINGE IVP PRN ×8 (01:06→22:36)
[2023-05-29] MEDS: ALPRAZolam 0.25 MG TAB PO PRN ×2 (01:10→20:35)
[2023-05-29] MEDS: VANCOMYCIN 1,250 MG in SODIUM CHLORIDE 0.9% 250 ML IVPB SCH ×2 (04:21→12:55)
[2023-05-29] MEDS: AMPICILLIN-SULBACTAM 3 GM in SODIUM CHLORIDE 0.9% 100 ML IVPB SCH ×2 (06:40→11:43)
[2023-05-29] MEDS: SODIUM CHLORIDE 0.9% 1,000 ML IV SCH ×2 (06:41→20:48)
[2023-05-29 07:07] LABS: Glucose,Whole Blood 158 mg/dL (70-110)
[2023-05-29 08:17] LABS: African American GFR (CKD) >90 (>60 ml/min/1.73 sqM); Non-African American GFR(CKD) >90 (>60 ml/min/1.73 sqM)
[2023-05-29] MEDS: ENOXAPARIN 40 MG/0.4 ML SYRINGE SQ SCH (08:22)
[2023-05-29] MEDS: METOPROLOL TARTRATE 12.5 MG TAB PO SCH ×2 (08:22→20:47)
[2023-05-29] MEDS: INSULIN ASPART (NovoLOG) 100 UNIT/ML VIAL SQ SCH ×4 (08:22→20:47)
[2023-05-29] MEDS: ASCORBIC ACID 500 MG TAB PO SCH (08:22)
[2023-05-29] MEDS: AMIODARONE 200 MG TAB PO SCH (08:22)
[2023-05-29] MEDS: FOLIC ACID 1 MG TAB PO SCH (08:22)
[2023-05-29] MEDS: GABAPENTIN 300 MG CAP PO SCH ×3 (08:22→20:47)
[2023-05-29] MEDS: NICOTINE 21MG/24HR PATCH TRANSDERM SCH (08:23)
[2023-05-29] MEDS: SODIUM FERRIC GLUCONAT-SUCROSE 125 MG in SODIUM CHLORIDE 0.9% 100 ML IVPB SCH (08:53)
[2023-05-29 12:00] LABS: Glucose,Whole Blood 102 mg/dL (70-110)
[2023-05-29] MEDS: HYDROcodone/APAP 10-325MG 1 EACH TAB PO PRN (13:05)
--- NOTE | 2023-05-29 14:21 | P.PN ---
Subjective Progress Note Date: 05/29/23 Principal diagnosis: Reason for follow-up is infected sacral pressure ulcer right diabetic foot infection osteomyelitis and bacteremia Patient is a 63-year-old male with a past medical history significant for diabetes mellitus current everyday smoker patient did have a previous history of left tmjxm-[id number]-tvnv amputation presenting to the ER for evaluation generalized weakness patient noticed to have a extensive wound to the sacral area as well as to the right heel and Achilles wound with necrotic changes and foul-smelling order, patient was admitted to hospital for further management.Patient is status post right mwqlm-hck-ibsx amputation as well as excisional debridement of the sacral pressure ulcer down to the wound completed on 05/26/2023 unfortunately no cultures were done. On today's evaluation that is 05/19/2023, the patient is afebrile this morning the patient is breathing comfortably on room air denies any chest pain shortness of breath or cough no nausea vomiting no abdominal pain or any worsening pain to the sacral wound area. Patient did have white count of 9.0 creatinine 0.40 the sacral culture growing gram-negative bacilli blood culture repeated 05/25/2023 negative Objective - Vital Signs Vital signs: Vital Signs Temp 98.3 F 05/29/23 08:00 Pulse 75 05/29/23 08:00 Resp 16 05/29/23 08:00 BP 111/72 05/29/23 08:00 Pulse Ox 95 05/29/23 08:00 FiO2 Intake & Output 05/28/23 05/29/23 05/29/23 18:59 06:59 18:59 Intake Total 120 Output Total 1300 2800 Balance -1300 -2800 120 Intake: Oral 120 Output: Urine 1300 2800 Other: Voiding Method Indwelling Catheter Indwelling Catheter Indwelling Catheter - Exam GENERAL DESCRIPTION: Middle-age male lying in bed in no distress RESPIRATORY SYSTEM: Unlabored breathing , decreased breath sounds at bases HEART: S1 S2 regular rate and rhythm , ABDOMEN: Soft , no tenderness EXTREMITIES: Patient right AKA stump is covered no drainage on the dressing - Labs CBC & Chem 7: 05/28/23 04:52 05/29/23 07:23 Labs: Abnormal Lab Results - Last 24 Hours (Table) 05/28/23 05/28/23 05/28/23 Range/Units 12:25 17:02 19:26 Creatinine (0.66-1.25) mg/dL POC Glucose (mg/dL) 211 H 287 H 304 H (70-110) mg/dL 05/29/23 05/29/23 Range/Units 06:57 07:23 Creatinine 0.40 L (0.66-1.25) mg/dL POC Glucose (mg/dL) 158 H (70-110) mg/dL Microbiology - Last 24 Hours (Table) 05/26/23 12:50 Urine Culture - Final Urine,Catheterized 05/27/23 12:45 Gram Stain - Preliminary Other - Other Wound Culture - Preliminary Gram Neg Bacilli 05/25/23 06:40 Blood Culture - Preliminary Blood Assessment and Plan (1) Ulcer of sacral region, stage 4 Current Visit: Yes Status: Acute Code(s): L98.429 - NON-PRESSURE CHRONIC ULCER OF BACK WITH UNSPECIFIED SEVERITY SNOMED Code(s): 02881644 (2) Sacral osteomyelitis Current Visit: Yes Status: Acute Code(s): M46.28 - OSTEOMYELITIS OF VERTEBRA, SACRAL AND SACROCOCCYGEAL REGION SNOMED Code(s): 659745248 (3) Bacteremia Current Visit: Yes Status: Acute Code(s): R78.81 - BACTEREMIA SNOMED Code(s): 1754464 (4) Diabetic foot infection Current Visit: Yes Status: Acute Code(s): E11.628 - TYPE 2 DIABETES MELLITUS WITH OTHER SKIN COMPLICATIONS; L08.9 - LOCAL INFECTION OF THE SKIN AND SUBCUTANEOUS TISSUE, UNSP SNOMED Code(s): 529108230 (5) Diabetic ulcer of right foot associated with diabetes mellitus due to underlying condition, with necrosis of bone Current Visit: Yes Status: Acute Code(s): E08.621 - DIABETES MELLITUS DUE TO UNDERLYING CONDITION W FOOT ULCER; L97.514 - NON-PRS CHRONIC ULCER OTH PRT RIGHT FOOT W NECROSIS OF BONE SNOMED Code(s): 786108783 Plan: 1patient presented to hospital with extensive right heel diabetic foot infection concern for underlying osteomyelitis and has significant foul-smelling drainage we will need to cover for the polymicrobial ceferino usually associated diabetic foot infection 2patient also evidence of stage IV sacral pressure ulcer concerning for underlying osteomyelitis on the basis of plain x-rays, Patient Is status post surgical debridement with a wound extending down to the bone no OR culture, cultures done on the floor currently growing gram-negative bacilli. 3patient with positive blood culture with coagulase-negative staph likely skin contamination repeat blood culture 05/25/2023 has been negative we will discontinue vancomycin 3with the sacral wound culture growing gram-negative bacilli vancomycin Unasyn will be discontinued patient was started on Zosyn discharged to biotic on the basis of final culture Dictation was produced using [id number] dictation software. please excuse any grammatical, word or spelling errors. Time with Patient: Less than 30
[2023-05-29] MEDS: PIPERACILLIN-TAZOBACTAM 3.375 GM in SODIUM CHLORIDE 0.9% 100 ML IVPB SCH ×2 (16:18→23:55)
[2023-05-29 17:11] LABS: Glucose,Whole Blood 163 mg/dL (70-110)
--- NOTE | 2023-05-29 17:51 | P.PN ---
Progress Note - Text Progress Note Date: 05/29/23 Chief Complaint: Worsening wounds This is a 62-year-old patient, follows with Dr. Mendez. Chronic stable medical conditions include ADHD, herniated disc lower back, smoker. Sacral wounds. Left AKA Patient has lost his insurance for about 4-6 weeks. Was unable to follow for wound care. Had been following with [facility]. He has a sacral decubitus. Also wart on the right foot healed. Patient does continue to vaping and occasional cigarettes. Has increasing pain in the lower back in the sacral area and the right heel. Appetite is fair. No fever no chills. 05/25/2023: Laying in bed. Pain as before. Scheduled for surgery tomorrow. IV Unasyn and IV vancomycin. 05/26/2023: Patient today underwent wound excision of the sacrum by Dr. Marshall and right above-knee amputation by Dr. Zee. Some pain is present. In bed. 05/27/2023: Overall feels a bit better. Some pain in the amputation stump. Tolerating diet. On IV Unasyn. IV vancomycin. 05/28/2023: Fairly good. Some pain present. No new other symptoms. On IV antibiotics. 05/29/2023: Some pain present. Tolerating diet. Continued IV antibodies. Wound dressing per vascular. Active Medications Acetaminophen (Acetaminophen Tab 325 Mg Tab) 650 mg PO Q6HR PRN PRN Reason: Mild Pain or Fever > 100.5 Hydrocodone Bitart/Acetaminophen (Hydrocodone/Apap 10-325mg 1 Each Tab) 1 each PO QID PRN PRN Reason: Pain Last Admin: 05/29/23 13:05 Dose: 1 each Alprazolam (Alprazolam 0.25 Mg Tab) 0.25 mg PO Q6HR PRN PRN Reason: Anxiety Last Admin: 05/29/23 01:10 Dose: 0.25 mg Amiodarone HCl (Amiodarone 200 Mg Tab) 200 mg PO DAILY [facility] Last Admin: 05/29/23 08:22 Dose: 200 mg Ascorbic Acid (Ascorbic Acid 500 Mg Tab) 1,000 mg PO DAILY [facility] Last Admin: 05/29/23 08:22 Dose: 1,000 mg Calcium Carbonate/Glycine (Calcium Carbonate 500 Mg Chewable) 1,000 mg PO Q4HR PRN PRN Reason: Dyspepsia Dextrose/Water (Dextrose 50% Syringe 50 Ml) 25 ml IVP PER PROTOCOL PRN; Protocol PRN Reason: Hypoglycemia Dextrose/Water (Dextrose 50% Syringe 50 Ml) 50 ml IVP PER PROTOCOL PRN; Protocol PRN Reason: Hypoglycemia Dextrose/Water (Dextrose 50% Syringe 50 Ml) 25 ml IVP PER PROTOCOL PRN; Protocol PRN Reason: Hypoglycemia Dextrose/Water (Dextrose 50% Syringe 50 Ml) 50 ml IVP PER PROTOCOL PRN; Protocol PRN Reason: Hypoglycemia Enoxaparin Sodium (Enoxaparin 40 Mg/0.4 Ml Syringe) 40 mg SQ DAILY [facility] Last Admin: 05/29/23 08:22 Dose: 40 mg Ergocalciferol (Ergocalciferol 1,250 Mcg (50,000 Iu) Capsule) 1,250 mcg PO MO [facility] Folic Acid (Folic Acid 1 Mg Tab) 1 mg PO DAILY [facility] Last Admin: 05/29/23 08:22 Dose: 1 mg Gabapentin (Gabapentin 300 Mg Cap) 300 mg PO TID [facility] Last Admin: 05/29/23 16:18 Dose: 300 mg Hydromorphone HCl (Hydromorphone 0.5 Mg/0.5 Ml Syringe) 0.5 mg IVP Q2HR PRN PRN Reason: Breakthrough Pain Last Admin: 05/29/23 17:36 Dose: 0.5 mg Sodium Chloride (Saline 0.9%) 1,000 mls @ 75 mls/hr IV .[id number] [facility] Last Admin: 05/29/23 06:41 Dose: 75 mls/hr Ferric Sodium Gluconate 125 mg (/ Sodium Chloride) 110 mls @ 100 mls/hr IVPB DAILY [facility] Stop: 05/30/23 10:05 Last Admin: 05/29/23 08:53 Dose: 100 mls/hr Piperacillin Sod/Tazobactam (Sod 3.375 gm/ Sodium Chloride) 100 mls @ 25 mls/hr IVPB Q8HR [facility]; Protocol Last Admin: 05/29/23 16:18 Dose: 25 mls/hr Insulin Aspart (Insulin Aspart (Novolog) 100 Unit/Ml Vial) 0 unit SQ ACHS [facility]; Protocol Last Admin: 05/29/23 17:36 Dose: 1 unit Insulin Detemir (Insulin Detemir (Levemir) 100 Unit/Ml Syr) 10 unit SQ HS [facility] Last Admin: 05/28/23 21:07 Dose: 10 unit Lactulose (Lactulose 20 Gm/30 Ml Cup) 20 gm PO DAILY PRN PRN Reason: Constipation Melatonin (Melatonin 5 Mg Tablet) 5 mg PO [facility] Last Admin: 05/28/23 21:07 Dose: 5 mg Methocarbamol (Methocarbamol 500 Mg Tab) 500 mg PO QID PRN PRN Reason: Pain Metoprolol Tartrate (Metoprolol Tartrate 12.5 Mg Tab) 12.5 mg PO BID [facility] Last Admin: 05/29/23 08:22 Dose: 12.5 mg Naloxone HCl (Naloxone 0.4 Mg/Ml 1 Ml Vial) 0.2 mg IV Q2M PRN PRN Reason: Opioid Reversal Nicotine (Nicotine 21mg/24hr Patch) 1 patch TRANSDERM DAILY [facility] Last Admin: 05/29/23 08:23 Dose: 1 patch Ondansetron HCl (Ondansetron 4 Mg/2 Ml Vial) 4 mg IVP Q8HR PRN PRN Reason: Nausea And Vomiting Temazepam (Temazepam 15 Mg Cap) 15 mg PO HS PRN PRN Reason: Insomnia Last Admin: 05/28/23 21:07 Dose: 15 mg Past medical history to include: Diabetes, possible ADHD, chronic low back pain, herniated disc, atrial fibrillation. COPD. left above-knee amputation Social history: Son lives with the patient. 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 Smokes about a pack a day, now down to a few cigarettes a day. Alcohol occasionally. Physical examination: VITAL SIGNS: 98.6, 66, 17, 106/66, 94% room air GENERAL: Laying in bed EYES: Pupils equal. Conjunctiva normal. HEENT: External appearance of nose and ears normal, oral cavity grossly normal. NECK: JVD not raised; masses not palpable. HEART: First and second heart sounds are normal; no edema. LUNGS: Respiratory rate normal; decreased breath sounds. ABDOMEN: Soft, nontender, liver spleen not palpable, no masses palpable. PSYCH: [Alert and oriented x3; mood and affect tired l. MUSCULOSKELETAL: Left AKA. Right above-knee amputation with a dressing in place. Sacral wound. INVESTIGATIONS, reviewed in the clinical context: 05/28/2023: White count 19 hemoglobin 8.2 potassium 3.5 05/26/2023: White count 9.1 hemoglobin 9.2 potassium 4 creatinine 0.27 05/25/2023: White count 8.6 and Lopid 9.8 platelets 250 potassium 3.3 creatinine 0.33 05/24/2023: White count 10.4 hemoglobin 8.7 weight 07/02/2005 sodium 135 potassium 3.4 BUN 5.6 creatinine 0.4 HbA1c 11.5 Ultrasound arterial lower extremity moderate right PAD with ankle brachial indices Sacral and coccygeal x-ray: Deep decubitus ulcer with interval osseous destruction of the distal coccygeal segments. Right foot x-ray severe osteopenia. Chest x-ray film personally reviewed by me-hyperinflation EKG tracing personally reviewed by me-normal sinus rhythm Assessment and plan: -Extensive decubitus ulcers including the right heel, ll, sacrum/coccyx. Associated with possible acute on osteomyelitis. Surrounding cellulitis. Sacral wound debrided by Dr. Marshall on May 26 IV Unasyn and IV vancomycin Right above-knee amputation by Dr. Zee on May 26 -Left AKA -Paroxysmal atrial fibrillation: sinus rhythm Amiodarone. Lopressor. -Acute postprocedure blood loss anemia expected from surgery IV Ferrlecit-2 doses -Diabetes mellitus type 2, chronically on insulin Follow Accu-Cheks. -COPD in a current smoker Bronchodilators as needed -Chronic nicotine dependence, cigarette smoker Nicotine patch -Chronic medical debility. Non-ambulatory -Full code Discussed patient Past Medical History Past Medical History: Diabetes Mellitus Additional Past Medical History / Comment(s): pressure ulcers[Buttock,simone heals ,rt lateral foot] History of Any Multi-Drug Resistant Organisms: None Reported Past Surgical History: Orthopedic Surgery Additional Past Surgical History / Comment(s): back pain son states pt recently "slipped a disc" taking gabapentin. Left leg above the knee amputation, Past Psychological History: No Psychological Hx Reported Smoking Status: Current every day smoker Past Alcohol Use History: Rare Past Drug Use History: None Reported
[2023-05-29 20:10] LABS: Glucose,Whole Blood 159 mg/dL (70-110)
[2023-05-29] MEDS: INSULIN DETEMIR (LEVEMIR) 100 UNIT/ML SYR SQ SCH (20:47)
[2023-05-29] MEDS: MELATONIN 5 MG TABLET PO SCH (20:48)
[2023-05-30] MEDS: HYDROcodone/APAP 10-325MG 1 EACH TAB PO PRN ×4 (00:11→21:30)
[2023-05-30] MEDS: HYDROmorphone 0.5 MG/0.5 ML SYRINGE IVP PRN ×7 (02:26→23:04)
[2023-05-30] MEDS: SODIUM CHLORIDE 0.9% 1,000 ML IV SCH ×2 (06:17→20:16)
[2023-05-30 07:30] LABS: Glucose,Whole Blood 115 mg/dL (70-110)
[2023-05-30] MEDS: INSULIN ASPART (NovoLOG) 100 UNIT/ML VIAL SQ SCH ×4 (07:38→20:49)
[2023-05-30] MEDS: FOLIC ACID 1 MG TAB PO SCH (08:47)
[2023-05-30] MEDS: METOPROLOL TARTRATE 12.5 MG TAB PO SCH ×2 (08:47→20:15)
[2023-05-30] MEDS: AMIODARONE 200 MG TAB PO SCH (08:47)
[2023-05-30] MEDS: GABAPENTIN 300 MG CAP PO SCH ×3 (08:47→21:30)
[2023-05-30] MEDS: NICOTINE 21MG/24HR PATCH TRANSDERM SCH (08:47)
[2023-05-30] MEDS: ASCORBIC ACID 500 MG TAB PO SCH (08:48)
[2023-05-30] MEDS: ENOXAPARIN 40 MG/0.4 ML SYRINGE SQ SCH (08:48)
[2023-05-30] MEDS ORDERED: ERGOCALCIFEROL 1,250 MCG (50,000 IU) CAPSULE PO SCH (09:00)
[2023-05-30] MEDS: SODIUM FERRIC GLUCONAT-SUCROSE 125 MG in SODIUM CHLORIDE 0.9% 100 ML IVPB SCH (09:09)
[2023-05-30] MEDS: PIPERACILLIN-TAZOBACTAM 3.375 GM in SODIUM CHLORIDE 0.9% 100 ML IVPB SCH ×2 (10:16→16:24)
[2023-05-30 10:35] LABS: Basophils # (A) 0.04 X 10*3/uL (0.00-0.10); Basophils % (A) 0.5 %; Eosinophils # (A) 0.37 X 10*3/uL (0.04-0.35); HCT 27.5 % (39.6-50.0); Lymphocytes % (A) 28.3 %; MCH 24.2 pg (27.0-32.0); MCHC 29.1 g/dL (32.0-37.0); MCV 83.3 FL (80.0-97.0); Mean Platelet Volume 8.9 FL (9.5-12.2); Monocytes # (A) 0.63 X 10*3/uL (0.20-1.00); Monocytes % (A) 8.5 %; NRBC Per 100 WBC 0 X 10*3/uL (0.00-0.01); Neutrophils # (A) 4.23 X 10*3/uL (1.80-7.70); Neutrophils % (A) 57.2 %; Platelet Count 396 X 10*3/uL (140-440); RDW 15.5 % (11.5-14.5); WBC 7.41 X 10*3/uL (4.50-10.00)
[2023-05-30 10:48] LABS: BUN/Creat Ratio 11.25 Ratio (12.00-20.00); Blood Urea Nitrogen 4.5 mg/dL (9.0-27.0); Calcium 7.9 mg/dL (8.7-10.3); Carbon Dioxide 29.6 mmol/L (21.6-31.8); Chloride 104 mmol/L (96-109); Glucose 122 mg/dL (70-110); Potassium 4.1 mmol/L (3.5-5.5); Sodium 141 mmol/L (135-145)
[2023-05-30 12:10] LABS: Glucose,Whole Blood 108 mg/dL (70-110)
--- NOTE | 2023-05-30 16:06 | P.PN ---
Subjective Progress Note Date: 05/30/23 Principal diagnosis: Reason for follow-up is infected sacral pressure ulcer right diabetic foot infection osteomyelitis and bacteremia Patient is a 63-year-old male with a past medical history significant for diabetes mellitus current everyday smoker patient did have a previous history of left dptwh-kix-zago amputation presenting to the ER for evaluation generalized weakness patient noticed to have a extensive wound to the sacral area as well as to the right heel and Achilles wound with necrotic changes and foul-smelling order, patient was admitted to hospital for further management.Patient is status post right emgee-msb-brha amputation as well as excisional debridement of the sacral pressure ulcer down to the wound completed on 05/26/2023 unfortunately no cultures were done. On today's evaluation that is 05/30/2023, the patient remains to be afebrile, the patient is breathing comfortably on room air without need for supplemental oxygen patient denies having any chest pain shortness of breath or cough, the patient denies any nausea no vomiting has been complaining of pain in his lower half of the body and wants the pain medication to be adjusted up Patient did have white count 7.41 creatinine 0.4 culture did grow Proteus that is a sensitive pathogen Objective - Vital Signs Vital signs: Vital Signs Temp 98.6 F 05/30/23 13:20 Pulse 69 05/30/23 13:20 Resp 17 05/30/23 13:20 BP 122/70 05/30/23 13:20 Pulse Ox 95 05/30/23 13:20 FiO2 Intake & Output 05/29/23 05/30/23 05/30/23 18:59 06:59 18:59 Intake Total 570 240 Output Total 1700 2325 Balance -1130 -2325 240 Intake: Oral 570 240 Output: Urine 1700 2325 Uretheral (Zee) 1200 Other: Voiding Method Indwelling Catheter Indwelling Catheter Indwelling Catheter - Exam GENERAL DESCRIPTION: Middle-age male lying in bed in no distress RESPIRATORY SYSTEM: Unlabored breathing , decreased breath sounds at bases HEART: S1 S2 regular rate and rhythm , ABDOMEN: Soft , no tenderness EXTREMITIES: Patient right AKA stump is covered no drainage on the dressing - Labs CBC & Chem 7: 05/30/23 06:08 05/30/23 06:08 Labs: Abnormal Lab Results - Last 24 Hours (Table) 05/29/23 05/29/23 05/30/23 Range/Units 17:10 20:06 06:08 RBC 3.30 L (4.40-5.60) X 10*6/uL Hgb 8.0 L (13.0-17.0) g/dL Hct 27.5 L (39.6-50.0) % MCH 24.2 L (27.0-32.0) pg MCHC 29.1 L (32.0-37.0) g/dL RDW 15.5 H (11.5-14.5) % MPV 8.9 L (9.5-12.2) FL Eosinophils # 0.37 H (0.04-0.35) X 10*3/uL BUN (9.0-27.0) mg/dL Creatinine (0.6-1.5) mg/dL BUN/Creatinine Ratio (12.00-20.00) Ratio Glucose (70-110) mg/dL POC Glucose (mg/dL) 163 H 159 H (70-110) mg/dL Calcium (8.7-10.3) mg/dL C-Reactive Protein (0.00-0.80) mg/dL 05/30/23 05/30/23 Range/Units 06:08 07:06 RBC (4.40-5.60) X 10*6/uL Hgb (13.0-17.0) g/dL Hct (39.6-50.0) % MCH (27.0-32.0) pg MCHC (32.0-37.0) g/dL RDW (11.5-14.5) % MPV (9.5-12.2) FL Eosinophils # (0.04-0.35) X 10*3/uL BUN 4.5 L (9.0-27.0) mg/dL Creatinine 0.4 L (0.6-1.5) mg/dL BUN/Creatinine Ratio 11.25 L (12.00-20.00) Ratio Glucose 122 H (70-110) mg/dL POC Glucose (mg/dL) 115 H (70-110) mg/dL Calcium 7.9 L (8.7-10.3) mg/dL C-Reactive Protein 5.70 H (0.00-0.80) mg/dL Microbiology - Last 24 Hours (Table) 12/29/23 12:45 Anaerobic Culture - Preliminary Other - Other 05/25/23 06:40 Blood Culture - Final Blood 05/27/23 12:45 Gram Stain - Final Other - Other Wound Culture - Final Proteus mirabilis Assessment and Plan (1) Ulcer of sacral region, stage 4 Current Visit: Yes Status: Acute Code(s): L98.429 - NON-PRESSURE CHRONIC ULCER OF BACK WITH UNSPECIFIED SEVERITY SNOMED Code(s): 66452608 (2) Sacral osteomyelitis Current Visit: Yes Status: Acute Code(s): M46.28 - OSTEOMYELITIS OF VERTEBRA, SACRAL AND SACROCOCCYGEAL REGION SNOMED Code(s): 777382736 (3) Bacteremia Current Visit: Yes Status: Acute Code(s): R78.81 - BACTEREMIA SNOMED Code(s): 1260900 (4) Diabetic foot infection Current Visit: Yes Status: Acute Code(s): E11.628 - TYPE 2 DIABETES MELLITUS WITH OTHER SKIN COMPLICATIONS; L08.9 - LOCAL INFECTION OF THE SKIN AND SUBCUTANEOUS TISSUE, UNSP SNOMED Code(s): 999191629 (5) Diabetic ulcer of right foot associated with diabetes mellitus due to underlying condition, with necrosis of bone Current Visit: Yes Status: Acute Code(s): E08.621 - DIABETES MELLITUS DUE TO UNDERLYING CONDITION W FOOT ULCER; L97.514 - NON-PRS CHRONIC ULCER OTH PRT RIGHT FOOT W NECROSIS OF BONE SNOMED Code(s): 277655628 Plan: 1patient presented to hospital with extensive right heel diabetic foot infection concern for underlying osteomyelitis and has significant foul-smelling drainage we will need to cover for the polymicrobial ceferino usually associated diabetic foot infection 2patient also evidence of stage IV sacral pressure ulcer concerning for underlying osteomyelitis on the basis of plain x-rays, Patient Is status post surgical debridement with a wound extending down to the bone no OR culture, cultures done on the floor currently growing gram-negative bacilli. 3patient with positive blood culture with coagulase-negative staph likely skin contamination repeat blood culture 05/25/2023 has been negative we will discontinue vancomycin 3sacral wound culture growing Proteus Mirabella that is a sensitive pathogen we will discontinue Zosyn and start the patient on Unasyn he will need a PICC line and 6-week course of IV Unasyn on discharge Dictation was produced using [employer] software. please excuse any grammatical, word or spelling errors.
[2023-05-30 17:12] LABS: Glucose,Whole Blood 234 mg/dL (70-110)
[2023-05-30] MEDS: AMPICILLIN-SULBACTAM 3 GM in SODIUM CHLORIDE 0.9% 100 ML IVPB SCH ×2 (17:33→23:44)
--- NOTE | 2023-05-30 18:53 | P.PN ---
Progress Note - Text Progress Note Date: 05/30/23 Chief Complaint: Worsening wounds This is a 62-year-old patient, follows with Dr. Mendez. Chronic stable medical conditions include ADHD, herniated disc lower back, smoker. Sacral wounds. Left AKA Patient has lost his insurance for about 4-6 weeks. Was unable to follow for wound care. Had been following with [facility]. He has a sacral decubitus. Also wart on the right foot healed. Patient does continue to vaping and occasional cigarettes. Has increasing pain in the lower back in the sacral area and the right heel. Appetite is fair. No fever no chills. 05/25/2023: Laying in bed. Pain as before. Scheduled for surgery tomorrow. IV Unasyn and IV vancomycin. 05/26/2023: Patient today underwent wound excision of the sacrum by Dr. Marshall and right above-knee amputation by Dr. Zee. Some pain is present. In bed. 05/27/2023: Overall feels a bit better. Some pain in the amputation stump. Tolerating diet. On IV Unasyn. IV vancomycin. 05/28/2023: Fairly good. Some pain present. No new other symptoms. On IV antibiotics. 05/29/2023: Some pain present. Tolerating diet. Continued IV antibodies. Wound dressing per vascular. 05/30/2023: Eating well. In bed. Looking for probable discharge to rehab tomorrow. Discussed with patient. For a sacral wound but ID patient related a PICC line in 6 weeks of IV Unasyn. For sacral osteomyelitis. Active Medications Acetaminophen (Acetaminophen Tab 325 Mg Tab) 650 mg PO Q6HR PRN PRN Reason: Mild Pain or Fever > 100.5 Hydrocodone Bitart/Acetaminophen (Hydrocodone/Apap 10-325mg 1 Each Tab) 1 each PO QID PRN PRN Reason: Pain Last Admin: 05/30/23 15:14 Dose: 1 each Alprazolam (Alprazolam 0.25 Mg Tab) 0.25 mg PO Q6HR PRN PRN Reason: Anxiety Last Admin: 05/29/23 01:10 Dose: 0.25 mg Amiodarone HCl (Amiodarone 200 Mg Tab) 200 mg PO DAILY [facility] Last Admin: 05/30/23 08:47 Dose: 200 mg Ascorbic Acid (Ascorbic Acid 500 Mg Tab) 1,000 mg PO DAILY [facility] Last Admin: 05/30/23 08:48 Dose: 1,000 mg Calcium Carbonate/Glycine (Calcium Carbonate 500 Mg Chewable) 1,000 mg PO Q4HR PRN PRN Reason: Dyspepsia Dextrose/Water (Dextrose 50% Syringe 50 Ml) 25 ml IVP PER PROTOCOL PRN; Protocol PRN Reason: Hypoglycemia Dextrose/Water (Dextrose 50% Syringe 50 Ml) 50 ml IVP PER PROTOCOL PRN; Protocol PRN Reason: Hypoglycemia Dextrose/Water (Dextrose 50% Syringe 50 Ml) 25 ml IVP PER PROTOCOL PRN; Protocol PRN Reason: Hypoglycemia Dextrose/Water (Dextrose 50% Syringe 50 Ml) 50 ml IVP PER PROTOCOL PRN; Protocol PRN Reason: Hypoglycemia Enoxaparin Sodium (Enoxaparin 40 Mg/0.4 Ml Syringe) 40 mg SQ DAILY [facility] Last Admin: 05/30/23 08:48 Dose: 40 mg Ergocalciferol (Ergocalciferol 1,250 Mcg (50,000 Iu) Capsule) 1,250 mcg PO MO [facility] Last Admin: 05/30/23 08:47 Dose: 1,250 mcg Folic Acid (Folic Acid 1 Mg Tab) 1 mg PO DAILY [facility] Last Admin: 05/30/23 08:47 Dose: 1 mg Gabapentin (Gabapentin 300 Mg Cap) 300 mg PO TID [facility] Last Admin: 05/30/23 15:14 Dose: 300 mg Hydromorphone HCl (Hydromorphone 0.5 Mg/0.5 Ml Syringe) 0.5 mg IVP Q2HR PRN PRN Reason: Breakthrough Pain Last Admin: 05/30/23 17:34 Dose: 0.5 mg Sodium Chloride (Saline 0.9%) 1,000 mls @ 75 mls/hr IV .[id number] [facility] Last Admin: 05/30/23 06:17 Dose: 75 mls/hr Ampicillin Sodium/Sulbactam (Sodium 3 gm/ Sodium Chloride) 100 mls @ 200 mls/hr IVPB Q6HR [facility]; Protocol Last Admin: 05/30/23 17:33 Dose: 200 mls/hr Insulin Aspart (Insulin Aspart (Novolog) 100 Unit/Ml Vial) 0 unit SQ ACHS [facility]; Protocol Last Admin: 05/30/23 17:33 Dose: 2 unit Insulin Detemir (Insulin Detemir (Levemir) 100 Unit/Ml Syr) 10 unit SQ HS [facility] Last Admin: 05/29/23 20:47 Dose: 10 unit Lactulose (Lactulose 20 Gm/30 Ml Cup) 20 gm PO DAILY PRN PRN Reason: Constipation Melatonin (Melatonin 5 Mg Tablet) 5 mg PO HS [facility] Last Admin: 05/29/23 20:48 Dose: Not Given Methocarbamol (Methocarbamol 500 Mg Tab) 500 mg PO QID PRN PRN Reason: Pain Metoprolol Tartrate (Metoprolol Tartrate 12.5 Mg Tab) 12.5 mg PO BID [facility] Last Admin: 05/30/23 08:47 Dose: 12.5 mg Naloxone HCl (Naloxone 0.4 Mg/Ml 1 Ml Vial) 0.2 mg IV Q2M PRN PRN Reason: Opioid Reversal Nicotine (Nicotine 21mg/24hr Patch) 1 patch TRANSDERM DAILY [facility] Last Admin: 05/30/23 08:47 Dose: 1 patch Ondansetron HCl (Ondansetron 4 Mg/2 Ml Vial) 4 mg IVP Q8HR PRN PRN Reason: Nausea And Vomiting Temazepam (Temazepam 15 Mg Cap) 15 mg PO HS PRN PRN Reason: Insomnia Last Admin: 05/28/23 21:07 Dose: 15 mg Past medical history to include: Diabetes, possible ADHD, chronic low back pain, herniated disc, atrial fibrillation. COPD. left above-knee amputation Social history: Son lives with the patient. 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 Smokes about a pack a day, now down to a few cigarettes a day. Alcohol occasionally. Physical examination: VITAL SIGNS: 98.6, 69, 17, 1 22 x 70, 95% room air GENERAL: Laying in bed EYES: Pupils equal. Conjunctiva normal. HEENT: External appearance of nose and ears normal, oral cavity grossly normal. NECK: JVD not raised; masses not palpable. HEART: First and second heart sounds are normal; no edema. LUNGS: Respiratory rate normal; decreased breath sounds. ABDOMEN: Soft, nontender, liver spleen not palpable, no masses palpable. PSYCH: [Alert and oriented x3; mood and affect tired l. MUSCULOSKELETAL: Left AKA. Right above-knee amputation with a dressing in place. Sacral wound. INVESTIGATIONS, reviewed in the clinical context: 05/30/2023: White count 7.4 hemoglobin 8 potassium 4.1 creatinine 0.4 05/28/2023: White count 19 hemoglobin 8.2 potassium 3.5 05/26/2023: White count 9.1 hemoglobin 9.2 potassium 4 creatinine 0.27 05/25/2023: White count 8.6 and Lopid 9.8 platelets 250 potassium 3.3 creatinine 0.33 05/24/2023: White count 10.4 hemoglobin 8.7 weight 07/02/2005 sodium 135 potassium 3.4 BUN 5.6 creatinine 0.4 HbA1c 11.5 Ultrasound arterial lower extremity moderate right PAD with ankle brachial indices Sacral and coccygeal x-ray: Deep decubitus ulcer with interval osseous destruction of the distal coccygeal segments. Right foot x-ray severe osteopenia. Chest x-ray film personally reviewed by me-hyperinflation EKG tracing personally reviewed by me-normal sinus rhythm Assessment and plan: -Right lower extremity nonhealing wound infection sepsis, POA Right above-knee amputation by Dr. Zee on May 26. Cultures grew multiple organisms. Pain control. Wound dressings -Sacral decubitus ulcer. With acute osteomyelitis. Debrided by Dr. Marshall on May 26. Cultures positive for Proteus mirabilis. 4 IV Unasyn for 6 weeks upon discharge per ID. -Left AKA -Paroxysmal atrial fibrillation: sinus rhythm Amiodarone. Lopressor. -Acute postprocedure blood loss anemia expected from surgery IV Ferrlecit-2 doses -Diabetes mellitus type 2, chronically on insulin Follow Accu-Cheks. -COPD in a current smoker Bronchodilators as needed -Chronic nicotine dependence, cigarette smoker Nicotine patch -Chronic medical debility. Non-ambulatory -Full code For PICC line placement for IV Unasyn on discharge. Past Medical History Past Medical History: Diabetes Mellitus Additional Past Medical History / Comment(s): pressure ulcers[Buttock,simone heals ,rt lateral foot] History of Any Multi-Drug Resistant Organisms: None Reported Past Surgical History: Orthopedic Surgery Additional Past Surgical History / Comment(s): back pain son states pt recently "slipped a disc" taking gabapentin. Left leg above the knee amputation, Past Psychological History: No Psychological Hx Reported Smoking Status: Current every day smoker Past Alcohol Use History: Rare Past Drug Use History: None Reported
[2023-05-30] MEDS: MELATONIN 5 MG TABLET PO SCH (20:15)
[2023-05-30 20:21] LABS: Glucose,Whole Blood 214 mg/dL (70-110)
[2023-05-30] MEDS: glipiZIDE 5 MG TAB PO SCH (21:27)
[2023-05-31] MEDS: HYDROmorphone 0.5 MG/0.5 ML SYRINGE IVP PRN ×8 (01:06→23:44)
[2023-05-31] MEDS: methocarbamoL 500 MG TAB PO PRN ×3 (01:06→21:07)
[2023-05-31] MEDS: ALPRAZolam 0.25 MG TAB PO PRN ×3 (01:09→23:44)
[2023-05-31 01:56] LABS: Glucose,Whole Blood 223 mg/dL (70-110)
[2023-05-31] MEDS: AMPICILLIN-SULBACTAM 3 GM in SODIUM CHLORIDE 0.9% 100 ML IVPB SCH ×4 (05:13→23:44)
[2023-05-31 07:10] LABS: Glucose,Whole Blood 187 mg/dL (70-110)
[2023-05-31] MEDS: INSULIN ASPART (NovoLOG) 100 UNIT/ML VIAL SQ SCH ×4 (08:44→21:07)
[2023-05-31] MEDS: ENOXAPARIN 40 MG/0.4 ML SYRINGE SQ SCH (08:44)
[2023-05-31] MEDS: FOLIC ACID 1 MG TAB PO SCH (08:45)
[2023-05-31] MEDS: glipiZIDE 5 MG TAB PO SCH (08:45)
[2023-05-31] MEDS: ASCORBIC ACID 500 MG TAB PO SCH (08:45)
[2023-05-31] MEDS: GABAPENTIN 300 MG CAP PO SCH ×3 (08:45→21:07)
[2023-05-31] MEDS: HYDROcodone/APAP 10-325MG 1 EACH TAB PO PRN ×3 (08:45→21:07)
[2023-05-31] MEDS: NICOTINE 21MG/24HR PATCH TRANSDERM SCH (08:45)
[2023-05-31] MEDS: AMIODARONE 200 MG TAB PO SCH (08:45)
[2023-05-31] MEDS: METOPROLOL TARTRATE 12.5 MG TAB PO SCH ×2 (08:45→21:08)
[2023-05-31 11:33] LABS: Glucose,Whole Blood 123 mg/dL (70-110)
[2023-05-31] MEDS: SODIUM CHLORIDE 0.9% 1,000 ML IV SCH ×2 (13:56→23:45)
--- NOTE | 2023-05-31 14:30 | P.PN ---
Subjective Progress Note Date: 05/31/23 Principal diagnosis: Reason for follow-up is infected sacral pressure ulcer right diabetic foot infection osteomyelitis and bacteremia Patient is a 63-year-old male with a past medical history significant for diabetes mellitus current everyday smoker patient did have a previous history of left [id number] amputation presenting to the ER for evaluation generalized weakness patient noticed to have a extensive wound to the sacral area as well as to the right heel and Achilles wound with necrotic changes and foul-smelling order, patient was admitted to hospital for further management.Patient is status post right [id number] amputation as well as excisional debridement of the sacral pressure ulcer down to the wound completed on 05/26/2023 unfortunately no cultures were done. On today's evaluation that is 05/31/2023, the patient remains to be afebrile the patient is breathing comfortably on room air, the patient denies any chest pain shortness of breath denies any cough or sputum production, but denies having any nausea no vomiting no abdominal pain still complaining of lower body pain and wants more pain medication Patient white count is 7.41, creatinine 0.4 Objective - Vital Signs Vital signs: Vital Signs Temp 98.2 F 05/31/23 11:28 Pulse 69 05/31/23 11:28 Resp 16 05/31/23 11:28 BP 123/72 05/31/23 11:28 Pulse Ox 97 05/31/23 11:28 FiO2 Intake & Output 05/30/23 05/31/23 05/31/23 18:59 06:59 18:59 Intake Total 1320 240 Output Total 2100 1200 1600 Balance -780 -960 -1600 Intake: Oral 1320 240 Output: Urine 2100 1200 1600 Uretheral (Zee) 2100 Other: Voiding Method Indwelling Catheter Indwelling Catheter # Bowel Movements 1 - Exam GENERAL DESCRIPTION: Middle-age male lying in bed in no distress RESPIRATORY SYSTEM: Unlabored breathing , decreased breath sounds at bases HEART: S1 S2 regular rate and rhythm , ABDOMEN: Soft , no tenderness EXTREMITIES: Patient right AKA stump is covered no drainage on the dressing - Labs CBC & Chem 7: 05/30/23 06:08 05/30/23 06:08 Labs: Abnormal Lab Results - Last 24 Hours (Table) 05/30/23 05/30/23 05/31/23 Range/Units 17:08 20:20 01:54 POC Glucose (mg/dL) 234 H 214 H 223 H (70-110) mg/dL 05/31/23 05/31/23 Range/Units 07:09 11:32 POC Glucose (mg/dL) 187 H 123 H (70-110) mg/dL Microbiology - Last 24 Hours (Table) 05/27/23 12:45 Anaerobic Culture - Preliminary Other - Other 05/25/23 06:40 Blood Culture - Final Blood 05/27/23 12:45 Gram Stain - Final Other - Other Wound Culture - Final Proteus mirabilis Assessment and Plan (1) Ulcer of sacral region, stage 4 Current Visit: Yes Status: Acute Code(s): L98.429 - NON-PRESSURE CHRONIC ULCER OF BACK WITH UNSPECIFIED SEVERITY SNOMED Code(s): 56373144 (2) Sacral osteomyelitis Current Visit: Yes Status: Acute Code(s): M46.28 - OSTEOMYELITIS OF VERTEBRA, SACRAL AND SACROCOCCYGEAL REGION SNOMED Code(s): 029072396 (3) Bacteremia Current Visit: Yes Status: Acute Code(s): R78.81 - BACTEREMIA SNOMED Code(s): 0338377 (4) Diabetic foot infection Current Visit: Yes Status: Acute Code(s): E11.628 - TYPE 2 DIABETES MELLITUS WITH OTHER SKIN COMPLICATIONS; L08.9 - LOCAL INFECTION OF THE SKIN AND SUBCUTANEOUS TISSUE, UNSP SNOMED Code(s): 401040672 (5) Diabetic ulcer of right foot associated with diabetes mellitus due to underlying condition, with necrosis of bone Current Visit: Yes Status: Acute Code(s): E08.621 - DIABETES MELLITUS DUE TO UNDERLYING CONDITION W FOOT ULCER; L97.514 - NON-PRS CHRONIC ULCER OTH PRT RIGHT FOOT W NECROSIS OF BONE SNOMED Code(s): 074552793 Plan: 1patient presented to hospital with extensive right heel diabetic foot infection concern for underlying osteomyelitis and has significant foul-smelling drainage we will need to cover for the polymicrobial ceferino usually associated diabetic foot infection 2patient also evidence of stage IV sacral pressure ulcer concerning for underlying osteomyelitis on the basis of plain x-rays, Patient Is status post surgical debridement with a wound extending down to the bone no OR culture, cultures done on the floor currently growing gram-negative bacilli. 3patient with positive blood culture with coagulase-negative staph likely skin contamination repeat blood culture 05/25/2023 has been negative we will discontinue vancomycin 3sacral wound culture growing Proteus Mirabella that is a sensitive pathogen 4patient is currently waiting for PICC line placement we will continue with Unasyn 3 g every 6 hours for 6 weeks with weekly monitoring of CRP and sed rate and close outpatient follow-up local wound care with wet-to-dry dressing changes to the patient follow-up in the wound care center Dictation was produced using [employer] dictation software. please excuse any gra mmatical, word or spelling errors. Time with Patient: Less than 30
[2023-05-31] MEDS ORDERED: ZINC OXIDE PASTE (Z-GUARD) 1 APPLIC TOPICAL PRN (16:45)
[2023-05-31 17:18] LABS: Glucose,Whole Blood 135 mg/dL (70-110)
[2023-05-31] MEDS ORDERED: LIDOCAINE 1% INJ 10MG/ML (20 ML MDV) SQ ONE (17:40)
--- NOTE | 2023-05-31 17:57 | P.PCN ---
Date of Procedure: 05/31/23 Preoperative Diagnosis: Osteomyelitis Postoperative Diagnosis: Osteomyelitis Procedure(s) Performed: Left upper extremity ultrasound-guided basilic vein PICC line placement Anesthesia: local Surgeon: Mateo Allen Estimated Blood Loss (ml): 2 Pathology: none sent Condition: stable Disposition: floor Indications for Procedure: 63-year-old gentleman with history of sacral osteomyelitis as well as lower extremity infection presents to the [facility] for placement of a PICC line for continued antibiotics per ID. Description of Procedure: After written and informed consent was obtained the patient and all risks, benefits and competitions were described the patient was brought to the [facility] and laid in a supine position with his left arm outstretched on an armboard. The area of the left arm was prepped and draped in usual sterile fashion. Timeout was performed in normal fashion. Utilizing ultrasound the basilic vein was visualized and shown to be compressible without any visible thrombus. Under ultrasound guidance the basilic vein was then cannulated with a micropuncture needle and wire was placed under direct visualization of fluoroscopy. Introducer sheath was then placed. The catheter was measured and cut to the a ppropriate length which was 43 cm. The catheter was then guided through the breakaway sheath and the sheath was removed with good positioning was visualized under fluoroscopy. The catheter was pulled and flushed easily. It was then secured in place in normal fashion. Patient tolerated the procedure well was sent back to his room for recovery.
--- NOTE | 2023-05-31 19:42 | P.PN ---
Progress Note - Text Progress Note Date: 05/31/23 Chief Complaint: Worsening wounds This is a 62-year-old patient, follows with Dr. Mendez. Chronic stable medical conditions include ADHD, herniated disc lower back, smoker. Sacral wounds. Left AKA Patient has lost his insurance for about 4-6 weeks. Was unable to follow for wound care. Had been following with [facility]. He has a sacral decubitus. Also wart on the right foot healed. Patient does continue to vaping and occasional cigarettes. Has increasing pain in the lower back in the sacral area and the right heel. Appetite is fair. No fever no chills. 05/25/2023: Laying in bed. Pain as before. Scheduled for surgery tomorrow. IV Unasyn and IV vancomycin. 05/26/2023: Patient today underwent wound excision of the sacrum by Dr. Marshall and right above-knee amputation by Dr. Zee. Some pain is present. In bed. 05/27/2023: Overall feels a bit better. Some pain in the amputation stump. Tolerating diet. On IV Unasyn. IV vancomycin. 05/28/2023: Fairly good. Some pain present. No new other symptoms. On IV antibiotics. 05/29/2023: Some pain present. Tolerating diet. Continued IV antibodies. Wound dressing per vascular. 05/30/2023: Eating well. In bed. Looking for probable discharge to rehab tomorrow. Discussed with patient. For a sacral wound but ID patient related a PICC line in 6 weeks of IV Unasyn. For sacral osteomyelitis. 05/31/2023: Oral intake fair. Interventional radiology not available in the hospital. Requested Dr. Zee. Later this afternoon PICC line was placed by Dr. Allen. Spoke to casework manager-insurance is being sorted out. Hopefully discharge liquid tomorrow. Also communicated with the nurse and the patient. Total time spent today over 50 minutes with over 40 minutes of discussion. Active Medications Acetaminophen (Acetaminophen Tab 325 Mg Tab) 650 mg PO Q6HR PRN PRN Reason: Mild Pain or Fever > 100.5 Hydrocodone Bitart/Acetaminophen (Hydrocodone/Apap 10-325mg 1 Each Tab) 1 each PO QID PRN PRN Reason: Pain Last Admin: 05/31/23 15:01 Dose: 1 each Alprazolam (Alprazolam 0.25 Mg Tab) 0.25 mg PO Q6HR PRN PRN Reason: Anxiety Last Admin: 05/31/23 18:14 Dose: 0.25 mg Amiodarone HCl (Amiodarone 200 Mg Tab) 200 mg PO DAILY [facility] Last Admin: 05/31/23 08:45 Dose: 200 mg Ascorbic Acid (Ascorbic Acid 500 Mg Tab) 1,000 mg PO DAILY [facility] Last Admin: 05/31/23 08:45 Dose: 1,000 mg Calcium Carbonate/Glycine (Calcium Carbonate 500 Mg Chewable) 1,000 mg PO Q4HR PRN PRN Reason: Dyspepsia Dextrose/Water (Dextrose 50% Syringe 50 Ml) 25 ml IVP PER PROTOCOL PRN; Protocol PRN Reason: Hypoglycemia Dextrose/Water (Dextrose 50% Syringe 50 Ml) 50 ml IVP PER PROTOCOL PRN; Protocol PRN Reason: Hypoglycemia Dextrose/Water (Dextrose 50% Syringe 50 Ml) 25 ml IVP PER PROTOCOL PRN; Protocol PRN Reason: Hypoglycemia Dextrose/Water (Dextrose 50% Syringe 50 Ml) 50 ml IVP PER PROTOCOL PRN; Protocol PRN Reason: Hypoglycemia Enoxaparin Sodium (Enoxaparin 40 Mg/0.4 Ml Syringe) 40 mg SQ DAILY [facility] Last Admin: 05/31/23 08:44 Dose: 40 mg Ergocalciferol (Ergocalciferol 1,250 Mcg (50,000 Iu) Capsule) 1,250 mcg PO MO [facility] Last Admin: 05/30/23 08:47 Dose: 1,250 mcg Folic Acid (Folic Acid 1 Mg Tab) 1 mg PO DAILY [facility] Last Admin: 05/31/23 08:45 Dose: 1 mg Gabapentin (Gabapentin 300 Mg Cap) 300 mg PO TID [facility] Last Admin: 05/31/23 15:33 Dose: 300 mg Glipizide (Glipizide 5 Mg Tab) 5 mg PO AC-BRKFST [facility] Last Admin: 05/31/23 08:45 Dose: 5 mg Hydromorphone HCl (Hydromorphone 0.5 Mg/0.5 Ml Syringe) 0.5 mg IVP Q2HR PRN PRN Reason: Breakthrough Pain Last Admin: 05/31/23 18:22 Dose: 0.5 mg Sodium Chloride (Saline 0.9%) 1,000 mls @ 75 mls/hr IV .[id number] [facility] Last Admin: 05/31/23 13:56 Dose: Not Given Ampicillin Sodium/Sulbactam (Sodium 3 gm/ Sodium Chloride) 100 mls @ 200 mls/hr IVPB Q6HR [facility]; Protocol Last Admin: 05/31/23 18:14 Dose: 200 mls/hr Insulin Aspart (Insulin Aspart (Novolog) 100 Unit/Ml Vial) 0 unit SQ ACHS [facility]; Protocol Last Admin: 05/31/23 17:26 Dose: Not Given Lactulose (Lactulose 20 Gm/30 Ml Cup) 20 gm PO DAILY PRN PRN Reason: Constipation Melatonin (Melatonin 5 Mg Tablet) 5 mg PO HS [facility] Last Admin: 05/30/23 20:15 Dose: 5 mg Methocarbamol (Methocarbamol 500 Mg Tab) 500 mg PO QID PRN PRN Reason: Pain Last Admin: 05/31/23 15:00 Dose: 500 mg Metoprolol Tartrate (Metoprolol Tartrate 12.5 Mg Tab) 12.5 mg PO BID [facility] Last Admin: 05/31/23 08:45 Dose: 12.5 mg Naloxone HCl (Naloxone 0.4 Mg/Ml 1 Ml Vial) 0.2 mg IV Q2M PRN PRN Reason: Opioid Reversal Nicotine (Nicotine 21mg/24hr Patch) 1 patch TRANSDERM DAILY [facility] Last Admin: 05/31/23 08:45 Dose: 1 patch Ondansetron HCl (Ondansetron 4 Mg/2 Ml Vial) 4 mg IVP Q8HR PRN PRN Reason: Nausea And Vomiting Petrolatum (Zinc Oxide Paste (Z-Guard) 1 Applic Applic) 1 applic TOPICAL BID PRN PRN Reason: Wound Healing Temazepam (Temazepam 15 Mg Cap) 15 mg PO HS PRN PRN Reason: Insomnia Last Admin: 05/28/23 21:07 Dose: 15 mg Past medical history to include: Diabetes, possible ADHD, chronic low back pain, herniated disc, atrial f ibrillation. COPD. left above-knee amputation Social history: Son lives with the patient. 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 Smokes about a pack a day, now down to a few cigarettes a day. Alcohol occasionally. Physical examination: VITAL SIGNS: 98.2, 69, 16, 123.72, 97% room air GENERAL: Laying in bed EYES: Pupils equal. Conjunctiva normal. HEENT: External appearance of nose and ears normal, oral cavity grossly normal. NECK: JVD not raised; masses not palpable. HEART: First and second heart sounds are normal; no edema. LUNGS: Respiratory rate normal; decreased breath sounds. ABDOMEN: Soft, nontender, liver spleen not palpable, no masses palpable. PSYCH: [Alert and oriented x3; mood and affect tired l. MUSCULOSKELETAL: Left AKA. Right above-knee amputation with a dressing in roni ce. Sacral wound. INVESTIGATIONS, reviewed in the clinical context: 05/30/2023: White count 7.4 hemoglobin 8 potassium 4.1 creatinine 0.4 05/28/2023: White count 19 hemoglobin 8.2 potassium 3.5 05/26/2023: White count 9.1 hemoglobin 9.2 potassium 4 creatinine 0.27 05/25/2023: White count 8.6 and Lopid 9.8 platelets 250 potassium 3.3 creatinine 0.33 05/24/2023: White count 10.4 hemoglobin 8.7 weight 07/02/2005 sodium 135 potassium 3.4 BUN 5.6 creatinine 0.4 HbA1c 11.5 Ultrasound arterial lower extremity moderate right PAD with ankle brachial indices Sacral and coccygeal x-ray: Deep decubitus ulcer with interval osseous destruction of the distal coccygeal segments. Right foot x-ray severe osteopenia. Chest x-ray film personally reviewed by me-hyperinflation EKG tracing personally reviewed by me-normal sinus rhythm Assessment and plan: -Right lower extremity nonhealing wound infection sepsis, POA Right above-knee amputation by Dr. Zee on May 26. Cultures grew multiple organisms. Pain control. Wound dressings -Sacral decubitus ulcer. With acute osteomyelitis. Debrided by Dr. Marshall on May 26. Cultures positive for Proteus mirabilis. 4 IV Unasyn for 6 weeks upon discharge per ID. -Left AKA -Paroxysmal atrial fibrillation: sinus rhythm Amiodarone. Lopressor. -Acute postprocedure blood loss anemia expected from surgery IV Ferrlecit-2 doses -Diabetes mellitus type 2, chronically on insulin Follow Accu-Cheks. -COPD in a current smoker Bronchodilators as needed -Chronic nicotine dependence, cigarette smoker Nicotine patch -Chronic medical debility. Non-ambulatory -Full code PICC line was placed later today. Insurance is being sorted out. Looking at discharge tomorrow. Past Medical History Past Medical History: Diabetes Mellitus Additional Past Medical History / Comment(s): pressure ulcers[Buttock,simone heals ,rt lateral foot] History of Any Multi-Drug Resistant Organisms: None Reported Past Surgical History: Orthopedic Surgery Additional Past Surgical History / Comment(s): back pain son states pt recently "slipped a disc" taking gabapentin. Left leg above the knee amputation, Past Psychological History: No Psychological Hx Reported Smoking Status: Current every day smoker Past Alcohol Use History: Rare Past Drug Use History: None Reported
[2023-05-31 20:30] LABS: Glucose,Whole Blood 168 mg/dL (70-110)
[2023-05-31] MEDS: MELATONIN 5 MG TABLET PO SCH (21:07)
[2023-05-31] MEDS: TEMAZEPAM 15 MG CAP PO PRN (21:08)
[2023-06-01] MEDS: HYDROmorphone 0.5 MG/0.5 ML SYRINGE IVP PRN ×5 (02:34→20:35)
[2023-06-01] MEDS: HYDROcodone/APAP 10-325MG 1 EACH TAB PO PRN ×4 (02:34→23:29)
[2023-06-01] MEDS: AMPICILLIN-SULBACTAM 3 GM in SODIUM CHLORIDE 0.9% 100 ML IVPB SCH ×4 (05:18→23:29)
[2023-06-01 07:45] LABS: Glucose,Whole Blood 170 mg/dL (70-110)
[2023-06-01] MEDS: AMIODARONE 200 MG TAB PO SCH (08:34)
[2023-06-01] MEDS: METOPROLOL TARTRATE 12.5 MG TAB PO SCH ×2 (08:34→21:26)
[2023-06-01] MEDS: GABAPENTIN 300 MG CAP PO SCH ×3 (08:34→21:26)
[2023-06-01] MEDS: glipiZIDE 5 MG TAB PO SCH (08:34)
[2023-06-01] MEDS: FOLIC ACID 1 MG TAB PO SCH (08:34)
[2023-06-01] MEDS: ASCORBIC ACID 500 MG TAB PO SCH (08:34)
[2023-06-01] MEDS: NICOTINE 21MG/24HR PATCH TRANSDERM SCH (08:34)
[2023-06-01] MEDS: ENOXAPARIN 40 MG/0.4 ML SYRINGE SQ SCH (08:35)
[2023-06-01] MEDS: INSULIN ASPART (NovoLOG) 100 UNIT/ML VIAL SQ SCH ×4 (08:35→21:27)
--- NOTE | 2023-06-01 09:37 | P.PN ---
Subjective Progress Note Date: 06/01/23 Principal diagnosis: Infected right lower extremity diabetic wound Seen and examined today as a follow-up. He is postop day #6 for right ejqxh-nbu-snkx amputation. Yesterday he had a PICC line placed. Patient currently rates his pain 8 out of 10 states he has pain everywhere. Dressing was removed this morning. Surgical site well approximated. No bleeding or drainage. Patient's been afebrile. Objective - Vital Signs Vital signs: Vital Signs Temp 98 F 06/01/23 07:59 Pulse 75 06/01/23 07:59 Resp 17 06/01/23 07:59 BP 139/76 06/01/23 07:59 Pulse Ox 97 06/01/23 07:59 FiO2 Intake & Output 05/31/23 06/01/23 06/01/23 18:59 06:59 18:59 Intake Total 950 Output Total 2150 900 Balance -2150 50 Intake: Oral 950 Output: Urine 2150 900 Other: Voiding Method Indwelling Catheter Indwelling Catheter # Bowel Movements 1 1 - Exam General appearance: The patient is alert, oriented, appears in no acute distress. HET: Head is normocephalic and atraumatic. Neck: Supple. Abdomen: Soft, nondistended. Extremities: Previous Left nukbm-hij-liql amputation. Right ldvmw-nbl-ohcc amputation stump and surgical site well approximated with rosetta, surrounding tissue pink, dry. Neurological: No focal deficits. - Labs CBC & Chem 7: 05/30/23 06:08 05/30/23 06:08 Labs: Abnormal Lab Results - Last 24 Hours (Table) 05/31/23 05/31/23 05/31/23 Range/Units 11:32 17:16 20:28 POC Glucose (mg/dL) 123 H 135 H 168 H (70-110) mg/dL 06/01/23 Range/Units 07:21 POC Glucose (mg/dL) 170 H (70-110) mg/dL Assessment and Plan Assessment: 1. Infected right diabetic heel and Achilles wound status post right fyvyw-ugd-iwsf amputation 2. Peripheral arterial disease 3. Diabetes mellitus 4. Current tobacco use 5. Sacral wound 6. Bedridden, nonambulatory 7. History of left lower extremity diabetic wound status post left mqfvd-aeh-arbp amputation Plan: 1. Patient is post PICC line placement 2. Dressing changed with ABD and wrapped with John wrap 3. Prescription for stump cellophane wrapping examiner and rigid dressing given to case management 4. Consult comfort prosthetics or janessa for stump cellophane wrapping examiner and rigid dressing 5. Patient is cleared for discharge from vascular surgery Thank you for this consultation, we will sign off at this time. The impression and plan of care has been dictated as directed. Dr. Zee I performed a history and examination of this patient, discussed the same with the dictator. I agree with the dictator's note ,documented as a scribe. Any additional findings or plans will be noted.
[2023-06-01] MEDS: ALPRAZolam 0.25 MG TAB PO PRN ×2 (10:13→17:49)
--- NOTE | 2023-06-01 11:52 | P.PN ---
Subjective Progress Note Date: 06/01/23 Principal diagnosis: Reason for follow-up is infected sacral pressure ulcer right diabetic foot infection osteomyelitis and bacteremia Patient is a 63-year-old male with a past medical history significant for diabetes mellitus current everyday smoker patient did have a previous history of left ljcca-ofx-syso amputation presenting to the ER for evaluation generalized weakness patient noticed to have a extensive wound to the sacral area as well as to the right heel and Achilles wound with necrotic changes and foul-smelling order, patient was admitted to hospital for further management.Patient is status post right bmiar-drq-linj amputation as well as excisional debridement of the sacral pressure ulcer down to the wound completed on 05/26/2023 unfortunately no cultures were done. On today's evaluation that is 06/01/2022, the patient continues to be afebrile, the patient is breathing comfortably on room air, the patient denies any chest pain shortness of breath or cough no abdominal pain or any diarrhea, has been complaining of some pain to the sacral wound but denies any worsening No lab draw today, sacral wound culture finalized with Proteus that is sensitive to Unasyn Objective - Vital Signs Vital signs: Vital Signs Temp 98 F 06/01/23 07:59 Pulse 75 06/01/23 07:59 Resp 17 06/01/23 07:59 BP 139/76 06/01/23 07:59 Pulse Ox 97 06/01/23 07:59 FiO2 Intake & Output 05/31/23 06/01/23 06/01/23 18:59 06:59 18:59 Intake Total 950 Output Total 2150 900 Balance -2150 50 Intake: Oral 950 Output: Urine 2150 900 Other: Voiding Method Indwelling Catheter Indwelling Catheter Indwelling Catheter # Bowel Movements 1 1 - Exam GENERAL DESCRIPTION: Middle-age male lying in bed in no distress RESPIRATORY SYSTEM: Unlabored breathing , decreased breath sounds at bases HEART: S1 S2 regular rate and rhythm , ABDOMEN: Soft , no tenderness EXTREMITIES: Patient right AKA stump is covered no drainage on the dressing - Labs CBC & Chem 7: 05/30/23 06:08 05/30/23 06:08 Labs: Abnormal Lab Results - Last 24 Hours (Table) 05/31/23 05/31/23 06/01/23 Range/Units 17:16 20:28 07:21 POC Glucose (mg/dL) 135 H 168 H 170 H (70-110) mg/dL Microbiology - Last 24 Hours (Table) 05/27/23 12:45 Anaerobic Culture - Final Other - Other Assessment and Plan (1) Ulcer of sacral region, stage 4 Current Visit: Yes Status: Acute Code(s): L98.429 - NON-PRESSURE CHRONIC ULCER OF BACK WITH UNSPECIFIED SEVERITY SNOMED Code(s): 74540479 (2) Sacral osteomyelitis Current Visit: Yes Status: Acute Code(s): M46.28 - OSTEOMYELITIS OF VERTEBRA, SACRAL AND SACROCOCCYGEAL REGION SNOMED Code(s): 763132430 (3) Bacteremia Current Visit: Yes Status: Acute Code(s): R78.81 - BACTEREMIA SNOMED Code(s): 3018540 (4) Diabetic foot infection Current Visit: Yes Status: Acute Code(s): E11.628 - TYPE 2 DIABETES MELLITUS WITH OTHER SKIN COMPLICATIONS; L08.9 - LOCAL INFECTION OF THE SKIN AND SUBCUTANEOUS TISSUE, UNSP SNOMED Code(s): 699927908 (5) Diabetic ulcer of right foot associated with diabetes mellitus due to underlying condition, with necrosis of bone Current Visit: Yes Status: Acute Code(s): E08.621 - DIABETES MELLITUS DUE TO UNDERLYING CONDITION W FOOT ULCER; L97.514 - NON-PRS CHRONIC ULCER OTH PRT RIGHT FOOT W NECROSIS OF BONE SNOMED Code(s): 184919150 Plan: 1patient presented to hospital with extensive right heel diabetic foot infection concern for underlying osteomyelitis and has significant foul-smelling drainage we will need to cover for the polymicrobial ceferino usually associated diabetic foot infection 2patient also evidence of stage IV sacral pressure ulcer concerning for underlying osteomyelitis on the basis of plain x-rays, Patient Is status post surgical debridement with a wound extending down to the bone no OR culture, cultures done on the floor currently growing gram-negative bacilli. 3patient with positive blood culture with coagulase-negative staph likely skin contamination repeat blood culture 05/25/2023 has been negative we will discontinue vancomycin 3sacral wound culture growing Proteus Mirabella that is a sensitive pathogen 4PICC line has been placed plan is to continue with Unasyn 3 g every 6 hours with weekly monitoring of his inflammatory markers local wound care per the wound care team and close outpatient follow-up Dictation was produced using dragon dictation software. please excuse any grammatical, word or spelling errors. Time with Patient: Less than 30
[2023-06-01 13:03] LABS: Glucose,Whole Blood 123 mg/dL (70-110)
--- NOTE | 2023-06-01 13:56 | P.CON ---
Consult Note - . Consult date: 06/01/23 Assessment/Plan:: Wound care reconsultation. Reason for consultation: Sacral decubitus status post debridement Recent history of chief complaint: The patient had a large stage IV sacral decubitus. Dr. Marshall undertook a surgical debridement. However, there have been difficulties with dressing changes secondary to proximity to the anal opening. There is also significant difficulty with compliance. Nursing staff have been unable to get the patient to maintain and offloading status of his sacral area. Physical examination: There is a lot of exudative film in the decubitus. It is about 10 cm in dimension and is the depth of the sacrum with some rough feeling bone palpable. The lower margin is also soiled with feces. Impression: Stage IV sacral decubitus with difficulties maintaining wound VAC and noncompliant patient. Prognosis for healing of this ulcer is very poor given these factors. Recommendation: I feel that the only way to obtain a significant chance for healing would be to give the patient a colostomy and facilitate a wound VAC. Even with colostomy the prognosis is guarded.
[2023-06-01] MEDS: SODIUM CHLORIDE 0.9% 1,000 ML IV SCH (15:58)
[2023-06-01] MEDS: methocarbamoL 500 MG TAB PO PRN (16:26)
[2023-06-01 16:54] LABS: Glucose,Whole Blood 105 mg/dL (70-110)
--- NOTE | 2023-06-01 18:24 | P.PN ---
Progress Note - Text Progress Note Date: 06/01/23 Chief Complaint: Worsening wounds This is a 62-year-old patient, follows with Dr. Mendez. Chronic stable medical conditions include ADHD, herniated disc lower back, smoker. Sacral wounds. Left AKA Patient has lost his insurance for about 4-6 weeks. Was unable to follow for wound care. Had been following with [facility]. He has a sacral decubitus. Also wart on the right foot healed. Patient does continue to vaping and occasional cigarettes. Has increasing pain in the lower back in the sacral area and the right heel. Appetite is fair. No fever no chills. 05/25/2023: Laying in bed. Pain as before. Scheduled for surgery tomorrow. IV Unasyn and IV vancomycin. 05/26/2023: Patient today underwent wound excision of the sacrum by Dr. Marshall and right above-knee amputation by Dr. Zee. Some pain is present. In bed. 05/27/2023: Overall feels a bit better. Some pain in the amputation stump. Tolerating diet. On IV Unasyn. IV vancomycin. 05/28/2023: Fairly good. Some pain present. No new other symptoms. On IV antibiotics. 05/29/2023: Some pain present. Tolerating diet. Continued IV antibodies. Wound dressing per vascular. 05/30/2023: Eating well. In bed. Looking for probable discharge to rehab tomorrow. Discussed with patient. For a sacral wound but ID patient related a PICC line in 6 weeks of IV Unasyn. For sacral osteomyelitis. 05/31/2023: Oral intake fair. Interventional radiology not available in the hospital. Requested Dr. Zee. Later this afternoon PICC line was placed by Dr. Allen. Spoke to director of casework department-insurance is being sorted out. Hopefully discharge liquid tomorrow. Also communicated with the nurse and the patient. Total time spent today over 50 minutes with over 40 minutes of discussion. 06/01/2023: Spoke to the director of casework department [place]. Insurance issues are being sorted out. Patient seen by Dr. doan for wound care center. Recommending diverting colostomy. Dr. Marshall is being covered by Dr. Pabon. Will refer the matter to him. No other new issues. Active Medications Acetaminophen (Acetaminophen Tab 325 Mg Tab) 650 mg PO Q6HR PRN PRN Reason: Mild Pain or Fever > 100.5 Hydrocodone Bitart/Acetaminophen (Hydrocodone/Apap 10-325mg 1 Each Tab) 1 each PO QID PRN PRN Reason: Pain Last Admin: 06/01/23 16:26 Dose: 1 each Alprazolam (Alprazolam 0.25 Mg Tab) 0.25 mg PO Q6HR PRN PRN Reason: Anxiety Last Admin: 06/01/23 17:49 Dose: 0.25 mg Amiodarone HCl (Amiodarone 200 Mg Tab) 200 mg PO DAILY [facility] Last Admin: 06/01/23 08:34 Dose: 200 mg Ascorbic Acid (Ascorbic Acid 500 Mg Tab) 1,000 mg PO DAILY [facility] Last Admin: 06/01/23 08:34 Dose: 1,000 mg Calcium Carbonate/Glycine (Calcium Carbonate 500 Mg Chewable) 1,000 mg PO Q4HR PRN PRN Reason: Dyspepsia Dextrose/Water (Dextrose 50% Syringe 50 Ml) 25 ml IVP PER PROTOCOL PRN; Protocol PRN Reason: Hypoglycemia Dextrose/Water (Dextrose 50% Syringe 50 Ml) 50 ml IVP PER PROTOCOL PRN; Protocol PRN Reason: Hypoglycemia Dextrose/Water (Dextrose 50% Syringe 50 Ml) 25 ml IVP PER PROTOCOL PRN; Protocol PRN Reason: Hypoglycemia Dextrose/Water (Dextrose 50% Syringe 50 Ml) 50 ml IVP PER PROTOCOL PRN; Protocol PRN Reason: Hypoglycemia Enoxaparin Sodium (Enoxaparin 40 Mg/0.4 Ml Syringe) 40 mg SQ DAILY [facility] Last Admin: 06/01/23 08:35 Dose: 40 mg Ergocalciferol (Ergocalciferol 1,250 Mcg (50,000 Iu) Capsule) 1,250 mcg PO MO [facility] Last Admin: 05/30/23 08:47 Dose: 1,250 mcg Folic Acid (Folic Acid 1 Mg Tab) 1 mg PO DAILY [facility] Last Admin: 06/01/23 08:34 Dose: 1 mg Gabapentin (Gabapentin 300 Mg Cap) 300 mg PO TID [facility] Last Admin: 06/01/23 16:26 Dose: 300 mg Glipizide (Glipizide 5 Mg Tab) 5 mg PO AC-BRKFST [facility] Last Admin: 06/01/23 08:34 Dose: 5 mg Hydromorphone HCl (Hydromorphone 0.5 Mg/0.5 Ml Syringe) 0.5 mg IVP Q2HR PRN PRN Reason: Breakthrough Pain Last Admin: 06/01/23 17:47 Dose: 0.5 mg Sodium Chloride (Saline 0.9%) 1,000 mls @ 75 mls/hr IV .[id number] [facility] Last Admin: 06/01/23 15:58 Dose: Not Given Ampicillin Sodium/Sulbactam (Sodium 3 gm/ Sodium Chloride) 100 mls @ 200 mls/hr IVPB Q6HR [facility]; Protocol Last Admin: 06/01/23 17:47 Dose: 200 mls/hr Insulin Aspart (Insulin Aspart (Novolog) 100 Unit/Ml Vial) 0 unit SQ ACHS [facility]; Protocol Last Admin: 06/01/23 17:04 Dose: Not Given Lactulose (Lactulose 20 Gm/30 Ml Cup) 20 gm PO DAILY PRN PRN Reason: Constipation Melatonin (Melatonin 5 Mg Tablet) 5 mg PO HS [facility] Last Admin: 05/31/23 21:07 Dose: 5 mg Methocarbamol (Methocarbamol 500 Mg Tab) 500 mg PO QID PRN PRN Reason: Pain Last Admin: 06/01/23 16:26 Dose: 500 mg Metoprolol Tartrate (Metoprolol Tartrate 12.5 Mg Tab) 12.5 mg PO BID [facility] Last Admin: 06/01/23 08:34 Dose: 12.5 mg Naloxone HCl (Naloxone 0.4 Mg/Ml 1 Ml Vial) 0.2 mg IV Q2M PRN PRN Reason: Opioid Reversal Nicotine (Nicotine 21mg/24hr Patch) 1 patch TRANSDERM DAILY [facility] Last Admin: 06/01/23 08:34 Dose: 1 patch Ondansetron HCl (Ondansetron 4 Mg/2 Ml Vial) 4 mg IVP Q8HR PRN PRN Reason: Nausea And Vomiting Petrolatum (Zinc Oxide Paste (Z-Guard) 1 Applic Applic) 1 applic TOPICAL BID PRN PRN Reason: Wound Healing Last Admin: 06/01/23 02:52 Dose: 1 applic Temazepam (Temazepam 15 Mg Cap) 15 mg PO HS PRN PRN Reason: Insomnia Last Admin: 05/31/23 21:08 Dose: 15 mg Past medical history to include: Diabetes, possible ADHD, chronic low back pain, herniated disc, atrial fibrillation. COPD. left above-knee amputation Social history: Son lives with the patient. 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 Smokes about a pack a day, now down to a few cigarettes a day. Alcohol occasionally. Physical examination: VITAL SIGNS: 98.3, 69, 19, 131/72, 95% room air GENERAL: Laying in bed EYES: Pupils equal. Conjunctiva normal. HEENT: External appearance of nose and ears normal, oral cavity grossly normal. NECK: JVD not raised; masses not palpable. HEART: First and second heart sounds are normal; no edema. LUNGS: Respiratory rate normal; decreased breath sounds. ABDOMEN: Soft, nontender, liver spleen not palpable, no masses palpable. PSYCH: [Alert and oriented x3; mood and affect tired l. MUSCULOSKELETAL: Left AKA. Right above-knee amputation with a dressing in place. Sacral wound. INVESTIGATIONS, reviewed in the clinical context: 05/30/2023: White count 7.4 hemoglobin 8 potassium 4.1 creatinine 0.4 05/28/2023: White count 19 hemoglobin 8.2 potassium 3.5 05/26/2023: White count 9.1 hemoglobin 9.2 potassium 4 creatinine 0.27 05/25/2023: White count 8.6 and Lopid 9.8 platelets 250 potassium 3.3 creatinine 0.33 05/24/2023: White count 10.4 hemoglobin 8.7 weight 07/02/2005 sodium 135 potassium 3.4 BUN 5.6 creatinine 0.4 HbA1c 11.5 Ultrasound arterial lower extremity moderate right PAD with ankle brachial indices Sacral and coccygeal x-ray: Deep decubitus ulcer with interval osseous destruction of the distal coccygeal segments. Right foot x-ray severe osteopenia. Chest x-ray film personally reviewed by me-hyperinflation EKG tracing personally reviewed by me-normal sinus rhythm Assessment and plan: -Right lower extremity nonhealing wound infection sepsis, POA Right above-knee amputation by Dr. Zee on May 26. Cultures grew multiple organisms. Pain control. Wound dressings -Sacral decubitus ulcer. With acute osteomyelitis. Debrided by Dr. Marshall on May 26. Cultures positive for Proteus mirabilis. 4 IV Unasyn for 6 weeks upon discharge per ID. Dr. doan for wound care center suggesting diverting colostomy: Will refer to Gen. surgery for the same. -Left AKA -Paroxysmal atrial fibrillation: sinus rhythm Amiodarone. Lopressor. -Acute postprocedure blood loss anemia expected from surgery IV Ferrlecit-2 doses -Diabetes mellitus type 2, chronically on insulin Follow Accu-Cheks. -COPD in a current smoker Bronchodilators as needed -Chronic nicotine dependence, cigarette smoker Nicotine patch -Chronic medical debility. Non-ambulatory -Full code Insurance issues are being sorted out by the director of casework department. Past Medical History Past Medical History: Diabetes Mellitus Additional Past Medical History / Comment(s): pressure ulcers[Buttock,simone heals ,rt lateral foot] History of Any Multi-Drug Resistant Organisms: None Reported Past Surgical History: Orthopedic Surgery Additional Past Surgical History / Comment(s): back pain son states pt recently "slipped a disc" taking gabapentin. Left leg above the knee amputation, Past Psychological History: No Psychological Hx Reported Smoking Status: Current every day smoker Past Alcohol Use History: Rare Past Drug Use History: None Reported
[2023-06-01 20:22] LABS: Glucose,Whole Blood 211 mg/dL (70-110)
[2023-06-01] MEDS: MELATONIN 5 MG TABLET PO SCH (21:25)
[2023-06-01] MEDS: TEMAZEPAM 15 MG CAP PO PRN (21:27)
[2023-06-02] MEDS: HYDROmorphone 0.5 MG/0.5 ML SYRINGE IVP PRN ×7 (02:54→23:28)
[2023-06-02] MEDS: AMPICILLIN-SULBACTAM 3 GM in SODIUM CHLORIDE 0.9% 100 ML IVPB SCH ×4 (06:20→23:28)
[2023-06-02] MEDS: SODIUM CHLORIDE 0.9% 1,000 ML IV SCH ×3 (07:43→23:31)
[2023-06-02 07:55] LABS: Glucose,Whole Blood 149 mg/dL (70-110)
[2023-06-02] MEDS: INSULIN ASPART (NovoLOG) 100 UNIT/ML VIAL SQ SCH ×4 (07:57→21:06)
[2023-06-02] MEDS: ASCORBIC ACID 500 MG TAB PO SCH (08:32)
[2023-06-02] MEDS: ALPRAZolam 0.25 MG TAB PO PRN ×3 (08:32→21:06)
[2023-06-02] MEDS: glipiZIDE 5 MG TAB PO SCH (08:32)
[2023-06-02] MEDS: AMIODARONE 200 MG TAB PO SCH (08:32)
[2023-06-02] MEDS: NICOTINE 21MG/24HR PATCH TRANSDERM SCH (08:32)
[2023-06-02] MEDS: FOLIC ACID 1 MG TAB PO SCH (08:32)
[2023-06-02] MEDS: GABAPENTIN 300 MG CAP PO SCH ×3 (08:32→21:06)
[2023-06-02] MEDS: HYDROcodone/APAP 10-325MG 1 EACH TAB PO PRN ×3 (08:32→21:06)
[2023-06-02] MEDS: METOPROLOL TARTRATE 12.5 MG TAB PO SCH ×2 (08:32→21:06)
[2023-06-02] MEDS: ENOXAPARIN 40 MG/0.4 ML SYRINGE SQ SCH (08:32)
--- NOTE | 2023-06-02 11:01 | P.PN ---
Progress Note - Text Progress Note Date: 06/02/23 Chief Complaint: Worsening wounds This is a 62-year-old patient, follows with Dr. Mendez. Chronic stable medical conditions include ADHD, herniated disc lower back, smoker. Sacral wounds. Left AKA Patient has lost his insurance for about 4-6 weeks. Was unable to follow for wound care. Had been following with [facility]. He has a sacral decubitus. Also wart on the right foot healed. Patient does continue to vaping and occasional cigarettes. Has increasing pain in the lower back in the sacral area and the right heel. Appetite is fair. No fever no chills. 05/25/2023: Laying in bed. Pain as before. Scheduled for surgery tomorrow. IV Unasyn and IV vancomycin. 05/26/2023: Patient today underwent wound excision of the sacrum by Dr. Marshall and right above-knee amputation by Dr. Zee. Some pain is present. In bed. 05/27/2023: Overall feels a bit better. Some pain in the amputation stump. Tolerating diet. On IV Unasyn. IV vancomycin. 05/28/2023: Fairly good. Some pain present. No new other symptoms. On IV antibiotics. 05/29/2023: Some pain present. Tolerating diet. Continued IV antibodies. Wound dressing per vascular. 05/30/2023: Eating well. In bed. Looking for probable discharge to rehab tomorrow. Discussed with patient. For a sacral wound but ID patient related a PICC line in 6 weeks of IV Unasyn. For sacral osteomyelitis. 05/31/2023: Oral intake fair. Interventional radiology not available in the hospital. Requested Dr. Zee. Later this afternoon PICC line was placed by Dr. Allen. Spoke to rifle case repairer-insurance is being sorted out. Hopefully discharge liquid tomorrow. Also communicated with the nurse and the patient. Total time spent today over 50 minutes with over 40 minutes of discussion. 06/01/2023: Spoke to the rifle case repairer Vernon. Insurance issues are being sorted out. Patient seen by Dr. doan for wound care center. Recommending diverting colostomy. Dr. Marshall is being covered by Dr. Pabon. Will refer the matter to him. No other new issues. June 02: Vernon rifle case repairer informed be that patient has no insurance. In the meantime elevate input from Dr. Pabon regarding if he wants to go diverting colostomy. Other medications to continue. Active Medications Acetaminophen (Acetaminophen Tab 325 Mg Tab) 650 mg PO Q6HR PRN PRN Reason: Mild Pain or Fever > 100.5 Hydrocodone Bitart/Acetaminophen (Hydrocodone/Apap 10-325mg 1 Each Tab) 1 each PO QID PRN PRN Reason: Pain Last Admin: 06/02/23 08:32 Dose: 1 each Alprazolam (Alprazolam 0.25 Mg Tab) 0.25 mg PO Q6HR PRN PRN Reason: Anxiety Last Admin: 06/02/23 08:32 Dose: 0.25 mg Amiodarone HCl (Amiodarone 200 Mg Tab) 200 mg PO DAILY [facility] Last Admin: 06/02/23 08:32 Dose: 200 mg Ascorbic Acid (Ascorbic Acid 500 Mg Tab) 1,000 mg PO DAILY [facility] Last Admin: 06/02/23 08:32 Dose: 1,000 mg Calcium Carbonate/Glycine (Calcium Carbonate 500 Mg Chewable) 1,000 mg PO Q4HR PRN PRN Reason: Dyspepsia Dextrose/Water (Dextrose 50% Syringe 50 Ml) 25 ml IVP PER PROTOCOL PRN; Protocol PRN Reason: Hypoglycemia Dextrose/Water (Dextrose 50% Syringe 50 Ml) 50 ml IVP PER PROTOCOL PRN; Protocol PRN Reason: Hypoglycemia Dextrose/Water (Dextrose 50% Syringe 50 Ml) 25 ml IVP PER PROTOCOL PRN; Protoco l PRN Reason: Hypoglycemia Dextrose/Water (Dextrose 50% Syringe 50 Ml) 50 ml IVP PER PROTOCOL PRN; Protocol PRN Reason: Hypoglycemia Enoxaparin Sodium (Enoxaparin 40 Mg/0.4 Ml Syringe) 40 mg SQ DAILY [facility] Last Admin: 06/02/23 08:32 Dose: 40 mg Ergocalciferol (Ergocalciferol 1,250 Mcg (50,000 Iu) Capsule) 1,250 mcg PO MO [facility] Last Admin: 05/30/23 08:47 Dose: 1,250 mcg Folic Acid (Folic Acid 1 Mg Tab) 1 mg PO DAILY [facility] Last Admin: 06/02/23 08:32 Dose: 1 mg Gabapentin (Gabapentin 300 Mg Cap) 300 mg PO TID [facility] Last Admin: 06/02/23 08:32 Dose: 300 mg Glipizide (Glipizide 5 Mg Tab) 5 mg PO AC-BRKFST [facility] Last Admin: 06/02/23 08:32 Dose: 5 mg Hydromorphone HCl (Hydromorphone 0.5 Mg/0.5 Ml Syringe) 0.5 mg IVP Q2HR PRN PRN Reason: Breakthrough Pain Last Admin: 06/02/23 10:00 Dose: 0.5 mg Sodium Chloride (Saline 0.9%) 1,000 mls @ 75 mls/hr IV .[id number] [facility] Last Admin: 06/02/23 07:43 Dose: Not Given Ampicillin Sodium/Sulbactam (Sodium 3 gm/ Sodium Chloride) 100 mls @ 200 mls/hr IVPB Q6HR [facility]; Protocol Last Admin: 06/02/23 06:20 Dose: 200 mls/hr Insulin Aspart (Insulin Aspart (Novolog) 100 Unit/Ml Vial) 0 unit SQ ACHS [facility]; Protocol Last Admin: 06/02/23 07:57 Dose: Not Given Lactulose (Lactulose 20 Gm/30 Ml Cup) 20 gm PO DAILY PRN PRN Reason: Constipation Melatonin (Melatonin 5 Mg Tablet) 5 mg PO HS [facility] Last Admin: 06/01/23 21:25 Dose: Not Given Methocarbamol (Methocarbamol 500 Mg Tab) 500 mg PO QID PRN PRN Reason: Pain Last Admin: 06/01/23 16:26 Dose: 500 mg Metoprolol Tartrate (Metoprolol Tartrate 12.5 Mg Tab) 12.5 mg PO BID [facility] Last Admin: 06/02/23 08:32 Dose: 12.5 mg Naloxone HCl (Naloxone 0.4 Mg/Ml 1 Ml Vial) 0.2 mg IV Q2M PRN PRN Reason: Opioid Reversal Nicotine (Nicotine 21mg/24hr Patch) 1 patch TRANSDERM DAILY [facility] Last Admin: 06/02/23 08:32 Dose: 1 patch Ondansetron HCl (Ondansetron 4 Mg/2 Ml Vial) 4 mg IVP Q8HR PRN PRN Reason: Nausea And Vomiting Petrolatum (Zinc Oxide Paste (Z-Guard) 1 Applic Applic) 1 applic TOPICAL BID PRN PRN Reason: Wound Healing Last Admin: 06/01/23 02:52 Dose: 1 applic Temazepam (Temazepam 15 Mg Cap) 15 mg PO HS PRN PRN Reason: Insomnia Last Admin: 06/01/23 21:27 Dose: 15 mg Past medical history to include: Diabetes, possible ADHD, chronic low back pain, herniated disc, atrial fibrillation. COPD. left above-knee amputation Social history: Son lives with the patient. 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 Smokes about a pack a day, now down to a few cigarettes a day. Alcohol occasionally. Physical examination: VITAL SIGNS: 98.2, 72, 18, 134/72, 97% room air GENERAL: Laying in bed EYES: Pupils equal. Conjunctiva normal. HEENT: External appearance of nose and ears normal, oral cavity grossly normal. NECK: JVD not raised; masses not palpable. HEART: First and second heart sounds are normal; no edema. LUNGS: Respiratory rate normal; decreased breath sounds. ABDOMEN: Soft, nontender, liver spleen not palpable, no masses palpable. PSYCH: [Alert and oriented x3; mood and affect tired l. MUSCULOSKELETAL: Left AKA. Right above-knee amputation with a dressing in place. Sacral wound. INVESTIGATIONS, reviewed in the clinical context: 05/30/2023: White count 7.4 hemoglobin 8 potassium 4.1 creatinine 0.4 05/28/2023: White count 19 hemoglobin 8.2 potassium 3.5 05/26/2023: White count 9.1 hemoglobin 9.2 potassium 4 creatinine 0.27 05/25/2023: White count 8.6 and Lopid 9.8 platelets 250 potassium 3.3 creatinine 0.33 05/24/2023: White count 10.4 hemoglobin 8.7 weight 07/02/2005 sodium 135 potassium 3.4 BUN 5.6 creatinine 0.4 HbA1c 11.5 Ultrasound arterial lower extremity moderate right PAD with ankle brachial indices Sacral and coccygeal x-ray: Deep decubitus ulcer with interval osseous destruction of the distal coccygeal segments. Right foot x-ray severe osteopenia. Chest x-ray film personally reviewed by me-hyperinflation EKG tracing personally reviewed by me-normal sinus rhythm Assessment and plan: -Right lower extremity nonhealing wound infection sepsis, POA Right above-knee amputation by Dr. Zee on May 26. Cultures grew multiple organisms. Pain control. Wound dressings -Sacral decubitus ulcer. With acute osteomyelitis. Debrided by Dr. Marshall on May 26. Cultures positive for Proteus mirabilis. 4 IV Unasyn for 6 weeks upon discharge per ID. Dr. doan for wound care center suggesting diverting colostomy: Will refer to Gen. surgery for the same. -Left AKA -Paroxysmal atrial fibrillation: sinus rhythm Amiodarone. Lopressor. -Acute postprocedure blood loss anemia expected from surgery IV Ferrlecit-2 doses -Diabetes mellitus type 2, chronically on insulin Follow Accu-Cheks. -COPD in a current smoker Bronchodilators as needed -Chronic nicotine dependence, cigarette smoker Nicotine patch -Chronic medical debility. Non-ambulatory -Full code Await input from surgery regarding diverting colostomy. Other medications to continue. general manager farm informed me that they've applied for Medicaid. Past Medical History Past Medical History: Diabetes Mellitus Additional Past Medical History / Comment(s): pressure ulcers[Buttock,simone heals ,rt lateral foot] History of Any Multi-Drug Resistant Organisms: None Reported Past Surgical History: Orthopedic Surgery Additional Past Surgical History / Comment(s): back pain son states pt recently "slipped a disc" taking gabapentin. Left leg above the knee amputation, Past Psychological History: No Psychological Hx Reported Smoking Status: Current every day smoker Past Alcohol Use History: Rare Past Drug Use History: None Reported
--- NOTE | 2023-06-02 11:22 | P.GSCN ---
History of Present Illness Consult date: 06/02/23 History of present illness: CHIEF COMPLAINT: Sacral decubitus ulcer HISTORY OF PRESENT ILLNESS: This is a 63-year-old male with a large sacral decubitus ulcer. He did require debridement with Dr. Marshall on 05/26/2023. He also had a right qejfl-tmx-nxyi amputation for right lower extremity nonhealing wound with Dr. Zee during this admission. Patient does have a history of diabetes. He is on antibiotics and followed by infectious disease. His been diagnosed with status sacral osteomyelitis, bacteremia and diabetic ulcer on the right. Patient seen by wound care service. Nurses have having difficulties maintaining the wound VAC. Patient seen by wound care service. They're recommending surgical service to reevaluate patient for possible diverting colostomy to help with healing of the sacral decubitus ulcer. Patient is nonambulatory. PAST MEDICAL HISTORY: Diabetes, paroxysmal atrial fibrillation, COPD, chronic medical debility PAST SURGICAL HISTORY: Left above-knee amputation and right ixzdr-mig-fycm amputation MEDICATIONS: See below ALLERGIES: See below SOCIAL HISTORY: No illicit drug use. REVIEW OF SYSTEMS: CONSTITUTIONAL: Denies fever or chills. HEENT: Denies blurred vision, vision changes, or eye pain. Denies hemoptysis CARDIOVASCULAR: Denies chest pain or pressure. RESPIRATORY: No shortness of breath. GASTROINTESTINAL: See HPI for pertinent findings HEMATOLOGIC: Denies bleeding disorders. GENITOURINARY: Denies any blood in urine or increased urinary frequency. SKIN: Denies pruitis. Denies rash. PHYSICAL EXAM: VITAL SIGNS: Reviewed GENERAL: no acute distress. ABDOMEN: Soft. Nondistended. nontender NEUROLOGIC: Alert and oriented. Cranial nerves II through XII grossly intact. Skin: Sacral wound dressing clean and intact LABORATORY DATA: WBC 12.3 down to 7.41 HGB 8.0 Plt 396 Na 141 K 4.1 Cr 0.4 Glucose 149 IMAGING: ASSESSMENT: 1. Stage IV Sacral decubitus ulcer status post debridement 2. Right above-knee amputation of right lower extremity nonhealing wound with Dr. Zee 3. Bacteremia 4. Diabetes mellitus 5. Sacral osteomyelitis PLAN: -Plan for Diverting colostomy next 06/08/[address] Pabon -Continue local wound care -Continue antibiotics per ID service -Continue offloading Physician Grazing Examiner note has been reviewed by physician. Signing provider agrees with the documented findings, assessment, and plan of care. Past Medical History Past Medical History: Diabetes Mellitus Additional Past Medical History / Comment(s): pressure ulcers[Buttock,simone heals ,rt lateral foot] History of Any Multi-Drug Resistant Organisms: None Reported Past Surgical History: Orthopedic Surgery Additional Past Surgical History / Comment(s): back pain son states pt recently "slipped a disc" taking gabapentin. Left leg above the knee amputation, Past Anesthesia/Blood Transfusion Reactions: No Reported Reaction Past Psychological History: No Psychological Hx Reported Smoking Status: Current every day smoker Past Alcohol Use History: Rare Past Drug Use History: None Reported Medications and Allergies Home Medications Medication Instructions Recorded Confirmed Type sitaGLIPtin [Januvia] 100 mg PO HS 03/02/22 05/23/23 History Amiodarone [Cordarone] 200 mg PO DAILY tab 03/25/22 05/23/23 Rx Folic Acid 1 mg PO DAILY tab 03/25/22 05/23/23 Rx INSULIN ASPART (NovoLOG) [NovoLOG See Protocol SQ AC-TID 09/11/22 05/23/23 History (formulary)] Melatonin 5 mg PO HS 09/11/22 05/23/23 History Ascorbic Acid [Vitamin C] 1,000 mg PO DAILY 05/23/23 05/23/23 History Ergocalciferol (Vitamin D2) 1,250 mcg PO MO 05/23/23 05/23/23 History [Drisdol (50,000 Iu)] Metoprolol Tartrate [Lopressor] 12.5 mg PO BID 05/23/23 05/23/23 History methocarbamoL [Robaxin] 500 mg PO QID PRN 05/23/23 05/23/23 History Ampicillin-Sulbactam [Unasyn 3 gm 3 gm IVPB Q6HR 42 Days each 05/31/23 Rx vial] Enoxaparin [Lovenox] 40 mg SQ DAILY each 05/31/23 Rx Gabapentin [Neurontin] 300 mg PO TID #9 cap 05/31/23 Rx HYDROcodone/APAP 10-325MG [[place] 1 tab PO QID PRN #12 tab 05/31/23 Rx 10-325] Nicotine 21Mg/24Hr Patch [Habitrol] 1 patch TRANSDERM DAILY patch 05/31/23 Rx glipiZIDE [Glucotrol] 5 mg PO AC-BRKFST tab 05/31/23 Rx Allergies Allergy/AdvReac Type Severity Reaction Status Date / Time No Known Allergies Allergy Verified 05/23/23 17:39 Surgical - Exam Vital Signs Temp Pulse Resp BP Pulse Ox 98.6 F 101 H 16 143/71 100 05/23/23 15:25 05/23/23 15:25 05/23/23 15:25 05/23/23 15:25 05/23/23 15:25 Results - Labs 05/30/23 06:08 05/30/23 06:08 Abnormal Lab Results - Last 24 Hours (Table) 06/01/23 06/01/23 06/02/23 Range/Units 12:55 20:20 07:37 POC Glucose (mg/dL) 123 H 211 H 149 H (70-110) mg/dL Microbiology - Last 24 Hours (Table) 05/27/23 12:45 Anaerobic Culture - Final Other - Other
[2023-06-02 12:34] LABS: Glucose,Whole Blood 182 mg/dL (70-110)
[2023-06-02 13:02] VITALS: RESP 16
[2023-06-02] MEDS: methocarbamoL 500 MG TAB PO PRN ×2 (16:58→23:28)
[2023-06-02 17:36] LABS: Glucose,Whole Blood 142 mg/dL (70-110)
--- NOTE | 2023-06-02 17:37 | P.PN ---
Subjective Progress Note Date: 06/02/23 Principal diagnosis: Reason for follow-up is infected sacral pressure ulcer right diabetic foot infection osteomyelitis and bacteremia Patient is a 63-year-old male with a past medical history significant for diabetes mellitus current everyday smoker patient did have a previous history of left mgwkn-pkw-mwvp amputation presenting to the ER for evaluation generalized weakness patient noticed to have a extensive wound to the sacral area as well as to the right heel and Achilles wound with necrotic changes and foul-smelling order, patient was admitted to hospital for further management.Patient is status post right mzjei-rxh-kmkn amputation as well as excisional debridement of the sacral pressure ulcer down to the wound completed on 05/26/2023 unfortunately no cultures were done. On today's evaluation that is 06/02/2023 the patient remains to be afebrile, the patient is breathing comfortably on room air no chest pain shortness of breath or cough complaining some pain to the lower back no vomiting or diarrhea has been reported by the nursing staff. No new labs has been obtained today Objective - Vital Signs Vital signs: Vital Signs Temp 97.7 F 06/02/23 12:46 Pulse 72 06/02/23 12:46 Resp 16 06/02/23 12:46 BP 114/66 06/02/23 12:46 Pulse Ox 97 06/02/23 12:46 FiO2 Intake & Output 06/01/23 06/02/23 06/02/23 18:59 06:59 18:59 Intake Total 1080 Output Total 2600 2000 Balance -1520 -2000 Weight 63.503 kg Intake: Oral 1080 Output: Urine 2600 2000 Uretheral (Zee) 2600 Other: Voiding Method Indwelling Catheter Indwelling Catheter Indwelling Catheter # Bowel Movements 2 - Exam GENERAL DESCRIPTION: Middle-age male lying in bed in no distress RESPIRATORY SYSTEM: Unlabored breathing , decreased breath sounds at bases HEART: S1 S2 regular rate and rhythm , ABDOMEN: Soft , no tenderness EXTREMITIES: Patient right AKA stump is covered no drainage on the dressing - Labs CBC & Chem 7: 05/30/23 06:08 05/30/23 06:08 Labs: Abnormal Lab Results - Last 24 Hours (Table) 06/01/23 06/01/23 06/02/23 Range/Units 12:55 20:20 07:37 POC Glucose (mg/dL) 123 H 211 H 149 H (70-110) mg/dL 06/02/23 Range/Units 12:23 POC Glucose (mg/dL) 182 H (70-110) mg/dL Microbiology - Last 24 Hours (Table) 05/27/23 12:45 Anaerobic Culture - Final Other - Other Assessment and Plan (1) Ulcer of sacral region, stage 4 Current Visit: Yes Status: Acute Code(s): L98.429 - NON-PRESSURE CHRONIC ULCER OF BACK WITH UNSPECIFIED SEVERITY SNOMED Code(s): 68002506 (2) Sacral osteomyelitis Current Visit: Yes Status: Acute Code(s): M46.28 - OSTEOMYELITIS OF VERTEBRA, SACRAL AND SACROCOCCYGEAL REGION SNOMED Code(s): 177814466 (3) Bacteremia Current Visit: Yes Status: Acute Code(s): R78.81 - BACTEREMIA SNOMED Code(s): 9572826 (4) Diabetic foot infection Current Visit: Yes Status: Acute Code(s): E11.628 - TYPE 2 DIABETES MELLITUS WITH OTHER SKIN COMPLICATIONS; L08.9 - LOCAL INFECTION OF THE SKIN AND SUBCUTANEOUS TISSUE, UNSP SNOMED Code(s): 057346628 (5) Diabetic ulcer of right foot associated with diabetes mellitus due to underlying condition, with necrosis of bone Current Visit: Yes Status: Acute Code(s): E08.621 - DIABETES MELLITUS DUE TO UNDERLYING CONDITION W FOOT ULCER; L97.514 - NON-PRS CHRONIC ULCER OTH PRT RIGHT FOOT W NECROSIS OF BONE SNOMED Code(s): 381706343 Plan: 1patient presented to hospital with extensive right heel diabetic foot infection concern for underlying osteomyelitis and has significant foul-smelling drainage we will need to cover for the polymicrobial ceferino usually associated diabetic foot infection 2patient also evidence of stage IV sacral pressure ulcer concerning for underlying osteomyelitis on the basis of plain x-rays, Patient Is status post surgical debridement with a wound extending down to the bone no OR culture, cultures done on the floor currently growing gram-negative bacilli. 3patient with positive blood culture with coagulase-negative staph likely skin contamination repeat blood culture 05/25/2023 has been negative we will d iscontinue vancomycin 3sacral wound culture growing Proteus Mirabella that is a sensitive pathogen 4patient is currently covered with Unasyn 3 g every 6 hours we are waiting for the outpatient IV antibiotic arrangement before discharge which seem to have been an issue as the patient has no insurance if the patient not able to afford outpatient IV antibiotic therapy may consider oral antibiotic however high risk of failure further worsening of his wound sepsis and needs to be considered in mind with oral antibiotic therapy Dictation was produced using [employer] dictation software. please excuse any grammatical, word or spelling errors. Time with Patient: Less than 30
[2023-06-02 20:37] LABS: Glucose,Whole Blood 322 mg/dL (70-110)
[2023-06-02] MEDS: MELATONIN 5 MG TABLET PO SCH (21:06)
[2023-06-02] MEDS: TEMAZEPAM 15 MG CAP PO PRN (21:06)
[2023-06-03] MEDS: HYDROmorphone 0.5 MG/0.5 ML SYRINGE IVP PRN ×5 (02:00→15:54)
[2023-06-03] MEDS: ALPRAZolam 0.25 MG TAB PO PRN ×3 (03:04→16:55)
[2023-06-03] MEDS: HYDROcodone/APAP 10-325MG 1 EACH TAB PO PRN ×3 (03:04→16:55)
[2023-06-03] MEDS: AMPICILLIN-SULBACTAM 3 GM in SODIUM CHLORIDE 0.9% 100 ML IVPB SCH ×2 (05:22→12:11)
[2023-06-03] MEDS: methocarbamoL 500 MG TAB PO PRN (05:59)
[2023-06-03 07:28] LABS: Glucose,Whole Blood 121 mg/dL (70-110)
[2023-06-03] MEDS: INSULIN ASPART (NovoLOG) 100 UNIT/ML VIAL SQ SCH ×2 (07:44→12:02)
[2023-06-03 08:15] VITALS: PULSE 70
[2023-06-03] MEDS: GABAPENTIN 300 MG CAP PO SCH ×2 (08:57→15:54)
[2023-06-03] MEDS: FOLIC ACID 1 MG TAB PO SCH (08:57)
[2023-06-03] MEDS: METOPROLOL TARTRATE 12.5 MG TAB PO SCH (08:57)
[2023-06-03] MEDS: AMIODARONE 200 MG TAB PO SCH (08:57)
[2023-06-03] MEDS: glipiZIDE 5 MG TAB PO SCH (08:57)
[2023-06-03] MEDS: ASCORBIC ACID 500 MG TAB PO SCH (08:57)
[2023-06-03] MEDS: NICOTINE 21MG/24HR PATCH TRANSDERM SCH (08:57)
[2023-06-03] MEDS: ENOXAPARIN 40 MG/0.4 ML SYRINGE SQ SCH (08:57)
--- NOTE | 2023-06-03 11:37 | P.PN ---
Subjective Progress Note Date: 06/03/23 CHIEF COMPLAINT: Sacral decubitus ulcer HISTORY OF PRESENT ILLNESS: Patient is status post debridement of sacral decubitus ulcer on 05/26/2023. Surgical service as to reevaluate patient for a possible diverting colostomy. Patient has no insurance. financial accounting manager arranging for Medicaid. And they're working on arranging IV antibiotics outpatient. Afebrile. PHYSICAL EXAM: VITAL SIGNS: Reviewed. GENERAL: Well-developed in no acute distress. ABDOMEN: Soft. Nondistended. Nontender. NEUROLOGIC: Alert and oriented. Cranial nerves II through XII grossly intact. ASSESSMENT: 1. Stage IV Sacral decubitus ulcer status post debridement 2. Right above-knee amputation of right lower extremity nonhealing wound with Dr. Zee 3. Diabetes mellitus 4. Sacral osteomyelitis PLAN: -Recommend diverting colostomy after patient is insured -Antibiotics per infectious disease -Continue local wound care -Continue offloading Physician Weighmaster note has been reviewed by physician. Signing provider agrees with the documented findings, assessment, and plan of care. Objective - Vital Signs Vital signs: Vital Signs Temp 98.6 F 06/03/23 07:28 Pulse 70 06/03/23 07:28 Resp 16 06/03/23 07:28 BP 125/75 06/03/23 07:28 Pulse Ox 95 06/03/23 07:28 FiO2 Intake & Output 06/02/23 06/03/23 06/03/23 18:59 06:59 18:59 Intake Total 1100 1600 Output Total 1000 1700 Balance 100 -100 Intake: Intake, IV Titration 1100 1000 Amount Ampicillin-Sulbactam 3 gm 200 200 In Sodium Chloride 0.9% 100 ml @ 200 mls/hr IVPB Q6HR [facility] Rx#:[id number] Sodium Chloride 0.9% 1, 900 800 000 ml @ 75 mls/hr IV . [id number] [facility] Rx#:[id number] Oral 600 Output: Urine 1000 1700 Uretheral (Zee) 1000 Other: Voiding Method Indwelling Catheter Indwelling Catheter Indwelling Catheter - Labs CBC & Chem 7: 05/30/23 06:08 05/30/23 06:08 Labs: Abnormal Lab Results - Last 24 Hours (Table) 06/02/23 06/02/23 06/02/23 Range/Units 12:23 17:32 20:35 POC Glucose (mg/dL) 182 H 142 H 322 H (70-110) mg/dL 06/03/23 Range/Units 07:27 POC Glucose (mg/dL) 121 H (70-110) mg/dL
--- NOTE | 2023-06-03 11:45 | P.PN ---
Subjective Progress Note Date: 06/03/23 Principal diagnosis: Infected right lower extremity diabetic wound Patient was seen and examined today as a follow-up. The patient was post be discharged however it was found that patient has no insurance. Case management is working on possibly getting patient discharged to rehab versus going home with outpatient IV antibiotics per recommendation from infectious disease. He currently is resting with his eyes closed. States he has some discomfort mostly in the area of his sacral wound. He has stump midwife practitioner and rigid dressing in place to the right quwxk-fdx-gtsc amputation stump. He is been afebrile. Objective - Vital Signs Vital signs: Vital Signs Temp 98.6 F 06/03/23 07:28 Pulse 70 06/03/23 07:28 Resp 16 06/03/23 07:28 BP 125/75 06/03/23 07:28 Pulse Ox 95 06/03/23 07:28 FiO2 Intake & Output 06/02/23 06/03/23 06/03/23 18:59 06:59 18:59 Intake Total 1100 1600 Output Total 1000 1700 800 Balance 100 -100 -800 Intake: Intake, IV Titration 1100 1000 Amount Ampicillin-Sulbactam 3 gm 200 200 In Sodium Chloride 0.9% 100 ml @ 200 mls/hr IVPB Q6HR [facility] Rx#:[id number] Sodium Chloride 0.9% 1, 900 800 000 ml @ 75 mls/hr IV . [id number] [facility] Rx#:[id number] Oral 600 Output: Urine 1000 1700 800 Uretheral (Zee) 1000 Other: Voiding Method Indwelling Catheter Indwelling Catheter Indwelling Catheter - Exam General appearance: The patient is alert, oriented, appears in no acute distress. HET: Head is normocephalic and atraumatic. Neck: Supple. Abdomen: Soft, nondistended. Extremities: Previous Left jsjsc-hdq-fozo amputation. Right gtahd-moi-ffxs amputation stump with stump midwife practitioner and rigid dressing in place. Neurological: No focal deficits. - Labs CBC & Chem 7: 05/30/23 06:08 05/30/23 06:08 Labs: Abnormal Lab Results - Last 24 Hours (Table) 06/02/23 06/02/23 06/02/23 Range/Units 12:23 17:32 20:35 POC Glucose (mg/dL) 182 H 142 H 322 H (70-110) mg/dL 06/03/23 Range/Units 07:27 POC Glucose (mg/dL) 121 H (70-110) mg/dL Assessment and Plan Assessment: 1. Infected right diabetic heel and Achilles wound status post right kddtk-kiq-rzhc amputation 2. Peripheral arterial disease 3. Diabetes mellitus 4. Current tobacco use 5. Sacral wound 6. Bedridden, nonambulatory 7. History of left lower extremity diabetic wound status post left ovejj-mss-cdct amputation Plan: 1. Patient is post PICC line placement 2. Stump midwife practitioner and rigid dressing in place 3. Patient is cleared for discharge from vascular surgery. He can follow-up with Dr. Zee in 2 weeks. Thank you for this consultation, we will sign off at this time. The impression and plan of care has been dictated as directed. Dr. Allen I performed a history and examination of this patient, discussed the same with the dictator. I agree with the dictator's note ,documented as a scribe. Any additional findings or plans will be noted.
[2023-06-03 11:54] LABS: Glucose,Whole Blood 127 mg/dL (70-110)
[2023-06-03 13:34] VITALS: BP 118/72; TEMP 98.4
--- NOTE | 2023-06-03 14:18 | IR ---
PICC Insertion: EXAMINATION TYPE: IR cvc insert >=5 years Intraoperative/procedural fluoroscopic services were provid ed. CLINICAL INDICATION:Male, 63 years old with history of Abx, 0.4m/0.0218DAP, 4F 43 lt basilic PICC; , [facility] Total fluoroscopy time is 0.4 min. DAP: 0.0218 Gycm2 Please see the operative/procedural note for further details.
--- NOTE | 2023-06-03 16:10 | P.PN ---
Subjective Progress Note Date: 06/03/23 Principal diagnosis: Reason for follow-up is infected sacral pressure ulcer right diabetic foot infection osteomyelitis and bacteremia Patient is a 63-year-old male with a past medical history significant for diabetes mellitus current everyday smoker patient did have a previous history of left abkbg-bnl-[id number] amputation presenting to the ER for evaluation generalized weakness patient noticed to have a extensive wound to the sacral area as well as to the right heel and Achilles wound with necrotic changes and foul-smelling order, patient was admitted to hospital for further management.Patient is status post right fhvme-kev-uadz amputation as well as excisional debridement of the sacral pressure ulcer down to the wound completed on 05/26/2023 unfortunately no cultures were done. On today's evaluation that is 06/03/2023, the patient continues to be afebrile the patient is breathing comfortably on room air denies any chest pain shortness of breath or cough no abdominal pain still complains of some pain to the lower back and wants more pain medication. No new labs were obtained today culture positive for Proteus and anaerobes Objective - Vital Signs Vital signs: Vital Signs Temp 98.4 F 06/03/23 12:48 Pulse 70 06/03/23 12:48 Resp 16 06/03/23 12:48 BP 118/72 06/03/23 12:48 Pulse Ox 98 06/03/23 12:48 FiO2 Intake & Output 06/02/23 06/03/23 06/03/23 18:59 06:59 18:59 Intake Total 1100 1600 Output Total 1000 1700 800 Balance 100 -100 -800 Intake: Intake, IV Titration 1100 1000 Amount Ampicillin-Sulbactam 3 gm 200 200 In Sodium Chloride 0.9% 100 ml @ 200 mls/hr IVPB Q6HR [facility] Rx#:[id number] Sodium Chloride 0.9% 1, 900 800 000 ml @ 75 mls/hr IV . [id number] [facility] Rx#:[id number] Oral 600 Output: Urine 1000 1700 800 Uretheral (Zee) 1000 Other: Voiding Method Indwelling Catheter Indwelling Catheter Indwelling Catheter - Exam GENERAL DESCRIPTION: Middle-age male lying in bed in no distress RESPIRATORY SYSTEM: Unlabored breathing , decreased breath sounds at bases HEART: S1 S2 regular rate and rhythm , ABDOMEN: Soft , no tenderness EXTREMITIES: Patient right AKA stump is covered no drainage on the dressing - Labs CBC & Chem 7: 05/30/23 06:08 05/30/23 06:08 Labs: Abnormal Lab Results - Last 24 Hours (Table) 06/02/23 06/02/23 06/03/23 Range/Units 17:32 20:35 07:27 POC Glucose (mg/dL) 142 H 322 H 121 H (70-110) mg/dL 06/03/23 Range/Units 11:53 POC Glucose (mg/dL) 127 H (70-110) mg/dL Assessment and Plan (1) Ulcer of sacral region, stage 4 Current Visit: Yes Status: Acute Code(s): L98.429 - NON-PRESSURE CHRONIC ULCER OF BACK WITH UNSPECIFIED SEVERITY SNOMED Code(s): 14161951 (2) Sacral osteomyelitis Current Visit: Yes Status: Acute Code(s): M46.28 - OSTEOMYELITIS OF VERTEBRA, SACRAL AND SACROCOCCYGEAL REGION SNOMED Code(s): 307364412 (3) Bacteremia Current Visit: Yes Status: Acute Code(s): R78.81 - BACTEREMIA SNOMED Co de(s): 9504005 (4) Diabetic foot infection Current Visit: Yes Status: Acute Code(s): E11.628 - TYPE 2 DIABETES MELLITUS WITH OTHER SKIN COMPLICATIONS; L08.9 - LOCAL INFECTION OF THE SKIN AND SUBCUTANEOUS TISSUE, UNSP SNOMED Code(s): 557021696 (5) Diabetic ulcer of right foot associated with diabetes mellitus due to underlying condition, with necrosis of bone Current Visit: Yes Status: Acute Code(s): E08.621 - DIABETES MELLITUS DUE TO UNDERLYING CONDITION W FOOT ULCER; L97.514 - NON-PRS CHRONIC ULCER OTH PRT RIGHT FOOT W NECROSIS OF BONE SNOMED Code(s): 655790998 Plan: 1patient presented to hospital with extensive right heel diabetic foot infection concern for underlying osteomyelitis and has significant foul-smelling drainage we will need to cover for the polymicrobial ceferino usually associated diabetic foot infection 2patient also evidence of stage IV sacral pressure ulcer concerning for underly ing osteomyelitis on the basis of plain x-rays, Patient Is status post surgical debridement with a wound extending down to the bone no OR culture, cultures done on the floor currently growing gram-negative bacilli. 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 please excuse any grammatical, word or spelling errors. Time with Patient: Less than 30
--- NOTE | 2023-06-03 17:24 | P.DS ---
Providers Date of admission: 05/23/23 16:57 Expected date of discharge: 06/03/23 Attending physician: Jerardo Guillen Consults: 05/23/23 16:55 Consult Physician Routine Consulting Provider: Benjamin Schulz Consult Reason/Comments: Foot and sacral ulcers Do you want consulting provider notified?: Yes Consult Physician Urgent Consulting Provider: Jim Pizarro Consult Reason/Comments: Foot and sacral ulcers, sepsis criteria Do you want consulting provider notified?: Yes 06/01/23 16:21 Consult Physician Routine Consulting Provider: Neal Pabon Consult Reason/Comments: Colostomy due to sacral wound Do you want consulting provider notified?: Already Contacted Primary care physician: [facility] Course: Chief Complaint: Worsening wounds This is a 62-year-old patient, follows with Dr. Mendez. Chronic stable medical conditions include ADHD, herniated disc lower back, smoker. Sacral wounds. Left AKA Patient has lost his insurance for about 4-6 weeks. Was unable to follow for wound care. Had been following with [facility]. He has a sacral decubitus. Also wart on the right foot healed. Patient does continue to vaping and occasional cigarettes. Has increasing pain in the lower back in the sacral area and the right heel. Appetite is fair. No fever no chills. 05/25/2023: Laying in bed. Pain as before. Scheduled for surgery tomorrow. IV Unasyn and IV vancomycin. 05/26/2023: Patient today underwent wound excision of the sacrum by Dr. Marshall and right above-knee amputation by Dr. Araujo. Some pain is present. In bed. 05/27/2023: Overall feels a bit better. Some pain in the amputation stump. Tolerating diet. On IV Unasyn. IV vancomycin. 05/28/2023: Fairly good. Some pain present. No new other symptoms. On IV antibiotics. 05/29/2023: Some pain present. Tolerating diet. Continued IV antibodies. Wound dressing per vascular. 05/30/2023: Eating well. In bed. Looking for probable discharge to rehab [facility]. Discussed with patient. For a sacral wound but ID patient related a PICC line in 6 weeks of IV Unasyn. For sacral osteomyelitis. 05/31/2023: Oral intake fair. Interventional radiology not available in the hospital. Requested Dr. Araujo. Later this afternoon PICC line was placed by Dr. Allen. Spoke to case filler-insurance is being sorted out. Hopefully discharge liquid tomorrow. Also communicated with the nurse and the patient. Total time spent today over 50 minutes with over 40 minutes of discussion. 06/01/2023: Spoke to the case filler Vernon. Insurance issues are being sorted out. Patient seen by Dr. doan for wound care center. Recommending diverting colostomy. Dr. Marshall is being covered by Dr. Pabon. Will refer the matter to him. No other new issues. June 02: [facility] case filler informed be that patient has no insurance. In the meantime elevate input from Dr. Pabon regarding if he wants to go diverting colostomy. Other medications to continue. 06/03/2023: Patient discharged antibiotics being changed over to ceftriaxone 2 g daily for 6 weeks. [facility] outpatient department, is a patient will come every day for his antibody. Eyes informed that the son will bring the patient every day for the treatment. Spoke to Rahel from case management. And the nurse. Patricia. Dr. Pabon is arranging for diverting colostomy outpatient next week Past medical history to include: Diabetes, possible ADHD, chronic low back pain, herniated disc, atrial fibrillation. COPD. left above-knee amputation Social history: Son lives with the patient. 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 Smokes about a pack a day, now down to a few cigarettes a day. Alcohol occasionally. Physical examination: VITAL SIGNS: 98.4, 70, 16, 11 8 x 32, 98% room air GENERAL: Laying in bed EYES: Pupils equal. Conjunctiva normal. HEENT: External appearance of nose and ears normal, oral cavity grossly normal. NECK: JVD not raised; masses not palpable. HEART: First and second heart sounds are normal; no edema. LUNGS: Respiratory rate normal; decreased breath sounds. ABDOMEN: Soft, nontender, liver spleen not palpable, no masses palpable. PSYCH: [Alert and oriented x3; mood and affect tired l. MUSCULOSKELETAL: Left AKA. Right above-knee amputation with a dressing in place. Sacral wound. INVESTIGATIONS, reviewed in the clinical context: 05/30/2023: White count 7.4 hemoglobin 8 potassium 4.1 creatinine 0.4 05/24/2023: White count 10.4 hemoglobin 8.7 weight 07/02/2005 sodium 135 potassium 3.4 BUN 5.6 creatinine 0.4 HbA1c 11.5 Ultrasound arterial lower extremity moderate right PAD with ankle brachial indices Sacral and coccygeal x-ray: Deep decubitus ulcer with interval osseous destruction of the distal coccygeal segments. Right foot x-ray severe osteopenia. Chest x-ray film personally reviewed by me-hyperinflation EKG tracing personally reviewed by me-normal sinus rhythm Assessment and plan: -Right lower extremity nonhealing wound infection sepsis, POA Right above-knee amputation by Dr. Araujo on May 26. Cultures grew multiple organisms. Pain control. Wound dressings Follow-up with vascular Dr. Araujo -Sacral decubitus ulcer. With acute osteomyelitis. Debrided by Dr. Marshall on May 26. Cultures positive for Proteus mirabilis. 4 IV Unasyn for 6 weeks upon discharge per ID. Dr. doan for wound care center suggesting diverting colostomy: Will refer to Gen. surgery for the same. Discharge in IV ceftriaxone 2 g daily for 6 weeks of the [facility]. Follow up with Dr. doan -Left AKA -Paroxysmal atrial fibrillation: sinus rhythm Amiodarone. Lopressor. -Acute postprocedure blood loss anemia expected from surgery IV Ferrlecit-2 doses -Diabetes mellitus type 2, chronically on insulin Follow Accu-Cheks. -COPD in a current smoker Bronchodilators as needed -Chronic nicotine dependence, cigarette smoker Nicotine patch -Chronic medical debility. Non-ambulatory -Full code Disposition: Home with son Past Medical History Past Medical History: Diabetes Mellitus Additional Past Medical History / Comment(s): pressure ulcers[Buttock,simone heals ,rt lateral foot] History of Any Multi-Drug Resistant Organisms: None Reported Past Surgical History: Orthopedic Surgery Additional Past Surgical History / Comment(s): back pain son states pt recently "slipped a disc" taking gabapentin. Left leg above the knee amputation, Past Psychological History: No Psychological Hx Reported Smoking Status: Current every day smoker Past Alcohol Use History: Rare Past Drug Use History: None Reported Plan - Discharge Summary New Discharge Prescriptions: New glipiZIDE [Glucotrol] 5 mg PO AC-BRKFST tab Nicotine 21Mg/24Hr Patch [Habitrol] 1 patch TRANSDERM DAILY patch metroNIDAZOLE [Flagyl] 500 mg PO TID #90 tab cefTRIAXone [Rocephin] 2,000 mg IVP Q24HR #40 each Continue Folic Acid 1 mg PO DAILY tab INSULIN ASPART (NovoLOG) [NovoLOG (formulary)] See Protocol SQ AC-TID Melatonin 5 mg PO HS Ergocalciferol (Vitamin D2) [Drisdol (50,000 Iu)] 1,250 mcg PO MO methocarbamoL [Robaxin] 500 mg PO QID PRN PRN Reason: Pain Ascorbic Acid [Vitamin C] 1,000 mg PO DAILY Gabapentin [Neurontin] 300 mg PO TID #9 cap sitaGLIPtin [Januvia] 100 mg PO HS Amiodarone [Cordarone] 200 mg PO DAILY tab Metoprolol Tartrate [Lopressor] 12.5 mg PO BID HYDROcodone/APAP 10-325MG [Maybeury 10-325] 1 tab PO QID PRN #12 tab PRN Reason: Pain Discontinued Furosemide [Lasix] 40 mg PO DAILY tab Insulin Detemir [Levemir Flexpen] 10 units SQ HS Discharge Medication List sitaGLIPtin [Januvia] 100 mg PO HS 03/02/22 [History] Amiodarone [Cordarone] 200 mg PO DAILY tab 03/25/22 [Rx] Folic Acid 1 mg PO DAILY tab 03/25/22 [Rx] INSULIN ASPART (NovoLOG) [NovoLOG (formulary)] See Protocol SQ AC-TID 09/11/22 [History] Melatonin 5 mg PO HS 09/11/22 [History] Ascorbic Acid [Vitamin C] 1,000 mg PO DAILY 05/23/23 [History] Ergocalciferol (Vitamin D2) [Drisdol (50,000 Iu)] 1,250 mcg PO MO 05/23/23 [History] Metoprolol Tartrate [Lopressor] 12.5 mg PO BID 05/23/23 [History] methocarbamoL [Robaxin] 500 mg PO QID PRN 05/23/23 [History] Gabapentin [Neurontin] 300 mg PO TID #9 cap 05/31/23 [Rx] HYDROcodone/APAP 10-325MG [Maybeury 10-325] 1 tab PO QID PRN #12 tab 05/31/23 [Rx] Nicotine 21Mg/24Hr Patch [Habitrol] 1 patch TRANSDERM DAILY patch 05/31/23 [Rx] glipiZIDE [Glucotrol] 5 mg PO AC-BRKFST tab 05/31/23 [Rx] cefTRIAXone [Rocephin] 2,000 mg IVP Q24HR #40 each 06/03/23 [Rx] metroNIDAZOLE [Flagyl] 500 mg PO TID #90 tab 06/03/23 [Rx] Follow up Appointment(s)/Referral(s): Benjamin Mendez MD [Primary Care Provider] - 1-2 days (The office is closed please call and schedule follow up appointment.) Barbara Araujo DO [STAFF PHYSICIAN] - 2 Weeks (The office is closed please call and make follow up appointment.) [facility] [NON-STAFF] - 1 Week Jim Pizarro MD [STAFF PHYSICIAN] - 2 Weeks (The office is closed please call and make follow up appointment.) Danny Ashby [NON-STAFF] - 1 Week Neal Pabon MD [STAFF PHYSICIAN] - 06/08/23 Ambulatory/Diagnostic Orders: Basic Metabolic Panel [LAB.AMB] Location: None Selected C Reactive Protein [LAB.AMB] Location: None Selected Complete Blood Count w/diff [LAB.AMB] Location: None Selected Erythrocyte Sedimentation Rate [LAB.AMB] Location: None Selected Patient Instructions/Handouts: Sepsis (DC), Pressure Injury (DC), Above the Knee Amputation (DC) Activity/Diet/Wound Care/Special Instructions: abx per dr pizarro wound care per dr araujo On Saturdays patient to report to patient check in on the 1st floor (the room with all the windows next to the elevator), on Tuesday pt has to go to ER to check in - Tuesday -Tuesday pt to report to [facility] 3rd floor, use the elevator behind the main entrance check in. your appt is for 11am every day
== END 2023-06-03 17:45 | disposition home or self-care (01) | DRG 853 ==
LOC: EC 15:16 → 5NMEDONC 16:57
PROVIDERS: ADMIT Hospitalist; ATTEND Hospitalist
PROC: 0Y6C0Z3 Detachment at Right Upper Leg, Low, Open Approach (ICD-10-PCS; principal; 2023-05-26 12:00)
PROC: 0QB10ZZ Excision of Sacrum, Open Approach (ICD-10-PCS; 2023-05-26 12:00)
PROC: 05HC33Z Insertion of Infusion Device into Left Basilic Vein, Percutaneous Approach (ICD-10-PCS; 2023-05-31)
DX: A41.9 Sepsis, unspecified organism (principal); L89.154 Pressure ulcer of sacral region, stage 4; E11.52 Type 2 diabetes mellitus with diabetic peripheral angiopathy with gangrene; I96 Gangrene, not elsewhere classified; D62 Acute posthemorrhagic anemia; L03.312 Cellulitis of back [any part except buttock and flank]; M46.28 Osteomyelitis of vertebra, sacral and sacrococcygeal region; E11.649 Type 2 diabetes mellitus with hypoglycemia without coma; L89.612 Pressure ulcer of right heel, stage 2; Z43.3 Encounter for attention to colostomy; E11.40 Type 2 diabetes mellitus with diabetic neuropathy, unspecified; E11.628 Type 2 diabetes mellitus with other skin complications; E11.69 Type 2 diabetes mellitus with other specified complication; E11.51 Type 2 diabetes mellitus with diabetic peripheral angiopathy without gangrene; Z89.612 Acquired absence of left leg above knee; E11.65 Type 2 diabetes mellitus with hyperglycemia; I48.0 Paroxysmal atrial fibrillation; J44.9 Chronic obstructive pulmonary disease, unspecified; Z79.4 Long term (current) use of insulin; Z28.310 Unvaccinated for COVID-19; I10 Essential (primary) hypertension; F90.9 Attention-deficit hyperactivity disorder, unspecified type; F41.9 Anxiety disorder, unspecified; G47.00 Insomnia, unspecified; F17.210 Nicotine dependence, cigarettes, uncomplicated; F17.290 Nicotine dependence, other tobacco product, uncomplicated; K59.00 Constipation, unspecified; M85.871 Other specified disorders of bone density and structure, right ankle and foot; R32 Unspecified urinary incontinence; T38.3X6A Underdosing of insulin and oral hypoglycemic [antidiabetic] drugs, initial encounter; Z91.128 Patient's intentional underdosing of medication regimen for other reason; Z91.199 Patient's noncompliance with other medical treatment and regimen due to unspecified reason; Z79.84 Long term (current) use of oral hypoglycemic drugs; Z79.899 Other long term (current) drug therapy; Z74.01 Bed confinement status; Z59.6 Low income; Z59.7 Insufficient social insurance and welfare support
CPT/HCPCS: 36415; 36573; 71046; 72220; 80048; 80053; 80202; 81001; 82009; 82565; 83036; 83605; 85025; 85610; 85652; 85730; 86140; 86850; 86900; 86901; 87040; 87070; 87075; 87077; 87086; 87186; 87205; 93005; 93922; 96361; 96365; 96366; 96367; 96372; 99291

== ENCOUNTER 2023-06-20 14:34 | Inpatient (IN) | payer OTHER ==
[2023-06-20] MEDS ORDERED: SODIUM CHLORIDE 0.9% 1,000 ML IV STA (14:52)
--- NOTE | 2023-06-20 14:54 | ED ---
Weakness HPI - General Chief complaint: Weakness Stated complaint: Lethargy Time Seen by Provider: 06/20/23 14:38 Source: patient, EMS Mode of arrival: EMS Limitations: physical limitation - History of Present Illness Initial comments: The patient's a 63-year-old gentleman with multiple comorbidities including poorly controlled diabetes, bilateral below the knee amputations, the right hip dictation being a week and half ago, noncompliance who presents emergency room for generalized weakness and lethargy. Patient believes one of his sons called EMS because he was lethargic. He states he has been taking his medication as prescribed and has not taken too many. Denies any other alcohol or drug use. The patient denies any fevers. He states he has not taken his IV antibiotic infusions for about 5 days because he didn't have transportation to the infusion center. He has not been taking the oral medications either. Again he denies any wound dehiscence, fevers or discoloration of his amputation. - Related Data Home Medications Medication Instructions Recorded Confirmed INSULIN ASPART (NovoLOG) [NovoLOG See Protocol SQ AC-TID PRN 09/11/22 06/20/23 (formulary)] Previous Rx's Medication Instructions Recorded HYDROcodone/APAP 10-325MG [[place] 1 tab PO QID PRN #12 tab 05/31/23 10-325] Allergies Allergy/AdvReac Type Severity Reaction Status Date / Time No Known Allergies Allergy Verified 06/20/23 17:50 Review of Systems ROS Statement: Those systems with pertinent positive or pertinent negative responses have been documented in the HPI. ROS Other: All systems not noted in ROS Statement are negative. Past Medical History Past Medical History: Diabetes Mellitus Additional Past Medical History / Comment(s): pressure ulcers[Buttock,simone heals ,rt lateral foot]. BLOOD "ECOLI" INFECTION. History of Any Multi-Drug Resistant Organisms: None Reported Past Surgical History: Orthopedic Surgery Additional Past Surgical History / Comment(s): back pain son states pt recently "slipped a disc" taking gabapentin. Left leg above the knee amputation. MICHELLE PICC LINE. Past Anesthesia/Blood Transfusion Reactions: No Reported Reaction Past Psychological History: No Psychological Hx Reported Smoking Status: Current every day smoker Past Alcohol Use History: Rare Past Drug Use History: None Reported General Exam Limitations: physical limitation General appearance: lethargic Head exam: Present: atraumatic Eye exam: Present: PERRL, other (pinpoint pupils) ENT exam: Present: normal exam Neck exam: Present: full ROM Respiratory exam: Present: normal lung sounds bilaterally Cardiovascular Exam: Present: regular rate GI/Abdominal exam: Present: soft. Absent: distended, tenderness exam: Present: other (indwelling araujo in place, discolored output) Extremities exam: Present: other (b/l BKA, R BKA healing well, no erythema or wound dehiscence.) Back exam: Present: other (decubitus ulcers) Neurological exam: Present: alert, oriented X3, CN II-XII intact Psychiatric exam: Present: normal affect, normal mood Skin exam: Present: warm, dry Course Vital Signs 06/20/23 06/20/23 06/20/23 14:36 16:21 18:09 Temperature 98.7 F 98.7 F 99.4 F Pulse Rate 93 93 95 Respiratory 20 24 20 Rate Blood Pressure 105/82 153/75 131/75 O2 Sat by Pulse 98 98 100 Oximetry - Reevaluation(s) Reevaluation #1: [id number] Patient will be admitted for generalized weakness and lethargy. Will be given IV antibiotics as prescribed previously. I spoke with Dr. Guillen regarding admission. Dr. cuellar saw the patient at bedside as we well. Medical Decision Making - Medical Decision Making Was pt. sent in by a medical professional or institution (, PA, CONTACT LENS BLOCKER, urgent care, hospital, or fci...) When possible be specific @ -[No] Did you speak to anyone other than the patient for history (EMS, parent, family, police, friend...)? What history was obtained from this source @ -[No] Did you review nursing and triage notes (agree or disagree)? Why? @ -[I reviewed and agree with nursing and triage notes] Were old charts reviewed (outside hosp., previous admission, EMS record, old EKG, old radiological studies, urgent care reports/EKG's, fci records)? Report findings @ -[yes old charts were reviewed] Differential Diagnosis (chest pain, altered mental status, abdominal pain women, abdominal pain men, vaginal bleeding, weakness, fever, dyspnea, syncope, headache, dizziness, GI bleed, back pain, seizure, CVA, palpatations, mental health, musculoskeletal)? @ -Hyperglycemia, cellulitis, postop complications, substance abuse, use use of medications, dehydration EKG interpreted by me (3pts min.). @ -[As above] X-rays interpreted by me (1pt min.). @ -[None done] CT interpreted by me (1pt min.). @ -[None done] U/S interpreted by me (1pt. min.). @ -[None done] What testing was considered but not performed or refused? (CT, X-rays, U/S, labs)? Why? @ -[None] What meds were considered but not given or refused? Why? @ -[None] Did you discuss the management of the patient with other professionals (professionals i.e. , PA, CONTACT LENS BLOCKER, lab, RT, psych nurse, manager social responsibility, manual lathe machinist, teacher, job placement officer, shelter case manager)? Give summary @ -[I spoke with Dr. guillen regarding admission to the hospital. He will be admitted for weakness and lethargy. Was smoking cessation discussed for >3mins.? @ -[No] Was critical care preformed (if so, how long)? @ -[No] Were there social determinants of health that impacted care today? How? (Homelessness, low income, unemployed, alcoholism, drug addiction, transportation, low edu. Level, literacy, decrease access to med. care, assisted, rehab)? @ -[No] Was there de-escalation of care discussed even if they declined (Discuss DNR or withdrawal of care, Hospice)? DNR status @ -[No] What co-morbidities impacted this encounter? (DM, HTN, Smoking, COPD, CAD, Cancer, CVA, ARF, Chemo, Hep., AIDS, mental health diagnosis, sleep apnea, morbid obesity)? @ -[Noncompliant, postop, diabetes Was patient admitted / discharged? Hospital course, mention meds given and route, prescriptions, significant lab abnormalities, going to OR and other perti nent info. @ -[Patient will be admitted to the hospital for generalized weakness and lethargy, UTI Undiagnosed new problem with uncertain prognosis? @ -[No] Drug Therapy requiring intensive monitoring for toxicity (Heparin, Nitro, Insulin, Cardizem)? @ -[No] Were any procedures done? @ -[No] Diagnosis/symptom? @ -[Generalized weakness, lethargy, substance abuse, UTI Acute, or Chronic, or Acute on Chronic? @ -[Acute Uncomplicated (without systemic symptoms) or Complicated (systemic symptoms)? @ -complicated Side effects of treatment? @ -[No] Exacerbation, Progression, or Severe Exacerbation? @ -[exacerbation Poses a threat to life or bodily function? How? (Chest pain, [place], [place], pneumonia, PE, COPD, DKA, ARF, appy, cholecystitis, CVA, Diverticulitis, Homicidal, Suicidal, threat to staff... and all critical care pts) @ -[yes] - Lab Data Result diagrams: 06/20/23 14:57 06/20/23 14:57 Lab Results 06/20/23 06/20/23 06/20/23 Range/Units 14:57 14:57 14:57 WBC 13.6 H (3.8-10.6) k/uL RBC 3.96 L (4.30-5.90) m/uL Hgb 10.5 L (13.0-17.5) gm/dL Hct 32.8 L (39.0-53.0) % MCV 82.9 (80.0-100.0) fL MCH 26.5 (25.0-35.0) pg MCHC 32.0 (31.0-37.0) g/dL RDW 16.6 H (11.5-15.5) % Plt Count 296 (150-450) k/uL MPV 7.1 Neutrophils % 76 % Lymphocytes % 13 % Monocytes % 5 % Eosinophils % 5 % Basophils % 1 % Neutrophils # 10.3 H (1.3-7.7) k/uL Lymphocytes # 1.8 (1.0-4.8) k/uL Monocytes # 0.6 (0-1.0) k/uL Eosinophils # 0.7 (0-0.7) k/uL Basophils # 0.1 (0-0.2) k/uL Hypochromasia Slight Anisocytosis Slight PT (10.0-12.5) sec INR (<1.2) APTT (22.0-30.0) sec Sodium (137-145) mmol/L Potassium (3.5-5.1) mmol/L Chloride (98-107) mmol/L Carbon Dioxide (22-30) mmol/L Anion Gap mmol/L BUN (9-20) mg/dL Creatinine (0.66-1.25) mg/dL Est GFR (CKD-EPI)AfAm (>60 ml/min/1.73 sqM) Est GFR (CKD-EPI)NonAf (>60 ml/min/1.73 sqM) Glucose (74-99) mg/dL Plasma Lactic Acid Jermain (0.7-2.0) mmol/L Calcium (8.4-10.2) mg/dL Total Bilirubin (0.2-1.3) mg/dL AST (17-59) U/L ALT (4-49) U/L Alkaline Phosphatase (38-126) U/L Troponin I <0.012 (0.000-0.034) ng/mL Total Protein (6.3-8.2) g/dL Albumin (3.5-5.0) g/dL Urine Color Urine Appearance (Clear) Urine pH (5.0-8.0) Ur Specific [place] (1.001-1.035) Urine Protein (Negative) Urine Glucose (UA) (Negative) Urine Ketones (Negative) Urine Blood (Negative) Urine Nitrite (Negative) Urine Bilirubin (Negative) Urine Urobilinogen (<2.0) mg/dL Ur Leukocyte Esterase (Negative) Urine RBC (0-5) /hpf Urine WBC (0-5) /hpf Urine WBC Clumps (None) /hpf Ur Squamous Epith Cells (0-4) /hpf Urine Mucus (None) /hpf Ur Yeast w Hyphae (None) /hpf Urine Yeast (Budding) (None) /hpf Urine Opiates Screen (NotDetected) Ur Oxycodone Screen (NotDetected) Urine Methadone Screen (NotDetected) Ur Barbiturates Screen (NotDetected) U Tricyclic Antidepress (NotDetected) Ur Phencyclidine Scrn (NotDetected) Ur Amphetamines Screen (NotDetected) U Methamphetamines Scrn (NotDetected) U Benzodiazepines Scrn (NotDetected) Urine Cocaine Screen (NotDetected) U Marijuana (THC) Screen (NotDetected) Influenza Type A (PCR) Not Detected (Not Detectd) Influenza Type B (PCR) Not Detected (Not Detectd) RSV (PCR) Not Detected (Not Detectd) SARS-CoV-2 (PCR) Not Detected (Not Detectd) 06/20/23 06/20/23 06/20/23 Range/Units 14:57 14:57 14:57 WBC (3.8-10.6) k/uL RBC (4.30-5.90) m/uL Hgb (13.0-17.5) gm/dL Hct (39.0-53.0) % MCV (80.0-100.0) fL MCH (25.0-35.0) pg MCHC (31.0-37.0) g/dL RDW (11.5-15.5) % Plt Count (150-450) k/uL MPV Neutrophils % % Lymphocytes % % Monocytes % % Eosinophils % % Basophils % % Neutrophils # (1.3-7.7) k/uL Lymphocytes # (1.0-4.8) k/uL Monocytes # (0-1.0) k/uL Eosinophils # (0-0.7) k/uL Basophils # (0-0.2) k/uL Hypochromasia Anisocytosis PT 10.9 (10.0-12.5) sec INR 1.0 (<1.2) APTT 28.3 (22.0-30.0) sec Sodium 132 L (137-145) mmol/L Potassium 3.6 (3.5-5.1) mmol/L Chloride 100 (98-107) mmol/L Carbon Dioxide 28 (22-30) mmol/L Anion Gap 4 mmol/L BUN 8 L (9-20) mg/dL Creatinine 0.35 L (0.66-1.25) mg/dL Est GFR (CKD-EPI)AfAm >90 (>60 ml/min/1.73 sqM) Est GFR (CKD-EPI)NonAf >90 (>60 ml/min/1.73 sqM) Glucose 192 H (74-99) mg/dL Plasma Lactic Acid Jermain (0.7-2.0) mmol/L Calcium 8.1 L (8.4-10.2) mg/dL Total Bilirubin 0.4 (0.2-1.3) mg/dL AST 16 L (17-59) U/L ALT 12 (4-49) U/L Alkaline Phosphatase 75 (38-126) U/L Troponin I (0.000-0.034) ng/mL Total Protein 6.2 L (6.3-8.2) g/dL Albumin 2.9 L (3.5-5.0) g/dL Urine Color Yellow Urine Appearance Turbid (Clear) Urine pH 6.5 (5.0-8.0) Ur Specific [place] 1.017 (1.001-1.035) Urine Protein 1+ H (Negative) Urine Glucose (UA) Negative (Negative) Urine Ketones Negative (Negative) Urine Blood Large H (Negative) Urine Nitrite Negative (Negative) Urine Bilirubin Negative (Negative) Urine Urobilinogen <2.0 (<2.0) mg/dL Ur Leukocyte Esterase Large H (Negative) Urine RBC >182 H (0-5) /hpf Urine WBC >182 H (0-5) /hpf Urine WBC Clumps Moderate H (None) /hpf Ur Squamous Epith Cells 4 (0-4) /hpf Urine Mucus Many H (None) /hpf Ur Yeast w Hyphae Occasional (None) /hpf Urine Yeast (Budding) Many H (None) /hpf Urine Opiates Screen Detected H (NotDetected) Ur Oxycodone Screen Not Detected (NotDetected) Urine Methadone Screen Not Detected (NotDetected) Ur Barbiturates Screen Not Detected (NotDetected) U Tricyclic Antidepress Not Detected (NotDetected) Ur Phencyclidine Scrn Not Detected (NotDetected) Ur Amphetamines Screen Detected H (NotDetected) U Methamphetamines Scrn Detected H (NotDetected) U Benzodiazepines Scrn Detected H (NotDetected) Urine Cocaine Screen Not Detected (NotDetected) U Marijuana (THC) Screen Detected H (NotDetected) Influenza Type A (PCR) (Not Detectd) Influenza Type B (PCR) (Not Detectd) RSV (PCR) (Not Detectd) SARS-CoV-2 (PCR) (Not Detectd) 06/20/23 Range/Units 17:17 WBC (3.8-10.6) k/uL RBC (4.30-5.90) m/uL Hgb (13.0-17.5) gm/dL Hct (39.0-53.0) % MCV (80.0-100.0) fL MCH (25.0-35.0) pg MCHC (31.0-37.0) g/dL RDW (11.5-15.5) % Plt Count (150-450) k/uL MPV Neutrophils % % Lymphocytes % % Monocytes % % Eosinophils % % Basophils % % Neutrophils # (1.3-7.7) k/uL Lymphocytes # (1.0-4.8) k/uL Monocytes # (0-1.0) k/uL Eosinophils # (0-0.7) k/uL Basophils # (0-0.2) k/uL Hypochromasia Anisocytosis PT (10.0-12.5) sec INR (<1.2) APTT (22.0-30.0) sec Sodium (137-145) mmol/L Potassium (3.5-5.1) mmol/L Chloride (98-107) mmol/L Carbon Dioxide (22-30) mmol/L Anion Gap mmol/L BUN (9-20) mg/dL Creatinine (0.66-1.25) mg/dL Est GFR (CKD-EPI)AfAm (>60 ml/min/1.73 sqM) Est GFR (CKD-EPI)NonAf (>60 ml/min/1.73 sqM) Glucose (74-99) mg/dL Plasma Lactic Acid Jermain 1.2 (0.7-2.0) mmol/L Calcium (8.4-10.2) mg/dL Total Bilirubin (0.2-1.3) mg/dL AST (17-59) U/L ALT (4-49) U/L Alkaline Phosphatase (38-126) U/L Troponin I (0.000-0.034) ng/mL Total Protein (6.3-8.2) g/dL Albumin (3.5-5.0) g/dL Urine Color Urine Appearance (Clear) Urine pH (5.0-8.0) Ur Specific [place] (1.001-1.035) Urine Protein (Negative) Urine Glucose (UA) (Negative) Urine Ketones (Negative) Urine Blood (Negative) Urine Nitrite (Negative) Urine Bilirubin (Negative) Urine Urobilinogen (<2.0) mg/dL Ur Leukocyte Esterase (Negative) Urine RBC (0-5) /hpf Urine WBC (0-5) /hpf Urine WBC Clumps (None) /hpf Ur Squamous Epith Cells (0-4) /hpf Urine Mucus (None) /hpf Ur Yeast w Hyphae (None) /hpf Urine Yeast (Budding) (None) /hpf Urine Opiates Screen (NotDetected) Ur Oxycodone Screen (NotDetected) Urine Methadone Screen (NotDetected) Ur Barbiturates Screen (NotDetected) U Tricyclic Antidepress (NotDetected) Ur Phencyclidine Scrn (NotDetected) Ur Amphetamines Screen (NotDetected) U Methamphetamines Scrn (NotDetected) U Benzodiazepines Scrn (NotDetected) Urine Cocaine Screen (NotDetected) U Marijuana (THC) Screen (NotDetected) Influenza Type A (PCR) (Not Detectd) Influenza Type B (PCR) (Not Detectd) RSV (PCR) (Not Detectd) SARS-CoV-2 (PCR) (Not Detectd) Disposition Clinical Impression: UTI (urinary tract infection), Weakness, Lethargy, Substance abuse Disposition: ADMITTED IP TO THIS [facility] Condition: Good Referrals: Benjamin Mendez MD [Primary Care Provider] - 1-2 days Decision to Admit Reason: Admit from EC Decision Time: 20:25
[2023-06-20 15:51] LABS: Anisocytosis Slight; Basophils # (A) 0.1 k/uL (0-0.2); Basophils % (A) 1 %; Eosinophils # (A) 0.7 k/uL (0-0.7); Eosinophils % (A) 5 %; HCT 32.8 % (39.0-53.0); HGB 10.5 gm/dL (13.0-17.5); Hypochromasia Slight; Lymphocytes # (A) 1.8 k/uL (1.0-4.8); Lymphocytes % (A) 13 %; MCH 26.5 pg (25.0-35.0); MCV 82.9 fL (80.0-100.0); Mean Platelet Volume 7.1; Monocytes # (A) 0.6 k/uL (0-1.0); Monocytes % (A) 5 %; Neutrophils # (A) 10.3 k/uL (1.3-7.7); Neutrophils % (A) 76 %; Platelet Count 296 k/uL (150-450); RBC 3.96 m/uL (4.30-5.90); RDW 16.6 % (11.5-15.5); WBC 13.6 k/uL (3.8-10.6)
[2023-06-20 16:02] LABS: Appearance,Urine Turbid (Clear); Bilirubin,Urine Negative (Negative); Blood,Urine Large (Negative); Budding Yeast,Urine Many /hpf; Color,Urine Yellow; Glucose,Urine (UA) Negative (Negative); Hyphae Yeast, Urine Occasional /hpf; Ketones,Urine Negative (Negative); Leukocyte Esterase,Urine Large (Negative); Mucus,Urine Many /hpf; Nitrite,Urine Negative (Negative); PH, Urine 6.5 (5.0-8.0); Partial Thromboplastin Time 28.3 sec (22.0-30.0); Protein,Urine 1+ (Negative); Prothrombin Time 10.9 sec (10.0-12.5); RBC,Urine >182 /hpf (0-5); Specific Gravity,Urine 1.017 (1.001-1.035); Squamous Epithelial Cell,Urine 4 /hpf (0-4); Urobilinogen,Urine <2.0 mg/dL (<2.0); WBC,Urine >182 /hpf (0-5)
[2023-06-20 16:04] LABS: ALT 12 U/L (4-49); AST 16 U/L (17-59); African American GFR (CKD) >90 (>60 ml/min/1.73 sqM); Albumin 2.9 g/dL (3.5-5.0); Alkaline Phosphatase 75 U/L (38-126); Anion Gap 4 mmol/L; Blood Urea Nitrogen 8 mg/dL (9-20); Calcium 8.1 mg/dL (8.4-10.2); Carbon Dioxide 28 mmol/L (22-30); Chloride 100 mmol/L (98-107); Glucose 192 mg/dL (74-99); Non-African American GFR(CKD) >90 (>60 ml/min/1.73 sqM); Potassium 3.6 mmol/L (3.5-5.1); Sodium 132 mmol/L (137-145); Total Bilirubin 0.4 mg/dL (0.2-1.3); Total Protein 6.2 g/dL (6.3-8.2)
[2023-06-20 16:27] LABS: Amphetamine Screen,Urine Detected (NotDetected); Barbiturate Screen,Urine Not Detected (NotDetected); Benzodiazepines Screen,Urine Detected (NotDetected); Cocaine Screen,Urine Not Detected (NotDetected); Methadone Screen, Urine Not Detected (NotDetected); Opiate Screen,Urine Detected (NotDetected); Oxycodone Screen, Urine Not Detected (NotDetected); Phencyclidine Screen,Urine Not Detected (NotDetected); Tricyclic Antidepressant,Urine Not Detected (NotDetected); Urn Cannabinoid Scrn Detected (NotDetected)
[2023-06-20] MEDS ORDERED: metroNIDAZOLE-NS PMX 500 MG in SALINE 1 100ML.BAG IVPB STA (20:20)
[2023-06-20] MEDS ORDERED: cefTRIAXone IN SWFI 1,000 MG/10 ML SYRINGE IVP STA (20:20)
[2023-06-20] MEDS ORDERED: NALOXONE 0.4 MG/ML 1 ML VIAL IV PRN (20:25)
[2023-06-20] MEDS: SODIUM CHLORIDE 0.9% 1,000 ML IV SCH (20:50)
[2023-06-21] MEDS: SODIUM CHLORIDE 0.9% 1,000 ML IV SCH ×2 (04:50→11:42)
[2023-06-21 04:57] LABS: Glucose,Whole Blood 170 mg/dL (70-110)
[2023-06-21 07:44] LABS: Anisocytosis Slight; Basophils # (A) 0.1 k/uL (0-0.2); Basophils % (A) 1 %; Eosinophils # (A) 0.8 k/uL (0-0.7); Eosinophils % (A) 9 %; Hypochromasia Slight; Lymphocytes # (A) 1.6 k/uL (1.0-4.8); Lymphocytes % (A) 18 %; MCH 26.4 pg (25.0-35.0); MCHC 31.4 g/dL (31.0-37.0); Mean Platelet Volume 7.4; Monocytes # (A) 0.6 k/uL (0-1.0); Monocytes % (A) 6 %; Neutrophils % (A) 65 %; Platelet Count 284 k/uL (150-450); RBC 4.16 m/uL (4.30-5.90); RDW 16.6 % (11.5-15.5); WBC 9.1 k/uL (3.8-10.6)
[2023-06-21 07:48] LABS: African American GFR (CKD) >90 (>60 ml/min/1.73 sqM); Anion Gap 3 mmol/L; Blood Urea Nitrogen 6 mg/dL (9-20); Calcium 8.2 mg/dL (8.4-10.2); Carbon Dioxide 26 mmol/L (22-30); Chloride 109 mmol/L (98-107); Glucose 201 mg/dL (74-99); Non-African American GFR(CKD) >90 (>60 ml/min/1.73 sqM); Potassium 3.8 mmol/L (3.5-5.1); Sodium 138 mmol/L (137-145)
[2023-06-21 10:33] LABS: Glucose,Whole Blood 217 mg/dL (70-110)
--- NOTE | 2023-06-21 11:07 | P.GSCN ---
History of Present Illness Consult date: 06/21/23 Reason for Consult: Right RYAN Requesting physician: Shannon Smith History of present illness: This is a 63-year-old white male who was brought in by EMS after his son's had called 911 due to the patient being lethargic. His past medical history including diabetes mellitus, diabetic neuropathy, bedridden, current smoker, chronic sacral wound and nonhealing lower extremity infected wounds with bilateral yqmrq-[id number] amputations. According to the emergency department notes patient had denied any drug use however patient's urine was positive for methamphetamines, amphetamines, opiates, benzodiazepines and marijuana. Last amputation was done by Dr. Zee on 05/26/2023. He went home with a PICC line and was supposed to be on IV antibiotics however has not been getting any antibiotics due to transportation issues. Patient does not have any insurance. He also has a chronic sacral wound. Patient currently denies any pain or any complaints. States he wants to be discharged and he did not need to be admitted to the hospital. He did not make his follow-up appointment with Dr. Zee as scheduled status post right [id number] amputation. He denies any fever, chills, abdominal pain, chest pain, shortness of breath, pain in the lower extremities, drainage or redness at surgical site. He currently has a PICC line in place. Review of Systems A 14 point review systems was completed all pertinent positives and negatives as stated in the HPI. Past Medical History Past Medical History: Diabetes Mellitus Additional Past Medical History / Comment(s): pressure ulcers[Buttock,simone heals ,rt lateral foot]. BLOOD "ECOLI" INFECTION. History of Any Multi-Drug Resistant Organisms: None Reported Past Surgical History: Orthopedic Surgery Additional Past Surgical History / Comment(s): back pain son states pt recently "slipped a disc" taking gabapentin. Left leg above the knee amputation. MICHELLE PICC LINE. Past Anesthesia/Blood Transfusion Reactions: No Reported Reaction Past Psychological History: No Psychological Hx Reported Smoking Status: Current every day smoker Past Alcohol Use History: Rare Past Drug Use History: None Reported Medications and Allergies Home Medications Medication Instructions Recorded Confirmed Type INSULIN ASPART (NovoLOG) [NovoLOG See Protocol SQ AC-TID PRN 09/11/22 06/20/23 History (formulary)] HYDROcodone/APAP 10-325MG [[place] 1 tab PO QID PRN #12 tab 05/31/23 06/20/23 Rx 10-325] Allergies Allergy/AdvReac Type Severity Reaction Status Date / Time No Known Allergies Allergy Verified 06/20/23 17:50 Surgical - Exam Vital Signs Temp Pulse Resp BP Pulse Ox 98.7 F 93 20 105/82 98 06/20/23 14:36 06/20/23 14:36 06/20/23 14:36 06/20/23 14:36 06/20/23 14:36 General appearance: The patient is alert, oriented, appears in no acute distress. HET: Head is normocephalic and atraumatic. Pupils are equal and reactive. Neck: Supple. Heart: Regular. Lungs: Equal expansion, normal respiratory effort. Abdomen: Soft, nontender, nondistended. Extremities: Normal skin color and turgor. Bilateral [id number] amput ations. Left AKA stump well-healed. Right AKA stump surgical site well- approximated with rosetta, healed, no redness or drainage. Neurological: No focal deficits. Alert and oriented. Results - Labs 06/21/23 07:40 06/21/23 06:29 Abnormal Lab Results - Last 24 Hours (Table) 06/20/23 06/20/23 06/20/23 Range/Units 14:57 14:57 14:57 WBC 13.6 H (3.8-10.6) k/uL RBC 3.96 L (4.30-5.90) m/uL Hgb 10.5 L (13.0-17.5) gm/dL Hct 32.8 L (39.0-53.0) % RDW 16.6 H (11.5-15.5) % Neutrophils # 10.3 H (1.3-7.7) k/uL Eosinophils # (0-0.7) k/uL Sodium 132 L (137-145) mmol/L Chloride (98-107) mmol/L BUN 8 L (9-20) mg/dL Creatinine 0.35 L (0.66-1.25) mg/dL Glucose 192 H (74-99) mg/dL POC Glucose (mg/dL) (70-110) mg/dL Calcium 8.1 L (8.4-10.2) mg/dL AST 16 L (17-59) U/L Total Protein 6.2 L (6.3-8.2) g/dL Albumin 2.9 L (3.5-5.0) g/dL Urine Protein 1+ H (Negative) Urine Blood Large H (Negative) Ur Leukocyte Esterase Large H (Negative) Urine RBC >182 H (0-5) /hpf Urine WBC >182 H (0-5) /hpf Urine WBC Clumps Moderate H (None) /hpf Urine Mucus Many H (None) /hpf Urine Yeast (Budding) Many H (None) /hpf Urine Opiates Screen Detected H (NotDetected) Ur Amphetamines Screen Detected H (NotDetected) U Methamphetamines Scrn Detected H (NotDetected) U Benzodiazepines Scrn Detected H (NotDetected) U Marijuana (THC) Screen Detected H (NotDetected) 06/21/23 06/21/23 06/21/23 Range/Units 04:56 06:29 07:40 WBC (3.8-10.6) k/uL RBC 4.16 L (4.30-5.90) m/uL Hgb 11.0 L (13.0-17.5) gm/dL Hct 35.0 L (39.0-53.0) % RDW 16.6 H (11.5-15.5) % Neutrophils # (1.3-7.7) k/uL Eosinophils # 0.8 H (0-0.7) k/uL Sodium (137-145) mmol/L Chloride 109 H (98-107) mmol/L BUN 6 L (9-20) mg/dL Creatinine 0.31 L (0.66-1.25) mg/dL Glucose 201 H (74-99) mg/dL POC Glucose (mg/dL) 170 H (70-110) mg/dL Calcium 8.2 L (8.4-10.2) mg/dL AST (17-59) U/L Total Protein (6.3-8.2) g/dL Albumin (3.5-5.0) g/dL Urine Protein (Negative) Urine Blood (Negative) Ur Leukocyte Esterase (Negative) Urine RBC (0-5) /hpf Urine WBC (0-5) /hpf Urine WBC Clumps (None) /hpf Urine Mucus (None) /hpf Urine Yeast (Budding) (None) /hpf Urine Opiates Screen (NotDetected) Ur Amphetamines Screen (NotDetected) U Methamphetamines Scrn (NotDetected) U Benzodiazepines Scrn (NotDetected) U Marijuana (THC) Screen (NotDetected) Diabetes panel 06/20/23 06/21/23 Range/Units 14:57 06:29 Sodium 132 L 138 (137-145) mmol/L Potassium 3.6 3.8 (3.5-5.1) mmol/L Chloride 100 109 H (98-107) mmol/L Carbon Dioxide 28 26 (22-30) mmol/L BUN 8 L 6 L (9-20) mg/dL Creatinine 0.35 L 0.31 L (0.66-1.25) mg/dL Glucose 192 H 201 H (74-99) mg/dL Calcium 8.1 L 8.2 L (8.4-10.2) mg/dL AST 16 L (17-59) U/L ALT 12 (4-49) U/L Alkaline Phosphatase 75 (38-126) U/L Total Protein 6.2 L (6.3-8.2) g/dL Albumin 2.9 L (3.5-5.0) g/dL Calcium panel 06/20/23 06/21/23 Range/Units 14:57 06:29 Calcium 8.1 L 8.2 L (8.4-10.2) mg/dL Albumin 2.9 L (3.5-5.0) g/dL Pituitary panel 06/20/23 06/21/23 Range/Units 14:57 06:29 Sodium 132 L 138 (137-145) mmol/L Potassium 3.6 3.8 (3.5-5.1) mmol/L Chloride 100 109 H (98-107) mmol/L Carbon Dioxide 28 26 (22-30) mmol/L BUN 8 L 6 L (9-20) mg/dL Creatinine 0.35 L 0.31 L (0.66-1.25) mg/dL Glucose 192 H 201 H (74-99) mg/dL Calcium 8.1 L 8.2 L (8.4-10.2) mg/dL Adrenal panel 06/20/23 06/21/23 Range/Units 14:57 06:29 Sodium 132 L 138 (137-145) mmol/L Potassium 3.6 3.8 (3.5-5.1) mmol/L Chloride 100 109 H (98-107) mmol/L Carbon Dioxide 28 26 (22-30) mmol/L BUN 8 L 6 L (9-20) mg/dL Creatinine 0.35 L 0.31 L (0.66-1.25) mg/dL Glucose 192 H 201 H (74-99) mg/dL Calcium 8.1 L 8.2 L (8.4-10.2) mg/dL Total Bilirubin 0.4 (0.2-1.3) mg/dL AST 16 L (17-59) U/L ALT 12 (4-49) U/L Alkaline Phosphatase 75 (38-126) U/L Total Protein 6.2 L (6.3-8.2) g/dL Albumin 2.9 L (3.5-5.0) g/dL Assessment and Plan Assessment: 1. Weakness and lethargy 2. Recent history of right nxhpy-xvg-[id number] amputation done 05/26/2023 3. Medical noncompliance 4. Drug abuse. Urine drug screen positive for methamphetamines, benzodiazepines, opiates and marijuana 5. History of nonhealing lower extremity wounds 6. History of left xvfls-[id number] amputation 7. Diabetes mellitus 8. Chronic sacral wound Plan: Patient is here for reported weakness and found to be lethargic. He was positive for multiple drugs in his urine drug screen. He has postop for right qmpza-ojy-osmo amputation done 05/26/2023 with well-healed surgical incision with rosetta which have been removed. There is no further indication for any vascular surgical intervention. It was discussed with patient importance for medical compliance. Recommend smoking cessation and abstinence from drug use. Thank you for this consultation, we will sign off at this time. The impression and plan of care has been dictated as directed. I performed a history and examination of this patient, discussed the same with the dictator. I agree with the dictator's note ,documented as a scribe. Any additional findings or plans will be noted.
[2023-06-21] MEDS ORDERED: HYDROcodone/APAP 10-325MG 1 EACH TAB PO PRN (11:17)
[2023-06-21] MEDS ORDERED: DEXTROSE 50% SYRINGE 50 ML IVP PRN ×2 (11:18)
[2023-06-21] MEDS ORDERED: ENOXAPARIN 40 MG/0.4 ML SYRINGE SQ SCH (11:30)
[2023-06-21 11:38] LABS: Glucose,Whole Blood 195 mg/dL (70-110)
[2023-06-21] MEDS ORDERED: INSULIN ASPART (NovoLOG) 100 UNIT/ML VIAL SQ SCH (12:30)
--- NOTE | 2023-06-21 14:24 | P.HPIM ---
History of Present Illness H&P Date: 06/20/23 Chief Complaint: Very tired This is a 63-year-old patient, follows with Dr. Mendez. Chronic stable medical conditions include ADHD, herniated disc lower back, smoker. Sacral wounds. Left RYAN Patient was recently in the hospital from May 23 through June 03. Patient had chronic wounds including sacral decubitus and patient's continued to vape and smoke cigarettes. During the admission patient underwent sacral wound debridement by Dr. Marshall. And underwent right above-knee amputation by Dr. Zee on May 26. Received IV Unasyn and IV vancomycin. Also was seen by Dr. Bahena from the wound care center. There was also discussion about diverting colostomy. Patient was discharged on 2 g of IV ceftriaxone for 6 weeks with a PICC line. [facility] arranged. Supposed to come every day for his antibiotics. Following Tuesday after discharge patient supposed to have his diabetic colostomy done. Patient now presents to the ER feeling extremely weak. Tired. Lethargic. He lives with his son. He tells me his appetite is okay. Just feels very tired. No fever no chills. He missed his IV antibiotics for last 3 to 4 days. No diarrhea. No shortness of breath. Does smoke a few cigarettes a day. Urine drug screen back positive for multiple drugs. Review of systems: GEN.: Sleepy tired EYES: None HEENT: None NECK: None RESPIRATORY: None CARDIOVASCULAR: None GASTROINTESTINAL: None GENITOURINARY: None MUSCULOSKELETAL: None LYMPHATICS: None HEMATOLOGICAL: None PSYCHIATRY: None NEUROLOGICAL: None Past medical history to include: Diabetes, possible ADHD, chronic low back pain, herniated disc, atrial fibrillation. COPD. left above-knee amputation. Right below-knee amputation. Social history: Son lives with the patient. 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 Smokes about a pack a day, now down to a few cigarettes a day. Alcohol occasionally. Physical examination: VITAL SIGNS: 98.7, 93, 20, 105/82, 98% room air GENERAL: Laying in bed a bit lethargic EYES: Pupils equal. Conjunctiva normal. HEENT: External appearance of nose and ears normal, oral cavity grossly normal. NECK: JVD not raised; masses not palpable. HEART: First and second heart sounds are normal; no edema. LUNGS: Respiratory rate normal; decreased breath sounds. ABDOMEN: Soft, nontender, liver spleen not palpable, no masses palpable. PSYCH: Lethargic but able to awaken answer questions. l. MUSCULOSKELETAL: Left AKA. Right above-knee amputation, incisions with rosetta healing well. Sacral wound. NEUROLOGICAL: AOx3. Per sensation grossly intact. INVESTIGATIONS, reviewed in the clinical context: June 20, 2023: White count 13.6 hemoglobin 10.5 platelets 296 sodium 132 potassium 3.6 BUN 8 creatinine 0.35 Urine drug screen: Positive for opiates, amphetamines, methamphetamines, benzodiazepine, marijuana Influenza type A, type B, RSV, COVID-19: Not detected EKG tracing personally reviewed by me-normal sinus rhythm. Ultrasound arterial lower extremity moderate right PAD with ankle brachial indices Assessment and plan: -Acute metabolic encephalopathy from multiple recreational drugs positive in the urine including opiates, amphetamines, methamphetamines, benzodiazepine, marijuana. -Right above-knee amputation by Dr. Zee on May 26. Cultures grew multiple organisms. Patient was discharged on June 03 with IV ceftriaxone with a PICC line for 6 weeks. Patient states he has not received medications for last 3 to 4 days. -Sacral decubitus ulcer. With acute osteomyelitis. Patient was supposed to follow-up with Dr. Pabon for diverting colostomy. Never followed up with the same. -Left AKA -Paroxysmal atrial fibrillation: sinus rhythm Amiodarone. Lopressor. -Acute postprocedure blood loss anemia expected from surgery, from last admission -Diabetes mellitus type 2, chronically on insulin Follow Accu-Cheks. -COPD in a current smoker Bronchodilators as needed -Chronic nicotine dependence, cigarette smoker Nicotine patch -Chronic medical debility. Non-ambulatory -Full code Consultations made to ID, vascular Dr. Zee. Patient advised against use of recreational drugs. Past Medical History Past Medical History: Diabetes Mellitus Additional Past Medical History / Comment(s): pressure ulcers buttock,simone heals ,rt lateral foot History of Any Multi-Drug Resistant Organisms: None Reported Past Surgical History: Orthopedic Surgery Additional Past Surgical History / Comment(s): back pain son states pt recently "slipped a disc" taking gabapentin. Left leg above the knee amputation, Past Psychological History: No Psychological Hx Reported Smoking Status: Current every day smoker Past Alcohol Use History: Rare Past Drug Use History: None Reported Past Medical History Past Medical History: Diabetes Mellitus Additional Past Medical History / Comment(s): pressure ulcers[Buttock,simone heals ,rt lateral foot]. BLOOD "ECOLI" INFECTION. History of Any Multi-Drug Resistant Organisms: None Reported Past Surgical History: Orthopedic Surgery Additional Past Surgical History / Comment(s): back pain son states pt recently "slipped a disc" taking gabapentin. Left leg above the knee amputation. MICHELLE PICC LINE. Past Anesthesia/Blood Transfusion Reactions: No Reported Reaction Past Psychological History: No Psychological Hx Reported Smoking Status: Current every day smoker Past Alcohol Use History: Rare Past Drug Use History: None Reported Medications and Allergies Home Medications Medication Instructions Recorded Confirmed Type INSULIN ASPART (NovoLOG) [NovoLOG See Protocol SQ AC-TID PRN 09/11/22 06/20/23 History (formulary)] HYDROcodone/APAP 10-325MG [[place] 1 tab PO QID PRN #12 tab 05/31/23 06/20/23 Rx 10-325] Allergies Allergy/AdvReac Type Severity Reaction Status Date / Time No Known Allergies Allergy Verified 06/20/23 17:50 Physical Exam Vitals: Vital Signs Temp Pulse Resp BP Pulse Ox 06/21/23 11:34 97 14 143/92 97 06/21/23 10:00 102 H 16 131/76 96 06/21/23 08:52 83 18 131/76 96 06/21/23 06:00 87 18 137/74 95 06/21/23 05:45 85 17 133/76 99 06/21/23 04:54 97.6 F 06/21/23 04:30 82 16 143/81 99 06/21/23 02:30 81 21 128/73 100 06/21/23 00:30 85 12 137/80 95 06/20/23 22:30 90 16 128/75 99 06/20/23 20:44 98 20 135/78 99 06/20/23 18:09 99.4 F 95 20 131/75 100 06/20/23 16:21 98.7 F 93 24 153/75 98 06/20/23 14:36 98.7 F 93 20 105/82 98 Intake and Output 06/20/23 06/21/23 06/21/23 22:59 06:59 14:59 Output Total 1200 Balance -1200 Output: Urine 1200 Uretheral (Zee) 1200 Results CBC & Chem 7: 06/21/23 07:40 06/21/23 06:29 Labs: Abnormal Lab Results - Last 24 Hours (Table) 06/20/23 06/20/23 06/20/23 Range/Units 14:57 14:57 14:57 WBC 13.6 H (3.8-10.6) k/uL RBC 3.96 L (4.30-5.90) m/uL Hgb 10.5 L (13.0-17.5) gm/dL Hct 32.8 L (39.0-53.0) % RDW 16.6 H (11.5-15.5) % Neutrophils # 10.3 H (1.3-7.7) k/uL Eosinophils # (0-0.7) k/uL Sodium 132 L (137-145) mmol/L Chloride (98-107) mmol/L BUN 8 L (9-20) mg/dL Creatinine 0.35 L (0.66-1.25) mg/dL Glucose 192 H (74-99) mg/dL POC Glucose (mg/dL) (70-110) mg/dL Calcium 8.1 L (8.4-10.2) mg/dL AST 16 L (17-59) U/L Total Protein 6.2 L (6.3-8.2) g/dL Albumin 2.9 L (3.5-5.0) g/dL Urine Protein 1+ H (Negative) Urine Blood Large H (Negative) Ur Leukocyte Esterase Large H (Negative) Urine RBC >182 H (0-5) /hpf Urine WBC >182 H (0-5) /hpf Urine WBC Clumps Moderate H (None) /hpf Urine Mucus Many H (None) /hpf Urine Yeast (Budding) Many H (None) /hpf Urine Opiates Screen Detected H (NotDetected) Ur Amphetamines Screen Detected H (NotDetected) U Methamphetamines Scrn Detected H (NotDetected) U Benzodiazepines Scrn Detected H (NotDetected) U Marijuana (THC) Screen Detected H (NotDetected) 06/21/23 06/21/23 06/21/23 Range/Units 04:56 06:29 07:40 WBC (3.8-10.6) k/uL RBC 4.16 L (4.30-5.90) m/uL Hgb 11.0 L (13.0-17.5) gm/dL Hct 35.0 L (39.0-53.0) % RDW 16.6 H (11.5-15.5) % Neutrophils # (1.3-7.7) k/uL Eosinophils # 0.8 H (0-0.7) k/uL Sodium (137-145) mmol/L Chloride 109 H (98-107) mmol/L BUN 6 L (9-20) mg/dL Creatinine 0.31 L (0.66-1.25) mg/dL Glucose 201 H (74-99) mg/dL POC Glucose (mg/dL) 170 H (70-110) mg/dL Calcium 8.2 L (8.4-10.2) mg/dL AST (17-59) U/L Total Protein (6.3-8.2) g/dL Albumin (3.5-5.0) g/dL Urine Protein (Negative) Urine Blood (Negative) Ur Leukocyte Esterase (Negative) Urine RBC (0-5) /hpf Urine WBC (0-5) /hpf Urine WBC Clumps (None) /hpf Urine Mucus (None) /hpf Urine Yeast (Budding) (None) /hpf Urine Opiates Screen (NotDetected) Ur Amphetamines Screen (NotDetected) U Methamphetamines Scrn (NotDetected) U Benzodiazepines Scrn (NotDetected) U Marijuana (THC) Screen (NotDetected) 06/21/23 06/21/23 Range/Units 10:32 11:36 WBC (3.8-10.6) k/uL RBC (4.30-5.90) m/uL Hgb (13.0-17.5) gm/dL Hct (39.0-53.0) % RDW (11.5-15.5) % Neutrophils # (1.3-7.7) k/uL Eosinophils # (0-0.7) k/uL Sodium (137-145) mmol/L Chloride (98-107) mmol/L BUN (9-20) mg/dL Creatinine (0.66-1.25) mg/dL Glucose (74-99) mg/dL POC Glucose (mg/dL) 217 H 195 H (70-110) mg/dL Calcium (8.4-10.2) mg/dL AST (17-59) U/L Total Protein (6.3-8.2) g/dL Albumin (3.5-5.0) g/dL Urine Protein (Negative) Urine Blood (Negative) Ur Leukocyte Esterase (Negative) Urine RBC (0-5) /hpf Urine WBC (0-5) /hpf Urine WBC Clumps (None) /hpf Urine Mucus (None) /hpf Urine Yeast (Budding) (None) /hpf Urine Opiates Screen (NotDetected) Ur Amphetamines Screen (NotDetected) U Methamphetamines Scrn (NotDetected) U Benzodiazepines Scrn (NotDetected) U Marijuana (THC) Screen (NotDetected)
[2023-06-21 15:54] VITALS: BP 164/73; PULSE 90; RESP 18; TEMP 98.7
--- NOTE | 2023-06-21 19:47 | P.DS ---
Providers Date of admission: 06/20/23 20:42 Expected date of discharge: 06/21/23 Attending physician: Jerardo Guillen Consults: 06/20/23 20:31 Consult Physician Routine Consulting Provider: Barbara Zee Consult Reason/Comments: R BKA Do you want consulting provider notified?: Yes, Notify in am 06/21/23 11:20 Consult Physician Routine Consulting Provider: Jim Eugene Consult Reason/Comments: recent infection Do you want consulting provider notified?: Yes Primary care physician: [facility] Course: Chief Complaint: Very tired This is a 63-year-old patient, follows with Dr. Mendez. Chronic stable medical conditions include ADHD, herniated disc lower back, smoker. Sacral wounds. Left AKA Patient was recently in the hospital from May 23 through June 03. Patient had chronic wounds including sacral decubitus and patient's continued to vape and smoke cigarettes. During the admission patient underwent sacral wound debridement by Dr. Marshall. And underwent right above-knee amputation by Dr. Zee on May 26. Received IV Unasyn and IV vancomycin. Also was seen by Dr. Bahena from the wound care center. There was also discussion about diverting colostomy. Patient was discharged on 2 g of IV ceftriaxone for 6 weeks with a PICC line. [facility] was arranged. Supposed to come every day for his antibiotics. Following Tuesday after discharge patient supposed to have his diabetic colostomy done. Patient now presents to the ER feeling extremely weak. Tired. Lethargic. He lives with his son. He tells me his appetite is okay. Just feels very tired. No fever no chills. He missed his IV antibiotics for last 3 to 4 days. No diarrhea. No shortness of breath. Does smoke a few cigarettes a day. Urine drug screen back positive for multiple drugs. June 21, 2023: Patient far more awake today. Recreational drugs coming out of the system. Eating well. Wants to go home. Spoke to ID. It was discovered after he communicated with social service liaison that patient not even gone once for the antibiotics. Patient is a PICC line. Now not felt safe to discharge about the same. As you could remain noncompliant. Patient to be therefore discharged on Augmentin for 4 days. Patient to follow-up with Dr. Zee and wound care center Dr. Bahena. This was reinforced with the patient. Carl removed from the right leg stump. Discussion and discharge planning more than 35 minutes Past medical history to include: Diabetes, possible ADHD, chronic low back pain, herniated disc, atrial fibrillation. COPD. left above-knee amputation. Right below-knee amputation. Social history: Son lives with the patient. 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 Smokes about a pack a day, now down to a few cigarettes a day. Alcohol occasionally. Physical examination: VITAL SIGNS: 98.7, 90, 18, 164/73, 96% room air GENERAL: Laying in bed for more awake EYES: Pupils equal. Conjunctiva normal. HEENT: External appearance of nose and ears normal, oral cavity grossly normal. NECK: JVD not raised; masses not palpable. HEART: First and second heart sounds are normal; no edema. LUNGS: Respiratory rate normal; decreased breath sounds. ABDOMEN: Soft, nontender, liver spleen not palpable, no masses palpable. PSYCH: Answering questions appropriately MUSCULOSKELETAL: Left AKA. Right above-knee amputation, carl removed. Sacral wound. NEUROLOGICAL: AOx3. Per sensation grossly intact. INVESTIGATIONS, reviewed in the clinical context: June 21, 2023: White count 9.1 hemoglobin 11 platelets 284 potassium 3.8 BUN 6 creatinine 0.31 June 20, 2023: White count 13.6 hemoglobin 10.5 platelets 296 sodium 132 potassium 3.6 BUN 8 creatinine 0.35 Urine drug screen: Positive for opiates, amphetamines, methamphetamines, benzodiazepine, marijuana Influenza type A, type B, RSV, COVID-19: Not detected EKG tracing personally reviewed by me-normal sinus rhythm. Ultrasound arterial lower extremity moderate right PAD with ankle brachial indices Assessment and plan: -Acute metabolic encephalopathy from multiple recreational drugs positive in the urine including opiates, amphetamines, methamphetamines, benzodiazepine, marijuana.: Improved Patient advised against the use of the same -Right above-knee amputation by Dr. Zee on May 26. Cultures grew multiple organisms. Patient was discharged on June 03 with IV ceftriaxone with a PICC line for 6 weeks. Patient never showed up for his IV antibiotics. PICC line being removed. Augmentin 875 twice daily for 4 weeks -Sacral decubitus ulcer. With acute osteomyelitis. Patient was supposed to follow-up with Dr. Pabon for diverting colostomy. Never followed up with the same. Patient to follow-up with Dr. Pabon -Left AKA -Paroxysmal atrial fibrillation: sinus rhythm Amiodarone. Lopressor. -Acute postprocedure blood loss anemia expected from surgery, from last admission -Diabetes mellitus type 2, chronically on insulin Follow Accu-Cheks. -COPD in a current smoker Bronchodilators as needed -Chronic nicotine dependence, cigarette smoker Nicotine patch -Chronic medical debility. Non-ambulatory -Full code Disposition: Home Past Medical History Past Medical History: Diabetes Mellitus Additional Past Medical History / Comment(s): pressure ulcers buttock,simone heals ,rt lateral foot History of Any Multi-Drug Resistant Organisms: None Reported Past Surgical History: Orthopedic Surgery Additional Past Surgical History / Comment(s): back pain son states pt recently "slipped a disc" taking gabapentin. Left leg above the knee amputation, Past Psychological History: No Psychological Hx Reported Smoking Status: Current every day smoker Past Alcohol Use History: Rare Past Drug Use History: None Reported Plan - Discharge Summary New Discharge Prescriptions: New Amoxic-Pot Clav 875-125Mg [Augmentin 875-125] 1 tab PO Q12HR #56 tab Continue INSULIN ASPART (NovoLOG) [NovoLOG (formulary)] See Protocol SQ AC-TID PRN PRN Reason: HIGH BLOOD SUGAR HYDROcodone/APAP 10-325MG [[place] 10-325] 1 tab PO QID PRN #12 tab PRN Reason: Pain Discharge Medication List INSULIN ASPART (NovoLOG) [NovoLOG (formulary)] See Protocol SQ AC-TID PRN 09/11/22 [History] HYDROcodone/APAP 10-325MG [[place] 10-325] 1 tab PO QID PRN #12 tab 05/31/23 [Rx] Amoxic-Pot Clav 875-125Mg [Augmentin 875-125] 1 tab PO Q12HR #56 tab 06/21/23 [Rx] Follow up Appointment(s)/Referral(s): Benjamin Mendez MD [Primary Care Provider] - 1-2 days Barbara Zee DO [STAFF PHYSICIAN] - 1 Week Chip Conway DO [Doctor of Osteopathic Medicine] - 1 Week Neal Pabon MD [STAFF PHYSICIAN] - 1 Week (Diverting colostomy) Patient Instructions/Handouts: Acute Wound Care (ED) Activity/Diet/Wound Care/Special Instructions: f/u wound care center DC PICC line before discharge Discharge/Stand Alone Forms: Outpatient Counseling, Inp Substance Abuse Facilities Discharge Disposition: HOME SELF-CARE
== END 2023-06-21 18:11 | disposition home or self-care (01) | DRG 917 ==
LOC: EC 14:34 → 4SSUR 20:42
PROVIDERS: ADMIT Hospitalist; ATTEND Hospitalist
DX: T40.601A Poisoning by unspecified narcotics, accidental (unintentional), initial encounter (principal); G92.8 Other toxic encephalopathy; M46.28 Osteomyelitis of vertebra, sacral and sacrococcygeal region; D62 Acute posthemorrhagic anemia; L89.159 Pressure ulcer of sacral region, unspecified stage; E11.40 Type 2 diabetes mellitus with diabetic neuropathy, unspecified; E11.69 Type 2 diabetes mellitus with other specified complication; Z89.611 Acquired absence of right leg above knee; Z89.612 Acquired absence of left leg above knee; J44.9 Chronic obstructive pulmonary disease, unspecified; I48.0 Paroxysmal atrial fibrillation; T42.4X1A Poisoning by benzodiazepines, accidental (unintentional), initial encounter; T40.711A Poisoning by cannabis, accidental (unintentional), initial encounter; Z28.310 Unvaccinated for COVID-19; F90.9 Attention-deficit hyperactivity disorder, unspecified type; G89.29 Other chronic pain; M54.50 Low back pain, unspecified; F17.210 Nicotine dependence, cigarettes, uncomplicated; F17.290 Nicotine dependence, other tobacco product, uncomplicated; Z71.6 Tobacco abuse counseling; Z91.199 Patient's noncompliance with other medical treatment and regimen due to unspecified reason; Z74.01 Bed confinement status; Y92.009 Unspecified place in unspecified non-institutional (private) residence as the place of occurrence of the external cause
CPT/HCPCS: 36415; 80048; 80053; 80306; 81001; 83605; 84145; 84484; 85025; 85610; 85730; 87040; 87636; 93005; 96361; 96365; 96372; 96375; 99285

== ENCOUNTER 2023-07-26 15:53 | Inpatient (IN) | payer MEDICARE, OTHER ==
--- NOTE | 2023-07-26 16:48 | ED ---
General Adult HPI - General Chief complaint: Skin/Abscess/Foreign Body Stated complaint: Infection in Buttocks Time Seen by Provider: 07/26/23 16:02 Source: patient, EMS Mode of arrival: EMS Limitations: no limitations - History of Present Illness Initial comments: This patient is 63-year-old man with bilateral above-knee amputations and history of decubitus ulcers. The patient here to have evaluation for worsening related to his ulcers. Patient complains of with fatigue and fevers. He has longstanding sacral and buttock ulcers that apparently are not receiving much in the way of care due to insurance issue. The patient lives with son who provides minimal care. The patient has not documented fevers but has felt warm and has generalized weakness. -: days(s) Location: buttocks Radiation: non-radiation Quality: dull Consistency: constant Improves with: none Worsens with: none Associated Symptoms: fever/chills, malaise, weakness Treatments Prior to Arrival: none - Related Data Home Medications Medication Instructions Recorded Confirmed INSULIN ASPART (NovoLOG) [NovoLOG See Protocol SQ AC-TID PRN 09/11/22 07/26/23 (formulary)] Ascorbic Acid [Vitamin C] 1,000 mg PO DAILY 07/26/23 07/26/23 Ergocalciferol (Vitamin D2) 1,250 mcg PO MO 07/26/23 07/26/23 [Drisdol (50,000 Iu)] Folic Acid 1 mg PO DAILY 07/26/23 07/26/23 Gabapentin [Neurontin] 300 mg PO TID 07/26/23 07/26/23 HYDROcodone/APAP 10-325MG [[place] 1 tab PO QID 07/26/23 07/26/23 10-325] methocarbamoL [Robaxin] 500 mg PO QID 07/26/23 07/26/23 sitaGLIPtin [Januvia] 100 mg PO DAILY 07/26/23 07/26/23 Allergies Allergy/AdvReac Type Severity Reaction Status Date / Time No Known Allergies Allergy Verified 08/02/23 10:19 Review of Systems ROS Statement: Those systems with pertinent positive or pertinent negative responses have been documented in the HPI. ROS Other: All systems not noted in ROS Statement are negative. Constitutional: Reports: fever, weakness. Denies: chills Respiratory: Denies: cough, dyspnea Cardiovascular: Denies: chest pain, palpitations Endocrine: Reports: fatigue Gastrointestinal: Denies: abdominal pain, vomiting, diarrhea Genitourinary: Denies: dysuria, hematuria Musculoskeletal: Denies: back pain Skin: Denies: rash Neurological: Denies: headache, weakness, numbness Past Medical History Past Medical History: Diabetes Mellitus Additional Past Medical History / Comment(s): pressure ulcers[Buttock,simone heals ,rt lateral foot]. BLOOD "ECOLI" INFECTION. History of Any Multi-Drug Resistant Organisms: None Reported Past Surgical History: Orthopedic Surgery Additional Past Surgical History / Comment(s): back pain son states pt recently "slipped a disc" taking gabapentin. Left leg above the knee amputation. MICHELLE PICC LINE. Past Anesthesia/Blood Transfusion Reactions: No Reported Reaction Past Psychological History: No Psychological Hx Reported Smoking Status: Current every day smoker Past Alcohol Use History: Rare Past Drug Use History: None Reported - Past Family History Father Family Medical History: Congestive Heart Failure (CHF), Diabetes Mellitus Mother Family Medical History: Cancer Additional Family Medical History / Comment(s): cancer in spine General Exam Limitations: no limitations General appearance: alert, in no apparent distress Head exam: Present: atraumatic, normocephalic Eye exam: Present: normal appearance. Absent: scleral icterus, conjunctival injection Neck exam: Present: normal inspection Respiratory exam: Present: normal lung sounds bilaterally. Absent: respiratory distress, wheezes, rales, rhonchi, stridor, accessory muscle use Cardiovascular Exam: Present: normal rhythm, tachycardia, normal heart sounds. Absent: systolic murmur, diastolic murmur, rubs, gallop GI/Abdominal exam: Present: soft. Absent: distended, tenderness, guarding, rebound, rigid, mass Extremities exam: Present: normal capillary refill, other (Bilateral above-knee amputations) Back exam: Present: other (Patient does have large stage IV sacral decubitus ulcer and large right buttock stage IV decubitus ulcer) Neurological exam: Present: alert Skin exam: Present: warm, dry, normal color, other (Decubitus ulcers as above) Course Vital Signs 07/26/23 07/26/23 07/27/23 15:59 21:35 00:00 Temperature 99.5 F 98.3 F Pulse Rate 109 H 109 H 91 Respiratory 18 16 18 Rate Blood Pressure 114/72 151/74 137/80 O2 Sat by Pulse 97 99 98 Oximetry 07/27/23 07/27/23 07/27/23 02:00 04:00 06:00 Temperature 98.5 F Pulse Rate 99 102 H 87 Respiratory 18 18 18 Rate Blood Pressure 115/65 140/71 108/69 O2 Sat by Pulse 100 100 98 Oximetry 07/27/23 07/27/23 07/27/23 08:00 10:00 12:00 Temperature Pulse Rate 89 96 96 Respiratory 18 18 18 Rate Blood Pressure 115/64 101/51 125/65 O2 Sat by Pulse 96 100 100 Oximetry 07/27/23 07/27/23 07/27/23 13:00 14:00 15:00 Temperature Pulse Rate 98 89 94 Respiratory Rate Blood Pressure 121/75 121/65 120/70 O2 Sat by Pulse 99 99 99 Oximetry Medical Decision Making - Medical Decision Making This patient is 63-year-old man here to have evaluation for concerns about the condition of his chronic decubitus ulcers and possible mental status change. Was pt. sent in by a medical professional or institution (, PA, RETAIL AREA MANAGER, urgent care, hospital, or snf...) When possible be specific @ -[No] Did you speak to anyone other than the patient for history (EMS, parent, family, police, friend...)? What history was obtained from this source @ -[No] Did you review nursing and triage notes (agree or disagree)? Why? @ -[I reviewed and agree with nursing and triage notes] Were old charts reviewed (outside hosp., previous admission, EMS record, old EKG, old radiological studies, urgent care reports/EKG's, snf records)? Report findings @ -[Yes, old charts were reviewed] Differential Diagnosis (chest pain, altered mental status, abdominal pain women, abdominal pain men, vaginal bleeding, weakness, fever, dyspnea, syncope, headache, dizziness, GI bleed, back pain, seizure, CVA, palpatations, mental health, musculoskeletal)? @ -Differential Fever: Pneumonia, viral URI, endocarditis, myocarditis, pericarditis, otitis, sinusitis, peritonsillar Abscess, retropharyngeal Abscess, epiglottitis, peritonitis, appendicitis, Latrice cystitis, diverticulitis, hepatitis, colitis, UTI, PID, TOA, pyelonephritis, prostatitis, epididymitis, meningitis, encephalitis, pulmonary embolism, CVA, thyroid storm, pancreatitis, adrenal crisis, cavernous sinus thrombosis, this is not meant to be an all-inclusive list. EKG interpreted by me (3pts min.). @ -[As above] X-rays interpreted by me (1pt min.). @ -[None done] CT interpreted by me (1pt min.). @ -[None done] U/S interpreted by me (1pt. min.). @ -[None done] What testing was considered but not performed or refused? (CT, X-rays, U/S, labs)? Why? @ -[None] What meds were considered but not given or refused? Why? @ -[None] Did you discuss the management of the patient with other professionals (professionals i.e. , PA, RETAIL AREA MANAGER, lab, RT, psych nurse, social work coordinator, college sports assistant, teacher, environmental officer, case advocate)? Give summary @ -[Case discussed with admitting physician and treatment recommendations incorporated Was smoking cessation discussed for >3mins.? @ -[No] Was critical care preformed (if so, how long)? @ -[No] Were there social determinants of health that impacted care today? How? (Homelessness, low income, unemployed, alcoholism, drug addiction, transportation, low edu. Level, literacy, decrease access to med. care, care home, rehab)? @ -[No] Was there de-escalation of care discussed even if they declined (Discuss DNR or withdrawal of care, Hospice)? DNR status @ -[No] What co-morbidities impacted this encounter? (DM, HTN, Smoking, COPD, CAD, Cancer, CVA, ARF, Chemo, Hep., AIDS, mental health diagnosis, sleep apnea, morbid obesity)? @ -[Diabetes. Previous amputations Was patient admitted / discharged? Hospital course, mention meds given and route, prescriptions, significant lab abnormalities, going to OR and other pertinent info. @ -[The patient is given fluid bolus, IV antibiotics, will be admitted to have wound care consultation for possible debridement. Undiagnosed new problem with uncertain prognosis? @ -[No] Drug Therapy requiring intensive monitoring for toxicity (Heparin, Nitro, Insulin, Cardizem)? @ -[No] Were any procedures done? @ -[No] Diagnosis/symptom? @ -[Acute hyponatremia Chronic sacral and buttock decubitus ulcers Possible wound infection versus possible osteomyelitis Acute, or Chronic, or Acute on Chronic? @ -[Acute on chronic Uncomplicated (without systemic symptoms) or Complicated (systemic symptoms)? @ -[Uncomplicated Side effects of treatment? @ -[No] Exacerbation, Progression, or Severe Exacerbation? @ -[No] Poses a threat to life or bodily function? How? (Chest pain, [place], [place], pneumonia, PE, COPD, DKA, ARF, appy, cholecystitis, CVA, Diverticulitis, Homicidal, Suicidal, threat to staff... and all critical care pts) @ -[Yes untreated infection may result in - Lab Data Result diagrams: 08/02/23 06:01 08/02/23 09:34 Lab Results 07/26/23 07/26/23 07/26/23 Range/Units 17:06 17:57 17:57 WBC 17.8 H (3.8-10.6) k/uL RBC 4.15 L (4.30-5.90) m/uL Hgb 10.3 L (13.0-17.5) gm/dL Hct 32.9 L (39.0-53.0) % MCV 79.3 L (80.0-100.0) fL MCH 24.8 L (25.0-35.0) pg MCHC 31.3 (31.0-37.0) g/dL RDW 14.9 (11.5-15.5) % Plt Count 522 H (150-450) k/uL MPV 7.1 Neutrophils % 85 % Lymphocytes % 8 % Monocytes % 4 % Eosinophils % 1 % Basophils % 0 % Neutrophils # 15.2 H (1.3-7.7) k/uL Lymphocytes # 1.4 (1.0-4.8) k/uL Monocytes # 0.8 (0-1.0) k/uL Eosinophils # 0.2 (0-0.7) k/uL Basophils # 0.0 (0-0.2) k/uL Sodium 125 L (137-145) mmol/L Potassium 4.7 (3.5-5.1) mmol/L Chloride 96 L (98-107) mmol/L Carbon Dioxide 26 (22-30) mmol/L Anion Gap 3 mmol/L BUN 13 (9-20) mg/dL Creatinine 0.31 L (0.66-1.25) mg/dL Est GFR (CKD-EPI)AfAm >90 (>60 ml/min/1.73 sqM) Est GFR (CKD-EPI)NonAf >90 (>60 ml/min/1.73 sqM) Glucose 281 H (74-99) mg/dL Estimated Ave Glu mg/dL mg/dL Hemoglobin A1c (<=6.0) % Plasma Lactic Acid [place]erm[place] 1.5 (0.7-2.0) mmol/L Calcium 8.2 L (8.4-10.2) mg/dL Total Bilirubin 0.8 (0.2-1.3) mg/dL AST 22 (17-59) U/L ALT 12 (4-49) U/L Alkaline Phosphatase 75 (38-126) U/L C-Reactive Protein 20.8 H (<1.0) mg/dL Total Protein 6.6 (6.3-8.2) g/dL Albumin 2.6 L (3.5-5.0) g/dL 07/26/23 Range/Units 17:57 WBC (3.8-10.6) k/uL RBC (4.30-5.90) m/uL Hgb (13.0-17.5) gm/dL Hct (39.0-53.0) % MCV (80.0-100.0) fL MCH (25.0-35.0) pg MCHC (31.0-37.0) g/dL RDW (11.5-15.5) % Plt Count (150-450) k/uL MPV Neutrophils % % Lymphocytes % % Monocytes % % Eosinophils % % Basophils % % Neutrophils # (1.3-7.7) k/uL Lymphocytes # (1.0-4.8) k/uL Monocytes # (0-1.0) k/uL Eosinophils # (0-0.7) k/uL Basophils # (0-0.2) k/uL Sodium (137-145) mmol/L Potassium (3.5-5.1) mmol/L Chloride (98-107) mmol/L Carbon Dioxide (22-30) mmol/L Anion Gap mmol/L BUN (9-20) mg/dL Creatinine (0.66-1.25) mg/dL Est GFR (CKD-EPI)AfAm (>60 ml/min/1.73 sqM) Est GFR (CKD-EPI)NonAf (>60 ml/min/1.73 sqM) Glucose (74-99) mg/dL Estimated Ave Glu mg/dL 220 mg/dL Hemoglobin A1c 9.3 H (<=6.0) % Plasma Lactic Acid Jerm[place] (0.7-2.0) mmol/L Calcium (8.4-10.2) mg/dL Total Bilirubin (0.2-1.3) mg/dL AST (17-59) U/L ALT (4-49) U/L Alkaline Phosphatase (38-126) U/L C-Reactive Protein (<1.0) mg/dL Total Protein (6.3-8.2) g/dL Albumin (3.5-5.0) g/dL Disposition Clinical Impression: Sacral decubitus ulcer, stage IV, Decubitus ulcer of buttock, stage 4, Hyponatremia, Hyperglycemia due to type 2 diabetes mellitus Disposition: ADMITTED IP TO THIS HOSP Condition: Poor
[2023-07-26] MEDS: PIPERACILLIN-TAZOBACTAM 3.375 GM in SODIUM CHLORIDE 0.9% 100 ML IVPB STA (17:36)
[2023-07-26] MEDS: SODIUM CHLORIDE 0.9% 1,000 ML IV ONE (17:37)
[2023-07-26 18:10] LABS: Basophils % (A) 0 %; Eosinophils # (A) 0.2 k/uL (0-0.7); Eosinophils % (A) 1 %; HCT 32.9 % (39.0-53.0); HGB 10.3 gm/dL (13.0-17.5); Lymphocytes # (A) 1.4 k/uL (1.0-4.8); Lymphocytes % (A) 8 %; MCH 24.8 pg (25.0-35.0); MCHC 31.3 g/dL (31.0-37.0); MCV 79.3 fL (80.0-100.0); Mean Platelet Volume 7.1; Monocytes # (A) 0.8 k/uL (0-1.0); Monocytes % (A) 4 %; Neutrophils # (A) 15.2 k/uL (1.3-7.7); Neutrophils % (A) 85 %; Platelet Count 522 k/uL (150-450); RBC 4.15 m/uL (4.30-5.90); RDW 14.9 % (11.5-15.5); WBC 17.8 k/uL (3.8-10.6)
[2023-07-26 18:18] LABS: ALT 12 U/L (4-49); AST 22 U/L (17-59); African American GFR (CKD) >90 (>60 ml/min/1.73 sqM); Albumin 2.6 g/dL (3.5-5.0); Alkaline Phosphatase 75 U/L (38-126); Anion Gap 3 mmol/L; Blood Urea Nitrogen 13 mg/dL (9-20); Calcium 8.2 mg/dL (8.4-10.2); Carbon Dioxide 26 mmol/L (22-30); Chloride 96 mmol/L (98-107); Glucose 281 mg/dL (74-99); Non-African American GFR(CKD) >90 (>60 ml/min/1.73 sqM); Sodium 125 mmol/L (137-145); Total Bilirubin 0.8 mg/dL (0.2-1.3); Total Protein 6.6 g/dL (6.3-8.2)
[2023-07-26 18:29] LABS: C Reactive Protein 20.8 mg/dL (<1.0); Potassium 4.7 mmol/L (3.5-5.1)
[2023-07-26] MEDS ORDERED: NALOXONE 0.4 MG/ML 1 ML VIAL IV PRN (18:45)
[2023-07-26] MEDS: INSULIN REGULAR 100 UNIT/ML VIAL (IV) SQ STA (20:12)
[2023-07-26] MEDS: SODIUM CHLORIDE 0.9% 1,000 ML IV SCH (20:13)
[2023-07-26] MEDS: FAMOTIDINE 20 MG TAB PO SCH (21:34)
[2023-07-27] MEDS ORDERED: LACTULOSE 20 GM/30 ML CUP PO PRN (11:58)
[2023-07-27] MEDS ORDERED: CALCIUM CARBONATE 500 MG CHEWABLE PO PRN (11:58)
[2023-07-27] MEDS ORDERED: LORazepam 0.5 MG TAB PO PRN (11:58)
[2023-07-27] MEDS: PIPERACILLIN-TAZOBACTAM 3.375 GM in SODIUM CHLORIDE 0.9% 100 ML IVPB SCH (13:52)
--- NOTE | 2023-07-27 13:52 | P.HPIM ---
History of Present Illness H&P Date: 07/27/23 Chief Complaint: Sacral wound This is a 63-year-old patient, follows with Dr. Mendez. Chronic stable medical conditions include ADHD, herniated disc lower back, smoker. Sacral wounds. Left AKA. right above-knee amputation by Dr. Zee on April 2023 Recently presented, not being compliant. Smoking cigarettes. Recreational drugs. Patient has not followed up for his PICC line antibiotics last discharge and was discharged on oral Augmentin. Patient has seen Dr. Zee from vascular and wound care Dr. Bahena. Patient's son lives with him. Patient now presents with worsening sacral wound. Eating fair. Continues to smoke cigarettes. Does marijuana. Tired. Some wheezing shortness of breath. Review of systems: GEN.: tired EYES: None HEENT: None NECK: None RESPIRATORY: Some wheezing and cough CARDIOVASCULAR: None GASTROINTESTINAL: None GENITOURINARY: None MUSCULOSKELETAL: Wounds as above LYMPHATICS: None HEMATOLOGICAL: None PSYCHIATRY: None NEUROLOGICAL: None Past medical history to include: Diabetes, possible ADHD, chronic low back pain, herniated disc, atrial fibrillation. COPD. left above-knee amputation. Right below-knee amputation. Sacral wound Social history: Son lives with the patient. 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 Smokes about a pack a day, now down to a few cigarettes a day. Alcohol occasionally. Marijuana Physical examination: VITAL SIGNS: 98.5, 89, 18, 1 one 5 x 64, 96% room air GENERAL: Laying in bed lethargic, tired but arousable c EYES: Pupils equal. Conjunctiva normal. HEENT: External appearance of nose and ears normal, oral cavity grossly normal. NECK: JVD not raised; masses not palpable. HEART: First and second heart sounds are normal; no edema. LUNGS: Respiratory rate increased l; decreased breath sounds. No wheezing ABDOMEN: Soft, nontender, liver spleen not palpable, no masses palpable. PSYCH: Lethargic but able to awaken answer questions. MUSCULOSKELETAL: Left and right above-knee amputation, incisions with rosetta healing well. Sacral wound. NEUROLOGICAL: Moving all 4 limbs. INVESTIGATIONS, reviewed in the clinical context: July 26: White count 7.8 hemoglobin 10.3 platelets 522 sodium 125 potassium 4.7 BUN 13 creatinine 0.31 CRP 20.8 albumin 2.6 Assessment and plan: -Acute metabolic encephalopathy likely from recreational drugs. Patient last admission all the same presentation. Urine drug screen ordered -Right above-knee amputation by Dr. Zee on May 26. Cultures grew multiple organisms. discharged on June 03/2024 with IV ceftriaxone with a PICC line for 6 weeks. Patient never showed up for his IV antibiotics. Was subsequently discharged with Augmentin on the last visit -Sacral decubitus ulcer. With acute osteomyelitis. Patient has been noncompliant with his antibiotics Consult Dr. Bahena from wound care center. Dr. Zee. -Paroxysmal atrial fibrillation: sinus rhythm Amiodarone. Lopressor. -Diabetes mellitus type 2, chronically on insulin Follow Accu-Cheks. -COPD in a current smoker Bronchodilators as needed -Chronic nicotine dependence, cigarette smoker Nicotine patch -Chronic medical debility. Non-ambulatory -Full code Wound care. Patient remains noncompliant. Consultation to vascular. Urine drug screen. Prognosis guarded. Past Medical History Past Medical History: Diabetes Mellitus Additional Past Medical History / Comment(s): pressure ulcers[Buttock,simone heals ,rt lateral foot]. BLOOD "ECOLI" INFECTION. History of Any Multi-Drug Resistant Organisms: None Reported Past Surgical History: Orthopedic Surgery Additional Past Surgical History / Comment(s): back pain son states pt recently "slipped a disc" taking gabapentin. Left leg above the knee amputation. MICHELLE PICC LINE. Past Anesthesia/Blood Transfusion Reactions: No Reported Reaction Past Psychological History: No Psychological Hx Reported Smoking Status: Current every day smoker Past Alcohol Use History: Rare Past Drug Use History: None Reported Medications and Allergies Home Medications Medication Instructions Recorded Confirmed Type INSULIN ASPART (NovoLOG) [NovoLOG See Protocol SQ AC-TID PRN 09/11/22 07/26/23 History (formulary)] Ascorbic Acid [Vitamin C] 1,000 mg PO DAILY 07/26/23 07/26/23 History Ergocalciferol (Vitamin D2) 1,250 mcg PO MO 07/26/23 07/26/23 History [Drisdol (50,000 Iu)] Folic Acid 1 mg PO DAILY 07/26/23 07/26/23 History Gabapentin [Neurontin] 300 mg PO TID 07/26/23 07/26/23 History HYDROcodone/APAP 10-325MG [[place] 1 tab PO QID 07/26/23 07/26/23 History 10-325] methocarbamoL [Robaxin] 500 mg PO QID 07/26/23 07/26/23 History sitaGLIPtin [Januvia] 100 mg PO DAILY 07/26/23 07/26/23 History Allergies Allergy/AdvReac Type Severity Reaction Status Date / Time No Known Allergies Allergy Verified 07/26/23 19:23 Physical Exam Vitals: Vital Signs Temp Pulse Resp BP Pulse Ox 07/27/23 08:00 89 18 115/64 96 07/27/23 06:00 87 18 108/69 98 07/27/23 04:00 98.5 F 102 H 18 140/71 100 07/27/23 02:00 99 18 115/65 100 07/27/23 00:00 91 18 137/80 98 07/26/23 21:35 98.3 F 109 H 16 151/74 99 07/26/23 15:59 99.5 F 109 H 18 114/72 97 Intake and Output 07/26/23 07/27/23 07/27/23 22:59 06:59 14:59 Other: Weight 58.967 kg Results CBC & Chem 7: 07/26/23 17:57 07/26/23 17:57 Labs: Abnormal Lab Results - Last 24 Hours (Table) 07/26/23 07/26/23 Range/Units 17:57 17:57 WBC 17.8 H (3.8-10.6) k/uL RBC 4.15 L (4.30-5.90) m/uL Hgb 10.3 L (13.0-17.5) gm/dL Hct 32.9 L (39.0-53.0) % MCV 79.3 L (80.0-100.0) fL MCH 24.8 L (25.0-35.0) pg Plt Count 522 H (150-450) k/uL Neutrophils # 15.2 H (1.3-7.7) k/uL Sodium 125 L (137-145) mmol/L Chloride 96 L (98-107) mmol/L Creatinine 0.31 L (0.66-1.25) mg/dL Glucose 281 H (74-99) mg/dL Calcium 8.2 L (8.4-10.2) mg/dL C-Reactive Protein 20.8 H (<1.0) mg/dL Albumin 2.6 L (3.5-5.0) g/dL
[2023-07-27] MEDS: methocarbamoL 500 MG TAB PO SCH (17:02)
[2023-07-27] MEDS: HYDROcodone/APAP 10-325MG 1 EACH TAB PO SCH (17:02)
[2023-07-27 17:23] LABS: Glucose,Whole Blood 397 mg/dL (70-110)
[2023-07-27] MEDS ORDERED: DEXTROSE 50% SYRINGE 50 ML IVP PRN (17:24)
[2023-07-27] MEDS: INSULIN ASPART (NovoLOG) 100 UNIT/ML VIAL SQ SCH (18:01)
[2023-07-27 18:25] LABS: Amphetamine Screen,Urine Detected (NotDetected); Barbiturate Screen,Urine Not Detected (NotDetected); Benzodiazepines Screen,Urine Not Detected (NotDetected); Cocaine Screen,Urine Not Detected (NotDetected); Methadone Screen, Urine Not Detected (NotDetected); Opiate Screen,Urine Detected (NotDetected); Oxycodone Screen, Urine Not Detected (NotDetected); Phencyclidine Screen,Urine Not Detected (NotDetected); Tricyclic Antidepressant,Urine Not Detected (NotDetected); Urn Cannabinoid Scrn Detected (NotDetected)
[2023-07-27 20:08] LABS: Glucose,Whole Blood 341 mg/dL (70-110)
[2023-07-27] MEDS: INSULIN DETEMIR (LEVEMIR) 100 UNIT/ML SYR SQ SCH (20:54)
[2023-07-27] MEDS: ACETAMINOPHEN TAB 325 MG TAB PO PRN (23:39)
--- NOTE | 2023-07-28 07:06 | P.CONS ---
History of Present Illness - Reason for Consult Consult date: 07/27/23 Wounds Requesting physician: Jerardo Guillen - Chief Complaint Worsening wound to the sacral area x weeks - History of Present Illness Patient is a 63-year-old male with a past medical history significant for diabetes mellitus in this patient who did have a history of PAD s/p bilateral [id number] amputation and did have a stage IV sacral pressure ulcer that has been there for a few months patient did have a previous debridement of his sacral wound April 2023 culture positive for Proteus providentia and E. coli patient was treated with the Unasyn however he did not have any insurance at that point we did arrange for Rocephin 2 g daily at the infusion clinic and oral Flagyl however the patient was not compliant with his treatment and never showed up for any of his infusion subsequently PICC line was discontinued and the patient has been given Augmentin however is not very clear if the patient has taken those antibiotics or not patient is now presenting to the [facility] ER for evaluation of worsening wound to his sacral area and has developed wound to bilateral gluteal area as well has been complaining of fatigue and fevers patient describing the pain to be sharp moderate intensity without any radiation patient not very clear about local care he was getting for his wounds patient on presentation to the hospital did have low-grade fever of 99.5 F patient was tachycardic but not hypotensive or hypoxic white count is 17.8 with a left shift creatinine was normal liver enzymes are normal urine drug screen is positive for opiates amphetamines methamphetamines and marijuana blood and local cultures obtained which are currently pending patient was given a dose of Zosyn admitted to hospital infectious disease was consulted for further management of antibiotic therapy Review of Systems Positive point and negatives has been mentioned in the HPI, complete review of systems was performed and all other systems are negative Past Medical History Past Medical History: Diabetes Mellitus Additional Past Medical History / Comment(s): pressure ulcers[Buttock,simone heals ,rt lateral foot]. BLOOD "ECOLI" INFECTION. History of Any Multi-Drug Resistant Organisms: None Reported Past Surgical History: Orthopedic Surgery Additional Past Surgical History / Comment(s): back pain son states pt recently "slipped a disc" taking gabapentin. Left leg above the knee amputation. MICHELLE PICC LINE. Past Anesthesia/Blood Transfusion Reactions: No Reported Reaction Past Psychological History: No Psychological Hx Reported Smoking Status: Current every day smoker Past Alcohol Use History: Rare Past Drug Use History: None Reported - Past Family History Father Family Medical History: Congestive Heart Failure (CHF), Diabetes Mellitus Mother Family Medical History: Cancer Additional Family Medical History / Comment(s): cancer in spine Medications and Allergies Home Medications Medication Instructions Recorded Confirmed Type Ascorbic Acid [Vitamin C] 1,000 mg PO DAILY 07/26/23 07/26/23 History Ergocalciferol (Vitamin D2) 1,250 mcg PO MO 07/26/23 07/26/23 History [Drisdol (50,000 Iu)] Folic Acid 1 mg PO DAILY 07/26/23 07/26/23 History methocarbamoL [Robaxin] 500 mg PO QID 07/26/23 07/26/23 History sitaGLIPtin [Januvia] 100 mg PO DAILY 07/26/23 07/26/23 History Ampicillin-Sulbactam [Unasyn 3 gm 3 gm IVPB Q6HR 35 Days #140 each 08/17/23 Rx vial] DAPTOmycin [Cubicin] 250 mg IVPB Q24HR 14 Days #14 each 08/17/23 Rx Acetaminophen Tab [Tylenol] 650 mg PO Q6HR PRN tab 08/18/23 Rx Calcium Carbonate [Tums] 1,000 mg PO Q4HR PRN tab 08/18/23 Rx Famotidine [Pepcid] 20 mg PO DAILY #30 tablet 08/18/23 Rx Gabapentin [Neurontin] 100 mg PO BID #6 cap 08/18/23 Rx HYDROcodone/APAP 10-325MG [[place] 1 tab PO Q6H PRN #6 tab 08/18/23 Rx 10-325] INSULIN ASPART (NovoLOG) [NovoLOG 0 unit SQ ACHS each 08/18/23 Rx (formulary)] Insulin Detemir (Levemir) [Levemir] 12 unit SQ HS each 08/18/23 Rx Temazepam [Restoril] 15 mg PO HS PRN cap 08/18/23 Rx Allergies Allergy/AdvReac Type Severity Reaction Status Date / Time No Known Allergies Allergy Verified 08/02/23 10:19 Physical Exam Vitals: Vital Signs Temp Pulse Resp BP Pulse Ox 07/27/23 08:00 89 18 115/64 96 07/27/23 06:00 87 18 108/69 98 07/27/23 04:00 98.5 F 102 H 18 140/71 100 07/27/23 02:00 99 18 115/65 100 07/27/23 00:00 91 18 137/80 98 07/26/23 21:35 98.3 F 109 H 16 151/74 99 07/26/23 15:59 99.5 F 109 H 18 114/72 97 Intake and Output 07/26/23 07/27/23 07/27/23 22:59 06:59 14:59 Other: Weight 58.967 kg GENERAL DESCRIPTION: Middle-aged male lying in bed, no distress. No tachypnea or accessory muscle of respiration use. HEENT: Shows Pallor , no scleral icterus. Oral mucous membrane is dry. No pharyngeal erythema or thrush NECK: Trachea central, no thyromegaly. LUNGS: Unlabored breathing. Clear to auscultation anteriorly. No wheeze or crackle. HEART: S1, S2, regular rate and rhythm. No loud murmur ABDOMEN: Soft, no tenderness , guarding or rigidity, no organomegaly EXTREMITIES: Bilateral AKA stump with no redness or wound . SKIN: No rash, no masses palpable. Patient did have a stage IV sacral pressure ulcer with a wound palpable significant mount of slough tissue and drainage NEUROLOGICAL: The patient is awake, alert, oriented x3, mood and affect normal. Results CBC & Chem 7: 08/18/23 08:46 08/18/23 08:46 Labs: Abnormal Lab Results - Last 24 Hours (Table) 07/26/23 07/26/23 Range/Units 17:57 17:57 WBC 17.8 H (3.8-10.6) k/uL RBC 4.15 L (4.30-5.90) m/uL Hgb 10.3 L (13.0-17.5) gm/dL Hct 32.9 L (39.0-53.0) % MCV 79.3 L (80.0-100.0) fL MCH 24.8 L (25.0-35.0) pg Plt Count 522 H (150-450) k/uL Neutrophils # 15.2 H (1.3-7.7) k/uL Sodium 125 L (137-145) mmol/L Chloride 96 L (98-107) mmol/L Creatinine 0.31 L (0.66-1.25) mg/dL Glucose 281 H (74-99) mg/dL Calcium 8.2 L (8.4-10.2) mg/dL C-Reactive Protein 20.8 H (<1.0) mg/dL Albumin 2.6 L (3.5-5.0) g/dL Assessment and Plan (1) Decubitus ulcer of buttock, stage 4 Current Visit: Yes Status: Acute Code(s): L89.304 - PRESSURE ULCER OF UNSPECIFIED BUTTOCK, STAGE 4 SNOMED Code(s): 97112590885331696 (2) Sacral decubitus ulcer, stage IV Current Visit: Yes Status: Acute Code(s): L89.154 - PRESSURE ULCER OF SACRAL REGION, STAGE 4 SNOMED Code(s): 22143296442735 (3) Type 2 diabetes mellitus with other skin ulcer Current Visit: Yes Status: Acute Code(s): E11.622 - TYPE 2 DIABETES MELLITUS WITH OTHER SKIN ULCER; L98.499 - NON-PRESSURE CHRONIC ULCER OF SKIN OF SITES W UNSP SEVERITY SNOMED Code(s): 557296951 (4) Sacral osteomyelitis Current Visit: No Status: Acute Code(s): M46.28 - OSTEOMYELITIS OF VERTEBRA, SACRAL AND SACROCOCCYGEAL REGION SNOMED Code(s): 477547459 (5) Sepsis Current Visit: No Status: Acute Code(s): A41.9 - SEPSIS, UNSPECIFIED ORGAN ISM SNOMED Code(s): 26237967 Plan: 1patient was in the hospital with sepsis in this patient who did have a fever tachycardia elevated white count source is infected sacral pressure ulcer likely stage IV with underlying osteomyelitis in this patient wound has been there for couple of months now and noncompliance with treatment in the outpatient setting 2-patient benefit from surgical evaluation for debridement and deep culture 3-we will check inflammatory markers and follow-up on the blood cultures 4-empirically add Zosyn 3.375 g every 8 hour while waiting for the workup to be completed We will follow on clinical condition and cultures to further adjust medication if needed Thank you for this consultation we will follow the patient along with you Dictation was produced using [employer] software. please excuse any grammatical, word or spelling errors. Time with Patient: Greater than 30
[2023-07-28 07:51] LABS: Glucose,Whole Blood 68 mg/dL (70-110)
[2023-07-28 08:28] LABS: Glucose,Whole Blood 117 mg/dL (70-110)
--- NOTE | 2023-07-28 11:13 | P.CONS ---
History of Present Illness - Reason for Consult Consult date: 07/28/23 wound care - History of Present Illness This is a 63-year-old gentleman with past medical history significant for stage IV sacral decubitus ulcer previous surgical debridements, diabetes and current every day smoker. Patient was seen approximately 6 weeks ago status post a surgical debridement at that time. There is difficulties with dressing changes secondary to the proximity to the anal opening. There is also significant difficulty with compliance. Patient has a large amount of exudative film in the decubitus. Significant amount of depth and probable palpable bone. Due to the location the ulceration would be difficult to utilize a negative pressure wound VAC. Review Of Systems: Constitutional: No fever, no chills, no night sweats. No weight change. No weakness, fatigue or lethargy. No daytime sleepiness. Integumentary:reports wounds, no lesions. No rash or pruritus. No unusual bruising. No change in hair or nails. Physical exam: General Appearance: Alert, cooperative, no distress, appears stated age. Skin: See HPI all other Skin color, texture, tugor normal, no rashes or lesions. Neurologic: Alert oriented x3 Assessment: 1. Stage IV sacral ulceration Plan: 1. Patient is scheduled for a surgical debridement possibly tomorrow. Consideration for a colostomy to help facilitate wound healing however with a colostomy the prognosis is still guarded. Apply absorptive silver, saline moist gauze, Kerlix for packing and cover with ABD. Secure with tape. May change the outer dressing as needed keep silver in place for at least 48 hours. Thank you for the consultation any questions please contact the wound care center DNP note has been reviewed and discussed with Dr. Conway and the impression and plan of care has been directed as dictated. Past Medical History Past Medical History: Diabetes Mellitus Additional Past Medical History / Comment(s): pressure ulcers[Buttock,simone heals ,rt lateral foot]. BLOOD "ECOLI" INFECTION. History of Any Multi-Drug Resistant Organisms: None Reported Past Surgical History: Orthopedic Surgery Additional Past Surgical History / Comment(s): back pain son states pt recently "slipped a disc" taking gabapentin. Left leg above the knee amputation. MICHELLE PICC LINE. Past Anesthesia/Blood Transfusion Reactions: No Reported Reaction Past Psychological History: No Psychological Hx Reported Smoking Status: Current every day smoker Past Alcohol Use History: Rare Past Drug Use History: None Reported - Past Family History Father Family Medical History: Congestive Heart Failure (CHF), Diabetes Mellitus Mother Family Medical History: Cancer Additional Family Medical History / Comment(s): cancer in spine Medications and Allergies Home Medications Medication Instructions Recorded Confirmed Type INSULIN ASPART (NovoLOG) [NovoLOG See Protocol SQ AC-TID PRN 09/11/22 07/26/23 History (formulary)] Ascorbic Acid [Vitamin C] 1,000 mg PO DAILY 07/26/23 07/26/23 History Ergocalciferol (Vitamin D2) 1,250 mcg PO MO 07/26/23 07/26/23 History [Drisdol (50,000 Iu)] Folic Acid 1 mg PO DAILY 07/26/23 07/26/23 History Gabapentin [Neurontin] 300 mg PO TID 07/26/23 07/26/23 History HYDROcodone/APAP 10-325MG [[place] 1 tab PO QID 07/26/23 07/26/23 History 10-325] methocarbamoL [Robaxin] 500 mg PO QID 07/26/23 07/26/23 History sitaGLIPtin [Januvia] 100 mg PO DAILY 07/26/23 07/26/23 History Allergies Allergy/AdvReac Type Severity Reaction Status Date / Time No Known Allergies Allergy Verified 07/26/23 19:23 Physical Exam Vitals: Vital Signs Temp Pulse Pulse Resp BP BP Pulse Ox 07/28/23 07:03 97.5 F L 74 16 146/67 99 07/28/23 02:00 97.8 F 75 16 105/65 99 07/27/23 19:12 98 F 93 16 104/61 99 07/27/23 16:16 98.5 F 90 17 107/60 99 07/27/23 15:00 94 120/70 99 07/27/23 14:00 89 121/65 99 07/27/23 13:00 98 121/75 99 07/27/23 12:00 96 18 125/65 100 Intake and Output 07/27/23 07/28/23 07/28/23 22:59 06:59 14:59 Intake Total 660 Output Total 225 300 Balance 435 -300 Intake: Oral 660 Output: Urine 225 300 Other: Voiding Method Indwelling Catheter # Bowel Movements 2 1 Weight 58.967 kg Results CBC & Chem 7: 07/26/23 17:57 07/26/23 17:57 Labs: Abnormal Lab Results - Last 24 Hours (Table) 07/26/23 07/27/23 07/27/23 Range/Units 17:57 17:21 17:52 POC Glucose (mg/dL) 397 H (70-110) mg/dL Hemoglobin A1c 9.3 H (<=6.0) % Urine Opiates Screen Detected H (NotDetected) Ur Amphetamines Screen Detected H (NotDetected) U Methamphetamines Scrn Detected H (NotDetected) U Marijuana (THC) Screen Detected H (NotDetected) 07/27/23 07/28/23 07/28/23 Range/Units 20:07 07:49 08:26 POC Glucose (mg/dL) 341 H 68 L 117 H (70-110) mg/dL Hemoglobin A1c (<=6.0) % Urine Opiates Screen (NotDetected) Ur Amphetamines Screen (NotDetected) U Methamphetamines Scrn (NotDetected) U Marijuana (THC) Screen (NotDetected) Microbiology - Last 24 Hours (Table) 07/27/23 16:00 Gram Stain - Preliminary Buttock 07/26/23 17:35 Blood Culture - Preliminary Blood 07/26/23 17:20 Blood Culture Gram Stain - Preliminary Blood Assessment and Plan (1) Sacral decubitus ulcer, stage IV Current Visit: Yes Status: Acute Code(s): L89.154 - PRESSURE ULCER OF SACRAL REGION, STAGE 4 SNOMED Code(s): 25261013309798 (2) Type 2 diabetes mellitus with other skin ulcer Current Visit: Yes Status: Acute Code(s): E11.622 - TYPE 2 DIABETES MELLITUS WITH OTHER SKIN ULCER; L98.499 - NON-PRESSURE CHRONIC ULCER OF SKIN OF SITES W UNSP SEVERITY SNOMED Code(s): 692400051
--- NOTE | 2023-07-28 12:00 | P.PN ---
Subjective Progress Note Date: 07/28/23 Principal diagnosis: Reason for follow-up is infected sacral pressure ulcer Patient is a 63-year-old male with a past medical history significant for diabetes mellitus in this patient who did have a history of PAD s/p bilateral [id number] amputation and did have a stage IV sacral pressure ulcer that has been there for a few months, noncompliance with the previous IV and local care treatment presented to hospital with worsening wound and fever On today's evaluation that is 07/28/2023, Patient is afebrile patient is currently on room air and denies having any shortness of breath, the patient denies any chest pain or cough, the patient denies any nausea vomiting did not have any abdominal pain and no diarrhea, still complaining of pain to his sacral wound area No new labs obtained today cultures pending Objective - Vital Signs Vital signs: Vital Signs Temp 97.5 F L 07/28/23 07:03 Pulse 74 07/28/23 07:03 Resp 16 07/28/23 07:03 BP 146/67 07/28/23 07:03 Pulse Ox 99 07/28/23 07:03 FiO2 Intake & Output 07/27/23 07/28/23 07/28/23 18:59 06:59 18:59 Intake Total 540 120 Output Total 225 300 Balance 315 -180 Weight 58.967 kg Intake: Oral 540 120 Output: Urine 225 300 Other: Voiding Method Indwelling Catheter Indwelling Catheter # Bowel Movements 2 1 - Exam GENERAL DESCRIPTION: Middle-age male lying in bed in no distress RESPIRATORY SYSTEM: Unlabored breathing , decreased breath sounds at bases HEART: S1 S2 regular rate and rhythm , ABDOMEN: Soft , no tenderness EXTREMITIES: Bilateral AKA stump no redness or drainage - Labs CBC & Chem 7: 07/26/23 17:57 07/26/23 17:57 Labs: Abnormal Lab Results - Last 24 Hours (Table) 07/26/23 07/27/23 07/27/23 Range/Units 17:57 17:21 17:52 POC Glucose (mg/dL) 397 H (70-110) mg/dL Hemoglobin A1c 9.3 H (<=6.0) % Urine Opiates Screen Detected H (NotDetected) Ur Amphetamines Screen Detected H (NotDetected) U Methamphetamines Scrn Detected H (NotDetected) U Marijuana (THC) Screen Detected H (NotDetected) 07/27/23 07/28/23 07/28/23 Range/Units 20:07 07:49 08:26 POC Glucose (mg/dL) 341 H 68 L 117 H (70-110) mg/dL Hemoglobin A1c (<=6.0) % Urine Opiates Screen (NotDetected) Ur Amphetamines Screen (NotDetected) U Methamphetamines Scrn (NotDetected) U Marijuana (THC) Screen (NotDetected) Microbiology - Last 24 Hours (Table) 07/27/23 16:00 Gram Stain - Preliminary Buttock 07/26/23 17:35 Blood Culture - Preliminary Blood 07/26/23 17:20 Blood Culture Gram Stain - Preliminary Blood Assessment and Plan (1) Sacral decubitus ulcer, stage IV Current Visit: Yes Status: Acute Code(s): L89.154 - PRESSURE ULCER OF SACRAL REGION, STAGE 4 SNOMED Code(s): 06314758072685 (2) Sacral osteomyelitis Current Visit: No Status: Acute Code(s): M46.28 - OSTEOMYELITIS OF VERTEBRA, SACRAL AND SACROCOCCYGEAL REGION SNOMED Code(s): 179783903 Plan: 1patient was in the hospital with sepsis in this patient who did have a fever tachycardia elevated white count source is infected sacral pressure ulcer likely stage IV with underlying osteomyelitis in this patient wound has been there for couple of months now and noncompliance with treatment in the outpatient setting 2-await debridement and deep culture 3-patient to continue with Zosyn 3.375 g every 8 hour while waiting for the workup to be completed Dictation was produced using [employer] dictation software. please excuse any grammatical, word or spelling errors. Time with Patient: Less than 30
[2023-07-28 13:23] LABS: Glucose,Whole Blood 177 mg/dL (70-110)
--- NOTE | 2023-07-28 15:48 | P.GSCN ---
History of Present Illness Consult date: 07/28/23 History of present illness: CHIEF COMPLAINT: Sacral decubitus ulcers HISTORY OF PRESENT ILLNESS: This is a 63-year-old male with history of diabetes and peripheral arterial disease status post bilateral [id number] amputations. And he has history of stage IV sacral pressure decubitus ulcers and has been noncompliant with treatment. Patient had debridement of sacral decubitus ulcer on 05/26/2023. At that time there was discussion about diverting colostomy after patient had insurance. Patient reporting that he is insured. He is requesting a diverting colostomy. Patient does report pain and drainage from the buttocks. Patient mildly tachycardic on admission with elevated white count PAST MEDICAL HISTORY: See below PAST SURGICAL HISTORY: See below MEDICATIONS: See below ALLERGIES: See below SOCIAL HISTORY: No illicit drug use. REVIEW OF SYSTEMS: CONSTITUTIONAL: Denies fever or chills. HEENT: Denies blurred vision, vision changes, or eye pain. Denies hemoptysis CARDIOVASCULAR: Denies chest pain or pressure. RESPIRATORY: No shortness of breath. GASTROINTESTINAL: See HPI for pertinent findings HEMATOLOGIC: Denies bleeding disorders. GENITOURINARY: Denies any blood in urine or increased urinary frequency. SKIN: Denies pruitis. Denies rash. PHYSICAL EXAM: VITAL SIGNS: Reviewed GENERAL: Well-developed in no acute distress. HEENT: No sclera icterus. Extraocular movements grossly intact. Moist buccal mucosa. Head is atraumatic, normocephalic. No nasal drainage. ABDOMEN: Soft. Nondistended. Nontender NEUROLOGIC: Alert and oriented. Cranial nerves II through XII grossly intact. Skin: Right buttock wound with sloughing and necrotic tissue around the edges. Left buttock wound circular with necrotic changes and sloughing and alert sacral wound with sloughing. There is drainage from the wounds as well as foul odor LABORATORY DATA: WBC 17.8 Hgb 10.3 platelets 522 Sodium 125 potassium 4.7 creatinine 0.31 Glucose 177 hgbA1c 9.3 CRP 20.8 IMAGING: ASSESSMENT: 1. Sacral decubitus ulcer stage IV 2. Sepsis 3. Hyponatremia 4. Diabetes mellitus 5. Medical noncompliance PLAN: -Further recommendations forthcoming per surgeon possible debridement of sacral ulcers -Further recommendations forthcoming regarding diverting colostomy -Continue antibiotics -Continue offloading -Hyponatremia management per medicine service -Agree with protein supplement to help with wound care -Continue supportive care -Infectious disease and wound care service recommendations noted Thank you for this consultation Physician Scrap Preparer note has been reviewed by physician. Signing provider agrees with the documented findings, assessment, and plan of care. Past Medical History Past Medical History: Diabetes Mellitus Additional Past Medical History / Comment(s): pressure ulcers[Buttock,simone heals ,rt lateral foot]. BLOOD "ECOLI" INFECTION. History of Any Multi-Drug Resistant Organisms: None Reported Past Surgical History: Orthopedic Surgery Additional Past Surgical History / Comment(s): back pain son states pt recently "slipped a disc" taking gabapentin. Left leg above the knee amputation. MICHELLE PICC LINE. Past Anesthesia/Blood Transfusion Reactions: No Reported Reaction Past Psychological History: No Psychological Hx Reported Smoking Status: Current every day smoker Past Alcohol Use History: Rare Past Drug Use History: None Reported - Past Family History Father Family Medical History: Congestive Heart Failure (CHF), Diabetes Mellitus Mother Family Medical History: Cancer Additional Family Medical History / Comment(s): cancer in spine Medications and Allergies Home Medications Medication Instructions Recorded Confirmed Type INSULIN ASPART (NovoLOG) [NovoLOG See Protocol SQ AC-TID PRN 09/11/22 07/26/23 History (formulary)] Ascorbic Acid [Vitamin C] 1,000 mg PO DAILY 07/26/23 07/26/23 History Ergocalciferol (Vitamin D2) 1,250 mcg PO MO 07/26/23 07/26/23 History [Drisdol (50,000 Iu)] Folic Acid 1 mg PO DAILY 07/26/23 07/26/23 History Gabapentin [Neurontin] 300 mg PO TID 07/26/23 07/26/23 History HYDROcodone/APAP 10-325MG [[place] 1 tab PO QID 07/26/23 07/26/23 History 10-325] methocarbamoL [Robaxin] 500 mg PO QID 07/26/23 07/26/23 History sitaGLIPtin [Januvia] 100 mg PO DAILY 07/26/23 07/26/23 History Allergies Allergy/AdvReac Type Severity Reaction Status Date / Time No Known Allergies Allergy Verified 07/26/23 19:23 Surgical - Exam Vital Signs Temp Pulse Resp BP Pulse Ox 99.5 F 109 H 18 114/72 97 07/26/23 15:59 07/26/23 15:59 07/26/23 15:59 07/26/23 15:59 07/26/23 15:59 Results - Labs 07/26/23 17:57 07/26/23 17:57 Abnormal Lab Results - Last 24 Hours (Table) 07/26/23 07/27/23 07/27/23 Range/Units 17:57 17:21 17:52 POC Glucose (mg/dL) 397 H (70-110) mg/dL Hemoglobin A1c 9.3 H (<=6.0) % Urine Opiates Screen Detected H (NotDetected) Ur Amphetamines Screen Detected H (NotDetected) U Methamphetamines Scrn Detected H (NotDetected) U Marijuana (THC) Screen Detected H (NotDetected) 07/27/23 07/28/23 07/28/23 Range/Units 20:07 07:49 08:26 POC Glucose (mg/dL) 341 H 68 L 117 H (70-110) mg/dL Hemoglobin A1c (<=6.0) % Urine Opiates Screen (NotDetected) Ur Amphetamines Screen (NotDetected) U Methamphetamines Scrn (NotDetected) U Marijuana (THC) Screen (NotDetected) Microbiology - Last 24 Hours (Table) 07/27/23 16:00 Gram Stain - Preliminary Buttock 07/26/23 17:35 Blood Culture - Preliminary Blood 07/26/23 17:20 Blood Culture Gram Stain - Preliminary Blood Diabetes panel 07/26/23 Range/Units 17:57 Hemoglobin A1c 9.3 H (<=6.0) %
--- NOTE | 2023-07-28 16:03 | P.PN ---
Progress Note - Text Progress Note Date: 07/28/23 Chief Complaint: Sacral wound This is a 63-year-old patient, follows with Dr. Mendez. Chronic stable medical conditions include ADHD, herniated disc lower back, smoker. Sacral wounds. Left AKA. right above-knee amputation by Dr. Zee on April 2023 Recently presented, not being compliant. Smoking cigarettes. Recreational drugs. Patient has not followed up for his PICC line antibiotics last discharge and was discharged on oral Augmentin. Patient has seen Dr. Zee from vascular and wound care Dr. Bahena. Patient's son lives with him. Patient now presents with worsening sacral wound. Eating fair. Continues to smoke cigarettes. Does marijuana. Tired. Some wheezing shortness of breath. June: Patient seen by Dr. Zee. Sacral decubitus wound will be followed by Dr. Pabon's team. For possible diverting colostomy. Patient is on IV Zosyn. Eating well. Urine drug screen was positive for opiates, amphetamines, methamphetamines, marijuana. Home pain medications were resumed. Active Medications Acetaminophen (Acetaminophen Tab 325 Mg Tab) 650 mg PO Q6HR PRN PRN Reason: Mild Pain or Fever > 100.5 Last Admin: 07/27/23 23:39 Dose: 650 mg Hydrocodone Bitart/Acetaminophen (Hydrocodone/Apap 10-325mg 1 Each Tab) 1 each PO QID [facility] Last Admin: 07/28/23 13:16 Dose: 1 each Calcium Carbonate/Glycine (Calcium Carbonate 500 Mg Chewable) 1,000 mg PO Q4HR PRN PRN Reason: Dyspepsia Dextrose/Water (Dextrose 50% Syringe 50 Ml) 25 ml IVP PER PROTOCOL PRN; Protocol PRN Reason: Hypoglycemia Dextrose/Water (Dextrose 50% Syringe 50 Ml) 50 ml IVP PER PROTOCOL PRN; Protocol PRN Reason: Hypoglycemia Famotidine (Famotidine 20 Mg Tab) 20 mg PO BID [facility] Last Admin: 07/28/23 08:52 Dose: 20 mg Sodium Chloride (Saline 0.9%) 1,000 mls @ 130 mls/hr IV .[id number] [facility] Last Admin: 07/28/23 11:48 Dose: 130 mls/hr Piperacillin Sod/Tazobactam (Sod 3.375 gm/ Sodium Chloride) 100 mls @ 25 mls/hr IVPB Q8H [facility]; Protocol Last Admin: 07/28/23 13:15 Dose: 25 mls/hr Insulin Aspart (Insulin Aspart (Novolog) 100 Unit/Ml Vial) 0 unit SQ ACHS [facility]; Protocol Last Admin: 07/28/23 13:16 Dose: 1 unit Insulin Detemir (Insulin Detemir (Levemir) 100 Unit/Ml Syr) 15 unit SQ HS [facility] Last Admin: 07/27/23 20:54 Dose: 15 unit Lactulose (Lactulose 20 Gm/30 Ml Cup) 20 gm PO DAILY PRN PRN Reason: Constipation Lorazepam (Lorazepam 0.5 Mg Tab) 0.5 mg PO Q6HR PRN PRN Reason: Anxiety Methocarbamol (Methocarbamol 500 Mg Tab) 500 mg PO QID [facility] Last Admin: 07/28/23 13:16 Dose: 500 mg Naloxone HCl (Naloxone 0.4 Mg/Ml 1 Ml Vial) 0.2 mg IV Q2M PRN PRN Reason: Opioid Reversal Ondansetron HCl (Ondansetron 4 Mg/2 Ml Vial) 4 mg IVP Q8HR PRN PRN Reason: Nausea And Vomiting Temazepam (Temazepam 15 Mg Cap) 15 mg PO HS PRN PRN Reason: Insomnia Past medical history to include: Diabetes, possible ADHD, chronic low back pain, herniated disc, atrial fibrillation. COPD. left above-knee amputation. Right below-knee amputation. Sacral wound Social history: Son lives with the patient. 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 Smokes about a pack a day, now down to a few cigarettes a day. Alcohol occasionally. Marijuana Physical examination: VITAL SIGNS: 99, 83, 16, 128 x 65, 99% room air GENERAL: Laying in bed comfortable EYES: Pupils equal. Conjunctiva normal. HEENT: External appearance of nose and ears normal, oral cavity grossly normal. NECK: JVD not raised; masses not palpable. HEART: First and second heart sounds are normal; no edema. LUNGS: Respiratory rate increased l; decreased breath sounds. No wheezing ABDOMEN: Soft, nontender, liver spleen not palpable, no masses palpable. PSYCH: Far more awake, answering questions appropriately MUSCULOSKELETAL: Left and right above-knee amputation, incisions with rosetta healing well. Sacral wound. NEUROLOGICAL: Moving all 4 limbs. INVESTIGATIONS, reviewed in the clinical context: Urine drug screen: Positive for opiates, amphetamines, meth amphetamines, marijuana July 26: White count 7.8 hemoglobin 10.3 platelets 522 sodium 125 potassium 4.7 BUN 13 creatinine 0.31 CRP 20.8 albumin 2.6 Assessment and plan: -Acute metabolic encephalopathy likely from recreational drugs. Patient last admission all the same presentation.: Better Urine drug screen positive for methamphetamines, amphetamines, opiates, marijuana -Right above-knee amputation by Dr. Zee on May 26. Cultures grew multiple organisms. discharged on June 03/2024 with IV ceftriaxone with a PICC line for 6 weeks. Patient never showed up for his IV antibiotics. Was subsequently discharged with Augmentin on the last visit -Sacral decubitus ulcer. With acute osteomyelitis. Patient has been noncompliant with his antibiotics Consult Dr. Bahena from wound care center. Dr Pabon consulted. IV Zosyn with ID -Paroxysmal atrial fibrillation: sinus rhythm Amiodarone. Lopressor. -Diabetes mellitus type 2, chronically on insulin Follow Accu-Cheks. -COPD in a current smoker Bronchodilators as needed -Chronic nicotine dependence, cigarette smoker Nicotine patch -Chronic medical debility. Non-ambulatory -Full code Continue wound care. Patient eating well. Possible diverting colostomy per surgery. Past Medical History Past Medical History: Diabetes Mellitus Additional Past Medical History / Comment(s): pressure ulcers[Buttock,simone heals ,rt lateral foot]. BLOOD "ECOLI" INFECTION. History of Any Multi-Drug Resistant Organisms: None Reported Past Surgical History: Orthopedic Surgery Additional Past Surgical History / Comment(s): back pain son states pt recently "slipped a disc" taking gabapentin. Left leg above the knee amputation. MICHELLE PICC LINE. Past Anesthesia/Blood Transfusion Reactions: No Reported Reaction Past Psychological History: No Psychological Hx Reported Smoking Status: Current every day smoker Past Alcohol Use History: Rare Past Drug Use History: None Reported
[2023-07-28 17:12] LABS: Glucose,Whole Blood 219 mg/dL (70-110)
[2023-07-28 20:15] LABS: Glucose,Whole Blood 245 mg/dL (70-110)
[2023-07-29 07:29] LABS: Glucose,Whole Blood 131 mg/dL (70-110)
[2023-07-29 11:35] LABS: Basophils # (A) 0.08 X 10*3/uL (0.00-0.10); Basophils % (A) 0.8 %; Eosinophils # (A) 0.38 X 10*3/uL (0.04-0.35); Eosinophils % (A) 3.6 %; HGB 8.2 g/dL (13.0-17.0); Lymphocytes # (A) 2.13 X 10*3/uL (0.90-5.00); Lymphocytes % (A) 20.2 %; MCH 24.5 pg (27.0-32.0); MCHC 30.4 g/dL (32.0-37.0); MCV 80.6 FL (80.0-97.0); Mean Platelet Volume 8.6 FL (9.5-12.2); Monocytes # (A) 0.63 X 10*3/uL (0.20-1.00); NRBC Per 100 WBC 0 X 10*3/uL (0.00-0.01); Neutrophils # (A) 7.22 X 10*3/uL (1.80-7.70); Neutrophils % (A) 68.5 %; Platelet Count 382 X 10*3/uL (140-440); RBC 3.35 X 10*6/uL (4.40-5.60); RDW 15.1 % (11.5-14.5); WBC 10.53 X 10*3/uL (4.50-10.00)
[2023-07-29 11:41] LABS: BUN/Creat Ratio 17.25 Ratio (12.00-20.00); Blood Urea Nitrogen 6.9 mg/dL (9.0-27.0); Calcium 7.3 mg/dL (8.7-10.3); Carbon Dioxide 26.3 mmol/L (21.6-31.8); Chloride 102 mmol/L (96-109); Glucose 149 mg/dL (70-110); Potassium 3.6 mmol/L (3.5-5.5); Sodium 134 mmol/L (135-145)
[2023-07-29 12:20] LABS: Glucose,Whole Blood 135 mg/dL (70-110)
--- NOTE | 2023-07-29 13:51 | P.PN ---
Subjective Progress Note Date: 07/29/23 CHIEF COMPLAINT: Sacral decubitus ulcers HISTORY OF PRESENT ILLNESS: Surgical service following in regards to sacral decubitus ulcers. Patient requesting a diverting colostomy. He remains on antibiotics. Afebrile. WBC is down from 17-10.5 hemoglobin 8.2 sodium up from 125-134 PHYSICAL EXAM: VITAL SIGNS: Reviewed. GENERAL: Well-developed in no acute distress. ABDOMEN: Soft. Nondistended. Nontender. NEUROLOGIC: Alert and oriented. Cranial nerves II through XII grossly intact. Skin: Sacral decubitus ulcers with drainage and foul odor ASSESSMENT: 1. Stage IV sacral decubitus ulcers 2. Sepsis 3. Hyponatremia improving 4. Diabetes mellitus 5. Medical noncompliance PLAN: -Patient scheduled for diverting colostomy on 08/01/[address] Pabon -Patient scheduled for debridement of sacral decubitus ulcers on 08/02/2023 -Continue protein supplements -Continue antibiotic -Continue local wound care -Continue offloading -Continue to medically optimize patient for surgery on Tuesday Physician Tool [employer] Equipment Rental Clerk note has been reviewed by physician. Signing provider agrees with the documented findings, assessment, and plan of care. Objective - Vital Signs Vital signs: Vital Signs Temp 98.2 F 07/29/23 07:27 Pulse 74 07/29/23 07:27 Resp 18 07/29/23 07:27 BP 153/69 07/29/23 07:27 Pulse Ox 99 07/29/23 07:27 FiO2 Intake & Output 07/28/23 07/29/23 07/29/23 18:59 06:59 18:59 Output Total 500 1000 900 Balance -500 -1000 -900 Weight 58.967 kg Output: Urine 500 1000 900 Uretheral (Zee) 900 Other: Voiding Method Indwelling Catheter Indwelling Catheter Indwelling Catheter # Bowel Movements 1 - Labs CBC & Chem 7: 07/29/23 06:49 07/29/23 06:44 Labs: Abnormal Lab Results - Last 24 Hours (Table) 07/28/23 07/28/23 07/28/23 Range/Units 13:02 17:01 20:13 WBC (4.50-10.00) X 10*3/uL RBC (4.40-5.60) X 10*6/uL Hgb (13.0-17.0) g/dL Hct (39.6-50.0) % MCH (27.0-32.0) pg MCHC (32.0-37.0) g/dL RDW (11.5-14.5) % MPV (9.5-12.2) FL Immature Gran # (0.00-0.04) X 10*3/uL Eosinophils # (0.04-0.35) X 10*3/uL Sodium (135-145) mmol/L BUN (9.0-27.0) mg/dL Creatinine (0.6-1.5) mg/dL Glucose (70-110) mg/dL POC Glucose (mg/dL) 177 H 219 H 245 H (70-110) mg/dL Calcium (8.7-10.3) mg/dL 07/29/23 07/29/23 07/29/23 Range/Units 06:44 06:49 07:28 WBC 10.53 H (4.50-10.00) X 10*3/uL RBC 3.35 L (4.40-5.60) X 10*6/uL Hgb 8.2 L (13.0-17.0) g/dL Hct 27.0 L (39.6-50.0) % MCH 24.5 L (27.0-32.0) pg MCHC 30.4 L (32.0-37.0) g/dL RDW 15.1 H (11.5-14.5) % MPV 8.6 L (9.5-12.2) FL Immature Gran # 0.09 H (0.00-0.04) X 10*3/uL Eosinophils # 0.38 H (0.04-0.35) X 10*3/uL Sodium 134 L (135-145) mmol/L BUN 6.9 L (9.0-27.0) mg/dL Creatinine 0.4 L (0.6-1.5) mg/dL Glucose 149 H (70-110) mg/dL POC Glucose (mg/dL) 131 H (70-110) mg/dL Calcium 7.3 L (8.7-10.3) mg/dL 07/29/23 Range/Units 12:19 WBC (4.50-10.00) X 10*3/uL RBC (4.40-5.60) X 10*6/uL Hgb (13.0-17.0) g/dL Hct (39.6-50.0) % MCH (27.0-32.0) pg MCHC (32.0-37.0) g/dL RDW (11.5-14.5) % MPV (9.5-12.2) FL Immature Gran # (0.00-0.04) X 10*3/uL Eosinophils # (0.04-0.35) X 10*3/uL Sodium (135-145) mmol/L BUN (9.0-27.0) mg/dL Creatinine (0.6-1.5) mg/dL Glucose (70-110) mg/dL POC Glucose (mg/dL) 135 H (70-110) mg/dL Calcium (8.7-10.3) mg/dL Microbiology - Last 24 Hours (Table) 07/26/23 17:20 Blood Culture Gram Stain - Preliminary Blood Blood Culture - Preliminary Anaerobic Gm Positive Bacill 07/26/23 17:35 Blood Culture - Preliminary Blood 07/27/23 16:00 Gram Stain - Preliminary Buttock Wound Culture - Preliminary Gram Neg Bacilli Gram Neg Bacilli#2
--- NOTE | 2023-07-29 16:27 | P.PN ---
Subjective Progress Note Date: 07/29/23 Principal diagnosis: Reason for follow-up is infected sacral pressure ulcer Patient is a 63-year-old male with a past medical history significant for diabetes mellitus in this patient who did have a history of PAD s/p bilateral [id number] amputation and did have a stage IV sacral pressure ulcer that has been there for a few months, noncompliance with the previous IV and local care treatment presented to hospital with worsening wound and fever On today's evaluation that is 07/29/2023,the patient denies any fever or any chills, patient is breathing comfortably on room air, the patient denies chest pain shortness of breath and no significant cough, patient has been complaining of mostly sacral wound pain no nausea vomiting or diarrhea reported. Patient white count is down to 10.53, creatinine 0.4 blood culture with Clostridium wound culture showing gram-negative Objective - Vital Signs Vital signs: Vital Signs Temp 98.7 F 07/29/23 15:25 Pulse 81 07/29/23 15:25 Resp 16 07/29/23 15:25 BP 117/64 07/29/23 15:25 Pulse Ox 98 07/29/23 15:25 FiO2 Intake & Output 07/28/23 07/29/23 07/29/23 18:59 06:59 18:59 Output Total 500 1000 2000 Balance -500 -1000 -2000 Weight 58.967 kg Output: Urine 500 1000 2000 Uretheral (Zee) 900 Other: Voiding Method Indwelling Catheter Indwelling Catheter Indwelling Catheter # Bowel Movements 1 - Exam GENERAL DESCRIPTION: Middle-age male lying in bed in no distress RESPIRATORY SYSTEM: Unlabored breathing , decreased breath sounds at bases HEART: S1 S2 regular rate and rhythm , ABDOMEN: Soft , no tenderness EXTREMITIES: Bilateral AKA stump no redness or drainage - Labs CBC & Chem 7: 07/29/23 06:49 07/29/23 06:44 Labs: Abnormal Lab Results - Last 24 Hours (Table) 07/28/23 07/28/23 07/29/23 Range/Units 17:01 20:13 06:44 WBC (4.50-10.00) X 10*3/uL RBC (4.40-5.60) X 10*6/uL Hgb (13.0-17.0) g/dL Hct (39.6-50.0) % MCH (27.0-32.0) pg MCHC (32.0-37.0) g/dL RDW (11.5-14.5) % MPV (9.5-12.2) FL Immature Gran # (0.00-0.04) X 10*3/uL Eosinophils # (0.04-0.35) X 10*3/uL Sodium 134 L (135-145) mmol/L BUN 6.9 L (9.0-27.0) mg/dL Creatinine 0.4 L (0.6-1.5) mg/dL Glucose 149 H (70-110) mg/dL POC Glucose (mg/dL) 219 H 245 H (70-110) mg/dL Calcium 7.3 L (8.7-10.3) mg/dL 07/29/23 07/29/23 07/29/23 Range/Units 06:49 07:28 12:19 WBC 10.53 H (4.50-10.00) X 10*3/uL RBC 3.35 L (4.40-5.60) X 10*6/uL Hgb 8.2 L (13.0-17.0) g/dL Hct 27.0 L (39.6-50.0) % MCH 24.5 L (27.0-32.0) pg MCHC 30.4 L (32.0-37.0) g/dL RDW 15.1 H (11.5-14.5) % MPV 8.6 L (9.5-12.2) FL Immature Gran # 0.09 H (0.00-0.04) X 10*3/uL Eosinophils # 0.38 H (0.04-0.35) X 10*3/uL Sodium (135-145) mmol/L BUN (9.0-27.0) mg/dL Creatinine (0.6-1.5) mg/dL Glucose (70-110) mg/dL POC Glucose (mg/dL) 131 H 135 H (70-110) mg/dL Calcium (8.7-10.3) mg/dL Microbiology - Last 24 Hours (Table) 07/26/23 17:20 Blood Culture Gram Stain - Final Blood Blood Culture - Final Clostridium sporogenes 07/26/23 17:35 Blood Culture - Preliminary Blood 07/27/23 16:00 Gram Stain - Preliminary Buttock Wound Culture - Preliminary Gram Neg Bacilli Gram Neg Bacilli#2 Assessment and Plan (1) Sacral decubitus ulcer, stage IV Current Visit: Yes Status: Acute Code(s): L89.154 - PRESSURE ULCER OF SACRAL REGION, STAGE 4 SNOMED Code(s): 96790020596983 (2) Sacral osteomyelitis Current Visit: No Status: Acute Code(s): M46.28 - OSTEOMYELITIS OF VERTEBRA, SACRAL AND SACROCOCCYGEAL REGION SNOMED Code(s): 056807081 (3) Positive blood culture Current Visit: Yes Status: Acute Code(s): R78.81 - BACTEREMIA SNOMED Code(s): 912314275 Plan: 1patient was in the hospital with sepsis in this patient who did have a fever tachycardia elevated white count source is infected sacral pressure ulcer likely stage IV with underlying osteomyelitis in this patient wound has been there for couple of months now and noncompliance with treatment in the outpatient setting 2-positive blood culture more likely related to his infected sacral pressure ulcer, blood culture repeat document clearance of bacteremia 3-patient to continue with Zosyn 3.375 g every 8 hour, is scheduled for diverting colostomy followed by debridement of the wound next week Dictation was produced using [employer] ([employer]) dictation software. please excuse any grammatical, word or spelling errors. Time with Patient: Less than 30
[2023-07-29 17:41] LABS: Glucose,Whole Blood 160 mg/dL (70-110)
[2023-07-29] MEDS: LACTATED RINGERS 1,000 ML IV SCH (18:03)
--- NOTE | 2023-07-29 19:31 | P.PN ---
Progress Note - Text Progress Note Date: 07/29/23 Chief Complaint: Sacral wound This is a 63-year-old patient, follows with Dr. Mendez. Chronic stable medical conditions include ADHD, herniated disc lower back, smoker. Sacral wounds. Left AKA. right above-knee amputation by Dr. Zee on April 2023 Recently presented, not being compliant. Smoking cigarettes. Recreational drugs. Patient has not followed up for his PICC line antibiotics last discharge and was discharged on oral Augmentin. Patient has seen Dr. Zee from vascular and wound care Dr. Bahena. Patient's son lives with him. Patient now presents with worsening sacral wound. Eating fair. Continues to smoke cigarettes. Does marijuana. Tired. Some wheezing shortness of breath. June: Patient seen by Dr. Zee. Sacral decubitus wound will be followed by Dr. Pabon's team. For possible diverting colostomy. Patient is on IV Zosyn. Eating well. Urine drug screen was positive for opiates, amphetamines, methamphetamines, marijuana. Home pain medications were resumed. July 28: Patient being scheduled for diverting colostomy on Tuesday with Dr. Pabon. And debridement of sacral ulcer on Tuesday. Continue antibiotics. Patient eating well. Active Medications Acetaminophen (Acetaminophen Tab 325 Mg Tab) 650 mg PO Q6HR PRN PRN Reason: Mild Pain or Fever > 100.5 Last Admin: 07/29/23 00:42 Dose: 650 mg Hydrocodone Bitart/Acetaminophen (Hydrocodone/Apap 10-325mg 1 Each Tab) 1 each PO QID [facility] Last Admin: 07/29/23 18:04 Dose: 1 each Calcium Carbonate/Glycine (Calcium Carbonate 500 Mg Chewable) 1,000 mg PO Q4HR PRN PRN Reason: Dyspepsia Dextrose/Water (Dextrose 50% Syringe 50 Ml) 25 ml IVP PER PROTOCOL PRN; Protocol PRN Reason: Hypoglycemia Dextrose/Water (Dextrose 50% Syringe 50 Ml) 50 ml IVP PER PROTOCOL PRN; Protocol PRN Reason: Hypoglycemia Famotidine (Famotidine 20 Mg Tab) 20 mg PO BID [facility] Last Admin: 07/29/23 09:14 Dose: 20 mg Piperacillin Sod/Tazobactam (Sod 3.375 gm/ Sodium Chloride) 100 mls @ 25 mls/hr IVPB Q8H [facility]; Protocol Last Admin: 07/29/23 13:44 Dose: 25 mls/hr Lactated Ringer's (Lactated Ringers) 1,000 mls @ 75 mls/hr IV .[id number] [facility] Last Admin: 07/29/23 18:03 Dose: 75 mls/hr Insulin Aspart (Insulin Aspart (Novolog) 100 Unit/Ml Vial) 0 unit SQ ACHS [facility]; Protocol Last Admin: 07/29/23 18:03 Dose: 1 unit Insulin Detemir (Insulin Detemir (Levemir) 100 Unit/Ml Syr) 15 unit SQ HS [facility] Last Admin: 07/28/23 22:14 Dose: 15 unit Lactulose (Lactulose 20 Gm/30 Ml Cup) 20 gm PO DAILY PRN PRN Reason: Constipation Lorazepam (Lorazepam 0.5 Mg Tab) 0.5 mg PO Q6HR PRN PRN Reason: Anxiety Methocarbamol (Methocarbamol 500 Mg Tab) 500 mg PO QID [facility] Last Admin: 07/29/23 18:04 Dose: 500 mg Naloxone HCl (Naloxone 0.4 Mg/Ml 1 Ml Vial) 0.2 mg IV Q2M PRN PRN Reason: Opioid Reversal Ondansetron HCl (Ondansetron 4 Mg/2 Ml Vial) 4 mg IVP Q8HR PRN PRN Reason: Nausea And Vomiting Temazepam (Temazepam 15 Mg Cap) 15 mg PO HS PRN PRN Reason: Insomnia Past medical history to include: Diabetes, possible ADHD, chronic low back pain, herniated disc, atrial fibrillation. COPD. left above-knee amputation. Right below-knee amputation. Sacral wound Social history: Son lives with the patient. 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 Smokes about a pack a day, now down to a few cigarettes a day. Alcohol occasionally. Marijuana Physical examination: VITAL SIGNS: 99, 80, 17, 137 x 71, 98% room air GENERAL: Laying in bed comfortable EYES: Pupils equal. Conjunctiva normal. HEENT: External appearance of nose and ears normal, oral cavity grossly normal. NECK: JVD not raised; masses not palpable. HEART: First and second heart sounds are normal; no edema. LUNGS: Respiratory rate increased l; decreased breath sounds. No wheezing ABDOMEN: Soft, nontender, liver spleen not palpable, no masses palpable. PSYCH: Awake, answering questions appropriately MUSCULOSKELETAL: Left and right above-knee amputation, incisions with rosetta healing well. Sacral wound. NEUROLOGICAL: Moving all 4 limbs. INVESTIGATIONS, reviewed in the clinical context: July 28: White count 10.5 hemoglobin 8.2 platelets are 82 potassium 3.6 creatinine 0.4 Urine drug screen: Positive for opiates, amphetamines, meth amphetamines, marijuana July 26: White count 7.8 hemoglobin 10.3 platelets 522 sodium 125 potassium 4.7 BUN 13 creatinine 0.31 CRP 20.8 albumin 2.6 Assessment and plan: -Acute metabolic encephalopathy likely from recreational drugs. Patient last admission all the same presentation.: Better Urine drug screen positive for methamphetamines, amphetamines, opiates, marijuana -Right above-knee amputation by Dr. Zee on May 26. Cultures grew multiple organisms. discharged on June 03/2024 with IV ceftriaxone with a PICC line for 6 weeks. Patient never showed up for his IV antibiotics. Was subsequently discharged wit h Augmentin on the last visit -Sacral decubitus ulcer. With acute osteomyelitis. Patient has been noncompliant with his antibiotics Followed by Dr. Bahena from wound care center. Dr Pabon schedule new patient for debridement on August 01 IV Zosyn with ID Diverting colostomy scheduled by Dr. Pabon on July 31 -Paroxysmal atrial fibrillation: sinus rhythm Amiodarone. Lopressor. -Diabetes mellitus type 2, chronically on insulin Follow Accu-Cheks. -COPD in a current smoker Bronchodilators as needed -Chronic nicotine dependence, cigarette smoker Nicotine patch -Chronic medical debility. Non-ambulatory -Full code Surgery scheduled Jes Dr Pabon. IV Zosyn. Discussed with patient. Past Medical History Past Medical History: Diabetes Mellitus Additional Past Medical History / Comment(s): pressure ulcers[Buttock,simone heals ,rt lateral foot]. BLOOD "ECOLI" INFECTION. History of Any Multi-Drug Resistant Organisms: None Reported Past Surgical History: Orthopedic Surgery Additional Past Surgical History / Comment(s): back pain son states pt recently "slipped a disc" taking gabapentin. Left leg above the knee amputation. MICHELLE PICC LINE. Past Anesthesia/Blood Transfusion Reactions: No Reported Reaction Past Psychological History: No Psychological Hx Reported Smoking Status: Current every day smoker Past Alcohol Use History: Rare Past Drug Use History: None Reported
[2023-07-29 20:01] LABS: Glucose,Whole Blood 146 mg/dL (70-110)
[2023-07-30 07:00] LABS: Glucose,Whole Blood 79 mg/dL (70-110)
[2023-07-30 09:51] LABS: Basophils # (A) 0.07 X 10*3/uL (0.00-0.10); Basophils % (A) 0.7 %; Eosinophils # (A) 0.35 X 10*3/uL (0.04-0.35); Eosinophils % (A) 3.5 %; HCT 29.4 % (39.6-50.0); HGB 8.9 g/dL (13.0-17.0); Lymphocytes # (A) 2.11 X 10*3/uL (0.90-5.00); MCH 24.9 pg (27.0-32.0); MCHC 30.3 g/dL (32.0-37.0); MCV 82.1 FL (80.0-97.0); Mean Platelet Volume 8.5 FL (9.5-12.2); Monocytes # (A) 0.67 X 10*3/uL (0.20-1.00); Monocytes % (A) 6.7 %; NRBC Per 100 WBC 0 X 10*3/uL (0.00-0.01); Neutrophils # (A) 6.82 X 10*3/uL (1.80-7.70); Neutrophils % (A) 67.6 %; Platelet Count 442 X 10*3/uL (140-440); RBC 3.58 X 10*6/uL (4.40-5.60); RDW 15.1 % (11.5-14.5); WBC 10.07 X 10*3/uL (4.50-10.00)
[2023-07-30 09:56] LABS: BUN/Creat Ratio 22.67 Ratio (12.00-20.00); Blood Urea Nitrogen 6.8 mg/dL (9.0-27.0); Calcium 7.7 mg/dL (8.7-10.3); Chloride 102 mmol/L (96-109); Glucose 70 mg/dL (70-110); Potassium 4.2 mmol/L (3.5-5.5); Sodium 139 mmol/L (135-145)
[2023-07-30 12:01] LABS: Glucose,Whole Blood 193 mg/dL (70-110)
--- NOTE | 2023-07-30 13:32 | P.PN ---
Progress Note - Text Progress Note Date: 07/30/23 Chief Complaint: Sacral wound This is a 63-year-old patient, follows with Dr. Mendez. Chronic stable medical conditions include ADHD, herniated disc lower back, smoker. Sacral wounds. Left AKA. right above-knee amputation by Dr. Zee on April 2023 Recently presented, not being compliant. Smoking cigarettes. Recreational drugs. Patient has not followed up for his PICC line antibiotics last discharge and was discharged on oral Augmentin. Patient has seen Dr. Zee from vascular and wound care Dr. Bahena. Patient's son lives with him. Patient now presents with worsening sacral wound. Eating fair. Continues to smoke cigarettes. Does marijuana. Tired. Some wheezing shortness of breath. June: Patient seen by Dr. Zee. Sacral decubitus wound will be followed by Dr. Pabon's team. For possible diverting colostomy. Patient is on IV Zosyn. Eating well. Urine drug screen was positive for opiates, amphetamines, methamphetamines, marijuana. Home pain medications were resumed. July 28: Patient being scheduled for diverting colostomy on Tuesday with Dr. Pabon. And debridement of sacral ulcer on Tuesday. Continue antibiotics. Patient eating well. July 29: Laying in bed. Comfortable. Son and family visiting. Scheduled for surgery on Tuesday and Tuesday. Eating well. Antibiotics in place. Active Medications Acetaminophen (Acetaminophen Tab 325 Mg Tab) 650 mg PO Q6HR PRN PRN Reason: Mild Pain or Fever > 100.5 Last Admin: 07/29/23 00:42 Dose: 650 mg Hydrocodone Bitart/Acetaminophen (Hydrocodone/Apap 10-325mg 1 Each Tab) 1 each PO QID [facility] Last Admin: 07/30/23 12:43 Dose: 1 each Calcium Carbonate/Glycine (Calcium Carbonate 500 Mg Chewable) 1,000 mg PO Q4HR PRN PRN Reason: Dyspepsia Dextrose/Water (Dextrose 50% Syringe 50 Ml) 25 ml IVP PER PROTOCOL PRN; Protocol PRN Reason: Hypoglycemia Dextrose/Water (Dextrose 50% Syringe 50 Ml) 50 ml IVP PER PROTOCOL PRN; Protocol PRN Reason: Hypoglycemia Famotidine (Famotidine 20 Mg Tab) 20 mg PO BID [facility] Last Admin: 07/30/23 09:18 Dose: 20 mg Piperacillin Sod/Tazobactam (Sod 3.375 gm/ Sodium Chloride) 100 mls @ 25 mls/hr IVPB Q8H [facility]; Protocol Last Admin: 07/30/23 05:00 Dose: 25 mls/hr Lactated Ringer's (Lactated Ringers) 1,000 mls @ 75 mls/hr IV .[id number] [facility] Last Admin: 07/30/23 01:37 Dose: Not Given Insulin Aspart (Insulin Aspart (Novolog) 100 Unit/Ml Vial) 0 unit SQ ACHS [facility]; Protocol Last Admin: 07/30/23 12:43 Dose: 1 unit Insulin Detemir (Insulin Detemir (Levemir) 100 Unit/Ml Syr) 15 unit SQ HS [facility] Last Admin: 07/29/23 21:24 Dose: 15 unit Lactulose (Lactulose 20 Gm/30 Ml Cup) 20 gm PO DAILY PRN PRN Reason: Constipation Lorazepam (Lorazepam 0.5 Mg Tab) 0.5 mg PO Q6HR PRN PRN Reason: Anxiety Methocarbamol (Methocarbamol 500 Mg Tab) 500 mg PO QID [facility] Last Admin: 07/30/23 12:43 Dose: 500 mg Naloxone HCl (Naloxone 0.4 Mg/Ml 1 Ml Vial) 0.2 mg IV Q2M PRN PRN Reason: Opioid Reversal Ondansetron HCl (Ondansetron 4 Mg/2 Ml Vial) 4 mg IVP Q8HR PRN PRN Reason: Nausea And Vomiting Temazepam (Temazepam 15 Mg Cap) 15 mg PO HS PRN PRN Reason: Insomnia Past medical history to include: Diabetes, possible ADHD, chronic low back pain, herniated disc, atrial fibrillation. COPD. left above-knee amputation. Right below-knee amputation. Sacral wound Social history: Son lives with the patient. Worked at a [employer]. Smokes about a pack a day, now down to a few cigarettes a day. Alcohol occasionally. Marijuana Physical examination: VITAL SIGNS: 98.4, 81, 16, 135 x 68, 98% room air GENERAL: Laying in bed comfortable EYES: Pupils equal. Conjunctiva normal. HEENT: External appearance of nose and ears normal, oral cavity grossly normal. NECK: JVD not raised; masses not palpable. HEART: First and second heart sounds are normal; no edema. LUNGS: Respiratory rate increased l; decreased breath sounds. No wheezing ABDOMEN: Soft, nontender, liver spleen not palpable, no masses palpable. PSYCH: Awake, answering questions appropriately MUSCULOSKELETAL: Left and right above-knee amputation, incisions with rosetta healing well. Sacral wound. NEUROLOGICAL: Moving all 4 limbs. INVESTIGATIONS, reviewed in the clinical context: Blood culture [July 26] Clostridium sporogenes Wound culture: E. coli/Proteus mirabilis/beta-hemolytic Streptococcus. July 29: White count 10.0 hemoglobin 8.9 platelets 442 potassium 4.2 creatinine 0.3 July 28: White count 10.5 hemoglobin 8.2 platelets are 82 potassium 3.6 creatinine 0.4 Urine drug screen: Positive for opiates, amphetamines, meth amphetamines, marijuana July 26: White count 7.8 hemoglobin 10.3 platelets 522 sodium 125 potassium 4.7 BUN 13 creatinine 0.31 CRP 20.8 albumin 2.6 Assessment and plan: -Acute metabolic encephalopathy from recreational drugs. Patient last admission all the same presentation.: Improved Urine drug screen positive for methamphetamines, amphetamines, opiates, marijuana -Right above-knee amputation by Dr. Zee on May 26. Cultures grew multiple organisms. discharged on June 03/2024 with IV ceftriaxone with a PICC line for 6 weeks. Patient never showed up for his IV antibiotics. Was subsequently discharged with Augmentin on the last visit -Sacral decubitus ulcer. With acute osteomyelitis. Patient has been noncompliant with his antibiotics Followed by Dr. Bahena from wound care center. Dr Pabon schedule - for debridement on August 01 IV Zosyn with ID Diverting colostomy scheduled by Dr. Pabon on July 31 -Blood cultures positive for Clostridium Sporogenes -Paroxysmal atrial fibrillation: sinus rhythm Amiodarone. Lopressor. -Diabetes mellitus type 2, chronically on insulin Follow Accu-Cheks. -COPD in a current smoker Bronchodilators as needed -Chronic nicotine dependence, cigarette smoker Nicotine patch -Chronic medical debility. Non-ambulatory -Full code Continue IV Zosyn. Patient did confirm that he was taking street drugs. Easily available. Follow with ID and surgery. Past Medical History Past Medical History: Diabetes Mellitus Additional Past Medical History / Comment(s): pressure ulcers[Buttock,simone heals ,rt lateral foot]. BLOOD "ECOLI" INFECTION. History of Any Multi-Drug Resistant Organisms: None Reported Past Surgical History: Orthopedic Surgery Additional Past Surgical History / Comment(s): back pain son states pt recently "slipped a disc" taking gabapentin. Left leg above the knee amputation. MICHELLE PICC LINE. Past Anesthesia/Blood Transfusion Reactions: No Reported Reaction Past Psychological History: No Psychological Hx Reported Smoking Status: Current every day smoker Past Alcohol Use History: Rare Past Drug Use History: None Reported
--- NOTE | 2023-07-30 14:11 | P.PN ---
Subjective Progress Note Date: 07/30/23 NAEON. No F/C. No SOB or CP. No abdominal pain. Objective - Vital Signs Vital signs: Vital Signs Temp 99.1 F 07/30/23 13:31 Pulse 75 07/30/23 13:31 Resp 16 07/30/23 13:31 BP 122/69 07/30/23 13:31 Pulse Ox 98 07/30/23 13:31 FiO2 Intake & Output 07/29/23 07/30/23 07/30/23 18:59 06:59 18:59 Intake Total 1640 Output Total 3100 2100 1450 Balance -3100 -460 -1450 Intake: Intake, IV Titration 1100 Amount Lactated Ringers 1,000 ml 900 @ 75 mls/hr IV .[id number] [facility] Rx#:[id number] Piperacillin-Tazobactam 3 200 .375 gm In Sodium Chloride 0.9% 100 ml @ 25 mls/hr IVPB Q8H [facility] Rx#: [id number] Oral 540 Output: Urine 3100 2100 1450 Uretheral (Zee) 900 Other: Voiding Method Indwelling Catheter Indwelling Catheter Indwelling Catheter # Bowel Movements 1 2 - Exam Gen: NAD Pulm; Non-labored respirations Abd: soft, non-tender, non-distended. No guarding/rebound/rigidity Extrem: no edema seen - Labs CBC & Chem 7: 07/30/23 06:34 07/30/23 06:34 Labs: Abnormal Lab Results - Last 24 Hours (Table) 07/29/23 07/29/23 07/30/23 Range/Units 17:38 19:59 06:34 WBC 10.07 H (4.50-10.00) X 10*3/uL RBC 3.58 L (4.40-5.60) X 10*6/uL Hgb 8.9 L (13.0-17.0) g/dL Hct 29.4 L (39.6-50.0) % MCH 24.9 L (27.0-32.0) pg MCHC 30.3 L (32.0-37.0) g/dL RDW 15.1 H (11.5-14.5) % Plt Count 442 H (140-440) X 10*3/uL MPV 8.5 L (9.5-12.2) FL Immature Gran # 0.05 H (0.00-0.04) X 10*3/uL BUN (9.0-27.0) mg/dL Creatinine (0.6-1.5) mg/dL BUN/Creatinine Ratio (12.00-20.00) Ratio POC Glucose (mg/dL) 160 H 146 H (70-110) mg/dL Calcium (8.7-10.3) mg/dL 07/30/23 07/30/23 Range/Units 06:34 11:59 WBC (4.50-10.00) X 10*3/uL RBC (4.40-5.60) X 10*6/uL Hgb (13.0-17.0) g/dL Hct (39.6-50.0) % MCH (27.0-32.0) pg MCHC (32.0-37.0) g/dL RDW (11.5-14.5) % Plt Count (140-440) X 10*3/uL MPV (9.5-12.2) FL Immature Gran # (0.00-0.04) X 10*3/uL BUN 6.8 L (9.0-27.0) mg/dL Creatinine 0.3 L (0.6-1.5) mg/dL BUN/Creatinine Ratio 22.67 H (12.00-20.00) Ratio POC Glucose (mg/dL) 193 H (70-110) mg/dL Calcium 7.7 L (8.7-10.3) mg/dL Microbiology - Last 24 Hours (Table) 07/26/23 17:35 Blood Culture - Preliminary Blood 07/27/23 16:00 Gram Stain - Final Buttock Wound Culture - Final Escherichia coli Proteus mirabilis Beta Hemolytic Streptococcus F 07/26/23 17:20 Blood Culture Gram Stain - Final Blood Blood Culture - Final Clostridium sporogenes Assessment and Plan Assessment: ASSESSMENT: 1. Stage IV sacral decubitus ulcers 2. Sepsis 3. Hyponatremia improving 4. Diabetes mellitus 5. Medical noncompliance Plan: PLAN: -Patient scheduled for diverting colostomy on 08/01/[address] Pabon -Patient scheduled for debridement of sacral decubitus ulcers on 08/02/2023 -Continue protein supplements -Continue antibiotic -Continue local wound care -Continue offloading -Continue to medically optimize patient for surgery on Tuesday Sridhar Krishnan MD General Surgery
[2023-07-30 17:08] LABS: Glucose,Whole Blood 218 mg/dL (70-110)
[2023-07-30 20:27] LABS: Glucose,Whole Blood 199 mg/dL (70-110)
--- NOTE | 2023-07-30 21:52 | P.PN ---
Subjective Progress Note Date: 07/30/23 Principal diagnosis: Reason for follow-up is infected sacral pressure ulcer Patient is a 63-year-old male with a past medical history significant for diabetes mellitus in this patient who did have a history of PAD s/p bilateral [id number] amputation and did have a stage IV sacral pressure ulcer that has been there for a few months, noncompliance with the previous IV and local care treatment presented to hospital with worsening wound and fever On today's evaluation that is 07/30/2023,the patient remains to be afebrile, patient is on room air not requiring supplemental oxygen and denies any shortness of breath no chest pain or cough.Patient denies having any nausea or vomiting, no abdominal pain and no diarrhea, still complaining of pain to the sacral wound area. Patient did have white count of 10.07, creatinine 0.3 Objective - Vital Signs Vital signs: Vital Signs Temp 99.1 F 07/30/23 13:31 Pulse 75 07/30/23 13:31 Resp 16 07/30/23 13:31 BP 122/69 07/30/23 13:31 Pulse Ox 98 07/30/23 13:31 FiO2 Intake & Output 07/29/23 07/30/23 07/30/23 18:59 06:59 18:59 Intake Total 1640 Output Total 3100 2100 1450 Balance -3100 -460 -1450 Intake: Intake, IV Titration 1100 Amount Lactated Ringers 1,000 ml 900 @ 75 mls/hr IV .[id number] [facility] Rx#:[id number] Piperacillin-Tazobactam 3 200 .375 gm In Sodium Chloride 0.9% 100 ml @ 25 mls/hr IVPB Q8H [facility] Rx#: [id number] Oral 540 Output: Urine 3100 2100 1450 Uretheral (Zee) 900 Other: Voiding Method Indwelling Catheter Indwelling Catheter Indwelling Catheter # Bowel Movements 1 2 - Exam GENERAL DESCRIPTION: Middle-age male lying in bed in no distress RESPIRATORY SYSTEM: Unlabored breathing , decreased breath sounds at bases HEART: S1 S2 regular rate and rhythm , ABDOMEN: Soft , no tenderness EXTREMITIES: Bilateral AKA stump no redness or drainage - Labs CBC & Chem 7: 07/30/23 06:34 07/30/23 06:34 Labs: Abnormal Lab Results - Last 24 Hours (Table) 07/29/23 07/29/23 07/30/23 Range/Units 17:38 19:59 06:34 WBC 10.07 H (4.50-10.00) X 10*3/uL RBC 3.58 L (4.40-5.60) X 10*6/uL Hgb 8.9 L (13.0-17.0) g/dL Hct 29.4 L (39.6-50.0) % MCH 24.9 L (27.0-32.0) pg MCHC 30.3 L (32.0-37.0) g/dL RDW 15.1 H (11.5-14.5) % Plt Count 442 H (140-440) X 10*3/uL MPV 8.5 L (9.5-12.2) FL Immature Gran # 0.05 H (0.00-0.04) X 10*3/uL BUN (9.0-27.0) mg/dL Creatinine (0.6-1.5) mg/dL BUN/Creatinine Ratio (12.00-20.00) Ratio POC Glucose (mg/dL) 160 H 146 H (70-110) mg/dL Calcium (8.7-10.3) mg/dL 07/30/23 07/30/23 Range/Units 06:34 11:59 WBC (4.50-10.00) X 10*3/uL RBC (4.40-5.60) X 10*6/uL Hgb (13.0-17.0) g/dL Hct (39.6-50.0) % MCH (27.0-32.0) pg MCHC (32.0-37.0) g/dL RDW (11.5-14.5) % Plt Count (140-440) X 10*3/uL MPV (9.5-12.2) FL Immature Gran # (0.00-0.04) X 10*3/uL BUN 6.8 L (9.0-27.0) mg/dL Creatinine 0.3 L (0.6-1.5) mg/dL BUN/Creatinine Ratio 22.67 H (12.00-20.00) Ratio POC Glucose (mg/dL) 193 H (70-110) mg/dL Calcium 7.7 L (8.7-10.3) mg/dL Microbiology - Last 24 Hours (Table) 07/26/23 17:35 Blood Culture - Preliminary Blood 07/27/23 16:00 Gram Stain - Final Buttock Wound Culture - Final Escherichia coli Proteus mirabilis Beta Hemolytic Streptococcus F 07/26/23 17:20 Blood Culture Gram Stain - Final Blood Blood Culture - Final Clostridium sporogenes Assessment and Plan (1) Sacral decubitus ulcer, stage IV Current Visit: Yes Status: Acute Code(s): L89.154 - PRESSURE ULCER OF SACRAL REGION, STAGE 4 SNOMED Code(s): 00238409043570 (2) Sacral osteomyelitis Current Visit: No Status: Acute Code(s): M46.28 - OSTEOMYELITIS OF VERTEBRA, SACRAL AND SACROCOCCYGEAL REGION SNOMED Code(s): 208317022 (3) Positive blood culture Current Visit: Yes Status: Acute Code(s): R78.81 - BACTEREMIA SNOMED Code(s): 089361405 Plan: 1patient was in the hospital with sepsis in this patient who did have a fever tachycardia elevated white count source is infected sacral pressure ulcer likely stage IV with underlying osteomyelitis in this patient wound has been there for couple of months now and noncompliance with treatment in the outpatient setting 2-positive blood culture more likely related to his infected sacral pressure ulcer, blood culture repeat document clearance of bacteremia 3-The patient local culture currently growing E. coli and Proteus and beta- hemolytic Streptococcus and the patient is covered with Zosyn which should be continued and await surgical procedure scheduled for next week Dictation was produced using [employer] dictation software. please excuse any grammatical, word or spelling errors.
[2023-07-31 07:45] LABS: Glucose,Whole Blood 146 mg/dL (70-110)
[2023-07-31 12:05] LABS: Glucose,Whole Blood 124 mg/dL (70-110)
--- NOTE | 2023-07-31 12:19 | P.PN ---
Subjective Progress Note Date: 07/31/23 Principal diagnosis: Reason for follow-up is infected sacral pressure ulcer Patient is a 63-year-old male with a past medical history significant for diabetes mellitus in this patient who did have a history of PAD s/p bilateral [id number] amputation and did have a stage IV sacral pressure ulcer that has been there for a few months, noncompliance with the previous IV and local care treatment presented to hospital with worsening wound and fever On today's evaluation that is 07/31/2023, the patient continues to be afebrile, the patient is on room air and breathing comfortably, the Pt denies having any chest pain or cough, the patient denies having any abdominal pain no vomiting or any diarrhea has been reported by the nursing staff. No new labs has been repeated today Objective - Vital Signs Vital signs: Vital Signs Temp 98.4 F 07/31/23 07:38 Pulse 83 07/31/23 07:38 Resp 18 07/31/23 07:38 BP 132/67 07/31/23 07:38 Pulse Ox 96 07/31/23 07:38 FiO2 Intake & Output 07/30/23 07/31/23 07/31/23 18:59 06:59 18:59 Intake Total 100 Output Total 0 2600 1000 Balance -2049 -260 -900 Intake: Oral 100 Output: Urine 2049 2600 1000 Other: Voiding Method Indwelling Catheter Indwelling Catheter Indwelling Catheter # Bowel Movements 1 3 - Exam GENERAL DESCRIPTION: Middle-age male lying in bed in no distress RESPIRATORY SYSTEM: Unlabored breathing , decreased breath sounds at bases HEART: S1 S2 regular rate and rhythm , ABDOMEN: Soft , no tenderness EXTREMITIES: Bilateral AKA stump no redness or drainage - Labs CBC & Chem 7: 07/30/23 06:34 07/30/23 06:34 Labs: Abnormal Lab Results - Last 24 Hours (Table) 07/30/23 07/30/23 07/31/23 Range/Units 17:07 20:26 07:43 POC Glucose (mg/dL) 218 H 199 H 146 H (70-110) mg/dL 07/31/23 Range/Units 12:04 POC Glucose (mg/dL) 124 H (70-110) mg/dL Assessment and Plan (1) Sacral decubitus ulcer, stage IV Current Visit: Yes Status: Acute Code(s): L89.154 - PRESSURE ULCER OF SACRAL REGION, STAGE 4 SNOMED Code(s): 56976238713703 (2) Sacral osteomyelitis Current Visit: No Status: Acute Code(s): M46.28 - OSTEOMYELITIS OF VERTEBRA, SACRAL AND SACROCOCCYGEAL REGION SNOMED Code(s): 233998087 (3) Positive blood culture Current Visit: Yes Status: Acute Code(s): R78.81 - BACTEREMIA SNOMED Code(s): 530149354 Plan: 1patient was in the hospital with sepsis in this patient who did have a fever tachycardia elevated white count source is infected sacral pressure ulcer likely stage IV with underlying osteomyelitis in this patient wound has been there for couple of months now and noncompliance with treatment in the outpatient setting 2-positive blood culture more likely related to his infected sacral pressure ulcer, blood culture has been repeated to document clearance of bacteremia 3-The patient local culture currently growing E. coli and Proteus and beta- hemolytic Streptococcus 4-patient to continue with Zosyn await diverting colostomy followed by surgical debridement scheduled for the next 2 days Dictation was produced using [employer] dictation software. please excuse any grammatical, word or spelling errors. Time with Patient: Less than 30
--- NOTE | 2023-07-31 15:23 | P.PN ---
Progress Note - Text Progress Note Date: 07/31/23 Chief Complaint: Sacral wound This is a 63-year-old patient, follows with Dr. Mendez. Chronic stable medical conditions include ADHD, herniated disc lower back, smoker. Sacral wounds. Left AKA. right above-knee amputation by Dr. Zee on April 2023 Recently presented, not being compliant. Smoking cigarettes. Recreational drugs. Patient has not followed up for his PICC line antibiotics last discharge and was discharged on oral Augmentin. Patient has seen Dr. Zee from vascular and wound care Dr. Bahena. Patient's son lives with him. Patient now presents with worsening sacral wound. Eating fair. Continues to smoke cigarettes. Does marijuana. Tired. Some wheezing shortness of breath. June: Patient seen by Dr. Zee. Sacral decubitus wound will be followed by Dr. Pabon's team. For possible diverting colostomy. Patient is on IV Zosyn. Eating well. Urine drug screen was positive for opiates, amphetamines, methamphetamines, marijuana. Home pain medications were resumed. July 28: Patient being scheduled for diverting colostomy on Tuesday with Dr. Pabon. And debridement of sacral ulcer on Tuesday. Continue antibiotics. Patient eating well. July 2: Laying in bed. Comfortable. Son and family visiting. Scheduled for surgery on Tuesday and Tuesday. Eating well. Antibiotics in place. July 30: Comfortable. Tolerating diet. Pending surgery tomorrow for diverting colostomy. Discussed with patient. Active Medications Acetaminophen (Acetaminophen Tab 325 Mg Tab) 650 mg PO Q6HR PRN PRN Reason: Mild Pain or Fever > 100.5 Last Admin: 07/29/23 00:42 Dose: 650 mg Hydrocodone Bitart/Acetaminophen (Hydrocodone/Apap 10-325mg 1 Each Tab) 1 each PO QID [facility] Last Admin: 07/31/23 13:44 Dose: 1 each Calcium Carbonate/Glycine (Calcium Carbonate 500 Mg Chewable) 1,000 mg PO Q4HR PRN PRN Reason: Dyspepsia Dextrose/Water (Dextrose 50% Syringe 50 Ml) 25 ml IVP PER PROTOCOL PRN; Protocol PRN Reason: Hypoglycemia Dextrose/Water (Dextrose 50% Syringe 50 Ml) 50 ml IVP PER PROTOCOL PRN; Pro tocol PRN Reason: Hypoglycemia Famotidine (Famotidine 20 Mg Tab) 20 mg PO BID [facility] Last Admin: 07/31/23 08:15 Dose: 20 mg Piperacillin Sod/Tazobactam (Sod 3.375 gm/ Sodium Chloride) 100 mls @ 25 mls/hr IVPB Q8H [facility]; Protocol Last Admin: 07/31/23 13:44 Dose: 25 mls/hr Lactated Ringer's (Lactated Ringers) 1,000 mls @ 75 mls/hr IV .[id number] [facility] Last Admin: 07/31/23 04:58 Dose: 75 mls/hr Insulin Aspart (Insulin Aspart (Novolog) 100 Unit/Ml Vial) 0 unit SQ ACHS [facility]; Protocol Last Admin: 07/31/23 12:08 Dose: Not Given Insulin Detemir (Insulin Detemir (Levemir) 100 Unit/Ml Syr) 15 unit SQ HS [facility] Last Admin: 07/30/23 21:07 Dose: 15 unit Lactulose (Lactulose 20 Gm/30 Ml Cup) 20 gm PO DAILY PRN PRN Reason: Constipation Lorazepam (Lorazepam 0.5 Mg Tab) 0.5 mg PO Q6HR PRN PRN Reason: Anxiety Methocarbamol (Methocarbamol 500 Mg Tab) 500 mg PO QID [facility] Last Admin: 07/31/23 13:44 Dose: 500 mg Naloxone HCl (Naloxone 0.4 Mg/Ml 1 Ml Vial) 0.2 mg IV Q2M PRN PRN Reason: Opioid Reversal Ondansetron HCl (Ondansetron 4 Mg/2 Ml Vial) 4 mg IVP Q8HR PRN PRN Reason: Nausea And Vomiting Temazepam (Temazepam 15 Mg Cap) 15 mg PO HS PRN PRN Reason: Insomnia Past medical history to include: Diabetes, possible ADHD, chronic low back pain, herniated disc, atrial fibrillation. COPD. left above-knee amputation. Right below-knee amputation. Sacral wound Social history: Son lives with the patient. 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 Smokes about a pack a day, now down to a few cigarettes a day. Alcohol occasionally. Marijuana Physical examination: VITAL SIGNS: 98.9, 75, 17, 133 x 76, 98% room air GENERAL: Laying in bed comfortable EYES: Pupils equal. Conjunctiva normal. HEENT: External appearance of nose and ears normal, oral cavity grossly normal. NECK: JVD not raised; masses not palpable. HEART: First and second heart sounds are normal; no edema. LUNGS: Respiratory rate increased l; decreased breath sounds. No wheezing ABDOMEN: Soft, nontender, liver spleen not palpable, no masses palpable. PSYCH: Awake, answering questions appropriately MUSCULOSKELETAL: Left and right above-knee amputation, incisions with rosetta healing well. Sacral wound. NEUROLOGICAL: Moving all 4 limbs. INVESTIGATIONS, reviewed in the clinical context: Blood culture [July 26] Clostridium sporogenes Wound culture: E. coli/Proteus mirabilis/beta-hemolytic Streptococcus. July 29: White count 10.0 hemoglobin 8.9 platelets 442 potassium 4.2 creatinine 0.3 July 28: White count 10.5 hemoglobin 8.2 platelets are 82 potassium 3.6 creatinine 0.4 Urine drug screen: Positive for opiates, amphetamines, meth amphetamines, marijuana July 26: White count 7.8 hemoglobin 10.3 platelets 522 sodium 125 potassium 4.7 BUN 13 creatinine 0.31 CRP 20.8 albumin 2.6 Assessment and plan: -Acute metabolic encephalopathy from recreational drugs. Patient last admission all the same presentation.: Improved Urine drug screen positive for methamphetamines, amphetamines, opiates, marijuana -Right above-knee amputation by Dr. Zee on May 26. Cultures grew multiple organisms. discharged on June 03/2024 with IV ceftriaxone with a PICC line for 6 weeks. Patient never showed up for his IV antibiotics. Was subsequently discharged with Augmentin on the last visit -Sacral decubitus ulcer. With acute osteomyelitis. Patient has been noncompliant with his antibiotics Followed by Dr. Bahena from wound care center. Dr Pabon schedule - for debridement on August 01 IV Zosyn with ID Diverting colostomy scheduled by Dr. Pabon on July 31 -Blood cultures positive for Clostridium Sporogenes -Paroxysmal atrial fibrillation: sinus rhythm Amiodarone. Lopressor. -Diabetes mellitus type 2, chronically on insulin Follow Accu-Cheks. -COPD in a current smoker Bronchodilators as needed -Chronic nicotine dependence, cigarette smoker Nicotine patch -Chronic medical debility. Non-ambulatory -Full code IV Zosyn. Pending diverting colostomy tomorrow. Past Medical History Past Medical History: Diabetes Mellitus Additional Past Medical History / Comment(s): pressure ulcers[Buttock,simone heals ,rt lateral foot]. BLOOD "ECOLI" INFECTION. History of Any Multi-Drug Resistant Organisms: None Reported Past Surgical History: Orthopedic Surgery Additional Past Surgical History / Comment(s): back pain son states pt recently "slipped a disc" taking gabapentin. Left leg above the knee amputation. MICHELLE PICC LINE. Past Anesthesia/Blood Transfusion Reactions: No Reported Reaction Past Psychological History: No Psychological Hx Reported Smoking Status: Current every day smoker Past Alcohol Use History: Rare Past Drug Use History: None Reported
[2023-07-31 17:04] LABS: Glucose,Whole Blood 208 mg/dL (70-110)
--- NOTE | 2023-07-31 17:24 | P.PN ---
Subjective Progress Note Date: 07/31/23 CHIEF COMPLAINT: Complicated decubital ulcer HISTORY OF PRESENT ILLNESS: The patient is a 63-year-old male with recurrent poorly healing recurrent decubital ulcer. He is resting comfortably. No new ov ernight issues. ROS: No reports of nausea and vomiting. No fevers or chills. No new chest pain. No productive sputum PHYSICAL EXAM: VITAL SIGNS: Reviewed CONSTITUTIONAL: Well developed and in no acute distress. EYES: Conjuctivae without sclera icterus. Extraocular movements grossly intact. HEAD, EARS, NOSE, THROAT: Moist buccal mucosa. Head is atraumatic, normocephalic. Hears conversational speech. No nasal drainage. RESPIRATORY: Non-labored respirations and equal bilateral excursions. CARDIOVASCULAR: Palpable 2+ radial pulses. ABDOMEN: No peritonitis. MUSCULOSKELETAL: No gross deformity of the lower extremities noted. No clubbing. No cyanosis. SKIN: Good skin turgor. Well perfused. NEUROLOGIC: Cranial nerves II through XII grossly intact. No focal or lateralizing signs. PSYCH: Alert and oriented to person, place and time. CLINICAL LABS: Reviewed. WBC elevated, leukocytosis ASSESSMENT: 1. Complicated sacral cubitus ulcer PLAN: 1. Patient planned for diverting ostomy prior to further debridement. Objective - Vital Signs Vital signs: Vital Signs Temp 98.9 F 07/31/23 13:11 Pulse 75 07/31/23 13:11 Resp 17 07/31/23 13:11 BP 133/76 07/31/23 13:11 Pulse Ox 98 07/31/23 13:11 FiO2 Intake & Output 07/30/23 07/31/23 07/31/23 18:59 06:59 18:59 Intake Total 340 Output Total 2049 2600 1725 Balance -[id number] 1385 Intake: Oral 340 Output: Urine 2049 2600 1725 Other: Voiding Method Indwelling Catheter Indwelling Catheter Indwelling Catheter # Bowel Movements 1 3 - Labs CBC & Chem 7: 07/30/23 06:34 07/30/23 06:34 Labs: Abnormal Lab Results - Last 24 Hours (Table) 07/30/23 07/31/23 07/31/23 Range/Units 20:26 07:43 12:04 POC Glucose (mg/dL) 199 H 146 H 124 H (70-110) mg/dL 07/31/23 Range/Units 17:01 POC Glucose (mg/dL) 208 H (70-110) mg/dL
[2023-07-31 21:14] LABS: Glucose,Whole Blood 124 mg/dL (70-110)
[2023-08-01 05:38] LABS: Basophils # (A) 0.1 k/uL (0-0.2); Basophils % (A) 1 %; Eosinophils # (A) 0.4 k/uL (0-0.7); Eosinophils % (A) 5 %; HCT 32.9 % (39.0-53.0); HGB 10.1 gm/dL (13.0-17.5); Hypochromasia Moderate; Lymphocytes # (A) 1.7 k/uL (1.0-4.8); Lymphocytes % (A) 21 %; MCH 25.4 pg (25.0-35.0); MCHC 30.6 g/dL (31.0-37.0); MCV 82.8 fL (80.0-100.0); Mean Platelet Volume 6.6; Monocytes # (A) 0.4 k/uL (0-1.0); Monocytes % (A) 5 %; Neutrophils # (A) 5.5 k/uL (1.3-7.7); Neutrophils % (A) 68 %; Platelet Count 515 k/uL (150-450); RBC 3.98 m/uL (4.30-5.90); RDW 15.6 % (11.5-15.5); WBC 8.1 k/uL (3.8-10.6)
[2023-08-01 06:01] LABS: African American GFR (CKD) >90 (>60 ml/min/1.73 sqM); Anion Gap -2 mmol/L; Blood Urea Nitrogen 13 mg/dL (9-20); Calcium 7.9 mg/dL (8.4-10.2); Carbon Dioxide 33 mmol/L (22-30); Chloride 101 mmol/L (98-107); Glucose 231 mg/dL (74-99); Non-African American GFR(CKD) >90 (>60 ml/min/1.73 sqM); Potassium 4.9 mmol/L (3.5-5.1); Sodium 132 mmol/L (137-145)
[2023-08-01 07:58] LABS: Glucose,Whole Blood 193 mg/dL (70-110)
[2023-08-01] MEDS ORDERED: LIDOCAINE 1% (10MG/ML) FOR IV START INTRADERMA PRN (11:26)
[2023-08-01] MEDS: LACTATED RINGERS 1,000 ML IV SCH (11:27)
[2023-08-01] MEDS: DEXAMETHASONE SOD PHOSPHATE 4 MG/ML 1 ML VIAL IV ONE (11:55)
[2023-08-01] MEDS: ONDANSETRON 4 MG/2 ML VIAL IVP ONE (11:55)
[2023-08-01] MEDS: fentaNYL (PF) 50 MCG/ML 2 ML AMP IVP ONE ×2 (11:58→12:09)
[2023-08-01] MEDS: MIDAZOLAM 2 MG/2 ML VIAL IVP ONE (11:58)
[2023-08-01] MEDS ORDERED: ROPIVACAINE 250 MG, HYDROMORPHONE (PF) 5 MG in SODIUM CHLORIDE 0.9% 200 ML EPIDURAL PRN (12:19)
[2023-08-01] MEDS ORDERED: ONDANSETRON 4 MG/2 ML VIAL IVP PRN (12:19)
[2023-08-01] MEDS ORDERED: NALOXONE 0.4 MG/ML 1 ML VIAL IV PRN (12:19)
--- NOTE | 2023-08-01 12:19 | P.ANPRN ---
Procedure Note - Anesthesia - Epidural/Spinal Epidural Continuous Time Out Performed: Yes Date of Procedure: 08/01/23 Procedure Start Time: 12:00 Procedure Stop Time: 12:09 Location of Patient: PreOp Indication: Acute Post-Operative Pain, Requested by Surgeon Sedation Type: Sedate with meaningful contact maintained Preparation: Sterile Dressing Position: Left Lateral Catheter: Indwelling Needle Guage: 18 Blood Aspirated: No Pain Paresthesia on Injection Noted: No Events: Uneventful and Well Tolerated
[2023-08-01 12:20] LABS: Glucose,Whole Blood 113 mg/dL (70-110)
[2023-08-01] MEDS ORDERED: LIDOCAINE 1% INJ 10MG/ML (20 ML MDV) ONE (12:24)
[2023-08-01] MEDS ORDERED: NEOSTIGMINE 1 MG/ML 10 ML VIAL ONE (12:24)
[2023-08-01] MEDS ORDERED: PROPOFOL 10 MG/ML 20 ML VIAL IV ONE (12:24)
[2023-08-01] MEDS ORDERED: GLYCOPYRROLATE 0.2 MG/ML 2 ML VIAL ONE (12:24)
[2023-08-01] MEDS ORDERED: ROCURONIUM 10 MG/ML (5 ML VIAL) IV ONE (12:24)
[2023-08-01] MEDS ORDERED: PHENYLEPHRINE-0.9% NACL SYG 1,000 MCG/10 ML SYRINGE ONE (12:24)
[2023-08-01] MEDS ORDERED: ePHEDrine 50 MG/ML 1 ML VIAL ONE (12:24)
--- NOTE | 2023-08-01 12:44 | P.PN ---
Subjective Progress Note Date: 08/01/23 CHIEF COMPLAINT: Sacral decubitus ulcers HISTORY OF PRESENT ILLNESS: Surgical service following in regards to sacral decubitus ulcers. Patient scheduled for diverting colostomy today. He has no new complaints. Vital stable. He did have a low-grade temp of 100.1 last night. WBC 8.1 Hgb 10.1 platelets 515 sodium is 132 PHYSICAL EXAM: VITAL SIGNS: Reviewed. GENERAL: Well-developed in no acute distress. ABDOMEN: Soft. Nondistended. Nontender. NEUROLOGIC: Alert and oriented. Cranial nerves II through XII grossly intact. Skin: Sacral decubitus ulcers with drainage and foul odor ASSESSMENT: 1. Stage IV sacral decubitus ulcers 2. Sepsis 3. Hyponatremia improving 4. Diabetes mellitus 5. Medical noncompliance PLAN: -Patient scheduled for diverting colostomy today, 08/01/[address] Pabon -Patient scheduled for debridement of sacral decubitus ulcers on 08/02/2023 -Keep patient n.p.o. -Continue antibiotic Physician Reinsurance Claim Analyst note has been reviewed by physician. Signing provider agrees with the documented findings, assessment, and plan of care. Objective - Vital Signs Vital signs: Vital Signs Temp 96.8 F L 08/01/23 11:40 Pulse 79 08/01/23 11:40 Resp 12 08/01/23 11:40 BP 119/62 08/01/23 11:40 Pulse Ox 97 08/01/23 11:40 FiO2 Intake & Output 07/31/23 08/01/23 08/01/23 18:59 06:59 18:59 Intake Total 340 120 Output Total 7429 583 3879 Balance -1385 -630 -1450 Intake: Oral 340 120 Output: Urine 6571 680 7232 Other: Voiding Method Indwelling Catheter Indwelling Catheter Indwelling Catheter # Bowel Movements 1 - Labs CBC & Chem 7: 08/01/23 05:10 08/01/23 05:10 Labs: Abnormal Lab Results - Last 24 Hours (Table) 07/31/23 07/31/23 08/01/23 Range/Units 17:01 21:11 05:10 RBC 3.98 L (4.30-5.90) m/uL Hgb 10.1 L (13.0-17.5) gm/dL Hct 32.9 L (39.0-53.0) % MCHC 30.6 L (31.0-37.0) g/dL RDW 15.6 H (11.5-15.5) % Plt Count 515 H (150-450) k/uL Sodium (137-145) mmol/L Carbon Dioxide (22-30) mmol/L Creatinine (0.66-1.25) mg/dL Glucose (74-99) mg/dL POC Glucose (mg/dL) 208 H 124 H (70-110) mg/dL Calcium (8.4-10.2) mg/dL 08/01/23 08/01/23 Range/Units 05:10 07:56 RBC (4.30-5.90) m/uL Hgb (13.0-17.5) gm/dL Hct (39.0-53.0) % MCHC (31.0-37.0) g/dL RDW (11.5-15.5) % Plt Count (150-450) k/uL Sodium 132 L (137-145) mmol/L Carbon Dioxide 33 H (22-30) mmol/L Creatinine 0.47 L (0.66-1.25) mg/dL Glucose 231 H (74-99) mg/dL POC Glucose (mg/dL) 193 H (70-110) mg/dL Calcium 7.9 L (8.4-10.2) mg/dL Microbiology - Last 24 Hours (Table) 07/26/23 17:35 Blood Culture - Final Blood
[2023-08-01] MEDS: LACTATED RINGERS 1,000 ML IV ONE (13:02)
[2023-08-01 13:31] LABS: Glucose,Whole Blood 140 mg/dL (70-110)
[2023-08-01] MEDS: HEPARIN SODIUM,PORCINE 5,000 UNIT/ML 1 ML VIAL SQ ONE (14:10)
[2023-08-01] MEDS: HYDROmorphone 0.5 MG/0.5 ML SYRINGE IVP ONE (14:56)
[2023-08-01] MEDS: HYDROmorphone 0.5 MG/0.5 ML SYRINGE IVP PRN (15:06)
--- NOTE | 2023-08-01 15:24 | P.OP ---
Date of Procedure: 08/01/23 Preoperative Diagnosis: Large decubitus ulcer Postoperative Diagnosis: Large decubitus ulcer Diverticulosis Procedure(s) Performed: Sigmoid colectomy with end colostomy Anesthesia: BLAKE Surgeon: Neal Pabon Estimated Blood Loss (ml): 25 Pathology: other (Sigmoid colon) Condition: stable Disposition: PACU Description of Procedure: The patient's placed on the operative table in the supine position. He received general endotracheal anesthesia. His abdomen was prepped and draped in sterile fashion. And was entered through midline incision. The Bookwalter tract with wound. The patient had a very redundant sigmoid colon. The colon was mobilized in the wound. And then the proximal sigmoid colon was transected with a GI stapler. Using the Enseal device the mesentery bowel was divided. And then the distal sigmoid colon was transected with a GI stapler. The specimens of pathology. And then the colostomy was brought out in the left lateral abdominal wall. The fascia closed with looped #1 PDS suture. Skin was closed rosetta. Class matured with 3-0 Vicryl suture. Patient top she will. He was sent to recovery room stable condition.
[2023-08-01 17:08] LABS: Glucose,Whole Blood 229 mg/dL (70-110)
--- NOTE | 2023-08-01 19:15 | P.PN ---
Progress Note - Text Progress Note Date: 08/01/23 Chief Complaint: Sacral wound This is a 63-year-old patient, follows with Dr. Mendez. Chronic stable medical conditions include ADHD, herniated disc lower back, smoker. Sacral wounds. Left AKA. right above-knee amputation by Dr. Zee on April 2023 Recently presented, not being compliant. Smoking cigarettes. Recreational drugs. Patient has not followed up for his PICC line antibiotics last discharge and was discharged on oral Augmentin. Patient has seen Dr. Zee from vascular and wound care Dr. Bahena. Patient's son lives with him. Patient now presents with worsening sacral wound. Eating fair. Continues to smoke cigarettes. Does marijuana. Tired. Some wheezing shortness of breath. June: Patient seen by Dr. Zee. Sacral decubitus wound will be followed by Dr. Pabon's team. For possible diverting colostomy. Patient is on IV Zosyn. Eating well. Urine drug screen was positive for opiates, amphetamines, methamphetamines, marijuana. Home pain medications were resumed. July 1: Patient being scheduled for diverting colostomy on Tuesday with Dr. Pabon. And debridement of sacral ulcer on Tuesday. Continue antibiotics. Patient eating well. July 2: Laying in bed. Comfortable. Son and family visiting. Scheduled for surgery on Tuesday and Tuesday. Eating well. Antibiotics in place. July 3: Comfortable. Tolerating diet. Pending surgery tomorrow for diverting colostomy. Discussed with patient. July 31: Patient underwent diverting colostomy today. With sigmoid colectomy. Left-sided colostomy. Postprocedure tired. Laying in bed. Due for sacral wound debridement tomorrow. Active Medications Acetaminophen (Acetaminophen Tab 325 Mg Tab) 650 mg PO Q6HR PRN PRN Reason: Mild Pain or Fever > 100.5 Last Admin: 07/29/23 00:42 Dose: 650 mg Hydrocodone Bitart/Acetaminophen (Hydrocodone/Apap 10-325mg 1 Each Tab) 1 each PO QID [facility] Last Admin: 08/01/23 17:50 Dose: 1 each Calcium Carbonate/Glycine (Calcium Carbonate 500 Mg Chewable) 1,000 mg PO Q4HR PRN PRN Reason: Dyspepsia Dextrose/Water (Dextrose 50% Syringe 50 Ml) 25 ml IVP PER PROTOCOL PRN; Protocol PRN Reason: Hypoglycemia Dextrose/Water (Dextrose 50% Syringe 50 Ml) 50 ml IVP PER PROTOCOL PRN; Protocol PRN Reason: Hypoglycemia Diphenhydramine HCl (Diphenhydramine 50 Mg/Ml 1 Ml Vial) 25 mg IVP Q6HR PRN PRN Reason: Itching Famotidine (Famotidine 20 Mg Tab) 20 mg PO BID [facility] Last Admin: 08/01/23 08:12 Dose: 20 mg Hydromorphone HCl (Hydromorphone 0.5 Mg/0.5 Ml Syringe) 0.5 mg IVP Q5M PRN PRN Reason: Phase 1 or 2 - Pain Control Stop: 08/02/23 23:00 Last Admin: 08/01/23 15:17 Dose: 0.5 mg Piperacillin Sod/Tazobactam (Sod 3.375 gm/ Sodium Chloride) 100 mls @ 25 mls/hr IVPB Q8H [facility]; Protocol Last Admin: 08/01/23 15:51 Dose: Not Given Lactated Ringer's (Lactated Ringers) 1,000 mls @ 75 mls/hr IV .[id number] [facility] Last Admin: 08/01/23 08:15 Dose: 75 mls/hr Lactated Ringer's (Lactated Ringers) 1,000 mls @ 20 mls/hr IV .Q24H [facility] Last Admin: 08/01/23 11:27 Dose: 1,000 mls Ropivacaine 250 mg/Hydromorphone HCl 5 mg/ Sodium Chloride 250 mls @ 0 mls/hr EPID[facility] .Q0M PRN; Protocol PRN Reason: Pain Insulin Aspart (Insulin Aspart (Novolog) 100 Unit/Ml Vial) 0 unit SQ ACHS [facility]; Protocol Last Admin: 08/01/23 17:50 Dose: 2 unit Insulin Detemir (Insulin Detemir (Levemir) 100 Unit/Ml Syr) 15 unit SQ [facility] Last Admin: 07/31/23 21:32 Dose: Not Given Lactulose (Lactulose 20 Gm/30 Ml Cup) 20 gm PO DAILY PRN PRN Reason: Constipation Lidocaine HCl (Lidocaine 1% (10mg/Ml) For Iv Start) 0.1 ml INTRADERMA PER PROTOCOL PRN PRN Reason: IV Start Lorazepam (Lorazepam 0.5 Mg Tab) 0.5 mg PO Q6HR PRN PRN Reason: Anxiety Methocarbamol (Methocarbamol 500 Mg Tab) 500 mg PO QID [facility] Last Admin: 08/01/23 17:51 Dose: 500 mg Midazolam HCl (Midazolam 2 Mg/2 Ml Vial) 2 mg IV ONCE PRN PRN Reason: Pre-Op Anxiety Stop: 08/02/23 23:00 Naloxone HCl (Naloxone 0.4 Mg/Ml 1 Ml Vial) 0.2 mg IV Q2M PRN PRN Reason: Opioid Reversal Ondansetron HCl (Ondansetron 4 Mg/2 Ml Vial) 4 mg IVP Q8HR PRN PRN Reason: Nausea And Vomiting Temazepam (Temazepam 15 Mg Cap) 15 mg PO HS PRN PRN Reason: Insomnia Past medical history to include: Diabetes, possible ADHD, chronic low back pain, herniated disc, atrial fibrillation. COPD. left above-knee amputation. Right below-knee amputation. Sacral wound Social history: Son lives with the patient. 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 Smokes about a pack a day, now down to a few cigarettes a day. Alcohol occasionally. Marijuana Physical examination: VITAL SIGNS: 104, 16, 108 x 66, 96% room air GENERAL: Laying in bed, sleepy EYES: Pupils equal. Conjunctiva normal. HEENT: External appearance of nose and ears normal, oral cavity grossly normal. NECK: JVD not raised; masses not palpable. HEART: First and second heart sounds are normal; no edema. LUNGS: Respiratory rate increased l; decreased breath sounds. No wheezing ABDOMEN: Soft, left-sided colostomy. Dressing over midline incision PSYCH: Tired, answering questions MUSCULOSKELETAL: Left and right above-knee amputation, incisions with rosetta healing well. Sacral wound. NEUROLOGICAL: Moving all 4 limbs. INVESTIGATIONS, reviewed in the clinical context: July 31: White count 8.1 hemoglobin 10.1 platelets 515 potassium 4.9 creatinine 0.47 Blood culture [July 26] Clostridium sporogenes Wound culture: E. coli/Proteus mirabilis/beta-hemolytic Streptococcus. July 29: White count 10.0 hemoglobin 8.9 platelets 442 potassium 4.2 creatinine 0.3 July 28: White count 10.5 hemoglobin 8.2 platelets are 82 potassium 3.6 creatinine 0.4 Urine drug screen: Positive for opiates, amphetamines, meth amphetamines, marijuana July 26: White count 7.8 hemoglobin 10.3 platelets 522 sodium 125 potassium 4.7 BUN 13 creatinine 0.31 CRP 20.8 albumin 2.6 Assessment and plan: -Acute metabolic encephalopathy from recreational drugs. Patient last admission all the same presentation.: Improved Urine drug screen positive for methamphetamines, amphetamines, opiates, marijuana -Right above-knee amputation by Dr. Zee on May 26. Cultures grew multiple organisms. discharged on June 03/2024 with IV ceftriaxone with a PICC line for 6 weeks. Patient never showed up for his IV antibiotics. Was subsequently discharged with Augmentin on the last visit -Sacral decubitus ulcer. With acute osteomyelitis. Patient has been noncompliant with his antibiotics Followed by Dr. Bahena from wound care center. Dr Pabon schedule - for debridement on August 01 IV Zosyn with ID Diverting colostomy-y Dr. Pabon on July 31 -Blood cultures positive for Clostridium Sporogenes -Paroxysmal atrial fibrillation: sinus rhythm Amiodarone. Lopressor. -Diabetes mellitus type 2, chronically on insulin Follow Accu-Cheks. -COPD in a current smoker Bronchodilators as needed -Chronic nicotine dependence, cigarette smoker Nicotine patch -Chronic medical debility. Non-ambulatory -Full code N.p.o. from midnight for sacral wound debridement. Other medications to co ntinue. Past Medical History Past Medical History: Diabetes Mellitus Additional Past Medical History / Comment(s): pressure ulcers[Buttock,simone heals ,rt lateral foot]. BLOOD "ECOLI" INFECTION. History of Any Multi-Drug Resistant Organisms: None Reported Past Surgical History: Orthopedic Surgery Additional Past Surgical History / Comment(s): back pain son states pt recently "slipped a disc" taking gabapentin. Left leg above the knee amputation. MICHELLE PICC LINE. Past Anesthesia/Blood Transfusion Reactions: No Reported Reaction Past Psychological History: No Psychological Hx Reported Smoking Status: Current every day smoker Past Alcohol Use History: Rare Past Drug Use History: None Reported
[2023-08-01 20:13] LABS: Glucose,Whole Blood 265 mg/dL (70-110)
[2023-08-02] MEDS: HYDROmorphone 1 MG/ML 1 ML SYRINGE IVP PRN (04:16)
[2023-08-02] MEDS ORDERED: MIDAZOLAM 2 MG/2 ML VIAL IV PRN (07:00)
[2023-08-02 07:15] LABS: HCT 30.5 % (39.0-53.0); HGB 9.5 gm/dL (13.0-17.5); Hypochromasia Slight; MCH 25.6 pg (25.0-35.0); MCHC 31.1 g/dL (31.0-37.0); MCV 82.1 fL (80.0-100.0); Mean Platelet Volume 6.6; Platelet Count 487 k/uL (150-450); RBC 3.71 m/uL (4.30-5.90); RDW 15.5 % (11.5-15.5); WBC 9.7 k/uL (3.8-10.6)
[2023-08-02 07:17] LABS: Glucose,Whole Blood 176 mg/dL (70-110)
[2023-08-02 07:36] LABS: African American GFR (CKD) >90 (>60 ml/min/1.73 sqM); Anion Gap 5 mmol/L; Blood Urea Nitrogen 12 mg/dL (9-20); Calcium 8.6 mg/dL (8.4-10.2); Carbon Dioxide 29 mmol/L (22-30); Chloride 99 mmol/L (98-107); Glucose 186 mg/dL (74-99); Non-African American GFR(CKD) >90 (>60 ml/min/1.73 sqM); Potassium 5.2 mmol/L (3.5-5.1); Sodium 133 mmol/L (137-145)
[2023-08-02] MEDS: IV FLUID CONTINUATION 500 ML IV ONE (09:11)
[2023-08-02 10:27] LABS: Glucose,Whole Blood 127 mg/dL (70-110)
[2023-08-02] MEDS: DEXAMETHASONE SOD PHOSPHATE 4 MG/ML 1 ML VIAL IVP ONE (10:35)
[2023-08-02] MEDS: FAMOTIDINE 20 MG/2 ML VIAL IVP ONE (10:35)
[2023-08-02] MEDS: ONDANSETRON 4 MG/2 ML VIAL IVP ONE (10:35)
[2023-08-02] MEDS ORDERED: SUCCINYLCHOLINE CHLORIDE 200 MG/10 ML VIAL IV ONE (10:42)
[2023-08-02] MEDS ORDERED: KETAMINE HCL IN 0.9 % NACL 50 MG/5 ML SYRINGE ONE (10:42)
[2023-08-02] MEDS ORDERED: PHENYLEPHRINE-0.9% NACL SYG 1,000 MCG/10 ML SYRINGE ONE (10:42)
[2023-08-02] MEDS ORDERED: PROPOFOL 10 MG/ML 20 ML VIAL IV ONE (10:42)
[2023-08-02] MEDS ORDERED: GLYCOPYRROLATE 0.2 MG/ML 2 ML VIAL ONE (10:42)
[2023-08-02] MEDS ORDERED: MIDAZOLAM 2 MG/2 ML VIAL ONE (10:42)
[2023-08-02] MEDS ORDERED: fentaNYL (PF) 50 MCG/ML 2 ML AMP ONE (10:42)
[2023-08-02] MEDS: LACTATED RINGERS 1,000 ML IV ONE ×2 (11:19→12:54)
--- NOTE | 2023-08-02 11:32 | P.OP ---
Date of Procedure: 08/02/23 Preoperative Diagnosis: Decubitus ulcer Postoperative Diagnosis: Decubitus ulcer Procedure(s) Performed: Excisional debridement of decubitus ulcer Anesthesia: BLAKE Surgeon: Neal Pabon Estimated Blood Loss (ml): 25 Pathology: other (Necrotic skin and fat muscle) Condition: stable Disposition: PACU Description of Procedure: The patient's placed on the operative table in the prone position after receiving general anesthesia. His decubitus ulcer was prepped and draped usual fashion. Patient had a sacral decubitus ulcer and bilateral posterior trochanteric ulcers. The necrotic skin and fat was sharply debrided using a 15 blade. Electrocautery was used for hemostasis. After the debridement the wounds were packed with wet-to-dry Kerlix dressing. Patient top she will well. He was sent to recovery room stable condition.
--- NOTE | 2023-08-02 12:23 | P.PN ---
Subjective Progress Note Date: 08/02/23 CHIEF COMPLAINT: Sacral decubitus ulcers HISTORY OF PRESENT ILLNESS: Patient postop day #1 status post diverting colostomy. He is scheduled for debridement of his sacral ulcers today. He does have stool in his ostomy. Does complain of abdominal pain. Afebrile. Potassium 5 point 2 repeat potassium 4.3 PHYSICAL EXAM: VITAL SIGNS: Reviewed. GENERAL: Well-developed in no acute distress. ABDOMEN: Soft. Nondistended. Nontender. NEUROLOGIC: Alert and oriented. Cranial nerves II through XII grossly intact. Skin: Sacral decubitus ulcers with drainage and foul odor ASSESSMENT: 1. Stage IV sacral decubitus ulcers 2. Sepsis 3. Hyponatremia improving 4. Diabetes mellitus 5. Medical noncompliance PLAN: -Patient scheduled for debridement of sacral ulcers today with Dr. Pabon Physician Special Education Kindergarten Teacher note has been reviewed by physician. Signing provider agrees with the documented findings, assessment, and plan of care. Objective - Vital Signs Vital signs: Vital Signs Temp 98.3 F 08/02/23 07:17 Pulse 83 08/02/23 07:17 Resp 18 08/02/23 07:17 BP 130/74 08/02/23 07:17 Pulse Ox 98 08/02/23 07:17 FiO2 Intake & Output 08/01/23 08/02/23 08/02/23 18:59 06:59 18:59 Intake Total 1325 360 Output Total 1475 600 Balance -150 -240 Intake: IV 1100 Intake, IV Titration 225 Amount Lactated Ringers 1,000 ml 225 @ 75 mls/hr IV .[id number] [facility] Rx#:[id number] Oral 360 Output: Urine 1450 600 Estimated Blood Loss 25 Other: Voiding Method Indwelling Catheter Indwelling Catheter # Bowel Movements 1 - Labs CBC & Chem 7: 08/02/23 06:01 08/02/23 09:34 Labs: Abnormal Lab Results - Last 24 Hours (Table) 08/01/23 08/01/23 08/01/23 Range/Units 12:18 13:30 17:07 RBC (4.30-5.90) m/uL Hgb (13.0-17.5) gm/dL Hct (39.0-53.0) % Plt Count (150-450) k/uL Sodium (137-145) mmol/L Potassium (3.5-5.1) mmol/L Creatinine (0.66-1.25) mg/dL Glucose (74-99) mg/dL POC Glucose (mg/dL) 113 H 140 H 229 H (70-110) mg/dL 08/01/23 08/02/23 08/02/23 Range/Units 20:12 06:01 06:01 RBC 3.71 L (4.30-5.90) m/uL Hgb 9.5 L (13.0-17.5) gm/dL Hct 30.5 L (39.0-53.0) % Plt Count 487 H (150-450) k/uL Sodium 133 L (137-145) mmol/L Potassium 5.2 H (3.5-5.1) mmol/L Creatinine 0.33 L (0.66-1.25) mg/dL Glucose 186 H (74-99) mg/dL POC Glucose (mg/dL) 265 H (70-110) mg/dL 08/02/23 Range/Units 07:16 RBC (4.30-5.90) m/uL Hgb (13.0-17.5) gm/dL Hct (39.0-53.0) % Plt Count (150-450) k/uL Sodium (137-145) mmol/L Potassium (3.5-5.1) mmol/L Creatinine (0.66-1.25) mg/dL Glucose (74-99) mg/dL POC Glucose (mg/dL) 176 H (70-110) mg/dL Microbiology - Last 24 Hours (Table) 07/26/23 17:35 Blood Culture - Final Blood
[2023-08-02 13:00] LABS: Glucose,Whole Blood 157 mg/dL (70-110)
[2023-08-02 17:13] LABS: Glucose,Whole Blood 227 mg/dL (70-110)
[2023-08-02 20:11] LABS: Glucose,Whole Blood 298 mg/dL (70-110)
--- NOTE | 2023-08-02 20:38 | P.PN ---
Progress Note - Text Progress Note Date: 08/02/23 Chief Complaint: Sacral wound This is a 63-year-old patient, follows with Dr. Mendez. Chronic stable medical conditions include ADHD, herniated disc lower back, smoker. Sacral wounds. Left AKA. right above-knee amputation by Dr. Zee on April 2023 Recently presented, not being compliant. Smoking cigarettes. Recreational drugs. Patient has not followed up for his PICC line antibiotics last discharge and was discharged on oral Augmentin. Patient has seen Dr. Zee from vascular and wound care Dr. Bahena. Patient's son lives with him. Patient now presents with worsening sacral wound. Eating fair. Continues to smoke cigarettes. Does marijuana. Tired. Some wheezing shortness of breath. June: Patient seen by Dr. Zee. Sacral decubitus wound will be followed by Dr. Pabon's team. For possible diverting colostomy. Patient is on IV Zosyn. Eating well. Urine drug screen was positive for opiates, amphetamines, methamphetamines, marijuana. Home pain medications were resumed. July 1: Patient being scheduled for diverting colostomy on Tuesday with Dr. Pabon. And debridement of sacral ulcer on Tuesday. Continue antibiotics. Patient eating well. July 2: Laying in bed. Comfortable. Son and family visiting. Scheduled for surgery on Tuesday and Tuesday. Eating well. Antibiotics in place. July 3: Comfortable. Tolerating diet. Pending surgery tomorrow for diverting colostomy. Discussed with patient. July 31: Patient underwent diverting colostomy today. With sigmoid colectomy. Left-sided colostomy. Postprocedure tired. Laying in bed. Due for sacral wound debridement tomorrow. August 01: Patient underwent debridement of sacral decubitus ulcer by Dr. Pabon. Had a good supper. manager psychiatry looking into discharge planning. Active Medications Acetaminophen (Acetaminophen Tab 325 Mg Tab) 650 mg PO Q6HR PRN PRN Reason: Mild Pain or Fever > 100.5 Last Admin: 07/29/23 00:42 Dose: 650 mg Hydrocodone Bitart/Acetaminophen (Hydrocodone/Apap 10-325mg 1 Each Tab) 1 each PO QID [facility] Last Admin: 08/02/23 18:07 Dose: 1 each Calcium Carbonate/Glycine (Calcium Carbonate 500 Mg Chewable) 1,000 mg PO Q4HR PRN PRN Reason: Dyspepsia Dextrose/Water (Dextrose 50% Syringe 50 Ml) 25 ml IVP PER PROTOCOL PRN; Protocol PRN Reason: Hypoglycemia Dextrose/Water (Dextrose 50% Syringe 50 Ml) 50 ml IVP PER PROTOCOL PRN; Protocol PRN Reason: Hypoglycemia Diphenhydramine HCl (Diphenhydramine 50 Mg/Ml 1 Ml Vial) 25 mg IVP Q6HR PRN PRN Reason: Itching Famotidine (Famotidine 20 Mg Tab) 20 mg PO BID [facility] Last Admin: 08/02/23 08:07 Dose: 20 mg Hydromorphone HCl (Hydromorphone 0.5 Mg/0.5 Ml Syringe) 0.5 mg IVP Q5M PRN PRN Reason: Phase 1 or 2 - Pain Control Stop: 08/02/23 23:00 Last Admin: 08/01/23 15:17 Dose: 0.5 mg Hydromorphone HCl (Hydromorphone 1 Mg/Ml 1 Ml Syringe) 1 mg IVP Q3HR PRN PRN Reason: Breakthrough Pain Last Admin: 08/02/23 18:54 Dose: 1 mg Piperacillin Sod/Tazobactam (Sod 3.375 gm/ Sodium Chloride) 100 mls @ 25 mls/hr IVPB Q8H [facility]; Protocol Last Admin: 08/02/23 13:36 Dose: 25 mls/hr Lactated Ringer's (Lactated Ringers) 1,000 mls @ 75 mls/hr IV .[id number] [facility] Last Admin: 08/02/23 12:49 Dose: Not Given Lactated Ringer's (Lactated Ringers) 1,000 mls @ 20 mls/hr IV .Q24H [facility] Last Admin: 08/02/23 12:50 Dose: Not Given Ropivacaine 250 mg/Hydromorphone HCl 5 mg/ Sodium Chloride 250 mls @ 0 mls/hr EPIDURAL .Q0M PRN; Protocol PRN Reason: Pain Insulin Aspart (Insulin Aspart (Novolog) 100 Unit/Ml Vial) 0 unit SQ ACHS [facility]; Protocol Last Admin: 08/02/23 18:07 Dose: 2 unit Insulin Detemir (Insulin Detemir (Levemir) 100 Unit/Ml Syr) 15 unit SQ [facility] Last Admin: 08/01/23 20:25 Dose: 15 unit Lactulose (Lactulose 20 Gm/30 Ml Cup) 20 gm PO DAILY PRN PRN Reason: Constipation Lidocaine HCl (Lidocaine 1% (10mg/Ml) For Iv Start) 0.1 ml INTRADERMA PER PROTOCOL PRN PRN Reason: IV Start Lorazepam (Lorazepam 0.5 Mg Tab) 0.5 mg PO Q6HR PRN PRN Reason: Anxiety Methocarbamol (Methocarbamol 500 Mg Tab) 500 mg PO QID [facility] Last Admin: 08/02/23 18:07 Dose: 500 mg Midazolam HCl (Midazolam 2 Mg/2 Ml Vial) 2 mg IV ONCE PRN PRN Reason: Pre-Op Anxiety Stop: 08/02/23 23:00 Naloxone HCl (Naloxone 0.4 Mg/Ml 1 Ml Vial) 0.2 mg IV Q2M PRN PRN Reason: Opioid Reversal Ondansetron HCl (Ondansetron 4 Mg/2 Ml Vial) 4 mg IVP Q8HR PRN PRN Reason: Nausea And Vomiting Temazepam (Temazepam 15 Mg Cap) 15 mg PO HS PRN PRN Reason: Insomnia Past medical history to include: Diabetes, possible ADHD, chronic low back pain, herniated disc, atrial fibrillation. COPD. left above-knee amputation. Right below-knee amputation. Sacral wound Social history: Son lives with the patient. 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 Smokes about a pack a day, now down to a few cigarettes a day. Alcohol occasionally. Marijuana Physical examination: VITAL SIGNS: 97.3, 91, 16, 102 x 64, 98% on 2 L GENERAL: Laying in bed, comfortable EYES: Pupils equal. Conjunctiva normal. HEENT: External appearance of nose and ears normal, oral cavity grossly normal. NECK: JVD not raised; masses not palpable. HEART: First and second heart sounds are normal; no edema. LUNGS: Respiratory rate increased l; decreased breath sounds. No wheezing ABDOMEN: Soft, left-sided colostomy. Dressing over midline incision PSYCH: Answering questions appropriately MUSCULOSKELETAL: Left and right above-knee amputation, incisions with rosetta healing well. Sacral wound. NEUROLOGICAL: Moving all 4 limbs. INVESTIGATIONS, reviewed in the clinical context: July 31: White count 8.1 hemoglobin 10.1 platelets 515 potassium 4.9 creatinine 0.47 Blood culture [July 26] Clostridium sporogenes Wound culture: E. coli/Proteus mirabilis/beta-hemolytic Streptococcus. July 29: White count 10.0 hemoglobin 8.9 platelets 442 potassium 4.2 creatinine 0.3 July 28: White count 10.5 hemoglobin 8.2 platelets are 82 potassium 3.6 creatinine 0.4 Urine drug screen: Positive for opiates, amphetamines, meth amphetamines, marijuana July 26: White count 7.8 hemoglobin 10.3 platelets 522 sodium 125 potassium 4.7 BUN 13 creatinine 0.31 CRP 20.8 albumin 2.6 Assessment and plan: -Acute metabolic encephalopathy from recreational drugs. Patient last admission all the same presentation.: Improved Urine drug screen positive for methamphetamines, amphetamines, opiates, marijuana -Right above-knee amputation by Dr. Zee on May 26. Cultures grew multiple organisms. discharged on June 03/2024 with IV ceftriaxone with a PICC line for 6 weeks. Patient never showed up for his IV antibiotics. Was subsequently discharged with Augmentin on the last visit -Sacral decubitus ulcer. With acute osteomyelitis. Patient has been noncompliant with his antibiotics Followed by Dr. Bahena from wound care center. Dr Pabon schedule -underwent debridement on August 01 IV Zosyn with ID Diverting colostomy-y Dr. Pabon on July 31 -Blood cultures positive for Clostridium Sporogenes, on July 26. Repeat blood cultures negative -Paroxysmal atrial fibrillation: sinus rhythm Amiodarone. Lopressor. -Diabetes mellitus type 2, chronically on insulin Follow Accu-Cheks. -COPD in a current smoker Bronchodilators as needed -Chronic nicotine dependence, cigarette smoker Nicotine patch -Chronic medical debility. Non-ambulatory -Full code Tolerating diet. manager psychiatry looking into placement. Past Medical History Past Medical History: Diabetes Mellitus Additional Past Medical History / Comment(s): pressure ulcers[Buttock,simone heals ,rt lateral foot]. BLOOD "ECOLI" INFECTION. History of Any Multi-Drug Resistant Organisms: None Reported Past Surgical History: Orthopedic Surgery Additional Past Surgical History / Comment(s): back pain son states pt recently "slipped a disc" taking gabapentin. Left leg above the knee amputation. MICHELLE PICC LINE. Past Anesthesia/Blood Transfusion Reactions: No Reported Reaction Past Psychological History: No Psychological Hx Reported Smoking Status: Current every day smoker Past Alcohol Use History: Rare Past Drug Use History: None Reported
[2023-08-03 07:13] LABS: Glucose,Whole Blood 148 mg/dL (70-110)
[2023-08-03 12:15] LABS: Glucose,Whole Blood 219 mg/dL (70-110)
--- NOTE | 2023-08-03 12:18 | P.PN ---
Subjective Progress Note Date: 08/01/23 Principal diagnosis: Reason for follow-up is infected sacral pressure ulcer Patient is a 63-year-old male with a past medical history significant for diabetes mellitus in this patient who did have a history of PAD s/p bilateral [id number] amputation and did have a stage IV sacral pressure ulcer that has been there for a few months, noncompliance with the previous IV and local care treatment presented to hospital with worsening wound and fever On today's evaluation that is 08/01/2023, Patient is afebrile patient is currently on room air and denies having any shortness of breath, the patient denies any chest pain or cough, the patient denies any nausea vomiting still complaining of some pain to the sacral wound area. Patient white count is 8.1, creatinine 0.47 Objective - Vital Signs Vital signs: Vital Signs Temp 96.8 F L 08/01/23 11:40 Pulse 93 08/01/23 12:21 Resp 12 08/01/23 12:21 BP 92/51 08/01/23 12:21 Pulse Ox 100 08/01/23 12:21 FiO2 Intake & Output 07/31/23 08/01/23 08/01/23 18:59 06:59 18:59 Intake Total 340 120 Output Total 1192 377 9507 Balance -1385 630 -1450 Intake: Oral 340 120 Output: Urine 3817 766 2790 Other: Voiding Method Indwelling Catheter Indwelling Catheter Indwelling Catheter # Bowel Movements 1 - Exam GENERAL DESCRIPTION: Middle-age male lying in bed in no distress RESPIRATORY SYSTEM: Unlabored breathing , decreased breath sounds at bases HEART: S1 S2 regular rate and rhythm , ABDOMEN: Soft , no tenderness EXTREMITIES: Bilateral AKA stump no redness or drainage - Labs CBC & Chem 7: 08/02/23 06:01 08/02/23 09:34 Labs: Abnormal Lab Results - Last 24 Hours (Table) 07/31/23 07/31/23 08/01/23 Range/Units 17:01 21:11 05:10 RBC 3.98 L (4.30-5.90) m/uL Hgb 10.1 L (13.0-17.5) gm/dL Hct 32.9 L (39.0-53.0) % MCHC 30.6 L (31.0-37.0) g/dL RDW 15.6 H (11.5-15.5) % Plt Count 515 H (150-450) k/uL Sodium (137-145) mmol/L Carbon Dioxide (22-30) mmol/L Creatinine (0.66-1.25) mg/dL Glucose (74-99) mg/dL POC Glucose (mg/dL) 208 H 124 H (70-110) mg/dL Calcium (8.4-10.2) mg/dL 08/01/23 08/01/23 08/01/23 Range/Units 05:10 07:56 12:18 RBC (4.30-5.90) m/uL Hgb (13.0-17.5) gm/dL Hct (39.0-53.0) % MCHC (31.0-37.0) g/dL RDW (11.5-15.5) % Plt Count (150-450) k/uL Sodium 132 L (137-145) mmol/L Carbon Dioxide 33 H (22-30) mmol/L Creatinine 0.47 L (0.66-1.25) mg/dL Glucose 231 H (74-99) mg/dL POC Glucose (mg/dL) 193 H 113 H (70-110) mg/dL Calcium 7.9 L (8.4-10.2) mg/dL Microbiology - Last 24 Hours (Table) 07/26/23 17:35 Blood Culture - Final Blood Assessment and Plan (1) Sacral decubitus ulcer, stage IV Current Visit: Yes Status: Acute Code(s): L89.154 - PRESSURE ULCER OF SACRAL REGION, STAGE 4 SNOMED Code(s): 80872387782630 (2) Sacral osteomyelitis Current Visit: No Status: Acute Code(s): M46.28 - OSTEOMYELITIS OF VERTEBRA, SACRAL AND SACROCOCCYGEAL REGION SNOMED Code(s): 820704426 (3) Positive blood culture Current Visit: Yes Status: Acute Code(s): R78.81 - BACTEREMIA SNOMED Code(s): 210370093 Plan: 1patient was in the hospital with sepsis in this patient who did have a fever tachycardia elevated white count source is infected sacral pressure ulcer likely stage IV with underlying osteomyelitis in this patient wound has been there for couple of months now and noncompliance with treatment in the outpatient setting 2-positive blood culture more likely related to his infected sacral pressure ulcer, blood culture has been repeated to document clearance of bacteremia 3-The patient local culture currently growing E. coli and Proteus and beta- hemolytic Streptococcus 4-patient to continue with Zosyn patient is scheduled for diverting colostomy this afternoon followed by surgical debridement tomorrow Dictation was produced using [employer] dictation software. please excuse any grammatical, word or spelling errors. Time with Patient: Less than 30
--- NOTE | 2023-08-03 12:20 | P.PN ---
Subjective Progress Note Date: 08/02/23 Principal diagnosis: Reason for follow-up is infected sacral pressure ulcer Patient is a 63-year-old male with a past medical history significant for diabetes mellitus in this patient who did have a history of PAD s/p bilateral [id number] amputation and did have a stage IV sacral pressure ulcer that has been there for a few months, noncompliance with the previous IV and local care treatment presented to hospital with worsening wound and fever, Patient is status post sigmoid colectomy with end colostomy completed on 08/01/2023 and the patient is status post excision debridement of his sacral pressure ulcer by general surgery completed on 08/02/2023 On today's visit 08/02/2023,the patient denies any fever or any chills, patient is breathing comfortably on room air, the patient denies chest pain shortness of breath and no significant cough, patient denies abdominal pain, no nausea vomiting or diarrhea Patient white count is 9.7, creatinine 0.33 Objective - Vital Signs Vital signs: Vital Signs Temp 97.5 F L 08/02/23 13:29 Pulse 80 08/02/23 13:29 Resp 18 08/02/23 13:29 BP 122/74 08/02/23 13:29 Pulse Ox 100 08/02/23 13:29 FiO2 Intake & Output 08/01/23 08/02/23 08/02/23 18:59 06:59 18:59 Intake Total 7112 741 8530 Output Total 0457 265 0834 Balance -150 -240 -260 Weight 58.97 kg Intake: IV 1100 1600 Intake, IV Titration 225 Amount Lactated Ringers 1,000 ml 225 @ 75 mls/hr IV .[id number] [facility] Rx#:[id number] Oral 360 Output: Urine 2801 415 1302 Estimated Blood Loss 25 10 Other: Voiding Method Indwelling Catheter Indwelling Catheter Indwelling Catheter # Bowel Movements 1 - Exam GENERAL DESCRIPTION: Middle-age male lying in bed in no distress RESPIRATORY SYSTEM: Unlabored breathing , decreased breath sounds at bases HEART: S1 S2 regular rate and rhythm , ABDOMEN: Soft , no tenderness EXTREMITIES: Bilateral AKA stump no redness or drainage - Labs CBC & Chem 7: 08/02/23 06:01 08/02/23 09:34 Labs: Abnormal Lab Results - Last 24 Hours (Table) 08/01/23 08/01/2324 Range/Units 17:07 20:12 06:01 RBC 3.71 L (4.30-5.90) m/uL Hgb 9.5 L (13.0-17.5) gm/dL Hct 30.5 L (39.0-53.0) % Plt Count 487 H (150-450) k/uL Sodium (137-145) mmol/L Potassium (3.5-5.1) mmol/L Creatinine (0.66-1.25) mg/dL Glucose (74-99) mg/dL POC Glucose (mg/dL) 229 H 265 H (70-110) mg/dL 08/02/23 08/02/23 08/02/23 Range/Units 06:01 07:16 10:26 RBC (4.30-5.90) m/uL Hgb (13.0-17.5) gm/dL Hct (39.0-53.0) % Plt Count (150-450) k/uL Sodium 133 L (137-145) mmol/L Potassium 5.2 H (3.5-5.1) mmol/L Creatinine 0.33 L (0.66-1.25) mg/dL Glucose 186 H (74-99) mg/dL POC Glucose (mg/dL) 176 H 127 H (70-110) mg/dL 08/02/23 Range/Units 12:59 RBC (4.30-5.90) m/uL Hgb (13.0-17.5) gm/dL Hct (39.0-53.0) % Plt Count (150-450) k/uL Sodium (137-145) mmol/L Potassium (3.5-5.1) mmol/L Creatinine (0.66-1.25) mg/dL Glucose (74-99) mg/dL POC Glucose (mg/dL) 157 H (70-110) mg/dL Microbiology - Last 24 Hours (Table) 08/01/23 05:10 Blood Culture - Preliminary Blood Assessment and Plan (1) Sacral decubitus ulcer, stage IV Current Visit: Yes Status: Acute Code(s): L89.154 - PRESSURE ULCER OF SACRAL REGION, STAGE 4 SNOMED Code(s): 14296306617799 (2) Sacral osteomyelitis Current Visit: No Status: Acute Code(s): M46.28 - OSTEOMYELITIS OF VERTEBRA, SACRAL AND SACROCOCCYGEAL REGION SNOMED Code(s): 991849809 (3) Positive blood culture Current Visit: Yes Status: Acute Code(s): R78.81 - BACTEREMIA SNOMED Code(s): 012007852 Plan: 1patient was in the hospital with sepsis in this patient who did have a fever tachycardia elevated white count source is infected sacral pressure ulcer likely stage IV with underlying osteomyelitis in this patient wound has been there for couple of months now and noncompliance with treatment in the outpatient setting 2-positive blood culture more likely related to his infected sacral pressure ulcer, blood culture has been repeated to document clearance of bacteremia 3-The patient local culture currently growing E. coli and Proteus and beta- hemolytic Streptococcus 4-patient is status post diverting colostomy and surgical debridement of his large sacral pressure ulcer we will continue patient on Zosyn will need a PICC line for outpatient IV antibiotic therapy Dictation was produced using [employer] dictation software. please excuse any grammatical, word or spelling errors. Time with Patient: Less than 30
[2023-08-03] MEDS: IV FLUID CONTINUATION 1,000 ML IV ONE (14:19)
[2023-08-03] MEDS: LIDOCAINE 2% (PF) 20 MG/ML 5 ML VIAL SQ ONE (14:30)
--- NOTE | 2023-08-03 14:56 | P.PN ---
Subjective Progress Note Date: 08/03/23 CHIEF COMPLAINT: Sacral decubitus ulcers HISTORY OF PRESENT ILLNESS: Patient postop day #2 status post diverting colostomy. Patient postop day #1 status postdebridement of decubitus ulcer. Patient's ostomy is functioning. Pain is controlled. Afebrile. PHYSICAL EXAM: VITAL SIGNS: Reviewed. GENERAL: Well-developed in no acute distress. ABDOMEN: Soft. Nondistended. Incision site clean dry and intact. Ostomy with stool present. Stoma unable to be visualized NEUROLOGIC: Alert and oriented. Cranial nerves II through XII grossly intact. ASSESSMENT: 1. Stage IV sacral decubitus ulcers 2. Sepsis 3. Hyponatremia improving 4. Diabetes mellitus 5. Medical noncompliance PLAN: -Anticipate discharge tomorrow to [facility] -Consult ostomy nurse for ostomy teaching -Continue pain management -Antibiotics per ID service -Local wound care per ID service Physician Labor Relations Teacher note has been reviewed by physician. Signing provider agrees with the documented findings, assessment, and plan of care. Objective - Vital Signs Vital signs: Vital Signs Temp 98.5 F 08/03/23 12:01 Pulse 81 08/03/23 12:01 Resp 16 08/03/23 12:01 BP 120/67 08/03/23 12:01 Pulse Ox 98 08/03/23 12:01 FiO2 Intake & Output 08/02/23 08/03/23 08/03/23 18:59 06:59 18:59 Intake Total 2100 0 20 Output Total 2260 800 Balance -160 -800 20 Weight 58.97 kg 58.97 kg Intake: IV 1600 20 Intake, IV Titration 500 Amount Lactated Ringers 1,000 ml 300 @ 75 mls/hr IV .[id number] [facility] Rx#:[id number] Piperacillin-Tazobactam 3 200 .375 gm In Sodium Chloride 0.9% 100 ml @ 25 mls/hr IVPB Q8H [facility] Rx#: [id number] Oral 0 Output: Urine 2250 800 Estimated Blood Loss 10 Other: Voiding Method Indwelling Catheter Indwelling Catheter Indwelling Catheter - Labs CBC & Chem 7: 08/02/23 06:01 08/02/23 09:34 Labs: Abnormal Lab Results - Last 24 Hours (Table) 08/02/23 08/02/23 08/03/23 Range/Units 17:11 20:10 07:12 POC Glucose (mg/dL) 227 H 298 H 148 H (70-110) mg/dL 08/03/23 Range/Units 12:10 POC Glucose (mg/dL) 219 H (70-110) mg/dL Microbiology - Last 24 Hours (Table) 08/01/23 05:10 Blood Culture - Preliminary Blood
--- NOTE | 2023-08-03 14:57 | P.OP ---
Date of Procedure: 08/03/23 Preoperative Diagnosis: Need for long-term IV antibiotic therapy. Postoperative Diagnosis: Same. Procedure(s) Performed: Insertion of a peripherally inserted central venous catheter via the left brachial vein with ultrasonic and fluoroscopic guidance. Anesthesia: local Surgeon: Benjamin Schulz Estimated Blood Loss (ml): 2 IV fluids (ml): 0 Urine output (ml): 0 Pathology: none sent Condition: stable Disposition: no change Indications for Procedure: Patient is a 63 old male with multiple medical problems including multiple nonhealing wounds and is in need of long-term IV antibiotic therapy. To accomplished this the patient is offered a PICC line. Description of Procedure: Patient was brought to the special procedure suite. The left upper extremity sterilely prepped and draped in usual manner. The brachial vein was identified and found to be normally compressible and free of visible thrombus. 1% Xylocaine was utilized for local anesthesia of the tissue overlying the basilic vein. Through this anesthetized area with the aid of ultrasound a micropuncture needle was utilized to cannulate the vein. Once cannulated soft tipped guidewire was advanced into the vein. The needle was withdrawn and a micropuncture sheath and dilator were advanced over the guidewire. The guidewire and dilator were withdrawn and the PICC guidewire was advanced into the central venous system and measured to 43 cm from skin to appropriate position at the caval atrial junction. As such the PICC line was cut to 43 cm. The PICC sheath and dilator were advanced over the guidewire the dilator was withdrawn and the PICC line advanced over the guidewire into the central venous system. The peel-away sheath was removed as was the guidewire. Blood was easily aspirated through the catheter and then flushed with heparinized saline solution. The catheter was then secured to the skin with nylon suture. Appropriate dressings were applied. Patient tolerated the procedure well and was returned to his room in satisfactory and stable condition.
--- NOTE | 2023-08-03 17:13 | IR ---
EXAMINATION TYPE: IR cvc insert >=5 years DATE OF EXAM: 08/03/2023 FLUOROSCOPY Left PICC line placement for ABX, 0.2mins, 0.105 Gycm2 DAP, 43cm, L brachial
[2023-08-03 17:38] LABS: Glucose,Whole Blood 187 mg/dL (70-110)
--- NOTE | 2023-08-03 18:54 | P.PN ---
Progress Note - Text Progress Note Date: 08/03/23 Chief Complaint: Sacral wound This is a 63-year-old patient, follows with Dr. Mendez. Chronic stable medical conditions include ADHD, herniated disc lower back, smoker. Sacral wounds. Left AKA. right above-knee amputation by Dr. Zee on April 2023 Recently presented, not being compliant. Smoking cigarettes. Recreational drugs. Patient has not followed up for his PICC line antibiotics last discharge and was discharged on oral Augmentin. Patient has seen Dr. Zee from vascular and wound care Dr. Bahena. Patient's son lives with him. Patient now presents with worsening sacral wound. Eating fair. Continues to smoke cigarettes. Does marijuana. Tired. Some wheezing shortness of breath. June: Patient seen by Dr. Zee. Sacral decubitus wound will be followed by Dr. Pabon's team. For possible diverting colostomy. Patient is on IV Zosyn. Eating well. Urine drug screen was positive for opiates, amphetamines, methamphetamines, marijuana. Home pain medications were resumed. July 1: Patient being scheduled for diverting colostomy on Tuesday with Dr. Pabon. And debridement of sacral ulcer on Tuesday. Continue antibiotics. Patient eating well. July 2: Laying in bed. Comfortable. Son and family visiting. Scheduled for surgery on Tuesday and Tuesday. Eating well. Antibiotics in place. July 3: Comfortable. Tolerating diet. Pending surgery tomorrow for diverting colostomy. Discussed with patient. July 31: Patient underwent diverting colostomy today. With sigmoid colectomy. Left-sided colostomy. Postprocedure tired. Laying in bed. Due for sacral wound debridement tomorrow. July 5: Patient underwent debridement of sacral decubitus ulcer by Dr. Pabon. Had a good supper. computer operations manager looking into discharge planning. August 02: Patient in bed. Son at the bedside. Spoke to the business case analyst Vernon to discover that patient actually has insurance. He should build to qualify for rehab. Looking into the same. Antibiotics to continue. PICC line was placed by Dr. Schulz from vascular today. Active Medications Acetaminophen (Acetaminophen Tab 325 Mg Tab) 650 mg PO Q6HR PRN PRN Reason: Mild Pain or Fever > 100.5 Last Admin: 07/29/23 00:42 Dose: 650 mg Hydrocodone Bitart/Acetaminophen (Hydrocodone/Apap 10-325mg 1 Each Tab) 1 each PO QID [facility] Last Admin: 08/03/23 18:21 Dose: 1 each Calcium Carbonate/Glycine (Calcium Carbonate 500 Mg Chewable) 1,000 mg PO Q4HR PRN PRN Reason: Dyspepsia Dextrose/Water (Dextrose 50% Syringe 50 Ml) 25 ml IVP PER PROTOCOL PRN; Protocol PRN Reason: Hypoglycemia Dextrose/Water (Dextrose 50% Syringe 50 Ml) 50 ml IVP PER PROTOCOL PRN; Protocol PRN Reason: Hypoglycemia Diphenhydramine HCl (Diphenhydramine 50 Mg/Ml 1 Ml Vial) 25 mg IVP Q6HR PRN PRN Reason: Itching Famotidine (Famotidine 20 Mg Tab) 20 mg PO BID [facility] Last Admin: 08/03/23 08:00 Dose: 20 mg Hydromorphone HCl (Hydromorphone 1 Mg/Ml 1 Ml Syringe) 1 mg IVP Q3HR PRN PRN Reason: Breakthrough Pain Last Admin: 08/03/23 18:22 Dose: 1 mg Piperacillin Sod/Tazobactam (Sod 3.375 gm/ Sodium Chloride) 100 mls @ 25 mls/hr IVPB Q8H [facility]; Protocol Last Admin: 08/03/23 15:42 Dose: 25 mls/hr Lactated Ringer's (Lactated Ringers) 1,000 mls @ 75 mls/hr IV .[id number] [facility] Last Admin: 08/03/23 15:42 Dose: 75 mls/hr Lactated Ringer's (Lactated Ringers) 1,000 mls @ 20 mls/hr IV .Q24H [facility] Last Admin: 08/03/23 15:37 Dose: Not Given Ropivacaine 250 mg/Hydromorphone HCl 5 mg/ Sodium Chloride 250 mls @ 0 mls/hr EPIDURAL .Q0M PRN; Protocol PRN Reason: Pain Insulin Aspart (Insulin Aspart (Novolog) 100 Unit/Ml Vial) 0 unit SQ ACHS [facility]; Protocol Last Admin: 08/03/23 18:21 Dose: 1 unit Insulin Detemir (Insulin Detemir (Levemir) 100 Unit/Ml Syr) 15 unit SQ [facility] Last Admin: 08/02/23 21:21 Dose: 15 unit Lactulose (Lactulose 20 Gm/30 Ml Cup) 20 gm PO DAILY PRN PRN Reason: Constipation Lidocaine HCl (Lidocaine 1% (10mg/Ml) For Iv Start) 0.1 ml INTRADERMA PER PROTOCOL PRN PRN Reason: IV Start Lorazepam (Lorazepam 0.5 Mg Tab) 0.5 mg PO Q6HR PRN PRN Reason: Anxiety Methocarbamol (Methocarbamol 500 Mg Tab) 500 mg PO QID [facility] Last Admin: 08/03/23 18:21 Dose: 500 mg Naloxone HCl (Naloxone 0.4 Mg/Ml 1 Ml Vial) 0.2 mg IV Q2M PRN PRN Reason: Opioid Reversal Ondansetron HCl (Ondansetron 4 Mg/2 Ml Vial) 4 mg IVP Q8HR PRN PRN Reason: Nausea And Vomiting Temazepam (Temazepam 15 Mg Cap) 15 mg PO HS PRN PRN Reason: Insomnia Past medical history to include: Diabetes, possible ADHD, chronic low back pain, herniated disc, atrial fibrillation. COPD. left above-knee amputation. Right below-knee amputation. Sacral wound Social history: Son lives with the patient. 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 Smokes about a pack a day, now down to a few cigarettes a day. Alcohol occasionally. Marijuana Physical examination: VITAL SIGNS: 98.5, 81, 16, 120 x 67, 98% on 2 L GENERAL: Laying in bed, comfortable EYES: Pupils equal. Conjunctiva normal. HEENT: External appearance of nose and ears normal, oral cavity grossly normal. NECK: JVD not raised; masses not palpable. HEART: First and second heart sounds are normal; no edema. LUNGS: Respiratory rate increased l; decreased breath sounds. No wheezing ABDOMEN: Soft, left-sided colostomy. Dressing over midline incision PSYCH: Answering questions appropriately MUSCULOSKELETAL: Left and right above-knee amputation, incisions with rosetta healing well. Sacral wound. NEUROLOGICAL: Moving all 4 limbs. INVESTIGATIONS, reviewed in the clinical context: July 31: White count 8.1 hemoglobin 10.1 platelets 515 potassium 4.9 creatinine 0.47 Blood culture [July 26] Clostridium sporogenes Wound culture: E. coli/Proteus mirabilis/beta-hemolytic Streptococcus. July 29: White count 10.0 hemoglobin 8.9 platelets 442 potassium 4.2 creatinine 0.3 July 28: White count 10.5 hemoglobin 8.2 platelets are 82 potassium 3.6 creatinine 0.4 Urine drug screen: Positive for opiates, amphetamines, meth amphetamines, marijuana July 26: White count 7.8 hemoglobin 10.3 platelets 522 sodium 125 potassium 4.7 BUN 13 creatinine 0.31 CRP 20.8 albumin 2.6 Assessment and plan: -Acute metabolic encephalopathy from recreational drugs. Patient last admission all the same presentation.: Improved Urine drug screen positive for methamphetamines, amphetamines, opiates, marijuana -Right above-knee amputation by Dr. Zee on May 26. Cultures grew multiple organisms. discharged on June 03/2024 with IV ceftriaxone with a PICC line for 6 weeks. Patient never showed up for his IV antibiotics. Was subsequently discharged with Augmentin on the last visit -Sacral decubitus ulcer. With acute osteomyelitis. Patient has been noncompliant with his antibiotics Followed by Dr. Bahena from wound care center. Dr Pabon schedule -underwent debridement on August 01 IV Zosyn with ID Diverting colostomy-y Dr. Pabon on July 31 -Blood cultures positive for Clostridium Sporogenes, on July 26. Repeat blood cultures negative -Paroxysmal atrial fibrillation: sinus rhythm Amiodarone. Lopressor. -Diabetes mellitus type 2, chronically on insulin Follow Accu-Cheks. -COPD in a current smoker Bronchodilators as needed -Chronic nicotine dependence, cigarette smoker Nicotine patch -Chronic medical debility. Non-ambulatory -Full code computer operations manager Vernon informed that patient has Medicare insurance. Not looking at ECF placement. Past Medical History Past Medical History: Diabetes Mellitus Additional Past Medical History / Comment(s): pressure ulcers[Buttock,simone heals ,rt lateral foot]. BLOOD "ECOLI" INFECTION. History of Any Multi-Drug Resistant Organisms: None Reported Past Surgical History: Orthopedic Surgery Additional Past Surgical History / Comment(s): back pain son states pt recently "slipped a disc" taking gabapentin. Left leg above the knee amputation. MICHELLE PICC LINE. Past Anesthesia/Blood Transfusion Reactions: No Reported Reaction Past Psychological History: No Psychological Hx Reported Smoking Status: Current every day smoker Past Alcohol Use History: Rare Past Drug Use History: None Reported
[2023-08-03 20:10] LABS: Glucose,Whole Blood 182 mg/dL (70-110)
[2023-08-03] MEDS: TEMAZEPAM 15 MG CAP PO PRN (21:17)
[2023-08-04] MEDS: ONDANSETRON 4 MG/2 ML VIAL IVP PRN ×2 (06:24→16:19)
[2023-08-04 07:11] LABS: Glucose,Whole Blood 104 mg/dL (70-110)
[2023-08-04 09:08] LABS: Glucose,Whole Blood 108 mg/dL (70-110)
[2023-08-04 11:53] LABS: ALT 9 U/L (4-49); AST 13 U/L (17-59); African American GFR (CKD) >90 (>60 ml/min/1.73 sqM); Albumin 2.7 g/dL (3.5-5.0); Albumin/Globulin Ratio 0.7; Alkaline Phosphatase 66 U/L (38-126); Anion Gap 2 mmol/L; Blood Urea Nitrogen 19 mg/dL (9-20); Calcium 8.6 mg/dL (8.4-10.2); Carbon Dioxide 35 mmol/L (22-30); Chloride 102 mmol/L (98-107); Globulin 3.8 g/dL; Glucose 116 mg/dL (74-99); Non-African American GFR(CKD) >90 (>60 ml/min/1.73 sqM); Potassium 3.8 mmol/L (3.5-5.1); Sodium 139 mmol/L (137-145); Total Bilirubin 0.5 mg/dL (0.2-1.3); Total Protein 6.5 g/dL (6.3-8.2)
[2023-08-04 11:53] LABS: Glucose,Whole Blood 104 mg/dL (70-110)
[2023-08-04 12:20] LABS: Basophils # (A) 0.1 k/uL (0-0.2); Basophils % (A) 0 %; Eosinophils # (A) 0.2 k/uL (0-0.7); Eosinophils % (A) 1 %; HCT 35.5 % (39.0-53.0); HGB 10.8 gm/dL (13.0-17.5); Hypochromasia Marked; Lymphocytes # (A) 1.2 k/uL (1.0-4.8); Lymphocytes % (A) 6 %; MCH 25.7 pg (25.0-35.0); MCHC 30.5 g/dL (31.0-37.0); MCV 84.2 fL (80.0-100.0); Mean Platelet Volume 7.9; Monocytes # (A) 0.7 k/uL (0-1.0); Monocytes % (A) 3 %; Neutrophils # (A) 17.3 k/uL (1.3-7.7); Neutrophils % (A) 89 %; Platelet Count 535 k/uL (150-450); RBC 4.22 m/uL (4.30-5.90); RDW 15.2 % (11.5-15.5); WBC 19.6 k/uL (3.8-10.6)
--- NOTE | 2023-08-04 12:38 | XR ---
EXAMINATION TYPE: XR abdomen 1V DATE OF EXAM: 08/04/2023 Comparison: None Clinical History: 63-year-old male vomiting Findings: Distention of the stomach and dilated small bowel loops measuring up to 1.5 cm. Moderate stool in the right side of the colon. Anterior midline skin rosetta. Impression: Diffuse distention of the stomach and small bowel. Small bowel is dilated up to 4.5 cm. We note anter ior midline skin rosetta; query any recent operation. Both ileus and small bowel obstruction are in t he differential. Note supine imaging which is limited for assessment of free air.
--- NOTE | 2023-08-04 13:30 | P.PN ---
Subjective Progress Note Date: 08/04/23 CHIEF COMPLAINT: Sacral decubitus ulcers HISTORY OF PRESENT ILLNESS: Patient postop day #3 status post diverting colostomy. Patient postop day #2 status postdebridement of decubitus ulcer. Patient's ostomy is functioning. Patient has been diaphoretic. He did have episode of emesis with brown in color. Ostomy is functioning. He does report abdominal pain. He has been tachycardic. A team was called. X-ray of abdomen shows diffuse distention of the stomach and small bowel. Small bowel is dilated up to 4.5 cm. Both ileus and small bowel obstruction are in differential. Not supine imaging which is limited for assessment of free air. Patient seen and examined with Dr. Pabon. WBC is up to 19.6 Hgb 10.8 platelets 535. Afebrile. Discussed case with Dr. Pabon. No further imaging recommended per Dr. Pabon at this time. PHYSICAL EXAM: VITAL SIGNS: Reviewed. GENERAL: Well-developed in no acute distress. ABDOMEN: Soft. Nondistended. Incision site clean dry and intact. Ostomy with stool present. Stoma unable to be visualized NEUROLOGIC: Alert and oriented. Cranial nerves II through XII grossly intact. ASSESSMENT: 1. Stage IV sacral decubitus ulcers 2. Sepsis 3. Hyponatremia improving 4. Diabetes mellitus 5. Medical noncompliance 6. Ileus PLAN: -Place NG tube for decompression -Make patient n.p.o. -Continue IV fluids -Consult ostomy nurse for ostomy teaching -Continue pain management -Antibiotics per ID service -Local wound care per ID service -Repeat CBC in a.m. Physician Human Resources Hr Representative note has been reviewed by physician. Signing provider agrees with the documented findings, assessment, and plan of care. Objective - Vital Signs Vital signs: Vital Signs Temp 98.9 F 08/04/23 07:04 Pulse 67 08/04/23 07:04 Resp 15 08/04/23 07:04 BP 125/84 08/04/23 07:04 Pulse Ox 98 08/04/23 07:04 FiO2 Intake & Output 08/03/23 08/04/23 08/04/23 18:59 06:59 18:59 Intake Total 20 0 Output Total 600 400 Balance -580 -400 Weight 58.97 kg Intake: IV 20 Oral 0 Output: Urine 600 400 Other: Voiding Method Indwelling Catheter Indwelling Catheter Indwelling Catheter - Labs CBC & Chem 7: 08/04/23 11:09 08/04/23 11:09 Labs: Abnormal Lab Results - Last 24 Hours (Table) 08/03/23 08/03/23 08/03/23 Range/Units 12:10 17:37 20:08 Carbon Dioxide (22-30) mmol/L Creatinine (0.66-1.25) mg/dL Glucose (74-99) mg/dL POC Glucose (mg/dL) 219 H 187 H 182 H (70-110) mg/dL AST (17-59) U/L Albumin (3.5-5.0) g/dL 08/04/23 Range/Units 11:09 Carbon Dioxide 35 H (22-30) mmol/L Creatinine 0.39 L (0.66-1.25) mg/dL Glucose 116 H (74-99) mg/dL POC Glucose (mg/dL) (70-110) mg/dL AST 13 L (17-59) U/L Albumin 2.7 L (3.5-5.0) g/dL Microbiology - Last 24 Hours (Table) 08/01/23 05:10 Blood Culture - Preliminary Blood
[2023-08-04 16:49] LABS: Glucose,Whole Blood 138 mg/dL (70-110)
[2023-08-04 18:02] LABS: Glucose,Whole Blood 133 mg/dL (70-110)
[2023-08-04] MEDS: PROCHLORPERAZINE INJ 10 MG/2 ML VIAL IVP STA (18:09)
--- NOTE | 2023-08-04 19:23 | XR ---
EXAMINATION TYPE: XR abdomen 1V DATE OF EXAM: 08/04/2023 6:27 PM CLINICAL HISTORY: NG tube placement TECHNIQUE: Upright view COMPARISON: None. FINDINGS/IMPRESSION: NG tube port superimposed over the mid/distal thoracic esophagus. NG tube tip superimposed over the e xpected position of the distal most thoracic esophagus. NG tube may be better placed if advanced 10 c m. In the stomach is gas-distended. Distention of the stomach and dilated small bowel loops are redemonstrated. There is peculiar lucency in the right upper quadrant, with pneumoperitoneum not able to be excluded.
[2023-08-04 19:43] LABS: Glucose,Whole Blood 150 mg/dL (70-110)
--- NOTE | 2023-08-04 19:59 | P.PN ---
Progress Note - Text Progress Note Date: 08/04/23 Chief Complaint: Sacral wound This is a 63-year-old patient, follows with Dr. Mendez. Chronic stable medical conditions include ADHD, herniated disc lower back, smoker. Sacral wounds. Left AKA. right above-knee amputation by Dr. Zee on April 2023 Recently presented, not being compliant. Smoking cigarettes. Recreational drugs. Patient has not followed up for his PICC line antibiotics last discharge and was discharged on oral Augmentin. Patient has seen Dr. Zee from vascular and wound care Dr. Bahena. Patient's son lives with him. Patient now presents with worsening sacral wound. Eating fair. Continues to smoke cigarettes. Does marijuana. Tired. Some wheezing shortness of breath. June: Patient seen by Dr. eZe. Sacral decubitus wound will be followed by Dr. Pabon's team. For possible diverting colostomy. Patient is on IV Zosyn. Eating well. Urine drug screen was positive for opiates, amphetamines, methamphetamines, marijuana. Home pain medications were resumed. July 1: Patient being scheduled for diverting colostomy on Tuesday with Dr. Pabon. And debridement of sacral ulcer on Tuesday. Continue antibiotics. Patient eating well. July 2: Laying in bed. Comfortable. Son and family visiting. Scheduled for surgery on Tuesday and Tuesday. Eating well. Antibiotics in place. July 3: Comfortable. Tolerating diet. Pending surgery tomorrow for diverting colostomy. Discussed with patient. July 31: Patient underwent diverting colostomy today. With sigmoid colectomy. Left-sided colostomy. Postprocedure tired. Laying in bed. Due for sacral wound debridement tomorrow. August 01: Patient underwent debridement of sacral decubitus ulcer by Dr. Pabon. Had a good supper. manager science looking into discharge planning. August 02: Patient in bed. Son at the bedside. Spoke to the case worker Vernon to discover that patient actually has insurance. He should build to qualify for rehab. Looking into the same. Antibiotics to continue. PICC line was placed by Dr. Schulz from vascular today. August 03: Saw the patient this morning. Vomited twice. A bit dark-colored. Had dark-colored liquid output in the colostomy bag. Did not eat anything this morning. Diet was scaled back. Abdominal x-ray showed diffuse distention of the stomach and the small bowel. Small bowel was dilated up to 4.5 cm. Later patient is moved to the selective floor for telemetry. NG tube was placed. Dr Pabon from surgery is following. Active Medications Acetaminophen (Acetaminophen Tab 325 Mg Tab) 650 mg PO Q6HR PRN PRN Reason: Mild Pain or Fever > 100.5 Last Admin: 07/29/23 00:42 Dose: 650 mg Hydrocodone Bitart/Acetaminophen (Hydrocodone/Apap 10-325mg 1 Each Tab) 1 each PO QID [facility] Last Admin: 08/04/23 17:13 Dose: Not Given Calcium Carbonate/Glycine (Calcium Carbonate 500 Mg Chewable) 1,000 mg PO Q4HR PRN PRN Reason: Dyspepsia Dextrose/Water (Dextrose 50% Syringe 50 Ml) 25 ml IVP PER PROTOCOL PRN; Protocol PRN Reason: Hypoglycemia Dextrose/Water (Dextrose 50% Syringe 50 Ml) 50 ml IVP PER PROTOCOL PRN; Protocol PRN Reason: Hypoglycemia Diphenhydramine HCl (Diphenhydramine 50 Mg/Ml 1 Ml Vial) 25 mg IVP Q6HR PRN PRN Reason: Itching Famotidine (Famotidine 20 Mg Tab) 20 mg PO BID [facility] Last Admin: 08/04/23 11:11 Dose: Not Given Hydromorphone HCl (Hydromorphone 1 Mg/Ml 1 Ml Syringe) 1 mg IVP Q3HR PRN PRN Reason: Breakthrough Pain Last Admin: 08/04/23 06:21 Dose: 1 mg Piperacillin Sod/Tazobactam (Sod 3.375 gm/ Sodium Chloride) 100 mls @ 25 mls/hr IVPB Q8H [facility]; Protocol Last Admin: 08/04/23 14:09 Dose: 25 mls/hr Lactated Ringer's (Lactated Ringers) 1,000 mls @ 75 mls/hr IV .[id number] [facility] Last Admin: 08/04/23 15:19 Dose: 75 mls/hr Lactated Ringer's (Lactated Ringers) 1,000 mls @ 20 mls/hr IV .Q24H [facility] Last Admin: 08/04/23 15:11 Dose: Not Given Ropivacaine 250 mg/Hydromorphone HCl 5 mg/ Sodium Chloride 250 mls @ 0 mls/hr EPIDURAL .Q0M [facility]; Protocol PRN Reason: Pain Insulin Aspart (Insulin Aspart (Novolog) 100 Unit/Ml Vial) 0 unit SQ ACHS [facility]; Protocol Last Admin: 08/04/23 16:55 Dose: Not Given Insulin Detemir (Insulin Detemir (Levemir) 100 Unit/Ml Syr) 15 unit SQ HS [facility] Last Admin: 08/03/23 21:15 Dose: 15 unit Lactulose (Lactulose 20 Gm/30 Ml Cup) 20 gm PO DAILY PRN PRN Reason: Constipation Lidocaine HCl (Lidocaine 1% (10mg/Ml) For Iv Start) 0.1 ml INTRADERMA PER PROTOCOL PRN PRN Reason: IV Start Lorazepam (Lorazepam 0.5 Mg Tab) 0.5 mg PO Q6HR PRN PRN Reason: Anxiety Methocarbamol (Methocarbamol 500 Mg Tab) 500 mg PO QID [facility] Last Admin: 08/04/23 17:13 Dose: Not Given Naloxone HCl (Naloxone 0.4 Mg/Ml 1 Ml Vial) 0.2 mg IV Q2M PRN PRN Reason: Opioid Reversal Ondansetron HCl (Ondansetron 4 Mg/2 Ml Vial) 4 mg IVP Q6HR PRN PRN Reason: Nausea And Vomiting Last Admin: 08/04/23 16:19 Dose: 4 mg Prochlorperazine Edisylate (Prochlorperazine Inj 10 Mg/2 Ml Vial) 10 mg IVP Q6HR PRN PRN Reason: Nausea And Vomiting Temazepam (Temazepam 15 Mg Cap) 15 mg PO HS PRN PRN Reason: Insomnia Last Admin: 08/03/23 21:17 Dose: 15 mg Past medical history to include: Diabetes, possible ADHD, chronic low back pain, herniated disc, atrial fibrillation. COPD. left above-knee amputation. Right below-knee amputation. Sacral wound Social history: Son lives with the patient. 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 Smokes about a pack a day, now down to a few cigarettes a day. Alcohol occasionally. Marijuana Physical examination: VITAL SIGNS: 97.6, 110, 19, 134/89, 97% on 2 L GENERAL: Laying in bed, tired EYES: Pupils equal. Conjunctiva normal. HEENT: External appearance of nose and ears normal, oral cavity grossly normal. NECK: JVD not raised; masses not palpable. HEART: First and second heart sounds are normal; no edema. LUNGS: Respiratory rate increased l; decreased breath sounds. No wheezing ABDOMEN: Soft, left-sided colostomy-full liquid dark output. Dressing over midline incision PSYCH: Answering questions appropriately MUSCULOSKELETAL: Left and right above-knee amputation, incisions with rosetta healing well. Sacral wound. NEUROLOGICAL: Moving all 4 limbs. INVESTIGATIONS, reviewed in the clinical context: August 03: White count 19.6 hemoglobin 10.8 potassium 3.8 creatinine 0.39 abdominal x-ray film personally reviewed by me-dilated stomach and small bowel July 31: White count 8.1 hemoglobin 10.1 platelets 515 potassium 4.9 creatinine 0.47 Blood culture [July 26] Clostridium sporogenes Wound culture: E. coli/Proteus mirabilis/beta-hemolytic Streptococcus. July 29: White count 10.0 hemoglobin 8.9 platelets 442 potassium 4.2 creatinine 0.3 July 28: White count 10.5 hemoglobin 8.2 platelets are 82 potassium 3.6 creatinine 0.4 Urine drug screen: Positive for opiates, amphetamines, meth amphetamines, marijuana July 26: White count 7.8 hemoglobin 10.3 platelets 522 sodium 125 potassium 4.7 BUN 13 creatinine 0.31 CRP 20.8 albumin 2.6 Assessment and plan: -Acute metabolic encephalopathy from recreational drugs. Patient last admission all the same presentation.: Improved Urine drug screen positive for methamphetamines, amphetamines, opiates, marijuana -Acute small bowel obstruction with distended stomach with nausea vomiting. Patient moved to the telemetry for closer nursing monitoring. Surgery following: New diagnosis Patient made NPO. NG tube to suction. -Right above-knee amputation by Dr. Zee on May 26. Cultures grew multip le organisms. discharged on June 03/2024 with IV ceftriaxone with a PICC line for 6 weeks. Patient never showed up for his IV antibiotics. Was subsequently discharged with Augmentin on the last visit -Sacral decubitus ulcer. With acute osteomyelitis. Patient has been noncompliant with his antibiotics Followed by Dr. Bahena from wound care center. Dr Pabon schedule -underwent debridement on August 01 IV Zosyn with ID Diverting colostomy-y Dr. Pabon on July 31 -Blood cultures positive for Clostridium Sporogenes, on July 26. Repeat blood cultures negative -Paroxysmal atrial fibrillation: sinus rhythm Amiodarone. Lopressor. -Diabetes mellitus type 2, chronically on insulin Cut back to Lantus to 10 units at night.. -COPD in a current smoker Bronchodilators as needed -Chronic nicotine dependence, cigarette smoker Nicotine patch -Chronic medical debility. Non-ambulatory -Full code NG tube to suction. NPO. Increase IV fluids. Past Medical History Past Medical History: Diabetes Mellitus Additional Past Medical History / Comment(s): pressure ulcers[Buttock,simone heals ,rt lateral foot]. BLOOD "ECOLI" INFECTION. History of Any Multi-Drug Resistant Organisms: None Reported Past Surgical History: Orthopedic Surgery Additional Past Surgical History / Comment(s): back pain son states pt recently "slipped a disc" taking gabapentin. Left leg above the knee amputation. MICHELLE PICC LINE. Past Anesthesia/Blood Transfusion Reactions: No Reported Reaction Past Psychological History: No Psychological Hx Reported Smoking Status: Current every day smoker Past Alcohol Use History: Rare Past Drug Use History: None Reported
[2023-08-04] MEDS: INSULIN DETEMIR (LEVEMIR) 100 UNIT/ML SYR SQ SCH (22:04)
--- NOTE | 2023-08-04 22:31 | XR ---
EXAM: XR Abdomen, 1 View CLINICAL HISTORY: ITS.REASON XR Reason: NG tube placement confirmation TECHNIQUE: Frontal supine view of the abdomen/pelvis. COMPARISON: 08/04/2023 at 6:13 PM and 12:14 PM FINDINGS/IMPRESSION: 1. Esophagogastric tube terminates in the gastric body/fundus. 2. Gaseous distention of the stomach and small bowel again visualized. 3. Free air under the right hemidiaphragm is unchanged.
[2023-08-05 06:24] LABS: Glucose,Whole Blood 153 mg/dL (70-110)
[2023-08-05] MEDS: PROCHLORPERAZINE INJ 10 MG/2 ML VIAL IVP PRN (09:18)
[2023-08-05 11:16] LABS: Glucose,Whole Blood 127 mg/dL (70-110)
[2023-08-05] MEDS: METOCLOPRAMIDE 5 MG/ML 2 ML VIAL IVP SCH (12:25)
--- NOTE | 2023-08-05 12:40 | P.PN ---
Subjective Progress Note Date: 08/03/23 Principal diagnosis: Reason for follow-up is infected sacral pressure ulcer Patient is a 63-year-old male with a past medical history significant for diabetes mellitus in this patient who did have a history of PAD s/p bilateral [id number] amputation and did have a stage IV sacral pressure ulcer that has been there for a few months, noncompliance with the previous IV and local care treatment presented to hospital with worsening wound and fever, Patient is status post sigmoid colectomy with end colostomy completed on 08/01/2023 and the patient is status post excision debridement of his sacral pressure ulcer by general surgery completed on 08/02/2023 On today's evaluation that is 08/03/2023,the patient remains to be afebrile, patient is on 2 L nasal cannula supplemental oxygen and denies any shortness of breath no chest pain or cough.Patient has been complaining of some nausea but no vomiting has been complaining of abdominal pain no output in the colostomy No blood work today Objective - Vital Signs Vital signs: Vital Signs Temp 98.2 F 08/03/23 07:14 Pulse 73 08/03/23 07:14 Resp 16 08/03/23 08:00 BP 117/70 08/03/23 07:14 Pulse Ox 97 08/03/23 07:14 FiO2 Intake & Output 08/02/23 08/03/23 08/03/23 18:59 06:59 18:59 Intake Total 2100 0 Output Total 2260 800 Balance -160 -800 Weight 58.97 kg 58.97 kg Intake: IV 1600 Intake, IV Titration 500 Amount Lactated Ringers 1,000 ml 300 @ 75 mls/hr IV .[id number] [facility] Rx#:[id number] Piperacillin-Tazobactam 3 200 .375 gm In Sodium Chloride 0.9% 100 ml @ 25 mls/hr IVPB Q8H [facility] Rx#: [id number] Oral 0 Output: Urine 2250 800 Estimated Blood Loss 10 Other: Voiding Method Indwelling Catheter Indwelling Catheter Indwelling Catheter - Exam GENERAL DESCRIPTION: Middle-age male lying in bed in no distress RESPIRATORY SYSTEM: Unlabored breathing , decreased breath sounds at bases HEART: S1 S2 regular rate and rhythm , ABDOMEN: Soft , no tenderness EXTREMITIES: Bilateral AKA stump no redness or drainage - Labs CBC & Chem 7: 08/04/23 11:09 03/07/24 11:09 Labs: Abnormal Lab Results - Last 24 Hours (Table) 08/02/23 08/02/23 08/02/23 Range/Units 12:59 17:11 20:10 POC Glucose (mg/dL) 157 H 227 H 298 H (70-110) mg/dL 08/03/23 08/03/23 Range/Units 07:12 12:10 POC Glucose (mg/dL) 148 H 219 H (70-110) mg/dL Microbiology - Last 24 Hours (Table) 08/01/23 05:10 Blood Culture - Preliminary Blood Assessment and Plan (1) Sacral decubitus ulcer, stage IV Current Visit: Yes Status: Acute Code(s): L89.154 - PRESSURE ULCER OF SACRAL REGION, STAGE 4 SNOMED Code(s): 96397865987248 (2) Sacral osteomyelitis Current Visit: No Status: Acute Code(s): M46.28 - OSTEOMYELITIS OF VERTEBRA, SACRAL AND SACROCOCCYGEAL REGION SNOMED Code(s): 106640642 (3) Positive blood culture Current Visit: Yes Status: Acute Code(s): R78.81 - BACTEREMIA SNOMED Code( s): 842851225 Plan: 1patient was in the hospital with sepsis in this patient who did have a fever tachycardia elevated white count source is infected sacral pressure ulcer likely stage IV with underlying osteomyelitis in this patient wound has been there for couple of months now and noncompliance with treatment in the outpatient setting 2-positive blood culture more likely related to his infected sacral pressure ulcer, blood culture has been repeated to document clearance of bacteremia and so far negative 3-The patient local culture currently growing E. coli and Proteus and beta- hemolytic Streptococcus 4-patient is status post diverting colostomy and surgical debridement of his large sacral pressure ulcer 5-patient will continue patient on Zosyn and monitor clinical course closely Dictation was produced using [employer] dictation software. please excuse any grammatical, word or spelling errors. Time with Patient: Less than 30
--- NOTE | 2023-08-05 12:41 | P.PN ---
Subjective Progress Note Date: 08/04/23 Principal diagnosis: Reason for follow-up is infected sacral pressure ulcer Patient is a 63-year-old male with a past medical history significant for diabetes mellitus in this patient who did have a history of PAD s/p bilateral [id number] amputation and did have a stage IV sacral pressure ulcer that has been there for a few months, noncompliance with the previous IV and local care treatment presented to hospital with worsening wound and fever, Patient is status post sigmoid colectomy with end colostomy completed on 08/01/2023 and the patient is status post excision debridement of his sacral pressure ulcer by general surgery completed on 08/02/2023 On today's evaluation that is 08/04/2023, the patient continues to be afebrile, the patient is on 2 L nasal cannula oxygen and breathing comfortably, the Pt denies having any chest pain or cough, the patient has been complaining of nausea and did have multiple episodes of vomiting abdominal discomfort Patient white count is up to 19.6 creatinine 0.39 Objective - Vital Signs Vital signs: Vital Signs Temp 97.6 F 08/04/23 12:06 Pulse 120 H 08/04/23 12:06 Resp 19 08/04/23 12:06 BP 134/89 08/04/23 12:06 Pulse Ox 97 08/04/23 12:06 FiO2 Intake & Output 08/03/23 08/04/23 08/04/23 18:59 06:59 18:59 Intake Total 20 0 Output Total 600 400 800 Balance -580 -400 -800 Weight 58.97 kg Intake: IV 20 Oral 0 Output: Gastric Drainage 800 Urine 600 400 Other: Voiding Method Indwelling Catheter Indwelling Catheter Indwelling Catheter - Exam GENERAL DESCRIPTION: Middle-age male lying in bed in no distress RESPIRATORY SYSTEM: Unlabored breathing , decreased breath sounds at bases HEART: S1 S2 regular rate and rhythm , ABDOMEN: Soft , no tenderness EXTREMITIES: Bilateral AKA stump no redness or drainage - Labs CBC & Chem 7: 08/04/23 11:09 08/04/23 11:09 Labs: Abnormal Lab Results - Last 24 Hours (Table) 08/03/23 08/03/23 08/04/23 Range/Units 17:37 20:08 11:09 WBC 19.6 H (3.8-10.6) k/uL RBC 4.22 L (4.30-5.90) m/uL Hgb 10.8 L (13.0-17.5) gm/dL Hct 35.5 L (39.0-53.0) % MCHC 30.5 L (31.0-37.0) g/dL Plt Count 535 H (150-450) k/uL Neutrophils # 17.3 H (1.3-7.7) k/uL Carbon Dioxide (22-30) mmol/L Creatinine (0.66-1.25) mg/dL Glucose (74-99) mg/dL POC Glucose (mg/dL) 187 H 182 H (70-110) mg/dL AST (17-59) U/L Albumin (3.5-5.0) g/dL 08/04/23 Range/Units 11:09 WBC (3.8-10.6) k/uL RBC (4.30-5.90) m/uL Hgb (13.0-17.5) gm/dL Hct (39.0-53.0) % MCHC (31.0-37.0) g/dL Plt Count (150-450) k/uL Neutrophils # (1.3-7.7) k/uL Carbon Dioxide 35 H (22-30) mmol/L Creatinine 0.39 L (0.66-1.25) mg/dL Glucose 116 H (74-99) mg/dL POC Glucose (mg/dL) (70-110) mg/dL AST 13 L (17-59) U/L Albumin 2.7 L (3.5-5.0) g/dL Microbiology - Last 24 Hours (Table) 08/01/23 05:10 Blood Culture - Preliminary Blood Assessment and Plan (1) Sacral decubitus ulcer, stage IV Current Visit: Yes Status: Acute Code(s): L89.154 - PRESSURE ULCER OF SACRAL REGION, STAGE 4 SNOMED Code(s): 68900512137765 (2) Sacral osteomyelitis Current Visit: No Status: Acute Code(s): M46.28 - OSTEOMYELITIS OF VERTEBRA, SACRAL AND SACROCOCCYGEAL REGION SNOMED Code(s): 667421262 (3) Positive blood culture Current Visit: Yes Status: Acute Code(s): R78.81 - BACTEREMIA SNOMED Code(s): 956996835 Plan: 1patient was in the hospital with sepsis in this patient who did have a fever tachycardia elevated white count source is infected sacral pressure ulcer likely stage IV with underlying osteomyelitis in this patient wound has been there for couple of months now and noncompliance with treatment in the outpatient setting 2-positive blood culture more likely related to his infected sacral pressure ulcer, blood culture has been repeated to document clearance of bacteremia and so far negative 3-The patient local culture currently growing E. coli and Proteus and beta-hemolytic Streptococcus 4-patient is status post diverting colostomy and surgical debridement of his large sacral pressure ulcer 5-patient did have a PICC line placement on 08/03/2023 6patient did have change in clinical condition and has been vomiting transferred to the telemetry floor General surgery is following continue with Macey Dictation was produced using [employer] dictation software. please excuse any grammatical, word or spelling errors. Time with Patient: Less than 30
--- NOTE | 2023-08-05 12:42 | P.PN ---
Subjective Progress Note Date: 08/05/23 Principal diagnosis: Reason for follow-up is infected sacral pressure ulcer Patient is a 63-year-old male with a past medical history significant for diabetes mellitus in this patient who did have a history of PAD s/p bilateral [id number] amputation and did have a stage IV sacral pressure ulcer that has been there for a few months, noncompliance with the previous IV and local care treatment presented to hospital with worsening wound and fever, Patient is status post sigmoid colectomy with end colostomy completed on 08/01/2023 and the patient is status post excision debridement of his sacral pressure ulcer by general surgery completed on 08/02/2023 On today's evaluation that is 08/03/2023,the patient continues to be afebrile, patient is on 3 L nasal cannula l oxygen and denies any shortness of breath no chest pain or cough.Patient continued complaining of nausea and did have multiple episodes of vomiting no worsening abdominal pain he did have some output in the colostomy bag Labs pending from this morning Objective - Vital Signs Vital signs: Vital Signs Temp 98.2 F 08/05/23 08:00 Pulse 108 H 08/05/23 11:53 Resp 18 08/05/23 11:53 BP 134/73 08/05/23 11:53 Pulse Ox 90 L 08/05/23 11:53 FiO2 Intake & Output 08/04/23 08/05/23 08/05/23 18:59 06:59 18:59 Intake Total 0 10 10 Output Total 1075 850 Balance -1075 -840 10 Intake: IV 10 10 Invasive Line 5 10 10 Oral 0 Output: Gastric Drainage 800 Urine 275 250 Emesis 600 Other: Voiding Method Indwelling Catheter Indwelling Catheter Indwelling Catheter - Exam GENERAL DESCRIPTION: Middle-age male lying in bed in no distress RESPIRATORY SYSTEM: Unlabored breathing , decreased breath sounds at bases HEART: S1 S2 regular rate and rhythm , ABDOMEN: Soft , no tenderness EXTREMITIES: Bilateral AKA stump no redness or drainage - Labs CBC & Chem 7: 08/04/23 11:09 08/04/23 11:09 Labs: Abnormal Lab Results - Last 24 Hours (Table) 08/04/23 08/04/23 08/04/23 Range/Units 16:47 18:00 19:41 POC Glucose (mg/dL) 138 H 133 H 150 H (70-110) mg/dL 08/05/23 08/05/23 Range/Units 06:22 11:15 POC Glucose (mg/dL) 153 H 127 H (70-110) mg/dL Microbiology - Last 24 Hours (Table) 08/01/23 05:10 Blood Culture - Preliminary Blood Assessment and Plan (1) Sacral decubitus ulcer, stage IV Current Visit: Yes Status: Acute Code(s): L89.154 - PRESSURE ULCER OF SACRAL REGION, STAGE 4 SNOMED Code(s): 92103519111427 (2) Sacral osteomyelitis Current Visit: No Status: Acute Code(s): M46.28 - OSTEOMYELITIS OF VERTEBRA, SACRAL AND SACROCOCCYGEAL REGION SNOMED Code(s): 197585028 (3) Positive blood culture Current Visit: Yes Status: Acute Code(s): R78.81 - BACTEREMIA SNOMED Code(s): 785780829 Plan: 1patient was in the hospital with sepsis in this patient who did have a fever tachycardia elevated white count source is infected sacral pressure ulcer likely stage IV with underlying osteomyelitis in this patient wound has been there for couple of months now and noncompliance with treatment in the outpatient setting 2-positive blood culture more likely related to his infected sacral pressure ulcer, blood culture has been repeated to document clearance of bacteremia and so far negative 3-The patient local culture currently growing E. coli and Proteus and beta-hemolytic Streptococcus 4-patient is status post diverting colostomy and surgical debridement of his large sacral pressure ulcer 5-patient did have a PICC line placement on 08/03/2023 6patient did have change in clinical condition and has been vomiting transferred to the telemetry floor General surgery is following 7-patient did have slight worsening of his white count yesterday we are waiting for the CBC from this morning and for now continue with the Zosyn Dictation was produced using [employer] dictation software. please excuse any grammatical, word or spelling errors.
--- NOTE | 2023-08-05 13:01 | XR ---
EXAMINATION TYPE: XR abdomen 1V DATE OF EXAM: 08/05/2023 Comparison: 08/04/2023 Clinical History: 63-year-old male NG tube placement Findings: Ongoing moderate free air below the right hemidiaphragm. NG tube remains in place. Air distention of the stomach and multiple small bowel loops redemonstrated. Small bowel measures up to 4.2 cm versus 4 .0 cm, previously. Moderate stool in the right side of the abdomen. Anterior midline skin rosetta ove r the abdomen. Impression: 1. Ongoing moderate free air below the right hemidiaphragm. 2. Satisfactory NG tube. 3. Ongoing distention of the stomach and dilated small bowel loops measuring up to 4.2 cm, relatively similar compared to 4.0 cm, previously.
--- NOTE | 2023-08-05 15:03 | P.PN ---
Subjective Progress Note Date: 08/05/23 CHIEF COMPLAINT: Sacral decubitus ulcers HISTORY OF PRESENT ILLNESS: Patient postop day #4 status post diverting colostomy. Patient postop day #3 status postdebridement of decubitus ulcer. Patient's ostomy is functioning. Patient required transfer to the third floor yesterday due to being tachycardic and diaphoretic. He was found to have an abdominal ileus and NG tube was placed. Patient is having output through his ostomy but did have 1200 mL output through NG tube. Abdominal x-ray reports tracey oing moderate free air below the right hemidiaphragm. Satisfactory NG tube placement. Ongoing distention of stomach and dilated small bowel loops measuring up to 4.2 cm PHYSICAL EXAM: VITAL SIGNS: Reviewed. GENERAL: Well-developed in no acute distress. ABDOMEN: Mildly distended. Tender at incision site. Incision site clean dry and intact. Ostomy with stool present. Stoma unable to be visualized NEUROLOGIC: Alert and oriented. Cranial nerves II through XII grossly intact. ASSESSMENT: 1. Stage IV sacral decubitus ulcers 2. Sepsis 3. Hyponatremia improving 4. Diabetes mellitus 5. Medical noncompliance 6. Ileus PLAN: -Continue NG tube for decompression -Make patient n.p.o. -Add Reglan for ileus and continuous nausea and vomiting -Continue IV fluids -Consult ostomy nurse for ostomy teaching -Continue pain management -Antibiotics per ID service -Local wound care per ID service -Repeat CBC in a.m. Physician Piano Tuner note has been reviewed by physician. Signing provider agrees with the documented findings, assessment, and plan of care. Objective - Vital Signs Vital signs: Vital Signs Temp 98.2 F 08/05/23 08:00 Pulse 107 H 08/05/23 08:00 Resp 18 08/05/23 08:00 BP 136/75 08/05/23 08:00 Pulse Ox 96 08/05/23 08:00 FiO2 Intake & Output 08/04/23 08/05/23 08/05/23 18:59 06:59 18:59 Intake Total 0 10 10 Output Total 1075 850 Balance -1075 -840 10 Intake: IV 10 10 Invasive Line 5 10 10 Oral 0 Output: Gastric Drainage 800 Urine 275 250 Emesis 600 Other: Voiding Method Indwelling Catheter Indwelling Catheter Indwelling Catheter - Labs CBC & Chem 7: 08/04/23 11:09 03/07/24 11:09 Labs: Abnormal Lab Results - Last 24 Hours (Table) 08/04/23 08/04/23 08/04/23 Range/Units 11:09 11:09 16:47 WBC 19.6 H (3.8-10.6) k/uL RBC 4.22 L (4.30-5.90) m/uL Hgb 10.8 L (13.0-17.5) gm/dL Hct 35.5 L (39.0-53.0) % MCHC 30.5 L (31.0-37.0) g/dL Plt Count 535 H (150-450) k/uL Neutrophils # 17.3 H (1.3-7.7) k/uL Carbon Dioxide 35 H (22-30) mmol/L Creatinine 0.39 L (0.66-1.25) mg/dL Glucose 116 H (74-99) mg/dL POC Glucose (mg/dL) 138 H (70-110) mg/dL AST 13 L (17-59) U/L Albumin 2.7 L (3.5-5.0) g/dL 08/04/23 08/04/23 08/05/23 Range/Units 18:00 19:41 06:22 WBC (3.8-10.6) k/uL RBC (4.30-5.90) m/uL Hgb (13.0-17.5) gm/dL Hct (39.0-53.0) % MCHC (31.0-37.0) g/dL Plt Count (150-450) k/uL Neutrophils # (1.3-7.7) k/uL Carbon Dioxide (22-30) mmol/L Creatinine (0.66-1.25) mg/dL Glucose (74-99) mg/dL POC Glucose (mg/dL) 133 H 150 H 153 H (70-110) mg/dL AST (17-59) U/L Albumin (3.5-5.0) g/dL Microbiology - Last 24 Hours (Table) 08/01/23 05:10 Blood Culture - Preliminary Blood
--- NOTE | 2023-08-05 15:22 | P.PN ---
Progress Note - Text Progress Note Date: 08/05/23 Chief Complaint: Sacral wound This is a 63-year-old patient, follows with Dr. Mendez. Chronic stable medical conditions include ADHD, herniated disc lower back, smoker. Sacral wounds. Left AKA. right above-knee amputation by Dr. Zee on April 2023 Recently presented, not being compliant. Smoking cigarettes. Recreational drugs. Patient has not followed up for his PICC line antibiotics last discharge and was discharged on oral Augmentin. Patient has seen Dr. Zee from vascular and wound care Dr. Bahena. Patient's son lives with him. Patient now presents with worsening sacral wound. Eating fair. Continues to smoke cigarettes. Does marijuana. Tired. Some wheezing shortness of breath. June: Patient seen by Dr. Zee. Sacral decubitus wound will be followed by Dr. Pabon's team. For possible diverting colostomy. Patient is on IV Zosyn. Eating well. Urine drug screen was positive for opiates, amphetamines, methamphetamines, marijuana. Home pain medications were resumed. July 1: Patient being scheduled for diverting colostomy on Tuesday with Dr. Pabon. And debridement of sacral ulcer on Tuesday. Continue antibiotics. Patient eating well. July 2: Laying in bed. Comfortable. Son and family visiting. Scheduled for surgery on Tuesday and Tuesday. Eating well. Antibiotics in place. July 3: Comfortable. Tolerating diet. Pending surgery tomorrow for diverting colostomy. Discussed with patient. July 31: Patient underwent diverting colostomy today. With sigmoid colectomy. Left-sided colostomy. Postprocedure tired. Laying in bed. Due for sacral wound debridement tomorrow. August 01: Patient underwent debridement of sacral decubitus ulcer by Dr. Pabon. Had a good supper. product development manager looking into discharge planning. August 02: Patient in bed. Son at the bedside. Spoke to the dependency case manager Vernon to discover that patient actually has insurance. He should build to qualify for rehab. Looking into the same. Antibiotics to continue. PICC line was placed by Dr. Schulz from vascular today. August 03: Saw the patient this morning. Vomited twice. A bit dark-colored. Had dark-colored liquid output in the colostomy bag. Did not eat anything this morning. Diet was scaled back. Abdominal x-ray showed diffuse distention of the stomach and the small bowel. Small bowel was dilated up to 4.5 cm. Later patient is moved to the [facility] floor for telemetry. NG tube was placed. Dr Pabon from surgery is following. March: 8: NG tube to suction remains in place. Significant dark-colored output. Some output through the colostomy bag. Getting IV fluids. Tired Active Medications Acetaminophen (Acetaminophen Tab 325 Mg Tab) 650 mg PO Q6HR PRN PRN Reason: Mild Pain or Fever > 100.5 Last Admin: 07/29/23 00:42 Dose: 650 mg Hydrocodone Bitart/Acetaminophen (Hydrocodone/Apap 10-325mg 1 Each Tab) 1 each PO QID [facility] Last Admin: 08/05/23 13:39 Dose: Not Given Calcium Carbonate/Glycine (Calcium Carbonate 500 Mg Chewable) 1,000 mg PO Q4HR PRN PRN Reason: Dyspepsia Dextrose/Water (Dextrose 50% Syringe 50 Ml) 25 ml IVP PER PROTOCOL PRN; Protocol PRN Reason: Hypoglycemia Dextrose/Water (Dextrose 50% Syringe 50 Ml) 50 ml IVP PER PROTOCOL PRN; Protocol PRN Reason: Hypoglycemia Diphenhydramine HCl (Diphenhydramine 50 Mg/Ml 1 Ml Vial) 25 mg IVP Q6HR PRN PRN Reason: Itching Famotidine (Famotidine 20 Mg Tab) 20 mg PO BID [facility] Last Admin: 08/05/23 09:18 Dose: 20 mg Hydromorphone HCl (Hydromorphone 1 Mg/Ml 1 Ml Syringe) 1 mg IVP Q3HR PRN PRN Reason: Breakthrough Pain Last Admin: 08/05/23 04:09 Dose: 1 mg Piperacillin Sod/Tazobactam (Sod 3.375 gm/ Sodium Chloride) 100 mls @ 25 mls/hr IVPB Q8H [facility]; Protocol Last Admin: 08/05/23 13:43 Dose: 25 mls/hr Lactated Ringer's (Lactated Ringers) 1,000 mls @ 125 mls/hr IV .Q8H [facility] Last Admin: 08/05/23 12:30 Dose: 125 mls/hr Ropivacaine 250 mg/Hydromorphone HCl 5 mg/ Sodium Chloride 250 mls @ 0 mls/hr EPIDURAL .Q0M PRN; Protocol PRN Reason: Pain Insulin Aspart (Insulin Aspart (Novolog) 100 Unit/Ml Vial) 0 unit SQ ACHS [facility]; Protocol Last Admin: 08/05/23 12:30 Dose: Not Given Insulin Detemir (Insulin Detemir (Levemir) 100 Unit/Ml Syr) 10 unit SQ HS [facility] Last Admin: 08/04/23 22:04 Dose: 10 unit Lactulose (Lactulose 20 Gm/30 Ml Cup) 20 gm PO DAILY PRN PRN Reason: Constipation Lidocaine HCl (Lidocaine 1% (10mg/Ml) For Iv Start) 0.1 ml INTRADERMA PER PROTOCOL PRN PRN Reason: IV Start Lorazepam (Lorazepam 0.5 Mg Tab) 0.5 mg PO Q6HR PRN PRN Reason: Anxiety Methocarbamol (Methocarbamol 500 Mg Tab) 500 mg PO QID [facility] Last Admin: 08/05/23 12:31 Dose: Not Given Metoclopramide HCl (Metoclopramide 5 Mg/Ml 2 Ml Vial) 10 mg IVP Q6HR [facility] Last Admin: 08/05/23 12:25 Dose: 10 mg Naloxone HCl (Naloxone 0.4 Mg/Ml 1 Ml Vial) 0.2 mg IV Q2M PRN PRN Reason: Opioid Reversal Ondansetron HCl (Ondansetron 4 Mg/2 Ml Vial) 4 mg IVP Q6HR PRN PRN Reason: Nausea And Vomiting Last Admin: 08/05/23 03:27 Dose: 4 mg Temazepam (Temazepam 15 Mg Cap) 15 mg PO HS PRN PRN Reason: Insomnia Last Admin: 08/03/23 21:17 Dose: 15 mg Past medical history to include: Diabetes, possible ADHD, chronic low back pain, herniated disc, atrial fibrillation. COPD. left above-knee amputation. Right below-knee amputation. Sacral wound Social history: Son lives with the patient. 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 Smokes about a pack a day, now down to a few cigarettes a day. Alcohol occasionally. Marijuana Physical examination: VITAL SIGNS: 98.2, 107, 18, 136/35, 96% on 3 L GENERAL: Laying in bed, tired EYES: Pupils equal. Conjunctiva normal. HEENT: External appearance of nose and ears normal, NG tube to suction NECK: JVD not raised; masses not palpable. HEART: First and second heart sounds are normal; no edema. LUNGS: Respiratory rate increased l; decreased breath sounds. No wheezing ABDOMEN: Soft, left-sided colostomy-full liquid dark output. Dressing over midline incision PSYCH: Tired MUSCULOSKELETAL: Left and right above-knee amputation, incisions with rosetta healing well. Sacral wound. NEUROLOGICAL: Moving all 4 limbs. INVESTIGATIONS, reviewed in the clinical context: August 03: White count 19.6 hemoglobin 10.8 potassium 3.8 creatinine 0.39 abdominal x-ray film personally reviewed by me-dilated stomach and small bowel July 31: White count 8.1 hemoglobin 10.1 platelets 515 potassium 4.9 creatinine 0.47 Blood culture [July 26] Clostridium sporogenes Wound culture: E. coli/Proteus mirabilis/beta-hemolytic Streptococcus. July 29: White count 10.0 hemoglobin 8.9 platelets 442 potassium 4.2 creatinine 0.3 July 28: White count 10.5 hemoglobin 8.2 platelets are 82 potassium 3.6 creatinine 0.4 Urine drug screen: Positive for opiates, amphetamines, meth amphetamines, marijuana July 26: White count 7.8 hemoglobin 10.3 platelets 522 sodium 125 potassium 4.7 BUN 13 creatinine 0.31 CRP 20.8 albumin 2.6 Assessment and plan: -Acute metabolic encephalopathy from recreational drugs. Patient last admission all the same presentation.: Resolved Urine drug screen positive for methamphetamines, amphetamines, opiates, marijuana -Acute small bowel obstruction with distended stomach with nausea vomiting. Patient moved to the telemetry for closer nursing monitoring. Surgery following: Slow to respond NPO. NG tube to suction. -Right above-knee amputation by Dr. Zee on May 26. Cultures grew multiple organisms. discharged on June 03/2024 with IV ceftriaxone with a PICC line for 6 weeks. Patient never showed up for his IV antibiotics. Was subsequently discharged with Augmentin on the last visit -Sacral decubitus ulcer. With acute osteomyelitis. Patient has been noncompliant with his antibiotics Followed by Dr. Bahena from wound care center. Dr Pabon schedule -underwent debridement on August 01 IV Zosyn with ID Diverting colostomy-y Dr. Pabon on July 31 -Blood cultures positive for Clostridium Sporogenes, on July 26. Repeat blood cultures negative -Paroxysmal atrial fibrillation: sinus rhythm Amiodarone. Lopressor. -Diabetes mellitus type 2, chronically on insulin Cut back to Lantus to 10 units at night.. -COPD in a current smoker Bronchodilators as needed -Chronic nicotine dependence, cigarette smoker Nicotine patch -Chronic medical debility. Non-ambulatory -Full code NG tube to suction. NPO. IV fluids. Past Medical History Past Medical History: Diabetes Mellitus Additional Past Medical History / Comment(s): pressure ulcers[Buttock,simone heals ,rt lateral foot]. BLOOD "ECOLI" INFECTION. History of Any Multi-Drug Resistant Organisms: None Reported Past Surgical History: Orthopedic Surgery Additional Past Surgical History / Comment(s): back pain son states pt recently "slipped a disc" taking gabapentin. Left leg above the knee amputation. MICHELLE PICC LINE. Past Anesthesia/Blood Transfusion Reactions: No Reported Reaction Past Psychological History: No Psychological Hx Reported Smoking Status: Current every day smoker Past Alcohol Use History: Rare Past Drug Use History: None Reported
[2023-08-05 16:47] LABS: Glucose,Whole Blood 120 mg/dL (70-110)
--- NOTE | 2023-08-05 16:49 | XR ---
EXAMINATION TYPE: XR chest 1V portable DATE OF EXAM: 08/05/2023 Comparison: Earlier today Clinical History: 63-year-old male NG placement Findings: CVC tip is at the upper right atrium. NG tube is in place, satisfactory. Ongoing moderate free air be low the right hemidiaphragm. Anterior midline skin rosetta along the abdomen. Persistently dilated sm all bowel loops currently measuring up to 3.8 cm versus 4.2 cm earlier today. Impression: Satisfactory NG tube. Persistent moderate free air below the right hemidiaphragm. Persistently dilate d small bowel loops measuring up to 3.8 cm versus 4.2 cm, previously.
[2023-08-05 20:29] LABS: Glucose,Whole Blood 95 mg/dL (70-110)
[2023-08-06 06:25] LABS: Glucose,Whole Blood 53 mg/dL (70-110)
[2023-08-06] MEDS: DEXTROSE 50% SYRINGE 50 ML IVP PRN (06:25)
[2023-08-06 06:51] LABS: Glucose,Whole Blood 116 mg/dL (70-110)
[2023-08-06 09:10] LABS: African American GFR (CKD) >90 (>60 ml/min/1.73 sqM); Anion Gap 6 mmol/L; Blood Urea Nitrogen 21 mg/dL (9-20); Calcium 8.8 mg/dL (8.4-10.2); Carbon Dioxide 35 mmol/L (22-30); Chloride 101 mmol/L (98-107); Glucose 80 mg/dL (74-99); Non-African American GFR(CKD) >90 (>60 ml/min/1.73 sqM); Potassium 2.8 mmol/L (3.5-5.1); Sodium 142 mmol/L (137-145)
[2023-08-06 11:26] LABS: Glucose,Whole Blood 56 mg/dL (70-110)
[2023-08-06] MEDS: POTASSIUM CHLORIDE ER 20 MEQ TAB.ER PO SCH (11:30)
[2023-08-06 11:52] LABS: Glucose,Whole Blood 136 mg/dL (70-110)
[2023-08-06] MEDS: POTASSIUM CHLORIDE 20 MEQ in WATER FOR INJECTION 1 100ML.BAG IVPB ONE ×2 (12:50→17:28)
--- NOTE | 2023-08-06 13:49 | P.PN ---
Subjective Progress Note Date: 08/06/23 Principal diagnosis: Reason for follow-up is infected sacral pressure ulcer Patient is a 63-year-old male with a past medical history significant for diabetes mellitus in this patient who did have a history of PAD s/p bilateral [id number] amputation and did have a stage IV sacral pressure ulcer that has been there for a few months, noncompliance with the previous IV and local care treatment presented to hospital with worsening wound and fever, Patient is status post sigmoid colectomy with end colostomy completed on 08/01/2023 and the patient is status post excision debridement of his sacral pressure ulcer by general surgery completed on 08/02/2023 On today's evaluation that is 08/06/2023, patient has been afebrile, patient is breathing comfortably and is currently on room air, patient slightly lethargic today and did not answer any question apparently could not help follow-up with the vomiting but no other changes reported by the nursing staff. Patient creatinine 0.37 no CBC was done today Objective - Vital Signs Vital signs: Vital Signs Temp 98.1 F 08/06/23 11:50 Pulse 108 H 08/06/23 11:50 Resp 18 08/06/23 11:50 BP 144/73 08/06/23 11:50 Pulse Ox 92 L 08/06/23 11:50 FiO2 Intake & Output 08/05/23 08/06/23 08/06/23 18:59 06:59 18:59 Intake Total 20 10 Output Total 350 550 900 Balance -330 -540 -900 Intake: IV 20 10 Invasive Line 5 20 10 Output: Gastric Drainage 900 Urine 350 550 Other: Voiding Method Indwelling Catheter Indwelling Catheter Indwelling Catheter - Exam GENERAL DESCRIPTION: Middle-age male lying in bed in no distress RESPIRATORY SYSTEM: Unlabored breathing , decreased breath sounds at bases HEART: S1 S2 regular rate and rhythm , ABDOMEN: Soft , no tenderness EXTREMITIES: Bilateral AKA stump no redness or drainage - Labs CBC & Chem 7: 08/04/23 11:09 08/06/23 07:59 Labs: Abnormal Lab Results - Last 24 Hours (Table) 08/05/23 08/06/23 08/06/23 Range/Units 16:46 06:23 06:49 Potassium (3.5-5.1) mmol/L Carbon Dioxide (22-30) mmol/L BUN (9-20) mg/dL Creatinine (0.66-1.25) mg/dL POC Glucose (mg/dL) 120 H 53 L 116 H (70-110) mg/dL 08/06/23 08/06/23 08/06/23 Range/Units 07:59 11:23 11:50 Potassium 2.8 L (3.5-5.1) mmol/L Carbon Dioxide 35 H (22-30) mmol/L BUN 21 H (9-20) mg/dL Creatinine 0.37 L (0.66-1.25) mg/dL POC Glucose (mg/dL) 56 L 136 H (70-110) mg/dL Microbiology - Last 24 Hours (Table) 08/01/23 05:10 Blood Culture - Final Blood Assessment and Plan (1) Sacral decubitus ulcer, stage IV Current Visit: Yes Status: Acute Code(s): L89.154 - PRESSURE ULCER OF SACRAL REGION, STAGE 4 SNOMED Code(s): 14039759271477 (2) Sacral osteomyelitis Current Visit: No Status: Acute Code(s): M46.28 - OSTEOMYELITIS OF VERTEBRA, SACRAL AND SACROCOCCYGEAL REGION SNOMED Code(s): 252305048 (3) Positive blood culture Current Visit: Yes Status: Acute Code(s): R78.81 - BACTEREMIA SNOMED Code(s): 438047521 Plan: 1patient was in the hospital with sepsis in this patient who did have a fever tachycardia elevated white count source is infected sacral pressure ulcer likely stage IV with underlying osteomyelitis in this patient wound has been there for couple of months now and noncompliance with treatment in the outpatient setting 2-positive blood culture more likely related to his infected sacral pressure ulcer, blood culture has been repeated to document clearance of bacteremia and so far negative 3-The patient local culture currently growing E. coli and Proteus and beta- hemolytic Streptococcus 4-patient is status post diverting colostomy and surgical debridement of his large sacral pressure ulcer 5-patient did have a PICC line placement on 08/03/2023 6patient did have change in clinical condition with significant vomiting and has been vomiting transferred to the telemetry floor General surgery is following 7-patient to continue with the Zosyn and will monitor clinical course closely Dictation was produced using [employer] dictation software. please excuse any grammatical, word or spelling errors. Time with Patient: Less than 30
--- NOTE | 2023-08-06 14:00 | P.PN ---
Progress Note - Text Progress Note Date: 08/06/23 Chief Complaint: Sacral wound This is a 63-year-old patient, follows with Dr. Mendze. Chronic stable medical conditions include ADHD, herniated disc lower back, smoker. Sacral wounds. Left AKA. right above-knee amputation by Dr. Zee on April 2023 Recently presented, not being compliant. Smoking cigarettes. Recreational drugs. Patient has not followed up for his PICC line antibiotics last discharge and was discharged on oral Augmentin. Patient has seen Dr. Zee from vascular and wound care Dr. Bahena. Patient's son lives with him. Patient now presents with worsening sacral wound. Eating fair. Continues to smoke cigarettes. Does marijuana. Tired. Some wheezing shortness of breath. June: Patient seen by Dr. Zee. Sacral decubitus wound will be followed by Dr. Pabon's team. For possible diverting colostomy. Patient is on IV Zosyn. Eating well. Urine drug screen was positive for opiates, amphetamines, methamphetamines, marijuana. Home pain medications were resumed. July 1: Patient being scheduled for diverting colostomy on Tuesday with Dr. Pabon. And debridement of sacral ulcer on Tuesday. Continue antibiotics. Patient eating well. July 2: Laying in bed. Comfortable. Son and family visiting. Scheduled for surgery on Tuesday and Tuesday. Eating well. Antibiotics in place. July 3: Comfortable. Tolerating diet. Pending surgery tomorrow for diverting colostomy. Discussed with patient. July 31: Patient underwent diverting colostomy today. With sigmoid colectomy. Left-sided colostomy. Postprocedure tired. Laying in bed. Due for sacral wound debridement tomorrow. August 01: Patient underwent debridement of sacral decubitus ulcer by Dr. Pabon. Had a good supper. school business manager looking into discharge planning. August 02: Patient in bed. Son at the bedside. Spoke to the caser Vernon to discover that patient actually has insurance. He should build to qualify for rehab. Looking into the same. Antibiotics to continue. PICC line was placed by Dr. Schulz from vascular today. August 03: Saw the patient this morning. Vomited twice. A bit dark-colored. Had dark-colored liquid output in the colostomy bag. Did not eat anything this morning. Diet was scaled back. Abdominal x-ray showed diffuse distention of the stomach and the small bowel. Small bowel was dilated up to 4.5 cm. Later patient is moved to the [facility] floor for telemetry. NG tube was placed. Dr Pabon from surgery is following. July: 8: NG tube to suction remains in place. Significant dark-colored output. Some output through the colostomy bag. Getting IV fluids. Tired August 05: NG tube remains to suction. Dark output. Some output liquidy through the colostomy bag. Tired. IV fluids. Replace IV potassium. Active Medications Acetaminophen (Acetaminophen Tab 325 Mg Tab) 650 mg PO Q6HR PRN PRN Reason: Mild Pain or Fever > 100.5 Last Admin: 08/06/23 05:20 Dose: 650 mg Hydrocodone Bitart/Acetaminophen (Hydrocodone/Apap 10-325mg 1 Each Tab) 1 each PO QID [facility] Last Admin: 08/06/23 12:52 Dose: Not Given Calcium Carbonate/Glycine (Calcium Carbonate 500 Mg Chewable) 1,000 mg PO Q4HR PRN PRN Reason: Dyspepsia Dextrose/Water (Dextrose 50% Syringe 50 Ml) 25 ml IVP PER PROTOCOL PRN; Protocol PRN Reason: Hypoglycemia Last Admin: 08/06/23 11:31 Dose: 25 ml Dextrose/Water (Dextrose 50% Syringe 50 Ml) 50 ml IVP PER PROTOCOL PRN; Protocol PRN Reason: Hypoglycemia Diphenhydramine HCl (Diphenhydramine 50 Mg/Ml 1 Ml Vial) 25 mg IVP Q6HR PRN PRN Reason: Itching Famotidine (Famotidine 20 Mg Tab) 20 mg PO BID [facility] Last Admin: 08/06/23 09:05 Dose: 20 mg Hydromorphone HCl (Hydromorphone 1 Mg/Ml 1 Ml Syringe) 1 mg IVP Q3HR PRN PRN Reason: Breakthrough Pain Last Admin: 08/05/23 04:09 Dose: 1 mg Piperacillin Sod/Tazobactam (Sod 3.375 gm/ Sodium Chloride) 100 mls @ 25 mls/hr IVPB Q8H [facility]; Protocol Last Admin: 08/06/23 05:16 Dose: 25 mls/hr Lactated Ringer's (Lactated Ringers) 1,000 mls @ 125 mls/hr IV .Q8H [facility] Last Admin: 08/06/23 09:05 Dose: Not Given Ropivacaine 250 mg/Hydromorphone HCl 5 mg/ Sodium Chloride 250 mls @ 0 mls/hr EPIDURAL .Q0M [facility]; Protocol PRN Reason: Pain Potassium Chloride 20 meq/ IV (Solution) 100 mls @ 50 mls/hr IVPB ONCE ONE Stop: 08/06/23 14:59 Last Admin: 08/06/23 12:50 Dose: 50 mls/hr Potassium Chloride 20 meq/ IV (Solution) 100 mls @ 50 mls/hr IVPB ONCE ONE Stop: 08/06/23 16:59 Last Admin: 08/06/23 12:50 Dose: 50 mls/hr Insulin Aspart (Insulin Aspart (Novolog) 100 Unit/Ml Vial) 0 unit SQ [facility]; Protocol Last Admin: 08/06/23 12:56 Dose: Not Given Insulin Detemir (Insulin Detemir (Levemir) 100 Unit/Ml Syr) 10 unit SQ [facility] Last Admin: 08/05/23 21:22 Dose: 10 unit Lactulose (Lactulose 20 Gm/30 Ml Cup) 20 gm PO DAILY PRN PRN Reason: Constipation Lidocaine HCl (Lidocaine 1% (10mg/Ml) For Iv Start) 0.1 ml INTRADERMA PER PROTOCOL PRN PRN Reason: IV Start Lorazepam (Lorazepam 0.5 Mg Tab) 0.5 mg PO Q6HR PRN PRN Reason: Anxiety Methocarbamol (Methocarbamol 500 Mg Tab) 500 mg PO QID [facility] Last Admin: 08/06/23 12:57 Dose: Not Given Metoclopramide HCl (Metoclopramide 5 Mg/Ml 2 Ml Vial) 10 mg IVP Q6HR [facility] Last Admin: 08/06/23 11:30 Dose: 10 mg Naloxone HCl (Naloxone 0.4 Mg/Ml 1 Ml Vial) 0.2 mg IV Q2M PRN PRN Reason: Opioid Reversal Ondansetron HCl (Ondansetron 4 Mg/2 Ml Vial) 4 mg IVP Q6HR PRN PRN Reason: Nausea And Vomiting Last Admin: 08/06/23 09:16 Dose: 4 mg Temazepam (Temazepam 15 Mg Cap) 15 mg PO HS PRN PRN Reason: Insomnia Last Admin: 08/03/23 21:17 Dose: 15 mg Past medical history to include: Diabetes, possible ADHD, chronic low back pain, herniated disc, atrial fibrillation. COPD. left above-knee amputation. Right below-knee amputation. Sacral wound Social history: Son lives with the patient. 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 Smokes about a pack a day, now down to a few cigarettes a day. Alcohol occasionally. Marijuana Physical examination: VITAL SIGNS: 98.1, 108, 18, 144 x 73, 92% room air GENERAL: Laying in bed, tired EYES: Pupils equal. Conjunctiva normal. HEENT: External appearance of nose and ears normal, NG tube to suction NECK: JVD not raised; masses not palpable. HEART: First and second heart sounds are normal; no edema. LUNGS: Respiratory rate increased l; decreased breath sounds. No wheezing ABDOMEN: Soft, left-sided colostomy-full liquid dark output. Dressing over midline incision PSYCH: Tired MUSCULOSKELETAL: Left and right above-knee amputation, incisions with rosetta healing well. Sacral wound. NEUROLOGICAL: Moving all 4 limbs. INVESTIGATIONS, reviewed in the clinical context: August 05: Potassium 2.8 creatinine 0.37 August 03: White count 19.6 hemoglobin 10.8 potassium 3.8 creatinine 0.39 abdominal x-ray film personally reviewed by me-dilated stomach and small bowel July 31: White count 8.1 hemoglobin 10.1 platelets 515 potassium 4.9 creatinine 0.47 Blood culture [July 26] Clostridium sporogenes Wound culture: E. coli/Proteus mirabilis/beta-hemolytic Streptococcus. July 29: White count 10.0 hemoglobin 8.9 platelets 442 potassium 4.2 creatinine 0.3 July 28: White count 10.5 hemoglobin 8.2 platelets are 82 potassium 3.6 creatinine 0.4 Urine drug screen: Positive for opiates, amphetamines, meth amphetamines, marijuana July 26: White count 7.8 hemoglobin 10.3 platelets 522 sodium 125 potassium 4.7 BUN 13 creatinine 0.31 CRP 20.8 albumin 2.6 Assessment and plan: -Acute metabolic encephalopathy from recreational drugs. Patient last admission all the same presentation.: Resolved Urine drug screen positive for methamphetamines, amphetamines, opiates, marijuana -Acute small bowel obstruction with distended stomach with nausea vomiting. Patient moved to the telemetry for closer nursing monitoring. Surgery following: Slow to respond NPO. NG tube to suction. -Severe hypokalemia from NG tube aspirate Replace -Right above-knee amputation by Dr. Zee on May 26. Cultures grew multiple organisms. discharged on June 03/2024 with IV ceftriaxone with a PICC line for 6 weeks. Patient never showed up for his IV antibiotics. Was subsequently discharged with Augmentin on the last visit -Sacral decubitus ulcer. With acute osteomyelitis. Patient has been noncompliant with his antibiotics Followed by Dr. Bahena from wound care center. Dr Pabon schedule -underwent debridement on August 01 IV Zosyn with ID Diverting colostomy-y Dr. Pabon on July 31 -Blood cultures positive for Clostridium Sporogenes, on July 26. Repeat blood cultures negative -Paroxysmal atrial fibrillation: sinus rhythm Amiodarone. Lopressor. -Diabetes mellitus type 2, chronically on insulin Cut back to Lantus to 10 units at night.. -COPD in a current smoker Bronchodilators as needed -Chronic nicotine dependence, cigarette smoker Nicotine patch -Chronic medical debility. Non-ambulatory -Full code NG tube to suction. NPO. IV fluids. Replace potassium. Prognosis guarded. Past Medical History Past Medical History: Diabetes Mellitus Additional Past Medical History / Comment(s): pressure ulcers[Buttock,simone heals ,rt lateral foot]. BLOOD "ECOLI" INFECTION. History of Any Multi-Drug Resistant Organisms: None Reported Past Surgical History: Orthopedic Surgery Additional Past Surgical History / Comment(s): back pain son states pt recently "slipped a disc" taking gabapentin. Left leg above the knee amputation. MICHELLE PICC LINE. Past Anesthesia/Blood Transfusion Reactions: No Reported Reaction Past Psychological History: No Psychological Hx Reported Smoking Status: Current every day smoker Past Alcohol Use History: Rare Past Drug Use History: None Reported
[2023-08-06 16:08] LABS: Glucose,Whole Blood 48 mg/dL (70-110)
[2023-08-06 16:25] LABS: Glucose,Whole Blood 186 mg/dL (70-110)
[2023-08-06] MEDS: POTASSIUM CHLORIDE 20 MEQ in WATER FOR INJECTION 1 100ML.BAG IVPB STA (17:28)
[2023-08-06 19:56] LABS: Glucose,Whole Blood 86 mg/dL (70-110)
--- NOTE | 2023-08-06 22:04 | P.PN ---
Subjective Progress Note Date: 08/06/23 Principal diagnosis: Patient seen and evaluated at bedside. no acute events overnight. Objective - Vital Signs Vital signs: Vital Signs Temp 100 F H 08/06/23 20:45 Pulse 102 H 08/06/23 20:49 Resp 18 08/06/23 20:45 BP 132/78 08/06/23 20:45 Pulse Ox 92 L 08/06/23 20:45 FiO2 Intake & Output 08/06/23 08/06/23 08/07/23 06:59 18:59 07:59 Intake Total 10 Output Total 550 1175 Balance -540 -1175 Intake: IV 10 Invasive Line 5 10 Output: Gastric Drainage 900 Urine 550 275 Other: Voiding Method Indwelling Catheter Indwelling Catheter Indwelling Catheter GENERAL DESCRIPTION: Middle-age male lying in bed in no distress RESPIRATORY SYSTEM: Unlabored breathing , decreased breath sounds at bases HEART: S1 S2 regular rate and rhythm , ABDOMEN: Soft , no tenderness EXTREMITIES: Bilateral AKA stump no redness or drainage - Labs CBC & Chem 7: 08/04/23 11:09 08/06/23 07:59 Labs: Abnormal Lab Results - Last 24 Hours (Table) 08/06/23 08/06/23 08/06/23 Range/Units 06:23 06:49 07:59 Potassium 2.8 L (3.5-5.1) mmol/L Carbon Dioxide 35 H (22-30) mmol/L BUN 21 H (9-20) mg/dL Creatinine 0.37 L (0.66-1.25) mg/dL POC Glucose (mg/dL) 53 L 116 H (70-110) mg/dL 08/06/23 08/06/23 08/06/23 Range/Units 11:23 11:50 16:06 Potassium (3.5-5.1) mmol/L Carbon Dioxide (22-30) mmol/L BUN (9-20) mg/dL Creatinine (0.66-1.25) mg/dL POC Glucose (mg/dL) 56 L 136 H 48 L (70-110) mg/dL 08/06/23 Range/Units 16:23 Potassium (3.5-5.1) mmol/L Carbon Dioxide (22-30) mmol/L BUN (9-20) mg/dL Creatinine (0.66-1.25) mg/dL POC Glucose (mg/dL) 186 H (70-110) mg/dL Microbiology - Last 24 Hours (Table) 08/01/23 05:10 Blood Culture - Final Blood Assessment and Plan Assessment: POD #5 diverting colostomy post op ileus -continue to monitor for bowel function -trend labs -monitor abdominal exam Time with Patient: Greater than 30
[2023-08-06 23:37] LABS: Glucose,Whole Blood 89 mg/dL (70-110)
[2023-08-07 06:09] LABS: Glucose,Whole Blood 91 mg/dL (70-110)
[2023-08-07 09:39] LABS: Basophils % (A) 0 %; Eosinophils # (A) 0.5 k/uL (0-0.7); Eosinophils % (A) 2 %; HCT 27.8 % (39.0-53.0); Hypochromasia Marked; Lymphocytes # (A) 0.9 k/uL (1.0-4.8); Lymphocytes % (A) 5 %; MCH 26.4 pg (25.0-35.0); MCHC 31.5 g/dL (31.0-37.0); MCV 83.8 fL (80.0-100.0); Mean Platelet Volume 7.1; Monocytes # (A) 0.5 k/uL (0-1.0); Monocytes % (A) 2 %; Neutrophils # (A) 18.3 k/uL (1.3-7.7); Neutrophils % (A) 90 %; Platelet Count 503 k/uL (150-450); RBC 3.32 m/uL (4.30-5.90); RDW 15.9 % (11.5-15.5); WBC 20.4 k/uL (3.8-10.6)
[2023-08-07 09:41] LABS: HGB 8.7 gm/dL (13.0-17.5)
[2023-08-07 09:53] LABS: ALT 8 U/L (4-49); AST 14 U/L (17-59); African American GFR (CKD) >90 (>60 ml/min/1.73 sqM); Albumin 2.4 g/dL (3.5-5.0); Alkaline Phosphatase 67 U/L (38-126); Anion Gap 4 mmol/L; Blood Urea Nitrogen 16 mg/dL (9-20); Calcium 8.2 mg/dL (8.4-10.2); Carbon Dioxide 30 mmol/L (22-30); Chloride 103 mmol/L (98-107); Glucose 85 mg/dL (74-99); Non-African American GFR(CKD) >90 (>60 ml/min/1.73 sqM); Sodium 137 mmol/L (137-145); Total Bilirubin 0.6 mg/dL (0.2-1.3); Total Protein 5.6 g/dL (6.3-8.2)
[2023-08-07 10:11] LABS: C Reactive Protein 22.2 mg/dL (<1.0)
[2023-08-07 10:15] LABS: Potassium 3.7 mmol/L (3.5-5.1)
[2023-08-07 11:40] LABS: Glucose,Whole Blood 82 mg/dL (70-110)
--- NOTE | 2023-08-07 13:29 | P.PN ---
Subjective Progress Note Date: 08/07/23 Principal diagnosis: Decubitus ulcers Patient says he feels better today. No bloating. Ostomy functioning. Sacral decubitus wound stable at this time. White blood cell count remains elevated. Objective - Vital Signs Vital signs: Vital Signs Temp 98.8 F 08/07/23 08:00 Pulse 98 08/07/23 12:43 Resp 18 08/07/23 08:00 BP 135/70 08/07/23 08:00 Pulse Ox 92 L 08/07/23 08:00 FiO2 Intake & Output 08/06/23 08/07/23 08/07/23 17:59 06:59 18:59 Output Total Balance Output: Gastric Drainage Urine Other: Voiding Method Indwelling Catheter - Exam Abdomen: Soft, nondistended, ostomy functioning, dressing in place - Labs CBC & Chem 7: 08/07/23 09:09 08/07/23 09:09 Labs: Abnormal Lab Results - Last 24 Hours (Table) 08/06/23 08/06/23 08/07/23 Range/Units 16:06 16:23 09:09 WBC 20.4 H (3.8-10.6) k/uL RBC 3.32 L (4.30-5.90) m/uL Hgb 8.7 L D (13.0-17.5) gm/dL Hct 27.8 L (39.0-53.0) % RDW 15.9 H (11.5-15.5) % Plt Count 503 H (150-450) k/uL Neutrophils # 18.3 H (1.3-7.7) k/uL Lymphocytes # 0.9 L (1.0-4.8) k/uL Creatinine (0.66-1.25) mg/dL POC Glucose (mg/dL) 48 L 186 H (70-110) mg/dL Calcium (8.4-10.2) mg/dL AST (17-59) U/L C-Reactive Protein (<1.0) mg/dL Total Protein (6.3-8.2) g/dL Albumin (3.5-5.0) g/dL 08/07/23 Range/Units 09:09 WBC (3.8-10.6) k/uL RBC (4.30-5.90) m/uL Hgb (13.0-17.5) gm/dL Hct (39.0-53.0) % RDW (11.5-15.5) % Plt Count (150-450) k/uL Neutrophils # (1.3-7.7) k/uL Lymphocytes # (1.0-4.8) k/uL Creatinine 0.48 L (0.66-1.25) mg/dL POC Glucose (mg/dL) (70-110) mg/dL Calcium 8.2 L (8.4-10.2) mg/dL AST 14 L (17-59) U/L C-Reactive Protein 22.2 H (<1.0) mg/dL Total Protein 5.6 L (6.3-8.2) g/dL Albumin 2.4 L (3.5-5.0) g/dL Microbiology - Last 24 Hours (Table) 08/01/23 05:10 Blood Culture - Final Blood Assessment and Plan (1) Decubitus ulcer of buttock, stage 4 Narrative/Plan: Patient with resolving ileus. White blood cell count remains elevated. Continue local wound care to the sacral decubitus ulcer site. Keep nasogastric tube today likely discharge tomorrow. Continue antibiotics. Current Visit: Yes Status: Acute Code(s): L89.304 - PRESSURE ULCER OF UNSPECIFIED BUTTOCK, STAGE 4 SNOMED Code(s): 00465026368276927
--- NOTE | 2023-08-07 14:42 | P.PN ---
Subjective Progress Note Date: 08/07/23 Principal diagnosis: Reason for follow-up is infected sacral pressure ulcer Patient is a 63-year-old male with a past medical history significant for diabetes mellitus in this patient who did have a history of PAD s/p bilateral [id number] amputation and did have a stage IV sacral pressure ulcer that has been there for a few months, noncompliance with the previous IV and local care treatment presented to hospital with worsening wound and fever, Patient is status post sigmoid colectomy with end colostomy completed on 08/01/2023 and the patient is status post excision debridement of his sacral pressure ulcer by general surgery completed on 08/02/2023 On today's evaluation that is 08/07/2023,the patient denies any fever or any chills, patient is breathing comfortably on room air, the patient denies chest pain shortness of breath and no significant cough, patient abdominal pain has decreased intensity no further vomiting still have the NG patient is asking for popsicle did have output in the colostomy. Patient white count is still elevated 20.4 creatinine 0.48 Objective - Vital Signs Vital signs: Vital Signs Temp 98.8 F 08/07/23 08:00 Pulse 98 08/07/23 12:43 Resp 18 08/07/23 08:00 BP 135/70 08/07/23 08:00 Pulse Ox 92 L 08/07/23 08:00 FiO2 Intake & Output 08/06/23 08/07/23 08/07/23 17:59 06:59 18:59 Output Total Balance Output: Gastric Drainage Urine Other: Voiding Method Indwelling Catheter - Exam GENERAL DESCRIPTION: Middle-age male lying in bed in no distress RESPIRATORY SYSTEM: Unlabored breathing , decreased breath sounds at bases HEART: S1 S2 regular rate and rhythm , ABDOMEN: Soft , no tenderness EXTREMITIES: Bilateral AKA stump no redness or drainage - Labs CBC & Chem 7: 08/07/23 09:09 08/07/23 09:09 Labs: Abnormal Lab Results - Last 24 Hours (Table) 08/06/23 08/06/23 08/07/23 Range/Units 16:06 16:23 09:09 WBC 20.4 H (3.8-10.6) k/uL RBC 3.32 L (4.30-5.90) m/uL Hgb 8.7 L D (13.0-17.5) gm/dL Hct 27.8 L (39.0-53.0) % RDW 15.9 H (11.5-15.5) % Plt Count 503 H (150-450) k/uL Neutrophils # 18.3 H (1.3-7.7) k/uL Lymphocytes # 0.9 L (1.0-4.8) k/uL Creatinine (0.66-1.25) mg/dL POC Glucose (mg/dL) 48 L 186 H (70-110) mg/dL Calcium (8.4-10.2) mg/dL AST (17-59) U/L C-Reactive Protein (<1.0) mg/dL Total Protein (6.3-8.2) g/dL Albumin (3.5-5.0) g/dL 08/07/23 Range/Units 09:09 WBC (3.8-10.6) k/uL RBC (4.30-5.90) m/uL Hgb (13.0-17.5) gm/dL Hct (39.0-53.0) % RDW (11.5-15.5) % Plt Count (150-450) k/uL Neutrophils # (1.3-7.7) k/uL Lymphocytes # (1.0-4.8) k/uL Creatinine 0.48 L (0.66-1.25) mg/dL POC Glucose (mg/dL) (70-110) mg/dL Calcium 8.2 L (8.4-10.2) mg/dL AST 14 L (17-59) U/L C-Reactive Protein 22.2 H (<1.0) mg/dL Total Protein 5.6 L (6.3-8.2) g/dL Albumin 2.4 L (3.5-5.0) g/dL Microbiology - Last 24 Hours (Table) 08/01/23 05:10 Blood Culture - Final Blood Assessment and Plan (1) Sacral decubitus ulcer, stage IV Current Visit: Yes Status: Acute Code(s): L89.154 - PRESSURE ULCER OF SACRAL REGION, STAGE 4 SNOMED Code(s): 90838763025636 (2) Sacral osteomyelitis Current Visit: No Status: Acute Code(s): M46.28 - OSTEOMYELITIS OF VERTEBRA, SACRAL AND SACROCOCCYGEAL REGION SNOMED Code(s): 358207311 (3) Positive blood culture Current Visit: Yes Status: Acute Code(s): R78.81 - BACTEREMIA SNOMED Code(s): 654556563 Plan: 1patient was in the hospital with sepsis in this patient who did have a fever tachycardia elevated white count source is infected sacral pressure ulcer likely stage IV with underlying osteomyelitis in this patient wound has been there for couple of months now and noncompliance with treatment in the outpatient setting 2-positive blood culture more likely related to his infected sacral pressure ulcer, blood culture has been repeated to document clearance of bacteremia and repeat blood culture negative 3-The patient local culture currently growing E. coli and Proteus and beta- hemolytic Streptococcus 4-patient is status post diverting colostomy and surgical debridement of his large sacral pressure ulcer 5-patient did have a PICC line placement on 08/03/2023 6patient is afebrile however did have elevated white count slightly concerning we will adjust antibiotic to Unasyn on the basis of sensitivity and watch his clinical course closely Dictation was produced using [employer] dictation software. please excuse any grammatical, word or spelling errors. Time with Patient: Less than 30
[2023-08-07] MEDS: AMPICILLIN-SULBACTAM 3 GM in SODIUM CHLORIDE 0.9% 100 ML IVPB SCH (15:56)
--- NOTE | 2023-08-07 15:58 | P.PN ---
Progress Note - Text Progress Note Date: 08/07/23 Chief Complaint: Sacral wound This is a 63-year-old patient, follows with Dr. Mendez. Chronic stable medical conditions include ADHD, herniated disc lower back, smoker. Sacral wounds. Left AKA. right above-knee amputation by Dr. Zee on April 2023 Recently presented, not being compliant. Smoking cigarettes. Recreational drugs. Patient has not followed up for his PICC line antibiotics last discharge and was discharged on oral Augmentin. Patient has seen Dr. Zee from vascular and wound care Dr. Bahena. Patient's son lives with him. Patient now presents with worsening sacral wound. Eating fair. Continues to smoke cigarettes. Does marijuana. Tired. Some wheezing shortness of breath. June: Patient seen by Dr. Zee. Sacral decubitus wound will be followed by Dr. Pabon's team. For possible diverting colostomy. Patient is on IV Zosyn. Eating well. Urine drug screen was positive for opiates, amphetamines, methamphetamines, marijuana. Home pain medications were resumed. July 1: Patient being scheduled for diverting colostomy on Tuesday with Dr. Pabon. And debridement of sacral ulcer on Tuesday. Continue antibiotics. Patient eating well. July 2: Laying in bed. Comfortable. Son and family visiting. Scheduled for surgery on Tuesday and Tuesday. Eating well. Antibiotics in place. July 3: Comfortable. Tolerating diet. Pending surgery tomorrow for diverting colostomy. Discussed with patient. July 31: Patient underwent diverting colostomy today. With sigmoid colectomy. Left-sided colostomy. Postprocedure tired. Laying in bed. Due for sacral wound debridement tomorrow. August 01: Patient underwent debridement of sacral decubitus ulcer by Dr. Pabon. Had a good supper. logistics planning manager looking into discharge planning. August 02: Patient in bed. Son at the bedside. Spoke to the manager case management [place] to discover that patient actually has insurance. He should build to qualify for rehab. Looking into the same. Antibiotics to continue. PICC line was placed by Dr. Schulz from vascular today. August 03: Saw the patient this morning. Vomited twice. A bit dark-colored. Had dark-colored liquid output in the colostomy bag. Did not eat anything this morning. Diet was scaled back. Abdominal x-ray showed diffuse distention of the stomach and the small bowel. Small bowel was dilated up to 4.5 cm. Later patient is moved to the [facility] floor for telemetry. NG tube was placed. Dr Pabon from surgery is following. July: 8: NG tube to suction remains in place. Significant dark-colored output. Some output through the colostomy bag. Getting IV fluids. Tired August 05: NG tube remains to suction. Dark output. Some output liquidy through the colostomy bag. Tired. IV fluids. Replace IV potassium. August 06: NG tube remains in place. Output present. Some thickening of the output through the colostomy bag. Tired. Patient being visited by his daughter who lives down the road. She is offering to take care of the patient when he gets discharged. Active Medications Acetaminophen (Acetaminophen Tab 325 Mg Tab) 650 mg PO Q6HR PRN PRN Reason: Mild Pain or Fever > 100.5 Last Admin: 08/06/23 05:20 Dose: 650 mg Hydrocodone Bitart/Acetaminophen (Hydrocodone/Apap 10-325mg 1 Each Tab) 1 each PO QID [facility] Last Admin: 08/07/23 12:07 Dose: Not Given Calcium Carbonate/Glycine (Calcium Carbonate 500 Mg Chewable) 1,000 mg PO Q4HR PRN PRN Reason: Dyspepsia Dextrose/Water (Dextrose 50% Syringe 50 Ml) 25 ml IVP PER PROTOCOL PRN; Protocol PRN Reason: Hypoglycemia Last Admin: 08/06/23 11:31 Dose: 25 ml Dextrose/Water (Dextrose 50% Syringe 50 Ml) 50 ml IVP PER PROTOCOL PRN; Protocol PRN Reason: Hypoglycemia Diphenhydramine HCl (Diphenhydramine 50 Mg/Ml 1 Ml Vial) 25 mg IVP Q6HR PRN PRN Reason: Itching Famotidine (Famotidine 20 Mg Tab) 20 mg PO BID [facility] Last Admin: 08/07/23 08:27 Dose: 20 mg Hydromorphone HCl (Hydromorphone 1 Mg/Ml 1 Ml Syringe) 1 mg IVP Q3HR PRN PRN Reason: Breakthrough Pain Last Admin: 08/07/23 12:06 Dose: 1 mg Lactated Ringer's (Lactated Ringers) 1,000 mls @ 125 mls/hr IV .Q8H [facility] Last Admin: 08/07/23 15:08 Dose: Not Given Ropivacaine 250 mg/Hydromorphone HCl 5 mg/ Sodium Chloride 250 mls @ 0 mls/hr EPIDURAL .Q0M PRN; Protocol PRN Reason: Pain Ampicillin Sodium/Sulbactam (Sodium 3 gm/ Sodium Chloride) 100 mls @ 200 mls/hr IVPB Q6HR [facility]; Protocol Insulin Aspart (Insulin Aspart (Novolog) 100 Unit/Ml Vial) 0 unit SQ ACHS [facility]; Protocol Last Admin: 08/07/23 15:08 Dose: Not Given Insulin Detemir (Insulin Detemir (Levemir) 100 Unit/Ml Syr) 10 unit SQ HS [facility] Last Admin: 08/06/23 20:28 Dose: Not Given Lactulose (Lactulose 20 Gm/30 Ml Cup) 20 gm PO DAILY PRN PRN Reason: Constipation Lidocaine HCl (Lidocaine 1% (10mg/Ml) For Iv Start) 0.1 ml INTRADERMA PER PROTOCOL PRN PRN Reason: IV Start Lorazepam (Lorazepam 0.5 Mg Tab) 0.5 mg PO Q6HR PRN PRN Reason: Anxiety Methocarbamol (Methocarbamol 500 Mg Tab) 500 mg PO QID [facility] Last Admin: 08/07/23 12:07 Dose: Not Given Metoclopramide HCl (Metoclopramide 5 Mg/Ml 2 Ml Vial) 10 mg IVP Q6HR [facility] Last Admin: 08/07/23 12:07 Dose: 10 mg Naloxone HCl (Naloxone 0.4 Mg/Ml 1 Ml Vial) 0.2 mg IV Q2M PRN PRN Reason: Opioid Reversal Ondansetron HCl (Ondansetron 4 Mg/2 Ml Vial) 4 mg IVP Q6HR PRN PRN Reason: Nausea And Vomiting Last Admin: 08/06/23 09:16 Dose: 4 mg Temazepam (Temazepam 15 Mg Cap) 15 mg PO HS PRN PRN Reason: Insomnia Last Admin: 08/03/23 21:17 Dose: 15 mg Past medical history to include: Diabetes, possible ADHD, chronic low back pain, herniated disc, atrial fibrillation. COPD. left above-knee amputation. Right below-knee amputation. Sacral wound Social history: Son lives with the patient. 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 Smokes about a pack a day, now down to a few cigarettes a day. Alcohol occasionally. Marijuana Physical examination: VITAL SIGNS: 98.8, 98, 18, 129 x 72, 93% room air GENERAL: Laying in bed, comfortable EYES: Pupils equal. Conjunctiva normal. HEENT: External appearance of nose and ears normal, NG tube to suction NECK: JVD not raised; masses not palpable. HEART: First and second heart sounds are normal; no edema. LUNGS: Respiratory rate increased l; decreased breath sounds. No wheezing ABDOMEN: Soft, left-sided colostomy-thicker stool. Dressing over midline incision PSYCH: Alert and oriented x 3, mood affect normal MUSCULOSKELETAL: Left and right above-knee amputation, incisions with rosetta healing well. Sacral wound. NEUROLOGICAL: Moving all 4 limbs. INVESTIGATIONS, reviewed in the clinical context: August 06: White count 20.4 hemoglobin 8.7 platelets 503 potassium 3.7 creatinine 0.48 August 05: Potassium 2.8 creatinine 0.37 August 03: White count 19.6 hemoglobin 10.8 potassium 3.8 creatinine 0.39 abdominal x-ray film personally reviewed by me-dilated stomach and small bowel July 31: White count 8.1 hemoglobin 10.1 platelets 515 potassium 4.9 creatinine 0.47 Blood culture [July 26] Clostridium sporogenes Wound culture: E. coli/Proteus mirabilis/beta-hemolytic Streptococcus. July 29: White count 10.0 hemoglobin 8.9 platelets 442 potassium 4.2 creatinine 0.3 July 28: White count 10.5 hemoglobin 8.2 platelets are 82 potassium 3.6 creatin ine 0.4 Urine drug screen: Positive for opiates, amphetamines, meth amphetamines, marijuana July 26: White count 7.8 hemoglobin 10.3 platelets 522 sodium 125 potassium 4.7 BUN 13 creatinine 0.31 CRP 20.8 albumin 2.6 Assessment and plan: -Acute metabolic encephalopathy from recreational drugs. Patient last admission all the same presentation.: Resolved Urine drug screen positive for methamphetamines, amphetamines, opiates, marijuana -Acute small bowel obstruction with distended stomach with nausea vomiting. Patient moved to the telemetry for closer nursing monitoring. Surgery follo wing: Improving NPO. NG tube to suction. -Severe hypokalemia from NG tube aspirate Replace -Right above-knee amputation by Dr. Zee on May 26. Cultures grew multiple organisms. discharged on June 03/2024 with IV ceftriaxone with a PICC line for 6 weeks. Patient never showed up for his IV antibiotics. Was subsequently discharged with Augmentin on the last visit -Sacral decubitus ulcer. With acute osteomyelitis. Patient has been noncompliant with his antibiotics Followed by Dr. Bahena from wound care center. Dr Pabon schedule -underwent debridement on August 01 IV Zosyn with ID Diverting colostomy-y Dr. Pabon on July 31 -Blood cultures positive for Clostridium Sporogenes, on July 26. Repeat blood cultures negative -Paroxysmal atrial fibrillation: sinus rhythm Amiodarone. Lopressor. -Diabetes mellitus type 2, chronically on insulin Cut back to Lantus to 10 units at night.. -COPD in a current smoker Bronchodilators as needed -Chronic nicotine dependence, cigarette smoker Nicotine patch -Chronic medical debility. Non-ambulatory -Full code NG tube to suction. NPO. IV fluids. Discussed with patient daughter at the bedside. Past Medical History Past Medical History: Diabetes Mellitus Additional Past Medical History / Comment(s): pressure ulcers[Buttock,simone heals ,rt lateral foot]. BLOOD "ECOLI" INFECTION. History of Any Multi-Drug Resistant Organisms: None Reported Past Surgical History: Orthopedic Surgery Additional Past Surgical History / Comment(s): back pain son states pt recently "slipped a disc" taking gabapentin. Left leg above the knee amputation. MICHELLE PICC LINE. Past Anesthesia/Blood Transfusion Reactions: No Reported Reaction Past Psychological History: No Psychological Hx Reported Smoking Status: Current every day smoker Past Alcohol Use History: Rare Past Drug Use History: None Reported
[2023-08-07 16:49] LABS: Glucose,Whole Blood 83 mg/dL (70-110)
[2023-08-07 20:28] LABS: Glucose,Whole Blood 85 mg/dL (70-110)
[2023-08-08 06:30] LABS: Glucose,Whole Blood 90 mg/dL (70-110)
[2023-08-08 08:00] LABS: Basophils # (A) 0.1 k/uL (0-0.2); Basophils % (A) 1 %; Eosinophils # (A) 0.6 k/uL (0-0.7); Eosinophils % (A) 4 %; HCT 26.4 % (39.0-53.0); Hypochromasia Moderate; Lymphocytes # (A) 1.2 k/uL (1.0-4.8); Lymphocytes % (A) 8 %; MCH 25.2 pg (25.0-35.0); MCHC 30.2 g/dL (31.0-37.0); MCV 83.2 fL (80.0-100.0); Monocytes # (A) 0.5 k/uL (0-1.0); Monocytes % (A) 3 %; Neutrophils # (A) 11.5 k/uL (1.3-7.7); Neutrophils % (A) 83 %; Platelet Count 461 k/uL (150-450); RBC 3.17 m/uL (4.30-5.90); RDW 15.9 % (11.5-15.5); WBC 13.9 k/uL (3.8-10.6)
[2023-08-08 08:14] LABS: ALT 7 U/L (4-49); AST 13 U/L (17-59); African American GFR (CKD) >90 (>60 ml/min/1.73 sqM); Alkaline Phosphatase 60 U/L (38-126); Anion Gap 5 mmol/L; Blood Urea Nitrogen 10 mg/dL (9-20); Calcium 7.5 mg/dL (8.4-10.2); Carbon Dioxide 27 mmol/L (22-30); Chloride 103 mmol/L (98-107); Glucose 83 mg/dL (74-99); Non-African American GFR(CKD) >90 (>60 ml/min/1.73 sqM); Potassium 3.4 mmol/L (3.5-5.1); Sodium 135 mmol/L (137-145); Total Bilirubin 0.5 mg/dL (0.2-1.3); Total Protein 4.9 g/dL (6.3-8.2)
[2023-08-08 10:44] LABS: C Reactive Protein 23.7 mg/dL (<1.0)
[2023-08-08 12:16] LABS: Glucose,Whole Blood 79 mg/dL (70-110)
--- NOTE | 2023-08-08 13:21 | P.PN ---
Subjective Progress Note Date: 08/08/23 CHIEF COMPLAINT: Sacral decubitus ulcers HISTORY OF PRESENT ILLNESS: Patient postop day #7 status post diverting colostomy. Patient postop day #6 status post debridement of decubitus ulcer. Patient's ostomy is functioning. He had 200 mL output through the NG tube. Afebrile white count is decreased from 20-13. Potassium 3.4 he reports he is feeling better today. PHYSICAL EXAM: VITAL SIGNS: Reviewed. GENERAL: Well-developed in no acute distress. ABDOMEN: Nondistended. Incisional dressing clean dry and intact. Ostomy with stool present. Stoma unable to be visualized NEUROLOGIC: Alert and oriented. Cranial nerves II through XII grossly intact. ASSESSMENT: 1. Stage IV sacral decubitus ulcers 2. Sepsis 3. Hyponatremia improving 4. Diabetes mellitus 5. Medical noncompliance 6. Ileus improving 7. Hypokalemia PLAN: -Continue NG tube for decompression -keep patient NPO -Continue reglan -Continue IV fluids -Continue pain management -Antibiotics per ID service -Local wound care per ID service -Repeat CBC and BMP in a.m. -Replace potassium Physician Barrel Rifler note has been reviewed by physician. Signing provider agrees with the documented findings, assessment, and plan of care. Objective - Vital Signs Vital signs: Vital Signs Temp 98.2 F 08/08/23 11:48 Pulse 82 08/08/23 11:48 Resp 20 08/08/23 11:48 BP 152/75 08/08/23 11:48 Pulse Ox 94 L 08/08/23 11:48 FiO2 21 08/08/23 08:45 Intake & Output 08/07/23 08/08/23 08/08/23 18:59 06:59 18:59 Intake Total 920 Output Total 575 800 Balance -575 120 Intake: Intake, IV Titration 800 Amount Ampicillin-Sulbactam 3 gm 100 In Sodium Chloride 0.9% 100 ml @ 200 mls/hr IVPB Q6HR [facility] Rx#:[id number] Lactated Ringers 1,000 ml 700 @ 0 mls/hr IV .[facility] Rx#:[id number] Oral 120 Output: Gastric Drainage 200 Urine 525 550 Stool 50 50 Other: Voiding Method Indwelling Catheter Indwelling Catheter Indwelling Catheter - Labs CBC & Chem 7: 08/08/23 07:36 08/08/23 07:36 Labs: Abnormal Lab Results - Last 24 Hours (Table) 08/08/23 08/08/23 Range/Units 07:36 07:36 WBC 13.9 H (3.8-10.6) k/uL RBC 3.17 L (4.30-5.90) m/uL Hgb 8.0 L (13.0-17.5) gm/dL Hct 26.4 L (39.0-53.0) % MCHC 30.2 L (31.0-37.0) g/dL RDW 15.9 H (11.5-15.5) % Plt Count 461 H (150-450) k/uL Neutrophils # 11.5 H (1.3-7.7) k/uL Sodium 135 L (137-145) mmol/L Potassium 3.4 L (3.5-5.1) mmol/L Creatinine 0.32 L (0.66-1.25) mg/dL Calcium 7.5 L (8.4-10.2) mg/dL AST 13 L (17-59) U/L C-Reactive Protein 23.7 H (<1.0) mg/dL Total Protein 4.9 L (6.3-8.2) g/dL Albumin 2.0 L (3.5-5.0) g/dL
[2023-08-08] MEDS: POTASSIUM CHLORIDE ER 20 MEQ TAB.ER PO STA (15:27)
[2023-08-08 16:45] LABS: Glucose,Whole Blood 160 mg/dL (70-110)
--- NOTE | 2023-08-08 17:38 | P.PN ---
Progress Note - Text Progress Note Date: 08/08/23 Chief Complaint: Sacral wound This is a 63-year-old patient, follows with Dr. Mendez. Chronic stable medical conditions include ADHD, herniated disc lower back, smoker. Sacral wounds. Left AKA. right above-knee amputation by Dr. Zee on April 2023 Recently presented, not being compliant. Smoking cigarettes. Recreational drugs. Patient has not followed up for his PICC line antibiotics last discharge and was discharged on oral Augmentin. Patient has seen Dr. Zee from vascular and wound care Dr. Bahena. Patient's son lives with him. Patient now presents with worsening sacral wound. Eating fair. Continues to smoke cigarettes. Does marijuana. Tired. Some wheezing shortness of breath. June: Patient seen by Dr. Zee. Sacral decubitus wound will be followed by Dr. Pabon's team. For possible diverting colostomy. Patient is on IV Zosyn. Eating well. Urine drug screen was positive for opiates, amphetamines, methamphetamines, marijuana. Home pain medications were resumed. July 1: Patient being scheduled for diverting colostomy on Tuesday with Dr. Pabon. And debridement of sacral ulcer on Tuesday. Continue antibiotics. Patient eating well. July 2: Laying in bed. Comfortable. Son and family visiting. Scheduled for surgery on Tuesday and Tuesday. Eating well. Antibiotics in place. July 3: Comfortable. Tolerating diet. Pending surgery tomorrow for diverting colostomy. Discussed with patient. July 31: Patient underwent diverting colostomy today. With sigmoid colectomy. Left-sided colostomy. Postprocedure tired. Laying in bed. Due for sacral wound debridement tomorrow. August 01: Patient underwent debridement of sacral decubitus ulcer by Dr. Pabon. Had a good supper. logistics loss prevention manager looking into discharge planning. August 02: Patient in bed. Son at the bedside. Spoke to the case managers [place] to discover that patient actually has insurance. He should build to qualify for rehab. Looking into the same. Antibiotics to continue. PICC line was placed by Dr. Schulz from vascular today. August 03: Saw the patient this morning. Vomited twice. A bit dark-colored. Had dark-colored liquid output in the colostomy bag. Did not eat anything this morning. Diet was scaled back. Abdominal x-ray showed diffuse distention of the stomach and the small bowel. Small bowel was dilated up to 4.5 cm. Later patient is moved to the [facility] floor for telemetry. NG tube was placed. Dr Pabon from surgery is following. July: 8: NG tube to suction remains in place. Significant dark-colored output. Some output through the colostomy bag. Getting IV fluids. Tired August 05: NG tube remains to suction. Dark output. Some output liquidy through the colostomy bag. Tired. IV fluids. Replace IV potassium. August 06: NG tube remains in place. Output present. Some thickening of the output through the colostomy bag. Tired. Patient being visited by his daughter who lives down the road. She is offering to take care of the patient when he gets discharged. August 07: NG tube remains in place. Colostomy is putting out brown stool. Continue for suction as per surgery. Active Medications Acetaminophen (Acetaminophen Tab 325 Mg Tab) 650 mg PO Q6HR PRN PRN Reason: Mild Pain or Fever > 100.5 Last Admin: 08/06/23 05:20 Dose: 650 mg Hydrocodone Bitart/Acetaminophen (Hydrocodone/Apap 10-325mg 1 Each Tab) 1 each PO QID [facility] Last Admin: 08/08/23 17:20 Dose: Not Given Calcium Carbonate/Glycine (Calcium Carbonate 500 Mg Chewable) 1,000 mg PO Q4HR PRN PRN Reason: Dyspepsia Dextrose/Water (Dextrose 50% Syringe 50 Ml) 25 ml IVP PER PROTOCOL PRN; Protocol PRN Reason: Hypoglycemia Last Admin: 08/06/23 11:31 Dose: 25 ml Dextrose/Water (Dextrose 50% Syringe 50 Ml) 50 ml IVP PER PROTOCOL PRN; Protocol PRN Reason: Hypoglycemia Diphenhydramine HCl (Diphenhydramine 50 Mg/Ml 1 Ml Vial) 25 mg IVP Q6HR PRN PRN Reason: Itching Famotidine (Famotidine 20 Mg Tab) 20 mg PO BID [facility] Last Admin: 08/08/23 09:06 Dose: 20 mg Hydromorphone HCl (Hydromorphone 1 Mg/Ml 1 Ml Syringe) 1 mg IVP Q3HR PRN PRN Reason: Breakthrough Pain Last Admin: 08/08/23 15:27 Dose: 1 mg Lactated Ringer's (Lactated Ringers) 1,000 mls @ 125 mls/hr IV .Q8H [facility] Last Admin: 08/08/23 17:12 Dose: 125 mls/hr Ropivacaine 250 mg/Hydromorphone HCl 5 mg/ Sodium Chloride 250 mls @ 0 mls/hr EPIDURAL .Q0M PRN; Protocol PRN Reason: Pain Ampicillin Sodium/Sulbactam (Sodium 3 gm/ Sodium Chloride) 100 mls @ 200 mls/hr IVPB Q6HR [facility]; Protocol Last Admin: 08/08/23 17:12 Dose: 200 mls/hr Insulin Aspart (Insulin Aspart (Novolog) 100 Unit/Ml Vial) 0 unit SQ ACHS [facility]; Protocol Last Admin: 08/08/23 17:11 Dose: 1 unit Insulin Detemir (Insulin Detemir (Levemir) 100 Unit/Ml Syr) 10 unit SQ HS [facility] Last Admin: 08/07/23 20:41 Dose: Not Given Lactulose (Lactulose 20 Gm/30 Ml Cup) 20 gm PO DAILY PRN PRN Reason: Constipation Lidocaine HCl (Lidocaine 1% (10mg/Ml) For Iv Start) 0.1 ml INTRADERMA PER PROTOCOL PRN PRN Reason: IV Start Lorazepam (Lorazepam 0.5 Mg Tab) 0.5 mg PO Q6HR PRN PRN Reason: Anxiety Methocarbamol (Methocarbamol 500 Mg Tab) 500 mg PO QID [facility] Last Admin: 08/08/23 17:11 Dose: 500 mg Metoclopramide HCl (Metoclopramide 5 Mg/Ml 2 Ml Vial) 10 mg IVP Q6HR [facility] Last Admin: 08/08/23 17:12 Dose: 10 mg Naloxone HCl (Naloxone 0.4 Mg/Ml 1 Ml Vial) 0.2 mg IV Q2M PRN PRN Reason: Opioid Reversal Ondansetron HCl (Ondansetron 4 Mg/2 Ml Vial) 4 mg IVP Q6HR PRN PRN Reason: Nausea And Vomiting Last Admin: 08/06/23 09:16 Dose: 4 mg Temazepam (Temazepam 15 Mg Cap) 15 mg PO HS PRN PRN Reason: Insomnia Last Admin: 08/03/23 21:17 Dose: 15 mg Past medical history to include: Diabetes, possible ADHD, chronic low back pain, herniated disc, atrial fibrillation. COPD. left above-knee amputation. Right below-knee amputation. Sacral wound Social history: Son lives with the patient. 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 Smokes about a pack a day, now down to a few cigarettes a day. Alcohol occasionally. Marijuana Physical examination: VITAL SIGNS: 99.1, 93, 20, 151 x 62, 93% room air GENERAL: Laying in bed, comfortable EYES: Pupils equal. Conjunctiva normal. HEENT: External appearance of nose and ears normal, NG tube to suction NECK: JVD not raised; masses not palpable. HEART: First and second heart sounds are normal; no edema. LUNGS: Respiratory rate increased l; decreased breath sounds. No wheezing ABDOMEN: Soft, left-sided colostomy-brown soft stool l. Dressing over midline incision PSYCH: Alert and oriented x 3, mood affect normal MUSCULOSKELETAL: Left and right above-knee amputation, incisions with rosetta healing well. Sacral wound. NEUROLOGICAL: Moving all 4 limbs. INVESTIGATIONS, reviewed in the clinical context: August 07: White count 13.9 hemoglobin 8 potassium 3.4 creatinine 0.32 albumin 2 August 06: White count 20.4 hemoglobin 8.7 platelets 503 potassium 3.7 creatinine 0.48 August 05: Potassium 2.8 creatinine 0.37 August 03: White count 19.6 hemoglobin 10.8 potassium 3.8 creatinine 0.39 abdominal x-ray film personally reviewed by me-dilated stomach and small bowel July 31: White count 8.1 hemoglobin 10.1 platelets 515 potassium 4.9 creatinine 0.47 Blood culture [July 26] Clostridium sporogenes Wound culture: E. coli/Proteus mirabilis/beta-hemolytic Streptococcus. July 29: White count 10.0 hemoglobin 8.9 platelets 442 potassium 4.2 creatinine 0.3 July 28: White count 10.5 hemoglobin 8.2 platelets are 82 potassium 3.6 creatinine 0.4 Urine drug screen: Positive for opiates, amphetamines, meth amphetamines, marijuana July 26: White count 7.8 hemoglobin 10.3 platelets 522 sodium 125 potassium 4.7 BUN 13 creatinine 0.31 CRP 20.8 albumin 2.6 Assessment and plan: -Acute metabolic encephalopathy from recreational drugs. Patient last admission all the same presentation.: Resolved Urine drug screen positive for methamphetamines, amphetamines, opiates, marijuana -Acute small bowel obstruction with distended stomach with nausea vomiting. Patient moved to the telemetry for closer nursing monitoring. Surgery following: Improving NPO. NG tube to suction. -Severe hypokalemia from NG tube aspirate Replace -Right above-knee amputation by Dr. Zee on May 26. Cultures grew multiple organisms. discharged on June 03/2024 with IV ceftriaxone with a PICC line for 6 weeks. Patient never showed up for his IV antibiotics. Was subsequently discharged with Augmentin on the last visit -Sacral decubitus ulcer. With acute osteomyelitis. Patient has been noncompliant with his antibiotics Followed by Dr. Bahena from wound care center. Dr Pabon schedule -underwent debridement on August 01 IV Zosyn with ID Diverting colostomy-y Dr. Pabon on July 31 -Blood cultures positive for Clostridium Sporogenes, on July 26. Repeat blood cultures negative -Paroxysmal atrial fibrillation: sinus rhythm Amiodarone. Lopressor. -Diabetes mellitus type 2, chronically on insulin Cut back to Lantus to 10 units at night.. -COPD in a current smoker Bronchodilators as needed -Chronic nicotine dependence, cigarette smoker Nicotine patch -Chronic medical debility. Non-ambulatory -Full code Continue NG tube to suction. NPO. IV fluids. Follow-up with surgery. Consider TPN lipids if NG tube does not come out in next 24 to 48 hours. Past Medical History Past Medical History: Diabetes Mellitus Additional Past Medical History / Comment(s): pressure ulcers[Buttock,simone heals ,rt lateral foot]. BLOOD "ECOLI" INFECTION. History of Any Multi-Drug Resistant Organisms: None Reported Past Surgical History: Orthopedic Surgery Additional Past Surgical History / Comment(s): back pain son states pt recently "slipped a disc" taking gabapentin. Left leg above the knee amputation. MICHELLE PICC LINE. Past Anesthesia/Blood Transfusion Reactions: No Reported Reaction Past Psychological History: No Psychological Hx Reported Smoking Status: Current every day smoker Past Alcohol Use History: Rare Past Drug Use History: None Reported
[2023-08-08 20:04] LABS: Glucose,Whole Blood 165 mg/dL (70-110)
[2023-08-09 00:43] LABS: Glucose,Whole Blood 106 mg/dL (70-110)
[2023-08-09 06:20] LABS: Glucose,Whole Blood 76 mg/dL (70-110)
[2023-08-09 07:45] LABS: Glucose,Whole Blood 66 mg/dL (70-110)
[2023-08-09 08:16] LABS: Glucose,Whole Blood 63 mg/dL (70-110)
[2023-08-09 08:33] LABS: Glucose,Whole Blood 175 mg/dL (70-110)
[2023-08-09 09:36] LABS: African American GFR (CKD) >90 (>60 ml/min/1.73 sqM); Anion Gap 3 mmol/L; Blood Urea Nitrogen 5 mg/dL (9-20); Calcium 7.8 mg/dL (8.4-10.2); Carbon Dioxide 30 mmol/L (22-30); Chloride 101 mmol/L (98-107); Glucose 131 mg/dL (74-99); Non-African American GFR(CKD) >90 (>60 ml/min/1.73 sqM); Potassium 3.5 mmol/L (3.5-5.1); Sodium 134 mmol/L (137-145)
[2023-08-09 09:52] LABS: Basophils # (A) 0.1 k/uL (0-0.2); Basophils % (A) 0 %; Eosinophils # (A) 0.5 k/uL (0-0.7); Eosinophils % (A) 3 %; HGB 8.6 gm/dL (13.0-17.5); Hypochromasia Moderate; Lymphocytes % (A) 6 %; MCH 25.3 pg (25.0-35.0); MCHC 30.6 g/dL (31.0-37.0); MCV 82.8 fL (80.0-100.0); Mean Platelet Volume 7.3; Monocytes # (A) 0.6 k/uL (0-1.0); Monocytes % (A) 4 %; Neutrophils # (A) 13.5 k/uL (1.3-7.7); Neutrophils % (A) 86 %; Platelet Count 492 k/uL (150-450); RBC 3.38 m/uL (4.30-5.90); RDW 15.9 % (11.5-15.5); WBC 15.7 k/uL (3.8-10.6)
[2023-08-09] MEDS: FAMOTIDINE 20 MG/2 ML VIAL IV SCH (09:56)
[2023-08-09] MEDS: KETOROLAC 15 MG/ML 1 ML VIAL IVP SCH (11:08)
[2023-08-09 11:32] LABS: Glucose,Whole Blood 81 mg/dL (70-110)
--- NOTE | 2023-08-09 12:57 | P.PN ---
Subjective Progress Note Date: 08/08/23 Principal diagnosis: Reason for follow-up is infected sacral pressure ulcer Patient is a 63-year-old male with a past medical history significant for diabetes mellitus in this patient who did have a history of PAD s/p bilateral [id number] amputation and did have a stage IV sacral pressure ulcer that has been there for a few months, noncompliance with the previous IV and local care treatment presented to hospital with worsening wound and fever, Patient is status post sigmoid colectomy with end colostomy completed on 08/01/2023 and the patient is status post excision debridement of his sacral pressure ulcer by general surgery completed on 08/02/2023 On today's evaluation that is 08/08/2023,the patient remains to be afebrile, patient is on room air not requiring supplemental oxygen and denies any shortness of breath no chest pain or cough.Patient denies any further vomiting abdominal pain CMP slightly decreased intensity and has been asking for popsicle Patient white count is down to 13.9 creatinine 0.32 Objective - Vital Signs Vital signs: Vital Signs Temp 98.2 F 08/08/23 11:48 Pulse 82 08/08/23 11:48 Resp 20 08/08/23 11:48 BP 152/75 08/08/23 11:48 Pulse Ox 94 L 08/08/23 11:48 FiO2 21 08/08/23 08:45 Intake & Output 08/07/23 08/08/23 08/08/23 18:59 06:59 18:59 Intake Total 920 Output Total 575 800 Balance -575 120 Intake: Intake, IV Titration 800 Amount Ampicillin-Sulbactam 3 gm 100 In Sodium Chloride 0.9% 100 ml @ 200 mls/hr IVPB Q6HR [facility] Rx#:[id number] Lactated Ringers 1,000 ml 700 @ 0 mls/hr IV .STK-MED ONE Rx#:[id number] Oral 120 Output: Gastric Drainage 200 Urine 525 550 Stool 50 50 Other: Voiding Method Indwelling Catheter Indwelling Catheter Indwelling Catheter - Exam GENERAL DESCRIPTION: Middle-age male lying in bed in no distress RESPIRATORY SYSTEM: Unlabored breathing , decreased breath sounds at bases HEART: S1 S2 regular rate and rhythm , ABDOMEN: Soft , no tenderness EXTREMITIES: Bilateral AKA stump no redness or drainage - Labs CBC & Chem 7: 08/09/23 08:37 08/09/23 08:37 Labs: Abnormal Lab Results - Last 24 Hours (Table) 08/08/23 08/08/23 Range/Units 07:36 07:36 WBC 13.9 H (3.8-10.6) k/uL RBC 3.17 L (4.30-5.90) m/uL Hgb 8.0 L (13.0-17.5) gm/dL Hct 26.4 L (39.0-53.0) % MCHC 30.2 L (31.0-37.0) g/dL RDW 15.9 H (11.5-15.5) % Plt Count 461 H (150-450) k/uL Neutrophils # 11.5 H (1.3-7.7) k/uL Sodium 135 L (137-145) mmol/L Potassium 3.4 L (3.5-5.1) mmol/L Creatinine 0.32 L (0.66-1.25) mg/dL Calcium 7.5 L (8.4-10.2) mg/dL AST 13 L (17-59) U/L C-Reactive Protein 23.7 H (<1.0) mg/dL Total Protein 4.9 L (6.3-8.2) g/dL Albumin 2.0 L (3.5-5.0) g/dL Assessment and Plan (1) Sacral decubitus ulcer, stage IV Current Visit: Yes Status: Acute Code(s): L89.154 - PRESSURE ULCER OF SACRAL REGION, STAGE 4 SNOMED Code(s): 42330766110097 (2) Sacral osteomyelitis Current Visit: No Status: Acute Code(s): M46.28 - OSTEOMYELITIS OF VERTEBRA, SACRAL AND SACROCOCCYGEAL REGION SNOMED Code(s): 297862439 (3) Positive blood culture Current Visit: Yes Status: Acute Code(s): R78.81 - BACTEREMIA SNOMED Code(s): 308012723 Plan: 1patient was in the hospital with sepsis in this patient who did have a fever tachycardia elevated white count source is infected sacral pressure ulcer likely stage IV with underlying osteomyelitis in this patient wound has been there for couple of months now and noncompliance with treatment in the outpatient setting 2-positive blood culture more likely related to his infected sacral pressure ulcer, blood culture has been repeated to document clearance of bacteremia and repeat blood culture negative 3-The patient local culture grew E. coli and Proteus and beta-hemolytic Streptococcus 4-patient is status post diverting colostomy and surgical debridement of his large sacral pressure ulcer 5-patient did have a PICC line placement on 08/03/2023 6patient is afebrile, the white count is trending down we will continue the patient on Unasyn and monitor his clinical course closely Dictation was produced using [employer] dictation software. please excuse any grammatical, word or spelling errors. Time with Patient: Less than 30
--- NOTE | 2023-08-09 12:58 | P.PN ---
Subjective Progress Note Date: 08/09/23 Principal diagnosis: Reason for follow-up is infected sacral pressure ulcer Patient is a 63-year-old male with a past medical history significant for diabetes mellitus in this patient who did have a history of PAD s/p bilateral [id number] amputation and did have a stage IV sacral pressure ulcer that has been there for a few months, noncompliance with the previous IV and local care treatment presented to hospital with worsening wound and fever, Patient is status post sigmoid colectomy with end colostomy completed on 08/01/2023 and the patient is status post excision debridement of his sacral pressure ulcer by general surgery completed on 08/02/2023 On today's evaluation that is 08/09/2023, the patient continues to be afebrile, the patient is on 2 L nasal cannula oxygen and breathing comfortably, the Pt denies having any chest pain or cough, the patient has been complaining of abdominal pain nausea but no further vomiting asking for pain medication Patient white count slightly up to 15.7 today, creatinine 0.29 Objective - Vital Signs Vital signs: Vital Signs Temp 98.4 F 08/09/23 11:07 Pulse 87 08/09/23 11:07 Resp 18 08/09/23 11:07 BP 136/82 08/09/23 11:07 Pulse Ox 98 08/09/23 11:07 FiO2 21 08/08/23 08:45 Intake & Output 08/08/23 08/09/23 08/09/23 18:59 06:59 18:59 Intake Total 2059 1140 118 Output Total 600 Balance 2059 540 118 Intake: Intake, IV Titration 1700 900 Amount Ampicillin-Sulbactam 3 gm 200 100 In Sodium Chloride 0.9% 100 ml @ 200 mls/hr IVPB Q6HR [facility] Rx#:[id number] Lactated Ringers 1,000 ml 800 @ 0 mls/hr IV .STK-MED ONE Rx#:[id number] Lactated Ringers 1,000 ml 1500 @ 0 mls/hr IV .STK-MED ONE Rx#:[id number] Oral 360 240 118 Output: Urine 600 Other: Voiding Method Indwelling Catheter Indwelling Catheter Indwelling Catheter - Exam GENERAL DESCRIPTION: Middle-age male lying in bed in no distress RESPIRATORY SYSTEM: Unlabored breathing , decreased breath sounds at bases HEART: S1 S2 regular rate and rhythm , ABDOMEN: Soft , no tenderness EXTREMITIES: Bilateral AKA stump no redness or drainage - Labs CBC & Chem 7: 08/09/23 08:37 08/09/23 08:37 Labs: Abnormal Lab Results - Last 24 Hours (Table) 08/08/23 08/08/23 08/09/23 Range/Units 16:43 20:03 07:44 WBC (3.8-10.6) k/uL RBC (4.30-5.90) m/uL Hgb (13.0-17.5) gm/dL Hct (39.0-53.0) % MCHC (31.0-37.0) g/dL RDW (11.5-15.5) % Plt Count (150-450) k/uL Neutrophils # (1.3-7.7) k/uL Sodium (137-145) mmol/L BUN (9-20) mg/dL Creatinine (0.66-1.25) mg/dL Glucose (74-99) mg/dL POC Glucose (mg/dL) 160 H 165 H 66 L (70-110) mg/dL Calcium (8.4-10.2) mg/dL 08/09/23 08/09/23 08/09/23 Range/Units 08:14 08:31 08:37 WBC 15.7 H (3.8-10.6) k/uL RBC 3.38 L (4.30-5.90) m/uL Hgb 8.6 L (13.0-17.5) gm/dL Hct 28.0 L (39.0-53.0) % MCHC 30.6 L (31.0-37.0) g/dL RDW 15.9 H (11.5-15.5) % Plt Count 492 H (150-450) k/uL Neutrophils # 13.5 H (1.3-7.7) k/uL Sodium (137-145) mmol/L BUN (9-20) mg/dL Creatinine (0.66-1.25) mg/dL Glucose (74-99) mg/dL POC Glucose (mg/dL) 63 L 175 H (70-110) mg/dL Calcium (8.4-10.2) mg/dL 08/09/23 Range/Units 08:37 WBC (3.8-10.6) k/uL RBC (4.30-5.90) m/uL Hgb (13.0-17.5) gm/dL Hct (39.0-53.0) % MCHC (31.0-37.0) g/dL RDW (11.5-15.5) % Plt Count (150-450) k/uL Neutrophils # (1.3-7.7) k/uL Sodium 134 L (137-145) mmol/L BUN 5 L (9-20) mg/dL Creatinine 0.29 L (0.66-1.25) mg/dL Glucose 131 H (74-99) mg/dL POC Glucose (mg/dL) (70-110) mg/dL Calcium 7.8 L (8.4-10.2) mg/dL Assessment and Plan (1) Sacral decubitus ulcer, stage IV Current Visit: Yes Status: Acute Code(s): L89.154 - PRESSURE ULCER OF SACRAL REGION, STAGE 4 SNOMED Code(s): 66876280165795 (2) Sacral osteomyelitis Current Visit: No Status: Acute Code(s): M46.28 - OSTEOMYELITIS OF VERTEBRA, SACRAL AND SACROCOCCYGEAL REGION SNOMED Code(s): 076759846 (3) Positive blood culture Current Visit: Yes Status: Acute Code(s): R78.81 - BACTEREMIA SNOMED Code(s): 908978394 Plan: 1patient was in the hospital with sepsis in this patient who did have a fever tachycardia elevated white count source is infected sacral pressure ulcer likely stage IV with underlying osteomyelitis in this patient wound has been there for couple of months now and noncompliance with treatment in the outpatient setting 2-positive blood culture more likely related to his infected sacral pressure ulcer, blood culture has been repeated to document clearance of bacteremia and repeat blood culture negative 3-The patient local culture grew E. coli and Proteus and beta-hemolytic Strepto coccus 4-patient is status post diverting colostomy and surgical debridement of his large sacral pressure ulcer 5-patient did have a PICC line placement on 08/03/2023 6patient is afebrile, the white count is slightly elevated today and will monitor closely we will repeat a CBC and a CRP with a.m. lab and continue the patient on Unasyn Dictation was produced using [employer] software. please excuse any grammatical, word or spelling errors. Time with Patient: Less than 30
[2023-08-09] MEDS: DEXTROSE 5%-0.45% NACL 1,000 ML IV SCH (13:12)
[2023-08-09 13:33] LABS: Glucose,Whole Blood 55 mg/dL (70-110)
[2023-08-09 13:33] LABS: Glucose,Whole Blood 48 mg/dL (70-110)
--- NOTE | 2023-08-09 13:45 | P.PN ---
Subjective Progress Note Date: 08/09/23 CHIEF COMPLAINT: Sacral decubitus ulcers HISTORY OF PRESENT ILLNESS: Patient postop day #8 status post diverting colostomy. Patient postop day #7 status post debridement of decubitus ulcer. Patient started to have vomiting again this morning. He is vomiting on the liquids. Plus family did bring patient and potato chips. His emesis did contain potato chips. Vomiting also did occur after he received IV Dilaudid this morning. He had 50 mL of stool through his ostomy last night. Patient does report abdominal pain. Afebrile. WBC is up at 15.7 Hgb 8.6 platelets 492 sodium is 134 potassium 3.5 creatinine 0.29 glucose 55. Patient continues to have ileus. NG tube was discontinued yesterday. PHYSICAL EXAM: VITAL SIGNS: Reviewed. GENERAL: no acute distress. ABDOMEN: Mildly distended. incision clean dry and intact. no stool in ostomy bag this morning. Stoma pink NEUROLOGIC: Alert and oriented. Cranial nerves II through XII grossly intact. ASSESSMENT: 1. Stage IV sacral decubitus ulcers 2. Sepsis 3. Hyponatremia 4. Diabetes mellitus 5. Medical noncompliance 6. Ileus 7. Hypokalemia PLAN: -Patient continues to have ileus. Downgrade diet to n.p.o. If patient continues to vomit will need to place NG tube -Continue antiemetics -Consult dietitian for TPN placement for nutrition support -Continue reglan -Continue IV fluids -Continue pain management -Antibiotics per ID service -Consult wound care service for wound care of the decubitus ulcer -Continue to correct electrolytes -Recommend comfort care measures Physician Cash Manager note has been reviewed by physician. Signing provider agrees with the documented findings, assessment, and plan of care. Objective - Vital Signs Vital signs: Vital Signs Temp 98.4 F 08/09/23 11:07 Pulse 87 08/09/23 13:11 Resp 18 08/09/23 13:11 BP 136/82 08/09/23 11:07 Pulse Ox 98 08/09/23 11:07 FiO2 21 08/08/23 08:45 Intake & Output 08/08/23 08/09/23 08/09/23 18:59 06:59 18:59 Intake Total 2059 1140 118 Output Total 600 450 Balance 2059 540 -332 Intake: Intake, IV Titration 1700 900 Amount Ampicillin-Sulbactam 3 gm 200 100 In Sodium Chloride 0.9% 100 ml @ 200 mls/hr IVPB Q6HR [facility] Rx#:[id number] Lactated Ringers 1,000 ml 800 @ 0 mls/hr IV .STK-MED ONE Rx#:[id number] Lactated Ringers 1,000 ml 1500 @ 0 mls/hr IV .STK-MED ONE Rx#:[id number] Oral 360 240 118 Output: Urine 600 450 Other: Voiding Method Indwelling Catheter Indwelling Catheter Indwelling Catheter - Labs CBC & Chem 7: 08/09/23 08:37 08/09/23 08:37 Labs: Abnormal Lab Results - Last 24 Hours (Table) 08/08/23 08/08/23 08/09/23 Range/Units 16:43 20:03 07:44 WBC (3.8-10.6) k/uL RBC (4.30-5.90) m/uL Hgb (13.0-17.5) gm/dL Hct (39.0-53.0) % MCHC (31.0-37.0) g/dL RDW (11.5-15.5) % Plt Count (150-450) k/uL Neutrophils # (1.3-7.7) k/uL Sodium (137-145) mmol/L BUN (9-20) mg/dL Creatinine (0.66-1.25) mg/dL Glucose (74-99) mg/dL POC Glucose (mg/dL) 160 H 165 H 66 L (70-110) mg/dL Calcium (8.4-10.2) mg/dL 08/09/23 08/09/23 08/09/23 Range/Units 08:14 08:31 08:37 WBC 15.7 H (3.8-10.6) k/uL RBC 3.38 L (4.30-5.90) m/uL Hgb 8.6 L (13.0-17.5) gm/dL Hct 28.0 L (39.0-53.0) % MCHC 30.6 L (31.0-37.0) g/dL RDW 15.9 H (11.5-15.5) % Plt Count 492 H (150-450) k/uL Neutrophils # 13.5 H (1.3-7.7) k/uL Sodium (137-145) mmol/L BUN (9-20) mg/dL Creatinine (0.66-1.25) mg/dL Glucose (74-99) mg/dL POC Glucose (mg/dL) 63 L 175 H (70-110) mg/dL Calcium (8.4-10.2) mg/dL 08/09/23 08/09/23 08/09/23 Range/Units 08:37 13:30 13:32 WBC (3.8-10.6) k/uL RBC (4.30-5.90) m/uL Hgb (13.0-17.5) gm/dL Hct (39.0-53.0) % MCHC (31.0-37.0) g/dL RDW (11.5-15.5) % Plt Count (150-450) k/uL Neutrophils # (1.3-7.7) k/uL Sodium 134 L (137-145) mmol/L BUN 5 L (9-20) mg/dL Creatinine 0.29 L (0.66-1.25) mg/dL Glucose 131 H (74-99) mg/dL POC Glucose (mg/dL) 48 L 55 L (70-110) mg/dL Calcium 7.8 L (8.4-10.2) mg/dL
[2023-08-09 14:44] LABS: Glucose,Whole Blood 176 mg/dL (70-110)
[2023-08-09 16:19] LABS: Albumin 2.3 g/dL (3.5-5.0); Magnesium 1.8 mg/dL (1.6-2.3); Phosphorus 2.9 mg/dL (2.5-4.5)
[2023-08-09 16:20] LABS: Glucose,Whole Blood 110 mg/dL (70-110)
[2023-08-09 16:42] LABS: Ionized Calcium 4.8 mg/dL (4.5-5.3)
[2023-08-09] MEDS: MVI, ADULT NO.4 WITH VIT K 10 ML, TRACE (CONC-1ML/DOSE) 1 ML in AMINO ACID 5%-D20W+LYTE... IV SCH (18:39)
[2023-08-09 20:10] LABS: Glucose,Whole Blood 100 mg/dL (70-110)
--- NOTE | 2023-08-09 20:57 | P.PN ---
Progress Note - Text Progress Note Date: 08/09/23 Chief Complaint: Sacral wound This is a 63-year-old patient, follows with Dr. Mendez. Chronic stable medical conditions include ADHD, herniated disc lower back, smoker. Sacral wounds. Left AKA. right above-knee amputation by Dr. Zee on April 2023 Recently presented, not being compliant. Smoking cigarettes. Recreational drugs. Patient has not followed up for his PICC line antibiotics last discharge and was discharged on oral Augmentin. Patient has seen Dr. Zee from vascular and wound care Dr. Bahena. Patient's son lives with him. Patient now presents with worsening sacral wound. Eating fair. Continues to smoke cigarettes. Does marijuana. Tired. Some wheezing shortness of breath. June: Patient seen by Dr. Zee. Sacral decubitus wound will be followed by Dr. Pabon's team. For possible diverting colostomy. Patient is on IV Zosyn. Eating well. Urine drug screen was positive for opiates, amphetamines, methamphetamines, marijuana. Home pain medications were resumed. July 1: Patient being scheduled for diverting colostomy on Tuesday with Dr. Pabon. And debridement of sacral ulcer on Tuesday. Continue antibiotics. Patient eating well. July 2: Laying in bed. Comfortable. Son and family visiting. Scheduled for surgery on Tuesday and Tuesday. Eating well. Antibiotics in place. July 3: Comfortable. Tolerating diet. Pending surgery tomorrow for diverting colostomy. Discussed with patient. July 31: Patient underwent diverting colostomy today. With sigmoid colectomy. Left-sided colostomy. Postprocedure tired. Laying in bed. Due for sacral wound debridement tomorrow. August 01: Patient underwent debridement of sacral decubitus ulcer by Dr. Pabon. Had a good supper. manager contracting looking into discharge planning. August 02: Patient in bed. Son at the bedside. Spoke to the adult protective caseworker Vernon to discover that patient actually has insurance. He should build to qualify for rehab. Looking into the same. Antibiotics to continue. PICC line was placed by Dr. Schulz from vascular today. August 03: Saw the patient this morning. Vomited twice. A bit dark-colored. Had dark-colored liquid output in the colostomy bag. Did not eat anything this morning. Diet was scaled back. Abdominal x-ray showed diffuse distention of the stomach and the small bowel. Small bowel was dilated up to 4.5 cm. Later patient is moved to the selective floor for telemetry. NG tube was placed. Dr Pabon from surgery is following. July: 8: NG tube to suction remains in place. Significant dark-colored output. Some output through the colostomy bag. Getting IV fluids. Tired August 05: NG tube remains to suction. Dark output. Some output liquidy through the colostomy bag. Tired. IV fluids. Replace IV potassium. August 06: NG tube remains in place. Output present. Some thickening of the output through the colostomy bag. Tired. Patient being visited by his daughter who lives down the road. She is offering to take care of the patient when he gets discharged. August 07: NG tube remains in place. Colostomy is putting out brown stool. Continue for suction as per surgery. August 08: Saw the patient twice today. In the morning and then later this evening. Patient again started vomiting. TPN was ordered and started this afternoon. I communicated with Janet CHAVES from surgery. Surgical team is suggesting comfort measures/hospice if no improvement. Late in the evening I discussed with the patient. He will also talk to his children. Continues to have nausea. Active Medications Acetaminophen (Acetaminophen Tab 325 Mg Tab) 650 mg PO Q6HR PRN PRN Reason: Mild Pain or Fever > 100.5 Last Admin: 08/06/23 05:20 Dose: 650 mg Hydrocodone Bitart/Acetaminophen (Hydrocodone/Apap 10-325mg 1 Each Tab) 1 each PO QID [place] Last Admin: 08/09/23 16:53 Dose: 1 each Calcium Carbonate/Glycine (Calcium Carbonate 500 Mg Chewable) 1,000 mg PO Q4HR PRN PRN Reason: Dyspepsia Dextrose/Water (Dextrose 50% Syringe 50 Ml) 25 ml IVP PER PROTOCOL PRN; Protocol PRN Reason: Hypoglycemia Last Admin: 08/09/23 08:18 Dose: 25 ml Dextrose/Water (Dextrose 50% Syringe 50 Ml) 50 ml IVP PER PROTOCOL PRN; Protocol PRN Reason: Hypoglycemia Diphenhydramine HCl (Diphenhydramine 50 Mg/Ml 1 Ml Vial) 25 mg IVP Q6HR PRN PRN Reason: Itching Famotidine (Famotidine 20 Mg/2 Ml Vial) 20 mg IV Q12HR [facility] Last Admin: 08/09/23 20:44 Dose: 20 mg Hydromorphone HCl (Hydromorphone 1 Mg/Ml 1 Ml Syringe) 1 mg IVP Q3HR PRN PRN Reason: Breakthrough Pain Last Admin: 08/09/23 20:36 Dose: 1 mg Ropivacaine 250 mg/Hydromorphone HCl 5 mg/ Sodium Chloride 250 mls @ 0 mls/hr EPIDURAL .Q0M PRN; Protocol PRN Reason: Pain Ampicillin Sodium/Sulbactam (Sodium 3 gm/ Sodium Chloride) 100 mls @ 200 mls/hr IVPB Q6HR [facility]; Protocol Last Admin: 08/09/23 16:55 Dose: 200 mls/hr Parenteral Vitamin Supplement 10 ml/ Zinc/Copper/Manganese/Selenium 1 ml/ Amino Ac/Electrol/Dextrose/Calcium 1,011 mls @ 30 mls/hr IV .Q24H [facility] Stop: 08/10/23 17:59 Last Admin: 08/09/23 18:39 Dose: 30 mls/hr Parenteral Vitamin Supplement 10 ml/ Zinc/Copper/Manganese/Selenium 1 ml/ Amino Ac/Electrol/Dextrose/Calcium 1,011 mls @ 65 mls/hr IV .BY DURATION [facility] Amino Ac/Electrol/Dextrose/Calcium (Clinimix E 5%-20% Solution) 1,000 mls @ 65 mls/hr IV .BY DURATION [facility] Fat Emulsion Intravenous (Lipids 20%) 250 mls @ 20.833 mls/hr IV WeSa [facility] Insulin Aspart (Insulin Aspart (Novolog) 100 Unit/Ml Vial) 0 unit SQ [facility]; Protocol Last Admin: 08/09/23 16:47 Dose: Not Given Insulin Detemir (Insulin Detemir (Levemir) 100 Unit/Ml Syr) 10 unit SQ [facility] Last Admin: 08/08/23 20:21 Dose: 10 unit Ketorolac Tromethamine (Ketorolac 15 Mg/Ml 1 Ml Vial) 15 mg IVP Q6HR [facility] Stop: 08/14/23 09:47 Last Admin: 08/09/23 16:54 Dose: 15 mg Lactulose (Lactulose 20 Gm/30 Ml Cup) 20 gm PO DAILY PRN PRN Reason: Constipation Lidocaine HCl (Lidocaine 1% (10mg/Ml) For Iv Start) 0.1 ml INTRADERMA PER PROTOCOL PRN PRN Reason: IV Start Lorazepam (Lorazepam 0.5 Mg Tab) 0.5 mg PO Q6HR PRN PRN Reason: Anxiety Methocarbamol (Methocarbamol 500 Mg Tab) 500 mg PO QID [facility] Last Admin: 08/09/23 16:53 Dose: 500 mg Metoclopramide HCl (Metoclopramide 5 Mg/Ml 2 Ml Vial) 10 mg IVP Q6HR [facility] Last Admin: 08/09/23 16:54 Dose: 10 mg Naloxone HCl (Naloxone 0.4 Mg/Ml 1 Ml Vial) 0.2 mg IV Q2M PRN PRN Reason: Opioid Reversal Ondansetron HCl (Ondansetron 4 Mg/2 Ml Vial) 4 mg IVP Q6HR PRN PRN Reason: Nausea And Vomiting Last Admin: 08/09/23 07:52 Dose: 4 mg Temazepam (Temazepam 15 Mg Cap) 15 mg PO HS PRN PRN Reason: Insomnia Last Admin: 08/08/23 20:20 Dose: 15 mg Past medical history to include: Diabetes, possible ADHD, chronic low back pain, herniated disc, atrial fibrillation. COPD. left above-knee amputation. Right below-knee amputation. Sacral wound Social history: Son lives with the patient. 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 Smokes about a pack a day, now down to a few cigarettes a day. Alcohol occasionally. Marijuana Physical examination: VITAL SIGNS: 99.2, 95, 18, 123 x 76, 94% room air GENERAL: Propped up in bed, tired EYES: Pupils equal. Conjunctiva normal. HEENT: External appearance of nose and ears normal, NG tube to suction NECK: JVD not raised; masses not palpable. HEART: First and second heart sounds are normal; no edema. LUNGS: Respiratory rate increased l; decreased breath sounds. No wheezing ABDOMEN: Soft, left-sided colostomy-brown soft stool l. Dressing over midline incision. Some tenderness PSYCH: Alert and oriented x 3, mood affect anxious MUSCULOSKELETAL: Left and right above-knee amputation, incisions with rosetta healing well. Sacral wound. NEUROLOGICAL: Moving all 4 limbs. INVESTIGATIONS, reviewed in the clinical context: August 08: White count 15.7 hemoglobin 8.6 potassium 3.5 creatinine 0.29 August 05: Potassium 2.8 creatinine 0.37 August 03: White count 19.6 hemoglobin 10.8 potassium 3.8 creatinine 0.39 abdominal x-ray film personally reviewed by me-dilated stomach and small bowel Blood culture [July 26] Clostridium sporogenes Wound culture: E. coli/Proteus mirabilis/beta-hemolytic Streptococcus. July 29: White count 10.0 hemoglobin 8.9 platelets 442 potassium 4.2 creatinine 0.3 July 28: White count 10.5 hemoglobin 8.2 platelets are 82 potassium 3.6 creatinine 0.4 Urine drug screen: Positive for opiates, amphetamines, meth amphetamines, marijuana July 26: White count 7.8 hemoglobin 10.3 platelets 522 sodium 125 potassium 4.7 BUN 13 creatinine 0.31 CRP 20.8 albumin 2.6 Assessment and plan: -Acute metabolic encephalopathy from recreational drugs. Patient last admission all the same presentation.: Resolved Urine drug screen positive for methamphetamines, amphetamines, opiates, marijuana -Acute small bowel obstruction with distended stomach with nausea vomiting. Patient moved to the telemetry for closer nursing monitoring. Surgery following: Nausea vomiting has come back. Worsening. Made NPO. -Severe hypokalemia from NG tube aspirate Replace -Right above-knee amputation by Dr. Zee on May 26. Cultures grew multiple organisms. discharged on June 03/2024 with IV ceftriaxone with a PICC line for 6 weeks. Patient never showed up for his IV antibiotics. Was subsequently discharged with Augmentin on the last visit -Sacral decubitus ulcer. With acute osteomyelitis. Patient has been noncompliant with his antibiotics Followed by Dr. Bahena from wound care center. Dr Pabon schedule -underwent debridement on August 01 IV Zosyn with ID Diverting colostomy- Dr. Pabon on July 31 -Blood cultures positive for Clostridium Sporogenes, on July 26. Repeat blood cultures negative -Paroxysmal atrial fibrillation: sinus rhythm Amiodarone. Lopressor. -Diabetes mellitus type 2, chronically on insulin Cut back to Lantus to 10 units at night.. -COPD in a current smoker Bronchodilators as needed -Chronic nicotine dependence, cigarette smoker Nicotine patch -Chronic medical debility. Non-ambulatory -Full code Patient NPO. Vomiting again today. TPN started. NG tube to be reinserted if continues to vomit. Advance care planning [August 09, 2023] Patient overall poor prognosis discussed with the patient. Told him what surgical team is seeing. Options are limited. TPN started today. CODE STATUS discussed. Patient wishes to talk to his son and daughter. Questions answered Time spent about 25 minutes Past Medical History Past Medical History: Diabetes Mellitus Additional Past Medical History / Comment(s): pressure ulcers[Buttock,simone heals ,rt lateral foot]. BLOOD "ECOLI" INFECTION. History of Any Multi-Drug Resistant Organisms: None Reported Past Surgical History: Orthopedic Surgery Additional Past Surgical History / Comment(s): back pain son states pt recently "slipped a disc" taking gabapentin. Left leg above the knee amputation. MICHELLE PICC LINE. Past Anesthesia/Blood Transfusion Reactions: No Reported Reaction Past Psychological History: No Psychological Hx Reported Smoking Status: Current every day smoker Past Alcohol Use History: Rare Past Drug Use History: None Reported
[2023-08-09] MEDS ORDERED: FAMOTIDINE 20 MG/2 ML VIAL IV SCH (21:00)
[2023-08-10 06:13] LABS: Glucose,Whole Blood 170 mg/dL (70-110)
[2023-08-10 10:14] LABS: ALT 7 U/L (4-49); AST 13 U/L (17-59); African American GFR (CKD) >90 (>60 ml/min/1.73 sqM); Albumin 2.2 g/dL (3.5-5.0); Alkaline Phosphatase 67 U/L (38-126); Anion Gap 8 mmol/L; Blood Urea Nitrogen 8 mg/dL (9-20); Calcium 7.7 mg/dL (8.4-10.2); Carbon Dioxide 24 mmol/L (22-30); Chloride 101 mmol/L (98-107); Glucose 186 mg/dL (74-99); Magnesium 1.8 mg/dL (1.6-2.3); Non-African American GFR(CKD) >90 (>60 ml/min/1.73 sqM); Phosphorus 3.3 mg/dL (2.5-4.5); Potassium 3.8 mmol/L (3.5-5.1); Sodium 133 mmol/L (137-145); Total Bilirubin 0.5 mg/dL (0.2-1.3); Total Protein 5.5 g/dL (6.3-8.2)
[2023-08-10 10:26] LABS: C Reactive Protein 23.4 mg/dL (<1.0)
[2023-08-10 10:36] LABS: Basophils # (A) 0.1 k/uL (0-0.2); Basophils % (A) 0 %; Eosinophils # (A) 0.6 k/uL (0-0.7); Eosinophils % (A) 3 %; HCT 27.6 % (39.0-53.0); HGB 8.4 gm/dL (13.0-17.5); Hypochromasia Marked; Lymphocytes # (A) 0.9 k/uL (1.0-4.8); Lymphocytes % (A) 5 %; MCH 25.5 pg (25.0-35.0); MCHC 30.3 g/dL (31.0-37.0); Mean Platelet Volume 7.9; Monocytes # (A) 0.8 k/uL (0-1.0); Monocytes % (A) 5 %; Neutrophils # (A) 15.1 k/uL (1.3-7.7); Neutrophils % (A) 86 %; Platelet Count 494 k/uL (150-450); RBC 3.29 m/uL (4.30-5.90); RDW 15.7 % (11.5-15.5); WBC 17.5 k/uL (3.8-10.6)
[2023-08-10 11:12] LABS: Glucose,Whole Blood 210 mg/dL (70-110)
--- NOTE | 2023-08-10 11:27 | P.PN ---
Subjective Progress Note Date: 08/10/23 CHIEF COMPLAINT: Sacral decubitus ulcers HISTORY OF PRESENT ILLNESS: Patient postop day #9 status post diverting colostomy. Patient postop day #8 status post debridement of decubitus ulcer. Patient continues to have vomiting. He refused the NG tube last night. Initially refused NG tube this morning. Per nursing staff he is now willing to have NG tube placed. Patient agitated that he cannot eat. No output in ostomy bag. Patient has TPN for nutrition support. Low-grade temp 99.1. WBC is up fr om 15-17.5 Hgb 8.4 platelets 494 sodium 133 k 3.8 PHYSICAL EXAM: VITAL SIGNS: Reviewed. GENERAL: no acute distress. ABDOMEN: Mildly distended. incision clean dry and intact. no stool in ostomy bag this morning. Stoma pink NEUROLOGIC: Alert and oriented. Cranial nerves II through XII grossly intact. ASSESSMENT: 1. Stage IV sacral decubitus ulcers 2. Sepsis 3. Hyponatremia 4. Diabetes mellitus 5. Medical noncompliance 6. Ileus 7. Hypokalemia PLAN: -Recommend comfort care measures -NG tube for decompression -Keep patient n.p.o. -TPN for nutrition support -Continue reglan -Continue IV fluids -Continue pain management -Antibiotics per ID service -Continue local wound care per wound care service Physician Director Of Quality note has been reviewed by physician. Signing provider agrees with the documented findings, assessment, and plan of care. Objective - Vital Signs Vital signs: Vital Signs Temp 99.1 F 08/10/23 08:00 Pulse 94 08/10/23 08:00 Resp 20 08/10/23 08:00 BP 126/73 08/10/23 08:00 Pulse Ox 93 L 08/10/23 10:07 FiO2 21 08/08/23 08:45 Intake & Output 08/09/23 08/10/23 08/10/23 18:59 06:59 18:59 Intake Total 118 Output Total 450 250 50 Balance -332 -250 -50 Weight 58.97 kg Intake: Oral 118 Output: Urine 450 250 Stool 50 Other: Voiding Method Indwelling Catheter Indwelling Catheter Indwelling Catheter - Labs CBC & Chem 7: 08/10/23 08:22 08/10/23 08:22 Labs: Abnormal Lab Results - Last 24 Hours (Table) 08/09/23 08/09/23 08/09/23 Range/Units 13:30 13:32 14:43 WBC (3.8-10.6) k/uL RBC (4.30-5.90) m/uL Hgb (13.0-17.5) gm/dL Hct (39.0-53.0) % MCHC (31.0-37.0) g/dL RDW (11.5-15.5) % Plt Count (150-450) k/uL Neutrophils # (1.3-7.7) k/uL Lymphocytes # (1.0-4.8) k/uL Sodium (137-145) mmol/L BUN (9-20) mg/dL Creatinine (0.66-1.25) mg/dL Glucose (74-99) mg/dL POC Glucose (mg/dL) 48 L 55 L 176 H (70-110) mg/dL Calcium (8.4-10.2) mg/dL AST (17-59) U/L C-Reactive Protein (<1.0) mg/dL Total Protein (6.3-8.2) g/dL Albumin (3.5-5.0) g/dL 08/09/23 08/10/23 08/10/23 Range/Units 15:41 06:10 08:22 WBC 17.5 H (3.8-10.6) k/uL RBC 3.29 L (4.30-5.90) m/uL Hgb 8.4 L (13.0-17.5) gm/dL Hct 27.6 L (39.0-53.0) % MCHC 30.3 L (31.0-37.0) g/dL RDW 15.7 H (11.5-15.5) % Plt Count 494 H (150-450) k/uL Neutrophils # 15.1 H (1.3-7.7) k/uL Lymphocytes # 0.9 L (1.0-4.8) k/uL Sodium (137-145) mmol/L BUN (9-20) mg/dL Creatinine (0.66-1.25) mg/dL Glucose (74-99) mg/dL POC Glucose (mg/dL) 170 H (70-110) mg/dL Calcium (8.4-10.2) mg/dL AST (17-59) U/L C-Reactive Protein (<1.0) mg/dL Total Protein (6.3-8.2) g/dL Albumin 2.3 L (3.5-5.0) g/dL 08/10/23 08/10/23 Range/Units 08:22 11:10 WBC (3.8-10.6) k/uL RBC (4.30-5.90) m/uL Hgb (13.0-17.5) gm/dL Hct (39.0-53.0) % MCHC (31.0-37.0) g/dL RDW (11.5-15.5) % Plt Count (150-450) k/uL Neutrophils # (1.3-7.7) k/uL Lymphocytes # (1.0-4.8) k/uL Sodium 133 L (137-145) mmol/L BUN 8 L (9-20) mg/dL Creatinine 0.28 L (0.66-1.25) mg/dL Glucose 186 H (74-99) mg/dL POC Glucose (mg/dL) 210 H (70-110) mg/dL Calcium 7.7 L (8.4-10.2) mg/dL AST 13 L (17-59) U/L C-Reactive Protein 23.4 H (<1.0) mg/dL Total Protein 5.5 L (6.3-8.2) g/dL Albumin 2.2 L (3.5-5.0) g/dL
--- NOTE | 2023-08-10 12:26 | P.PN ---
Subjective Progress Note Date: 08/10/23 This is a 63-year-old gentleman with past medical history significant for stage IV sacral decubitus ulcer previous surgical debridements, diabetes and current every day smoker. Patient was seen approximately 6 weeks ago status post a surgical debridement at that time. There is difficulties with dressing changes secondary to the proximity to the anal opening. There is also significant difficulty with compliance. Patient has a large amount of exudative film in the decubitus. Significant amount of depth and probable palpable bone. Due to the location the ulceration would be difficult to utilize a negative pressure wound VAC. 08/10/2023: Requested to re-Evaluate patient after surgical debridement. Patient had surgical debridement to sacral ulceration and bilateral posterior trochanter ulcerations. Ulceration shows minimal granulation with slough and nonviable tissue still present tunneling and undermining noted. Been utilizing wet-to-dry Kerlix dressing. We will continue with the absorptive silver dressing to the site. Review Of Systems: Constitutional: No fever, no chills, no night sweats. No weight change. No weakness, fatigue or lethargy. No daytime sleepiness. Integumentary:reports wounds, no lesions. No rash or pruritus. No unusual bruising. No change in hair or nails. Physical exam: General Appearance: Alert, cooperative, no distress, appears stated age.Patient also want a colostomy to help facilitate healing prognosis remains guarded Skin: See HPI all other Skin color, texture, tugor normal, no rashes or lesions. Neurologic: Alert oriented x3 Assessment: 1. Stage IV sacral ulceration Plan: 1. Apply absorptive silver, saline moist gauze, Kerlix for packing and cover with ABD. Secure with tape. May change the outer dressing as needed keep silver in place for at least 48 hours. Thank you for the consultation any questions please contact the wound care center DNP note has been reviewed and discussed with Dr. Conway and the impression and plan of care has been directed as dictated. Objective - Vital Signs Vital signs: Vital Signs Temp 99.1 F 08/10/23 08:00 Pulse 94 08/10/23 08:00 Resp 20 08/10/23 08:00 BP 126/73 08/10/23 08:00 Pulse Ox 93 L 08/10/23 10:07 FiO2 21 08/08/23 08:45 Intake & Output 08/09/23 08/10/23 08/10/23 18:59 06:59 18:59 Intake Total 118 Output Total 450 250 50 Balance -332 -250 -50 Weight 58.97 kg Intake: Oral 118 Output: Urine 450 250 Stool 50 Other: Voiding Method Indwelling Catheter Indwelling Catheter Indwelling Catheter - Labs CBC & Chem 7: 08/10/23 08:22 08/10/23 08:22 Labs: Abnormal Lab Results - Last 24 Hours (Table) 08/09/23 08/09/23 08/09/23 Range/Units 13:30 13:32 14:43 WBC (3.8-10.6) k/uL RBC (4.30-5.90) m/uL Hgb (13.0-17.5) gm/dL Hct (39.0-53.0) % MCHC (31.0-37.0) g/dL RDW (11.5-15.5) % Plt Count (150-450) k/uL Neutrophils # (1.3-7.7) k/uL Lymphocytes # (1.0-4.8) k/uL Sodium (137-145) mmol/L BUN (9-20) mg/dL Creatinine (0.66-1.25) mg/dL Glucose (74-99) mg/dL POC Glucose (mg/dL) 48 L 55 L 176 H (70-110) mg/dL Calcium (8.4-10.2) mg/dL AST (17-59) U/L C-Reactive Protein (<1.0) mg/dL Total Protein (6.3-8.2) g/dL Albumin (3.5-5.0) g/dL 08/09/23 08/10/23 08/10/23 Range/Units 15:41 06:10 08:22 WBC 17.5 H (3.8-10.6) k/uL RBC 3.29 L (4.30-5.90) m/uL Hgb 8.4 L (13.0-17.5) gm/dL Hct 27.6 L (39.0-53.0) % MCHC 30.3 L (31.0-37.0) g/dL RDW 15.7 H (11.5-15.5) % Plt Count 494 H (150-450) k/uL Neutrophils # 15.1 H (1.3-7.7) k/uL Lymphocytes # 0.9 L (1.0-4.8) k/uL Sodium (137-145) mmol/L BUN (9-20) mg/dL Creatinine (0.66-1.25) mg/dL Glucose (74-99) mg/dL POC Glucose (mg/dL) 170 H (70-110) mg/dL Calcium (8.4-10.2) mg/dL AST (17-59) U/L C-Reactive Protein (<1.0) mg/dL Total Protein (6.3-8.2) g/dL Albumin 2.3 L (3.5-5.0) g/dL 08/10/23 08/10/23 Range/Units 08:22 11:10 WBC (3.8-10.6) k/uL RBC (4.30-5.90) m/uL Hgb (13.0-17.5) gm/dL Hct (39.0-53.0) % MCHC (31.0-37.0) g/dL RDW (11.5-15.5) % Plt Count (150-450) k/uL Neutrophils # (1.3-7.7) k/uL Lymphocytes # (1.0-4.8) k/uL Sodium 133 L (137-145) mmol/L BUN 8 L (9-20) mg/dL Creatinine 0.28 L (0.66-1.25) mg/dL Glucose 186 H (74-99) mg/dL POC Glucose (mg/dL) 210 H (70-110) mg/dL Calcium 7.7 L (8.4-10.2) mg/dL AST 13 L (17-59) U/L C-Reactive Protein 23.4 H (<1.0) mg/dL Total Protein 5.5 L (6.3-8.2) g/dL Albumin 2.2 L (3.5-5.0) g/dL Assessment and Plan (1) Sacral decubitus ulcer, stage IV Current Visit: Yes Status: Acute Code(s): L89.154 - PRESSURE ULCER OF SACRAL REGION, STAGE 4 SNOMED Code(s): 66093588244743 (2) Type 2 diabetes mellitus with other skin ulcer Current Visit: Yes Status: Acute Code(s): E11.622 - TYPE 2 DIABETES MELLITUS WITH OTHER SKIN ULCER; L98.499 - NON-PRESSURE CHRONIC ULCER OF SKIN OF SITES W UNSP SEVERITY SNOMED Code(s): 364190011
--- NOTE | 2023-08-10 12:49 | XR ---
EXAMINATION TYPE: XR abdomen 1V DATE OF EXAM: 08/10/2023 12:34 PM CLINICAL INDICATION:Male, 63 years old with history of NG placement; [facility] COMPARISON: 324. TECHNIQUE: One radiographic view of the abdomen was obtained. FINDINGS: Postsurgical changes with persistent gaseous dilation of bowel measuring up to 4.5 cm. Naso gastric tube is in appropriate position projecting over the stomach. Surgical clips are present. IMPRESSION: * Similar exam with gaseous dilation of bowel. * Nasogastric tube in appropriate position.
--- NOTE | 2023-08-10 13:09 | P.PN ---
Subjective Progress Note Date: 08/10/23 This is a 63-year-old patient, follows with Dr. Mendez. Chronic stable medical conditions include ADHD, herniated disc lower back, smoker. Sacral wounds. Left AKA. right above-knee amputation by Dr. Zee on April 2023 Recently presented, not being compliant. Smoking cigarettes. Recreational drugs. Patient has not followed up for his PICC line antibiotics last discharge and was discharged on oral Augmentin. Patient has seen Dr. Zee from vascular and wound care Dr. Bahena. Patient's son lives with him. Patient now presents with worsening sacral wound. Eating fair. Continues to smoke cigarettes. Does marijuana. Tired. Some wheezing shortness of breath. June: Patient seen by Dr. Zee. Sacral decubitus wound will be followed by Dr. Pabon's team. For possible diverting colostomy. Patient is on IV Zosyn. Eating well. Urine drug screen was positive for opiates, amphetamines, methamphetamines, marijuana. Home pain medications were resumed. July 1: Patient being scheduled for diverting colostomy on Tuesday with Dr. Pabon. And debridement of sacral ulcer on Tuesday. Continue antibiotics. Patient eating well. July 2: Laying in bed. Comfortable. Son and family visiting. Scheduled for surgery on Tuesday and Tuesday. Eating well. Antibiotics in place. July 3: Comfortable. Tolerating diet. Pending surgery tomorrow for diverting colostomy. Discussed with patient. July 31: Patient underwent diverting colostomy today. With sigmoid colectomy. Left-sided colostomy. Postprocedure tired. Laying in bed. Due for sacral wound debridement tomorrow. August 01: Patient underwent debridement of sacral decubitus ulcer by Dr. Pabon. Had a good supper. manager pediatric looking into discharge planning. August 02: Patient in bed. Son at the bedside. Spoke to the briefcase sewer Vernon to discover that patient actually has insurance. He should build to qualify for rehab. Looking into the same. Antibiotics to continue. PICC line was placed by Dr. Schulz from vascular today. August 03: Saw the patient this morning. Vomited twice. A bit dark-colored. Had dark-colored liquid output in the colostomy bag. Did not eat anything this morning. Diet was scaled back. Abdominal x-ray showed diffuse distention of the stomach and the small bowel. Small bowel was dilated up to 4.5 cm. Later patient is moved to the selective floor for telemetry. NG tube was placed. Dr Pabon from surgery is following. July: 8: NG tube to suction remains in place. Significant dark-colored output. Some output through the colostomy bag. Getting IV fluids. Tired August 05: NG tube remains to suction. Dark output. Some output liquidy through the colostomy bag. Tired. IV fluids. Replace IV potassium. August 06: NG tube remains in place. Output present. Some thickening of the output through the colostomy bag. Tired. Patient being visited by his daughter who lives down the road. She is offering to take care of the patient when he gets discharged. August 07: NG tube remains in place. Colostomy is putting out brown stool. Continue for suction as per surgery. August 08: Saw the patient twice today. In the morning and then later this evening. Patient again started vomiting. TPN was ordered and started this afternoon. I communicated with Janet CHAVES from surgery. Surgical team is suggesting comfort measures/hospice if no improvement. Late in the evening I discussed with the patient. He will also talk to his children. Continues to have nausea. 08/09. Patient seen and examined. Dr. Molina took over care. Currently has NG tube in. Currently on TPN. Discussed with patient regarding goals of care, patient not very keen to make any decision today REVIEW OF SYSTEMS: CONSTITUTIONAL: No fever, no malaise,. CARDIOVASCULAR: No chest pain, no palpitations, no syncope. PULMONARY: No shortness of breath, no cough, GASTROINTESTINAL: Complaining of abdominal pain. NEUROLOGICAL: No headaches, no weakness, PHYSICAL EXAMINATION: GENERAL: The patient is alert and oriented x3, not in any acute distress. Chronically ill looking HEENT: Pupils are round and equally reacting to light. EOMI. No scleral icterus. No conjunctival pallor. Normocephalic, atraumatic. No pharyngeal erythema. No thyromegaly. CARDIOVASCULAR: S1 and S2 present. No murmurs, rubs, or gallops. PULMONARY: Chest is clear to auscultation, no wheezing or crackles. ABDOMEN: Soft, nontender, nondistended, normoactive bowel sounds. No palpable organomegaly. Ostomy MUSCULOSKELETAL: Bilateral AKA EXTREMITIES: No cyanosis, clubbing, or pedal edema. NEUROLOGICAL: Gross neurological examination did not reveal any focal deficits. SKIN: No rashes. Assessment and plan -Acute metabolic encephalopathy from recreational drugs. Resolved Urine drug screen positive for methamphetamines, amphetamines, opiates, marijuana -Acute small bowel obstruction with distended stomach with nausea vomiting. Monitor vital signs monitor CBC Monitor CMP Continue n.p.o. Continue TPN Surgery following -Severe hypokalemia from NG tube aspirate Monitor BMP -Right above-knee amputation by Dr. Zee on May 26. Cultures grew multiple organisms. Bacteremia -Sacral decubitus ulcer. With acute osteomyelitis. Patient has been noncompliant with his antibiotics Followed by Dr. Bahena from wound care center. Dr Pabon schedule -underwent debridement on August 01 Continue wound care Continue IV Unasyn per ID Diverting colostomy- Dr. Pabon on July 31 -Paroxysmal atrial fibrillation: sinus rhythm Amiodarone. Lopressor. -Diabetes mellitus type 2, chronically on insulin Monitor blood sugar levels, continue current regimen -COPD in a current smoker Bronchodilators as needed -Chronic nicotine dependence, cigarette smoker Nicotine patch -Chronic medical debility. Non-ambulatory Labs and medication were reviewed.. Continue same treatment. Continue with symptomatic treatment. Resume home medication. Monitor labs and vitals. DVT and GI prophylaxis. Further recommendations as per clinical course of the patient Dictation was produced using [employer] dictation software. please excuse any grammatical, word or spelling errors. Objective - Vital Signs Vital signs: Vital Signs Temp 99.1 F 08/10/23 08:00 Pulse 94 08/10/23 08:00 Resp 20 08/10/23 08:00 BP 126/73 08/10/23 08:00 Pulse Ox 93 L 08/10/23 10:07 FiO2 21 08/08/23 08:45 Intake & Output 08/09/23 08/10/23 08/10/23 18:59 06:59 18:59 Intake Total 118 Output Total 450 250 50 Balance -332 -250 -50 Weight 58.97 kg Intake: Oral 118 Output: Urine 450 250 Stool 50 Other: Voiding Method Indwelling Catheter Indwelling Catheter Indwelling Catheter - Labs CBC & Chem 7: 08/10/23 08:22 08/10/23 08:22 Labs: Abnormal Lab Results - Last 24 Hours (Table) 08/09/23 08/09/23 08/09/23 Range/Units 13:30 13:32 14:43 WBC (3.8-10.6) k/uL RBC (4.30-5.90) m/uL Hgb (13.0-17.5) gm/dL Hct (39.0-53.0) % MCHC (31.0-37.0) g/dL RDW (11.5-15.5) % Plt Count (150-450) k/uL Neutrophils # (1.3-7.7) k/uL Lymphocytes # (1.0-4.8) k/uL Sodium (137-145) mmol/L BUN (9-20) mg/dL Creatinine (0.66-1.25) mg/dL Glucose (74-99) mg/dL POC Glucose (mg/dL) 48 L 55 L 176 H (70-110) mg/dL Calcium (8.4-10.2) mg/dL AST (17-59) U/L C-Reactive Protein (<1.0) mg/dL Total Protein (6.3-8.2) g/dL Albumin (3.5-5.0) g/dL 08/09/23 08/10/23 08/10/23 Range/Units 15:41 06:10 08:22 WBC 17.5 H (3.8-10.6) k/uL RBC 3.29 L (4.30-5.90) m/uL Hgb 8.4 L (13.0-17.5) gm/dL Hct 27.6 L (39.0-53.0) % MCHC 30.3 L (31.0-37.0) g/dL RDW 15.7 H (11.5-15.5) % Plt Count 494 H (150-450) k/uL Neutrophils # 15.1 H (1.3-7.7) k/uL Lymphocytes # 0.9 L (1.0-4.8) k/uL Sodium (137-145) mmol/L BUN (9-20) mg/dL Creatinine (0.66-1.25) mg/dL Glucose (74-99) mg/dL POC Glucose (mg/dL) 170 H (70-110) mg/dL Calcium (8.4-10.2) mg/dL AST (17-59) U/L C-Reactive Protein (<1.0) mg/dL Total Protein (6.3-8.2) g/dL Albumin 2.3 L (3.5-5.0) g/dL 08/10/23 08/10/23 Range/Units 08:22 11:10 WBC (3.8-10.6) k/uL RBC (4.30-5.90) m/uL Hgb (13.0-17.5) gm/dL Hct (39.0-53.0) % MCHC (31.0-37.0) g/dL RDW (11.5-15.5) % Plt Count (150-450) k/uL Neutrophils # (1.3-7.7) k/uL Lymphocytes # (1.0-4.8) k/uL Sodium 133 L (137-145) mmol/L BUN 8 L (9-20) mg/dL Creatinine 0.28 L (0.66-1.25) mg/dL Glucose 186 H (74-99) mg/dL POC Glucose (mg/dL) 210 H (70-110) mg/dL Calcium 7.7 L (8.4-10.2) mg/dL AST 13 L (17-59) U/L C-Reactive Protein 23.4 H (<1.0) mg/dL Total Protein 5.5 L (6.3-8.2) g/dL Albumin 2.2 L (3.5-5.0) g/dL
[2023-08-10 16:20] LABS: Glucose,Whole Blood 155 mg/dL (70-110)
[2023-08-10] MEDS: 1: MVI, ADULT NO.4 WITH VIT K 10 ML, TRACE (CONC-1ML/DOSE) 1 ML in AMINO ACID 5%-D20W+LY IV SCH (18:32)
[2023-08-10 19:55] LABS: Glucose,Whole Blood 213 mg/dL (70-110)
[2023-08-10] MEDS: FAT EMULSION 20% 250 ML IV SCH (20:44)
[2023-08-11 06:12] LABS: Glucose,Whole Blood 193 mg/dL (70-110)
[2023-08-11 11:18] LABS: Glucose,Whole Blood 220 mg/dL (70-110)
[2023-08-11 12:49] LABS: African American GFR (CKD) >90 (>60 ml/min/1.73 sqM); Anion Gap 5 mmol/L; Blood Urea Nitrogen 10 mg/dL (9-20); Calcium 7.5 mg/dL (8.4-10.2); Carbon Dioxide 27 mmol/L (22-30); Chloride 105 mmol/L (98-107); Glucose 188 mg/dL (74-99); Non-African American GFR(CKD) >90 (>60 ml/min/1.73 sqM); Phosphorus 3.2 mg/dL (2.5-4.5); Potassium 3.3 mmol/L (3.5-5.1); Sodium 137 mmol/L (137-145)
--- NOTE | 2023-08-11 13:15 | P.PN ---
Subjective Progress Note Date: 08/11/23 This is a 63-year-old patient, follows with Dr. Mendez. Chronic stable medical conditions include ADHD, herniated disc lower back, smoker. Sacral wounds. Left AKA. right above-knee amputation by Dr. Zee on April 2023 Recently presented, not being compliant. Smoking cigarettes. Recreational drugs. Patient has not followed up for his PICC line antibiotics last discharge and was discharged on oral Augmentin. Patient has seen Dr. Zee from vascular and wound care Dr. Bahena. Patient's son lives with him. Patient now presents with worsening sacral wound. Eating fair. Continues to smoke cigarettes. Does marijuana. Tired. Some wheezing shortness of breath. June: Patient seen by Dr. Zee. Sacral decubitus wound will be followed by Dr. Pabon's team. For possible diverting colostomy. Patient is on IV Zosyn. Eating well. Urine drug screen was positive for opiates, amphetamines, methamphetamines, marijuana. Home pain medications were resumed. July 1: Patient being scheduled for diverting colostomy on Tuesday with Dr. Pabon. And debridement of sacral ulcer on Tuesday. Continue antibiotics. Patient eating well. July 2: Laying in bed. Comfortable. Son and family visiting. Scheduled for surgery on Tuesday and Tuesday. Eating well. Antibiotics in place. July 3: Comfortable. Tolerating diet. Pending surgery tomorrow for diverting colostomy. Discussed with patient. July 31: Patient underwent diverting colostomy today. With sigmoid colectomy. Left-sided colostomy. Postprocedure tired. Laying in bed. Due for sacral wound debridement tomorrow. August 01: Patient underwent debridement of sacral decubitus ulcer by Dr. Pabon. Had a good supper. intervention manager looking into discharge planning. August 02: Patient in bed. Son at the bedside. Spoke to the block and case maker Vernon to discover that patient actually has insurance. He should build to qualify for rehab. Looking into the same. Antibiotics to continue. PICC line was placed by Dr. Schulz from vascular today. August 03: Saw the patient this morning. Vomited twice. A bit dark-colored. Had dark-colored liquid output in the colostomy bag. Did not eat anything this morning. Diet was scaled back. Abdominal x-ray showed diffuse distention of the stomach and the small bowel. Small bowel was dilated up to 4.5 cm. Later patient is moved to the selective floor for telemetry. NG tube was placed. Dr Pabon from surgery is following. 8: NG tube to suction remains in place. Significant dark-colored output. Some output through the colostomy bag. Getting IV fluids. Tired August 05: NG tube remains to suction. Dark output. Some output liquidy through the colostomy bag. Tired. IV fluids. Replace IV potassium. August 06: NG tube remains in place. Output present. Some thickening of the output through the colostomy bag. Tired. Patient being visited by his daughter who lives down the road. She is offering to take care of the patient when he gets discharged. August 07: NG tube remains in place. Colostomy is putting out brown stool. Continue for suction as per surgery. August 08: Saw the patient twice today. In the morning and then later this evening. Patient again started vomiting. TPN was ordered and started this afternoon. I communicated with Janet CHAVES from surgery. Surgical team is suggesting comfort measures/hospice if no improvement. Late in the evening I discussed with the patient. He will also talk to his children. Continues to have nausea. 08/09. Patient seen and examined. Dr. Molina took over care. Currently has NG tube in. Currently on TPN. Discussed with patient regarding goals of care, patient not very keen to make any decision today 08/10. Patient seen and examined. Patient pulled out his NG tube overnight. Daughter is at the bedside, discussed with her regarding hospice, she is still thinking about it. REVIEW OF SYSTEMS: CONSTITUTIONAL: No fever, no malaise,. CARDIOVASCULAR: No chest pain, no palpitations, no syncope. PULMONARY: No shortness of breath, no cough, GASTROINTESTINAL: Complaining of abdominal pain. NEUROLOGICAL: No headaches, no weakness, PHYSICAL EXAMINATION: GENERAL: The patient is alert and oriented x3, not in any acute distress. Chronically ill looking HEENT: Pupils are round and equally reacting to light. EOMI. No scleral icterus. No conjunctival pallor. Normocephalic, atraumatic. No pharyngeal erythema. No thyromegaly. CARDIOVASCULAR: S1 and S2 present. No murmurs, rubs, or gallops. PULMONARY: Coarse breath sounds bilaterally, no wheezing or crackles. ABDOMEN: Soft, nontender, nondistended, sluggish bowel sounds. No palpable organomegaly. Ostomy MUSCULOSKELETAL: Bilateral AKA EXTREMITIES: No cyanosis, clubbing, or pedal edema. NEUROLOGICAL: Gross neurological examination did not reveal any focal deficits. SKIN: No rashes. Assessment and plan -Acute metabolic encephalopathy from recreational drugs. Resolved Urine drug screen positive for methamphetamines, amphetamines, opiates, marijuana -Acute small bowel obstruction with distended stomach with nausea vomiting. Monitor vital signs monitor CBC Monitor CMP Continue n.p.o. Continue TPN Surgery following -Severe hypokalemia from NG tube aspirate Monitor BMP -Right above-knee amputation by Dr. Zee on May 26. Cultures grew multiple organisms. Bacteremia -Sacral decubitus ulcer. With acute osteomyelitis. Patient has been noncompliant with his antibiotics Followed by Dr. Bahena from wound care center. Dr Pabon schedule -underwent debridement on August 01 Continue wound care Continue IV Unasyn per ID Diverting colostomy- Dr. Pabon on July 31 -Paroxysmal atrial fibrillation: sinus rhythm Amiodarone. Lopressor. -Diabetes mellitus type 2, chronically on insulin Monitor blood sugar levels, continue current regimen -COPD in a current smoker Bronchodilators as needed -Chronic nicotine dependence, cigarette smoker Nicotine patch -Chronic medical debility. Non-ambulatory Labs and medication were reviewed.. Continue same treatment. Continue with sym ptomatic treatment. Resume home medication. Monitor labs and vitals. DVT and GI prophylaxis. Further recommendations as per clinical course of the patient Dictation was produced using [employer] dictation software. please excuse any grammatical, word or spelling errors. Objective - Vital Signs Vital signs: Vital Signs Temp 97.3 F L 08/11/23 08:16 Pulse 79 08/11/23 12:00 Resp 17 08/11/23 12:00 BP 135/77 08/11/23 12:00 Pulse Ox 95 08/11/23 12:00 FiO2 21 08/08/23 08:45 Intake & Output 08/10/23 08/11/23 08/11/23 18:59 06:59 18:59 Output Total 1800 900 Balance -1800 -900 Weight 58.287 kg Output: Gastric Drainage 1250 500 Urine 450 400 Stool 100 Other: Voiding Method Indwelling Catheter Indwelling Catheter Indwelling Catheter - Labs CBC & Chem 7: 08/10/23 08:22 08/11/23 11:54 Labs: Abnormal Lab Results - Last 24 Hours (Table) 08/10/23 08/10/23 08/11/23 Range/Units 16:18 19:53 06:11 Potassium (3.5-5.1) mmol/L Creatinine (0.66-1.25) mg/dL Glucose (74-99) mg/dL POC Glucose (mg/dL) 155 H 213 H 193 H (70-110) mg/dL Calcium (8.4-10.2) mg/dL 08/11/23 08/11/23 Range/Units 11:13 11:54 Potassium 3.3 L (3.5-5.1) mmol/L Creatinine 0.28 L (0.66-1.25) mg/dL Glucose 188 H (74-99) mg/dL POC Glucose (mg/dL) 220 H (70-110) mg/dL Calcium 7.5 L (8.4-10.2) mg/dL
--- NOTE | 2023-08-11 13:40 | P.PN ---
Subjective Progress Note Date: 08/11/23 CHIEF COMPLAINT: Sacral decubitus ulcers HISTORY OF PRESENT ILLNESS: Patient postop day #10 status post diverting colostomy. Patient postop day #9 status post debridement of decubitus ulcer. Patient had NG tube placed throughout the day yesterday and pulled the NG tube out during the night. Since then patient has had no vomiting. No output through the ostomy. And now having drainage from the incision site. Patient had temp yesterday afternoon at 100.4 potassium 3.3 PHYSICAL EXAM: VITAL SIGNS: Reviewed. GENERAL: no acute distress. ABDOMEN: Mildly distended. No stool in ostomy bag. Incision site with purulent drainage noted about above the umbilicus ASSESSMENT: 1. Stage IV sacral decubitus ulcers 2. Sepsis 3. Hyponatremia 4. Diabetes mellitus 5. Medical noncompliance 6. Ileus 7. Hypokalemia PLAN: -Patient and family met with hospice again today. At this time patient dec lining hospice -CODE STATUS is DNR -Recommend comfort care measures -Would recommend NG tube placement. Patient pulled out NG tube again -Keep patient n.p.o. -TPN for nutrition support -Continue reglan -Continue IV fluids -Continue pain management -Antibiotics per ID service -Continue local wound care per wound care service -2 rosetta removed above the umbilicus. Purulent drainage expelled. Culture obtained. Aquacel packing placed in open incision -Pharmacy to replace potassium Physician Grain Receiver note has been reviewed by physician. Signing provider agrees with the documented findings, assessment, and plan of care. Objective - Vital Signs Vital signs: Vital Signs Temp 97.3 F L 08/11/23 08:16 Pulse 79 08/11/23 12:00 Resp 17 08/11/23 12:00 BP 135/77 08/11/23 12:00 Pulse Ox 95 08/11/23 12:00 FiO2 21 08/08/23 08:45 Intake & Output 08/10/23 08/11/23 08/11/23 18:59 06:59 18:59 Output Total 1800 900 Balance -1800 -900 Weight 58.287 kg Output: Gastric Drainage 1250 500 Urine 450 400 Stool 100 Other: Voiding Method Indwelling Catheter Indwelling Catheter Indwelling Catheter - Labs CBC & Chem 7: 08/10/23 08:22 08/11/23 11:54 Labs: Abnormal Lab Results - Last 24 Hours (Table) 08/10/23 08/10/23 08/11/23 Range/Units 16:18 19:53 06:11 Potassium (3.5-5.1) mmol/L Creatinine (0.66-1.25) mg/dL Glucose (74-99) mg/dL POC Glucose (mg/dL) 155 H 213 H 193 H (70-110) mg/dL Calcium (8.4-10.2) mg/dL 08/11/23 08/11/23 Range/Units 11:13 11:54 Potassium 3.3 L (3.5-5.1) mmol/L Creatinine 0.28 L (0.66-1.25) mg/dL Glucose 188 H (74-99) mg/dL POC Glucose (mg/dL) 220 H (70-110) mg/dL Calcium 7.5 L (8.4-10.2) mg/dL
--- NOTE | 2023-08-11 14:28 | P.PN ---
Subjective Progress Note Date: 08/10/23 Principal diagnosis: Reason for follow-up is infected sacral pressure ulcer Patient is a 63-year-old male with a past medical history significant for diabetes mellitus in this patient who did have a history of PAD s/p bilateral [id number] amputation and did have a stage IV sacral pressure ulcer that has been there for a few months, noncompliance with the previous IV and local care treatment presented to hospital with worsening wound and fever, Patient is status post sigmoid colectomy with end colostomy completed on 08/01/2023 and the patient is status post excision debridement of his sacral pressure ulcer by general surgery completed on 08/02/2023 On today's evaluation that is 08/10/2023, Patient is afebrile patient is currently on room air and denies having any shortness of breath, the patient NG is back slightly lethargic and did not answer any question no output in the colostomy while in the changes reported. Patient white count is up to 17.5 today, creatinine 0.28 Objective - Vital Signs Vital signs: Vital Signs Temp 100.4 F H 08/10/23 13:25 Pulse 98 08/10/23 13:25 Resp 15 08/10/23 13:25 BP 169/77 08/10/23 13:25 Pulse Ox 90 L 08/10/23 13:25 FiO2 21 08/08/23 08:45 Intake & Output 08/09/23 08/10/23 08/10/23 18:59 06:59 18:59 Intake Total 118 Output Total 450 250 50 Balance -332 -250 -50 Weight 58.97 kg Intake: Oral 118 Output: Urine 450 250 Stool 50 Other: Voiding Method Indwelling Catheter Indwelling Catheter Indwelling Catheter - Exam GENERAL DESCRIPTION: Middle-age male lying in bed in no distress RESPIRATORY SYSTEM: Unlabored breathing , decreased breath sounds at bases HEART: S1 S2 regular rate and rhythm , ABDOMEN: Soft , no tenderness EXTREMITIES: Bilateral AKA stump no redness or drainage - Labs CBC & Chem 7: 08/10/23 08:22 08/11/23 11:54 Labs: Abnormal Lab Results - Last 24 Hours (Table) 08/09/23 08/09/23 08/10/23 Range/Units 14:43 15:41 06:10 WBC (3.8-10.6) k/uL RBC (4.30-5.90) m/uL Hgb (13.0-17.5) gm/dL Hct (39.0-53.0) % MCHC (31.0-37.0) g/dL RDW (11.5-15.5) % Plt Count (150-450) k/uL Neutrophils # (1.3-7.7) k/uL Lymphocytes # (1.0-4.8) k/uL Sodium (137-145) mmol/L BUN (9-20) mg/dL Creatinine (0.66-1.25) mg/dL Glucose (74-99) mg/dL POC Glucose (mg/dL) 176 H 170 H (70-110) mg/dL Calcium (8.4-10.2) mg/dL AST (17-59) U/L C-Reactive Protein (<1.0) mg/dL Total Protein (6.3-8.2) g/dL Albumin 2.3 L (3.5-5.0) g/dL 08/10/23 08/10/23 08/10/23 Range/Units 08:22 08:22 11:10 WBC 17.5 H (3.8-10.6) k/uL RBC 3.29 L (4.30-5.90) m/uL Hgb 8.4 L (13.0-17.5) gm/dL Hct 27.6 L (39.0-53.0) % MCHC 30.3 L (31.0-37.0) g/dL RDW 15.7 H (11.5-15.5) % Plt Count 494 H (150-450) k/uL Neutrophils # 15.1 H (1.3-7.7) k/uL Lymphocytes # 0.9 L (1.0-4.8) k/uL Sodium 133 L (137-145) mmol/L BUN 8 L (9-20) mg/dL Creatinine 0.28 L (0.66-1.25) mg/dL Glucose 186 H (74-99) mg/dL POC Glucose (mg/dL) 210 H (70-110) mg/dL Calcium 7.7 L (8.4-10.2) mg/dL AST 13 L (17-59) U/L C-Reactive Protein 23.4 H (<1.0) mg/dL Total Protein 5.5 L (6.3-8.2) g/dL Albumin 2.2 L (3.5-5.0) g/dL Assessment and Plan (1) Sacral decubitus ulcer, stage IV Current Visit: Yes Status: Acute Code(s): L89.154 - PRESSURE ULCER OF SACRAL REGION, STAGE 4 SNOMED Code(s): 44417736334932 (2) Sacral osteomyelitis Current Visit: No Status: Acute Code(s): M46.28 - OSTEOMYELITIS OF VERTEBRA, SACRAL AND SACROCOCCYGEAL REGION SNOMED Code(s): 973778139 (3) Positive blood culture Current Visit: Yes Status: Acute Code(s): R78.81 - BACTEREMIA SNOMED Code(s): 405287277 Plan: 1patient was in the hospital with sepsis in this patient who did have a fever tachycardia elevated white count source is infected sacral pressure ulcer likely stage IV with underlying osteomyelitis in this patient wound has been there for couple of months now and noncompliance with treatment in the outpatient setting 2-positive blood culture more likely related to his infected sacral pressure ulcer, blood culture has been repeated to document clearance of bacteremia and repeat blood culture negative 3-The patient local culture grew E. coli and Proteus and beta-hemolytic Streptococcus 4-patient is status post diverting colostomy and surgical debridement of his large sacral pressure ulcer 5-patient did have a PICC line placement on 08/03/2023 6patient is afebrile, and does not look toxic white count will monitor closely and we will continue the patient on Unasyn, discussed with admitting team Dictation was produced using [employer] dictation software. please excuse any grammatical, word or spelling errors. Time with Patient: Less than 30
--- NOTE | 2023-08-11 14:28 | P.PN ---
Subjective Progress Note Date: 08/11/23 Principal diagnosis: Reason for follow-up is infected sacral pressure ulcer Patient is a 63-year-old male with a past medical history significant for diabetes mellitus in this patient who did have a history of PAD s/p bilateral [id number] amputation and did have a stage IV sacral pressure ulcer that has been there for a few months, noncompliance with the previous IV and local care treatment presented to hospital with worsening wound and fever, Patient is status post sigmoid colectomy with end colostomy completed on 08/01/2023 and the patient is status post excision debridement of his sacral pressure ulcer by general surgery completed on 08/02/2023 On today's evaluation that is 08/11/2023, patient has been afebrile, patient is breathing comfortably and is currently on room air, patient is more awake and alert today denies having any significant cough no chest pain shortness of breath, patient did pull out his NG earlier this morning however denies nausea vomiting or diarrhea and abdominal pain is controlled no output in the colostomy bag No CBC was done today his creatinine 0.28 Objective - Vital Signs Vital signs: Vital Signs Temp 97.3 F L 08/11/23 08:16 Pulse 79 08/11/23 12:00 Resp 17 08/11/23 12:00 BP 135/77 08/11/23 12:00 Pulse Ox 95 08/11/23 12:00 FiO2 21 08/08/23 08:45 Intake & Output 08/10/23 08/11/23 08/11/23 18:59 06:59 18:59 Output Total 1800 900 Balance -1800 -900 Weight 58.287 kg Output: Gastric Drainage 1250 500 Urine 450 400 Stool 100 Other: Voiding Method Indwelling Catheter Indwelling Catheter Indwelling Catheter - Exam GENERAL DESCRIPTION: Middle-age male lying in bed in no distress RESPIRATORY SYSTEM: Unlabored breathing , decreased breath sounds at bases HEART: S1 S2 regular rate and rhythm , ABDOMEN: Soft , no tenderness EXTREMITIES: Bilateral AKA stump no redness or drainage - Labs CBC & Chem 7: 08/10/23 08:22 08/11/23 11:54 Labs: Abnormal Lab Results - Last 24 Hours (Table) 08/10/23 08/10/23 08/11/23 Range/Units 16:18 19:53 06:11 Potassium (3.5-5.1) mmol/L Creatinine (0.66-1.25) mg/dL Glucose (74-99) mg/dL POC Glucose (mg/dL) 155 H 213 H 193 H (70-110) mg/dL Calcium (8.4-10.2) mg/dL 08/11/23 08/11/23 Range/Units 11:13 11:54 Potassium 3.3 L (3.5-5.1) mmol/L Creatinine 0.28 L (0.66-1.25) mg/dL Glucose 188 H (74-99) mg/dL POC Glucose (mg/dL) 220 H (70-110) mg/dL Calcium 7.5 L (8.4-10.2) mg/dL Assessment and Plan (1) Sacral decubitus ulcer, stage IV Current Visit: Yes Status: Acute Code(s): L89.154 - PRESSURE ULCER OF SACRAL REGION, STAGE 4 SNOMED Code(s): 42689576000662 (2) Sacral osteomyelitis Current Visit: No Status: Acute Code(s): M46.28 - OSTEOMYELITIS OF VERTEBRA, SACRAL AND SACROCOCCYGEAL REGION SNOMED Code(s): 071587681 (3) Positive blood culture Current Visit: Yes Status: Acute Code(s): R78.81 - BACTEREMIA SNOMED Code(s): 269728271 Plan: 1patient was in the hospital with sepsis in this patient who did have a fever tachycardia elevated white count source is infected sacral pressure ulcer likely stage IV with underlying osteomyelitis in this patient wound has been there for couple of months now and noncompliance with treatment in the outpatient setting 2-positive blood culture more likely related to his infected sacral pressure ulcer, blood culture has been repeated to document clearance of bacteremia and repeat blood culture negative 3-The patient local culture grew E. coli and Proteus and beta-hemolytic Streptococcus 4-patient is status post diverting colostomy and surgical debridement of his large sacral pressure ulcer 5-patient did have a PICC line placement on 08/03/2023 6patient is afebrile, we will repeat his CBC with a.m. lab to make sure white count is trending down continue with Unasyn Daughter at the bedside multiple questions answered Dictation was produced using [employer] dictation software. please excuse any g rammatical, word or spelling errors. Time with Patient: Less than 30
[2023-08-11] MEDS: POTASSIUM CHLORIDE 20 MEQ in WATER FOR INJECTION 1 100ML.BAG IVPB SCH (14:48)
[2023-08-11 16:27] LABS: Glucose,Whole Blood 208 mg/dL (70-110)
[2023-08-11 20:10] LABS: Glucose,Whole Blood 186 mg/dL (70-110)
[2023-08-12 06:28] LABS: Glucose,Whole Blood 172 mg/dL (70-110)
[2023-08-12 11:07] LABS: Basophils # (A) 0.1 k/uL (0-0.2); Basophils % (A) 1 %; Eosinophils # (A) 0.6 k/uL (0-0.7); Eosinophils % (A) 7 %; HGB 8.5 gm/dL (13.0-17.5); Hypochromasia Marked; Lymphocytes # (A) 1.3 k/uL (1.0-4.8); Lymphocytes % (A) 14 %; MCH 24.9 pg (25.0-35.0); MCHC 29.2 g/dL (31.0-37.0); MCV 85.1 fL (80.0-100.0); Mean Platelet Volume 6.9; Monocytes # (A) 0.5 k/uL (0-1.0); Monocytes % (A) 5 %; Neutrophils # (A) 6.9 k/uL (1.3-7.7); Neutrophils % (A) 73 %; Platelet Count 480 k/uL (150-450); RBC 3.41 m/uL (4.30-5.90); RDW 15.7 % (11.5-15.5); WBC 9.4 k/uL (3.8-10.6)
[2023-08-12 11:21] LABS: Glucose,Whole Blood 226 mg/dL (70-110)
[2023-08-12 11:24] LABS: ALT 9 U/L (4-49); AST 16 U/L (17-59); African American GFR (CKD) >90 (>60 ml/min/1.73 sqM); Albumin 2.1 g/dL (3.5-5.0); Alkaline Phosphatase 67 U/L (38-126); Anion Gap 4 mmol/L; Blood Urea Nitrogen 14 mg/dL (9-20); Calcium 7.6 mg/dL (8.4-10.2); Carbon Dioxide 25 mmol/L (22-30); Chloride 105 mmol/L (98-107); Glucose 221 mg/dL (74-99); Non-African American GFR(CKD) >90 (>60 ml/min/1.73 sqM); Phosphorus 3.6 mg/dL (2.5-4.5); Potassium 4.2 mmol/L (3.5-5.1); Sodium 134 mmol/L (137-145); Total Bilirubin 0.3 mg/dL (0.2-1.3); Total Protein 5.5 g/dL (6.3-8.2)
[2023-08-12 11:54] VITALS: BMI 36.0
--- NOTE | 2023-08-12 12:55 | P.PN ---
Subjective Progress Note Date: 08/12/23 This is a 63-year-old patient, follows with Dr. Mendez. Chronic stable medical conditions include ADHD, herniated disc lower back, smoker. Sacral wounds. Left AKA. right above-knee amputation by Dr. Zee on April 2023 Recently presented, not being compliant. Smoking cigarettes. Recreational drugs. Patient has not followed up for his PICC line antibiotics last discharge and was discharged on oral Augmentin. Patient has seen Dr. Zee from vascular and wound care Dr. Bahena. Patient's son lives with him. Patient now presents with worsening sacral wound. Eating fair. Continues to smoke cigarettes. Does marijuana. Tired. Some wheezing shortness of breath. June: Patient seen by Dr. Zee. Sacral decubitus wound will be followed by Dr. Pabon's team. For possible diverting colostomy. Patient is on IV Zosyn. Eating well. Urine drug screen was positive for opiates, amphetamines, methamphetamines, marijuana. Home pain medications were resumed. July 1: Patient being scheduled for diverting colostomy on Tuesday with Dr. Pabon. And debridement of sacral ulcer on Tuesday. Continue antibiotics. Patient eating well. July 2: Laying in bed. Comfortable. Son and family visiting. Scheduled for surgery on Tuesday and Tuesday. Eating well. Antibiotics in place. July 3: Comfortable. Tolerating diet. Pending surgery tomorrow for diverting colostomy. Discussed with patient. July 31: Patient underwent diverting colostomy today. With sigmoid colectomy. Left-sided colostomy. Postprocedure tired. Laying in bed. Due for sacral wound debridement tomorrow. August 01: Patient underwent debridement of sacral decubitus ulcer by Dr. Pabon. Had a good supper. business analyst project manager looking into discharge planning. August 02: Patient in bed. Son at the bedside. Spoke to the case assistant Vernon to discover that patient actually has insurance. He should build to qualify for rehab. Looking into the same. Antibiotics to continue. PICC line was placed by Dr. Schulz from vascular today. August 03: Saw the patient this morning. Vomited twice. A bit dark-colored. Had dark-colored liquid output in the colostomy bag. Did not eat anything this morning. Diet was scaled back. Abdominal x-ray showed diffuse distention of the stomach and the small bowel. Small bowel was dilated up to 4.5 cm. Later patient is moved to the [facility] floor for telemetry. NG tube was placed. Dr Pabon from surgery is following. : NG tube to suction remains in place. Significant dark-colored output. Some output through the colostomy bag. Getting IV fluids. Tired August 05: NG tube remains to suction. Dark output. Some output liquidy through the colostomy bag. Tired. IV fluids. Replace IV potassium. August 06: NG tube remains in place. Output present. Some thickening of the output through the colostomy bag. Tired. Patient being visited by his daughter who lives down the road. She is offering to take care of the patient when he gets discharged. August 07: NG tube remains in place. Colostomy is putting out brown stool. Continue for suction as per surgery. August 08: Saw the patient twice today. In the morning and then later this evening. Patient again started vomiting. TPN was ordered and started this afternoon. I communicated with Janet CHAVES from surgery. Surgical team is suggesting comfort measures/hospice if no improvement. Late in the evening I discussed with the patient. He will also talk to his children. Continues to have nausea. 08/09. Patient seen and examined. Dr. Molina took over care. Currently has NG tube in. Currently on TPN. Discussed with patient regarding goals of care, patient not very keen to make any decision today 08/10. Patient seen and examined. Patient pulled out his NG tube overnight. Daughter is at the bedside, discussed with her regarding hospice, she is still thinking about it. 08/11. Patient seen and examined. Still not having much output from ostomy. Currently n.p.o., currently on TPN. Discussed with him again regarding hospice, patient states he is still not ready to make a decision. Lab work done this morning showed WBC 9.4, hemoglobin 8.5, sodium 134, potassium 4.2, BUN 14, creatinine 0.28, REVIEW OF SYSTEMS: CONSTITUTIONAL: No fever, no malaise,. CARDIOVASCULAR: No chest pain, no palpitations, no syncope. PULMONARY: No shortness of breath, no cough, GASTROINTESTINAL: Complaining of abdominal pain. NEUROLOGICAL: No headaches, no weakness, PHYSICAL EXAMINATION: GENERAL: The patient is alert and oriented x3, not in any acute distress. Chronically ill looking HEENT: Pupils are round and equally reacting to light. EOMI. No scleral icterus. No conjunctival pallor. Normocephalic, atraumatic. No pharyngeal erythema. No thyromegaly. CARDIOVASCULAR: S1 and S2 present. No murmurs, rubs, or gallops. PULMONARY: Coarse breath sounds bilaterally, no wheezing or crackles. ABDOMEN: Soft, nontender, nondistended, sluggish bowel sounds. No palpable organomegaly. Ostomy MUSCULOSKELETAL: Bilateral AKA EXTREMITIES: No cyanosis, clubbing, or pedal edema. NEUROLOGICAL: Gross neurological examination did not reveal any focal deficits. SKIN: No rashes. Assessment and plan -Acute metabolic encephalopathy from recreational drugs. Resolved Urine drug screen positive for methamphetamines, amphetamines, opiates, marijuana -Acute small bowel obstruction with distended stomach with nausea vomiting. Monitor vital signs monitor CBC Monitor CMP Continue n.p.o. Continue TPN Surgery following -Severe hypokalemia from NG tube aspirate Monitor BMP -Right above-knee amputation by Dr. Zee on May 26. Cultures grew multiple organisms. Bacteremia -Sacral decubitus ulcer. With acute osteomyelitis. Patient has been noncompliant with his antibiotics Followed by Dr. Bahena from wound care center. Dr Pabon schedule -underwent debridement on August 01 Continue wound care Continue IV Unasyn per ID Diverting colostomy- Dr. Pabon on July 31 -Paroxysmal atrial fibrillation: sinus rhythm Amiodarone. Lopressor. -Diabetes mellitus type 2, chronically on insulin Monitor blood sugar levels, continue current regimen -COPD in a current smoker Bronchodilators as needed -Chronic nicotine dependence, cigarette smoker Nicotine patch -Chronic medical debility. Non-ambulatory Labs and medication were reviewed.. Continue same treatment. Continue with symptomatic treatment. Resume home medication. Monitor labs and vitals. DVT and GI prophylaxis. Further recommendations as per clinical course of the patient Dictation was produced using [employer] dictation software. please excuse any grammatical, word or spelling errors. Objective - Vital Signs Vital signs: Vital Signs Temp 98.1 F 08/12/23 08:54 Pulse 74 08/12/23 08:54 Resp 18 08/12/23 08:54 BP 132/66 08/12/23 08:54 Pulse Ox 97 08/12/23 08:54 FiO2 21 08/08/23 08:45 Intake & Output 08/11/23 08/12/23 08/12/23 18:59 06:59 18:59 Intake Total 1011 Output Total 500 950 Balance -500 61 Weight 52.5 kg 41 kg 41 kg Intake: Intake, IV Titration 1011 Amount Mvi, Adult No.4 with Vit 1011 K 10 ml Trace (Conc-1Ml/ Dose) 1 ml In Amino Acid 5%-D20w+Lytes*E* 1,000 ml @ 65 mls/hr IV .BY DURATION [facility] Rx#: [id number] Output: Urine 500 950 Other: Voiding Method Indwelling Catheter Indwelling Catheter Indwelling Catheter - Labs CBC & Chem 7: 08/12/23 10:49 08/12/23 10:49 Labs: Abnormal Lab Results - Last 24 Hours (Table) 08/11/23 08/11/23 08/12/23 Range/Units 16:24 20:09 06:27 RBC (4.30-5.90) m/uL Hgb (13.0-17.5) gm/dL Hct (39.0-53.0) % MCH (25.0-35.0) pg MCHC (31.0-37.0) g/dL RDW (11.5-15.5) % Plt Count (150-450) k/uL Sodium (137-145) mmol/L Creatinine (0.66-1.25) mg/dL Glucose (74-99) mg/dL POC Glucose (mg/dL) 208 H 186 H 172 H (70-110) mg/dL Calcium (8.4-10.2) mg/dL AST (17-59) U/L Total Protein (6.3-8.2) g/dL Albumin (3.5-5.0) g/dL 08/12/23 08/12/23 08/12/23 Range/Units 10:49 10:49 11:18 RBC 3.41 L (4.30-5.90) m/uL Hgb 8.5 L (13.0-17.5) gm/dL Hct 29.0 L (39.0-53.0) % MCH 24.9 L (25.0-35.0) pg MCHC 29.2 L (31.0-37.0) g/dL RDW 15.7 H (11.5-15.5) % Plt Count 480 H (150-450) k/uL Sodium 134 L (137-145) mmol/L Creatinine 0.28 L (0.66-1.25) mg/dL Glucose 221 H (74-99) mg/dL POC Glucose (mg/dL) 226 H (70-110) mg/dL Calcium 7.6 L (8.4-10.2) mg/dL AST 16 L (17-59) U/L Total Protein 5.5 L (6.3-8.2) g/dL Albumin 2.1 L (3.5-5.0) g/dL Microbiology - Last 24 Hours (Table) 08/11/23 11:15 Gram Stain - Preliminary Abdomen
--- NOTE | 2023-08-12 13:13 | P.PN ---
Subjective Progress Note Date: 08/12/23 Principal diagnosis: Reason for follow-up is infected sacral pressure ulcer Patient is a 63-year-old male with a past medical history significant for diabetes mellitus in this patient who did have a history of PAD s/p bilateral [id number] amputation and did have a stage IV sacral pressure ulcer that has been there for a few months, noncompliance with the previous IV and local care treatment presented to hospital with worsening wound and fever, Patient is status post sigmoid colectomy with end colostomy completed on 08/01/2023 and the patient is status post excision debridement of his sacral pressure ulcer by general surgery completed on 08/02/2023 On today's evaluation that is 08/12/2023,the patient denies any fever or any chills, patient is breathing comfortably on room air, the patient denies chest pain shortness of breath and no significant cough, patient denies abdominal pain, no nausea vomiting still no output in the colostomy asking for something to drink. The patient white count normalized to 9.4 creatinine 0.28 Objective - Vital Signs Vital signs: Vital Signs Temp 98.1 F 08/12/23 08:54 Pulse 74 08/12/23 08:54 Resp 18 08/12/23 08:54 BP 132/66 08/12/23 08:54 Pulse Ox 97 08/12/23 08:54 FiO2 21 08/08/23 08:45 Intake & Output 08/11/23 08/12/23 08/12/23 18:59 06:59 18:59 Intake Total 1011 Output Total 500 950 Balance -500 61 Weight 52.5 kg 41 kg 41 kg Intake: Intake, IV Titration 1011 Amount Mvi, Adult No.4 with Vit 1011 K 10 ml Trace (Conc-1Ml/ Dose) 1 ml In Amino Acid 5%-D20w+Lytes*E* 1,000 ml @ 65 mls/hr IV .BY DURATION [facility] Rx#: [id number] Output: Urine 500 950 Other: Voiding Method Indwelling Catheter Indwelling Catheter Indwelling Catheter - Exam GENERAL DESCRIPTION: Middle-age male lying in bed in no distress RESPIRATORY SYSTEM: Unlabored breathing , decreased breath sounds at bases HEART: S1 S2 regular rate and rhythm , ABDOMEN: Soft , no tenderness EXTREMITIES: Bilateral AKA stump no redness or drainage - Labs CBC & Chem 7: 08/12/23 10:49 08/12/23 10:49 Labs: Abnormal Lab Results - Last 24 Hours (Table) 08/11/23 08/11/23 08/12/23 Range/Units 16:24 20:09 06:27 RBC (4.30-5.90) m/uL Hgb (13.0-17.5) gm/dL Hct (39.0-53.0) % MCH (25.0-35.0) pg MCHC (31.0-37.0) g/dL RDW (11.5-15.5) % Plt Count (150-450) k/uL Sodium (137-145) mmol/L Creatinine (0.66-1.25) mg/dL Glucose (74-99) mg/dL POC Glucose (mg/dL) 208 H 186 H 172 H (70-110) mg/dL Calcium (8.4-10.2) mg/dL AST (17-59) U/L Total Protein (6.3-8.2) g/dL Albumin (3.5-5.0) g/dL 08/12/23 08/12/23 08/12/23 Range/Units 10:49 10:49 11:18 RBC 3.41 L (4.30-5.90) m/uL Hgb 8.5 L (13.0-17.5) gm/dL Hct 29.0 L (39.0-53.0) % MCH 24.9 L (25.0-35.0) pg MCHC 29.2 L (31.0-37.0) g/dL RDW 15.7 H (11.5-15.5) % Plt Count 480 H (150-450) k/uL Sodium 134 L (137-145) mmol/L Creatinine 0.28 L (0.66-1.25) mg/dL Glucose 221 H (74-99) mg/dL POC Glucose (mg/dL) 226 H (70-110) mg/dL Calcium 7.6 L (8.4-10.2) mg/dL AST 16 L (17-59) U/L Total Protein 5.5 L (6.3-8.2) g/dL Albumin 2.1 L (3.5-5.0) g/dL Microbiology - Last 24 Hours (Table) 08/11/23 11:15 Gram Stain - Preliminary Abdomen Assessment and Plan (1) Sacral decubitus ulcer, stage IV Current Visit: Yes Status: Acute Code(s): L89.154 - PRESSURE ULCER OF SACRAL REGION, STAGE 4 SNOMED Code(s): 59802855118243 (2) Sacral osteomyelitis Current Visit: No Status: Acute Code(s): M46.28 - OSTEOMYELITIS OF VERTEBRA, SACRAL AND SACROCOCCYGEAL REGION SNOMED Code(s): 270675557 (3) Positive blood culture Current Visit: Yes Status: Acute Code(s): R78.81 - BACTEREMIA SNOMED Code(s): 840950786 Plan: 1patient was in the hospital with sepsis in this patient who did have a fever tachycardia elevated white count source is infected sacral pressure ulcer likely stage IV with underlying osteomyelitis in this patient wound has been there for couple of months now and noncompliance with treatment in the outpatient setting 2-positive blood culture more likely related to his infected sacral pressure ulcer, blood culture has been repeated to document clearance of bacteremia and repeat blood culture negative 3-The patient local culture grew E. coli and Proteus and beta-hemolytic Streptococcus 4-patient is status post diverting colostomy and surgical debridement of his large sacral pressure ulcer 5-patient did have a PICC line placement on 08/03/2023 6patient is afebrile, and the patient white count has normalized to continue with the Unasyn and monitor clinical course closely Dictation was produced using [employer] dictation software. please excuse any grammatical, word or spelling errors. Time with Patient: Less than 30
--- NOTE | 2023-08-12 13:18 | P.PN ---
Subjective Progress Note Date: 08/12/23 CHIEF COMPLAINT: Sacral decubitus ulcers HISTORY OF PRESENT ILLNESS: Patient postop day #11 status post diverting colostomy. Patient postop day #10 status post debridement of decubitus ulcer. Patient has had no output through his ostomy. He did pull the NG tube the other night. And continues to refuse NG tube placement. His vomiting has subsided. He has no nausea currently. He remains NPO. Has TPN for nutrition support. Patient and family met with hospice again yesterday. Patient is declining hospice at this time. WBC is down from 17.5-9.4 potassium is better at 4.2 sodium 134 PHYSICAL EXAM: VITAL SIGNS: Reviewed. GENERAL: no acute distress. ABDOMEN: Mildly distended. No stool in ostomy bag. Minimal drainage noted on abdominal dressing. Incisional wick in place ASSESSMENT: 1. Stage IV sacral decubitus ulcers with osteomyelitis 2. Sepsis 3. Hyponatremia 4. Diabetes mellitus 5. Medical noncompliance 6. Ileus 7. Hypokalemia improved 8. Infection at abdominal incision site PLAN: -Patient and family met with hospice yesterday. At this time patient declining hospice -CODE STATUS is DNR -Recommend comfort care measures -Would recommend NG tube placement. Patient refuses NG tube -Keep patient n.p.o. -TPN for nutrition support -Continue reglan -Continue IV fluids -Continue pain management -Antibiotics per ID service -Continue local wound care per wound care service for sacral ulcer -Continue local wound care to abdominal incision Physician Psychology Professor note has been reviewed by physician. Signing provider agrees with the documented findings, assessment, and plan of care. Objective - Vital Signs Vital signs: Vital Signs Temp 98.1 F 08/12/23 08:54 Pulse 74 08/12/23 08:54 Resp 18 08/12/23 08:54 BP 132/66 08/12/23 08:54 Pulse Ox 97 08/12/23 08:54 FiO2 21 08/08/23 08:45 Intake & Output 08/11/23 08/12/23 08/12/23 18:59 06:59 18:59 Intake Total 1011 Output Total 500 950 Balance -500 61 Weight 52.5 kg 41 kg 41 kg Intake: Intake, IV Titration 1011 Amount Mvi, Adult No.4 with Vit 1011 K 10 ml Trace (Conc-1Ml/ Dose) 1 ml In Amino Acid 5%-D20w+Lytes*E* 1,000 ml @ 65 mls/hr IV .BY DURATION [facility] Rx#: [id number] Output: Urine 500 950 Other: Voiding Method Indwelling Catheter Indwelling Catheter Indwelling Catheter - Labs CBC & Chem 7: 08/12/23 10:49 08/12/23 10:49 Labs: Abnormal Lab Results - Last 24 Hours (Table) 08/11/23 08/11/23 08/12/23 Range/Units 16:24 20:09 06:27 RBC (4.30-5.90) m/uL Hgb (13.0-17.5) gm/dL Hct (39.0-53.0) % MCH (25.0-35.0) pg MCHC (31.0-37.0) g/dL RDW (11.5-15.5) % Plt Count (150-450) k/uL Sodium (137-145) mmol/L Creatinine (0.66-1.25) mg/dL Glucose (74-99) mg/dL POC Glucose (mg/dL) 208 H 186 H 172 H (70-110) mg/dL Calcium (8.4-10.2) mg/dL AST (17-59) U/L Total Protein (6.3-8.2) g/dL Albumin (3.5-5.0) g/dL 08/12/23 08/12/23 08/12/23 Range/Units 10:49 10:49 11:18 RBC 3.41 L (4.30-5.90) m/uL Hgb 8.5 L (13.0-17.5) gm/dL Hct 29.0 L (39.0-53.0) % MCH 24.9 L (25.0-35.0) pg MCHC 29.2 L (31.0-37.0) g/dL RDW 15.7 H (11.5-15.5) % Plt Count 480 H (150-450) k/uL Sodium 134 L (137-145) mmol/L Creatinine 0.28 L (0.66-1.25) mg/dL Glucose 221 H (74-99) mg/dL POC Glucose (mg/dL) 226 H (70-110) mg/dL Calcium 7.6 L (8.4-10.2) mg/dL AST 16 L (17-59) U/L Total Protein 5.5 L (6.3-8.2) g/dL Albumin 2.1 L (3.5-5.0) g/dL Microbiology - Last 24 Hours (Table) 08/11/23 11:15 Gram Stain - Preliminary Abdomen
[2023-08-12 16:16] LABS: Glucose,Whole Blood 217 mg/dL (70-110)
[2023-08-12 19:53] LABS: Glucose,Whole Blood 134 mg/dL (70-110)
[2023-08-12] MEDS: MVI, ADULT NO.4 WITH VIT K 10 ML, TRACE (CONC-1ML/DOSE) 1 ML in AMINO ACID 5%-D20W+LYTE... IV SCH (20:01)
[2023-08-13 06:26] LABS: Glucose,Whole Blood 146 mg/dL (70-110)
[2023-08-13 08:18] LABS: Basophils # (A) 0.1 k/uL (0-0.2); Basophils % (A) 1 %; Eosinophils # (A) 0.6 k/uL (0-0.7); Eosinophils % (A) 7 %; HCT 26.8 % (39.0-53.0); HGB 8.3 gm/dL (13.0-17.5); Hypochromasia Marked; Lymphocytes # (A) 1.2 k/uL (1.0-4.8); Lymphocytes % (A) 15 %; MCH 25.9 pg (25.0-35.0); MCHC 30.9 g/dL (31.0-37.0); MCV 83.7 fL (80.0-100.0); Mean Platelet Volume 6.8; Monocytes # (A) 0.5 k/uL (0-1.0); Monocytes % (A) 6 %; Neutrophils # (A) 5.7 k/uL (1.3-7.7); Neutrophils % (A) 70 %; Platelet Count 476 k/uL (150-450); RDW 15.7 % (11.5-15.5); WBC 8.2 k/uL (3.8-10.6)
[2023-08-13 08:43] LABS: ALT 17 U/L (4-49); AST 38 U/L (17-59); African American GFR (CKD) >90 (>60 ml/min/1.73 sqM); Albumin 2.1 g/dL (3.5-5.0); Alkaline Phosphatase 90 U/L (38-126); Anion Gap 5 mmol/L; Blood Urea Nitrogen 15 mg/dL (9-20); Calcium 7.4 mg/dL (8.4-10.2); Carbon Dioxide 25 mmol/L (22-30); Chloride 105 mmol/L (98-107); Glucose 119 mg/dL (74-99); Magnesium 2.1 mg/dL (1.6-2.3); Non-African American GFR(CKD) >90 (>60 ml/min/1.73 sqM); Phosphorus 3.9 mg/dL (2.5-4.5); Potassium 3.9 mmol/L (3.5-5.1); Sodium 135 mmol/L (137-145); Total Bilirubin 0.4 mg/dL (0.2-1.3); Total Protein 5.4 g/dL (6.3-8.2)
[2023-08-13 11:34] LABS: Glucose,Whole Blood 133 mg/dL (70-110)
[2023-08-13] MEDS: POTASSIUM CHLORIDE 20 MEQ in WATER FOR INJECTION 1 100ML.BAG IVPB ONE (12:29)
--- NOTE | 2023-08-13 13:17 | P.PN ---
Progress Note - Text Progress Note Date: 08/13/23 CHIEF COMPLAINT: Sacral decubitus ulcers HISTORY OF PRESENT ILLNESS: Patient postop day #12 status post diverting colostomy. Patient postop day #11 status post debridement of decubitus ulcer. Patient has had no output through his ostomy. He did pull the NG tube the other night. And continues to refuse NG tube placement. His vomiting has subsided. He has no nausea currently. He remains NPO. Has TPN for nutrition support. Patient and family met with hospice again yesterday. Patient is declining hospice at this time. WBC is down from 17.5-9.4 potassium is better at 4.2 sodium 134 PHYSICAL EXAM: VITAL SIGNS: Reviewed. GENERAL: no acute distress. ABDOMEN: Mildly distended. No stool in ostomy bag. Minimal drainage noted on abdominal dressing. Incisional wick in place ASSESSMENT: 1. Stage IV sacral decubitus ulcers with osteomyelitis 2. Sepsis 3. Hyponatremia 4. Diabetes mellitus 5. Medical noncompliance 6. Ileus 7. Hypokalemia improved 8. Infection at abdominal incision site PLAN: -Patient and family met with hospice yesterday. At this time patient declining hospice -CODE STATUS is DNR -Recommend comfort care measures -Would recommend NG tube placement. Patient refuses NG tube -Keep patient n.p.o. -TPN for nutrition support -Continue reglan -Continue IV fluids -Continue pain management -Antibiotics per ID service -Continue local wound care per wound care service for sacral ulcer -Continue local wound care to abdominal incision
--- NOTE | 2023-08-13 13:34 | P.PN ---
Subjective Progress Note Date: 08/13/23 63-year-old patient, follows with Dr. Mendez. Chronic stable medical conditions include ADHD, herniated disc lower back, smoker. Sacral wounds. Left AKA. right above-knee amputation by Dr. Zee on April 2023 Recently presented, not being compliant. Smoking cigarettes. Recreational drugs. Patient has not followed up for his PICC line antibiotics last discharge and was discharged on oral Augmentin. Patient has seen Dr. Zee from vascular and wound care Dr. Bahena. Patient's son lives with him. Patient now presents with worsening sacral wound. Eating fair. Continues to smoke cigarettes. Does marijuana. Tired. Some wheezing shortness of breath. June: Patient seen by Dr. Zee. Sacral decubitus wound will be followed by Dr. Pabon's team. For possible diverting colostomy. Patient is on IV Zosyn. Eating well. Urine drug screen was positive for opiates, amphetamines, methamphetamines, marijuana. Home pain medications were resumed. July 1: Patient being scheduled for diverting colostomy on Tuesday with Dr. Pabon. And debridement of sacral ulcer on Tuesday. Continue antibiotics. Patient eating well. July 2: Laying in bed. Comfortable. Son and family visiting. Scheduled for surgery on Tuesday and Tuesday. Eating well. Antibiotics in place. July 3: Comfortable. Tolerating diet. Pending surgery tomorrow for diverting colostomy. Discussed with patient. July 31: Patient underwent diverting colostomy today. With sigmoid colectomy. Left-sided colostomy. Postprocedure tired. Laying in bed. Due for sacral wound debridement tomorrow. August 01: Patient underwent debridement of sacral decubitus ulcer by Dr. Pabon. Had a good supper. wellness spa manager looking into discharge planning. August 02: Patient in bed. Son at the bedside. Spoke to the special education case manager Vernon to discover that patient actually has insurance. He should build to qualify for rehab. Looking into the same. Antibiotics to continue. PICC line was placed by Dr. Schulz from vascular today. August 03: Saw the patient this morning. Vomited twice. A bit dark-colored. Had dark-colored liquid output in the colostomy bag. Did not eat anything this morning. Diet was scaled back. Abdominal x-ray showed diffuse distention of the stomach and the small bowel. Small bowel was dilated up to 4.5 cm. Later patient is moved to the selective floor for telemetry. NG tube was placed. Dr Pabon from surgery is following. 8: NG tube to suction remains in place. Significant dark-colored output. Some output through the colostomy bag. Getting IV fluids. Tired August 05: NG tube remains to suction. Dark output. Some output liquidy through the colostomy bag. Tired. IV fluids. Replace IV potassium. August 06: NG tube remains in place. Output present. Some thickening of the output through the colostomy bag. Tired. Patient being visited by his daughter who lives down the road. She is offering to take care of the patient when he gets discharged. August 07: NG tube remains in place. Colostomy is putting out brown stool. Continue for suction as per surgery. August 08: Saw the patient twice today. In the morning and then later this evening. Patient again started vomiting. TPN was ordered and started this afternoon. I communicated with Janet CHAVES from surgery. Surgical team is suggesting comfort measures/hospice if no improvement. Late in the evening I discussed with the patient. He will also talk to his children. Continues to have nausea. 08/09. Patient seen and examined. Dr. Molina took over care. Currently has NG tube in. Currently on TPN. Discussed with patient regarding goals of care, patient not very keen to make any decision today 08/10. Patient seen and examined. Patient pulled out his NG tube overnight. Daughter is at the bedside, discussed with her regarding hospice, she is still thinking about it. 08/11. Patient seen and examined. Still not having much output from ostomy. Currently n.p.o., currently on TPN. Discussed with him again regarding hospice, patient states he is still not ready to make a decision. Lab work done this morning showed WBC 9.4, hemoglobin 8.5, sodium 134, potassium 4.2, BUN 14, creatinine 0.28, 08/13/23: PHYSICAL EXAMINATION: GENERAL: The patient is alert and oriented x3, not in any acute distress. Chronically ill looking HEENT: Pupils are round and equally reacting to light. EOMI. No scleral icterus. No conjunctival pallor. Normocephalic, atraumatic. No pharyngeal erythema. No thyromegaly. CARDIOVASCULAR: S1 and S2 present. No murmurs, rubs, or gallops. PULMONARY: Coarse breath sounds bilaterally, no wheezing or crackles. ABDOMEN: Soft, nontender, nondistended, sluggish bowel sounds. No palpable organomegaly. Ostomy MUSCULOSKELETAL: Bilateral AKA EXTREMITIES: No cyanosis, clubbing, or pedal edema. NEUROLOGICAL: Gross neurological examination did not reveal any focal deficits. SKIN: No rashes. Assessment and plan * Small bowel obstruction with recurrent nausea and vomiting * Acute metabolic encephalopathy, toxic encephalopathy from recreational drugs * History of right above-knee amputation polymicrobial infection with bacteremia * Sacral decub ulcer with acute osteomyelitis * S/p robotic colostomy July 31/2024 * Diabetes mellitus type 2 on insulin * History of COPD * Tobacco use on nicotine dependence * Chronic medical debility nonambulatory * In regards to small bowel obstruction patient is s/p diverting colostomy, continue patient on TPN, patient remains n.p.o. further plan of care per surgery recommendations diet to be advanced per surgery recommendation * In regards to bowel obstruction nasogastric tube insertion recommended however patient adamantly refused * Regards to electrolyte abnormality follow-up on electrolyte panel continue patient on TPN * In regards to history of secondary progressive with osteomyelitis continue patient on IV antibiotic on Unasyn, continue wound care, patient underwent debridement with Dr. Gomez on August 01, follows up with wound care, * In regards to history of atrial fibrillation continue patient on amiodarone and Lopressor * In regards to diabetes mellitus continue Accu-Cheks continue patient on correctional insulin * In regards to metabolic encephalopathy that has resolved patient is alert and oriented to person place and situation Objective - Vital Signs Vital signs: Vital Signs Temp 98.2 F 08/13/23 08:10 Pulse 65 08/13/23 08:10 Resp 17 08/13/23 08:10 BP 133/62 08/13/23 08:10 Pulse Ox 99 08/13/23 08:10 FiO2 21 08/08/23 08:45 Intake & Output 08/12/23 08/13/23 08/13/23 18:59 06:59 18:59 Output Total 400 800 Balance -400 -800 Weight 41 kg Output: Urine 350 800 Stool 50 Other: Voiding Method Indwelling Catheter Indwelling Catheter - Labs CBC & Chem 7: 08/13/23 07:50 08/13/23 07:50 Labs: Abnormal Lab Results - Last 24 Hours (Table) 08/12/23 08/12/23 08/12/23 Range/Units 10:49 10:49 11:18 RBC 3.41 L (4.30-5.90) m/uL Hgb 8.5 L (13.0-17.5) gm/dL Hct 29.0 L (39.0-53.0) % MCH 24.9 L (25.0-35.0) pg MCHC 29.2 L (31.0-37.0) g/dL RDW 15.7 H (11.5-15.5) % Plt Count 480 H (150-450) k/uL Sodium 134 L (137-145) mmol/L Creatinine 0.28 L (0.66-1.25) mg/dL Glucose 221 H (74-99) mg/dL POC Glucose (mg/dL) 226 H (70-110) mg/dL Calcium 7.6 L (8.4-10.2) mg/dL AST 16 L (17-59) U/L Total Protein 5.5 L (6.3-8.2) g/dL Albumin 2.1 L (3.5-5.0) g/dL 08/12/23 08/12/23 08/13/23 Range/Units 16:15 19:51 06:24 RBC (4.30-5.90) m/uL Hgb (13.0-17.5) gm/dL Hct (39.0-53.0) % MCH (25.0-35.0) pg MCHC (31.0-37.0) g/dL RDW (11.5-15.5) % Plt Count (150-450) k/uL Sodium (137-145) mmol/L Creatinine (0.66-1.25) mg/dL Glucose (74-99) mg/dL POC Glucose (mg/dL) 217 H 134 H 146 H (70-110) mg/dL Calcium (8.4-10.2) mg/dL AST (17-59) U/L Total Protein (6.3-8.2) g/dL Albumin (3.5-5.0) g/dL 08/13/23 08/13/23 Range/Units 07:50 07:50 RBC 3.20 L (4.30-5.90) m/uL Hgb 8.3 L (13.0-17.5) gm/dL Hct 26.8 L (39.0-53.0) % MCH (25.0-35.0) pg MCHC 30.9 L (31.0-37.0) g/dL RDW 15.7 H (11.5-15.5) % Plt Count 476 H (150-450) k/uL Sodium 135 L (137-145) mmol/L Creatinine 0.26 L (0.66-1.25) mg/dL Glucose 119 H (74-99) mg/dL POC Glucose (mg/dL) (70-110) mg/dL Calcium 7.4 L (8.4-10.2) mg/dL AST (17-59) U/L Total Protein 5.4 L (6.3-8.2) g/dL Albumin 2.1 L (3.5-5.0) g/dL
--- NOTE | 2023-08-13 15:40 | P.PN ---
Subjective Progress Note Date: 08/13/23 Principal diagnosis: Reason for follow-up is infected sacral pressure ulcer Patient is a 63-year-old male with a past medical history significant for diabetes mellitus in this patient who did have a history of PAD s/p bilateral [id number] amputation and did have a stage IV sacral pressure ulcer that has been there for a few months, noncompliance with the previous IV and local care treatment presented to hospital with worsening wound and fever, Patient is status post sigmoid colectomy with end colostomy completed on 08/01/2023 and the patient is status post excision debridement of his sacral pressure ulcer by general surgery completed on 08/02/2023 On today's evaluation that is 08/13/2023,the patient remains to be afebrile, patient is on room air not requiring supplemental oxygen and denies any shortness of breath no chest pain or cough.Patient denies having any nausea or vomiting, no abdominal pain still no output in the colostomy bag patient asking for food. Patient white count is 8.2, creatinine 0.26 Objective - Vital Signs Vital signs: Vital Signs Temp 97.9 F 08/13/23 12:30 Pulse 75 08/13/23 12:30 Resp 17 08/13/23 12:30 BP 122/60 08/13/23 12:30 Pulse Ox 97 08/13/23 12:30 FiO2 21 08/08/23 08:45 Intake & Output 08/12/23 08/13/23 08/13/23 18:59 06:59 18:59 Output Total 400 800 425 Balance -400 -800 -425 Weight 41 kg 41 kg Output: Urine 350 800 425 Stool 50 Other: Voiding Method Indwelling Catheter Indwelling Catheter Indwelling Catheter - Exam GENERAL DESCRIPTION: Middle-age male lying in bed in no distress RESPIRATORY SYSTEM: Unlabored breathing , decreased breath sounds at bases HEART: S1 S2 regular rate and rhythm , ABDOMEN: Soft , no tenderness EXTREMITIES: Bilateral AKA stump no redness or drainage - Labs CBC & Chem 7: 08/13/23 07:50 08/13/23 07:50 Labs: Abnormal Lab Results - Last 24 Hours (Table) 08/12/23 08/12/23 08/13/23 Range/Units 16:15 19:51 06:24 RBC (4.30-5.90) m/uL Hgb (13.0-17.5) gm/dL Hct (39.0-53.0) % MCHC (31.0-37.0) g/dL RDW (11.5-15.5) % Plt Count (150-450) k/uL Sodium (137-145) mmol/L Creatinine (0.66-1.25) mg/dL Glucose (74-99) mg/dL POC Glucose (mg/dL) 217 H 134 H 146 H (70-110) mg/dL Calcium (8.4-10.2) mg/dL Total Protein (6.3-8.2) g/dL Albumin (3.5-5.0) g/dL 08/13/23 08/13/23 08/13/23 Range/Units 07:50 07:50 11:32 RBC 3.20 L (4.30-5.90) m/uL Hgb 8.3 L (13.0-17.5) gm/dL Hct 26.8 L (39.0-53.0) % MCHC 30.9 L (31.0-37.0) g/dL RDW 15.7 H (11.5-15.5) % Plt Count 476 H (150-450) k/uL Sodium 135 L (137-145) mmol/L Creatinine 0.26 L (0.66-1.25) mg/dL Glucose 119 H (74-99) mg/dL POC Glucose (mg/dL) 133 H (70-110) mg/dL Calcium 7.4 L (8.4-10.2) mg/dL Total Protein 5.4 L (6.3-8.2) g/dL Albumin 2.1 L (3.5-5.0) g/dL Assessment and Plan (1) Sacral decubitus ulcer, stage IV Current Visit: Yes Status: Acute Code(s): L89.154 - PRESSURE ULCER OF SACRAL REGION, STAGE 4 SNOMED Code(s): 52324705779649 (2) Sacral osteomyelitis Current Visit: No Status: Acute Code(s): M46.28 - OSTEOMYELITIS OF VERTEBRA, SACRAL AND SACROCOCCYGEAL REGION SNOMED Code(s): 641482720 (3) Positive blood culture Current Visit: Yes Status: Acute Code(s): R78.81 - BACTEREMIA SNOMED Code(s): 635006891 Plan: 1patient was in the hospital with sepsis in this patient who did have a fever tachycardia elevated white count source is infected sacral pressure ulcer likely stage IV with underlying osteomyelitis in this patient wound has been there for couple of months now and noncompliance with treatment in the outpatient setting 2-positive blood culture more likely related to his infected sacral pressure ulcer, blood culture has been repeated to document clearance of bacteremia and repeat blood culture negative 3-The patient local culture grew E. coli and Proteus and beta-hemolytic Streptococcus 4-patient is status post diverting colostomy and surgical debridement of his large sacral pressure ulcer 5-patient did have a PICC line placement on 08/03/2023 6patient is afebrile, and the patient white count has normalized 7-patient to continue with the Unasyn and continue supportive care Dictation was produced using [employer] dictation software. please excuse any grammatical, word or spelling errors. Time with Patient: Less than 30
[2023-08-13 16:23] LABS: Glucose,Whole Blood 160 mg/dL (70-110)
[2023-08-13 20:09] LABS: Glucose,Whole Blood 169 mg/dL (70-110)
[2023-08-14 06:10] LABS: Glucose,Whole Blood 133 mg/dL (70-110)
--- NOTE | 2023-08-14 07:41 | XR ---
EXAMINATION TYPE: XR KUB portable DATE OF EXAM: 08/14/2023 5:45 AM CLINICAL INDICATION:Male, 63 years old with history of Follow-up bowel obstruction; [facility] COMPARISON: 1 day prior TECHNIQUE: One radiographic view of the abdomen was obtained. FINDINGS/IMPRESSION: 1. Similar gaseous dilation of small bowel bowel throughout the exam. 2. Nasogastric tube not definitively visualized.
[2023-08-14 08:37] LABS: HCT 28.1 % (39.0-53.0); HGB 8.3 gm/dL (13.0-17.5); Hypochromasia Marked; MCH 24.7 pg (25.0-35.0); MCHC 29.7 g/dL (31.0-37.0); MCV 83.1 fL (80.0-100.0); Mean Platelet Volume 6.8; Platelet Count 555 k/uL (150-450); RBC 3.38 m/uL (4.30-5.90); RDW 15.8 % (11.5-15.5); WBC 7.9 k/uL (3.8-10.6)
[2023-08-14 08:54] LABS: ALT 15 U/L (4-49); AST 18 U/L (17-59); African American GFR (CKD) >90 (>60 ml/min/1.73 sqM); Albumin 2.2 g/dL (3.5-5.0); Alkaline Phosphatase 85 U/L (38-126); Anion Gap 5 mmol/L; Blood Urea Nitrogen 14 mg/dL (9-20); Calcium 7.8 mg/dL (8.4-10.2); Carbon Dioxide 24 mmol/L (22-30); Chloride 106 mmol/L (98-107); Glucose 122 mg/dL (74-99); Magnesium 2.1 mg/dL (1.6-2.3); Non-African American GFR(CKD) >90 (>60 ml/min/1.73 sqM); Phosphorus 4.8 mg/dL (2.5-4.5); Potassium 4.4 mmol/L (3.5-5.1); Sodium 135 mmol/L (137-145); Total Bilirubin 0.3 mg/dL (0.2-1.3); Total Protein 5.7 g/dL (6.3-8.2)
--- NOTE | 2023-08-14 10:26 | P.PN ---
Progress Note - Text Progress Note Date: 08/14/23 Patient's leaving his bed. His clinical conditions unchanged. It is unclear if he is going to be made comfort care. Patiently receive supportive care.
[2023-08-14 11:19] LABS: Glucose,Whole Blood 116 mg/dL (70-110)
--- NOTE | 2023-08-14 12:46 | P.PN ---
Subjective Progress Note Date: 08/14/23 63-year-old patient, follows with Dr. Mendez. Chronic stable medical conditions include ADHD, herniated disc lower back, smoker. Sacral wounds. Left AKA. right above-knee amputation by Dr. Zee on April 2023 Recently presented, not being compliant. Smoking cigarettes. Recreational drugs. Patient has not followed up for his PICC line antibiotics last discharge and was discharged on oral Augmentin. Patient has seen Dr. Zee from vascular and wound care Dr. Bahena. Patient's son lives with him. Patient now presents with worsening sacral wound. Eating fair. Continues to smoke cigarettes. Does marijuana. Tired. Some wheezing shortness of breath. June: Patient seen by Dr. Zee. Sacral decubitus wound will be followed by Dr. Pabon's team. For possible diverting colostomy. Patient is on IV Zosyn. Eating well. Urine drug screen was positive for opiates, amphetamines, methamphetamines, marijuana. Home pain medications were resumed. July 1: Patient being scheduled for diverting colostomy on Tuesday with Dr. Pabon. And debridement of sacral ulcer on Tuesday. Continue antibiotics. Patient eating well. July 2: Laying in bed. Comfortable. Son and family visiting. Scheduled for surgery on Tuesday and Tuesday. Eating well. Antibiotics in place. July 3: Comfortable. Tolerating diet. Pending surgery tomorrow for diverting colostomy. Discussed with patient. July 31: Patient underwent diverting colostomy today. With sigmoid colectomy. Left-sided colostomy. Postprocedure tired. Laying in bed. Due for sacral wound debridement tomorrow. August 01: Patient underwent debridement of sacral decubitus ulcer by Dr. Pabon. Had a good supper. microfabrication engineer manager looking into discharge planning. August 02: Patient in bed. Son at the bedside. Spoke to the home health care case manager Vernon to discover that patient actually has insurance. He should build to qualify for rehab. Looking into the same. Antibiotics to continue. PICC line was placed by Dr. Schulz from vascular today. August 03: Saw the patient this morning. Vomited twice. A bit dark-colored. Had dark-colored liquid output in the colostomy bag. Did not eat anything this morning. Diet was scaled back. Abdominal x-ray showed diffuse distention of the stomach and the small bowel. Small bowel was dilated up to 4.5 cm. Later patient is moved to the [facility] floor for telemetry. NG tube was placed. Dr Pabon from surgery is following. : NG tube to suction remains in place. Significant dark-colored output. Some output through the colostomy bag. Getting IV fluids. Tired August 05: NG tube remains to suction. Dark output. Some output liquidy through the colostomy bag. Tired. IV fluids. Replace IV potassium. August 06: NG tube remains in place. Output present. Some thickening of the output through the colostomy bag. Tired. Patient being visited by his daughter who lives down the road. She is offering to take care of the patient when he gets discharged. August 07: NG tube remains in place. Colostomy is putting out brown stool. Continue for suction as per surgery. August 08: Saw the patient twice today. In the morning and then later this evening. Patient again started vomiting. TPN was ordered and started this afternoon. I communicated with Janet CHAVES from surgery. Surgical team is suggesting comfort measures/hospice if no improvement. Late in the evening I discussed with the patient. He will also talk to his children. Continues to have nausea. 08/09. Patient seen and examined. Dr. Molina took over care. Currently has NG tube in. Currently on TPN. Discussed with patient regarding goals of care, patient not very keen to make any decision today 08/10. Patient seen and examined. Patient pulled out his NG tube overnight. Daughter is at the bedside, discussed with her regarding hospice, she is still thinking about it. 08/11. Patient seen and examined. Still not having much output from ostomy. Currently n.p.o., currently on TPN. Discussed with him again regarding hospice, patient states he is still not ready to make a decision. Lab work done this morning showed WBC 9.4, hemoglobin 8.5, sodium 134, potassium 4.2, BUN 14, creatinine 0.28, 08/13/23: patient was evaluated bedside, patient remains n.p.o. at this point. Continue patient on parenteral nutrition. Ostomy in place, receiving IV antibiotics will follow-up on x-ray KUB 08/14/2023: Patient seen and evaluated bedside, x-ray KUB reviewed gaseous distention noted patient had refused nasogastric tube. General surgery following continue to remain n.p.o. PHYSICAL EXAMINATION: GENERAL: The patient is alert and oriented x3, not in any acute distress. Chronically ill looking HEENT: Pupils are round and equally reacting to light. EOMI. No scleral icterus. No conjunctival pallor. Normocephalic, atraumatic. No pharyngeal erythema. No thyromegaly. CARDIOVASCULAR: S1 and S2 present. No murmurs, rubs, or gallops. PULMONARY: Coarse breath sounds bilaterally, no wheezing or crackles. ABDOMEN: Soft, ostomy in place, hypoactive bowel MUSCULOSKELETAL: Bilateral AKA EXTREMITIES: No cyanosis, clubbing, or pedal edema. NEUROLOGICAL: Gross neurological examination did not reveal any focal deficits. SKIN: No rashes. Assessment and plan * Small bowel obstruction with recurrent nausea and vomiting * Acute metabolic encephalopathy, toxic encephalopathy from recreational drugs * History of right above-knee amputation polymicrobial infection with bacteremia * Sacral decub ulcer with acute osteomyelitis * S/p robotic colostomy July 31/2024 * Diabetes mellitus type 2 on insulin * History of COPD * Tobacco use on nicotine dependence * Chronic medical debility nonambulatory * In regards to small bowel obstruction patient is s/p diverting colostomy, continue patient on TPN, patient remains n.p.o. further plan of care per surgery recommendations diet to be advanced per surgery recommendation * In regards to bowel obstruction nasogastric tube insertion recommended however patient adamantly refused, patient requesting diet * Regards to electrolyte abnormality follow-up on electrolyte panel continue patient on TPN * In regards to history of secondary progressive with osteomyelitis continue patient on IV antibiotic on Unasyn, continue wound care, patient underwent debridement with Dr. Gomez on August 01, follows up with wound care, * In regards to history of atrial fibrillation continue patient on amiodarone and Lopressor * In regards to diabetes mellitus continue Accu-Cheks continue patient on correctional insulin * In regards to metabolic encephalopathy that has resolved patient is alert and oriented to person place and situation Objective - Vital Signs Vital signs: Vital Signs Temp 97.7 F 08/14/23 04:00 Pulse 83 08/14/23 04:00 Resp 17 08/14/23 04:00 BP 134/68 08/14/23 04:00 Pulse Ox 98 08/14/23 04:00 FiO2 21 08/08/23 08:45 Intake & Output 08/13/23 08/14/23 08/14/23 18:59 06:59 18:59 Intake Total 1011 Output Total 725 2400 Balance 286 -2400 Weight 41 kg Intake: Intake, IV Titration 1011 Amount Mvi, Adult No.4 with Vit 1011 K 10 ml Trace (Conc-1Ml/ Dose) 1 ml In Amino Acid 5%-D20w+Lytes*E* 1,000 ml @ 52 mls/hr IV .[id number] [facility] Rx#:[id number] Output: Urine 725 2400 Other: Voiding Method Indwelling Catheter Indwelling Catheter - Labs CBC & Chem 7: 08/14/23 07:58 08/14/23 07:58 Labs: Abnormal Lab Results - Last 24 Hours (Table) 08/13/23 08/13/23 08/14/23 Range/Units 16:21 20:08 06:09 RBC (4.30-5.90) m/uL Hgb (13.0-17.5) gm/dL Hct (39.0-53.0) % MCH (25.0-35.0) pg MCHC (31.0-37.0) g/dL RDW (11.5-15.5) % Plt Count (150-450) k/uL Sodium (137-145) mmol/L Creatinine (0.66-1.25) mg/dL Glucose (74-99) mg/dL POC Glucose (mg/dL) 160 H 169 H 133 H (70-110) mg/dL Calcium (8.4-10.2) mg/dL Phosphorus (2.5-4.5) mg/dL Total Protein (6.3-8.2) g/dL Albumin (3.5-5.0) g/dL 08/14/23 08/14/23 08/14/23 Range/Units 07:58 07:58 11:17 RBC 3.38 L (4.30-5.90) m/uL Hgb 8.3 L (13.0-17.5) gm/dL Hct 28.1 L (39.0-53.0) % MCH 24.7 L (25.0-35.0) pg MCHC 29.7 L (31.0-37.0) g/dL RDW 15.8 H (11.5-15.5) % Plt Count 555 H (150-450) k/uL Sodium 135 L (137-145) mmol/L Creatinine 0.30 L (0.66-1.25) mg/dL Glucose 122 H (74-99) mg/dL POC Glucose (mg/dL) 116 H (70-110) mg/dL Calcium 7.8 L (8.4-10.2) mg/dL Phosphorus 4.8 H (2.5-4.5) mg/dL Total Protein 5.7 L (6.3-8.2) g/dL Albumin 2.2 L (3.5-5.0) g/dL Microbiology - Last 24 Hours (Table) 08/11/23 11:15 Gram Stain - Final Abdomen Wound Culture - Final Enterococcus faecium VRE
[2023-08-14] MEDS: FOLIC ACID 1 MG TAB PO SCH (14:01)
--- NOTE | 2023-08-14 14:52 | P.PN ---
Subjective Progress Note Date: 08/14/23 Principal diagnosis: Reason for follow-up is infected sacral pressure ulcer Patient is a 63-year-old male with a past medical history significant for diabetes mellitus in this patient who did have a history of PAD s/p bilateral [id number] amputation and did have a stage IV sacral pressure ulcer that has been there for a few months, noncompliance with the previous IV and local care treatment presented to hospital with worsening wound and fever, Patient is status post sigmoid colectomy with end colostomy completed on 08/01/2023 and the patient is status post excision debridement of his sacral pressure ulcer by general surgery completed on 08/02/2023 On today's evaluation that is 08/14/2023, the patient continues to be afebrile, the patient is on room air and breathing comfortably, the Pt denies having any chest pain or cough, the patient denies having any abdominal pain no vomiting mention did have some output in the colostomy and wanted to eat. Patient white count is 7.9, creatinine 0.30 abdominal cultures now growing VRE Objective - Vital Signs Vital signs: Vital Signs Temp 97.7 F 08/14/23 04:00 Pulse 83 08/14/23 04:00 Resp 17 08/14/23 04:00 BP 134/68 08/14/23 04:00 Pulse Ox 98 08/14/23 04:00 FiO2 21 08/08/23 08:45 Intake & Output 08/13/23 08/14/23 08/14/23 18:59 06:59 18:59 Intake Total 1011 Output Total 725 2400 700 Balance 286 -2400 -700 Weight 41 kg Intake: Intake, IV Titration 1011 Amount Mvi, Adult No.4 with Vit 1011 K 10 ml Trace (Conc-1Ml/ Dose) 1 ml In Amino Acid 5%-D20w+Lytes*E* 1,000 ml @ 52 mls/hr IV .[id number] [facility] Rx#:[id number] Output: Urine 725 2400 700 Other: Voiding Method Indwelling Catheter Indwelling Catheter - Exam GENERAL DESCRIPTION: Middle-age male lying in bed in no distress RESPIRATORY SYSTEM: Unlabored breathing , decreased breath sounds at bases HEART: S1 S2 regular rate and rhythm , ABDOMEN: Soft , no tenderness EXTREMITIES: Bilateral AKA stump no redness or drainage - Labs CBC & Chem 7: 08/14/23 07:58 08/14/23 07:58 Labs: Abnormal Lab Results - Last 24 Hours (Table) 08/13/23 08/13/23 08/14/23 Range/Units 16:21 20:08 06:09 RBC (4.30-5.90) m/uL Hgb (13.0-17.5) gm/dL Hct (39.0-53.0) % MCH (25.0-35.0) pg MCHC (31.0-37.0) g/dL RDW (11.5-15.5) % Plt Count (150-450) k/uL Sodium (137-145) mmol/L Creatinine (0.66-1.25) mg/dL Glucose (74-99) mg/dL POC Glucose (mg/dL) 160 H 169 H 133 H (70-110) mg/dL Calcium (8.4-10.2) mg/dL Phosphorus (2.5-4.5) mg/dL Total Protein (6.3-8.2) g/dL Albumin (3.5-5.0) g/dL 08/14/23 08/14/23 08/14/23 Range/Units 07:58 07:58 11:17 RBC 3.38 L (4.30-5.90) m/uL Hgb 8.3 L (13.0-17.5) gm/dL Hct 28.1 L (39.0-53.0) % MCH 24.7 L (25.0-35.0) pg MCHC 29.7 L (31.0-37.0) g/dL RDW 15.8 H (11.5-15.5) % Plt Count 555 H (150-450) k/uL Sodium 135 L (137-145) mmol/L Creatinine 0.30 L (0.66-1.25) mg/dL Glucose 122 H (74-99) mg/dL POC Glucose (mg/dL) 116 H (70-110) mg/dL Calcium 7.8 L (8.4-10.2) mg/dL Phosphorus 4.8 H (2.5-4.5) mg/dL Total Protein 5.7 L (6.3-8.2) g/dL Albumin 2.2 L (3.5-5.0) g/dL Microbiology - Last 24 Hours (Table) 08/11/23 11:15 Gram Stain - Final Abdomen Wound Culture - Final Enterococcus faecium VRE Assessment and Plan (1) Sacral decubitus ulcer, stage IV Current Visit: Yes Status: Acute Code(s): L89.154 - PRESSURE ULCER OF SACRAL REGION, STAGE 4 SNOMED Code(s): 00246579663639 (2) Sacral osteomyelitis Current Visit: No Status: Acute Code(s): M46.28 - OSTEOMYELITIS OF VERTEBRA, SACRAL AND SACROCOCCYGEAL REGION SNOMED Code(s): 881422820 (3) Positive blood culture Current Visit: Yes Status: Acute Code(s): R78.81 - BACTEREMIA SNOMED Code(s): 482769153 (4) VRE (vancomycin resistant enterococcus) culture positive Current Visit: Yes Status: Acute Code(s): Z22.39 - CARRIER OF OTHER SPECIFIED BACTERIAL DISEASES SNOMED Code(s): 281218816 Plan: 1patient was in the hospital with sepsis in this patient who did have a fever tachycardia elevated white count source is infected sacral pressure ulcer likely stage IV with underlying osteomyelitis in this patient wound has been there for couple of months now and noncompliance with treatment in the outpatient setting 2-positive blood culture more likely related to his infected sacral pressure ulcer, blood culture has been repeated to document clearance of bacteremia and repeat blood culture negative 3-The patient local culture grew E. coli and Proteus and beta-hemolytic Streptococcus 4-patient is status post diverting colostomy and surgical debridement of his large sacral pressure ulcer 5-patient did have a PICC line placement on 08/03/2023 6patient did have a abdominal wound cultures obtained after removal of the stitches which is now growing VRE 7-patient to continue with the Unasyn and will add daptomycin to cover for the abdominal wound infection Dictation was produced using [employer] dictation software. please excuse any grammatical, word or spelling errors. Time with Patient: Less than 30
[2023-08-14] MEDS: MVI, ADULT NO.4 WITH VIT K 10 ML, TRACE (CONC-1ML/DOSE) 1 ML, SODIUM ACETATE 50 MEQ, PO... IV SCH (14:57)
[2023-08-14 16:28] LABS: Glucose,Whole Blood 190 mg/dL (70-110)
[2023-08-14 20:59] LABS: Glucose,Whole Blood 211 mg/dL (70-110)
[2023-08-15 06:35] LABS: Glucose,Whole Blood 213 mg/dL (70-110)
[2023-08-15 07:59] LABS: HCT 26.2 % (39.0-53.0); HGB 7.8 gm/dL (13.0-17.5); Hypochromasia Marked; MCH 24.6 pg (25.0-35.0); MCHC 29.8 g/dL (31.0-37.0); MCV 82.7 fL (80.0-100.0); Mean Platelet Volume 6.6; Platelet Count 531 k/uL (150-450); RBC 3.17 m/uL (4.30-5.90); RDW 15.9 % (11.5-15.5); WBC 7.9 k/uL (3.8-10.6)
[2023-08-15 08:22] LABS: ALT 12 U/L (4-49); AST 13 U/L (17-59); African American GFR (CKD) >90 (>60 ml/min/1.73 sqM); Albumin 2.1 g/dL (3.5-5.0); Alkaline Phosphatase 78 U/L (38-126); Anion Gap 4 mmol/L; Blood Urea Nitrogen 13 mg/dL (9-20); Calcium 7.8 mg/dL (8.4-10.2); Carbon Dioxide 24 mmol/L (22-30); Chloride 102 mmol/L (98-107); Glucose 199 mg/dL (74-99); Magnesium 2.1 mg/dL (1.6-2.3); Non-African American GFR(CKD) >90 (>60 ml/min/1.73 sqM); Phosphorus 3.6 mg/dL (2.5-4.5); Potassium 4.3 mmol/L (3.5-5.1); Sodium 130 mmol/L (137-145); Total Bilirubin 0.3 mg/dL (0.2-1.3); Total Protein 5.7 g/dL (6.3-8.2)
[2023-08-15 11:22] LABS: Glucose,Whole Blood 182 mg/dL (70-110)
[2023-08-15] MEDS: [UNRECOGNIZED DRUG - REMARK] IV SCH (12:25)
--- NOTE | 2023-08-15 14:31 | XR ---
EXAMINATION TYPE: XR abdomen 2V DATE OF EXAM: 08/15/2023 COMPARISON: 08/14/2023 HISTORY: Pain TECHNIQUE: One view abdominal series FINDINGS: The osseous structures are intact. The bowel gas pattern is nonspecific. There is air beneath the ri ght hemidiaphragm compatible 3 intraperitoneal air. Surgical rosetta noted. Retained debris throughou t the right colon. Diffuse osteopenia, degenerative changes spine and arthropathy of the hips. Persistent dilated bowel loops in the left abdomen. Right upper quadrant calcification. Right hemidiaphragm elevation. IMPRESSION: 1. Small amount of free intraperitoneal air likely postoperative. Comparison to be reduced in amount relative to 08/10/2023 2. Dilated bowel loops appear slightly improved with regard to number but similar in distention. Find ings compatible with a postoperative ileus.
--- NOTE | 2023-08-15 14:37 | P.PN ---
Subjective Progress Note Date: 08/15/23 CHIEF COMPLAINT: Sacral decubitus ulcers HISTORY OF PRESENT ILLNESS: Patient is status post diverting colostomy on 08/01/23 and is status post debridement of decubitus ulcer on 08/02/23. Patient continues to have no output through his ostomy. Abdominal x-ray from yesterday reports similar gaseous dilation of small bowel throughout the exam. Patient is NPO. Family is giving patient coffee to drink. Patient is on TPN for nutrition support. Afebrile. WBC 7.9 Hgb 7.8 platelets 531 sodium is 130 creatinine 0.31 culture abdominal incision growing VRE PHYSICAL EXAM: VITAL SIGNS: Reviewed. GENERAL: no acute distress. ABDOMEN: Mildly distended. No stool in ostomy bag. Minimal drainage noted on abdominal dressing. Incisional wick in place ASSESSMENT: 1. Stage IV sacral decubitus ulcers with osteomyelitis 2. Sepsis 3. Hyponatremia 4. Diabetes mellitus 5. Medical noncompliance 6. Ileus 7. Hypokalemia improved 8. Infection at abdominal incision site PLAN: -Trial sips of clear liquids -Recommend transfer to tertiary care center for second opinion -Add Entereg -Continue supportive care -Recommend comfort care measures -Patient is noncompliant -TPN for nutrition support -Continue reglan -Continue IV fluids -Continue pain management -Antibiotics per ID service -Continue local wound care per wound care service for sacral ulcer -Continue local wound care to abdominal incision Physician Superintendent Operating note has been reviewed by physician. Signing provider agrees with the documented findings, assessment, and plan of care. Objective - Vital Signs Vital signs: Vital Signs Temp 98 F 08/15/23 08:30 Pulse 75 08/15/23 08:30 Resp 18 08/15/23 08:30 BP 101/58 08/15/23 08:30 Pulse Ox 95 08/15/23 08:30 FiO2 21 08/08/23 08:45 Intake & Output 08/14/23 08/15/23 08/15/23 18:59 06:59 18:59 Intake Total 25 Output Total 584 330 2669 Balance - Intake: Oral 25 Output: Urine 797 940 9798 Other: Voiding Method Indwelling Catheter Indwelling Catheter Indwelling Catheter - Labs CBC & Chem 7: 08/15/23 07:21 08/15/23 07:21 Labs: Abnormal Lab Results - Last 24 Hours (Table) 08/14/23 08/14/23 08/15/23 Range/Units 16:26 20:57 06:34 RBC (4.30-5.90) m/uL Hgb (13.0-17.5) gm/dL Hct (39.0-53.0) % MCH (25.0-35.0) pg MCHC (31.0-37.0) g/dL RDW (11.5-15.5) % Plt Count (150-450) k/uL Sodium (137-145) mmol/L Creatinine (0.66-1.25) mg/dL Glucose (74-99) mg/dL POC Glucose (mg/dL) 190 H 211 H 213 H (70-110) mg/dL Calcium (8.4-10.2) mg/dL AST (17-59) U/L Total Protein (6.3-8.2) g/dL Albumin (3.5-5.0) g/dL 08/15/23 08/15/23 08/15/23 Range/Units 07:21 07:21 11:20 RBC 3.17 L (4.30-5.90) m/uL Hgb 7.8 L (13.0-17.5) gm/dL Hct 26.2 L (39.0-53.0) % MCH 24.6 L (25.0-35.0) pg MCHC 29.8 L (31.0-37.0) g/dL RDW 15.9 H (11.5-15.5) % Plt Count 531 H (150-450) k/uL Sodium 130 L (137-145) mmol/L Creatinine 0.31 L (0.66-1.25) mg/dL Glucose 199 H (74-99) mg/dL POC Glucose (mg/dL) 182 H (70-110) mg/dL Calcium 7.8 L (8.4-10.2) mg/dL AST 13 L (17-59) U/L Total Protein 5.7 L (6.3-8.2) g/dL Albumin 2.1 L (3.5-5.0) g/dL
--- NOTE | 2023-08-15 16:22 | P.PN ---
Subjective Progress Note Date: 08/15/23 63-year-old patient, follows with Dr. Mendez. Chronic stable medical conditions include ADHD, herniated disc lower back, smoker. Sacral wounds. Left AKA. right above-knee amputation by Dr. Zee on April 2023 Recently presented, not being compliant. Smoking cigarettes. Recreational drugs. Patient has not followed up for his PICC line antibiotics last discharge and was discharged on oral Augmentin. Patient has seen Dr. Zee from vascular and wound care Dr. Bahena. Patient's son lives with him. Patient now presents with worsening sacral wound. Eating fair. Continues to smoke cigarettes. Does marijuana. Tired. Some wheezing shortness of breath. June: Patient seen by Dr. Zee. Sacral decubitus wound will be followed by Dr. Pabon's team. For possible diverting colostomy. Patient is on IV Zosyn. Eating well. Urine drug screen was positive for opiates, amphetamines, methamphetamines, marijuana. Home pain medications were resumed. July 1: Patient being scheduled for diverting colostomy on Tuesday with Dr. Pabon. And debridement of sacral ulcer on Tuesday. Continue antibiotics. Patient eating well. July 2: Laying in bed. Comfortable. Son and family visiting. Scheduled for surgery on Tuesday and Tuesday. Eating well. Antibiotics in place. July 3: Comfortable. Tolerating diet. Pending surgery tomorrow for diverting colostomy. Discussed with patient. July 31: Patient underwent diverting colostomy today. With sigmoid colectomy. Left-sided colostomy. Postprocedure tired. Laying in bed. Due for sacral wound debridement tomorrow. August 01: Patient underwent debridement of sacral decubitus ulcer by Dr. Pabon. Had a good supper. financial risk manager looking into discharge planning. August 02: Patient in bed. Son at the bedside. Spoke to the case management manager Vernon to discover that patient actually has insurance. He should build to qualify for rehab. Looking into the same. Antibiotics to continue. PICC line was placed by Dr. Schulz from vascular today. August 03: Saw the patient this morning. Vomited twice. A bit dark-colored. Had dark-colored liquid output in the colostomy bag. Did not eat anything this morning. Diet was scaled back. Abdominal x-ray showed diffuse distention of the stomach and the small bowel. Small bowel was dilated up to 4.5 cm. Later patient is moved to the [facility] floor for telemetry. NG tube was placed. Dr Pabon from surgery is following. : NG tube to suction remains in place. Significant dark-colored output. Some output through the colostomy bag. Getting IV fluids. Tired August 05: NG tube remains to suction. Dark output. Some output liquidy through the colostomy bag. Tired. IV fluids. Replace IV potassium. August 06: NG tube remains in place. Output present. Some thickening of the output through the colostomy bag. Tired. Patient being visited by his daughter who lives down the road. She is offering to take care of the patient when he gets discharged. August 07: NG tube remains in place. Colostomy is putting out brown stool. Continue for suction as per surgery. August 08: Saw the patient twice today. In the morning and then later this evening. Patient again started vomiting. TPN was ordered and started this afternoon. I communicated with Janet CHAVES from surgery. Surgical team is suggesting comfort measures/hospice if no improvement. Late in the evening I d iscussed with the patient. He will also talk to his children. Continues to have nausea. 08/09. Patient seen and examined. Dr. Molina took over care. Currently has NG tube in. Currently on TPN. Discussed with patient regarding goals of care, patient not very keen to make any decision today 08/10. Patient seen and examined. Patient pulled out his NG tube overnight. Daughter is at the bedside, discussed with her regarding hospice, she is still thinking about it. 08/11. Patient seen and examined. Still not having much output from ostomy. Currently n.p.o., currently on TPN. Discussed with him again regarding hospice, patient states he is still not ready to make a decision. Lab work done this morning showed WBC 9.4, hemoglobin 8.5, sodium 134, potassium 4.2, BUN 14, creatinine 0.28, 08/13/23: patient was evaluated bedside, patient remains n.p.o. at this point. Continue patient on parenteral nutrition. Ostomy in place, receiving IV antibiotics will follow-up on x-ray KUB 08/14/2023: Patient seen and evaluated bedside, x-ray KUB reviewed gaseous distention noted patient had refused nasogastric tube. General surgery following continue to remain n.p.o. 08/15/2023 Patient is evaluated today resting in bed his daughter Rosa Maria at the bedside. Multiple questions regarding plan of care and the next steps which were answered. Patient has remained nothing by mouth for multiple days due to an abdominal ileus postoperatively. He has not had any output from his colostomy since surgery. He is found to have purulent drainage from the midline incision which was cultured and showing vancomycin-resistant Enterococcus and for this ID is following and he remains on IV daptomycin. Additionally this stage IV decubitus ulcer has positive wound cultures showing E. coli, Proteus, beta- hemolytic Streptococcus F. For this patient remains on Unasyn. Well as the IV daptomycin for coverage. Patient continues with local wound care with dressing changes and as needed for saturation the sacral decubitus ulceration. He is status postsurgical debridement of this. Patient has been maintained on TPN his sodium level is 130. Family is concerned as patient has not had any food by mouth. His daughter did give him a sip of coffee at the bedside with the hopes of stimulating his gastric motility however it was discussed the importance of remaining n.p.o. if ordered due to his ileus. He does have positive bowel sounds in all 4 quadrants today he is quite normoactive and discussed with general surgery he is cleared for some sips of clear liquids today. He has also been started on Enterag. Follow-up abdominal x-ray today reveals small amount of free intraperitoneal air likely postoperative. Comparison to be reduced in amount relative to 08/10/2023. There are dilated bowel loops that appear slightly improved with regard to number but similar distention. Findings compatible with a postoperative ileus. Patient will be monitored closely he had refused NG tube for the last couple days. His white blood cell count remains normal at 7.9, hemoglobin 7.8. His sodium level is 130, potassium 4.3, BUN of 13, creatinine of 0.31, blood glucose of 180s. His magnesium level is 2.1. Hemodynamically he is stable. Review of Systems Constitutional: Denied any fatigue denied any fever. Cardio vascular: denied any chest pain, palpitations Gastrointestinal: denied any nausea, vomiting, diarrhea Pulmonary: Denied any shortness of breath cough, reports abdominal pain 8/10 at the abdominal incision. Neurologic denied any new focal deficits All inpatient medications were reviewed and appropriate changes in these medications as dictated in the interval history and assessment and plan. PHYSICAL EXAMINATION: GENERAL: The patient is alert and oriented x3, not in any acute distress. Chronically ill looking HEENT: Pupils are round and equally reacting to light. EOMI. No scleral icterus. No conjunctival pallor. Normocephalic, atraumatic. No pharyngeal erythema. No thyromegaly. CARDIOVASCULAR: S1 and S2 present. No murmurs, rubs, or gallops. PULMONARY: Coarse breath sounds bilaterally, no wheezing or crackles. ABDOMEN: Soft, ostomy in place, hypoactive bowel no stool in the ostomy has small amt of milky drainage. Midline abdominal incision in place with packing. MUSCULOSKELETAL: Bilateral AKA EXTREMITIES: No cyanosis, clubbing, or pedal edema. NEUROLOGICAL: Gross neurological examination did not reveal any focal deficits. SKIN: No rashes. Large stage iv decubitus ulceration with purulent drainage. Assessment and plan -Sacral decub ulcer with acute osteomyelitis and sepsis, POA. -S/p robotic diverting colostomy July 31/2024 done to promote wound healing of the sacral wound. -Small bowel obstruction with recurrent nausea and vomiting; postoperative ileus resolving. -Acute metabolic encephalopathy, toxic encephalopathy from recreational drugs -History of right above-knee amputation polymicrobial infection with bacteremia -Diabetes mellitus type 2 on insulin -History of COPD with no acute exacerbation -Tobacco use on nicotine dependence -Chronic medical debility nonambulatory -Bilateral above the knee amputee. GI prophylaxis Do Not Resuscitate/Do Not Intubate -Patient is post operative day #14 diverting colostomy, continue patient on TPN and diet has been advanced to clear liquid today with sips of clears. -Postoperative ileus with conservative management patient has been NPO with improvement in bowel sounds. Treated with IV reglan and patient has been refusing NG tube. Patient has been started on Enterag today by the surgical team. -In regards to ileus nasogastric tube insertion recommended however patient adamantly refused, patient requesting diet -Regards to electrolyte abnormality follow-up on electrolyte panel continue patient on TPN -Patient is status post debridement of the sacral wound and to continue with local wound care and IV antibiotics for the positive wound culture. ID following closely. -Continue Accu-Cheks continue patient on correctional insulin -PT/OT following patient and family not ready for hospice the goal is to get the patient to subacute rehab to continue with local wound care and IV antibiotics. ID and surgery following closely. Local wound care to the decubitus ulceration with absorptive silver, saline moist gauze, kerlex for packing and cover with ABD. Change the outer dressing as needed silver should remain in place for 48 hours. Follow up with wound care. Repeat labs in the AM. Greater than 35 minutes have been spent in coordination of care with the patient and family. The impression and plan of care has been dictated by Aisha Boswell, Nurse Practitioner as directed. Dr. Evelyn MD I have performed a history and physical examination and medical decision making of this patient, discussed the same with the dictator, and agree with the dictators assessment and plan as written, documented as a scribe. Based on total visit time, I have performed more than 50% of this visit. Objective - Vital Signs Vital signs: Vital Signs Temp 97.2 F L 08/15/23 12:45 Pulse 75 08/15/23 12:45 Resp 18 08/15/23 12:45 BP 107/62 08/15/23 12:45 Pulse Ox 97 08/15/23 12:45 FiO2 21 08/08/23 08:45 Intake & Output 08/14/23 08/15/23 08/15/23 18:59 06:59 18:59 Intake Total 25 Output Total 272 143 9945 Balance - Intake: Oral 25 Output: Urine 634 519 5754 Other: Voiding Method Indwelling Catheter Indwelling Catheter Indwelling Catheter - Labs CBC & Chem 7: 08/15/23 07:21 08/15/23 07:21 Labs: Abnormal Lab Results - Last 24 Hours (Table) 08/14/23 08/14/23 08/15/23 Range/Units 16:26 20:57 06:34 RBC (4.30-5.90) m/uL Hgb (13.0-17.5) gm/dL Hct (39.0-53.0) % MCH (25.0-35.0) pg MCHC (31.0-37.0) g/dL RDW (11.5-15.5) % Plt Count (150-450) k/uL Sodium (137-145) mmol/L Creatinine (0.66-1.25) mg/dL Glucose (74-99) mg/dL POC Glucose (mg/dL) 190 H 211 H 213 H (70-110) mg/dL Calcium (8.4-10.2) mg/dL AST (17-59) U/L Total Protein (6.3-8.2) g/dL Albumin (3.5-5.0) g/dL 08/15/23 08/15/23 08/15/23 Range/Units 07:21 07:21 11:20 RBC 3.17 L (4.30-5.90) m/uL Hgb 7.8 L (13.0-17.5) gm/dL Hct 26.2 L (39.0-53.0) % MCH 24.6 L (25.0-35.0) pg MCHC 29.8 L (31.0-37.0) g/dL RDW 15.9 H (11.5-15.5) % Plt Count 531 H (150-450) k/uL Sodium 130 L (137-145) mmol/L Creatinine 0.31 L (0.66-1.25) mg/dL Glucose 199 H (74-99) mg/dL POC Glucose (mg/dL) 182 H (70-110) mg/dL Calcium 7.8 L (8.4-10.2) mg/dL AST 13 L (17-59) U/L Total Protein 5.7 L (6.3-8.2) g/dL Albumin 2.1 L (3.5-5.0) g/dL Assessment and Plan Time with Patient: Less than 30
[2023-08-15 16:24] LABS: Glucose,Whole Blood 86 mg/dL (70-110)
--- NOTE | 2023-08-15 17:26 | P.PN ---
Subjective Progress Note Date: 08/15/23 Principal diagnosis: Reason for follow-up is infected sacral pressure ulcer Patient is a 63-year-old male with a past medical history significant for diabetes mellitus in this patient who did have a history of PAD s/p bilateral [id number] amputation and did have a stage IV sacral pressure ulcer that has been there for a few months, noncompliance with the previous IV and local care treatment presented to hospital with worsening wound and fever, Patient is status post sigmoid colectomy with end colostomy completed on 08/01/2023 and the patient is status post excision debridement of his sacral pressure ulcer by general surgery completed on 08/02/2023 On today's evaluation that is 08/15/2023, Patient is afebrile patient is currently on room air and denies having any shortness of breath, the patient denies any chest pain or cough, the patient denies any nausea vomiting abdominal pain is controlled still no output in the colostomy has been insisting on eating. Patient did have white count of 7.9, creatinine 0.31 Objective - Vital Signs Vital signs: Vital Signs Temp 98 F 08/15/23 08:30 Pulse 75 08/15/23 08:30 Resp 18 08/15/23 08:30 BP 101/58 08/15/23 08:30 Pulse Ox 95 08/15/23 08:30 FiO2 21 08/08/23 08:45 Intake & Output 08/14/23 08/15/23 08/15/23 18:59 06:59 18:59 Intake Total 25 Output Total 333 919 7642 Balance - Intake: Oral 25 Output: Urine 743 164 3844 Other: Voiding Method Indwelling Catheter Indwelling Catheter Indwelling Catheter - Exam GENERAL DESCRIPTION: Middle-age male lying in bed in no distress RESPIRATORY SYSTEM: Unlabored breathing , decreased breath sounds at bases HEART: S1 S2 regular rate and rhythm , ABDOMEN: Soft , no tenderness EXTREMITIES: Bilateral AKA stump no redness or drainage - Labs CBC & Chem 7: 08/15/23 07:21 08/15/23 07:21 Labs: Abnormal Lab Results - Last 24 Hours (Table) 08/14/23 08/14/23 08/15/23 Range/Units 16:26 20:57 06:34 RBC (4.30-5.90) m/uL Hgb (13.0-17.5) gm/dL Hct (39.0-53.0) % MCH (25.0-35.0) pg MCHC (31.0-37.0) g/dL RDW (11.5-15.5) % Plt Count (150-450) k/uL Sodium (137-145) mmol/L Creatinine (0.66-1.25) mg/dL Glucose (74-99) mg/dL POC Glucose (mg/dL) 190 H 211 H 213 H (70-110) mg/dL Calcium (8.4-10.2) mg/dL AST (17-59) U/L Total Protein (6.3-8.2) g/dL Albumin (3.5-5.0) g/dL 08/15/23 08/15/23 08/15/23 Range/Units 07:21 07:21 11:20 RBC 3.17 L (4.30-5.90) m/uL Hgb 7.8 L (13.0-17.5) gm/dL Hct 26.2 L (39.0-53.0) % MCH 24.6 L (25.0-35.0) pg MCHC 29.8 L (31.0-37.0) g/dL RDW 15.9 H (11.5-15.5) % Plt Count 531 H (150-450) k/uL Sodium 130 L (137-145) mmol/L Creatinine 0.31 L (0.66-1.25) mg/dL Glucose 199 H (74-99) mg/dL POC Glucose (mg/dL) 182 H (70-110) mg/dL Calcium 7.8 L (8.4-10.2) mg/dL AST 13 L (17-59) U/L Total Protein 5.7 L (6.3-8.2) g/dL Albumin 2.1 L (3.5-5.0) g/dL Assessment and Plan (1) Sacral decubitus ulcer, stage IV Current Visit: Yes Status: Acute Code(s): L89.154 - PRESSURE ULCER OF SACRAL REGION, STAGE 4 SNOMED Code(s): 82843662387409 (2) Sacral osteomyelitis Current Visit: No Status: Acute Code(s): M46.28 - OSTEOMYELITIS OF VERTEBRA, SACRAL AND SACROCOCCYGEAL REGION SNOMED Code(s): 837200143 (3) Positive blood culture Current Visit: Yes Status: Acute Code(s): R78.81 - BACTEREMIA SNOMED Code(s): 701147065 (4) VRE (vancomycin resistant enterococcus) culture positive Current Visit: Yes Status: Acute Code(s): Z22.39 - CARRIER OF OTHER SPECIFIED BACTERIAL DISEASES SNOMED Code(s): 752180440 Plan: 1patient was in the hospital with sepsis in this patient who did have a fever tachycardia elevated white count source is infected sacral pressure ulcer likely stage IV with underlying osteomyelitis in this patient wound has been there for couple of months now and noncompliance with treatment in the outpatient setting 2-positive blood culture more likely related to his infected sacral pressure ulcer, blood culture has been repeated to document clearance of bacteremia and repeat blood culture negative 3-The patient local culture grew E. coli and Proteus and beta-hemolytic Streptococcus 4-patient is status post diverting colostomy and surgical debridement of his large sacral pressure ulcer 5-patient did have a PICC line placement on 08/03/2023 6patient did have a abdominal wound cultures obtained after removal of the stitches which is now growing VRE 7-patient remains to be afebrile, the patient white count normal, patient to continue with the Unasyn along with daptomycin, currently waiting for bowel activity before the patient could be fed this was explained to the patient as well as the daughter at the bedside Dictation was produced using [employer] dictation software. please excuse any grammatical, word or spelling errors. Time with Patient: Less than 30
[2023-08-15 20:01] LABS: Glucose,Whole Blood 146 mg/dL (70-110)
[2023-08-15] MEDS: ALVIMOPAN 12 MG CAPSULE PO SCH (20:29)
[2023-08-16 06:00] LABS: Glucose,Whole Blood 210 mg/dL (70-110)
[2023-08-16 09:47] LABS: Basophils % (A) 0 %; Eosinophils # (A) 0.5 k/uL (0-0.7); Eosinophils % (A) 4 %; HCT 29.7 % (39.0-53.0); Hypochromasia Moderate; Lymphocytes # (A) 1.1 k/uL (1.0-4.8); Lymphocytes % (A) 7 %; MCH 24.8 pg (25.0-35.0); MCHC 30.3 g/dL (31.0-37.0); MCV 81.9 fL (80.0-100.0); Mean Platelet Volume 6.7; Monocytes # (A) 0.7 k/uL (0-1.0); Monocytes % (A) 5 %; Neutrophils # (A) 12.2 k/uL (1.3-7.7); Neutrophils % (A) 83 %; Platelet Count 646 k/uL (150-450); RBC 3.62 m/uL (4.30-5.90); RDW 15.7 % (11.5-15.5); WBC 14.6 k/uL (3.8-10.6)
[2023-08-16 10:11] LABS: African American GFR (CKD) >90 (>60 ml/min/1.73 sqM); Anion Gap 6 mmol/L; Blood Urea Nitrogen 12 mg/dL (9-20); Calcium 7.7 mg/dL (8.4-10.2); Carbon Dioxide 22 mmol/L (22-30); Chloride 103 mmol/L (98-107); Glucose 205 mg/dL (74-99); Magnesium 1.9 mg/dL (1.6-2.3); Non-African American GFR(CKD) >90 (>60 ml/min/1.73 sqM); Phosphorus 3.8 mg/dL (2.5-4.5); Potassium 4.3 mmol/L (3.5-5.1); Sodium 131 mmol/L (137-145)
[2023-08-16] MEDS ORDERED: Magnesium Replacement Protocol 1 EACH MISC MISCELLANE PRN (10:16)
[2023-08-16 11:37] LABS: Glucose,Whole Blood 168 mg/dL (70-110)
--- NOTE | 2023-08-16 12:11 | P.PN ---
Subjective Progress Note Date: 08/16/23 CHIEF COMPLAINT: Sacral decubitus ulcers HISTORY OF PRESENT ILLNESS: Patient is status post diverting colostomy on 08/01/23 and is status post debridement of decubitus ulcer on 08/02/23. Patient having output through his ostomy. He denies any new abdominal pain. He is still having drainage from his incision site. Denies any nausea or vomiting. Afebrile. WBC is up from 7.9-14.6 Hgb 9.0 Abdominal x-ray reports small amount of free intraperitoneal air likely postoperative. Comparison to be reduced in amount relative to 08/10/2023. Dilated bowel loops appear slightly improved with regard to number but similar in distention. Finding compatible with postoperative ileus. X-ray results reviewed with Dr. Pabon and free intraperitoneal air likely due to patient's recent surgery. PHYSICAL EXAM: VITAL SIGNS: Reviewed. GENERAL: no acute distress. ABDOMEN: Nondistended. Nontender. Drainage from incision site. Incisional wick in place. Ostomy with stool present ASSESSMENT: 1. Stage IV sacral decubitus ulcers with osteomyelitis 2. Sepsis 3. Hyponatremia 4. Diabetes mellitus 5. Medical noncompliance 6. Ileus 7. Hypokalemia improved 8. Infection at abdominal incision site 9. Patient is noncompliant PLAN: -Advance diet to full liquids -Entereg discontinued -Continue supportive care -Recommend comfort care measures -TPN for nutrition support -Continue reglan -Continue IV fluids -Continue pain management -Antibiotics per ID service -Continue local wound care per wound care service for sacral ulcer -Continue local wound care to abdominal incision -Encourage patient to offload and stay off buttocks -repeat CBC in AM Physician Behavioral Intervention Specialist note has been reviewed by physician. Signing provider agrees with the documented findings, assessment, and plan of care. Objective - Vital Signs Vital signs: Vital Signs Temp 99.3 F 08/16/23 08:00 Pulse 95 08/16/23 08:00 Resp 19 08/16/23 08:00 BP 101/65 08/16/23 08:00 Pulse Ox 92 L 08/16/23 08:00 FiO2 21 08/08/23 08:45 Intake & Output 08/15/23 08/16/23 08/16/23 18:59 06:59 18:59 Intake Total 830 237 Output Total 1800 1200 Balance -970 -963 Intake: Intake, IV Titration 650 Amount Ampicillin-Sulbactam 3 gm 200 In Sodium Chloride 0.9% 100 ml @ 200 mls/hr IVPB Q6HR [facility] Rx#:[id number] DAPTOmycin 250 mg In 50 Sodium Chloride 0.9% 50 ml @ 100 mls/hr IVPB Q24HR [facility] Rx#:[id number] Mvi, Adult No.4 with Vit 400 K 10 ml Trace (Conc-1Ml/ Dose) 1 ml Sodium Acetate 50 meq Potassium Chloride 16 meq Magnesium Sulfate gm 0.5 gm Calcium Gluconate 1 gm In Amino Acids 5 %/Dextrose 20 % 1,000 ml @ 52 mls/ hr IV .[id number] [facility] Rx#: [id number] Oral 180 237 Output: Urine 1800 1200 Other: Voiding Method Indwelling Catheter Indwelling Catheter Indwelling Catheter # Bowel Movements 1 - Labs CBC & Chem 7: 08/16/23 09:19 08/16/23 09:19 Labs: Abnormal Lab Results - Last 24 Hours (Table) 08/15/23 08/16/23 08/16/23 Range/Units 20:00 05:56 09:19 WBC (3.8-10.6) k/uL RBC (4.30-5.90) m/uL Hgb (13.0-17.5) gm/dL Hct (39.0-53.0) % MCH (25.0-35.0) pg MCHC (31.0-37.0) g/dL RDW (11.5-15.5) % Plt Count (150-450) k/uL Neutrophils # (1.3-7.7) k/uL Sodium 131 L (137-145) mmol/L Creatinine 0.30 L (0.66-1.25) mg/dL Glucose 205 H (74-99) mg/dL POC Glucose (mg/dL) 146 H 210 H (70-110) mg/dL Calcium 7.7 L (8.4-10.2) mg/dL 08/16/23 08/16/23 Range/Units 09:19 11:36 WBC 14.6 H (3.8-10.6) k/uL RBC 3.62 L (4.30-5.90) m/uL Hgb 9.0 L (13.0-17.5) gm/dL Hct 29.7 L (39.0-53.0) % MCH 24.8 L (25.0-35.0) pg MCHC 30.3 L (31.0-37.0) g/dL RDW 15.7 H (11.5-15.5) % Plt Count 646 H (150-450) k/uL Neutrophils # 12.2 H (1.3-7.7) k/uL Sodium (137-145) mmol/L Creatinine (0.66-1.25) mg/dL Glucose (74-99) mg/dL POC Glucose (mg/dL) 168 H (70-110) mg/dL Calcium (8.4-10.2) mg/dL
[2023-08-16] MEDS: MAGNESIUM SULFATE-D5W PMX 1 GM in DEXTROSE/WATER 1 100ML.BAG IVPB ONE (12:19)
--- NOTE | 2023-08-16 14:37 | P.PN ---
Subjective Progress Note Date: 08/16/23 63-year-old patient, follows with Dr. Mendez. Chronic stable medical conditions include ADHD, herniated disc lower back, smoker. Sacral wounds. Left AKA. right above-knee amputation by Dr. Zee on April 2023 Recently presented, not being compliant. Smoking cigarettes. Recreational drugs. Patient has not followed up for his PICC line antibiotics last discharge and was discharged on oral Augmentin. Patient has seen Dr. Zee from vascular and wound care Dr. Bahena. Patient's son lives with him. Patient now presents with worsening sacral wound. Eating fair. Continues to smoke cigarettes. Does marijuana. Tired. Some wheezing shortness of breath. June: Patient seen by Dr. Zee. Sacral decubitus wound will be followed by Dr. Pabon's team. For possible diverting colostomy. Patient is on IV Zosyn. Eating well. Urine drug screen was positive for opiates, amphetamines, methamphetamines, marijuana. Home pain medications were resumed. July 1: Patient being scheduled for diverting colostomy on Tuesday with Dr. Pabon. And debridement of sacral ulcer on Tuesday. Continue antibiotics. Patient eating well. July 2: Laying in bed. Comfortable. Son and family visiting. Scheduled for surgery on Tuesday and Tuesday. Eating well. Antibiotics in place. July 3: Comfortable. Tolerating diet. Pending surgery tomorrow for diverting colostomy. Discussed with patient. July 31: Patient underwent diverting colostomy today. With sigmoid colectomy. Left-sided colostomy. Postprocedure tired. Laying in bed. Due for sacral wound debridement tomorrow. August 01: Patient underwent debridement of sacral decubitus ulcer by Dr. Pabon. Had a good supper. vaccine manager looking into discharge planning. August 02: Patient in bed. Son at the bedside. Spoke to the bilingual case manager Vernon to discover that patient actually has insurance. He should build to qualify for rehab. Looking into the same. Antibiotics to continue. PICC line was placed by Dr. Schulz from vascular today. August 03: Saw the patient this morning. Vomited twice. A bit dark-colored. Had dark-colored liquid output in the colostomy bag. Did not eat anything this morning. Diet was scaled back. Abdominal x-ray showed diffuse distention of the stomach and the small bowel. Small bowel was dilated up to 4.5 cm. Later patient is moved to the [facility] floor for telemetry. NG tube was placed. Dr Pabon from surgery is following. : NG tube to suction remains in place. Significant dark-colored output. Some output through the colostomy bag. Getting IV fluids. Tired August 05: NG tube remains to suction. Dark output. Some output liquidy through the colostomy bag. Tired. IV fluids. Replace IV potassium. August 06: NG tube remains in place. Output present. Some thickening of the output through the colostomy bag. Tired. Patient being visited by his daughter who lives down the road. She is offering to take care of the patient when he gets discharged. August 07: NG tube remains in place. Colostomy is putting out brown stool. Continue for suction as per surgery. August 08: Saw the patient twice today. In the morning and then later this evening. Patient again started vomiting. TPN was ordered and started this afternoon. I communicated with Janet CHAVES from surgery. Surgical team is suggesting comfort measures/hospice if no improvement. Late in the evening I d iscussed with the patient. He will also talk to his children. Continues to have nausea. 08/09. Patient seen and examined. Dr. Molina took over care. Currently has NG tube in. Currently on TPN. Discussed with patient regarding goals of care, patient not very keen to make any decision today 08/10. Patient seen and examined. Patient pulled out his NG tube overnight. Daughter is at the bedside, discussed with her regarding hospice, she is still thinking about it. 08/11. Patient seen and examined. Still not having much output from ostomy. Currently n.p.o., currently on TPN. Discussed with him again regarding hospice, patient states he is still not ready to make a decision. Lab work done this morning showed WBC 9.4, hemoglobin 8.5, sodium 134, potassium 4.2, BUN 14, creatinine 0.28, 08/13/23: patient was evaluated bedside, patient remains n.p.o. at this point. Continue patient on parenteral nutrition. Ostomy in place, receiving IV antibiotics will follow-up on x-ray KUB 08/14/2023: Patient seen and evaluated bedside, x-ray KUB reviewed gaseous distention noted patient had refused nasogastric tube. General surgery following continue to remain n.p.o. 08/15/2023 Patient is evaluated today resting in bed his daughter Rosa Maria at the bedside. Multiple questions regarding plan of care and the next steps which were answered. Patient has remained nothing by mouth for multiple days due to an abdominal ileus postoperatively. He has not had any output from his colostomy since surgery. He is found to have purulent drainage from the midline incision which was cultured and showing vancomycin-resistant Enterococcus and for this ID is following and he remains on IV daptomycin. Additionally this stage IV decubitus ulcer has positive wound cultures showing E. coli, Proteus, beta- hemolytic Streptococcus F. For this patient remains on Unasyn. Well as the IV daptomycin for coverage. Patient continues with local wound care with dressing changes and as needed for saturation the sacral decubitus ulceration. He is status postsurgical debridement of this. Patient has been maintained on TPN his sodium level is 130. Family is concerned as patient has not had any food by mouth. His daughter did give him a sip of coffee at the bedside with the hopes of stimulating his gastric motility however it was discussed the importance of remaining n.p.o. if ordered due to his ileus. He does have positive bowel sounds in all 4 quadrants today he is quite normoactive and discussed with general surgery he is cleared for some sips of clear liquids today. He has also been started on Enterag. Follow-up abdominal x-ray today reveals small amount of free intraperitoneal air likely postoperative. Comparison to be reduced in amount relative to 08/10/2023. There are dilated bowel loops that appear slightly improved with regard to number but similar distention. Findings compatible with a postoperative ileus. Patient will be monitored closely he had refused NG tube for the last couple days. His white blood cell count remains normal at 7.9, hemoglobin 7.8. His sodium level is 130, potassium 4.3, BUN of 13, creatinine of 0.31, blood glucose of 180s. His magnesium level is 2.1. Hemodynamically he is stable. 08/16/2023 Patient is seen in follow-up today on the medical floor. He continues with PICC line in place. Antibiotics in the form of IV daptomycin, IV Unasyn. ID following closely. Patient was started on Entereg yesterday with a diet started clear liquid. He has had multiple stools overnight and currently in his ostomy bag he has light brown loose stool. He has positive bowel sounds in all 4 quadrants and his abdomen is soft. Patient will be upgraded to a full liquid diet. Discussed with dietary for monitoring and they will begin to wean TPN once he is sustaining his caloric intake with diet. He will be given Ensure protein supplementation. White blood cell count today is up to 14.6, hemoglobin stable at 9.0. Sodium 131, BUN of 12, creatinine of 0.30. Magnesium 1.9. Hemodynamically he is stable. Review of Systems Constitutional: Denied any fatigue denied any fever. Cardio vascular: denied any chest pain, palpitations Gastrointestinal: denied any nausea, vomiting, diarrhea Pulmonary: Denied any shortness of breath cough, reports abdominal pain 8/10 at the abdominal incision. Neurologic denied any new focal deficits All inpatient medications were reviewed and appropriate changes in these medications as dictated in the interval history and assessment and plan. PHYSICAL EXAMINATION: GENERAL: The patient is alert and oriented x3, not in any acute distress. Chronically ill looking HEENT: Pupils are round and equally reacting to light. EOMI. No scleral icterus. No conjunctival pallor. Normocephalic, atraumatic. No pharyngeal erythema. No thyromegaly. CARDIOVASCULAR: S1 and S2 present. No murmurs, rubs, or gallops. PULMONARY: Coarse breath sounds bilaterally, no wheezing or crackles. ABDOMEN: Soft, ostomy in place, hypoactive bowel no stool in the ostomy has small amt of milky drainage. Midline abdominal incision in place with packing. MUSCULOSKELETAL: Bilateral AKA EXTREMITIES: No cyanosis, clubbing, or pedal edema. NEUROLOGICAL: Gross neurological examination did not reveal any focal deficits. SKIN: No rashes. Large stage iv decubitus ulceration with purulent drainage. Assessment and plan -Sacral decub ulcer with acute osteomyelitis and sepsis, POA. -S/p robotic diverting colostomy July 31/2024 done to promote wound healing of the sacral wound. -Small bowel obstruction with recurrent nausea and vomiting; postoperative ileus resolving. -Acute metabolic encephalopathy, toxic encephalopathy from recreational drugs -History of right above-knee amputation polymicrobial infection with bacteremia -Diabetes mellitus type 2 on insulin -History of COPD with no acute exacerbation -Tobacco use on nicotine dependence -Chronic medical debility nonambulatory -Bilateral above the knee amputee. GI prophylaxis Do Not Resuscitate/Do Not Intubate -Patient is post operative day #15 diverting colostomy, continue patient on TPN and diet has been advanced to full liquid diet and enterag has been discontinued. Abdominal xray reviewed by surgeon felt that the mention of intraperitoneal air was due to -Postoperative ileus with conservative management patient has been NPO with improvement in bowel sounds. Treated with IV reglan and patient has been refusing NG tube. Patient has been started on Enterag today by the surgical team. -In regards to ileus nasogastric tube insertion recommended however patient ad amantly refused, patient requesting diet -Regards to electrolyte abnormality follow-up on electrolyte panel continue patient on TPN dietary following. -Patient is status post debridement of the sacral wound and to continue with local wound care and IV antibiotics for the positive wound culture. ID following closely. -Continue Accu-Cheks continue patient on correctional insulin -PT/OT following patient and family not ready for hospice the goal is to get the patient to subacute rehab to continue with local wound care and IV antibiotics. ID and surgery following closely. Local wound care to the decubitus ulceration with absorptive silver, saline moist gauze, kerlex for packing and cover with ABD. Change the outer dressing as needed silver should remain in place for 48 hours. Follow up with wound care. Repeat labs in the AM. Greater than 35 minutes have been spent in coordination of care with the patient and family. The impression and plan of care has been dictated by Aisha Boswell Nurse Practitioner as directed. Dr. Evelyn MD I have performed a history and physical examination and medical decision making of this patient, discussed the same with the dictator, and agree with the dictators assessment and plan as written, documented as a scribe. Based on total visit time, I have performed more than 50% of this visit. Objective - Vital Signs Vital signs: Vital Signs Temp 99.3 F 08/16/23 08:00 Pulse 95 08/16/23 08:00 Resp 19 08/16/23 08:00 BP 101/65 08/16/23 08:00 Pulse Ox 92 L 08/16/23 08:00 FiO2 21 08/08/23 08:45 Intake & Output 08/15/23 08/16/23 08/16/23 18:59 06:59 18:59 Intake Total 727 461 6853 Output Total 1800 1200 Balance -970 -963 1063 Weight 41 kg Intake: Intake, IV Titration 650 1063 Amount Ampicillin-Sulbactam 3 gm 200 In Sodium Chloride 0.9% 100 ml @ 200 mls/hr IVPB Q6HR [facility] Rx#:[id number] DAPTOmycin 250 mg In 50 Sodium Chloride 0.9% 50 ml @ 100 mls/hr IVPB Q24HR [facility] Rx#:[id number] Mvi, Adult No.4 with Vit 400 K 10 ml Trace (Conc-1Ml/ Dose) 1 ml Sodium Acetate 50 meq Potassium Chloride 16 meq Magnesium Sulfate gm 0.5 gm Calcium Gluconate 1 gm In Amino Acids 5 %/Dextrose 20 % 1,000 ml @ 52 mls/ hr IV .[id number] [facility] Rx#: [id number] Mvi, Adult No.4 with Vit 1063 K 10 ml Trace (Conc-1Ml/ Dose) 1 ml Sodium Acetate 70 meq Potassium Chloride 8 meq Magnesium Sulfate gm 0.5 gm Calcium Gluconate 1 gm Potassium Phosphate 6 mmol In Amino Acids 5 %/Dextrose 20 % 1,000 ml @ 52 mls/hr IV .[id number] [facility] Rx#: [id number] Oral 180 237 Output: Urine 1800 1200 Other: Voiding Method Indwelling Catheter Indwelling Catheter Indwelling Catheter # Bowel Movements 1 - Labs CBC & Chem 7: 08/16/23 09:19 08/16/23 09:19 Labs: Abnormal Lab Results - Last 24 Hours (Table) 08/15/23 08/16/23 08/16/23 Range/Units 20:00 05:56 09:19 WBC (3.8-10.6) k/uL RBC (4.30-5.90) m/uL Hgb (13.0-17.5) gm/dL Hct (39.0-53.0) % MCH (25.0-35.0) pg MCHC (31.0-37.0) g/dL RDW (11.5-15.5) % Plt Count (150-450) k/uL Neutrophils # (1.3-7.7) k/uL Sodium 131 L (137-145) mmol/L Creatinine 0.30 L (0.66-1.25) mg/dL Glucose 205 H (74-99) mg/dL POC Glucose (mg/dL) 146 H 210 H (70-110) mg/dL Calcium 7.7 L (8.4-10.2) mg/dL 08/16/23 08/16/23 Range/Units 09:19 11:36 WBC 14.6 H (3.8-10.6) k/uL RBC 3.62 L (4.30-5.90) m/uL Hgb 9.0 L (13.0-17.5) gm/dL Hct 29.7 L (39.0-53.0) % MCH 24.8 L (25.0-35.0) pg MCHC 30.3 L (31.0-37.0) g/dL RDW 15.7 H (11.5-15.5) % Plt Count 646 H (150-450) k/uL Neutrophils # 12.2 H (1.3-7.7) k/uL Sodium (137-145) mmol/L Creatinine (0.66-1.25) mg/dL Glucose (74-99) mg/dL POC Glucose (mg/dL) 168 H (70-110) mg/dL Calcium (8.4-10.2) mg/dL Assessment and Plan Time with Patient: Less than 30
--- NOTE | 2023-08-16 14:52 | P.PN ---
Subjective Progress Note Date: 08/16/23 Principal diagnosis: Reason for follow-up is infected sacral pressure ulcer Patient is a 63-year-old male with a past medical history significant for diabetes mellitus in this patient who did have a history of PAD s/p bilateral [id number] amputation and did have a stage IV sacral pressure ulcer that has been there for a few months, noncompliance with the previous IV and local care treatment presented to hospital with worsening wound and fever, Patient is status post sigmoid colectomy with end colostomy completed on 08/01/2023 and the patient is status post excision debridement of his sacral pressure ulcer by general surgery completed on 08/02/2023 On today's evaluation that is 08/16/2023, patient has been afebrile, patient is breathing comfortably and is currently on room air, patient denies having any significant cough no chest pain shortness of breath, patient denies nausea vomiting abdominal pain is controlled and did have a significant output in the colostomy. Patient white count is 14.6 today, creatinine 0.30 Objective - Vital Signs Vital signs: Vital Signs Temp 99.3 F 08/16/23 08:00 Pulse 95 08/16/23 08:00 Resp 19 08/16/23 08:00 BP 101/65 08/16/23 08:00 Pulse Ox 92 L 08/16/23 08:00 FiO2 21 08/08/23 08:45 Intake & Output 08/15/23 08/16/23 08/16/23 18:59 06:59 18:59 Intake Total 766 234 5533 Output Total 1800 1200 Balance -970 -963 1063 Weight 41 kg Intake: Intake, IV Titration 650 1063 Amount Ampicillin-Sulbactam 3 gm 200 In Sodium Chloride 0.9% 100 ml @ 200 mls/hr IVPB Q6HR [facility] Rx#:[id number] DAPTOmycin 250 mg In 50 Sodium Chloride 0.9% 50 ml @ 100 mls/hr IVPB Q24HR [facility] Rx#:[id number] Mvi, Adult No.4 with Vit 400 K 10 ml Trace (Conc-1Ml/ Dose) 1 ml Sodium Acetate 50 meq Potassium Chloride 16 meq Magnesium Sulfate gm 0.5 gm Calcium Gluconate 1 gm In Amino Acids 5 %/Dextrose 20 % 1,000 ml @ 52 mls/ hr IV .[id number] [facility] Rx#: [id number] Mvi, Adult No.4 with Vit 1063 K 10 ml Trace (Conc-1Ml/ Dose) 1 ml Sodium Acetate 70 meq Potassium Chloride 8 meq Magnesium Sulfate gm 0.5 gm Calcium Gluconate 1 gm Potassium Phosphate 6 mmol In Amino Acids 5 %/Dextrose 20 % 1,000 ml @ 52 mls/hr IV .[id number] [facility] Rx#: [id number] Oral 180 237 Output: Urine 1800 1200 Other: Voiding Method Indwelling Catheter Indwelling Catheter Indwelling Catheter # Bowel Movements 1 - Exam GENERAL DESCRIPTION: Middle-age male lying in bed in no distress RESPIRATORY SYSTEM: Unlabored breathing , decreased breath sounds at bases HEART: S1 S2 regular rate and rhythm , ABDOMEN: Soft , no tenderness EXTREMITIES: Bilateral AKA stump no redness or drainage - Labs CBC & Chem 7: 08/16/23 09:19 08/16/23 09:19 Labs: Abnormal Lab Results - Last 24 Hours (Table) 08/15/23 08/16/23 08/16/23 Range/Units 20:00 05:56 09:19 WBC (3.8-10.6) k/uL RBC (4.30-5.90) m/uL Hgb (13.0-17.5) gm/dL Hct (39.0-53.0) % MCH (25.0-35.0) pg MCHC (31.0-37.0) g/dL RDW (11.5-15.5) % Plt Count (150-450) k/uL Neutrophils # (1.3-7.7) k/uL Sodium 131 L (137-145) mmol/L Creatinine 0.30 L (0.66-1.25) mg/dL Glucose 205 H (74-99) mg/dL POC Glucose (mg/dL) 146 H 210 H (70-110) mg/dL Calcium 7.7 L (8.4-10.2) mg/dL 08/16/23 08/16/23 Range/Units 09:19 11:36 WBC 14.6 H (3.8-10.6) k/uL RBC 3.62 L (4.30-5.90) m/uL Hgb 9.0 L (13.0-17.5) gm/dL Hct 29.7 L (39.0-53.0) % MCH 24.8 L (25.0-35.0) pg MCHC 30.3 L (31.0-37.0) g/dL RDW 15.7 H (11.5-15.5) % Plt Count 646 H (150-450) k/uL Neutrophils # 12.2 H (1.3-7.7) k/uL Sodium (137-145) mmol/L Creatinine (0.66-1.25) mg/dL Glucose (74-99) mg/dL POC Glucose (mg/dL) 168 H (70-110) mg/dL Calcium (8.4-10.2) mg/dL Assessment and Plan (1) Sacral decubitus ulcer, stage IV Current Visit: Yes Status: Acute Code(s): L89.154 - PRESSURE ULCER OF SACRAL REGION, STAGE 4 SNOMED Code(s): 12504067244136 (2) Sacral osteomyelitis Current Visit: No Status: Acute Code(s): M46.28 - OSTEOMYELITIS OF VERTEBRA, SACRAL AND SACROCOCCYGEAL REGION SNOMED Code(s): 640808290 (3) Positive blood culture Current Visit: Yes Status: Acute Code(s): R78.81 - BACTEREMIA SNOMED Code(s): 916207811 (4) VRE (vancomycin resistant enterococcus) culture positive Current Visit: Yes Status: Acute Code(s): Z22.39 - CARRIER OF OTHER SPECIFIED BACTERIAL DISEASES SNOMED Code(s): 624851652 Plan: 1patient was in the hospital with sepsis in this patient who did have a fever tachycardia elevated white count source is infected sacral pressure ulcer likely stage IV with underlying osteomyelitis in this patient wound has been there for couple of months now and noncompliance with treatment in the outpatient setting 2-positive blood culture more likely related to his infected sacral pressure ulcer, blood culture has been repeated to document clearance of bacteremia and repeat blood culture negative 3-The patient local culture grew E. coli and Proteus and beta-hemolytic Streptococcus 4-patient is status post diverting colostomy and surgical debridement of his large sacral pressure ulcer 5-patient did have a PICC line placement on 08/03/2023 6patient did have a abdominal wound cultures obtained after removal of the stitches which is now growing VRE 7-patient remains to be afebrile, the patient white count slightly up today that we will monitor closely, patient to continue with the Unasyn and continue supportive care Dictation was produced using [employer] dictation software. please excuse any grammatical, word or spelling errors. Time with Patient: Less than 30
[2023-08-16 16:21] LABS: Glucose,Whole Blood 439 mg/dL (70-110)
[2023-08-16 16:23] LABS: Glucose,Whole Blood 329 mg/dL (70-110)
[2023-08-16 20:13] LABS: Glucose,Whole Blood 265 mg/dL (70-110)
[2023-08-17 06:07] LABS: Glucose,Whole Blood 224 mg/dL (70-110)
[2023-08-17 08:40] LABS: HCT 27.4 % (39.0-53.0); HGB 8.2 gm/dL (13.0-17.5); Hypochromasia Marked; MCH 24.4 pg (25.0-35.0); MCHC 29.8 g/dL (31.0-37.0); MCV 81.9 fL (80.0-100.0); Mean Platelet Volume 6.7; Platelet Count 610 k/uL (150-450); RBC 3.35 m/uL (4.30-5.90); RDW 15.5 % (11.5-15.5); WBC 11.5 k/uL (3.8-10.6)
[2023-08-17] MEDS: [UNRECOGNIZED DRUG - REMARK] IV SCH (08:44)
[2023-08-17 08:55] LABS: African American GFR (CKD) >90 (>60 ml/min/1.73 sqM); Anion Gap 3 mmol/L; Blood Urea Nitrogen 10 mg/dL (9-20); Calcium 7.6 mg/dL (8.4-10.2); Carbon Dioxide 26 mmol/L (22-30); Chloride 105 mmol/L (98-107); Glucose 224 mg/dL (74-99); Non-African American GFR(CKD) >90 (>60 ml/min/1.73 sqM); Potassium 3.6 mmol/L (3.5-5.1); Sodium 134 mmol/L (137-145)
[2023-08-17 08:56] LABS: Phosphorus 2.8 mg/dL (2.5-4.5)
--- NOTE | 2023-08-17 10:33 | P.PN ---
Subjective Progress Note Date: 08/17/23 This is a 63-year-old gentleman with past medical history significant for stage IV sacral decubitus ulcer previous surgical debridements, diabetes and current every day smoker. Patient was seen approximately 6 weeks ago status post a surgical debridement at that time. There is difficulties with dressing changes secondary to the proximity to the anal opening. There is also significant difficulty with compliance. Patient has a large amount of exudative film in the decubitus. Significant amount of depth and probable palpable bone. Due to the location the ulceration would be difficult to utilize a negative pressure wound VAC. 08/10/2023: Requested to re-Evaluate patient after surgical debridement. Patient had surgical debridement to sacral ulceration and bilateral posterior trochanter ulcerations. Ulceration shows minimal granulation with slough and nonviable tissue still present tunneling and undermining noted. Been utilizing wet-to-dry Kerlix dressing. We will continue with the absorptive silver dressing to the site. 08/17/2023: Requested to reevaluate patient for consideration for hyperbaric oxygen therapy. Discussed with patient that hyperbaric therapy plan of care and steps for approval through insurance. Plan of care consists of Tuesday through Tuesday treatments at 2.5 NINFA's for 2-1/2 hours for 40 treatments. Treatments would not be able to start until patient is discharged if patient is discharged to a facility approval from the facility and insurance or patient has to be a resident for 90 days to the facility to qualify. Discussed with patient the mo ed for pulmonary clearance related to every day smoker. Discussed with patient the importance of compliance. An order for hyperbaric oxygen therapy to be beneficial patient must commit to Tuesday through Tuesday visits for 40 visits. Patient has been seen in the wound care center previously and has stopped treatment due to noncompliance. Patient stated that he would discuss it with family. Review Of Systems: Constitutional: No fever, no chills, no night sweats. No weight change. No weakness, fatigue or lethargy. No daytime sleepiness. Integumentary:reports wounds, no lesions. No rash or pruritus. No unusual bruising. No change in hair or nails. Physical exam: General Appearance: Alert, cooperative, no distress, appears stated age.Patient also want a colostomy to help facilitate healing prognosis remains guarded Skin: See HPI all other Skin color, texture, tugor normal, no rashes or lesions. Neurologic: Alert oriented x3 Assessment: 1. Stage IV sacral ulceration 2. Osteomyelitis Plan: 1. Apply absorptive silver, saline moist gauze, Kerlix for packing and cover with ABD. Secure with tape. May change the outer dressing as needed keep silver in place for at least 48 hours. 2. Hyperbaric oxygen therapy may be considered upon discharge. Please contact the wound care center to set up evaluation and process for insurance approval. Thank you for the consultation any questions please contact the wound care center DNP note has been reviewed and discussed with Dr. Conway and the impression and plan of care has been directed as dictated. Objective - Vital Signs Vital signs: Vital Signs Temp 99.1 F 08/17/23 08:00 Pulse 91 08/17/23 08:00 Resp 18 08/17/23 08:00 BP 115/68 08/17/23 08:00 Pulse Ox 97 08/17/23 08:00 FiO2 21 08/08/23 08:45 Intake & Output 08/16/23 08/17/23 08/17/23 18:59 06:59 18:59 Intake Total 1543 0 Output Total 850 400 50 Balance 693 -400 -50 Weight 41 kg Intake: Intake, IV Titration 1063 Amount Mvi, Adult No.4 with Vit 1063 K 10 ml Trace (Conc-1Ml/ Dose) 1 ml Sodium Acetate 70 meq Potassium Chloride 8 meq Magnesium Sulfate gm 0.5 gm Calcium Gluconate 1 gm Potassium Phosphate 6 mmol In Amino Acids 5 %/Dextrose 20 % 1,000 ml @ 52 mls/hr IV .[id number] [facility] Rx#: [id number] Oral 480 0 Output: Urine 600 400 Stool 250 50 Other: Voiding Method Indwelling Catheter Indwelling Catheter Indwelling Catheter - Labs CBC & Chem 7: 08/17/23 08:23 08/17/23 08:23 Labs: Abnormal Lab Results - Last 24 Hours (Table) 08/16/23 08/16/23 08/16/23 Range/Units 11:36 16:20 16:21 WBC (3.8-10.6) k/uL RBC (4.30-5.90) m/uL Hgb (13.0-17.5) gm/dL Hct (39.0-53.0) % MCH (25.0-35.0) pg MCHC (31.0-37.0) g/dL Plt Count (150-450) k/uL Sodium (137-145) mmol/L Creatinine (0.66-1.25) mg/dL Glucose (74-99) mg/dL POC Glucose (mg/dL) 168 H 439 H 329 H (70-110) mg/dL Calcium (8.4-10.2) mg/dL 08/16/23 08/17/23 08/17/23 Range/Units 20:08 06:02 08:23 WBC (3.8-10.6) k/uL RBC (4.30-5.90) m/uL Hgb (13.0-17.5) gm/dL Hct (39.0-53.0) % MCH (25.0-35.0) pg MCHC (31.0-37.0) g/dL Plt Count (150-450) k/uL Sodium 134 L (137-145) mmol/L Creatinine 0.30 L (0.66-1.25) mg/dL Glucose 224 H (74-99) mg/dL POC Glucose (mg/dL) 265 H 224 H (70-110) mg/dL Calcium 7.6 L (8.4-10.2) mg/dL 08/17/23 Range/Units 08:23 WBC 11.5 H (3.8-10.6) k/uL RBC 3.35 L (4.30-5.90) m/uL Hgb 8.2 L (13.0-17.5) gm/dL Hct 27.4 L (39.0-53.0) % MCH 24.4 L (25.0-35.0) pg MCHC 29.8 L (31.0-37.0) g/dL Plt Count 610 H (150-450) k/uL Sodium (137-145) mmol/L Creatinine (0.66-1.25) mg/dL Glucose (74-99) mg/dL POC Glucose (mg/dL) (70-110) mg/dL Calcium (8.4-10.2) mg/dL Assessment and Plan (1) Sacral decubitus ulcer, stage IV Current Visit: Yes Status: Acute Code(s): L89.154 - PRESSURE ULCER OF SACRAL REGION, STAGE 4 SNOMED Code(s): 19042316624339 (2) Type 2 diabetes mellitus with other skin ulcer Current Visit: Yes Status: Acute Code(s): E11.622 - TYPE 2 DIABETES MELLITUS WITH OTHER SKIN ULCER; L98.499 - NON-PRESSURE CHRONIC ULCER OF SKIN OF SITES W UNSP SEVERITY SNOMED Code(s): 469831330 (3) Osteomyelitis, unspecified Current Visit: Yes Status: Acute Code(s): M86.9 - OSTEOMYELITIS, UNSPECIFIED SNOMED Code(s): 28858627
[2023-08-17 11:21] LABS: Glucose,Whole Blood 362 mg/dL (70-110)
--- NOTE | 2023-08-17 13:53 | P.PN ---
Subjective Progress Note Date: 08/17/23 63-year-old patient, follows with Dr. Mendez. Chronic stable medical conditions include ADHD, herniated disc lower back, smoker. Sacral wounds. Left AKA. right above-knee amputation by Dr. Zee on April 2023 Recently presented, not being compliant. Smoking cigarettes. Recreational drugs. Patient has not followed up for his PICC line antibiotics last discharge and was discharged on oral Augmentin. Patient has seen Dr. Zee from vascular and wound care Dr. Bahena. Patient's son lives with him. Patient now presents with worsening sacral wound. Eating fair. Continues to smoke cigarettes. Does marijuana. Tired. Some wheezing shortness of breath. June: Patient seen by Dr. Zee. Sacral decubitus wound will be followed by Dr. Pabon's team. For possible diverting colostomy. Patient is on IV Zosyn. Eating well. Urine drug screen was positive for opiates, amphetamines, methamphetamines, marijuana. Home pain medications were resumed. July 1: Patient being scheduled for diverting colostomy on Tuesday with Dr. Pabon. And debridement of sacral ulcer on Tuesday. Continue antibiotics. Patient eating well. July 2: Laying in bed. Comfortable. Son and family visiting. Scheduled for surgery on Tuesday and Tuesday. Eating well. Antibiotics in place. July 3: Comfortable. Tolerating diet. Pending surgery tomorrow for diverting colostomy. Discussed with patient. July 31: Patient underwent diverting colostomy today. With sigmoid colectomy. Left-sided colostomy. Postprocedure tired. Laying in bed. Due for sacral wound debridement tomorrow. August 01: Patient underwent debridement of sacral decubitus ulcer by Dr. Pabon. Had a good supper. internet cafe manager looking into discharge planning. August 02: Patient in bed. Son at the bedside. Spoke to the case worker Vernon to discover that patient actually has insurance. He should build to qualify for rehab. Looking into the same. Antibiotics to continue. PICC line was placed by Dr. Schulz from vascular today. August 03: Saw the patient this morning. Vomited twice. A bit dark-colored. Had dark-colored liquid output in the colostomy bag. Did not eat anything this morning. Diet was scaled back. Abdominal x-ray showed diffuse distention of the stomach and the small bowel. Small bowel was dilated up to 4.5 cm. Later patient is moved to the [facility] floor for telemetry. NG tube was placed. Dr Pabon from surgery is following. : NG tube to suction remains in place. Significant dark-colored output. Some output through the colostomy bag. Getting IV fluids. Tired August 05: NG tube remains to suction. Dark output. Some output liquidy through the colostomy bag. Tired. IV fluids. Replace IV potassium. August 06: NG tube remains in place. Output present. Some thickening of the output through the colostomy bag. Tired. Patient being visited by his daughter who lives down the road. She is offering to take care of the patient when he gets discharged. August 07: NG tube remains in place. Colostomy is putting out brown stool. Continue for suction as per surgery. August 08: Saw the patient twice today. In the morning and then later this evening. Patient again started vomiting. TPN was ordered and started this afternoon. I communicated with Janet CHAVES from surgery. Surgical team is suggesting comfort measures/hospice if no improvement. Late in the evening I d iscussed with the patient. He will also talk to his children. Continues to have nausea. 08/09. Patient seen and examined. Dr. Molina took over care. Currently has NG tube in. Currently on TPN. Discussed with patient regarding goals of care, patient not very keen to make any decision today 08/10. Patient seen and examined. Patient pulled out his NG tube overnight. Daughter is at the bedside, discussed with her regarding hospice, she is still thinking about it. 08/11. Patient seen and examined. Still not having much output from ostomy. Currently n.p.o., currently on TPN. Discussed with him again regarding hospice, patient states he is still not ready to make a decision. Lab work done this morning showed WBC 9.4, hemoglobin 8.5, sodium 134, potassium 4.2, BUN 14, creatinine 0.28, 08/13/23: patient was evaluated bedside, patient remains n.p.o. at this point. Continue patient on parenteral nutrition. Ostomy in place, receiving IV antibiotics will follow-up on x-ray KUB 08/14/2023: Patient seen and evaluated bedside, x-ray KUB reviewed gaseous distention noted patient had refused nasogastric tube. General surgery following continue to remain n.p.o. 08/15/2023 Patient is evaluated today resting in bed his daughter Rosa Maria at the bedside. Multiple questions regarding plan of care and the next steps which were answered. Patient has remained nothing by mouth for multiple days due to an abdominal ileus postoperatively. He has not had any output from his colostomy since surgery. He is found to have purulent drainage from the midline incision which was cultured and showing vancomycin-resistant Enterococcus and for this ID is following and he remains on IV daptomycin. Additionally this stage IV decubitus ulcer has positive wound cultures showing E. coli, Proteus, beta- hemolytic Streptococcus F. For this patient remains on Unasyn. Well as the IV daptomycin for coverage. Patient continues with local wound care with dressing changes and as needed for saturation the sacral decubitus ulceration. He is status postsurgical debridement of this. Patient has been maintained on TPN his sodium level is 130. Family is concerned as patient has not had any food by mouth. His daughter did give him a sip of coffee at the bedside with the hopes of stimulating his gastric motility however it was discussed the importance of remaining n.p.o. if ordered due to his ileus. He does have positive bowel sounds in all 4 quadrants today he is quite normoactive and discussed with general surgery he is cleared for some sips of clear liquids today. He has also been started on Enterag. Follow-up abdominal x-ray today reveals small amount of free intraperitoneal air likely postoperative. Comparison to be reduced in amount relative to 08/10/2023. There are dilated bowel loops that appear slightly improved with regard to number but similar distention. Findings compatible with a postoperative ileus. Patient will be monitored closely he had refused NG tube for the last couple days. His white blood cell count remains normal at 7.9, hemoglobin 7.8. His sodium level is 130, potassium 4.3, BUN of 13, creatinine of 0.31, blood glucose of 180s. His magnesium level is 2.1. Hemodynamically he is stable. 08/16/2023 Patient is seen in follow-up today on the medical floor. He continues with PICC line in place. Antibiotics in the form of IV daptomycin, IV Unasyn. ID following closely. Patient was started on Entereg yesterday with a diet started clear liquid. He has had multiple stools overnight and currently in his ostomy bag he has light brown loose stool. He has positive bowel sounds in all 4 quadrants and his abdomen is soft. Patient will be upgraded to a full liquid diet. Discussed with dietary for monitoring and they will begin to wean TPN once he is sustaining his caloric intake with diet. He will be given Ensure protein supplementation. White blood cell count today is up to 14.6, hemoglobin stable at 9.0. Sodium 131, BUN of 12, creatinine of 0.30. Magnesium 1.9. Hemodynamically he is stable. 08/17/2023 Patient is evaluated in follow-up today on the medical floor. PICC line is in place for outpatient antibiotic therapy discussed with infectious disease with current recommendations for daptomycin and Unasyn through the IV for 2 weeks. Patient is now postoperative day #16 diverting ostomy secondary to a large stage IV sacral decubitus ulceration. He continues with local wound care and being followed closely by the wound care team through [facility]. Patient's daughter had inquired about hyperbaric oxygen therapy for this patient this was discussed with wound care who followed up. Current recommendations are that patient needs to be at rehab for 90 days prior to being considered for hyperbaric oxygen therapy. Treatments would then be 5 days a week for 2 and half hours at a time. Patient will need to be smoke-free and this is discussed with the patient that he would not be able to be smoking cigarettes or marijuana before he is considered for this type of therapy. Patient is unsure if he will be able to do that. He is also unsure if he would be able to tolerate the duration of the oxygen chamber. He is also worried about transportation from home it is discussed with the patient that he will need to go to subacute rehab for snf for wound care and antibiotic therapy on discharge. He is continue to make stool from the ostomy. He has normal active bowel sounds. He is currently on a full liquid diet. White blood cell count is down to 11.5, hemoglobin stable at 8.2, sodium level of 144, BUN of 10, creatinine of 0.30 his blood glucose is in the 300s. Magnesium of 2.0. Hemodynamically he is stable. Patient was brought in marijuana Gummies by his family which were removed by staff and are in safe holding for patient upon discharge. Review of Systems Constitutional: Denied any fatigue denied any fever. Cardio vascular: denied any chest pain, palpitations Gastrointestinal: denied any nausea, vomiting, diarrhea Pulmonary: Denied any shortness of breath cough, reports abdominal pain 8/10 at the abdominal incision. Neurologic denied any new focal deficits All inpatient medications were reviewed and appropriate changes in these medications as dictated in the interval history and assessment and plan. PHYSICAL EXAMINATION: GENERAL: The patient is alert and oriented x3, not in any acute distress. Chronically ill looking HEENT: Pupils are round and equally reacting to light. EOMI. No scleral icterus. No conjunctival pallor. Normocephalic, atraumatic. No pharyngeal erythema. No thyromegaly. CARDIOVASCULAR: S1 and S2 present. No murmurs, rubs, or gallops. PULMONARY: Coarse breath sounds bilaterally, no wheezing or crackles. ABDOMEN: Soft, ostomy in place, hypoactive bowel no stool in the ostomy has small amt of milky drainage. Midline abdominal incision in place with packing. MUSCULOSKELETAL: Bilateral AKA EXTREMITIES: No cyanosis, clubbing, or pedal edema. NEUROLOGICAL: Gross neurological examination did not reveal any focal deficits. SKIN: No rashes. Large stage iv decubitus ulceration with purulent drainage. Assessment and plan -Sacral decub ulcer with acute osteomyelitis and sepsis, POA. -S/p robotic diverting colostomy July 31/2024 done to promote wound healing of the sacral wound. -Small bowel obstruction with recurrent nausea and vomiting; postoperative ileus resolving. -Acute metabolic encephalopathy, toxic encephalopathy from recreational drugs -History of right above-knee amputation polymicrobial infection with bacteremia -Diabetes mellitus type 2 on insulin -History of COPD with no acute exacerbation -Tobacco use on nicotine dependence -Chronic medical debility nonambulatory -Bilateral above the knee amputee. GI prophylaxis Do Not Resuscitate/Do Not Intubate -Patient is post operative day #16diverting colostomy, continue patient on TPN and diet has been advanced to full liquid diet and enterag has been discontinu ed. Abdominal xray reviewed by surgeon felt that the mention of intraperitoneal air was due to surgery -Postoperative ileus with conservative management, resolving patient has refused NG tube and was started on enterag he is now having bowel movements and upgraded to a full liquid diet. -In regards to ileus nasogastric tube insertion recommended however patient adamantly refused, patient requesting diet -Regards to electrolyte abnormality follow-up on electrolyte panel continue patient on TPN dietary following. TPN is being weaned. -Patient is status post debridement of the sacral wound and to continue with local wound care and IV antibiotics for the positive wound culture. ID following closely. -Continue Accu-Cheks continue patient on correctional insulin -PT/OT following patient and family not ready for hospice the goal is to get the patient to subacute rehab to continue with local wound care and IV antibiotics. ID and surgery following closely. Local wound care to the decubitus ulceration with absorptive silver, saline moist gauze, kerlex for packing and cover with ABD. Change the outer dressing as needed silver should remain in place for 48 hours. Follow up with wound care. As above recommendations for the hyperbaric oxygen chamber are that patient needs to be at rehab for 90 days before his is considered for treatments. He has been non compliant with follows up in the past at the wound care center. This was discussed in extent with patient at the bedside. [facility] in the next 48 hours. The impression and plan of care has been dictated by Aisha Boswell, Nurse Practitioner as directed. Dr. Evelyn MD I have performed a history and physical examination and medical decision making of this patient, discussed the same with the dictator, and agree with the dictators assessment and plan as written, documented as a scribe. Based on total visit time, I have performed more than 50% of this visit. Objective - Vital Signs Vital signs: Vital Signs Temp 98.8 F 08/17/23 12:02 Pulse 95 08/17/23 12:02 Resp 19 08/17/23 12:02 BP 120/72 08/17/23 12:02 Pulse Ox 98 08/17/23 12:02 FiO2 21 08/08/23 08:45 Intake & Output 08/16/23 08/17/23 08/17/23 18:59 06:59 18:59 Intake Total 1543 0 Output Total 850 400 50 Balance 693 -400 -50 Weight 41 kg Intake: Intake, IV Titration 1063 Amount Mvi, Adult No.4 with Vit 1063 K 10 ml Trace (Conc-1Ml/ Dose) 1 ml Sodium Acetate 70 meq Potassium Chloride 8 meq Magnesium Sulfate gm 0.5 gm Calcium Gluconate 1 gm Potassium Phosphate 6 mmol In Amino Acids 5 %/Dextrose 20 % 1,000 ml @ 52 mls/hr IV .[id number] [facility] Rx#: [id number] Oral 480 0 Output: Urine 600 400 Stool 250 50 Other: Voiding Method Indwelling Catheter Indwelling Catheter Indwelling Catheter - Labs CBC & Chem 7: 08/17/23 08:23 08/17/23 08:23 Labs: Abnormal Lab Results - Last 24 Hours (Table) 08/16/23 08/16/23 08/16/23 Range/Units 16:20 16:21 20:08 WBC (3.8-10.6) k/uL RBC (4.30-5.90) m/uL Hgb (13.0-17.5) gm/dL Hct (39.0-53.0) % MCH (25.0-35.0) pg MCHC (31.0-37.0) g/dL Plt Count (150-450) k/uL Sodium (137-145) mmol/L Creatinine (0.66-1.25) mg/dL Glucose (74-99) mg/dL POC Glucose (mg/dL) 439 H 329 H 265 H (70-110) mg/dL Calcium (8.4-10.2) mg/dL 08/17/23 08/17/23 08/17/23 Range/Units 06:02 08:23 08:23 WBC 11.5 H (3.8-10.6) k/uL RBC 3.35 L (4.30-5.90) m/uL Hgb 8.2 L (13.0-17.5) gm/dL Hct 27.4 L (39.0-53.0) % MCH 24.4 L (25.0-35.0) pg MCHC 29.8 L (31.0-37.0) g/dL Plt Count 610 H (150-450) k/uL Sodium 134 L (137-145) mmol/L Creatinine 0.30 L (0.66-1.25) mg/dL Glucose 224 H (74-99) mg/dL POC Glucose (mg/dL) 224 H (70-110) mg/dL Calcium 7.6 L (8.4-10.2) mg/dL 08/17/23 Range/Units 11:14 WBC (3.8-10.6) k/uL RBC (4.30-5.90) m/uL Hgb (13.0-17.5) gm/dL Hct (39.0-53.0) % MCH (25.0-35.0) pg MCHC (31.0-37.0) g/dL Plt Count (150-450) k/uL Sodium (137-145) mmol/L Creatinine (0.66-1.25) mg/dL Glucose (74-99) mg/dL POC Glucose (mg/dL) 362 H (70-110) mg/dL Calcium (8.4-10.2) mg/dL Assessment and Plan Time with Patient: Less than 30
[2023-08-17 14:49] LABS: Eosinophils # (M) 0.69 k/uL (0-0.7); Lymphocytes # (M) 1.27 k/uL (1.0-4.8); Monocytes # (M) 0.35 k/uL (0-1.0); Neutrophils % (M) 80 %; Nucleated Red Blood Cells 0 /100 WBC (0-0); Total Cells Counted 100
--- NOTE | 2023-08-17 15:19 | P.PN ---
Subjective Progress Note Date: 08/17/23 CHIEF COMPLAINT: Sacral decubitus ulcers HISTORY OF PRESENT ILLNESS: Patient is status post diverting colostomy on 08/01/23 and is status post debridement of decubitus ulcer on 08/02/23. Patient having output through his ostomy. He denies any new abdominal pain. He is still having drainage from his incision site. Denies any nausea or vomiting. Afebrile. WBC is down from 14.6 to 11.5 PHYSICAL EXAM: VITAL SIGNS: Reviewed. GENERAL: no acute distress. ABDOMEN: Nondistended. Nontender. Drainage from incision site. Incisional wick in place. Ostomy with stool present ASSESSMENT: 1. Stage IV sacral decubitus ulcers with osteomyelitis 2. Sepsis 3. Hyponatremia 4. Diabetes mellitus 5. Medical noncompliance 6. Ileus resolving 7. Hypokalemia improved 8. Infection at abdominal incision site 9. Patient is noncompliant PLAN: -Advance diet to regular -Wean off TPN -Patient can be discharged from surgical standpoint when medically cleared -Discontinue Reglan -Recommend comfort care measures -Antibiotics per ID service -Continue local wound care per wound care service for sacral ulcer -Continue local wound care to abdominal incision -Encourage patient to offload and stay off buttocks -repeat CBC in AM Physician Corrosion Control Engineer note has been reviewed by physician. Signing provider agrees with the documented findings, assessment, and plan of care. Objective - Vital Signs Vital signs: Vital Signs Temp 98.8 F 08/17/23 12:02 Pulse 95 08/17/23 12:02 Resp 19 08/17/23 12:02 BP 120/72 08/17/23 12:02 Pulse Ox 98 08/17/23 12:02 FiO2 21 08/08/23 08:45 Intake & Output 08/16/23 08/17/23 08/17/23 18:59 06:59 18:59 Intake Total 1543 0 Output Total 850 400 50 Balance 693 -400 -50 Weight 41 kg Intake: Intake, IV Titration 1063 Amount Mvi, Adult No.4 with Vit 1063 K 10 ml Trace (Conc-1Ml/ Dose) 1 ml Sodium Acetate 70 meq Potassium Chloride 8 meq Magnesium Sulfate gm 0.5 gm Calcium Gluconate 1 gm Potassium Phosphate 6 mmol In Amino Acids 5 %/Dextrose 20 % 1,000 ml @ 52 mls/hr IV .[id number] [facility] Rx#: [id number] Oral 480 0 Output: Urine 600 400 Stool 250 50 Other: Voiding Method Indwelling Catheter Indwelling Catheter Indwelling Catheter - Labs CBC & Chem 7: 08/17/23 08:23 08/17/23 08:23 Labs: Abnormal Lab Results - Last 24 Hours (Table) 08/16/23 08/16/23 08/16/23 Range/Units 16:20 16:21 20:08 WBC (3.8-10.6) k/uL RBC (4.30-5.90) m/uL Hgb (13.0-17.5) gm/dL Hct (39.0-53.0) % MCH (25.0-35.0) pg MCHC (31.0-37.0) g/dL Plt Count (150-450) k/uL Neutrophils # (Manual) (1.3-7.7) k/uL Sodium (137-145) mmol/L Creatinine (0.66-1.25) mg/dL Glucose (74-99) mg/dL POC Glucose (mg/dL) 439 H 329 H 265 H (70-110) mg/dL Calcium (8.4-10.2) mg/dL 08/17/23 08/17/23 08/17/23 Range/Units 06:02 08:23 08:23 WBC 11.5 H (3.8-10.6) k/uL RBC 3.35 L (4.30-5.90) m/uL Hgb 8.2 L (13.0-17.5) gm/dL Hct 27.4 L (39.0-53.0) % MCH 24.4 L (25.0-35.0) pg MCHC 29.8 L (31.0-37.0) g/dL Plt Count 610 H (150-450) k/uL Neutrophils # (Manual) 9.20 H (1.3-7.7) k/uL Sodium 134 L (137-145) mmol/L Creatinine 0.30 L (0.66-1.25) mg/dL Glucose 224 H (74-99) mg/dL POC Glucose (mg/dL) 224 H (70-110) mg/dL Calcium 7.6 L (8.4-10.2) mg/dL 08/17/23 Range/Units 11:14 WBC (3.8-10.6) k/uL RBC (4.30-5.90) m/uL Hgb (13.0-17.5) gm/dL Hct (39.0-53.0) % MCH (25.0-35.0) pg MCHC (31.0-37.0) g/dL Plt Count (150-450) k/uL Neutrophils # (Manual) (1.3-7.7) k/uL Sodium (137-145) mmol/L Creatinine (0.66-1.25) mg/dL Glucose (74-99) mg/dL POC Glucose (mg/dL) 362 H (70-110) mg/dL Calcium (8.4-10.2) mg/dL
[2023-08-17 16:29] LABS: Glucose,Whole Blood 251 mg/dL (70-110)
[2023-08-17 20:03] LABS: Glucose,Whole Blood 259 mg/dL (70-110)
[2023-08-17] MEDS: HYDROmorphone 1 MG/ML 1 ML SYRINGE IVP PRN (21:49)
[2023-08-17] MEDS: diphenhydrAMINE 50 MG/ML 1 ML VIAL IVP PRN (22:07)
[2023-08-18 06:00] LABS: Glucose,Whole Blood 201 mg/dL (70-110)
[2023-08-18 09:45] LABS: Basophils # (A) 0.1 k/uL (0-0.2); Basophils % (A) 1 %; Eosinophils # (A) 0.7 k/uL (0-0.7); Eosinophils % (A) 6 %; HCT 25.4 % (39.0-53.0); HGB 7.5 gm/dL (13.0-17.5); Hypochromasia Marked; Lymphocytes # (A) 1.5 k/uL (1.0-4.8); Lymphocytes % (A) 13 %; MCH 24.1 pg (25.0-35.0); MCHC 29.4 g/dL (31.0-37.0); MCV 81.9 fL (80.0-100.0); Mean Platelet Volume 6.8; Monocytes # (A) 0.6 k/uL (0-1.0); Monocytes % (A) 5 %; Neutrophils # (A) 8.7 k/uL (1.3-7.7); Neutrophils % (A) 74 %; Platelet Count 561 k/uL (150-450); RBC 3.11 m/uL (4.30-5.90); RDW 15.9 % (11.5-15.5); WBC 11.8 k/uL (3.8-10.6)
[2023-08-18 10:00] LABS: African American GFR (CKD) >90 (>60 ml/min/1.73 sqM); Anion Gap 4 mmol/L; Blood Urea Nitrogen 12 mg/dL (9-20); Carbon Dioxide 26 mmol/L (22-30); Chloride 105 mmol/L (98-107); Glucose 167 mg/dL (74-99); Non-African American GFR(CKD) >90 (>60 ml/min/1.73 sqM); Phosphorus 2.5 mg/dL (2.5-4.5); Potassium 4.7 mmol/L (3.5-5.1); Sodium 135 mmol/L (137-145)
[2023-08-18 10:36] LABS: Calcium 6.3 mg/dL (8.4-10.2)
[2023-08-18] MEDS: [UNRECOGNIZED DRUG - REMARK] IV SCH (11:07)
[2023-08-18] MEDS: CALCIUM GLUCONATE IN NACL 2 GM in SALINE 1 100ML.BAG IVPB ONE (11:14)
[2023-08-18 11:32] VITALS: BP 128/67; PULSE 90; RESP 16; TEMP 97.7
--- NOTE | 2023-08-18 11:38 | P.DS ---
Providers Date of admission: 07/26/23 18:45 Attending physician: Jerardo Guillen Consults: 07/27/23 09:34 Consult Physician Routine Consulting Provider: Jim Eugene Consult Reason/Comments: wounds Do you want consulting provider notified?: Yes 07/27/23 13:57 Consult Physician Routine Consulting Provider: Neal Pabon Consult Reason/Comments: sacral wounds Do you want consulting provider notified?: Yes Primary care physician: [facility] Course: Final Diagnosis -Sacral decub ulcer stage IV with surgical debridement this admission with acute osteomyelitis and sepsis, POA. -S/p robotic diverting colostomy July 31/2024 done to promote wound healing of the sacral wound. Midline surgical wound draining with cultures showing VRE. -Small bowel obstruction with recurrent nausea and vomiting; postoperative ileus resolved and patient is now making stool from the ostomy. -Acute metabolic encephalopathy, toxic encephalopathy from recreational drugs, improved. Drug toxicology positive for amphetamines, methamphetamines, opiates, and marijuana. -History of right above-knee amputation polymicrobial infection with bacteremia -Diabetes mellitus type 2 on insulin -History of COPD with no acute exacerbation -Chronic tobacco use and nicotine dependence -Chronic medical debility nonambulatory -Bilateral above the knee amputee. Discharge Disposition Patient is stable for discharge to subacute rehab facility; patient has been accepted at [facility]. Patient has PICC line in place and will continue on IV daptomycin for 5 weeks and IV unasyn for 2 weeks. Patient to follow up [facility] [place] Dr. Eugene on discharge in 1 to 2 weeks. Recommend weekly labs to monitor renal function and electrolytes while on antibiotic therapy. Patient to continue local wound care; abdomen silver packing and abd gauze changed 08/18/23. sacral wound: silver- wet to dry and abd due to be changed tonight 08/18/23 TU, TH, Sa change. PICC line dressing last changed on 08/18/23. Patients ostomy was last changed on 08/16/23. Patient has been advanced to regular diet and tolerating. Discussed smoking cessation with patient. Family was requesting information regarding hyperbaric oxygen therapy and patient could be considered for this after he has been at rehab for 90 days and would recommend to follow up with the [facility] wound care center about this down the road. Patient to follow up with general surgery in 1 to 2 weeks. Hospital Course This is a 63-year-old patient, follows with Dr. Mendez. Chronic stable medical conditions include ADHD, herniated disc lower back, smoker. Sacral wounds. Left AKA. right above-knee amputation by Dr. Zee on April 2023. Recently presented, not being compliant. Smoking cigarettes. Recreational drugs. Patient has not followed up for his PICC line antibiotics last discharge and was discharged on oral Augmentin. Patient's son lives with him. Patient now presents with worsening sacral wound. Continues to smoke cigarettes. Does marijuana. Tired. Some wheezing shortness of breath. Urine drug screen was positive for opiates, amphetamines, methamphetamines, marijuana. Home pain medications were resumed. Patient admitted to medicine with consults to vascular surgery, general surgery, Infectious disease and [facility] wound care. Patient underwent diverting ostomy with Dr. Pabon and also had surgical debridement of the stage IV sacral wound. His wound cultures have been positive. Patient has remained nothing by mouth for multiple days due to an abdominal ileus postoperatively. He has not had any output from his colostomy since surgery. He is found to have purulent drainage from the midline incision which was cultured and showing vancomycin-resistant Enterococcus and for this ID is following and he remains on IV daptomycin. Additionally this stage IV decubitus ulcer has positive wound cultures showing E. coli, Proteus, beta-hemolytic Streptococcus F. For this patient remains on Unasyn. Well as the IV daptomycin for coverage. Patient continues with local wound care with dressing changes and as needed for saturation the sacral decubitus ulceration. Further recommendations as above. Patient did have positive bowel sounds and was started on enterag and clear liquid diet. He is now having drainage from the ostomy and abdominal pain improving. He was weaned off of TPN and is now tolerating a regular diet. Family and patient were approached about comfort care/hospice and they are not ready. Patient had PICC line placed for outpatient antibiotics. White blood cell count showing 11.8, hgb 7.5, platelet 561, sodium 135, BUN 12, creatinine 0.28. Blood glucose 200s. Calcium 6.3. He will receive calcium gluconate before discharge. He is not complaining of chest pain, chest pain shortness of breath, hemodynamically he is stable. He is afebrile and on room air. His lungs are clear, S1 S2 ausculated, abdomen is soft and nontender. He is alert x 3. He will be discharge to subacute rehab today with the above mentioned recommendations. Please see medication reconciliation for a list of current medications. Thank you for allowing us to participate in the care of this patient. The impression and plan of care has been dictated by Aisha Boswell Nurse Practitioner as directed. Dr. Evelyn MD I have performed a history and physical examination and medical decision making of this patient, discussed the same with the dictator, and agree with the dictators assessment and plan as written, documented as a scribe. Based on total visit time, I have performed more than 50% of this visit. Patient Condition at Discharge: Fair Plan - Discharge Summary Discharge Rx Participant: Yes New Discharge Prescriptions: New Ampicillin-Sulbactam [Unasyn 3 gm vial] 3 gm IVPB Q6HR 35 Days #140 each Acetaminophen Tab [Tylenol] 650 mg PO Q6HR PRN tab PRN Reason: Mild Pain Or Fever > 100.5 Insulin Detemir (Levemir) [Levemir] 12 unit SQ HS each INSULIN ASPART (NovoLOG) [NovoLOG (formulary)] 0 unit SQ ACHS each Famotidine [Pepcid] 20 mg PO DAILY #30 tablet Temazepam [Restoril] 15 mg PO HS PRN cap PRN Reason: Insomnia Calcium Carbonate [Tums] 1,000 mg PO Q4HR PRN tab PRN Reason: Dyspepsia DAPTOmycin [Cubicin] 250 mg IVPB Q24HR 14 Days #14 each Continue sitaGLIPtin [Januvia] 100 mg PO DAILY Folic Acid 1 mg PO DAILY Ergocalciferol (Vitamin D2) [Drisdol (50,000 Iu)] 1,250 mcg PO MO Ascorbic Acid [Vitamin C] 1,000 mg PO DAILY methocarbamoL [Robaxin] 500 mg PO QID Changed Gabapentin [Neurontin] 100 mg PO BID #6 cap HYDROcodone/APAP 10-325MG [[place]amora 10-325] 1 tab PO Q6H PRN #6 tab PRN Reason: Pain Discontinued INSULIN ASPART (NovoLOG) [NovoLOG (formulary)] See Protocol SQ AC-TID PRN PRN Reason: HIGH BLOOD SUGAR Discharge Medication List Ascorbic Acid [Vitamin C] 1,000 mg PO DAILY 07/26/23 [History] Ergocalciferol (Vitamin D2) [Drisdol (50,000 Iu)] 1,250 mcg PO MO 07/26/23 [History] Folic Acid 1 mg PO DAILY 07/26/23 [History] methocarbamoL [Robaxin] 500 mg PO QID 07/26/23 [History] sitaGLIPtin [Januvia] 100 mg PO DAILY 07/26/23 [History] Ampicillin-Sulbactam [Unasyn 3 gm vial] 3 gm IVPB Q6HR 35 Days #140 each 08/17/23 [Rx] DAPTOmycin [Cubicin] 250 mg IVPB Q24HR 14 Days #14 each 08/17/23 [Rx] Acetaminophen Tab [Tylenol] 650 mg PO Q6HR PRN tab 08/18/23 [Rx] Calcium Carbonate [Tums] 1,000 mg PO Q4HR PRN tab 08/18/23 [Rx] Famotidine [Pepcid] 20 mg PO DAILY #30 tablet 08/18/23 [Rx] Gabapentin [Neurontin] 100 mg PO BID #6 cap 08/18/23 [Rx] HYDROcodone/APAP 10-325MG [[place]amora 10-325] 1 tab PO Q6H PRN #6 tab 08/18/23 [Rx] INSULIN ASPART (NovoLOG) [NovoLOG (formulary)] 0 unit SQ ACHS each 08/18/23 [Rx] Insulin Detemir (Levemir) [Levemir] 12 unit SQ HS each 08/18/23 [Rx] Temazepam [Restoril] 15 mg PO HS PRN cap 08/18/23 [Rx] Follow up Appointment(s)/Referral(s): Benjamin Mendez MD [Primary Care Provider] - 1-2 days [facility] [NON-STAFF] - 1 Week Neal Pabon MD [STAFF PHYSICIAN] - 1 Week Jim Eugene MD [STAFF PHYSICIAN] - 1 Week Ambulatory/Diagnostic Orders: Basic Metabolic Panel [LAB.AMB] Location: None Selected C Reactive Protein [LAB.AMB] Location: None Selected Erythrocyte Sedimentation Rate [LAB.AMB] Location: None Selected Complete Blood Count w/diff [LAB.AMB] Time Frame: 1 Week, Location: None Selected Activity/Diet/Wound Care/Special Instructions: Ostomy: Valera one piece appliance #[id number]. Last changed 08/16/23 wound dressings: abdomen silver packing and abd gauze changed 08/18/23 sacral: silver- wet to dry and abd due to be changed tonight 08/18/23, TH, Sa change Picc line dressing changed 08/18/23 Local wound care to the decubitus ulceration with absorptive silver, saline moist gauze, kerlex for packing and cover with ABD. Change the outer dressing as needed silver should remain in place for 48 hours. Follow up with [facility]. Patient is discharged on IV antibiotics through PICC Line with 5 weeks of IV un asyn, 2 weeks of IV daptomycin. Patient to check CBC, BMP, ESR and CRP weekly while on IV antibiotics. Patient could be considered for hyperbaric oxygen therapy after he has been at subacute rehab for 90 days. Follow up with the [facility] Discharge Disposition: TRANSFER TO SNF/ECF
[2023-08-18 12:33] LABS: Glucose,Whole Blood 135 mg/dL (70-110)
--- NOTE | 2023-08-18 12:45 | P.PN ---
Subjective Progress Note Date: 08/18/23 CHIEF COMPLAINT: Sacral decubitus ulcers HISTORY OF PRESENT ILLNESS: Patient is status post diverting colostomy on 08/01/23 and is status post debridement of decubitus ulcer on 08/02/23. Patient's ostomy is functioning. Abdominal pain is controlled. Denies any nausea or vomiting. Tolerating regular diet. Patient weaned off of TPN. Afebrile. WBC 11.8 PHYSICAL EXAM: VITAL SIGNS: Reviewed. GENERAL: no acute distress. ABDOMEN: Nondistended. Nontender. Drainage from incision site. Incisional wick in place. Ostomy with stool present ASSESSMENT: 1. Stage IV sacral decubitus ulcers with osteomyelitis 2. Sepsis 3. Hyponatremia 4. Diabetes mellitus 5. Medical noncompliance 6. Ileus resolving 7. Hypokalemia improved 8. Infection at abdominal incision site 9. Patient is noncompliant PLAN: -Patient can be discharged from surgical standpoint -continue regular diet -Antibiotics per ID service -Continue local wound care per wound care service for sacral ulcer -Continue local wound care to abdominal incision -Encourage patient to offload and stay off buttocks Physician Senior Developer note has been reviewed by physician. Signing provider agrees with the documented findings, assessment, and plan of care. Objective - Vital Signs Vital signs: Vital Signs Temp 97.7 F 08/18/23 11:21 Pulse 90 08/18/23 11:21 Resp 16 08/18/23 11:21 BP 128/67 08/18/23 11:21 Pulse Ox 97 08/18/23 11:21 FiO2 21 08/08/23 08:45 Intake & Output 08/17/23 08/18/23 08/18/23 18:59 06:59 18:59 Intake Total 110 0 Output Total 850 600 50 Balance -740 -600 -50 Intake: Oral 110 0 Output: Urine 750 400 Stool 100 200 50 Other: Voiding Method Indwelling Catheter Indwelling Catheter Indwelling Catheter - Labs CBC & Chem 7: 08/18/23 08:46 08/18/23 08:46 Labs: Abnormal Lab Results - Last 24 Hours (Table) 08/17/23 08/17/23 08/17/23 Range/Units 08:23 16:28 19:59 WBC (3.8-10.6) k/uL RBC (4.30-5.90) m/uL Hgb (13.0-17.5) gm/dL Hct (39.0-53.0) % MCH (25.0-35.0) pg MCHC (31.0-37.0) g/dL RDW (11.5-15.5) % Plt Count (150-450) k/uL Neutrophils # (1.3-7.7) k/uL Neutrophils # (Manual) 9.20 H (1.3-7.7) k/uL Sodium (137-145) mmol/L Creatinine (0.66-1.25) mg/dL Glucose (74-99) mg/dL POC Glucose (mg/dL) 251 H 259 H (70-110) mg/dL Calcium (8.4-10.2) mg/dL 08/18/23 08/18/23 08/18/23 Range/Units 05:59 08:46 08:46 WBC 11.8 H (3.8-10.6) k/uL RBC 3.11 L (4.30-5.90) m/uL Hgb 7.5 L (13.0-17.5) gm/dL Hct 25.4 L (39.0-53.0) % MCH 24.1 L (25.0-35.0) pg MCHC 29.4 L (31.0-37.0) g/dL RDW 15.9 H (11.5-15.5) % Plt Count 561 H (150-450) k/uL Neutrophils # 8.7 H (1.3-7.7) k/uL Neutrophils # (Manual) (1.3-7.7) k/uL Sodium 135 L (137-145) mmol/L Creatinine 0.28 L (0.66-1.25) mg/dL Glucose 167 H (74-99) mg/dL POC Glucose (mg/dL) 201 H (70-110) mg/dL Calcium 6.3 L* (8.4-10.2) mg/dL 08/18/23 Range/Units 12:31 WBC (3.8-10.6) k/uL RBC (4.30-5.90) m/uL Hgb (13.0-17.5) gm/dL Hct (39.0-53.0) % MCH (25.0-35.0) pg MCHC (31.0-37.0) g/dL RDW (11.5-15.5) % Plt Count (150-450) k/uL Neutrophils # (1.3-7.7) k/uL Neutrophils # (Manual) (1.3-7.7) k/uL Sodium (137-145) mmol/L Creatinine (0.66-1.25) mg/dL Glucose (74-99) mg/dL POC Glucose (mg/dL) 135 H (70-110) mg/dL Calcium (8.4-10.2) mg/dL
--- NOTE | 2023-08-18 13:12 | P.PN ---
Subjective Progress Note Date: 08/17/23 Principal diagnosis: Reason for follow-up is infected sacral pressure ulcer Patient is a 63-year-old male with a past medical history significant for diabetes mellitus in this patient who did have a history of PAD s/p bilateral [id number] amputation and did have a stage IV sacral pressure ulcer that has been there for a few months, noncompliance with the previous IV and local care treatment presented to hospital with worsening wound and fever, Patient is status post sigmoid colectomy with end colostomy completed on 08/01/2023 and the patient is status post excision debridement of his sacral pressure ulcer by general surgery completed on 08/02/2023 On today's evaluation that is 08/17/2023,the patient denies any fever or any chills, patient is breathing comfortably on room air, the patient denies chest pain shortness of breath and no significant cough, patient denies abdominal pain, no nausea vomiting and has been tolerating his diet. Patient white count is down to 11.5, creatinine 0.30 Objective - Vital Signs Vital signs: Vital Signs Temp 98.8 F 08/17/23 12:02 Pulse 96 08/17/23 16:00 Resp 18 08/17/23 16:00 BP 113/69 08/17/23 16:00 Pulse Ox 97 08/17/23 16:00 FiO2 21 08/08/23 08:45 Intake & Output 08/17/23 08/17/23 08/18/23 06:59 18:59 06:59 Intake Total 110 0 Output Total 400 850 Balance -400 -740 0 Intake: Oral 110 0 Output: Urine 400 750 Stool 100 Other: Voiding Method Indwelling Catheter Indwelling Catheter - Exam GENERAL DESCRIPTION: Middle-age male lying in bed in no distress RESPIRATORY SYSTEM: Unlabored breathing , decreased breath sounds at bases HEART: S1 S2 regular rate and rhythm , ABDOMEN: Soft , no tenderness EXTREMITIES: Bilateral AKA stump no redness or drainage - Labs CBC & Chem 7: 08/18/23 08:46 08/18/23 08:46 Labs: Abnormal Lab Results - Last 24 Hours (Table) 08/17/23 08/17/23 08/17/23 Range/Units 06:02 08:23 08:23 WBC 11.5 H (3.8-10.6) k/uL RBC 3.35 L (4.30-5.90) m/uL Hgb 8.2 L (13.0-17.5) gm/dL Hct 27.4 L (39.0-53.0) % MCH 24.4 L (25.0-35.0) pg MCHC 29.8 L (31.0-37.0) g/dL Plt Count 610 H (150-450) k/uL Neutrophils # (Manual) 9.20 H (1.3-7.7) k/uL Sodium 134 L (137-145) mmol/L Creatinine 0.30 L (0.66-1.25) mg/dL Glucose 224 H (74-99) mg/dL POC Glucose (mg/dL) 224 H (70-110) mg/dL Calcium 7.6 L (8.4-10.2) mg/dL 08/17/23 08/17/23 08/17/23 Range/Units 11:14 16:28 19:59 WBC (3.8-10.6) k/uL RBC (4.30-5.90) m/uL Hgb (13.0-17.5) gm/dL Hct (39.0-53.0) % MCH (25.0-35.0) pg MCHC (31.0-37.0) g/dL Plt Count (150-450) k/uL Neutrophils # (Manual) (1.3-7.7) k/uL Sodium (137-145) mmol/L Creatinine (0.66-1.25) mg/dL Glucose (74-99) mg/dL POC Glucose (mg/dL) 362 H 251 H 259 H (70-110) mg/dL Calcium (8.4-10.2) mg/dL Assessment and Plan (1) Sacral decubitus ulcer, stage IV Current Visit: Yes Status: Acute Code(s): L89.154 - PRESSURE ULCER OF SACRAL REGION, STAGE 4 SNOMED Code(s): 39156639043463 (2) Sacral osteomyelitis Current Visit: No Status: Acute Code(s): M46.28 - OSTEOMYELITIS OF VERTEBRA, SACRAL AND SACROCOCCYGEAL REGION SNOMED Code(s): 246574646 (3) Positive blood culture Current Visit: Yes Status: Acute Code(s): R78.81 - BACTEREMIA SNOMED Code(s): 512014724 (4) VRE (vancomycin resistant enterococcus) culture positive Current Visit: Yes Status: Acute Code(s): Z22.39 - CARRIER OF OTHER SPECIFIED BACTERIAL DISEASES SNOMED Code(s): 985779490 Plan: 1patient was in the hospital with sepsis in this patient who did have a fever tachycardia elevated white count source is infected sacral pressure ulcer likely stage IV with underlying osteomyelitis in this patient wound has been there for couple of months now and noncompliance with treatment in the outpatient setting 2-positive blood culture more likely related to his infected sacral pressure ulcer, blood culture has been repeated to document clearance of bacteremia and repeat blood culture negative 3-The patient local culture grew E. coli and Proteus and beta-hemolytic Streptococcus 4-patient is status post diverting colostomy and surgical debridement of his large sacral pressure ulcer 5-patient did have a PICC line placement on 08/03/2023 6patient did have a abdominal wound cultures obtained after removal of the stitches which is now growing VRE, local wound care with Aquacel silver packing per surgery, patient to continue with the daptomycin 7-patient remains to be afebrile, the patient white count is trending down and patient to continue with the Unasyn and continue supportive care Dictation was produced using [employer] dictation software. please excuse any grammatical, word or spelling errors. Time with Patient: Less than 30
--- NOTE | 2023-08-18 13:14 | P.PN ---
Subjective Progress Note Date: 08/18/23 Principal diagnosis: Reason for follow-up is infected sacral pressure ulcer Patient is a 63-year-old male with a past medical history significant for diabetes mellitus in this patient who did have a history of PAD s/p bilateral [id number] amputation and did have a stage IV sacral pressure ulcer that has been there for a few months, noncompliance with the previous IV and local care treatment presented to hospital with worsening wound and fever, Patient is status post sigmoid colectomy with end colostomy completed on 08/01/2023 and the patient is status post excision debridement of his sacral pressure ulcer by general surgery completed on 08/02/2023 On today's evaluation that is 08/18/2023,the patient remains to be afebrile, patient is breathing comfortably on room air, the patient denies chest pain shortness of breath and no significant cough, patient abdominal pain has improved no nausea vomiting did have output in his colostomy and is tolerating his diet. Patient white count is 11.8, creatinine 0.28 blood cultures repeat negative Objective - Vital Signs Vital signs: Vital Signs Temp 97.7 F 08/18/23 11:21 Pulse 90 08/18/23 11:21 Resp 16 08/18/23 11:21 BP 128/67 08/18/23 11:21 Pulse Ox 97 08/18/23 11:21 FiO2 21 08/08/23 08:45 Intake & Output 08/17/23 08/18/23 08/18/23 18:59 06:59 18:59 Intake Total 110 0 Output Total 850 600 50 Balance -740 -600 -50 Intake: Oral 110 0 Output: Urine 750 400 Stool 100 200 50 Other: Voiding Method Indwelling Catheter Indwelling Catheter Indwelling Catheter - Exam GENERAL DESCRIPTION: Middle-age male lying in bed in no distress RESPIRATORY SYSTEM: Unlabored breathing , decreased breath sounds at bases HEART: S1 S2 regular rate and rhythm , ABDOMEN: Soft , no tenderness EXTREMITIES: Bilateral AKA stump no redness or drainage - Labs CBC & Chem 7: 08/18/23 08:46 08/18/23 08:46 Labs: Abnormal Lab Results - Last 24 Hours (Table) 08/17/23 08/17/23 08/17/23 Range/Units 08:23 16:28 19:59 WBC (3.8-10.6) k/uL RBC (4.30-5.90) m/uL Hgb (13.0-17.5) gm/dL Hct (39.0-53.0) % MCH (25.0-35.0) pg MCHC (31.0-37.0) g/dL RDW (11.5-15.5) % Plt Count (150-450) k/uL Neutrophils # (1.3-7.7) k/uL Neutrophils # (Manual) 9.20 H (1.3-7.7) k/uL Sodium (137-145) mmol/L Creatinine (0.66-1.25) mg/dL Glucose (74-99) mg/dL POC Glucose (mg/dL) 251 H 259 H (70-110) mg/dL Calcium (8.4-10.2) mg/dL 08/18/23 08/18/23 08/18/23 Range/Units 05:59 08:46 08:46 WBC 11.8 H (3.8-10.6) k/uL RBC 3.11 L (4.30-5.90) m/uL Hgb 7.5 L (13.0-17.5) gm/dL Hct 25.4 L (39.0-53.0) % MCH 24.1 L (25.0-35.0) pg MCHC 29.4 L (31.0-37.0) g/dL RDW 15.9 H (11.5-15.5) % Plt Count 561 H (150-450) k/uL Neutrophils # 8.7 H (1.3-7.7) k/uL Neutrophils # (Manual) (1.3-7.7) k/uL Sodium 135 L (137-145) mmol/L Creatinine 0.28 L (0.66-1.25) mg/dL Glucose 167 H (74-99) mg/dL POC Glucose (mg/dL) 201 H (70-110) mg/dL Calcium 6.3 L* (8.4-10.2) mg/dL 08/18/23 Range/Units 12:31 WBC (3.8-10.6) k/uL RBC (4.30-5.90) m/uL Hgb (13.0-17.5) gm/dL Hct (39.0-53.0) % MCH (25.0-35.0) pg MCHC (31.0-37.0) g/dL RDW (11.5-15.5) % Plt Count (150-450) k/uL Neutrophils # (1.3-7.7) k/uL Neutrophils # (Manual) (1.3-7.7) k/uL Sodium (137-145) mmol/L Creatinine (0.66-1.25) mg/dL Glucose (74-99) mg/dL POC Glucose (mg/dL) 135 H (70-110) mg/dL Calcium (8.4-10.2) mg/dL Assessment and Plan (1) Sacral decubitus ulcer, stage IV Current Visit: Yes Status: Acute Code(s): L89.154 - PRESSURE ULCER OF SACRAL REGION, STAGE 4 SNOMED Code(s): 51847965681168 (2) Sacral osteomyelitis Current Visit: No Status: Acute Code(s): M46.28 - OSTEOMYELITIS OF VERTEBRA, SACRAL AND SACROCOCCYGEAL REGION SNOMED Code(s): 297855926 (3) Positive blood culture Current Visit: Yes Status: Acute Code(s): R78.81 - BACTEREMIA SNOMED Code(s): 375963893 (4) VRE (vancomycin resistant enterococcus) culture positive Current Visit: Yes Status: Acute Code(s): Z22.39 - CARRIER OF OTHER SPECIFIED BACTERIAL DISEASES SNOMED Code(s): 608996752 Plan: 1patient presented to the hospital with sepsis in this patient who did have a fever tachycardia elevated white count source is infected sacral pressure ulcer likely stage IV with underlying osteomyelitis in this patient wound has been there for couple of months now and noncompliance with treatment in the outpatient setting,patient is status post diverting colostomy and surgical debridement of his large sacral pressure ulcer ,local culture grew E. coli and Proteus and beta-hemolytic Streptococcus, patient currently on Unasyn to continue for another 5 weeks at the local skilled nursing and local wound care to continue per the wound care physician 2-positive blood culture more likely related to his infected sacral pressure ulcer, blood culture repeat has been negative so far 3-patient did have a abdominal wound cultures obtained after removal of the stitches which is now growing VRE, nursing staff mention overall wound is decreasing in size currently being treated with Aquacel silver packing, patient to continue with the daptomycin x 2 weeks on discharge and close outpatient follow-up Dictation was produced using [email or web address] dictation software. please excuse any grammatical, word or spelling errors. Time with Patient: Less than 30
--- NOTE | 2023-08-19 14:23 | CDI ---
Documentation Clarification Form Date: 08/19/2023 02:16:18 PM From: Torrie Chadwick RN, CCDS Email: [email or web address] Admit Date: 07/26/2023 06:45:00 PM Patient Name: Misael Langley Visit Number: [id number] Discharge Date: 08/18/2023 01:39:00 PM ATTENTION: The Clinical Documentation Specialists (CDI) and [facility] Coding Staff appreciate your assistance in clarifying documentation. Please respond to the clarification below the line at the bottom and electronically sign. The CDI & [facility] Coding staff will review the response and follow-up if needed. Please note: Queries are made part of the Legal Health Record. If you have any questions, please contact the author of this message via ITS. Dr. Jerardo Guillen Small bowel obstruction and postoperative ileus is documented in the progress notes and discharge summary and patient had a diverting colostomy on 07/31. Additional clarification is requested regarding the relationship, if any, that exists between the diagnosis and the procedure. Patients Admitting Diagnosis: large decubitus ulcer and diverticulosis Post-Operative Diagnosis: same Procedure performed: sigmoid colectomy with diverting end colostomy History/Risk Factors: sacral wounds, right AKA. Presents with worsening sacral wound. Clinical Indicators: 08/03 AXR: Diffuse distention of the stomach and small bowel. Small bowel is dilated up to 4.5 cm. We note anterior midline skin rosetta; query any recent operation. Both ileus and small bowel obstruction are in the differential. 08/04 Surgery PN: He was found to have an abdominal ileus and NG tube was placed. Patient is having output through his ostomy but did have 1200 mL output through NG tube. 08/14 IM: "Findings compatible with a postoperative ileus." Treatment: NGT; NPO What relationship, if any, exists between the diagnosis of postop ileus and the procedure: [ ] postop ileus is a complication of surgical procedure [ ] postop ileus is an expected outcome of the surgical procedure [ ] postop ileus is related to patients co-morbid conditions & not a complication of the procedure [ ] Other please specify ____ [ + ] Unable to determine MTDD
== END 2023-08-18 13:39 | DRG 853 ==
LOC: EC 15:53 → 5NMEDONC 18:45 → 3SCARD 08-04 14:44
PROVIDERS: ADMIT Hospitalist; ATTEND Hospitalist
PROC: 0DTN0ZZ Resection of Sigmoid Colon, Open Approach (ICD-10-PCS; 2023-08-01)
PROC: 0D1N0Z4 Bypass Sigmoid Colon to Cutaneous, Open Approach (ICD-10-PCS; principal; 2023-08-01 12:15)
PROC: 0JB70ZZ Excision of Back Subcutaneous Tissue and Fascia, Open Approach (ICD-10-PCS; 2023-08-02)
PROC: 02HV33Z Insertion of Infusion Device into Superior Vena Cava, Percutaneous Approach (ICD-10-PCS; 2023-08-03)
PROC: 0D9670Z Drainage of Stomach with Drainage Device, Via Natural or Artificial Opening (ICD-10-PCS; 2023-08-04)
PROC: 3E0436Z Introduction of Nutritional Substance into Central Vein, Percutaneous Approach (ICD-10-PCS; 2023-08-09)
DX: A41.51 Sepsis due to Escherichia coli [E. coli] (principal); G92.8 Other toxic encephalopathy; L89.154 Pressure ulcer of sacral region, stage 4; L89.314 Pressure ulcer of right buttock, stage 4; K56.609 Unspecified intestinal obstruction, unspecified as to partial versus complete obstruction; E87.1 Hypo-osmolality and hyponatremia; K56.7 Ileus, unspecified; M46.28 Osteomyelitis of vertebra, sacral and sacrococcygeal region; Z16.21 Resistance to vancomycin; L02.818 Cutaneous abscess of other sites; E11.51 Type 2 diabetes mellitus with diabetic peripheral angiopathy without gangrene; Z89.611 Acquired absence of right leg above knee; Z89.612 Acquired absence of left leg above knee; E11.69 Type 2 diabetes mellitus with other specified complication; E11.65 Type 2 diabetes mellitus with hyperglycemia; J44.9 Chronic obstructive pulmonary disease, unspecified; T43.651A Poisoning by methamphetamines accidental (unintentional), initial encounter; T43.621A Poisoning by amphetamines, accidental (unintentional), initial encounter; T40.601A Poisoning by unspecified narcotics, accidental (unintentional), initial encounter; I48.0 Paroxysmal atrial fibrillation; Z79.4 Long term (current) use of insulin; Z66 Do not resuscitate; L89.219 Pressure ulcer of right hip, unspecified stage; L89.229 Pressure ulcer of left hip, unspecified stage; Z53.20 Procedure and treatment not carried out because of patient's decision for unspecified reasons; R53.81 Other malaise; F90.9 Attention-deficit hyperactivity disorder, unspecified type; M51.26 Other intervertebral disc displacement, lumbar region; B96.4 Proteus (mirabilis) (morganii) as the cause of diseases classified elsewhere; B95.4 Other streptococcus as the cause of diseases classified elsewhere; K57.30 Diverticulosis of large intestine without perforation or abscess without bleeding; E87.6 Hypokalemia; T36.96XA Underdosing of unspecified systemic antibiotic, initial encounter; B96.89 Other specified bacterial agents as the cause of diseases classified elsewhere; B95.2 Enterococcus as the cause of diseases classified elsewhere; F17.210 Nicotine dependence, cigarettes, uncomplicated; Z86.19 Personal history of other infectious and parasitic diseases; Z79.891 Long term (current) use of opiate analgesic; Z79.84 Long term (current) use of oral hypoglycemic drugs; Z79.899 Other long term (current) drug therapy
CPT/HCPCS: 36415; 36573; 71045; 74018; 74019; 80048; 80053; 80306; 82040; 82330; 83036; 83605; 83735; 84100; 84132; 84478; 85025; 85027; 86140; 87040; 87070; 87075; 87077; 87186; 87205; 88304; 88307; 93005; 94760; 96361; 96374; 99285

== ENCOUNTER 2023-10-26 16:19 | Inpatient (IN) | payer MEDICARE, OTHER ==
[2023-10-26] MEDS: ACETAMINOPHEN TAB 500 MG TAB PO STA (17:05)
[2023-10-26 17:23] LABS: Basophils # (A) 0.1 k/uL (0-0.2); Basophils % (A) 1 %; Eosinophils # (A) 0.4 k/uL (0-0.7); Eosinophils % (A) 3 %; HCT 40.8 % (39.0-53.0); HGB 12.3 gm/dL (13.0-17.5); Hypochromasia Moderate; Lymphocytes # (A) 1.9 k/uL (1.0-4.8); Lymphocytes % (A) 12 %; MCHC 30.2 g/dL (31.0-37.0); MCV 86.1 fL (80.0-100.0); Mean Platelet Volume 7.3; Monocytes # (A) 0.9 k/uL (0-1.0); Monocytes % (A) 5 %; Neutrophils # (A) 12.7 k/uL (1.3-7.7); Neutrophils % (A) 79 %; Platelet Count 667 k/uL (150-450); RBC 4.74 m/uL (4.30-5.90); WBC 16.1 k/uL (3.8-10.6)
[2023-10-26 17:34] LABS: ALT 47 U/L (4-49); African American GFR (CKD) >90 (>60 ml/min/1.73 sqM); Albumin 3.5 g/dL (3.5-5.0); Anion Gap 11 mmol/L; Blood Urea Nitrogen 10 mg/dL (9-20); Calcium 8.5 mg/dL (8.4-10.2); Carbon Dioxide 20 mmol/L (22-30); Chloride 104 mmol/L (98-107); Glucose 377 mg/dL (74-99); Non-African American GFR(CKD) >90 (>60 ml/min/1.73 sqM); Sodium 135 mmol/L (137-145); Total Bilirubin 0.4 mg/dL (0.2-1.3)
[2023-10-26 17:37] LABS: Appearance,Urine Turbid (Clear); Bacteria,Urine Occasional /hpf; Bilirubin,Urine Negative (Negative); Blood,Urine Small (Negative); Calcium Oxalate Crystals,Urine Few /hpf; Color,Urine Colorless; Glucose,Urine (UA) 4+ (Negative); Ketones,Urine Negative (Negative); Leukocyte Esterase,Urine Large (Negative); Mucus,Urine Few /hpf; Nitrite,Urine Positive (Negative); PH, Urine 6.5 (5.0-8.0); Protein,Urine Trace (Negative); RBC,Urine 27 /hpf (0-5); Specific Gravity,Urine 1.027 (1.001-1.035); Squamous Epithelial Cell,Urine 1 /hpf (0-4); Urobilinogen,Urine <2.0 mg/dL (<2.0); WBC,Urine >182 /hpf (0-5)
[2023-10-26] MEDS: SODIUM CHLORIDE 0.9% 1,000 ML IV STA (17:37)
[2023-10-26 17:39] LABS: AST 40 U/L (17-59); Alkaline Phosphatase 127 U/L (38-126); Potassium 4.6 mmol/L (3.5-5.1)
--- NOTE | 2023-10-26 17:42 | ED ---
General Adult HPI - General Chief complaint: Fever Stated complaint: faliure to thrive Time Seen by Provider: 10/26/23 16:25 Source: patient, RN/MD Mode of arrival: wheelchair Limitations: physical limitation - History of Present Illness Initial comments: 63-year-old male with past medical history of bilateral AKA's, sacral wounds with osteomyelitis who presents to the emergency department from wound care. It was reported that today the patient went to wound care. He had missed the last couple of weeks. His wound VAC was not working appropriately as he did not have his dressing attached. There was maggots in the patient's wounds. Patient seem to be in a disheveled state. He had a fever. 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 Patient is not currently on any antibiotics. He is a very poor historian and therefore cannot provide much history. He does report to pain in his sacral region. He denies headache, visual changes, abdominal pain. No other alleviating, precipitating or modifying factors - Related Data Home Medications Medication Instructions Recorded Confirmed methocarbamoL [Robaxin] 500 mg PO QID 07/26/23 10/26/23 sitaGLIPtin [Januvia] 100 mg PO DAILY 07/26/23 10/26/23 Amiodarone [Cordarone] 200 mg PO DAILY 10/26/23 10/26/23 Furosemide [Lasix] 40 mg PO DAILY 10/26/23 10/26/23 Gabapentin [Neurontin] 300 mg PO TID 10/26/23 10/26/23 HYDROcodone/APAP 10-325MG [[place] 1 tab PO TID 10/26/23 10/26/23 10-325] Insulin Aspart [NovoLOG Flexpen] See Protocol SQ TID-W/MEALS 10/26/23 10/26/23 Insulin Detemir [Levemir Flexpen] 12 units SQ HS 10/26/23 10/26/23 Metoprolol Tartrate [Lopressor] 25 mg PO BID 10/26/23 10/26/23 Tamsulosin [Flomax] 0.4 mg PO DAILY 10/26/23 10/26/23 Temazepam [Restoril] 15 mg PO HS 10/26/23 10/26/23 Allergies Allergy/AdvReac Type Severity Reaction Status Date / Time No Known Allergies Allergy Verified 10/26/23 18:49 Review of Systems ROS Statement: Those systems with pertinent positive or pertinent negative responses have been documented in the HPI. ROS Other: All systems not noted in ROS Statement are negative. Past Medical History Past Medical History: Diabetes Mellitus Additional Past Medical History / Comment(s): pressure ulcers[Buttock,simone heals ,rt lateral foot]. BLOOD "ECOLI" INFECTION. History of Any Multi-Drug Resistant Organisms: None Reported Past Surgical History: Orthopedic Surgery Additional Past Surgical History / Comment(s): back pain son states pt recently "slipped a disc" taking gabapentin. Left leg above the knee amputation. RLE AKA. MICHELLE PICC LINE. Past Anesthesia/Blood Transfusion Reactions: No Reported Reaction Past Psychological History: No Psychological Hx Reported Smoking Status: Current every day smoker Past Alcohol Use History: Rare Past Drug Use History: None Reported - Past Family History Father Family Medical History: Congestive Heart Failure (CHF), Diabetes Mellitus Mother Family Medical History: Cancer Additional Family Medical History / Comment(s): cancer in spine General Exam Limitations: physical limitation General appearance: alert, in no apparent distress Head exam: Present: atraumatic, normocephalic, normal inspection Eye exam: Present: normal appearance, PERRL, EOMI. Absent: scleral icterus, conjunctival injection, periorbital swelling ENT exam: Present: mucous membranes dry Neck exam: Present: normal inspection. Absent: tenderness, meningismus, lymphadenopathy Respiratory exam: Present: normal lung sounds bilaterally. Absent: respiratory distress, wheezes, rales, rhonchi, stridor Cardiovascular Exam: Present: tachycardia GI/Abdominal exam: Present: soft, normal bowel sounds. Absent: distended, tenderness, guarding, rebound, rigid Extremities exam: Present: other (Patient has bilateral AKA's) Back exam: Present: other (Patient has 3 sacral wounds noted which are stage IV) Neurological exam: Present: alert Psychiatric exam: Present: flat affect Course Vital Signs 10/26/23 10/26/23 10/26/23 16:23 18:14 22:31 Temperature 100.4 F H 102.5 F H 98.0 F Pulse Rate 111 H 107 H 77 Pulse Rate [ Agricultural Extension Officer ] Respiratory 20 16 16 Rate Blood Pressure 133/69 136/77 135/68 Blood Pressure [Left Arm] O2 Sat by Pulse 100 99 99 Oximetry 10/27/23 00:00 Temperature 99.3 F Pulse Rate Pulse Rate [ 79 Agricultural Extension Officer ] Respiratory 20 Rate Blood Pressure Blood Pressure 94/64 [Left Arm] O2 Sat by Pulse 98 Oximetry Medical Decision Making - Medical Decision Making Was pt. sent in by a medical professional or institution (, PA, ROOF DESIGNER, urgent care, hospital, or detention...) When possible be specific @ -Patient was sent in from the wound care clinic Did you speak to anyone other than the patient for history (EMS, parent, family, police, friend...)? What history was obtained from this source @ -No Did you review nursing and triage notes (agree or disagree)? Why? @ -I reviewed and agree with nursing and triage notes Were old charts reviewed (outside hosp., previous admission, EMS record, old EKG, old radiological studies, urgent care reports/EKG's, detention records)? Report findings @ -I reviewed patient's discharge summary from 08/17. He had been hospitalized for his sacral wounds Differential Diagnosis (chest pain, altered mental status, abdominal pain women, abdominal pain men, vaginal bleeding, weakness, fever, dyspnea, syncope, headache, dizziness, GI bleed, back pain, seizure, CVA, palpatations, mental health, musculoskeletal)? @ -Differential Fever: Pneumonia, viral URI, endocarditis, myocarditis, pericarditis, otitis, sinusitis, peritonsillar Abscess, retropharyngeal Abscess, epiglottitis, peritonitis, appendicitis, Latrice cystitis, diverticulitis, hepatitis, colitis, UTI, PID, TOA, pyelonephritis, prostatitis, epididymitis, meningitis, encephalitis, pulmonary embolism, CVA, thyroid storm, pancreatitis, adrenal crisis, cavernous sinus thrombosis, this is not meant to be an all-inclusive list. EKG interpreted by me (3pts min.). @ - yes and demonstrates sinus tachycardia with a rate of 109. CT interval 124. QRS 84. QTc of 379. No acute ST segment elevations or depressions X-rays interpreted by me (1pt min.). @ -Yes and demonstrates no acute process CT interpreted by me (1pt min.). @ -None done U/S interpreted by me (1pt. min.). @ -None done What testing was considered but not performed or refused? (CT, X-rays, U/S, labs)? Why? @ -None What meds were considered but not given or refused? Why? @ -None Did you discuss the management of the patient with other professionals (professionals i.e. , PA, ROOF DESIGNER, lab, RT, psych nurse, high school social studies teacher, organic section technical lead, teacher, banking services officer, test case developer)? Give summary @ -I spoke with Dr. Guillen for admission Was smoking cessation discussed for >3mins.? @ -No Was critical care preformed (if so, how long)? @ -No Were there social determinants of health that impacted care today? How? (Homelessness, low income, unemployed, alcoholism, drug addiction, transportation, low edu. Level, literacy, decrease access to med. care, group home, rehab)? @ -Drug addiction, low literacy, decreased access to medical care Was there de-escalation of care discussed even if they declined (Discuss DNR or withdrawal of care, Hospice)? DNR status @ -No What co-morbidities impacted this encounter? (DM, HTN, Smoking, COPD, CAD, Ca ncer, CVA, ARF, Chemo, Hep., AIDS, mental health diagnosis, sleep apnea, morbid obesity)? @ -Diabetes mellitus Was patient admitted / discharged? Hospital course, mention meds given and route, prescriptions, significant lab abnormalities, going to OR and other pertinent info. @ -Upon arrival patient seen and evaluated in room 15. Thorough history and physical exam was performed. IV access was established. Laboratory studies were conducted. Patient was given Tylenol for fever control. Chest x-ray was performed. It does appear that the patient has elevated leukocytes. Source appears to be the bedsores. Patient continues to have a high fever and therefore he is given a dose of Motrin. Patient had VRE. I recommended treatment with IV antibiotics. I will admit patient to Dr. Guillen who accepted the admission with infectious disease to consult Undiagnosed new problem with uncertain prognosis? @ -No Drug Therapy requiring intensive monitoring for toxicity (Heparin, Nitro, Insul in, Cardizem)? @ -No Were any procedures done? @ -No Diagnosis/symptom? @ -Acute pyrexia, acute on chronic sacral wounds/osteomyelitis Acute, or Chronic, or Acute on Chronic? @ -Acute on chronic Uncomplicated (without systemic symptoms) or Complicated (systemic symptoms)? @ -Complicated Side effects of treatment? @ -No Exacerbation, Progression, or Severe Exacerbation? @ -No Poses a threat to life or bodily function? How? (Chest pain, [place], [place], pneumonia, PE, COPD, DKA, ARF, appy, cholecystitis, CVA, Diverticulitis, Homicidal, Suicidal, threat to staff... and all critical care pts) @ -No - Lab Data Result diagrams: 10/26/23 17:03 10/26/23 17:03 Lab Results 10/26/23 10/26/23 10/26/23 Range/Units 17:03 17:03 17:03 WBC 16.1 H (3.8-10.6) k/uL RBC 4.74 (4.30-5.90) m/uL Hgb 12.3 L (13.0-17.5) gm/dL Hct 40.8 (39.0-53.0) % MCV 86.1 (80.0-100.0) fL MCH 26.0 (25.0-35.0) pg MCHC 30.2 L (31.0-37.0) g/dL RDW 14.0 (11.5-15.5) % Plt Count 667 H (150-450) k/uL MPV 7.3 Neutrophils % 79 % Lymphocytes % 12 % Monocytes % 5 % Eosinophils % 3 % Basophils % 1 % Neutrophils # 12.7 H (1.3-7.7) k/uL Lymphocytes # 1.9 (1.0-4.8) k/uL Monocytes # 0.9 (0-1.0) k/uL Eosinophils # 0.4 (0-0.7) k/uL Basophils # 0.1 (0-0.2) k/uL Hypochromasia Moderate Sodium 135 L (137-145) mmol/L Potassium 4.6 (3.5-5.1) mmol/L Chloride 104 (98-107) mmol/L Carbon Dioxide 20 L (22-30) mmol/L Anion Gap 11 mmol/L BUN 10 (9-20) mg/dL Creatinine 0.40 L (0.66-1.25) mg/dL Est GFR (CKD-EPI)AfAm >90 (>60 ml/min/1.73 sqM) Est GFR (CKD-EPI)NonAf >90 (>60 ml/min/1.73 sqM) Glucose 377 H (74-99) mg/dL Lactic Ac Sepsis Rflx Plasma Lactic Acid Jermain (0.7-2.0) mmol/L Calcium 8.5 (8.4-10.2) mg/dL Total Bilirubin 0.4 (0.2-1.3) mg/dL AST 40 (17-59) U/L ALT 47 (4-49) U/L Alkaline Phosphatase 127 H (38-126) U/L Total Protein 8.0 (6.3-8.2) g/dL Albumin 3.5 (3.5-5.0) g/dL Urine Color Colorless Urine Appearance Turbid (Clear) Urine pH 6.5 (5.0-8.0) Ur Specific [place] 1.027 (1.001-1.035) Urine Protein Trace H (Negative) Urine Glucose (UA) 4+ H (Negative) Urine Ketones Negative (Negative) Urine Blood Small H (Negative) Urine Nitrite Positive (Negative) Urine Bilirubin Negative (Negative) Urine Urobilinogen <2.0 (<2.0) mg/dL Ur Leukocyte Esterase Large H (Negative) Urine RBC 27 H (0-5) /hpf Urine WBC >182 H (0-5) /hpf Urine WBC Clumps Many H (None) /hpf Ur Squamous Epith Cells 1 (0-4) /hpf Calcium Oxalate Crystal Few H (None) /hpf Urine Bacteria Occasional H (None) /hpf Urine Mucus Few H (None) /hpf Urine Opiates Screen (NotDetected) Ur Oxycodone Screen (NotDetected) Urine Methadone Screen (NotDetected) Ur Barbiturates Screen (NotDetected) U Tricyclic Antidepress (NotDetected) Ur Phencyclidine Scrn (NotDetected) Ur Amphetamines Screen (NotDetected) U Methamphetamines Scrn (NotDetected) U Benzodiazepines Scrn (NotDetected) Urine Cocaine Screen (NotDetected) U Marijuana (THC) Screen (NotDetected) Influenza Type A (PCR) (Not Detectd) Influenza Type B (PCR) (Not Detectd) RSV (PCR) (Not Detectd) SARS-CoV-2 (PCR) (Not Detectd) 10/26/23 10/26/23 10/26/23 Range/Units 17:03 17:03 17:03 WBC (3.8-10.6) k/uL RBC (4.30-5.90) m/uL Hgb (13.0-17.5) gm/dL Hct (39.0-53.0) % MCV (80.0-100.0) fL MCH (25.0-35.0) pg MCHC (31.0-37.0) g/dL RDW (11.5-15.5) % Plt Count (150-450) k/uL MPV Neutrophils % % Lymphocytes % % Monocytes % % Eosinophils % % Basophils % % Neutrophils # (1.3-7.7) k/uL Lymphocytes # (1.0-4.8) k/uL Monocytes # (0-1.0) k/uL Eosinophils # (0-0.7) k/uL Basophils # (0-0.2) k/uL Hypochromasia Sodium (137-145) mmol/L Potassium (3.5-5.1) mmol/L Chloride (98-107) mmol/L Carbon Dioxide (22-30) mmol/L Anion Gap mmol/L BUN (9-20) mg/dL Creatinine (0.66-1.25) mg/dL Est GFR (CKD-EPI)AfAm (>60 ml/min/1.73 sqM) Est GFR (CKD-EPI)NonAf (>60 ml/min/1.73 sqM) Glucose (74-99) mg/dL Lactic Ac Sepsis Rflx Plasma Lactic Acid Jerm[place] 3.3 H* (0.7-2.0) mmol/L Calcium (8.4-10.2) mg/dL Total Bilirubin (0.2-1.3) mg/dL AST (17-59) U/L ALT (4-49) U/L Alkaline Phosphatase (38-126) U/L Total Protein (6.3-8.2) g/dL Albumin (3.5-5.0) g/dL Urine Color Urine Appearance (Clear) Urine pH (5.0-8.0) Ur Specific [place] (1.001-1.035) Urine Protein (Negative) Urine Glucose (UA) (Negative) Urine Ketones (Negative) Urine Blood (Negative) Urine Nitrite (Negative) Urine Bilirubin (Negative) Urine Urobilinogen (<2.0) mg/dL Ur Leukocyte Esterase (Negative) Urine RBC (0-5) /hpf Urine WBC (0-5) /hpf Urine WBC Clumps (None) /hpf Ur Squamous Epith Cells (0-4) /hpf Calcium Oxalate Crystal (None) /hpf Urine Bacteria (None) /hpf Urine Mucus (None) /hpf Urine Opiates Screen Detected H (NotDetected) Ur Oxycodone Screen Not Detected (NotDetected) Urine Methadone Screen Not Detected (NotDetected) Ur Barbiturates Screen Not Detected (NotDetected) U Tricyclic Antidepress Not Detected (NotDetected) Ur Phencyclidine Scrn Not Detected (NotDetected) Ur Amphetamines Screen Detected H (NotDetected) U Methamphetamines Scrn Detected H (NotDetected) U Benzodiazepines Scrn Not Detected (NotDetected) Urine Cocaine Screen Not Detected (NotDetected) U Marijuana (THC) Screen Detected H (NotDetected) Influenza Type A (PCR) Not Detected (Not Detectd) Influenza Type B (PCR) Not Detected (Not Detectd) RSV (PCR) Not Detected (Not Detectd) SARS-CoV-2 (PCR) Not Detected (Not Detectd) 10/26/23 Range/Units 17:40 WBC (3.8-10.6) k/uL RBC (4.30-5.90) m/uL Hgb (13.0-17.5) gm/dL Hct (39.0-53.0) % MCV (80.0-100.0) fL MCH (25.0-35.0) pg MCHC (31.0-37.0) g/dL RDW (11.5-15.5) % Plt Count (150-450) k/uL MPV Neutrophils % % Lymphocytes % % Monocytes % % Eosinophils % % Basophils % % Neutrophils # (1.3-7.7) k/uL Lymphocytes # (1.0-4.8) k/uL Monocytes # (0-1.0) k/uL Eosinophils # (0-0.7) k/uL Basophils # (0-0.2) k/uL Hypochromasia Sodium (137-145) mmol/L Potassium (3.5-5.1) mmol/L Chloride (98-107) mmol/L Carbon Dioxide (22-30) mmol/L Anion Gap mmol/L BUN (9-20) mg/dL Creatinine (0.66-1.25) mg/dL Est GFR (CKD-EPI)AfAm (>60 ml/min/1.73 sqM) Est GFR (CKD-EPI)NonAf (>60 ml/min/1.73 sqM) Glucose (74-99) mg/dL Lactic Ac Sepsis Rflx Y Plasma Lactic Acid Jermain (0.7-2.0) mmol/L Calcium (8.4-10.2) mg/dL Total Bilirubin (0.2-1.3) mg/dL AST (17-59) U/L ALT (4-49) U/L Alkaline Phosphatase (38-126) U/L Total Protein (6.3-8.2) g/dL Albumin (3.5-5.0) g/dL Urine Color Urine Appearance (Clear) Urine pH (5.0-8.0) Ur Specific [place] (1.001-1.035) Urine Protein (Negative) Urine Glucose (UA) (Negative) Urine Ketones (Negative) Urine Blood (Negative) Urine Nitrite (Negative) Urine Bilirubin (Negative) Urine Urobilinogen (<2.0) mg/dL Ur Leukocyte Esterase (Negative) Urine RBC (0-5) /hpf Urine WBC (0-5) /hpf Urine WBC Clumps (None) /hpf Ur Squamous Epith Cells (0-4) /hpf Calcium Oxalate Crystal (None) /hpf Urine Bacteria (None) /hpf Urine Mucus (None) /hpf Urine Opiates Screen (NotDetected) Ur Oxycodone Screen (NotDetected) Urine Methadone Screen (NotDetected) Ur Barbiturates Screen (NotDetected) U Tricyclic Antidepress (NotDetected) Ur Phencyclidine Scrn (NotDetected) Ur Amphetamines Screen (NotDetected) U Methamphetamines Scrn (NotDetected) U Benzodiazepines Scrn (NotDetected) Urine Cocaine Screen (NotDetected) U Marijuana (THC) Screen (NotDetected) Influenza Type A (PCR) (Not Detectd) Influenza Type B (PCR) (Not Detectd) RSV (PCR) (Not Detectd) SARS-CoV-2 (PCR) (Not Detectd) Disposition Clinical Impression: Sacral decubitus ulcer, stage IV, Sepsis Disposition: ADMITTED IP TO THIS [facility] Condition: Serious Is patient prescribed a controlled substance at d/c from ED?: No Time of Disposition: 18:58 Decision to Admit Reason: Admit from EC Decision Date: 10/26/23 Decision Time: 18:58
--- NOTE | 2023-10-26 18:16 | XR ---
EXAMINATION TYPE: XR chest 2V DATE OF EXAM: 10/26/2023 COMPARISON: 324 INDICATION: Fever TECHNIQUE: Frontal and lateral views of the chest are obtained. FINDINGS: The heart size is normal. The pulmonary vasculature is normal. The lungs are clear. IMPRESSION: 1. No acute pulmonary process.
[2023-10-26 18:27] LABS: Amphetamine Screen,Urine Detected (NotDetected); Barbiturate Screen,Urine Not Detected (NotDetected); Benzodiazepines Screen,Urine Not Detected (NotDetected); Cocaine Screen,Urine Not Detected (NotDetected); Methadone Screen, Urine Not Detected (NotDetected); Opiate Screen,Urine Detected (NotDetected); Oxycodone Screen, Urine Not Detected (NotDetected); Phencyclidine Screen,Urine Not Detected (NotDetected); Tricyclic Antidepressant,Urine Not Detected (NotDetected); Urn Cannabinoid Scrn Detected (NotDetected)
[2023-10-26] MEDS: IBUPROFEN 600 MG TAB PO STA (18:35)
[2023-10-26] MEDS: MORPHINE SULFATE 4 MG/ML SYRINGE IVP STA (18:36)
[2023-10-26] MEDS ORDERED: NALOXONE 0.4 MG/ML 1 ML VIAL IV PRN (19:00)
[2023-10-26] MEDS ORDERED: CALCIUM CARBONATE 500 MG CHEWABLE PO PRN (20:10)
[2023-10-26] MEDS ORDERED: TEMAZEPAM 15 MG CAP PO PRN (20:10)
--- NOTE | 2023-10-26 20:10 | P.HPIM ---
History of Present Illness H&P Date: 10/26/23 Chief Complaint: Not taking care of himself This is a 63-year-old patient, follows with Dr. Mendez. Chronic stable medical conditions include ADHD, herniated disc lower back, smoker. Sacral wounds. Left AKA. right above-knee amputation by Dr. Zee on April 2023 Has been known to, not being compliant. Smoking cigarettes. Recreational drugs. Diverting colostomy with Dr Pabon Patient supposed to follow-up with the wound care center by Dr. Bahena. Has not been that at least on the last 2 visits. Also his colostomy bag was dislodged. His sacral decubitus wound has been deteriorating. Patient states he gets [facility] coming out. Apparently has not been taking it himself. He has a son living with him. Patient spiked a fever of 102 in the ER. Review of systems: GEN.: tired EYES: None HEENT: None NECK: None RESPIRATORY: Occasional short of breath CARDIOVASCULAR: None GASTROINTESTINAL: Colostomy bag GENITOURINARY: None MUSCULOSKELETAL: Sacral decubitus wounds LYMPHATICS: None HEMATOLOGICAL: None PSYCHIATRY: None NEUROLOGICAL: None ambulatory Past medical history to include: Diabetes, possible ADHD, chronic low back pain, herniated disc, atrial fibrillation. COPD. left above-knee amputation. Right below-knee amputation. Sacral wound Social history: Son lives with the patient. 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 Smokes about a pack a day, now down to a few cigarettes a day. Alcohol occasionally. Marijuana Physical examination: VITAL SIGNS:102.5, 107, 16, 136 x 77, 99% room air GENERAL: Reclining in bed d, tired EYES: Pupils equal. Conjunctiva normal. HEENT: External appearance of nose and ears normal, NG tube to suction NECK: JVD not raised; masses not palpable. HEART: First and second heart sounds are normal; no edema. LUNGS: Respiratory rate increased l; decreased breath sounds. ABDOMEN: Soft, left-sided colostomy-brown PSYCH: A bit lethargic but able to answer simple questions MUSCULOSKELETAL: Left and right above-knee amputation, incisions with rosetta healing well. Sacral wound. NEUROLOGICAL: Moving all 4 limbs. INVESTIGATIONS, reviewed in the clinical context: October 26, 2023: White count 16.1 hemoglobin 12.3 platelets 667 sodium 135 potassium 4.6 BUN 10 creatinine 0.4 lactic acid 3.3 Urine drug screen positive for opiates, amphetamines, methamphetamines, marijuana Influenza type A, B, RSV, COVID-19 not detected EKG tracing personally reviewed by me-normal sinus rhythm Chest x-ray film personally reviewed by me-hyperinflation Assessment and plan: -Sepsis from infected chronic decubitus wound/sacrum IV linezolid given in the ER. ID consulted -Some metabolic encephalopathy from recreational drugs. And sepsis Urine drug screen positive for methamphetamines, amphetamines, opiates, marijuana -Right above-knee amputation by Dr. Zee on May 26. Cultures grew multiple organisms. discharged on June 03/2024 with IV ceftriaxone with a PICC line for 6 weeks. Patient never showed up for his IV antibiotics. Was subsequently discharged with Augmentin on the last visit -Sacral decubitus ulcer. With prior history of acute osteomyelitis. Pepper consulted for further debridement -Paroxysmal atrial fibrillation: sinus rhythm Amiodarone. Lopressor. -Diabetes mellitus type 2, chronically on insulin Levemir. Follow Accu-Cheks sliding scale -COPD in a current smoker Bronchodilators as needed -Chronic nicotine dependence, cigarette smoker Nicotine patch -Chronic medical debility. Non-ambulatory -Full code Past Medical History Past Medical History: Diabetes Mellitus Additional Past Medical History / Comment(s): pressure ulcers[Buttock,simone heals ,rt lateral foot]. BLOOD "ECOLI" INFECTION. History of Any Multi-Drug Resistant Organisms: None Reported Past Surgical History: Orthopedic Surgery Additional Past Surgical History / Comment(s): back pain son states pt recently "slipped a disc" taking gabapentin. Left leg above the knee amputation. RLE AKA. MICHELLE PICC LINE. Past Anesthesia/Blood Transfusion Reactions: No Reported Reaction Past Psychological History: No Psychological Hx Reported Smoking Status: Current every day smoker Past Alcohol Use History: Rare Past Drug Use History: None Reported - Past Family History Father Family Medical History: Congestive Heart Failure (CHF), Diabetes Mellitus Mother Family Medical History: Cancer Additional Family Medical History / Comment(s): cancer in spine Medications and Allergies Home Medications Medication Instructions Recorded Confirmed Type methocarbamoL [Robaxin] 500 mg PO QID 07/26/23 10/26/23 History sitaGLIPtin [Januvia] 100 mg PO DAILY 07/26/23 10/26/23 History Amiodarone [Cordarone] 200 mg PO DAILY 10/26/23 10/26/23 History Furosemide [Lasix] 40 mg PO DAILY 10/26/23 10/26/23 History Gabapentin [Neurontin] 300 mg PO TID 10/26/23 10/26/23 History HYDROcodone/APAP 10-325MG [[place] 1 tab PO TID 10/26/23 10/26/23 History 10-325] Insulin Aspart [NovoLOG Flexpen] See Protocol SQ TID-W/MEALS 10/26/23 10/26/23 History Insulin Detemir [Levemir Flexpen] 12 units SQ HS 10/26/23 10/26/23 History Metoprolol Tartrate [Lopressor] 25 mg PO BID 10/26/23 10/26/23 History Tamsulosin [Flomax] 0.4 mg PO DAILY 10/26/23 10/26/23 History Temazepam [Restoril] 15 mg PO HS 10/26/23 10/26/23 History Allergies Allergy/AdvReac Type Severity Reaction Status Date / Time No Known Allergies Allergy Verified 10/26/23 18:49 Physical Exam Vitals: Vital Signs Temp Pulse Resp BP Pulse Ox 10/26/23 18:14 102.5 F H 107 H 16 136/77 99 10/26/23 16:23 100.4 F H 111 H 20 133/69 100 Intake and Output 10/26/23 10/26/23 10/26/23 06:59 14:59 22:59 Other: Weight 53.524 kg Results CBC & Chem 7: 10/26/23 17:03 10/26/23 17:03 Labs: Abnormal Lab Results - Last 24 Hours (Table) 10/26/23 10/26/23 10/26/23 Range/Units 17:03 17:03 17:03 WBC 16.1 H (3.8-10.6) k/uL Hgb 12.3 L (13.0-17.5) gm/dL MCHC 30.2 L (31.0-37.0) g/dL Plt Count 667 H (150-450) k/uL Neutrophils # 12.7 H (1.3-7.7) k/uL Sodium 135 L (137-145) mmol/L Carbon Dioxide 20 L (22-30) mmol/L Creatinine 0.40 L (0.66-1.25) mg/dL Glucose 377 H (74-99) mg/dL Plasma Lactic Acid Jermain (0.7-2.0) mmol/L Alkaline Phosphatase 127 H (38-126) U/L Urine Protein Trace H (Negative) Urine Glucose (UA) 4+ H (Negative) Urine Blood Small H (Negative) Ur Leukocyte Esterase Large H (Negative) Urine RBC 27 H (0-5) /hpf Urine WBC >182 H (0-5) /hpf Urine WBC Clumps Many H (None) /hpf Calcium Oxalate Crystal Few H (None) /hpf Urine Bacteria Occasional H (None) /hpf Urine Mucus Few H (None) /hpf Urine Opiates Screen (NotDetected) Ur Amphetamines Screen (NotDetected) U Methamphetamines Scrn (NotDetected) U Marijuana (THC) Screen (NotDetected) 10/26/23 10/26/23 Range/Units 17:03 17:03 WBC (3.8-10.6) k/uL Hgb (13.0-17.5) gm/dL MCHC (31.0-37.0) g/dL Plt Count (150-450) k/uL Neutrophils # (1.3-7.7) k/uL Sodium (137-145) mmol/L Carbon Dioxide (22-30) mmol/L Creatinine (0.66-1.25) mg/dL Glucose (74-99) mg/dL Plasma Lactic Acid Jermain 3.3 H* (0.7-2.0) mmol/L Alkaline Phosphatase (38-126) U/L Urine Protein (Negative) Urine Glucose (UA) (Negative) Urine Blood (Negative) Ur Leukocyte Esterase (Negative) Urine RBC (0-5) /hpf Urine WBC (0-5) /hpf Urine WBC Clumps (None) /hpf Calcium Oxalate Crystal (None) /hpf Urine Bacteria (None) /hpf Urine Mucus (None) /hpf Urine Opiates Screen Detected H (NotDetected) Ur Amphetamines Screen Detected H (NotDetected) U Methamphetamines Scrn Detected H (NotDetected) U Marijuana (THC) Screen Detected H (NotDetected)
[2023-10-26] MEDS ORDERED: DEXTROSE 50% SYRINGE 50 ML IVP PRN ×2 (20:12)
[2023-10-26] MEDS: LINEZOLID 600 MG in DEXTROSE/WATER 1 300ML.BAG IVPB STA (20:25)
[2023-10-26] MEDS: LACTATED RINGERS 1,000 ML IV SCH (22:45)
[2023-10-26] MEDS: ENOXAPARIN 40 MG/0.4 ML SYRINGE SQ SCH (22:49)
[2023-10-27 06:19] LABS: Glucose,Whole Blood 297 mg/dL (70-110)
[2023-10-27] MEDS: INSULIN ASPART (NovoLOG) 100 UNIT/ML VIAL SQ SCH (06:21)
[2023-10-27 08:17] LABS: Glucose,Whole Blood 243 mg/dL (70-110)
[2023-10-27 10:38] LABS: Basophils # (A) 0.1 k/uL (0-0.2); Basophils % (A) 1 %; Eosinophils # (A) 0.6 k/uL (0-0.7); Eosinophils % (A) 5 %; HCT 35.7 % (39.0-53.0); HGB 10.9 gm/dL (13.0-17.5); Hypochromasia Moderate; Lymphocytes # (A) 1.2 k/uL (1.0-4.8); Lymphocytes % (A) 10 %; MCH 26.1 pg (25.0-35.0); MCHC 30.7 g/dL (31.0-37.0); MCV 85.1 fL (80.0-100.0); Mean Platelet Volume 7.9; Monocytes # (A) 0.8 k/uL (0-1.0); Monocytes % (A) 6 %; Neutrophils # (A) 10.1 k/uL (1.3-7.7); Neutrophils % (A) 79 %; Platelet Count 531 k/uL (150-450); RDW 13.7 % (11.5-15.5); WBC 12.8 k/uL (3.8-10.6)
[2023-10-27 11:31] LABS: African American GFR (CKD) >90 (>60 ml/min/1.73 sqM); Anion Gap 6 mmol/L; Blood Urea Nitrogen 9 mg/dL (9-20); Calcium 8.2 mg/dL (8.4-10.2); Carbon Dioxide 25 mmol/L (22-30); Chloride 102 mmol/L (98-107); Glucose 224 mg/dL (74-99); Non-African American GFR(CKD) >90 (>60 ml/min/1.73 sqM); Potassium 4.7 mmol/L (3.5-5.1); Sodium 133 mmol/L (137-145)
--- NOTE | 2023-10-27 12:16 | P.GSCN ---
History of Present Illness Consult date: 10/27/23 History of present illness: CHIEF COMPLAINT: Fever HISTORY OF PRESENT ILLNESS: This is a 63-year-old male with a known history of sacral wounds with osteomyelitis followed at the wound care center. Patient has a known past history of debridement of the sacral wound wound on August 02, 2023 and on August 01, 2023 he had a diverting colostomy. Patient presented the [facility] with fevers as high as 102, tachy and leukocytosis. He was brought in from the wound care center. Apparently he had been missing his appointments at the wound care center and per ER report the wound VAC was not working appropriately and there had maggots in the patient's wound. Patient has history of bacteremia with VRE. Patient is a poor historian. His ostomy is functioning. Patient nguyen whitley seen by wound care service and infectious disease. Surgical service consulted in regards to patient's sacral wounds. Patient does have a known history of diabetes mellitus and [id number] amputations bilaterally. PAST MEDICAL HISTORY: Diabetes mellitus, sacral ulcers with osteomyelitis PAST SURGICAL HISTORY: Bilateral leg [id number] amputation MEDICATIONS: See below ALLERGIES: See below SOCIAL HISTORY: No illicit drug use. Nicotine dependence REVIEW OF SYSTEMS: CONSTITUTIONAL: Denies fever or chills. HEENT: Denies blurred vision, vision changes, or eye pain. Denies hemoptysis CARDIOVASCULAR: Denies chest pain or pressure. RESPIRATORY: No shortness of breath. GASTROINTESTINAL: See HPI for pertinent findings HEMATOLOGIC: Denies bleeding disorders. GENITOURINARY: Denies any blood in urine or increased urinary frequency. SKIN: Denies pruitis. Denies rash. PHYSICAL EXAM: VITAL SIGNS: Reviewed GENERAL: Well-developed in no acute distress. HEENT: No sclera icterus. Extraocular movements grossly intact. Moist buccal mucosa. Head is atraumatic, normocephalic. No nasal drainage. ABDOMEN: Soft. Nondistended. Nontender. Ostomy functioning NEUROLOGIC: Alert and oriented. Cranial nerves II through XII grossly intact. Skin: 2 areas of sacral decubitus ulcers. Healthy tissue noted. No drainage or odor noted. LABORATORY DATA: WBC 16.1 down to 12.8 Hgb 10.9 platelets of 531 Glucose 243 Lactic acid 3.3-1.3 Urinalysis positive for infection Urine drug screen positive for opiates amphetamines methamphetamines and marijuana IMAGING: Chest x-ray no acute pulmonary process ASSESSMENT: 1. Stage IV sacral decubitus ulcers 2. Sepsis 3. UTI PLAN: -Possible debridement of sacral ulcers on October [address] Pabon -Continue local wound care -Antibiotics per infectious disease Physician Piling Cutter note has been reviewed by physician. Signing provider agrees with the documented findings, assessment, and plan of care. Past Medical History Past Medical History: Diabetes Mellitus Additional Past Medical History / Comment(s): pressure ulcers[Buttock,simone heals ,rt lateral foot]. BLOOD "ECOLI" INFECTION. History of Any Multi-Drug Resistant Organisms: None Reported Past Surgical History: Orthopedic Surgery Additional Past Surgical History / Comment(s): back pain son states pt recently "slipped a disc" taking gabapentin. Left leg above the knee amputation. RLE AKA. MICHELLE PICC LINE. Past Anesthesia/Blood Transfusion Reactions: No Reported Reaction Past Psychological History: No Psychological Hx Reported Smoking Status: Current every day smoker Past Alcohol Use History: Rare Past Drug Use History: None Reported - Past Family History Father Family Medical History: Congestive Heart Failure (CHF), Diabetes Mellitus Mother Family Medical History: Cancer Additional Family Medical History / Comment(s): cancer in spine Medications and Allergies Home Medications Medication Instructions Recorded Confirmed Type methocarbamoL [Robaxin] 500 mg PO QID 07/26/23 10/26/23 History sitaGLIPtin [Januvia] 100 mg PO DAILY 07/26/23 10/26/23 History Amiodarone [Cordarone] 200 mg PO DAILY 10/26/23 10/26/23 History Furosemide [Lasix] 40 mg PO DAILY 10/26/23 10/26/23 History Gabapentin [Neurontin] 300 mg PO TID 10/26/23 10/26/23 History HYDROcodone/APAP 10-325MG [[place] 1 tab PO TID 10/26/23 10/26/23 History 10-325] Insulin Aspart [NovoLOG Flexpen] See Protocol SQ TID-W/MEALS 10/26/23 10/26/23 History Insulin Detemir [Levemir Flexpen] 12 units SQ HS 10/26/23 10/26/23 History Metoprolol Tartrate [Lopressor] 25 mg PO BID 10/26/23 10/26/23 History Tamsulosin [Flomax] 0.4 mg PO DAILY 10/26/23 10/26/23 History Temazepam [Restoril] 15 mg PO HS 10/26/23 10/26/23 History Allergies Allergy/AdvReac Type Severity Reaction Status Date / Time No Known Allergies Allergy Verified 10/26/23 18:49 Surgical - Exam Vital Signs Temp Pulse Resp BP Pulse Ox 100.4 F H 111 H 20 133/69 100 10/26/23 16:23 10/26/23 16:23 10/26/23 16:23 10/26/23 16:23 10/26/23 16:23 Results - Labs 10/27/23 09:28 10/27/23 09:28 Abnormal Lab Results - Last 24 Hours (Table) 10/26/23 10/26/23 10/26/23 Range/Units 17:03 17:03 17:03 WBC 16.1 H (3.8-10.6) k/uL Hgb 12.3 L (13.0-17.5) gm/dL MCHC 30.2 L (31.0-37.0) g/dL Plt Count 667 H (150-450) k/uL Neutrophils # 12.7 H (1.3-7.7) k/uL Sodium 135 L (137-145) mmol/L Carbon Dioxide 20 L (22-30) mmol/L Creatinine 0.40 L (0.66-1.25) mg/dL Glucose 377 H (74-99) mg/dL POC Glucose (mg/dL) (70-110) mg/dL Plasma Lactic Acid Jermain (0.7-2.0) mmol/L Alkaline Phosphatase 127 H (38-126) U/L Urine Protein Trace H (Negative) Urine Glucose (UA) 4+ H (Negative) Urine Blood Small H (Negative) Ur Leukocyte Esterase Large H (Negative) Urine RBC 27 H (0-5) /hpf Urine WBC >182 H (0-5) /hpf Urine WBC Clumps Many H (None) /hpf Calcium Oxalate Crystal Few H (None) /hpf Urine Bacteria Occasional H (None) /hpf Urine Mucus Few H (None) /hpf Urine Opiates Screen (NotDetected) Ur Amphetamines Screen (NotDetected) U Methamphetamines Scrn (NotDetected) U Marijuana (THC) Screen (NotDetected) 10/26/23 10/26/23 10/27/23 Range/Units 17:03 17:03 06:18 WBC (3.8-10.6) k/uL Hgb (13.0-17.5) gm/dL MCHC (31.0-37.0) g/dL Plt Count (150-450) k/uL Neutrophils # (1.3-7.7) k/uL Sodium (137-145) mmol/L Carbon Dioxide (22-30) mmol/L Creatinine (0.66-1.25) mg/dL Glucose (74-99) mg/dL POC Glucose (mg/dL) 297 H (70-110) mg/dL Plasma Lactic Acid Jermain 3.3 H* (0.7-2.0) mmol/L Alkaline Phosphatase (38-126) U/L Urine Protein (Negative) Urine Glucose (UA) (Negative) Urine Blood (Negative) Ur Leukocyte Esterase (Negative) Urine RBC (0-5) /hpf Urine WBC (0-5) /hpf Urine WBC Clumps (None) /hpf Calcium Oxalate Crystal (None) /hpf Urine Bacteria (None) /hpf Urine Mucus (None) /hpf Urine Opiates Screen Detected H (NotDetected) Ur Amphetamines Screen Detected H (NotDetected) U Methamphetamines Scrn Detected H (NotDetected) U Marijuana (THC) Screen Detected H (NotDetected) 10/27/23 Range/Units 08:15 WBC (3.8-10.6) k/uL Hgb (13.0-17.5) gm/dL MCHC (31.0-37.0) g/dL Plt Count (150-450) k/uL Neutrophils # (1.3-7.7) k/uL Sodium (137-145) mmol/L Carbon Dioxide (22-30) mmol/L Creatinine (0.66-1.25) mg/dL Glucose (74-99) mg/dL POC Glucose (mg/dL) 243 H (70-110) mg/dL Plasma Lactic Acid Jermain (0.7-2.0) mmol/L Alkaline Phosphatase (38-126) U/L Urine Protein (Negative) Urine Glucose (UA) (Negative) Urine Blood (Negative) Ur Leukocyte Esterase (Negative) Urine RBC (0-5) /hpf Urine WBC (0-5) /hpf Urine WBC Clumps (None) /hpf Calcium Oxalate Crystal (None) /hpf Urine Bacteria (None) /hpf Urine Mucus (None) /hpf Urine Opiates Screen (NotDetected) Ur Amphetamines Screen (NotDetected) U Methamphetamines Scrn (NotDetected) U Marijuana (THC) Screen (NotDetected) Diabetes panel 10/26/23 Range/Units 17:03 Sodium 135 L (137-145) mmol/L Potassium 4.6 (3.5-5.1) mmol/L Chloride 104 (98-107) mmol/L Carbon Dioxide 20 L (22-30) mmol/L BUN 10 (9-20) mg/dL Creatinine 0.40 L (0.66-1.25) mg/dL Glucose 377 H (74-99) mg/dL Calcium 8.5 (8.4-10.2) mg/dL AST 40 (17-59) U/L ALT 47 (4-49) U/L Alkaline Phosphatase 127 H (38-126) U/L Total Protein 8.0 (6.3-8.2) g/dL Albumin 3.5 (3.5-5.0) g/dL Calcium panel 10/26/23 Range/Units 17:03 Calcium 8.5 (8.4-10.2) mg/dL Albumin 3.5 (3.5-5.0) g/dL Pituitary panel 10/26/23 Range/Units 17:03 Sodium 135 L (137-145) mmol/L Potassium 4.6 (3.5-5.1) mmol/L Chloride 104 (98-107) mmol/L Carbon Dioxide 20 L (22-30) mmol/L BUN 10 (9-20) mg/dL Creatinine 0.40 L (0.66-1.25) mg/dL Glucose 377 H (74-99) mg/dL Calcium 8.5 (8.4-10.2) mg/dL Adrenal panel 10/26/23 Range/Units 17:03 Sodium 135 L (137-145) mmol/L Potassium 4.6 (3.5-5.1) mmol/L Chloride 104 (98-107) mmol/L Carbon Dioxide 20 L (22-30) mmol/L BUN 10 (9-20) mg/dL Creatinine 0.40 L (0.66-1.25) mg/dL Glucose 377 H (74-99) mg/dL Calcium 8.5 (8.4-10.2) mg/dL Total Bilirubin 0.4 (0.2-1.3) mg/dL AST 40 (17-59) U/L ALT 47 (4-49) U/L Alkaline Phosphatase 127 H (38-126) U/L Total Protein 8.0 (6.3-8.2) g/dL Albumin 3.5 (3.5-5.0) g/dL
--- NOTE | 2023-10-27 12:39 | P.CONS ---
History of Present Illness - Reason for Consult Consult date: 10/27/23 wound care - History of Present Illness This is a 63-year-old patient known to the wound care center was seen yesterday in wound care and found to have maggots in his ulceration. Patient has been utilizing negative pressure wound VAC however was not turned on when he came to his appointment. Patient also had his ostomy appliance not attached to his site resulting in stool covering his abdomen. Patient Zee was not functioning properly. He is living with his son who did not want to stay for the appointment. Patient does not come to his weekly wound care appointments. Home care comes for wound care and has suggested on multiple occasions patient to follow-up with the emergency department due to the appearance of the ulceration patient refuses. Original cause of wound was Surgical Injury. The date acquired was: 08/15/2023. The wound has been in treatment 6 weeks. The wound is currently classified as a Full Thickness Without Exposed Support Structures wound with etiology of Open Surgical Wound and is located on the Abdomen - midline. The wound measures 0.7cm length x 0.3cm width x 0.2cm depth; 0.165cm^2 area and 0.033cm^3 volume. There is Fat Layer (Subcutaneous Tissue) exposed. There is no tunneling or undermining noted. There is a medium amount of serosanguineous drainage noted. The wound margin is distinct with the outline attached to the wound base. There is small (1-33%) pink granulation within the wound bed. There is a large (67-100%) amount of necrotic tissue within the wound bed. The periw ound skin appearance exhibited: Scarring. The periwound skin appearance did not exhibit: Callus, Crepitus, Excoriation, Induration, Rash, Dry/Scaly, Maceration, Atrophie [place], Cyanosis, Ecchymosis, Hemosiderin Staining, Mottled, Pallor, Rubor, Erythema. Periwound temperature was noted as No Abnormality. The periwound has tenderness on palpation. Wound #4 status is Open. Original cause of wound was Gradually Appeared. The date acquired was: 08/15/2023. The wound has been in treatment 6 weeks. The wound is currently classified as a Category/Stage IV wound with etiology of Pressure Ulcer and is located on the Coccyx. The wound measures 6.7cm length x 4.8cm width x 3.5cm depth; 25.258cm^2 area and 88.404cm^3 volume. There is bone, muscle, Fat Layer (Subcutaneous Tissue), and fascia exposed. Tunneling has been noted at 7:00 with a maximum distance of 3.5cm. Undermining begins at 12:00 and ends at 12:00. There is a large amount of purulent drainage noted. The wound margin is distinct with the outline attached to the wound base. There is medium (34-66%) red, pink granulation within the wound bed. There is a medium (34-66%) amount of necrotic tissue within the wound bed including Eschar and Adherent Slough. The periwound skin appearance exhibited: Excoriation, Scarring, Erythema. The periwound skin appearance did not exhibit: Callus, Crepitus, Induration, Rash, Dry/Scaly, Maceration, Atrophie [place], Cyanosis, Ecchymosis, Hemosiderin Staining, Mottled, Pallor, Rubor. The surrounding wound skin color is noted with erythema which is circumferential. Periwound temperature was noted as No Abnormality. The periwound has tenderness on palpation. General Notes: tunnels all the way to left trochanter wound Wound #5 status is Open. Original cause of wound was Gradually Appeared. The date acquired was: 08/08/2023. The wound has been in treatment 6 weeks. The wound is currently classified as a Category/Stage IV wound with etiology of Pressure Ulcer and is located on the Left,Posterior Trochanter. The wound measures 4cm length x 2.3cm width x 3.5cm depth; 7.226cm^2 area and 25.29cm^3 volume. There is muscle, Fat Layer (Subcutaneous Tissue), and fascia exposed. Tunneling has been noted at 3:00 with a maximum distance of 3.5cm. Undermining begins at 12:00 and ends at 12:00 with a maximum distance of 3.5cm. There is a large amount of purulent drainage noted. The wound margin is distinct with the outline attached to the wound base. There is medium (34-66%) red, pink granulation within the wound bed. There is a medium (34-66%) amount of necrotic tissue within the wound bed including Eschar and Adherent Slough. The periwound skin appearance exhibited: Excoriation, Scarring. The periwound skin appearance did not exhibit: Callus, Crepitus, Induration, Rash, Dry/Scaly, Maceration, Atrophie [place], Cyanosis, Ecchymosis, Hemosiderin Staining, Mottled, Pallor, Rubor, Erythema. Periwound temperature was noted as No Abnormality. The periwound has tenderness on palpation. General Notes: tunnels all the way to coccyx wound Wound #6 status is Open. Original cause of wound was Pressure Injury. The date acquired was: 08/15/2023. The wound has been in treatment 6 weeks. The wound is currently classified as a Category/Stage IV wound with etiology of Pressure Ulcer and is located on the Right,Posterior Trochanter. The wound measures 3.9cm length x 2.5cm width x 4.5cm depth; 7.658cm^2 area and 34.459cm^3 volume. There is muscle, Fat Layer (Subcutaneous Tissue), and fascia exposed. Tunneling has been noted at 7:00 with a maximum distance of 5.5cm. Undermining begins at 12:00 and ends at 12:00 with a maximum distance of 3.8cm. There is a medium amount of purulent drainage noted. The wound margin is distinct with the outline attached to the wound base. There is small (1-33%) red, pink granulation within the wound bed. There is a large (67-100%) amount of necrotic tissue within the wound bed including Eschar and Adherent Slough. The periwound skin appearance exhibited: Excoriation, Rash, Scarring, Maceration, Erythema. The periwound skin appearance did not exhibit: Callus, Crepitus, Induration, Dry/Scaly, Atrophie [place], Cyanosis, Ecchymosis, Hemosiderin Staining, Mottled, Pallor, Rubor. The surrounding wound skin color is noted with erythema which is circumferential. Periwound temperature was noted as No Abnormality. The periwound has tenderness on palpation. Review Of Systems: Constitutional: No fever, no chills, no night sweats. No weight change. No weakness, fatigue or lethargy. No daytime sleepiness. Integumentary:reports wounds, no lesions. No rash or pruritus. No unusual bruising. No change in hair or nails. Physical exam: General Appearance: Alert, cooperative, no distress, appears stated age. Skin: See HPI all other Skin color, texture, tugor normal, no rashes or lesions. Neurologic: Alert oriented x3 Assessment: 1. Stage III pressure ulcer left buttocks 2. Stage III pressure ulcer right buttocks 3. Stage III pressure ulcer sacral region 4. Diabetes with skin ulceration 5. Adult failure to thrive Plan: 1. Apply negative pressure wound VAC at 150 mmHg with black foam bridge all 3 ulcerations. Change Tuesday. Recommendation for patient to be placed in extended-care facility due to his inability to manage his care at home. Thank you for the consultation any questions please contact the wound care center DNP note has been reviewed and discussed with Dr. Conway and the impression and plan of care has been directed as dictated. Past Medical History Past Medical History: Diabetes Mellitus Additional Past Medical History / Comment(s): pressure ulcers[Buttock,simone heals ,rt lateral foot]. BLOOD "ECOLI" INFECTION. History of Any Multi-Drug Resistant Organisms: None Reported Past Surgical History: Orthopedic Surgery Additional Past Surgical History / Comment(s): back pain son states pt recently "slipped a disc" taking gabapentin. Left leg above the knee amputation. RLE AKA. MICHELLE PICC LINE. Past Anesthesia/Blood Transfusion Reactions: No Reported Reaction Past Psychological History: No Psychological Hx Reported Smoking Status: Current every day smoker Past Alcohol Use History: Rare Past Drug Use History: None Reported - Past Family History Father Family Medical History: Congestive Heart Failure (CHF), Diabetes Mellitus Mother Family Medical History: Cancer Additional Family Medical History / Comment(s): cancer in spine Medications and Allergies Home Medications Medication Instructions Recorded Confirmed Type methocarbamoL [Robaxin] 500 mg PO QID 07/26/23 10/26/23 History sitaGLIPtin [Januvia] 100 mg PO DAILY 07/26/23 10/26/23 History Amiodarone [Cordarone] 200 mg PO DAILY 10/26/23 10/26/23 History Furosemide [Lasix] 40 mg PO DAILY 10/26/23 10/26/23 History Gabapentin [Neurontin] 300 mg PO TID 10/26/23 10/26/23 History HYDROcodone/APAP 10-325MG [Elliott 1 tab PO TID 10/26/23 10/26/23 History 10-325] Insulin Aspart [NovoLOG Flexpen] See Protocol SQ TID-W/MEALS 10/26/23 10/26/23 History Insulin Detemir [Levemir Flexpen] 12 units SQ HS 10/26/23 10/26/23 History Metoprolol Tartrate [Lopressor] 25 mg PO BID 10/26/23 10/26/23 History Tamsulosin [Flomax] 0.4 mg PO DAILY 10/26/23 10/26/23 History Temazepam [Restoril] 15 mg PO HS 10/26/23 10/26/23 History Allergies Allergy/AdvReac Type Severity Reaction Status Date / Time No Known Allergies Allergy Verified 10/26/23 18:49 Physical Exam Vitals: Vital Signs Temp Pulse Pulse Resp BP BP Pulse Ox 10/27/23 12:14 85 20 141/75 100 10/27/23 04:00 99.2 F 79 16 131/72 98 10/27/23 00:00 99.3 F 79 20 94/64 98 10/26/23 22:31 98.0 F 77 16 135/68 99 10/26/23 18:14 102.5 F H 107 H 16 136/77 99 10/26/23 16:23 100.4 F H 111 H 20 133/69 100 Intake and Output 10/26/23 10/27/23 10/27/23 22:59 06:59 14:59 Output Total 1800 Balance -1800 Output: Urine 1800 Other: Voiding Method Indwelling Catheter Weight 53.524 kg 53.524 kg Results CBC & Chem 7: 10/27/23 09:28 10/27/23 09:28 Labs: Abnormal Lab Results - Last 24 Hours (Table) 10/26/23 10/26/23 10/26/23 Range/Units 17:03 17:03 17:03 WBC 16.1 H (3.8-10.6) k/uL RBC (4.30-5.90) m/uL Hgb 12.3 L (13.0-17.5) gm/dL Hct (39.0-53.0) % MCHC 30.2 L (31.0-37.0) g/dL Plt Count 667 H (150-450) k/uL Neutrophils # 12.7 H (1.3-7.7) k/uL Sodium 135 L (137-145) mmol/L Carbon Dioxide 20 L (22-30) mmol/L Creatinine 0.40 L (0.66-1.25) mg/dL Glucose 377 H (74-99) mg/dL POC Glucose (mg/dL) (70-110) mg/dL Plasma Lactic Acid Jermain (0.7-2.0) mmol/L Calcium (8.4-10.2) mg/dL Alkaline Phosphatase 127 H (38-126) U/L Urine Protein Trace H (Negative) Urine Glucose (UA) 4+ H (Negative) Urine Blood Small H (Negative) Ur Leukocyte Esterase Large H (Negative) Urine RBC 27 H (0-5) /hpf Urine WBC >182 H (0-5) /hpf Urine WBC Clumps Many H (None) /hpf Calcium Oxalate Crystal Few H (None) /hpf Urine Bacteria Occasional H (None) /hpf Urine Mucus Few H (None) /hpf Urine Opiates Screen (NotDetected) Ur Amphetamines Screen (NotDetected) U Methamphetamines Scrn (NotDetected) U Marijuana (THC) Screen (NotDetected) 10/26/23 10/26/23 10/27/23 Range/Units 17:03 17:03 06:18 WBC (3.8-10.6) k/uL RBC (4.30-5.90) m/uL Hgb (13.0-17.5) gm/dL Hct (39.0-53.0) % MCHC (31.0-37.0) g/dL Plt Count (150-450) k/uL Neutrophils # (1.3-7.7) k/uL Sodium (137-145) mmol/L Carbon Dioxide (22-30) mmol/L Creatinine (0.66-1.25) mg/dL Glucose (74-99) mg/dL POC Glucose (mg/dL) 297 H (70-110) mg/dL Plasma Lactic Acid Jermain 3.3 H* (0.7-2.0) mmol/L Calcium (8.4-10.2) mg/dL Alkaline Phosphatase (38-126) U/L Urine Protein (Negative) Urine Glucose (UA) (Negative) Urine Blood (Negative) Ur Leukocyte Esterase (Negative) Urine RBC (0-5) /hpf Urine WBC (0-5) /hpf Urine WBC Clumps (None) /hpf Calcium Oxalate Crystal (None) /hpf Urine Bacteria (None) /hpf Urine Mucus (None) /hpf Urine Opiates Screen Detected H (NotDetected) Ur Amphetamines Screen Detected H (NotDetected) U Methamphetamines Scrn Detected H (NotDetected) U Marijuana (THC) Screen Detected H (NotDetected) 10/27/23 10/27/23 10/27/23 Range/Units 08:15 09:28 09:28 WBC 12.8 H (3.8-10.6) k/uL RBC 4.20 L (4.30-5.90) m/uL Hgb 10.9 L (13.0-17.5) gm/dL Hct 35.7 L (39.0-53.0) % MCHC 30.7 L (31.0-37.0) g/dL Plt Count 531 H (150-450) k/uL Neutrophils # 10.1 H (1.3-7.7) k/uL Sodium 133 L (137-145) mmol/L Carbon Dioxide (22-30) mmol/L Creatinine 0.32 L (0.66-1.25) mg/dL Glucose 224 H (74-99) mg/dL POC Glucose (mg/dL) 243 H (70-110) mg/dL Plasma Lactic Acid Jermain (0.7-2.0) mmol/L Calcium 8.2 L (8.4-10.2) mg/dL Alkaline Phosphatase (38-126) U/L Urine Protein (Negative) Urine Glucose (UA) (Negative) Urine Blood (Negative) Ur Leukocyte Esterase (Negative) Urine RBC (0-5) /hpf Urine WBC (0-5) /hpf Urine WBC Clumps (None) /hpf Calcium Oxalate Crystal (None) /hpf Urine Bacteria (None) /hpf Urine Mucus (None) /hpf Urine Opiates Screen (NotDetected) Ur Amphetamines Screen (NotDetected) U Methamphetamines Scrn (NotDetected) U Marijuana (THC) Screen (NotDetected) Assessment and Plan (1) Stage III pressure ulcer of left buttock Current Visit: Yes Status: Acute Code(s): L89.323 - PRESSURE ULCER OF LEFT BUTTOCK, STAGE 3 SNOMED Code(s): 69503868076811 (2) Stage III pressure ulcer of right buttock Current Visit: Yes Status: Acute Code(s): L89.313 - PRESSURE ULCER OF RIGHT BUTTOCK, STAGE 3 SNOMED Code(s): 20127992236800 (3) Failure to thrive in adult Current Visit: Yes Status: Acute Code(s): R62.7 - ADULT FAILURE TO THRIVE SNOMED Code(s): 120589186 (4) Stage III pressure ulcer of sacral region Current Visit: No Status: Acute Code(s): L89.153 - PRESSURE ULCER OF SACRAL REGION, STAGE 3 SNOMED Code(s): 10249296224746 (5) Type 2 diabetes mellitus with other skin ulcer Current Visit: No Status: Acute Code(s): E11.622 - TYPE 2 DIABETES MELLITUS WITH OTHER SKIN ULCER; L98.499 - NON-PRESSURE CHRONIC ULCER OF SKIN OF SITES W UNSP SEVERITY SNOMED Code(s): 885173760
[2023-10-27] MEDS: MORPHINE SULFATE 4 MG/ML SYRINGE IV PRN (13:40)
[2023-10-27 14:52] VITALS: BMI 17.4
--- NOTE | 2023-10-27 15:09 | P.PN ---
Progress Note - Text Progress Note Date: 10/27/23 Chief Complaint: Not taking care of himself This is a 63-year-old patient, follows with Dr. Mendez. Chronic stable medical conditions include ADHD, herniated disc lower back, smoker. Sacral wounds. Left AKA. right above-knee amputation by Dr. Zee on April 2023 Has been known to, not being compliant. Smoking cigarettes. Recreational drugs. Diverting colostomy with Dr Pabon Patient supposed to follow-up with the wound care center by Dr. Bahena. Has not been that at least on the last 2 visits. Also his colostomy bag was dislodged. His sacral decubitus wound has been deteriorating. Patient states he gets [facility] home care coming out. Apparently has not been taking it himself. He has a son living with him. Patient spiked a fever of 102 in the ER. October 26: Admitted with sepsis from infected decubitus ulcer. ID following for antibiotics. Plan for debridement of sacral ulcer on Tuesday by Dr Pabon. Patient tired. Resume home dose of [place]. Morphine. Resume home oral glycemic Active Medications Acetaminophen (Acetaminophen Tab 325 Mg Tab) 650 mg PO Q6HR PRN PRN Reason: Mild Pain or Fever > 100.5 Hydrocodone Bitart/Acetaminophen (Hydrocodone/Apap 10-325mg 1 Each Tab) 1 each PO TID [facility] Calcium Carbonate/Glycine (Calcium Carbonate 500 Mg Chewable) 1,000 mg PO Q4HR PRN PRN Reason: Dyspepsia Dextrose/Water (Dextrose 50% Syringe 50 Ml) 25 ml IVP PER PROTOCOL PRN; Protocol PRN Reason: Hypoglycemia Dextrose/Water (Dextrose 50% Syringe 50 Ml) 50 ml IVP PER PROTOCOL PRN; Protocol PRN Reason: Hypoglycemia Enoxaparin Sodium (Enoxaparin 40 Mg/0.4 Ml Syringe) 40 mg SQ DAILY [facility] Last Admin: 10/27/23 09:22 Dose: 40 mg Gabapentin (Gabapentin 300 Mg Cap) 300 mg PO TID [facility] Lactated Ringer's (Lactated Ringers) 1,000 mls @ 125 mls/hr IV .Q8H [facility] Last Admin: 10/27/23 14:46 Dose: 125 mls/hr Ibuprofen (Ibuprofen 400 Mg Tab) 400 mg PO Q6HR PRN PRN Reason: Mild Pain or Fever > 100.5 Insulin Aspart (Insulin Aspart (Novolog) 100 Unit/Ml Vial) 0 unit SQ AC-TID [facility]; Protocol Last Admin: 10/27/23 11:56 Dose: 3 unit Lactulose (Lactulose 20 Gm/30 Ml Cup) 20 gm PO DAILY PRN PRN Reason: Constipation Lorazepam (Lorazepam 0.5 Mg Tab) 0.5 mg PO Q6HR PRN PRN Reason: Anxiety Methocarbamol (Methocarbamol 500 Mg Tab) 500 mg PO QID [facility] Naloxone HCl (Naloxone 0.4 Mg/Ml 1 Ml Vial) 0.2 mg IV Q2M PRN PRN Reason: Opioid Reversal Ondansetron HCl (Ondansetron 4 Mg/2 Ml Vial) 4 mg IVP Q8HR PRN PRN Reason: Nausea And Vomiting Tamsulosin HCl (Tamsulosin 0.4 Mg Cap.Er.24h) 0.4 mg PO DAILY [facility] Temazepam (Temazepam 15 Mg Cap) 15 mg PO HS [facility] Past medical history to include: Diabetes, possible ADHD, chronic low back pain, herniated disc, atrial fibrillation. COPD. left above-knee amputation. Right below-knee amputation. Sacral wound Social history: Son lives with the patient. 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 Smokes about a pack a day, now down to a few cigarettes a day. Alcohol occasionally. Marijuana Physical examination: VITAL SIGNS: 99.2, 85, 20, 141 x 75, 100% room air GENERAL: Reclining in bed tired EYES: Pupils equal. Conjunctiva normal. HEENT: External appearance of nose and ears normal, NG tube to suction NECK: JVD not raised; masses not palpable. HEART: First and second heart sounds are normal; no edema. LUNGS: Respiratory rate increased l; decreased breath sounds. ABDOMEN: Soft, left-sided colostomy-brown PSYCH: A bit lethargic but able to answer simple questions MUSCULOSKELETAL: Left and right above-knee amputation, incisions with rosetta healing well. Sacral wound. NEUROLOGICAL: Moving all 4 limbs. INVESTIGATIONS, reviewed in the clinical context: October 26: White count 12.8 hemoglobin 10.9 potassium 4.7 creatinine 0.32 October 26, 2023: White count 16.1 hemoglobin 12.3 platelets 667 sodium 135 potassium 4.6 BUN 10 creatinine 0.4 lactic acid 3.3 Urine drug screen positive for opiates, amphetamines, methamphetamines, marijuana Influenza type A, B, RSV, COVID-19 not detected EKG tracing personally reviewed by me-normal sinus rhythm Chest x-ray film personally reviewed by me-hyperinflation Assessment and plan: -Sepsis from infected chronic decubitus wound/sacrum IV linezolid given in the ER. ID following for antibiotics -Some metabolic encephalopathy from recreational drugs. And sepsis: Some improvement -Urine drug screen positive for methamphetamines, amphetamines, opiates, marijuana -Left and right above-knee amputation -Sacral decubitus ulcer, stage IV. With prior history of acute osteomyelitis.: Causing sepsis ID following Dr Pabon will do debridement on Tuesday -Paroxysmal atrial fibrillation: sinus rhythm Amiodarone. Lopressor. -Diabetes mellitus type 2, chronically on insulin Levemir. Follow Accu-Cheks sliding scale Januvia -COPD in a current smoker Bronchodilators as needed -Chronic nicotine dependence, cigarette smoker Nicotine patch -Chronic medical debility. Non-ambulatory -Full code Januvia resumed. Antibiotics per ID. Pending debridement. Social work to look into discharge planning Past Medical History Past Medical History: Diabetes Mellitus Additional Past Medical History / Comment(s): pressure ulcers[Buttock,simone heals ,rt lateral foot]. BLOOD "ECOLI" INFECTION. History of Any Multi-Drug Resistant Organisms: None Reported Past Surgical History: Orthopedic Surgery Additional Past Surgical History / Comment(s): back pain son states pt recently "slipped a disc" taking gabapentin. Left leg above the knee amputation. RLE AKA. MICHELLE PICC LINE. Past Anesthesia/Blood Transfusion Reactions: No Reported Reaction Past Psychological History: No Psychological Hx Reported Smoking Status: Current every day smoker Past Alcohol Use History: Rare Past Drug Use History: None Reported
[2023-10-27] MEDS: HYDROcodone/APAP 10-325MG 1 EACH TAB PO SCH (15:10)
[2023-10-27] MEDS: GABAPENTIN 300 MG CAP PO SCH (15:11)
[2023-10-27] MEDS: AMIODARONE 200 MG TAB PO SCH (15:11)
[2023-10-27] MEDS: LINAGLIPTIN 5 MG TABLET PO SCH (15:11)
[2023-10-27] MEDS: TAMSULOSIN 0.4 MG CAP.ER.24H PO SCH (15:11)
[2023-10-27] MEDS: methocarbamoL 500 MG TAB PO SCH (16:42)
[2023-10-27 17:07] LABS: Glucose,Whole Blood 95 mg/dL (70-110)
[2023-10-27] MEDS: AMPICILLIN-SULBACTAM 3 GM in SODIUM CHLORIDE 0.9% 100 ML IVPB SCH (17:18)
--- NOTE | 2023-10-27 18:12 | CT ---
EXAMINATION TYPE: CT pelvis wo con DATE OF EXAM: 10/27/2023 HISTORY: Sacral and bilateral gluteal/upper thigh ulcer Technique: Departmental protocol. Automated exposure control for dose reduction was used. Total DLP: 294.5 mGycm COMPARISON: CT 09/15/2022 FINDINGS / IMPRESSION: Overlying the sacrum is the known soft tissue defect extending down to nearly abut the sacrum, center ed left of midline. There is no sacral osteolysis to suggest acute osteomyelitis by CT criteria but t here is mild osteosclerosis of the mid to lower sacrum and prominent osteosclerosis of the coccyx, a nonspecific finding which can be seen in chronic osteomyelitis. There is associated mild soft tissue thickening related to these findings, but no focal fluid or gas collection. Overlying the right ischial tuberosity is the known soft tissue defect extending down to nearly abut the bone, with associated mild/moderate soft tissue swelling and tiny gas bubbles within the soft tis sues just cephalad to the process (axial images 80, 85, and 89). There are no associated focal fluid or gas collections.The right ischial tuberosity is negative for osteolysis to suggest acute osteomyel itis but osteosclerosis is present, a nonspecific finding which can be seen in chronic osteomyelitis. Overlying the left ischial tuberosity are nearly identical findings as seen on the right. Again, no a ssociated focal fluid or gas collections. Incidental note made of: 1. Circumferential bladder thickening and Zee catheter in place. 2. Bilateral femoral head osteonecrosis changes.
[2023-10-27 20:36] LABS: Glucose,Whole Blood 184 mg/dL (70-110)
[2023-10-27] MEDS: TEMAZEPAM 15 MG CAP PO SCH (20:58)
--- NOTE | 2023-10-27 22:37 | P.CONS ---
History of Present Illness - Reason for Consult Consult date: 10/27/23 - History of Present Illness Patient is a 63-year-old male past medical history significant for diabetes mellitus patient did have a history of pressure ulcer to the sacral and bilateral gluteal area for the patient did have a diverting colostomy to help heal these wounds however the patient seem to have a problem with persistent nonhealing of this wound presenting to the hospital yesterday afternoon from the wound care center and the patient was noticed to have maggots in his wounds he did have a fever patient subsequently was sent to the ER for further evaluation patient on presentation to the hospital did have a fever of 102.5 F patient was tachycardic not hypotensive or hypoxic he did have a white count of 16.1 with a left shift creatinine was normal liver enzymes are normal urine has been positiv e urine testing was positive for opiates amphetamines methamphetamines and marijuana patient was admitted to hospital infectious he was consulted for further management of antibiotic therapy patient is currently lethargic not a very good historian when asked specifically has been complaining of pain but unable to quantify, no chest pain some shortness of breath nausea no vomiting and no diarrhea has been reported Past Medical History Past Medical History: Diabetes Mellitus Additional Past Medical History / Comment(s): pressure ulcers[Buttock,simone heals ,rt lateral foot]. BLOOD "ECOLI" INFECTION. History of Any Multi-Drug Resistant Organisms: None Reported Past Surgical History: Orthopedic Surgery Additional Past Surgical History / Comment(s): back pain son states pt recently "slipped a disc" taking gabapentin. Left leg above the knee amputation. RLE AKA. MICHELLE PICC LINE. Past Anesthesia/Blood Transfusion Reactions: No Reported Reaction Past Psychological History: No Psychological Hx Reported Smoking Status: Current every day smoker Past Alcohol Use History: Rare Past Drug Use History: None Reported - Past Family History Father Family Medical History: Congestive Heart Failure (CHF), Diabetes Mellitus Mother Family Medical History: Cancer Additional Family Medical History / Comment(s): cancer in spine Medications and Allergies Home Medications Medication Instructions Recorded Confirmed Type methocarbamoL [Robaxin] 500 mg PO QID 07/26/23 10/26/23 History sitaGLIPtin [Januvia] 100 mg PO DAILY 07/26/23 10/26/23 History Amiodarone [Cordarone] 200 mg PO DAILY 10/26/23 10/26/23 History Furosemide [Lasix] 40 mg PO DAILY 10/26/23 10/26/23 History Gabapentin [Neurontin] 300 mg PO TID 10/26/23 10/26/23 History HYDROcodone/APAP 10-325MG [[place] 1 tab PO TID 10/26/23 10/26/23 History 10-325] Insulin Aspart [NovoLOG Flexpen] See Protocol SQ TID-W/MEALS 10/26/23 10/26/23 History Insulin Detemir [Levemir Flexpen] 12 units SQ HS 10/26/23 10/26/23 History Metoprolol Tartrate [Lopressor] 25 mg PO BID 10/26/23 10/26/23 History Tamsulosin [Flomax] 0.4 mg PO DAILY 10/26/23 10/26/23 History Temazepam [Restoril] 15 mg PO HS 10/26/23 10/26/23 History Allergies Allergy/AdvReac Type Severity Reaction Status Date / Time No Known Allergies Allergy Verified 10/26/23 18:49 Physical Exam Vitals: Vital Signs Temp Pulse Pulse Resp BP BP Pulse Ox 10/27/23 04:00 99.2 F 79 16 131/72 98 10/27/23 00:00 99.3 F 79 20 94/64 98 10/26/23 22:31 98.0 F 77 16 135/68 99 10/26/23 18:14 102.5 F H 107 H 16 136/77 99 10/26/23 16:23 100.4 F H 111 H 20 133/69 100 Intake and Output 10/26/23 10/27/23 10/27/23 22:59 06:59 14:59 Output Total 1800 Balance -1800 Output: Urine 1800 Other: Voiding Method Indwelling Catheter Weight 53.524 kg 53.524 kg Results CBC & Chem 7: 10/28/23 06:59 10/27/23 09:28 Labs: Abnormal Lab Results - Last 24 Hours (Table) 10/26/23 10/26/23 10/26/23 Range/Units 17:03 17:03 17:03 WBC 16.1 H (3.8-10.6) k/uL RBC (4.30-5.90) m/uL Hgb 12.3 L (13.0-17.5) gm/dL Hct (39.0-53.0) % MCHC 30.2 L (31.0-37.0) g/dL Plt Count 667 H (150-450) k/uL Neutrophils # 12.7 H (1.3-7.7) k/uL Sodium 135 L (137-145) mmol/L Carbon Dioxide 20 L (22-30) mmol/L Creatinine 0.40 L (0.66-1.25) mg/dL Glucose 377 H (74-99) mg/dL POC Glucose (mg/dL) (70-110) mg/dL Plasma Lactic Acid Jermain (0.7-2.0) mmol/L Alkaline Phosphatase 127 H (38-126) U/L Urine Protein Trace H (Negative) Urine Glucose (UA) 4+ H (Negative) Urine Blood Small H (Negative) Ur Leukocyte Esterase Large H (Negative) Urine RBC 27 H (0-5) /hpf Urine WBC >182 H (0-5) /hpf Urine WBC Clumps Many H (None) /hpf Calcium Oxalate Crystal Few H (None) /hpf Urine Bacteria Occasional H (None) /hpf Urine Mucus Few H (None) /hpf Urine Opiates Screen (NotDetected) Ur Amphetamines Screen (NotDetected) U Methamphetamines Scrn (NotDetected) U Marijuana (THC) Screen (NotDetected) 10/26/23 10/26/23 10/27/23 Range/Units 17:03 17:03 06:18 WBC (3.8-10.6) k/uL RBC (4.30-5.90) m/uL Hgb (13.0-17.5) gm/dL Hct (39.0-53.0) % MCHC (31.0-37.0) g/dL Plt Count (150-450) k/uL Neutrophils # (1.3-7.7) k/uL Sodium (137-145) mmol/L Carbon Dioxide (22-30) mmol/L Creatinine (0.66-1.25) mg/dL Glucose (74-99) mg/dL POC Glucose (mg/dL) 297 H (70-110) mg/dL Plasma Lactic Acid Jermain 3.3 H* (0.7-2.0) mmol/L Alkaline Phosphatase (38-126) U/L Urine Protein (Negative) Urine Glucose (UA) (Negative) Urine Blood (Negative) Ur Leukocyte Esterase (Negative) Urine RBC (0-5) /hpf Urine WBC (0-5) /hpf Urine WBC Clumps (None) /hpf Calcium Oxalate Crystal (None) /hpf Urine Bacteria (None) /hpf Urine Mucus (None) /hpf Urine Opiates Screen Detected H (NotDetected) Ur Amphetamines Screen Detected H (NotDetected) U Methamphetamines Scrn Detected H (NotDetected) U Marijuana (THC) Screen Detected H (NotDetected) 10/27/23 10/27/23 Range/Units 08:15 09:28 WBC 12.8 H (3.8-10.6) k/uL RBC 4.20 L (4.30-5.90) m/uL Hgb 10.9 L (13.0-17.5) gm/dL Hct 35.7 L (39.0-53.0) % MCHC 30.7 L (31.0-37.0) g/dL Plt Count 531 H (150-450) k/uL Neutrophils # 10.1 H (1.3-7.7) k/uL Sodium (137-145) mmol/L Carbon Dioxide (22-30) mmol/L Creatinine (0.66-1.25) mg/dL Glucose (74-99) mg/dL POC Glucose (mg/dL) 243 H (70-110) mg/dL Plasma Lactic Acid Jermain (0.7-2.0) mmol/L Alkaline Phosphatase (38-126) U/L Urine Protein (Negative) Urine Glucose (UA) (Negative) Urine Blood (Negative) Ur Leukocyte Esterase (Negative) Urine RBC (0-5) /hpf Urine WBC (0-5) /hpf Urine WBC Clumps (None) /hpf Calcium Oxalate Crystal (None) /hpf Urine Bacteria (None) /hpf Urine Mucus (None) /hpf Urine Opiates Screen (NotDetected) Ur Amphetamines Screen (NotDetected) U Methamphetamines Scrn (NotDetected) U Marijuana (THC) Screen (NotDetected) Assessment and Plan Plan: 1patient presented to hospital with sepsis in this patient who did have fever tachycardia elevated white count source is infected pressure ulcer as the patient was noted to have significant purulent drainage from the right gluteal pressure area 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 please excuse any grammatical, word or spelling errors. Time with Patient: Greater than 30
[2023-10-28] MEDS: INSULIN DETEMIR (LEVEMIR) 100 UNIT/ML SYR SQ SCH (00:13)
[2023-10-28 06:04] LABS: Glucose,Whole Blood 100 mg/dL (70-110)
[2023-10-28] MEDS: IBUPROFEN 400 MG TAB PO PRN (06:33)
[2023-10-28 07:49] LABS: Basophils # (A) 0.1 k/uL (0-0.2); Basophils % (A) 1 %; Eosinophils # (A) 0.6 k/uL (0-0.7); Eosinophils % (A) 6 %; HCT 33.1 % (39.0-53.0); Hypochromasia Slight; Lymphocytes # (A) 1.3 k/uL (1.0-4.8); Lymphocytes % (A) 13 %; MCH 25.6 pg (25.0-35.0); MCHC 30.3 g/dL (31.0-37.0); MCV 84.3 fL (80.0-100.0); Mean Platelet Volume 6.9; Monocytes # (A) 0.7 k/uL (0-1.0); Monocytes % (A) 7 %; Neutrophils # (A) 7.2 k/uL (1.3-7.7); Neutrophils % (A) 73 %; Platelet Count 535 k/uL (150-450); RBC 3.93 m/uL (4.30-5.90); RDW 13.7 % (11.5-15.5); WBC 9.9 k/uL (3.8-10.6)
--- NOTE | 2023-10-28 08:31 | P.PN ---
Subjective Progress Note Date: 10/28/23 CHIEF COMPLAINT: Sacral decubitus ulcers HISTORY OF PRESENT ILLNESS: Patient lying in bed comfortably. No further fevers. Mild tachycardia improved. WBC 12.8-9.9 Hgb 10.[address] reports no sacral osteolysis to suggest acute osteomyelitis there is mild osteosclerosis of the mid to lower sacrum and prominent osteosclerosis of the coccyx, a nonspecific finding which can be seen in chronic osteomyelitis. PHYSICAL EXAM: VITAL SIGNS: Reviewed. GENERAL: no acute distress. ABDOMEN: Soft. Nondistended. Nontender. ASSESSMENT: 1. Stage IV sacral decubitus ulcers 2. Sepsis PLAN: -Patient tentatively scheduled for debridement of sacral decubitus ulcers on October [address] Pabon -Continue local wound care -Antibiotics per infectious disease Physician Glue Mounter Operator note has been reviewed by physician. Signing provider agrees with the documented findings, assessment, and plan of care. Objective - Vital Signs Vital signs: Vital Signs Temp 97.8 F 10/28/23 04:00 Pulse 89 10/28/23 04:00 Resp 16 10/28/23 04:00 BP 100/59 10/28/23 04:00 Pulse Ox 97 10/28/23 04:00 FiO2 Intake & Output 10/27/23 10/28/23 10/28/23 18:59 06:59 18:59 Output Total 1500 Balance -1500 Weight 53.524 kg Output: Urine 1500 Other: Voiding Method Indwelling Catheter - Labs CBC & Chem 7: 10/28/23 06:59 10/27/23 09:28 Labs: Abnormal Lab Results - Last 24 Hours (Table) 10/27/23 10/27/23 10/27/23 Range/Units 09:28 09:28 20:34 WBC 12.8 H (3.8-10.6) k/uL RBC 4.20 L (4.30-5.90) m/uL Hgb 10.9 L (13.0-17.5) gm/dL Hct 35.7 L (39.0-53.0) % MCHC 30.7 L (31.0-37.0) g/dL Plt Count 531 H (150-450) k/uL Neutrophils # 10.1 H (1.3-7.7) k/uL Sodium 133 L (137-145) mmol/L Creatinine 0.32 L (0.66-1.25) mg/dL Glucose 224 H (74-99) mg/dL POC Glucose (mg/dL) 184 H (70-110) mg/dL Calcium 8.2 L (8.4-10.2) mg/dL 10/28/23 Range/Units 06:59 WBC (3.8-10.6) k/uL RBC 3.93 L (4.30-5.90) m/uL Hgb 10.0 L (13.0-17.5) gm/dL Hct 33.1 L (39.0-53.0) % MCHC 30.3 L (31.0-37.0) g/dL Plt Count 535 H (150-450) k/uL Neutrophils # (1.3-7.7) k/uL Sodium (137-145) mmol/L Creatinine (0.66-1.25) mg/dL Glucose (74-99) mg/dL POC Glucose (mg/dL) (70-110) mg/dL Calcium (8.4-10.2) mg/dL Microbiology - Last 24 Hours (Table) 10/26/23 17:50 Blood Culture - Preliminary Blood 10/26/23 17:35 Blood Culture - Preliminary Blood
[2023-10-28 11:46] LABS: Glucose,Whole Blood 132 mg/dL (70-110)
[2023-10-28] MEDS: NAPROXEN 250 MG TAB PO SCH (12:06)
--- NOTE | 2023-10-28 13:55 | CDI ---
Documentation Clarification Form Date: 10/28/2023 01:13:36 PM From: Luli Toney Phone: [phone] Admit Date: 10/26/2023 07:00:00 PM Patient Name: Misael Langley Visit Number: [id number] Discharge Date: ATTENTION: The Clinical Documentation Specialists (CDI) and [facility] Coding Staff appreciate your assistance in clarifying documentation. Please respond to the clarification below the line at the bottom and electronically sign. The CDI & [facility] Coding staff will review the response and follow-up if needed. Please note: Queries are made part of the Legal Health Record. If you have any questions, please contact the author of this message via ITS. Mari Rodriguez NP Three pressure ulcers have conflicting documentation in the Wound care consult. As attending physician, please provide clarification. Stage III pressure ulcer left buttocks, 10/26, Wound care assessment Stage IV pressure ulcer left posterior trochanter, 10/26, Wound care assessment Stage III pressure ulcer right buttocks, 10/26, Wound care assessment Stage IV pressure ulcer right posterior trochanter, 10/26, Wound care assessment Stage III pressure ulcer sacral region, 10/26, Wound care assessment Stage IV pressure ulcer Coccyx, 10/26, Wound care assessment History/Risk Factors: 63-year-old male presents to the ED from Wound care for deteriorating sacral wound. Medical History: DM2, herniated disc, atrial fibrillation, COPD, Left above the knee amputation, Right below the knee amputation and sacral wound. Clinical Indicators: Wound care assessment, 10/26: The wound is currently classified as a Category/Stage IV wound with etiology of Pressure U lcer and is located on the Coccyx.The wound measures 6.7cm length x 4.8cm width x 3.5cm depth; 25.258cm 2 area and 88.404cm 3 volume.There is bone, muscle, Fat Layer (Subcutaneous Tissue), and fascia exposed. Wound care assessment, 10/26: Category/Stage IV wound with etiology of Pressure Ulcer and is located on the Left,Posterior Trochanter.The wound measures 4cm length x 2.3cm width x 3.5cm depth; 7.226cm 2 area and 25.29cm 3 volume.There is muscle, Fat Layer (Subcutaneous Tissue), and fascia exposed.Tunneling has been noted at 3:00 with a maximum distance of 3.5cm.Undermining begins at 12:00 and ends at 12:00 with a maximum distance of 3.5cm.There is a large amount of purulent drainage noted. Wound care assessment, 10/26: The wound is currently classified as a Category/Stage IV wound with etiology of Pressure Ulcer and is located on the Right,Posterior Trochanter.The wound measures 3.9cm length x 2.5cm width x 4.5cm depth; 7.658cm 2 area and 34.459cm 3 volume.There is muscle, Fat Layer (Subcutaneous Tissue), and fascia exposed. Tunneling has been noted at 7:00 with a maximum distance of 5.5cm. Treatment: Offloading; Negative pressure wound VAC at 150mmHg with black foam bridge all 3 ulcerations. Change Tuesday, and Tuesday. Please clarify which diagnosis is most appropriate: [ ] Stage III pressure ulcer of Coccyx [X] Stage IV pressure ulcer of Coccyx [ ] Other (please specify) [ ] Unable to determine [ X ] Stage III pressure ulcer of left buttock [ ] Stage IV pressure ulcer of left posterior trochanter [ ] Other (please specify) [ ] Unable to determine [ X ] Stage III pressure ulcer of right buttock [ ] Stage IV pressure ulcer of right posterior trochanter [ ] Other (please specify) [ ] Unable to determine (Template Last Revised: July 2020) MTDD
--- NOTE | 2023-10-28 14:30 | P.PN ---
Progress Note - Text Progress Note Date: 10/28/23 Chief Complaint: Not taking care of himself This is a 63-year-old patient, follows with Dr. Mendez. Chronic stable medical conditions include ADHD, herniated disc lower back, smoker. Sacral wounds. Left AKA. right above-knee amputation by Dr. Zee on April 2023 Has been known to, not being compliant. Smoking cigarettes. Recreational drugs. Diverting colostomy with Dr Pabon Patient supposed to follow-up with the wound care center by Dr. Bahena. Has not been that at least on the last 2 visits. Also his colostomy bag was dislodged. His sacral decubitus wound has been deteriorating. Patient states he gets [facility] home care coming out. Apparently has not been taking it himself. He has a son living with him. Patient spiked a fever of 102 in the ER. October 26: Admitted with sepsis from infected decubitus ulcer. ID following for antibiotics. Plan for debridement of sacral ulcer on Tuesday by Dr Pabon. Patient tired. Resume home dose of Varnell. Morphine. Resume home oral glycemic October 27: Patient getting IV Unasyn and IV daptomycin. Eating some. Rather sleepy/lethargic. Morphine was discontinued yesterday. Will cut back Varnell to 7.5 every 6. Pending debridement on Tuesday Active Medications Acetaminophen (Acetaminophen Tab 325 Mg Tab) 650 mg PO Q6HR PRN PRN Reason: Mild Pain or Fever > 100.5 Hydrocodone Bitart/Acetaminophen (Hydrocodone/Apap 7.5-325mg 1 Each Tab) 1 each PO Q6HR PRN PRN Reason: Pain Amiodarone HCl (Amiodarone 200 Mg Tab) 200 mg PO DAILY [facility] Last Admin: 10/28/23 08:23 Dose: 200 mg Calcium Carbonate/Glycine (Calcium Carbonate 500 Mg Chewable) 1,000 mg PO Q4HR PRN PRN Reason: Dyspepsia Dextrose/Water (Dextrose 50% Syringe 50 Ml) 25 ml IVP PER PROTOCOL PRN; Protocol PRN Reason: Hypoglycemia Dextrose/Water (Dextrose 50% Syringe 50 Ml) 50 ml IVP PER PROTOCOL PRN; Protocol PRN Reason: Hypoglycemia Enoxaparin Sodium (Enoxaparin 40 Mg/0.4 Ml Syringe) 40 mg SQ DAILY [facility] Last Admin: 10/28/23 08:22 Dose: 40 mg Gabapentin (Gabapentin 300 Mg Cap) 300 mg PO TID [facility] Last Admin: 10/28/23 08:22 Dose: 300 mg Daptomycin 300 mg/ Sodium (Chloride) 50 mls @ 100 mls/hr IVPB Q24H [facility]; Protocol Last Admin: 10/27/23 16:42 Dose: 100 mls/hr Ampicillin Sodium/Sulbactam (Sodium 3 gm/ Sodium Chloride) 100 mls @ 200 mls/hr IVPB Q6HR [facility]; Protocol Last Admin: 10/28/23 12:05 Dose: 200 mls/hr Lactated Ringer's (Lactated Ringers) 1,000 mls @ 75 mls/hr IV .[id number] [facility] Insulin Aspart (Insulin Aspart (Novolog) 100 Unit/Ml Vial) 0 unit SQ AC-TID [facility]; Protocol Last Admin: 10/28/23 11:57 Dose: Not Given Insulin Detemir (Insulin Detemir (Levemir) 100 Unit/Ml Syr) 12 unit SQ [facility] Last Admin: 10/28/23 00:13 Dose: 12 unit Lactulose (Lactulose 20 Gm/30 Ml Cup) 20 gm PO DAILY PRN PRN Reason: Constipation Linagliptin (Linagliptin 5 Mg Tablet) 5 mg PO DAILY [facility] Last Admin: 10/28/23 08:22 Dose: 5 mg Lorazepam (Lorazepam 0.5 Mg Tab) 0.5 mg PO Q6HR PRN PRN Reason: Anxiety Methocarbamol (Methocarbamol 500 Mg Tab) 500 mg PO QID [facility] Last Admin: 10/28/23 12:06 Dose: 500 mg Naloxone HCl (Naloxone 0.4 Mg/Ml 1 Ml Vial) 0.2 mg IV Q2M PRN PRN Reason: Opioid Reversal Naproxen (Naproxen 250 Mg Tab) 250 mg PO TID [facility] Last Admin: 10/28/23 12:06 Dose: 250 mg Ondansetron HCl (Ondansetron 4 Mg/2 Ml Vial) 4 mg IVP Q8HR PRN PRN Reason: Nausea And Vomiting Tamsulosin HCl (Tamsulosin 0.4 Mg Cap.Er.24h) 0.4 mg PO DAILY [facility] Last Admin: 10/28/23 08:22 Dose: 0.4 mg Temazepam (Temazepam 15 Mg Cap) 15 mg PO [facility] Last Admin: 10/27/23 20:58 Dose: 15 mg Past medical history to include: Diabetes, possible ADHD, chronic low back pain, herniated disc, atrial fibrillation. COPD. left above-knee amputation. Right below-knee amputation. Sacral wound Social history: Son lives with the patient. 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 Smokes about a pack a day, now down to a few cigarettes a day. Alcohol occasionally. Marijuana Physical examination: VITAL SIGNS: 97.8, 81, 16, 90/54, 97% room air GENERAL: Sleeping in bed to arousable EYES: Pupils equal. Conjunctiva normal. HEENT: External appearance of nose and ears normal, NG tube to suction NECK: JVD not raised; masses not palpable. HEART: First and second heart sounds are normal; no edema. LUNGS: Respiratory rate increased l; decreased breath sounds. ABDOMEN: Soft, left-sided colostomy-brown PSYCH: Sleepy but arousable will answer questions MUSCULOSKELETAL: Left and right above-knee amputation, incisions with rosetta healing well. Sacral wound. NEUROLOGICAL: Moving all 4 limbs. INVESTIGATIONS, reviewed in the clinical context: October 27: White count 9.9 hemoglobin 10 platelets 535 October 26: White count 12.8 hemoglobin 10.9 potassium 4.7 creatinine 0.32 October 26, 2023: White count 16.1 hemoglobin 12.3 platelets 667 sodium 135 potassium 4.6 BUN 10 creatinine 0.4 lactic acid 3.3 Urine drug screen positive for opiates, amphetamines, methamphetamines, marijuana Influenza type A, B, RSV, COVID-19 not detected EKG tracing personally reviewed by me-normal sinus rhythm Chest x-ray film personally reviewed by me-hyperinflation Assessment and plan: -Sepsis from infected chronic decubitus wound/sacrum: Improving ID: IV Unasyn IV daptomycin -Some metabolic encephalopathy from recreational drugs. And sepsis: Improving -Urine drug screen positive for methamphetamines, amphetamines, opiates, marijuana -Left and right above-knee amputation -Sacral decubitus ulcer, stage IV. With prior history of acute osteomyelitis.: Causing sepsis ID following Dr Pabon will do debridement on Tuesday -Paroxysmal atrial fibrillation: sinus rhythm Amiodarone. Lopressor. -Diabetes mellitus type 2, chronically on insulin Levemir. Follow Accu-Cheks sliding scale Januvia -COPD in a current smoker Bronchodilators as needed -Chronic nicotine dependence, cigarette smoker Nicotine patch -Chronic medical debility. Non-ambulatory -Full code Antibiotics per ID to continue. Pending debridement on Tuesday. Adjust Varnell to 7.5 every 6 as needed. Discussed with nurse. Cut back IV fluids. Past Medical History Past Medical History: Diabetes Mellitus Additional Past Medical History / Comment(s): pressure ulcers[Buttock,simone heals ,rt lateral foot]. BLOOD "ECOLI" INFECTION. History of Any Multi-Drug Resistant Organisms: None Reported Past Surgical History: Orthopedic Surgery Additional Past Surgical History / Comment(s): back pain son states pt recently "slipped a disc" taking gabapentin. Left leg above the knee amputation. RLE AKA. MICHELLE PICC LINE. Past Anesthesia/Blood Transfusion Reactions: No Reported Reaction Past Psychological History: No Psychological Hx Reported Smoking Status: Current every day smoker Past Alcohol Use History: Rare Past Drug Use History: None Reported
[2023-10-28] MEDS: LACTULOSE 20 GM/30 ML CUP PO PRN (15:42)
[2023-10-28] MEDS: HYDROcodone/APAP 7.5-325MG 1 EACH TAB PO PRN (15:42)
[2023-10-28] MEDS: LACTATED RINGERS 1,000 ML IV SCH (15:43)
--- NOTE | 2023-10-28 15:49 | P.PN ---
Subjective Progress Note Date: 10/28/23 Principal diagnosis: Reason for follow-up is sepsis and infected pressure ulcer Patient is a 63-year-old male past medical history significant for diabetes mellitus patient did have a history of pressure ulcer to the sacral and bilateral gluteal area for the patient did have a diverting colostomy to help heal these wounds, admitted to hospital with worsening wound did have a fever elevated white count concerning for sepsis related to his infected wound. On today's evaluation that is 10/28/2023, the patient did have resolution of his fever and is afebrile today, the patient is on room air and breathing comfortably, the Pt denies having any chest pain or cough, the patient denies having any abdominal pain no vomiting or any diarrhea has been reported by the nursing staff. Patient work normalized to 9.9 creatinine 0.[address] of the pelvis did not show any abscess or bony destruction Objective - Vital Signs Vital signs: Vital Signs Temp 97.8 F 10/28/23 11:30 Pulse 81 10/28/23 13:06 Resp 16 10/28/23 11:30 BP 90/54 10/28/23 11:30 Pulse Ox 97 10/28/23 11:30 FiO2 Intake & Output 10/27/23 10/28/23 10/28/23 18:59 06:59 18:59 Intake Total 240 Output Total 1500 Balance -1500 240 Weight 53.524 kg Intake: Oral 240 Output: Urine 1500 Other: Voiding Method Indwelling Catheter Indwelling Catheter - Exam GENERAL DESCRIPTION: Middle-age male lying in bed in no distress RESPIRATORY SYSTEM: Unlabored breathing , decreased breath sounds at bases HEART: S1 S2 regular rate and rhythm , ABDOMEN: Soft , no tenderness Wound is currently covered with a wound VAC - Labs CBC & Chem 7: 10/28/23 06:59 10/27/23 09:28 Labs: Abnormal Lab Results - Last 24 Hours (Table) 10/27/23 10/28/23 10/28/23 Range/Units 20:34 06:59 06:59 RBC 3.93 L (4.30-5.90) m/uL Hgb 10.0 L (13.0-17.5) gm/dL Hct 33.1 L (39.0-53.0) % MCHC 30.3 L (31.0-37.0) g/dL Plt Count 535 H (150-450) k/uL POC Glucose (mg/dL) 184 H (70-110) mg/dL C-Reactive Protein 12.9 H (<1.0) mg/dL 10/28/23 Range/Units 11:44 RBC (4.30-5.90) m/uL Hgb (13.0-17.5) gm/dL Hct (39.0-53.0) % MCHC (31.0-37.0) g/dL Plt Count (150-450) k/uL POC Glucose (mg/dL) 132 H (70-110) mg/dL C-Reactive Protein (<1.0) mg/dL Microbiology - Last 24 Hours (Table) 10/26/23 17:50 Blood Culture - Preliminary Blood 10/26/23 17:35 Blood Culture - Preliminary Blood Assessment and Plan (1) Sacral decubitus ulcer, stage IV Current Visit: Yes Status: Acute Code(s): L89.154 - PRESSURE ULCER OF SACRAL REGION, STAGE 4 SNOMED Code(s): 08750991214222 (2) Sepsis Current Visit: Yes Status: Acute Code(s): A41.9 - SEPSIS, UNSPECIFIED ORGANISM SNOMED Code(s): 98246361 (3) Stage III pressure ulcer of left buttock Current Visit: Yes Status: Acute Code(s): L89.323 - PRESSURE ULCER OF LEFT BUTTOCK, STAGE 3 SNOMED Code(s): 20395876082276 (4) Stage III pressure ulcer of right buttock Current Visit: Yes Status: Acute Code(s): L89.313 - PRESSURE ULCER OF RIGHT BUTTOCK, STAGE 3 SNOMED Code(s): 70917008621359 Plan: 1patient presented to hospital with sepsis in this patient who did have fever tachycardia elevated white count source is infected pressure ulcer as the patient was noted to have significant purulent drainage from the right gluteal pressure area 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 please excuse any grammatical, word or spelling errors.
[2023-10-28 16:23] LABS: Glucose,Whole Blood 215 mg/dL (70-110)
[2023-10-28 20:12] LABS: Glucose,Whole Blood 140 mg/dL (70-110)
[2023-10-29 03:24] LABS: Erythrocyte Sedimentation Rate 60 mm/Hr (0-20)
[2023-10-29 06:17] LABS: Glucose,Whole Blood 82 mg/dL (70-110)
--- NOTE | 2023-10-29 10:55 | P.PN ---
Subjective Progress Note Date: 10/29/23 JASPAL. No F/C. No worsening pain at decubital ulceration sites. No N/V. Objective - Vital Signs Vital signs: Vital Signs Temp 97.6 F 10/29/23 04:00 Pulse 77 10/29/23 04:00 Resp 18 10/29/23 04:00 BP 95/54 10/29/23 04:00 Pulse Ox 99 10/29/23 04:00 FiO2 Intake & Output 10/28/23 10/29/23 10/29/23 18:59 06:59 18:59 Intake Total 960 Output Total 650 1300 Balance 310 -1300 Intake: Oral 960 Output: Urine 650 1100 Stool 200 Other: Voiding Method Indwelling Catheter Indwelling Catheter # Bowel Movements 1 - Exam Gen: NAD resting comfortably Pulm: non-labored respirations Abd: soft, non-tender, non-distended Extrem: decubital ulceration wound dressings C/D/I no strikethrough or drainage seen - Labs CBC & Chem 7: 10/28/23 06:59 10/27/23 09:28 Labs: Abnormal Lab Results - Last 24 Hours (Table) 10/28/23 10/28/23 10/28/23 Range/Units 06:59 11:44 16:21 ESR 60 H (0-20) mm/Hr POC Glucose (mg/dL) 132 H 215 H (70-110) mg/dL 10/28/23 Range/Units 20:09 ESR (0-20) mm/Hr POC Glucose (mg/dL) 140 H (70-110) mg/dL Microbiology - Last 24 Hours (Table) 10/26/23 17:50 Blood Culture - Preliminary Blood 10/26/23 17:35 Blood Culture - Preliminary Blood Assessment and Plan Assessment: Patient is a 63M with sacral decubital ulcerations Plan: -Diet as tolerated -Continue frequent offloading -Continue local wound care -Plan for operative debridement on Tuesday Sridhar Krishnan MD General Surgery
[2023-10-29 11:42] LABS: Glucose,Whole Blood 240 mg/dL (70-110)
[2023-10-29] MEDS: LORazepam 0.5 MG TAB PO PRN (12:13)
--- NOTE | 2023-10-29 14:41 | P.PN ---
Subjective Progress Note Date: 10/29/23 Principal diagnosis: Reason for follow-up is sepsis and infected pressure ulcer Patient is a 63-year-old male past medical history significant for diabetes mellitus patient did have a history of pressure ulcer to the sacral and bilateral gluteal area for the patient did have a diverting colostomy to help heal these wounds, admitted to hospital with worsening wound did have a fever elevated white count concerning for sepsis related to his infected wound. On today's evaluation that is 10/29/2023, Patient is afebrile patient is currently on room air and denies having any shortness of breath, the patient denies any chest pain or cough, the patient denies any nausea vomiting did not have any abdominal pain and no diarrhea has been reported. No new labs has been obtained today blood cultures so far pending Objective - Vital Signs Vital signs: Vital Signs Temp 98.1 F 10/29/23 12:00 Pulse 78 10/29/23 13:23 Resp 16 10/29/23 13:23 BP 119/58 10/29/23 12:00 Pulse Ox 99 10/29/23 12:00 FiO2 Intake & Output 10/28/23 10/29/23 10/29/23 18:59 06:59 18:59 Intake Total 960 1180 Output Total 650 1300 200 Balance 310 -1300 980 Intake: Intake, IV Titration 700 Amount Ampicillin-Sulbactam 3 gm 100 In Sodium Chloride 0.9% 100 ml @ 200 mls/hr IVPB Q6HR [facility] Rx#:[id number] Lactated Ringers 1,000 ml 600 @ 75 mls/hr IV .[id number] [facility] Rx#:[id number] Oral 960 480 Output: Urine 650 1100 Stool 200 200 Other: Voiding Method Indwelling Catheter Indwelling Catheter Indwelling Catheter # Bowel Movements 1 - Exam GENERAL DESCRIPTION: Middle-age male lying in bed in no distress RESPIRATORY SYSTEM: Unlabored breathing , decreased breath sounds at bases HEART: S1 S2 regular rate and rhythm , ABDOMEN: Soft , no tenderness Wound is currently covered with a wound VAC - Labs CBC & Chem 7: 10/28/23 06:59 10/27/23 09:28 Labs: Abnormal Lab Results - Last 24 Hours (Table) 10/28/23 10/28/23 10/28/23 Range/Units 06:59 16:21 20:09 ESR 60 H (0-20) mm/Hr POC Glucose (mg/dL) 215 H 140 H (70-110) mg/dL 10/29/23 Range/Units 11:41 ESR (0-20) mm/Hr POC Glucose (mg/dL) 240 H (70-110) mg/dL Microbiology - Last 24 Hours (Table) 10/26/23 17:50 Blood Culture - Preliminary Blood 10/26/23 17:35 Blood Culture - Preliminary Blood Assessment and Plan (1) Sacral decubitus ulcer, stage IV Current Visit: Yes Status: Acute Code(s): L89.154 - PRESSURE ULCER OF SACRAL REGION, STAGE 4 SNOMED Code(s): 79898167539712 (2) Sepsis Current Visit: Yes Status: Acute Code(s): A41.9 - SEPSIS, UNSPECIFIED ORGANISM SNOMED Code(s): 75762276 (3) Stage III pressure ulcer of left buttock Current Visit: Yes Status: Acute Code(s): L89.323 - PRESSURE ULCER OF LEFT BUTTOCK, STAGE 3 SNOMED Code(s): 43499665782465 (4) Stage III pressure ulcer of right buttock Current Visit: Yes Status: Acute Code(s): L89.313 - PRESSURE ULCER OF RIGHT BUTTOCK, STAGE 3 SNOMED Code(s): 49563844772783 Plan: 1patient presented to hospital with sepsis in this patient who did have fever tachycardia elevated white count source is infected pressure ulcer as the patient was noted to have significant purulent drainage from the right gluteal pressure area 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 dictation software. please excuse any grammatical, word or spelling errors.
[2023-10-29 16:47] LABS: Glucose,Whole Blood 256 mg/dL (70-110)
[2023-10-29 21:17] LABS: Glucose,Whole Blood 273 mg/dL (70-110)
[2023-10-30 06:34] LABS: Glucose,Whole Blood 79 mg/dL (70-110)
[2023-10-30] MEDS: INSULIN ASPART (NovoLOG) 100 UNIT/ML VIAL SQ SCH (06:52)
--- NOTE | 2023-10-30 06:56 | P.PN ---
Subjective Progress Note Date: 10/29/23 Chief Complaint: Not taking care of himself This is a 63-year-old patient, follows with Dr. Mendez. Chronic stable medical conditions include ADHD, herniated disc lower back, smoker. Sacral wounds. Lef t AKA. right above-knee amputation by Dr. Zee on April 2023 Has been known to, not being compliant. Smoking cigarettes. Recreational drugs. Diverting colostomy with Dr Pabon Patient supposed to follow-up with the wound care center by Dr. Bahena. Has not been that at least on the last 2 visits. Also his colostomy bag was dislodged. His sacral decubitus wound has been deteriorating. Patient states he gets [facility] home care coming out. Apparently has not been taking it himself. He has a son living with him. Patient spiked a fever of 102 in the ER. October 26: Admitted with sepsis from infected decubitus ulcer. ID following for antibiotics. Plan for debridement of sacral ulcer on Tuesday by Dr Pabon. Patient tired. Resume home dose of [place]. Morphine. Resume home oral glycemic October 27: Patient getting IV Unasyn and IV daptomycin. Eating some. Rather sleepy/lethargic. Morphine was discontinued yesterday. Will cut back [place] to 7.5 every 6. Pending debridement on Tuesday10/29/2023 Patient seen this morning awake, alert and oriented being maintained on IV antibiotics in the form of Unasyn and daptomycin with infectious disease following. Blood cultures thus far negative and general surgery following as well with plans of surgical debridement of the decubitus ulcer. Await deep tissue culture finalization to determine discharge antibiotics. Blood sugars have been uncontrolled and will continue with Accu-Cheks before meals and at bedtime and adjust insulins accordingly. Continue local wound care. Patient is afebrile with no reports of chest pain or shortness of breath. Patient reporting his chronic back and leg pain requesting to increase his pain medi cations. Patient takes a number of medications which have been adjusted as patient was lethargic previously and also continued on morphine. Will continue current regimen for now. Follow-up on repeat labs in the a.m. Physical examination: GENERAL: This is a 63-year-old male who is awake, alert and oriented x 3, thin built, cachectic, elderly appearing, ill-appearing EYES: Pupils equal. Conjunctiva normal. HEENT: External appearance of nose and ears normal, NG tube to suction NECK: JVD not raised; masses not palpable. HEART: S1, S2 are muffled LUNGS: Diminished breath sounds bilaterally with no wheezing or rhonchi noted ABDOMEN: Soft, thin, scaphoid left-sided colostomy-brown stool noted PSYCH: Cooperative, slightly anxious MUSCULOSKELETAL: Left and right above-knee amputation, incisions with rosetta healing well. Sacral wound. NEUROLOGICAL: Moving all 4 limbs. Assessment: -Sepsis from infected chronic decubitus wound/sacrum: Blood cultures thus far negative and continued on IV antibiotics, plan for surgical debridement on Tuesday with general surgery -Acute metabolic encephalopathy from recreational drugs as well as sepsis, present on admission, improving -Urine drug screen positive for methamphetamines, amphetamines, opiates, marijuana -Left and right above-knee amputation history -Sacral decubitus ulcer, stage IV. With prior history of acute osteomyelitis with sepsis, present on admission, plans for debridement on Tuesday with general surgery -Paroxysmal atrial fibrillation: Currently sinus rhythm -Diabetes mellitus type 2, insulin-dependent, uncontrolled with hyperglycemia -COPD in a current smoker, not in exacerbation -Continued ongoing nicotine dependence -Chronic medical debility. Non-ambulatory -GI prophylaxis -DVT prophylaxis -Full code Plan: Patient is continued on IV antibiotics in the form of daptomycin cultures thus far negative. Patient continues with significant decubitus ulcer with general surgery following planning on debridement with deep tissue cultures on Tuesday Will await finalized cultures to determine discharge antibiotics Continue with local wound care Follow-up on repeat labs and replace electrolytes per protocol Continue monitoring Accu-Cheks ACHS and will adjust insulins accordingly Discussed with case management/social work regarding discharge planning once cultures have finalized to determine the need for IV antibiotic therapy and possible ECF Patient is asking for an increase in his pain medications although he takes a significant amount, will continue current regimen The impression and plan of care has been dictated by Kaykay Polk, Nurse Practitioner as directed. Dr. Evelyn MD I have performed a history and examination and MDM of this patient, discussed the same with the dictator, and agree with the dictator's assessment and plan as written ,documented as a scribe. Based on total visit time, I have performed more than 50% of the visit. Along that lab Objective - Vital Signs Vital signs: Vital Signs Temp 97.6 F 10/29/23 04:00 Pulse 77 10/29/23 04:00 Resp 18 10/29/23 04:00 BP 95/54 10/29/23 04:00 Pulse Ox 99 10/29/23 04:00 FiO2 Intake & Output 10/28/23 10/29/23 10/29/23 18:59 06:59 18:59 Intake Total 960 Output Total 650 1300 Balance 310 -1300 Intake: Oral 960 Output: Urine 650 1100 Stool 200 Other: Voiding Method Indwelling Catheter Indwelling Catheter # Bowel Movements 1 - Labs CBC & Chem 7: 10/28/23 06:59 10/27/23 09:28 Labs: Abnormal Lab Results - Last 24 Hours (Table) 10/28/23 10/28/23 10/28/23 Range/Units 06:59 11:44 16:21 ESR 60 H (0-20) mm/Hr POC Glucose (mg/dL) 132 H 215 H (70-110) mg/dL 10/28/23 Range/Units 20:09 ESR (0-20) mm/Hr POC Glucose (mg/dL) 140 H (70-110) mg/dL Microbiology - Last 24 Hours (Table) 10/26/23 17:50 Blood Culture - Preliminary Blood 10/26/23 17:35 Blood Culture - Preliminary Blood
[2023-10-30 07:32] LABS: Glucose,Whole Blood 75 mg/dL (70-110)
[2023-10-30 07:50] LABS: African American GFR (CKD) >90 (>60 ml/min/1.73 sqM); Anion Gap 0 mmol/L; Blood Urea Nitrogen 8 mg/dL (9-20); Calcium 8.1 mg/dL (8.4-10.2); Carbon Dioxide 30 mmol/L (22-30); Chloride 110 mmol/L (98-107); Glucose 87 mg/dL (74-99); Non-African American GFR(CKD) >90 (>60 ml/min/1.73 sqM); Potassium 4.8 mmol/L (3.5-5.1); Sodium 140 mmol/L (137-145)
[2023-10-30 07:54] LABS: Basophils # (A) 0.1 k/uL (0-0.2); Basophils % (A) 1 %; Eosinophils # (A) 0.7 k/uL (0-0.7); Eosinophils % (A) 9 %; HCT 34.7 % (39.0-53.0); HGB 10.5 gm/dL (13.0-17.5); Hypochromasia Moderate; Lymphocytes # (A) 1.2 k/uL (1.0-4.8); Lymphocytes % (A) 15 %; MCH 25.9 pg (25.0-35.0); MCHC 30.4 g/dL (31.0-37.0); MCV 85.1 fL (80.0-100.0); Monocytes # (A) 0.4 k/uL (0-1.0); Monocytes % (A) 5 %; Neutrophils # (A) 5.6 k/uL (1.3-7.7); Neutrophils % (A) 69 %; Platelet Count 461 k/uL (150-450); RBC 4.07 m/uL (4.30-5.90)
[2023-10-30] MEDS: ACETAMINOPHEN TAB 325 MG TAB PO PRN (11:37)
[2023-10-30 12:06] LABS: Glucose,Whole Blood 169 mg/dL (70-110)
--- NOTE | 2023-10-30 12:50 | P.PN ---
Subjective Progress Note Date: 10/30/23 patient [place] stable. His decubitus ulcer has not changed. Patient scheduled for possible debridement in the a.m. Objective - Vital Signs Vital signs: Vital Signs Temp 98.3 F 10/30/23 11:33 Pulse 85 10/30/23 11:33 Resp 16 10/30/23 11:33 BP 116/68 10/30/23 11:33 Pulse Ox 99 10/30/23 11:33 FiO2 Intake & Output 10/29/23 10/30/23 10/30/23 18:59 06:59 18:59 Intake Total 1416 118 Output Total 900 700 Balance 516 -700 118 Intake: Intake, IV Titration 700 Amount Ampicillin-Sulbactam 3 gm 100 In Sodium Chloride 0.9% 100 ml @ 200 mls/hr IVPB Q6HR [facility] Rx#:[id number] Lactated Ringers 1,000 ml 600 @ 75 mls/hr IV .[id number] [facility] Rx#:[id number] Oral 716 118 Output: Urine 700 700 Stool 200 Other: Voiding Method Indwelling Catheter Indwelling Catheter Indwelling Catheter - Labs CBC & Chem 7: 10/30/23 05:46 10/30/23 05:46 Labs: Abnormal Lab Results - Last 24 Hours (Table) 10/29/23 10/29/23 10/30/23 Range/Units 16:43 21:16 05:46 RBC 4.07 L (4.30-5.90) m/uL Hgb 10.5 L (13.0-17.5) gm/dL Hct 34.7 L (39.0-53.0) % MCHC 30.4 L (31.0-37.0) g/dL Plt Count 461 H (150-450) k/uL Chloride (98-107) mmol/L BUN (9-20) mg/dL Creatinine (0.66-1.25) mg/dL POC Glucose (mg/dL) 256 H 273 H (70-110) mg/dL Calcium (8.4-10.2) mg/dL 10/30/23 10/30/23 Range/Units 05:46 12:04 RBC (4.30-5.90) m/uL Hgb (13.0-17.5) gm/dL Hct (39.0-53.0) % MCHC (31.0-37.0) g/dL Plt Count (150-450) k/uL Chloride 110 H (98-107) mmol/L BUN 8 L (9-20) mg/dL Creatinine 0.40 L (0.66-1.25) mg/dL POC Glucose (mg/dL) 169 H (70-110) mg/dL Calcium 8.1 L (8.4-10.2) mg/dL Microbiology - Last 24 Hours (Table) 10/26/23 17:50 Blood Culture - Preliminary Blood 10/26/23 17:35 Blood Culture - Preliminary Blood
[2023-10-30 16:28] LABS: Glucose,Whole Blood 204 mg/dL (70-110)
--- NOTE | 2023-10-30 19:41 | P.PN ---
Subjective Progress Note Date: 10/30/23 Chief Complaint: Not taking care of himself This is a 63-year-old patient, follows with Dr. Mendez. Chronic stable medical conditions include ADHD, herniated disc lower back, smoker. Sacral wounds. Left AKA. right above-knee amputation by Dr. Zee on April 2023 Has been known to, not being compliant. Smoking cigarettes. Recreational drugs. Diverting colostomy with Dr Pabon Patient supposed to follow-up with the wound care center by Dr. Bahena. Has not been that at least on the last 2 visits. Also his colostomy bag was dislodged. His sacral decubitus wound has been deteriorating. Patient states he gets [facility] home care coming out. Apparently has not been taking it himself. He has a son living with him. Patient spiked a fever of 102 in the ER. October 26: Admitted with sepsis from infected decubitus ulcer. ID following for antibiotics. Plan for debridement of sacral ulcer on Tuesday by Dr Pabon. Patient tired. Resume home dose of [place]. Morphine. Resume home oral glycemic October 27: Patient getting IV Unasyn and IV daptomycin. Eating some. Rather sleepy/lethargic. Morphine was discontinued yesterday. Will cut back [place] to 7.5 every 6. Pending debridement on Tuesday10/29/2023 Patient seen this morning awake, alert and oriented being maintained on IV antibiotics in the form of Unasyn and daptomycin with infectious disease following. Blood cultures thus far negative and general surgery following as well with plans of surgical debridement of the decubitus ulcer. Await deep tissue culture finalization to determine discharge antibiotics. Blood sugars have been uncontrolled and will continue with Accu-Cheks before meals and at bedtime and adjust insulins accordingly. Continue local wound care. Patient is afebrile with no reports of chest pain or shortness of breath. Patient reporting his chronic back and leg pain requesting to increase his pain medicati ons. Patient takes a number of medications which have been adjusted as patient was lethargic previously and also continued on morphine. Will continue current regimen for now. Follow-up on repeat labs in the a.m. 10/30/2023 Patient is evaluated today in follow up. He is more awake alert. Remains on IV daptomycin and IV unasyn. ID following closely. He is scheduled to undergo surgical debridement of the sacral wound tomorrow. Wound vac in place. Renal function WNL. Review of Systems Constitutional: Denied any fatigue denied any fever. Cardio vascular: denied any chest pain, palpitations Gastrointestinal: denied any nausea, vomiting, diarrhea Pulmonary: Denied any shortness of breath cough Neurologic denied any new focal deficits All inpatient medications were reviewed and appropriate changes in these medications as dictated in the interval history and assessment and plan. Physical examination: GENERAL: This is a 63-year-old male who is awake, alert and oriented x 3, thin built, cachectic, elderly appearing, ill-appearing EYES: Pupils equal. Conjunctiva normal. HEENT: External appearance of nose and ears normal, NG tube to suction NECK: JVD not raised; masses not palpable. HEART: S1, S2 are muffled LUNGS: Diminished breath sounds bilaterally with no wheezing or rhonchi noted ABDOMEN: Soft, thin, scaphoid left-sided colostomy-brown stool noted PSYCH: Cooperative, slightly anxious MUSCULOSKELETAL: Left and right above-knee amputation, incisions with rosetta healing well. Sacral wound. NEUROLOGICAL: Moving all 4 limbs. Assessment: -Sepsis from infected chronic decubitus wound/sacrum: Blood cultures thus far negative and continued on IV antibiotics, plan for surgical debridement on Tuesday with general surgery -Acute metabolic encephalopathy from recreational drugs as well as sepsis, present on admission, improving -Urine drug screen positive for methamphetamines, amphetamines, opiates, marijuana -Left and right above-knee amputation history -Sacral decubitus ulcer, stage IV. With prior history of acute osteomyelitis with sepsis, present on admission, plans for debridement on Tuesday with general surgery -Paroxysmal atrial fibrillation: Currently sinus rhythm -Diabetes mellitus type 2, insulin-dependent, uncontrolled with hyperglycemia -COPD in a current smoker, not in exacerbation -Continued ongoing nicotine dependence -Chronic medical debility. Non-ambulatory -GI prophylaxis -DVT prophylaxis -Full code Plan: Patient is continued on IV antibiotics in the form of daptomycin cultures thus far negative. Patient continues with significant decubitus ulcer with general surgery following planning on debridement with deep tissue cultures on Tuesday Will await finalized cultures to determine discharge antibiotics Continue with local wound care Follow-up on repeat labs and replace electrolytes per protocol Continue monitoring Accu-Cheks ACHS and will adjust insulins accordingly Discussed with case management/social work regarding discharge planning once cultures have finalized to determine the need for IV antibiotic therapy and possible ECF Patient is asking for an increase in his pain medications although he takes a significant amount, will continue current regimen The impression and plan of care has been dictated by Aisha Boswell, Nurse Practitioner as directed. Dr. Evelyn MD I have performed a history and physical examination and medical decision making of this patient, discussed the same with the dictator, and agree with the dictators assessment and plan as written, documented as a scribe. Based on total visit time, I have performed more than 50% of this visit. Objective - Vital Signs Vital signs: Vital Signs Temp 98.3 F 10/30/23 11:33 Pulse 85 10/30/23 11:33 Resp 16 10/30/23 11:33 BP 116/68 10/30/23 11:33 Pulse Ox 99 10/30/23 11:33 FiO2 Intake & Output 10/29/23 10/30/23 10/30/23 18:59 06:59 18:59 Intake Total 1416 118 Output Total 900 700 Balance 516 -700 118 Intake: Intake, IV Titration 700 Amount Ampicillin-Sulbactam 3 gm 100 In Sodium Chloride 0.9% 100 ml @ 200 mls/hr IVPB Q6HR [facility] Rx#:[id number] Lactated Ringers 1,000 ml 600 @ 75 mls/hr IV .[id number] [facility] Rx#:[id number] Oral 716 118 Output: Urine 700 700 Stool 200 Other: Voiding Method Indwelling Catheter Indwelling Catheter Indwelling Catheter - Labs CBC & Chem 7: 10/30/23 05:46 10/30/23 05:46 Labs: Abnormal Lab Results - Last 24 Hours (Table) 10/29/23 10/29/23 10/30/23 Range/Units 16:43 21:16 05:46 RBC 4.07 L (4.30-5.90) m/uL Hgb 10.5 L (13.0-17.5) gm/dL Hct 34.7 L (39.0-53.0) % MCHC 30.4 L (31.0-37.0) g/dL Plt Count 461 H (150-450) k/uL Chloride (98-107) mmol/L BUN (9-20) mg/dL Creatinine (0.66-1.25) mg/dL POC Glucose (mg/dL) 256 H 273 H (70-110) mg/dL Calcium (8.4-10.2) mg/dL 10/30/23 10/30/23 Range/Units 05:46 12:04 RBC (4.30-5.90) m/uL Hgb (13.0-17.5) gm/dL Hct (39.0-53.0) % MCHC (31.0-37.0) g/dL Plt Count (150-450) k/uL Chloride 110 H (98-107) mmol/L BUN 8 L (9-20) mg/dL Creatinine 0.40 L (0.66-1.25) mg/dL POC Glucose (mg/dL) 169 H (70-110) mg/dL Calcium 8.1 L (8.4-10.2) mg/dL Microbiology - Last 24 Hours (Table) 10/26/23 17:50 Blood Culture - Preliminary Blood 10/26/23 17:35 Blood Culture - Preliminary Blood Assessment and Plan Time with Patient: Less than 30
[2023-10-30 20:10] LABS: Glucose,Whole Blood 209 mg/dL (70-110)
[2023-10-31 06:20] LABS: Glucose,Whole Blood 146 mg/dL (70-110)
--- NOTE | 2023-10-31 07:57 | CDI ---
Documentation Clarification Form Date: 10/31/2023 07:25:42 AM From: Luli Toney RN CCDS Phone: [phone] Admit Date: 10/26/2023 07:00:00 PM Patient Name: Misael Langley Visit Number: [id number] Discharge Date: ATTENTION: The Clinical Documentation Specialists (CDI) and [facility] Coding Staff appreciate your assistance in clarifying documentation. Please respond to the clarification below the line at the bottom and electronically sign. The CDI & [facility] Coding staff will review the response and follow-up if needed. Please note: Queries are made part of the Legal Health Record. If you have any questions, please contact the author of this message via ITS. Dr. Jerardo Guillen The Registered Dietitian assessment on 10/26 Indicates that the patient has increased nutrient needs of protein, calories, vitamin C and zinc. Based on this information and the findings below, is there an additional diagnosis that is clinically appropriate for this patient? History/Risk Factors: 63-year-old male presents to the ED from Wound care for deteriorating sacral wound. Medical History: DM2, Herniated disc, Atrial Fibrillation, COPD, Left above the knee amputation, Right below the knee amputation and Pressure Ulcers. 10/25,HP Clinical Indicators: RD Consult Assessment: Current BMI:17.4; Wgt 53.524kg estimated by patient; Hgt 5ft 9inch; Underweight, calculated [place] body weight 72.575kg. Estimated Nutritional Kcals: Energy formula 25-30Kcals/Kg; Energy needs 1814- 2177 Kcal. KCAL comment CH: 354 grams. Estimated Protein Needs: Estimated protein range 1.5grams/kg; estimated protein needs 109grams/day. Estimated fluid needs 1ml/Kcal Estimated fluid 1814 Needs mls/day. Physical findings Hyper metabolism related to wounds: Stage IV sacral pressure ulcer and Bilateral Buttock Stage IV pressure ulcer. Right below the knee amputation. Nutritional diagnosis Intake: Increased nutrient needs: protein, calories, vitamin C and Zinc Related to Increase metabolic demand for wound healing. Evidenced by pressure injuries. [Cite applicable ASPEN criteria listed below] Treatment: Monitoring PO intake, Monitoring Supplement intake, Carbohydrate modified diet. Supplements: Glucerna PO TID Is there an additional diagnosis that is clinically appropriate for this patient? [ ] Moderate Protein-Calorie Malnutrition [ + ] Severe Protein-Calorie Malnutrition [ ] No additional diagnosis/Not clinically significant [ ] Other condition, please specify [ ] Unable to Determine Reference: Using the ASPEN Guidelines, Undernutrition (Malnutrition) is characterized by at least two of the following six findings. The severity can be determined based on the criteria listed below. Malnutrition Characteristics for Moderate and Severe Malnutrition Type of Malnutrition Acute Illness or Injury Chronic Illness Degree of Malnutrition Non-severe (moderate) Malnutrition Severe Malnutrition Non-severe (moderate) Malnutrition Severe Malnutrition Energy Intake <75% for >7 days = 50% for = 5 days <75% for = 1 month =75% for = 1 month Weight Loss 1-2% in one week, 5% in 1 month, 7.5% in 3 months 2% in one week, >5% in 1 month, >7.5% in 3 months 5% in one month, 7.5% in 3 months, 10% in 6 months, 20% in 1 year >5% in one month, >7.5% in 3 months, >10% in 6 months, >20% in 1 year Body Fat Wasting Mild Moderate Mild Severe Muscle Wasting Mild Moderate Mild Severe Presence of Edema Mild Moderate to Severe Mild Severe Running Instructor Strength Not applicable Measurably Reduced Not applicable Measurably Reduced Source: Jaqueline MackV, Yandel P, Orta G, et al. Consensus statement: Academy of Nutrition and Dietetics and [place] [employer] for Parenteral and Enteral Nutrition: characteristics recommended for the identification and documentation of adult malnutrition (undernutrition).JEM Mack Parenter Enteral Nutr. 2012;36(3):275-283. (Template Last Revised: November 2022) MTDD
[2023-10-31 08:41] LABS: Basophils # (A) 0.1 k/uL (0-0.2); Basophils % (A) 1 %; Eosinophils # (A) 0.6 k/uL (0-0.7); Eosinophils % (A) 7 %; HCT 32.9 % (39.0-53.0); Hypochromasia Moderate; Lymphocytes # (A) 1.6 k/uL (1.0-4.8); Lymphocytes % (A) 20 %; MCH 25.9 pg (25.0-35.0); MCHC 30.5 g/dL (31.0-37.0); MCV 84.9 fL (80.0-100.0); Monocytes # (A) 0.5 k/uL (0-1.0); Monocytes % (A) 6 %; Neutrophils # (A) 5.3 k/uL (1.3-7.7); Neutrophils % (A) 66 %; Platelet Count 439 k/uL (150-450); RBC 3.88 m/uL (4.30-5.90); RDW 13.9 % (11.5-15.5)
[2023-10-31 08:53] LABS: African American GFR (CKD) >90 (>60 ml/min/1.73 sqM); Anion Gap -1 mmol/L; Blood Urea Nitrogen 11 mg/dL (9-20); Carbon Dioxide 29 mmol/L (22-30); Chloride 109 mmol/L (98-107); Glucose 106 mg/dL (74-99); Non-African American GFR(CKD) >90 (>60 ml/min/1.73 sqM); Potassium 4.9 mmol/L (3.5-5.1); Sodium 137 mmol/L (137-145)
[2023-10-31 10:35] LABS: Glucose,Whole Blood 92 mg/dL (70-110)
[2023-10-31] MEDS: IV FLUID CONTINUATION 1,000 ML IV ONE (10:37)
[2023-10-31] MEDS: ONDANSETRON 4 MG/2 ML VIAL IVP PRN (10:48)
[2023-10-31] MEDS ORDERED: fentaNYL (PF) 50 MCG/ML 2 ML AMP ONE (10:57)
[2023-10-31] MEDS ORDERED: PHENYLEPHRINE 10 MG/ML VIAL ONE (10:57)
[2023-10-31] MEDS ORDERED: SUCCINYLCHOLINE CHLORIDE 200 MG/10 ML VIAL IV ONE (10:57)
[2023-10-31] MEDS ORDERED: PROPOFOL 10 MG/ML 20 ML VIAL IV ONE (10:57)
--- NOTE | 2023-10-31 11:35 | P.OP ---
Date of Procedure: 10/31/23 Preoperative Diagnosis: sacral decubitus ulcer Postoperative Diagnosis: sacral decubitus ulcer Procedure(s) Performed: debridement of sacral decubitus ulcer Anesthesia: BLAKE Surgeon: Neal Pabon Pathology: none sent Condition: stable Disposition: PACU Description of Procedure: the patient's placed on the operative table in the lateral position. He received IV sedation and then general anesthesia. His wound VAC was taken down. The patient had a sacral decubitus ulcer as well as bilateral ischial ulcers. The wound looks fairly healthy. There was a small amount necrotic skin and fat on the sacral decubitus ulcer. This was sharply divided. With a 15 blade. Left cautery. Hemostasis. The wound was then cleaned. And then a wound VAC was applied. Patient tolerated procedure well.ill well. He was sent to recovery room stable condition.
[2023-10-31] MEDS: HYDROmorphone 0.5 MG/0.5 ML SYRINGE IVP ONE (12:00)
[2023-10-31] MEDS: LACTATED RINGERS 1,000 ML IV ONE (12:24)
[2023-10-31 13:08] LABS: Glucose,Whole Blood 96 mg/dL (70-110)
[2023-10-31] MEDS: HYDROmorphone 0.5 MG/0.5 ML SYRINGE IM STA (14:11)
--- NOTE | 2023-10-31 15:14 | P.PN ---
Subjective Progress Note Date: 10/31/23 Chief Complaint: Not taking care of himself This is a 63-year-old patient, follows with Dr. Mendez. Chronic stable medical conditions include ADHD, herniated disc lower back, smoker. Sacral wounds. Left AKA. right above-knee amputation by Dr. Zee on April 2023 Has been known to, not being compliant. Smoking cigarettes. Recreational drugs. Diverting colostomy with Dr Pabon Patient supposed to follow-up with the wound care center by Dr. Bahena. Has not been that at least on the last 2 visits. Also his colostomy bag was dislodged. His sacral decubitus wound has been deteriorating. Patient states he gets [facility] home care coming out. Apparently has not been taking it himself. He has a son living with him. Patient spiked a fever of 102 in the ER. October 26: Admitted with sepsis from infected decubitus ulcer. ID following for antibiotics. Plan for debridement of sacral ulcer on Tuesday by Dr Pabon. Patient tired. Resume home dose of [place]. Morphine. Resume home oral glycemic October 27: Patient getting IV Unasyn and IV daptomycin. Eating some. Rather sleepy/lethargic. Morphine was discontinued yesterday. Will cut back [place] to 7.5 every 6. Pending debridement on Tuesday10/29/2023 Patient seen this morning awake, alert and oriented being maintained on IV antibiotics in the form of Unasyn and daptomycin with infectious disease following. Blood cultures thus far negative and general surgery following as well with plans of surgical debridement of the decubitus ulcer. Await deep tissue culture finalization to determine discharge antibiotics. Blood sugars have been uncontrolled and will continue with Accu-Cheks before meals and at bedtime and adjust insulins accordingly. Continue local wound care. Patient is afebrile with no reports of chest pain or shortness of breath. Patient reporting his chronic back and leg pain requesting to increase his pain medicati ons. Patient takes a number of medications which have been adjusted as patient was lethargic previously and also continued on morphine. Will continue current regimen for now. Follow-up on repeat labs in the a.m. 10/30/2023 Patient is evaluated today in follow up. He is more awake alert. Remains on IV daptomycin and IV unasyn. ID following closely. He is scheduled to undergo surgical debridement of the sacral wound tomorrow. Wound vac in place. Renal function WNL. 10/31/2023 Patient evaluated in follow up today. Pending surgical debridement of his sacral wound. Deep tissue cultures ordered. Remains on IV unasyn and IV daptomycin. White blood cell count 8.0. He is on room air. His mentation continues to improve although he is requesting an increase in narcotics. Review of Systems Constitutional: Denied any fatigue denied any fever. Cardio vascular: denied any chest pain, palpitations Gastrointestinal: denied any nausea, vomiting, diarrhea Pulmonary: Denied any shortness of breath cough Neurologic denied any new focal deficits All inpatient medications were reviewed and appropriate changes in these medications as dictated in the interval history and assessment and plan. Physical examination: GENERAL: This is a 63-year-old male who is awake, alert and oriented x 3, thin b uilt, cachectic, elderly appearing, ill-appearing EYES: Pupils equal. Conjunctiva normal. HEENT: External appearance of nose and ears normal, NG tube to suction NECK: JVD not raised; masses not palpable. HEART: S1, S2 are muffled LUNGS: Diminished breath sounds bilaterally with no wheezing or rhonchi noted ABDOMEN: Soft, thin, scaphoid left-sided colostomy-brown stool noted PSYCH: Cooperative, slightly anxious MUSCULOSKELETAL: Left and right above-knee amputation. Sacral wound. NEUROLOGICAL: Moving all 4 limbs. Assessment: -Sepsis from infected chronic decubitus wound/sacrum: Blood cultures thus far negative and continued on IV antibiotics, plan for surgical debridement today with general surgery -Acute metabolic encephalopathy from recreational drugs as well as sepsis, present on admission, improving -Urine drug screen positive for methamphetamines, amphetamines, opiates, marijuana -Left and right above-knee amputation history -Sacral decubitus ulcer, stage IV. With prior history of acute osteomyelitis with sepsis, present on admission, plans for debridement on Tuesday with general surgery -Paroxysmal atrial fibrillation: Currently sinus rhythm -Diabetes mellitus type 2, insulin-dependent, uncontrolled with hyperglycemia -COPD in a current smoker, not in exacerbation -Continued ongoing nicotine dependence -Chronic medical debility. Non-ambulatory -GI prophylaxis -DVT prophylaxis -Full code Plan: Patient is continued on IV antibiotics in the form of daptomycin cultures thus far negative. Patient continues with significant decubitus ulcer with general surgery following planning on debridement with deep tissue cultures on Tuesday Will await finalized cultures to determine discharge antibiotics Continue with local wound care Follow-up on repeat labs and replace electrolytes per protocol Continue monitoring Accu-Cheks ACHS and will adjust insulins accordingly Discussed with case management/social work regarding discharge planning once cultures have finalized to determine the need for IV antibiotic therapy and possible ECF Patient is asking for an increase in his pain medications although he takes a significant amount, will continue current regimen The impression and plan of care has been dictated by Aisha Boswell, Nurse Practitioner as directed. Dr. Evelyn MD I have performed a history and physical examination and medical decision making of this patient, discussed the same with the dictator, and agree with the dictators assessment and plan as written, documented as a scribe. Based on total visit time, I have performed more than 50% of this visit. Objective - Vital Signs Vital signs: Vital Signs Temp 98.0 F 10/31/23 11:54 Pulse 85 10/31/23 12:39 Resp 20 10/31/23 12:39 BP 150/63 10/31/23 12:39 Pulse Ox 97 10/31/23 12:39 FiO2 Intake & Output 10/30/23 10/31/23 10/31/23 18:59 06:59 18:59 Intake Total 476 200 900 Output Total 1999 1550 705 Balance -1524 -1350 195 Intake: IV 900 Intake, IV Titration 200 Amount Ampicillin-Sulbactam 3 gm 200 In Sodium Chloride 0.9% 100 ml @ 200 mls/hr IVPB Q6HR [facility] Rx#:[id number] Oral 476 Output: Urine 1800 1550 700 Stool 200 Estimated Blood Loss 5 Other: Voiding Method Indwelling Catheter Indwelling Catheter Indwelling Catheter - Labs CBC & Chem 7: 10/31/23 08:12 10/31/23 08:12 Labs: Abnormal Lab Results - Last 24 Hours (Table) 10/30/23 10/30/23 10/31/23 Range/Units 16:25 20:08 06:18 RBC (4.30-5.90) m/uL Hgb (13.0-17.5) gm/dL Hct (39.0-53.0) % MCHC (31.0-37.0) g/dL Chloride (98-107) mmol/L Creatinine (0.66-1.25) mg/dL Glucose (74-99) mg/dL POC Glucose (mg/dL) 204 H 209 H 146 H (70-110) mg/dL Calcium (8.4-10.2) mg/dL 10/31/23 10/31/23 Range/Units 08:12 08:12 RBC 3.88 L (4.30-5.90) m/uL Hgb 10.0 L (13.0-17.5) gm/dL Hct 32.9 L (39.0-53.0) % MCHC 30.5 L (31.0-37.0) g/dL Chloride 109 H (98-107) mmol/L Creatinine 0.43 L (0.66-1.25) mg/dL Glucose 106 H (74-99) mg/dL POC Glucose (mg/dL) (70-110) mg/dL Calcium 8.0 L (8.4-10.2) mg/dL Assessment and Plan Time with Patient: Less than 30
[2023-10-31 16:09] LABS: Glucose,Whole Blood 153 mg/dL (70-110)
[2023-10-31 19:44] LABS: Glucose,Whole Blood 240 mg/dL (70-110)
[2023-11-01 06:18] LABS: Glucose,Whole Blood 206 mg/dL (70-110)
[2023-11-01 11:41] LABS: Glucose,Whole Blood 149 mg/dL (70-110)
--- NOTE | 2023-11-01 11:52 | P.PN ---
Subjective Progress Note Date: 11/01/23 Chief Complaint: Not taking care of himself This is a 63-year-old patient, follows with Dr. Mendez. Chronic stable medical conditions include ADHD, herniated disc lower back, smoker. Sacral wounds. Left AKA. right above-knee amputation by Dr. Zee on April 2023 Has been known to, not being compliant. Smoking cigarettes. Recreational drugs. Diverting colostomy with Dr Pabon Patient supposed to follow-up with the wound care center by Dr. Bahena. Has not been that at least on the last 2 visits. Also his colostomy bag was dislodged. His sacral decubitus wound has been deteriorating. Patient states he gets [facility] home care coming out. Apparently has not been taking it himself. He has a son living with him. Patient spiked a fever of 102 in the ER. October 26: Admitted with sepsis from infected decubitus ulcer. ID following for antibiotics. Plan for debridement of sacral ulcer on Tuesday by Dr Pabon. Patient tired. Resume home dose of [place]. Morphine. Resume home oral glycemic October 27: Patient getting IV Unasyn and IV daptomycin. Eating some. Rather sleepy/lethargic. Morphine was discontinued yesterday. Will cut back [place] to 7.5 every 6. Pending debridement on Tuesday10/29/2023 Patient seen this morning awake, alert and oriented being maintained on IV antibiotics in the form of Unasyn and daptomycin with infectious disease following. Blood cultures thus far negative and general surgery following as well with plans of surgical debridement of the decubitus ulcer. Await deep tissue culture finalization to determine discharge antibiotics. Blood sugars have been uncontrolled and will continue with Accu-Cheks before meals and at bedtime and adjust insulins accordingly. Continue local wound care. Patient is afebrile with no reports of chest pain or shortness of breath. Patient reporting his chronic back and leg pain requesting to increase his pain medicati ons. Patient takes a number of medications which have been adjusted as patient was lethargic previously and also continued on morphine. Will continue current regimen for now. Follow-up on repeat labs in the a.m. 10/30/2023 Patient is evaluated today in follow up. He is more awake alert. Remains on IV daptomycin and IV unasyn. ID following closely. He is scheduled to undergo surgical debridement of the sacral wound tomorrow. Wound vac in place. Renal function WNL. 10/31/2023 Patient evaluated in follow up today. Pending surgical debridement of his sacral wound. Deep tissue cultures ordered. Remains on IV unasyn and IV daptomycin. White blood cell count 8.0. He is on room air. His mentation continues to improve although he is requesting an increase in narcotics. 11/01/2023 Patient has underwent surgical debridement of his sacral ulcer. Wound vac in place with serosanguineous drainage. Difficult to seal due to location. Deep surgical cultures taken and pending. Continues on IV unasyn and IV daptomycin for now. He is complaining of increased pain to the wound. Narcotic were cut b ack due to altered mentation which has since improved. Hemodynamically he is stable. Review of Systems Constitutional: Denied any fatigue denied any fever. Cardio vascular: denied any chest pain, palpitations Gastrointestinal: denied any nausea, vomiting, diarrhea Pulmonary: Denied any shortness of breath cough Neurologic denied any new focal deficits All inpatient medications were reviewed and appropriate changes in these medications as dictated in the interval history and assessment and plan. Physical examination: GENERAL: This is a 63-year-old male who is awake, alert and oriented x 3, thin built, cachectic, elderly appearing, ill-appearing EYES: Pupils equal. Conjunctiva normal. HEENT: External appearance of nose and ears normal, NG tube to suction NECK: JVD not raised; masses not palpable. HEART: S1, S2 are muffled LUNGS: Diminished breath sounds bilaterally with no wheezing or rhonchi noted ABDOMEN: Soft, thin, scaphoid left-sided colostomy-brown stool noted PSYCH: Cooperative, slightly anxious MUSCULOSKELETAL: Left and right above-knee amputation. Sacral wound. NEUROLOGICAL: Moving all 4 limbs. Assessment: -Sepsis from infected chronic decubitus wound/sacrum: Blood cultures thus far negative and continued on IV antibiotics, post op day #1 surgical debridement. -Acute metabolic encephalopathy from recreational drugs as well as sepsis, present on admission, improving -Urine drug screen positive for methamphetamines, amphetamines, opiates, marijuana -Left and right above-knee amputation history -Sacral decubitus ulcer, stage IV. With prior history of acute osteomyelitis with sepsis, present on admission -Paroxysmal atrial fibrillation: Currently sinus rhythm -Diabetes mellitus type 2, insulin-dependent, uncontrolled with hyperglycemia -COPD in a current smoker, not in exacerbation -Continued ongoing nicotine dependence -Chronic medical debility. Non-ambulatory -GI prophylaxis: Lovenox -DVT prophylaxis -Full code Plan: Patient is continued on IV antibiotics in the form of daptomycin cultures thus far negative. Patient continues with significant decubitus ulcer with general surgery following pt has undergone wound debridement and deep tissue cultures are pending. ID following regarding antibiotic recommendations. Wound vac in place. Follow-up on repeat labs and replace electrolytes per protocol Continue monitoring Accu-Cheks ACHS and will adjust insulins accordingly Discussed with case management/social work regarding discharge planning once cultures have finalized to determine the need for IV antibiotic therapy and possible ECF The impression and plan of care has been dictated by Aisha Boswell, Nurse Practitioner as directed. Dr. Evelyn MD I have performed a history and physical examination and medical decision making of this patient, discussed the same with the dictator, and agree with the dictators assessment and plan as written, documented as a scribe. Based on total visit time, I have performed more than 50% of this visit. Objective - Vital Signs Vital signs: Vital Signs Temp 98.2 F 11/01/23 04:00 Pulse 76 11/01/23 11:31 Resp 16 11/01/23 11:31 BP 144/73 11/01/23 11:31 Pulse Ox 98 11/01/23 11:31 FiO2 Intake & Output 10/31/23 11/01/23 11/01/23 18:59 06:59 18:59 Intake Total 1260 180 Output Total 1605 1700 Balance -345 -1700 180 Weight 53.524 kg Intake: IV 900 Oral 360 180 Output: Urine 1600 1700 Estimated Blood Loss 5 Other: Voiding Method Indwelling Catheter Indwelling Catheter Indwelling Catheter - Labs CBC & Chem 7: 10/31/23 08:12 10/31/23 08:12 Labs: Abnormal Lab Results - Last 24 Hours (Table) 10/31/23 10/31/23 11/01/23 Range/Units 16:07 19:42 06:15 POC Glucose (mg/dL) 153 H 240 H 206 H (70-110) mg/dL 11/01/23 Range/Units 11:40 POC Glucose (mg/dL) 149 H (70-110) mg/dL Microbiology - Last 24 Hours (Table) 10/26/23 17:50 Blood Culture - Final Blood 10/26/23 17:35 Blood Culture - Final Blood Assessment and Plan Time with Patient: Less than 30
[2023-11-01] MEDS: HYDROmorphone 0.5 MG/0.5 ML SYRINGE IVP PRN (12:18)
[2023-11-01 13:35] LABS: Basophils # (A) 0.1 k/uL (0-0.2); Basophils % (A) 1 %; Eosinophils # (A) 0.7 k/uL (0-0.7); Eosinophils % (A) 9 %; HGB 10.2 gm/dL (13.0-17.5); Hypochromasia Moderate; Lymphocytes # (A) 1.6 k/uL (1.0-4.8); Lymphocytes % (A) 20 %; MCH 25.7 pg (25.0-35.0); MCHC 30.1 g/dL (31.0-37.0); MCV 85.3 fL (80.0-100.0); Monocytes # (A) 0.4 k/uL (0-1.0); Monocytes % (A) 4 %; Neutrophils # (A) 5.1 k/uL (1.3-7.7); Neutrophils % (A) 64 %; Platelet Count 413 k/uL (150-450); RBC 3.99 m/uL (4.30-5.90); RDW 13.9 % (11.5-15.5)
[2023-11-01 13:46] LABS: African American GFR (CKD) >90 (>60 ml/min/1.73 sqM); Anion Gap 1 mmol/L; Blood Urea Nitrogen 11 mg/dL (9-20); Calcium 8.2 mg/dL (8.4-10.2); Carbon Dioxide 31 mmol/L (22-30); Chloride 105 mmol/L (98-107); Glucose 131 mg/dL (74-99); Non-African American GFR(CKD) >90 (>60 ml/min/1.73 sqM); Potassium 5.1 mmol/L (3.5-5.1); Sodium 137 mmol/L (137-145)
[2023-11-01 16:12] LABS: Glucose,Whole Blood 163 mg/dL (70-110)
[2023-11-01 20:03] LABS: Glucose,Whole Blood 110 mg/dL (70-110)
[2023-11-01 22:54] LABS: Glucose,Whole Blood 229 mg/dL (70-110)
[2023-11-02 07:00] LABS: Glucose,Whole Blood 133 mg/dL (70-110)
[2023-11-02 11:59] LABS: Glucose,Whole Blood 261 mg/dL (70-110)
--- NOTE | 2023-11-02 12:44 | P.PN ---
Subjective Progress Note Date: 11/02/23 CHIEF COMPLAINT: Sacral decubitus ulcers HISTORY OF PRESENT ILLNESS: Patient is postop day #2 status post debridement of sacral decubitus ulcer. Pain controlled. Denies any nausea or vomiting. Afebrile. Wound VAC is currently not sealed. And wound VAC is to be changed today. PHYSICAL EXAM: VITAL SIGNS: Reviewed. GENERAL: no acute distress. ABDOMEN: Soft. Nondistended. Nontender. ASSESSMENT: 1. Stage IV sacral decubitus ulcers 2. Sepsis present on admission PLAN: -Wound VAC to be changed today -Antibiotics per infectious disease Physician Aircraft Engine Mechanic Overhaul note has been reviewed by physician. Signing provider agrees with the documented findings, assessment, and plan of care. Objective - Vital Signs Vital signs: Vital Signs Temp 98.3 F 11/02/23 11:57 Pulse 78 11/02/23 11:57 Resp 16 11/02/23 11:57 BP 119/68 11/02/23 11:57 Pulse Ox 98 11/02/23 11:57 FiO2 Intake & Output 11/01/23 11/02/23 11/02/23 18:59 06:59 18:59 Intake Total 330 1550 Output Total 1850 2550 650 Balance -1520 -1000 -650 Intake: Intake, IV Titration 750 Amount Ampicillin-Sulbactam 3 gm 200 In Sodium Chloride 0.9% 100 ml @ 200 mls/hr IVPB Q6HR [facility] Rx#:[id number] DAPTOmycin 300 mg In 50 Sodium Chloride 0.9% 50 ml @ 100 mls/hr IVPB Q24H [facility] Rx#:[id number] Lactated Ringers 1,000 ml 500 @ 50 mls/hr IV .Q20H [facility] Rx#:[id number] Oral 330 800 Output: Drainage 300 Bilateral Buttock 300 Urine 1850 2250 650 Other: Voiding Method Indwelling Catheter # Bowel Movements 1 1 - Labs CBC & Chem 7: 11/01/23 12:46 11/01/23 12:46 Labs: Abnormal Lab Results - Last 24 Hours (Table) 11/01/23 11/01/23 11/01/23 Range/Units 12:46 12:46 16:09 RBC 3.99 L (4.30-5.90) m/uL Hgb 10.2 L (13.0-17.5) gm/dL Hct 34.0 L (39.0-53.0) % MCHC 30.1 L (31.0-37.0) g/dL Carbon Dioxide 31 H (22-30) mmol/L Creatinine 0.50 L (0.66-1.25) mg/dL Glucose 131 H (74-99) mg/dL POC Glucose (mg/dL) 163 H (70-110) mg/dL Calcium 8.2 L (8.4-10.2) mg/dL 11/01/23 11/02/23 11/02/23 Range/Units 22:43 06:59 11:58 RBC (4.30-5.90) m/uL Hgb (13.0-17.5) gm/dL Hct (39.0-53.0) % MCHC (31.0-37.0) g/dL Carbon Dioxide (22-30) mmol/L Creatinine (0.66-1.25) mg/dL Glucose (74-99) mg/dL POC Glucose (mg/dL) 229 H 133 H 261 H (70-110) mg/dL Calcium (8.4-10.2) mg/dL
--- NOTE | 2023-11-02 15:26 | CDI ---
Documentation Clarification Form Date: 11/02/2023 02:53:14 PM From: Luli Toney RN CCDS Phone: [phone] Admit Date: 10/26/2023 07:00:00 PM Patient Name: Misael Langley Visit Number: [id number] Discharge Date: ATTENTION: The Clinical Documentation Specialists (CDI) and [facility] Coding Staff appreciate your assistance in clarifying documentation. Please respond to the clarification below the line at the bottom and electronically sign. The CDI & [facility] Coding staff will review the response and follow-up if needed. Please note: Queries are made part of the Legal Health Record. If you have any questions, please contact the author of this message via ITS. Dr. Neal Pabon A debridement is documented 10/30, Procedure note. Additional clarification regarding the procedure is requested. History/Risk Factors: 63-year old male presents to the ED from wound care for worsening sacral decubitus wound. Medical History: DM, Right BKA, Left AKA, COPD and right and left buttock pressure ulcers. 10/25, Clinical Indicators: Procedure performed: Debridement of sacral decubitus ulcer. There was a small amount of necrotic skin and fat on the sacral decubitus ulcer. This was sharply divided. With a 15 blade. Left cautery. Treatment: Debridement and wound vac. Please clarify the type of procedure performed: [ xx] Excisional debridement (the removal of necrotic, devitalized tissue or slough by means of cutting away of tissue) [ ] Non-excisional debridement (the removal of necrotic, devitalized tissue or slough by means of flushing, brushing, or washing. (Irrigation) [ ] Other; please specify [ ] Unable to determine Five elements required for accurate and compliant documentation of a debridement: Technique used (e.g., excisional, excised, cutting, brushing, jet lavage etc.) Instrument(s) used (e.g., scalpel, curette, etc.) Nature of the tissue removed (e.g., necrotic, devitalized tissues, non-viable tissue, etc.) Appearance and size of the wound (e.g., down to fresh bleeding tissue, 7cm x 10cm, etc.) Depth of the debridement* (e.g., skin, subcutaneous tissue, fascia, muscle, bone, etc.) (Template Last Revised: July 2020) MTDD
[2023-11-02 17:07] LABS: Glucose,Whole Blood 150 mg/dL (70-110)
--- NOTE | 2023-11-02 17:34 | P.PN ---
Subjective Progress Note Date: 10/30/23 Principal diagnosis: Reason for follow-up is sepsis and infected pressure ulcer Patient is a 63-year-old male past medical history significant for diabetes mellitus patient did have a history of pressure ulcer to the sacral and bilateral gluteal area for the patient did have a diverting colostomy to help heal these wounds, admitted to hospital with worsening wound did have a fever elevated white count concerning for sepsis related to his infected wound. On today's evaluation that is 10/30/2023, patient has been afebrile, patient is breathing comfortably and is currently on room air, patient denies having any significant cough no chest pain shortness of breath, patient denies nausea vomiting or diarrhea and no abdominal pain patient been asking for more pain m edication the. Patient white count is 8.0, creatinine 0.40 Objective - Vital Signs Vital signs: Vital Signs Temp 98.3 F 10/30/23 16:00 Pulse 70 10/30/23 16:00 Resp 16 10/30/23 16:00 BP 121/70 10/30/23 16:00 Pulse Ox 99 10/30/23 16:00 FiO2 Intake & Output 10/29/23 10/30/23 10/30/23 18:59 06:59 18:59 Intake Total 1416 358 Output Total 047 859 3540 Balance 841 -942 -6488 Intake: Intake, IV Titration 700 Amount Ampicillin-Sulbactam 3 gm 100 In Sodium Chloride 0.9% 100 ml @ 200 mls/hr IVPB Q6HR [facility] Rx#:[id number] Lactated Ringers 1,000 ml 600 @ 50 mls/hr IV .Q20H [facility] Rx#:[id number] Oral 716 358 Output: Urine 965 115 9850 Stool 200 200 Other: Voiding Method Indwelling Catheter Indwelling Catheter Indwelling Catheter - Exam GENERAL DESCRIPTION: Middle-age male lying in bed in no distress RESPIRATORY SYSTEM: Unlabored breathing , decreased breath sounds at bases HEART: S1 S2 regular rate and rhythm , ABDOMEN: Soft , no tenderness Wound is currently covered with a wound VAC - Labs CBC & Chem 7: 11/01/23 12:46 11/01/23 12:46 Labs: Abnormal Lab Results - Last 24 Hours (Table) 10/29/23 10/29/23 10/30/23 Range/Units 16:43 21:16 05:46 RBC 4.07 L (4.30-5.90) m/uL Hgb 10.5 L (13.0-17.5) gm/dL Hct 34.7 L (39.0-53.0) % MCHC 30.4 L (31.0-37.0) g/dL Plt Count 461 H (150-450) k/uL Chloride (98-107) mmol/L BUN (9-20) mg/dL Creatinine (0.66-1.25) mg/dL POC Glucose (mg/dL) 256 H 273 H (70-110) mg/dL Calcium (8.4-10.2) mg/dL 10/30/23 10/30/23 10/30/23 Range/Units 05:46 12:04 16:25 RBC (4.30-5.90) m/uL Hgb (13.0-17.5) gm/dL Hct (39.0-53.0) % MCHC (31.0-37.0) g/dL Plt Count (150-450) k/uL Chloride 110 H (98-107) mmol/L BUN 8 L (9-20) mg/dL Creatinine 0.40 L (0.66-1.25) mg/dL POC Glucose (mg/dL) 169 H 204 H (70-110) mg/dL Calcium 8.1 L (8.4-10.2) mg/dL Microbiology - Last 24 Hours (Table) 10/26/23 17:50 Blood Culture - Preliminary Blood 10/26/23 17:35 Blood Culture - Preliminary Blood Assessment and Plan (1) Sacral decubitus ulcer, stage IV Current Visit: Yes Status: Acute Code(s): L89.154 - PRESSURE ULCER OF SACRAL REGION, STAGE 4 SNOMED Code(s): 18066714178876 (2) Sepsis Current Visit: Yes Status: Acute Code(s): A41.9 - SEPSIS, UNSPECIFIED ORGANISM SNOMED Code(s): 15549498 (3) Stage III pressure ulcer of left buttock Current Visit: Yes Status: Acute Code(s): L89.323 - PRESSURE ULCER OF LEFT BUTTOCK, STAGE 3 SNOMED Code(s): 00628266558148 (4) Stage III pressure ulcer of right buttock Current Visit: Yes Status: Acute Code(s): L89.313 - PRESSURE ULCER OF RIGHT BUTTOCK, STAGE 3 SNOMED Code(s): 45131240485745 Plan: 1patient presented to hospital with sepsis in this patient who did have fever tachycardia elevated white count source is infected pressure ulcer as the patient was noted to have significant purulent drainage from the right gluteal pressure area 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 please excuse any grammatical, word or spelling errors. Time with Patient: Less than 30
--- NOTE | 2023-11-02 17:35 | P.PN ---
Subjective Progress Note Date: 10/31/23 Principal diagnosis: Reason for follow-up is sepsis and infected pressure ulcer Patient is a 63-year-old male past medical history significant for diabetes mellitus patient did have a history of pressure ulcer to the sacral and bilateral gluteal area for the patient did have a diverting colostomy to help heal these wounds, admitted to hospital with worsening wound did have a fever elevated white count concerning for sepsis related to his infected wound.Patient is status post surgical debridement of his wound by general surgery on 10/31/2023 mention no significant purulence On today's evaluation that is 10/31/2023,the patient denies any fever or any chills, patient is breathing comfortably on room air, the patient denies chest pain shortness of breath and no significant cough, patient denies abdominal pain, no nausea vomiting or diarrhea. Patient white count is normal at 8.0, creatinine 0.43 blood culture has been negative Objective - Vital Signs Vital signs: Vital Signs Temp 98.0 F 10/31/23 11:54 Pulse 85 10/31/23 13:59 Resp 20 10/31/23 13:59 BP 150/63 10/31/23 12:39 Pulse Ox 97 10/31/23 12:39 FiO2 Intake & Output 10/30/23 10/31/23 10/31/23 18:59 06:59 18:59 Intake Total 207 187 2840 Output Total 2000 1550 1605 Balance -1524 -1350 -525 Intake: IV 900 Intake, IV Titration 200 Amount Ampicillin-Sulbactam 3 gm 200 In Sodium Chloride 0.9% 100 ml @ 200 mls/hr IVPB Q6HR [facility] OF [facility] Rx#:[id number] Oral 476 180 Output: Urine 1800 1550 1600 Stool 200 Estimated Blood Loss 5 Other: Voiding Method Indwelling Catheter Indwelling Catheter Indwelling Catheter - Exam GENERAL DESCRIPTION: Middle-age male lying in bed in no distress RESPIRATORY SYSTEM: Unlabored breathing , decreased breath sounds at bases HEART: S1 S2 regular rate and rhythm , ABDOMEN: Soft , no tenderness Wound is currently covered with a wound VAC - Labs CBC & Chem 7: 11/01/23 12:46 11/01/23 12:46 Labs: Abnormal Lab Results - Last 24 Hours (Table) 10/30/23 10/30/23 10/31/23 Range/Units 16:25 20:08 06:18 RBC (4.30-5.90) m/uL Hgb (13.0-17.5) gm/dL Hct (39.0-53.0) % MCHC (31.0-37.0) g/dL Chloride (98-107) mmol/L Creatinine (0.66-1.25) mg/dL Glucose (74-99) mg/dL POC Glucose (mg/dL) 204 H 209 H 146 H (70-110) mg/dL Calcium (8.4-10.2) mg/dL 10/31/23 10/31/23 Range/Units 08:12 08:12 RBC 3.88 L (4.30-5.90) m/uL Hgb 10.0 L (13.0-17.5) gm/dL Hct 32.9 L (39.0-53.0) % MCHC 30.5 L (31.0-37.0) g/dL Chloride 109 H (98-107) mmol/L Creatinine 0.43 L (0.66-1.25) mg/dL Glucose 106 H (74-99) mg/dL POC Glucose (mg/dL) (70-110) mg/dL Calcium 8.0 L (8.4-10.2) mg/dL Assessment and Plan (1) Sacral decubitus ulcer, stage IV Current Visit: Yes Status: Acute Code(s): L89.154 - PRESSURE ULCER OF SACRAL REGION, STAGE 4 SNOMED Code(s): 59711600000649 (2) Sepsis Current Visit: Yes Status: Acute Code(s): A41.9 - SEPSIS, UNSPECIFIED ORGANISM SNOMED Code(s): 19530663 (3) Stage III pressure ulcer of left buttock Current Visit: Yes Status: Acute Code(s): L89.323 - PRESSURE ULCER OF LEFT BUTTOCK, STAGE 3 SNOMED Code(s): 58814046657246 (4) Stage III pressure ulcer of right buttock Current Visit: Yes Status: Acute Code(s): L89.313 - PRESSURE ULCER OF RIGHT BUTTOCK, STAGE 3 SNOMED Code(s): 51654666661877 Plan: 1patient presented to hospital with sepsis in this patient who did have fever tachycardia elevated white count source is infected pressure ulcer as the patient was noted to have significant purulent drainage from the right gluteal pressure area 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 please excuse any grammatical, word or spelling errors.
--- NOTE | 2023-11-02 17:35 | P.PN ---
Subjective Progress Note Date: 11/01/23 Principal diagnosis: Reason for follow-up is sepsis and infected pressure ulcer Patient is a 63-year-old male past medical history significant for diabetes mellitus patient did have a history of pressure ulcer to the sacral and bilateral gluteal area for the patient did have a diverting colostomy to help heal these wounds, admitted to hospital with worsening wound did have a fever elevated white count concerning for sepsis related to his infected wound.Patient is status post surgical debridement of his wound by general surgery on 10/31/2023 mention no significant purulence On today's evaluation that is 11/01/2023,the patient remains to be afebrile, patient is on room air not requiring supplemental oxygen and denies any shortness of breath no chest pain or cough.Patient denies having any nausea or vomiting, no abdominal pain and did have output in his colostomy still complaining of some back pain and wants more pain medication. Patient white count is 8.0, creatinine 0.50 Objective - Vital Signs Vital signs: Vital Signs Temp 98.2 F 11/01/23 04:00 Pulse 76 11/01/23 11:31 Resp 16 11/01/23 11:31 BP 144/73 11/01/23 11:31 Pulse Ox 98 11/01/23 11:31 FiO2 Intake & Output 10/31/23 11/01/23 11/01/23 18:59 06:59 18:59 Intake Total 1260 180 Output Total 1605 1700 1200 Balance -345 -1700 -1020 Weight 53.524 kg Intake: IV 900 Oral 360 180 Output: Urine 1600 1700 1200 Estimated Blood Loss 5 Other: Voiding Method Indwelling Catheter Indwelling Catheter Indwelling Catheter # Bowel Movements 1 - Exam GENERAL DESCRIPTION: Middle-age male lying in bed in no distress RESPIRATORY SYSTEM: Unlabored breathing , decreased breath sounds at bases HEART: S1 S2 regular rate and rhythm , ABDOMEN: Soft , no tenderness Wound is currently covered with a wound VAC - Labs CBC & Chem 7: 11/01/23 12:46 11/01/23 12:46 Labs: Abnormal Lab Results - Last 24 Hours (Table) 10/31/23 10/31/23 11/01/23 Range/Units 16:07 19:42 06:15 POC Glucose (mg/dL) 153 H 240 H 206 H (70-110) mg/dL 11/01/23 Range/Units 11:40 POC Glucose (mg/dL) 149 H (70-110) mg/dL Microbiology - Last 24 Hours (Table) 10/26/23 17:50 Blood Culture - Final Blood 10/26/23 17:35 Blood Culture - Final Blood Assessment and Plan (1) Sacral decubitus ulcer, stage IV Current Visit: Yes Status: Acute Code(s): L89.154 - PRESSURE ULCER OF SACRAL REGION, STAGE 4 SNOMED Code(s): 96518901971673 (2) Sepsis Current Visit: Yes Status: Acute Code(s): A41.9 - SEPSIS, UNSPECIFIED ORGANISM SNOMED Code(s): 24964718 (3) Stage III pressure ulcer of left buttock Current Visit: Yes Status: Acute Code(s): L89.323 - PRESSURE ULCER OF LEFT BUTTOCK, STAGE 3 SNOMED Code(s): 17275607736303 (4) Stage III pressure ulcer of right buttock Current Visit: Yes Status: Acute Code(s): L89.313 - PRESSURE ULCER OF RIGHT BUTTOCK, STAGE 3 SNOMED Code(s): 31526392335845 Plan: 1patient presented to hospital with sepsis in this patient who did have fever tachycardia elevated white count source is infected pressure ulcer as the patient was noted to have significant purulent drainage from the right gluteal pressure area 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 please excuse any grammatical, word or spelling errors.
--- NOTE | 2023-11-02 17:36 | P.PN ---
Subjective Progress Note Date: 11/02/23 Principal diagnosis: Reason for follow-up is sepsis and infected pressure ulcer Patient is a 63-year-old male past medical history significant for diabetes mellitus patient did have a history of pressure ulcer to the sacral and bilateral gluteal area for the patient did have a diverting colostomy to help heal these wounds, admitted to hospital with worsening wound did have a fever elevated white count concerning for sepsis related to his infected wound.Patient is status post surgical debridement of his wound by general surgery on 10/31/2023 mention no significant purulence On today's evaluation that is 11/02/2023, the patient continues to be afebrile, the patient is on room air and breathing comfortably, the Pt denies having any chest pain or cough, the patient denies having any abdominal pain no vomiting, did have output in his colostomy bag no worsening output reported. No new diet has been repeated today blood culture has been negative Objective - Vital Signs Vital signs: Vital Signs Temp 97.9 F 11/02/23 06:56 Pulse 71 11/02/23 06:56 Resp 16 11/02/23 06:56 BP 112/66 11/02/23 06:56 Pulse Ox 99 11/02/23 06:56 FiO2 Intake & Output 11/01/23 11/02/23 11/02/23 18:59 06:59 18:59 Intake Total 330 1550 Output Total 1850 2550 650 Balance -1520 -1000 -650 Intake: Intake, IV Titration 750 Amount Ampicillin-Sulbactam 3 gm 200 In Sodium Chloride 0.9% 100 ml @ 200 mls/hr IVPB Q6HR [facility] Rx#:[id number] DAPTOmycin 300 mg In 50 Sodium Chloride 0.9% 50 ml @ 100 mls/hr IVPB Q24H [facility] Rx#:[id number] Lactated Ringers 1,000 ml 500 @ 50 mls/hr IV .Q20H [facility] Rx#:[id number] Oral 330 800 Output: Drainage 300 Bilateral Buttock 300 Urine 1850 2250 650 Other: Voiding Method Indwelling Catheter # Bowel Movements 1 1 - Exam GENERAL DESCRIPTION: Middle-age male lying in bed in no distress RESPIRATORY SYSTEM: Unlabored breathing , decreased breath sounds at bases HEART: S1 S2 regular rate and rhythm , ABDOMEN: Soft , no tenderness Wound is currently covered with a wound VAC - Labs CBC & Chem 7: 11/01/23 12:46 11/01/23 12:46 Labs: Abnormal Lab Results - Last 24 Hours (Table) 11/01/23 11/01/23 11/01/23 Range/Units 12:46 12:46 16:09 RBC 3.99 L (4.30-5.90) m/uL Hgb 10.2 L (13.0-17.5) gm/dL Hct 34.0 L (39.0-53.0) % MCHC 30.1 L (31.0-37.0) g/dL Carbon Dioxide 31 H (22-30) mmol/L Creatinine 0.50 L (0.66-1.25) mg/dL Glucose 131 H (74-99) mg/dL POC Glucose (mg/dL) 163 H (70-110) mg/dL Calcium 8.2 L (8.4-10.2) mg/dL 11/01/23 11/02/23 11/02/23 Range/Units 22:43 06:59 11:58 RBC (4.30-5.90) m/uL Hgb (13.0-17.5) gm/dL Hct (39.0-53.0) % MCHC (31.0-37.0) g/dL Carbon Dioxide (22-30) mmol/L Creatinine (0.66-1.25) mg/dL Glucose (74-99) mg/dL POC Glucose (mg/dL) 229 H 133 H 261 H (70-110) mg/dL Calcium (8.4-10.2) mg/dL Assessment and Plan (1) Sacral decubitus ulcer, stage IV Current Visit: Yes Status: Acute Code(s): L89.154 - PRESSURE ULCER OF SACRAL REGION, STAGE 4 SNOMED Code(s): 12965721167924 (2) Sepsis Current Visit: Yes Status: Acute Code(s): A41.9 - SEPSIS, UNSPECIFIED ORGANISM SNOMED Code(s): 99335170 (3) Stage III pressure ulcer of left buttock Current Visit: Yes Status: Acute Code(s): L89.323 - PRESSURE ULCER OF LEFT BUTTOCK, STAGE 3 SNOMED Code(s): 39246871886436 (4) Stage III pressure ulcer of right buttock Current Visit: Yes Status: Acute Code(s): L89.313 - PRESSURE ULCER OF RIGHT BUTTOCK, STAGE 3 SNOMED Code(s): 51814192080566 Plan: 1patient presented to hospital with sepsis in this patient who did have fever tachycardia elevated white count source is infected pressure ulcer as the patient was noted to have significant purulent drainage from the right gluteal pressure area 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 2-patient has been eval by general surgery and is s/p surgical debridement, no cultures were done, blood culture has been negative so far 3-CT of the sacral area did not show any bony destruction or abscess 4-patient did have resolution of his fever and the patient white count has normalized culture has been negative so far we 5-keeping in mind the overall septic presentation to the hospital with fever leukocytosis we will get a PICC line and get a 4-week course of IV Unasyn on discharge this was discussed with the admitting team Dictation was produced using [employer] dictation software. please excuse any grammatical, word or spelling errors. Time with Patient: Less than 30
--- NOTE | 2023-11-02 18:54 | P.PN ---
Progress Note - Text Progress Note Date: 11/02/23 Chief Complaint: Not taking care of himself This is a 63-year-old patient, follows with Dr. Mendez. Chronic stable medical conditions include ADHD, herniated disc lower back, smoker. Sacral wounds. Left AKA. right above-knee amputation by Dr. Zee on April 2023 Has been known to, not being compliant. Smoking cigarettes. Recreational drugs. Diverting colostomy with Dr Pabon Patient supposed to follow-up with the wound care center by Dr. Bahena. Has not been that at least on the last 2 visits. Also his colostomy bag was dislodged. His sacral decubitus wound has been deteriorating. Patient states he gets [facility] home care coming out. Apparently has not been taking it himself. He has a son living with him. Patient spiked a fever of 102 in the ER. October 26: Admitted with sepsis from infected decubitus ulcer. ID following for antibiotics. Plan for debridement of sacral ulcer on Tuesday by Dr Pabon. Patient tired. Resume home dose of [place]. Morphine. Resume home oral glycemic October 27: Patient getting IV Unasyn and IV daptomycin. Eating some. Rather sleepy/lethargic. Morphine was discontinued yesterday. Will cut back [place] to 7.5 every 6. Pending debridement on Tuesday10/29/2023 Patient seen this morning awake, alert and oriented being maintained on IV antibiotics in the form of Unasyn and daptomycin with infectious disease following. Blood cultures thus far negative and general surgery following as well with plans of surgical debridement of the decubitus ulcer. Await deep tissue culture finalization to determine discharge antibiotics. Blood sugars have been uncontrolled and will continue with Accu-Cheks before meals and at bedtime and adjust insulins accordingly. Continue local wound care. Patient is afebrile with no reports of chest pain or shortness of breath. Patient reporting his chronic back and leg pain requesting to increase his pain medications. Patient takes a number of medications which have been adjusted as patient was lethargic previously and also continued on morphine. Will continue current regimen for now. Follow-up on repeat labs in the a.m. 10/30/2023 Patient is evaluated today in follow up. He is more awake alert. Remains on IV daptomycin and IV unasyn. ID following closely. He is scheduled to undergo surgical debridement of the sacral wound tomorrow. Wound vac in place. Renal function WNL. 10/31/2023 Patient evaluated in follow up today. Pending surgical debridement of his sacral wound. Deep tissue cultures ordered. Remains on IV unasyn and IV daptomycin. White blood cell count 8.0. He is on room air. His mentation continues to improve although he is requesting an increase in narcotics. 11/01/2023 Patient has underwent surgical debridement of his sacral ulcer. Wound vac in place with serosanguineous drainage. Difficult to seal due to location. Deep surgical cultures taken and pending. Continues on IV unasyn and IV daptomycin for now. He is complaining of increased pain to the wound. Narcotic were cut back due to altered mentation which has since improved. Hemodynamically he is stable. November 02, 2023: Patient status post surgical debridement of the sacral wound. Wound VAC in place. Eating well. Discussed with ID plan for discharge tomorrow after PICC line and IV antibiotics will probably go to ECF. Active Medications Acetaminophen (Acetaminophen Tab 325 Mg Tab) 650 mg PO Q6HR PRN PRN Reason: Mild Pain or Fever > 100.5 Last Admin: 10/31/23 20:18 Dose: 650 mg Hydrocodone Bitart/Acetaminophen (Hydrocodone/Apap 7.5-325mg 1 Each Tab) 1 each PO Q6HR PRN PRN Reason: Pain Last Admin: 11/02/23 18:01 Dose: 1 each Amiodarone HCl (Amiodarone 200 Mg Tab) 200 mg PO DAILY [facility] Last Admin: 11/02/23 09:35 Dose: 200 mg Calcium Carbonate/Glycine (Calcium Carbonate 500 Mg Chewable) 1,000 mg PO Q4HR PRN PRN Reason: Dyspepsia Dextrose/Water (Dextrose 50% Syringe 50 Ml) 25 ml IVP PER PROTOCOL PRN; Protocol PRN Reason: Hypoglycemia Dextrose/Water (Dextrose 50% Syringe 50 Ml) 50 ml IVP PER PROTOCOL PRN; Protocol PRN Reason: Hypoglycemia Enoxaparin Sodium (Enoxaparin 40 Mg/0.4 Ml Syringe) 40 mg SQ DAILY [facility] Last Admin: 11/02/23 09:35 Dose: 40 mg Gabapentin (Gabapentin 300 Mg Cap) 300 mg PO TID [facility] Last Admin: 11/02/23 15:47 Dose: 300 mg Hydromorphone HCl (Hydromorphone 0.5 Mg/0.5 Ml Syringe) 0.5 mg IVP Q6HR PRN PRN Reason: Pain Last Admin: 11/02/23 13:16 Dose: 0.5 mg Ampicillin Sodium/Sulbactam (Sodium 3 gm/ Sodium Chloride) 100 mls @ 200 mls/hr IVPB Q6HR [facility]; Protocol Last Admin: 11/02/23 17:54 Dose: 200 mls/hr Lactated Ringer's (Lactated Ringers) 1,000 mls @ 50 mls/hr IV .Q20H [facility] Last Admin: 11/02/23 13:16 Dose: 50 mls/hr Insulin Aspart (Insulin Aspart (Novolog) 100 Unit/Ml Vial) 0 unit SQ ACHS [facility]; Protocol Last Admin: 11/02/23 17:26 Dose: Not Given Insulin Detemir (Insulin Detemir (Levemir) 100 Unit/Ml Syr) 12 unit SQ HS [facility] Last Admin: 11/01/23 20:41 Dose: Not Given Lactulose (Lactulose 20 Gm/30 Ml Cup) 20 gm PO DAILY PRN PRN Reason: Constipation Last Admin: 10/28/23 15:42 Dose: 20 gm Linagliptin (Linagliptin 5 Mg Tablet) 5 mg PO DAILY [facility] Last Admin: 11/02/23 10:10 Dose: 5 mg Lorazepam (Lorazepam 0.5 Mg Tab) 0.5 mg PO Q6HR PRN PRN Reason: Anxiety Last Admin: 11/01/23 22:56 Dose: 0.5 mg Methocarbamol (Methocarbamol 500 Mg Tab) 500 mg PO QID [facility] Last Admin: 11/02/23 17:54 Dose: 500 mg Naloxone HCl (Naloxone 0.4 Mg/Ml 1 Ml Vial) 0.2 mg IV Q2M PRN PRN Reason: Opioid Reversal Naproxen (Naproxen 250 Mg Tab) 250 mg PO TID [facility] Last Admin: 11/02/23 15:47 Dose: 250 mg Ondansetron HCl (Ondansetron 4 Mg/2 Ml Vial) 4 mg IVP Q8HR PRN PRN Reason: Nausea And Vomiting Last Admin: 10/31/23 10:48 Dose: 4 mg Tamsulosin HCl (Tamsulosin 0.4 Mg Cap.Er.24h) 0.4 mg PO DAILY [facility] Last Admin: 11/02/23 09:36 Dose: 0.4 mg Temazepam (Temazepam 15 Mg Cap) 15 mg PO HS [facility] Last Admin: 11/01/23 20:39 Dose: 15 mg Past medical history to include: Diabetes, possible ADHD, chronic low back pain, herniated disc, atrial fibri llation. COPD. left above-knee amputation. Right below-knee amputation. Sacral wound Social history: Son lives with the patient. 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 Smokes about a pack a day, now down to a few cigarettes a day. Alcohol occasionally. Marijuana Physical examination: VITAL SIGNS: 98.4, 86, 16, 1 one 9 x 68, 98% room air GENERAL: Laying in bed, appears comfortable comfortable EYES: Pupils equal. Conjunctiva normal. HEENT: External appearance of nose and ears normal, NG tube to suction NECK: JVD not raised; masses not palpable. HEART: First and second heart sounds are normal; no edema. LUNGS: Respiratory rate increased l; decreased breath sounds. ABDOMEN: Soft, left-sided colostomy-back PSYCH: Sleepy but able to answer questions appropriately MUSCULOSKELETAL: Left and right above-knee amputation, incisions with rosetta healing well. Sacral wound. NEUROLOGICAL: Moving all 4 limbs. INVESTIGATIONS, reviewed in the clinical context: October 31: White count 8 hemoglobin 10.2 platelets 413 potassium 5.1 creatinine 0.5 October 27: White count 9.9 hemoglobin 10 platelets 535 October 26: White count 12.8 hemoglobin 10.9 potassium 4.7 creatinine 0.32 October 26, 2023: White count 16.1 hemoglobin 12.3 platelets 667 sodium 135 potassium 4.6 BUN 10 creatinine 0.4 lactic acid 3.3 Urine drug screen positive for opiates, amphetamines, methamphetamines, marijuana Influenza type A, B, RSV, COVID-19 not detected EKG tracing personally reviewed by me-normal sinus rhythm Chest x-ray film personally reviewed by me-hyperinflation Assessment and plan: -Sepsis from infected chronic decubitus wound/sacrum: Improving ID: IV Unasyn IV daptomycin -Some metabolic encephalopathy from recreational drugs. And sepsis: Much improved -Urine drug screen positive for methamphetamines, amphetamines, opiates, marijuana -Left and right above-knee amputation -Sacral decubitus ulcer, stage IV. With prior history of acute osteomyelitis.: Causing sepsis ID following Dr Pabon-carried out debridement on October 30 -Paroxysmal atrial fibrillation: sinus rhythm Amiodarone. Lopressor. -Diabetes mellitus type 2, chronically on insulin Levemir. Follow Accu-Cheks sliding scale Januvia -COPD in a current smoker Bronchodilators as needed -Chronic nicotine dependence, cigarette smoker Nicotine patch -Chronic medical debility. Non-ambulatory -Full code Discussed with ID. Discharged with IV antibiotics probably ECF Past Medical History Past Medical History: Diabetes Mellitus Additional Past Medical History / Comment(s): pressure ulcers[Buttock,simone heals ,rt lateral foot]. BLOOD "ECOLI" INFECTION. History of Any Multi-Drug Resistant Organisms: None Reported Past Surgical History: Orthopedic Surgery Additional Past Surgical History / Comment(s): back pain son states pt recently "slipped a disc" taking gabapentin. Left leg above the knee amputation. RLE AKA. MICHELLE PICC LINE. Past Anesthesia/Blood Transfusion Reactions: No Reported Reaction Past Psychological History: No Psychological Hx Reported Smoking Status: Current every day smoker Past Alcohol Use History: Rare Past Drug Use History: None Reported
[2023-11-02 20:12] LABS: Glucose,Whole Blood 142 mg/dL (70-110)
[2023-11-03 07:23] LABS: Glucose,Whole Blood 81 mg/dL (70-110)
--- NOTE | 2023-11-03 10:09 | XR ---
EXAMINATION TYPE: XR chest 1V DATE OF EXAM: 11/03/2023 9:43 AM CLINICAL INDICATION:Male, 63 years old with history of For placement of PICC line; [facility] COMPARISON: Chest radiographs from 10/26/2023 TECHNIQUE: XR chest 1V Frontal view of the chest. FINDINGS: Lungs/Pleura: There is no evidence of pleural effusion, focal consolidation, or pneumothorax. Pulmonary vascularity: Unremarkable. Heart/mediastinum: Cardiomediastinal silhouette is unremarkable. Musculoskeletal: No acute osseous pathology. Other findings: None Lines/Tubes: Left-sided PICC with distal tip at the superior vena cava/brachiocephalic confluence. IMPRESSION: 1. Left PICC in appropriate position. 2. No acute cardiopulmonary disease/process.
[2023-11-03 11:29] LABS: Glucose,Whole Blood 137 mg/dL (70-110)
--- NOTE | 2023-11-03 13:31 | P.PN ---
Subjective Progress Note Date: 11/03/23 CHIEF COMPLAINT: Sacral decubitus ulcers HISTORY OF PRESENT ILLNESS: Patient is postop day #3 status post debridement of sacral decubitus ulcer. Pain controlled. Patient has wound VAC in place. Patient getting PICC line today for IV antibiotics. Afebrile. PHYSICAL EXAM: VITAL SIGNS: Reviewed. GENERAL: no acute distress. ABDOMEN: Soft. Nondistended. Nontender. ASSESSMENT: 1. Stage IV sacral decubitus ulcers 2. Sepsis present on admission PLAN: -Continue wound VAC -Patient can be discharged from surgical standpoint when medically cleared -Antibiotics per infectious disease Physician Insurance Underwriter Sales note has been reviewed by physician. Signing provider agrees with the documented findings, assessment, and plan of care. Objective - Vital Signs Vital signs: Vital Signs Temp 98.6 F 11/03/23 12:46 Pulse 80 11/03/23 12:46 Resp 17 11/03/23 12:46 BP 108/68 11/03/23 12:46 Pulse Ox 98 11/03/23 12:46 FiO2 Intake & Output 11/02/23 11/03/23 11/03/23 18:59 06:59 18:59 Intake Total 830 Output Total 1750 1800 1050 Balance -1750 -970 -1050 Intake: Oral 830 Output: Drainage 300 Bilateral Buttock 300 Urine 1450 1800 900 Stool 150 Other: Voiding Method Indwelling Catheter Indwelling Catheter Indwelling Catheter # Bowel Movements 1 2 - Labs CBC & Chem 7: 11/01/23 12:46 11/01/23 12:46 Labs: Abnormal Lab Results - Last 24 Hours (Table) 11/02/23 11/02/23 11/03/23 Range/Units 17:06 20:10 11:28 POC Glucose (mg/dL) 150 H 142 H 137 H (70-110) mg/dL
[2023-11-03 16:54] LABS: Glucose,Whole Blood 155 mg/dL (70-110)
--- NOTE | 2023-11-03 17:13 | P.PN ---
Subjective Progress Note Date: 11/03/23 Principal diagnosis: Reason for follow-up is sepsis and infected pressure ulcer Patient is a 63-year-old male past medical history significant for diabetes mellitus patient did have a history of pressure ulcer to the sacral and bilateral gluteal area for the patient did have a diverting colostomy to help heal these wounds, admitted to hospital with worsening wound did have a fever elevated white count concerning for sepsis related to his infected wound.Patient is status post surgical debridement of his wound by general surgery on 10/31/2023 mention no significant purulence On today's evaluation that is 11/03/2023, Patient is afebrile patient is currently on room air and denies having any shortness of breath, the patient denies any chest pain or cough, the patient denies any nausea vomiting did not have any abdominal pain and no diarrhea, patient complaining of pain to his wounds and wanted pain medication to be adjusted up. No new labs has been obtained today blood culture has been negative Objective - Vital Signs Vital signs: Vital Signs Temp 98.6 F 11/03/23 12:46 Pulse 80 11/03/23 12:46 Resp 17 11/03/23 12:46 BP 108/68 11/03/23 12:46 Pulse Ox 98 11/03/23 12:46 FiO2 Intake & Output 11/02/23 11/03/23 11/03/23 18:59 06:59 18:59 Intake Total 830 Output Total 1750 1800 1050 Balance -1750 -970 -1050 Intake: Oral 830 Output: Drainage 300 Bilateral Buttock 300 Urine 1450 1800 900 Stool 150 Other: Voiding Method Indwelling Catheter Indwelling Catheter Indwelling Catheter # Bowel Movements 1 2 - Exam GENERAL DESCRIPTION: Middle-age male lying in bed in no distress RESPIRATORY SYSTEM: Unlabored breathing , decreased breath sounds at bases HEART: S1 S2 regular rate and rhythm , ABDOMEN: Soft , no tenderness Wound is currently covered with a wound VAC - Labs CBC & Chem 7: 11/01/23 12:46 11/01/23 12:46 Labs: Abnormal Lab Results - Last 24 Hours (Table) 11/02/23 11/02/23 11/03/23 Range/Units 17:06 20:10 11:28 POC Glucose (mg/dL) 150 H 142 H 137 H (70-110) mg/dL Assessment and Plan (1) Sacral decubitus ulcer, stage IV Current Visit: Yes Status: Acute Code(s): L89.154 - PRESSURE ULCER OF SACRAL REGION, STAGE 4 SNOMED Code(s): 39192123218031 (2) Sepsis Current Visit: Yes Status: Acute Code(s): A41.9 - SEPSIS, UNSPECIFIED ORGANISM SNOMED Code(s): 14506581 (3) Stage III pressure ulcer of left buttock Current Visit: Yes Status: Acute Code(s): L89.323 - PRESSURE ULCER OF LEFT BUTTOCK, STAGE 3 SNOMED Code(s): 28953428200999 (4) Stage III pressure ulcer of right buttock Current Visit: Yes Status: Acute Code(s): L89.313 - PRESSURE ULCER OF RIGHT BUTTOCK, STAGE 3 SNOMED Code(s): 54993244141461 Plan: 1patient presented to hospital with sepsis in this patient who did have fever tachycardia elevated white count source is infected pressure ulcer as the patient was noted to have significant purulent drainage from the right gluteal pressure area 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 please excuse any grammatical, word or spelling errors. Time with Patient: Less than 30
--- NOTE | 2023-11-03 18:28 | P.PN ---
Progress Note - Text Progress Note Date: 11/03/23 Chief Complaint: Not taking care of himself This is a 63-year-old patient, follows with Dr. Mendez. Chronic stable medical conditions include ADHD, herniated disc lower back, smoker. Sacral wounds. Left AKA. right above-knee amputation by Dr. Zee on April 2023 Has been known to, not being compliant. Smoking cigarettes. Recreational drugs. Diverting colostomy with Dr Pabon Patient supposed to follow-up with the wound care center by Dr. Bahean. Has not been that at least on the last 2 visits. Also his colostomy bag was dislodged. His sacral decubitus wound has been deteriorating. Patient states he gets [facility] home care coming out. Apparently has not been taking it himself. He has a son living with him. Patient spiked a fever of 102 in the ER. October 26: Admitted with sepsis from infected decubitus ulcer. ID following for antibiotics. Plan for debridement of sacral ulcer on Tuesday by Dr Pabon. Patient tired. Resume home dose of [place]. Morphine. Resume home oral glycemic October 27: Patient getting IV Unasyn and IV daptomycin. Eating some. Rather sleepy/lethargic. Morphine was discontinued yesterday. Will cut back [place] to 7.5 every 6. Pending debridement on Tuesday10/29/2023 Patient seen this morning awake, alert and oriented being maintained on IV antibiotics in the form of Unasyn and daptomycin with infectious disease following. Blood cultures thus far negative and general surgery following as well with plans of surgical debridement of the decubitus ulcer. Await deep tissue culture finalization to determine discharge antibiotics. Blood sugars have been uncontrolled and will continue with Accu-Cheks before meals and at bedtime and adjust insulins accordingly. Continue local wound care. Patient is afebrile with no reports of chest pain or shortness of breath. Patient reporting his chronic back and leg pain requesting to increase his pain medications. Patient takes a number of medications which have been adjusted as patient was lethargic previously and also continued on morphine. Will continue current regimen for now. Follow-up on repeat labs in the a.m. 10/30/2023 Patient is evaluated today in follow up. He is more awake alert. Remains on IV daptomycin and IV unasyn. ID following closely. He is scheduled to undergo surgical debridement of the sacral wound tomorrow. Wound vac in place. Renal function WNL. 10/31/2023 Patient evaluated in follow up today. Pending surgical debridement of his sacral wound. Deep tissue cultures ordered. Remains on IV unasyn and IV daptomycin. White blood cell count 8.0. He is on room air. His mentation continues to improve although he is requesting an increase in narcotics. 11/01/2023 Patient has underwent surgical debridement of his sacral ulcer. Wound vac in place with serosanguineous drainage. Difficult to seal due to location. Deep surgical cultures taken and pending. Continues on IV unasyn and IV daptomycin for now. He is complaining of increased pain to the wound. Narcotic were cut back due to altered mentation which has since improved. Hemodynamically he is stable. November 02, 2023: Patient status post surgical debridement of the sacral wound. Wound VAC in place. Eating well. Discussed with ID plan for discharge tomorrow after PICC line and IV antibiotics will probably go to [facility]. November 03, 2023: In bed. Comfortable. Oral intake good. Spoke to medical social consultant. Looking for a place where he can be accepted. Was somewhat lethargic yesterday and today. Will DC Dilaudid. Active Medications Acetaminophen (Acetaminophen Tab 325 Mg Tab) 650 mg PO Q6HR PRN PRN Reason: Mild Pain or Fever > 100.5 Last Admin: 10/31/23 20:18 Dose: 650 mg Hydrocodone Bitart/Acetaminophen (Hydrocodone/Apap 7.5-325mg 1 Each Tab) 1 each PO Q6HR PRN PRN Reason: Pain Last Admin: 11/03/23 16:46 Dose: 1 each Amiodarone HCl (Amiodarone 200 Mg Tab) 200 mg PO DAILY [facility] Last Admin: 11/03/23 09:42 Dose: 200 mg Calcium Carbonate/Glycine (Calcium Carbonate 500 Mg Chewable) 1,000 mg PO Q4HR PRN PRN Reason: Dyspepsia Dextrose/Water (Dextrose 50% Syringe 50 Ml) 25 ml IVP PER PROTOCOL PRN; Protocol PRN Reason: Hypoglycemia Dextrose/Water (Dextrose 50% Syringe 50 Ml) 50 ml IVP PER PROTOCOL PRN; Protocol PRN Reason: Hypoglycemia Enoxaparin Sodium (Enoxaparin 40 Mg/0.4 Ml Syringe) 40 mg SQ DAILY [facility] Last Admin: 11/03/23 09:42 Dose: 40 mg Gabapentin (Gabapentin 300 Mg Cap) 300 mg PO TID [facility] Last Admin: 11/03/23 15:03 Dose: 300 mg Hydromorphone HCl (Hydromorphone 0.5 Mg/0.5 Ml Syringe) 0.5 mg IVP Q6HR PRN PRN Reason: Pain Last Admin: 11/03/23 17:37 Dose: 0.5 mg Ampicillin Sodium/Sulbactam (Sodium 3 gm/ Sodium Chloride) 100 mls @ 200 mls/hr IVPB Q6HR [facility]; Protocol Last Admin: 11/03/23 17:36 Dose: 200 mls/hr Lactated Ringer's (Lactated Ringers) 1,000 mls @ 50 mls/hr IV .Q20H [facility] Last Admin: 11/03/23 11:27 Dose: 50 mls/hr Insulin Aspart (Insulin Aspart (Novolog) 100 Unit/Ml Vial) 0 unit SQ [facility]; Protocol Last Admin: 11/03/23 17:36 Dose: 1 unit Insulin Detemir (Insulin Detemir (Levemir) 100 Unit/Ml Syr) 12 unit SQ HS [facility] Last Admin: 11/02/23 20:58 Dose: 12 unit Lactulose (Lactulose 20 Gm/30 Ml Cup) 20 gm PO DAILY PRN PRN Reason: Constipation Last Admin: 10/28/23 15:42 Dose: 20 gm Linagliptin (Linagliptin 5 Mg Tablet) 5 mg PO DAILY [facility] Last Admin: 11/03/23 09:42 Dose: 5 mg Lorazepam (Lorazepam 0.5 Mg Tab) 0.5 mg PO Q6HR PRN PRN Reason: Anxiety Last Admin: 11/02/23 21:00 Dose: 0.5 mg Methocarbamol (Methocarbamol 500 Mg Tab) 500 mg PO QID [facility] Last Admin: 11/03/23 17:36 Dose: 500 mg Naloxone HCl (Naloxone 0.4 Mg/Ml 1 Ml Vial) 0.2 mg IV Q2M PRN PRN Reason: Opioid Reversal Naproxen (Naproxen 250 Mg Tab) 250 mg PO TID [facility] Last Admin: 11/03/23 15:03 Dose: 250 mg Ondansetron HCl (Ondansetron 4 Mg/2 Ml Vial) 4 mg IVP Q8HR PRN PRN Reason: Nausea And Vomiting Last Admin: 10/31/23 10:48 Dose: 4 mg Tamsulosin HCl (Tamsulosin 0.4 Mg Cap.Er.24h) 0.4 mg PO DAILY [facility] Last Admin: 11/03/23 09:42 Dose: 0.4 mg Temazepam (Temazepam 15 Mg Cap) 15 mg PO HS [facility] Last Admin: 11/02/23 20:58 Dose: 15 mg Past medical history to include: Diabetes, possible ADHD, chronic low back pain, herniated disc, atrial fibrillation. COPD. left above-knee amputation. Right below-knee amputation. Sacral wound Social history: Son lives with the patient. 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 Smokes about a pack a day, now down to a few cigarettes a day. Alcohol occasionally. Marijuana Physical examination: VITAL SIGNS: 98.2, 76, 18, 1 one 3 x 71, 97% room air GENERAL: Laying in bed, appears sleepy EYES: Pupils equal. Conjunctiva normal. HEENT: External appearance of nose and ears normal, NG tube to suction NECK: JVD not raised; masses not palpable. HEART: First and second heart sounds are normal; no edema. LUNGS: Respiratory rate increased l; decreased breath sounds. ABDOMEN: Soft, left-sided colostomy-back PSYCH: Sleepy but able to answer questions appropriately MUSCULOSKELETAL: Left and right above-knee amputation, incisions with rosetta healing well. Sacral wound. NEUROLOGICAL: Moving all 4 limbs. INVESTIGATIONS, reviewed in the clinical context: October 31: White count 8 hemoglobin 10.2 platelets 413 potassium 5.1 creatinine 0.5 October 27: White count 9.9 hemoglobin 10 platelets 535 October 26: White count 12.8 hemoglobin 10.9 potassium 4.7 creatinine 0.32 October 26, 2023: White count 16.1 hemoglobin 12.3 platelets 667 sodium 135 potassium 4.6 BUN 10 creatinine 0.4 lactic acid 3.3 Urine drug screen positive for opiates, amphetamines, methamphetamines, marijuana Influenza type A, B, RSV, COVID-19 not detected EKG tracing personally reviewed by me-normal sinus rhythm Chest x-ray film personally reviewed by me-hyperinflation Assessment and plan: -Sepsis from infected chronic decubitus wound/sacrum: Improving ID: IV Unasyn IV daptomycin -Some metabolic encephalopathy from recreational drugs. And sepsis: Much improved -Urine drug screen positive for methamphetamines, amphetamines, opiates, marijuana -Left and right above-knee amputation -Sacral decubitus ulcer, stage IV. With prior history of acute osteomyelitis.: Causing sepsis ID following Dr Pabon-carried out debridement on October 30 -Paroxysmal atrial fibrillation: sinus rhythm Amiodarone. Lopressor. -Diabetes mellitus type 2, chronically on insulin Levemir. Follow Accu-Cheks sliding scale Januvia -COPD in a current smoker Bronchodilators as needed -Chronic nicotine dependence, cigarette smoker Nicotine patch -Chronic medical debility. Non-ambulatory -Full code ILA Alexandre. 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 Past Medical History Past Medical History: Diabetes Mellitus Additional Past Medical History / Comment(s): pressure ulcers[Buttock,simone heals ,rt lateral foot]. BLOOD "ECOLI" INFECTION. History of Any Multi-Drug Resistant Organisms: None Reported Past Surgical History: Orthopedic Surgery Additional Past Surgical History / Comment(s): back pain son states pt recently "slipped a disc" taking gabapentin. Left leg above the knee amputation. RLE AKA. MICHELLE PICC LINE. Past Anesthesia/Blood Transfusion Reactions: No Reported Reaction Past Psychological History: No Psychological Hx Reported Smoking Status: Current every day smoker Past Alcohol Use History: Rare Past Drug Use History: None Reported
[2023-11-03 20:10] LABS: Glucose,Whole Blood 172 mg/dL (70-110)
[2023-11-04 07:06] LABS: Glucose,Whole Blood 138 mg/dL (70-110)
[2023-11-04 12:13] LABS: Glucose,Whole Blood 109 mg/dL (70-110)
--- NOTE | 2023-11-04 14:03 | P.PN ---
Subjective Progress Note Date: 11/04/23 CHIEF COMPLAINT: Sacral decubitus ulcers HISTORY OF PRESENT ILLNESS: Patient is postop day #4 status post debridement of sacral decubitus ulcer. Pain controlled. Patient has wound VAC in place. Patient status post PICC line placement. afebrile. PHYSICAL EXAM: VITAL SIGNS: Reviewed. GENERAL: no acute distress. SKIN: wound vac in place ASSESSMENT: 1. Stage IV sacral decubitus ulcers 2. Sepsis present on admission PLAN: -Continue wound VAC -Patient can be discharged from surgical standpoint when medically cleared -Antibiotics per infectious disease Physician Warp Spooler note has been reviewed by physician. Signing provider agrees with the documented findings, assessment, and plan of care. Objective - Vital Signs Vital signs: Vital Signs Temp 98.5 F 11/04/23 12:38 Pulse 87 11/04/23 12:38 Resp 18 11/04/23 12:38 BP 109/69 11/04/23 12:38 Pulse Ox 97 11/04/23 12:38 FiO2 Intake & Output 11/03/23 11/04/23 11/04/23 18:59 06:59 18:59 Output Total 1475 2200 1750 Balance -1475 -2200 -1750 Output: Drainage 450 450 Bilateral Buttock 450 450 Urine 1325 1400 1300 Stool 150 350 Other: Voiding Method Indwelling Catheter Indwelling Catheter Indwelling Catheter # Bowel Movements 1 - Labs CBC & Chem 7: 11/01/23 12:46 11/01/23 12:46 Labs: Abnormal Lab Results - Last 24 Hours (Table) 11/03/23 11/03/23 11/04/23 Range/Units 16:52 20:08 07:05 POC Glucose (mg/dL) 155 H 172 H 138 H (70-110) mg/dL
[2023-11-04 17:22] LABS: Glucose,Whole Blood 174 mg/dL (70-110)
--- NOTE | 2023-11-04 20:03 | P.PN ---
Subjective Progress Note Date: 11/04/23 Principal diagnosis: Reason for follow-up is sepsis and infected pressure ulcer Patient is a 63-year-old male past medical history significant for diabetes mellitus patient did have a history of pressure ulcer to the sacral and bilateral gluteal area for the patient did have a diverting colostomy to help heal these wounds, admitted to hospital with worsening wound did have a fever elevated white count concerning for sepsis related to his infected wound.Patient is status post surgical debridement of his wound by general surgery on 10/31/2023 mention no significant purulence On today's evaluation that is 11/04/2023, patient has been afebrile, patient is breathing comfortably and is currently on room air, patient denies having any significant cough no chest pain shortness of breath, patient denies nausea vomiting, has been complaining of mostly pain to his wound and wants more pain medication. No new labs has been obtained today Objective - Vital Signs Vital signs: Vital Signs Temp 97.9 F 11/04/23 07:06 Pulse 86 11/04/23 07:06 Resp 17 11/04/23 07:06 BP 127/74 11/04/23 07:06 Pulse Ox 97 11/04/23 07:06 FiO2 Intake & Output 11/03/23 11/04/23 11/04/23 18:59 06:59 18:59 Output Total 1475 2200 450 Balance -1475 -2200 -450 Output: Drainage 450 450 Bilateral Buttock 450 450 Urine 1325 1400 Stool 150 350 Other: Voiding Method Indwelling Catheter Indwelling Catheter Indwelling Catheter # Bowel Movements 1 - Exam GENERAL DESCRIPTION: Middle-age male lying in bed in no distress RESPIRATORY SYSTEM: Unlabored breathing , decreased breath sounds at bases HEART: S1 S2 regular rate and rhythm , ABDOMEN: Soft , no tenderness Wound is currently covered with a wound VAC - Labs CBC & Chem 7: 11/01/23 12:46 11/01/23 12:46 Labs: Abnormal Lab Results - Last 24 Hours (Table) 11/03/23 11/03/23 11/04/23 Range/Units 16:52 20:08 07:05 POC Glucose (mg/dL) 155 H 172 H 138 H (70-110) mg/dL Assessment and Plan (1) Sacral decubitus ulcer, stage IV Current Visit: Yes Status: Acute Code(s): L89.154 - PRESSURE ULCER OF SACRAL REGION, STAGE 4 SNOMED Code(s): 73458487977634 (2) Sepsis Current Visit: Yes Status: Acute Code(s): A41.9 - SEPSIS, UNSPECIFIED ORGANISM SNOMED Code(s): 02258524 (3) Stage III pressure ulcer of left buttock Current Visit: Yes Status: Acute Code(s): L89.323 - PRESSURE ULCER OF LEFT BUTTOCK, STAGE 3 SNOMED Code(s): 26199989999820 (4) Stage III pressure ulcer of right buttock Current Visit: Yes Status: Acute Code(s): L89.313 - PRESSURE ULCER OF RIGHT BUTTOCK, STAGE 3 SNOMED Code(s): 90147307653802 Plan: 1patient presented to hospital with sepsis in this patient who did have fever tachycardia elevated white count source is infected pressure ulcer as the patient was noted to have significant purulent drainage from the right gluteal pressure area 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 please excuse any grammatical, word or spelling errors. Time with Patient: Less than 30
[2023-11-04 20:41] LABS: Glucose,Whole Blood 207 mg/dL (70-110)
[2023-11-04] MEDS: PSYLLIUM HUSK 100% 6 GM PACKET PO SCH (21:00)
--- NOTE | 2023-11-04 21:49 | P.PN ---
Progress Note - Text Progress Note Date: 11/04/23 Chief Complaint: Not taking care of himself This is a 63-year-old patient, follows with Dr. Mendez. Chronic stable medical conditions include ADHD, herniated disc lower back, smoker. Sacral wounds. Left AKA. right above-knee amputation by Dr. Zee on April 2023 Has been known to, not being compliant. Smoking cigarettes. Recreational drugs. Diverting colostomy with Dr Pabon Patient supposed to follow-up with the wound care center by Dr. Bahena. Has not been that at least on the last 2 visits. Also his colostomy bag was dislodged. His sacral decubitus wound has been deteriorating. Patient states he gets [facility] home care coming out. Apparently has not been taking it himself. He has a son living with him. Patient spiked a fever of 102 in the ER. October 26: Admitted with sepsis from infected decubitus ulcer. ID following for antibiotics. Plan for debridement of sacral ulcer on Tuesday by Dr Pabon. Patient tired. Resume home dose of [place]. Morphine. Resume home oral glycemic October 27: Patient getting IV Unasyn and IV daptomycin. Eating some. Rather sleepy/lethargic. Morphine was discontinued yesterday. Will cut back [place] to 7.5 every 6. Pending debridement on Tuesday10/29/2023 Patient seen this morning awake, alert and oriented being maintained on IV antibiotics in the form of Unasyn and daptomycin with infectious disease following. Blood cultures thus far negative and general surgery following as well with plans of surgical debridement of the decubitus ulcer. Await deep tissue culture finalization to determine discharge antibiotics. Blood sugars have been uncontrolled and will continue with Accu-Cheks before meals and at bedtime and adjust insulins accordingly. Continue local wound care. Patient is afebrile with no reports of chest pain or shortness of breath. Patient reporting his chronic back and leg pain requesting to increase his pain medications. Patient takes a number of medications which have been adjusted as patient was lethargic previously and also continued on morphine. Will continue current regimen for now. Follow-up on repeat labs in the a.m. 10/30/2023 Patient is evaluated today in follow up. He is more awake alert. Remains on IV daptomycin and IV unasyn. ID following closely. He is scheduled to undergo surgical debridement of the sacral wound tomorrow. Wound vac in place. Renal function WNL. 10/31/2023 Patient evaluated in follow up today. Pending surgical debridement of his sacral wound. Deep tissue cultures ordered. Remains on IV unasyn and IV daptomycin. White blood cell count 8.0. He is on room air. His mentation continues to improve although he is requesting an increase in narcotics. 11/01/2023 Patient has underwent surgical debridement of his sacral ulcer. Wound vac in place with serosanguineous drainage. Difficult to seal due to location. Deep surgical cultures taken and pending. Continues on IV unasyn and IV daptomycin for now. He is complaining of increased pain to the wound. Narcotic were cut back due to altered mentation which has since improved. Hemodynamically he is stable. November 02, 2023: Patient status post surgical debridement of the sacral wound. Wound VAC in place. Eating well. Discussed with ID plan for discharge tomorrow after PICC line and IV antibiotics will probably go to ECF. November 03, 2023: In bed. Comfortable. Oral intake good. Spoke to social media sr strategy manager. Looking for a place where he can be accepted. Was somewhat lethargic yesterday and today. Will DC Dilaudid. November 03: Patient is more awake. Eating better. Pain medication explained. Spoke to onsite case manager. Looking into places for discharge. Active Medications Acetaminophen (Acetaminophen Tab 325 Mg Tab) 650 mg PO Q6HR PRN PRN Reason: Mild Pain or Fever > 100.5 Last Admin: 10/31/23 20:18 Dose: 650 mg Hydrocodone Bitart/Acetaminophen (Hydrocodone/Apap 7.5-325mg 1 Each Tab) 1 each PO Q6HR PRN PRN Reason: Pain Last Admin: 11/04/23 21:04 Dose: 1 each Amiodarone HCl (Amiodarone 200 Mg Tab) 200 mg PO DAILY [facility] Last Admin: 11/04/23 08:48 Dose: 200 mg Calcium Carbonate/Glycine (Calcium Carbonate 500 Mg Chewable) 1,000 mg PO Q4HR PRN PRN Reason: Dyspepsia Dextrose/Water (Dextrose 50% Syringe 50 Ml) 25 ml IVP PER PROTOCOL PRN; Protocol PRN Reason: Hypoglycemia Dextrose/Water (Dextrose 50% Syringe 50 Ml) 50 ml IVP PER PROTOCOL PRN; Protocol PRN Reason: Hypoglycemia Enoxaparin Sodium (Enoxaparin 40 Mg/0.4 Ml Syringe) 40 mg SQ DAILY [facility] Last Admin: 11/04/23 08:48 Dose: 40 mg Gabapentin (Gabapentin 300 Mg Cap) 300 mg PO TID [facility] Last Admin: 11/04/23 15:55 Dose: 300 mg Ampicillin Sodium/Sulbactam (Sodium 3 gm/ Sodium Chloride) 100 mls @ 200 mls/hr IVPB Q6HR [facility]; Protocol Last Admin: 11/04/23 17:32 Dose: 200 mls/hr Lactated Ringer's (Lactated Ringers) 1,000 mls @ 50 mls/hr IV .Q20H [facility] Last Admin: 11/04/23 06:15 Dose: 50 mls/hr Insulin Aspart (Insulin Aspart (Novolog) 100 Unit/Ml Vial) 0 unit SQ ACHS [facility]; Protocol Last Admin: 11/04/23 21:00 Dose: 2 unit Insulin Detemir (Insulin Detemir (Levemir) 100 Unit/Ml Syr) 12 unit SQ HS [facility] Last Admin: 11/04/23 20:59 Dose: 12 unit Lactulose (Lactulose 20 Gm/30 Ml Cup) 20 gm PO DAILY PRN PRN Reason: Constipation Last Admin: 10/28/23 15:42 Dose: 20 gm Linagliptin (Linagliptin 5 Mg Tablet) 5 mg PO DAILY [facility] Last Admin: 11/04/23 08:49 Dose: 5 mg Lorazepam (Lorazepam 0.5 Mg Tab) 0.5 mg PO Q6HR PRN PRN Reason: Anxiety Last Admin: 11/04/23 15:55 Dose: 0.5 mg Methocarbamol (Methocarbamol 500 Mg Tab) 500 mg PO QID [facility] Last Admin: 11/04/23 17:33 Dose: 500 mg Naloxone HCl (Naloxone 0.4 Mg/Ml 1 Ml Vial) 0.2 mg IV Q2M PRN PRN Reason: Opioid Reversal Naproxen (Naproxen 250 Mg Tab) 250 mg PO TID [facility] Last Admin: 11/04/23 15:55 Dose: 250 mg Ondansetron HCl (Ondansetron 4 Mg/2 Ml Vial) 4 mg IVP Q8HR PRN PRN Reason: Nausea And Vomiting Last Admin: 10/31/23 10:48 Dose: 4 mg Psyllium Hydrophilic Mucilloid (Psyllium Husk 100% 6 Gm Packet) 6 gm PO BID [facility] Last Admin: 11/04/23 21:00 Dose: 6 gm Tamsulosin HCl (Tamsulosin 0.4 Mg Cap.Er.24h) 0.4 mg PO DAILY [facility] Last Admin: 11/04/23 08:48 Dose: 0.4 mg Temazepam (Temazepam 15 Mg Cap) 15 mg PO HS [facility] Last Admin: 11/03/23 20:28 Dose: 15 mg Past medical history to include: Diabetes, possible ADHD, chronic low back pain, herniated disc, atrial fibrillation. COPD. left above-knee amputation. Right below-knee amputation. Sacral wound Social history: Son lives with the patient. 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 Smokes about a pack a day, now down to a few cigarettes a day. Alcohol occasionally. Marijuana Physical examination: VITAL SIGNS: 98.4, 94, 16, 1 one 4 x 73, 99% room air GENERAL: Laying in bed, more awake, eating lunch EYES: Pupils equal. Conjunctiva normal. HEENT: External appearance of nose and ears normal, NG tube to suction NECK: JVD not raised; masses not palpable. HEART: First and second heart sounds are normal; no edema. LUNGS: Respiratory rate increased l; decreased breath sounds. ABDOMEN: Soft, left-sided colostomy-back PSYCH: More awake answering questions appropriately MUSCULOSKELETAL: Left and right above-knee amputation, incisions with rosetta healing well. Sacral wound. NEUROLOGICAL: Moving all 4 limbs. INVESTIGATIONS, reviewed in the clinical context: October 31: White count 8 hemoglobin 10.2 platelets 413 potassium 5.1 creatinine 0.5 October 27: White count 9.9 hemoglobin 10 platelets 535 October 26: White count 12.8 hemoglobin 10.9 potassium 4.7 creatinine 0.32 October 26, 2023: White count 16.1 hemoglobin 12.3 platelets 667 sodium 135 potassium 4.6 BUN 10 creatinine 0.4 lactic acid 3.3 Urine drug screen positive for opiates, amphetamines, methamphetamines, marijuana Influenza type A, B, RSV, COVID-19 not detected EKG tracing personally reviewed by me-normal sinus rhythm Chest x-ray film personally reviewed by me-hyperinflation Assessment and plan: -Sepsis from infected chronic decubitus wound/sacrum: Improving ID: IV Unasyn IV daptomycin -Some metabolic encephalopathy from recreational drugs. And sepsis: Much improved -Urine drug screen positive for methamphetamines, amphetamines, opiates, marijuana -Left and right above-knee amputation -Sacral decubitus ulcer, stage IV. With prior history of acute osteomyelitis.: Causing sepsis ID following Dr Pabon-carried out debridement on October 30 -Paroxysmal atrial fibrillation: sinus rhythm Amiodarone. Lopressor. -Diabetes mellitus type 2, chronically on insulin Levemir. Follow Accu-Cheks sliding scale Januvia -COPD in a current smoker Bronchodilators as needed -Chronic nicotine dependence, cigarette smoker Nicotine patch -Chronic medical debility. Non-ambulatory -Full code Continue current medication. Pending placement Past Medical History Past Medical History: Diabetes Mellitus Additional Past Medical History / Comment(s): pressure ulcers[Buttock,simone heals ,rt lateral foot]. BLOOD "ECOLI" INFECTION. History of Any Multi-Drug Resistant Organisms: None Reported Past Surgical History: Orthopedic Surgery Additional Past Surgical History / Comment(s): back pain son states pt recently "slipped a disc" taking gabapentin. Left leg above the knee amputation. RLE AKA. MICHELLE PICC LINE. Past Anesthesia/Blood Transfusion Reactions: No Reported Reaction Past Psychological History: No Psychological Hx Reported Smoking Status: Current every day smoker Past Alcohol Use History: Rare Past Drug Use History: None Reported
[2023-11-05 07:06] LABS: Glucose,Whole Blood 122 mg/dL (70-110)
[2023-11-05 11:50] LABS: Glucose,Whole Blood 207 mg/dL (70-110)
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
[2023-11-05 13:17] VITALS: BP 121/78; PULSE 108; RESP 16; TEMP 97.9
--- NOTE | 2023-11-12 22:21 | P.PN ---
Subjective Progress Note Date: 11/05/23 Principal diagnosis: Reason for follow-up is sepsis and infected pressure ulcer Patient is a 63-year-old male past medical history significant for diabetes mellitus patient did have a history of pressure ulcer to the sacral and bilateral gluteal area for the patient did have a diverting colostomy to help heal these wounds, admitted to hospital with worsening wound did have a fever elevated white count concerning for sepsis related to his infected wound.Patient is status post surgical debridement of his wound by general surgery on 10/31/2023 mention no significant purulence On today's evaluation that is 11/05/2023, patient continues to be afebrile, patient is breathing comfortably on room air, patient denies cough no chest pain shortness of breath, patient denies nausea vomiting, has been complaining of mostly pain to his wound and asking for more pain medication No new labs has been obtained today Objective - Vital Signs Vital signs: Vital Signs Temp 97.7 F 11/05/23 07:01 Pulse 90 11/05/23 07:01 Resp 14 11/05/23 07:01 BP 134/77 11/05/23 07:01 Pulse Ox 98 11/05/23 07:01 FiO2 Intake & Output 11/04/23 11/05/23 11/05/23 18:59 06:59 18:59 Intake Total 1700 Output Total 2700 1100 1000 Balance -2700 600 -1000 Intake: Intake, IV Titration 750 Amount Ampicillin-Sulbactam 3 gm 200 In Sodium Chloride 0.9% 100 ml @ 200 mls/hr IVPB Q6HR [facility] Rx#:[id number] Lactated Ringers 1,000 ml 550 @ 50 mls/hr IV .Q20H [facility] Rx#:[id number] Oral 950 Output: Drainage 900 Bilateral Buttock 900 Urine 1800 1100 1000 Other: Voiding Method Indwelling Catheter Indwelling Catheter Indwelling Catheter # Bowel Movements 1 1 - Exam GENERAL DESCRIPTION: Middle-age male lying in bed in no distress RESPIRATORY SYSTEM: Unlabored breathing , decreased breath sounds at bases HEART: S1 S2 regular rate and rhythm , ABDOMEN: Soft , no tenderness Wound is currently covered with a wound VAC - Labs CBC & Chem 7: 11/01/23 12:46 11/01/23 12:46 Labs: Abnormal Lab Results - Last 24 Hours (Table) 11/04/23 11/04/23 11/05/23 Range/Units 17:20 20:40 07:05 POC Glucose (mg/dL) 174 H 207 H 122 H (70-110) mg/dL Assessment and Plan (1) Sacral decubitus ulcer, stage IV Status: Acute Code(s): L89.154 - PRESSURE ULCER OF SACRAL REGION, STAGE 4 SNOMED Code(s): 37943841097740 (2) Sepsis Status: Acute Code(s): A41.9 - SEPSIS, UNSPECIFIED ORGANISM SNOMED Code(s): 08212593 (3) Stage III pressure ulcer of left buttock Status: Acute Code(s): L89.323 - PRESSURE ULCER OF LEFT BUTTOCK, STAGE 3 SNOMED Code(s): 25890662421888 (4) Stage III pressure ulcer of right buttock Status: Acute Code(s): L89.313 - PRESSURE ULCER OF RIGHT BUTTOCK, STAGE 3 SNOMED Code(s): 54986255213728 Plan: 1patient presented to hospital with sepsis in this patient who did have fever tachycardia elevated white count source is infected pressure ulcer as the patient was noted to have significant purulent drainage from the right gluteal pressure area 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 please excuse any grammatical, word or spelling errors. Time with Patient: Less than 30
== END 2023-11-05 14:48 | DRG 853 ==
LOC: EC 16:19 → 3SCARD 19:00 → 5NMEDONC 11-01 17:56
PROVIDERS: ADMIT Hospitalist; ATTEND Hospitalist
PROC: 0JB70ZZ Excision of Back Subcutaneous Tissue and Fascia, Open Approach (ICD-10-PCS; principal; 2023-10-31 11:00)
PROC: 02HV33Z Insertion of Infusion Device into Superior Vena Cava, Percutaneous Approach (ICD-10-PCS; 2023-11-03)
PROC: B5181ZA Fluoroscopy of Superior Vena Cava using Low Osmolar Contrast, Guidance (ICD-10-PCS; 2023-11-03)
PROC: B548ZZA Ultrasonography of Superior Vena Cava, Guidance (ICD-10-PCS; 2023-11-03)
DX: A41.9 Sepsis, unspecified organism (principal); E43 Unspecified severe protein-calorie malnutrition; L89.154 Pressure ulcer of sacral region, stage 4; L89.313 Pressure ulcer of right buttock, stage 3; L89.323 Pressure ulcer of left buttock, stage 3; G93.41 Metabolic encephalopathy; J44.0 Chronic obstructive pulmonary disease with (acute) lower respiratory infection; Z68.1 Body mass index [BMI] 19.9 or less, adult; R62.7 Adult failure to thrive; Z89.611 Acquired absence of right leg above knee; I48.0 Paroxysmal atrial fibrillation; Z79.01 Long term (current) use of anticoagulants; F90.9 Attention-deficit hyperactivity disorder, unspecified type; G89.29 Other chronic pain; F17.210 Nicotine dependence, cigarettes, uncomplicated; L98.499 Non-pressure chronic ulcer of skin of other sites with unspecified severity; E11.65 Type 2 diabetes mellitus with hyperglycemia; Z79.4 Long term (current) use of insulin; Z71.6 Tobacco abuse counseling; Z89.612 Acquired absence of left leg above knee; Z89.511 Acquired absence of right leg below knee; Z87.19 Personal history of other diseases of the digestive system; Z93.3 Colostomy status; M54.50 Low back pain, unspecified; E11.622 Type 2 diabetes mellitus with other skin ulcer; Z79.84 Long term (current) use of oral hypoglycemic drugs; Z79.899 Other long term (current) drug therapy; Z82.49 Family history of ischemic heart disease and other diseases of the circulatory system
CPT/HCPCS: 36415; 36573; 71045; 71046; 72192; 80048; 80053; 80306; 81001; 83605; 83735; 85025; 85652; 86140; 87040; 87636; 96361; 96365; 96366; 96375; 96376; 99285